=== PATIENT | female | born 1970 | race Two or more races ===

== ENCOUNTER 2024-09-18 23:53 | Emergency (ER) | payer MEDICARE, MEDICAID, SELFPAY ==
[2024-09-18 23:55] VITALS: BP 171/85; PULSE 79; TEMP 37.2; O2SAT 98; BMI 28.2
--- NOTE | 2024-09-19 00:14 | ED.FALL1 ---
HPI HPI - Fall General Chief Complaint: Fall Stated Complaint: Fall Time Seen by Provider: 09/18/24 23:59 Source: patient Mode of arrival: ambulance Limitations: no limitations History of Present Illness HPI Narrative: past history of paralysis of her lower extremities. Describes an infection of her spine. Resides at assisted. States her left leg recovered first and then her right. states the right leg is smaller than the left due to the late development in regaining use of the right leg She now ambulates with a walker. States she was standing with the walker and stretching her right leg when she fell with her right knee flexed . complains of pain of her right ankle and right tibia. denies pain of her right femur or her hips . Denies injury elsewhere. Denies injury to her head or back or upper extremities. Here to have her right lower extremity evaluated Related Data Allergies Allergy/AdvReac Type Severity Reaction Status Date / Time No Known Drug Allergies Allergy Verified 09/19/24 00:22 Opioid HPI Opioid Management Most Recent Pain and Opioid Data: No Data to Display Review of Systems ROS Status of ROS 10 or more systems reviewed and unremarkable except as noted in history and below PFSH PFSH Social History Little interest or pleasure in doing things: not at all Feeling down, depressed, or hopeless: not at all Exam Constitutional Vital Signs, click to edit/add: Last Vital Signs Temp 99 F 09/18/24 23:55 Pulse 79 09/18/24 23:55 Resp 18 09/18/24 23:55 BP 125/62 09/19/24 03:42 Pulse Ox 98 09/18/24 23:55 O2 Del Method Room Air 09/18/24 23:55 Common normals: no apparent distress, average body habitus, oriented x3, no limitations, healthy appearing, alert and well nourished [facility] Common normals: normocephalic and head/scalp atraumatic Neck & C-Spine Common normals: full ROM Respiratory Common normals: normal respiratory effort, no retractions, no use of accessory muscles and clear to auscultation bilaterally Cardio Common normals: regular rate, regular rhythm, S1 normal heart sound and S2 normal heart sound GI Common normals: Normal to inspection, nondistended, normoactive bowel sounds present, soft to palpation and non-tender Extremity Other: mild tenderness right lat tibia and right medial ankle. no swelling, discoloration or deformity right leg is smaller than left Neuro Common normals: oriented x3, CN's II-XII intact bilaterally and moves all extremities Psych Appearance: grossly normal Course Vital Signs Vital signs: Vital Signs Temperature 99 F 09/18/24 23:55 Pulse Rate 79 09/18/24 23:55 Respiratory Rate 18 09/18/24 23:55 Blood Pressure 171/85 H 09/18/24 23:55 Pulse Oximetry 98 09/18/24 23:55 Oxygen Delivery Method Room Air 09/18/24 23:55 Temperature 99 F 09/18/24 23:55 Pulse Rate 79 09/18/24 23:55 Respiratory Rate 18 09/18/24 23:55 Blood Pressure 125/62 09/19/24 03:42 Pulse Oximetry 98 09/18/24 23:55 Oxygen Delivery Method Room Air 09/18/24 23:55 MDM - Fall MDM Narrative Medical decision making narrative: patient fell at assisted and injured right leg and ankle. xray with nondisplaced fracture of the proximal fibular. Patient informed of the above. Leg placed in a splint and patient discharged home to followup with orthopedics Imaging Data Chest x-ray: Radiologist's impression: ITS Impressions Ankle X-Ray 09/19/24 00:19 IMPRESSION: No acute fracture. Probable small reactive ankle mortise effusion. Electronically authenticated by: SHAINA FIGUEROA Date: 09/19/2024 03:49 Tibia/Fibula X-Ray 09/19/24 00:19 IMPRESSION: 1. Proximal right fibular fracture as described. Electronically authenticated by: Arnel BARONE Date: 09/19/2024 03:16 Discharge Plan Discharge Chief Complaint: Fall Clinical Impression: Closed right fibular fracture Patient Disposition: Home, Self-Care Mode of Transportation: EMS Print Language: Upper Sorbian Instructions: Leg Fracture (ED) Additional Instructions: follow up with Dr hawkins Referrals: LEYDI CERRATO [Primary Care Provider] - 1 week Procedures ED Procedure Instructions Procedures Procedures: proximal right fibular fracture. Long leg # 4 fiber glass splint applied and held in place with scarlet bandages. Patient tolerated well. N/V intact
--- NOTE | 2024-09-19 00:19 | XR_ITS ---
The [address] [address] Patient Name: GEOVANNY MEJÍA MRN: [id number] date: 1970 Sex: F Assigned Patient Location: ER Current Patient Location: ED.MAIN Accession/Order Number: [id number] Exam Date: 09/19/2024 00:30 Report Date: 09/19/2024 03:16 At the request of: CANDICE CERDA Procedure: XR tibia fibula RT 2V EXAM: XR tibia fibula RT 2V HISTORY: injury COMPARISON: None. TECHNIQUE: 2 views of the right tibia and fibula were obtained. FINDINGS: There is a mildly displaced fracture through the proximal right fibular diametaphysis. There are mild degenerative changes of the right knee. There is no significant right ankle joint effusion. XR/XR tibia fibula RT 2V IMPRESSION: 1. Proximal right fibular fracture as described. Electronically authenticated by: Arnel BARONE Date: 09/19/2024 03:16
--- NOTE | 2024-09-19 00:19 | XR_ITS ---
The [address] [address] Patient Name: GEOVANNY MEJÍA MRN: [id number] date: 1970 Sex: F Assigned Patient Location: ER Current Patient Location: ED.MAIN Accession/Order Number: [id number] Exam Date: 09/19/2024 00:30 Report Date: 09/19/2024 03:49 At the request of: CANDICE CERDA Procedure: XR ankle RT min 3V EXAM: XR ankle RT min 3V HISTORY: injury COMPARISON: None. TECHNIQUE: 2 view right ankle FINDINGS: No acute fracture. No acute subluxation or dislocation. Soft tissue swelling overlying lateral malleolus. Remaining soft tissues are intact. There is suggestion of nonlayering joint effusion or ankle mortise. Osseous demineralization. No destructive or erosive bone changes. XR/XR ankle RT min 3V IMPRESSION: No acute fracture. Probable small reactive ankle mortise effusion. Electronically authenticated by: SHAINA FIGUEROA Date: 09/19/2024 03:49
[2024-09-19] MEDS: OXYCODONE HCL/ACETAMINOPHEN 5MG/325MG 2 TAB PO ×2 (00:42→08:37)
[2024-09-19] MEDS: ORPHENADRINE CITRATE 100 MG TABLET.ER PO (02:30)
[2024-09-19 03:42] VITALS: BP 125/62
== END 2024-09-19 09:44 | disposition home or self-care (01) ==
PROVIDERS: Emergency Provider Internal Medicine; PCP Family Medicine
DX: S82.401A Unspecified fracture of shaft of right fibula, initial encounter for closed fracture (principal); W19.XXXA Unspecified fall, initial encounter
CPT/HCPCS: 29505; 73590; 73610; 99283

== ENCOUNTER 2024-11-08 10:51 | Outpatient (OUT) | payer MEDICARE, MEDICAID, SELFPAY ==
--- NOTE | 2024-11-08 | XR_ITS ---
[address] [address] Patient Name: GEOVANNY MEJÍA MRN: [id number] date: 1970 Sex: F Assigned Patient Location: Current Patient Location: Accession/Order Number: [id number] Exam Date: 11/08/2024 10:55 Report Date: 11/09/2024 09:03 At the request of: SONAM BELL Procedure: XR tibia fibula RT 2V PROCEDURE: XR tibia fibula RT 2V COMPARISON: 09/19/2024 HISTORY: RIGHT LOWER LEG PAIN FINDINGS: BONES:Stable healing proximal fibular neck fracture. Suspected subacute distal posterior tibial/posterior malleolus fracture. Interval bone formation with incomplete bony bridging. Moderate degenerative changes of the knee and hindfoot. Permeative pattern of the hindfoot suggest developing osteopenia SOFT TISSUES:Negative. No visible soft tissue swelling. EFFUSION:None visible. OTHER: Negative. XR/XR tibia fibula RT 2V IMPRESSION: Stable healing proximal fibular Suspected subacute posterior malleolus fracture Electronically authenticated by: NIURKA DOMINIQUE Date: 11/09/2024 09:03
== END 2024-11-08 10:52 | disposition home or self-care (01) ==
LOC: EC 10:51
PROVIDERS: PCP Family Medicine; Visit Provider Orthopaedic Surgery
DX: S82.391D Other fracture of lower end of right tibia, subsequent encounter for closed fracture with routine healing (principal)
CPT/HCPCS: 73590

== ENCOUNTER 2024-12-06 08:49 | Outpatient (OUT) | payer MEDICARE, MEDICAID, SELFPAY ==
--- NOTE | 2024-12-06 | XR_ITS ---
[address] [address] Patient Name: GEOVANNY MEJÍA MRN: [id number] date: 1970 Sex: F Assigned Patient Location: Current Patient Location: Accession/Order Number: [id number] Exam Date: 12/06/2024 08:55 Report Date: 12/06/2024 13:43 At the request of: SONAM BELL Procedure: XR tibia fibula RT 2V PROCEDURE: XR tibia fibula RT 2V COMPARISON: None. HISTORY: RIGHT LOWER LEG PAIN FINDINGS: BONES:Stable healing proximal fibular metadiaphyseal fracture with slight increase in bone formation and bony bridging. Contour deformity of the distal tibia suspicious for subacute fracture. No new fracture or dislocation. Degenerative changes of the knee and ankle SOFT TISSUES:Negative. No visible soft tissue swelling. EFFUSION:None visible. OTHER: Negative. XR/XR tibia fibula RT 2V IMPRESSION: Stable healing fractures Electronically authenticated by: NIURKA DOMINIQUE Date: 12/06/2024 13:43
--- OUTSIDE RECORDS SUMMARY | 2024-12-06 09:09 | XMS_ITS | CCD ---
Author Organization [facility] CliniSyny Care Team Providers Care Furniture Assembler Name Role Phone System, Provider Not In Primary Care Provider Un available SYSTEM, PROVIDER NOT IN Primary Care Unavaila ble ANETA VALDERRAMA Attending Unavailable None, Physician Primary Care Provider None, Physician Other Provider MD David Elena Admit Provider [phone] Darrell (ID)MD Jaret Other Provider MD Alec Clemons Other Provider [phone] MD Troy Garber Attending Provider DO Valeriy Cantu Jr Other Provider SYSTEM, PROVIDER NOT IN Primary Care Unavaila JASVIR Lainez Attending Unavaila ble SYSTEM, PROVIDER NOT IN Primary Care Unavaila SHA Servin Attending Unavailable SYSTEM, PROVIDER NOT IN Primary Care Unavaila SHA Servin Attending Unavailable SYSTEM, PROVIDER NOT IN Primary Care Unavaila ble BEA GUNDERSON Attending Unavailab le None, Physician Primary Care Provider None, Physician Other Provider MD David Elena Admit Provider Darrell (ID)MD Jaret Other Provider MD Alec Clemons Other Provider MD Troy Garber Attending Provider [phone] DO Valeriy Cantu Jr Other Provider David Elena Admitting Unavailable Troy Garber Attending Unavailable None Primary Care Unavailable Alec Clemons Consulting Unavailable Valeriy Cantu Jr Consulting Unavailable None Consulting Unavailable Darrell (ID), Jaret Hayes Consulting Unavaila ble Aneta Valderrama MD Unavailable Eliana Francois [facility] Unavailable Unavailable SAQIB, RUGEN M Primary Care Physician NI OCHOA Attending Unavailable MD Zac Garrett Admitting Unavailable Fahad Brannon Attending Unavailable SAQIB, RUGEN M Referring Unavailable KASSIE LORI N Referring Unavailable LORI FERNANDO N Attending Unavailable ADAN, JARON Admitting Unavailable ANTIONETTE, JARON Attending Unavailable CONSULT, SURGERY - NEURO Consulting Unavail able PERCY HUFF Admitting Unavailable DAVID ELENA Referring Unavailable RAIZA JENNINGS Attending Unavailable RAJENDRA OLIVER Attending Unavailable RAJENDRA OLIVER Referring Unavailable ELSAGHIR, MOSHE Referring Unavailable ELGAFY, ERICK Referring Unavailable ELY, ERICK Attending Unavailable ELSAGHIR, HEND Referring Unavailable LUISA HOGUE Attending Unavailable ELSAGHIR, HEND Referring Unavailable ELGAFY, ERICK Attending Unavailable ELSAGHIR, HEND Attending Unavailable ELGAFY, ERICK Attending Unavailable PATEL BEYER Attending Unavailable ELGABelindaY, ERICK Attending Unavailable LUISA HOGUE Attending Unavailable Ni Ochoa DO Unavailable [phone] SAQIB, RUGEN M Referring Unavailable SAQIB, RUGEN M Primary Care Unavailable REF PROV, NOT IN SYSTEM Referring Unavaila ble NO PCP, NO PCP Primary Care Unavailable REF PROV, NOT IN SYSTEM Referring Unavaila ble NO PCP, NO PCP Primary Care Unavailable SAQIB, RUGEN M Referring Unavailable SAQIB, RUGEN M Primary Care Unavailable ELVIA BHATIA Referring Unavailable SAQIB, RUGEN M Primary Care Unavailable NI CANO Attending Unav ailable SAQIB, RUGEN M Primary Care Unavailable NI CANO Attending Unav ailable NI CANO Referring Unav ailable SAQIB, RUGEN M Primary Care Unavailable Allergies Allergy Classification Reported Allergen(s) Allergy Type Date of Onset Reaction(s) Facility (1 source) No Known Medication Allergies; Translations: [No Known Medication Allergies] Propensity to adverse reactions (disorder) [facility] Repository (1 source) atorvastatin; Translations: [ATORVASTATIN] Drug Allergy 5 [facility] Repository (1 source) levoFLOXacin; Translations: [LEVOFLOXACIN] Drug Allergy 4 [facility] Repository Medications Current Medications Medication Drug Class(es) Dates Sig (Normalized) Sig (Original) acetaminophen 650 mg oral tablet (18 sources) Start: 02-05-2024 take 650 mg by mouth every four hours as needed for pain acetaminophen 650 mg, Oral, q4hr, PRN as needed for pain, Refills(s) 0 Start Date: 02/05/24 Status: Ordered Start: 10-06-2023 take 2 tablets by mo uth every six hours as needed acetaminophen (Tylenol) 325 MG tablet Take 650 mg by mouth every 6 (six) hours if needed 10/06/2023 Active Start: 10-06-2023 take 3 tablets by mo uth every six hours Acetaminophen 325 MG tablet Take 3 tablets by mouth every 6 hours. 0 10/06/2023 Active [id number] 200 actuat albuterol 0.09 mg/actuat metered dose inhaler (13 sources) beta2-Adrenergic Agonist take 1-2 puff(s ) by inhalation every six hours albuterol HFA 90 mcg/act inhaler Inhale 1-2 puffs every 6 (six) hours if needed Active 120 actuat albuterol 0.1 mg/actuat / ipratropium bromide 0.02 mg/actuat inhalation spray (1 source) Anticholinergic, beta2-Adrenergic Agonist Start: 02-05-20 take 1 puff(s) by inhalation four times daily Combivent Respimat 20 mcg-100 mcg 1 puff(s), Inhalation, QID, 4 gram, Refill(s) 0 Start Date: 02/05/24 Status: Ordered ALPRAZolam 0.5 mg oral tablet (20 sources) Benzodiazepine Start: 09-09-20 End: 01-16-20 take 1 tablet by mouth in the morning ALPRAZolam (Xanax) 1 MG tablet Indications: Anxiety Take 1 tablet (1 mg) by mouth in the morning and 1 tablet (1 mg) before bedtime. 60 tablet 3 09/18/2024 01/16/2025 Active Start: 09-09-2024 End: 01-21-2025 take 1 tablet by mouth every twelve hours for anxiety and anxiety ALPRAZolam (Xanax) 0.5 MG tablet Indications: Anxiety Take 1 tablet (0.5 mg) by mouth every 12 (twelve) hours 60 tablet 2 10/23/2024 01/21/2025 Active Start: 02-05-2024 take 1 mg by mouth once daily Xanax 1 mg, Oral, Daily, Refills(s) 0 Start Date: 02/05/24 Status: Ordered End: 09-09-2024 take 4 tablets by mouth in the morning ALPRAZolam (Xanax) 1 MG tablet Take 4 mg by mouth in the morning and 4 mg before bedtime. 09/09/2024 Discontinued baclofen 20 mg oral tablet (14 sources) gamma-Aminobutyric Acid-ergic Agonist Start: 03-08-2024 take 1 tablet by mouth in the morning, then take 1 tablet by mouth in the evening, then take 1 tablet by mouth at bedtime baclofen (Lioresal) 20 MG tablet Take 20 mg by mouth in the morning and 20 mg in the evening and 20 mg before bedtime. 03/08/2024 Active Start: 02-05-2024 take 10 mg by mouth three times daily as needed for muscle spasms baclofen 10 mg, Oral, TID, PRN Spasm, Refills(s) 0 Start Date: 02/05/24 Status: Ordered bisacodyl 10 mg rectal suppository (4 sources) Stimulant Laxative Start: 10-06-2023 take 10 mg rectal route every twenty-four hours as needed bisacodyl 10 MG Suppository suppository Insert 1 suppository rectally daily as needed for Constipation. 0 10/06/2023 Active Cholecalciferol (18 sources) Vitamin D Start: 02-05-2024 take 25 ug by mouth once daily cholecalciferol 25 mcg, Oral, Daily, Refills(s) 0 Start Date: 02/05/24 Status: Ordered Start: 10-02-2023 take 1 tablet by devon once daily cholecalciferol 50 MCG (2000 UNIT) tablet Take 1 tablet by mouth daily. 0 10/02/2023 Active take 1 capsule by mo [facility] in the morning cholecalciferol (Vitamin D-3) 25 MCG (1000 UT) capsule Take 25 mcg by mouth in the morning. Active cyclobenzaprine hydrochloride 5 mg oral tablet (4 sources) Muscle Relaxant Start: 10-06-2023 take 1 tablet by mouth three times daily as needed for muscle spasms Cyclobenzaprine 5 MG tablet Take 1 tablet by mouth 3 times daily as needed for Muscle spasms. 0 10/06/2023 Active docusate sodium 100 mg oral capsule (13 sources) take 1 capsule by mouth in the morning Docusate Sodium (DSS) 100 MG capsule Take 100 mg by mouth in the morning and 100 mg in the evening. Active doxycycline hyclate 100 mg oral tablet (17 sources) Tetracycline-c lass Drug Start: 02-05-2024 take 100 mg by mouth at bedtime doxycycline 100 mg, Oral, Bedtime, Refills(s) 0 Start Date: 02/05/24 Status: Ordered Start: 01-23-2024 take 2 capsules by m outh once daily doxycycline (Vibramycin) 100 MG capsule Take 200 mg by mouth Daily 01/23/2024 Active Start: 11-22-2023 End: 12-22-2023 take 1 capsule by mouth twice daily doxycycline hyclate 100 MG capsule Take 1 capsule by mouth 2 times daily. 60 capsule 0 11/22/2023 12/22/2023 Active escitalopram 20 mg oral tablet (5 sources) Serotonin Reuptake Inhibitor Start: 02-05-2024 take 20 mg by mouth once daily escitalopram 20 mg, Oral, Daily, Refills(s) 0 Start Date: 02/05/24 Status: Ordered Start: 10-02-2023 take 1 tablet by devon once daily Escitalopram 10 MG tablet Take 1 tablet by mouth daily. 0 10/02/2023 Active 72 hr fentaNYL 0.075 mg/hr transdermal system (15 sources) Opioid Agonist Start: 11-25-2024 End: 12-25-2024 fentaNYL (DURAGESIC) 75 MCG/HR Indications: Chronic pain syndrome Place 1 patch over 72 hours on the skin every 3rd (third) day 10 patch 11/25/2024 12/25/2024 Active Start: 10-23-2024 End: 12-22-2024 fentaNYL (DURAGESIC) 50 MCG/ HR Indications: Chronic pain syndrome Place 1 patch over 72 hours on the skin every 3rd (third) day 10 patch 11/22/2024 11/25/2024 Discontinued Start: 09-29-2024 End: 10-29-2024 fentaNYL (DURAGESIC) 75 MCG/ HR Indications: Chronic pain syndrome Place 1 patch over 72 hours on the skin every 3rd (third) day 10 patch 09/29/2024 10/23/2024 Discontinued (Side effects) Start: 09-20-2024 End: 10-20-2024 fentaNYL (DURAGESIC) 50 MCG/ HR Indications: Severe pain Place 1 patch over 72 hours on the skin every 3rd (third) day 10 patch 09/20/2024 10/20/2024 Active ferrous sulfate 325 mg oral tablet (1 source) Start: 02-05-2024 take 325 mg by mouth once daily ferrous sulfate 325 mg, Oral, Daily, Refills(s) 0 Start Date: 02/05/24 Status: Ordered gabapentin 600 mg oral tablet (20 sources) Anti-epileptic Agent Start: 02-05-2024 take 400 mg by mouth twice daily gabapentin 400 mg, Oral, BID, Refills(s) 0 Start Date: 02/05/24 Status: Ordered Start: 02-05-2024 take 600 mg by mouth three times daily gabapentin 600 mg, Oral, TID, Refills(s) 0 Start Date: 02/05/24 Status: Ordered gabapentin (NEUR ONTIN) 800 MG tablet ammonium lactate 120 mg/ml topical lotion (4 sources) Start: 10-01-2023 ammonium lacta te 12 % Lotion lotion rub in to affected area well 0 10/01/2023 Active Lidocaine (18 sources) Antiarrhythmic, Amide Local Anesthetic Start: 02-05-2024 lidocaine 4% patch 1 patch(es), Topical, Daily, Refill(s) 0 Start Date: 02/05/24 Status: Ordered Start: 10-01-2023 apply 1 dose transde rmal route once daily Lidocaine 4 % patch Place 1 patch on the skin 1 (one) time each day at the same time 10/01/2023 Active Start: 10-01-2023 lidocaine 4 % patch Place 1 patch on skin every 24 hours. Max of 12 hours of application then remove. 0 10/01/2023 Active melatonin 3 mg oral tablet (4 sources) Start: 10-01-2023 take 2 tablets by mouth at bedtime Melatonin 3 MG tablet Take 2 tablets by mouth at bedtime. 0 10/01/2023 Active methocarbamol 500 mg oral tablet (14 sources) Muscle Relaxant Start: 01-17-2024 methocarbamol (Robaxin) 500 MG tablet Take 500 mg by mouth in the morning and 500 mg at noon and 500 mg in the evening and 500 mg before bedtime. 01/17/2024 Active naloxone hydrochloride 40 mg/ml nasal spray (10 sources) Opioid Antagonist Start: 09-18-2024 End: 09-18-2025 naloxone (Narcan) 4 mg/0.1 mL nasal spray Indications: Severe pain Administer 1 spray (4 mg) into affected nostril(s) if needed for opioid reversal May repeat every 2-3 minutes if needed, alternating nostrils, until medical assistance becomes available. 2 each 09/18/2024 09/18/2025 Active Start: 08-06-2023 naloxone (NARC AN) 4 mg/actuation [place] Administer 1 spray into one nostril for known or suspected opioid overdose. If patient worsens or does not respond, may repeat in 2-3 minutes. . 2 each 0 08/06/2023 Active [place]-3 oral capsule (1 source) Start: 02-05-2024 take 1 capsule by mouth once daily [place]-3 oral capsule See Instructions, Refill(s) 0, 1000mg oral daily Start Date: 02/05/24 Status: Ordered ondansetron 4 mg oral tablet (14 sources) Serotonin-3 Receptor Antagonist Start: 02-05-2024 take 4 mg by mouth every six hours as needed for nausea Zofran 4 mg, Oral, q6hr, PRN as needed for nausea/vomiting, Refills(s) 0 Start Date: 02/05/24 Status: Ordered take 1 tablet by devon th every eight hours as needed ondansetron (Zofran) 4 MG tablet Take 4 mg by mouth every 8 (eight) hours if needed Active oxacillin 1000 mg injection (3 sources) Penicillin-class Antibacterial Start: 10-07-2023 End: 11-21-2023 Oxacillin Sodium injection Administer 6 g IV every 12 hours as a continuous infusion (Total daily dose: 6 g). *diluent and final concentration at discretion of receiving pharmacy* Potential end date 11/21/23. Do not stop until instructed by infectious disease. 45 Each 0 10/07/2023 11/21/2023 Active oxyCODONE hydrochloride 5 mg oral tablet (20 sources) Opioid Agonist Start: 10-23-2024 End: 12-22-2024 take 1 tablet by mouth every six hours for pain oxyCODONE (Roxicodone) 5 MG immediate release tablet Indications: Chronic pain syndrome Take 1 tablet (5 mg) by mouth every 6 (six) hours if needed for severe pain 120 tablet 11/22/2024 12/22/2024 Active Start: 09-18-2024 End: 11-03-2024 take 1 tablet by mouth every eight hours for pain oxyCODONE (Roxicodone) 10 MG immediate release tablet Indications: Chronic pain syndrome Take 1 tablet (10 mg) by mouth every 8 (eight) hours if needed for severe pain 90 tablet 10/04/2024 10/23/2024 Discontinued (Side effects) Start: 09-18-2024 End: 10-18-2024 take 1 tablet by mouth every six hours for pain oxyCODONE (Roxicodone) 10 MG immediate release tablet Indications: Severe pain Take 1 tablet (10 mg) by mouth every 6 (six) hours if needed for severe pain 120 tablet 09/18/2024 10/18/2024 Active Start: 08-18-2024 End: 09-17-2024 take 1 tablet by mouth every four hours for pain oxyCODONE (Roxicodone) 10 MG immediate release tablet Indications: Severe pain Take 1 tablet (10 mg) by mouth every 4 (four) hours if needed for severe pain 180 tablet 08/18/2024 09/17/2024 Active Start: 08-11-2024 End: 09-10-2024 take 1.5 tablets by mouth every four hours for pain oxyCODONE (Roxicodone) 10 MG immediate release tablet Indications: Severe pain Take 1.5 tablets (15 mg) by mouth every 4 (four) hours if needed for severe pain 270 tablet 08/11/2024 09/10/2024 Active Start: 02-05-2024 take 1 tablet by devon th every four hours oxycodone See Instructions, 10 mg (1.5 tabs for total of 15mg)Oral q4hr, Refills(s) 0 Start Date: 02/05/24 Status: Ordered End: 10-23-2024 take 1 tablet by mouth every four hours, then take 10 mg by mouth every twelve hours oxyCODONE ER (OxyCONTIN) 10 MG 12 hr tablet Take 15 mg by mouth every 4 (four) hours if needed 10/23/2024 Discontinued (Side effects) pantoprazole 40 mg extended release oral tablet (14 sources) Proton Pump Inhibitor Start: 02-05-2024 take 40 mg by mouth once daily pantoprazole 40 mg, Oral, Daily, Refills(s) 0 Start Date: 02/05/24 Status: Ordered Start: 10-02-2023 take 1 tablet by devon th before mealtime pantoprazole (ProtoNix) 40 MG EC tablet Take 40 mg by mouth in the morning. Take before meals. 10/02/2023 Active PARoxetine hydrochloride 20 mg oral tablet (13 sources) Serotonin Reuptake Inhibitor Start: 02-09-2024 take 1 tablet by mouth once daily PARoxetine (Paxil) 20 MG tablet Take 20 mg by mouth Daily 02/09/2024 Active Miralax (5 sources) Osmotic Laxative Start: 02-05-2024 MiraLax 1 packet(s), Oral, Daily, Refill(s) 0 Start Date: 02/05/24 Status: Ordered Start: 10-02-2023 take 1 dose by mouth once daily Polyethylene glycol 17 g Pack packet Take 1 packet by mouth daily. 0 10/02/2023 Active topiramate 50 mg oral tablet (13 sources) Start: 03-08-2024 topiramate 50 MG tablet 50 mg Daily 03/08/2024 Active Completed/Discontinued Medications Medication Drug Class(es) Dates Sig (Normalized) Sig (Original) diclofenac sodium 0.01 mg/mg topical gel (1 source) Nonsteroidal Anti-inflammatory Drug Start: 02-05-2024 Voltaren Gel 1% Gel 4 gm, Topical, Daily, Refill(s) 0 Start Date: 02/05/24 Status: Ordered Problems Active Problems Problem Classification Problem Date Documented Date Episodic/Chronic Acquired foot deformities (2 sources) Foot drop, unspecified foot; Translations: [Foot drop, unspecified foot] Onset: 07-21-2024 Episodic Anxiety disorders (4 sources) Anxiety; Translations: [Anxiety disorder, unspecified] 02-05-2024 Chronic Asthma (4 sources) Asthma; Translations: [Unspecified asthma, uncomplicated] 09-13-2023 Chronic Deficiency and other anemia (2 sources) Normocytic normochromic anemia; Translations: [Anemia, unspecified] 09-13-2023 Episodic Deficiency and other anemia (2 sources) Anemia, unspecified; Translations: [Anemia, unspecified] 09-18-2023 Episodic E Codes: Fall (2 sources) Fall Onset: 11-15-2023 Esophageal disorders (1 source) Gastroesophageal reflux disease 02-05-2024 Chronic Essential hypertension (4 sources) Hypertensive disorder; Translations: [Essential (primary) hypertension] 09-13-2023 Chronic Infective arthritis and osteomyelitis (except that caused by tuberculosis or sexually transmitted disease) (7 sources) Osteomyelitis; Translations: [Osteomyelitis of vertebra, cervical region] Onset: 11-11-2023 02-05-2024 Chronic Nutritional deficiencies (4 sources) Deficiency of macronutrients; Translations: [Unspecified severe protein-calorie malnutrition] 09-13-2023 Chronic Osteoarthritis (1 source) Osteoarthritis 02-05-2024 Chronic Osteoporosis (1 source) Age-related osteoporosis without current pathological fracture; Translations: [Age-related osteoporosis without current pathological fracture] Onset: 10-13-2024 Chronic Other acquired deformities (1 source) Lumbar spondylolisthesis; Translations: [Spondylolisthesis, lumbar region] 08-28-2023 Episodic Other acquired deformities (2 sources) Spondylolisthesis, lumbar region; Translations: [Spondylolisthesis, lumbar region] Onset: 08-28-2023 Episodic Other circulatory disease (1 source) History of endocarditis 02-05-2024 Episodic Other [employer] infection and poliomyelitis (10 sources) Epidural abscess; Translations: [Extradural and subdural abscess, unspecified] 09-13-2023 Episodic Other connective tissue disease (2 sources) Presence of other bone and tendon implants; Translations: [Presence of other bone and tendon implants] Onset: 2024 Chronic Other nervous system disorders (2 sources) Other chronic pain; Translations: [Other chronic pain] Onset: 09-01-2023 Chronic Other nervous system disorders (4 sources) Spinal cord compression; Translations: [Unspecified cord compression] Onset: 10-06-2023 10-06-2023 Chronic Other nervous system disorders (13 sources) Myelomalacia; Translations: [Other specified diseases of spinal cord] Onset: 03-24-2024 03-24-2024 Chronic Other nervous system disorders (13 sources) Polyneuropathy; Translations: [Polyneuropathy, unspecified] Onset: 03-24-2024 03-24-2024 Chronic Other nervous system disorders (6 sources) Chronic pain syndrome; Translations: [Chronic pain syndrome] 09-29-2024 Chronic Other nutritional; endocrine; and metabolic disorders (2 sources) Hypocalcemia; Translations: [Hypocalcemia] 09-13-2023 Chronic Other nutritional; endocrine; and metabolic disorders (2 sources) Hypocalcemia; Translations: [Hypocalcemia] 09-18-2023 Chronic Peritonitis and intestinal abscess (10 sources) Abdominal abscess; Translations: [Peritoneal abscess] Onset: 09-07-2023 09-13-2023 Episodic Residual codes; unclassified (4 sources) Severe pain; Translations: [Pain, unspecified] 09-18-2024 Episodic Septicemia (except in labor) (4 sources) Bacteremia caused by Gram-positive bacteria; Translations: [Sepsis due to Methicillin susceptible Staphylococcus aureus] 09-10-2023 Episodic Spondylosis; intervertebral disc disorders; other back problems (20 sources) Sacroiliitis, not elsewhere classified; Translations: [Other intervertebral disc degeneration, lumbar region] Onset: 08-06-2023 Chronic Substance-related disorders (1 source) Smoker 02-05-2024 Chronic Comment on above: Added secondary to d ocumentation in Social History. Unclassified (2 sources) Vertebral osteomyelitis Onset: 02-18-2024 Past or Other Problems Problem Classification Problem Date Documented Da te Episodic/Chronic Bacterial infection; unspecified site (20 sources) Bacteremia; Translations: [Bacteremia] Onset: 10-06-2023 09-10-2023 Episodic Deficiency and other anemia (4 sources) Anemia; Translations: [Anemia, unspecified] Onset: 09-21-2023 09-21-2023 Episodic E Codes: Fall (1 source) Unspecified fall, initial encounter; Translations: [Unspecified fall, initial encounter] Onset: 11-15-2023 Episodic Fluid and electrolyte disorders (12 sources) Hyponatremia; Translations: [Hypo-osmolality and hyponatremia] Onset: 09-21-2023 Resolved: 10-06-2023 09-13-2023 Episodic Other connective tissue disease (13 sources) Neuropathic pain; Translations: [Neuralgia and neuritis, unspecified] Onset: 03-24-2024 03-24-2024 Episodic Other infections; including parasitic (2 sources) Unspecified infectious disease; Translations: [Unspecified infectious disease] Onset: 09-18-2023 Episodic Other non-traumatic joint disorders (2 sources) Pain in right knee; Translations: [Pain in right knee] Onset: 12-17-2023 Episodic Other non-traumatic joint disorders (2 sources) Effusion, right knee; Translations: [Effusion, right knee] Onset: 12-17-2023 Episodic Residual codes; unclassified (2 sources) Pain; Translations: [Pain] Onset: 04-21-2024 Episodic Spondylosis; intervertebral disc disorders; other back problems (20 sources) Lumbar radiculopathy; Translations: [Radiculopathy, lumbar region] Onset: 08-06-2023 08-28-2023 Episodic Unclassified (4 sources) Onset: 10-06-2023 10-06-2023 Results Test Name Value Interpretation Reference Range Facility DEXA SCAN CENTRAL SKELETALon 10-13-2024 DEXA SCAN CENTRAL SKELETAL DEXA SCAN CENTRAL SKELETAL DEXA SCAN CENTRAL SKELETAL: 10/13/2024 8:42 AM CLINICAL: Post menopausal. Exam/Technique: DEXA Scan (Dual Energy X-ray Absorptiometry) Findings: PA Lumbar Spine: BMD: 1.330 g/cm2. T-score: 1.1 Left Femoral neck: BMD 0.712 g/cm2. T-score: -2.3 Right Femoral neck: BMD 0.575 g/cm2. T-score: -3.3 Fracture Risk: According to FRAX, 10 year probability of any major osteoporosis-related fracture is 28.8%, 10 year probability of hip fracture is 15.1 % IMPRESSION: * Osteoporosis. ___ PLEASE NOTE * T-score compares patient BMD to a reference of young normal controls. World Health Organization Classification: Osteoporosis: T-score=-2.5 or below. Osteopenia (low bone mass): T-score between -1.0 and -2.5. Normal: T-score -1.0 or above. Secondary causes of bone loss should be evaluated if clinically indicated since the etiology of low BMD cannot be determined by BMD measurement alone. The current national osteoporosis Foundation guide recommends treating patient's with FRAX10 year risk score of greater than or equal to 3% for hip fracture or greater than or equal to 20% for major osteoporotic fracture, to reduce their fracture risk. Finalized by Aron Escamilla MD on 10/13/2024 6:44 PM Normal [facility] 36on 08-31-2024 36 [facility] center called and needs note from 07/21 amended for the pre-cert on AFO brace. The note needs to state: -AFO brace for foot drop. - Brace needed to help patient with daily activities, (due to fall risk.) -Length of time the brace is needed.... 6months, 1yr, lifetime. -Has to be electronic signed. Please fax revised note to [phone] They are unable to move forward with brace without this in note. Normal [facility] Follow-Upon 07-21-2024 Follow-Up [id number] Geovanny Mejía 1970 Provider Department Center 07/21/2024 266-ERICK SIMENTAL MP ORTHO MPORTHO Family History Family history unknown: Yes Level of Service:72934 [place] OFFICE/OUTPATIENT ESTABLISHED LOW MDM 20 MIN (GC) Reason for Visit and Comments: Pain [136] - Neck pain also Follow-up [945102] - Neck pain also Normal [facility] 37on 2024 37 Continue to monitor for signs and symptoms of infection including fever, chills, shortness of breath, chest pain, abdominal pain, nausea, vomiting and diarrhea. Neck, back pain. Call our office if you notice any of these or go to the ED if needing to Normal [facility] Abstracton 2024 Abstract [id number] Geovanny Mejía 1970 Provider Department Center 2024 [id number] [facility] Family History Family history unknown: Yes Normal [facility] C-REACTIVE PROTEINon 024 C REACTIVE PROTEIN (MG/L) IN SER/PLAS 2.4 mg/L Normal 0.0-7.0 [facility] Comment on above: Performed By: #### L [id number] ####[facility] ([facility])[address] [place] [address] Follow-Upon 2024 Follow-Up [id number] Geovanny Mejía 1970 F Date Provider Department Center 2024 PATEL LLOYD [facility] INF Carlo Heal Family History Family history unknown: Yes Level of Service:53679 [place] OFFICE/OUTPATIENT ESTABLISHED LOW MDM 20 MIN Reason for Visit and Comments: Vertebral osteomyelitis [Other] Normal [facility] Orders Onlyon 2024 Orders Only [id number] Geovanny Mejía 1970 F Date Provider Department Center 2024 MILAD HOLLAND [facility] INF Carlo Heal Family History Family history unknown: Yes Normal [facility] SEDIMENTATION RATEon 024 SEDIMENTATION RATE, ERYTHROCYTE 10 mm/hr Normal <=20 [facility] Comment on above: Performed By: #### L [id number] #### [facility] ([facility]) [address] [place] [address] Follow-Upon 04-21-2024 Follow-Up [id number] Geovanny Mejía 1970 F Date Provider Department Center 04/21/2024 ERICK KILLIAN MP ORTHO MPORTHO Family History Family history unknown: Yes Level of Service:33023 [place] OFFICE/OUTPATIENT ESTABLISHED LOW MDM 20 MIN Reason for Visit and Comments: Follow-up [459062] Pain [136] Normal [facility] 36on 02-18-2024 36 Spoke to Lacey. All questions answered. [facility] 36 Will call when available. Normal [facility] 36 Provider calling asking the nurse return a call to her personal line so things can be discussed. Normal [facility] 36 Returned call and left detailed message for Lacey. [facility] 36 She is to wear brace during activity to stabilize spine, reduce pain and prevent further injury. There is a phone number on the prescription they need to call to schedule an appointment to be fitted. This was explained at visit. Will call when available. [facility] 36 States patient was given an order for a TLSO and she is wondering why now since her surgery was so long ago. She also needs to know where she is supposed to get one from. [facility] Follow-Upon 02-18-2024 Follow-Up [id number] Geovanny Mejía 1970 F Date Provider Department Center 02/18/2024 [facility] IN[facility] Carlo Heal Family History Family history unknown: Yes Level of Service:71752 [place] OFFICE/OUTPATIENT ESTABLISHED LOW MDM 20 MIN Reason for Visit and Comments: Vertebral osteomyelitis [Other] [facility] Telephoneon 02-18-2024 Telephone [id number] Geovanny Mejía 1970 F Date Provider Department Center 02/18/2024 266-ERICK SIMENTAL NWO ORTHO [facility] Family History Family history unknown: Yes Reason for Visit and Comments: Order clarification [Other] [facility] Follow-Upon 02-11-2024 Follow-Up [id number] Geovanny Mejía 1970 F Date Provider Department Center 02/11/2024 266-ERICK SIMENTAL MP ORTHO [facility] Family History Family history unknown: Yes Level of Service:62168 [place] OFFICE/OUTPATIENT ESTABLISHED LOW MDM 20 MIN () Reason for Visit and Comments: Follow-up [221426] - CT results Follow-up [324701] - CT results [facility] Consent for Treatmenton 01-22 Consent for Treatment [id number]# 1.00TIFF [facility] Consultation Noteon 02-05-20 Consultation Note Patient is presentin g with complaints of neck and low back pain as well as bilateral lower extremity weakness that has been present after developing abscesses in her spine and she does have a longstanding history of unknown autoimmune issue with recurrent abscesses that have now progressed to her spine and she has persistent pain that she rates as an 8/10 typically throughout her whole back and bilateral lower extremities. She is on significant her medications that she finds somewhat helpful and is frequently going in physical therapy however due to her active infection we discussed that there are very limited options from a pain perspective. It appears that she is on appropriate medication we recommend her to continue these with her current prescribing physician. We discussed that it would be very reasonable to for her to continue with her follow-up with her spine spine surgeon for evaluation and we can consider other interventions once this infection has resolved for her. PAYAM Score: 73% PHQ-2: 6 Patient denies any symptoms of progressively worsening upper/lower extremity weakness, progressively worsening gait abnormality, new onset bowel/bladder incontinence/ urinary retention. She does have a history of cauda equina syndrome that is not new and not progressing. No new or worsening symptoms of fever, chills, night sweats. 14 Point Review of systems negative unless otherwise noted. General: No acute distress. Patient appears well-nourished. HEENT: Head is normocephalic and external ears are normal in appearance. Cardiovascular: No signs of poor perfusion and no peripheral edema Pulmonary: Nonlabored breathing, symmetric chest movement. GI: Abdomen nondistended Integumentary: No lesions Musculoskeletal: See below Neurologic: Alert, oriented x3. 5/5 strength grossly in the bilateral upper extremities. Sensation intact to light touch in the bilateral upper extremities. Significantly diminished strength in bilateral lower extremities with minimal motion and near contracture of the right lower extremity with little motion in the left lower extremity. Special Testing: Negative Narendra sign bilaterally. History, physical examination, and personal review of pertinent imaging results indicate a diagnosis of: -Cervical lumbar spine osteomyelitis -Cauda equina syndrome, chronic not affecting bowel or bladder but does affect bilateral lower extremities towards weakness and spasticity that is still present Plan: -Lengthy discussion with the patient and caregiver was present, discussed that it be very reasonable to continue on the current medications that she is on and if her prescribing physician feels it appropriate can continue to adjust any of these medications as needed to address her pain, we did recommend avoiding, prescribing opioid medication with benzodiazepines -Can follow-up on as-needed basis no acute intervention available at this time due to history of active infection Patient was counseled on the above diagnosis and treatment, all questions were answered and patient agrees to adhere to the plan above. Risk and benefits of appropriate procedures and medications were reviewed as well with patient, who voiced understanding and agreeance. Patient was counseled on appropriate use of opioids if prescribed or renewed today and naloxone was offered to patient if opioids were prescribed or maintained at this visit. PHQ-2 scoring reviewed with patient and discussed seeking treatment for depression or mood disorder as appropriate. Patient was counseled on smoking cessation and/or continuing to abstain from nicotine/tobacco products as appropriate based on history; as smoking/nicotine can contribute to increased pain overall and decreased wound healing. Patient counseled on maintaining a healthy BMI as part of the total treatment of their pain and to reduce stress/strain on joints. Patient invited to return or call with any questions or concerns that arise. [facility] Comment on above: Result Comment: Elec tronically Signed By: Fahad Brannon DO.br\Date and Time Signed: 02/05/24 10:29 EDT HIPAA Forms Officeon 024 HIPAA Forms Office [id number]#[address] [facility] Legal Correspondence Officeo n 02-05-2024 Legal Correspondence Office [id number]#1.[address] [facility] Legal Correspondence Office [id number]#1.[address] [facility] Office/Clinic Note-Physician on 02-05-2024 Office/Clinic Note-Physician [id number]#1.[address] [facility] Patient Correspondenceon Patient Correspondence [id number]#[address] [facility] Patient Correspondence [id number]#[address] [facility] Patient Correspondence [id number]#1.0 0TIFF Normal [facility] Patient Correspondence [id number]#1.0 0TIFF Normal [facility] Patient Correspondence [id number]#1.0 0TIFF Normal [facility] Patient Correspondence [id number]#1.0 0TIFF Normal [facility] Patient History Officeon Patient History Office [id number]#1.0 0TIFF Normal [facility] C-REACTIVE PROTEINon 024 C REACTIVE PROTEIN (MG/L) IN SER/PLAS 11.5 mg/L High 0.0-7.0 [facility] Comment on above: Performed By: #### L [id number] ####[facility] ([facility])[address] [place] [address] CBC WITH AUTO DIFFERENTIALon 01-21-2024 Basophils (Bld) [#/Vol] 0.02 10*3/uL Normal 0.00-0.20 [facility] Comment on above: Performed By: #### L [id number] #### [facility] ([facility]ER) [address] [place] [address] Basophils/100 WBC (Bld) 0.4 % Normal 0.0-1.0 [facility] Comment on above: Performed By: #### L [id number] #### [facility] ([facility]) [address] [place] [address] Eosinophils (Bld) [#/Vol] 0.15 10*3/uL Normal 0.00-0.50 [facility] Comment on above: Performed By: #### L [id number] #### [facility] ([facility]) [address] [place] [address] Eosinophils/100 WBC (Bld) 2.7 % Normal 0.0-6.0 [facility] Comment on above: Performed By: #### L [id number] #### [facility] [address] [place] [address] Erythrocyte distribution width (RBC) [Ratio] 18.3 % High 11.5-15.0 [facility] Comment on above: Performed By: #### L [id number] #### [facility] ([facility]) [address] [place] [address] ERYTHROCYTE MEAN CORPUSCULAR HEMOGLOBIN CONCENTRATION (G/DL) BY AUTOMATED 31.8 g/dL Low 32.0-35.0 [facility] Comment on above: Performed By: #### L [id number] #### [facility] ([facility]) [address] [place] [address] Hematocrit (Bld) [Volume fraction] 38.4 % Normal 36.0-48.0 [facility] Comment on above: Performed By: #### L [id number] #### [facility] ([facility]) [address] [place] [address] Hemoglobin (Bld) [Mass/Vol] 12.2 g/dL Normal 12.0-15.0 [facility] Comment on above: Performed By: #### L [id number] #### [facility] ([facility]) [address] [place] [address] Immature granulocytes (Bld) [#/Vol] 0.01 10*3/uL Normal 0.00-0.20 [facility] Comment on above: Performed By: #### L [id number] #### [facility] ([facility]) [address] [place] [address] Immature granulocytes/100 WBC (Bld) 0.2 % Normal 0.0-1.0 [facility] Comment on above: Performed By: #### L [id number] #### [facility] [address] [place] [address] Lymphocytes (Bld) [#/Vol] 1.88 10*3/uL Normal 1.20-4.00 [facility] Comment on above: Performed By: #### L [id number] #### [facility] [address] [place] [address] Lymphocytes/100 WBC (Bld) 33.9 % Normal 20.0-45.0 [facility] Comment on above: Performed By: #### L [id number] #### [facility] [address] [place] [address] MCH (RBC) [Entitic mass] 24.5 pg Low 27.0-33.0 [facility] Comment on above: Performed By: #### L [id number] #### [facility] ([facility]) [address] [place] [address] MCV (RBC) [Entitic vol] 77.1 fL Low 82.0-98.0 [facility] Comment on above: Performed By: #### L [id number] #### [facility] ([facility]) [address] [place] [address] Monocytes (Bld) [#/Vol] 0.34 10*3/uL Normal 0.10-1.00 [facility] Comment on above: Performed By: #### L [id number] #### [facility] [address] [place] [address] Monocytes/100 WBC (Bld) 6.1 % Normal 5.0-12.0 [facility] Comment on above: Performed By: #### L [id number] #### [facility] [address] [place] [address] Neutrophils (Bld) [#/Vol] 3.14 10*3/uL Normal 1.60-7.60 [facility] Comment on above: Performed By: #### L [id number] #### [facility] [address] [place] [address] Neutrophils/100 WBC (Bld) 56.7 % Normal 40.0-72.0 [facility] Comment on above: Performed By: #### L [id number] #### [facility] ([facility]) [address] [place] [address] NRBC (PER 100 WBCS) BY AUTOMATED COUNT 0.0 % Normal 0 [facility] Comment on above: Performed By: #### L [id number] #### [facility] [address] [place] [address] PLATELETS (10*3/UL) IN BLOOD AUTOMATED COUNT 266 10*3/uL Normal 150-400 [facility] Comment on above: Performed By: #### L [id number] #### [facility] ([facility]) [address] [place] [address] RBC (Bld) [#/Vol] 4.98 10*6/uL Normal 3.80-5.00 [facility] Comment on above: Performed By: #### L [id number] #### [facility] ([facility]) [address] [place] [address] WBC (Bld) [#/Vol] 5.54 10*3/uL Normal 4.00-10.60 [facility] Comment on above: Performed By: #### L [id number] #### [facility] ([facility]) [address] [place] [address] Follow-Upon 01-21-2024 Follow-Up [id number] Geovanny Mejía 1970 F Date Provider Department Center 01/21/2024 LUISA JOHNSON C INF Carlo Heal Family History Family history unknown: Yes Level of Service:69446 [place] OFFICE/OUTPATIENT ESTABLISHED LOW MDM 20 MIN Reason for Visit and Comments: MSSA bacteremia [Other] Normal [facility] Orders Onlyon 01-21-2024 Orders Only [id number] Geovanny Mejía 1970 F Date Provider Department Center 01/21/2024 MILAD HOLLAND [facility] INF Carlo Heal Family History Family history unknown: Yes Normal [facility] SEDIMENTATION RATEon 024 SEDIMENTATION RATE, ERYTHROCYTE 18 mm/hr Normal <=20 [facility] Comment on above: Performed By: #### L [id number] ####[facility] ([facility])[address] [place] [address] CT LUMBAR SPINE WO CONTon CT LUMBAR SPINE WO CONT CT LUMBAR SPINE WO CONT History: Patient reports inability to move legs normally. Lumbar disc degeneration. History of spinal abscess. Past history of lumbar surgery and osteomyelitis of cervical and lower thoracic spine. Exam/Technique: Noncontrast images of the complete lumbar spine with sagittal and coronal reconstructions. Comparison: Lumbar radiographs from 11/15/2023 Findings: There is approximately 6 mm of right lateral offset set of L2 on L3. 6 mm of anterolisthesis of L4 on L5 and just approximately 2 mm of retrolisthesis of L1 on L2, L2 on L3, and L3 on L4. At T10-T11, the superior margin of this study sclerotic change and irregularity to vertebral endplates displayed. Degenerative appearing endplate irregularity with more lymph nodes is displayed at T11-T12. There is moderate disc space narrowing at L2-L3, severe disc space narrowing at L3-L4, and severe partial disc space narrowing at L4-L5. Degenerative changes include disc bulging and facet degeneration with at least moderate to severe stenosis at L2-L3 and L3-L4, and mild stenosis at L5-S1.. At L4-L5 disc bulge, facet degeneration and posterior spurring resulting in very high-grade stenosis with near complete obstruction of the spinal canal, and apparent severe bilateral foraminal stenosis. IMPRESSION: Degenerative changes with multilevel disc space narrowing and including very high-grade spinal stenosis at L4-L5. All CT scans at this facility use dose modulation, iterative reconstruction, and/or weight based dosing when appropriate to reduce radiation dose to as low as reasonably achievable. Finalized by Richi Jensen MD on 12/26/2023 11:04 AM Normal [facility] CT THORACIC SPINE WO CONTon 12-25-2023 CT THORACIC SPINE WO CONT CT THORACIC SPINE WO CONT EXAM: CT THORACIC SPINE WO CONT INDICATION: Spinal abscess (CMS-HCC); Annular tear of thoracic disc COMPARISON: MR T-spine dated 11/11/2023 TECHNIQUE: Standard noncontrast thoracic/spine axial CT images obtained with generation of coronal and sagittal reformats. All CT scans at this facility use dose modulation, iterative reconstruction, and/or weight based dosing when appropriate to reduce radiation dose to as low as reasonably achievable. FINDINGS: Alignment: Thoracic kyphosis appears preserved. Mild thoracic dextroconvexity could be positional. Vertebral Body Heights: There is mild degree of vertebral body height loss, intervertebral disc space narrowing, and anterior osteophyte formation from T4 to T10. There are sclerotic/erosive endplate changes most prominent from T4-T7 and T8-T10, compatible with sequela of destructive infectious process characterized on comparison thoracic spine MRI. Extensive prevertebral soft tissue thickening extending from approximately T4-T9 T10. This may represent prevertebral edema, phlegmon, or abscess. Evaluation is significantly limited without contrast. Spinal levels: No high-grade spinal canal stenosis. Multilevel [id number] neural foraminal stenosis is present at T2-T3 on the left T3-T4 bilaterally, T4-T5 on the right, T5-T6 bilaterally, T6-T7 on the right, T8-T9 bilaterally and T10-T11 on the right. Prior left T9 and T10 laminectomy. Likely Schmorl's node at T11-T12. Lung Apices: The partially visualized pulmonary parenchyma appears normal. IMPRESSION: Erosive/sclerotic osseous degradation from T4 to T10, likely sequela of osteomyelitis characterized on comparison MR. Significant prevertebral soft tissue thickening may be secondary to prevertebral edema, phlegmon, or abscess. Evaluation is significantly limited without contrast. Consider further evaluation with contrast-enhanced MRI of the thoracic spine. Approved by Resident: Micha Corona MD on 12/25/2023 10:33 AM IConor have personally reviewed the image(s) and agree with and/or edited the report Finalized by Conor Balbuena on 12/25/2023 2:51 PM Normal [facility] GENERAL PROCEDUREon 12-24-19 LAVELLE Ponce - 12/24/2023 11:18 AM EST IR PROCEDURE NOTE- Tunneled Central Line Removal PROCEDURE PERFORMED BY: LAVELLE Ponce Assisted by: Syl Castro RN PROCEDURE PERFORMED: Tunneled Right Internal Jugular catheter removal LOCATION: In 260 PREOPERATIVE DIAGNOSIS(ES): Methicillin susceptible Staphylococcus aureus infection as the cause of diseases classified elsewhere [B95.61] POSTOPERATIVE DIAGNOSIS(ES): MSSA bacteremia s/p completion of antibiotic and tunneled central line removal PROCEDURE DETAILS, FINDINGS AND PLAN: Indication: completion of treatment Local anesthetic: 3 mL 1% lidocaine The procedure, its risks and benefits were discussed in detail with the patient and/or family. Written informed consent obtained. Time out: Prior to the procedure a time out was performed in the presence of the patient and all personnel involved in this case. The patient identity, procedure type, procedure side/site, and allergies were verified. The tunneled Right Internal Jugular catheter was prepped and draped in the usual sterile manner. The cuff was bluntly dissected and gently freed from the tissue. Catheter was removed in its entirety. Pressure was held to the venotomy site, the catheter tunnel and the exit site until hemostasis was achieved. Triple antibiotic ointment and an occlusive dressing was placed. The patient tolerated the procedure well without any complications. Findings: The tunnel appeared non-infected. Plan/Disposition: The patient was discharged home in stable condition, having tolerated the procedure well without any complications. Thank you for allowing Interventional Radiology to participate in this patient's care. LAVELLE Ponce 12/24/2023 11:19 AM SPECIMEN(S) REMOVED: Tunneled Right Internal Jugular catheter DISPOSITION OF SPECIMEN(S): biohazard ESTIMATED BLOOD LOSS: < 2 mL COMPLICATIONS: None [facility] Radiology Study observation (narrative) [facility] VENOUS ACCESS REMOVALon 11-26 VENOUS ACCESS REMOVAL EXAM: IR VENOUS ACCESS REMOVAL, 12/24/2023 11:55 AM CLINICAL INDICATIONS: Bacteremia s/p antibiotic treatment Tax Manager: LAVELLE Ponce Local anesthetic: Lidocaine 1% 3mL. A time-out was performed. Informed, written consent was obtained. ..................... .................... TECHNIQUE: Position: The patient was positioned semi-upright on their bed. The Right chest and right internal jugular indwelling catheter were prepped and draped. Procedure: The suture was cut. The cuff of the right internal jugular tunneled catheter was gently freed from the tissue. The catheter was withdrawn and pressure was held over the entry point of the catheter into the vein and over the subcutaneous tunnel. Hemostasis was maintained with pressure. The catheter tip was sent to the lab at the request of the referring service. Triple antibiotic ointment and an occlusive dressing was applied over the former catheter exit. COMPLICATIONS: There was no active bleeding or other complications. ESTIMATED BLOOD LOSS: trace. FINDINGS: The tunnel appeared non-infected. The entire catheter was removed intact. IMPRESSION: Successful removal of a right internal jugular tunneled double lumen power line catheter. I personally viewed and interpreted these images and I have reviewed and approved this report. Table formatting from the original result was not included. Meds Meds Event Details User 11:06 AM 12/24/23 Timeout: Sign-in Signed by Syl Castro RN at 12/24/2023 11:06 AM AD 11:15 AM 12/24/23 Lidocaine 1% (PF) (XYLOCAINE MPF) 1 % injection 3 mL Given Rate: 0 Route: Infiltration Physician Physician Event Details User 11:06 AM 12/24/23 Timeout: Sign-in Signed by Syl Castro RN at 12/24/2023 11:06 AM AD [facility] IMPRESSION: Successful removal of a right internal jugular tunneled double lumen power line catheter. I personally viewed and interpreted these images and I have reviewed and approved this report. OLOGY EXAM: IR VENOUS ACCESS REMOVAL, 12/24/2023 11:55 AM CLINICAL INDICATIONS: Bacteremia s/p antibiotic treatment Tax Manager: LAVELLE Ponce Local anesthetic: Lidocaine 1% 3mL. A time-out was performed. Informed, written consent was obtained. ..................... .................... TECHNIQUE: Position: The patient was positioned semi-upright on their bed. The Right chest and right internal jugular indwelling catheter were prepped and draped. Procedure: The suture was cut. The cuff of the right internal jugular tunneled catheter was gently freed from the tissue. The catheter was withdrawn and pressure was held over the entry point of the catheter into the vein and over the subcutaneous tunnel. Hemostasis was maintained with pressure. The catheter tip was sent to the lab at the request of the referring service. Triple antibiotic ointment and an occlusive dressing was applied over the former catheter exit. COMPLICATIONS: There was no active bleeding or other complications. ESTIMATED BLOOD LOSS: trace. FINDINGS: The tunnel appeared non-infected. The entire catheter was removed intact. RADIOLOGY Renny Flowers MD - 12/24/2023 EXAM: IR VENOUS ACCESS REMOVAL, 12/24/2023 11:55 AM CLINICAL INDICATIONS: Bacteremia s/p antibiotic treatment Tax Manager: LAVELLE Ponce Local anesthetic: Lidocaine 1% 3mL. A time-out was performed. Informed, written consent was obtained. ..................... .................... TECHNIQUE: Position: The patient was positioned semi-upright on their bed. The Right chest and right internal jugular indwelling catheter were prepped and draped. Procedure: The suture was cut. The cuff of the right internal jugular tunneled catheter was gently freed from the tissue. The catheter was withdrawn and pressure was held over the entry point of the catheter into the vein and over the subcutaneous tunnel. Hemostasis was maintained with pressure. The catheter tip was sent to the lab at the request of the referring service. Triple antibiotic ointment and an occlusive dressing was applied over the former catheter exit. COMPLICATIONS: There was no active bleeding or other complications. ESTIMATED BLOOD LOSS: trace. FINDINGS: The tunnel appeared non-infected. The entire catheter was removed intact. IMPRESSION IMPRESSION: Successful removal of a right internal jugular tunneled double lumen power line catheter. I personally viewed and interpreted these images and I have reviewed and approved this report. [facility] Radiology Study observation (narrative) [facility] VENOUS ACCESS REMOVALOrdered By: Renny Flowers on 12-24-2023 [facility] Work Phone: Office Visiton 12-17-2023 Follow-up visit [id number] Geovanny Mejía 1970 F Date Provider Department Center 12/17/2023 ERICK KILLIAN [facility]O Family History Family history unknown: Yes Level of Service:43076 [place] OFFICE/OUTPATIENT NEW LOW MDM 30 MINUTES Reason for Visit and Comments: Pain [136] Normal [facility] 36on 12-12-2023 36 Okay thanks Normal [facility] Orders Onlyon 12-12-2023 Orders Only [id number] Geovanny Mejía 1970 F Date Provider Department Center 12/12/2023 [facility] Carlo Heal Family History Family history unknown: Yes Normal [facility] Office Visiton 12-11-2023 Follow-up visit [id number] Geovanny Mejía 1970 F Date Provider Department Center 12/11/2023 [facility] Carlo Heal Family History Family history unknown: Yes Level of Service:32285 [place] OFFICE/OUTPATIENT ESTABLISHED MOD MDM 30 MIN Reason for Visit and Comments: Osteomyelitis [167] Normal [facility] Outside Records Officeon Outside Records Office [id number]# 1.00TIFF [facility] Referrals Officeon Referrals Office [id number]# 1.00TIFF Normal [facility] XR FEMUR RT 2+ VIEWSon 11-15 XR FEMUR RT 2+ VIEWS XR FEMUR RT 2+ VIEW S HISTORY: Pain, fall COMPARISON: None FINDINGS: Multiple views of the right femur were obtained. Osseous structures are intact with normal alignment. Tricompartmental osteoarthritis of the knee. Right-sided sacroiliitis. No acute soft tissue abnormality. IMPRESSION: * No acute abnormality. Finalized by Mario Tillman MD on 11/15/2023 6:43 AM Normal [facility] XR HIP RT 2-3 VIEWS W OR WO PELVISon 11-15-2023 XR HIP RT 2-3 VIEWS W OR WO PELVIS XR HIP RT 2-3 VIEWS W OR WO PELVIS HISTORY: Right hip pain COMPARISON: None FINDINGS: AP pelvis and AP and frog-leg views of the right hip were obtained. No acute fracture or malalignment. Degenerative changes involving the lower lumbar spine. Right sacroiliitis. Vascular calcifications in the pelvis. IMPRESSION: * No acute osseous abnormality. * Right sacroiliitis. Finalized by Mario Tlilman MD on 11/15/2023 6:40 AM Normal [facility] XR SPINE LUMBAR 2 OR 3 VWSon 11-15-2023 XR SPINE LUMBAR 2 OR 3 VWS XR SPINE LUMBAR 2 OR 3 VWS HISTORY: Pain, fall COMPARISON: Lumbar spine MRI 11/11/2023 FINDINGS: Multiple views of the lumbar spine were obtained. Grade 1 anterolisthesis at L4-L5. Vertebral body height and alignment is otherwise maintained. Degenerative disc disease is greatest at L3-L4 where there is greatest loss of disc height as well as endplate sclerosis. Lower lumbar facet arthropathy. No traumatic spondylolysis. Right sacroiliitis. Moderate stool burden. IMPRESSION: * No acute fracture or malalignment. Finalized by Mario Tillman MD on 11/15/2023 6:39 AM Normal [facility] XR TIBIA FIBULA RT MIN 2 VWS on 11-15-2023 XR TIBIA FIBULA RT MIN 2 VWS XR TIBIA FIBULA RT MIN 2 VWS HISTORY: Pain, fall COMPARISON: None FINDINGS: Multiple views of the right lower leg were obtained. Osseous structures are intact with normal alignment. Tricompartmental osteoarthritis of the knee. No significant soft tissue swelling. IMPRESSION: * No acute abnormality. Finalized by Mario Tillman MD on 11/15/2023 6:42 AM Normal [facility] MR CERVICAL SPINE W WO CONTo n 11-11-2023 MR CERVICAL SPINE W WO CONT MR CERVICAL SPINE W WO CONT History: [Osteomyelitis.] [Procedure: Standard MR of the thoracic spine was obtained before and after intravenous administration 16 mL ProHance gadolinium contrast without reported complication.] Findings: There is no prior MR of the thoracic spine available for comparison. MR of the spine before and after contrast administration demonstrates that the craniovertebral junction and visualized portions of the posterior cranial fossa are unremarkable. Postsurgical changes are present at C5 and C6 due to anterior screw and plate fixation. This somewhat limits evaluation of these levels with MR. ] The C2 to-3 and C3-4 levels are grossly unremarkable. At C4-5 there is left foraminal stenosis. At C5-6 to the operative site appears grossly unremarkable without fluid collection. There is no significant spinal or foraminal stenosis. At C6-7 there is bulging of the disc or central disc herniation with at least moderate spinal stenosis.. Bilateral C6-7 foraminal stenoses are likely worse on the left. The C7-T1 level is grossly unremarkable. Incidental note is made of soft tissue edema and enhancement in the left posterior paraspinal soft tissues extending to nearly the skin. There is no well-defined abscess. This may be a postsurgical change as the contrast enhancement likely extends into the left T2 laminectomy defect. Impression: [There is no definite osteomyelitis of the cervical spine. Moderates spinal stenosis at C6-7 is likely due to disc bulge or herniation. Multiple foraminal stenoses are described above.] Finalized by Rigo Portillo MD on 11/11/2023 4:11 PM Normal [facility] MR LUMBAR SPINE W WO CONTon 11-11-2023 MR LUMBAR SPINE W WO CONT MR LUMBAR SPINE W WO CONT History: [Osteomyelitis.] [Procedure: Standard MR of the thoracic spine was obtained before and after intravenous administration 16 mL ProHance gadolinium contrast without reported complication.] Findings: There is no prior MR of the thoracic spine available for comparison. MR of the spine before and after contrast administration demonstrates ]numerous bones with increased STIR signal and pathologic contrast enhancement that are suspicious for osteomyelitis and infection. Diminished T1 signal at the inferior aspect of T9, T10, and T11 are associated with intense contrast enhancement. There is high signal within the slightly atrophic cord at T10-11, suggestive of myelomalacia. Please see MR thoracic spine report. The tip of the conus medullaris terminates at the upper L1 level. The T12-L1, L1-2 levels are grossly unremarkable. At L2-3 there is moderate to high-grade spinal stenosis due to degenerative changes of the facet joints and bulging disc. There is no pathologic contrast enhancement at this level. Abnormal signal within the L3 and L4 vertebral bodies adjacent to the disc is also associated with significant contrast enhancement. Moderate to high-grade spinal stenosis is due to degenerative changes of the facet joints and bulging disc. The contrast enhancement at L3-4 also extends within the disc anterior to the thecal sac and out the right L3-4 foramen. At L4-5 abnormal signal within the superior L5 vertebral body and, to a lesser extent, in the inferior aspect of the L4 vertebral body are associated with contrast enhancement. There is no high T2 signal or contrast-enhancement within the L4-5 disc. There is significant contrast enhancement surrounding the thecal sac at L4-5 and in the paravertebral regions extending to abut the psoas muscles. The pathologic contrast enhancement also extends posteriorly into the paraspinous muscles adjacent to the facet joints, which appear to be partially destroyed and also extending out the left L4-5 foramen. High-grade spinal stenosis is present at L4-5. At L5-S1 there is pathologic contrast enhancement of the posterior elements, especially the facets and within both L5-S1 foramina. Contrast enhancing material surrounds the small thecal sac, especially on its left lateral aspect where there may be infection extending from the left facet joint. Abnormal signal within the right sacroiliac region, especially the sacrum, has contrast enhancement and may be another focus of infection. Impression: [Extensive abnormalities with pathologic contrast enhancement may well be due to multifocal osteomyelitis, involving the T10-T11 level with cord impingement; the L3-4 level; the L4-5 level; the L5-S1 level; and the region of the right sacroiliac joint area Significant spinal stenosis is present at multiple levels, including L2-3, L3-4, L4-5 and L5-S1] Finalized by Rigo Portillo MD on 11/11/2023 2:24 PM Normal [facility] MR THORACIC SPINE W WO CONTo n 11-11-2023 MR THORACIC SPINE W WO CONT MR THORACIC SPINE W WO CONT *ADDENDUM*Addendum: IMPRESSION: Contrast enhancement is present within the subcutaneous fat and paraspinous muscles at the T2-3 level, that extends into what appears to be laminectomy defect on the left, and also posteriorly from approximately T8-T11. Finalized by Rigo Portillo MD on 11/11/2023 4:14 PM Normal [facility] Physician Query Reporton Physician Query Report Please respond to this Physician Query by marking X by the answer you deem appropriate! Thank you [facility] Medical Records Patient: GEOVANNY MEJÍA [address] : 1970 [place], [place] [address] Location: [address] [place] [address] Unit #: [id number] Physician Query Report Craig Rodriguez DO Patient Name: GEOVANNY MEJÍA Date of : 1970 Account: [id number] Admit Date: 09/08/2023 Discharge Date: 09/18/2023 Facility: [facility] -------- Dear Troy Garber Charles, INT Please make sure your documentation and/or discharge summary is edited to reflect the query response This query is being sent for conflicting documentation of septicemia and bacteremia. CLINICAL INDICATORS: SIRS WBC (<4,000 if new or >12,000):_ 24.9, 18.2 Temp ( >100.8): 09/13 101.4 Infection source: Retroperitoneal abscess; fluid and blood cultures Staph Aureus ORGAN DYSFUNCTION: None Based on your medical judgement with review of the documentation, can you please clarify the medical diagnosis/condition/p rocedure by MARKING the check box (es): ( ) Severe sepsis due to __MUST FILL IN__ with __MUST FILL IN ORGAN DYSFUNCTION__. (x ) Sepsis ruled out, Bacteremia only ( ) Other Thank you, Laurel Wolfe BSN, RN Clinical Chief Dog License Inspector [email or web address] This query is a communication tool used for clarification of a document to capture accurate clinical data, reflect intent, and clinical thought process in the health record that accurately depicts patient's care and treatment during the hospital stay. [facility] Sepsis criteria: Documentation of infection or suspected infection Plus: Temperature >100.8 Pulse >90 Respirations >20 WBC >12,000 or <4,000 Plus 1 organ dysfunction related to infection: Lactate >2 INR >1.5 not on Coumadin Platelet Count <100,000 Creatinine >2 Bilirubin >2 Urine output <0.5ml/kg/hr. for 2 hours SBP <90 MAP <65 Need for invasive or non-invasive mechanical ventilation Decrease in SBP more than 40 from the last normal BP reading -------- Query Creator: Laurel Wolfe (10/15/2023 02:46:36 PM EST) -------- Entered by: Laurel Wolfe on Report Signed by: Craig Rodriguez DO on 10/23/23 0856 < > Co-Signer: on Normal [facility] Pharmacy Daily Noteon 2022 Pharmacy Daily Note [facility] Medical Records Patient: GEOVANNY MEJÍA[address] : 1970 [place] [address] Location: [phone] Unit #: [id number] Pharmacy Daily Note Hugo J Caprella Service Dt/Tm: 09/12/23 2171 Pharmacy - Patient Information Patient Information: Name: GEOVANNY MEJÍA Age/Sex: 53 F Admit Date: 09/08/23 Admit Dx: INTRA ABDOMINAL ABCESS. Vital Signs: Vital Signs - 8 hr 09/12/23 16:22 99.6 F 104 H 20 118/67 92 2.0 09/12/23 12:34 98.5 F 98 16 118/66 93 Pharmacy Consult - Vancomycin Consulting Physician: Ankush Infectious Diagnosis: intra abdominal abscess Dosing Weight: 66kg Antibiotic Regimen: Antimicrobial: Date Initiated: Date Completed: Vanc 09/12 Cefazolin 09/10 xvanc 09/08 09/09 xzosyn 09/08 09/10 Assessment: Vancomycin AUC/MILKA Dosing Dosing Model: 1 compartment Goal AUC/MILKA: mg-hr/L Date: sCr: CrCL: Current Orders: Level 1: Level 2: AUC24: Dose Change: 09/12/23 0.57 97.43 --- --- --- --- Vanc 1500mg x1 then 1000mg q12h L 09/08/23 0.63 88 vanc 1500mg x1 --- --- --- vanc 1000m q12h Plan: vanc 1500mg x1, then vanc 1000mg q12h Predicted AUC24: TBD mg-hr/L Next Level(s): 09/13 @ 0900 Notes: 09/12 Patient with retroperitoneal abscess. Vancomycin restarted for gram positive cocci preliminary in blood cultures collected 09/11 and worsening leukocytosis. Previous cultures from 09/08 resulting in MSSA. Patient febrile 09/11 with tmax 100.7 but has been afebrile since. Renal function has remained stable. Will give vanc 1500mg loading dose, followed by vanc 1000mg q12h maintenance dose. Will obtain level 09/13 @ 0900 following first maintenance dose. -sjc 09/08 Pt started on broad spectrum abx empirically for possible intra abdominal abscess. S/P drain placement per IR, culture received. BC ordered. Will give vanc 1500mg loading dose, followed by vanc 1000mg q12h. Level in am. -ER Data: Temperature 99.6 F Lab Results WBC 23.3 H 29.8 H 31.4 H BUN 16 15 17 Creatinine 0.54 L 0.55 L 0.57 L Microbiology 09/11/23 13:40 Blood,Venous - Pending 09/11/23 13:40 Blood,Venous Blood Culture - Preliminary Gram positive cocci- clusters 09/11/23 13:35 Blood,Venous - Pending 09/11/23 13:35 Blood,Venous Blood Culture - Preliminary Gram positive cocci- clusters 09/08/23 15:46 Abdominal fluid Gram Stain - Final 09/08/23 15:46 Abdominal fluid Body Fluid Culture - Preliminary Staphylococcus aureus 09/08/23 18:20 Blood,Venous - Pending 09/08/23 18:20 Blood,Venous Blood Culture - Final Staphylococcus aureus Staphylococcus epidermidis 09/08/23 18:15 Blood,Venous - Final 09/08/23 18:15 Blood,Venous Blood Culture - Final Staphylococcus aureus 09/08/23 Unknown Perianal MRSA Screen - Final No growth of MRSA after 2 days. Entered by: Hugo French on 09/12/23 1709 Report Signed by: Hugo French on 10/15/23 1536 < > Co-Signed by: Charity Adames on 10/16/23 0723 < > Normal [facility] Pharm[facility] Daily Noteon 2022 Pharmacy Daily Note [facility] Medical Records Patient: GEOVANNY MEJÍA [address] : 1970 [place], [place] [address] Location: [address] [place] [address] Unit #: [id number] Pharmacy Daily Note [facility] Service Dt/Tm: 09/13/23 1405 Pharmacy - Patient Information Patient Information: Name: GEOVANNY MEJÍA Age/Sex: 53 F Admit Date: 09/08/23 Admit Dx: INTRA ABDOMINAL ABCESS. Vital Signs: Vital Signs - 8 hr Pharmacy Consult - Vancomycin Consulting Physician: Ankush Infectious Diagnosis: intra abdominal abscess Dosing Weight: 66kg Antibiotic Regimen: Antimicrobial: Date Initiated: Date Completed: Vanc 09/12 Cefazolin 09/10 xvanc 09/08 09/09 xzosyn 09/08 09/10 Assessment: Vancomycin AUC/MILKA Dosing Dosing Model: 1 compartment Goal AUC/MILKA: mg-hr/L Date: sCr: CrCL: Current Orders: Level 1: Level 2: AUC24: Dose Change: 09/13/23 0.72 77.13 Vanc 1000mg q12h 6 --- 347.1 No Change 09/12/23 0.57 97.43 --- --- --- --- Vanc 1500mg x1 then 1000mg q12h L 09/08/23 0.63 88 vanc 1500mg x1 --- --- --- vanc 1000m q12h Plan: Vancomycin 1000 mg q12h Predicted AUC24: TBD mg-hr/L Next Level(s): 09/14 @ 0400 Notes: 09/13 WBC 33, afebrile. SCr bumped slightly, continue 1-compartment dosing model at this time. Blood cultures growing MSSA, awaiting ID recommendations. First maintenance dose was delayed today due to patient going back to surgery this AM for epidural spinal abscess. Will adjust times of maintenance doses for closer to q12h interval. Plan for another random level to be drawn with AM labs to guide further dosing. - LB 09/12 Patient with retroperitoneal abscess. Vancomycin restarted for gram positive cocci preliminary in blood cultures collected 09/11 and worsening leukocytosis. Previous cultures from 09/08 resulting in MSSA. Patient febrile 09/11 with tmax 100.7 but has been afebrile since. Renal function has remained stable. Will give vanc 1500mg loading dose, followed by vanc 1000mg q12h maintenance dose. Will obtain level 09/13 @ 0900 following first maintenance dose. -[facility] 09/08 Pt started on broad spectrum abx empirically for possible intra abdominal abscess. S/P drain placement per IR, culture received. BC ordered. Will give vanc 1500mg loading dose, followed by vanc 1000mg q12h. Level in am. -ER Data: Temperature 97.5 F Lab Results WBC 29.8 H 31.4 H 33.0 H BUN 15 17 21 H Creatinine 0.55 L 0.57 L WBC BUN 21 H Creatinine 0.74 0.72 Microbiology 09/11/23 13:35 Blood,Venous - Pending 09/11/23 13:35 Blood,Venous Blood Culture - Preliminary Staphylococcus aureus 09/11/23 13:40 Blood,Venous - Final 09/11/23 13:40 Blood,Venous Blood Culture - Preliminary Staphylococcus aureus 09/08/23 15:46 Abdominal fluid Gram Stain - Final 09/08/23 15:46 Abdominal fluid Body Fluid Culture - Final Staphylococcus aureus 09/08/23 18:20 Blood,Venous - Final Test not indicated 09/08/23 18:20 Blood,Venous Blood Culture - Final Staphylococcus aureus Staphylococcus epidermidis 09/08/23 18:15 Blood,Venous - Final 09/08/23 18:15 Blood,Venous Blood Culture - Final Staphylococcus aureus 09/08/23 Unknown Perianal MRSA Screen - Final No growth of MRSA after 2 days. Entered by: Renae Duenas on 09/13/23 1405 Report Signed by: Renae Duenas on 10/13/23 1713 < > Co-Signed by: Charity Adames on 10/14/23 0724 < > Normal [facility] Progress Note - Antibioticso n 10-14-2023 Progress Note - Antibiotics [facility] Medical Records Patient: GEOVANNY MEJÍA [address] : 1970 [place], [place] [address] Location: [address] [place] [address] Unit #: [id number] Progress Note - Antibiotics Jaret Ramírez (ID) Service Dt/Tm: 09/15/231919 Antibiotic Note Results: The patient's postop from neurosurgery. She has had a abdominal abscess with Staphylococcus aureus which has seeded the bloodstream and the spine with epidural abscess appreciated as described. The drainage from the back has grown Staphylococcus aureus as well. The patient has been seen and evaluated for the problem as noted and according to the neurosurgical service the repeat MRI shows that the fluid in the back has reaccumulated. I reviewed the patient's case further. She has had back problems for quite some time according to her history. The patient has been seen at the facility in [place], [place] where she was noted to have significant back pain and discomfort. An operation was recommended at that time. It was decided to transfer her care to a neurological/neurosur gical service in [place], [place]. The patient was deciding whether or not to have surgery at that time when this problem occurred. This was according to her history I do not have medical records from any of these institutions to correlate the findings. Temperature 98.7 F Physical Exam General Appearance Alert,Resting Comfortably,Cooperati ve Vital Signs - 24 hr 09/15/23 19:12 98 18 125/75 95 09/15/23 18:50 72 16 121/69 93 Eyes EOMI,PERRLA ENT Normal Inspection,Pharynx Normal,Oral Mucosa Moist Skin Color Normal,Warm, Dry Cardiovascular Irregular Rhythm Lungs Abdomen Soft - Abscess drain in place draining purulent fluid,Tender to palpation,Other Neurologic A AND O x3 - Bilateral paraparesis, with intact sensation of the left lower extremity, however no sensation of the right lower extremity up to the upper thigh region. The patient has a no Babinski's. Psychological Mood AND Affect Normal Lab Results WBC 19.9 th/cmm (4.4-10.5) H 09/15/23 01:19 BUN 15 mg/dL (7-20) 09/15/23 01:19 Creatinine 0.55 mg/dL (0.60-1.30) L 09/15/23 01:19 09/13/23 16:06 Blood,Venous Blood Culture - Preliminary No growth after 2 days, cultures held 5 days. 09/13/23 15:55 Blood,Venous Blood Culture - Preliminary No growth after 2 days, cultures held 5 days. 09/13/23 05:00 Back Gram Stain - Final 09/13/23 05:00 Back Wound Culture - Preliminary Staphylococcus aureus Assessment/Plan (1) Intra-abdominal abscess: Status: Acute (2) Staphylococcus aureus septicemia: Status: Acute (3) Staphylococcus aureus infection: Status: Acute (4) Spinal epidural abscess: Status: Acute Plan * The patient is on cefazolin for Staphylococcus aureus septicemia. The repeat blood cultures have been negative x48 hours. * Unfortunate the patient has seeded the thoracic spine where she has had previous problems. The patient was noted with a thoracic spinal epidural abscess. The patient underwent hemilaminectomy T4-5 with evacuation of dorsal spinal epidural abscess; hemilaminectomy with transpedicular decompression T10 on the left side with evacuation of ventral spinal epidural abscess. * At this point of source is not under control and there may be additional foci. The last scan revealed residual amorphous fluid in the lower retroperitoneum is not amenable to percutaneous drainage . * I recommend that the patient be given serious consideration for surgical intervention to eradicate the infection in the abdomen to prevent further seeding. I am not certain the patient has cleared the infection from the initial point of source which was the abdominal abscess. * The patient has seeded the spine. With the problems as noted the patient is going to need more intervention, I suggest transfer. TE 00:30 Entered by: Jaret Ramírez (ID)MD on 09/15/231919 Report Signed by: Jaret Ramírez MD (ID) on 10/14/232012 < > Report Signed by: on Normal [facility] Progress Note - Antibioticso n 10-13-2023 Progress Note - Antibiotics [facility] Medical Records Patient: GEOVANNY MEJÍA [address] : 1970 [place], [place] [address] Location: [phone] Unit #: [id number] Progress Note - Antibiotics Jaret Ramírez (ID) MD Service Dt/Tm: 09/13/23 1523 Antibiotic Note Results: The patient is continuing to have problems. The patient has abdominal abscess with Staphylococcus aureus. Patient has septicemia stemming from the abscess. In addition to this the patient has ???Extensive abnormal paravertebral signal may represent phlegmon. This appears to involve almost the entirety of the thoracic spine from approximately T2 to T11. The patient was taken to surgery earlier this morning as noted Temperature 97.8 F Physical Exam General Appearance Alert - resting, painful,Other Eyes EOMI Skin Color Normal,Warm, Dry Cardiovascular Regular Rate and Rhythm,S1 S2 Lungs clear Abdomen Soft - mildly,Tender to palpation Neurologic Post op spontaneous movement of UE . 0/4 power in BLE. Psychological Mood AND Affect Normal Lab Results WBC 33.0 th/cmm (4.4-10.5) H 09/13/23 08:51 BUN 21 mg/dL (7-20) H 09/13/23 08:51 09/13/23 05:00 Back Gram Stain - Final 09/11/23 13:35 Blood,Venous Blood Culture - Preliminary Staphylococcus aureus 09/11/23 13:40 Blood,Venous - Final 09/11/23 13:40 Blood,Venous Blood Culture - Preliminary Staphylococcus aureus 09/08/23 15:46 Abdominal fluid Gram Stain - Final 09/08/23 15:46 Abdominal fluid Body Fluid Culture - Final Staphylococcus aureus 09/08/23 18:20 Blood,Venous - Final Test not indicated 09/08/23 18:20 Blood,Venous Blood Culture - Final Staphylococcus aureus Staphylococcus epidermidis Assessment/Plan (1) Intra-abdominal abscess: Status: Acute (2) Staphylococcus aureus septicemia: Status: Acute (3) Staphylococcus aureus infection: Status: Acute (4) Spinal epidural abscess: Status: Acute Plan * Suggest continue cefazolin for now. Vancomycin was restarted last night because the patient's repeat blood culture revealed a positive specimen. This was unnecessary as the problem is not acquisition of resistance. The problem is lack of point of source control. * I believe the patient had a problem of abscess in the abdomen Staphylococcus aureus. Has been attempting control using a percutaneous catheter rather than ablation of the area surgical drainage. This may lead to bacteremia seeding in the spinal column since he has an extensive point of inflammation throughout the entire thoracic spine. The patient was noted with a thoracic spinal epidural abscess. The patient underwent hemilaminectomy T4-5 with evacuation of dorsal spinal epidural abscess; hemilaminectomy with transpedicular decompression T10 on the left side with evacuation of ventral spinal epidural abscess. * At this point of source is not under control and there may be additional foci. * I recommend that the patient be given serious consideration for surgical intervention to eradicate the infection in the abdomen to prevent further seeding. I am not certain the patient has cleared the infection from the initial point of source which was the abdominal abscess. TE 00:30 Entered by: Jaret Ramírez (ID)MD on 09/13/231522 Report Signed by: Jaret Ramírez MD (ID) on 10/13/231942 < > Report Signed by: on Normal [facility] Progress Note - Antibioticso n 10-11-2023 Progress Note - Antibiotics [facility] Medical Records Patient: GEOVANNY MEJÍA [address] : 1970 [place], [place] [address] Location: [phone] Unit #: [id number] Progress Note - Antibiotics Jaret Ramírez (ID) Service Dt/Tm: 09/11/23 1521 Antibiotic Note Results: Patient is resting comfortably. She still has pain in the abdomen but she controls that with the [employer] pump which is beginning to make her somewhat loopy . Status post back surgery due to problems as noted Temperature 98.2 F Physical Exam General Appearance sedated Eyes EOMI Skin Color Normal Cardiovascular Regular Rate and Rhythm,S1 S2 Lungs snoring Abdomen Soft - mildly,Tender to palpation Neurologic deferred due to sedation, she does move extremities with stimulus Psychological deferred Lab Results WBC 29.8 th/cmm (4.4-10.5) H 09/11/23 04:58 BUN 15 mg/dL (7-20) 09/11/23 04:58 Creatinine 0.55 mg/dL (0.60-1.30) L 09/11/23 04:58 09/08/23 18:20 Blood,Venous Blood Culture - Final Staphylococcus aureus Staphylococcus epidermidis 09/08/23 18:15 Blood,Venous - Final 09/08/23 18:15 Blood,Venous Blood Culture - Final Staphylococcus aureus Assessment/Plan (1) Intra-abdominal abscess: Status: Acute (2) Staphylococcus aureus septicemia: Status: Acute (3) Staphylococcus aureus infection: Status: Acute Plan * Suggest continue cefazolin for now. * The patient can be switched to oral antibiotics if she is stable and the point of source of infection has been controlled. At this time the point of source has not been controlled * 09/11/23 13:35 Blood Culture Q5M x2 sets has been ordered to make sure that she has resolved this problem. If it is positive then we need to consider controlling the source before she seeds other areas due to persistent bacteremia. This would include possible endocarditis. * This patient has abdominal pain discomfort. She is resting comfortably but that is with the use of the [employer] pump. This patient may continue to be a problem which may not be managed long-term by the percutaneous catheter drainage. * The patient has back pain and she claims she cannot move her legs. I did try to assess the situation but the patient was on her [employer] pump and she was sedated to the point examination could not be performed. I suggested neuro consult. TE 00:30 Entered by: Jaret Ramírez (ID)MD on 09/11/23 1521 Report Signed by: Jaret Ramírez MD (ID) on 10/11/23 1536 < > Report Signed by: on Normal [facility] Progress Note Surgicalon Progress Note [facility] Medical Records Patient: GEOVANNY MEJ[address] : 1970 [place], [place] [address] Location: 5S [phone] Unit #: [id number] Progress Note Surgical Ryanne Morales PA-C Service Dt/Tm: 09/11/23 0814 53 year old male with intraabdominal abscess. S/P IR drainage. Brian follow. IV antibiotics. Pain worsening and [employer] started and pain better controlled. repeat CCT with improvement will continue to follow. Patient seen and examined independently by me. Below discussed and I agree with the note except where indicated. See my additional comments below. Labs, cultures, and radiographs where available were reviewed. Changes were made in the orders as necessary. I discussed patient concerns with the patient's nurse and instructions were given. Please see our orders for the updated patient care plan. Assessment/Plan (1) Back pain: Status: Acute Qualifiers: Back pain location: low back pain Chronicity: acute Back pain laterality: unspecified Sciatica presence: with sciatica Sciatica laterality: sciatica of right side Qualified Code(s): M54.41 - Lumbago with sciatica, right side (2) Sciatica: Status: Acute Qualifiers: Laterality: unspecified laterality Qualified Code(s): M54.30 - Sciatica, unspecified side (3) Retroperitoneal abscess: Status: Acute Plan Hospitalist attending Surgery consulted Patient examined. Labs and vitals reviewed. AVSS. Pain well controlled NPO with meds okay. -flatus/-BM Probably ileus. Waiting for bowel to wake up. - Continue NPO. Gum and hard candy okay. - Once passing gas, okay to begin clears. Infection disease on board for antibiotic management. Due to negative CT scan and patient presentation improving, no surgical intervention needed at this time. Continue IS, antibiotics, ambulation as tolerated, and antiemetics. Will continue to follow Subjective Date of Service: 09/11/23 Patient Information: GEOVANNY MEJÍA is a 53 yr old F who was admitted on 09/08/23 for INTRA ABDOMINAL ABCESS. Patient expresses concerns: No Patient states: denies Shortness of breath or Chest pain Pain control: Well controlled CAM Tool Confusion Assessment Method (CAM Tool) 1. Acute onset and fluctuating course Is there evidence of an acute change in mental status from the patient's baseline?: No Did the (abnormal) behavior fluctuate during the day, that is tend to come and go or increase and decrease in severity?: No 2. Inattention Did the patient have difficulty focusing attention, for example, being easily distractible or having difficulty keeping track of what was being said?: No 3. Disorganized Thinking Was the patient???s thinking disorganized or incoherent, such as rambling or irrelevant conversation, unclear or illogical flow of ideas, or unpredictable switching from subject to subject?: No 4. Altered Level Of Consciousness Would you rate the patient's level of consciousness as Vigilant (hyper alert), Lethargic (drowsy, easily aroused), Stupor (difficult to arouse), OR Coma (unarousable)?: No CAM Score Does the patient have a positive CAM score? (Yes to all questions under number 1 and 2, and Yes to question 3 or 4): No PRISME Did you utilize the PRISME method to identify, rule-out, and treat the possible causation of dementia?: No Objective Vital Signs Last 48 hours: Vital Signs - 48 hr 09/09/23 10:20 2 09/09/23 10:18 124 H 22 H 111/96 H 96 09/11/23 07:27 100.2 F 103 H 18 118/70 93 2.0 Vital Signs (Last Set): Vital Signs - Last Set Temperature 100.2 F 09/11/23 07:27 Pulse Rate 103 H 09/11/23 07:27 Patient is: Afebrile Intake/Output totals: Intake AND Output Intake Total 956.04 230.22 Output Total 500 400 Balance 456.04 -169.78 I/O: Equals output General Appearance: Positive Alert, Resting Comfortably and Cooperative; Negative Acute Distress Skin: Positive Color Normal Cardiovascular: Positive Regular Rate and Rhythm and S1 S2 Lungs: Negative Respiratory Distress Abdomen: Positive Soft and Tender to palpation (mildly); Negative BM or Flatus Extremities: Positive Activity as expected and Warm and Dry; Negative Swelling Neurologic: Positive Grossly Intact, Moves all extremities and A AND O x3 Psychological: Positive Mood AND Affect Normal Device: Drain(s) (serosang) Lab Results: 09/11/23 04:58 Images available, please contact [facility] Medical Records 09/11/23 04:58 Images available, please contact [facility] Medical RecordsLaboratory Results - last 24 hr WBC 29.8 H RBC 3.54 L Hgb 9.8 L Hct 30.1 L MCV 84.9 MCH 27.7 MCHC 32.6 L RDW 16.1 H Plt Count 180 Microbiology 09/08/23 18:15 Blood,Venous - Final 09/08/23 18:15 Blood,Venous Blood Culture - Preliminary Staphylococcus aureus 09/08/23 18:20 Blood,Venous Blood Culture - Preliminary Staph (more content not included)... Normal [facility] Progress Note [facility] Medical Records Patient: GEOVANNY MEJÍA [address] : 1970 [place], [place] [address] Location: [phone] Unit #: [id number] Progress Note Surgical Ryanne Morales PA-C Service Dt/Tm: 09/09/23 1516 53 year old female with intraabdominal abscess. S/P IR drainage. Brian follow. IV antibiotics. Pain worsening and [employer] started Patient seen and examined independently by me. Below discussed and I agree with the note except where indicated. See my additional comments below. Labs, cultures, and radiographs where available were reviewed. Changes were made in the orders as necessary. I discussed patient concerns with the patient's nurse and instructions were given. Please see our orders for the updated patient care plan. Assessment/Plan (1) Back pain: Status: Acute Qualifiers: Back pain location: low back pain Chronicity: acute Back pain laterality: unspecified Sciatica presence: with sciatica Sciatica laterality: sciatica of right side Qualified Code(s): M54.41 - Lumbago with sciatica, right side (2) Sciatica: Status: Acute Qualifiers: Laterality: unspecified laterality Qualified Code(s): M54.30 - Sciatica, unspecified side (3) Retroperitoneal abscess: Status: Acute Plan Hospitalist attending Surgery consulted Patient examined. Labs and vitals reviewed. AVSS. Still continued high pain. Will add [employer] pump for better pain control. Increased nausea. Zofran on board. NPO with meds okay. Will repeat CT scan tomorrow. Continue IS, ambulation as tolerated, and antiemetics. Will continue to follow Subjective Date of Service: 09/09/23 Patient Information: GEOVANNY MEJÍA is a 53 yr old F who was admitted on 09/08/23 for INTRA ABDOMINAL ABCESS. Patient expresses concerns: No Patient states: denies Shortness of breath or Chest pain Pain control: Mildly controlled CAM Tool Confusion Assessment Method (CAM Tool) 1. Acute onset and fluctuating course Is there evidence of an acute change in mental status from the patient's baseline?: No Did the (abnormal) behavior fluctuate during the day, that is tend to come and go or increase and decrease in severity?: No 2. Inattention Did the patient have difficulty focusing attention, for example, being easily distractible or having difficulty keeping track of what was being said?: No 3. Disorganized Thinking Was the patient???s thinking disorganized or incoherent, such as rambling or irrelevant conversation, unclear or illogical flow of ideas, or unpredictable switching from subject to subject?: No 4. Altered Level Of Consciousness Would you rate the patient's level of consciousness as Vigilant (hyper alert), Lethargic (drowsy, easily aroused), Stupor (difficult to arouse), OR Coma (unarousable)?: No CAM Score Does the patient have a positive CAM score? (Yes to all questions under number 1 and 2, and Yes to question 3 or 4): No PRISME Did you utilize the PRISME method to identify, rule-out, and treat the possible causation of dementia?: No Objective Vital Signs Last 48 hours: Vital Signs - 48 hr Vital Signs (Last Set): Vital Signs - Last Set Temperature 98.1 F 09/09/23 10:20 Pulse Rate 124 H 09/09/23 10:20 Patient is: Afebrile Intake/Output totals: Intake AND Output Intake Total 555.24 487.11 Output Total 500 800 I/O: Equals output General Appearance: Positive Alert; Negative Acute Distress Skin: Positive Color Normal Cardiovascular: Positive Regular Rate and Rhythm Lungs: Negative Respiratory Distress Abdomen: Positive Soft Extremities: Positive Activity as expected and Warm and Dry; Negative Swelling Neurologic: Positive Grossly Intact, Moves all extremities and A AND O x3 Psychological: Positive Mood AND Affect Normal Lab Results: 09/09/23 03:36 Images available, please contact [facility] Medical Records 09/09/23 03:37 Images available, please contact [facility] Medical RecordsLaboratory Results - last 24 hr WBC 18.2 H RBC 3.73 L Hgb 10.6 L Hct 31.8 L MCV 85.4 MCH 28.4 MCHC 33.3 RDW 16.0 Plt Count 172 Neutrophils % (Manual) WBC 24.9 H RBC 3.61 L Hgb 10.3 L Hct 30.6 L MCV 84.8 Microbiology 09/08/23 15:46 Abdominal fluid Gram Stain - Final 09/08/23 15:46 Abdominal fluid Body Fluid Culture - Preliminary Staphylococcus aureus 09/08/23 18:20 Blood,Venous Blood Culture - Preliminary Gram positive cocci- clusters 09/08/23 18:15 Blood,Venous - Final 09/08/23 18:15 Blood,Venous Blood Culture - Preliminary Gram positive cocci- clusters 09/08/23 Unknown Perianal MRSA Screen - Preliminary No growth of MRSA after 1 day. Entered by: Ryanne Morales PA-C on 09/09/23 1516 Report Signed by: Ryanne Morales PA-C on 09/09/23 1527 < > Report Signed by: Rohit Pimentel MD on 10/09/23 1739 < > Normal [facility] Progress Note [facility] Medical Records Patient: GEOVANNY MEJÍA [address] : 1970 [place], [place] [address] Location: [phone] Unit #: [id number] Progress Note Surgical Ryanne Morales PA-C Service Dt/Tm: 09/10/23 1447 53 year old male with intraabdominal abscess. S/P IR drainage. Brian follow. IV antibiotics. Pain worsening and [employer] started and pain better controlled. repeat CCT with improvement will continue to follow. Patient seen and examined independently by me. Below discussed and I agree with the note except where indicated. See my additional comments below. Labs, cultures, and radiographs where available were reviewed. Changes were made in the orders as necessary. I discussed patient concerns with the patient's nurse and instructions were given. Please see our orders for the updated patient care plan. Assessment/Plan (1) Back pain: Status: Acute Qualifiers: Back pain location: low back pain Chronicity: acute Back pain laterality: unspecified Sciatica presence: with sciatica Sciatica laterality: sciatica of right side Qualified Code(s): M54.41 - Lumbago with sciatica, right side (2) Sciatica: Status: Acute Qualifiers: Laterality: unspecified laterality Qualified Code(s): M54.30 - Sciatica, unspecified side (3) Retroperitoneal abscess: Status: Acute Plan Hospitalist attending Surgery consulted Patient examined. Labs and vitals reviewed. AVSS. Pain better controlled with [employer] pump. NPO with meds okay. -flatus/-BM CT shows improving IANDD. Continue IS, antibiotics, ambulation as tolerated, and antiemetics. Will continue to follow Subjective Date of Service: 09/10/23 Patient Information: GEOVANNY MEJÍA is a 53 yr old F who was admitted on 09/08/23 for INTRA ABDOMINAL ABCESS. Patient expresses concerns: No Patient states: denies Shortness of breath or Chest pain Pain control: Well controlled CAM Tool Confusion Assessment Method (CAM Tool) 1. Acute onset and fluctuating course Is there evidence of an acute change in mental status from the patient's baseline?: No Did the (abnormal) behavior fluctuate during the day, that is tend to come and go or increase and decrease in severity?: No 2. Inattention Did the patient have difficulty focusing attention, for example, being easily distractible or having difficulty keeping track of what was being said?: No 3. Disorganized Thinking Was the patient???s thinking disorganized or incoherent, such as rambling or irrelevant conversation, unclear or illogical flow of ideas, or unpredictable switching from subject to subject?: No 4. Altered Level Of Consciousness Would you rate the patient's level of consciousness as Vigilant (hyper alert), Lethargic (drowsy, easily aroused), Stupor (difficult to arouse), OR Coma (unarousable)?: No CAM Score Does the patient have a positive CAM score? (Yes to all questions under number 1 and 2, and Yes to question 3 or 4): No PRISME Did you utilize the PRISME method to identify, rule-out, and treat the possible causation of dementia?: No Objective Vital Signs Last 48 hours: Vital Signs - 48 hr 09/09/23 10:20 2 Vital Signs (Last Set): Vital Signs - Last Set Temperature 98.2 F 09/10/23 10:31 Patient is: Afebrile Intake/Output totals: Intake AND Output Intake Total 873.49 715.91 Output Total 650 450 Balance 223.49 265.91 I/O: Equals output General Appearance: Positive Alert, Resting Comfortably and Cooperative; Negative Acute Distress Skin: Positive Color Normal Cardiovascular: Positive Regular Rate and Rhythm and S1 S2 Lungs: Negative Respiratory Distress Abdomen: Positive Soft and Tender to palpation (improving); Negative BM or Flatus Extremities: Positive Activity as expected and Warm and Dry; Negative Swelling Neurologic: Positive Grossly Intact, Moves all extremities and A AND O x3 Psychological: Positive Mood AND Affect Normal Device: Drain(s) (serosang) Lab Results: 09/10/23 05:35 Images available, please contact [facility] Medical Records 09/10/23 05:35 Images available, please contact [facility] Medical RecordsLaboratory Results - last 24 hr WBC 23.3 H RBC 3.58 L Hgb 10.0 L Hct 30.4 L MCV 84.9 MCH 28.0 MCHC 33.0 RDW 16.3 H Plt Count 164 Microbiology 09/08/23 18:20 Blood,Venous Blood Culture - Preliminary Staphylococcus aureus Staphylococcus epidermidis 09/08/23 18:15 Blood,Venous - Final 09/08/23 18:15 Blood,Venous Blood Culture - Preliminary Staphylococcus aureus 09/08/23 Unknown Perianal MRSA Screen - Final No growth of MRSA after 2 days. 09/08/23 15:46 Abdominal fluid Gram Stain - Final 09/08/23 15:46 Abdominal fluid Body Fluid Culture - Preliminary Staphylococcus aureus Entered by: Ryanne Morales PA-C on 09/10/23 1447 Report Signed by: Ryanne Fuchs (more content not included)... Normal [facility] Progress Note [facility] Medical Records Patient: GEOVANNY MEJÍA [address] : 1970 [place], [place] [address] Location: [phone] Unit #: [id number] Progress Note Surgical Ryanne Mroales PA-C Service Dt/Tm: 09/12/23 0850 53 year old male with intraabdominal abscess. S/P IR drainage. Brian follow. IV antibiotics. CT with improvement but worsening leukocytosis. ID on board. No general surgery intervention at this time. Patient seen and examined independently by me. Below discussed and I agree with the note except where indicated. See my additional comments below. Labs, cultures, and radiographs where available were reviewed. Changes were made in the orders as necessary. I discussed patient concerns with the patient's nurse and instructions were given. Please see our orders for the updated patient care plan. Assessment/Plan (1) Back pain: Status: Acute Qualifiers: Back pain laterality: unspecified Back pain location: low back pain Chronicity: acute Sciatica laterality: sciatica of right side Sciatica presence: with sciatica Qualified Code(s): M54.41 - Lumbago with sciatica, right side (2) Sciatica: Status: Acute Qualifiers: Laterality: unspecified laterality Qualified Code(s): M54.30 - Sciatica, unspecified side (3) Retroperitoneal abscess: Status: Acute Plan Hospitalist attending Surgery consulted Patient examined. Labs and vitals reviewed. AVSS. Pain well controlled. WBC trending up, however CT scan shows continued improvement of intraabdominal abscess. Will allow medicine/ID to manage WBC. No surgical intervention needed for infection control. NPO with meds okay. -flatus/-BM Probably ileus. Waiting for bowel to wake up. - Continue NPO. Gum and hard candy okay. - Once passing gas, okay to begin clears. Continue IS, antibiotics, ambulation as tolerated, and antiemetics. Will continue to follow Subjective Date of Service: 09/12/23 Patient Information: GEOVANNY MEJÍA is a 53 yr old F who was admitted on 09/08/23 for INTRA ABDOMINAL ABCESS. Patient expresses concerns: No Patient states: denies Shortness of breath or Chest pain Pain control: Well controlled CAM Tool Confusion Assessment Method (CAM Tool) 1. Acute onset and fluctuating course Is there evidence of an acute change in mental status from the patient's baseline?: No Did the (abnormal) behavior fluctuate during the day, that is tend to come and go or increase and decrease in severity?: No 2. Inattention Did the patient have difficulty focusing attention, for example, being easily distractible or having difficulty keeping track of what was being said?: No 3. Disorganized Thinking Was the patient???s thinking disorganized or incoherent, such as rambling or irrelevant conversation, unclear or illogical flow of ideas, or unpredictable switching from subject to subject?: No 4. Altered Level Of Consciousness Would you rate the patient's level of consciousness as Vigilant (hyper alert), Lethargic (drowsy, easily aroused), Stupor (difficult to arouse), OR Coma (unarousable)?: No CAM Score Does the patient have a positive CAM score? (Yes to all questions under number 1 and 2, and Yes to question 3 or 4): No Objective Vital Signs Last 48 hours: Vital Signs - 48 hr 09/11/23 20:00 2 09/11/23 10:09 2 Vital Signs (Last Set): Vital Signs - Last Set Temperature 98.9 F 09/12/23 07:42 Pulse Rate 103 H 09/12/23 07:42 Patient is: Afebrile Intake/Output totals: Intake AND Output Intake Total 886.81 686.77 Output Total 500 1200 Balance 386.81 -513.23 I/O: Equals output General Appearance: Positive Alert, Resting Comfortably and Cooperative; Negative Acute Distress Skin: Positive Color Normal Cardiovascular: Positive Regular Rate and Rhythm and S1 S2 Lungs: Negative Respiratory Distress Abdomen: Positive Soft and Tender to palpation (mildly); Negative BM or Flatus Extremities: Positive Activity as expected and Warm and Dry; Negative Swelling Neurologic: Positive Grossly Intact, Moves all extremities and A AND O x3 Psychological: Positive Mood AND Affect Normal Device: Drain(s) (serosang) Lab Results: 09/12/23 03:59 Images available, please contact [facility] Medical Records 09/12/23 03:59 Images available, please contact [facility] Medical RecordsLaboratory Results - last 24 hr WBC 31.4 H RBC 3.49 L Hgb 9.8 L Hct 29.6 L MCV 84.8 MCH 28.0 MCHC 33.0 RDW 16.0 Plt Count 241 Microbiology 09/11/23 13:40 Blood,Venous Blood Culture - Preliminary No growth after 1 day, cultures held 5 days. 09/11/23 13:35 Blood,Venous Blood Culture - Preliminary No growth after 1 day, cultures held 5 days. 09/08/23 15:46 Abdominal fluid Gram Stain - Final 09/08/23 15:46 Abdominal fluid Body Fluid Culture - Preliminary Staphylococcus aureus 09/08 (more content not included)... Normal [facility] CBC,PLATELETSon 10-06-2023 Hematocrit (Bld) [Volume fraction] 27.8 % Low 34.9-44.3 [facility] Comment on above: Performed By: #### C HM7, MGO #### U [facility] [facility] (DEFAULT[facility] [address] [place] [address] 63432 Hemoglobin (Bld) [Mass/Vol] 8.4 g/dL Low 11.4-15.[address] [facility] Comment on above: Performed By: #### C HM7, MGO #### [facility] (DEFAULT) [address] [place] [address] 30494 MCV (RBC) [Entitic vol] 87.4 fL Normal 79.6-97.7 O [facility] Comment on above: Performed By: #### C HM7, MGO #### [facility] (DEFAULT) [address] [place] [address] 71427 Mean Cell Hgb 26.4 pg Normal 25.9-33.[address] [facility] Comment on above: Performed By: #### C HM7, MGO #### [facility] (DEFAULT) [address] [place] [address] 36119 Mean Cell Hgb Conc 30.2 g/dL Low 31.4-35.9 [facility] Comment on above: Performed By: #### C HM7, MGO #### [facility] (DEFAULT) [address] [place] [address] 84647 Platelet mean volume (Bld) [Entitic vol] 9.4 fL Normal 8.5-12.[address] [facility] Comment on above: Performed By: #### C HM7, MGO #### [facility] (DEFAULT) [address] [place] [address] 82328 Platelets (Bld) [#/Vol] 549 10*3/uL High 150-[address] [facility] Comment on above: Performed By: #### C HM7, MGO #### [facility] (DEFAULT) [address] [place] [address] 53534 RBC (Bld) [#/Vol] 3.18 10*6/uL Low 3.91-5.[address] [facility] Comment on above: Performed By: #### C HM7, MGO #### [facility] (DEFAULT) [address] [place] [address] 08231 RBC Distribution 15.2 % High 10.8-14.9 [facility] Comment on above: Performed By: #### C HM7, MGO #### [facility] (DEFAULT) [address] [place] [address] 42361 WBC (Bld) [#/Vol] 6.58 10*3/uL Normal 3.99-11.[address] [facility] Comment on above: Performed By: #### C HM7, MGO #### [facility] (DEFAULT) [address] [place] [address] 85355 CHEM 7 (LYTES,BUN,CREA,GLUC) on 10-06-2023 Anion gap [Moles/Vol] 12 mmol/L Normal 7-17 [facility] Comment on above: Performed By: #### C HM7, MGO #### [facility] (DEFAULT) [address] [place] [address] 76673 Chloride [Moles/Vol] 101 mmol/L Normal 98-[address] [facility] Comment on above: Performed By: #### C HM7, MGO #### [facility] (DEFAULT) [address] [place] [address] 67100 CO2 [Moles/Vol] 28 mmol/L Normal 21-31 [facility] Comment on above: Performed By: #### C HM7, MGO #### [facility] (DEFAULT) [address] [place] [address] 59304 Creatinine [Mass/Vol] 0.65 mg/dL Normal 0.50-1.20 [facility] Comment on above: Performed By: #### C HM7, MGO #### [facility] (DEFAULT) [address] [place] [address] 92982 eGFR, CKD-EPI, Female > Normal >=60 [facility] Comment on above: Result Comment: Repo rted eGFR is based on the CKD-EPI 2020 equation using creatinine, age, and sex. Performed By: #### Martir DUMONT7, MGO #### [facility] (DEFAULT) [address] [place] [address] 45487 Glucose [Mass/Vol] 109 mg/dL High 70-99 [facility] Comment on above: Performed By: #### C HM7, MGO #### [facility] (DEFAULT) [address] [place] [address] 42776 Osmolality [Osmolality] 287 mosm/kg Normal 278-[address] [facility] Comment on above: Performed By: #### C HM7, MGO #### [facility] (DEFAULT) [address] [place] [address] 67934 Potassium [Moles/Vol] 3.9 mmol/L Normal 3.5-5.0 [facility] Comment on above: Performed By: #### Martir HM7, MGO #### [facility] (DEFAULT) [address] [place] [address] 42680 Sodium [Moles/Vol] 137 mmol/L Normal 135-145 [facility] Comment on above: Performed By: #### Martir HM7, MGO #### [facility] (DEFAULT) [address] [place] [address] 73059 Urea nitrogen [Mass/Vol] 10 mg/dL Normal 7-[address] [facility] Comment on above: Performed By: #### C HM7, MGO #### [facility] (DEFAULT) [address] [place] [address] 18964 Urea nitrogen/Creatinine [Mass ratio] 15 mg/mg Normal [facility] Comment on above: Performed By: #### C HM7, MGO #### [facility] (DEFAULT) [address] [place] [address] 13000 MAGNESIUMon 10-06-2023 Magnesium [Mass/Vol] 1.9 mg/dL Normal 1.6-2.[address] [facility] Comment on above: Performed By: #### C HM7, MGO #### [facility] (DEFAULT) [address] [place] [address] 15619 SARS-COV-2 RAPIDon SARS-CoV-2 (COVID-19) RNA GINETTE+probe Ql (Unsp spec) Not detected Normal NOT DETECTED [facility] Comment on above: Order Comment: Use a jessica, foam, polyester, or flocked swab to collect a nasal or nasopharyngeal specimen. After collection, place in a clean, plastic screw cap vial, cap tightly and label with patient information. Transport double bagged in biohazard bag at room temperature. Must be received within 60 minutes of collection. Collection must be done while wearing N-95 mask, eye protection, gown, and gloves. Result Comment: [facility] Negative results do not preclude SARS-CoV-2 infection and should not be used as the sole basis for treatment or other patient management decisions. Optimum specimen types and timing for peak viral levels during infections caused by SARS-CoV-2 has not been determined. The possibility of a false negative result should especially be considered if the patient's recent exposures or clinical presentation suggest that SARS-CoV-2 infection is probable, and diagnostic tests for other causes of illness (e.g., other respiratory illness) are negative. Collection of a new specimen and re-testing may be necessary if the patient is critically ill or clinically deteriorating. This test was performed using isothermal nucleic acid amplification technology for the qualitative detection of SARS-CoV-2 nucleic acid. The test has been authorized by the FDA under an emergency use authorization for use by authorized laboratories. Performed By: #### U HCG #### [facility] (DEFAULT) [address] [place] [address] 57972 PLATELET COUNTon 10-04-2023 Platelet mean volume (Bld) [Entitic vol] 9.4 fL Normal 8.5-12.[address] [facility] Comment on above: Performed By: #### C HM7, MGO #### [facility] (DEFAULT) [address] [place] [address] 25360 Platelets (Bld) [#/Vol] 522 10*3/uL High 150-[address] [facility] Comment on above: Performed By: #### C HM7, MGO #### [facility] (DEFAULT) [address] [place] [address] 75183 CBC,PLATELETSon 10-03-2023 Hematocrit (Bld) [Volume fraction] 26.7 % Low 34.9-44.[address] [facility] Comment on above: Performed By: #### T YPEC #### [facility] (DEFAULT) [address] [place] [address] 90700 Hemoglobin (Bld) [Mass/Vol] 8.3 g/dL Low 11.4-15.[address] [facility] Comment on above: Performed By: #### T YPEC #### [facility] (DEFAULT) [address] [place] [address] 88106 MCV (RBC) [Entitic vol] 87.8 fL Normal 79.6-97.7 [facility] Comment on above: Performed By: #### T YPEC #### [facility] (DEFAULT) [address] [address] Mean Cell Hgb 27.3 pg Normal 25.9-33.[address] [facility] Comment on above: Performed By: #### T YPEC #### [facility] (DEFAULT) [address] [place] [address] 95159 Mean Cell Hgb Conc 31.1 g/dL Low 31.4-35.9 [facility] Comment on above: Performed By: #### T YPEC #### [facility] (DEFAULT) [address] [place] [address] 11671 Platelet mean volume (Bld) [Entitic vol] 9.6 fL Normal 8.5-12.[address] [facility] Comment on above: Performed By: #### T YPEC #### [facility] (DEFAULT) [address] [place] [address] 12974 Platelets (Bld) [#/Vol] 545 10*3/uL High 150-[address] [facility] Comment on above: Performed By: #### T YPEC #### [facility] (DEFAULT) [address] [place] [address] 67485 RBC (Bld) [#/Vol] 3.04 10*6/uL Low 3.91-5.[address] [facility] Comment on above: Performed By: #### T YPEC #### [facility] (DEFAULT) [address] [place] [address] 27411 RBC Distribution 15.6 % High 10.8-14.9 [facility] Comment on above: Performed By: #### T YPEC #### [facility] (DEFAULT) [address] [place] [address] 09195 WBC (Bld) [#/Vol] 6.16 10*3/uL Normal 3.99-11.[address] [facility] Comment on above: Performed By: #### T YPEC #### [facility] (DEFAULT) [address] [place] [address] 31882 CHEM 7 (LYTES,BUN,CREA,GLUC) on 10-03-2023 Anion gap [Moles/Vol] 14 mmol/L Normal 7-17 [facility] Comment on above: Performed By: #### C HM7, MGO #### [facility] (DEFAULT) [address] [place] [address] 61467 Chloride [Moles/Vol] 100 mmol/L Normal 98-[address] [facility] Comment on above: Performed By: #### C HM7, MGO #### [facility] (DEFAULT) [address] [place] [address] 29348 CO2 [Moles/Vol] 28 mmol/L Normal 21-31 [facility] Comment on above: Performed By: #### C HM7, MGO #### [facility] (DEFAULT) [address] [place] [address] 17756 Creatinine [Mass/Vol] 0.56 mg/dL Normal 0.50-1.20 [facility] Comment on above: Performed By: #### C HM7, MGO #### [facility] (DEFAULT) [address] [place] [address] 64403 eGFR, CKD-EPI, Female > Normal >=60 [facility] Comment on above: Result Comment: Repo rted eGFR is based on the CKD-EPI 2020 equation using creatinine, age, and sex. Performed By: #### C HM7, MGO #### [facility] (DEFAULT) [address] [place] [address] 31068 Glucose [Mass/Vol] 105 mg/dL High 70-99 [facility] Comment on above: Performed By: #### C HM7, MGO #### [facility] (DEFAULT) [address] [place] [address] 34595 Osmolality [Osmolality] 288 mosm/kg Normal 278-[address] [facility] Comment on above: Performed By: #### C HM7, MGO #### [facility] (DEFAULT) [address] [place] [address] 66437 Potassium [Moles/Vol] 3.9 mmol/L Normal 3.5-5.0 [facility] Comment on above: Performed By: #### C HM7, MGO #### [facility] (DEFAULT) [address] [place] [address] 01351 Sodium [Moles/Vol] 138 mmol/L Normal 135-145 [facility] Comment on above: Performed By: #### C HM7, MGO #### [facility] (DEFAULT) [address] [place] [address] 84448 Urea nitrogen [Mass/Vol] 10 mg/dL Normal 7-[address] [facility] Comment on above: Performed By: #### C HM7, MGO #### [facility] (DEFAULT) [address] [place] [address] 83039 Urea nitrogen/Creatinine [Mass ratio] 18 mg/mg Normal [facility] Comment on above: Performed By: #### C HM7, MGO #### [facility] (DEFAULT) [address] [place] [address] 37075 HEPATIC FUNCTION PANELon Albumin [Mass/Vol] 2.6 g/dL Low 3.5-5.0 [facility] Comment on above: Performed By: #### V ANCTR #### [facility] (DEFAULT) [address] [place] [address] 25402 ALP [Catalytic activity/Vol] 173 U/L High 32-[address] [facility] Comment on above: Performed By: #### V ANCTR #### [facility] (DEFAULT) [address] [place] [address] 31853 ALT [Catalytic activity/Vol] 8 U/L Low 9-[address] [facility] Comment on above: Performed By: #### V ANCTR #### [facility] (DEFAULT) [address] [place] [address] 25412 AST [Catalytic activity/Vol] 21 U/L Normal 10-[address] [facility] Comment on above: Performed By: #### V ANCTR #### [facility] (DEFAULT) [address] [place] [address] 58872 Bilirubin [Mass/Vol] 0.2 mg/dL Normal <1.[address] [facility] Comment on above: Performed By: #### V ANCTR #### [facility] (DEFAULT) [address] [place] [address] 99481 Bilirubin.indirect [Mass/Vol] 0.2 mg/dL Normal <0.[address] [facility] Comment on above: Performed By: #### V ANCTR #### [facility] (DEFAULT) [address] [place] [address] 90828 Protein [Mass/Vol] 6.5 g/dL Normal 6.4-8.3 [facility] Comment on above: Performed By: #### V ANCTR #### [facility] (DEFAULT) [address] [place] [address] 60240 MAGNESIUMon 10-03-2023 Magnesium [Mass/Vol] 1.9 mg/dL Normal 1.6-2.[address] [facility] Comment on above: Performed By: #### C HM7, MGO #### [facility] (DEFAULT) [address] [place] [address] 90908 CHEM 7 (LYTES,BUN,CREA,GLUC) on 10-02-2023 Anion gap [Moles/Vol] 14 mmol/L Normal 7-17 [facility] Comment on above: Performed By: #### C HM7, MGO #### [facility] (DEFAULT) [address] [place] [address] 36427 Chloride [Moles/Vol] 101 mmol/L Normal 98-[address] [facility] Comment on above: Performed By: #### C HM7, MGO #### [facility] (DEFAULT) [address] [place] [address] 98316 CO2 [Moles/Vol] 28 mmol/L Normal 21-31 [facility] Comment on above: Performed By: #### C HM7, MGO #### [facility] (DEFAULT) [address] [place] [address] 45723 Creatinine [Mass/Vol] 0.55 mg/dL Normal 0.50-1.20 [facility] Comment on above: Performed By: #### Martir HM7, MGO #### [facility] (DEFAULT) [address] [place] [address] 78147 eGFR, CKD-EPI, Female > Normal >=60 [facility] Comment on above: Result Comment: Repo rted eGFR is based on the CKD-EPI 2020 equation using creatinine, age, and sex. Performed By: #### C HM7, MGO #### [facility] (DEFAULT) [address] [place] [address] 73068 Glucose [Mass/Vol] 94 mg/dL Normal 70-99 [facility] Comment on above: Performed By: #### C HM7, MGO #### [facility] (DEFAULT) [address] [place] [address] 00770 Osmolality [Osmolality] 289 mosm/kg Normal 278-[address] [facility] Comment on above: Performed By: #### C HM7, MGO #### [facility] (DEFAULT) [address] [place] [address] 43247 Potassium [Moles/Vol] 3.9 mmol/L Normal 3.5-5.0 [facility] Comment on above: Performed By: #### C HM7, MGO #### [facility] (DEFAULT) [address] [place] [address] 26827 Sodium [Moles/Vol] 139 mmol/L Normal 135-145 [facility] Comment on above: Performed By: #### C HM7, MGO #### [facility] (DEFAULT) [address] [place] [address] 88354 Urea nitrogen [Mass/Vol] 10 mg/dL Normal 7-[address] [facility] Comment on above: Performed By: #### C HM7, MGO #### [facility] (DEFAULT) [address] [place] [address] 75521 Urea nitrogen/Creatinine [Mass ratio] 18 mg/mg Normal [facility] Comment on above: Performed By: #### C HM7, MGO #### [facility] (DEFAULT) [address] [place] [address] 09616 CHEM 7 (LYTES,BUN,CREA,GLUC) on 10-01-2023 Anion gap [Moles/Vol] 14 mmol/L Normal 7-17 [facility] Comment on above: Performed By: #### C HM7, MGO #### [facility] (DEFAULT) [address] [place] [address] 06542 Chloride [Moles/Vol] 101 mmol/L Normal 98-[address] [facility] Comment on above: Performed By: #### C HM7, MGO #### [facility] (DEFAULT) [address] [place] [address] 15199 CO2 [Moles/Vol] 27 mmol/L Normal 21-31 [facility] Comment on above: Performed By: #### C HM7, MGO #### [facility] (DEFAULT) [address] [place] [address] 48154 Creatinine [Mass/Vol] 0.51 mg/dL Normal 0.50-1.20 [facility] Comment on above: Performed By: #### C HM7, MGO #### [facility] (DEFAULT) [address] [place] [address] 33441 eGFR, CKD-EPI, Female > Normal >=60 [facility] Comment on above: Result Comment: Repo rted eGFR is based on the CKD-EPI 2020 equation using creatinine, age, and sex. Performed By: #### C HM7, MGO #### [facility] (DEFAULT) [address] [place] [address] 77503 Glucose [Mass/Vol] 94 mg/dL Normal 70-99 [facility] Comment on above: Performed By: #### C HM7, MGO #### [facility] (DEFAULT) [address] [place] [address] 35059 Osmolality [Osmolality] 288 mosm/kg Normal 278-[address] [facility] Comment on above: Performed By: #### C HM7, MGO #### [facility] (DEFAULT) [address] [place] [address] 88514 Potassium [Moles/Vol] 4.0 mmol/L Normal 3.5-5.0 [facility] Comment on above: Performed By: #### C HM7, MGO #### [facility] (DEFAULT) [address] [place] [address] 53644 Sodium [Moles/Vol] 138 mmol/L Normal 135-145 [facility] Comment on above: Performed By: #### C HM7, MGO #### [facility] (DEFAULT) [address] [place] [address], [place] [address] Urea nitrogen [Mass/Vol] 12 mg/dL Normal - [facility] Comment on above: Performed By: #### C HM7, MGO #### [facility] (DEFAULT) [address] [place] [address] Urea nitrogen/Creatinine [Mass ratio] 24 mg/mg Normal [facility] Comment on above: Performed By: #### C HM7, MGO #### [facility] (DEFAULT) [address] [place] [address] INSERTION CVC TUNNELEDon INSERTION CVC TUNNELED EXAM: IR INSERTIO N CVC TUNNELED, 09/30/2023 12:01 PM CLINICAL INDICATIONS: 53-year-old female requiring central venous access for antibiotics. MEDICATIONS: 11:08 AM 09/30/23 fentaNYL (SUBLIMAZE) injection 0-300 mcg 25 mcg Given Rate: 0 Route: Intravenous; 11: AM 09/30/23 midazolam (VERSED) injection 0-10 mg 0.5 mg Given Rate: 0 Route: Intravenous; 11: AM 09/30/23 midazolam (VERSED) injection 0-10 mg 0.5 mg Given Rate: 0 Route: Intravenous; :09/30/23 fentaNYL (SUBLIMAZE) injection 0-300 mcg 25 mcg Given Rate: 0 Route: Intravenous; 11: AM 09/30/23 fentaNYL (SUBLIMAZE) injection 0-300 mcg 25 mcg Given Rate: 0 Route: Intravenous; :09/30/23 midazolam (VERSED) injection 0-10 mg 0.5 mg Given Rate: 0 Route: Intravenous; 11: AM 09/30/23 diphenhydrAMINE (BENADRYL) injection 25 mg Given Rate: 0 Route: Intravenous; 11: AM 09/30/23 fentaNYL (SUBLIMAZE) injection 0-300 mcg 25 mcg Given Rate: 0 Route: Intravenous; : AM 09/30/23 midazolam (VERSED) injection 0-10 mg 0.5 mg Given Rate: 0 Route: Intravenous; 11: AM 09/30/23 fentaNYL (SUBLIMAZE) injection 0-300 mcg 25 mcg Given Rate: 0 Route: Intravenous; 11: AM 09/30/23 midazolam (VERSED) injection 0-10 mg 0.5 mg Given Rate: 0 Route: Intravenous; 11:44 AM 09/30/23 lidocaine-epinephrine 2 %[id number] injection 0-20 mL 7 mL Given Rate: 0 Route: Infiltration; TOTAL FLUORO TIME: 0.5 minutes OPERATORS: Glenny Iniguez MD (attending); Dipti Peña DO (resident) CONSENT: Following discussion of the risks, benefits and alternatives of the procedure, written informed consent was obtained. SEDATION: I performed Moderate Sedation which included the presence of a nurse that assisted in monitoring the patient's level of consciousness and physiologic status. After administration of sedative medication(s), I spent 42 minutes of continuous [id number] time with the patient. COMPARISON: CT chest with contrast dated September 21, 2023 TIME OUT: Prior to the procedure a time out was performed in the presence of the patient and all personnel involved in this case. The patient identity, procedure type, procedure side/site, and allergies were verified. TECHNIQUE: Position: The patient was transferred to the IR laboratory and was positioned supine on the procedural table. Venous Entry: Preliminary ultrasound demonstrated a patent right internal jugular vein and an image was saved in the imaging archive system. The appropriate area was prepped and draped using maximum sterile barrier technique. This consisted of cap, mask, hand hygiene, sterile gown and gloves, 2% Chlorhexidine solution for cutaneous antisepsis and occlusive sterile draping of the field. Procedure: Local anesthesia was provided with 2% lidocaine. Under direct ultrasound guidance access was gained to the jugular vein and an image was saved in the imaging archive system for documentation. The wire was advanced centrally. A subcutaneous tunnel was created over the anterior chest wall. The Bard dual lumen Powerline was then carried through the tunnel. Using a wire, appropriate measurements were obtained and the catheter was cut to length. The catheter was then placed into the vein via a peel-away sheath under fluoroscopic guidance. The tip of the catheter was positioned in the right atrium. Immediately following placement, each of the ports aspirated and flushed without difficulty and were dwelled with the appropriate saline solution. The catheter was secured to the skin using 2-0 Prolene suture. The neck incision was closed using Dermabond. A sterile, occlusive dressing was placed on the skin over the catheter entry site. DEVICE: Type: Tunneled Catheter: Powerline Length: Cut to measured length FINDINGS: The tip of the catheter was positioned in the right atrium. IMPRESSION: Successful placement of a dual lumen Powerline via the right internal jugular vein. Glenny Iniguez MD was in the room and participated during all reyes portions of this procedure. I personally viewed and interpreted these images and I have reviewed and approved this report. Table formatting from the original result was not included. Flowsheet Row Most Recent Value Fluoro time: 0.5 Fluoro time measurement: minutes Rad Dose: 3 Rad Dose Measurement: mGy Diarize Event Details User 10:58 AM 09/30/23 Timeout: Sign-in Signed by Teena Cortez RN at 09/30/2023 10:58 AM KB 11:08 AM 09/30/23 fentaNYL (SUBLIMAZE) injection 0-300 mcg 25 mcg Given Rate: 0 Route: Intravenous KB 11:08 AM 09/30/23 midazolam (VERSED) injection 0-10 mg 0.5 mg Given Rate: 0 Route: Intravenous KB 11:12 AM 09/30/23 midazolam (VERSED) injection 0-10 mg 0.5 mg Given Rate: 0 Route: Intravenous KB 11:12 AM 09/30/23 fentaNYL (SUBLIMAZE) injection 0-300 mcg 25 mcg Given Rate: 0 Route: Intravenous KB (more content not included)... Normal [facility] PLATELET COUNTon 10-01-2023 Platelet mean volume (Bld) [Entitic vol] 9.2 fL Normal 8.5-12.[address] [facility] Comment on above: Performed By: #### V ANCTR #### [facility] (DEFAULT) [address] [address] Platelets (Bld) [#/Vol] 490 10*3/uL High 150-[address] [facility] Comment on above: Performed By: #### V ANCTR #### [facility] (DEFAULT) [address] [address] CBC AND ELECTRONIC DIFFon Basophils (Bld) [#/Vol] 0.05 10*3/uL Normal 0.00-0.[address] [facility] Comment on above: Performed By: #### C HM7, MGO #### U [facility] (DEFAULT) [address] [place] [address] 57647 Basophils/100 WBC (Bld) 0.8 % Normal O [facility] Comment on above: Performed By: #### C HM7, MGO #### [facility] (DEFAULT) [address] [place] [address] 76856 DIFF STATUS Electronic Differential Normal [facility] Comment on above: Performed By: #### C HM7, MGO #### [facility] (DEFAULT) [address] [place] [address] 04974 Eosinophils (Bld) [#/Vol] 0.13 10*3/uL Normal 0.00-0.[address] [facility] Comment on above: Performed By: #### C HM7, MGO #### [facility] (DEFAULT) [address] [place] [address] 67851 Eosinophils/100 WBC (Bld) 2.1 % Normal [facility] Comment on above: Performed By: #### C HM7, MGO #### [facility] (DEFAULT) [address] [place] [address] 22600 Hematocrit (Bld) [Volume fraction] 28.1 % Low 34.9-44.[address] [facility] Comment on above: Performed By: #### C HM7, MGO #### [facility] (DEFAULT) [address] [place] [address] 73963 Hemoglobin (Bld) [Mass/Vol] 8.6 g/dL Low 11.4-15.[address] [facility] Comment on above: Performed By: #### C HM7, MGO #### [facility] (DEFAULT) [address] [place] [address] 12769 Immature Grans % 0.8 % Normal [facility] Comment on above: Performed By: #### Martir HM7, MGO #### [facility] (DEFAULT) [address] [place] [address] 71630 Immature Grans Absolute 0.05 K/uL Normal <=0.08 O [facility] Comment on above: Performed By: #### Martir HM7, MGO #### [facility] (DEFAULT) [address] [address] Lymphocytes (Bld) [#/Vol] 2.24 10*3/uL Normal 1.16-3.[address] [facility] Comment on above: Performed By: #### Martir HM7, MGO #### [facility] (DEFAULT) [address] [address] Lymphocytes/100 WBC (Bld) 36.7 % Normal [facility] Comment on above: Performed By: #### Martir HM7, MGO #### [facility] (DEFAULT) [address] [address] MCV (RBC) [Entitic vol] 88.1 fL Normal 79.6-97.7 O [facility] Comment on above: Performed By: #### Martir HM7, MGO #### [facility] (DEFAULT) [address] [address] Mean Cell Hgb 27.0 pg Normal 25.9-33.[address] [facility] Comment on above: Performed By: #### Martir HM7, MGO #### [facility] (DEFAULT) [address] [address] Mean Cell Hgb Conc 30.6 g/dL Low 31.4-35.9 [facility] Comment on above: Performed By: #### Martir HM7, MGO #### [facility] (DEFAULT) [address] [place] [address] 87999 Monocytes (Bld) [#/Vol] 0.55 10*3/uL Normal 0.22-0.[address] [facility] Comment on above: Performed By: #### C HM7, MGO #### [facility] (DEFAULT) [address] [place] [address] 87205 Monocytes/100 WBC (Bld) 9.0 % Normal O [facility] Comment on above: Performed By: #### C HM7, MGO #### [facility] (DEFAULT) [address] [place] [address] 25770 Nucleated RBC 0.0 /100 WBC Normal <=0.2 [facility] Comment on above: Performed By: #### C HM7, MGO #### [facility] (DEFAULT) [address] [place] [address] 87665 Platelet mean volume (Bld) [Entitic vol] 9.5 fL Normal 8.5-12.[address] [facility] Comment on above: Performed By: #### C HM7, MGO #### [facility] (DEFAULT) [address] [place] [address] 17617 Platelets (Bld) [#/Vol] 543 10*3/uL High 150-[address] [facility] Comment on above: Performed By: #### Martir HM7, MGO #### [facility] (DEFAULT) [address] [place] [address] 56395 RBC (Bld) [#/Vol] 3.19 10*6/uL Low 3.91-5.[address] [facility] Comment on above: Performed By: #### C HM7, MGO #### [facility] (DEFAULT) [address] [place] [address] 32460 RBC Distribution 15.5 % High 10.8-14.9 [facility] Comment on above: Performed By: #### C HM7, MGO #### [facility] (DEFAULT) [address] [place] [address] 48449 Segs + Bands Auto 50.6 % Normal [facility] Comment on above: Performed By: #### C HM7, MGO #### [facility] (DEFAULT) [address] [place] [address] 86003 Segs + Bands,Absolute Auto 3.09 K/uL Normal 1.64-7.[address] [facility] Comment on above: Performed By: #### C HM7, MGO #### [facility] (DEFAULT) [address] [place] [address] 55979 WBC (Bld) [#/Vol] 6.11 10*3/uL Normal 3.99-11.[address] [facility] Comment on above: Performed By: #### C HM7, MGO #### [facility] (DEFAULT) [address] [place] [address] 14681 CHEM 7 (LYTES,BUN,CREA,GLUC) on 09-30-2023 Anion gap [Moles/Vol] 13 mmol/L Normal 7-17 [facility] Comment on above: Performed By: #### T YPEC #### [facility] (DEFAULT) [address] [place] [address] 42962 Chloride [Moles/Vol] 100 mmol/L Normal 98-[address] [facility] Comment on above: Performed By: #### T YPEC #### [facility] (DEFAULT) [address] [place] [address] 00758 CO2 [Moles/Vol] 28 mmol/L Normal 21-31 [facility] Comment on above: Performed By: #### T YPEC #### [facility] (DEFAULT) [address] [place] [address] 93449 Creatinine [Mass/Vol] 0.67 mg/dL Normal 0.50-1.20 [facility] Comment on above: Performed By: #### T YPEC #### [facility] (DEFAULT) [address] [place] [address] 09801 eGFR, CKD-EPI, Female > Normal >=60 [facility] Comment on above: Result Comment: Repo rted eGFR is based on the CKD-EPI 2020 equation using creatinine, age, and sex. Performed By: #### T YPEC #### [facility] (DEFAULT) [address] [place] [address] 47942 Glucose [Mass/Vol] 98 mg/dL Normal 70-99 [facility] Comment on above: Performed By: #### T YPEC #### [facility] (DEFAULT) [address] [place] [address] 50847 Osmolality [Osmolality] 288 mosm/kg Normal 278-[address] [facility] Comment on above: Performed By: #### T YPEC #### [facility] (DEFAULT) [address] [place] [address] 07005 Potassium [Moles/Vol] 4.4 mmol/L Normal 3.5-5.0 [facility] Comment on above: Performed By: #### T YPEC #### [facility] (DEFAULT) [address] [place] [address] 04687 Sodium [Moles/Vol] 137 mmol/L Normal 135-145 [facility] Comment on above: Performed By: #### T YPEC #### [facility] (DEFAULT) [address] [place] [address] 82540 Urea nitrogen [Mass/Vol] 13 mg/dL Normal 7-[address] [facility] Comment on above: Performed By: #### T YPEC #### [facility] (DEFAULT) [address] [place] [address] 33577 Urea nitrogen/Creatinine [Mass ratio] 19 mg/mg Normal [facility] Comment on above: Performed By: #### T YPEC #### [facility] (DEFAULT) [address] [place] [address] 86306 HCG QUALITATIVE, URINEon Beta HCG ( test) Ql (U) Negative Normal Negative [facility] Comment on above: Performed By: #### U HCG #### [facility] (DEFAULT) [address] [place] [address] 69308 PT,INR,PTTon 09-30-2023 aPTT Coag (Bld) [Time] 23.1 s Low 24.0-34.3 [facility] Comment on above: Result Comment: Spec imen integrity checked. Performed By: #### T YPEC #### [facility] (DEFAULT) [address] [place] [address] 80268 INR Coag (PPP) [Relative time] 1.1 {INR} Normal 0.9-1.[address] [facility] Comment on above: Performed By: #### T YPEC #### [facility] (DEFAULT) [address] [place] [address] 81560 PT Coag (PPP) [Time] 14.5 s High 11.9-14.[address] [facility] Comment on above: Performed By: #### T YPEC #### [facility] (DEFAULT) [address] [place] [address] 27550 CHEM 7 (LYTES,BUN,CREA,GLUC) on 09-29-2023 Anion gap [Moles/Vol] 13 mmol/L Normal 7-17 [facility] Comment on above: Performed By: #### B LDCULT #### [facility] (DEFAULT) [address] [place] [address] 49921 Chloride [Moles/Vol] 99 mmol/L Normal 98-[address] [facility] Comment on above: Performed By: #### B LDCULT #### [facility] (DEFAULT) [address] [place] [address] 53492 CO2 [Moles/Vol] 29 mmol/L Normal 21-31 [facility] Comment on above: Performed By: #### B LDCULT #### [facility] (DEFAULT) [address] [place] [address] 05042 Creatinine [Mass/Vol] 0.71 mg/dL Normal 0.50-1.20 [facility] Comment on above: Performed By: #### B LDCULT #### [facility] (DEFAULT) [address] [place] [address] 12218 eGFR, CKD-EPI, Female > Normal >=60 [facility] Comment on above: Result Comment: Repo rted eGFR is based on the CKD-EPI 2020 equation using creatinine, age, and sex. Performed By: #### B LDCULT #### [facility] (DEFAULT) [address] [place] [address] 04406 Glucose [Mass/Vol] 103 mg/dL High 70-99 [facility] Comment on above: Performed By: #### B LDCULT #### [facility] (DEFAULT) [address] [place] [address] 99101 Osmolality [Osmolality] 287 mosm/kg Normal 278-[address] [facility] Comment on above: Performed By: #### B LDCULT #### [facility] (DEFAULT) [address] [place] [address] 15543 Potassium [Moles/Vol] 4.2 mmol/L Normal 3.5-5.0 [facility] Comment on above: Performed By: #### B LDCULT #### [facility] (DEFAULT) [address] [place] [address] 84610 Sodium [Moles/Vol] 137 mmol/L Normal 135-145 [facility] Comment on above: Performed By: #### B LDCULT #### [facility] (DEFAULT) [address] [place] [address] 82994 Urea nitrogen [Mass/Vol] 11 mg/dL Normal 7-[address] [facility] Comment on above: Performed By: #### B LDCULT #### [facility] (DEFAULT) [address] [place] [address] 71047 Urea nitrogen/Creatinine [Mass ratio] 15 mg/mg Normal [facility] Comment on above: Performed By: #### B LDCULT #### [facility] (DEFAULT) [address] [place] [address] 58874 CHEM 7 (LYTES,BUN,CREA,GLUC) on 09-28-2023 Anion gap [Moles/Vol] 13 mmol/L Normal 7-17 [facility] Comment on above: Performed By: #### C HM7, MGO #### [facility] (DEFAULT) [address] [place] [address] 48153 Chloride [Moles/Vol] 98 mmol/L Normal 98-[address] [facility] Comment on above: Performed By: #### C HM7, MGO #### [facility] (DEFAULT) [address] [place] [address] 94986 CO2 [Moles/Vol] 29 mmol/L Normal 21-31 [facility] Comment on above: Performed By: #### C HM7, MGO #### [facility] (DEFAULT) [address] [place] [address] 47719 Creatinine [Mass/Vol] 0.61 mg/dL Normal 0.50-1.20 [facility] Comment on above: Performed By: #### Martir HM7, MGO #### [facility] (DEFAULT) [address] [place] [address] 72042 eGFR, CKD-EPI, Female > Normal >=60 [facility] Comment on above: Result Comment: Repo rted eGFR is based on the CKD-EPI 2020 equation using creatinine, age, and sex. Performed By: #### C HM7, MGO #### [facility] (DEFAULT) [address] [place] [address] 12489 Glucose [Mass/Vol] 101 mg/dL High 70-99 [facility] Comment on above: Performed By: #### C HM7, MGO #### [facility] (DEFAULT) [address] [place] [address] 46809 Osmolality [Osmolality] 283 mosm/kg Normal 278-[address] [facility] Comment on above: Performed By: #### C HM7, MGO #### [facility] (DEFAULT) [address] [place] [address] 62422 Potassium [Moles/Vol] 4.5 mmol/L Normal 3.5-5.0 [facility] Comment on above: Performed By: #### C HM7, MGO #### [facility] (DEFAULT) [address] [place] [address] 75048 Sodium [Moles/Vol] 135 mmol/L Normal 135-145 [facility] Comment on above: Performed By: #### C HM7, MGO #### [facility] (DEFAULT) [address] [place] [address] 40673 Urea nitrogen [Mass/Vol] 8 mg/dL Normal 7-[address] [facility] Comment on above: Performed By: #### C HM7, MGO #### [facility] (DEFAULT) [address] [place] [address] 41410 Urea nitrogen/Creatinine [Mass ratio] 13 mg/mg Normal [facility] Comment on above: Performed By: #### C HM7, MGO #### [facility] (DEFAULT) [address] [place] [address] 55745 PLATELET COUNTon 09-28-2023 Platelet mean volume (Bld) [Entitic vol] 9.5 fL Normal 8.5-12.[address] [facility] Comment on above: Performed By: #### B LDCULT #### [facility] (DEFAULT) [address] [place] [address] 70544 Platelets (Bld) [#/Vol] 467 10*3/uL High 150-[address] [facility] Comment on above: Performed By: #### B LDCULT #### [facility] (DEFAULT) [address] [place] [address] 17658 Status Note/Updateon 023 Status Note/Update [facility] Medical Records Patient: GEOVANNY MEJÍA [address] : 1970 [place], [place] [address] Location: [phone] Unit #: [id number] Status Note/Update Ryanne Morales PA-C Service Dt/Tm: 09/15/23 7789 Note: GEOVANNY MEJÍA is a 53 yr old F who was admitted on 09/08/23 for INTRA ABDOMINAL ABCESS. No surgical interventions required at this time with presentation improving, will sign off case. Entered by: Ryanne Morales PA-C on 09/15/231708 Report Signed by: Ryanne Morales PA-C on 09/15/231708 < > Report Signed by: Rohit Pimentel MD on 09/27/23 1124 < > Normal [facility] CHEM 7 (LYTES,BUN,CREA,GLUC) on 09-26-2023 Anion gap [Moles/Vol] 11 mmol/L Normal 7-17 [facility] Comment on above: Performed By: #### C HM7 #### [facility] (DEFAULT) [address] [address] Chloride [Moles/Vol] 99 mmol/L Normal 98-[address] [facility] Comment on above: Performed By: #### C HM7 #### [facility] (DEFAULT) [address] [address] CO2 [Moles/Vol] 30 mmol/L Normal 21-31 [facility] Comment on above: Performed By: #### C HM7 #### [facility] (DEFAULT) [address] [address] Creatinine [Mass/Vol] 0.54 mg/dL Normal 0.50-1.20 [facility] Comment on above: Performed By: #### C HM7 #### [facility] (DEFAULT) [address] [address] eGFR, CKD-EPI, Female > Normal >=60 [facility] Comment on above: Result Comment: Repo rted eGFR is based on the CKD-EPI 2020 equation using creatinine, age, and sex. Performed By: #### C HM7 #### [facility] (DEFAULT) [address] [address] Glucose [Mass/Vol] 94 mg/dL Normal 70-99 [facility] Comment on above: Performed By: #### C HM7 #### [facility] (DEFAULT) [address] [place] [address] 77683 Osmolality [Osmolality] 283 mosm/kg Normal 278-[address] [facility] Comment on above: Performed By: #### C HM7 #### [facility] (DEFAULT) [address] [place] [address] Potassium [Moles/Vol] 4.2 mmol/L Normal 3.5-5.0 [facility] Comment on above: Performed By: #### C HM7 #### [facility] (DEFAULT) [address] [place] [address] 14198 Sodium [Moles/Vol] 136 mmol/L Normal 135-145 [facility] Comment on above: Performed By: #### C HM7 #### [facility] (DEFAULT) [address] [place] [address] 25503 Urea nitrogen [Mass/Vol] 6 mg/dL Low 7-[address] [facility] Comment on above: Performed By: #### C HM7 #### [facility] (DEFAULT) [address] [place] [address] 57101 Urea nitrogen/Creatinine [Mass ratio] 11 mg/mg Normal [facility] Comment on above: Performed By: #### C HM7 #### [facility] (DEFAULT) [address] [place] [address] 03827 ABORH TYPE RECONFIRMATIONon 09-25-2023 ABO/RH(D) TYPE Positive Normal [facility] Comment on above: Performed By: #### T YPEC #### [facility] (DEFAULT) [address] [place] [address] 01799 C REACTIVE PROTEINon 023 CRP [Mass/Vol] 95.29 mg/L High <10.[address] [facility] Comment on above: Performed By: #### V ANCTR #### [facility] (DEFAULT) [address] [place] [address] 28708 CBC,PLATELETSon 09-25-2023 Hematocrit (Bld) [Volume fraction] 23.3 % Low 34.9-44.[address] [facility] Comment on above: Performed By: #### C HM7, MGO #### [facility] (DEFAULT) [address] [place] [address] 08968 Hemoglobin (Bld) [Mass/Vol] 7.4 g/dL Low 11.4-15.[address] [facility] Comment on above: Performed By: #### C HM7, MGO #### [facility] (DEFAULT) [address] [place] [address] 24968 MCV (RBC) [Entitic vol] 86.9 fL Normal 79.6-97.7 [facility] Comment on above: Performed By: #### C HM7, MGO #### [facility] (DEFAULT) [address] [place] [address] 89451 Mean Cell Hgb 27.6 pg Normal 25.9-33.[address] [facility] Comment on above: Performed By: #### C HM7, MGO #### [facility] (DEFAULT) [address] [place] [address] 46608 Mean Cell Hgb Conc 31.8 g/dL Normal 31.4-35.9 [facility] Comment on above: Performed By: #### C HM7, MGO #### [facility] (DEFAULT) [address] [place] [address] 11315 Platelet mean volume (Bld) [Entitic vol] 9.7 fL Normal 8.5-12.[address] [facility] Comment on above: Performed By: #### C HM7, MGO #### [facility] (DEFAULT) [address] [place] [address] 71721 Platelets (Bld) [#/Vol] 360 10*3/uL Normal 150-[address] [facility] Comment on above: Performed By: #### C HM7, MGO #### [facility] (DEFAULT) [address] [place] [address] 00119 RBC (Bld) [#/Vol] 2.68 10*6/uL Low 3.91-5.[address] [facility] Comment on above: Performed By: #### Martir HM7, MGO #### [facility] (DEFAULT) [address] [place] [address] 54972 RBC Distribution 14.6 % Normal 10.8-14.9 [facility] Comment on above: Performed By: #### C HM7, MGO #### [facility] (DEFAULT) [address] [place] [address] 89598 WBC (Bld) [#/Vol] 5.41 10*3/uL Normal 3.99-11.[address] [facility] Comment on above: Performed By: #### C HM7, MGO #### [facility] (DEFAULT) [address] [place] [address] 49028 CHEM 7 (LYTES,BUN,CREA,GLUC) on 09-25-2023 Anion gap [Moles/Vol] 13 mmol/L Normal 7-17 [facility] Comment on above: Performed By: #### C HM7, MGO #### [facility] (DEFAULT) [address] [place] [address] 46806 Chloride [Moles/Vol] 97 mmol/L Low 98-[address] [facility] Comment on above: Performed By: #### C HM7, MGO #### [facility] (DEFAULT) [address] [place] [address] 62249 CO2 [Moles/Vol] 27 mmol/L Normal 21-31 [facility] Comment on above: Performed By: #### C HM7, MGO #### [facility] (DEFAULT) [address] [place] [address] 64888 Creatinine [Mass/Vol] 0.56 mg/dL Normal 0.50-1.20 [facility] Comment on above: Performed By: #### C HM7, MGO #### [facility] (DEFAULT) [address] [place] [address] 11108 eGFR, CKD-EPI, Female > Normal >=60 [facility] Comment on above: Result Comment: Repo rted eGFR is based on the CKD-EPI 2020 equation using creatinine, age, and sex. Performed By: #### C HM7, MGO #### [facility] (DEFAULT) [address] [place] [address] 59042 Glucose [Mass/Vol] 99 mg/dL Normal 70-99 [facility] Comment on above: Performed By: #### C HM7, MGO #### [facility] (DEFAULT) [address] [place] [address] 16792 Osmolality [Osmolality] 278 mosm/kg Normal 278-[address] [facility] Comment on above: Performed By: #### C HM7, MGO #### [facility] (DEFAULT) [address] [place] [address] 21827 Potassium [Moles/Vol] 3.8 mmol/L Normal 3.5-5.0 [facility] Comment on above: Performed By: #### C HM7, MGO #### [facility] (DEFAULT) [address] [place] [address] 84734 Sodium [Moles/Vol] 133 mmol/L Low 135-145 [facility] Comment on above: Performed By: #### C HM7, MGO #### [facility] (DEFAULT) [address] [place] [address] 60411 Urea nitrogen [Mass/Vol] 8 mg/dL Normal 7-[address] [facility] Comment on above: Performed By: #### C HM7, MGO #### [facility] (DEFAULT) [address] [place] [address] 81827 Urea nitrogen/Creatinine [Mass ratio] 14 mg/mg Normal [facility] Comment on above: Performed By: #### C HM7, MGO #### [facility] (DEFAULT) [address] [place] [address] 23267 Anion gap [Moles/Vol] 12 mmol/L Normal 7-17 [facility] Comment on above: Performed By: #### V ANCTR #### [facility] (DEFAULT) [address] [address] Chloride [Moles/Vol] 96 mmol/L Low 98-[address] [facility] Comment on above: Performed By: #### V ANCTR #### [facility] (DEFAULT) [address] [place] [address] 48334 CO2 [Moles/Vol] 28 mmol/L Normal 21-31 [facility] Comment on above: Performed By: #### V ANCTR #### U [facility] (DEFAULT) [address] [address] Creatinine [Mass/Vol] 0.46 mg/dL Low 0.50-1.20 [facility] Comment on above: Performed By: #### V ANCTR #### [facility] (DEFAULT) [address] [place] [address] 05513 eGFR, CKD-EPI, Female > Normal >=60 [facility] Comment on above: Result Comment: Repo rted eGFR is based on the CKD-EPI 2020 equation using creatinine, age, and sex. Performed By: #### V ANCTR #### U [facility] (DEFAULT) [address] [place] [address]50 Glucose [Mass/Vol] 104 mg/dL High 70-99 [facility] Comment on above: Performed By: #### V ANCTR #### U [facility] (DEFAULT) [address] [place] [address] 48900 Osmolality [Osmolality] 276 mosm/kg Low 278-[address] [facility] Comment on above: Performed By: #### V ANCTR #### U [facility] (DEFAULT) [address] [address] Potassium [Moles/Vol] 3.7 mmol/L Normal 3.5-5.0 [facility] Comment on above: Performed By: #### V ANCTR #### U [facility] (DEFAULT) [address] [place] [address] 53462 Sodium [Moles/Vol] 132 mmol/L Low 135-145 [facility] Comment on above: Performed By: #### V ANCTR #### U [facility] (DEFAULT) [address] [place] [address] 43850 Urea nitrogen [Mass/Vol] 8 mg/dL Normal 7-[address] [facility] Comment on above: Performed By: #### V ANCTR #### U [facility] (DEFAULT) [address] [place] [address] 00526 Urea nitrogen/Creatinine [Mass ratio] 17 mg/mg Normal [facility] Comment on above: Performed By: #### V ANCTR #### U [facility] (DEFAULT) [address] [place] [address] 56245 HEPATIC FUNCTION PANELon Albumin [Mass/Vol] 2.6 g/dL Low 3.5-5.0 [facility] Comment on above: Performed By: #### C HM7, MGO #### U [facility] (DEFAULT) [address] [place] [address]609 ALP [Catalytic activity/Vol] 126 U/L Normal 32-[address] [facility] Comment on above: Performed By: #### C HM7, MGO #### U [facility] (DEFAULT) [address] [place] [address] 87720 ALT [Catalytic activity/Vol] 16 U/L Normal 9-[address] [facility] Comment on above: Performed By: #### C HM7, MGO #### U [facility] (DEFAULT) [address] [place] [address] 59954 AST [Catalytic activity/Vol] 18 U/L Normal 10-[address] [facility] Comment on above: Performed By: #### C HM7, MGO #### U [facility] (DEFAULT) [address] [place] [address] 41223 Bilirubin [Mass/Vol] 0.2 mg/dL Normal <1.[address] [facility] Comment on above: Performed By: #### C HM7, MGO #### [facility] (DEFAULT) [address] [place] [address] 99029 Bilirubin Direct < Normal <0.3 [facility] Comment on above: Performed By: #### C HM7, MGO #### U [facility] (DEFAULT) [address] [place] [address] 38982 Protein [Mass/Vol] 6.5 g/dL Normal 6.4-8.3 [facility] Comment on above: Performed By: #### C HM7, MGO #### [facility] (DEFAULT) [address] [place] [address]1942 CBC,PLATELETSon 09-24-2023 Hematocrit (Bld) [Volume fraction] 23.3 % Low 34.9-44.[address] [facility] Comment on above: Performed By: #### B LDCULT #### [facility] (DEFAULT) [address] [place] [address] 70808 Hemoglobin (Bld) [Mass/Vol] 7.2 g/dL Low 11.4-15.[address] [facility] Comment on above: Performed By: #### B LDCULT #### [facility] (DEFAULT) [address] [place] [address] 98591 MCV (RBC) [Entitic vol] 88.6 fL Normal 79.6-97.7 O [facility] Comment on above: Performed By: #### B LDCULT #### [facility] (DEFAULT) [address] [place] [address] 67799 Mean Cell Hgb 27.4 pg Normal 25.9-33.[address] [facility] Comment on above: Performed By: #### B LDCULT #### [facility] (DEFAULT) [address] [place] [address] 22309 Mean Cell Hgb Conc 30.9 g/dL Low 31.4-35.9 [facility] Comment on above: Performed By: #### B LDCULT #### [facility] (DEFAULT) [address] [place] [address] 05405 Platelet mean volume (Bld) [Entitic vol] 10.0 fL Normal 8.5-12.[address] [facility] Comment on above: Performed By: #### B LDCULT #### [facility] (DEFAULT) [address] [place] [address] 98845 Platelets (Bld) [#/Vol] 406 10*3/uL High 150-[address] [facility] Comment on above: Performed By: #### B LDCULT #### [facility] (DEFAULT) [address] [place] [address] 60164 RBC (Bld) [#/Vol] 2.63 10*6/uL Low 3.91-5.[address] [facility] Comment on above: Performed By: #### B LDCULT #### [facility] (DEFAULT) [address] [place] [address] 52534 RBC Distribution 14.7 % Normal 10.8-14.9 [facility] Comment on above: Performed By: #### B LDCULT #### [facility] (DEFAULT) [address] [place] [address] 75417 WBC (Bld) [#/Vol] 7.19 10*3/uL Normal 3.99-11.[address] [facility] Comment on above: Performed By: #### B LDCULT #### [facility] (DEFAULT) [address] [place] [address] 13981 CHEM 7 (LYTES,BUN,CREA,GLUC) on 09-24-2023 Anion gap [Moles/Vol] 14 mmol/L Normal 7-17 [facility] Comment on above: Performed By: #### C HM7, MGO #### [facility] (DEFAULT) [address] [place] [address] 70150 Chloride [Moles/Vol] 95 mmol/L Low 98-[address] [facility] Comment on above: Performed By: #### C HM7, MGO #### [facility] (DEFAULT) [address] [place] [address] 72249 CO2 [Moles/Vol] 26 mmol/L Normal 21-31 [facility] Comment on above: Performed By: #### C HM7, MGO #### [facility] (DEFAULT) [address] [place] [address] 82310 Creatinine [Mass/Vol] 0.53 mg/dL Normal 0.50-1.20 [facility] Comment on above: Performed By: #### C HM7, MGO #### U [facility] (DEFAULT) [address] [place] [address] 00795 eGFR, CKD-EPI, Female > Normal >=60 [facility] Comment on above: Result Comment: Repo rted eGFR is based on the CKD-EPI 2020 equation using creatinine, age, and sex. Performed By: #### C HM7, MGO #### U [facility] (DEFAULT) [address] [place] [address] 93449 Glucose [Mass/Vol] 104 mg/dL High 70-99 [facility] Comment on above: Performed By: #### C HM7, MGO #### [facility] (DEFAULT) [address] [place] [address] Osmolality [Osmolality] 274 mosm/kg Low 278-[address] [facility] Comment on above: Performed By: #### C HM7, MGO #### U [facility] (DEFAULT) [address] [place] [address] 11927 Potassium [Moles/Vol] 3.5 mmol/L Normal 3.5-5.0 [facility] Comment on above: Performed By: #### C HM7, MGO #### [facility] (DEFAULT) [address] [place] [address] 54063 Sodium [Moles/Vol] 131 mmol/L Low 135-145 [facility] Comment on above: Performed By: #### C HM7, MGO #### U [facility] (DEFAULT) [address] [place] [address] 99121 Urea nitrogen [Mass/Vol] 8 mg/dL Normal 7-[address] [facility] Comment on above: Performed By: #### C HM7, MGO #### U [facility] (DEFAULT) [address] [place] [address] 60501 Urea nitrogen/Creatinine [Mass ratio] 15 mg/mg Normal [facility] Comment on above: Performed By: #### C HM7, MGO #### U [facility] (DEFAULT) [address] [place] [address] MAGNESIUMon 09-24-2023 Magnesium [Mass/Vol] 1.7 mg/dL Normal 1.6-2.[address] [facility] Comment on above: Performed By: #### C HM7, MGO #### U [facility] (DEFAULT) [address] [place] [address] 79978 TYPE AND SCREENon 09-24-2023 ABO/RH(D) TYPE Positive Normal [facility] Comment on above: Performed By: #### X M #### [facility] (DEFAULT) [address] [place] [address] 35375 CBC,PLATELETSon 09-23-2023 Hematocrit (Bld) [Volume fraction] 22.0 % Low 34.9-44.[address] [facility] Comment on above: Performed By: #### V ANCTR #### U [facility] (DEFAULT) [address] [place] [address] 72469 Hemoglobin (Bld) [Mass/Vol] 6.8 g/dL Critically low 11.4-15.[address] [facility] Comment on above: Result Comment: This result has been called to MARK BUSH RN by LAURA DOSS on 09 23 2023 at 1815, and has been read back. Performed By: #### V ANCTR #### U [facility] (DEFAULT) [address] [place] [address] MCV (RBC) [Entitic vol] 87.6 fL Normal 79.6-97.7 O [facility] Comment on above: Performed By: #### V ANCTR #### U [facility] (DEFAULT) [address] [address] Mean Cell Hgb 27.1 pg Normal 25.9-33.[address] [facility] Comment on above: Performed By: #### V ANCTR #### U [facility] (DEFAULT) [address] [address] Mean Cell Hgb Conc 30.9 g/dL Low 31.4-35.9 [facility] Comment on above: Performed By: #### V ANCTR #### U [facility] (DEFAULT) [address] [address] Platelet mean volume (Bld) [Entitic vol] 10.2 fL Normal 8.5-12.[address] [facility] Comment on above: Performed By: #### V ANCTR #### [facility] (DEFAULT) [address] [address] Platelets (Bld) [#/Vol] 374 10*3/uL Normal 150-[address] [facility] Comment on above: Performed By: #### V ANCTR #### [facility] (DEFAULT) [address] [address] RBC (Bld) [#/Vol] 2.51 10*6/uL Low 3.91-5.[address] [facility] Comment on above: Performed By: #### V ANCTR #### U [facility] (DEFAULT) [address] [address] RBC Distribution 14.6 % Normal 10.8-14.9 [facility] Comment on above: Performed By: #### V ANCTR #### U [facility] (DEFAULT) [address] [address] WBC (Bld) [#/Vol] 7.70 10*3/uL Normal 3.99-11.[address] [facility] Comment on above: Performed By: #### V ANCTR #### [facility] (DEFAULT) [address] [place] [address] ECHOCARDIOGRAMon 09-23-2023 Echocardiography TTE for evaluation o f endocarditis with MSSA bacteremia Poor image quality, technically difficult study Left ventricular size is normal, systolic function low normal. LV ejection fraction is 50-55%. Right ventricular size and systolic function are normal. No valvular vegetations visualized to the extent of the image quality, but no significant valvular disease by Doppler Right ventricular systolic pressure is estimated at 31 mmHg (estimated RA pressure 5 mmHg). Further details as outlined below. Table formatting from the original result was not included. Images from the original result were not included. Facility [facility] Patient Information Patient Name Geovanny Mejía Legal Sex Female Indication for Exam Priority: Routine Dx: Bacteremia [R78.81 (ICD-10-CM)] Order Question Reason for Exam MSSA bacteremia Interpretation Summary TTE for evaluation of endocarditis with MSSA bacteremia Poor image quality, technically difficult study Left ventricular size is normal, systolic function low normal. LV ejection fraction is 50-55%. Right ventricular size and systolic function are normal. No valvular vegetations visualized to the extent of the image quality, but no significant valvular disease by Doppler Right ventricular systolic pressure is estimated at 31 mmHg (estimated RA pressure 5 mmHg). Further details as outlined below. Findings Left Ventricle Chamber size is normal. Normal wall thickness. Concentric remodeling is present. Normal global systolic function. Regional wall motion is normal. Ejection fraction is low normal (50-55%). Diastolic function is normal. Right Ventricle Chamber size is normal. Systolic function is normal. Right ventricular S' is 23.27 cm/s. Tricuspid annular plane systolic excursion is 1.91 cm. Fractional area change equals 46.8 %. Left Atrium Chamber size is normal. Right Atrium Chamber size is normal. Septum The atrial septum is normal. Mitral Valve Normal appearing leaflets. Leaflet mobility is normal. No regurgitation. No valve stenosis. Aortic Valve Trileaflet valve. Leaflet mobility is normal. No regurgitation. No stenosis. Tricuspid Valve Normal leaflets. Leaflet mobility is normal. Trace regurgitation. No stenosis. Estimated right ventricular systolic pressure is 31 mmHg. Estimated right atrial pressure is 5.00 mmHg. Pulmonic Valve Pulmonic valve not well visualized. Normal structure. No regurgitation. No stenosis. Aorta No dilation to extent seen. SOV: 3.32 cm. STJ: 3.12 cm. Pericardium No pericardial effusion. IVC/SVC Inferior vena cava not well visualized. The inferior vena cava is normal in size. Pulmonary Artery Pulmonary artery not well visualized. Reading Providers Reading Role Read Date Aiden Jorgensen MD Echo [place] 09/23/2023 Left Heart Measurements LV - Systole LVIDD 4.26 cm IVS 1.1 cm LVIDS 2.79 cm PW 0.99 cm LV RWT 0.46 LV Mass Index 83.9 g/m2 LV EDV BP 102 mL LV ESV BP 50 mL BP EF 51 % LV stroke volume BP (ml) 52 mL LV stroke volume index BP 29.21 mL/m2 LV - Diastole MV pk E nemesio 0.86 m/s MV pk A nemesio 0.84 m/s E/A ratio 1.02 e' septal pk nemesio 0.1 m/s e' lateral pk nemesio 0.14 m/s Avg e' pk nemesio 0.12 m/s E/e' septal ratio 8.37 E/e' lateral ratio 5.94 Avg E/e' ratio 7.15 LV - HCM AV LVOT peak gradient 7 mmHg Left Atrium LA ESV SP 4CH (MOD) 37 mL LA ESV SP 2CH (MOD) 36 mL LA ESV BP (MOD) index 21 mL/m2 Right Heart Measurements RV - 2D RV basal diam 3.7 cm RV mid diam 2.3 cm RV long diam 7.5 cm RV Area diastolic 20.3 cm2 RV Area systolic 10.8 cm2 RV Fractional area change 46.8 % RV - Doppler TAPSE 1.91 cm RV S' 23.27 cm/s Right Atrium RA vol index 4CH (MOD) 16.29 mL/m2 EST RAP 5 mmHg Great Vessels Aortic Root - End Diastolic Sinus 3.32 cm STJ 3.12 cm Inferior Vena Cava IVC ostium 1.3 cm Doppler Measurements - Aortic Valve Stenosis LVOT diameter 2.2 cm LVOT area 3.8 cm2 LVOT peak nemesio 1.35 m/s LVOT peak VTI 18.9 cm Stroke Volume 72 cm/mL Stroke volume index 40 Ao peak nemesio 1.61 m/s Ao VTI 24.07 cm AV peak gradient 10 mmHG AV mean gradient 6 mmHg DI (VTI) 0.79 m/2 DI (Vmax) 0.84 OLEG (continuity Vmax) 3.19 cm2 OLEG index (continuity Vmax) 1.79 m/s OLEG (continuity VTI) 2.98 cm2 OLEG index (continuity VTI) 1.68 cm2/m2 LVOT stroke volume 72 cm3 LVOT stroke volume index 40.34 ml/m2 Doppler Measurements - Mitral Valve Stenosis MV pk E nemesio 0.86 m/s MV pk A nemesio 0.84 m/s E/A ratio 1.02 MV stenosis pressure 1/2 time 52.88 ms MV valve area p 1/2 method 4.16 cm2 PISA-MS MV pk E nemesio 0.86 m/s Doppler Measurements - Tricuspid Valv (more content not included)... Normal [facility] LACTATE, BLOODon 09-23-2023 Lactate, Blood 1.2 mmol/L Normal 0.5-1.[address] [facility] Comment on above: Performed By: #### C HM7, MGO #### [facility] (DEFAULT) [address] [place] [address] CHEM 7 (LYTES,BUN,CREA,GLUC) on 09-22-2023 Anion gap [Moles/Vol] 13 mmol/L Normal 7-17 [facility] Comment on above: Performed By: #### U HCG #### [facility] (DEFAULT) [address] [place] [address] 58104 Chloride [Moles/Vol] 97 mmol/L Low 98-[address] [facility] Comment on above: Performed By: #### U HCG #### U [facility] (DEFAULT) [address] [place] [address] 82177 CO2 [Moles/Vol] 25 mmol/L Normal - [facility] Comment on above: Performed By: #### U HCG #### [facility] (DEFAULT) [address] [place] [address] Creatinine [Mass/Vol] 0.59 mg/dL Normal 0.50-1.20 [facility] Comment on above: Performed By: #### U HCG #### [facility] (DEFAULT) [address] [place] [address] 05293 eGFR, CKD-EPI, Female > Normal >=60 [facility] Comment on above: Result Comment: Repo rted eGFR is based on the CKD-EPI 2020 equation using creatinine, age, and sex. Performed By: #### U HCG #### [facility] (DEFAULT) [address] [place] [address] 14875 Glucose [Mass/Vol] 133 mg/dL High 70-99 [facility] Comment on above: Performed By: #### U HCG #### [facility] (DEFAULT) [address] [place] [address] 68529 Osmolality [Osmolality] 277 mosm/kg Low 278-[address] [facility] Comment on above: Performed By: #### U HCG #### [facility] (DEFAULT) [address] [place] [address] 78520 Potassium [Moles/Vol] 3.8 mmol/L Normal 3.5-5.0 [facility] Comment on above: Performed By: #### U HCG #### [facility] (DEFAULT) [address] [place] [address] 91137 Sodium [Moles/Vol] 131 mmol/L Low 135-145 [facility] Comment on above: Performed By: #### U HCG #### [facility] (DEFAULT) [address] [place] [address] 38045 Urea nitrogen [Mass/Vol] 10 mg/dL Normal 7-[address] [facility] Comment on above: Performed By: #### U HCG #### [facility] (DEFAULT) [address] [place] [address] 34571 Urea nitrogen/Creatinine [Mass ratio] 17 mg/mg Normal [facility] Comment on above: Performed By: #### U HCG #### [facility] (DEFAULT) [address] [place] [address] ABDOMEN/PELVIS WITH CONTR [place] 09-22-2023 CT ABDOMEN/PELVIS WITH CONTRAST EXAM: CT ABDOMEN/PELVIS WITH CONTRAST, 09/21/2023 12:20 PM COMPARISON: CT abdomen/pelvis from outside facility dated September 17, 2023. CLINICAL INDICATIONS: abd abscess, known. from OSH looking for stable findings; TECHNIQUE: CT scanning was performed of the abdomen and pelvis following the administration of intravenous contrast. PROTOCOL: Standard. CONTRAST: iohexol (OMNIPAQUE) 350 MG/ML injection 1-171 mL; Route of Administration: Intravenous; Dose: 90 mL. FINDINGS: Lung Bases: Bilateral pleural effusion with atelectatic changes, more prominent on the left. Please see dedicated chest CT scan of the same date for full description of the intra-thoracic contents. ABDOMEN Liver: Liver is normal in size and CT density. No focal lesions. Portal and hepatic veins are patent. Biliary/Gallbladder: The gallbladder is partially distended without evidence of radiopaque stones. Suspected sludge. The biliary tree is nondilated. Spleen: Spleen is normal in size and CT density, with lobulated appearance. Stable pericapsular calcifications in the splenic dome. Stable 1.0 cm hypoattenuating subcapsular focus (series 2 image 24), which could represent a small cyst, hemangioma or sequela of prior insult. Pancreas: Pancreas is normal. There is no evidence of pancreatic mass or peripancreatic fluid. Adrenals: Adrenal glands are unremarkable. Kidneys: Kidneys are normal in size and enhance symmetrically, with lobulated contour. Punctate nonobstructing calculus in the inferior pole of the left kidney (series 2 image 53). There is no hydronephrosis. Subcentimeter hypodense foci in both kidneys, too small to characterize but stable from prior exam and favored to represent cysts. Retroperitoneum/Lymph Nodes/Vasculature: Prominent retroperitoneal and pelvic lymph nodes, nonenlarged by size criteria and similar from prior exam, likely reactive. Left retroperitoneal fluid collection containing air foci and a percutaneous pigtail catheter. The collection has a community representative measurement of 5.4 x 2.7 cm (series 2 image 77), previously 6.0 x 3.2 cm when measured in similar fashion. This fluid appears to extend between the abdominal aorta/left common iliac vessels and the medial aspect of the psoas and iliopsoas muscles. Abdominal aorta and IVC are patent, normal in course and caliber. Scattered calcified atherosclerotic plaques visualized throughout the abdominal aorta and branches. Gastrointestinal/Mese ntery: The bowel loops are non-dilated. No evidence of bowel obstruction. Hypoattenuating lesion/structure visualized along the right aspect of the rectal wall, with a community representative measurement of 3.1 x 1.4 cm (series 2 image 107 and series 3 image 129). No ascites or free intraperitoneal air. PELVIS Bladder: The bladder is partially distended with presence of a Ocasio catheter. Air within the bladder, likely related to instrumentation. Genital: Uterus is not well visualized, likely resected. Soft tissue density along the left pelvic sidewall, favored to represent the left ovary Soft Tissues: Mild diffuse body wall edema. Mild atrophy of the left piriformis and gluteal muscles when compared to the contralateral. Bony Structures: Visualized bony structures demonstrate multilevel degenerative changes. Suspected right sacroiliitis. Prominent Schmorl node in the inferior endplate of L3 vertebral body. IMPRESSION: 1. Slight interval decreased size of left retroperitoneal fluid collection versus cystic lesion with presence of a percutaneous pigtail catheter. Few internal air foci could be related to gas-forming organisms versus instrumentation. 2. Indeterminate hypoattenuating lesion/structure along the right aspect of the rectal wall. 3. Suspected right sacroiliitis. 4. Punctate left nonobstructing nephrolithiasis. 5. Ancillary findings as described above. Please refer to same day chest CT for detailed description of intrathoracic contents. Normal [facility] Case Management Daily Noteon 09-22-2023 Case Management Daily Note [facility] Case Management Patient: GEOVANNY MEJÍA. : 1970 [place], [place] [address] Location: [phone] Unit #: [id number] Case Management Daily Note Evelyne Pena RN Service Date: 09/11/23 Case Mgmt Daily Note - Plan of Care [employer] Agrees with Attending and Consult Plan: Yes - Patient Preferences AND Goals What is the patient's preference?: Home Care Recommended acute discharge goals: Home Care - Hospital Stay Days Day 1 Comment: 09/08 Met with patient in the room. Patient is from [place]. She is up here to visit her sister. Patient reporting she is normally independent. Does not have a PCP. Patient would like to use [facility] for meds. Planning to have her cousin pick her up at d/c. Contact is her cousin Ursula. Denies having LW/dPOA. [employer]: Evelyne Pena, RN Day 2 Comment: 09/09 Met with patient in the room. Patient asking to get up and move around. PT/OT to [facility]. S/p L ABD drain placement. Patient agreeable to [facility] for drain mgmt if needed. Reporting she will be going to [facility] at d/c to stay with her cousin Ursula. CM spoke with patients cousin Ursula via telephone who reports she is ok with [facility] coming to her home if patient would go there at d/c. Ursula reporting patient was homeless in [place] and recently move to [place] with her sister Monique. [employer]: Evelyne Pena, RN Day 3 Comment: 09/10 D/c needs pending medical course. Jr present. 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 PT/OT. ID c/s. Therapy recs for IPR vs OP PT. Will follow to assist with d/c needs. [employer]: Evelyne Pena, RN Day 4 Comment: 09/11 Met with patient in the room who is planning to d/c to her cousin Gena lutz in [place], [place]. Patient is agreeable to [facility]. CM spoke with Ursula who is agreeable for patient to come there at d/c. Referral sent to [facility]. Await approval. [employer]ATIVE OFFICER. ABD drain. NPO. ID c/s. PT/OT. [employer]: Evelyne Pena RN - Home Health/IV Infusion/Wound Vac Home Health Referral Indicated: Yes Home Health List Provided: Yes Indication for Home Health: Wound Care, Other Patient's Response: Yes Home Health Agencies: [facility] Patient given the option to view quality scores of facility?: Yes - Transportation Mode of Transportation: Private Vehicle - Respiratory Equipment Does the patient have a nebulizer at home?: No - * L * Length of Stay LOS (Including day of Admission and Discharge): 4 LOS Score: 4 - * C * Comorbidities Select All Conditions that Apply: No Comorbidity Condition Comorbidities Total Score: 0 - * E * Emergency Department Visits # of ER visits,6mos prior to admit,excl this admits ER visit: 0 Enter this number or 4 (whichever is smaller): 0 - LACE SCORE LACE Score: 4 - ANTICIPATED DISCHARGE Anticipated Discharge Date: 09/14/23 Is a ARCHIBALD Form Required?: No Entered by: Evelyne Pena RN on 09/11/23 1129 Report Signed by: Evelyne Pena RN on 09/22/23 1622 < > Co-Signed by: on Normal [facility] Case Management Daily Note [facility] Case Management Patient: GEOVANNY MEJÍA [address] : 1970 [place], [place] [address] Location: [address] [place] [address] Unit #: [id number] Case Management Daily Note Evelyne Pena RN Service Date: 09/12/23 Case Mgmt Daily Note - Plan of Care [employer] Agrees with Attending and Consult Plan: Yes - Patient Preferences AND Goals What is the patient's preference?: New SNF Recommended acute discharge goals: New SNF - COVID-19 Was Position Statement Letter Delivered?: Yes - Hospital Stay Days Day 1 Comment: 09/08 Met with patient in the room. Patient is from [place]. She is up here to visit her sister. Patient reporting she is normally independent. Does not have a PCP. Patient would like to use [facility] for meds. Planning to have her cousin pick her up at d/c. Contact is her cousin Ursula. Denies having LW/dPOA. [employer]: Evelyne Pena RN Day 2 Comment: 09/09 Met with patient in the room. Patient asking to get up and move around. PT/OT to eval. S/p L ABD drain placement. Patient agreeable to [facility] for drain mgmt if needed. Reporting she will be going to [facility] at d/c to stay with her cousin Ursula. spoke with patients cousin Ursula via telephone who reports she is ok with [facility] coming to her home if patient would go there at d/c. Ursula reporting patient was homeless in [place] and recently move to [place] with her sister Monique. [employer]: Evelyne Pena, RN Day 3 Comment: 09/10 D/c needs pending medical course. Jr present. 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 PT/OT. ID c/s. Therapy recs for IPR vs OP PT. Will follow to assist with d/c needs. [employer]: Evelyne Pena, RN Day 4 Comment: 09/11 Met with patient in the room who is planning to d/c to her cousin Gena lutz in [place], [place]. Patient is agreeable to [facility]. CM spoke with Ursula who is agreeable for patient to come there at d/c. Referral sent to [facility]. Await approval. [employer]ATIVE OFFICER. ABD drain. NPO. ID c/s. PT/OT. [employer]: Evelyne Pena, RN Day 5 Comment: 09/12 Met with patient in the room to discuss d/c plan. Patient unable to move b/l LE. No sensation to RLE. Does have sesation to LLE. PT/OT recommending SNF, patient agreeable. She would like to go somewhere near her cousin Ursula in [place], [place]. CM assisted patient with changing her address with her [facility] insurance to an [place] address. SW c/s for SNF placement and [facility] assist with [place]. Patient will need a precert. 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 If patient would improve with mobility, she has been accepted to [facility]. CM spoke with Ursula via telephone to update. [employer]: Evelyne Pena, RN - Home Health/IV Infusion/Wound Vac Home Health Referral Indicated: Yes Home Health List Provided: Yes Indication for Home Health: Wound Care, Other Patient's Response: Yes Home Health Agencies: [facility] Patient given the option to view quality scores of facility?: Yes - Transportation Mode of Transportation: Private Vehicle - Respiratory Equipment Does the patient have a nebulizer at home?: No - * L * Length of Stay LOS (Including day of Admission and Discharge): 5 LOS Score: 4 - * C * Comorbidities Select All Conditions that Apply: No Comorbidity Condition Comorbidities Total Score: 0 - * E * Emergency Department Visits # of ER visits,6mos prior to admit,excl this admits ER visit: 0 Enter this number or 4 (whichever is smaller): 0 - LACE SCORE LACE Score: 4 - ANTICIPATED DISCHARGE Anticipated Discharge Date: 09/16/23 Is a ARCHIBALD Form Required?: No Entered by: Evelyne Pena RN on 09/12/23 1029 Report Signed by: Evelyne Pena RN on 09/22/23 1622 < > Co-Signed by: on Normal [facility] BLOOD CULTUREon 09-21-2023 Bacteria identified Cx Nom (Unsp spec) NO GROWTH DAY 5 OF [address] [facility] Comment on above: Order Comment: 2 Bot tles (1 Set - consists of 1 Aerobic bottle and 1 Anaerobic bottle) - 1st Peripheral Draw For syringe method draw: If able to obtain adequate sample (20 ml) inoculate anaerobic bottle first If inadequate sample obtained (less than 20 ml) inoculate aerobic bottle first For vacutainer method draw: Fill aerobic bottle first, then anaerobic Performed By: #### B LDCULT #### [facility] (DEFAULT) [address] [address] Order Comment: 2 Bot tles (1 Set - consists of 1 Aerobic bottle and 1 Anaerobic bottle) -1st Peripheral DrawFor syringe method draw:If able to obtain adequate sample (20 ml) inoculate anaerobic bottle firstIf inadequate sample obtained (less than 20 ml) inoculate aerobic bottle firstFor vacutainer method draw: Fill aerobic bottle first, then anaerobicResults may be compromised due to volume of BACT\ALERT bottle exceeding 10mLs . The optimal blood volume is 8-10 mls per aerobic/anaerobic blood culture bottle. Performed By: #### U HCG #### [facility] (DEFAULT) [address] [place] [address] 26346 CBC,PLATELETSon 09-21-2023 Hematocrit (Bld) [Volume fraction] 24.7 % Low 34.9-44.[address] [facility] Comment on above: Performed By: #### C HM7, MGO #### [facility] (DEFAULT) [address] [place] [address] 06085 Hemoglobin (Bld) [Mass/Vol] 7.7 g/dL Low 11.4-15.[address] [facility] Comment on above: Performed By: #### C HM7, MGO #### [facility] (DEFAULT) [address] [place] [address] 27851 MCV (RBC) [Entitic vol] 89.5 fL Normal 79.6-97.7 [facility] Comment on above: Performed By: #### C HM7, MGO #### [facility] (DEFAULT) [address] [place] [address] 27145 Mean Cell Hgb 27.9 pg Normal 25.9-33.[address] [facility] Comment on above: Performed By: #### C HM7, MGO #### [facility] (DEFAULT) [address] [place] [address] 57349 Mean Cell Hgb Conc 31.2 g/dL Low 31.4-35.9 [facility] Comment on above: Performed By: #### C HM7, MGO #### [facility] (DEFAULT) [address] [place] [address] 01888 Platelet mean volume (Bld) [Entitic vol] 10.0 fL Normal 8.5-12.[address] [facility] Comment on above: Performed By: #### C HM7, MGO #### [facility] (DEFAULT) [address] [place] [address] 88818 Platelets (Bld) [#/Vol] 481 10*3/uL High 150-[address] [facility] Comment on above: Performed By: #### C HM7, MGO #### [facility] (DEFAULT) [address] [place] [address] 60712 RBC (Bld) [#/Vol] 2.76 10*6/uL Low 3.91-5.[address] [facility] Comment on above: Performed By: #### C HM7, MGO #### [facility] (DEFAULT) [address] [place] [address] 59503 RBC Distribution 15.0 % High 10.8-14.9 [facility] Comment on above: Performed By: #### C HM7, MGO #### [facility] (DEFAULT) [address] [place] [address] 66788 WBC (Bld) [#/Vol] 8.57 10*3/uL Normal 3.99-11.[address] [facility] Comment on above: Performed By: #### C HM7, MGO #### [facility] (DEFAULT) [address] [place] [address] 27489 CHEM 7 (LYTES,BUN,CREA,GLUC) on 09-21-2023 Anion gap [Moles/Vol] 14 mmol/L Normal 7-17 [facility] Comment on above: Performed By: #### V ANCTR #### [facility] (DEFAULT) [address] [place] [address] 81265 Chloride [Moles/Vol] 93 mmol/L Low 98-[address] [facility] Comment on above: Performed By: #### V ANCTR #### [facility] (DEFAULT) [address] [place] [address] 19388 CO2 [Moles/Vol] 24 mmol/L Normal 21-31 [facility] Comment on above: Performed By: #### V ANCTR #### [facility] (DEFAULT) [address] [place] [address] 53243 Creatinine [Mass/Vol] 0.81 mg/dL Normal 0.50-1.20 [facility] Comment on above: Performed By: #### V ANCTR #### [facility] (DEFAULT) [address] [place] [address] 62014 GFR/1.73 sq M.predicted among non-blacks MDRD (S/P/Bld) [Vol rate/Area] 86 mL/min/{1.73_m2} Normal >=[address] [facility] Comment on above: Result Comment: Repo rted eGFR is based on the CKD-EPI 2020 equation using creatinine, age, and sex. Performed By: #### V ANCTR #### [facility] (DEFAULT) [address] [place] [address] 43130 Glucose [Mass/Vol] 131 mg/dL High 70-99 [facility] Comment on above: Performed By: #### V ANCTR #### [facility] (DEFAULT) [address] [place] [address] 90076 Osmolality [Osmolality] 272 mosm/kg Low 278-[address] [facility] Comment on above: Performed By: #### V ANCTR #### [facility] (DEFAULT) [address] [place] [address] 51029 Potassium [Moles/Vol] 4.3 mmol/L Normal 3.5-5.0 [facility] Comment on above: Performed By: #### V ANCTR #### [facility] (DEFAULT) [address] [place] [address] 17986 Sodium [Moles/Vol] 127 mmol/L Low 135-145 [facility] Comment on above: Performed By: #### V ANCTR #### [facility] (DEFAULT) [address] [place] [address] 01496 Urea nitrogen [Mass/Vol] 14 mg/dL Normal 7-[address] [facility] Comment on above: Performed By: #### V ANCTR #### [facility] (DEFAULT) [address] [place] [address] 53665 Urea nitrogen/Creatinine [Mass ratio] 17 mg/mg Normal [facility] Comment on above: Performed By: #### V ANCTR #### [facility] (DEFAULT) [address] [place] [address] CHEST WITH CONTRAST[address] CT CHEST WITH CONTRAST EXAM: CT CHEST WI TH CONTRAST, 09/21/2023 12:20 PM COMPARISON: MRI spine dated September 19, 2023. CLINICAL INDICATIONS: empyema; RELEVANT CLINICAL HISTORY: TECHNIQUE: CT images of the chest were obtained following administration of intravenous contrast. CONTRAST: iohexol (OMNIPAQUE) 350 MG/ML injection 1-171 mL; Route of Administration: Intravenous; Dose: 90 mL. FINDINGS: Lungs and Pleura: Trace right and small left free flowing pleural effusions with adjacent compressive atelectasis and without air pockets or pleural thickening. No consolidation. Tracheobronchial tree: Patent. Mediastinum/[place]: No mediastinal or hilar lymphadenopathy. Few prominent mediastinal lymph nodes, likely reactive. Axilla and Supraclavicular Region: No axillary or supraclavicular adenopathy. Cardiovascular: The cardiac chambers and pericardium are within normal limits. The aorta and arch branch vessels, as well as the pulmonary arteries, are unremarkable. Upper Abdomen: Please see the abdominal CT scan report from the same date for further description of findings related to the upper abdomen. Bones and Soft Tissue: multilevel heterogenous attenuation of the thoracic spine most marked at T5-T6 with narrowing of the intervening disc space. Similar but much less marked changes at T8-T9. Paravertebral soft tissue thickening extending from T4 to T11, most marked at T5-T6 with maximum thickness of 1.5 cm on the right (image 118). Patient status post laminectomy at T9 and T10 without related post operative fluid collections. Mild edema in the mid back posterior to thoracic spine spinous processes. IMPRESSION: 1. Trace right and small left free flowing pleural effusions without pleural thickening or air pockets. 2. Multifocal heterogenous attenuation of the thoracic spine most marked at T5-T6 and T8-T9 with associated diffuse bilateral paravertebral soft tissue thickening extending from T4-T11, correlating to findings of discitis/osteomyeliti s noted on prior MRI spine dated September 19, 2023. 3. Patient is status post laminectomy at T9 and T10 without related post operative fluid collections. Normal [facility] URINALYSIS REFLEX TO CULTURE PERFORMABLEon 09-21-2023 Appearance (U) Clear Normal Clear [facility] Comment on above: Order Comment: For i ndwelling catheters, specimen collection is acceptable on catheter day 1 and 2 only. ? Performed By: #### U HCG #### [facility] (DEFAULT) [address] [place] [address] Bacteria ABSENT Normal ABSENT [facility] Comment on above: Order Comment: For i ndwelling catheters, specimen collection is acceptable on catheter day 1 and 2 only. ? Performed By: #### U HCG #### [facility] (DEFAULT) [address] [place] [address] 51877 Blood Urine Negative Normal Negative [facility] Comment on above: Order Comment: For i ndwelling catheters, specimen collection is acceptable on catheter day 1 and 2 only. ? Performed By: #### U HCG #### [facility] (DEFAULT) [address] [place] [address] 89440 Color (U) Yellow Normal Yellow [facility] Comment on above: Order Comment: For i ndwelling catheters, specimen collection is acceptable on catheter day 1 and 2 only. ? Performed By: #### U HCG #### [facility] (DEFAULT) [address] [place] [address] 57059 Glucose Ql (U) Negative Normal Negative [facility] Comment on above: Order Comment: For i ndwelling catheters, specimen collection is acceptable on catheter day 1 and 2 only. ? Performed By: #### U HCG #### [facility] (DEFAULT) [address] [place] [address] 95360 Ketones Ql (U) Negative Normal Negative [facility] Comment on above: Order Comment: For i ndwelling catheters, specimen collection is acceptable on catheter day 1 and 2 only. ? Performed By: #### U HCG #### [facility] (DEFAULT) [address] [place] [address] 80836 Leukocyte esterase Test strip Ql (U) Negative Normal Negative [facility] Comment on above: Order Comment: For i ndwelling catheters, specimen collection is acceptable on catheter day 1 and 2 only. ? Performed By: #### U HCG #### [facility] (DEFAULT) [address] [place] [address] 04807 Nitrites Urine Negative Normal Negative [facility] Comment on above: Order Comment: For i ndwelling catheters, specimen collection is acceptable on catheter day 1 and 2 only. ? Performed By: #### U HCG #### [facility] (DEFAULT) [address] [place] [address] 61116 pH (U) 6.5 [pH] Normal 5.0-7.[address] [facility] Comment on above: Order Comment: For i ndwelling catheters, specimen collection is acceptable on catheter day 1 and 2 only. ? Performed By: #### U HCG #### [facility] (DEFAULT) [address] [place] [address] 18330 Protein Urine Negative Normal Negative [facility] Comment on above: Order Comment: For i ndwelling catheters, specimen collection is acceptable on catheter day 1 and 2 only. ? Performed By: #### U HCG #### [facility] (DEFAULT) [address] [place] [address] 47413 RBC Urine 0-2 Normal 0-[address] [facility] Comment on above: Order Comment: For i ndwelling catheters, specimen collection is acceptable on catheter day 1 and 2 only. ? Performed By: #### U HCG #### [facility] (DEFAULT) [address] [address] Specific [place] Urine 1.011 Normal 1.001-1.035 [facility] Comment on above: Order Comment: For i ndwelling catheters, specimen collection is acceptable on catheter day 1 and 2 only. ? Performed By: #### U HCG #### [facility] (DEFAULT) [address] [address] Squamous/Epithelial Cells 0-2/hpf Normal 0-2/hpf, 3-5/hpf = 1+ [facility] Comment on above: Order Comment: For i ndwelling catheters, specimen collection is acceptable on catheter day 1 and 2 only. ? Performed By: #### U HCG #### [facility] (DEFAULT) [address] [address] Urobilinogen Urine 1.0 E.U./dL Normal 0.2 E.U/d L, 1.0 E.U/dL [facility] Comment on above: Order Comment: For i ndwelling catheters, specimen collection is acceptable on catheter day 1 and 2 only. ? Performed By: #### U HCG #### [facility] (DEFAULT) [address] [place] [address] 39622 WBC Urine 0 - 5 Normal 0 - [address] [facility] Comment on above: Order Comment: For i ndwelling catheters, specimen collection is acceptable on catheter day 1 and 2 only. ? Performed By: #### U HCG #### [facility] (DEFAULT) [address] [place] [address] 58071 VANCOMYCIN LEVEL, TROUGH ([place] E DRUG LEVEL)on 09-21-2023 Vancomycin, Trough 13.1 mcg/mL Normal Therapeut ic Range: 10.0-20.0 mcg/mL [facility] Comment on above: Order Comment: 2 Bot tles (1 Set - consists of 1 Aerobic bottle and 1 Anaerobic bottle) - 1st Peripheral Draw For syringe method draw: If able to obtain adequate sample (20 ml) inoculate anaerobic bottle first If inadequate sample obtained (less than 20 ml) inoculate aerobic bottle first For vacutainer method draw: Fill aerobic bottle first, then anaerobic Performed By: #### B LDCULT #### [facility] (DEFAULT) [address] [place] [address] 84208 CHEM 7 (LYTES,BUN,CREA,GLUC) on 09-20-2023 Anion gap [Moles/Vol] 13 mmol/L Normal 7-17 [facility] Comment on above: Performed By: #### V ANCTR #### [facility] (DEFAULT) [address] [place] [address] 42934 Chloride [Moles/Vol] 94 mmol/L Low 98-[address] [facility] Comment on above: Performed By: #### V ANCTR #### [facility] (DEFAULT) [address] [place] [address] 91966 CO2 [Moles/Vol] 27 mmol/L Normal 21-31 [facility] Comment on above: Performed By: #### V ANCTR #### [facility] (DEFAULT) [address] [place] [address] 31184 Creatinine [Mass/Vol] 0.63 mg/dL Normal 0.50-1.20 [facility] Comment on above: Performed By: #### V ANCTR #### [facility] (DEFAULT) [address] [place] [address] 15422 eGFR, CKD-EPI, Female > Normal >=60 [facility] Comment on above: Result Comment: Repo rted eGFR is based on the CKD-EPI 2020 equation using creatinine, age, and sex. Performed By: #### V ANCTR #### [facility] (DEFAULT) [address] [place] [address] 99760 Glucose [Mass/Vol] 104 mg/dL High 70-99 [facility] Comment on above: Performed By: #### V ANCTR #### [facility] (DEFAULT) [address] [place] [address] 40771 Osmolality [Osmolality] 275 mosm/kg Low 278-[address] [facility] Comment on above: Performed By: #### V ANCTR #### [facility] (DEFAULT) [address] [place] [address] 76501 Potassium [Moles/Vol] 4.4 mmol/L Normal 3.5-5.0 [facility] Comment on above: Performed By: #### V ANCTR #### [facility] (DEFAULT) [address] [place] [address] 68232 Sodium [Moles/Vol] 130 mmol/L Low 135-145 [facility] Comment on above: Performed By: #### V ANCTR #### [facility] (DEFAULT) [address] [place] [address] 31165 Urea nitrogen [Mass/Vol] 12 mg/dL Normal 7-[address] [facility] Comment on above: Performed By: #### V ANCTR #### [facility] (DEFAULT) [address] [place] [address] 34930 Urea nitrogen/Creatinine [Mass ratio] 19 mg/mg Normal [facility] Comment on above: Performed By: #### V ANCTR #### [facility] (DEFAULT) [address] [place] [address] 01461 CREATININE,RANDOM URINEon Creatinine (U) [Mass/Vol] 29.34 mg/dL Normal [facility] Comment on above: Order Comment: The r eference range has not been established for random urine specimens. The test result should be integrated into the clinical context for interpretation. Performed By: #### U HCG #### [facility] (DEFAULT) [address] [place] [address] 47425 LYTES (NA, K, CL) - URINE - RANDOMon 09-20-2023 Sodium (U) [Moles/Vol] 62 mmol/L Normal [facility] Comment on above: Order Comment: The r eference range has not been established for random urine specimens. The test result should be integrated into the clinical context for interpretation. Performed By: #### U HCG #### [facility] (DEFAULT) [address] [place] [address] 92831 Urine Chloride 66 mmol/L Normal [facility] Comment on above: Order Comment: The r eference range has not been established for random urine specimens. The test result should be integrated into the clinical context for interpretation. Performed By: #### U HCG #### [facility] (DEFAULT) [address] [place] [address] 91042 Urine Potassium 23.1 mmol/L Normal [facility] Comment on above: Order Comment: The r eference range has not been established for random urine specimens. The test result should be integrated into the clinical context for interpretation. Performed By: #### U HCG #### [facility] (DEFAULT) [address] [place] [address] 19912 OSMOLALITY, URINEon 09-20-20 23 Osmolality, Urine 264 mOsm/kg Low 300-900 [facility] Comment on above: Performed By: #### U HCG #### [facility] (DEFAULT) [address] [place] [address] 88915 SEDIMENTATION RATE, AUTOMATE Don 09-20-2023 ESR Westergren 134 mm/hr High <[address] [facility] Comment on above: Performed By: #### E SR #### [facility] [facility] (DEFAULT[facility] [address] [place] [address] 59967 T4 FREEon 09-20-2023 Free T4 [Mass/Vol] 1.17 ng/dL Normal 0.89-1.76 [facility] Comment on above: Performed By: #### V ANCTR #### U [facility] (DEFAULT) [address] [place] [address] 03736 TSH W/FT4 REFLEXon 3 TSH 6.456 uIU/mL High 0.550-4.[address] [facility] Comment on above: Performed By: #### B LDCULT #### U [facility] (DEFAULT) [address] [address] VANCOMYCIN LEVEL, TROUGH ([place] E DRUG LEVEL)on 09-20-2023 Vancomycin, Trough 25.8 mcg/mL Critically high Therap eutic Range: 10.0-20.0 mcg/mL [facility] Comment on above: Order Comment: Pleas e draw level at specified interval PRIOR to next dose. Performed By: #### V ANCTR #### U [facility] (DEFAULT) [address] [place] [address] 44428 BLOOD CULTUREon 09-19-2023 Bacteria identified Cx Nom (Unsp spec) NO GROWTH DAY 5 OF [address] [facility] Comment on above: Order Comment: 2 Bot tles (1 Set - consists of 1 Aerobic bottle and 1 Anaerobic bottle) -1st Peripheral DrawFor syringe method draw:If able to obtain adequate sample (20 ml) inoculate anaerobic bottle firstIf inadequate sample obtained (less than 20 ml) inoculate aerobic bottle firstFor vacutainer method draw: Fill aerobic bottle first, then anaerobicResults may be compromised due to volume of BACT\ALERT bottle exceeding 10mLs . The optimal blood volume is 8-10 mls per aerobic/anaerobic blood culture bottle. Performed By: #### U HCG #### U [facility] (DEFAULT) [address] [place] [address] 99401 C REACTIVE PROTEINon 023 CRP [Mass/Vol] 137.95 mg/L High <10.00 [facility] Comment on above: Performed By: #### B LDCULT #### U [facility] (DEFAULT) [address] [place] [address] 97690 CALCIUMon 09-19-2023 Calcium [Mass/Vol] 8.4 mg/dL Low 8.6-10.5 [facility] Comment on above: Performed By: #### B LDCULT #### [facility] (DEFAULT) [address] [place] [address] 63005 CBC AND ELECTRONIC DIFFon Abs Baso Auto < Normal 0.00-0.[address] [facility] Comment on above: Performed By: #### V ANCTR #### [facility] (DEFAULT) [address] [place] [address] 61109 Basophils/100 WBC (Bld) 0.3 % Normal [facility] Comment on above: Performed By: #### V ANCTR #### [facility] (DEFAULT) [address] [place] [address] 70617 DIFF STATUS Electronic Differential Normal [facility] Comment on above: Performed By: #### V ANCTR #### [facility] (DEFAULT) [address] [place] [address] 44065 Eosinophils (Bld) [#/Vol] 0.11 10*3/uL Normal 0.00-0.[address] [facility] Comment on above: Performed By: #### V ANCTR #### [facility] (DEFAULT) [address] [place] [address] 56953 Eosinophils/100 WBC (Bld) 1.4 % Normal [facility] Comment on above: Performed By: #### V ANCTR #### [facility] (DEFAULT) [address] [place] [address] 01738 Hematocrit (Bld) [Volume fraction] 23.9 % Low 34.9-44.[address] [facility] Comment on above: Performed By: #### V ANCTR #### [facility] (DEFAULT) [address] [place] [address] 03597 Hemoglobin (Bld) [Mass/Vol] 7.5 g/dL Low 11.4-15.[address] [facility] Comment on above: Performed By: #### V ANCTR #### [facility] (DEFAULT) [address] [address] Immature Grans % 1.7 % Normal [facility] Comment on above: Performed By: #### V ANCTR #### [facility] (DEFAULT) [address] [address] Immature Grans Absolute 0.13 K/uL High <=0.08 [facility] Comment on above: Performed By: #### V ANCTR #### [facility] (DEFAULT) [address] [address] Lymphocytes (Bld) [#/Vol] 1.37 10*3/uL Normal 1.16-3.[address] [facility] Comment on above: Performed By: #### V ANCTR #### [facility] (DEFAULT) [address] [address] Lymphocytes/100 WBC (Bld) 17.7 % Normal [facility] Comment on above: Performed By: #### V ANCTR #### [facility] (DEFAULT) [address] [address] MCV (RBC) [Entitic vol] 88.5 fL Normal 79.6-97.7 [facility] Comment on above: Performed By: #### V ANCTR #### [facility] (DEFAULT) [address] [address] Mean Cell Hgb 27.8 pg Normal 25.9-33.[address] [facility] Comment on above: Performed By: #### V ANCTR #### U [facility] (DEFAULT) [address] [address] Mean Cell Hgb Conc 31.4 g/dL Normal 31.4-35.9 [facility] Comment on above: Performed By: #### V ANCTR #### [facility] (DEFAULT) [address] [place] [address] 10816 Monocytes (Bld) [#/Vol] 0.77 10*3/uL Normal 0.22-0.[address] [facility] Comment on above: Performed By: #### V ANCTR #### [facility] (DEFAULT) [address] [place] [address] 45204 Monocytes/100 WBC (Bld) 9.9 % Normal [facility] Comment on above: Performed By: #### V ANCTR #### [facility] (DEFAULT) [address] [place] [address] 71785 Nucleated RBC 0.0 /100 WBC Normal <=0.2 [facility] Comment on above: Performed By: #### V ANCTR #### [facility] (DEFAULT) [address] [place] [address] 02038 Platelet mean volume (Bld) [Entitic vol] 10.0 fL Normal 8.5-12.[address] [facility] Comment on above: Performed By: #### V ANCTR #### [facility] (DEFAULT) [address] [place] [address] 40896 Platelets (Bld) [#/Vol] 627 10*3/uL High 150-[address] [facility] Comment on above: Performed By: #### V ANCTR #### [facility] (DEFAULT) [address] [place] [address] 57165 RBC (Bld) [#/Vol] 2.70 10*6/uL Low 3.91-5.[address] [facility] Comment on above: Performed By: #### V ANCTR #### [facility] (DEFAULT) [address] [place] [address] 69938 RBC Distribution 15.6 % High 10.8-14.9 [facility] Comment on above: Performed By: #### V ANCTR #### [facility] (DEFAULT) [address] [place] [address] 91042 Segs + Bands Auto 69.0 % Normal [facility] Comment on above: Performed By: #### V ANCTR #### [facility] (DEFAULT) [address] [address] Segs + Bands,Absolute Auto 5.34 K/uL Normal 1.64-7.[address] [facility] Comment on above: Performed By: #### V ANCTR #### [facility] (DEFAULT) [address] [place] [address] 91517 WBC (Bld) [#/Vol] 7.74 10*3/uL Normal 3.99-11.[address] [facility] Comment on above: Performed By: #### V ANCTR #### [facility] (DEFAULT) [address] [address] CBC,PLATELETSon 09-19-2023 Hematocrit (Bld) [Volume fraction] 27.2 % Low 34.9-44.[address] [facility] Comment on above: Performed By: #### C HM7, MGO #### [facility] (DEFAULT) [address] [place] [address] 99283 Hemoglobin (Bld) [Mass/Vol] 8.9 g/dL Low 11.4-15.[address] [facility] Comment on above: Performed By: #### C HM7, MGO #### [facility] (DEFAULT) [address] [address] MCV (RBC) [Entitic vol] 88.0 fL Normal 79.6-97.7 [facility] Comment on above: Performed By: #### C HM7, MGO #### [facility] (DEFAULT) [address] [address] Mean Cell Hgb 28.8 pg Normal 25.9-33.[address] [facility] Comment on above: Performed By: #### C HM7, MGO #### [facility] (DEFAULT) [address] [place] [address] 67606 Mean Cell Hgb Conc 32.7 g/dL Normal 31.4-35.9 [facility] Comment on above: Performed By: #### C HM7, MGO #### [facility] (DEFAULT) [address] [place] [address] 70857 Platelet mean volume (Bld) [Entitic vol] 10.5 fL Normal 8.5-12.[address] [facility] Comment on above: Performed By: #### C HM7, MGO #### [facility] (DEFAULT) [address] [place] [address] 28001 Platelets (Bld) [#/Vol] 671 10*3/uL High 150-[address] [facility] Comment on above: Performed By: #### C HM7, MGO #### [facility] (DEFAULT) [address] [place] [address] 46451 RBC (Bld) [#/Vol] 3.09 10*6/uL Low 3.91-5.[address] [facility] Comment on above: Performed By: #### C HM7, MGO #### [facility] (DEFAULT) [address] [place] [address] 04933 RBC Distribution 15.9 % High 10.8-14.9 [facility] Comment on above: Performed By: #### C HM7, MGO #### [facility] (DEFAULT) [address] [place] [address] 26427 WBC (Bld) [#/Vol] 9.62 10*3/uL Normal 3.99-11.[address] [facility] Comment on above: Performed By: #### C HM7, MGO #### [facility] (DEFAULT) [address] [place] [address] 93900 CHEM 7 (LYTES,BUN,CREA,GLUC) on 09-19-2023 Anion gap [Moles/Vol] 17 mmol/L Normal 7-17 [facility] Comment on above: Performed By: #### C HM7, MGO #### [facility] (DEFAULT) [address] [place] [address] 91780 Chloride [Moles/Vol] 90 mmol/L Low 98-[address] [facility] Comment on above: Performed By: #### C HM7, MGO #### [facility] (DEFAULT) [address] [place] [address] 17109 CO2 [Moles/Vol] 24 mmol/L Normal 21-31 [facility] Comment on above: Performed By: #### C HM7, MGO #### [facility] (DEFAULT) [address] [place] [address] 97133 Creatinine [Mass/Vol] 0.66 mg/dL Normal 0.50-1.20 [facility] Comment on above: Performed By: #### C HM7, MGO #### [facility] (DEFAULT) [address] [place] [address] 41990 eGFR, CKD-EPI, Female > Normal >=60 [facility] Comment on above: Result Comment: Repo rted eGFR is based on the CKD-EPI 2020 equation using creatinine, age, and sex. Performed By: #### C HM7, MGO #### [facility] (DEFAULT) [address] [place] [address] 09167 Glucose [Mass/Vol] 99 mg/dL Normal 70-99 [facility] Comment on above: Performed By: #### C HM7, MGO #### [facility] (DEFAULT) [address] [place] [address] 82979 Osmolality [Osmolality] 268 mosm/kg Low 278-[address] [facility] Comment on above: Performed By: #### C HM7, MGO #### [facility] (DEFAULT) [address] [place] [address] 32194 Potassium [Moles/Vol] 5.3 mmol/L High 3.5-5.0 [facility] Comment on above: Result Comment: Slig htly hemolyzed Performed By: #### C HM7, MGO #### [facility] (DEFAULT) [address] [place] [address] 67330 Sodium [Moles/Vol] 126 mmol/L Low 135-145 [facility] Comment on above: Performed By: #### C HM7, MGO #### [facility] (DEFAULT) [address] [place] [address] Urea nitrogen [Mass/Vol] 11 mg/dL Normal 7-[address] [facility] Comment on above: Performed By: #### C HM7, MGO #### [facility] (DEFAULT) [address] [place] [address] 86204 Urea nitrogen/Creatinine [Mass ratio] 17 mg/mg Normal [facility] Comment on above: Performed By: #### C HM7, MGO #### [facility] (DEFAULT) [address] [place] [address] 91813 Anion gap [Moles/Vol] 15 mmol/L Normal 7-17 [facility] Comment on above: Performed By: #### B LDCULT #### [facility] (DEFAULT) [address] [place] [address] 28076 Chloride [Moles/Vol] 94 mmol/L Low 98-[address] [facility] Comment on above: Performed By: #### B LDCULT #### [facility] (DEFAULT) [address] [place] [address] 25603 CO2 [Moles/Vol] 27 mmol/L Normal 21-31 [facility] Comment on above: Performed By: #### B LDCULT #### [facility] (DEFAULT) [address] [place] [address] 56957 Creatinine [Mass/Vol] 0.61 mg/dL Normal 0.50-1.20 [facility] Comment on above: Performed By: #### B LDCULT #### [facility] (DEFAULT) [address] [place] [address] 32641 eGFR, CKD-EPI, Female > Normal >=60 [facility] Comment on above: Result Comment: Repo rted eGFR is based on the CKD-EPI 2020 equation using creatinine, age, and sex. Performed By: #### B LDCULT #### [facility] (DEFAULT) [address] [place] [address] 39159 Glucose [Mass/Vol] 116 mg/dL High 70-99 [facility] Comment on above: Performed By: #### B LDCULT #### [facility] (DEFAULT) [address] [place] [address] 69492 Osmolality [Osmolality] 277 mosm/kg Low 278-[address] [facility] Comment on above: Performed By: #### B LDCULT #### [facility] (DEFAULT) [address] [place] [address] 36433 Potassium [Moles/Vol] 4.6 mmol/L Normal 3.5-5.0 [facility] Comment on above: Performed By: #### B LDCULT #### [facility] (DEFAULT) [address] [place] [address] 75049 Sodium [Moles/Vol] 131 mmol/L Low 135-145 [facility] Comment on above: Performed By: #### B LDCULT #### [facility] (DEFAULT) [address] [place] [address] 64032 Urea nitrogen [Mass/Vol] 9 mg/dL Normal 7-[address] [facility] Comment on above: Performed By: #### B LDCULT #### [facility] (DEFAULT) [address] [place] [address] 16354 Urea nitrogen/Creatinine [Mass ratio] 15 mg/mg Normal [facility] Comment on above: Performed By: #### B LDCULT #### [facility] (DEFAULT) [address] [place] [address] 88399 HEPATIC FUNCTION PANELon Albumin [Mass/Vol] 2.5 g/dL Low 3.5-5.0 [facility] Comment on above: Performed By: #### B LDCULT #### [facility] (DEFAULT) [address] [place] [address] 51776 ALP [Catalytic activity/Vol] 152 U/L High 32-[address] [facility] Comment on above: Performed By: #### B LDCULT #### [facility] (DEFAULT) [address] [place] [address] 27242 ALT [Catalytic activity/Vol] 16 U/L Normal 9-[address] [facility] Comment on above: Performed By: #### B LDCULT #### [facility] (DEFAULT) [address] [place] [address] 44537 AST [Catalytic activity/Vol] 25 U/L Normal 10-[address] [facility] Comment on above: Performed By: #### B LDCULT #### [facility] (DEFAULT) [address] [place] [address] 63426 Bilirubin [Mass/Vol] 0.4 mg/dL Normal <1.[address] [facility] Comment on above: Performed By: #### B LDCULT #### [facility] (DEFAULT) [address] [place] [address] 36526 Bilirubin.indirect [Mass/Vol] 0.1 mg/dL Normal <0.[address] [facility] Comment on above: Performed By: #### B LDCULT #### [facility] (DEFAULT) [address] [place] [address] 52250 Protein [Mass/Vol] 6.2 g/dL Low 6.4-8.3 [facility] Comment on above: Performed By: #### B LDCULT #### [facility] (DEFAULT) [address] [place] [address] 50341 HEPATITIS BATTERY, CHRONICon 09-19-2023 Hep B Core Ab,Total (IgG+IgM) Negative Normal Negative [facility] Comment on above: Performed By: #### C HM7, MGO #### [facility] (DEFAULT) [address] [place] [address] 43508 Hep B Surface Ab Negative Normal Negative [facility] Comment on above: Performed By: #### C HM7, MGO #### [facility] (DEFAULT) [address] [place] [address] 13568 Hepatitis B Surface Ag Negative Normal Negative [facility] Comment on above: Performed By: #### C HM7, MGO #### [facility] (DEFAULT) [address] [place] [address] 92277 Hepatitis C Antibody Negative Normal Negative [facility] Comment on above: Performed By: #### C HM7, MGO #### [facility] (DEFAULT) [address] [place] [address] 95427 IMMUNOGLOBULINS IGG IGA IGMo n 09-19-2023 IgA [Mass/Vol] 246 mg/dL Normal 66-[address] [facility] Comment on above: Performed By: #### B LDCULT #### [facility] (DEFAULT) [address] [place] [address] 87939 IgG [Mass/Vol] 1357 mg/dL Normal 600-[address] [facility] Comment on above: Performed By: #### B LDCULT #### [facility] (DEFAULT) [address] [place] [address] 24989 IgM [Mass/Vol] 102 mg/dL Normal 45-[address] [facility] Comment on above: Performed By: #### B LDCULT #### [facility] (DEFAULT) [address] [place] [address] 54116 MAGNESIUMon 09-19-2023 Magnesium [Mass/Vol] 2.1 mg/dL Normal 1.6-2.[address] [facility] Comment on above: Result Comment: Slig htly hemolyzed Performed By: #### C HM7, MGO #### [facility] (DEFAULT) [address] [place] [address] 78597 MRI SPINE CERVICAL WITH AND WITHOUT CONTRASTon 09-19-2023 MRI SPINE CERVICAL WITH AND WITHOUT CONTRAST EXAM: MRI SPINE CERVICAL WITH AND WITHOUT CONTRAST, MRI SPINE THORACIC WITH AND WITHOUT CONTRAST, MRI SPINE LUMBAR WITH AND WITHOUT CONTRAST, 09/19/2023 06:27 AM (accession [id number]), 09/19/2023 06:29 AM (accession [id number]), 09/19/2023 06:28 AM (accession [id number]) COMPARISON: Recent outside cervical and thoracic CT studies. CLINICAL INDICATIONS: 53 years Female Epidural abscess; RELEVANT CLINICAL HISTORY: 53 y.o. female with past medical history of recent intra-abdominal abscess status post drain placement, MSSA bacteremia with thoracic epidural abscess status post recent I&D at outside hospital, who transferred to [facility] for further management of her osteomyelitis/diskiti s with bilateral lower extremity weakness TECHNIQUE: A series of sagittal and axial multisequence images of the cervical spine, thoracic spine, and lumbar spine were obtained both before and after intravenous administration of gadolinium-based contrast using standard protocol. CONTRAST: gadoterate Meglumine (DOTAREM) 5 MMOL/10ML injection 1-80 mL; Route of Administration: Intravenous; Dose: 15 mL. FINDINGS: Please note there is a transitional lumbosacral vertebral level designated as a partially lumbarized L5 based on counting from the top. Images are labeled accordingly and archived in PACS. CERVICAL SPINE: There are postoperative changes, compatible with remote ACDF at the C5-6 level. There is abnormal signal and enhancement in the adjacent C6-7 disc space and in the adjacent C6 and C7 vertebral bodies. This is consistent with discitis/osteomyeliti s. There is also septic arthritis involving the right C6-7 facet joint with some inflammation and fluid like signal in the adjacent paraspinal soft tissues. There is concentric epidural phlegmonous inflammation at the C6 and C7 levels. No significant cervical epidural fluid collection. But there is severe narrowing of the spinal canal due to inflammation at the level of the C6-7 disc. The spinal cord is mildly deformed but no cord edema. THORACIC SPINE: There is a long segment of abnormal signal and enhancement involving the T4-T11 vertebral bodies. Signal abnormalities involve the vertebral marrow as well as the disc spaces from T4-5 through T10-11. In addition, there is extensive abnormal epidural and paravertebral inflammation with fairly confluent abnormality along this segment. The most prominent epidural inflammation currently is at the T5 and T6 levels where there is severe narrowing of the spinal canal and deformity of the spinal cord, and at the T9-T11 levels where there is also significant spinal canal narrowing as well as a small amount of anterior epidural fluid at the level of the T9-10 disc. There are recent postoperative changes. There is evidence of left hemilaminectomies at the T3, T9 and T10 levels likely for drainage of epidural abscess given the reported history. There is a small amount of left lateral paravertebral abscess or fluid at the T8 and T9 levels. See sagittal contrast-enhanced series 28 image 3. Additionally, there is evidence of a loculated left pleural effusion which could reflect thoracic empyema. Clinical correlation recommended. There is significant deformity of the thoracic spinal cord related to a pelvis inflammation. Additionally, there is abnormal intradural enhancement along the surface of the thoracic spinal cord in the mid and lower thoracic spinal canal, with abnormal intradural enhancement extending down along the lumbar cauda equina as well. LUMBAR SPINE: There are findings suggesting early discitis and osteomyelitis at L3-4. There is a small amount of disc fluid as well as abnormal enhancement involving the disc and endplates. There are findings of septic arthritis involving the left L3-4 and L4-5 facets, right L4-5 facet, and the L4-5 interspinous articulation. There are small posterior paravertebral abscesses evident. There is also phlegmonous appearing epidural inflammation especially along the posterior aspect of the spinal canal at L4-5 level. There is severe narrowing of the spinal canal at L3-4 and L4-5, much of which is due to chronic degeneration although the acute inflammation is exacerbated.. There is also evidence of septic arthritis involving the right SI joint. Other degenerative changes are noted. There is abnormal intradural enhancement along the nerve roots of the lumbar cauda equina which could be due to meningitis/arachnoidi tis. Heterogeneous fluid collection in the left retroperitoneal space, with evidence of a percutaneous strain in place. IMPRESSION: Findings of multifocal acute spinal infection. Cervical discitis/osteomyeliti s at C6-7 and septic arthritis of the right C6-7 facet. Associated cervical epidural inflammation and small anterior epidural abscess with severe spinal canal narrowing deforming the cervical spinal cord. Long segment of thoracic osteomyelitis (more content not included)... Normal [facility] MRI SPINE LUMBAR WITH AND WI THOUT CONTRASTon 09-19-2023 MRI SPINE LUMBAR WITH AND WITHOUT CONTRAST EXAM: MRI SPINE CERVICAL WITH AND WITHOUT CONTRAST, MRI SPINE THORACIC WITH AND WITHOUT CONTRAST, MRI SPINE LUMBAR WITH AND WITHOUT CONTRAST, 09/19/2023 06:27 AM (accession [id number]), 09/19/2023 06:29 AM (accession [id number]), 09/19/2023 06:28 AM (accession [id number]) COMPARISON: Recent outside cervical and thoracic CT studies. CLINICAL INDICATIONS: 53 years Female Epidural abscess; RELEVANT CLINICAL HISTORY: 53 y.o. female with past medical history of recent intra-abdominal abscess status post drain placement, MSSA bacteremia with thoracic epidural abscess status post recent I&D at outside hospital, who transferred to [facility] for further management of her osteomyelitis/diskiti s with bilateral lower extremity weakness TECHNIQUE: A series of sagittal and axial multisequence images of the cervical spine, thoracic spine, and lumbar spine were obtained both before and after intravenous administration of gadolinium-based contrast using standard protocol. CONTRAST: gadoterate Meglumine (DOTAREM) 5 MMOL/10ML injection 1-80 mL; Route of Administration: Intravenous; Dose: 15 mL. FINDINGS: Please note there is a transitional lumbosacral vertebral level designated as a partially lumbarized L5 based on counting from the top. Images are labeled accordingly and archived in PACS. CERVICAL SPINE: There are postoperative changes, compatible with remote ACDF at the C5-6 level. There is abnormal signal and enhancement in the adjacent C6-7 disc space and in the adjacent C6 and C7 vertebral bodies. This is consistent with discitis/osteomyeliti s. There is also septic arthritis involving the right C6-7 facet joint with some inflammation and fluid like signal in the adjacent paraspinal soft tissues. There is concentric epidural phlegmonous inflammation at the C6 and C7 levels. No significant cervical epidural fluid collection. But there is severe narrowing of the spinal canal due to inflammation at the level of the C6-7 disc. The spinal cord is mildly deformed but no cord edema. THORACIC SPINE: There is a long segment of abnormal signal and enhancement involving the T4-T11 vertebral bodies. Signal abnormalities involve the vertebral marrow as well as the disc spaces from T4-5 through T10-11. In addition, there is extensive abnormal epidural and paravertebral inflammation with fairly confluent abnormality along this segment. The most prominent epidural inflammation currently is at the T5 and T6 levels where there is severe narrowing of the spinal canal and deformity of the spinal cord, and at the T9-T11 levels where there is also significant spinal canal narrowing as well as a small amount of anterior epidural fluid at the level of the T9-10 disc. There are recent postoperative changes. There is evidence of left hemilaminectomies at the T3, T9 and T10 levels likely for drainage of epidural abscess given the reported history. There is a small amount of left lateral paravertebral abscess or fluid at the T8 and T9 levels. See sagittal contrast-enhanced series 28 image 3. Additionally, there is evidence of a loculated left pleural effusion which could reflect thoracic empyema. Clinical correlation recommended. There is significant deformity of the thoracic spinal cord related to a pelvis inflammation. Additionally, there is abnormal intradural enhancement along the surface of the thoracic spinal cord in the mid and lower thoracic spinal canal, with abnormal intradural enhancement extending down along the lumbar cauda equina as well. LUMBAR SPINE: There are findings suggesting early discitis and osteomyelitis at L3-4. There is a small amount of disc fluid as well as abnormal enhancement involving the disc and endplates. There are findings of septic arthritis involving the left L3-4 and L4-5 facets, right L4-5 facet, and the L4-5 interspinous articulation. There are small posterior paravertebral abscesses evident. There is also phlegmonous appearing epidural inflammation especially along the posterior aspect of the spinal canal at L4-5 level. There is severe narrowing of the spinal canal at L3-4 and L4-5, much of which is due to chronic degeneration although the acute inflammation is exacerbated.. There is also evidence of septic arthritis involving the right SI joint. Other degenerative changes are noted. There is abnormal intradural enhancement along the nerve roots of the lumbar cauda equina which could be due to meningitis/arachnoidi tis. Heterogeneous fluid collection in the left retroperitoneal space, with evidence of a percutaneous strain in place. IMPRESSION: Findings of multifocal acute spinal infection. Cervical discitis/osteomyeliti s at C6-7 and septic arthritis of the right C6-7 facet. Associated cervical epidural inflammation and small anterior epidural abscess with severe spinal canal narrowing deforming the cervical spinal cord. Long segment of thoracic osteomyelitis (more content not included)... Normal [facility] MRI SPINE THORACIC WITH AND WITHOUT CONTRASTon 09-19-2023 MRI SPINE THORACIC WITH AND WITHOUT CONTRAST EXAM: MRI SPINE CERVICAL WITH AND WITHOUT CONTRAST, MRI SPINE THORACIC WITH AND WITHOUT CONTRAST, MRI SPINE LUMBAR WITH AND WITHOUT CONTRAST, 09/19/2023 06:27 AM (accession [id number]), 09/19/2023 06:29 AM (accession [id number]), 09/19/2023 06:28 AM (accession [id number]) COMPARISON: Recent outside cervical and thoracic CT studies. CLINICAL INDICATIONS: 53 years Female Epidural abscess; RELEVANT CLINICAL HISTORY: 53 y.o. female with past medical history of recent intra-abdominal abscess status post drain placement, MSSA bacteremia with thoracic epidural abscess status post recent I&D at outside hospital, who transferred to [facility] for further management of her osteomyelitis/diskiti s with bilateral lower extremity weakness TECHNIQUE: A series of sagittal and axial multisequence images of the cervical spine, thoracic spine, and lumbar spine were obtained both before and after intravenous administration of gadolinium-based contrast using standard protocol. CONTRAST: gadoterate Meglumine (DOTAREM) 5 MMOL/10ML injection 1-80 mL; Route of Administration: Intravenous; Dose: 15 mL. FINDINGS: Please note there is a transitional lumbosacral vertebral level designated as a partially lumbarized L5 based on counting from the top. Images are labeled accordingly and archived in PACS. CERVICAL SPINE: There are postoperative changes, compatible with remote ACDF at the C5-6 level. There is abnormal signal and enhancement in the adjacent C6-7 disc space and in the adjacent C6 and C7 vertebral bodies. This is consistent with discitis/osteomyeliti s. There is also septic arthritis involving the right C6-7 facet joint with some inflammation and fluid like signal in the adjacent paraspinal soft tissues. There is concentric epidural phlegmonous inflammation at the C6 and C7 levels. No significant cervical epidural fluid collection. But there is severe narrowing of the spinal canal due to inflammation at the level of the C6-7 disc. The spinal cord is mildly deformed but no cord edema. THORACIC SPINE: There is a long segment of abnormal signal and enhancement involving the T4-T11 vertebral bodies. Signal abnormalities involve the vertebral marrow as well as the disc spaces from T4-5 through T10-11. In addition, there is extensive abnormal epidural and paravertebral inflammation with fairly confluent abnormality along this segment. The most prominent epidural inflammation currently is at the T5 and T6 levels where there is severe narrowing of the spinal canal and deformity of the spinal cord, and at the T9-T11 levels where there is also significant spinal canal narrowing as well as a small amount of anterior epidural fluid at the level of the T9-10 disc. There are recent postoperative changes. There is evidence of left hemilaminectomies at the T3, T9 and T10 levels likely for drainage of epidural abscess given the reported history. There is a small amount of left lateral paravertebral abscess or fluid at the T8 and T9 levels. See sagittal contrast-enhanced series 28 image 3. Additionally, there is evidence of a loculated left pleural effusion which could reflect thoracic empyema. Clinical correlation recommended. There is significant deformity of the thoracic spinal cord related to a pelvis inflammation. Additionally, there is abnormal intradural enhancement along the surface of the thoracic spinal cord in the mid and lower thoracic spinal canal, with abnormal intradural enhancement extending down along the lumbar cauda equina as well. LUMBAR SPINE: There are findings suggesting early discitis and osteomyelitis at L3-4. There is a small amount of disc fluid as well as abnormal enhancement involving the disc and endplates. There are findings of septic arthritis involving the left L3-4 and L4-5 facets, right L4-5 facet, and the L4-5 interspinous articulation. There are small posterior paravertebral abscesses evident. There is also phlegmonous appearing epidural inflammation especially along the posterior aspect of the spinal canal at L4-5 level. There is severe narrowing of the spinal canal at L3-4 and L4-5, much of which is due to chronic degeneration although the acute inflammation is exacerbated.. There is also evidence of septic arthritis involving the right SI joint. Other degenerative changes are noted. There is abnormal intradural enhancement along the nerve roots of the lumbar cauda equina which could be due to meningitis/arachnoidi tis. Heterogeneous fluid collection in the left retroperitoneal space, with evidence of a percutaneous strain in place. IMPRESSION: Findings of multifocal acute spinal infection. Cervical discitis/osteomyeliti s at C6-7 and septic arthritis of the right C6-7 facet. Associated cervical epidural inflammation and small anterior epidural abscess with severe spinal canal narrowing deforming the cervical spinal cord. Long segment of thoracic osteomyelitis (more content not included)... Normal [facility] PHOSPHATE, INORGANICon 09-19 Phosphorous 5.2 mg/dL High 2.2-4.[address] [facility] Comment on above: Result Comment: Slig htly hemolyzed Performed By: #### C HM7, MGO #### [facility] (DEFAULT) [address] [place] [id number] PT,INR,PTTon 09-19-2023 aPTT Coag (Bld) [Time] 36.5 s High 24.0-34.3 [facility] Comment on above: Performed By: #### V ANCTR #### [facility] (DEFAULT) [address] [place] [id number] INR Coag (PPP) [Relative time] 1.3 {INR} High 0.9-1.[address] [facility] Comment on above: Performed By: #### V ANCTR #### [facility] (DEFAULT) [address] [place] [address] [id number] PT Coag (PPP) [Time] 15.6 s High 11.9-14.[address] [facility] Comment on above: Performed By: #### V ANCTR #### [facility] (DEFAULT) [address] [place] [address]684 Social Work Daily Noteon Social Work Daily Note [facility] Manager [place] Patient: GEOVANNY MEJÍA1 [address] Su[address]. : 1970 [place], [place] [address] Location: [phone] Unit #: [id number] Social Work Daily Note Jacqueline Edwards BASEBALL HAND SEWER, SUPERVISOR SOLDERING Service Date: 09/19/23 Daily Note - * Psychosocial Assessment * I have reviewed nursing and case management psychosocial information.: Yes - * Care Coordination Communication * Care Coordination Communication: Spoke with patient's family via phone - * COVID-19 * Was Position Statement Letter Delivered?: Yes - * Hospital Stay Days * Day 1 Note: 09/15/23 SW consult for SNF. Pt has recently relocated to the area, living with her cousin. Pt is now in need of SNF placement for rehab. pt is needing to transfer her [facility] medicaid dual plan. SW got a copy of pts card, pt was unable to move much and couldnt sit up, she needed SW assistance to get her insurance card out of her wallet. Nurse LENY Hickey called with pt on Friday to transfer the Medicare portion. The Medicaid portion needs cancelled and re-submitted for [place] Medicaid for pts county she will be living in. SW made contact with [facility] for assistance and to re-submit pts medicaid vilma. Pt would like a facility near her cousin ursula's house. There are looking at [facility] in [place], and [facility]. SW made contact with [facility] and they are not in network with [facility]. [facility] is in Network. SW follow up with pts cousin via phone as she would like her to help with finding a assisted. Per Ursula there is another facility near her [facility] [place]. SW made contact with [facility] [place], they are in network with [facility], Per there admissions person Emmanuel they would be willing to bring pt in with a pending Medicaid number, per Emmanuel both Medicare and Medicaid would need transfered. Referral sent to [facility] for review. Marisol from [facility] to meet with pt. MANOLO to also meet back to assist with canceling [place] Medicaid if [facility] has not been able to assist pt. Web Design Intern: Jacqueline Edwards, BASEBALL HAND SEWER, SUPERVISOR SOLDERING Day 2 Note: 09/15/23 SW met back with pt, pt was asleep but easily aroused. MANOLO explained to pt that we needed to terminate her [place] Medicaid before submitting an application for [place] Medicaid and this needed to be initiated prior to her Dcing to a SNF. SW called [facility] and had to leave a VM requesting that they call pt back to so that pt could terminate her [place] Medicaid there and give her new address and county. Web Design Intern: Jacqueline Edwards, BASEBALL HAND SEWER, SUPERVISOR SOLDERING Day 3 Note: 09/16/23 Pt transfer pending for another hospital. Referral was sent to two SNFS, [facility] was able to accept, [facility] was reviewing. Both pt and pt cousin Ursula aware of possible transfer out, but know SNF is still the back up plan, they can also follow back when pt Dcs from other setting and still requires a skilled stay. [facility] initiated a Medicaid application for pt. [place] Medicaid Application/pending number forward to [facility] if needed for transfer out. Pts cousin Ursula shared with that she heard that pt may have a history of substance abuse and this could be contributing to her current condition. SW unsure of this and encouraged her to speak with physician about this when she is next here visiting with pt. Web Design Intern: Jacqueline Edwards LSW, MSW Day 4 Note: 09/19/23 Pt was transfered to [facility], residential referrals updated. SW signing off. Web Design Intern: Jacqueline Edwards LSW, MSW - * Requested Intvs/Referrals * Research Editor Referrals: SNF/LTAC Placement Web Design Intern I Referrals: Financial Issues/Medicaid Applications - * HEALTHCARE DECISIONS * Living Will: Unknown Durable Power of [place] Insulation Setter for Health Care: Unknown [facility] DNR Comfort Care: Unknown [facility] DNR Comfort Care Arrest: Unknown - Home Health/IV Infusion/Wound Vac Home Health Referral Indicated: Yes Home Health List Provided: Yes Indication for Home Health: Wound Care, Other Patient's Response: Yes Home Health Agencies: [facility] Patient given options to view quality scores of facility?: No Entered by: MARY Rodriguez MSW on 09/19/23 1107 Report Signed by: LORNA Ovalle on 09/19/23 1108 < > Report Signed by: on Normal [facility] Albumin [Mass/volume] in Ser um or PlasmaOrdered By: Troy Garber on 09-18-2023 Albumin [Mass/Vol] 2.5 g/dL Low 3.5-5.0 [facility] Basophils Auto (Bld) [#/Vol] Ordered By: Troy Garber on 09-18-2023 Basophils (Bld) [#/Vol] 100 /cmm 0-200 [facility] Basophils/100 WBC Auto (Bld) Ordered By: Troy Garber on 09-18-2023 Basophils/100 WBC (Bld) 0.7 % 0-2 [facility] Blood Cultureon 09-18-2023 Bacteria identified Cx Nom (Bld) No growth after 5 days. Normal [facility] Comment on above: Performed By: #### M 110.0050 #### Main Laboratory ([facility]) [address] [place] [address] Drew Granger MD Performed By: #### L 100.0050 #### Main Laboratory ([facility]) [address] [place] [address] Drew Granger MD Blood anion gapOrdered By: Martir Garber on 09-18-2023 Anion gap (Bld) [Moles/Vol] 6 mmol/L 4-12 [facility] Blood coagulation panelOrder ed By: Troy Garber on 09-18-2023 Blood coagulation panel 100 /cmm 0-500 [facility] Blood hematocrit (volume fra ction)Ordered By: Troy Garber on 09-18-2023 Hematocrit (Bld) [Volume fraction] 24.2 % Low 35.0-44.0 [facility] Blood hemoglobin measurement (mass/volume)Ordered By: Troy Garber on 09-18-2023 Hemoglobin (Bld) [Mass/Vol] 8.2 g/dL Low 12.0-15.0 [facility] CBC with Differentialon 08-25 Abs Baso Count 100 /cmm Normal 0-200 [facility] Comment on above: Performed By: #### M 140.0200 #### Main Laboratory ([facility]) [address] [place] [address] Drew Granger MD Abs Eos Count 100 /cmm Normal 0-500 [facility] Comment on above: Performed By: #### M 140.0200 #### Main Laboratory ([facility]) [address] [place] [address] Drew Granger MD Abs Lymph Count 1100 /cmm Normal 0033-4857 [facility] Comment on above: Performed By: #### M 140.0200 #### Main Laboratory ([facility]) [address] [place] [address] Drew Granger MD Abs Graham Count 600 /cmm Normal 0-800 [facility] Comment on above: Performed By: #### M 140.0200 #### Main Laboratory ([facility]) [address] [place] [id number] Drew Granger MD Abs Neut Count 7600 /cmm Normal 6846-1574 [facility] Comment on above: Performed By: #### M 140.0200 #### Main Laboratory ([facility]) [address] [place], [place] [address] Drew Granger MD Basophils/100 WBC (Bld) 0.7 % Normal 0-2 [facility] Comment on above: Performed By: #### M 140.0200 #### Main Laboratory ([facility]) [address] [place], [place] [address] Drew Granger MD EOS-Auto Diff 0.8 % Normal 0-6 [facility] Comment on above: Performed By: #### M 140.0200 #### Main Laboratory ([facility]) [address] [place] [address] Drew Granger MD Erythrocyte distribution width (RBC) [Ratio] 16.1 % High 12.0-16.0 [facility] Comment on above: Performed By: #### M 140.0200 #### Main Laboratory ([facility]) [address] [place], [place] [address] Drew Granger MD Hematocrit (Bld) [Volume fraction] 24.2 % Low 35.0-44.0 [facility] Comment on above: Performed By: #### M 140.0200 #### Main Laboratory ([facility]) [address] [place], [place] [address] Drew Granger MD Hemoglobin (Bld) [Mass/Vol] 8.2 g/dL Low 12.0-15.0 [facility] Comment on above: Performed By: #### M 140.0200 #### Main Laboratory ([facility]) [address] [place], [facility]04 Drew Granger MD Lymphocytes/100 WBC (Bld) 11.7 % Low 15-45 [facility] Comment on above: Performed By: #### M 140.0200 #### Main Laboratory ([facility]) [address] [place] [address] Drew Granger MD MCH (RBC) [Entitic mass] 29.1 pg Normal 27.5-33.0 [facility] Comment on above: Performed By: #### M 140.0200 #### Main Laboratory ([facility]) [address] [place], [facility]04 Drew Granger MD MCHC (RBC) [Mass/Vol] 33.9 g/dL Normal 33.0-36.0 [facility] Comment on above: Performed By: #### M 140.0200 #### Main Laboratory ([facility]) [address] [place], [facility]04 Drew Granger MD MCV 85.6 CU [place] Normal 80-97 [facility] Comment on above: Performed By: #### M 140.0200 #### Main Laboratory ([facility]) [address] [place] [address] Drew Granger MD Graham- Auto Diff 6.7 % Normal 2-10 [facility] Comment on above: Performed By: #### M 140.0200 #### Main Laboratory ([facility]) [address] [place] [address] Drew Granger MD Neut-Auto Diff 80.1 % High 40-70 [facility] Comment on above: Performed By: #### M 140.0200 #### Main Laboratory ([facility]) [address] [place] [address] Drew Granger MD NRBC-Auto 0.0 /100 WBC Normal <1 [facility] Comment on above: Performed By: #### M 140.0200 #### Main Laboratory ([facility]) [address] [place] [address] Drew Granger MD Platelet Count 669 th/cmm High 150-400 [facility] Comment on above: Performed By: #### M 140.0200 #### Main Laboratory ([facility]) [address] [place], [facility]04 Drew Granger MD RBC 2.82 mil/cmm Low 4.00-5.10 [facility] Comment on above: Performed By: #### M 140.0200 #### Main Laboratory ([facility]) [address] [place], [facility]04 Drew Granger MD WBC 9.5 th/cmm Normal 4.4-10.5 [facility] Comment on above: Performed By: #### M 140.0200 #### Main Laboratory ([facility]) [address] [place], [facility] Drew Granger MD Abs Baso Count 200 /cmm Normal 0-200 [facility] Comment on above: Performed By: #### L 600.6150 #### Main Laboratory ([facility]) [address] [place], [facility] Drew Granger MD Abs Eos Count 100 /cmm Normal 0-500 [facility] Comment on above: Performed By: #### L 600.6150 #### Main Laboratory ([facility]) [address] [place] [address] Drew Granger MD Abs Lymph Count 1300 /cmm Normal 3529-0798 [facility] Comment on above: Performed By: #### L 600.6150 #### Main Laboratory ([facility]) [address] [place], [facility] Drew Granger MD Abs Graham Count 700 /cmm Normal 0-800 [facility] Comment on above: Performed By: #### L 600.6150 #### Main Laboratory ([facility]) [address] [place] [address] Drew Granger MD Abs Neut Count 6800 /cmm Normal 2354-4467 [facility] Comment on above: Performed By: #### L 600.6150 #### Main Laboratory ([facility]) [address] [place], [place] [address] Drew Granger MD Basophils/100 WBC (Bld) 2.1 % High 0-2 [facility] Comment on above: Performed By: #### L 600.6150 #### Main Laboratory ([facility]) [address] [place], [place] [address] Drew Granger MD EOS-Auto Diff 1.1 % Normal 0-6 [facility] Comment on above: Performed By: #### L 600.6150 #### Main Laboratory ([facility]) [address] [place], [place] [address] Drew Granger MD Erythrocyte distribution width (RBC) [Ratio] 16.1 % High 12.0-16.0 [facility] Comment on above: Performed By: #### L 600.6150 #### Main Laboratory ([facility]) [address] [place], [place] [address] Drew Granger MD Hematocrit (Bld) [Volume fraction] 23.5 % Low 35.0-44.0 [facility] Comment on above: Performed By: #### L 600.6150 #### Main Laboratory ([facility]) [address] [place], [place] [address] Drew Granger MD Hemoglobin (Bld) [Mass/Vol] 7.8 g/dL Low 12.0-15.0 [facility] Comment on above: Performed By: #### L 600.6150 #### Main Laboratory ([facility]) [address] [place], [facility]04 Drew Granger MD Lymphocytes/100 WBC (Bld) 14.8 % Low 15-45 [facility] Comment on above: Performed By: #### L 600.6150 #### Main Laboratory ([facility]) [address] [place], [facility]04 Drew Granger MD MCH (RBC) [Entitic mass] 28.6 pg Normal 27.5-33.0 [facility] Comment on above: Performed By: #### L 600.6150 #### Main Laboratory ([facility]) [address] [place] [address] Drew Granger MD MCHC (RBC) [Mass/Vol] 33.4 g/dL Normal 33.0-36.0 [facility] Comment on above: Performed By: #### L 600.6150 #### [facility] [facility]) [address] [place] [address] Drew Granger MD MCV 85.6 CU [place]KA Normal 80-97 [facility] Comment on above: Performed By: #### L 600.6150 #### Main Laboratory ([facility]) [address] [place] [address] Drew Granger MD Graham- Auto Diff 7.4 % Normal 2-10 [facility] Comment on above: Performed By: #### L 600.6150 #### Main Laboratory ([facility]) [address] [place], [place] [address] Drew Granger MD Neut-Auto Diff 74.6 % High 40-70 [facility] Comment on above: Performed By: #### L 600.6150 #### Main Laboratory ([facility]) [address] [place], [place] [address] Drew Granger MD NRBC-Auto 0.0 /100 WBC Normal <1 [facility] Comment on above: Performed By: #### L 600.6150 #### Main Laboratory ([facility]) [address] [place], [place] [address] Drew Granger MD Platelet Count 594 th/cmm High 150-400 [facility] Comment on above: Performed By: #### L 600.6150 #### Main Laboratory ([facility]) [address] [place] [id number] Drew Granger MD RBC 2.74 mil/cmm Low 4.00-5.10 [facility] Comment on above: Performed By: #### L 600.6150 #### Main Laboratory ([facility]) [address] [place] [address] Drew Granger MD WBC 9.1 th/cmm Normal 4.4-10.5 [facility] Comment on above: Performed By: #### L 600.6150 #### Main Laboratory ([facility]) [address] [place] [address] Drew Granger MD Case Management Daily Noteon 09-18-2023 Case Management Daily Note [facility] Case Management Patient: GEOVANNY MEJÍA [address] : 1970 [place], [place] [address] Location: [address] [place] [address] Unit #: [id number] Case Management Daily Note Kait N Justusning Service Date: 09/18/23 Case Mgmt Daily Note - Plan of Care [employer] Agrees with Attending and Consult Plan: Yes - Patient Preferences AND Goals What is the patient's preference?: Services to be Determined Recommended acute discharge goals: Services to be Determined - COVID-19 Was Position Statement Letter Delivered?: Yes - Care Coordination Communication Care Coordination Communication: Spoke with patient's family via phone - Hospital Stay Days Day 1 Comment: 09/08 Met with patient in the room. Patient is from [place]. She is up here to visit her sister. Patient reporting she is normally independent. Does not have a PCP. Patient would like to use [facility] for meds. Planning to have her cousin pick her up at d/c. Contact is her cousin Ursula. Denies having LW/dPOA. [employer]: Evelyne Pena, RN Day 2 Comment: 09/09 Met with patient in the room. Patient asking to get up and move around. PT/OT to eval. S/p L ABD drain placement. Patient agreeable to [facility] for drain mgmt if needed. Reporting she will be going to [facility] at d/c to stay with her cousin Ursula. CM spoke with patients cousin Ursula via telephone who reports she is ok with [facility] coming to her home if patient would go there at d/c. Ursula reporting patient was homeless in [place] and recently move to [place] with her sister Monique. [employer]: Evelyne Pena, RN Day 3 Comment: 09/10 D/c needs pending medical course. Jr mullen. 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 PT/OT. ID c/s. Therapy recs for IPR vs OP PT. Will follow to assist with d/c needs. [employer]: Evelyne Pena, RN Day 4 Comment: 09/11 Met with patient in the room who is planning to d/c to her cousin Gena lutz in [place], [place]. Patient is agreeable to [facility]. CM spoke with Ursula who is agreeable for patient to come there at d/c. Referral sent to [facility]. Await approval. [employer]. ABD drain. NPO. ID c/s. PT/OT. [employer]: Evelyne Pena, RN Day 5 Comment: 09/12 Met with patient in the room to discuss d/c plan. Patient unable to move b/l LE. No sensation to RLE. Does have sesation to LLE. PT/OT recommending SNF, patient agreeable. She would like to go somewhere near her cousin Ursula in [place], [place]. CM assisted patient with changing her address with her [facility] insurance to an [place] address. c/s for SNF placement and [place] assist with [place]. Patient will need a precert. 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 If patient would improve with mobility, she has been accepted to [facility]. CM spoke with Ursula via telephone to update. [employer]: Evelyne Pena, RN Day 6 Comment: 09/15- POD 2. CM spoke with patient at bedside. VSS. WBC 19.9. PT/OT rec SNF. Pt verbalized agreeable for SNF and would like [facility]. MANOLO c/s AND reported that [facility] is not in network with pt insurance. MANOLO spoke w/ pt AND Lamin is now reviewing patient. Pt is awaiting the start of [place] [facility] application with [employer] as current dual insurance is out of state. Pt will also require a precert when medically ready. LENY following. [employer]: Dina Abebe Day 8 Comment: 09/15- POD 2. CM spoke with patient at bedside. VSS. WBC 19.9. PT/OT rec SNF. Pt verbalized agreeable for SNF and would like [facility]. SW c/s. Pt will require precert when medically ready. CM following. Day 9 Comment: 09/16- Noted plan changed to dc to [facility] pending bed AND accepting physician. CM contacted [facility] this AM and spoke with Ashish, who explained that they will NOT be able to accept the patient d/t her insurance not in network. CM updated the attending. Attending noted plans to attempt transfer to [facility] AND if denied, to attempt transfer to [facility], per pt preferance. Transfer packet completed. CM following. @12:21- Nurse reported to CM that Dr Holt has declined to take pt, per [facility], AND that a message was relayed to the attending. @14:30- [employer] has assisted pt with completion of [place] GWEN vilma. CM faxing documentation to [facility] AND calling now to verify if they are able to accept pt with that. If unable, CM to fax AND verify w/ [facility]. If neither hospital is able to accept, attending plans to reach out to [facility]. @15:00- CM spoke with Shelby at [facility]. Shelby reported that she will communicate with her team AND call CM back with a determination. CM to update attending physician. @15:45- CM received cb from Roseline at [facility]. Roseline stated that their neurosurgeon wants [facility] to call them to consider if they would be willing to take the patient, despite GWEN pending status and out of network insurance. CM updated the attending. [employer]: Dina Abebe Day 10 Comment: 09/17- CM received perfect serve not (more content not included)... Normal [facility] Case Management General Note on 09-18-2023 Case Management General Note [facility] Case Management Patient: GEOVANNY MEJÍA [address] : 1970 [place], [place] [address] Location: [phone] Unit #: [id number] Case Management General Note Karime Lowery RN Service Date: 09/18/23 Case Management General Note - Note Note: I was updated that patient had received a bed at [facility]. Bed 888. Accepting physician Dr. Huff. I was asked to arrange air transport. 1730: CM contacted [employer]. Updated of approx arrival 1753P. Primary nursing, attending updated. Security and AOS updated. Paperwork faxed and placed on chart. Primary nurse reports she had updated patient and family. - Letter Delivered Was Position Statement Letter Delivered?: Yes Entered by: Karime Lowery on 09/18/231746 Report Signed by: Karime Lowery RN on 09/18/231753 < > Co-Signed by: on Normal [facility] Eosinophils/100 WBC Auto (Bl d)Ordered By: Troy Garber on 09-18-2023 Eosinophils/100 WBC (Bld) 0.8 % 0-6 [facility] Erythrocyte distribution wid th ratioOrdered By: Troy Garber on 09-18-2023 Erythrocyte distribution width (RBC) [Ratio] 16.1 % High 12.0-16.0 [facility] Ferritinon 09-18-2023 Ferritin [Mass/Vol] 347 ng/mL High 12-263 [facility] Comment on above: Performed By: #### L 400.0410 #### Main Laboratory ([facility]) [address] [place] [address] Drew Granger MD Iron Binding and Saturationo n 09-18-2023 % Iron Saturation 7 % Low 15-50 [facility] Comment on above: Performed By: #### M 140.0200 #### Main Laboratory ([facility]) [address] [place] [address] Drew Granger MD Iron, Serum 16 mcg/dL Low 28-170 [facility] Comment on above: Performed By: #### M 140.0200 #### Main Laboratory ([facility]) [address] [place] [address] Drew Granger MD Transferrin [Mass/Vol] 152 mg/dL Low 192-382 [facility] Comment on above: Performed By: #### M 140.0200 #### Main Laboratory ([facility]) [address] [place] [address] Drew Granger MD Lymphocytes/100 WBC Auto (Bl d)Ordered By: Troy Garber on 09-18-2023 Lymphocytes/100 WBC (Bld) 11.7 % Low 15-45 [facility] MCH Auto (RBC) [Entitic mass ]Ordered By: Troy Garebr on 09-18-2023 MCH (RBC) [Entitic mass] 29.1 pg 27.5-33.0 [facility] MCHC Auto (RBC) [Mass/Vol]Or dered By: Troy Garber on 09-18-2023 MCHC (RBC) [Mass/Vol] 33.9 g/dL 33.0-36.0 [facility] MCV Auto (RBC) [Entitic vol] Ordered By: Troy Garber on 09-18-2023 MCV (RBC) [Entitic vol] 85.6 CU MILKA 80-97 [facility] MRI Cervical Spine w/wo Cont pedro 09-18-2023 MRI Cervical Spine w/wo Contr [facility] Radiology Department Patient: GEOVANNY MEJÍA [address] : 1970 Sex: [place] [address] Location: [phone] Unit #: [id number] Ordering Phys: Troy Garber MD Exam Date: 09/18/23 Exam: MRI MRI Cervical Spine w/wo Contr Result: See Report ADDENDUM: [id number] STUDY: MRI CERVICAL SPINE WITH AND WITHOUT CONTRAST REASON FOR EXAM: Female, 53 years old[address] recommended by Dr clemons to r/o extension of absces TECHNIQUE: Standardized fat and water weighted pulse sequences were obtained in the sagittal and axial following administration of IV Gadavist 8ml. COMPARISON: [address] FINDINGS: Craniocervical junction and cervical spine are aligned. Diffuse marrow is normal. There is subchondral acute marrow reaction at C6-C7. There is C5-C6 ACDF. There is abnormal signal in the appearance of the disc superimposed on chronic degenerative changes. Remainder the vertebral bodies are intact with normal discs and marrow. Spinal cord is moderately compressed at C6-C7 due to combination of underlying degenerative change and superimposed acute inflammatory change in the epidural space. Circumferentially at C6-C7 and extending dorsally into the upper thoracic spine. There are surgical changes in the upper thoracic spine, described on a recent report with inflammation/fluid. There is right C7 paraspinous abscess with 1 cm internal cavity extending superiorly and probably communicating with epidural space along between the lamina of C5 and C6. The inflammation overlaps the right C6 and C7 pars and articular facets. The examination into the epidural space at C6-C7 and C7-T1 foramina. There is inflammation along the anterior prevertebral space which is difficult to separate from esophagus. IMPRESSION: 1. C6-C7 discitis osteomyelitis. 2. C6-C7 and dorsal cervicothoracic epidural phlegmon. 3. C6-C7 moderate cord compression by infection superimposed on underlying degenerative disease. 4. Upper thoracic spinal/soft tissue infection. 5. Right paraspinous C6 and C7 abscess communicating with epidural space. N.B. : The above Results were Read Back by Kwabena Yu MD to Troy Garber MD, and understanding confirmed on 09/18/2023 14:54:36 (ET). Electronically Signed: Kwabena Yu MD at 14:21 EDT , Addendum Dictated by: Kwabena Yu MD on 09/18/23 at 1421 Transcribed by: Kwabena Yu MD on 09/18/23 at 1421 Report Signed by: Kwabena Yu MD on 09/18/23 1421 We are attempting to reach an attending provider to discuss findings. An addendum with communication details will be sent when the communication is complete. [id number] STUDY: MRI CERVICAL SPINE WITH AND WITHOUT CONTRAST REASON FOR EXAM: Female, 53 years old[address] recommended by Dr clemons to r/o extension of absces TECHNIQUE: Standardized fat and water weighted pulse sequences were obtained in the sagittal and axial following administration of IV Gadavist 8ml. COMPARISON: [address] FINDINGS: Craniocervical junction and cervical spine are aligned. Diffuse marrow is normal. There is subchondral acute marrow reaction at C6-C7. There is C5-C6 ACDF. There is abnormal signal in the appearance of the disc superimposed on chronic degenerative changes. Remainder the vertebral bodies are intact with normal discs and marrow. Spinal cord is moderately compressed at C6-C7 due to combination of underlying degenerative change and superimposed acute inflammatory change in the epidural space. Circumferentially at C6-C7 and extending dorsally into the upper thoracic spine. There are surgical changes in the upper thoracic spine, described on a recent report with inflammation/fluid. There is right C7 paraspinous abscess with 1 cm internal cavity extending superiorly and probably communicating with epidural space along between the lamina of C5 and C6. The inflammation overlaps the right C6 and C7 pars and articular facets. The examination into the epidural space at C6-C7 and C7-T1 foramina. There is inflammation along the anterior prevertebral space which is difficult to separate from esophagus. IMPRESSION: 1. C6-C7 discitis osteomyelitis. 2. C6-C7 and dorsal cervicothoracic epidural phlegmon. 3. C6-C7 moderate cord compression by infection superimposed on underlying degenerative disease. 4. Upper thoracic spinal/soft tissue infection. 5. Right paraspinous C6 and C7 abscess communicating with epidural space. Electronically Signed: Kwabena Yu, (more content not included)... Normal [facility] Magnesiumon 09-18-2023 Magnesium [Mass/Vol] 2.2 mg/dL Normal 1.8-2.5 [facility] Comment on above: Performed By: #### M 140.0200 #### Main Laboratory ([facility]) [address] [place] [address] Drew Granger MD Monocytes Auto (Bld) [#/Vol] Ordered By: Troy Garber on 09-18-2023 Monocytes (Bld) [#/Vol] 600 /cmm 0-800 [facility] Monocytes/100 WBC Auto (Bld) Ordered By: Troy Garber on 09-18-2023 Monocytes/100 WBC (Bld) 6.7 % 2-10 [facility] Neutrophils/100 WBC Auto (Bl d)Ordered By: Troy Garber on 09-18-2023 Neutrophils/100 WBC (Bld) 80.1 % High 40-70 [facility] No Panel InformationOrdered By: Troy Garber on 09-18-2023 Absolute Lymphocytes (auto) 1100 /cmm [id number] [facility] Absolute Neutrophils (auto) 7600 /cmm [id number] [facility] Glomerular Filtration Rate Calc > 60 >60 [facility] Comment on above: AGE(years) AVERAGE G FR 50-59 93 ml/min/1.73 square metersNote:This result is normalized to 1.73 square meter body surface area. Height and weight are not factored.Chronic Kidney Disease stages by NKDFStage eGFR I >90 II 60-89 III 30-59 IV 15-29 V <15 or dialysis Nucleated RBC Auto (Bld) [#/ Vol]Ordered By: Troy Garber on 09-18-2023 Nucleated RBC (Bld) [#/Vol] 0.0 /100 WBC <1 [facility] Platelets Auto (Bld) [#/Vol] Ordered By: Troy Garber on 09-18-2023 Platelets (Bld) [#/Vol] 669 th/cmm High 150-400 [facility] Progress Note - Hospitalisto n 09-18-2023 Progress Note - Hospitalist [facility] Medical Records Patient: GEOVANNY MEJÍA. : 1970 [place], [place] [address] Location: [phone] Unit #: [id number] Progress Note - Hospitalist Troy Garber MD Service Dt/Tm: 09/18/23 2362 Assessment/Plan Assessment/Plan (1) Intra-abdominal abscess: Status: Acute Code(s): K65.1 - Peritoneal abscess Plan: 2 attempts at percutaneous drainage by IR has failed, and therefore general surgery consult has been recalled to assess the patient for their input and further recommendations. This has been the source of patient's bacteremia and distant seeding of the MSSA especially to the thoracic spine leading to the epidural abscess. Continue with IV antibiotic, which is being directed by ID consult. Patient remains in-house awaiting transfer to the [facility] whenever bed becomes available. We will continue with aggressive management as outlined. (2) Abscess in epidural space of thoracic spine: Status: Acute Code(s): G06.1 - Intraspinal abscess and granuloma Plan: Patient has finally been accepted at the [facility] upon converting her insurance to the [place] Medicaid. Currently she remains in-house awaiting a bed availability and transport to the [facility] to be assessed by neurosurgery and general surgery consult. Patient will need to have the source of the infection addressed, and as indicated above, another tube has been placed by IR yesterday, which is not draining. And we will continue with IV antibiotic as directed by ID consult. (3) Staphylococcus aureus septicemia: Status: Acute Code(s): A41.01 - Sepsis due to Methicillin susceptible Staphylococcus aureus Plan: Infectious disease consult monitoring and managing antibiotics for the septicemia. (4) HTN (hypertension): Status: Acute Qualifiers: Hypertension type: primary hypertension Qualified Code(s): I10 - Essential (primary) hypertension Code(s): I10 - Essential (primary) hypertension Plan: Continue with home regimen of antihypertensive, however will monitor closely because of the infection for hypotensive episodes. (5) Asthma: Status: Acute Qualifiers: Asthma complication type: uncomplicated Asthma persistence: intermittent Asthma severity: mild Qualified Code(s): J45.20 - Mild intermittent asthma, uncomplicated Code(s): J45.909 - Unspecified asthma, uncomplicated Plan: Home medication regimen as resumed, will continue with supportive management. (6) Normocytic normochromic anemia: Status: Acute Code(s): D64.9 - Anemia, unspecified Plan: Unclear etiology, however in the setting of infection, would want the infection to be brought under control prior to replenishing the iron stores. We will be obtaining anemia work-up. (7) Hyponatremia: Status: Acute Code(s): E87.1 - Hypo-osmolality and hyponatremia Plan: Unclear duration, stable and asymptomatic. Patient will need further work-up. This could be hypovolemia from dehydration. (8) Severe protein-calorie malnutrition: Status: Acute Code(s): E43 - Unspecified severe protein-calorie malnutrition Plan: Patient has albumin of 2.7 and prealbumin of 5 signaling severe protein calorie malnutrition. Patient will therefore need dietary consult to assist in the management since she needs proteins for healing process. (9) Hypocalcemia: Status: Acute Code(s): E83.51 - Hypocalcemia Plan: Patient does have hypocalcemia and previous ionized calcium was low. Patient is being started on vitamin D 5000 international units daily by mouth, and also Os-Riley 500, 1 tablet daily. We will continue to monitor serum calcium closely. (10) Electrolyte imbalance: Status: Acute Code(s): E87.8 - Other disorders of electrolyte and fluid balance, not elsewhere classified Plan: Including but not limited to hypocalcemia, hypokalemia and hypophosphatemia. Electrolyte imbalance is being corrected per protocol and will be repeating labs this p.m. and tomorrow morning. Plan Currently awaiting bed availability for transfer to [facility] for general surgery and neurosurgery evaluation with further recommendations. CT scan of the abdomen and pelvis showing increase in the volume of the retroperitoneal abscess and patient had another drain placed by IR for abscess drainage yesterday, however this has not been successful in draining the abscess. Continue with empiric IV antibiotic as outlined, will optimize pain control. General surgery has been consulted here to evaluate the patient for their input, since there has been a delay in the transfer to the [facility]. We will continue to follow and monitor patient pending transfer. Current Code Status AND Diet: 09/08/23 13:19 Code Status Routine Resuscitation Status: Full Code Code Status Order Placed: Code Status Ordered 09/08/23 at 1321 09/17/23 17:13 NPO with Meds Only Additional Instructions: NPO with medications only 6 hours prior to (more content not included)... Normal [facility] Progress Note Neurosurgeryon 09-18-2023 Progress Note Neurosurgery [facility] Medical Records Patient: GEOVANNY MEJÍA [address] : 1970 [place], [place] [address] Location: [phone] [id number] Neurosurgery Lucy Lara PA-C Service Dt/Tm: 09/18/23 1546 Assessment/Plan (1) Bacteremia: Status: Acute (2) Retroperitoneal abscess: Status: Acute Plan postop day 5 Hemilaminectomy T4-5 with evacuation of dorsal spinal epidural abscess; hemilaminectomy with transpedicular decompression T10 on the left side with evacuation of ventral spinal epidural abscess on 09/13/23 Stat Cervical MRI completed today concerning for phlegmon vs infection. Recommend surgical intervention with anterior cervical discectomy and fusion C6-7 with exploration of previous fusion C5-6 and removal of plate; possible corpectomy and decompression of ventral cord later today. Risks of worsening infection and loss of UE function among other things and benefits reviewed with the patient. Pt is npo. Consent will be signed. POC discussed with Dr. Clemons who agrees. Assessment/Plan (1) Bacteremia: (2) Retroperitoneal abscess: Plan postop day 5 Hemilaminectomy T4-5 with evacuation of dorsal spinal epidural abscess; hemilaminectomy with transpedicular decompression T10 on the left side with evacuation of ventral spinal epidural abscess on 09/13/23 Stat Cervical MRI completed today concerning for phlegmon vs infection. Recommend surgical intervention with anterior cervical discectomy and fusion C6-7 with exploration of previous fusion C5-6 and removal of plate; possible corpectomy and decompression of ventral cord later today. Risks of worsening infection and loss of UE function among other things and benefits reviewed with the patient. Pt is npo. Consent will be signed. POC discussed with Dr. Clemons who agrees. Patient continues to experience varying degrees of osteomyelitis, discitis, epidural fluid collections. She is remained unchanged neurologically in the lower extremities and has been without progressive complaints in the upper extremities. However, an MRI scan of the cervical spine was performed with and without contrast to assess the cranial access. When reviewing the radiographic studies along with the radiology report, there is a area of concern affecting the ventral thecal sac at C6-7. Based on the progressive nature of her prior epidural abscesses and the continued findings within the various thoracic vertebral bodies, I felt this it necessary to consent the patient for debridement and decompression of the cervical spine. Risks, benefits, complications were discussed extensively along with expectations. Unfortunately the patient's may continue to develop areas of infection since the source may not be fully addressed at this time. As we are preparing the patient for surgery, the tertiary center made us aware that transport would be available to move her from our location to their location within a very reasonable period of time. For this reason, I elected to forego the surgery which was planned on an emergent basis and allow the tertiary center to assume care. Fortunately, the neurologic status remains stable in the upper extremities and I did not feel it would be unreasonable to allow the transfer. The surgery was subsequently canceled and the patient transferred. Willy MEJÍA is a 53 yr old F who was admitted on 09/08/23 for INTRA ABDOMINAL ABCESS. S: Patient postop day 5 Hemilaminectomy T4-5 with evacuation of dorsal spinal epidural abscess; hemilaminectomy with transpedicular decompression T10 on the left side with evacuation of ventral spinal epidural abscess on 09/13/2023. Patient examined lying in bed. She continues to complain about pain and inability to move LE. Cervical MRI completed today concerning for abscess vs phlegmon present at C6-7 with instrumentation present at C5-6. Please see official report. Objective Hemodynamics: Vital Signs - Last Set Temperature 98.5 F 09/18/23 14:55 Intake and Output Intake Total 2373.61 2035.17 982.56 Output Total 3400 5050 1200 Balance -1026.39 -3014.83 -217.44 Daily Weight: Admitting (IV Pump) Weight 83 kg Actual Weight (Kg) 83 kg General: Alert and Other (lying in bed) Skin: Warm, Dry Extremities: Warm and Dry Neurologic: Other (spontaneous movement of UE. 0/4 power LE) Psychological: Agitated Results: Laboratory Results - last 24 hr Microbiology 09/13/23 16:06 Blood,Venous - Final Test not indicated 09/13/23 16:06 Blood,Venous Blood Culture - Final No growth after 5 days. 09/13/23 15:55 Blood,Venous - Final Test not indicated 09/13/23 15:55 Blood,Venous Blood Culture - Final No growth after 5 days. 09/13/23 05:00 Back Gram Stain - Final 09/13/23 05:00 Back Wound Culture - Final Staphylococcus aureus I have reviewed the diagnostic image (more content not included)... Normal [facility] RBC Auto (Bld) [#/Vol]Ordere d By: Troy Jcarlos on 09-18-2023 RBC (Bld) [#/Vol] 2.82 mil/cmm Low 4.00-5.10 [facility] Renal Function Panelon 09-18 Albumin [Mass/Vol] 2.5 g/dL Low 3.5-5.0 [facility] Comment on above: Performed By: #### M 140.0200 #### Main Laboratory ([facility]) [address] [place] [address] Drew Granger MD Anion gap [Moles/Vol] 6 mmol/L Normal 4-12 [facility] Comment on above: Performed By: #### M 140.0200 #### Main Laboratory ([facility]) [address] [place] [address] Drew Granger MD Calcium [Mass/Vol] 8.30 mg/dL Low 8.8-10.5 [facility] Comment on above: Performed By: #### M 140.0200 #### Main Laboratory ([facility]) [address] [place] [address] Drew Granger MD Chloride [Moles/Vol] 94 mmol/L Low 101-111 [facility] Comment on above: Performed By: #### M 140.0200 #### Main Laboratory ([facility]) [address] [place] [address] Drew Granger MD CO2 [Moles/Vol] 28 mmol/L Normal 21-32 [facility] Comment on above: Performed By: #### M 140.0200 #### Main Laboratory ([facility]) [address] [place] [address] Drew Granger MD Creatinine [Mass/Vol] 0.50 mg/dL Low 0.60-1.30 [facility] Comment on above: Performed By: #### M 140.0200 #### Main Laboratory ([facility]) [address] [place] [address] Drew Granger MD GFR Calculation > 60 Normal [facility] Comment on above: Result Comment: [facility] dontrell Kidney Disease stages by NKDF Stage eGFR I >90 II 60-89 III 30-59 IV 15-29 V <15 or dialysis AGE(years) AVERAGE GFR 50-59 93 ml/min/1.73 square meters Note:This result is normalized to 1.73 square meter body surface area. Height and weight are not factored. Performed By: #### M 140.0200 #### Main Laboratory ([facility]) [address] [place] [address] Drew Granger MD Glucose [Mass/Vol] 113 mg/dL High 70-110 [facility] Comment on above: Performed By: #### M 140.0200 #### Main Laboratory ([facility]) [address] [place] [address] Drew Granger MD Phosphate [Mass/Vol] 4.6 mg/dL Normal 2.4-4.7 [facility] Comment on above: Performed By: #### M 140.0200 #### Main Laboratory ([facility]) [address] [place] [address] Drew Granger MD Potassium [Moles/Vol] 4.1 mmol/L Normal 3.6-5.0 [facility] Comment on above: Performed By: #### M 140.0200 #### Main Laboratory ([facility]) [address] [place] [address] Drew Granger MD Sodium [Moles/Vol] 128 mmol/L Low 135-145 [facility] Comment on above: Performed By: #### M 140.0200 #### Main Laboratory ([facility]) [address] [place] [address] Drew Granger MD Urea nitrogen [Mass/Vol] 8 mg/dL Normal 7-20 [facility] Comment on above: Performed By: #### M 140.0200 #### Main Laboratory ([facility]) [address] [place] [address] Drew Granger MD Reticulocyte Counton 023 Reticulocyte Count 7.01 % High 0.90-2.60 [facility] Comment on above: Performed By: #### L 600.6150 #### Main Laboratory ([facility]) [address] [place] [address] Drew Granger MD Reticulocytes/100 RBC Auto ( Bld)Ordered By: Troy Garber on 09-18-2023 Reticulocytes/100 RBC (Bld) 7.01 % High 0.90-2.60 [facility] Serum or plasma calcium tamera urement (mass/volume)Ordered By: Troy Garber on 09-18-2023 Calcium [Mass/Vol] 8.30 mg/dL Low 8.8-10.5 [facility] Serum or plasma carbon dioxi de, total measurement (moles/volume)Ordered By: Troy Garber on 09-18-2023 CO2 [Moles/Vol] 28 mmol/L 21-32 [facility] Serum or plasma chloride cici surement (moles/volume)Ordered By: Troy Garber on 09-18-2023 Chloride [Moles/Vol] 94 mmol/L Low 101-111 [facility] Serum or plasma creatinine m easurement (mass/volume)Ordered By: Troy Garber on 09-18-2023 Creatinine [Mass/Vol] 0.50 mg/dL Low 0.60-1.30 [facility] Serum or plasma ferritin cici surement (mass/volume)Ordered By: Troy Garber on 09-18-2023 Ferritin [Mass/Vol] 347 ng/mL High 12-263 [facility] Serum or plasma glucose tamera urement (mass/volume)Ordered By: Troy Garber on 09-18-2023 Glucose [Mass/Vol] 113 mg/dL High 70-110 [facility] Serum or plasma iron measure ment (mass/volume)Ordered By: Troy Garber on 09-18-2023 Iron [Mass/Vol] 16 ug/dL Low 28-170 [facility] Serum or plasma iron saturat ion measurement (mass fraction)Ordered By: Troy Garber on 09-18-2023 Iron saturation [Mass fraction] 7 % Low 15-50 [facility] Serum or plasma magnesium me asurement (mass/volume)Ordered By: Troy Garber on 09-18-2023 Magnesium [Mass/Vol] 2.2 mg/dL 1.8-2.5 [facility] Serum or plasma phosphate me asurement (mass/volume)Ordered By: Troy Garber on 09-18-2023 Phosphate [Mass/Vol] 4.6 mg/dL 2.4-4.7 [facility] Serum or plasma potassium me asurement (moles/volume)Ordered By: Troy Garber on 09-18-2023 Potassium [Moles/Vol] 4.1 mmol/L 3.6-5.0 [facility] Serum or plasma sodium measu rement (moles/volume)Ordered By: Troy Garber on 09-18-2023 Sodium [Moles/Vol] 128 mmol/L Low 135-145 [facility] Serum or plasma transferrin measurement (mass/volume)Ordered By: Troy Garber on 09-18-2023 Transferrin [Mass/Vol] 152 mg/dL Low 192-382 [facility] Serum or plasma urea nitroge n measurement (mass/volume)Ordered By: Troy Garber on 09-18-2023 Urea nitrogen [Mass/Vol] 8 mg/dL 7-20 [facility] Status Note/Updateon 023 Status Note/Update [facility] Medical Records Patient: GEOVANNY MEJÍA [address] : 1970 [place], [place] [address] Location: [phone] Unit #: [id number] Status Note/Update Valeriy Cantu Jr DO Service Dt/Tm: 09/18/23 1523 Note: GEOVANNY MEJÍA is a 53 yr old F who was admitted on 09/08/23 for INTRA ABDOMINAL ABCESS. From chart review and speaking to the surgical team, the patient was previously seen by the surgery service and recs for IR guided drain was given. The patient underwent drain placement and per NSGY notes, the patient had an abscess that required higher level of care considering the extensive nature of the process and its involvement with the spine. I agree with this plan. The patient will be transferred to a higher level of care. Entered by: Valeriy Cantu Jr, DO on 09/18/231522 Report Signed by: Valeriy Cantu Jr, MD on 09/18/231524 < > Report Signed by: on Normal [facility] Status Note/Update [facility] Medical Records Patient: GEOVANNY MEJÍA. : 1970 [place] [address] Location: [phone] Unit #: [id number] Status Note/Update Troy Garber MD Service Dt/Tm: 09/18/231522 Note: GEOVANNY MEJÍA is a 53 yr old F who was admitted on 09/08/23 for INTRA ABDOMINAL ABCESS. 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 Discussed with Dr. Clemons and he is going to plan for surgery. Nursing staff have been notified to keep the patient n.p.o. and to prepare the patient for surgery. However the source remains in place which is the intra-abdominal region and that needs to be addressed by general surgery. We will continue with empiric IV antibiotic awaiting further procedures. Patient also remains on the transfer list, to be transferred whenever a bed becomes available. Entered by: Troy Garber MD on 09/18/231522 Report Signed by: Troy Garber MD on 09/18/231524 < > Report Signed by: on Normal [facility] Status Note/Update [facility] Medical Records Patient: GEOVANNY MEJÍA. : 1970 [place] [address] Location: [phone] Unit #: [id number] Status Note/Update Alec Clemons MD Service Dt/Tm: 09/18/23 1510 Note: GEOVANNY MEJÍA is a 53 yr old F who was admitted on 09/08/23 for INTRA ABDOMINAL ABCESS. Cervical MRI performed today as a surveillance for continued infection Patient has been noted to have progressive findings at C6-7 with impingement of the ventral thecal sac suggestive of a either a phlegmon or purulent collection Please refer to the official radiology report Currently, patient has utilization of the upper extremities and is unable to mobilize her lower extremities Instrumentation is present in her cervical spine at C5-6 which will have to be removed in order to optimize any debulking of the cervical cord Risks, benefits, complications have been discussed A consent has been obtained Anticipate probable anterior cervical discectomy and fusion C6-7 with exploration of previous fusion C5-6 and removal of plate; possible corpectomy and decompression of ventral cord Entered by: Alec Clemons MD on 09/18/231509 Report Signed by: Alec Clemons MD on 09/18/231522 < > Report Signed by: on Normal [facility] Type and Screen(No Crossmatc h)on 09-18-2023 AB Screen (IAT) Negative Normal [facility] Comment on above: Performed By: #### B 100.0750 ####Main Laboratory ([facility])[address], [place] [phone] Nivar, MD ABO and Rh group Nom (Bld) Blood group O Rh(D) positive Normal [facility] Comment on above: Performed By: #### B 100.0750 ####Main Laboratory ([facility])[address], [place] [phone] Nivar, MD WBC Auto (Bld) [#/Vol]Ordere d By: Troy Garber on 09-18-2023 WBC (Bld) [#/Vol] 9.5 th/cmm 4.4-10.5 [facility] Wound cult/smr aer & anaon 1 Wound cult/smr aer & roseline Gram stain result Rare Gram positive cocci in pairs and chains ORGANISM 1: Staphylococcus aureus Amount of growth Moderate Comments No growth of anaerobes Staphylococcus aureus: REACTION Clindamycin <=0.25 S Erythromycin <=0.25 S Gentamicin <=0.5 S Linezolid 2 S Moxifloxacin <=0.25 S Levofloxacin 0.25 S Oxacillin <=0.25 S Penicillin >=0.5 R Rifampin <=0.5 S Tetracycline <=1 S Trimethoprim/Sulfamet hoxazole <=10 S Vancomycin <=0.5 S Normal [facility] Comment on above: Order Comment: Addit ional Instructions 1) Thoracic abscess Performed By: #### L 100.0050 #### Main Laboratory ([facility]) [address] [place] [address] Drew Granger MD CBC with Differentialon 08-25 Abs Baso Count 200 /cmm Normal 0-200 [facility] Comment on above: Performed By: #### L 100.0000 ####Main Laboratory ([facility])[address], [place] [phone] Nivar, MD Abs Eos Count 100 /cmm Normal 0-500 [facility] Comment on above: Performed By: #### L 100.0000 ####Main Laboratory ([facility])[address], [place] [phone] Nivar, MD Abs Lymph Count 1700 /cmm Normal 1378-4093 [facility] Comment on above: Performed By: #### L 100.0000 ####Main Laboratory ([facility])[address], [place] [phone] Nivar, MD Abs Graham Count 600 /cmm Normal 0-800 [facility] Comment on above: Performed By: #### L 100.0000 ####Main Laboratory ([facility])[address], [place] [phone] Nivar, MD Abs Neut Count 65605 /cmm High 3973-2581 [facility] Comment on above: Performed By: #### L 100.0000 ####Main Laboratory ([facility])[address] [phone] Nivar, MD Basophils/100 WBC (Bld) 1.8 % Normal 0-2 [facility] Comment on above: Performed By: #### L 100.0000 ####Main Laboratory ([facility])[address] [phone] Nivar, MD EOS-Auto Diff 0.6 % Normal 0-6 [facility] Comment on above: Performed By: #### L 100.0000 ####Main Laboratory ([facility])[address] [phone] Nivar, MD Erythrocyte distribution width (RBC) [Ratio] 16.1 % High 12.0-16.0 [facility] Comment on above: Performed By: #### L 100.0000 ####Main Laboratory ([facility])[address] [phone] Nivar, MD Hematocrit (Bld) [Volume fraction] 23.9 % Low 35.0-44.0 [facility] Comment on above: Performed By: #### L 100.0000 ####Main Laboratory ([facility])[address] [phone] Nivar, MD Hemoglobin (Bld) [Mass/Vol] 8.0 g/dL Low 12.0-15.0 [facility] Comment on above: Performed By: #### L 100.0000 ####Main Laboratory ([facility])[address] [phone] Nivar, MD Lymphocytes/100 WBC (Bld) 13.3 % Low 15-45 [facility] Comment on above: Performed By: #### L 100.0000 ####Main Laboratory ([facility])[address] [phone] Nivar, MD MCH (RBC) [Entitic mass] 29.0 pg Normal 27.5-33.0 [facility] Comment on above: Performed By: #### L 100.0000 ####Main Laboratory ([facility])[address] [place] [phone] Nivar, MD MCHC (RBC) [Mass/Vol] 33.7 g/dL Normal 33.0-36.0 [facility] Comment on above: Performed By: #### L 100.0000 ####Main Laboratory ([facility])[address] [phone] Nivar, MD MCV 86.1 CU MILKA Normal 80-97 [facility] Comment on above: Performed By: #### L 100.0000 ####Main Laboratory ([facility])[address] [place] [phone] Nivar, MD Graham- Auto Diff 5.0 % Normal 2-10 [facility] Comment on above: Performed By: #### L 100.0000 ####Main Laboratory ([facility])[address] [place] [phone] Nivar, MD Neut-Auto Diff 79.3 % High 40-70 [facility] Comment on above: Performed By: #### L 100.0000 ####Main Laboratory ([facility])[address] [place] [phone] Nivar, MD NRBC-Auto 0.0 /100 WBC Normal <1 [facility] Comment on above: Performed By: #### L 100.0000 ####Main Laboratory ([facility])[address], [place] [phone] Nivar, MD Platelet Count 635 th/cmm High 150-400 [facility] Comment on above: Performed By: #### L 100.0000 ####Main Laboratory ([facility])[address] [phone] Nivar, MD RBC 2.77 mil/cmm Low 4.00-5.10 [facility] Comment on above: Performed By: #### L 100.0000 ####Main Laboratory ([facility])[address] [phone] Nivar, MD WBC 13.0 th/cmm High 4.4-10.5 [facility] Comment on above: Performed By: #### L 100.0000 ####Main Laboratory ([facility])[address] [phone] Nivar, MD CT Abd/Pelvis W/Contrast 741 77on 09-17-2023 CT Abd/Pelvis W/Contrast [id number] [facility] Radiology Department Patient: GEOVANNY MEJÍA [address] : 1970 Sex: [place] [address] Location: [address] [place] [address] Unit #: [id number] Ordering Phys: Troy Garber MD Exam Date: 09/17/23 Exam: CT CT Abd/Pelvis W/Contrast [id number] Result: See Report ADDENDUM: [id number] STUDY: CT ABDOMEN AND PELVIS WITH CONTRAST REASON FOR EXAM: Female, 53 years old. Severe abd pain, left side. RADIATION DOSAGE (If Supplied By Facility): CTDIvol = ( ) mGy, DLP = ( ) mGycm TECHNIQUE: Transaxial images were obtained from the dome of the diaphragm to the symphysis pubis without oral contrast. Omnipaque 300 75ml was administered. Sagittal and coronal images were reconstructed. Individualized dose optimization techniques were used for this CT. COMPARISON: 09/10/2023 FINDINGS: Small bilateral pleural effusions with adjacent compressive atelectasis stable since the prior exam. The visualized portions of the heart are within normal limits. Normal liver. Normal gallbladder and extrahepatic biliary system. Normal spleen. Normal pancreas. Normal bilateral adrenal glands. No hydronephrosis. Normal visualized stomach. No dilated small bowel or small bowel wall thickening. No colon wall thickening. No extraluminal contrast. The appendix is visualized and appears normal. There is diffuse atherosclerotic calcification of the abdominal aorta, without a demonstrated aneurysm. Normal inferior vena cava. Left retroperitoneal pigtail drainage catheter has been retracted (no longer within the collection) since prior exam with interval increased volume of retroperitoneal fluid collection with small locules of air. Ocasio catheter decompresses urinary bladder. Normal abdominal wall. There are diffuse degenerative changes of the visualized lumbar spine. Interval lower thoracic laminectomy. IMPRESSION: 1. Since 09/10/2023, unfavorable change. INCREASED volume of left retroperitoneal fluid collection following drainage catheter retraction. 2. No large or small bowel wall thickening or extraluminal contrast. 3. Stable left larger than right pleural effusions with underlying compressive atelectasis. 4. Interval lower thoracic laminectomy/surgery. N.B. : The above Results were Read Back by Anthony Guevara MD (Brooks) to Troy Garber MD, and understanding confirmed on 09/17/2023 15:57:04 (ET). Electronically Signed: Anthony Guevara MD (Brooks) at 15:58 EDT , Addendum Dictated by: Freddy Guevara MD on 09/17/23 at 1558 Transcribed by: Freddy Guevara on 09/17/23 at 1558 Report Signed by: Freddy Guevara MD on 09/17/23 1553 [id number] STUDY: CT ABDOMEN AND PELVIS WITH CONTRAST REASON FOR EXAM: Female, 53 years old. Severe abd pain, left side. RADIATION DOSAGE (If Supplied By Facility): CTDIvol = ( ) mGy, DLP = ( ) mGycm TECHNIQUE: Transaxial images were obtained from the dome of the diaphragm to the symphysis pubis without oral contrast. Omnipaque 300 75ml was administered. Sagittal and coronal images were reconstructed. Individualized dose optimization techniques were used for this CT. COMPARISON: 09/10/2023 FINDINGS: Small bilateral pleural effusions with adjacent compressive atelectasis stable since the prior exam. The visualized portions of the heart are within normal limits. Normal liver. Normal gallbladder and extrahepatic biliary system. Normal spleen. Normal pancreas. Normal bilateral adrenal glands. No hydronephrosis. Normal visualized stomach. No dilated small bowel or small bowel wall thickening. No colon wall thickening. No extraluminal contrast. The appendix is visualized and appears normal. There is diffuse atherosclerotic calcification of the abdominal aorta, without a demonstrated aneurysm. Normal inferior vena cava. Left retroperitoneal pigtail drainage catheter has been retracted (no longer within the collection) since prior exam with interval increased volume of retroperitoneal fluid collection with small locules of air. Ocasio catheter decompresses urinary bladder. Normal abdominal wall. There are diffuse degenerative changes of the visualized lumbar spine. Interval lower thoracic laminectomy. IMPRESSION: 1. Since 09/10/2023, unfavorable change. INCREASED volume of left retroperitoneal fluid collection following drainage catheter retraction. 2. No large or small bowel wall thickening or extraluminal contrast. 3. Stable left larger than right pleural (more content not included)... Normal [facility] CT Peritoneal Abscesson 08-25 CT Peritoneal Abscess [facility] Radiology Department Patient: GEOVANNY MEJÍA. : 1970 Sex: [place] [address] Location: [facility] [phone] Unit #: [id number] Ordering Phys: Troy Garber MD Exam Date: 09/17/23 Exam: CT CT Peritoneal Abscess Result: See Report [id number] CT GUIDED FLUID COLLECTION DRAINAGE WITH PIGTAIL DRAINAGE CATHETER PLACEMENT. Indication: Reaccumulation of left retroperitoneal fluid collection. Consent: Informed, written consent was obtained from the patient, prior to procedure and following discussion of risks, benefits, alternatives and personnel. Patient oriented dose modulation technique utilized. PERFORMING PHYSICIAN: Kristin Guevara MD DATE OF PROCEDURE: 09/17/2023 FIELD CAPTAIN: NONE ESTIMATED BLOOD LOSS: Negligible COMPLICATIONS: None Technique: Patient was positioned supine on the CT table. Initial imaging demonstrated reaccumulation of fluid collection the retroperitoneum on the left side with retraction of previously placed drainage catheter, as seen on prior CT from earlier today. The skin was prepared in standard, sterile fashion. The skin was anesthetized with lidocaine and a small skin incision was made. A 5-Mosotho Yueh needle/catheter was advanced under intermittent CT guidance into the fluid collection. A J-wire passed easily. The tract was dilated with a 12 Mosotho dilator. A 12 Mosotho drainage catheter was then advanced over the wire into position, the [place] loop was positioned in the collection and locked into position. The catheter was secured to the skin with an adhesive dressing. The tube was connected to external suction drainage bag. Follow-up imaging demonstrated good positioning of the pigtail catheter. The previously placed pigtail catheter was cut and removed without incident. IMPRESSION: Technically successful drainage catheter insertion of left retroperitoneal fluid collection. If this catheter fails to adequately decompress the collection or if the collection re-accumulates, surgical intervention may be necessary. Electronically Signed: Anthony Guevara MD (Brooks) at 17:25 EDT , cc: Troy Garber MD; None Dictated by: Freddy Guevara MD on 09/17/231724 Transcribed by: Freddy Guevara on 09/17/231724 Report Signed by: Ismael MEJÍA,Freddy Nielsen on 09/17/23 1725 Normal [facility] Case Management Daily Noteon 09-17-2023 Case Management Daily Note [facility] Case Management Patient: GEOVANNY MEJÍA [address] : 1970 [place], [place] [address] Location: [phone] Unit #: [id number] Case Management Daily Note Dina Abebe Service Date: 09/17/23 Case Mgmt Daily Note - Plan of Care [employer] Agrees with Attending and Consult Plan: Yes - COVID-19 Was Position Statement Letter Delivered?: Yes - Care Coordination Communication Care Coordination Communication: Spoke with patient's family via phone - Hospital Stay Days Day 1 Comment: 09/08 Met with patient in the room. Patient is from [place]. She is up here to visit her sister. Patient reporting she is normally independent. Does not have a PCP. Patient would like to use [facility] for meds. Planning to have her cousin pick her up at d/c. Contact is her cousin Ursula. Denies having LW/dPOA. [employer]: Evelyne Pena, RN Day 2 Comment: 09/09 Met with patient in the room. Patient asking to get up and move around. PT/OT to [facility]. S/p L ABD drain placement. Patient agreeable to [facility] for drain mgmt if needed. Reporting she will be going to [facility] at d/c to stay with her cousin Ursula. spoke with patients cousin Ursula via telephone who reports she is ok with [facility] coming to her home if patient would go there at d/c. Ursula reporting patient was homeless in [place] and recently move to [place] with her sister Monique. Servicer [employer]: Evelyne Pena, RN Day 3 Comment: 09/10 D/c needs pending medical course. Jr mullen. 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 PT/OT. ID c/s. Therapy recs for IPR vs OP PT. Will follow to assist with d/c needs. Serv[employer]: Evelyne Pena, RN Day 4 Comment: 09/11 Met with patient in the room who is planning to d/c to her cousin Gena lutz in [place], [place]. Patient is agreeable to [facility]. CM spoke with Ursula who is agreeable for patient to come there at d/c. Referral sent to [facility]. Await approval. GLOBAL CHIEF CREATIVE OFFICER. ABD drain. NPO. ID c/s. PT/OT. Servicer [employer]: Evelyne Pena, RN Day 5 Comment: 09/12 Met with patient in the room to discuss d/c plan. Patient unable to move b/l LE. No sensation to RLE. Does have sesation to LLE. PT/OT recommending SNF, patient agreeable. She would like to go somewhere near her cousin Ursula in [place], [place]. CM assisted patient with changing her address with her [facility] insurance to an [place] address. SW c/s for SNF placement and [facility] assist with [place]. Patient will need a precert. 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 If patient would improve with mobility, she has been accepted to [facility]. CM spoke with Ursula via telephone to update. [employer]: Evelyne Pena, RN Day 6 Comment: 09/15- POD 2. CM spoke with patient at bedside. VSS. WBC 19.9. PT/OT rec SNF. Pt verbalized agreeable for SNF and would like [facility]. SW c/s AND reported that [facility] is not in network with pt insurance. MANOLO spoke w/ pt AND Lamin is now reviewing patient. Pt is awaiting the start of [place] [facility] application with [facility] as current dual insurance is out of state. Pt will also require a precert when medically ready. CM following. [employer]: Dina Abebe Day 8 Comment: 09/15- POD 2. CM spoke with patient at bedside. VSS. WBC 19.9. PT/OT rec SNF. Pt verbalized agreeable for SNF and would like [facility]. SW c/s. Pt will require precert when medically ready. CM following. Day 9 Comment: 09/16- Noted plan changed to dc to [facility] pending bed AND accepting physician. CM contacted [facility] this AM and spoke with Ashish, who explained that they will NOT be able to accept the patient d/t her insurance not in network. CM updated the attending. Attending noted plans to attempt transfer to [facility] AND if denied, to attempt transfer to [facility], per pt preferance. Transfer packet completed. CM following. @12:21- Nurse reported to CM that Dr Holt has declined to take pt, per [facility], AND that a message was relayed to the attending. @14:30- [facility] has assisted pt with completion of [place] GWEN vilma. CM faxing documentation to [facility] AND calling now to verify if they are able to accept pt with that. If unable, CM to fax AND verify / [facility]. If neither hospital is able to accept, attending plans to reach out to [facility]. @15:00- CM spoke with Shelby at [facility]. Shelby reported that she will communicate with her team AND call CM back with a determination. CM to update attending physician. @15:45- CM received cb from Roseline at [facility]. Roseline stated that their neurosurgeon wants Deonte to call them to consider if they would be willing to take the patient, despite [facility] pending status and out of network insurance. CM updated the attending. [employer]: Dina Abebe Comment: 09/17- CM received perfect serve notification from pt's nurse after CM left for the day yesterday at 16:[address] Clemons, the pt has been accepted to [facility] and that the transfer cente (more content not included)... Normal [facility] Interventional Radiology Not malika 09-17-2023 Interventional Radiology Note [facility] Medical Records Patient: GEOVANNY MEJÍA[address] : 1970 [place] [address] Location: [facility] [phone] Unit #: [id number] Interventional Radiology Note Freddy Guevara MD Service Dt/Tm: 09/17/231648 Interventional Radiology Note IR Note: New left retroperitoneal drain placed (12 FR) and removal of existing 8 fr tube (inadvertently retracted since placement). good position on CT and documented aspiration of fluid. Should this tube fail to adequately drain fluid, surgical intervention may be necessary (given persistent collection, reaccumulation) for definitive management. Entered by: Freddy Guevara on 09/17/231648 Report Signed by: Freddy Guevara MD on 09/17/23 399 < > Report Signed by: on Normal [facility] Magnesiumon 09-17-2023 Magnesium [Mass/Vol] 2.2 mg/dL Normal 1.8-2.5 [facility] Comment on above: Performed By: #### L 100.0050 #### Main Laboratory ([facility]) [address] [place] [address] Drew Granger MD Progress Note - Hospitalisto korina 09-17-2023 Progress Note - Hospitalist [facility] Medical Records Patient: GEOVANNY MEJÍA [address] : 1970 [place], [place] [address] Location: [phone] Unit #: [id number] Progress Note - Hospitalist Troy Garber MD Service Dt/Tm: 09/17/23 1714 Assessment/Plan Assessment/Plan (1) Intra-abdominal abscess: Status: Acute Code(s): K65.1 - Peritoneal abscess Plan: This has been the source of patient's bacteremia and distant seeding of the MSSA especially to the thoracic spine leading to the epidural abscess. Scheduled for abscess drainage and tube placement by interventional radiologist. Continue with IV antibiotic, which is being directed by ID consult. Patient remains in-house awaiting transfer to the [facility] whenever bed becomes available. We will continue with aggressive management as outlined. (2) Abscess in epidural space of thoracic spine: Status: Acute Code(s): G06.1 - Intraspinal abscess and granuloma Plan: Patient has finally been accepted at the [facility] upon converting her insurance to the [place] Medicaid. Currently she remains in-house awaiting a bed availability and transport to the [facility] to be assessed by neurosurgery and general surgery consult. Patient will need to have the source of the infection addressed, and as indicated above, another tube is going to be placed and we will continue with IV antibiotic as directed by ID consult. (3) Staphylococcus aureus septicemia: Status: Acute Code(s): A41.01 - Sepsis due to Methicillin susceptible Staphylococcus aureus Plan: Infectious disease consult monitoring and managing antibiotics for the septicemia. (4) HTN (hypertension): Status: Acute Qualifiers: Hypertension type: primary hypertension Qualified Code(s): I10 - Essential (primary) hypertension Code(s): I10 - Essential (primary) hypertension Plan: Continue with home regimen of antihypertensive, however will monitor closely because of the infection for hypotensive episodes. (5) Asthma: Status: Acute Qualifiers: Asthma severity: mild Asthma persistence: intermittent Asthma complication type: uncomplicated Qualified Code(s): J45.20 - Mild intermittent asthma, uncomplicated Code(s): J45.909 - Unspecified asthma, uncomplicated Plan: Home medication regimen as resumed, will continue with supportive management. (6) Normocytic normochromic anemia: Status: Acute Code(s): D64.9 - Anemia, unspecified Plan: Unclear etiology, however in the setting of infection, would want the infection to be brought under control prior to replenishing the iron stores. We will be obtaining anemia work-up. (7) Hyponatremia: Status: Acute Code(s): E87.1 - Hypo-osmolality and hyponatremia Plan: Unclear duration, stable and asymptomatic. Patient will need further work-up. This could be hypovolemia from dehydration. (8) Severe protein-calorie malnutrition: Status: Acute Code(s): E43 - Unspecified severe protein-calorie malnutrition Plan: Patient has albumin of 2.7 and prealbumin of 5 signaling severe protein calorie malnutrition. Patient will therefore need dietary consult to assist in the management since she needs proteins for healing process. (9) Hypocalcemia: Status: Acute Code(s): E83.51 - Hypocalcemia Plan: Patient does have hypocalcemia and previous ionized calcium was low. Patient is being started on vitamin D 5000 international units daily by mouth, and also Os-Riley 500, 1 tablet daily. We will continue to monitor serum calcium closely. (10) Electrolyte imbalance: Status: Acute Code(s): E87.8 - Other disorders of electrolyte and fluid balance, not elsewhere classified Plan: Including but not limited to hypocalcemia, hypokalemia and hypophosphatemia. Electrolyte imbalance is being corrected per protocol and will be repeating labs this p.m. and tomorrow morning. Plan Currently awaiting bed availability for transfer to [facility] for general surgery and neurosurgery evaluation with further recommendations. CT scan of the abdomen and pelvis showing increase in the volume of the retroperitoneal abscess and therefore patient is being scheduled for abscess drainage and tube placement by IR. Continue with empiric IV antibiotic as outlined, will optimize pain control after the CT scan. Current Code Status AND Diet: 09/08/23 13:19 Code Status Routine Resuscitation Status: Full Code Code Status Order Placed: Code Status Ordered 09/08/23 at 1321 09/17/23 17:13 NPO with Meds Only Additional Instructions: NPO with medications only 6 hours prior to exam Discussed Patient's Care With: Nurse, Case Management, Social Work and Physician Subjective Subjective: Patient was seen and examined this morning, she was complaining of abdominal pain and distention. Patient had been scheduled for stat CT abdomen and pelvis with contrast. Patient initially I was told from the CT suite had refused the imagin (more content not included)... Normal [facility] Progress Note - Hospitalist [facility] Medical Records Patient: GEOVANNY MEJÍA. : 1970 [place], [place] [address] Location: [phone] Unit #: [id number] Progress Note - Hospitalist Troy Garber MD Service Dt/Tm: 09/17/23 0855 Assessment/Plan Assessment/Plan (1) Abscess in epidural space of thoracic spine: Status: Acute Code(s): G06.1 - Intraspinal abscess and granuloma Plan: The start MRI that was scheduled around 7:55 in the morning with, was ordered after 7 PM yesterday. Neurosurgery consult had reviewed the MRI results and recommended transfer to a tertiary center. A call was made by the night provider Dr. Elena, to the [facility]. However this morning, we have been told that the patient's insurance is not part of the network, and therefore they cannot accept the patient in transfer to their facility. As indicated above, I discussed with patient at the bedside with her sister on the phone, with the direction to call first the [facility] for the transfer, and if that does not materialize, then a call will be placed to the [facility]. We will continue with IV antibiotic while the patient remains in-house with follow-up by ID consult, and also follow-up by neurosurgery consult. (2) Staphylococcus aureus septicemia: Status: Acute Code(s): A41.01 - Sepsis due to Methicillin susceptible Staphylococcus aureus Plan: Infectious disease consult monitoring and managing antibiotics for the septicemia. (3) Intra-abdominal abscess: Status: Acute Code(s): K65.1 - Peritoneal abscess Plan: Patient has been complaining of pain and distention of the abdomen, drainage is still in place, she has been scheduled for an urgent CT abdomen and pelvis with contrast to assess for the abscess, and to rule out any other etiologies that is compounding her presentation. We will continue with empiric IV antibiotic awaiting the CT scan report. (4) HTN (hypertension): Status: Acute Qualifiers: Hypertension type: primary hypertension Qualified Code(s): I10 - Essential (primary) hypertension Code(s): I10 - Essential (primary) hypertension Plan: Continue with home regimen of antihypertensive, however will monitor closely because of the infection for hypotensive episodes. (5) Asthma: Status: Acute Qualifiers: Asthma complication type: uncomplicated Asthma persistence: intermittent Asthma severity: mild Qualified Code(s): J45.20 - Mild intermittent asthma, uncomplicated Code(s): J45.909 - Unspecified asthma, uncomplicated Plan: Home medication regimen as resumed, will continue with supportive management. (6) Normocytic normochromic anemia: Status: Acute Code(s): D64.9 - Anemia, unspecified Plan: Unclear etiology, however in the setting of infection, would want the infection to be brought under control prior to replenishing the iron stores. We will be obtaining anemia work-up. (7) Hyponatremia: Status: Acute Code(s): E87.1 - Hypo-osmolality and hyponatremia Plan: Unclear duration, stable and asymptomatic. Patient will need further work-up. This could be hypovolemia from dehydration. (8) Severe protein-calorie malnutrition: Status: Acute Code(s): E43 - Unspecified severe protein-calorie malnutrition Plan: Patient has albumin of 2.7 and prealbumin of 5 signaling severe protein calorie malnutrition. Patient will therefore need dietary consult to assist in the management since she needs proteins for healing process. (9) Hypocalcemia: Status: Acute Code(s): E83.51 - Hypocalcemia Plan: Patient does have hypocalcemia and previous ionized calcium was low. Patient is being started on vitamin D 5000 international units daily by mouth, and also Os-Riley 500, 1 tablet daily. We will continue to monitor serum calcium closely. (10) Electrolyte imbalance: Status: Acute Code(s): E87.8 - Other disorders of electrolyte and fluid balance, not elsewhere classified Plan: Including but not limited to hypocalcemia, hypokalemia and hypophosphatemia. Electrolyte imbalance is being corrected per protocol and will be repeating labs this p.m. and tomorrow morning. Plan Currently awaiting bed availability for transfer to [facility] for general surgery and neurosurgery evaluation with further recommendations. We will be following up CT abdomen and pelvis to assess for any further etiologies of worsening abdominal pain and distention. Continue with empiric IV antibiotic as outlined, will optimize pain control after the CT scan. Current Code Status AND Diet: 09/08/23 13:19 Code Status Routine Resuscitation Status: Full Code Code Status Order Placed: Code Status Ordered 09/08/23 at 1321 09/13/23 08:00 Regular Diet Texture: Regular Fluid Restrictions?: No Consult Biomedical Photographer for Oral Supplements/Nourishme nts?: No Oral Supplement 1: Ensure Supplement 1 Frequency: Once/day Oral Supplement 2: Magic Cup Supplement 2 F (more content not included)... Normal [facility] Progress Note Neurosurgeryon 09-17-2023 Progress Note Neurosurgery [facility] Medical Records Patient: GEOVANNY MEJÍA. : 1970 [place], [place] [address] Location: [phone] Unit #: [id number] Progress Note Neurosurgery Jasbir Ann PA-C Service Dt/Tm: 09/16/23 1333 Assessment/Plan (1) Spinal epidural abscess: Status: Acute Plan: Agreeable with current plan. No new recommendations from the neurosurgical service at this time Assessment/Plan (1) Spinal epidural abscess: Plan: Agreeable with current plan. No new recommendations from the neurosurgical service at this time Update of events over the past 24 hours- Discussed case initially with my colleagues and the recommendation was made for her to be transferred secondary to the fact that there has been a reaccumulation of the spinal epidural abscess despite her not regaining neurologic function. It appears that the bony architecture is now involved throughout the thoracic spine and there may also be collections of fluid along the vertebral bodies within the thoracic space. In the course of the process of having the patient excepted, I spoke with the Ortho spine surgeon lockstitch front maker and the transfer center at [facility]. I explained that the patient still has persistent infection which appears to be increasing in nature and has resulted in reaccumulation of fluid ventral to the thecal sac. The issue of a spinal cord infarct was also posed and that can explain her loss of neurologic function and lack of physiologic function based on neuro monitoring during her decompressive surgery. Given the extent of the infectious findings and the need for potential debridement, it may be best for the patient to have this type of complicated surgery performed at a tertiary center. Any type of intervention is more to address the infection than improving her neurologic function in the lower extremities at this time. The patient underwent a recent CT scan of the abdomen and a new drain has been placed secondary to the findings. We will continue with aggressive antibiotic treatment and monitor her upper extremity function since she remains at risk of developing an expanded infection. Subjective GEOVANNY MEJÍA is a 53 yr old F who was admitted on 09/08/23 for INTRA ABDOMINAL ABCESS. S: Patient seen and examined upright in bed. Has continued complaints of lower extremity weakness, sensory rest on the right side greater than left. Reports pain is well controlled. No new complaints or symptoms at this time Objective Hemodynamics: Vital Signs - Last Set Temperature 98.4 F 09/16/23 08:06 Intake and Output Intake Total 3457.19 2745.79 Output Total 3400 2150 Balance 57.19 595.79 Daily Weight: Admitting (IV Pump) Weight 83 kg Actual Weight (Kg) 83 kg O: Spontaneously awake and alert Surgical incisions are clean, dry, intact, no signs of dehiscence Persistent bilateral lower extremity paraplegia; minimal ability to discern light touch locations No clonus or hyperreflexia Continues to experience axial back pain Bilateral upper extremity strength 5/5 No nuchal rigidity or photophobia Results: Laboratory Results - last 24 hr WBC 19.4 H RBC 2.85 L Hgb 8.0 L Hct 24.4 L MCV 85.6 MCH 28.0 MCHC 32.8 L RDW 16.1 H Microbiology 09/11/23 13:40 Blood,Venous - Final 09/11/23 13:40 Blood,Venous Blood Culture - Final Staphylococcus aureus 09/11/23 13:35 Blood,Venous Blood Culture - Final Staphylococcus aureus 09/13/23 05:00 Back Gram Stain - Final 09/13/23 05:00 Back Wound Culture - Preliminary Staphylococcus aureus 09/13/23 16:06 Blood,Venous Blood Culture - Preliminary No growth after 3 days, cultures held 5 days. 09/13/23 15:55 Blood,Venous Blood Culture - Preliminary No growth after 3 days, cultures held 5 days. I have reviewed the diagnostic images from Radiology in the EMR Medications: Current medications reviewed and appropriate changes or recommendations have been made. Entered by: Jasbir Ann PA-C on 09/16/231332 Report Signed by: Jasbir Ann PA-C on 09/16/23 1335 < > Report Signed by: Alce Clemons MD on 09/17/23 1914 < > Normal [facility] Renal Function Panelon 09-17 Albumin [Mass/Vol] 2.4 g/dL Low 3.5-5.0 [facility] Comment on above: Performed By: #### L 100.0050 #### Main Laboratory ([facility]) [address] [place] [address] Drew Granger MD Anion gap [Moles/Vol] 7 mmol/L Normal 4-12 [facility] Comment on above: Performed By: #### L 100.0050 #### Main Laboratory ([facility]) [address] [place] [address] Drew Granger MD Calcium [Mass/Vol] 8.10 mg/dL Low 8.8-10.5 [facility] Comment on above: Performed By: #### L 100.0050 #### Main Laboratory ([facility]) [address] [place] [address] Drew Granger MD Chloride [Moles/Vol] 96 mmol/L Low 101-111 [facility] Comment on above: Performed By: #### L 100.0050 #### Main Laboratory ([facility]) [address] [place] [address] Drew Granger MD CO2 [Moles/Vol] 26 mmol/L Normal 21-32 [facility] Comment on above: Performed By: #### L 100.0050 #### Main Laboratory ([facility]) [address] [place] [address] Drew Granger MD Creatinine [Mass/Vol] 0.47 mg/dL Low 0.60-1.30 [facility] Comment on above: Performed By: #### L 100.0050 #### Main Laboratory ([facility]) [address] [place] [address] Drew Granger MD GFR Calculation > 60 Normal [facility] Comment on above: Result Comment: Plaster Block Layer dontrell Kidney Disease stages by NKDF Stage eGFR I >90 II 60-89 III 30-59 IV 15-29 V <15 or dialysis AGE(years) AVERAGE GFR 50-59 93 ml/min/1.73 square meters Note:This result is normalized to 1.73 square meter body surface area. Height and weight are not factored. Performed By: #### L 100.0050 #### Main Laboratory ([facility]) [address] [place] [address] Drew Granger MD Glucose [Mass/Vol] 107 mg/dL Normal 70-110 [facility] Comment on above: Result Comment: *Thi s reference range applies to fasting specimens only. Performed By: #### L 100.0050 #### Main Laboratory ([facility]) [address] [place] [place] [id number] Drew Granger MD Phosphate [Mass/Vol] 4.5 mg/dL Normal 2.4-4.7 [facility] Comment on above: Performed By: #### L 100.0050 #### Main Laboratory ([facility]) [address] [place] [place] [id number] Drew Granger MD Potassium [Moles/Vol] 4.2 mmol/L Normal 3.6-5.0 [facility] Comment on above: Performed By: #### L 100.0050 #### Main Laboratory ([facility]) [address] [place] [address] Drew Granger MD Sodium [Moles/Vol] 129 mmol/L Low 135-145 [facility] Comment on above: Performed By: #### L 100.0050 #### Main Laboratory ([facility]) [address] [place] [address] Drew Granger MD Urea nitrogen [Mass/Vol] 9 mg/dL Normal 7-20 [facility] Comment on above: Performed By: #### L 100.0050 #### Main Laboratory ([facility]) [address] [place] [address] Drew Granger MD Anisocytosis Auto Ql (Bld)Or dered By: Troy Garber on 09-16-2023 Anisocytosis Ql (Bld) 1+ [facility] Automated blood hypochromia detectionOrdered By: Troy Garber on 09-16-2023 Hypochromia Auto Ql (Bld) 2+ [facility] Blood Cultureon 09-16-2023 Bacteria identified Cx Nom (Bld) Methodology: Multiplex Nucleic Acid Amplification, NAAT (RT-PCR) Enterococcus faecalis Not Detected Enterococcus faecium Not Detected Listeria monocytogenes Not Detected Staphylococcus spp Detected Staphylococcus aureus Detected Staph epidermidis Not Detected Staph lugdunensis Not Detected Streptococcus spp Not Detected Streptococcus agalactiae Not Detected Streptococcus pneumoniae Not Detected Streptococcus pyogenes Not Detected Ac calco/osiel cmplx Not Detected Bacteroides fragilis Not Detected Enterobacterales Not Detected Enterobacter cloacae cplx Not Detected Escherichia coli Not Detected Klebsiella aerogenes Not Detected Klebsiella oxytoca Not Detected Klebsiella pneumoniae Not Detected Proteus spp Not Detected Salmonella spp Not Detected Serratia marcescens Not Detected Haemophilus influenzae Not Detected Neisseria meningitidis Not Detected Pseudomonas aeruginosa Not Detected Stenotroph maltophilia Not Detected Alena albicans Not Detected Alena auris Not Detected Alena glabrata Not Detected Alena krusei Not Detected Alena parapsilosis Not Detected Alena tropicalis Not Detected Crypto neoformans/gattii Not Detected CTX-M Not applicable IMP Not applicable KPC Not applicable mcr-1 Not applicable mecA/C Not applicable mecA/C and MREJ (MRSA) Not Detected NDM Not applicable OXA-48-like Not applicable Lucina/B Not applicable VIM Not applicable called to and read back by DONITA LOMBARDI RN (by MICHELLE at 1646, 09/12/23) Blood culture comments NO GROWTH IN THE ANAEROBIC BOTTLE AFTER 5 DAYS ORGANISM 1: Staphylococcus aureus Growth from the aerobic blood culture bottle For MIKLA results, see culture collected 09/11/23 ([id number]) Normal [facility] Comment on above: Performed By: #### M 140.0200 #### Main Laboratory ([facility]) [address] [id number] Drew Granger MD Bacteria identified Cx Nom (Bld) called to and read back by DONITA LOMBARDI RN (by MICHELLE at 1646, 09/12/23) Blood culture comments NO GROWTH IN THE ANAEROBIC BOTTLE AFTER 5 DAYS ORGANISM 1: Staphylococcus aureus Growth from the aerobic blood culture bottle Staphylococcus aureus: REACTION Clindamycin <=0.25 S Erythromycin <=0.25 S Gentamicin <=0.5 S Linezolid 2 S Moxifloxacin <=0.25 S Levofloxacin <=0.12 S Oxacillin 0.5 S Penicillin >=0.5 R Rifampin <=0.5 S Tetracycline <=1 S Trimethoprim/Sulfamet hoxazole <=10 S Vancomycin <=0.5 S Normal [facility] Comment on above: Performed By: #### M 140.0200 #### Main Laboratory ([facility]) [address] [place] [address] Drew Granger MD Blood erythrocyte morphology identificationOrdered By: Troy Garber on 09-16-2023 RBC morphology finding Nom (Bld) Test not indicated [facility] Blood polychromasia detectio n by light microscopyOrdered By: Troy Garber on 09-16-2023 Polychromasia LM Ql (Bld) Slight [facility] C-Reactive Proteinon 023 C-Reactive Protein 17.1 mg/dL High <1.0 [facility] Comment on above: Performed By: #### L 100.0050 #### Main Laboratory ([facility]) [address] [id number] Drew Granger MD CBC with Differentialon 08-25 Abs Baso Count 200 /cmm Normal 0-200 [facility] Comment on above: Performed By: #### L 150.0000, L100.0000, L100.3600 ####Main Laboratory ([facility])[address], [place] [phone] Nivar, MD Abs Eos Count 100 /cmm Normal 0-500 [facility] Comment on above: Performed By: #### L 150.0000, L100.0000, L100.3600 ####Main Laboratory ([facility])[address], [place] [phone] Nivar, MD Abs Lymph Count 1700 /cmm Normal 4240-7682 [facility] Comment on above: Performed By: #### L 150.0000, L100.0000, L100.3600 ####Main Laboratory ([facility])[address], [place] [phone] Nivar, MD Abs Graham Count 800 /cmm Normal 0-800 [facility] Comment on above: Performed By: #### L 150.0000, L100.0000, L100.3600 ####Main Laboratory ([facility])[address], [place] [phone] Nivar, MD Abs Neut Count 53443 /cmm High 1276-3610 [facility] Comment on above: Performed By: #### L 150.0000, L100.0000, L100.3600 ####Main Laboratory ([facility])[address], [place] [phone] Nivar, MD Anisocytosis Ql (Bld) 1+ Normal [facility] Comment on above: Performed By: #### L 150.0000, L100.0000, L100.3600 ####Main Laboratory ([facility])[address], [place] [phone] Nivar, MD Basophils/100 WBC (Bld) 1.0 % Normal 0-2 [facility] Comment on above: Performed By: #### L 150.0000, L100.0000, L100.3600 ####Main Laboratory ([facility])[address] [phone] Nivar, MD EOS-Auto Diff 0.3 % Normal 0-6 [facility] Comment on above: Performed By: #### L 150.0000, L100.0000, L100.3600 ####Main Laboratory ([facility])[address], [place] [phone] Nivar, MD Hypochromasia 2+ Normal [facility] Comment on above: Performed By: #### L 150.0000, L100.0000, L100.3600 ####Main Laboratory ([facility])[address] [phone] Nivar, MD Lymphocytes/100 WBC (Bld) 8.8 % Low 15-45 [facility] Comment on above: Performed By: #### L 150.0000, L100.0000, L100.3600 ####Main Laboratory ([facility])[address] [place] [phone] Nivar, MD Macrocytosis 1+ Normal [facility] Comment on above: Performed By: #### L 150.0000, L100.0000, L100.3600 ####Main Laboratory ([facility])[address] [phone] Nivar, MD Microcytosis 1+ Normal [facility] Comment on above: Performed By: #### L 150.0000, L100.0000, L100.3600 ####Main Laboratory ([facility])[address] [phone] Nivar, MD Graham- Auto Diff 4.0 % Normal 2-10 [facility] Comment on above: Performed By: #### L 150.0000, L100.0000, L100.3600 ####Main Laboratory ([facility])[address] [phone] Nivar, MD Neut-Auto Diff 85.9 % High 40-70 [facility] Comment on above: Performed By: #### L 150.0000, L100.0000, L100.3600 ####Main Laboratory ([facility])[address] [place] [phone] Nivar, MD NRBC-Auto 0.0 /100 WBC Normal <1 [facility] Comment on above: Performed By: #### L 150.0000, L100.0000, L100.3600 ####Main Laboratory ([facility])[address] [phone] Nivar, MD Erythrocyte distribution width (RBC) [Ratio] 16.1 % High 12.0-16.0 [facility] Comment on above: Performed By: #### L 150.0000, L100.0000, L100.3600 ####Main Laboratory ([facility])[address], [place] [phone] Nivar, MD Hematocrit (Bld) [Volume fraction] 24.4 % Low 35.0-44.0 [facility] Comment on above: Performed By: #### L 150.0000, L100.0000, L100.3600 ####Main Laboratory ([facility])[address] [phone] Nivar, MD Hemoglobin (Bld) [Mass/Vol] 8.0 g/dL Low 12.0-15.0 [facility] Comment on above: Performed By: #### L 150.0000, L100.0000, L100.3600 ####Main Laboratory ([facility])[address], [place] [phone] Nivar, MD MCH (RBC) [Entitic mass] 28.0 pg Normal 27.5-33.0 [facility] Comment on above: Performed By: #### L 150.0000, L100.0000, L100.3600 ####Main Laboratory ([facility])[address] [phone] Nivar, MD MCHC (RBC) [Mass/Vol] 32.8 g/dL Low 33.0-36.0 [facility] Comment on above: Performed By: #### L 150.0000, L100.0000, L100.3600 ####Main Laboratory ([facility])[address] [phone] Nivar, MD MCV 85.6 CU MILKA Normal 80-97 [facility] Comment on above: Performed By: #### L 150.0000, L100.0000, L100.3600 ####Main Laboratory ([facility])[address] [phone] Nivar, MD Platelet Count 576 th/cmm High 150-400 [facility] Comment on above: Performed By: #### L 150.0000, L100.0000, L100.3600 ####Main Laboratory ([facility])[address] [phone] Nivar, MD RBC 2.85 mil/cmm Low 4.00-5.10 [facility] Comment on above: Performed By: #### L 150.0000, L100.0000, L100.3600 ####Main Laboratory ([facility])[address] [phone] Nivar, MD WBC 19.4 th/cmm High 4.4-10.5 [facility] Comment on above: Performed By: #### L 150.0000, L100.0000, L100.3600 ####Main Laboratory ([facility])[address] [phone] Nivar, MD Case Management Daily Noteon 09-16-2023 Case Management Daily Note [facility] Case Management Patient: GEOVANNY MEJÍA [address] : 1970 [place], [place] [address] Location: [phone] [id number] [id number] Case Management Daily Note Dina Abebe Service Date: 09/16/23 Case Mgmt Daily Note - Plan of Care [employer]icer [employer] Agrees with Attending and Consult Plan: Yes - COVID-19 Was Position Statement Letter Delivered?: Yes - Care Coordination Communication Care Coordination Communication: Spoke with patient's family via phone - Hospital Stay Days Day 1 Comment: 09/08 Met with patient in the room. Patient is from [place]. She is up here to visit her sister. Patient reporting she is normally independent. Does not have a PCP. Patient would like to use [facility] for meds. Planning to have her cousin pick her up at d/c. Contact is her cousin Ursula. Denies having LW/dPOA. [employer]: Evelyne Pena, RN Day 2 Comment: 09/09 Met with patient in the room. Patient asking to get up and move around. PT/OT to [facility]. S/p L ABD drain placement. Patient agreeable to [facility] for drain mgmt if needed. Reporting she will be going to [facility] at d/c to stay with her cousin Ursula. CM spoke with patients cousin Ursula via telephone who reports she is ok with [facility] coming to her home if patient would go there at d/c. Ursula reporting patient was homeless in [place] and recently move to [place] with her sister Monique. [employer]: Evelyne Pena, RN Day 3 Comment: 09/10 D/c needs pending medical course. Jr present. 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 PT/OT. ID c/s. Therapy recs for IPR vs OP PT. Will follow to assist with d/c needs. [employer]: Evelyne Pena, RN Day 4 Comment: 09/11 Met with patient in the room who is planning to d/c to her cousin Gena lutz in [place], [place]. Patient is agreeable to [facility]. LENY spoke with Ursula who is agreeable for patient to come there at d/c. Referral sent to [facility]. Await approval. G[employer] CHIEF CREATIVE OFFICER. ABD drain. NPO. ID c/s. PT/OT. [employer]: Evelyne Pena, RN Day 5 Comment: 09/12 Met with patient in the room to discuss d/c plan. Patient unable to move b/l LE. No sensation to RLE. Does have sesation to LLE. PT/OT recommending SNF, patient agreeable. She would like to go somewhere near her cousin Ursula in [place], [place]. CM assisted patient with changing her address with her [facility] insurance to an [place] address. SW c/s for SNF placement and [facility] assist with [place]. Patient will need a precert. 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 If patient would improve with mobility, she has been accepted to [facility]. CM spoke with Ursula via telephone to update. [employer]: Evelyne Pena, RN Day 6 Comment: 09/15- POD 2. CM spoke with patient at bedside. VSS. WBC 19.9. PT/OT rec SNF. Pt verbalized agreeable for SNF and would like [facility]. c/s AND reported that [facility] is not in network with pt insurance. MANOLO spoke w/ pt AND Lamin is now reviewing patient. Pt is awaiting the start of [place] [facility] application with [facility] as current dual insurance is out of state. Pt will also require a precert when medically ready. CM following. [employer]icer [employer]: Dina Abebe Day 8 Comment: 09/15- POD 2. CM spoke with patient at bedside. VSS. WBC 19.9. PT/OT rec SNF. Pt verbalized agreeable for SNF and would like [facility]. MANOLO c/s. Pt will require precert when medically ready. CM following. Day 9 Comment: 09/16- Noted plan changed to dc to [facility] pending bed AND accepting physician. CM contacted [facility] this AM and spoke with Ashish, who explained that they will NOT be able to accept the patient d/t her insurance not in network. CM updated the attending. Attending noted plans to attempt transfer to [facility] AND if denied, to attempt transfer to [facility], per pt preferance. Transfer packet completed. CM following. @12:21- Nurse reported to CM that Dr Holt has declined to take pt, per [facility], AND that a message was relayed to the attending. @14:30- [facility] has assisted pt with completion of [place] GWEN vilma. CM faxing documentation to [facility] AND calling now to verify if they are able to accept pt with that. If unable, CM to fax AND verify / [facility]. If neither hospital is able to accept, attending plans to reach out to [facility]. @15:00- CM spoke with Shelby at [facility]. Shelby reported that she will communicate with her team AND call CM back with a determination. CM to update attending physician. @15:45- CM received cb from Roseline at [facility]. Roseline stated that their neurosurgeon wants [facility] to call them to consider if they would be willing to take the patient, despite [facility] pending status and out of network insurance. CM updated the attending. [employer]: Dina Abebe R - Home Health/IV Infusion/Wound Vac Home Health Referral Indicated: Yes Home Health List Provided: Yes Indication for Home Health: Wound Care, Other Patient's Response: Yes Home Health Agencies: [facility] (more content not included)... Normal [facility] Erythrocyte Sedimentation Ra raquel 09-16-2023 ESR (Bld) [Velocity] 112 mm/h High <=30 [facility] Comment on above: Performed By: #### L 150.0000, L100.0000, L100.3600 ####Main Laboratory ([facility])[address] [place], [place] [phone] Nivar, MD Erythrocyte sedimentation ra teOrdered By: Troy Garber on 09-16-2023 ESR (Bld) [Velocity] 112 mm/h High <30 [facility] Macrocytes Auto Ql (Bld)Orde red By: Troy Garber on 09-16-2023 Macrocytes Ql (Bld) 1+ [facility] Magnesiumon 09-16-2023 Magnesium [Mass/Vol] 2.1 mg/dL Normal 1.8-2.5 [facility] Comment on above: Performed By: #### L 100.0050 #### Main Laboratory ([facility]) [address] [place] [address] Drew Granger MD Microcytes Auto Ql (Bld)Orde red By: Troy Garber on 09-16-2023 Microcytes Ql (Bld) 1+ [facility] Progress Note - Bo hui 09-16-2023 Progress Note - Hospitalist [facility] Medical Records Patient: GEOVANNY MEJÍA [address] 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 Neurosurgery consult had reviewed the MRI results and recommended transfer to a tertiary center. A call was made by the night provider Dr. Elena, to the [facility]. However this morning, we have been told that the patient's insurance is not part of the network, and therefore they cannot accept the patient in transfer to their facility. As indicated above, I discussed with patient at the bedside with her sister on the phone, with the direction to call first the [facility] for the transfer, and if that does not materialize, then a call will be placed to the [facility]. We will continue with IV antibiotic while the patient remains in-house with follow-up by ID consult, and also follow-up by neurosurgery consult. (2) Staphylococcus aureus septicemia: Status: Acute Code(s): A41.01 - Sepsis due to Methicillin susceptible Staphylococcus aureus Plan: Infectious disease consult monitoring and managing antibiotics for the septicemia. (3) Intra-abdominal abscess: Status: Acute Code(s): K65.1 - Peritoneal abscess Plan: Patient has a left-sided retroperitoneal abscess, status post drain placement and repeat CT showing improvement. Continue to monitor closely, with ID consult following and managing. Noted general surgery did sign of the case indicating no surgical intervention currently. Antibiotic management as indicated above. (4) HTN (hypertension): Status: Acute Qualifiers: Hypertension type: primary hypertension Qualified Code(s): I10 - Essential (primary) hypertension Code(s): I10 - Essential (primary) hypertension Plan: Continue with home regimen of antihypertensive, however will monitor closely because of the infection for hypotensive episodes. (5) Asthma: Status: Acute Qualifiers: Asthma severity: mild Asthma persistence: intermittent Asthma complication type: uncomplicated Qualified Code(s): J45.20 - Mild intermittent asthma, uncomplicated Code(s): J45.909 - Unspecified asthma, uncomplicated Plan: Home medication regimen as resumed, will continue with supportive management. (6) Normocytic normochromic anemia: Status: Acute Code(s): D64.9 - Anemia, unspecified Plan: Unclear etiology, however in the setting of infection, would want the infection to be brought under control prior to replenishing the iron stores. We will be obtaining anemia work-up. (7) Hyponatremia: Status: Acute Code(s): E87.1 - Hypo-osmolality and hyponatremia Plan: Unclear duration, stable and asymptomatic. Patient will need further work-up. This could be hypovolemia from dehydration. (8) Severe protein-calorie malnutrition: Status: Acute Code(s): E43 - Unspecified severe protein-calorie malnutrition Plan: Patient has albumin of 2.7 and prealbumin of 5 signaling severe protein calorie malnutrition. Patient will therefore need dietary consult to assist in the management since she needs proteins for healing process. (9) Hypocalcemia: Status: Acute Code(s): E83.51 - Hypocalcemia Plan: Patient does have hypocalcemia and previous ionized calcium was low. Patient is being started on vitamin D 5000 international units daily by mouth, and also Os-Riley 500, 1 tablet daily. We will continue to monitor serum calcium closely. (10) Electrolyte imbalance: Status: Acute Code(s): E87.8 - Other disorders of electrolyte and fluid balance, not elsewhere classified Plan: Including but not limited to hypocalcemia, hypokalemia and hypophosphatemia. Electrolyte imbalance is being corrected per protocol and will be repeating labs this p.m. and tomorrow morning. Plan Recommendations for transfer to especially facility has been made by both neurosurgery and ID consults. Calls initially were made to the [facility] and patient's transfer has been rejected because her insurance is not part of the [facility] network. Discussed with patient and sister and a call has been placed to the [facility], according to their choice, and the third choice being the [facility], if the [place] transfer does not materialize. We will continue with supportive but aggressive management pending the transfer. Current Code Status AND Diet: 09/08/23 13:19 Code Status Routine Resuscitation Status: Full Code Code Status Order Placed: Code Status Ordered 09/08/23 at 1321 09/13/23 08:00 Regular Diet Texture: Regular Fluid Restrictions?: No Consult Biomedical Photographer for Oral Suppleme (more content not included)... Normal [facility] RBC Morphologyon 09-16-2023 Polychromasia Slight Normal [facility] Comment on above: Performed By: #### L 150.0000, L100.0000, L100.3600 ####Main Laboratory ([facility])[address] [phone] Nivar, MD Renal Function Panelon 09-16 Albumin [Mass/Vol] 2.5 g/dL Low 3.5-5.0 [facility] Comment on above: Performed By: #### L 100.0050 #### Main Laboratory ([facility]) [address] [place] [address] Drew Granger MD Anion gap [Moles/Vol] 6 mmol/L Normal 4-12 [facility] Comment on above: Performed By: #### L 100.0050 #### Main Laboratory ([facility]) [address] [place] [address] Drew Granger MD Calcium [Mass/Vol] 8.10 mg/dL Low 8.8-10.5 [facility] Comment on above: Performed By: #### L 100.0050 #### Main Laboratory ([facility]) [address] [place] [address] Drew Granger MD Chloride [Moles/Vol] 96 mmol/L Low 101-111 [facility] Comment on above: Performed By: #### L 100.0050 #### Main Laboratory ([facility]) [address] [place] [address] Drew Granger MD CO2 [Moles/Vol] 26 mmol/L Normal 21-32 [facility] Comment on above: Performed By: #### L 100.0050 #### Main Laboratory ([facility]) [address] [place] [address] Drew Granger MD Creatinine [Mass/Vol] 0.47 mg/dL Low 0.60-1.30 [facility] Comment on above: Performed By: #### L 100.0050 #### Main Laboratory ([facility]) [address] [place] [address] Drew Granger MD GFR Calculation > 60 Normal [facility] Comment on above: Result Comment: Plaster Block Layer dontrell Kidney Disease stages by NKDF Stage eGFR I >90 II 60-89 III 30-59 IV 15-29 V <15 or dialysis AGE(years) AVERAGE GFR 50-59 93 ml/min/1.73 square meters Note:This result is normalized to 1.73 square meter body surface area. Height and weight are not factored. Performed By: #### L 100.0050 #### Main Laboratory ([facility]) [address] [place] [address] Drew Granger MD Glucose [Mass/Vol] 124 mg/dL High 70-110 [facility] Comment on above: Performed By: #### L 100.0050 #### Main Laboratory ([facility]) [address] [facility] Drew Granger MD Phosphate [Mass/Vol] 4.8 mg/dL High 2.4-4.7 [facility] Comment on above: Result Comment: Delt a: 2.6 on 09/15/23011 Performed By: #### L 100.0050 #### Main Laboratory ([facility]) [address] [place] [address] Drew Granger MD Potassium [Moles/Vol] 4.3 mmol/L Normal 3.6-5.0 [facility] Comment on above: Performed By: #### L 100.0050 #### Main Laboratory ([facility]) [address] [place] [address] Drew Granger MD Sodium [Moles/Vol] 128 mmol/L Low 135-145 [facility] Comment on above: Performed By: #### L 100.0050 #### Main Laboratory ([facility]) [address] [place] [address] Drew Granger MD Urea nitrogen [Mass/Vol] 11 mg/dL Normal 7-20 [facility] Comment on above: Performed By: #### L 100.0050 #### Main Laboratory ([facility]) [address] [place] [address] Drew Granger MD Serum or plasma C reactive p rotein measurement (mass/volume)Ordered By: Troy Garber on 09-16-2023 CRP [Mass/Vol] 17.1 mg/dL High <1.0 [facility] Slide Review by Pathologisttheodore n 09-16-2023 Slide Review by Pathologist * Normal [facility] Comment on above: Result Comment: Abso lute granulocytosis consistent with response to infection, toxins, tissue injury, stresses or hemorrhage. Hypochromic, microcytic anemia with high RDW consistent with iron deficiency. Suggest iron studies. Slide reviewed by Dr Krunal BESS on 09/15/23. Performed By: #### L 600.6150 #### Main Laboratory ([facility]) [address] [place] [address] Drew Granger MD Social Work Daily Noteon Social Work Daily Note [facility] Manager [place] Patient: GEOVANNY MEJÍA [address] : 1970 [place], [place] [address] Location: [facility] [phone] Unit #: [id number] Social Work Daily Note Jacqueline Edwards BASEBALL HAND SEWER, SUPERVISOR SOLDERING Service Date: 09/16/23 MANOLO Daily Note - * Psychosocial Assessment * I have reviewed nursing and case management psychosocial information.: Yes - * Care Coordination Communication * Care Coordination Communication: Spoke with patient's family via phone - * COVID-19 * Was Position Statement Letter Delivered?: Yes - * Hospital Stay Days * Day 1 Note: 09/15/23 SW consult for SNF. Pt has recently relocated to the area, living with her cousin. Pt is now in need of SNF placement for rehab. pt is needing to transfer her [facility] medicaid dual plan. SW got a copy of pts card, pt was unable to move much and couldnt sit up, she needed SW assistance to get her insurance card out of her wallet. Nurse LENY Hickey called with pt on Friday to transfer the Medicare portion. The Medicaid portion needs cancelled and re-submitted for [place] Medicaid for pts county she [place] living in. SW made contact with [facility] for assistance and to re-submit pts medicaid vilma. Pt would like a facility near her cousin ursula's house. There are looking at [facility] in [place], and [facility]. SW made contact with [facility] and they are not in network with [facility]. [facility] is in Network. SW follow up with pts cousin via phone as she would like her to help with finding a assisted. Per Ursula there is another facility near her [facility] [place]. SW made contact with [facility] [place], they are in network with [facility], Per there admissions person Emmanuel they would be willing to bring pt in with a pending Medicaid number, per Emmanuel both Medicare and Medicaid would need transfered. Referral sent to [facility] for review. Marisol from [facility] to meet with pt. SW to also meet back to assist with canceling [place] Medicaid if Marisol has not been able to assist pt. Web Design Intern: Jacqueline Edwards, BASEBALL HAND SEWER, SUPERVISOR SOLDERING Day 2 Note: 09/15/23 SW met back with pt, pt was asleep but easily aroused. MANOLO explained to pt that we needed to terminate her [place] Medicaid before submitting an application for [place] Medicaid and this needed to be initiated prior to her Dcing to a SNF. MANOLO called [facility] and had to leave a requesting that they call pt back to so that pt could terminate her [place] Medicaid there and give her new address and county. Web Design Intern: Jacqueline Edwards LSW, MSW Day 3 Note: 09/16/23 Pt transfer pending for another hospital. Referral was sent to two SNFS, Claudine Johnson was able to accept, Lamin was reviewing. Both pt and pt cousin Ursula aware of possible transfer out, but know SNF is still the back up plan, they can also follow back when pt Dcs from other setting and still requires a skilled stay. [facility] initiated a Medicaid application for pt. [place] Application/pending number forward to [facility] if needed for transfer out. Pts cousin Ursula shared with that she heard that pt may have a history of substance abuse and this could be contributing to her current condition. SW unsure of this and encouraged her to speak with physician about this when she is next here visiting with pt. Web Design Intern: Jacqueline Edwards LSW, MSW - * Requested Intvs/Referrals * Research Editor Referrals: SNF/LTAC Placement Web Design Intern I Referrals: Financial Issues/Medicaid Applications - * HEALTHCARE DECISIONS * Living Will: Unknown Durable Power of [place] Insulation Setter for Health Care: Unknown [facility] [place] DNR Comfort Care: Unknown [place] DNR Comfort Care Arrest: Unknown - Home Health/IV Infusion/Wound Vac Home Health Referral Indicated: Yes Home Health List Provided: Yes Indication for Home Health: Wound Care, Other Patient's Response: Yes Home Health Agencies: [facility] Patient given options to view quality scores of facility?: No Entered by: MARY Rodriguez MSW on 09/16/23 1523 Report Signed by: LORNA Ovalle on 09/16/23 1533 < > Report Signed by: on Normal [facility] Status Note/Updateon 023 Status Note/Update [facility] Medical Records Patient: GEOVANNY MEJÍA [address] : 1970 [place], [place] [address] Location: [phone] Unit #: [id number] Status Note/Update Troy Garber MD Service Dt/Tm: 09/16/23 1651 Note: GEOVANNY MEJÍA is a 53 yr old F who was admitted on 09/08/23 for INTRA ABDOMINAL ABCESS. Patient's [place] Medicaid has been approved and her insurance status was updated. This was discussed with the [facility] transfer center by case management. The transfer center had requested Dr. Clemons talk to their neurosurgeon on-call, and Dr. Clemons was notified. Patient has finally been accepted to the [facility] and will be transferred out there whenever bed becomes available. I did discuss with Dr. Clemons. Patient continued to remain on current management pending the transfer. Entered by: Troy Garber MD on 09/16/231650 Report Signed by: Troy Garber MD on 09/16/231652 < > Report Signed by: on Normal [facility] Status Note/Update [facility] Medical Records Patient: GEOVANNY MEJÍA [address] : 1970 [place], [place] [address] Location: [phone] Unit #: [id number] Status Note/Update David Elena MD Service Dt/Tm: 09/15/232044 Note: GEOVANNY MEJÍA is a 53 yr old F who was admitted on 09/08/23 for INTRA ABDOMINAL ABCESS. Transfer process to go to [facility] started. Discussed with patient and also patient's close relative Ursula Echevarria about the transfer to [facility]. They have agreed to be transferred. Spoke to Shabnam transfer nurse at [facility] phone number [phone]. Detailed history was given. She will speak to neurosurgery at [facility] and find a bed for the patient as soon as possible. She will call the floor and do the needful. Discussed with the nurse on the floor. Awaiting a bed at [facility]. Entered by: David Elena on 09/16/23638 Report Signed by: David Elena MD on 09/16/23643 < > Report Signed by: on Normal [facility] C-Reactive Proteinon 023 C-Reactive Protein 11.4 mg/dL High <1.0 [facility] Comment on above: Performed By: #### M 110.0050 #### Main Laboratory ([facility]) [address] [place] [address] Drew Granger MD CBC with Differentialon 10-2 -2022 Abs Baso Count 0 /cmm Normal 0-200 [facility] Comment on above: Performed By: #### L 600.6150 #### Main Laboratory ([facility]) [address] [place], [place] [address] Drew Granger MD Abs Eos Count 0 /cmm Normal 0-500 [facility] Comment on above: Performed By: #### L 600.6150 #### Main Laboratory ([facility]) [address] [place], [place] [address] Drew Granger MD Abs Lymph Count 2000 /cmm Normal 1894-9518 [facility] Comment on above: Performed By: #### L 600.6150 #### Main Laboratory ([facility]) [address] [place], [place] [address] Drew Granger MD Abs Graham Count 700 /cmm Normal 0-800 [facility] Comment on above: Performed By: #### L 600.6150 #### Main Laboratory ([facility]) [address] [place], [place] [address] Drew Granger MD Abs Neut Count 11998 /cmm High 6167-0940 [facility] Comment on above: Performed By: #### L 600.6150 #### Main Laboratory ([facility]) [address] [place], [place] [address] Drew Granger MD Basophils/100 WBC (Bld) 0.0 % Normal 0-2 [facility] Comment on above: Performed By: #### L 600.6150 #### Main Laboratory ([facility]) [address] [place], [place] [address] Drew Granger MD EOS-Auto Diff 0.2 % Normal 0-6 [facility] Comment on above: Performed By: #### L 600.6150 #### Main Laboratory ([facility]) [address] [place] [address] Drew Granger MD Erythrocyte distribution width (RBC) [Ratio] 16.1 % High 12.0-16.0 [facility] Comment on above: Performed By: #### L 600.6150 #### Main Laboratory ([facility]) [address] [place] [address] Drew Granger MD Hematocrit (Bld) [Volume fraction] 27.0 % Low 35.0-44.0 [facility] Comment on above: Performed By: #### L 600.6150 #### Main Laboratory ([facility]) [address] [place] [address] Drew Granger MD Hemoglobin (Bld) [Mass/Vol] 8.9 g/dL Low 12.0-15.0 [facility] Comment on above: Performed By: #### L 600.6150 #### Main Laboratory ([facility]) [address] [place] [address] Drew Granger MD Lymphocytes/100 WBC (Bld) 10.2 % Low 15-45 [facility] Comment on above: Result Comment: Delt a: 2.9 on 09/13/23 Performed By: #### L 600.6150 #### Main Laboratory ([facility]) [address] [place] [address] Drew Granger MD MCH (RBC) [Entitic mass] 28.0 pg Normal 27.5-33.0 [facility] Comment on above: Performed By: #### L 600.6150 #### Main Laboratory ([facility]) [address] [place] [address] Drew Granger MD MCHC (RBC) [Mass/Vol] 32.9 g/dL Low 33.0-36.0 [facility] Comment on above: Performed By: #### L 600.6150 #### Main Laboratory ([facility]) [address] [place] [address] Drew Granger MD MCV 85.2 CU MILKA Normal 80-97 [facility] Comment on above: Performed By: #### L 600.6150 #### Main Laboratory ([facility]) [address] [place], [place] [address] Drew Granger MD Graham- Auto Diff 3.6 % Invalid Interpretation Code 2-10 [facility] Comment on above: Result Comment: Delt a: 1.4 on 09/13/23 Performed By: #### L 600.6150 #### Main Laboratory ([facility]) [address] [place] [address] Drew Granger MD Neut-Auto Diff 86.0 % High 40-70 [facility] Comment on above: Performed By: #### L 600.6150 #### Main Laboratory ([facility]) [address] [place] [address] Drew Granger MD NRBC-Auto 0.0 /100 WBC Normal <1 [facility] Comment on above: Performed By: #### L 600.6150 #### Main Laboratory ([facility]) [address] [place], [place] [address] Drew Granger MD Platelet Count 586 th/cmm High 150-400 [facility] Comment on above: Performed By: #### L 600.6150 #### Main Laboratory ([facility]) [address] [place], [place] [address] Drew Granger MD RBC 3.17 mil/cmm Low 4.00-5.10 [facility] Comment on above: Performed By: #### L 600.6150 #### Main Laboratory ([facility]) [address] [place], [place] [address] Drew Granger MD WBC 19.9 th/cmm High 4.4-10.5 [facility] Comment on above: Performed By: #### L 600.6150 #### Main Laboratory ([facility]) [address] [place] [address] Drew Granger MD Case Management Daily Noteon 09-15-2023 Case Management Daily Note [facility] Case Management Patient: GEOVANNY MEJÍA [address] : 1970 [place], [place] [address] Location: [phone] Unit #: [id number] Case Management Daily Note Dina Abebe Service Date: 09/15/23 Case Mgmt Daily Note - Plan of Care [employer] Agrees with Attending and Consult Plan: Yes - Patient Preferences AND Goals What is the patient's preference?: New SNF Recommended acute discharge goals: New SNF - COVID-19 Was Position Statement Letter Delivered?: Yes - Hospital Stay Days Day 1 Comment: 09/08 Met with patient in the room. Patient is from [place]. She is up here to visit her sister. Patient reporting she is normally independent. Does not have a PCP. Patient would like to use [facility] for meds. Planning to have her cousin pick her up at d/c. Contact is her cousin Ursula. Denies having LW/dPOA. [employer]: Evelyne Pena, RN Day 2 Comment: 09/09 Met with patient in the room. Patient asking to get up and move around. PT/OT to [facility]. S/p L ABD drain placement. Patient agreeable to [facility] for drain mgmt if needed. Reporting she will be going to [facility] at d/c to stay with her cousin Ursula. spoke with patients cousin Ursula via telephone who reports she is ok with [facility] coming to her home if patient would go there at d/c. Ursula reporting patient was homeless in [place] and recently move to [place] with her sister Monique. [employer]: Evelyne Pena, RN Day 3 Comment: 09/10 D/c needs pending medical course. Jr mullen. 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 PT/OT. ID c/s. Therapy recs for IPR vs OP PT. Will follow to assist with d/c needs. [employer]: Evelyne Pena, RN Day 4 Comment: 09/11 Met with patient in the room who is planning to d/c to her cousin Gena lutz in [place], [place]. Patient is agreeable to [facility]. CM spoke with Ursula who is agreeable for patient to come there at d/c. Referral sent to [facility]. Await approval. GLOBAL CHIEF CREATIVE OFFICER. ABD drain. NPO. ID c/s. PT/OT. [employer]: Evelyne Pena, RN Day 5 Comment: 09/12 Met with patient in the room to discuss d/c plan. Patient unable to move b/l LE. No sensation to RLE. Does have sesation to LLE. PT/OT recommending SNF, patient agreeable. She would like to go somewhere near her cousin Ursula in [place], [place]. CM assisted patient with changing her address with her [facility] insurance to an [place] address. SW c/s for SNF placement and [place] assist with [place]. Patient will need a precert. 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 If patient would improve with mobility, she has been accepted to [facility]. CM spoke with Ursula via telephone to update. [employer]: Evelyne Pena, RN Day 6 Comment: 09/15- POD 2. CM spoke with patient at bedside. VSS. WBC 19.9. PT/OT rec SNF. Pt verbalized agreeable for SNF and would like [facility]. c/s AND reported that [facility] is not in network with pt insurance. MANOLO spoke w/ pt AND [facility] is now reviewing patient. Pt is awaiting the start of [place] application with [facility] as current dual insurance is out of state. Pt will also require a precert when medically ready. CM following. [employer]icer [employer]: Dina Abebe R - Home Health/IV Infusion/Wound Vac Home Health Referral Indicated: Yes Home Health List Provided: Yes Indication for Home Health: Wound Care, Other Patient's Response: Yes Home Health Agencies: [facility] Patient given the option to view quality scores of facility?: Yes - Jail Facility SNF List Provided: Yes Jail Facilities: [facility] Patient given the option to view quality scores of facility?: Yes Social Work Consult initiated for SNF: Yes - Transportation Mode of Transportation: Private Vehicle - Respiratory Equipment Does the patient have a nebulizer at home?: No - * L * Length of Stay LOS (Including day of Admission and Discharge): 8 LOS Score: 5 - * C * Comorbidities Select All Conditions that Apply: No Comorbidity Condition Comorbidities Total Score: 0 - * E * Emergency Department Visits # of ER visits,6mos prior to admit,excl this admits ER visit: 0 Enter this number or 4 (whichever is smaller): 0 - LACE SCORE LACE Score: 5 - ANTICIPATED DISCHARGE Anticipated Discharge Date: 09/16/23 Is a ARCHIBALD Form Required?: No Entered by: Dina Abebe on 09/15/23 0914 Report Signed by: Dina Abebe on 09/15/23 1554 < > Co-Signed by: on Normal [facility] Erythrocyte Sedimentation Ra raquel 09-15-2023 ESR (Bld) [Velocity] 116 mm/h High <=30 [facility] Comment on above: Performed By: #### L 600.6150 #### Main Laboratory ([facility]) [address] [place] [address] Drew Granger MD MRI Thoracic Spine w/wo Cont pedro 09-15-2023 MRI Thoracic Spine w/wo Contr [facility] Radiology Department Patient: GEOVANNY MEJÍA [address] : 1970 Sex: [place] [address] Location: [address] [place] [address] [id number] [id number] Ordering Phys: Troy Garber MD Exam Date: 09/15/23 Exam: MRI MRI Thoracic Spine w/wo Contr Result: See Report [id number] STUDY: MRI THORACIC SPINE WITH AND WITHOUT CONTRAST REASON FOR EXAM: Female, 53 years old patient with post-op abscess evacuation. Requested by neurosurgery. TECHNIQUE: 8 ml of IV Gadavist was administered for the contrast portion of the examination. Sagittal and axial T1 and T2 MR images of the thoracic spine were obtained prior to administration of intravenous contrast. COMPARISON: MRI of the thoracic spine dated September 13, 2023. FINDINGS: Normal kyphosis of the thoracic spine. There is no substantial scoliosis. T1-2, T2-3, T3-4, T4-5, T5-6, T6-7, T7-8, T8-9, T9-10, T10-11, T11-12: There is abnormal signal within the marrow at T4, T5, T6, T7, T8, T9 and T10. There is abnormal signal at the discs at T6-7, T8-T9 and T10 and T11. These findings are similar to the previous MRI. There is new abnormal signal within the posterior soft tissues at the T1, T2 and T3 levels. Has the patient had recent surgery in this area since. There appears to be a seroma associated with the posterior elements. Patient also appears to have had a left-sided laminectomy of T3. There is also abnormal paraspinal signal within the left paramedian paraspinal soft tissues at T9-T10 and T11. There may be a seroma present at this level with abnormal T2 hyperintensity and decreased T1 signal. This is also new since the previous MRI. The patient appears to have surgical resection of the left-sided posterior elements at T9 and T10. There is abnormal signal within the paravertebral regions extending from the T4 level through the T10 level that may be associated with the apparent osteomyelitis and multilevel discitis. This could represent residual phlegmon. There is abnormal cord signal within the distal spinal cord and most noticeable at the T10 and T11 level possibly secondary to myelomalacia. The remaining thoracic spinal cord has more normal morphology and signal characteristics. Normal conus medullaris that terminates at the T12-L1 level.. There is abnormal enhancement of the T4, T5, T6, T7, T8, T9, T10 and T11 vertebral segments apparently secondary to known osteomyelitis. There may be some necrosis and/or osteolysis of the T4, and T5 vertebral bodies versus pathologic fractures. There is a right-sided pleural effusion versus atelectasis. There may also be a left-sided pleural effusion. IMPRESSION: 1. Interim development of loculated soft tissue collections and abnormal signal within the upper thoracic and lower thoracic paraspinal soft tissues with postoperative changes. 2. Persistent abnormal signal within most of the thoracic vertebral bodies as described apparent secondary to residual osteomyelitis with persistent prevertebral abnormal soft tissue and signal. 3. Abnormal cord signal within the distal spinal cord. Electronically Signed: Carolin Bhatia MD at 7:39 EDT Reading Location ID and State: [facility] / [place] , Service support , cc: Troy Garber MD; None Dictated by: Carolin Bhatia MD on 09/16/23738 Transcribed by: Carolin Bhatia on 09/16/23738 Report Signed by: Carolin Bhatia MD on 09/16/23738 Normal [facility] Magnesiumon 09-15-2023 Magnesium [Mass/Vol] 2.0 mg/dL Normal 1.8-2.5 [facility] Comment on above: Performed By: #### M 110.0050 #### Main Laboratory ([facility]) [address] [place] [address] Drew Granger MD Potassiumon 09-15-2023 Potassium [Moles/Vol] 4.6 mmol/L Normal 3.6-5.0 [facility] Comment on above: Performed By: #### L 400.1500 ####Main Laboratory ([facility])[address], [place] [phone] Nivar, MD Progress Note - Hospitalisttheodore hui 09-15-2023 Progress Note - Hospitalist [facility] Medical Records Patient: GEOVANNY MEJÍA [address] : 1970 [place], [place] [address] Location: [phone] Unit #: [id number] Progress Note - Hospitalist Troy Garber MD Service Dt/Tm: 09/15/23744 Assessment/Plan Assessment/Plan (1) Abscess in epidural space of thoracic spine: Status: Acute Code(s): G06.1 - Intraspinal abscess and granuloma Plan: Status post hemilaminectomy T4-5 with evacuation of dorsal spinal epidural abscess; hemilaminectomy with transpedicular decompression T10 on the left side with evacuation of ventral spinal epidural abscess. Appreciate input by neurosurgery consult. ID consult following with further antibiotic recommendations. Closely monitor for improvement in the bilateral lower extremity weakness. Scheduled for repeat MRI of the thoracic spine stat, as recommended by neurosurgery consult to evaluate patient for the need for review surgery. Neurosurgery consult following. (2) Staphylococcus aureus septicemia: Status: Acute Code(s): A41.01 - Sepsis due to Methicillin susceptible Staphylococcus aureus Plan: Infectious disease consult monitoring and managing antibiotics for the septicemia. (3) Intra-abdominal abscess: Status: Acute Code(s): K65.1 - Peritoneal abscess Plan: Patient has a left-sided retroperitoneal abscess, status post drain placement and repeat CT showing improvement. Continue to monitor closely, with ID consult following and managing. Patient may benefit from general surgery input eventually. Antibiotic management as indicated above. (4) HTN (hypertension): Status: Acute Qualifiers: Hypertension type: primary hypertension Qualified Code(s): I10 - Essential (primary) hypertension Code(s): I10 - Essential (primary) hypertension Plan: Continue with home regimen of antihypertensive, however will monitor closely because of the infection for hypotensive episodes. (5) Asthma: Status: Acute Qualifiers: Asthma complication type: uncomplicated Asthma persistence: intermittent Asthma severity: mild Qualified Code(s): J45.20 - Mild intermittent asthma, uncomplicated Code(s): J45.909 - Unspecified asthma, uncomplicated Plan: Home medication regimen as resumed, will continue with supportive management. (6) Normocytic normochromic anemia: Status: Acute Code(s): D64.9 - Anemia, unspecified Plan: Unclear etiology, however in the setting of infection, would want the infection to be brought under control prior to replenishing the iron stores. We will be obtaining anemia work-up. (7) Hyponatremia: Status: Acute Code(s): E87.1 - Hypo-osmolality and hyponatremia Plan: Unclear duration, stable and asymptomatic. Patient will need further work-up. This could be hypovolemia from dehydration. (8) Severe protein-calorie malnutrition: Status: Acute Code(s): E43 - Unspecified severe protein-calorie malnutrition Plan: Patient has albumin of 2.7 and prealbumin of 5 signaling severe protein calorie malnutrition. Patient will therefore need dietary consult to assist in the management since she needs proteins for healing process. (9) Hypocalcemia: Status: Acute Code(s): E83.51 - Hypocalcemia Plan: Patient does have hypocalcemia and previous ionized calcium was low. Patient is being started on vitamin D 5000 international units daily by mouth, and also Os-Riley 500, 1 tablet daily. We will continue to monitor serum calcium closely. (10) Electrolyte imbalance: Status: Acute Code(s): E87.8 - Other disorders of electrolyte and fluid balance, not elsewhere classified Plan: Including but not limited to hypocalcemia, hypokalemia and hypophosphatemia. Electrolyte imbalance is being corrected per protocol and will be repeating labs this p.m. and tomorrow morning. Plan Management as outlined, appreciate input by all consultants. Keep patient in-house overnight and monitor closely the bilateral lower extremity weakness for improvement. Frequent turning to prevent decubitus ulcer formation. Awaiting repeat thoracic spine MRI for evaluation by neurosurgery to assess as to whether patient will need review surgery or it is improving. Paraparesis with no improvement and will continue with PT/OT evaluation with recommendations. A.m. labs. Current Code Status AND Diet: 09/08/23 13:19 Code Status Routine Resuscitation Status: Full Code Code Status Order Placed: Code Status Ordered 09/08/23 at 1321 09/13/23 08:00 Regular Diet Texture: Regular Fluid Restrictions?: No Consult Biomedical Photographer for Oral Supplements/Nourishme nts?: No Discussed Patient's Care With: Nurse, Case Management and Physician Subjective Subjective: Patient was seen and examined in the morning, after I was notified by neurosurgeon through the admitting provider phone, to obtain an MRI of the thoracic spine with and without contrast to asses (more content not included)... Normal [facility] Progress Note Neurosurgeryon 09-15-2023 Progress Note Neurosurgery [facility] Medical Records Patient: GEOVANNY MEJÍA [address] : 1970 [place], [place] [address] Location: [phone] Unit #: [id number] Progress Note Neurosurgery Lucy Lara PA-C Service Dt/Tm: 09/15/23 2271 Assessment/Plan (1) Bacteremia: Status: Acute (2) Retroperitoneal abscess: Status: Acute Plan postop day 2 Hemilaminectomy T4-5 with evacuation of dorsal spinal epidural abscess; hemilaminectomy with transpedicular decompression T10 on the left side with evacuation of ventral spinal epidural abscess on 09/13/23 Stat Thoracic MRI ordered. Pending results. We will continue to monitor for any improvement of lower extremity weakness. On heparin for VTE prophylaxis. plan of care discussed with Dr. Clemons who agrees Assessment/Plan (1) Bacteremia: (2) Retroperitoneal abscess: Plan postop day 2 Hemilaminectomy T4-5 with evacuation of dorsal spinal epidural abscess; hemilaminectomy with transpedicular decompression T10 on the left side with evacuation of ventral spinal epidural abscess on 09/13/23 Stat Thoracic MRI ordered. Pending results. We will continue to monitor for any improvement of lower extremity weakness. On heparin for VTE prophylaxis. plan of care discussed with Dr. Clemons who agrees \Patient seen at bedside this evening Persistent bilateral lower extremity paraplegia; minimal ability to discern light touch locations No clonus or hyperreflexia Continues to experience axial back pain Bilateral upper extremity strength 5/5 No nuchal rigidity or photophobia MRI scan performed redemonstrating postsurgical changes and what appears to be a reaccumulation of the ventral spinal epidural abscess within the surgical bed; dorsal spinal epidural abscess appears to be largely evacuated; multiple vertebral bodies appear to be involved at this time; please refer to the official report Assessment/plan Patient's status post hemilaminectomy and evacuation of the initial spinal epidural abscesses with reaccumulation of the T9-T11 fluid collection. Based on that finding and what may be a progression of vertebral body infections I feel it is necessary for the patient to be reassessed by tertiary center. I am concerned that a secondary surgery may also result in reaccumulation of the epidural abscess so long as the primary source is not eradicated. The patient continues on antibiotics and despite the antibiotics has continued to experience progressive infection. Fortunately she does not have signs of meningismus and she is not currently septic. I spoke with both the primary service and the infectious disease service and they concur with my suggestion. Another decompression given her neurologic status and the intraoperative physiologic studies may result in further complication. She may require a multilevel decompression and potentially vertebral body debridement depending on the progression of the infection. We will also be necessary to ensure she does not develop even more proximal infection involving the cervical spine. The patient will continue on DVT prophylaxis, pain management, and be monitored in the upper extremities for any progressive neurologic compromise. Subjective GEOVANNY MEJÍA is a 53 yr old F who was admitted on 09/08/23 for INTRA ABDOMINAL ABCESS. S: Patient postop day 2 Hemilaminectomy T4-5 with evacuation of dorsal spinal epidural abscess; hemilaminectomy with transpedicular decompression T10 on the left side with evacuation of ventral spinal epidural abscess on 09/13/2023. Patient examined lying in bed. She continues to complain about being in pain but less painful than yesterday. WBC up from 18.2 to 19.9. IR placed abdominal abscess drain, purulent fluid draining from abscess on 09/08 for left sided retroperitoneal abscess. Stat thoracic mri ordered. Objective Hemodynamics: Vital Signs - Last Set Temperature 98.7 F 09/15/23 08:03 Intake and Output Intake Total 3547.64 3457.19 1306.38 Output Total 3800 3400 700 Balance -252.36 57.19 606.38 Daily Weight: Admitting (IV Pump) Weight 83 kg Actual Weight (Kg) 83 kg General: Alert, Resting Comfortably and Cooperative HEENT: EOMI Skin: Warm, Dry Extremities: Warm and Dry Neurologic: Grossly Intact (with exception of BLE weakness. 0/4 power BLE) and Sensory deficit (reports to inability to feel lower right extremity. Able to feel left lower extremity) Psychological: Mood AND Affect Normal Results: Laboratory Results - last 24 hr Microbiology 09/13/23 16:06 Blood,Venous Blood Culture - Preliminary No growth after 2 days, cultures held 5 days. 09/13/23 15:55 Blood,Venous Blood Culture - Preliminary No growth after 2 days, cultures held 5 days. 09/13/23 05:00 Back Gram Stain - Final 09/13/23 05:00 Back Wound Culture - Preliminary Staphylococcus aureus I have (more content not included)... Normal [facility] Renal Function Panelon 09-15 Albumin [Mass/Vol] 2.5 g/dL Low 3.5-5.0 [facility] Comment on above: Performed By: #### M 110.0050 #### Main Laboratory ([facility]) [address] [place] [address] Drew Granger MD Anion gap [Moles/Vol] 6 mmol/L Normal 4-12 [facility] Comment on above: Performed By: #### M 110.0050 #### Main Laboratory ([facility]) [address] [place] [address] Drew Granger MD Calcium [Mass/Vol] 8.00 mg/dL Low 8.8-10.5 [facility] Comment on above: Performed By: #### M 110.0050 #### Main Laboratory ([facility]) [address], [facility] Drew Granger MD Chloride [Moles/Vol] 99 mmol/L Low 101-111 [facility] Comment on above: Performed By: #### M 110.0050 #### Main Laboratory ([facility]) [address] [place] [id number] Drew Granger MD CO2 [Moles/Vol] 28 mmol/L Normal 21-32 [facility] Comment on above: Performed By: #### M 110.0050 #### Main Laboratory ([facility]) [address] [place] [address] Drew Granger MD Creatinine [Mass/Vol] 0.55 mg/dL Low 0.60-1.30 [facility] Comment on above: Performed By: #### M 110.0050 #### Main Laboratory ([facility]) [address] [place] [id number] Drew Granger MD GFR Calculation > 60 Normal [facility] Comment on above: Result Comment: [facility] dontrell Kidney Disease stages by NKDF Stage eGFR I >90 II 60-89 III 30-59 IV 15-29 V <15 or dialysis AGE(years) AVERAGE GFR 50-59 93 ml/min/1.73 square meters Note:This result is normalized to 1.73 square meter body surface area. Height and weight are not factored. Performed By: #### M 110.0050 #### Main Laboratory ([facility]) [address] [place] [address] Drew Granger MD Glucose [Mass/Vol] 109 mg/dL Normal 70-110 [facility] Comment on above: Result Comment: *Thi s reference range applies to fasting specimens only. Performed By: #### M 110.0050 #### Main Laboratory ([facility]) [address] [place] [address] Drew Granger MD Phosphate [Mass/Vol] 2.6 mg/dL Normal 2.4-4.7 [facility] Comment on above: Performed By: #### M 110.0050 #### Main Laboratory ([facility]) [address] [place] [facility]04 Drew Granger MD Potassium [Moles/Vol] 4.6 mmol/L Normal 3.6-5.0 [facility] Comment on above: Performed By: #### M 110.0050 #### Main Laboratory ([facility]) [address] [place] [facility]04 Drew Granger MD Sodium [Moles/Vol] 133 mmol/L Low 135-145 [facility] Comment on above: Performed By: #### M 110.0050 #### Main Laboratory ([facility]) [address] [place] [address] Drew Granger MD Urea nitrogen [Mass/Vol] 15 mg/dL Normal 7-20 [facility] Comment on above: Performed By: #### M 110.0050 #### Main Laboratory ([facility]) [address] [place] [facility]04 Drew Granger MD Social Work Daily Noteon Social Work Daily Note [facility] Manager [place] Patient: GEOVANNY MEJÍA [address] : 1970 [place] [address] Location: [phone] Unit #: [id number] Social Work Daily Note Jacqueline Edwards BASEBALL HAND SEWER, SUPERVISOR SOLDERING Service Date: 09/15/23 MANOLO Daily Note - * Psychosocial Assessment * I have reviewed nursing and case management psychosocial information.: Yes - * Care Coordination Communication * Care Coordination Communication: Spoke with patient's family via phone - * COVID-19 * Was Position Statement Letter Delivered?: Yes - * Hospital Stay Days * Day 1 Note: 09/15/23 SW consult for SNF. Pt has recently relocated to the area, living with her cousin. Pt is now in need of SNF placement for rehab. pt is needing to transfer her [facility] medicaid dual plan. SW got a copy of pts card, pt was unable to move much and couldnt sit up, she needed SW assistance to get her insurance card out of her wallet. Nurse LENY Hickey called with pt on Friday to transfer the Medicare portion. The Medicaid portion needs cancelled and re-submitted for [place] Medicaid for pts county she [place] living in. SW made contact with [facility] for assistance and to re-submit pts medicaid vilma. Pt would like a facility near her cousin ursula's house. There are looking at [facility] in [place], and [facility]. SW made contact with [facility] and they are not in network with [facility]. [facility] is in Network. SW follow up with pts cousin via phone as she would like her to help with finding a assisted. Per Ursula there is another facility near her [facility]. SW made contact with [facility], they are in network with [facility], Per there admissions person Emmanuel they would be willing to bring pt in with a pending Medicaid number, per Naun both Medicare and Medicaid would need transfered. Referral sent to [facility] for review. Marisol from [facility] to meet with pt. SW to also meet back to assist with canceling [place] if Marisol has not been able to assist pt. Web Design Intern: Jacqueline Edwards, BASEBALL HAND SEWER, SUPERVISOR SOLDERING Day 2 Note: 09/15/23 MANOLO met back with pt, pt was asleep but easily aroused. MANOLO explained to pt that we needed to terminate her [place] Medicaid before submitting an application for [place] Medicaid and this needed to be initiated prior to her Dcing to a SNF. MANOLO called [place] [employer] and had to leave a requesting that they call pt back to so that pt could terminate her [place] Medicaid there and give her new address and county. Web Design Intern: Jacqueline Edwards LSW, MSW - * Requested Intvs/Referrals * Research Editor Referrals: SNF/LTAC Placement Web Design Intern I Referrals: Financial Issues/Medicaid Applications - * HEALTHCARE DECISIONS * Living Will: Unknown Durable Power of [place] Insulation Setter for Health Care: Unknown [facility] DNR Comfort Care: Unknown [facility] DNR Comfort Care Arrest: Unknown - Home Health/IV Infusion/Wound Vac Home Health Referral Indicated: Yes Home Health List Provided: Yes Indication for Home Health: Wound Care, Other Patient's Response: Yes Home Health Agencies: [facility] Patient given options to view quality scores of facility?: No Entered by: MARY Rodriguez MSW on 09/15/23 1549 Report Signed by: LORNA Ovalle on 09/15/23 1551 < > Report Signed by: on Normal [facility] Social Work Daily Note [facility] Manager [place] Patient: GEOVANNY MEJÍA [address] : 1970 [place], [place] [address] Location: [phone] Unit #: [id number] Social Work Daily Note LORNA Hill Service Date: 09/15/23 Daily Note - * Psychosocial Assessment * I have reviewed nursing and case management psychosocial information.: Yes - * Care Coordination Communication * Care Coordination Communication: Spoke with patient's family via phone - * COVID-19 * Was Position Statement Letter Delivered?: Yes - * Hospital Stay Days * Day 1 Note: 09/15/23 MANOLO consult for SNF. Pt has recently relocated to the area, living with her cousin. Pt is now in need of SNF placement for rehab. pt is needing to transfer her [facility] medicaid dual plan. SW got a copy of pts card, pt was unable to move much and couldnt sit up, she needed assistance to get her insurance card out of her wallet. Nurse LENY Hickey called with pt on Friday to transfer the Medicare portion. The Medicaid portion needs cancelled and re-submitted for [place] Medicaid for pts county she [place] living in. SW made contact with [facility] for assistance and to re-submit pts medicaid vilma. Pt would like a facility near her cousin ursula's house. There are looking at [facility] in [place], and [facility]. SW made contact with [facility] and they are not in network with [facility]. [facility] is in Network. SW follow up with pts cousin via phone as she would like her to help with finding a assisted. Per Ursula there is another facility near her [facility]. SW made contact with [facility], they are in network with [facility], Per there admissions person Emmanuel they would be willing to bring pt in with a pending Medicaid number, per Emmanuel both Medicare and Medicaid would need transfered. Referral sent to [facility] for review. Marisol from [facility] to meet with pt. SW to also meet back to assist with canceling [place] Medicaid if Marisol has not been able to assist pt. Web Design Intern: Jacqueline Edwards LSW, MSW - * Information * Oriented to: Person, Place, Time, Situation Mental Status/Mood: Alert and Oriented, Cooperative - * Requested Intvs/Referrals * Research Editor Referrals: SNF/LTAC Placement Web Design Intern I Referrals: Financial Issues/Medicaid Applications - * HEALTHCARE DECISIONS * Living Will: Unknown Durable Power of [place] Insulation Setter for Health Care: Unknown State [facility] DNR Comfort Care: Unknown [place] DNR Comfort Care Arrest: Unknown - Home Health/IV Infusion/Wound Vac Home Health Referral Indicated: Yes Home Health List Provided: Yes Indication for Home Health: Wound Care, Other Patient's Response: Yes Home Health Agencies: [facility] Patient given options to view quality scores of facility?: No Entered by: MARY Rodriguez MSW on 09/15/23 1405 Report Signed by: LORNA Ovalle on 09/15/23 1421 < > Report Signed by: on Normal [facility] Absolute lymphocyte countOrd ered By: Troy Garber on 09-14-2023 Lymphocytes Auto (Unsp spec) [#/Vol] 2366 /cmm [id number] [facility] Basophils Auto (Bld) [#/Vol] Ordered By: Troy Garber on 09-14-2023 Basophils (Bld) [#/Vol] 0 /cmm 0-200 [facility] Blood absolute eosinophil co untOrdered By: Troy Garber on 09-14-2023 Eosinophils (Bld) [#/Vol] 0 /cmm 0-500 [facility] Blood band neutrophils/100 l eukocytesOrdered By: Troy Garber on 09-14-2023 Band form neutrophils/100 WBC (Bld) 4.0 % 2-6 [facility] Blood monocytes/100 leukocyt esOrdered By: Troy Garber on 09-14-2023 Monocytes/100 WBC (Bld) 2.0 % 2-10 [facility] Blood neutrophils/100 leukoc ytesOrdered By: Troy Garber on 09-14-2023 Neutrophils/100 WBC (Bld) 81.0 % High 40-70 [facility] Blood target cells detection by light microscopyOrdered By: Troy Garber on 09-14-2023 Target cells LM Ql (Bld) Slight [facility] C-Reactive Proteinon 023 C-Reactive Protein 10.9 mg/dL High <1.0 [facility] Comment on above: Performed By: #### L 400.0410 #### Main Laboratory ([facility]) [address] [place] [address] Drew Granger MD CBC with Differentialon 08-25 Erythrocyte distribution width (RBC) [Ratio] 16.2 % High 12.0-16.0 [facility] Comment on above: Performed By: #### L 100.0000, L100.2000, L150.0000 ####Main Laboratory ([facility])[address] [place], [place] [phone] Nivar, MD Hematocrit (Bld) [Volume fraction] 24.1 % Low 35.0-44.0 [facility] Comment on above: Performed By: #### L 100.0000, L100.2000, L150.0000 ####Main Laboratory ([facility])[address] [place], [place] [phone] Nivar, MD Hemoglobin (Bld) [Mass/Vol] 8.0 g/dL Low 12.0-15.0 [facility] Comment on above: Performed By: #### L 100.0000, L100.2000, L150.0000 ####Main Laboratory ([facility])[address], [place] [phone] Nivar, MD MCH (RBC) [Entitic mass] 28.5 pg Normal 27.5-33.0 [facility] Comment on above: Performed By: #### L 100.0000, L100.2000, L150.0000 ####Main Laboratory ([facility])[address], [place] [phone] Nivar, MD MCHC (RBC) [Mass/Vol] 33.3 g/dL Normal 33.0-36.0 [facility] Comment on above: Performed By: #### L 100.0000, L100.2000, L150.0000 ####Main Laboratory ([facility])[address] [phone] Nivar, MD MCV 85.6 CU MILKA Normal 80-97 [facility] Comment on above: Performed By: #### L 100.0000, L100.2000, L150.0000 ####Main Laboratory ([facility])[address] [phone] Nivar, MD Platelet Count 392 th/cmm Normal 150-400 [facility] Comment on above: Performed By: #### L 100.0000, L100.2000, L150.0000 ####Main Laboratory ([facility])[address] [phone] Nivar, MD RBC 2.81 mil/cmm Low 4.00-5.10 [facility] Comment on above: Performed By: #### L 100.0000, L100.2000, L150.0000 ####Main Laboratory ([facility])[address] [phone] Nivar, MD WBC 18.2 th/cmm High 4.4-10.5 [facility] Comment on above: Performed By: #### L 100.0000, L100.2000, L150.0000 ####Main Laboratory ([facility])[address] [phone] Nivar, MD Erythrocyte Sedimentation Ra raquel 09-14-2023 ESR (Bld) [Velocity] 83 mm/h High <=30 [facility] Comment on above: Performed By: #### L 100.0000, L100.1999, L150.0000 ####Main Laboratory ([facility])[address] [place] [phone] Nivar, MD Ionized Calciumon 09-14-2023 Ionized Calcium 1.06 mmol/L Low 1.15-1.29 [facility] Comment on above: Performed By: #### L 100.0050 #### Main Laboratory ([facility]) [address] [place] [address] Drew Granger MD Lymphocytes/100 WBC Manual c nt (Bld)Ordered By: Troy Garber on 09-14-2023 Lymphocytes/100 WBC (Bld) 13.0 % Low 15-45 [facility] Magnesiumon 09-14-2023 Magnesium [Mass/Vol] 2.2 mg/dL Normal 1.8-2.5 [facility] Comment on above: Performed By: #### L 400.0410 #### Main Laboratory ([facility]) [address] [place] [address] Drew Granger MD Manual Diffon 09-14-2023 Abs Baso Count 0 /cmm Normal 0-200 [facility] Comment on above: Performed By: #### L 100.0000, L100.2000, L150.0000 ####Main Laboratory ([facility])[address] [phone] Nivar, MD Abs Eos Count 0 /cmm Normal 0-500 [facility] Comment on above: Performed By: #### L 100.0000, L100.2000, L150.0000 ####Main Laboratory ([facility])[address], [place] [phone] Nivar, MD Abs Lymph Count 2366 /cmm Normal 1661-1091 [facility] Comment on above: Performed By: #### L 100.0000, L100.2000, L150.0000 ####Main Laboratory ([facility])[address], [place] [phone] Nivar, MD Abs Graham Count 364 /cmm Normal 0-800 [facility] Comment on above: Performed By: #### L 100.0000, L100.2000, L150.0000 ####Main Laboratory ([facility])[address], [place] [phone] Nivar, MD Abs Neut Count 62694 /cmm High 8261-0397 [facility] Comment on above: Performed By: #### L 100.0000, L100.1999, L150.0000 ####Main Laboratory ([facility])[address], [place] [phone] Nivar, MD Bands 4.0 % Normal 2-6 [facility] Comment on above: Performed By: #### L 100.0000, L100.2000, L150.0000 ####Main Laboratory ([facility])[address], [place] [phone] Nivar, MD Lymphocytes 13.0 % Low 15-45 [facility] Comment on above: Performed By: #### L 100.0000, L100.2000, L150.0000 ####Main Laboratory ([facility])[address], [place] [phone] Nivar, MD Monocytes 2.0 % Normal 2-10 [facility] Comment on above: Performed By: #### L 100.0000, L100.2000, L150.0000 ####Main Laboratory ([facility])[address], [place] [phone] Nivar, MD Neutrophils 81.0 % High 40-70 [facility] Comment on above: Performed By: #### L 100.0000, L100.2000, L150.0000 ####Main Laboratory ([facility])[address], [place] [phone] Nivar, MD Target Cells Slight Normal [facility] Comment on above: Performed By: #### L 100.0000, L100.2000, L150.0000 ####Main Laboratory ([facility])[address] [phone] Nivar, MD Monocytes Manual cnt (Bld) [ #/Vol]Ordered By: Troy Garber on 09-14-2023 Monocytes (Bld) [#/Vol] 364 /cmm 0-800 [facility] Neutrophils Manual cnt (Bld) [#/Vol]Ordered By: Troy Garber on 09-14-2023 Neutrophils (Bld) [#/Vol] 12808 /cmm High 1176-4638 [facility] No Panel InformationOrdered By: Troy Garber on 09-14-2023 Ionized Calcium 1.06 mmol/L Low 1.15-1.29 [facility] Osmolality of Serum or Plasm aOrdered By: Troy Garber on 09-14-2023 Osmolality [Osmolality] 294 mOsm 270-300 [facility] Osmolality of UrineOrdered B y: Troy Garber on 09-14-2023 Osmolality (U) [Osmolality] 516 mOsm 50-1400 [facility] Comment on above: On average fluid int lynn: 300-900 mOsm/kgAfter 12-h fluid restriction: >850 mOsm/kg Osmolality, Serumon 09-14-20 Osmolality, Serum 294 mOsm Normal 270-300 [facility] Comment on above: Performed By: #### L 400.0059, L400.4800, L404.9000 ####Main Laboratory ([facility])[address], [place] [phone] Nivar, MD Osmolality, Urineon 09-14-20 Osmolality, Urine 516 mOsm Normal 50-1400 [facility] Comment on above: Result Comment: On a verage fluid intake: 300-900 mOsm/kg After 12-h fluid restriction: >850 mOsm/kg Performed By: #### L 400.4900 ####Main Laboratory ([facility])[address], [place] [phone] Nivar, MD Parathyroid Hormone,Intacton 09-14-2023 Parathyroid Hormone,Intact 45.6 U/mL Normal 12.0-88.0 [facility] Comment on above: Performed By: #### L 600.6150 #### Main Laboratory ([facility]) [address] [place] [address] Drew Granger MD Potassiumon 09-14-2023 Potassium [Moles/Vol] 3.2 mmol/L Low 3.6-5.0 [facility] Comment on above: Performed By: #### L 400.1500 #### Main Laboratory ([facility]) [address] [place] [address] Drew Granger MD Progress Note - Hospitalisttheodore 09-14-2023 Progress Note - Hospitalist [facility] Medical Records Patient: GEOVANNY MEJÍA [address] : 1970 [place], [place] [address] Location: [phone] Unit #: [id number] Progress Note - Hospitalist Troy Garber MD Service Dt/Tm: 09/14/2328 Assessment/Plan Assessment/Plan (1) Abscess in epidural space of thoracic spine: Status: Acute Code(s): G06.1 - Intraspinal abscess and granuloma Plan: Status post hemilaminectomy T4-5 with evacuation of dorsal spinal epidural abscess; hemilaminectomy with transpedicular decompression T10 on the left side with evacuation of ventral spinal epidural abscess. Appreciate input by neurosurgery consult. ID consult following with further antibiotic recommendations. Closely monitor for improvement in the bilateral lower extremity weakness. (2) Staphylococcus aureus septicemia: Status: Acute Code(s): A41.01 - Sepsis due to Methicillin susceptible Staphylococcus aureus Plan: Infectious disease consult monitoring and managing antibiotics for the septicemia. (3) Intra-abdominal abscess: Status: Acute Code(s): K65.1 - Peritoneal abscess Plan: Patient has a left-sided retroperitoneal abscess, status post drain placement and repeat CT showing improvement. Continue to monitor closely, with ID consult following and managing. Patient may benefit from general surgery input eventually. Antibiotic management as indicated above. (4) HTN (hypertension): Status: Acute Qualifiers: Hypertension type: primary hypertension Qualified Code(s): I10 - Essential (primary) hypertension Code(s): I10 - Essential (primary) hypertension Plan: Continue with home regimen of antihypertensive, however will monitor closely because of the infection for hypotensive episodes. (5) Asthma: Status: Acute Qualifiers: Asthma complication type: uncomplicated Asthma persistence: intermittent Asthma severity: mild Qualified Code(s): J45.20 - Mild intermittent asthma, uncomplicated Code(s): J45.909 - Unspecified asthma, uncomplicated Plan: Home medication regimen as resumed, will continue with supportive management. (6) Normocytic normochromic anemia: Status: Acute Code(s): D64.9 - Anemia, unspecified Plan: Unclear etiology, however in the setting of infection, would want the infection to be brought under control prior to replenishing the iron stores. We will be obtaining anemia work-up. (7) Hyponatremia: Status: Acute Code(s): E87.1 - Hypo-osmolality and hyponatremia Plan: Unclear duration, stable and asymptomatic. Patient will need further work-up. This could be hypovolemia from dehydration. (8) Severe protein-calorie malnutrition: Status: Acute Code(s): E43 - Unspecified severe protein-calorie malnutrition Plan: Patient has albumin of 2.7 and prealbumin of 5 signaling severe protein calorie malnutrition. Patient will therefore need dietary consult to assist in the management since she needs proteins for healing process. (9) Hypocalcemia: Status: Acute Code(s): E83.51 - Hypocalcemia Plan: Patient does have hypocalcemia and previous ionized calcium was low. This will be replenished accordingly. (10) Electrolyte imbalance: Status: Acute Code(s): E87.8 - Other disorders of electrolyte and fluid balance, not elsewhere classified Plan: Including but not limited to hypocalcemia, hypokalemia and hypophosphatemia. Electrolyte imbalance is being corrected per protocol and will be repeating labs this p.m. and tomorrow morning. Plan Management as outlined, appreciate input by all consultants. Keep patient in-house overnight and monitor closely the bilateral lower extremity weakness for improvement. A.m. labs. Current Code Status AND Diet: 09/08/23 13:19 Code Status Routine Resuscitation Status: Full Code Code Status Order Placed: Code Status Ordered 09/08/23 at 1321 09/13/23 08:00 Regular Diet Texture: Regular Fluid Restrictions?: No Consult Biomedical Photographer for Oral Supplements/Nourishme nts?: No Discussed Patient's Care With: Nurse and Case Management Subjective Subjective: Patient was seen and examined this morning, sitting up in a chair in no apparent distress. Still cannot mobilize her lower extremities, however there is sensation intact especially on the left lower extremity. Pain is markedly improved. She denies any fever or chills. Multiple electrolyte imbalances including hypokalemia, hyponatremia, hypocalcemia and hypophosphatemia. Anemia work-up in progress. Patient Status AND Estimated DC Date Patient Registration Status: Inpatient Objective Constitutional: Last Vital Signs Temp Pulse Resp BP Pulse Ox O2 Flow Rate 97.5 F L 81 16 103/51 L 93 2.0 09/14/23 08:54 09/14/23 08:54 09/14/23 08:55 09/14/23 08:54 09/14/23 08:55 09/14/23 08:54 Intake and Output Intake Total 2288.96 3547.64 Output Total 2750 3800 Balance -461.04 -252.36 (more content not included)... Normal [facility] Progress Note Neurosurgeryon 09-14-2023 Progress Note Neurosurgery [facility] Medical Records Patient: GEOVANNY MEJÍA [address] : 1970 [place], [place] [address] Location: [phone] Unit #: [id number] Progress Note Neurosurgery Lucy Lara PA-C Service Dt/Tm: 09/14/23 1106 Assessment/Plan (1) Bacteremia: Status: Acute (2) Retroperitoneal abscess: Status: Acute Plan postop day 1 Hemilaminectomy T4-5 with evacuation of dorsal spinal epidural abscess; hemilaminectomy with transpedicular decompression T10 on the left side with evacuation of ventral spinal epidural abscess on 09/13/23 Thoracic MRI suggestive of T2-T11 abscess. We will continue to monitor for any improvement of lower extremity weakness. On heparin for VTE prophylaxis. plan of care discussed with Dr. Clemons who agrees Subjective GEOVANNY MEJÍA is a 53 yr old F who was admitted on 09/08/23 for INTRA ABDOMINAL ABCESS. S: Patient postop day 1 Hemilaminectomy T4-5 with evacuation of dorsal spinal epidural abscess; hemilaminectomy with transpedicular decompression T10 on the left side with evacuation of ventral spinal epidural abscess on 09/13/2023. Patient examined while she was lying in bed complaining of pain. States that she is more painful than yesterday and she has not been able to sit up all day. WBC decreasing from 33 to 18.2. IR placed abdominal abscess drain, purulent fluid draining from abscess on 09/08 for left sided retroperitoneal abscess Objective Hemodynamics: Vital Signs - Last Set Temperature 97.5 F L 09/14/23 08:54 Intake and Output Intake Total 2288.96 3547.64 Output Total 2750 3800 Balance -461.04 -252.36 Daily Weight: Admitting (IV Pump) Weight 83 kg Actual Weight (Kg) 83 kg O: Vitals stable General: Alert and Other (Agitated complaining of painful back. Drain intact with purulent drainage) HEENT: EOMI Skin: Warm, Dry Extremities: Warm and Dry Neurologic: Grossly Intact (With exception of 0/4 power of lower extremity. Unable to move lower extremity. Spontaneous movement of upper extremity) Psychological: Agitated Results: Laboratory Results - last 24 hr WBC 18.2 H RBC 2.81 L Hgb 8.0 L Hct 24.1 L MCV 85.6 MCH 28.5 MCHC 33.3 RDW 16.2 H Microbiology 09/11/23 13:35 Blood,Venous Blood Culture - Preliminary Staphylococcus aureus 09/13/23 16:06 Blood,Venous Blood Culture - Preliminary No growth after 1 day, cultures held 5 days. 09/13/23 15:55 Blood,Venous Blood Culture - Preliminary No growth after 1 day, cultures held 5 days. 09/13/23 05:00 Back Gram Stain - Final 09/13/23 05:00 Back Wound Culture - Preliminary Gram positive cocci- clusters 09/11/23 13:40 Blood,Venous - Final 09/11/23 13:40 Blood,Venous Blood Culture - Preliminary Staphylococcus aureus 09/08/23 15:46 Abdominal fluid Gram Stain - Final 09/08/23 15:46 Abdominal fluid Body Fluid Culture - Final Staphylococcus aureus 09/08/23 18:20 Blood,Venous - Final Test not indicated 09/08/23 18:20 Blood,Venous Blood Culture - Final Staphylococcus aureus Staphylococcus epidermidis I have reviewed the diagnostic images from Radiology in the EMR Medications: Current medications reviewed and appropriate changes or recommendations have been made. Entered by: Lucy Lara PA-C on 09/14/23 1106 Report Signed by: Lucy Lara PA-C on 09/14/23 1125 < > Report Signed by: Alec Clemons MD on 09/14/232011 < > Normal [facility] Progress Note Surgicalon Progress Note [facility] Medical Records Patient: GEOVANNY MEJÍA. : 1970 [place], [place] [address] Location: [phone] Unit #: [id number] Progress Note Surgical Justin Encinas ([facility] JODIE Service Dt/Tm: 09/14/23 0725 Patient seen and examined independently by me.??? Below discussed and I agree with the note except where indicated.??? See my additional comments below.??? Labs, cultures, and radiographs where available were reviewed.??? Changes were made in the orders as necessary.??? I discussed patient concerns with the patient's nurse and instructions were given.??? Please see our orders for the updated patient care plan. I was with the PA 100% time for the evaluation, examination and decision making of this patient. Assessment/Plan (1) Back pain: Status: Acute Qualifiers: Back pain laterality: unspecified Back pain location: low back pain Chronicity: acute Sciatica laterality: sciatica of right side Sciatica presence: with sciatica Qualified Code(s): M54.41 - Lumbago with sciatica, right side (2) Sciatica: Status: Acute Qualifiers: Laterality: unspecified laterality Qualified Code(s): M54.30 - Sciatica, unspecified side (3) Retroperitoneal abscess: Status: Acute Plan Hospitalist attending Surgery consulted -for intraabdominal abscess neurosurgery consulted OR 09/13/[address] Clemons for Epidural spinal Abscess drainage WBC Downtrending 18.2 from 33.0 Cares Per primary -BM/-Flatus will continue to monitor pt.'s WBC for resolve before signing off Subjective Date of Service: 09/14/23 Patient Information: GEOVANNY MEJÍA is a 53 yr old F who was admitted on 09/08/23 for INTRA ABDOMINAL ABCESS. Patient expresses concerns: No Patient states: denies Shortness of breath or Chest pain Pain control: Moderately controlled CAM Tool Confusion Assessment Method (CAM Tool) 1. Acute onset and fluctuating course Is there evidence of an acute change in mental status from the patient's baseline?: No Did the (abnormal) behavior fluctuate during the day, that is tend to come and go or increase and decrease in severity?: No 2. Inattention Did the patient have difficulty focusing attention, for example, being easily distractible or having difficulty keeping track of what was being said?: No 3. Disorganized Thinking Was the patient???s thinking disorganized or incoherent, such as rambling or irrelevant conversation, unclear or illogical flow of ideas, or unpredictable switching from subject to subject?: No 4. Altered Level Of Consciousness Would you rate the patient's level of consciousness as Vigilant (hyper alert), Lethargic (drowsy, easily aroused), Stupor (difficult to arouse), OR Coma (unarousable)?: No CAM Score Does the patient have a positive CAM score? (Yes to all questions under number 1 and 2, and Yes to question 3 or 4): No PRISME Did you utilize the PRISME method to identify, rule-out, and treat the possible causation of dementia?: No Objective Vital Signs Last 48 hours: Vital Signs - 48 hr 09/14/23 04:50 16 93 Vital Signs (Last Set): Vital Signs - Last Set Temperature 97.6 F 09/14/23 03:15 Patient is: Afebrile Intake/Output totals: Intake AND Output Intake Total 1281.69 1115.45 I/O: Equals output General Appearance: Positive Alert, Resting Comfortably and Cooperative; Negative Acute Distress HEENT: Positive Normal Inspection and EOMI Skin: Positive Color Normal and Warm, Dry Neck: Positive Normal Inspection Cardiovascular: Positive Regular Rate and Rhythm Lungs: Negative Respiratory Distress or Adventitial Sounds Abdomen: Positive Soft and Tender to palpation (mildly); Negative BM or Flatus Extremities: Positive Activity as expected; Negative Swelling or Edema Neurologic: Positive Grossly Intact, Moves all extremities and A AND O x3 Psychological: Positive Mood AND Affect Normal Lab Results: 09/14/23 05:23 Images available, please contact [facility] Medical Records 09/14/23 05:23 Images available, please contact [facility] Medical RecordsLaboratory Results - last 24 hr WBC RBC Hgb Hct MCV MCH MCHC RDW Plt Count Neut % (Auto) Lymph % (Auto) Graham % (Auto) Eos % (Auto) WBC RBC Hgb Hct MCV MCH MCHC RDW Plt Count Neut % (Auto) Lymph % (Auto) Graham % (Auto) WBC RBC Hgb Hct MCV MCH MCHC RDW Plt Count Neut % (Auto) Lymph % (Auto) Graham % (Auto) WBC 33.0 H RBC 3.01 L Hgb 8.5 L Hct 25.8 L MCV 85.6 MCH 28.2 MCHC 32.9 L RDW 16.1 H Plt Count 289 Neut % (Auto) 95.6 H Lymph % (Auto) 2.9 L Microbiology 09/11/23 13:35 Blood,Venous Blood Culture - Preliminary Staphylococcus aureus 09/13/23 05:00 Back Gram Stain - Final 09/11/23 13:40 Blood,Venous - Final 09/11/23 13:40 Blood,Venous Blood Cultu (more content not included)... Normal [facility] Renal Function Panelon 09-14 Albumin [Mass/Vol] 2.6 g/dL Low 3.5-5.0 [facility] Comment on above: Performed By: #### L 400.0410 #### Main Laboratory ([facility]) [address] [place], [place] [address] Drew Granger MD Anion gap [Moles/Vol] 7 mmol/L Normal 4-12 [facility] Comment on above: Performed By: #### L 400.0410 #### Main Laboratory ([facility]) [address] [place] [address] Drew Granger MD Calcium [Mass/Vol] 7.30 mg/dL Low 8.8-10.5 [facility] Comment on above: Performed By: #### L 400.0410 #### Main Laboratory ([facility]) [address] [place] [address] Drew Granger MD Chloride [Moles/Vol] 96 mmol/L Low 101-111 [facility] Comment on above: Performed By: #### L 400.0410 #### Main Laboratory ([facility]) [address] [place] [address] Drew Granger MD CO2 [Moles/Vol] 31 mmol/L Normal 21-32 [facility] Comment on above: Performed By: #### L 400.0410 #### Main Laboratory ([facility]) [address] [place] [address] Drew Granger MD Creatinine [Mass/Vol] 0.68 mg/dL Normal 0.60-1.30 [facility] Comment on above: Performed By: #### L 400.0410 #### Main Laboratory ([facility]) [address] [place] [address] Drew Granger MD GFR Calculation > 60 Normal [facility] Comment on above: Result Comment: Plaster Block Layer dontrell Kidney Disease stages by NKDF Stage eGFR I >90 II 60-89 III 30-59 IV 15-29 V <15 or dialysis AGE(years) AVERAGE GFR 50-59 93 ml/min/1.73 square meters Note:This result is normalized to 1.73 square meter body surface area. Height and weight are not factored. Performed By: #### L 400.0410 #### Main Laboratory ([facility]) [address] [place] [address] Drew Granger MD Glucose [Mass/Vol] 111 mg/dL High 70-110 [facility] Comment on above: Performed By: #### L 400.0410 #### Main Laboratory ([facility]) [address] [place] [address] Drew Granger MD Phosphate [Mass/Vol] 3.4 mg/dL Invalid Interpretation Code 2.4-4.7 [facility] Comment on above: Result Comment: Delt a: 2.2 on 09/14/23 Performed By: #### L 400.0410 #### Main Laboratory ([facility]) [address] [place] [facility] Drew Granger MD Potassium [Moles/Vol] 2.8 mmol/L Low 3.6-5.0 [facility] Comment on above: Performed By: #### L 400.0410 #### Main Laboratory ([facility]) [address] [place] [address] Drew Granger MD Sodium [Moles/Vol] 134 mmol/L Low 135-145 [facility] Comment on above: Performed By: #### L 400.0410 #### Main Laboratory ([facility]) [address] [place] [facility]04 Drew Granger MD Urea nitrogen [Mass/Vol] 17 mg/dL Normal 7-20 [facility] Comment on above: Performed By: #### L 400.0410 #### Main Laboratory ([facility]) [address] [place] [facility]04 Drew Granger MD Albumin [Mass/Vol] 2.3 g/dL Low 3.5-5.0 [facility] Comment on above: Performed By: #### L 400.0410 #### Main Laboratory ([facility]) [address] [place] [address] Drew Granger MD Anion gap [Moles/Vol] 7 mmol/L Normal 4-12 [facility] Comment on above: Performed By: #### L 400.0410 #### Main Laboratory ([facility]) [address] [place] [address] Drew Granger MD Calcium [Mass/Vol] 7.20 mg/dL Low 8.8-10.5 [facility] Comment on above: Performed By: #### L 400.0410 #### Main Laboratory ([facility]) [address] [place] [address] Drew Granger MD Chloride [Moles/Vol] 98 mmol/L Low 101-111 [facility] Comment on above: Performed By: #### L 400.0410 #### Main Laboratory ([facility]) [address] [place] [address] Drew Granger MD CO2 [Moles/Vol] 27 mmol/L Normal 21-32 [facility] Comment on above: Performed By: #### L 400.0410 #### Main Laboratory ([facility]) [address] [place] [address] Drew Granger MD Creatinine [Mass/Vol] 0.57 mg/dL Low 0.60-1.30 [facility] Comment on above: Performed By: #### L 400.0410 #### Main Laboratory ([facility]) [address] [place] [address] Drew Granger MD GFR Calculation > 60 Normal [facility] Comment on above: Result Comment: Plaster Block Layer dontrell Kidney Disease stages by NKDF Stage eGFR I >90 II 60-89 III 30-59 IV 15-29 V <15 or dialysis AGE(years) AVERAGE GFR 50-59 93 ml/min/1.73 square meters Note:This result is normalized to 1.73 square meter body surface area. Height and weight are not factored. Performed By: #### L 400.0410 #### Main Laboratory ([facility]) [address] [place] [address] Drew Granger MD Glucose [Mass/Vol] 146 mg/dL High 70-110 [facility] Comment on above: Performed By: #### L 400.0410 #### Main Laboratory ([facility]) [address] [place] [address] Drew Granger MD Phosphate [Mass/Vol] 2.2 mg/dL Low 2.4-4.7 [facility] Comment on above: Result Comment: Delt a: 4.5 on 09/13/23 Performed By: #### L 400.0410 #### Main Laboratory ([facility]) [facility] [place] [address] Drew Granger MD Potassium [Moles/Vol] 3.1 mmol/L Low 3.6-5.0 [facility] Comment on above: Performed By: #### L 400.0410 #### Main Laboratory ([facility]) [facility] [place] [address] Drew Granger MD Sodium [Moles/Vol] 132 mmol/L Low 135-145 [facility] Comment on above: Performed By: #### L 400.0410 #### Main Laboratory ([facility]) [address] [place] [address] Drew Granger MD Urea nitrogen [Mass/Vol] 17 mg/dL Normal 7-20 [facility] Comment on above: Performed By: #### L 400.0410 #### Main Laboratory ([facility]) [facility] [place] [address] Drew Granger MD Serum or plasma folate measu rement (mass/volume)Ordered By: Troy Garber on 09-14-2023 Folate [Mass/Vol] 10.5 ng/mL >5.9 [facility] Serum or plasma intact parat hyroid hormone (iPTH) measurement (mass/volume)Ordered By: Troy Garber on 09-14-2023 Parathyrin.intact [Mass/Vol] 45.6 U/mL 12.0-88.0 [facility] Serum or plasma total combin ed vitamin D and metabolites measurement (mass/volume)Ordered By: Troy Garber on 09-14-2023 Vitamin D+Metabolites [Mass/Vol] 14.30 ng/mL Low 30.00-100.00 [facility] Comment on above: Optimal values are e stablished by the Clinical Guidelines Subcommittee of the Endocrine Society Task Force. (Journal of Clinical Endocrinology & Metabolism,2011;96)Status Vitamin D Concentration Range------- Deficient <20Insufficient 20 - 30Sufficient 30 - 100 Serum or plasma vitamin B12 measurement (mass/volume)Ordered By: Troy Garber on 09-14-2023 Cobalamin (Vitamin B12) [Mass/Vol] 883 pg/mL 180-914 [facility] Comment on above: B12 level of 145 - 1 80 is considered Indeterminate and level of <145 is considered Deficient. Vitamin B12 and Folateon Cobalamin (Vitamin B12) [Mass/Vol] 883 pg/mL Normal 180-914 [facility] Comment on above: Result Comment: B12 level of 145 - 180 is considered Indeterminate and level of <145 is considered Deficient. Performed By: #### L 400.0059, L400.4800, L404.9000 ####Main Laboratory ([facility])[address] [place], [place] [phone] Nivar, MD Folate (Folic Acid) 10.5 ng/mL Normal >5.9 [facility] Comment on above: Performed By: #### L 400.0059, L400.4800, L404.9000 ####Main Laboratory ([facility])[address] [place], [place] [phone] Nivar, MD Vitamin D,25-hydroxy (Total) on 09-14-2023 25(OH) Vitamin D,Total 14.30 ng/mL Low 30.00-100.00 [facility] Comment on above: Result Comment: Opti mal values are established by the Clinical Guidelines Subcommittee of the Endocrine Society Task Force. (Journal of Clinical Endocrinology & Metabolism,2011;96) Status Vitamin D Concentration Range ------- Deficient <20 Insufficient 20 - 30 Sufficient 30 - 100 Performed By: #### L 400.0065 ####Main Laboratory ([facility])[address], [place] [phone] Nivar, MD Anesthesia Pre-Op Evaluation on 09-13-2023 Anesthesia Pre-Op Evaluation [facility] Medical Records Patient: GEOVANNY MEJÍA [address] : 1970 [place], [place] [address] Location: [phone] Unit #: [id number] Anesthesia Pre-Op Evaluation [facility] Service Dt/Tm: 09/13/23226 GEOVANNY MEJÍA is a 53 yr old F. Height (Ft AND In): 5 ft 4 in Actual Weight (Kg): 83 kg Body Mass Index (BMI): 31.4 NPO Since: food 2 days ago, sips of water today Pre Op Diagnosis: THORACIC ABCESS Scheduled Procedure: Operation Date: 09/13/23 03:00 Proposed Procedures p Thoracic Laminectomy T9-T11(Not Applicable) - Alec Clemons MD Alcohol Amount: Socially/Occasionally Opiod/Substance/Drug Use: None Smoking Status: Former smoker Type of Tobacco: Cigarettes Smoking Amount: < 1 pack per day Anesthesia History: Past General Anesthetic Without Complications PONV Risk Score: Female and Opiods PONV Risk Score: 2 PONV Prevention-Combinatio n Therapy Utilized: Yes - Active Medications: Active Medications Acetaminophen (Acetaminophen 325 Mg Tab) 650 mg PO Q6HPRN PRN PRN Reason: Pain,Mild Or Fever >101.0 F Stop: 12/16/23 13:20 Diphenhydramine HCl (Diphenhydramine Hcl 25 Mg Cap) 25 mg PO QHSPRN PRN PRN Reason: insomnia Stop: 12/16/23 13:20 Last Admin: 09/11/23 21:51 Dose: 25 mg Docusate Sodium (Docusate Sodium 100 Mg Cap) 100 mg PO BIDPRN PRN PRN Reason: Constipation Stop: 12/16/23 13:20 Electrolyte Protocol (Phosphorus Replacement Protocol) 1 ea MD DIRECTED PRN; Protocol PRN Reason: SEE COMMENTS BELOW Stop: 12/16/23 13:20 Electrolyte Protocol (Calcium Replacement Protocol) 1 ea MD DIRECTED PRN; Protocol PRN Reason: SEE COMMENTS BELOW Stop: 12/16/23 13:20 Electrolyte Protocol (Magnesium Replacement Protocol 1 Ea Ea) 1 catrina MD DIRECTED PRN; Protocol PRN Reason: SEE COMMENTS BELOW Stop: 12/16/23 13:20 Electrolyte Protocol (Potassium Replacement Protocol 1 Ea Ea) 1 catrina MD DIRECTED PRN; Protocol PRN Reason: SEE COMMENTS BELOW Stop: 12/16/23 13:20 Furosemide (Furosemide 40 Mg/4 Ml Vial) 40 mg IV PUSH DAILY [facility] Stop: 12/20/23 09:01 Last Admin: 09/12/23 09:55 Dose: 40 mg Heparin Sodium (Porcine) (Heparin Na(Porcine) 5,000 Units/Ml Vial) 5,000 units SC Q8H [facility] Stop: 12/17/23 14:01 Last Admin: 09/12/23 21:27 Dose: 5,000 units Hydromorphone HCl (Hydromorphone Hcl 1 Mg/Ml Amp) 0.5 mg IV PUSH Q4HPRN PRN PRN Reason: breakthrough pain Stop: 12/17/23 02:31 Last Admin: 09/09/23 06:41 Dose: 0.5 mg Hydromorphone HCl (Hydromorphone 6 Mg/30 Ml High Lift Operator.Syring) 6 mg IV GLOBAL CHIEF CREATIVE OFFICER DIRECTED [facility] Stop: 12/17/23 11:31 Last Admin: 09/12/23 21:47 Dose: 6 mg Cefazolin Sodium (Kefzol Premix) 2 gm in 100 mls @ 200 mls/hr IVPB Q8H [facility] Stop: 09/17/23 14:01 Last Admin: 10/20/23 22:25 Dose: 200 mls/hr Vancomycin HCl 1,000 mg/ (Sodium Chloride) 250 mls @ 166.667 mls/hr IVPB Q12H [facility] Stop: 09/20/23 05:01 Sodium Chloride (Ns) 1,000 mls @ 0 mls/hr IV DIRECTED [facility] Stop: 12/20/23 22:31 Last Admin: 09/12/23 22:43 Dose: 20 mls/hr Lactobacillus Rhamnosus (Lactobacillus Rhamnosus (Gg) 1 Ea Cap) 1 ea PO DAILY [facility] Stop: 10/09/23 09:01 Last Admin: 09/12/23 09:55 Dose: 1 ea Melatonin (Melatonin 3 Mg Tab) 3 mg PO [id number] PRN PRN Reason: insomnia Stop: 12/16/23 13:20 Last Admin: 09/08/23 20:41 Dose: 3 mg Non-Formulary Medication (Pharmacy Communication 1 Ea Ea) 1 catrina MEJÍA .[address] TO PL[address] [facility] Stop: 12/17/23 11:31 Non-Formulary Medication (Vancomycin Pha To Dose 1 Ea Ea) 1 catrina MEJÍA PHA TO DOSE [facility] Stop: 10/12/23 17:01 Ondansetron HCl (Ondansetron 4 Mg/2 Ml Vial) 4 mg IV PUSH Q6HPRN PRN PRN Reason: Nausea and Vomiting Stop: 12/16/23 13:20 Polyethylene Glycol (Polyethylene Glycol 17 Gm Pkg) 17 gm PO DAILYPRN PRN PRN Reason: Constipation Stop: 12/16/23 13:20 Sodium Chloride (Sodium Chloride 0.9% 10 Ml Syr (Flush)) 5 ml FLUSH BID [facility] Stop: 12/18/23 21:01 Last Admin: 09/12/23 21:20 Dose: 5 ml Allergies/Adverse Reactions No Known Drug Allergies Allergy (Verified 09/08/23 09:58) Home Medications No Home Meds 09/09/23 [Confirmed 09/09/23] Past Medical History Medical History (Updated 09/13/23 @ 02:34 by Chante Martínez CRNA) HTN (hypertension) Cardiovascular: Mets >4 and Denies Chest Pain Pulmonary: Denies Shortness of Breath and Denies Dyspnea Upon Exertion Past Surgical History Surgical History (Updated 09/13/23 @ 02:34 by Chante Martínez CRNA) Intra-abdominal abscess DRAINED Social History Alcohol Amount: Socially/Occasionally Street Drugs: None Smoking Status: Former smoker Type of Tobacco: Cigarettes Smoking Amount: < 1 pack per day Smoking Stop Date: 09/05/23 Family History Denies family history of No pertinent family history Vital Signs - Last Set Temperature 101.4 F H 09/13/23 01:39 Pulse Rate 103 H 09/13/23 01:39 CBC/BM (more content not included)... Normal [facility] Atherectomy of brachiocephal ic arteryOrdered By: Troy Garber on 09-13-2023 Atherectomy of brachiocephalic artery * [facility] Comment on above: Absolute granulocyto sis consistent with response toinfection, toxins, tissue injury, stresses or hemorrhage.Hypochromic, microcytic anemia with high RDWconsistent with iron deficiency. Suggest iron studies.Slide reviewed by Dr Krunal BESS on 09/15/23. Bacteria identified Cx Nom ( Wound)Ordered By: Alec Clemons on 09-13-2023 Wound Culture Staphylococcus aureus Abnormal [facility] Bacterial blood cultureOrder ed By: Jaret Ramírez (ID) on 09-13-2023 Bacteria identified Cx Nom (Bld) No growth after 5 days. [facility] Bacteria identified Cx Nom (Bld) No growth after 5 days. [facility] Basic Metabolic,Non-Fastingo n 09-13-2023 Anion gap [Moles/Vol] 8 mmol/L Normal 4-12 [facility] Comment on above: Performed By: #### L 400.0152, L400.5100 ####Main Laboratory ([facility])[address], [place] [phone] Nivar, MD Calcium [Mass/Vol] 7.60 mg/dL Low 8.8-10.5 [facility] Comment on above: Performed By: #### L 400.0152, L400.5100 ####Main Laboratory ([facility])[address], [place] [phone] Nivar, MD Chloride [Moles/Vol] 95 mmol/L Low 101-111 [facility] Comment on above: Performed By: #### L 400.0152, L400.5100 ####Main Laboratory ([facility])[address] [place] [phone] Nivar, MD CO2 [Moles/Vol] 26 mmol/L Normal 21-32 [facility] Comment on above: Performed By: #### L 400.0152, L400.5100 ####Main Laboratory ([facility])[address] [place] [phone] Nivar, MD Creatinine [Mass/Vol] 0.74 mg/dL Normal 0.60-1.30 [facility] Comment on above: Performed By: #### L 400.0152, L400.5100 ####Main Laboratory ([facility])[address] [place] [phone] Nivar, MD GFR Calculation > 60 Normal [facility] Comment on above: Result Comment: Plaster Block Layer dontrell Kidney Disease stages by NKDF Stage eGFR I >90 II 60-89 III 30-59 IV 15-29 V <15 or dialysis AGE(years) AVERAGE GFR 50-59 93 ml/min/1.73 square meters Note:This result is normalized to 1.73 square meter body surface area. Height and weight are not factored. Performed By: #### L 400.0152, L400.5100 ####Main Laboratory ([facility])[address] [place] [phone] Nivar, MD Glucose [Mass/Vol] 189 mg/dL High 70-110 [facility] Comment on above: Performed By: #### L 400.0152, L400.5100 ####Main Laboratory ([facility])[address] [place] [phone] Nivar, MD Potassium [Moles/Vol] 3.8 mmol/L Normal 3.6-5.0 [facility] Comment on above: Performed By: #### L 400.0152, L400.5100 ####Main Laboratory ([facility])[address] [place] [phone] Nivar, MD Sodium [Moles/Vol] 129 mmol/L Low 135-145 [facility] Comment on above: Performed By: #### L 400.0152, L400.5100 ####Main Laboratory ([facility])[address] [place], [place] [phone] Nivar, MD Urea nitrogen [Mass/Vol] 21 mg/dL High 7-20 [facility] Comment on above: Performed By: #### L 400.0152, L400.5100 ####Main Laboratory ([facility])[address] [place] [phone] Nivar, MD Body fluid cult/smr aer/anao n 09-13-2023 Body fluid cult/smr aer/roseline Gram stain result Many Segmented WBC's seen Many Nonsegmented WBC's seen Many Gram positive cocci in clusters ORGANISM 1: Staphylococcus aureus Amount of growth Many Comments No growth of anaerobes Staphylococcus aureus: REACTION Clindamycin <=0.25 S Erythromycin <=0.25 S Gentamicin <=0.5 S Linezolid 1 S Moxifloxacin <=0.25 S Levofloxacin <=0.12 S Oxacillin <=0.25 S Penicillin >=0.5 R Rifampin <=0.5 S Tetracycline <=1 S Trimethoprim/Sulfamet hoxazole <=10 S Vancomycin <=0.5 S Normal [facility] Comment on above: Performed By: #### M 140.0200 #### Main Laboratory ([facility]) [address] [place] [address] Drew Granger MD C-Reactive Proteinon 09-13- 023 C-Reactive Protein 15.9 mg/dL High <1.0 [facility] Comment on above: Performed By: #### M 110.0050 #### Main Laboratory ([facility]) [address] [place], [place] [address] Drew Granger MD CBC with Differentialon 10-2 -2022 Abs Baso Count 0 /cmm Normal 0-200 [facility] Comment on above: Performed By: #### L 100.1999, L100.0000 #### Main Laboratory ([facility]) [address] [place], [facility]04 Drew Granger MD Abs Eos Count 0 /cmm Normal 0-500 [facility] Comment on above: Performed By: #### L 100.1999, L100.0000 #### Main Laboratory ([facility]) [address] [place], [place] [address] Drew Granger MD Abs Lymph Count 1000 /cmm Normal 1657-3140 [facility] Comment on above: Performed By: #### L 100.1999, L100.0000 #### Main Laboratory ([facility]) [address] [place], [place] [address] Drew Granger MD Abs Graham Count 500 /cmm Normal 0-800 [facility] Comment on above: Performed By: #### L 100.1999, L100.0000 #### Main Laboratory ([facility]) [address] [place], [facility]04 Drew Granger MD Abs Neut Count 43346 /cmm High 0387-7479 [facility] Comment on above: Performed By: #### L 100.1999, L100.0000 #### Main Laboratory ([facility]) [address] [place], [place] [address] Drew Granger MD Basophils/100 WBC (Bld) 0.1 % Normal 0-2 [facility] Comment on above: Performed By: #### L 100.1999, L100.0000 #### Main Laboratory ([facility]) [address] [place], [place] [address] Drew Granger MD EOS-Auto Diff 0.0 % Normal 0-6 [facility] Comment on above: Performed By: #### L , L100.0000 #### Main Laboratory ([facility]) [address] [place], [facility]04 Drew Granger MD Lymphocytes/100 WBC (Bld) 2.9 % Low 15-45 [facility] Comment on above: Performed By: #### L , L100.0000 #### Main Laboratory ([facility]) [address] [place], [facility]04 Drew Granger MD Graham- Auto Diff 1.4 % Low 2-10 [facility] Comment on above: Performed By: #### L , L100.0000 #### Main Laboratory ([facility]) [address] [place], [facility]04 Drew Granger MD Neut-Auto Diff 95.6 % High 40-70 [facility] Comment on above: Performed By: #### L , L100.0000 #### Main Laboratory ([facility]) [address] [place], [place] [address] Drew Granger MD NRBC-Auto 0.0 /100 WBC Normal <1 [facility] Comment on above: Performed By: #### L , L100.0000 #### Main Laboratory ([facility]) [address] [place], [place] [address] Drew Granger MD Erythrocyte distribution width (RBC) [Ratio] 16.1 % High 12.0-16.0 [facility] Comment on above: Performed By: #### L , L100.0000 #### Main Laboratory ([facility]) [address] [place], [facility]04 Drew Granger MD Hematocrit (Bld) [Volume fraction] 25.8 % Low 35.0-44.0 [facility] Comment on above: Performed By: #### L , L100.0000 #### Main Laboratory ([facility]) [address] [place], [place] [address] Drew Granger MD Hemoglobin (Bld) [Mass/Vol] 8.5 g/dL Low 12.0-15.0 [facility] Comment on above: Performed By: #### L , L100.0000 #### Main Laboratory ([facility]) [address] [place], [place] [address] Drew Granger MD MCH (RBC) [Entitic mass] 28.2 pg Normal 27.5-33.0 [facility] Comment on above: Performed By: #### L , L100.0000 #### Main Laboratory ([facility]) [address] [place] [address] Drew Granger MD MCHC (RBC) [Mass/Vol] 32.9 g/dL Low 33.0-36.0 [facility] Comment on above: Performed By: #### L , L100.0000 #### Main Laboratory ([facility]) [address] [place], [place] [address] Drew Granger MD MCV 85.6 CU MILKA Normal 80-97 [facility] Comment on above: Performed By: #### L , L100.0000 #### Main Laboratory ([facility]) [address] [place] [address] Drew Granger MD Platelet Count 289 th/cmm Normal 150-400 [facility] Comment on above: Performed By: #### L , L100.0000 #### Main Laboratory ([facility]) [address] [place] [address] Drew Granger MD RBC 3.01 mil/cmm Low 4.00-5.10 [facility] Comment on above: Performed By: #### L , L100.0000 #### Main Laboratory ([facility]) [address] [place] [facility]04 Drew Granger MD WBC 33.0 th/cmm High 4.4-10.5 [facility] Comment on above: Performed By: #### L 100.2000, L100.0000 #### Main Laboratory ([facility]) [address] [place], [place] [address] Drew Granger MD Erythrocyte Sedimentation Ra raquel 09-13-2023 ESR (Bld) [Velocity] 98 mm/h High <=30 [facility] Comment on above: Performed By: #### L 600.6150 #### Main Laboratory ([facility]) [address] [place] [address] Drew Granger MD Gram stain microscopyOrdered By: Alec Clemons on 09-13-2023 Microscopic observation Gram stain Nom (Unsp spec) [facility] MRI Thoracic Spine w/o Contr ason 09-13-2023 MRI Thoracic Spine w/o Contras [facility] Radiology Department Patient: GEOVANNY MEJÍA [address] : 1970 Sex: [place] [address] Location: [phone] [id number] Ordering Phys: Alec Clemons MD Exam Date: 09/13/23 Exam: MRI MRI Thoracic Spine w/o Contras Result: See Report ADDENDUM: ADDENDUM [id number] On review of the images, there appear to be currently enhanced T1 images. Initial dictation and current information in Connect suggests no enhanced images were provided. Header also states MRI of thoracic spine WITHOUT IV contrast It is unclear whether the enhanced images were present for the initial interpretation. The enhanced images reveal extensive enhancement of the epidural space surrounding most of the thoracic spinal cord. This presumably represents additional epidural abscess. There is also abnormal enhancement of the T4, T5, T6, T7, T8, T9 and T10 vertebral bodies with what appears to be apparent osteolysis involving the T4, T5, T6 and T9 vertebral bodies probably secondary to osteomyelitis and diskitis. There appear to be loculated collections within the paraspinal soft tissues adjacent to the T1, T2 and T3 spinous processes. There may be a second loculated paraspinal collection adjacent to the T8, T9-T10 and T11 vertebral bodies. Electronically Signed: Carolin Bhatia MD at 0:36 EDT , Addendum Dictated by: Carolin Bhatia MD on 09/25/23 at 0036 Transcribed by: Carolin Bhatia on 09/25/23 at 0036 Report Signed by: Carolin Bhatia MD on 09/25/23 0036 [id number] STUDY: MRI THORACIC SPINE WITHOUT CONTRAST REASON FOR EXAM: Female, 53 years old patient with abscess at T10 through T12. TECHNIQUE: Standardized fat and water weighted pulse sequences were obtained in the sagittal and axial planes. Per Dr. Clemons. Patient did not need contrast again because had lumbar with and without hours prior COMPARISON: MRI of the lumbar spine dated September 12, 2023. FINDINGS: Normal kyphosis of the thoracic spine. There is no substantial scoliosis. T1-2, T2-3, T3-4, T4-5, T5-6, T6-7, T7-8, T8-9, T9-10, T10-11, T11-12: There is mildly increased thoracic kyphosis. There is narrowing of the disks at T2-3, T3-4, T4-5, T5-6 and T6-7. There is also narrowing at T9-10 disc level. There appears to be decreased T1 signal within most of the imaged thoracic vertebral bodies. There is persistent epidural collection posterior to T9, T10 and T11. The epidural collection causes moderate compression of the thecal sac and probable compression of distal spinal cord. Normal visualized thoracic cord. Normal conus medullaris that terminates at the T12 level. A large amount of abnormal paravertebral soft tissue signal is adjacent to all of the thoracic vertebral bodies. It is possible this is secondary to phlegmon related to discitis and osteomyelitis. This is more extensive than is typical. The neural foramina are generally patent without definite neural impingement of the neural foramina. IMPRESSION: 1. Unchanged appearance to epidural collection posterior to T9, T10 and T11 as previous MRI. There is suggestion of compression of the thoracic spinal cord at this level. 2. Diffuse abnormal signal of the marrow may be secondary to reactivated hematopoietic marrow or neoplastic process. 3. Extensive abnormal paravertebral signal may represent phlegmon. This appears to involve almost the entirety of the thoracic spine from approximately T2 to T11. 4. Multiple images are limited by patient motion. Electronically Signed: Carolin Bhatia MD at 4:40 EDT Reading Location ID and State: [facility] / [place] , Service support , cc: Alec Clemons MD; None Dictated by: Carolin Bhatia MD on 09/13/23439 Transcribed by: Carolin Bhatia on 09/13/23439 Report Signed by: Carolin Bhatia MD on 09/13/23439 Normal [facility] Magnesiumon 09-13-2023 Magnesium [Mass/Vol] 2.3 mg/dL Normal 1.8-2.5 [facility] Comment on above: Performed By: #### M 110.0050 #### Main Laboratory ([facility]) [address] [place] [address] Drew Granger MD Magnesium [Mass/Vol] 2.3 mg/dL Normal 1.8-2.5 [facility] Comment on above: Performed By: #### L 400.0152, L400.5100 ####Main Laboratory ([facility])[address], [place] [phone] Nivar, MD No Panel InformationOrdered By: Jaret Ramírez (ID) on 09-13-2023 Test not indicated [facility] Test not indicated [facility] Operative Reporton Operative Report [facility] Medical Records Patient: GEOVANNY MEJÍA [address] : 1970 [place], [place] [address] Location: [phone] Unit #: [id number] Operative Report Alec Clemons MD Operative Report DATE OF OPERATION: 09/13/23 PRE-OPERATIVE DIAGNOSES: Spinal epidural abscess POST-OPERATIVE DIAGNOSES: Thoracic spinal epidural abscess OPERATION PERFORMED: Hemilaminectomy T4-5 with evacuation of dorsal spinal epidural abscess; hemilaminectomy with transpedicular decompression T10 on the left side with evacuation of ventral spinal epidural abscess SURGEON: Alec Clemons MD FIELD CAPTAIN: Lucy Lara PA-C; she participated in all reyes elements of the surgery with my direct supervision FINDINGS: Purulent fluid both ventrally and dorsally within the thoracic spine TYPE OF ANESTHESIA: General endotracheal ESTIMATED BLOOD LOSS: Less than 50 cc SPECIMEN: Abscess culture COMPLICATIONS: No overt complications IV FLUIDS/MEDICATIONS GIVEN: Approximately 2-1/2 L DISPOSITION AFTER OPERATION: Remains at baseline neurologic status with bilateral lower extremity paraparesis DESCRIPTION OF PROCEDURE: Patient was brought in the operating room and anesthesia was induced. A consent was obtained but I declare this an emergency procedure due to the fact that she has accumulating purulent material within the spinal canal in addition to neurologic decline. Antibiotics were initially held until cultures were obtained and then she was given Ancef IV. Once the patient was placed in the prone position on the open Stephen table and all pressure points padded appropriately. Her back was prepped and draped from approximately C7-S1. An official timeout was performed verifying the patient, type of surgery, and levels of surgery, this was verified by reviewing the MRI scan and after localizing the levels with spinal needles and fluoroscopy. Once satisfactory identification of the levels was performed, the skin and soft tissue was carefully opened exposing the underlying spinous process of approximately T10. Attention was returned to the dissection where the remaining paraspinous muscles were dissected free from the underlying bony architecture. The cerebellar and Gelpi retractors were utilized for exposure. The area was irrigated copiously. With a high-speed drill a laminotomy was performed at T10 and 11 on the left side. The [id number]-[id number]-[id number] technique was utilized to decompress the ventral component of the thecal sac. The pedicle of T10 was then used as a guide it was cored out centrally until the ventral component of the thecal sac could be identified. Once that was completed the anatomy appeared to be displaced dorsally secondary to the mass effect of the purulent material. Using upgoing downgoing curettes the membranes containing the purulence were opened and the fluid was gradually evacuated. The area was then irrigated copiously and reinspected and felt to be adequately decompressed. Attention was then turned to the for where another skin incision was performed on the left side of this spinous process. The paraspinous muscles were dissected away exposing the underlying lamina. A laminotomy and then a laminectomy was performed on the left side allowing for exposure of the thecal sac. The posterior lateral dura was exposed further and once the downgoing curettes were placed a large amount of purulent material spontaneously drained. The area was irrigated ventrally and rostrally using a pediatric feeding tube. Once there was no longer return of purulent material hemostasis was achieved and the wound then closed in successive layers with 3-0 Vicryl suture and Dermabond. The original T10 incision was also irrigated copiously and infiltrated with Exparel and closed with 3-0 Vicryl suture and Dermabond. At the end of the case sponge, needle, instrument count was correct. Throughout the entirety of the case there were very scant sensory is noted in the left lower extremity and no motor signals were able to be obtained pre or post decompression. cc: Alec Clemons MD; None Dictated by: Alec Clemons MD on 09/13/23 150 Entered by: Alec Clemons MD on 09/13/23 1504 Report Signed by: Alec Clemons MD on 09/13/23 1511 < > Report Signed by: on [facility] Platelet poor plasma interna tional normalized ratio (INR)Ordered By: Alec Clemons on 09-13-2023 INR Coag (PPP) [Relative time] 1.59 {INR} High 0.9-1.2 [facility] Comment on above: Standard dose INR: 2 .0-3.0High dose INR: 2.5-3.5 Prealbuminon 09-13-2023 Prealbumin [Mass/Vol] 5.0 mg/dL Low 16.0-38.0 [facility] Comment on above: Performed By: #### M 110.0050 #### Main Laboratory ([facility]) [address] [place] [address] Drew Granger MD Procalcitoninon 09-13-2023 Procalcitonin 0.74 ng/mL High [facility] Comment on above: Result Comment: Susp ected Sepsis (Continue Antibiotic therapy if patient is clinically unstable) 0.10 - 0.49 ng/mL - Low likelihood of sepsis/ antibiotics discouraged 0.50 - 1.00 ng/mL - Increased likelihood of sepsis/ antibiotics encouraged >1.00 ng/mL - High Risk of sepsis/ antibiotics strongly encouraged Suspected Lower Respiratory Tract Infections (LRTI): 0.10 - 0.24 ng/mL - Low likelihood of bacterial infection/ antibiotics discouraged 0.25 - 0.49 ng/mL - Increased likelihood of bacterial infection/antibiotics encouraged >0.50 ng/mL - High risk of bacterial infection/ antibiotics strongly encouraged Levels 0.50 - 2.00 ng/mL should be interpreted in the clinical context of the patient as a variety of non-infectious conditions such as ha, trauma, surgery and severe cardiogenic shock can cause procalcitonin elevations. *Selin et al., Lancet 2010;375: DOI:10.1016/V1003-4393829-7908 [phone] *Will Kapadia al., [employer] In[employer] Med 2011;171:1718-8854 Performed By: #### M 110.0050 #### Main Laboratory ([facility]) [address] [place] [address] Drew Granger MD Progress Note - Bo hui 09-13-2023 Progress Note - Hospitalist [facility] Medical Records Patient: GEOVANNY MEJÍA [address] : 1970 [place], [place] [address] Location: [phone] Unit #: [id number] Progress Note - Hospitalist Troy Garber MD Service Dt/Tm: 09/13/23 0800 Assessment/Plan Assessment/Plan (1) Abscess in epidural space of thoracic spine: Status: Acute Code(s): G06.1 - Intraspinal abscess and granuloma Plan: Status post hemilaminectomy T4-5 with evacuation of dorsal spinal epidural abscess; hemilaminectomy with transpedicular decompression T10 on the left side with evacuation of ventral spinal epidural abscess. Appreciate input by neurosurgery consult. ID consult following with further antibiotic recommendations. Closely monitor for improvement in the bilateral lower extremity weakness. (2) Staphylococcus aureus septicemia: Status: Acute Code(s): A41.01 - Sepsis due to Methicillin susceptible Staphylococcus aureus Plan: Infectious disease consult monitoring and managing antibiotics for the septicemia. (3) Intra-abdominal abscess: Status: Acute Code(s): K65.1 - Peritoneal abscess Plan: Patient has a left-sided retroperitoneal abscess, status post drain placement and repeat CT showing improvement. Continue to monitor closely, with ID consult following and managing. Patient may benefit from general surgery input eventually. Antibiotic management as indicated above. (4) HTN (hypertension): Status: Acute Qualifiers: Hypertension type: primary hypertension Qualified Code(s): I10 - Essential (primary) hypertension Code(s): I10 - Essential (primary) hypertension Plan: Continue with home regimen of antihypertensive, however will monitor closely because of the infection for hypotensive episodes. (5) Asthma: Status: Acute Qualifiers: Asthma severity: mild Asthma persistence: intermittent Asthma complication type: uncomplicated Qualified Code(s): J45.20 - Mild intermittent asthma, uncomplicated Code(s): J45.909 - Unspecified asthma, uncomplicated Plan: Home medication regimen as resumed, will continue with supportive management. (6) Normocytic normochromic anemia: Status: Acute Code(s): D64.9 - Anemia, unspecified Plan: Unclear etiology, however in the setting of infection, would want the infection to be brought under control prior to replenishing the iron stores. We will be obtaining anemia work-up. (7) Hyponatremia: Status: Acute Code(s): E87.1 - Hypo-osmolality and hyponatremia Plan: Unclear duration, stable and asymptomatic. Patient will need further work-up. This could be hypovolemia from dehydration. (8) Severe protein-calorie malnutrition: Status: Acute Code(s): E43 - Unspecified severe protein-calorie malnutrition Plan: Patient has albumin of 2.7 and prealbumin of 5 signaling severe protein calorie malnutrition. Patient will therefore need dietary consult to assist in the management since she needs proteins for healing process. (9) Hypocalcemia: Status: Acute Code(s): E83.51 - Hypocalcemia Plan: Patient does have hypocalcemia and previous ionized calcium was low. This will be replenished accordingly. Plan Management as outlined, appreciate input by all consultants. Keep patient in-house overnight and monitor closely the bilateral lower extremity weakness for improvement. A.m. labs. Current Code Status AND Diet: 09/08/23 13:19 Code Status Routine Resuscitation Status: Full Code Code Status Order Placed: Code Status Ordered 09/08/23 at 1321 09/13/23 08:00 Regular Diet Texture: Regular Fluid Restrictions?: No Consult Biomedical Photographer for Oral Supplements/Nourishme nts?: No Discussed Patient's Care With: Nurse and Case Management Subjective Subjective: Patient was seen and examined this morning after surgery. She was being managed for an intra-abdominal abscess with drain in place and antibiotic. However patient had complained of back pain and was found to have a thoracic spine epidural abscess. She is currently status post drainage by neurosurgeon and patient remained stable. She denied any pain, fever or chills when seen and examined. She still cannot move the lower extremities but that is being closely monitored. Appreciate input by neurosurgery consult. Patient Status AND Estimated DC Date Patient Registration Status: Inpatient Objective Constitutional: Last Vital Signs Temp Pulse Resp BP Pulse Ox O2 Flow Rate 101.4 F H 103 H 18 120/71 94 2.0 09/13/23 01:39 09/13/23 01:39 09/12/23 19:53 09/12/23 19:53 09/13/23 01:39 09/12/23 21:30 Intake and Output Intake Total 2724.62 2288.96 Output Total 2200 2750 150 Balance 524.62 -461.04 -150 Admitting (IV Pump) Weight 83 kg Actual Weight (Kg) 83 kg General Appearance: Alert, Resting Comfortably and Cooperative; No Acute Distress Eyes: PERRLA and EOMI ENT: Normal Inspection, Pharynx Normal (more content not included)... Normal [facility] Progress Note Surgicalon Progress Note [facility] Medical Records Patient: GEOVANNY MEJÍA [address] : 1970 [place], [place] [address] Location: [facility] [phone] Unit #: [id number] Progress Note Surgical Justin Encinas ([facility] [place] PA-C Service Dt/Tm: 09/13/23 1030 Patient seen and examined independently by me.??? Below discussed and I agree with the note except where indicated.??? See my additional comments below.??? Labs, cultures, and radiographs where available were reviewed.??? Changes were made in the orders as necessary.??? I discussed patient concerns with the patient's nurse and instructions were given.??? Please see our orders for the updated patient care plan. I was with the PA 100% time for the evaluation, examination and decision making of this patient. Assessment/Plan (1) Back pain: Status: Acute Qualifiers: Back pain laterality: unspecified Back pain location: low back pain Chronicity: acute Sciatica laterality: sciatica of right side Sciatica presence: with sciatica Qualified Code(s): M54.41 - Lumbago with sciatica, right side (2) Sciatica: Status: Acute Qualifiers: Laterality: unspecified laterality Qualified Code(s): M54.30 - Sciatica, unspecified side (3) Retroperitoneal abscess: Status: Acute Plan Hospitalist attending Surgery consulted neurosurgery consulkted OR this AM with Dr. Clemons for Epidural spinal Abscess WBC trending up, however CT scan shows continued improvement of intraabdominal abscess Will allow medicine/ID to manage WBC No surgical intervention needed for infection control Regular diet -flatus/-BM Will continue to follow Subjective Date of Service: 09/13/23 Patient Information: GEOVANNY MEJÍA is a 53 yr old F who was admitted on 09/08/23 for INTRA ABDOMINAL ABCESS. Patient expresses concerns: No Patient states: denies Shortness of breath or Chest pain Pain control: Moderately controlled CAM Tool Confusion Assessment Method (CAM Tool) 1. Acute onset and fluctuating course Is there evidence of an acute change in mental status from the patient's baseline?: No Did the (abnormal) behavior fluctuate during the day, that is tend to come and go or increase and decrease in severity?: No 2. Inattention Did the patient have difficulty focusing attention, for example, being easily distractible or having difficulty keeping track of what was being said?: No 3. Disorganized Thinking Was the patient???s thinking disorganized or incoherent, such as rambling or irrelevant conversation, unclear or illogical flow of ideas, or unpredictable switching from subject to subject?: No 4. Altered Level Of Consciousness Would you rate the patient's level of consciousness as Vigilant (hyper alert), Lethargic (drowsy, easily aroused), Stupor (difficult to arouse), OR Coma (unarousable)?: No CAM Score Does the patient have a positive CAM score? (Yes to all questions under number 1 and 2, and Yes to question 3 or 4): No Objective Vital Signs Last 48 hours: Vital Signs - 48 hr 09/13/23 07:15 81 24 H 95 09/13/23 09:23 4.0 Vital Signs (Last Set): Vital Signs - Last Set Temperature 97.7 F 09/13/23 09:20 Patient is: Afebrile Intake/Output totals: Intake AND Output I/O: Equals output General Appearance: Positive Alert, Resting Comfortably and Cooperative; Negative Acute Distress HEENT: Positive Normal Inspection and EOMI Skin: Positive Color Normal and Warm, Dry Neck: Positive Normal Inspection Cardiovascular: Positive Regular Rate and Rhythm Lungs: Negative Respiratory Distress or Adventitial Sounds Abdomen: Positive Soft and Tender to palpation (mildly); Negative BM or Flatus Extremities: Positive Activity as expected and Warm and Dry; Negative Swelling Neurologic: Positive Grossly Intact, Moves all extremities and A AND O x3 Psychological: Positive Mood AND Affect Normal Lab Results: 09/13/23 08:51 Images available, please contact [facility] Medical Records 09/13/23 08:51 Images available, please contact [facility] Medical RecordsLaboratory Results - last 24 hr WBC RBC Hgb Hct MCV MCH WBC RBC WBC WBC 33.0 H RBC 3.01 L Hgb 8.5 L Hct 25.8 L MCV 85.6 MCH 28.2 MCHC 32.9 L RDW 16.1 H Plt Count 289 Neut % (Auto) 95.6 H WBC RBC Hgb Hct Microbiology 09/11/23 13:35 Blood,Venous Blood Culture - Preliminary Staphylococcus aureus 09/11/23 13:40 Blood,Venous - Final 09/11/23 13:40 Blood,Venous Blood Culture - Preliminary Staphylococcus aureus 09/08/23 15:46 Abdominal fluid Gram Stain - Final 09/08/23 15:46 Abdominal fluid Body Fluid Culture - Final Staphylococcus aureus 09/08/23 18:20 Blood,Venous - Final Test not indicated 09/08/23 18:20 Blood,Venous Blood Culture - Final Staphylococcus aureus Staphylococcus epidermidis Entered by: Justin Moreno (more content not included)... Normal [facility] Prothrombin Timeon INR Coag (PPP) [Relative time] 1.59 {INR} High 0.9-1.2 [facility] Comment on above: Result Comment: Petr dard dose INR: 2.0-3.0 High dose INR: 2.5-3.5 Performed By: #### L 200.0200 ####[facility] ([facility])[address] [place] [phone] Nivar, MD PT Coag (PPP) [Time] 18.5 s High 9.6-13.3 [facility] Comment on above: Performed By: #### L 200.0200 ####[facility] ([facility])[address] [place] [phone] Nivar, MD Prothrombin time (PT) in dylan telet poor plasma by coagulation assayOrdered By: Alec Clemons on 09-13-2023 PT Coag (PPP) [Time] 18.5 s High 9.6-13.3 [facility] RBC Morphologyon 09-13-2023 Target Cells Slight Normal [facility] Comment on above: Performed By: #### L 600.6150 #### Main [facility] ([facility]) [address] [place] [address] Drew Granger MD Renal Function Panelon 09-13 Albumin [Mass/Vol] 2.7 g/dL Low 3.5-5.0 [facility] Comment on above: Performed By: #### M 110.0050 #### Main [facility] ([facility]) [address] [place] [address] Drew Granger MD Anion gap [Moles/Vol] 9 mmol/L Normal 4-12 [facility] Comment on above: Performed By: #### M 110.0050 #### Main [facility] ([facility]) [address] [place] [address] Drew Granger MD Calcium [Mass/Vol] 7.60 mg/dL Low 8.8-10.5 [facility] Comment on above: Performed By: #### M 110.0050 #### Main [facility] ([facility]) [address] [place] [address] Drew Granger MD Chloride [Moles/Vol] 95 mmol/L Low 101-111 [facility] Comment on above: Performed By: #### M 110.0050 #### Main [facility] ([facility]) [address] [place] [address] Drew Granger MD CO2 [Moles/Vol] 26 mmol/L Normal 21-32 [facility] Comment on above: Performed By: #### M 110.0050 #### Main [facility] ([facility]) [address] [place] [address] Drew Granger MD Creatinine [Mass/Vol] 0.72 mg/dL Normal 0.60-1.30 [facility] Comment on above: Performed By: #### M 110.0050 #### Main [facility] ([facility]) [address] [place] [address] Drew Granger MD GFR Calculation > 60 Normal [facility] Comment on above: Result Comment: Plaster Block Layer dontrell Kidney Disease stages by NKDF Stage eGFR I >90 II 60-89 III 30-59 IV 15-29 V <15 or dialysis AGE(years) AVERAGE GFR 50-59 93 ml/min/1.73 square meters Note:This result is normalized to 1.73 square meter body surface area. Height and weight are not factored. Performed By: #### M 110.0050 #### Main [facility] ([facility]) [address] [place] [address] Drew Granger MD Glucose [Mass/Vol] 189 mg/dL High 70-110 [facility] Comment on above: Performed By: #### M 110.0050 #### Main [facility] ([facility]) [address] [place] [address] Drew Granger MD Phosphate [Mass/Vol] 4.5 mg/dL Normal 2.4-4.7 [facility] Comment on above: Performed By: #### M 110.0050 #### Main Laboratory ([facility]) [address] [place] [address] Drew Granger MD Potassium [Moles/Vol] 3.8 mmol/L Normal 3.6-5.0 [facility] Comment on above: Performed By: #### M 110.0050 #### Main [facility] ([facility]) [address] [place] [address] Drew Granger MD Sodium [Moles/Vol] 130 mmol/L Low 135-145 [facility] Comment on above: Performed By: #### M 110.0050 #### Main [facility] ([facility]) [address] [place] [address] Drew Granger MD Urea nitrogen [Mass/Vol] 21 mg/dL High 7-20 [facility] Comment on above: Performed By: #### M 110.0050 #### [facility] ([facility]) [address] [place] [address] Drew Granger MD Serum or plasma prealbumin m easurement (mass/volume)Ordered By: Troy Garber on 09-13-2023 Prealbumin [Mass/Vol] 5.0 mg/dL Low 16.0-38.0 [facility] Serum or plasma vancomycin m easurement (mass/volume)Ordered By: Hugo French on 09-13-2023 Vancomycin [Mass/Vol] 6.0 mcg/mL Low 15.0-40.0 [facility] Serum procalcitonin measurem entOrdered By: Troy Garber on 09-13-2023 Procalcitonin [Mass/Vol] 0.74 ng/mL High <0.50 [facility] Comment on above: Suspected Sepsis (Co ntinue Antibiotic therapy if patient is clinically unstable) 0.10 - 0.49 ng/mL - Low likelihood of sepsis/ antibiotics discouraged0.50 - 1.00 ng/mL - Increased likelihood of sepsis/ antibiotics encouraged>1.00 ng/mL - High Risk of sepsis/ antibiotics strongly encouragedSuspected Lower Respiratory Tract Infections (LRTI): 0.10 - 0.24 ng/mL - Low likelihood of bacterial infection/ antibiotics discouraged0.25 - 0.49 ng/mL - Increased likelihood of bacterial infection/antibiotics encouraged>0.50 ng/mL - High risk of bacterial infection/ antibiotics strongly encouragedLevels 0.50 - 2.00 ng/mL should be interpreted in the clinical context of the patient as a variety of non-infectious conditions such as ha, trauma, surgery and severe cardiogenic shock can cause procalcitonin elevations. *Selin et al., Lancet 2010;375: DOI:10.1016/X2546-8388579-8404 [phone] *Will Fuchs et al., [employer] In[employer] Med 2011;171:2706-0421 Status Note/Updateon 023 Status Note/Update [facility] Medical Records Patient: GEOVANNY MEJÍA [address] : 1970 [place], [place] [address] Location: [phone] Unit #: [id number] Status Note/Update Alec Clemons MD Service Dt/Tm: 09/13/23213 Note: GEOVANNY MEJÍA is a 53 yr old F who was admitted on 09/08/23 for INTRA ABDOMINAL ABCESS. 53-year-old female who is currently being treated for an abdominal abscess and has developed difficulty with ambulation MRI scan was completed and the official report is been pending; upon my review it appears there is an extra-axial fluid collection ventral to the thecal sac and thoracic cord at approximately T10-T12 Given the nature of her complaints, a stat MRI scan of the thoracic spine was obtained She is being preop for possible laminectomy and evacuation of fluid collection White count 31.4 PT 18.5 INR 1.59 Sodium 132 A full consult will follow I discussed the case with radiology since an official report has not been made available for a period of time; they appear to agree with my impression of the MRI Anticipate obtaining a consent for surgery for laminectomy covering all medically necessary levels potentially T10-T12 Entered by: Alec Clemons MD on 09/13/23213 Report Signed by: Alec Clemons MD on 09/13/23216 < > Report Signed by: on Normal [facility] Type and Screen(No Crossmatc h)on 09-13-2023 AB Screen (IAT) Negative Normal [facility] Comment on above: Performed By: #### L 600.6150 #### Main Laboratory ([facility]) [address] [place] [address] Drew Granger MD ABO and Rh group Nom (Bld) Blood group O Rh(D) positive Normal [facility] Comment on above: Performed By: #### L 600.6150 #### Main Laboratory ([facility]) [address] [place] [address] Drew Granger MD US OR Tech Time 15 minson US OR Tech Time 15 mins [facility] Radiology Department Patient: GEOVANNY MEJÍA [address] : 1970 Sex: Belinda [address] [place] [id number] Location: [phone] Unit #: [id number] Ordering Phys: Alec Clemons MD Exam Date: 09/13/23 Exam: US US OR Tech Time 15 mins Result: See Report [id number] INDICATION: low back pain/weakness EXAMINATION: Ultrasound US Guidance Intraoperative TECHNIQUE: Ultrasound was provided to the referring physician to assist in surgery. COMPARISON: None. __ FINDINGS: Ultrasound machine and technologist were provided to the referring physician to assist for a surgical procedure. No radiologist was present during the examination. The examination is nondiagnostic and was not performed for diagnostic purposes. IMPRESSION: Ultrasound was provided to the referring physician to assist in surgery as described above. Electronically Signed: Rey Haider MD at 9:23 EDT , cc: Alec Clemons MD; None Dictated by: Flor Haider MD on 09/13/23922 Transcribed by: Flor Haider on 09/13/23922 Report Signed by: Rey Haider MD on 09/13/23922 Normal [facility] Vancomycin Random (AUC)on Vancomycin Random (AUC) 6.0 mcg/mL Low 15.0-40.0 [facility] Comment on above: Performed By: #### L 600.6150 ####Main Laboratory ([facility])[address], [place] [phone] Nivar, MD XR Lumbar Spine 1 Viewon XR Lumbar Spine [address] [facility] Radiology Department Patient: GEOVANNY MEJÍA [address] : 1970 Sex: Belinda [place], [place] [address] Location: [phone] Unit #: [id number] Ordering Phys: Alec Clemons MD Exam Date: 09/13/23 Exam: MAIN XR Lumbar Spine 1 View Result: See Report [id number] STUDY: X-RAY -lumbar SPINE REASON FOR EXAM: Female, 53 years old. LUMBAR EDEN INTRAOPERATIVE FILMS TECHNIQUE: Coned-down fluoroscopic lateral view(s) of the lumbar spine were obtained. COMPARISON: MRI 09/13/2023 FINDINGS: Surgical localization devices along the left and right sides of the image with exact levels difficult to ascertain due to the coned image . IMPRESSION: Fluoroscopic image with limited diagnostic information. Please see procedure report. Electronically Signed: Anthony Guevara MD (Brooks) at 17:10 EDT Reading Location ID and State: [facility] / [place] , Service support , cc: Alec Clemons MD; None Dictated by: Freddy Guevara MD on 09/13/231709 Transcribed by: Freddy Guevara on 09/13/231709 Report Signed by: Ismael MEJÍA,Freddy Nielsen on 09/13/231709 Normal [facility] Basic Metabolic Panel,Fastin nivia 09-12-2023 Anion gap [Moles/Vol] 10 mmol/L Normal 4-12 [facility] Comment on above: Performed By: #### L 400.0202, L400.5100 ####Main Laboratory ([facility])[address] [place] [phone] Nivar, MD Calcium [Mass/Vol] 7.60 mg/dL Low 8.8-10.5 [facility] Comment on above: Performed By: #### L 400.0202, L400.5100 ####Main [facility] ([facility])[address] [place] [phone] Nivar, MD Chloride [Moles/Vol] 97 mmol/L Low 101-111 [facility] Comment on above: Performed By: #### L 400.0202, L400.5100 ####[facility] ([facility])[address] [place] [phone] Nivar, MD CO2 [Moles/Vol] 25 mmol/L Normal 21-32 [facility] Comment on above: Performed By: #### L 400.0202, L400.5100 ####[facility] ([facility])[address] [place] [phone] Nivar, MD Creatinine [Mass/Vol] 0.57 mg/dL Low 0.60-1.30 [facility] Comment on above: Performed By: #### L 400.0202, L400.5100 ####Main Laboratory ([facility])[address] [place] [phone] Nivar, MD GFR Calculation > 60 Normal [facility] Comment on above: Result Comment: Elvia dontrell Kidney Disease stages by NKDF Stage eGFR I >90 II 60-89 III 30-59 IV 15-29 V <15 or dialysis AGE(years) AVERAGE GFR 50-59 93 ml/min/1.73 square meters Note:This result is normalized to 1.73 square meter body surface area. Height and weight are not factored. Performed By: #### L 400.0202, L400.5100 ####[facility] ([facility])[address] [place] [phone] Nivar, MD Glucose [Mass/Vol] 88 mg/dL Normal 70-110 [facility] Comment on above: Performed By: #### L 400.0202, L400.5100 ####[facility] ([facility])[address] [place] [phone] Nivar, MD Potassium [Moles/Vol] 3.6 mmol/L Normal 3.6-5.0 [facility] Comment on above: Performed By: #### L 400.0202, L400.5100 ####[facility] ([facility])[address] [phone] Nivar, MD Sodium [Moles/Vol] 132 mmol/L Low 135-145 [facility] Comment on above: Performed By: #### L 400.0202, L400.5100 ####[facility] ([facility])[address] [place] [phone] Nivar, MD Urea nitrogen [Mass/Vol] 17 mg/dL Normal 7-20 [facility] Comment on above: Performed By: #### L 400.0202, L400.5100 ####Main [facility] ([facility])[address] [place] [phone] Nivar, MD CBC Without Differentialon Erythrocyte distribution width (RBC) [Ratio] 16.0 % Normal 12.0-16.0 [facility] Comment on above: Performed By: #### L 100.0050 #### Main Laboratory ([facility]) [address] [place] [address] Drew Granger MD Hematocrit (Bld) [Volume fraction] 29.6 % Low 35.0-44.0 [facility] Comment on above: Performed By: #### L 100.0050 #### Main Laboratory ([facility]) [address] [place] [address] Drew Granger MD Hemoglobin (Bld) [Mass/Vol] 9.8 g/dL Low 12.0-15.0 [facility] Comment on above: Performed By: #### L 100.0050 #### Main Laboratory ([facility]) [address], [place] [address] Drew Granger MD MCH (RBC) [Entitic mass] 28.0 pg Normal 27.5-33.0 [facility] Comment on above: Performed By: #### L 100.0050 #### Main Laboratory ([facility]) [facility] [place] [address] Drew Granger MD MCHC (RBC) [Mass/Vol] 33.0 g/dL Normal 33.0-36.0 [facility] Comment on above: Performed By: #### L 100.0050 #### Main Laboratory ([facility]) [facility] [address] [place], [place] [address] Drew Granger MD MCV 84.8 CU MILKA Normal 80-97 [facility] Comment on above: Performed By: #### L 100.0050 #### Main Laboratory ([facility]) [address] [place] [address] Drew Granger MD Platelet Count 241 th/cmm Normal 150-400 [facility] Comment on above: Performed By: #### L 100.0050 #### Main Laboratory ([facility]) [address] [place] [address] Drew Granger MD RBC 3.49 mil/cmm Low 4.00-5.10 [facility] Comment on above: Performed By: #### L 100.0050 #### Main Laboratory ([facility]) [address] [place] [address] Drew Granger MD WBC 31.4 th/cmm High 4.4-10.5 [facility] Comment on above: Performed By: #### L 100.0050 #### Main Laboratory ([facility]) [address] [place] [address] Lumbar Spine W/O Cont [id number] 31on 09-12-2023 CT Lumbar Spine W/O Cont [id number] [facility] Radiology Department Patient: GEOVANNY MEJÍA [address] : 1970 Sex: [place] [address] Location: [phone] Unit #: [id number] Ordering Phys: Craig Rodriguez DO Exam Date: 09/12/23 Exam: CT CT Lumbar Spine W/O Cont [id number] Result: See Report [id number] EXAM: CT LUMBAR SPINE WITHOUT INTRAVENOUS CONTRAST CLINICAL INDICATION: back pain. pt states she can''t feel her legs since yesterday. TECHNIQUE: Helically acquired images were obtained of the lumbar spine without intravenous contrast. 2D reformats were reviewed. This CT exam was performed using one or more of the following dose reduction techniques: automated exposure control, adjustment of the mA and/or kV according to patient size, and/or use of iterative reconstruction technique. This report was created using [employer] report generation technology. COMPARISON: CT 09/10/2023 FINDINGS: VERTEBRAE: Multilevel facet arthropathy particularly at L4-L5. Slight grade 1 spondylolisthesis L4-L5 due to facet arthropathy. DISCS/SPINAL CANAL/NEURAL FORAMINA: There is congenital narrowing throughout the lumbar spine with superimposed degenerative canal narrowing at L2-L3, L3-L4 and L4-L5. Degenerative canal narrowing is related to broad posterior disc bulging, ligamentum flavum hypertrophy and facet arthropathy. There is also foraminal narrowing at bilateral L4-L5 more than L3-4. Diffuse disc space narrowing at L3-L4 with discogenic sclerosis and cyst of the inferior L3 endplate. SOFT TISSUES: Surrounding soft tissues are unchanged since recent abdomen/pelvis CT dated 09/10/2023, including left retroperitoneal drainage catheter and adjacent minimal fluid. VASCULATURE: Atherosclerosis of the abdominal aorta. LYMPH NODES: Unremarkable. No retroperitoneal adenopathy. IMPRESSION: Multilevel degenerative disc disease, facet arthropathy and ligamentum flavum hypertrophy with congenital and acquired canal narrowing, predominantly at L3-L4 and L4-L5. Findings would better be delineated with MRI, especially if there is concern for neural impingement. Electronically Signed: Anthony Guevara MD (Brooks) at 12:07 EDT Reading Location ID and State: [address] [place] [address] , Service support , cc: Craig Rodriguez DO; None Dictated by: Freddy Guevara MD on 09/12/231206 Transcribed by: Freddy Guevara on 09/12/231206 Report Signed by: Ismael MEJÍA,Freddy Nielsen on 09/12/23 1207 Normal [facility] Ionized Calciumon 09-12-2023 Ionized Calcium 1.07 mmol/L Low 1.15-1.29 [facility] Comment on above: Performed By: #### L 100.0050 #### Main Laboratory ([facility]) [address] [place] [address] Drew Granger MD MRI Lumbar Spine w/wo Contro n 09-12-2023 MRI Lumbar Spine w/wo Contr [facility] Radiology Department Patient: GEOVANNY MEJÍA [address] : 1970 Sex: F [place], [place] [address] Location: [phone] Unit #: [id number] Ordering Phys: Craig Rodriguez DO Exam Date: 09/12/23 Exam: MRI MRI Lumbar Spine w/wo Contr Result: See Report [id number] INDICATION: CHRONIC LOW BACK PAIN WITH SCIATICA, LOWER EXTREMITY WEAKNESS WORSENING ON RIGHT SIDE, NO SURGERY EXAMINATION: MRI - MR Spine Lumbar WO/W Contrast TECHNIQUE: Multiplanar and multisequence MR images of the lumbar spine. Images were obtained pre- and post-IV contrast. IV Contrast Dosage and Agent: 8 mL of Gadavist. COMPARISON: 09/12/2023 CT. __ FINDINGS: There is abnormal signal and enhancement within the anterior epidural space extending from the mid T11 vertebral body superiorly to the superior aspect of the field of view of the superior aspect of T10. This compresses the cord at this level. There is a focus of abnormal increased T2 signal within the cord at the T10 level. Abnormal increased T2 signal within the T10-T11 disc with no significant abnormal enhancement. Abnormal increased T2 signal within the L3-L4 disc with no appreciable abnormal enhancement. Mild increased enhancement of the inferior endplate of the L3 vertebral body. Moderate to severe degenerative changes throughout the lumbar spine with mild central canal stenosis at L3-L4 and moderate central canal stenosis at L4-L5 and L5-S1. Severe bilateral neural foraminal narrowing from L2 through S1 secondary to facet arthrosis. IMPRESSION: 1. Findings consistent with an epidural abscess seen at the superior aspect of the field of view posterior to the T10 and T11 vertebrae likely extending superiorly. This compresses the cord at this level. Focus of abnormal signal within the adjacent cord which may represent myelomalacia or and intramedullary infection. These findings were discussed with Dr. Clemons on 09/12/2023 at 11:27 PM Central time telephonically by myself. He stated that and MRI with contrast of the thoracic spine is pending. 2. Abnormal signal in the L3-L4 disc and mild enhancement of the inferior endplate of the L3 vertebral body. Findings may represent degenerative disc disease with discitis/osteomyeliti s difficult to exclude. No evidence of an epidural abscess at this level. 3. Degenerative changes with varying degrees of significant central canal stenosis and neural foraminal narrowing as described above. Electronically Signed: Alec Sen DO at 0:34 EDT , cc: Craig Rodriguez DO; None Dictated by: Alec Sen DO on 09/13/2333 Transcribed by: Alec Sen DO on 09/13/2333 Report Signed by: Alec Sen DO on 09/13/2333 Normal [facility] Magnesiumon 09-12-2023 Magnesium [Mass/Vol] 2.2 mg/dL Normal 1.8-2.5 [facility] Comment on above: Performed By: #### L 400.0202, L400.5100 ####Main Laboratory ([facility])[address], [place] [phone] Nivar, MD Progress Note - Hospitalisto n 09-12-2023 Progress Note - Hospitalist [facility] Medical Records Patient: GEOVANNY MEJÍA [address] : 1970 [place], [place] [address] Location: [phone] Unit #: [id number] Progress Note - Hospitalist Craig Rodriguez DO Service Dt/Tm: 09/12/23 1031 Assessment/Plan Assessment/Plan (1) Retroperitoneal abscess: Status: Acute Code(s): K68.19 - Other retroperitoneal abscess Plan: Left sided RP abscess on CT measuring 4.7 X2.6X 4.5 cm. on IV fluids and IV cefazolin IR placed abdominal abscess drain, purulent fluid draining from abscess. Repeat CT of the abdomen and pelvis was done, showing improvement/decrease in the size of the abscess Blood cultures and abscess cultures are positive for MSSA. 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 Continue IV cefazolin per ID. No surgical indication at this point per surgery team. Vitals stable. (2) Sciatica: Status: Acute Qualifiers: Laterality: unspecified laterality Qualified Code(s): M54.30 - Sciatica, unspecified side Code(s): M54.30 - Sciatica, unspecified side Plan: Patient states that this is chronic. On examination, she has significant weakness and decree sensation mostly in her right lower extremity, but also in the left lower extremity. CT lumbar spine is ordered and pending. Neurosurgery will be consulted to follow. No urinary or fecal incontinence or saddle anesthesia. (3) Back pain: Status: Acute Qualifiers: Back pain laterality: unspecified Back pain location: low back pain Chronicity: acute Sciatica laterality: sciatica of right side Sciatica presence: with sciatica Qualified Code(s): M54.41 - Lumbago with sciatica, right side Code(s): M54.9 - Dorsalgia, unspecified Plan: As above. (4) Bacteremia: Status: Acute Code(s): R78.81 - Bacteremia Plan: MSSA bacteremia. Patient is on IV cefazolin. ID following. Repeat blood cultures done on 09/11/2023 are negative for any bacteremia so far. Current Code Status AND Diet: 09/08/23 13:19 Code Status Routine Resuscitation Status: Full Code Code Status Order Placed: Code Status Ordered 09/08/23 at 1321 09/09/23 15:04 NPO except Meds and Ice Chips Subjective Subjective: Patient is seen and examined. She is awake, alert and oriented. Patient is complaining of persistent abdominal pain that seems to be overall improving. She is also complaining of a chronic back pain, and she has a significant bilateral lower extremity weakness [right more than left], and complete loss of sensation in the right lower extremity which patient states that it is chronic. Yet, because of laying down for a long period of time, she is getting increasingly weak. Patient will be getting CT lumbar spine on urgent basis, and neurology /neurosurgery consult will follow. Patient Status AND Estimated DC Date Patient Registration Status: Inpatient Objective Physical Exam: General: Awake, alert, oriented, no confusion.???intermit tent abdominal pain. HEENT: Atraumatic, normocephalic, oral mucosa is intact. Neck: No JVD, trachea is midline. Heart: Regular rate and rhythm, no murmurs or gallops. Lungs: Clear to auscultation bilaterally, no crackles, no wheezes, no rhonchi. Abdomen: Soft, left abdominal tenderness to palpation, abd is distended, no rebound tenderness, positive bowel sounds in all quadrants.??? Left abdominal draining catheter Extremities: No edema, no clubbing no cyanosis. Vascular: Good dorsalis pedis pulses bilaterally and popliteal pulses. Skin: No rashes, no discoloration, no lesions. Musculoskeletal/neuro : Patient has no sensation in right lower extremity. She has significant weakness in bilateral lower extremities [right more than left, right lower extremity strength is 1/5, left lower extremity strength is 2/5] Constitutional: Last Vital Signs Temp Pulse Resp BP Pulse Ox O2 Flow Rate 98.9 F 103 H 20 134/66 94 2.0 09/12/23 07:42 09/12/23 07:42 09/12/23 07:42 09/12/23 07:42 09/12/23 07:42 09/12/23 07:42 Intake and Output Intake Total 2475.52 2724.62 Output Total 1900 2200 Balance 575.52 524.62 Admitting (IV Pump) Weight 83 kg Actual Weight (Kg) 83 kg Data Labs: Magnesium 2.2 WBC 31.4 H RBC 3.49 L Hgb 9.8 L Hct 29.6 L MCV 84.8 MCH 28.0 MCHC 33.0 RDW 16.0 Plt Count 241 Sodium 132 L Potassium 3.6 Chloride 97 L Carbon Dioxide 25 Anion Gap 10 BUN 17 Creatinine 0.57 L Calcium 7.60 L The last 24 hours of labs have been reviewed. Imaging: I have reviewed the diagnostic images in the EMR. Microbiology: Microbiology 09/11/23 13:40 Blood,Venous Blood Culture - Preliminary No growth after 1 day, cultures held 5 days. 09/11/23 13:35 Blood,Venous Blood (more content not included)... Normal [facility] Serum or plasma fasting gluc ose measurement (mass/volume)Ordered By: Willy Lechuga on 09-12-2023 Glucose post fast [Mass/Vol] 88 mg/dL 70-110 [facility] Basic Metabolic Panel,Fastin nivia 09-11-2023 Anion gap [Moles/Vol] 11 mmol/L Normal 4-12 [facility] Comment on above: Performed By: #### L 100.2000, L100.0000 #### Main Laboratory ([facility]) [address] [place] [address] Drew Granger MD Calcium [Mass/Vol] 7.50 mg/dL Low 8.8-10.5 [facility] Comment on above: Performed By: #### L , L100.0000 #### Main Laboratory ([facility]) [address] [place] [address] Drew Granger MD Chloride [Moles/Vol] 98 mmol/L Low 101-111 [facility] Comment on above: Performed By: #### L , L100.0000 #### Main Laboratory ([facility]) [address] [place] [address] Drew Granger MD CO2 [Moles/Vol] 23 mmol/L Normal 21-32 [facility] Comment on above: Performed By: #### L , L100.0000 #### Main Laboratory ([facility]) [address] [place] [address] Drew Granger MD Creatinine [Mass/Vol] 0.55 mg/dL Low 0.60-1.30 [facility] Comment on above: Performed By: #### L , L100.0000 #### Main Laboratory ([facility]) [address] [place] [address] Drew Granger MD GFR Calculation > 60 Normal [facility] Comment on above: Result Comment: Plaster Block Layer dontrell Kidney Disease stages by NKDF Stage eGFR I >90 II 60-89 III 30-59 IV 15-29 V <15 or dialysis AGE(years) AVERAGE GFR 50-59 93 ml/min/1.73 square meters Note:This result is normalized to 1.73 square meter body surface area. Height and weight are not factored. Performed By: #### L , L100.0000 #### Main Laboratory ([facility]) [address] [place] [address] Drew Granger MD Glucose [Mass/Vol] 83 mg/dL Normal 70-110 [facility] Comment on above: Performed By: #### L , L100.0000 #### Main Laboratory ([facility]) [address] [place] [address] Drew Granger MD Potassium [Moles/Vol] 3.7 mmol/L Normal 3.6-5.0 [facility] Comment on above: Performed By: #### L , L100.0000 #### Main Laboratory ([facility]) [address] [place] [address] Drew Granger MD Sodium [Moles/Vol] 132 mmol/L Low 135-145 [facility] Comment on above: Performed By: #### L , L100.0000 #### Main Laboratory ([facility]) [address] [place] [address] Drew Granger MD Urea nitrogen [Mass/Vol] 15 mg/dL Normal 7-20 [facility] Comment on above: Performed By: #### L , L100.0000 #### Main Laboratory ([facility]) [address] [place] [address] Drew Granger MD Blood Cultureon 09-11-2023 Bacteria identified Cx Nom (Bld) STAPH EPI recovered from one set of 2 sets. Isolation does not necessarily mean infection. If definitive ID and sensitivity is needed, call the microbiology department at [place] [phone]. Isolate will be retained for seven days. ORGANISM 1: Staphylococcus aureus Growth from the aerobic and anaerobic blood culture bottle For MILKA results, see culture collected 09/08/23 [id number] ORGANISM 2: Staphylococcus epidermidis Growth from the aerobic blood culture bottle Normal [facility] Comment on above: Performed By: #### M 110.0050 #### Main Laboratory ([facility]) [address] [place] [address] Drew Granger MD Bacteria identified Cx Nom (Bld) Methodology: Multiplex Nucleic Acid Amplification, NAAT (RT-PCR) Enterococcus faecalis Not Detected Enterococcus faecium Not Detected Listeria monocytogenes Not Detected Staphylococcus spp Detected Staphylococcus aureus Detected Staph epidermidis Not Detected Staph lugdunensis Not Detected Streptococcus spp Not Detected Streptococcus agalactiae Not Detected Streptococcus pneumoniae Not Detected Streptococcus pyogenes Not Detected Ac calco/osiel cmplx Not Detected Bacteroides fragilis Not Detected Enterobacterales Not Detected Enterobacter cloacae cplx Not Detected Escherichia coli Not Detected Klebsiella aerogenes Not Detected Klebsiella oxytoca Not Detected Klebsiella pneumoniae Not Detected Proteus spp Not Detected Salmonella spp Not Detected Serratia marcescens Not Detected Haemophilus influenzae Not Detected Neisseria meningitidis Not Detected Pseudomonas aeruginosa Not Detected Stenotroph maltophilia Not Detected Alena albicans Not Detected Alena auris Not Detected Alena glabrata Not Detected Alena krusei Not Detected Alena parapsilosis Not Detected Alena tropicalis Not Detected Crypto neoformans/gattii Not Detected CTX-M Not applicable IMP Not applicable KPC Not applicable mcr-1 Not applicable mecA/C Not applicable mecA/C and MREJ (MRSA) Not Detected NDM Not applicable OXA-48-like Not applicable Lucina/B Not applicable VIM Not applicable called to and read back by Ryanne Taylor RN (by FLGILMER at 0530, 09/09/23) ORGANISM 1: Staphylococcus aureus Growth from the aerobic and anaerobic blood culture bottle Staphylococcus aureus: REACTION Clindamycin <=0.25 S Erythromycin <=0.25 S Gentamicin <=0.5 S Linezolid 2 S Moxifloxacin <=0.25 S Levofloxacin 0.25 S Oxacillin 0.5 S Penicillin >=0.5 R Rifampin <=0.5 S Tetracycline <=1 S Trimethoprim/Sulfamet hoxazole <=10 S Vancomycin <=0.5 S Normal [facility] Comment on above: Performed By: #### L 400.0410 #### Main Laboratory ([facility]) [address] [place] [address] Drew Granger MD CBC Without Differentialon Erythrocyte distribution width (RBC) [Ratio] 16.1 % High 12.0-16.0 [facility] Comment on above: Performed By: #### L 100.2000, L100.0000 #### Main Laboratory ([facility]) [address] [place] [address] Drew Granger MD Hematocrit (Bld) [Volume fraction] 30.1 % Low 35.0-44.0 [facility] Comment on above: Performed By: #### L , L100.0000 #### Main Laboratory ([facility]) [address] [place] [address] Drew Granger MD Hemoglobin (Bld) [Mass/Vol] 9.8 g/dL Low 12.0-15.0 [facility] Comment on above: Performed By: #### L , L100.0000 #### Main Laboratory ([facility]) [address] [place] [address] Drew Granger MD MCH (RBC) [Entitic mass] 27.7 pg Normal 27.5-33.0 [facility] Comment on above: Performed By: #### L , L100.0000 #### Main Laboratory ([facility]) [address] [place], [facility] Drew Granger MD MCHC (RBC) [Mass/Vol] 32.6 g/dL Low 33.0-36.0 [facility] Comment on above: Performed By: #### L , L100.0000 #### Main Laboratory ([facility]) [address] [place] [facility] Drew Granger MD MCV 84.9 CU MILKA Normal 80-97 [facility] Comment on above: Performed By: #### L , L100.0000 #### Main Laboratory ([facility]) [address] [place], [facility] Drew Granger MD Platelet Count 180 th/cmm Normal 150-400 [facility] Comment on above: Performed By: #### L , L100.0000 #### Main Laboratory ([facility]) [address] [place] [address] Drew Granger MD RBC 3.54 mil/cmm Low 4.00-5.10 [facility] Comment on above: Performed By: #### L 100.1999, L100.0000 #### Main Laboratory ([facility]) [address] [place] [address] Drew Granger MD WBC 29.8 th/cmm High 4.4-10.5 [facility] Comment on above: Performed By: #### L 100.1999, L100.0000 #### Main Laboratory ([facility]) [address] [place] [address] Drew Granger MD Case Management General Note on 09-11-2023 Case Management General Note [facility] Case Management Patient: GEOVANNY MEJÍA [address] : 1970 [place] [address] Location: [address] [place] [address] Unit #: [id number] Case Management General Note Eveylne Pena RN Service Date: 09/11/23 Case Management General Note - Note Note: 09/11 [facility] [address] [address] - Letter Delivered Was Position Statement Letter Delivered?: Yes Entered by: Evelyne Pena RN on 09/11/23 1219 Report Signed by: Evelyne Pnea RN on 09/11/23 1220 < > Co-Signed by: on Normal [facility] Magnesiumon 09-11-2023 Magnesium [Mass/Vol] 2.3 mg/dL Normal 1.8-2.5 [facility] Comment on above: Performed By: #### L 100.1999, L100.0000 #### Main Laboratory ([facility]) [address] [place] [address] Drew Granger MD Progress Note - Hospitalisto korina 09-11-2023 Progress Note - Hospitalist [facility] Medical Records Patient: GEOVANNY MEJÍA [address] : 1970 [place] [address] Location: [phone] Unit #: [id number] Progress Note - Hospitalist Craig Rodriguez DO Service Dt/Tm: 09/11/23 1041 Assessment/Plan Assessment/Plan (1) Retroperitoneal abscess: Status: Acute Code(s): K68.19 - Other retroperitoneal abscess Plan: Left sided RP abscess on CT measuring 4.7 X2.6X 4.5 cm. on IV fluids and IV cefazolin IR placed abdominal abscess drain, purulent fluid draining from abscess. Blood cultures and abscess cultures are positive for MSSA. 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 Vitals stable. (2) Sciatica: Status: Acute Qualifiers: Laterality: unspecified laterality Qualified Code(s): M54.30 - Sciatica, unspecified side Code(s): M54.30 - Sciatica, unspecified side Plan: Pain meds as needed. (3) Back pain: Status: Acute Qualifiers: Back pain location: low back pain Chronicity: acute Back pain laterality: unspecified Sciatica presence: with sciatica Sciatica laterality: sciatica of right side Qualified Code(s): M54.41 - Lumbago with sciatica, right side Code(s): M54.9 - Dorsalgia, unspecified Plan: As above. (4) Bacteremia: Status: Acute Code(s): R78.81 - Bacteremia Plan: MSSA bacteremia. Patient is on IV cefazolin. ID following. Current Code Status AND Diet: 09/08/23 13:19 Code Status Routine Resuscitation Status: Full Code Code Status Order Placed: Code Status Ordered 09/08/23 at 1321 09/09/23 15:04 NPO except Meds and Ice Chips Subjective Subjective: Patient is examined and seen. She is awake, alert and oriented. 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 No nausea or vomiting, no fever or chills. Patient was evaluated by infectious disease and the recommendation is to continue IV cefazolin, and switch to oral antibiotic on discharge. Yet, leukocytosis is worsening and patient seems to be having increased abdominal distention. Patient Status AND Estimated DC Date Patient Registration Status: Inpatient Objective Physical Exam: General: Awake, alert, oriented, no confusion.???intermit tent abdominal pain. HEENT: Atraumatic, normocephalic, oral mucosa is intact. Neck: No JVD, trachea is midline. Heart: Regular rate and rhythm, no murmurs or gallops. Lungs: Clear to auscultation bilaterally, no crackles, no wheezes, no rhonchi. Abdomen: Soft, left abdominal tenderness to palpation, abd is distended, no rebound tenderness, positive bowel sounds in all quadrants.??? Left abdominal draining catheter Extremities: No edema, no clubbing no cyanosis. Vascular: Good dorsalis pedis pulses bilaterally and popliteal pulses. Skin: No rashes, no discoloration, no lesions. Musculoskeletal/neuro : No focal neurological deficits.??? No motor or sensory deficits.??? Constitutional: Last Vital Signs Temp Pulse Resp BP Pulse Ox O2 Flow Rate 100.2 F 103 H 18 118/70 93 2 09/11/23 07:27 09/11/23 07:27 09/11/23 07:27 09/11/23 07:27 09/11/23 07:27 09/11/23 08:35 Intake and Output Intake Total 2076.51 2475.52 Output Total 1900 1900 Balance 176.51 575.52 Admitting (IV Pump) Weight 83 kg Actual Weight (Kg) 83 kg Data Labs: Magnesium 2.3 WBC 29.8 H RBC 3.54 L Hgb 9.8 L Hct 30.1 L MCV 84.9 MCH 27.7 MCHC 32.6 L RDW 16.1 H Plt Count 180 Sodium 132 L Potassium 3.7 Chloride 98 L Carbon Dioxide 23 Anion Gap 11 BUN 15 Creatinine 0.55 L Calcium 7.50 L The last 24 hours of labs have been reviewed. Imaging: I have reviewed the diagnostic images in the EMR. Microbiology: Microbiology 09/08/23 18:20 Blood,Venous Blood Culture - Final Staphylococcus aureus Staphylococcus epidermidis 09/08/23 18:15 Blood,Venous - Final 09/08/23 18:15 Blood,Venous Blood Culture - Final Staphylococcus aureus 09/08/23 Unknown Perianal MRSA Screen - Final No growth of MRSA after 2 days. 09/08/23 15:46 Abdominal fluid Gram Stain - Final 09/08/23 15:46 Abdominal fluid Body Fluid Culture - Preliminary Staphylococcus aureus Medications and Comanagement: Medications reviewed separately. Entered by: Craig Rodriguez DO on 09/11/23 1041 Report Signed by: Craig Rodriguez DO on 09/11/23 1047 < > Report Signed by: on Normal [facility] Basic Metabolic Panel,Fastin nivia 09-10-2023 Anion gap [Moles/Vol] 10 mmol/L Normal 4-12 [facility] Comment on above: Performed By: #### L 400.0202, L400.5100 ####Main Laboratory ([facility])[address], [place] [id number] Nivar, MD Calcium [Mass/Vol] 7.70 mg/dL Low 8.8-10.5 [facility] Comment on above: Performed By: #### L 400.0202, L400.5100 ####Main Laboratory ([facility])[address] [place] [phone] Nivar, MD Chloride [Moles/Vol] 101 mmol/L Normal 101-111 [facility] Comment on above: Performed By: #### L 400.0202, L400.5100 ####Main Laboratory ([facility])[address] [place] [phone] Nivar, MD CO2 [Moles/Vol] 23 mmol/L Normal 21-32 [facility] Comment on above: Performed By: #### L 400.0202, L400.5100 ####Main Laboratory ([facility])[address] [place], [place] [phone] Nivar, MD Creatinine [Mass/Vol] 0.54 mg/dL Low 0.60-1.30 [facility] Comment on above: Performed By: #### L 400.0202, L400.5100 ####Main Laboratory ([facility])[address], [place] [phone] Nivar, MD GFR Calculation > 60 Normal [facility] Comment on above: Result Comment: Plaster Block Layer dontrell Kidney Disease stages by NKDF Stage eGFR I >90 II 60-89 III 30-59 IV 15-29 V <15 or dialysis AGE(years) AVERAGE GFR 50-59 93 ml/min/1.73 square meters Note:This result is normalized to 1.73 square meter body surface area. Height and weight are not factored. Performed By: #### L 400.0202, L400.5100 ####Main Laboratory ([facility])[address] [phone] Nivar, MD Glucose [Mass/Vol] 91 mg/dL Normal 70-110 [facility] Comment on above: Performed By: #### L 400.0202, L400.5100 ####Main Laboratory ([facility])[address] [phone] Nivar, MD Potassium [Moles/Vol] 3.7 mmol/L Normal 3.6-5.0 [facility] Comment on above: Performed By: #### L 400.0202, L400.5100 ####Main Laboratory ([facility])[address] [phone] Nivar, MD Sodium [Moles/Vol] 134 mmol/L Low 135-145 [facility] Comment on above: Performed By: #### L 400.0202, L400.5100 ####Main Laboratory ([facility])[address], [place] [phone] Nivar, MD Urea nitrogen [Mass/Vol] 16 mg/dL Normal 7-20 [facility] Comment on above: Performed By: #### L 400.0202, L400.5100 ####Main Laboratory ([facility])[address] [phone] Nivar, MD CBC Without Differentialon Erythrocyte distribution width (RBC) [Ratio] 16.3 % High 12.0-16.0 [facility] Comment on above: Performed By: #### L 100.0050 #### Main Laboratory ([facility]) [address] [place] [address] Drew Granger MD Hematocrit (Bld) [Volume fraction] 30.4 % Low 35.0-44.0 [facility] Comment on above: Performed By: #### L 100.0050 #### Main Laboratory ([facility]) [address] [place] [address] Drew Granger MD Hemoglobin (Bld) [Mass/Vol] 10.0 g/dL Low 12.0-15.0 [facility] Comment on above: Performed By: #### L 100.0050 #### Main Laboratory ([facility]) [facility] [place] [address] Drew Granger MD MCH (RBC) [Entitic mass] 28.0 pg Normal 27.5-33.0 [facility] Comment on above: Performed By: #### L 100.0050 #### Main Laboratory ([facility]) [facility] [place] [address] Drew Granger MD MCHC (RBC) [Mass/Vol] 33.0 g/dL Normal 33.0-36.0 [facility] Comment on above: Performed By: #### L 100.0050 #### Main Laboratory ([facility]) [address] [place] [address] Drew Granger MD MCV 84.9 CU MILKA Normal 80-97 [facility] Comment on above: Performed By: #### L 100.0050 #### Main Laboratory ([facility]) [address] [place] [address] Drew Granger MD Platelet Count 164 th/cmm Normal 150-400 [facility] Comment on above: Performed By: #### L 100.0050 #### Main Laboratory ([facility]) [address] [place] [address] Drew Granger MD RBC 3.58 mil/cmm Low 4.00-5.10 [facility] Comment on above: Performed By: #### L 100.0050 #### Main Laboratory ([facility]) [address] [place] [address] Drew Granger MD WBC 23.3 th/cmm High 4.4-10.5 [facility] Comment on above: Performed By: #### L 100.0050 #### Main Laboratory ([facility]) [address] [place] [address] Drew Granger MD Case Management Daily Noteon 09-10-2023 Case Management Daily Note [facility] Case Management Patient: GEOVANNY MEJÍA [address] : 1970 [place] [address] Location: [address] [place] [address] Unit #: [id number] Case Management Daily Note Evelyne Pena RN Service Date: 09/10/23 Case Mgmt Daily Note - Plan of Care [employer] Agrees with Attending and Consult Plan: Yes - Patient Preferences AND Goals What is the patient's preference?: Services to be Determined Recommended acute discharge goals: Services to be Determined - Hospital Stay Days Day 1 Comment: 09/08 Met with patient in the room. Patient is from [place]. She is up here to visit her sister. Patient reporting she is normally independent. Does not have a PCP. Patient would like to use [facility] for meds. Planning to have her cousin pick her up at d/c. Contact is her cousin Ursula. Denies having LW/dPOA. [employer]: Evelyne Pena, RN Day 2 Comment: 09/09 Met with patient in the room. Patient asking to get up and move around. PT/OT to eval. S/p L ABD drain placement. Patient agreeable to [facility] for drain mgmt if needed. Reporting she will be going to [facility] at d/c to stay with her cousin Ursula. CM spoke with patients cousin Ursula via telephone who reports she is ok with [facility] coming to her home if patient would go there at d/c. Ursula reporting patient was homeless in [place] and recently move to [place] with her sister Monique. [employer]: Evelyne Pena, RN Day 3 Comment: 09/10 D/c needs pending medical course. Jr present. 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 PT/OT. ID c/s. Therapy recs for IPR vs OP PT. Will follow to assist with d/c needs. [employer]: Evelyne Pena, RN - Transportation Mode of Transportation: Private Vehicle - Respiratory Equipment Does the patient have a nebulizer at home?: No - * L * Length of Stay LOS (Including day of Admission and Discharge): 3 LOS Score: 3 - * C * Comorbidities Select All Conditions that Apply: No Comorbidity Condition Comorbidities Total Score: 0 - * E * Emergency Department Visits # of ER visits,6mos prior to admit,excl this admits ER visit: 0 Enter this number or 4 (whichever is smaller): 0 - LACE SCORE LACE Score: 3 - ANTICIPATED DISCHARGE Anticipated Discharge Date: 09/12/23 Is a ARCHIBALD Form Required?: No Entered by: Evelyne Pena RN on 09/10/23 0920 Report Signed by: Evelyne Pena RN on 09/10/23 1512 < > Co-Signed by: on Normal [facility] MRSA screen, fecon MRSA screen, fec No growth of MRSA after 2 days. Normal [facility] Comment on above: Performed By: #### M 110.0050 #### Main Laboratory ([facility]) [address] [place] [address] Drew Granger MD Magnesiumon 09-10-2023 Magnesium [Mass/Vol] 2.1 mg/dL Normal 1.8-2.5 [facility] Comment on above: Performed By: #### L 400.0202, L400.5100 ####Main Laboratory ([facility])[address], [place] [phone] Nivar, MD Progress Note - Hospitalisto n 09-10-2023 Progress Note - Hospitalist [facility] Medical Records Patient: GEOVANNY MEJÍA [address] : 1970 [place], [place] [address] Location: [phone] Unit #: [id number] Progress Note - Hospitalist Craig Rodriguez DO Service Dt/Tm: 09/10/23 1230 ADDENDUM: Significant leukocytosis: On IV antibiotic. Continue monitoring with repeat blood blood work daily Addendum Entered by: Craig Rodriguez DO on 09/10/23 at 1240 Addendum Signed by: Craig Rodriguez DO on 09/10/23 1240 < > Addendum Signed by: on Assessment/Plan Assessment/Plan (1) Retroperitoneal abscess: Status: Acute Code(s): K68.19 - Other retroperitoneal abscess Plan: Left sided RP abscess on CT measuring 4.7 X2.6X 4.5 cm. on IV fluids and IV cefazolin IR placed abdominal abscess drain, purulent fluid draining from abscess. Blood cultures and abscess cultures are positive for MSSA. Patient is on Dilaudid [employer]AT[employer] OFFICER due to her significant pain Vitals stable. (2) Sciatica: Status: Acute Qualifiers: Laterality: unspecified laterality Qualified Code(s): M54.30 - Sciatica, unspecified side Code(s): M54.30 - Sciatica, unspecified side Plan: Pain meds as needed. (3) Back pain: Status: Acute Qualifiers: Back pain laterality: unspecified Back pain location: low back pain Chronicity: acute Sciatica laterality: sciatica of right side Sciatica presence: with sciatica Qualified Code(s): M54.41 - Lumbago with sciatica, right side Code(s): M54.9 - Dorsalgia, unspecified Plan: As above. (4) Bacteremia: Status: Acute Code(s): R78.81 - Bacteremia Plan: MSSA bacteremia. Patient is on IV cefazolin. ID will be consulted to follow. Current Code Status AND Diet: 09/08/23 13:19 Code Status Routine Resuscitation Status: Full Code Code Status Order Placed: Code Status Ordered 09/08/23 at 1321 09/09/23 15:04 NPO except Meds and Ice Chips Subjective Subjective: Patient seen and examined. She is currently on a dilaudid [employer]ICER pump and still having significant abdominal pain. Abdominal abscess culture is positive for MSSA, and so is the blood culture. The antibiotic has been changed to IV cefazolin. ID will be consulted to follow along. Patient Status AND Estimated DC Date Patient Registration Status: Inpatient Objective Physical Exam: General: Awake, alert, oriented, no confusion.???Persiste nt left abdominal pain. HEENT: Atraumatic, normocephalic, oral mucosa is intact. Neck: No JVD, trachea is midline. Heart: Regular rate and rhythm, no murmurs or gallops. Lungs: Clear to auscultation bilaterally, no crackles, no wheezes, no rhonchi. Abdomen: Soft, left abdominal tenderness to palpation, nondistended, no rebound tenderness, positive bowel sounds in all quadrants. Left abdominal draining catheter Extremities: No edema, no clubbing no cyanosis. Vascular: Good dorsalis pedis pulses bilaterally and popliteal pulses. Skin: No rashes, no discoloration, no lesions. Musculoskeletal/neuro : No focal neurological deficits.??? No motor or sensory deficits.??? Constitutional: Last Vital Signs Temp Pulse Resp BP Pulse Ox O2 Flow Rate 98.2 F 109 H 20 151/82 H 91 2 09/10/23 10:31 09/10/23 04:16 09/10/23 01:56 09/10/23 10:31 09/10/23 04:16 09/09/23 10:20 Intake and Output Intake Total 832.41 2076.51 Output Total 1450 1900 Balance -617.59 176.51 Admitting (IV Pump) Weight 83 kg Actual Weight (Kg) 83 kg Data Labs: Magnesium 2.1 WBC 23.3 H RBC 3.58 L Hgb 10.0 L Hct 30.4 L MCV 84.9 MCH 28.0 MCHC 33.0 RDW 16.3 H Plt Count 164 Sodium 134 L Potassium 3.7 Chloride 101 Carbon Dioxide 23 Anion Gap 10 BUN 16 Creatinine 0.54 L Calcium 7.70 L The last 24 hours of labs have been reviewed. Imaging: I have reviewed the diagnostic images in the EMR. 09/10/23 08:00 CT Abd/Pelvis W/Contrast 15534 Routine Microbiology: Microbiology 09/08/23 18:20 Blood,Venous Blood Culture - Preliminary Staphylococcus aureus 09/08/23 18:15 Blood,Venous - Final 09/08/23 18:15 Blood,Venous Blood Culture - Preliminary Staphylococcus aureus 09/08/23 Unknown Perianal MRSA Screen - Final No growth of MRSA after 2 days. 09/08/23 15:46 Abdominal fluid Gram Stain - Final 09/08/23 15:46 Abdominal fluid Body Fluid Culture - Preliminary Staphylococcus aureus Medications and Comanagement: Medications reviewed separately. Entered by: Craig Rodriguez DO on 09/10/23 1230 Report Signed by: Craig Rodriguez DO on 09/10/23 1240 < > Report Signed by: on Normal [facility] Basic Metabolic Panel,Fastin nivia 09-09-2023 Anion gap [Moles/Vol] 9 mmol/L Normal 4-12 [facility] Comment on above: Performed By: #### M 140.0200 #### Main Laboratory ([facility]) [address] [place] [address] Drew Granger MD Calcium [Mass/Vol] 8.10 mg/dL Low 8.8-10.5 [facility] Comment on above: Performed By: #### M 140.0200 #### Main Laboratory ([facility]) [address] [place] [address] Drew Granger MD Chloride [Moles/Vol] 97 mmol/L Low 101-111 [facility] Comment on above: Performed By: #### M 140.0200 #### Main Laboratory ([facility]) [address] [place] [address] Drew Granger MD CO2 [Moles/Vol] 26 mmol/L Normal 21-32 [facility] Comment on above: Performed By: #### M 140.0200 #### Main Laboratory ([facility]) [address] [place] [address] Drew Granger MD Creatinine [Mass/Vol] 0.65 mg/dL Normal 0.60-1.30 [facility] Comment on above: Performed By: #### M 140.0200 #### Main Laboratory ([facility]) [address] [place] [address] Drew Granger MD GFR Calculation > 60 Normal [facility] Comment on above: Result Comment: Plaster Block Layer dontrell Kidney Disease stages by NKDF Stage eGFR I >90 II 60-89 III 30-59 IV 15-29 V <15 or dialysis AGE(years) AVERAGE GFR 50-59 93 ml/min/1.73 square meters Note:This result is normalized to 1.73 square meter body surface area. Height and weight are not factored. Performed By: #### M 140.0200 #### Main Laboratory ([facility]) [address] [place] [address] Drew Granger MD Glucose [Mass/Vol] 111 mg/dL High 70-110 [facility] Comment on above: Performed By: #### M 140.0200 #### Main Laboratory ([facility]) [address] [place] [address] Drew Granger MD Potassium [Moles/Vol] 3.8 mmol/L Normal 3.6-5.0 [facility] Comment on above: Performed By: #### M 140.0200 #### Main Laboratory ([facility]) [address] [place] [address] Drew Granger MD Sodium [Moles/Vol] 132 mmol/L Low 135-145 [facility] Comment on above: Performed By: #### M 140.0200 #### Main Laboratory ([facility]) [address] [place] [address] Drew Granger MD Urea nitrogen [Mass/Vol] 22 mg/dL High 7-20 [facility] Comment on above: Performed By: #### M 140.0200 #### Main Laboratory ([facility]) [address] [place] [id number] Drew Granger MD CBC Without Differentialon Erythrocyte distribution width (RBC) [Ratio] 16.0 % Normal 12.0-16.0 [facility] Comment on above: Performed By: #### L , L100.0000 #### Main Laboratory ([facility]) [address] [place] [address] Drew Granger MD Hematocrit (Bld) [Volume fraction] 31.8 % Low 35.0-44.0 [facility] Comment on above: Performed By: #### L , L100.0000 #### Main Laboratory ([facility]) [address] [place], [place] [address] Drew Granger MD Hemoglobin (Bld) [Mass/Vol] 10.6 g/dL Low 12.0-15.0 [facility] Comment on above: Performed By: #### L , L100.0000 #### Main Laboratory ([facility]) [address] [place], [place] [address] Drew Granger MD MCH (RBC) [Entitic mass] 28.4 pg Normal 27.5-33.0 [facility] Comment on above: Performed By: #### L , L100.0000 #### Main Laboratory ([facility]) [address] [place] [address] Drew Granger MD MCHC (RBC) [Mass/Vol] 33.3 g/dL Normal 33.0-36.0 [facility] Comment on above: Performed By: #### L , L100.0000 #### Main Laboratory ([facility]) [address] [place], [place] [address] Drew Granger MD MCV 85.4 CU MILKA Normal 80-97 [facility] Comment on above: Performed By: #### L , L100.0000 #### Main Laboratory ([facility]) [address] [place], [facility] Drew Granger MD Platelet Count 172 th/cmm Normal 150-400 [facility] Comment on above: Performed By: #### L 100.1999, L100.0000 #### Main Laboratory ([facility]) [address] [place] [address] Drew Granger MD RBC 3.73 mil/cmm Low 4.00-5.10 [facility] Comment on above: Performed By: #### L 100.1999, L100.0000 #### Main Laboratory ([facility]) [address] [place] [address] Drew Granger MD WBC 18.2 th/cmm High 4.4-10.5 [facility] Comment on above: Performed By: #### L 100.1999, L100.0000 #### Main Laboratory ([facility]) [address] [place], [place] [address] Abd/Pelvis W/Contrast 741 on 09-09-2023 CT Abd/Pelvis W/Contrast [address] [facility] Radiology Department Patient: GEOVANNY MEJÍA [address] : 1970 Sex: [place] [id number] Location: [address] [place] [address] Unit #: [id number] Ordering Phys: Ryanne Morales PA-C Exam Date: 09/10/23 Exam: CT CT Abd/Pelvis W/Contrast [id number] Result: See Report [id number] STUDY: CT ABDOMEN AND PELVIS WITH CONTRAST REASON FOR EXAM: Female, 53 years old. reassess abdominal abscess. pt had retroperitoneal abscess drain placed 09/08. abnormal wbc. iv/oral/rectal per dr pimentel. RADIATION DOSAGE (If Supplied By Facility): CTDIvol = ( ) mGy, DLP = ( ) mGycm TECHNIQUE: Transaxial images were obtained from the dome of the diaphragm to the symphysis pubis with oral contrast. Oral and rectal was administered. Sagittal and coronal images were reconstructed. Individualized dose optimization techniques were used for this CT. COMPARISON: 09/07/2023 FINDINGS: Small bilateral pleural effusions with adjacent compressive atelectasis new since the prior exam. The visualized portions of the heart are within normal limits. Normal liver. Normal gallbladder and extrahepatic biliary system. Normal spleen. Normal pancreas. Normal bilateral adrenal glands. No hydronephrosis. Normal visualized stomach. No dilated small bowel or small bowel wall thickening. No colon wall thickening. No extraluminal contrast. The appendix is visualized and appears normal. There is diffuse atherosclerotic calcification of the abdominal aorta, without a demonstrated aneurysm. Normal inferior vena cava. Left retroperitoneal pigtail drainage catheter has been slightly retracted since placement images of 09/08/2023. However, the retroperitoneal fluid collection has significantly decreased in size. The residual fluid is now more inferior bounded by the left psoas muscle laterally, iliac vessels medially and sacrum posteriorly. This is best seen on image 96 of series 3. Ocasio catheter decompresses urinary bladder. Normal abdominal wall. There are diffuse degenerative changes of the visualized lumbar spine. IMPRESSION: 1. Since 09/07/2023, favorable change. Decreased volume of left retroperitoneal fluid collection following drainage catheter insertion. Residual amorphous fluid in the lower retroperitoneum is not amenable to percutaneous drainage. 2. No large or small bowel wall thickening or extraluminal contrast. Electronically Signed: Anthony Guevara MD ([place]) at 10:20 EDT Reading Location ID and State: [place] , Service support , cc: Ryanne Morales PA-C; None Dictated by: Freddy Guevara MD on 09/10/23 1020 Transcribed by: Freddy Guevara on 09/10/23 1020 Report Signed by: Ismael MEJÍA,Freddy Nielsen on 09/10/23 1020 Normal [facility] Case Management Admissionon 09-09-2023 Case Management Admission [facility] Case Management Patient: GEOVANNY MEJÍA [address] : 1970 [place], [place] [address] Location: [facility] [phone] Unit #: [id number] Case Management Admission Evelyne Pena RN Service Date: 09/08/23 Case Mgmt Admission/Disch Plan - Patient Preferences AND Goals What is the patient's preference?: Services to be Determined Recommended acute discharge goals: Services to be Determined - Hospital Stay Day Day 1 Comment: 09/08 Met with patient in the room. Patient is from [place]. She is up here to visit her sister. Patient reporting she is normally independent. Does not have a PCP. Patient would like to use [facility] for meds. Planning to have her cousin pick her up at d/c. Contact is her cousin Ursula. Denies having LW/dPOA. [employer]: Evelyne Pena, RN - Demographics Current Diagnosis(s): Intra abdominal abscess Information Given by: Patient Primary Insurance: [employer] Family/Caregiver Contact: Ursula Relationship: shankar Does the patient have VA services?: No Does the patient have a [facility] provider?: No - Readmission Information Was the patient readmitted within the past 30 days?: No Where was the patient admitted from?: Home Does Patient have any Services in Place?: No - Healthcare Decisions Code Status Per Patient Request (Full Code, DNRCC, DNRCCA): Full code Durable Power of Cork Insulation Setter for Health Care: Unknown [facility] DNR Comfort Care: Unknown [facility] DNR Comfort Care Arrest: Unknown - Mental Status Prior Mental Status: Alert and Oriented Current Mental Status: Alert and Oriented - Living Situation Home Situation: Lives Alone Home Type: Single Family Home Levels: 1 Stairs: Yes Does the patient drive?: Yes - Support System Support System: Friends - Skilled Days Has patient been in a long-term facility in past 60 days: No - Transportation Mode of Transportation: Private Vehicle - Level of Function Prior Level of Ambulation: Independent Prior Level of Personal Care: Independent Prior Level of Driving: Independent Prior Level of Grocery Shopping: Independent Prior Level of House Keeping: Independent Prior Level of Meal Preparation: Independent - Medications What pharmacy do you use?: [facility] - Food Scarcity Screening -in the past month?: No -within the past 3 months?: No If Yes to either question, notify Manager Union.: No - Discharge Plan Discharge Plan Discussed With: Patient Understood: Yes Barriers to Discharge: Intra abdominal abscess - Admission Completed CM Admission Assessment is Completed: Yes - * L * Length of Stay LOS (Including day of Admission and Discharge): 2 LOS Score: 2 - * C * Comorbidities Select All Conditions that Apply: No Comorbidity Condition Comorbidities Total Score: 0 - * E * Emergency Department Visits # of ER visits,6mos prior to admit,excl this admits ER visit: 0 Enter this number or 4 (whichever is smaller): 0 - LACE SCORE LACE Score: 2 - ANTICIPATED DISCHARGE Anticipated Discharge Date: 09/11/23 Is a ARCHIBALD Form Required?: No Entered by: Evelyne Pena RN on 09/08/23 4230 Report Signed by: Evelyne Pena RN on 09/09/23 3536 < > Co-Signed by: on Normal [facility] Case Management Daily Noteon 09-09-2023 Case Management Daily Note [facility] Case Management Patient: GEOVANNY MEJÍA[address] : 1970 [place], [place] [address] Location: [address] [place] [address] Unit #: [id number] Case Management Daily Note Evelyne Pena RN Service Date: 09/09/23 Case Mgmt Daily Note - Plan of Care [employer] Agrees with Attending and Consult Plan: Yes - Patient Preferences AND Goals What is the patient's preference?: Services to be Determined Recommended acute discharge goals: Services to be Determined - Hospital Stay Days Day 1 Comment: 09/08 Met with patient in the room. Patient is from [place]. She is up here to visit her sister. Patient reporting she is normally independent. Does not have a PCP. Patient would like to use [facility] for meds. Planning to have her cousin pick her up at d/c. Contact is her cousin Ursula. Denies having LW/dPOA. [employer]: Evelyne Pena RN Day 2 Comment: 09/09 Met with patient in the room. Patient asking to get up and move around. PT/OT to eval. S/p L ABD drain placement. Patient [facility] to [facility] [facility] for drain mgmt if needed. Reporting she will be going to [facility] at d/c to stay with her cousin Ursula. CM spoke with patients cousin Ursula via telephone who reports she is ok with [facility] coming to her home if patient would go there at d/c. Ursula reporting patient was homeless in [place] and recently move to [place] with her sister Monique. [employer]: Evelyne Pena, RN - Transportation Mode of Transportation: Private Vehicle - Respiratory Equipment Does the patient have a nebulizer at home?: No - * L * Length of Stay LOS (Including day of Admission and Discharge): 2 LOS Score: 2 - * C * Comorbidities Select All Conditions that Apply: No Comorbidity Condition Comorbidities Total Score: 0 - * E * Emergency Department Visits # of ER visits,6mos prior to admit,excl this admits ER visit: 0 Enter this number or 4 (whichever is smaller): 0 - LACE SCORE LACE Score: 2 - ANTICIPATED DISCHARGE Anticipated Discharge Date: 09/12/23 Is a ARCHIBALD Form Required?: No Entered by: Evelyne Pnea RN on 09/09/23 1058 Report Signed by: Evelyne Pena RN on 09/09/23 1546 < > Co-Signed by: on Normal [facility] Magnesiumon 09-09-2023 Magnesium [Mass/Vol] 2.1 mg/dL Normal 1.8-2.5 [facility] Comment on above: Performed By: #### M 140.0200 #### Main Laboratory ([facility]) [address] [place] [address] Drew Granger MD Progress Note - oB hui 09-09-2023 Progress Note - Hospitalist [facility] Medical Records Patient: GEOVANNY MEJÍA [address] : 1970 [place], [place] [address] Location: [phone] Unit #: [id number] Progress Note - Hospitalist Craig Rodriguez DO Service Dt/Tm: 09/09/23 1052 ADDENDUM: Patient seen and examined. Left retroperitoneal drainage catheter has been placed by IR, and currently has purulent drainage. Patient is complaining of increased pain and requesting more pain medications. No nausea or vomiting and no fever or chills. Addendum Entered by: Craig Rodriguez DO on 09/09/23 at 1241 Addendum Signed by: Craig Rodriguez DO on 09/09/23 1241 < > Addendum Signed by: on Assessment/Plan Assessment/Plan (1) Retroperitoneal abscess: Status: Acute Code(s): K68.19 - Other retroperitoneal abscess Plan: Left sided RP abscess on CT measuring 4.7 X2.6X 4.5 cm. on IV fluids and Zosyn. Blood cultures NTD Surgery team following: IR consult to place abscess drain. Vitals stable. (2) Sciatica: Status: Acute Qualifiers: Laterality: unspecified laterality Qualified Code(s): M54.30 - Sciatica, unspecified side Code(s): M54.30 - Sciatica, unspecified side Plan: Pain meds as needed. (3) Back pain: Status: Acute Qualifiers: Back pain location: low back pain Chronicity: acute Back pain laterality: unspecified Sciatica presence: with sciatica Sciatica laterality: sciatica of right side Qualified Code(s): M54.41 - Lumbago with sciatica, right side Code(s): M54.9 - Dorsalgia, unspecified Plan: As above. Current Code Status AND Diet: 09/08/23 13:19 Code Status Routine Resuscitation Status: Full Code Code Status Order Placed: Code Status Ordered 09/08/23 at 1321 09/08/23 13:22 NPO Subjective Subjective: Patient seen and examined. Patient Status AND Estimated DC Date Patient Registration Status: Inpatient Objective Physical Exam: General: Awake, alert, oriented, no confusion.??? Intermittent left abdominal pain. HEENT: Atraumatic, normocephalic, oral mucosa is intact. Neck: No JVD, trachea is midline. Heart: Regular rate and rhythm, no murmurs or gallops. Lungs: Clear to auscultation bilaterally, no crackles, no wheezes, no rhonchi. Abdomen: Soft, nontender, nondistended, no rebound tenderness, positive bowel sounds in all quadrants. Extremities: No edema, no clubbing no cyanosis. Vascular: Good dorsalis pedis pulses bilaterally and popliteal pulses. Skin: No rashes, no discoloration, no lesions. Musculoskeletal/neuro : No focal neurological deficits.??? No motor or sensory deficits.??? Constitutional: Last Vital Signs Temp Pulse Resp BP Pulse Ox O2 Flow Rate 98.1 F 124 H 22 H 111/96 H 96 2.0 09/09/23 10:20 09/09/23 10:20 09/09/23 10:20 09/09/23 10:20 09/09/23 10:18 09/09/23 02:40 Intake and Output Intake Total 832.41 Output Total 1450 Balance -617.59 Admitting (IV Pump) Weight 83 kg Actual Weight (Kg) 83 kg Data Labs: Lactic Acid 1.1 Magnesium 2.1 The last 24 hours of labs have been reviewed. Imaging: I have reviewed the diagnostic images in the EMR. 09/08/23 13:48 Abd Right Upper Quadrant US [US Abd Right Upper Quadrant] Routine Microbiology: Microbiology 09/08/23 18:20 Blood,Venous Blood Culture - Preliminary Gram positive cocci- clusters 09/08/23 18:15 Blood,Venous - Final 09/08/23 18:15 Blood,Venous Blood Culture - Preliminary Gram positive cocci- clusters 09/08/23 Unknown Perianal MRSA Screen - Preliminary No growth of MRSA after 1 day. 09/08/23 15:46 Abdominal fluid Body Fluid Culture - Preliminary Gram positive cocci- clusters Medications and Comanagement: Medications reviewed separately. Entered by: Craig Rodriguez DO on 09/09/23 1052 Report Signed by: Craig Rodriguez DO on 09/09/23 1230 < > Report Signed by: on Normal [facility] Social Determinantson 2022 Social Determinants [facility] Case Management Patient: GEOVANNY MEJÍA. : 1970 [place], [place] [address] Location: [facility] [phone] Unit #: [id number] Social Determinants Evelyne Pena RN Service Date: 09/08/23 Social Determinants of Health - Family AND Home What is your current living situation?: I presently have a place to live Problems where you live: No known problems - Money AND Resources In past 12 months, food didn't last until money to buy more: Never true Past 12 mos, fear food will run out before able to buy more: Never true In past 12 months, lack of transportation kept you from medical appts, meetings, work, or getting things needed for daily living: No In the past 12 months, utilities in danger of being shut off: No - Social AND Emotional Health How often does anyone, including family, friends and others, physically hurt you: Never How often does anyone, including family, friends and others, insult or talk down to you: Never How often does anyone, including family, friends and others, threaten you with harm: Never How often does anyone, including family, friends and others, scream or curse at you: Never Safety Score: 4 Entered by: Evelyne Pena RN on 09/08/23 1359 Report Signed by: Evelyne ePna RN on 09/09/23 5536 < > Co-Signed by: on Normal [facility] Vancomycin Random (AUC)on Vancomycin Random (AUC) 18.3 mcg/mL Normal 15.0-40.0 [facility] Comment on above: Performed By: #### L 600.6150 #### Main Laboratory ([facility]) [address] [place] [address] Drew Granger MD Atherectomy of brachiocephal ic arteryOrdered By: David Elena on 09-08-2023 Atherectomy of brachiocephalic artery Negative Negative [facility] Comment on above: Methodology: Nucleic Acid Amplification (Polymerase Chain Reaction,PCR) Bacteria identified Cx Nom ( Body fld)Ordered By: Freddy Guevara on 09-08-2023 Body Fluid Culture Staphylococcus aureus Abnormal [facility] Body Fluid Culture Staphylococcus aureus Abnormal [facility] CBC with Differentialon 08-24 Anisocytosis Ql (Bld) 1+ Normal [facility] Comment on above: Performed By: #### L 100.2000, L100.0000 #### Main Laboratory ([facility]) [address] [place] [address] Drew Granger MD Erythrocyte distribution width (RBC) [Ratio] 15.7 % Normal 12.0-16.0 [facility] Comment on above: Performed By: #### L , L100.0000 #### Main Laboratory ([facility]) [address] [place] [address] Drew Granger MD Hematocrit (Bld) [Volume fraction] 30.6 % Low 35.0-44.0 [facility] Comment on above: Performed By: #### L , L100.0000 #### Main Laboratory ([facility]) [address] [place] [address] Drew Granger MD Hemoglobin (Bld) [Mass/Vol] 10.3 g/dL Low 12.0-15.0 [facility] Comment on above: Performed By: #### L , L100.0000 #### Main Laboratory ([facility]) [address] [place] [address] Drew Granger MD MCH (RBC) [Entitic mass] 28.6 pg Normal 27.5-33.0 [facility] Comment on above: Performed By: #### L , L100.0000 #### Main Laboratory ([facility]) [address] [place] [address] Drew Granger MD MCHC (RBC) [Mass/Vol] 33.7 g/dL Normal 33.0-36.0 [facility] Comment on above: Performed By: #### L , L100.0000 #### Main Laboratory ([facility]) [address] [place] [address] Drew Granger MD MCV 84.8 CU MILKA Normal 80-97 [facility] Comment on above: Performed By: #### L , L100.0000 #### Main Laboratory ([facility]) [address] [place] [address] Drew Granger MD Platelet Count 213 th/cmm Normal 150-400 [facility] Comment on above: Performed By: #### L 100.1999, L100.0000 #### Main Laboratory ([facility]) [address] [place] [address] Drew Granger MD RBC 3.61 mil/cmm Low 4.00-5.10 [facility] Comment on above: Performed By: #### L 100.1999, L100.0000 #### Main Laboratory ([facility]) [address] [place] [address] Drew Granger MD WBC 24.9 th/cmm High 4.4-10.5 [facility] Comment on above: Performed By: #### L 100.1999, L100.0000 #### Main Laboratory ([facility]) [address] [place], [place] [address] Peritoneal Abscess 08-24 CT Peritoneal Abscess [facility] Radiology Department Patient: GEOVANNY MEJÍA [address] : 1970 Sex: [place] [address] Location: [address] [place] [address] Unit #: [id number] Ordering Phys: Bryant Epperson APRN, CNP Exam Date: 09/08/23 Exam: CT CT Peritoneal Abscess Result: See Report [id number] CT GUIDED FLUID COLLECTION DRAINAGE WITH PIGTAIL DRAINAGE CATHETER PLACEMENT. Indication: Left retroperitoneal fluid collection with small locules of air or fat density. Consent: Informed, written consent was obtained from the patient, prior to procedure and following discussion of risks, benefits, alternatives and personnel. Patient oriented dose modulation technique utilized. Moderate sedation: Intermittent IV Versed (1 mg)and Fentanyl (50 microgram)administere d throughout the procedure with cardiopulmonary monitoring performed by myself and a dedicated interventional radiology nurse for a total of 20 minutes. PERFORMING PHYSICIAN: Kristin Guevara MD DATE OF PROCEDURE: 09/08/2023 FIELD CAPTAIN: NONE ESTIMATED BLOOD LOSS: Negligible SPECIMENS REMOVED: Sample sent to laboratory with appropriate orders. COMPLICATIONS: None Technique: Patient was positioned [id number] on the CT table. Initial imaging demonstrated amorphous retroperitoneal fluid collection on the left side with small locules of low density that could represent either air or localized fat. The skin was prepared in standard, sterile fashion. The skin was anesthetized with lidocaine and a small skin incision was made. A 5-Mosotho Yueh needle/catheter was advanced under intermittent CT guidance into the fluid collection. A J-wire passed easily. The tract was dilated with an 8-Mosotho dilator. An 8-Mosotho drainage catheter was then advanced over the wire into position and the [place] loop was locked into position. The catheter was secured to the skin with an adhesive dressing. Approximately 10 mL of cloudy, turbid fluid collected. Sample sent for anaerobic and aerobic culture/sensitivity, creatinine, and triglycerides. The tube was connected to external suction drainage bag. Follow-up imaging demonstrated decreased size of fluid collection with good positioning of the pigtail catheter. IMPRESSION: Technically successful drainage catheter insertion of left retroperitoneal fluid collection that could represent abscess versus lymphocele versus urinoma versus fat necrosis, among other causes. Electronically Signed: Anthony Guevara MD (Brooks) at 16:18 EDT Reading Location ID and State: [address] [place] [address] , Service support , [id number] CT GUIDED FLUID COLLECTION DRAINAGE WITH PIGTAIL DRAINAGE CATHETER PLACEMENT. Indication: Left retroperitoneal fluid collection with small locules of air or fat density. Consent: Informed, written consent was obtained from the patient, prior to procedure and following discussion of risks, benefits, alternatives and personnel. Patient oriented dose modulation technique utilized. Moderate sedation: Intermittent IV Versed (1 mg)and Fentanyl (50 microgram)administere d throughout the procedure with cardiopulmonary monitoring performed by myself and a dedicated interventional radiology nurse for a total of 20 minutes. PERFORMING PHYSICIAN: Kristin Guevara MD DATE OF PROCEDURE: 09/08/2023 FIELD CAPTAIN: NONE ESTIMATED BLOOD LOSS: Negligible SPECIMENS REMOVED: Sample sent to laboratory with appropriate orders. COMPLICATIONS: None Technique: Patient was positioned [id number] on the CT table. Initial imaging demonstrated amorphous retroperitoneal fluid collection on the left side with small locules of low density that could represent either air or localized fat. The skin was prepared in standard, sterile fashion. The skin was anesthetized with lidocaine and a small skin incision was made. A 5-Mosotho Yueh needle/catheter was advanced under intermittent CT guidance into the fluid collection. A J-wire passed easily. The tract was dilated with an 8-Mosotho dilator. An 8-Mosotho drainage catheter was then advanced over the wire into position and the [place] loop was locked into position. The catheter was secured to the skin with an adhesive dressing. Approximately 10 mL of cloudy, turbid fluid collected. Sample sent for anaerobic and aerobic culture/sensitivity, creatinine, and triglycerides. The tube was connected to external suction drainage bag. Follow-up imaging demonstrated decreased size of fluid collection with good positioning of the pigtail catheter. IMPRESSION: Technically successful drainage catheter insertion of left retroperitoneal fluid collection that could repr (more content not included)... Normal [facility] Comprehensive Metabolic Pane naz 09-08-2023 Albumin [Mass/Vol] 2.7 g/dL Low 3.5-5.0 [facility] Comment on above: Performed By: #### L 100.1999, L100.0000 #### Main Laboratory ([facility]) [address] [place] [address] Drew Granger MD Albumin/Globulin [Mass ratio] 0.8 {ratio} Low 1.5-2.5 [facility] Comment on above: Performed By: #### L 100, L100.0000 #### Main Laboratory ([facility]) [address] [place] [address] Drew Granger MD Alk Phos 276 IU/L High 39-118 [facility] Comment on above: Performed By: #### L 100, L100.0000 #### Main Laboratory ([facility]) [address] [place] [address] Drew Granger MD ALT [Catalytic activity/Vol] 20 U/L Normal 10-40 [facility] Comment on above: Performed By: #### L 100, L100.0000 #### Main Laboratory ([facility]) [address] [place] [address] Drew Granger MD Anion gap [Moles/Vol] 9 mmol/L Normal 4-12 [facility] Comment on above: Performed By: #### L , L100.0000 #### Main Laboratory ([facility]) [address] [place] [address] Drew Granger MD AST [Catalytic activity/Vol] 11 U/L Low 15-41 [facility] Comment on above: Performed By: #### L , L100.0000 #### Main Laboratory ([facility]) [address] [place] [address] Drew Granger MD Bili,Total 0.4 mg/dL Normal 0.2-1.0 [facility] Comment on above: Performed By: #### L , L100.0000 #### Main Laboratory ([facility]) [address] [place] [address] Drew Granger MD Calcium [Mass/Vol] 8.10 mg/dL Low 8.8-10.5 [facility] Comment on above: Performed By: #### L , L100.0000 #### Main Laboratory ([facility]) [address] [place] [address] Drew Granger MD Chloride [Moles/Vol] 98 mmol/L Low 101-111 [facility] Comment on above: Performed By: #### L 100, L100.0000 #### Main Laboratory ([facility]) [address] [place] [address] Drew Granger MD CO2 [Moles/Vol] 27 mmol/L Normal 21-32 [facility] Comment on above: Performed By: #### L , L100.0000 #### Main Laboratory ([facility]) [address] [place] [address] Drew Granger MD Creatinine [Mass/Vol] 0.63 mg/dL Normal 0.60-1.30 [facility] Comment on above: Performed By: #### L , L100.0000 #### Main Laboratory ([facility]) [address] [place] [address] Drew Granger MD GFR Calculation > 60 Normal [facility] Comment on above: Result Comment: [facility] dontrell Kidney Disease stages by NKDF Stage eGFR I >90 II 60-89 III 30-59 IV 15-29 V <15 or dialysis AGE(years) AVERAGE GFR 50-59 93 ml/min/1.73 square meters Note:This result is normalized to 1.73 square meter body surface area. Height and weight are not factored. Performed By: #### L , L100.0000 #### Main Laboratory ([facility]) [address] [place] [address] Drew Granger MD Glucose [Mass/Vol] 112 mg/dL High 70-110 [facility] Comment on above: Performed By: #### L , L100.0000 #### Main Laboratory ([facility]) [address] [place] [address] Drew Granger MD Potassium [Moles/Vol] 3.7 mmol/L Normal 3.6-5.0 [facility] Comment on above: Performed By: #### L , L100.0000 #### Main Laboratory ([facility]) [address] [place] [address] Drew Granger MD Protein [Mass/Vol] 6.0 g/dL Low 6.2-8.0 [facility] Comment on above: Performed By: #### L 100.1999, L100.0000 #### Main Laboratory ([facility]) [address] [place] [address] Drew Granger MD Sodium [Moles/Vol] 134 mmol/L Low 135-145 [facility] Comment on above: Performed By: #### L 100.1999, L100.0000 #### Main Laboratory ([facility]) [address] [address] Drew Granger MD Urea nitrogen [Mass/Vol] 24 mg/dL High 7-20 [facility] Comment on above: Performed By: #### L 100, L100.0000 #### Main Laboratory ([facility]) [address] [place] [address] Drew Granger MD Gram stain microscopyOrdered By: Freddy Guevara on 09-08-2023 Microscopic observation Gram stain Nom (Unsp spec) [facility] Microscopic observation Gram stain Nom (Unsp spec) [facility] Lactic Acidon 09-08-2023 Lactate [Moles/Vol] 1.1 mmol/L Normal 0.5-2.0 [facility] Comment on above: Performed By: #### L 401.4160 ####Main Laboratory ([facility])[address] [phone] Nivar, MD MRSA Screen,Nasal Rapidon Nasal MRSA Screen Not detected Normal NotDetected [facility] Comment on above: Result Comment: Meth odology: Nucleic Acid Amplification (Polymerase Chain Reaction,PCR) Performed By: #### L 800.5300 ####Main Laboratory ([facility])[address] [phone] Nivar, MD Manual Diffon 09-08-2023 Abs Baso Count 0 /cmm Normal 0-200 [facility] Comment on above: Performed By: #### L 100.1999, L100.0000 #### Main Laboratory ([facility]) [address] [place], [facility] Drew Granger MD Abs Eos Count 0 /cmm Normal 0-500 [facility] Comment on above: Performed By: #### L 100.1999, L100.0000 #### Main Laboratory ([facility]) [address] [place], [place] [address] Drew Granger MD Abs Lymph Count 996 /cmm Low 0221-1140 [facility] Comment on above: Performed By: #### L 100, L100.0000 #### Main Laboratory ([facility]) [address] [place], [place] [address] Drew Granger MD Abs Graham Count 249 /cmm Normal 0-800 [facility] Comment on above: Performed By: #### L , L100.0000 #### Main Laboratory ([facility]) [address] [place], [place] [address] Drew Granger MD Abs Neut Count 95504 /cmm High 1406-2764 [facility] Comment on above: Performed By: #### L , L100.0000 #### Main Laboratory ([facility]) [address] [place], [place] [address] Drew Granger MD Bands 10.0 % High 2-6 [facility] Comment on above: Performed By: #### L 100, L100.0000 #### Main Laboratory ([facility]) [address] [place], [place] [address] Drew Granger MD Lymphocytes 4.0 % Low 15-45 [facility] Comment on above: Performed By: #### L 100.1999, L100.0000 #### Main Laboratory ([facility]) [address] [place], [place] [address] Drew Granger MD Monocytes 1.0 % Low 2-10 [facility] Comment on above: Performed By: #### L 100.2000, L100.0000 #### Main Laboratory ([facility]) [address] [place] [address] Drew Granger MD Neutrophils 85.0 % High 40-70 [facility] Comment on above: Performed By: #### L 100.2000, L100.0000 #### Main Laboratory ([facility]) [address] [place] [address] Drew Granger MD Methicillin resistant Staphy lococcus aureus (MRSA) DNA detection by probe and targetOrdered By: David Elena on 09-08-2023 MRSA DNA GINETTE+probe Ql (Unsp spec) Not detected NotDetected [facility] Comment on above: Methodology: Nucleic Acid Amplification (Polymerase Chain Reaction,PCR) Peritoneal Fluid Creatinineo n 09-08-2023 Creatinine [Mass/Vol] 0.7 mg/dL Normal [facility] Comment on above: Order Comment: Comme nt fluid is from left retroperitoneum (NOT pleural) Result Comment: Audrey use protein and lipid content can vary considerably from specimen to specimen, the reference range and other method performance specifications have not been established for this body fluid. The test result must be integrated into the clinical context for interpretation. Performed By: #### L 350.2075, L350.3360 ####Main Laboratory ([facility])[address], [place] [phone] Nivar, MD Peritoneal fluid creatinine measurement (mass/volume)Ordered By: Freddy Guevara on 09-08-2023 Creatinine (Periton fld) [Mass/Vol] 0.7 mg/dL [facility] Comment on above: Because protein and lipid content can vary considerably from specimen to specimen, the reference range and other method performance specifications have not been established for this body fluid. The test result must be integrated into the clinical context for interpretation. Pharmacy Daily Noteon 2022 Pharmacy Daily Note [facility] Medical Records Patient: GEOVANNY MEJÍA [address] : 1970 [place], [place] [address] Location: [phone] Unit #: [id number] Pharmacy Daily Note Charity Adames PharmD Service Dt/Tm: 09/08/231706 Pharmacy - Patient Information Patient Information: Name: GEOVANNY MEJÍA Age/Sex: 53 F Admit Date: 09/08/23 Admit Dx: INTRA ABDOMINAL ABCESS. Vital Signs: Vital Signs - 8 hr Pharmacy Consult - Vancomycin Consulting Physician: Ankush Infectious Diagnosis: intra abdominal abscess Dosing Weight: 66kg Antibiotic Regimen: Antimicrobial: Date Initiated: Date Completed: vanc 09/08 zosyn 09/08 Assessment: Vancomycin AUC/MILKA Dosing Dosing Model: 1 compartment Goal AUC/MILKA: mg-hr/L Date: sCr: CrCL: Current Orders: Level 1: Level 2: AUC24: Dose Change: 09/08/23 0.63 88 vanc 1500mg x1 --- --- --- vanc 1000m q12h Plan: vanc 1500mg x1, then vanc 1000mg q12h Predicted AUC24: TBD mg-hr/L Next Level(s): 09/09 @ 0900 Notes: 09/08 Pt started on broad spectrum abx empirically for possible intra abdominal abscess. S/P drain placement per IR, culture received. BC ordered. Will give vanc 1500mg loading dose, followed by vanc 1000mg q12h. Level in am. -ER Data: Temperature 98.3 F Entered by: Charity Adames on 09/08/231706 Report Signed by: Charity Adames on 09/08/231912 < > Co-Signed by: on Normal [facility] Pleural fluid triglyceride m easurement (mass/volume)Ordered By: Freddy Guevara on 09-08-2023 Triglyceride (Pleur fld) [Mass/Vol] 102 mg/dL [facility] Comment on above: Because protein and lipid content can vary considerably from specimen to specimen, the reference range and other method performance specifications have not been established for this body fluid. The test result must be integrated into the clinical context for interpretation. Pleural/Thor Fld Triglycerid eson 09-08-2023 Pleural Fuild Triglycerides 102 mg/dL Normal [facility] Comment on above: Order Comment: Comme nt fluid is from left retroperitoneum (NOT pleural) Result Comment: Audrey use protein and lipid content can vary considerably from specimen to specimen, the reference range and other method performance specifications have not been established for this body fluid. The test result must be integrated into the clinical context for interpretation. Performed By: #### L 350.2075, L350.3360 ####Main Laboratory ([facility])[address], [place] [id number] Nivar, MD Serum or plasma alanine price otransferase measurement (enzymatic activity/volume)Ordered By: Willy Lechuga on 09-08-2023 ALT [Catalytic activity/Vol] 20 U/L 10-40 [facility] Serum or plasma albumin/glob ulin mass ratioOrdered By: Willy Lechuga on 09-08-2023 Albumin/Globulin [Mass ratio] 0.8 {ratio} Low 1.5-2.5 [facility] Serum or plasma alkaline wilfrid sphatase measurement (enzymatic activity/volume)Ordered By: Willy Lechuga on 09-08-2023 ALP [Catalytic activity/Vol] 276 U/L High 39-118 [facility] Serum or plasma aspartate am inotransferase measurement (enzymatic activity/volume)Ordered By: Willy Lechuga on 09-08-2023 AST [Catalytic activity/Vol] 11 U/L Low 15-41 [facility] Serum or plasma lactate tamera urement (moles/volume)Ordered By: Willy Lechuga on 09-08-2023 Lactate [Moles/Vol] 1.1 mmol/L 0.5-2.0 [facility] Serum or plasma protein tamera urement (mass/volume)Ordered By: Willy Lechuga on 09-08-2023 Protein [Mass/Vol] 6.0 g/dL Low 6.2-8.0 [facility] Serum or plasma total biliru bin measurement (mass/volume)Ordered By: Willy Lechuga on 09-08-2023 Bilirubin [Mass/Vol] 0.4 mg/dL 0.2-1.0 [facility] US Abd Right Upper Quadranto n 09-08-2023 US Abd Right Upper Quadrant [facility] Radiology Department Patient: GEOVANNY MEJÍA1 [address]. : 1970 Sex: [place] [address] Location: [phone] Unit #: [id number] Ordering Phys: Willy Lechuga MD (SCP) Exam Date: 09/08/23 Exam: US US Abd Right Upper Quadrant Result: See Report [id number] EXAM: US ABDOMEN LIMITED, RIGHT UPPER QUADRANT CLINICAL INDICATION: abdominal tension TECHNIQUE: Real-time ultrasound of the right upper quadrant with image documentation. This report was created using [employer] report generation technology. COMPARISON: CT 09/07/2023. FINDINGS: LIVER: Enlarged measuring 21 cm. There is normal echotexture. No focal hepatic lesion. No intrahepatic biliary ductal dilation. GALLBLADDER: Unremarkable. No shadowing gallstone. No gallbladder wall thickening is demonstrated. No pericholecystic fluid. Negative sonographic Mart''s sign. COMMON BILE DUCT: Unremarkable as visualized. The proximal common bile duct is within normal limits for the patient''s age. PANCREAS: Unremarkable as visualized. No focal abnormality is demonstrated in the pancreas. No pancreatic ductal dilatation. RIGHT KIDNEY: Unremarkable. There is no hydronephrosis. No shadowing calculus. No focal lesion or perinephric collection is demonstrated. IMPRESSION: 1. No gallstones or biliary obstruction. No documented ascites. 2. Hepatomegaly. No hepatic masses. Electronically Signed: Anthony Guevara MD ([place]) at 15:42 EDT Reading Location ID and State: [address] [place] [address] , Service support , cc: Willy Lechuga MD (SCP); None Dictated by: Freddy Guevara MD on 09/08/231541 Transcribed by: Freddy Guevara on 09/08/231541 Report Signed by: Ismael MEJÍA,Freddy Nielsen on 09/08/23 154 Normal [facility] VRE Screen, Rapidon 09-08-20 Fecal VRE Screen Negative Normal Negative [facility] Comment on above: Result Comment: Meth odology: Nucleic Acid Amplification (Polymerase Chain Reaction,PCR) Performed By: #### L 600.6150 #### Main Laboratory ([facility]) [address] [place] [address] ABDOMEN PELVIS WITH IV CO NTRAST ONLYon 09-07-2023 CT ABDOMEN PELVIS WITH IV CONTRAST ONLY EXAMINATION: CT ABDOMEN PELVIS WITH IV CONTRAST ONLY HISTORY: ORDERING SYSTEM PROVIDED HISTORY: Abdominal pain, acute, nonlocalized, TECHNOLOGIST PROVIDED HISTORY: Illness/Other Reason for exam: incidental finding on [facility] ct scan Encounter Type: Initial Additional signs and symptoms: n ORDERING SYSTEM PROVIDED DIAGNOSIS CODES: COMPARISON: CT of the lumbar spine from 09/07/2023. TECHNIQUE: CT examination of the abdomen and pelvis following the administration of intravenous contrast. Coronal and sagittal reformations were performed. Dose reduction techniques were achieved by using automated exposure control and/or adjustment of mA and/or kV according to patient size and/or use of iterative reconstruction technique. CONTRAST: IOPAMIDOL 370 MG IODINE/ML (76 %) INTRAVENOUS SOLUTION - 75 mL, FINDINGS: Lung bases are clear and well aerated. Mild hyperaeration and chronic changes are noted bilaterally. The gastroesophageal junction is unremarkable. The visualized heart shows no gross enlargement or pericardial effusion. The abdominal and pelvic vasculature is nonacute. The spleen is mildly prominent. Chronic calcifications are noted. The stomach, pancreas, duodenum and adrenal glands are unremarkable. The gallbladder shows no stones or inflammation. The liver shows no abnormal enhancement or ductal dilatation. The kidneys show no signs of inflammation hydronephrosis or obstructing stone. Simple cortical cysts are noted. There is a 2-3 mm nonobstructing calculus of the inferior and mid aspect of the left kidney. The right and left ureters appear unremarkable. The bladder is somewhat overly distended and otherwise unremarkable. The inguinal and ischiorectal regions are unremarkable. The anus, rectum, and adnexal areas unremarkable. The uterus cannot be identified. The vaginal cuff is unremarkable. There is moderate inflammation and fluid in the left retroperitoneal region. The starts at roughly level below the left kidney and progresses to the upper pelvis. There are few areas of slight air noted towards the inferior aspect mostly. Bulk of the density measures up the 4.7 cm in the mid craniocaudal plane by 2.6 cm in the mid AP plane by 4.5 cm in the mid transverse plane. No rim enhancement is noted but this may be an area of slight mint or perhaps developing abscess. There is moderate gaseous distention of large and small bowel loops. There is mild stool in the colon. Mesentery is unremarkable. The ileocecal junction and appendix appear to be normal. There is no free air. No additional fluid collections are noted. Obvious mass is otherwise noted. No lymphadenopathy is noted. The subcutaneous tissues are unremarkable. No anterior abdominal wall hernia is noted. Bone density is normal. Mild degenerative changes are noted throughout the lumbar spine and pelvis. IMPRESSION: 1. Moderate inflammation and fluid with small scattered air bubbles along the left retroperitoneal region. No rim enhancing fluid collection is noted. Presence of air may indicate developing abscess. The main bulk of this measures 4.7 x 2.6 x 4.5 cm. 2. Additional nonurgent findings as noted. However there is prominent distention of the bladder which may represent a neurogenic bladder. Moderate gaseous distention of the large and small bowels in the upper limits of normal. Workstation ID: [id number] Dictated by: RAIZA MENESES on [place] Sep 07, 2023 8:02:26 PM EDT Transcribed by: RAIZA MENESES on [place] Sep 07, 2023 8:02:26 PM EDT Finalized by: RAIZA MENESES on [place] Sep 07, 2023 8:02:26 PM EDT Normal [facility] Comment on above: Order Comment: Injur y/Trauma or Illness?:Illness/Other How long have you had these symptoms (acute/chronic)?:Acute Reason for exam?:incidental finding on lspine ct scan Type of Exam?:Initial Additional signs and symptoms?:n CT LUMBAR SPINE WITHOUT CONT [facility] 09-07-2023 CT LUMBAR SPINE WITHOUT CONTRAST EXAMINATION: CT LUMBAR SPINE WITHOUT CONTRAST HISTORY: ORDERING SYSTEM PROVIDED HISTORY: History of lumbar disc disease fall 1 to 2 days, now states symptoms are worse, TECHNOLOGIST PROVIDED HISTORY: Illness/Other Reason for exam: persistent pain despite steroids/pain meds given to her on 09/04 Encounter Type: Subsequent/Follow-up Additional signs and symptoms: n ORDERING SYSTEM PROVIDED DIAGNOSIS CODES: COMPARISON: September 04, 2023. TECHNIQUE: CT examination of the lumbar spine without IV contrast. Coronal and sagittal reformations were performed. Dose reduction techniques were achieved by using automated exposure control and/or adjustment of mA and/or kV according to patient size and/or use of iterative reconstruction technique. FINDINGS: The lumbar vertebral segments are again shown to be intact. Redemonstration of anterolisthesis L4 on L5 currently 4 mm. Remaining segments are appropriately aligned. I do see advanced degenerative disc disease, interspace narrowing and endplate degenerative changes L3-L4 similar to previous. I see that the pedicles and posterior elements at all levels are intact. There is severe facet arthrosis present L4-L5, and severe degenerative arthrosis of the right sacroiliac joint. Axial images acquired from T8 to the L2 level showed no signs of interval disc protrusion or high-grade canal stenosis. There is degenerative endplate spurring and interspace narrowing present at T10-11 and T11-T12. At the L2-L3 level, the degree of disc bulging appears more prominent than on the previous examination. On current examination, there is broad effacement of the ventral thecal sac with resultant yvcgxeui-gj-fgrdrw central canal, bilateral recess stenosis. Mild bilateral foraminal narrowing noted. At L3-L4, broad-based disc bulging with interspace narrowing, thickened ligamenta flava and developmentally short pedicles is again noted, with pzyyduow-ll-numukh central canal stenosis, bilateral recess stenosis, and moderate degree of foraminal narrowing. At L4-L5, facet arthrosis, redundant ligamenta flava, bulging disc again appear to be associated with severe central canal, ogpusdqy-po-bwqgmu bilateral recess stenosis, and gaqiufnl-ww-zlvwbp bilateral foraminal narrowing similar to previous. At the lumbosacral level, no new disc protrusion, central or lateral stenosis identified. At least 1 small nonobstructing 2 mm stone of the midpole left kidney is included on this study. I do identify edema in the retroperitoneum, below the level of the left renal lower pole, which is intervally developed. The inflammation in the retroperitoneum is also noted to include scattered collections of gas, and abuts the anterolateral psoas and extends inferiorly along the iliac vessels. This is perhaps not completely included on the study. IMPRESSION: 1. Multilevel degenerative disc disease as previously described including multilevel mmyqheqw-qf-oqghgb central canal stenosis reflecting a combination of discogenic changes, anterolisthesis, and developmentally short pedicles. Overall the appearance is stable compared to previous study other than slightly more prominent bulging disc at L2-L3 on current study. No new lumbar fractures. 2. Incidental nonobstructing 2 mm mid pole nephrolithiasis on the left. 3. Significant interval development of retroperitoneal inflammatory process/edema in the lower left retroperitoneum below the kidney adjacent to the psoas and iliac vessels. This is also noted to contain small collections of gas. This would suggest infectious inflammatory etiology, and may be associated with inflammatory process elsewhere in the abdomen not included on these studies. I would recommend complete CT scanning of the abdomen and pelvis with IV contrast at this time to clarify the nature of the new inflammatory process. NTP/jw Workstation ID: [id number] Dictated by: CEZAR BRICE on [place] Sep 07, 2023 5:32:07 PM EDT Transcribed by: ESTELLA SLATER on [place] Sep 07, 2023 5:39:51 PM EDT Finalized by: CEZAR BRICE on [place] Sep 07, 2023 6:26:42 PM EDT Normal [facility] Comment on above: Order Comment: Injur y/Trauma or Illness?:Illness/Other How long have you had these symptoms (acute/chronic)?:Acute Reason for exam?:persistent pain despite steroids/pain meds given to her on 09/04 Type of Exam?:Subsequent/Follow-up Additional signs and symptoms?:n CT CERVICAL SPINE WITHOUT CO NTRASTon 09-04-2023 CT CERVICAL SPINE WITHOUT CONTRAST EXAMINATION: CT CERVICAL SPINE WITHOUT CONTRAST HISTORY: Neck pain, chronic; Weak handgrip, neck pain Injury/Trauma or Illness?:Illness/Othe r 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 Coronal and sagittal reformations were performed. Dose reduction techniques were achieved by using automated exposure control and/or adjustment of mA and/or kV according to patient size and/or use of iterative reconstruction technique. FINDINGS: Prior anterior fusion and discectomy at C5-C6. Orthopedic hardware appears intact without loosening or fracture. Craniocervical and cervical vertebral alignment are anatomic. Vertebral body heights are preserved. No fracture or traumatic malalignment. Loss of intervertebral disc space height at C6-C7 and C7-T1. Moderate to severe endplate degenerative changes and uncovertebral joint hypertrophy at C6-C7. Predominantly mild endplate degenerative changes throughout the imaged spine. Multilevel facet arthropathy most significant at C7-T1. Degenerative changes result in moderate osseous spinal canal stenosis at C6-C7 and moderate to severe right and moderate left osseous neural foraminal stenosis at C6-C7. No additional levels of high-grade osseous stenosis. Intraspinal contents appear grossly normal. Small lipomatous mass superficial to the paraspinal musculature at the level of C2 measuring 1 x 2.6 x 1.8 cm (sagittal series 604: Image 52). This lesion demonstrates macroscopic fat without internal septations, nodular components or calcifications is most consistent with nonaggressive lipoma. Partial frothy opacification of the ethmoidal air cells and maxillary sinuses. No cervical lymphadenopathy. Thyroid is unremarkable. Imaged lung apices are clear. IMPRESSION: No acute osseous abnormality of the cervical spine. Prior anterior fusion and discectomy at C5-C6 without evident hardware complication. Multilevel degenerative changes most significant at C6-C7 where there is moderate osseous spinal canal stenosis and moderate to severe right osseous neural foraminal narrowing and moderate left osseous neural foraminal narrowing. Cervical spine MRI could be helpful to further evaluate. Acute sinusitis. Workstation ID: [id number] Dictated by: ROHIT RIVERA on [facility] Sep 04, 2023 7:27:26 PM EDT Transcribed by: ROHIT RIVERA on [facility] Sep 04, 2023 7:27:26 PM EDT Finalized by: ROHIT RIVERA on [facility] Sep 04, 2023 7:27:26 PM EDT Normal [facility] Comment on above: Order Comment: Injur y/Trauma or Illness?:Illness/Other How long have you had these symptoms (acute/chronic)?:Chronic Reason for exam?:chronic neck pain with wea gripping Type of Exam?:Initial Additional signs and symptoms?:see above CT LUMBAR SPINE WITHOUT CONT [facility] 09-04-2023 CT LUMBAR SPINE WITHOUT CONTRAST EXAMINATION: CT LUMBAR SPINE WITHOUT CONTRAST HISTORY: ORDERING SYSTEM PROVIDED HISTORY: Lumbar radiculopathy, symptoms persist with > 6 wks treatment, TECHNOLOGIST PROVIDED HISTORY: Illness/Other Reason for exam: chronic low back pain; weakness with gripping Encounter Type: Initial Additional signs and symptoms: see above ORDERING SYSTEM PROVIDED DIAGNOSIS CODES: COMPARISON: None TECHNIQUE: CT examination of the lumbar spine without IV contrast. Coronal and sagittal reformations were performed. Dose reduction techniques were achieved by using automated exposure control and/or adjustment of mA and/or kV according to patient size and/or use of iterative reconstruction technique. FINDINGS: T12-L1 through L2-3 levels: Mild degenerative changes are noted. L3-4: A broad-based disc protrusion, congenitally short pedicles, moderate facet arthrosis and thickening of ligament of flavum, and prominence of the dorsal epidural fat result in severe central spinal canal stenosis (5.5 mm AP diameter of the thecal sac) and moderate right greater than left foraminal stenosis. Severe degenerative loss of disc height and vacuum disc phenomenon are noted. Degenerative Schmorl's node is noted in the inferior L3 vertebral endplate. L4-5: Severe bilateral facet arthrosis is present, with 6 mm of grade 1 degenerative anterolisthesis of L4 on L5. Together with an apparent left foraminal disc protrusion and congenitally short pedicles, this results in moderate central spinal canal stenosis (6.5 mm AP diameter of the thecal sac) and moderate left and mild right foraminal stenosis. L5-S1: Severe facet arthrosis. No disc herniation or stenosis. Severe right sacroiliac joint osteoarthrosis is noted, with degenerative vacuum phenomenon, extensive subchondral sclerosis and subchondral cysts, and small marginal osteophytes. No fracture, traumatic malalignment, or other acute bony abnormality is seen. IMPRESSION: 1. L3-4: A broad-based disc protrusion, congenitally short pedicles, moderate facet arthrosis and thickening of ligament of flavum, and prominence of the dorsal epidural fat result in severe central spinal canal stenosis and moderate right greater than left foraminal stenosis. 2. L4-5: Severe facet arthrosis, with 6 mm of grade 1 degenerative anterolisthesis of L4 on L5. Together with an apparent left foraminal disc protrusion and congenitally short pedicles, this results in moderate central spinal canal stenosis and moderate left and mild right foraminal stenosis. 3. Severe right sacroiliac joint osteoarthrosis. 4. No fracture or traumatic malalignment. Workstation ID: [id number] Dictated by: DIPTI BOGGS on [place] Sep 04, 2023 7:25:51 PM EDT Transcribed by: DIPTI BOGGS on [place] Sep 04, 2023 7:25:51 PM EDT Finalized by: DIPTI BOGGS on [facility] Sep 04, 2023 7:25:51 PM EDT [facility] Comment on above: Order Comment: Injur y/Trauma or Illness?:Illness/Other How long have you had these symptoms (acute/chronic)?:Chronic Reason for exam?:chronic low back pain; weakness with gripping Type of Exam?:Initial Additional signs and symptoms?:see above XR LUMBAR SPINE 2-3 VIEWS (S TANDARD)on 08-06-2023 XR LUMBAR SPINE 2-3 VIEWS (STANDARD) EXAMINATION: XR LUMBAR SPINE 2-3 VIEWS (STANDARD) HISTORY: ORDERING SYSTEM PROVIDED HISTORY: back pain, TECHNOLOGIST PROVIDED HISTORY: Illness/Other Reason for exam: low mid back pain radating to lt sciatica down to lt foot Cancer History: n Surgery, RadiationHistory: n Encounter Type: Initial Additional signs and symptoms: n ORDERING SYSTEM PROVIDED DIAGNOSIS CODES: COMPARISON: No relevant prior study available at time of interpretation. IMPRESSION: FINDINGS/ 1. Approximately 10 mm anterolisthesis of L4 on L5 likely due to severe lower lumbar facet arthropathy. Given patient's history of left lower extremity radiculopathy, may relate to left foraminal narrowing at this level. This would be better evaluated with nonemergent MRI. 2. At least moderate degenerative disc disease from L2 through S1. 3. Mild dextrocurvature of the lumbar spine with slight right lateral listhesis of L2 on L3 on the frontal view. 4. Osteopenia. 5. No radiographic evidence of acute osseous abnormality of the lumbar spine. No significant vertebral body height loss. Workstation ID: [id number] Dictated by: MARLENE REESE on FriAug 06, 2023 5:26:17 PM EDT Transcribed by: MARLENE REESE on FriAug 06, 2023 5:26:17 PM EDT Finalized by: MARLENE REESE on FriAug 06, 2023 5:26:17 PM EDT [facility] Comment on above: Order Comment: Injur y/Trauma or Illness?:Illness/Other How long have you had these symptoms (acute/chronic)?:Acute Reason for exam?:low mid back pain radating to lt sciatica down to lt foot History of cancer?:n Surgeries, chemotherapy, or radiation?:n Type of Exam?:Initial Additional signs and symptoms?:n Vital Signs Date Time Vital Sign Value Performing Clinician Facility 02-05-2024 08:52-0400 Diastolic blood pressure 60 mm[Hg] Vásquez Clovis [facility] 02-05-2024 08:52-0400 Heart rate 58 /min Fahad Brannon [facility] 02-05-2024 08:52-0400 Mean blood pressure 76 mm[Hg] Fahad Brannon [facility] 02-05-2024 08:52-0400 Respiratory rate 14 /min Fahad Brannon [facility] 02-05-2024 08:52-0400 Systolic blood pressure 108 mm[Hg] Fahad Brannon [facility] 12-24-2023 11:19-0500 Diastolic blood pressure 72 mm[Hg] Jaron Adan MD Work Phone: [facility] 12-24-2023 11:19-0500 Heart rate 62 /min Jaron Adna MD Work Phone: [facility] 12-24-2023 11:19-0500 SaO2% (BldA) [Mass fraction] 100 % Jaron Adan MD Work Phone: [facility] 12-24-2023 11:19-0500 Systolic blood pressure 159 mm[Hg] Jaron Adan MD Work Phone: [facility] 09-18-2023 17:59-0400 Diastolic blood pressure 69 mm[Hg] Physician None Work Phone: [facility] 09-18-2023 17:59-0400 Heart rate 95 /min Physician None Work Phone: [facility] 09-18-2023 17:59-0400 SaO2% (BldA) [Mass fraction] 95 % Physician None Work Phone: [facility] 09-18-2023 17:59-0400 Systolic blood pressure 123 mm[Hg] Physician None Work Phone: [facility] 09-18-2023 17:20-0400 Body temperature 98.4 [degF] Physician None Work Phone: [facility] 09-18-2023 17:20-0400 Respiratory rate 14 /min Physician None Work Phone: [facility] 09-18-2023 03:22-0400 Inhaled oxygen flow rate 2 L/min Physician None Work Phone: [facility] 09-15-2023 14:33-0400 Body height 162.56 cm Physician None Work Phone: [facility] 09-13-2023 03:09-0400 Body mass index (BMI) [Ratio] 31.4 kg/m2 Physician None Work Phone: [facility] 09-13-2023 02:30-0400 Body weight 83 kg Physician None Work Phone: [facility] 08-28-2023 16:02-0400 Diastolic blood pressure 74 mm[Hg] Aneta Valderrama MD Work Phone: [facility] 08-28-2023 16:02-0400 Systolic blood pressure 156 mm[Hg] Aneta Valderrama MD Work Phone: [facility] 08-28-2023 15:18-0400 Body height 162.6 cm Aneta Valderrama MD Work Phone: [facility] 08-28-2023 15:18-0400 Body mass index (BMI) [Ratio] 30.38 kg/m2 Aneta Valderrama MD Work Phone: [facility] 08-28-2023 15:18-0400 Body weight 80.29 kg Aneta Valderrama MD Work Phone: [facility] 08-28-2023 15:18-0400 Heart rate 103 /min Aneta Valderrama MD Work Phone: [facility] Encounters Encounter Date Encounter Type Care Provider Facility Start: 11-25-2024 End: 11-25-2024 Telephone encounter Elvia Bhatia [employer] Work Phone: [facility] Start: 11-22-2024 End: 11-22-2024 Telephone encounter Elvia Bhatia PIPE FOREMAN Work Phone: [facility] Start: 10-23-2024 End: 10-23-2024 Telephone encounter Elvia Bhatia PIPE FOREMAN Work Phone: [facility] Start: 10-13-2024 End: 10-13-2024 ambulatory ELVIA BHATIA [facility] Start: 10-12-2024 End: 10-12-2024 Telephone encounter Elvia Bhatia PIPE FOREMAN Work Phone: [facility] Start: 10-04-2024 End: 10-04-2024 Telephone encounter Elvia Bhatia PIPE FOREMAN Work Phone: [facility] Start: 09-29-2024 End: 09-29-2024 Telephone encounter Elvia Bhatia PIPE FOREMAN Work Phone: [facility] Start: 09-20-2024 End: 09-20-2024 Telephone encounter Elvia Bhatia PIPE FOREMAN Work Phone: [facility] Start: 09-18-2024 End: 09-18-2024 Telephone encounter Elvia Bhatia PIPE FOREMAN Work Phone: [facility] Start: 09-09-2024 End: 09-09-2024 Telephone encounter Elvia Bhatia PIPE FOREMAN Work Phone: [facility] Start: 08-18-2024 End: 08-18-2024 Telephone encounter Elvia Bhatia PIPE FOREMAN Work Phone: [facility] Start: 08-11-2024 End: 08-11-2024 Telephone encounter Elvia Bhatia PIPE FOREMAN Work Phone: [facility] Start: 07-21-2024 End: 07-21-2024 ambulatory ERICK SIMENTAL [facility] Start: 2024 End: 2024 ambulatory PATEL GRAYLWELL [facility] Start: 04-21-2024 End: 04-21-2024 ambulatory [facility] Start: 03-24-2024 End: 03-24-2024 ambulatory CORKYFRAN OLEARYETT Not Available Start: 02-18-2024 End: 02-18-2024 ambulatory [facility] Start: 02-11-2024 ambulatory [facility] Start: 02-05-2024 End: 02-06-2024 ambulatory MD Zac Garrett Facility:[facility] Start: 02-05-2024 End: 02-05-2024 Pain Management Fahad Brannon [facility] Start: 01-29-2024 End: 01-29-2024 ambulatory [facility] Start: 01-21-2024 End: 01-21-2024 ambulatory [facility] Start: 12-25-2023 End: 12-25-2023 ambulatory [facility] Start: 12-24-2023 End: 12-24-2023 ambulatory LORI FERNANDO [facility] Start: 12-24-2023 End: 12-24-2023 ambulatory JARON ADAN Facility:[facility] Start: 12-24-2023 End: 12-24-2023 Subsequent hospital visit by physician Jaron Adan MD Work Phone: [facility] Comment on above: Methicillin suscepti ble Staphylococcus aureus infection as the cause of diseases classified elsewhere Start: 12-18-2023 End: 12-18-2023 ambulatory [facility] Start: 12-17-2023 End: 12-17-2023 ambulatory [facility] Start: 12-17-2023 End: 12-17-2023 ambulatory [facility] Start: 12-11-2023 End: 12-11-2023 ambulatory [facility] Start: 11-28-2023 ambulatory RAJENDRA OLIVER Facility :[facility] Start: 11-15-2023 End: 11-16-2023 Emergency department patient visit NI ELMORE [facility] Start: 11-11-2023 End: 11-11-2023 ambulatory NOT IN SYSTEM REF PROV [facility] Start: 11-04-2023 End: 11-04-2023 Subsequent hospital visit by physician Lori Fernando MD Work Phone: [facility] Comment on above: Canceled (Preferred Different Location/Provider) Start: 11-04-2023 ambulatory LORI FERNANDO Faci lity:[facility] Start: 09-18-2023 End: 10-06-2023 Evaluation and management of inpatient SURGERY - NEURO CONSULT Facility:[facility] Start: 09-08-2023 End: 09-18-2023 Evaluation and management of inpatient David K Elena Facility:[facility] Start: 09-08-2023 End: 09-18-2023 Evaluation and management of inpatient Physician None Work Phone: [address] Start: 09-07-2023 End: 09-08-2023 Emergency department patient visit PROVIDER NOT IN SYSTEM [facility] Start: 09-04-2023 End: 09-04-2023 Emergency department patient visit PROVIDER NOT IN SYSTEM [facility] Start: 09-01-2023 End: 09-01-2023 Emergency department patient visit PROVIDER NOT IN SYSTEM [facility] Start: 08-28-2023 End: 08-28-2023 ambulatory PROVIDER NOT IN SYSTEM [facility] Start: 08-28-2023 End: 08-28-2023 Office outpatient new 45 minutes Aneta Valderrama MD Work Phone: [facility] Comment on above: Spondylolisthesis of lumbar region (Primary Dx); Lumbar radiculopathy Start: 08-06-2023 End: 08-06-2023 Emergency department patient visit PROVIDER NOT IN SYSTEM [facility] Procedures Date Procedure Procedure Detail Performing Clinician Start: 04-21-2024 Follow-up visit Follow-up ERICK SIMENTAL Start: 12-24-2023 Rmvl melly cvc w/o sub q port/fagoting machine operator Jaron Adan MD Work Phone: Start: 12-24-2023 GENERAL PROCEDURE Vin Maria SULPHATE TESTER-FLOOR LAYER HELPER Work Phone: Start: 09-24-2023 Antibody screen LORI FERNANDO Comment on above: Performed By: #### X M #### [facility] ([facility]) [address] [place] [address] Start: 09-18-2023 MRI of cervical spin e with contrast Physician None Work Phone: Start: 09-17-2023 Percutaneous drainag e of abscess of peritoneum Physician None Work Phone: Start: 09-17-2023 Computed tomography of abdomen and pelvis with contrast Physician None Work Phone: Start: 09-15-2023 MRI of thoracic spin e with contrast Physician None Work Phone: Start: 09-13-2023 Bacteria identificat ion test Physician None Work Phone: Start: 09-13-2023 Blood culture for ba cteria, including anaerobic screen Physician None Work Phone: Start: 09-13-2023 Gram stain microscopy P hysician None Work Phone: Start: 09-13-2023 Physician None Work Phone: Start: 09-13-2023 Laminectomy Physician None Work Phone: Start: 09-13-2023 MRI of thoracic spin e without contrast Physician None Work Phone: Start: 09-13-2023 X-ray of lumbar spin e, single view Physician None Work Phone: Start: 10-20-2023 MRI of lumbar spine with contrast Physician None Work Phone: Start: 09-12-2023 CT of lumbar spine w ithout contrast Physician None Work Phone: Start: 09-10-2023 Computed tomography of abdomen and pelvis with contrast Physician None Work Phone: Start: 09-08-2023 Bacterial culture Physi sandra None Work Phone: Start: 09-08-2023 Gram stain microscopy P hysician None Work Phone: Start: 09-08-2023 US scan of upper abdomen Physician None Work Phone: Start: 09-08-2023 Percutaneous drainag e of abscess of peritoneum Physician None Work Phone: Abdominal hysterectomy Gagebelinda aaron Brannon Arthroscopic repair of rotator cuff Fahad Brannon Comment on above: right section Vásquez Yanira orantes History of surgical procedure on cervical spine Vásquez Brannon Plan of Treatment Date Care Activity Detail Author Start: 11-07-2024 Tetanus vaccination [facility] Start: 11-28-2023 End: 11-28-2023 Patient encounter procedure 11/28/2023 11:00 AM EST Office Visit Infectious Diseases Care [facility] [address] [place] [id number] Rajendra Oliver MD [address] [place] [id number] [facility] Start: 11-14-2023 End: 11-14-2023 Patient encounter procedure 11/14/2023 1:15 PM EST Office [facility] [address] [place] [address] Randall Wells, ED [address] [facility] [address] [place] [address] [facility] Start: 10-14-2023 End: 10-14-2023 Patient encounter procedure 10/14/2023 2:30 PM EST Office Visit [facility] [address] [place] [address] Aneta Valderrama MD [address] [place] [address] [facility] Start: 09-18-2023 [facility] Start: 09-18-2023 Patient discharge [facility] Start: 09-18-2023 Cervical arthrodesis by anterior technique Anterior Cervical Discectomy & Fusion (Not Applicable) [facility] Start: 09-18-2023 Bedrest [facility] Start: 09-18-2023 Referral to general surgeon [facility] Start: 09-17-2023 Catheterization of vein [facility] Start: 09-17-2023 [facility] Start: 09-17-2023 Assessment of fluid loss from wound [facility] Start: 09-17-2023 Maintenance of tube [facility] Start: 09-17-2023 Vital signs measurements [facility] Start: 09-16-2023 Urinary catheter care management [facility] Start: 09-15-2023 Administrative procedure [facility] Start: 09-15-2023 Urinary catheter care management [facility] Start: 09-13-2023 Disease process or condition education [facility] Start: 09-13-2023 Notification of physician [facility] Start: 09-13-2023 Oxygen therapy [facility] Start: 09-13-2023 Patient transfer [facility] Start: 09-13-2023 Physical therapy assessment [facility] Start: 09-13-2023 Application of ice collar, cap or bag [facility] Start: 09-13-2023 Encouragement of deep breathing and coughing exercises [facility] Start: 09-13-2023 Measurement of urine output [facility] Start: 09-13-2023 Measuring intake and output [facility] Start: 09-13-2023 Removal of urinary catheter [facility] Start: 09-13-2023 Advance diet as tolerated [facility] Start: 09-13-2023 Bathing patient [facility] Start: 09-13-2023 Giving encouragement to perform activity [facility] Start: 09-13-2023 Measuring intake and output [facility] Start: 09-12-2023 Consultation [facility] Start: 09-10-2023 Referral to infectious diseases physician [facility] Start: 09-09-2023 Occupational therapy assessment [facility] Start: 09-09-2023 Physical therapy procedure [facility] Start: 09-08-2023 Assessment of fluid loss from wound [facility] Start: 09-08-2023 Maintenance of tube [facility] Start: 09-08-2023 Vital signs measurements [facility] Start: 09-08-2023 Hospital admission, emergency, from emergency room [facility] Start: 09-08-2023 Referral to service [facility] Start: 09-08-2023 Vital signs measurements [facility] Start: 09-08-2023 Referral to general surgeon [facility] Start: 07-25-2023 Influenza vaccination [facility] Start: 2019 Administration of herpes zoster vaccine Zoster Vaccines (1 of 2) [facility] Start: 2019 Screening for malignant neoplasm of colon Flexible sigmoidoscopy [facility] Start: 2019 Zoster vaccine hzv live for subcutaneous use ZOSTER (SHINGLES) VACCINE (1 of 2) [facility] Start: 2014 Screening for malignant neoplasm of colon COLORECTAL CANCER SCREENING DISCUSSION [facility] Start: 2009 Lipid panel LIPID SCREENING [facility] Start: 2009 Screening for malignant neoplasm of breast [facility] Start: 1990 Screening for malignant neoplasm of cervix [facility] Start: 1987 Hepatitis C screening Hepatitis C Screening [facility] Start: 1984 HIV screening [facility] Start: 1981 Depression screening using PHQ-9 (Patient Health Questionnaire 9) score Depression Screening (PHQ-2/9) [facility] Start: 1972 History and physical examination, annual for health maintenance Wellness Visit [facility] Start: 1969 COVID-19 Vaccine (#1) COVID-19 Vaccine (#1) [facility] Start: 1969 Hepatitis B vaccination HEP B VACCINE (1 of 3 - 3-dose series) [facility] Start: 1969 Screening for malignant neoplasm of colon [facility] End: 10-27-2023 MR Cervical spine WO and W contrast IV MRI SPINE CERVICAL WITH AND WITHOUT CONTRAST Imaging Routine Bacteremia 1 Occurrences starting 10/27/2023 until 10/27/2023 [facility] Comment on above: 1 Occurrences starting 10/27/2023 until 10/27/2023 Patient Education How to Prevent Surgical Site Infections Anterior Cervical Fusion (DC) Laminectomy (DC) General Anesthesia (DC) [facility] Work Phone: Patient referral [facility] Work Phone: Rmvl melly ctr vad 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 INTERVENTIONAL RADIOLOGY End: 08-28-2024 XR Lumbar Spine Standard with Flex/Ext 4+ Views XR Lumbar Spine Standard with Flex/Ext 4+ Views Imaging Routine Spondylolisthesis of lumbar region Lumbar radiculopathy 1 Occurrences starting 08/28/2023 until 08/28/2024 [facility] Work Phone: Comment on above: 1 Occurrences starting 08/28/2023 until 08/28/2024 Payers Date Payer Category Payer Medicaid [id number] 2022 Medicare [id number] 2012 Medicare [id number] 2012 Medicare [id number] 1969 Unknown [id number] 2.16. 840.1.239080.3.579.2.903 1969 Unknown [id number] 2.16. 840.1.809889.3.579.2.903 1969 Unknown [id number] 2.16. 840.1.059323.3.579.2.903 1969 Unknown [id number] 2.16. 840.1.117928.3.579.2.903 1969 Unknown [id number] 2.16. 840.1.804520.3.579.2.903 1969 Unknown [id number] 2.16.84 0.1.269649.3.579.2.1259 1969 Unknown [id number] 2.16.8 40.1.602035.3.579.2.727 1969 Unknown [id number] 2.16. 840.1.968582.3.579.2.594 1969 Unknown [id number] 2.16. 840.1.011056.3.579.2.594 1969 Unknown [id number] 2.16. 840.1.112746.3.579.2.594 1969 Unknown [id number] 2.16. 840.1.982708.3.579.2.594 1969 Unknown [id number] 2.16. 840.1.648397.3.579.2.594 1969 Unknown [id number] 2.16. 840.1.598763.3.579.2.594 1969 Unknown [id number] 2.16. 840.1.133696.3.579.2.594 1969 Unknown [id number] 2.16.8 40.1.458359.3.579.2.1286 1969 Unknown [id number] 2.16.8 40.1.948915.3.579.2.1286 1969 Unknown [id number] 2.16.8 40.1.963893.3.579.2.1286 1969 Unknown [id number] 2.16.84 0.1.934143.3.579.2.1286 1969 Unknown [id number] 2.16.84 0.1.394130.3.579.2.1285 1969 Unknown [id number] 2.16.84 0.1.462939.3.579.2.1286 1969 Unknown [id number] 2.16.84 0.1.944254.3.579.2.128 1969 Unknown [id number] 2.16.84 0.1.908589.3.579.2.128 1969 Unknown [id number] 2.16.84 0.1.330031.3.579.2.128 1969 Unknown [id number] 2.16.84 0.1.387164.3.579.2.6 1969 Unknown [id number] 2.16.84 0.1.374032.3.579.2.1286 1923 Medicaid [id number] Self-pay Unknown [id number] 2.16.8 40.1.639548.3.579.2.139 Social History Date Type Detail Facility Start: 08-06-2023 Tobacco smoking status WVIS Never smoked tobacco [facility] Start: 08-06-2023 Tobacco use and exposure Smokeless tobacco non-user [facility] Start: 08-28-2023 Alcohol intake Ex-drinker (finding) [facility] Start: 08-06-2023 History of Social function [facility] Start: 08-06-2023 End: 09-05-2023 Tobacco use panel [facility] Start: 1970 Sex Assigned At Not on file [facility] Start: 09-13-2023 End: 09-13-2023 Tobacco smoking status NHIS Ex-smoker (finding) [facility] Start: 09-13-2023 Socially/Occasionally [facility] Start: 09-13-2023 Cigarettes [facility] Start: 09-13-2023 < 1 pack per day [facility] Start: 09-08-2023 Nicotine [facility] Start: 1970 Sex Assigned At Female [facility] Start: 03-24-2024 Tobacco smoking status NHIS Tobacco smoking consumption unknown [facility] Start: 02-05-2024 Tobacco smoking status Heavy tobacco smoker (finding) [facility] NEGATED: Highlighted row [facility] Medical Equipment Procedure Code Equipment Code Equipment Origin al Text Equipment Identifier Dates 6fr 2 Lumen Sharonda r Injectable Microintroducer Tray Catheter - [id number] ([id number], [id number] FDA Start: 09-30-2023 Comment on above: Description: Implant time-out completed by intra-procedural staff including this RN, it service technician, and performing physician. The following was completed. RN reads out loud implant type/size/ expiration date, and verbalizes location. Holds package up to tech to visually verify implant details. Tech reads back package details MD verifies verbally correct implant Time-out was completed for each coil during embolization, if applicable. Goals Date Patient Goal Desired Activity /State Functional Status Date Assessment Result Facility 02-05-2024 Functional Status N/A [facility] 09-14-2023 Functional status Home Situation Lives Al one [facility] Work Phone: 09-08-2023 Functional status Yes [facility] Work Phone: Mental Status Date Assessment Result Facility 09-08-2023 Cognitive function Oriented to P erson, Place and Time [facility] Work Phone: Clinical Notes 08-28-2023 to 11-25-2024 Telephone Encounter - Elvia Bhatia NP - 11/25/2024 12:23 PM ESTTelephone Encounter - Elvia Bhatia NP - 11/25/2024 12:23 PM ESTTelephone Encounter - Elvia Bhatia NP - 11/22/2024 11:39 AM EST Note Date & Type Note Facility 11-25-2024 Telephone encounter Note Fentanyl increased to 75 mcg patch, 50 mcg patch dc'd. [facility] 11-25-2024 Miscellaneous Notes Fentanyl increased to 75 mcg patch, 50 mcg patch dc'd. documented in this encounter [facility] 11-22-2024 Telephone encounter Note Requested Prescriptions Signed Prescriptions Disp Refills oxyCODONE (Roxicodone) 5 MG immediate release tablet 120 tablet 0 Sig: Take 1 tablet (5 mg) by mouth every 6 (six) hours if needed for severe pain Authorizing Provider: ELVIA BHATIA Refill for oxycodone is sent for this [place] patient today. [facility] 11-22-2024 Miscellaneous Notes Requested Prescriptions Signed Prescriptions Disp Refills oxyCODONE (Roxicodone) 5 MG immediate release tablet 120 tablet 0 Sig: Take 1 tablet (5 mg) by mouth every 6 (six) hours if needed for severe pain Authorizing Provider: ELVIA BHATIA Refill for oxycodone is sent for this [place] patient today. documented in this encounter [facility] 11-22-2024 Telephone encounter Note Requested Prescriptions Signed Prescriptions Disp Refills fentaNYL (DURAGESIC) 50 MCG/HR 10 patch 0 Sig: Place 1 patch over 72 hours on the skin every 3rd (third) day Authorizing Provider: ELVIA BHATIA Refill of fentanyl is sent for this [place] patient today. [facility] 11-22-2024 Miscellaneous Notes Requested Prescriptions Signed Prescriptions Disp Refills fentaNYL (DURAGESIC) 50 MCG/HR 10 patch 0 Sig: Place 1 patch over 72 hours on the skin every 3rd (third) day Authorizing Provider: ELVIA BHATIA Refill of fentanyl is sent for this [place] patient today. documented in this encounter [facility] 10-23-2024 Telephone encounter Note Requested Prescriptions Signed Prescriptions Disp Refills fentaNYL (DURAGESIC) 50 MCG/HR 10 patch 0 Sig: Place 1 patch over 72 hours on the skin every 3rd (third) day Authorizing Provider: ELVIA BHATIA ALPRAZolam (Xanax) 0.5 MG tablet 60 tablet 2 Sig: Take 1 tablet (0.5 mg) by mouth every 12 (twelve) hours Authorizing Provider: ELVIA BHATIA Nurse Edda from [place] called to notify that the pt is increasingly drowsy and hard to awaken today. Her Fentanyl patch is decreased to 50 mcg today, down from 75 mcg/hr. Her alprazolam is is decreased to 0.5 mg q 12, down from 1 mg q 12. Her oxycodone is decreased from 10 mg to 5 mg q 6 prn for breakthrough pain. [facility] 10-23-2024 Miscellaneous Notes Requested Prescriptions Signed Prescriptions Disp Refills fentaNYL (DURAGESIC) 50 MCG/HR 10 patch 0 Sig: Place 1 patch over 72 hours on the skin every 3rd (third) day Authorizing Provider: ELVIA BHATIA ALPRAZolam (Xanax) 0.5 MG tablet 60 tablet 2 Sig: Take 1 tablet (0.5 mg) by mouth every 12 (twelve) hours Authorizing Provider: ELVIA BHATIA from [place] called to notify that the pt is increasingly drowsy and hard to awaken today. Her Fentanyl patch is decreased to 50 mcg today, down from 75 mcg/hr. Her alprazolam is is decreased to 0.5 mg q 12, down from 1 mg q 12. Her oxycodone is decreased from 10 mg to 5 mg q 6 prn for breakthrough pain. documented in this encounter [facility] 10-12-2024 Telephone encounter Note Rx for oxycodone is sent for this [place] patient. Dx of G89.4, F45.42, R52. [facility] 10-12-2024 Miscellaneous Notes Rx for oxycodone is sent for this [place] patient. Dx of G89.4, F45.42, R52. documented in this encounter [facility] 10-04-2024 Telephone encounter Note Rx for oycodone 10 mg TID prn is sent today, #90 tabs 0 refills. For This [place] patient. [facility] 10-04-2024 Miscellaneous Notes Rx for oycodone 10 mg TID prn is sent today, #90 tabs 0 refills. For This [place] patient. documented in this encounter [facility] 09-29-2024 Telephone encounter Note Rx for Fentanyl patch is sent, 75 mcg for this [place] patient. [facility] 09-29-2024 Miscellaneous Notes Rx for Fentanyl patch is sent, 75 mcg for this [place] patient. documented in this encounter [facility] 09-20-2024 Telephone encounter Note Rx for fentanyl patch is sent for this [place] patient today. The routine oxycodone will be discontinued when the fentanyl patch starts. She will continue with the prn dose. Plan to taper this down also. [facility] 09-20-2024 Miscellaneous Notes Rx for fentanyl patch is sent for this [place] patient today. The routine oxycodone will be discontinued when the fentanyl patch starts. She will continue with the prn dose. Plan to taper this down also. documented in this encounter [facility] 09-18-2024 Telephone encounter Note GDR for alprazolam was completed on 09/09/24, this caused increased anxiety and depression, med increased back to 1 mg bid, rx is sent today. Dose reduction of oxycodone caused increased pain/debilitating symptoms. She was not able to independently perform ADL's, go to the DR for meals dt pain. 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 We will add a routine dose and change the PRN to q 6 hrs. Will plan to attempt to decrease the PRN dose next month. [facility] 09-18-2024 Miscellaneous Notes GDR for alprazolam was completed on 09/09/24, this caused increased anxiety and depression, med increased back to 1 mg bid, rx is sent today. Dose reduction of oxycodone caused increased pain/debilitating symptoms. She was not able to independently perform ADL's, go to the DR for meals dt pain. 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 We will add a routine dose and change the PRN to q 6 hrs. Will plan to attempt to decrease the PRN dose next month. documented in this encounter [facility] 09-09-2024 Telephone encounter Note Rx for alprazolam is sent for this [place] patient. [facility] 09-09-2024 Miscellaneous Notes Rx for alprazolam is sent for this [place] patient. documented in this encounter [facility] 08-18-2024 Telephone encounter Note Rx for oxycodone 10 mg sent, # 180 tablets for this [place] patient. [facility] 08-18-2024 Miscellaneous Notes Rx for oxycodone 10 mg sent, # 180 tablets for this [place] patient. documented in this encounter [facility] 08-11-2024 Telephone encounter Note Rx for a 30 day supply of oxycodone is sent for this [place] patient today. [facility] 08-11-2024 Miscellaneous Notes Rx for a 30 day supply of oxycodone is sent for this [place] patient today. documented in this encounter [facility] 07-21-2024 Note Chief Complaint: low back pain 07/21/2024 History of spine infection. Patient able to walk with walker since late April. Patient has numbness on right side from waist down, but and pain in the bones . 04/21/2024 History of spine infection, MSSA bacteremia and epidural abscess vertebral osteomyelitis, surgery in [facility] and transferred later to [facility], advised no surgery. 3 months course of iv oxacillin HPI When did this problem begin: Long time Timing/frequency of occurrence: Constant Pain description: numbness Pain severity: 7 Radicular pain: no Numbness/tingling: Yes Weakness:improving What improves symptoms: No What makes symptoms worse: No Gait disturbance: No Fine hand dexterity problem: No Previous treatment for this problem: drainage of epidural abscess ROS Constitutional: Fatigue: No Weight loss: No Fever: No Chills: No Past Surgical History: Procedure Laterality Date BACK SURGERY SECTION, CLASSIC HYSTERECTOMY NECK SURGERY SHOULDER SURGERY Right No past medical history on file. Past Surgical History: Procedure Laterality Date BACK SURGERY SECTION, CLASSIC HYSTERECTOMY NECK SURGERY SHOULDER SURGERY Right Allergies Allergen Reactions Levofloxacin Blisters Current Outpatient Medications: acetaminophen (Tylenol) 325 mg tablet, Take 650 mg by mouth every 6 (six) hours if needed for mild pain (1-3 pain score)., Disp: , Rfl: albuterol 90 mcg/actuation inhaler, Inhale 1-2 puffs every 6 (six) hours if needed., Disp: , Rfl: ALPRAZolam (Xanax) 1 mg tablet, Take 1 mg by mouth if needed in the morning, at noon, and at bedtime for anxiety., Disp: , Rfl: ammonium lactate (Lac-Hydrin) 12 % lotion, rub in to affected area well, Disp: , Rfl: baclofen (Lioresal) 5 mg tablet, Take 5 mg by mouth in the morning, at noon, and at bedtime., Disp: , Rfl: benzonatate (Tessalon) 200 mg capsule, Take 200 mg by mouth if needed in the morning, at noon, and at bedtime., Disp: , Rfl: bisacodyl (Dulcolax, bisacodyl,) 10 mg suppository, Insert 10 mg into the rectum if needed each day for constipation., Disp: , Rfl: cholecalciferol (Vitamin D-3) 25 MCG (1000 UT) capsule, Take 25 mcg by mouth in the morning., Disp: , Rfl: cyclobenzaprine (Flexeril) 5 mg tablet, Take 5 mg by mouth if needed in the morning, at noon, and at bedtime., Disp: , Rfl: diclofenac sodium 1 % kit, Apply topically., Disp: , Rfl: docusate sodium (Colace) 100 mg capsule, Take 100 mg by mouth in the morning and at bedtime., Disp: , Rfl: doxycycline (Monodox) 100 mg capsule, Take 1 capsule (100 mg) by mouth two times daily. Take with at least 8 ounces (large glass) of water, do not lie down for 30 minutes after, Disp: 720 capsule, Rfl: 0 escitalopram (Lexapro) 20 mg tablet, Take 10 mg by mouth in the morning., Disp: , Rfl: ferrous sulfate 325 (65 Fe) MG tablet, Take 65 mg by mouth with breakfast., Disp: , Rfl: furosemide (Lasix) 20 mg tablet, Take 20 mg by mouth if needed each day., Disp: , Rfl: gabapentin (Neurontin) 400 mg capsule, Take 400 mg by mouth in the morning and at bedtime., Disp: , Rfl: gabapentin (Neurontin) 600 mg tablet, Take 600 mg by mouth three times daily., Disp: , Rfl: ipratropium-albuteroL (Combivent Respimat) 20-100 mcg/actuation inhaler, Inhale 1 puff in the morning, noon, at afternoon, at bedtime,., Disp: , Rfl: lidocaine adhesive patch,medicated patch, Apply 1 patch topically in the morning., Disp: , Rfl: melatonin 3 mg tablet, Take by mouth., Disp: , Rfl: methocarbamol (Robaxin) 500 mg tablet, Take 500 mg by mouth in the morning, at noon, in the evening, and at bedtime., Disp: , Rfl: nabumetone (Relafen) 500 mg tablet, TAKE 1 TABLET (500 MG TOTAL) BY MOUTH TWICE A DAY, Disp: , Rfl: naloxone (Narcan) 4 mg/0.1 mL nasal spray, SPRAY 1 SPRAY INTO 1 NOSTRIL FOR KNOWN OR SUSPECTED OPIOD OVERDOSE, MAY REPEAT IN 2-3 MIN IF WORSENS, Disp: , Rfl: nitroglycerin (Nitrostat) 0.4 mg SL tablet, Place 0.4 mg under the tongue every 5 (five) minutes if needed., Disp: , Rfl: omega-3 acid ethyl esters (Lovaza) 1 gram capsule, Take 1 g by mouth in the morning and at bedtime., Disp: , Rfl: ondansetron (Zofran) 4 mg tablet, Take 4 mg by mouth every 8 (eight) hours if needed for nausea or vomiting., Disp: , Rfl: oxyCODONE (Roxicodone) 10 mg immediate release tablet, Take 15 mg by mouth if needed in the morning, at noon, in the evening, and at bedtime., Disp: , Rfl: oxyCODONE-acetaminophen (Percocet) 10-325 mg tablet, Take 1 tablet by mouth., Disp: , Rfl: pantoprazole (ProtoNix) 40 mg EC tablet, Take 40 mg by mouth before breakfast. Do not crush, chew, or split., Disp: , Rfl: PARoxetine (Paxil) 20 mg tablet, , Disp: , Rfl: polyethylene glycol (Miralax) 17 gram/dose powder, Take 17 g by mouth in the morning., Disp: , Rfl: tiotropium (Spiriva) 18 mcg inhalation capsule, Place 18 mcg into inhaler and inhale in the morning., Disp: , Rfl (more content not included)... [facility] 2024 Note Infectious Diseases - Clinic note - Please contact us via [employer] during business hours. If no response in 15 min, call / page through the pulp machine operator Division of Infectious Diseases [employer] for communication via [facility] during business hours (8 AM - 5 PM). If I do not respond within 30 minutes, please call the answering service. Patient name: Geovanny Mejía Patient Today's Date and Time: 2024, 3:42 PM PCP: Dr. Demetri Liu Residing: [facility] Impression/Recommendations : Cervical C6-C7, Thoracic T4-T11, Lumbar L3-L5 osteomyelitis Cervical hardware Paraplegia, resolving S/p washout Completed 3 month course of IV Nafcillin Continue PO Doxycycline 100mg BID for lifelong suppression Hx MSSA bacteremia Hx epidural abscess Get a CRP and ESR today. Pt doing well. No issues at this time. Plan as above. Continue to monitor for s/s of infection. Repeat CRP every 3 months Follow Up: 1 year Subjective Geovanny Mejía is a 54 y.o.-year-old female. This is a pt who was diagnosed with MSSA bacteremia on 09/07/2023 and epidural abscess vertebral osteomyelitis sp I&D and hemilaminectomy on 09/13/2023 who completed IV oxacillin for 3 month managed by [facility] ID group until 12/19/2023. Patient was seen by Ortho spine who recommended no surgery. Repeat MRI lumbar and Thoracic spine on 11/11/23 showed persistent abnormalities in the lumbar and thoracic spine area. Patient was referred to Dr Ojeda and seen on 12/11/23. Since last visit patient completed IV oxacillin for 3 months and transitioned to doxycycline for lifelong suppression; Patient is presentng to ID clinic for a follow-up visit from [facility]. Patient continues Doxycycline 100 mg BID and denies any side effects. Today, the patient is completing a follow up. She is currently residing at [facility] and is present with an aide from the facility. She reports doing well overall. She is starting to get some movement back in her RLE. Complaints of nausea and vomiting 1-2 times a month, otherwise tolerating Doxycycline without issues. Denies fever, chills, neck/back pain, new numbness/tingling, abdominal pain, and diarrhea. History reviewed. No pertinent past medical history. Objective Physical Examination : BP 126/84 (BP Location: Right arm, Patient Position: Sitting, BP Cuff Size: Adult) Pulse 75 Temp 37.1 ???C (98.7 ???F) (Oral) Ht 1.626 m (5' 4 ) Wt 77.1 kg (170 lb) SpO2 98% BMI 29.18 kg/m??? Temperature Range: Temp: 37.1 ???C (98.7 ???F) General Appearance: Awake, alert, and in no apparent distress Eyes: Sclera anicteric; conjunctivae pink ENT: Oropharynx clear, without erythema, exudate, or thrush. Neck: Supple, without lymphadenopathy. Pulmonary/Chest: Clear to auscultation, without wheezes, rales, or rhonchi Cardiovascular: Regular rate without murmurs, rubs, or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 Location: [address] [place] [address] Unit #: [id number] Progress Note - Antibiotics Jaret Ramírez (ID) Service Dt/Tm: 09/15/231919 Antibiotic Note Results: The patient's postop from neurosurgery. She has had a abdominal abscess with Staphylococcus aureus which has seeded the bloodstream and the spine with epidural abscess appreciated as described. The drainage from the back has grownStaphylococcus aureus as well. The patient has been seen and evaluated for the problem as noted and according to the neurosurgical service the repeat MRI showsthat the fluid in the back has reaccumulated. I reviewed the patient's case further. She has had back problems for quite some time according to her history. The patient has been seen at the facility in [place], [place] where she was noted to have significant back pain and discomfort. An operation was recommended at that time. It was decided to transfer her care to a neurological/neurosurgical service in [place], [place]. The patient was deciding whether or not to have surgery at that time when this problem occurred. This was according to her history I do not have medical records from any of these institutions to correlate the findings. Temperature 98.7 F Physical Exam General Appearance Alert,Resting Comfortably,Cooperative Vital Signs - 24 hr Temp Pulse Resp BP Pulse Ox 09/15/23 19:12 98 18 125/75 95 09/15/23 18:50 72 16 121/69 93 09/15/23 15:47 96 16 166/66 H 98 09/15/23 10:55 90 18 109/58 L 98 09/15/23 10:51 16 98 09/15/23 08:22 15 97 09/15/23 05:04 20 96 09/15/23 02:20 20 97 09/15/23 02:17 99 20 121/70 97 09/15/23 02:17 20 96 09/15/23 01:05 20 93 09/15/23 01:01 95 20 109/64 93 09/15/23 00:29 16 95 09/14/23 22:04 16 95 09/15/23 15:51 96 18 122/66 09/15/23 12:55 75 16 111/61 09/15/23 08:03 98.7 F 94 15 122/61 96 09/15/23 06:26 98.2 F 91 20 113/66 95 09/15/23 02:00 99 114/68 09/15/23 01:15 93 106/80 94 09/15/23 02:15 97 121/70 09/15/23 01:00 97 109/64 93 09/15/23 00:55 98.8 F 93 16 119/68 93 09/14/23 20:00 98.2 F 92 16 94/54 L 95 Eyes EOMI,PERRLA ENT Normal Inspection,Pharynx Normal,Oral Mucosa Moist Skin Color Normal,Warm, Dry Cardiovascular Irregular Rhythm Lungs Abdomen Soft - Abscess drain in place draining purulent fluid,Tender to palpation,Other Neurologic A & O x3 - Bilateral paraparesis, with intact sensation of the left lower extremity, however no sensation of the right lower extremity up to the upper thigh region. The patient has a no Babinski's. Psychological Mood & Affect Normal Lab Results WBC 19.9 th/cmm (4.4-10.5) H 09/15/23 01:19 BUN 15 mg/dL (7-20) 09/15/23 01:19 Creatinine 0.55 mg/dL (0.60-1.30) L 09/15/23 01:19 09/13/23 16:06 Blood,Venous Blood Culture - Preliminary No growth after 2 days, cultures held 5 days. 09/13/23 15:55 Blood,Venous Blood Culture - Preliminary No growth after 2 days, cultures held 5 days. 09/13/23 05:00 Back Gram Stain - Final 09/13/23 05:00 Back Wound Culture - Preliminary Staphylococcus aureus Assessment/Plan (1) Intra-abdominal abscess: Status: Acute (2) Staphylococcus aureus septicemia: Status: Acute (3) Staphylococcus aureus infection: Status: Acute (4) Spinal epidural abscess: Status: Acute Plan * The patient is on cefazolin for Staphylococcus aureus septicemia. The repeat blood cultures have been negative x48 hours. * Unfortunate the patient has seeded the thoracic spine where she has had previous problems. The patient was noted with a thoracic spinal epidural abscess. The patient underwent hemilaminectomy T4-5 with evacuation of dorsal spinal epidural abscess; hemilaminectomy with transpedicular decompression T10 on the left side with evacuation of ventral spinal epidural abscess. * At this point of source is not under control and there may be additional foci. The last scan revealed residual amorphous fluid in the lower retroperitoneum is not amenable to percutaneous drainage . * I recommend that the patient be given serious consideration for surgical intervention to eradicate the infection in the abdomen to prevent further seeding. I am not certain the patient has cleared the infection from the initial point of source which was the abdominal abscess. * The patient has seeded the spine. With the problems as noted the patient is going to need more intervention, I suggest transfer. TE 00:30 Entered by: Jaret Ramírez (ID)MD on 09/15/231919 Report Signed by: Jaret Ramírez MD (ID) on 10/14/232012 <<Signature on File>> <Electronically signed by Jaret Ramírez (ID) > Report Signed by: on [facility] Work Phone: 1(526) 482-969811-21-2023 Progress note Author Charity Adames [facility] October 14, 2023 7:24am Note Date/Time September 13, 2023 2 :24pm [facility] Medical Records Patient: GEOVANNY MEJÍA. : 1970 [place] [address] Location: [address] [place] [address] Unit #: [id number] Pharmacy Daily Note [facility] Service Dt/Tm: 09/13/23 1405 Pharmacy - Patient Information Patient Information: Name: GEOVANNY MEJÍA Age/Sex: 53 F Admit Date: 09/08/23 Admit Dx: INTRA ABDOMINAL ABCESS. Vital Signs: Vital Signs - 8 hr Temp Pulse Resp BP Pulse Ox O2 Flow Rate 09/13/23 08:35 81 18 96/53 L 95 4.5 09/13/23 08:20 82 14 97/54 L 94 5 09/13/23 08:05 82 13 100/63 98 10 09/13/23 07:50 84 16 98/61 95 10 09/13/23 07:35 84 20 90/54 L 94 10 09/13/23 07:20 82 27 H 109/66 93 10 09/13/23 07:15 86 20 114/61 95 10 09/13/23 07:10 82 19 127/71 95 10 09/13/23 07:05 98.4 F 82 29 H 117/69 93 10 09/13/23 07:15 81 24 H 95 09/13/23 09:23 4.0 09/13/23 09:08 93 3 09/13/23 12:12 97.5 F L 85 16 105/64 93 2.0 09/13/23 10:32 97.7 F 78 109/63 93 2.0 09/13/23 10:32 97.7 F 77 113/64 92 2.0 09/13/23 12:12 97.5 F L 85 16 105/64 93 2.0 09/13/23 09:31 97.7 F 75 16 121/78 96 4.0 09/13/23 09:20 77 16 121/78 91 4.0 09/13/23 09:47 76 16 121/78 89 4.0 09/13/23 09:48 77 16 110/76 90 4.0 09/13/23 10:00 74 106/68 93 09/13/23 10:15 75 114/66 93 09/13/23 10:30 71 113/64 09/13/23 10:32 97.7 F 71 113/64 2.0 09/13/23 09:03 97.7 F 79 104/54 L 95 09/13/23 09:17 97.7 F 76 116/74 95 09/13/23 09:20 97.7 F 79 16 116/74 95 4.0 Pharmacy Consult - Vancomycin Consulting Physician: Ankush Infectious Diagnosis: intra abdominal abscess Dosing Weight: 66kg Antibiotic Regimen: Antimicrobial: Date Initiated: Date Completed: Vanc 09/12 Cefazolin 09/10 xvanc 09/08 09/09 xzosyn 09/08 09/10 Assessment: Vancomycin AUC/MILKA Dosing Dosing Model: 1 compartment Goal AUC/MILKA: mg-hr/L Date: sCr: CrCL: Current Orders: Level 1: Level 2: AUC24: Dose Change: 09/13/23 0.72 77.13 Vanc 1000mg q12h 6 --- 347.1 No Change 09/12/23 0.57 97.43 --- --- --- --- Vanc 1500mg x1 then 1000mg q12h 09/08/23 0.63 88 vanc 1500mg x1 --- --- --- vanc 1000m q12h Plan: Vancomycin 1000 mg q12h Predicted AUC24: TBD mg-hr/L Next Level(s): 09/14 @ 0400 Notes: 09/13 WBC 33, afebrile. SCr bumped slightly, continue 1-compartment dosing model at this time. Blood cultures growing MSSA, awaiting ID recommendations. First maintenance dose was delayed today due to patient going back to surgery this AM for epidural spinal abscess. Will adjust times of maintenance doses for closer to q12h interval. Plan for another random level to be drawn with AM labs to guide further dosing. - LB 09/12 Patient with retroperitoneal abscess. Vancomycin restarted for gram positive cocci preliminary in blood cultures collected 09/11 and worsening leukocytosis. Previous cultures from 09/08 resulting in MSSA. Patient febrile 09/11 with tmax 100.7 but has been afebrile since. Renal function has remained stable. Will give vanc 1500mg loading dose, followed by vanc 1000mg q12h maintenance dose. Will obtain level 09/13 @ 0900 following first maintenance dose. -[facility] 09/08 Pt started on broad spectrum abx empirically for possible intra abdominal abscess. S/P drain placement per IR, culture received. BC ordered. Will give vanc 1500mg loading dose, followed by vanc 1000mg q12h. Level in am. -ER Data: Temperature 97.5 F Lab Results 09/11/23 09/12/23 09/13/23 04:58 03:59 08:51 WBC 29.8 H 31.4 H 33.0 H BUN 15 17 21 H Creatinine 0.55 L 0.57 L 09/13/23 09/13/23 08:51 08:51 WBC BUN 21 H Creatinine 0.74 0.72 Microbiology 09/11/23 13:35 Blood,Venous - Pending 09/11/23 13:35 Blood,Venous Blood Culture - Preliminary Staphylococcus aureus 09/11/23 13:40 Blood,Venous - Final 09/11/23 13:40 Blood,Venous Blood Culture - Preliminary Staphylococcus aureus 09/08/23 15:46 Abdominal fluid Gram Stain - Final 09/08/23 15:46 Abdominal fluid Body Fluid Culture - Final Staphylococcus aureus 09/08/23 18:20 Blood,Venous - Final Test not indicated 09/08/23 18:20 Blood,Venous Blood Culture - Final Staphylococcus aureus Staphylococcus epidermidis 09/08/23 18:15 Blood,Venous - Final 09/08/23 18:15 Blood,Venous Blood Culture - Final Staphylococcus aureus 09/08/23 Unknown Perianal MRSA Screen - Final No growth of MRSA after 2 days. Entered by: Renae Duenas on 09/13/23 1405 Report Signed by: Renae Duenas on 10/13/23 1713 <<Signature on File>> < 8819 <<Signature on File>> <Electronically signed by Charity Adames PharmD> [facility] Work Phone: 1(280) 571-691211-20-2023 Progress note Author Jaret Ramírez (ID) [facility] October 13, 2023 7:43pm Note Date/Time September 13, 2023 3 :24pm [facility] Medical Records Patient: GEOVANNY MEJÍA. : 1970 [place], [place] [address] Location: [facility] [phone] Unit #: [id number] Progress Note - Antibiotics Jaret Ramírez (ID) Service Dt/Tm: 09/13/23 1523 Antibiotic Note Results: The patient is continuing to have problems. The patient has abdominal abscess with Staphylococcus aureus. Patient has septicemia stemming from the abscess. In addition to this the patient has ?Extensive abnormal paravertebral signal mayrepresent phlegmon. This appears to involve almost the entirety of the thoracic spine from approximately T2 to T11. The patient was taken to surgery earlier this morning as noted Temperature 97.8 F Physical Exam General Appearance Alert - resting, painful,Other Eyes EOMI Skin Color Normal,Warm, Dry Cardiovascular Regular Rate and Rhythm,S1 S2 Lungs clear Abdomen Soft - mildly,Tender to palpation Neurologic Post op spontaneous movement of UE . 0/4 power in BLE. Psychological Mood & Affect Normal Lab Results WBC 33.0 th/cmm (4.4-10.5) H 09/13/23 08:51 BUN 21 mg/dL (7-20) H 09/13/23 08:51 BUN 21 mg/dL (7-20) H 09/13/23 08:51 Creatinine 0.72 mg/dL (0.60-1.30) 09/13/23 08:51 Creatinine 0.74 mg/dL (0.60-1.30) 09/13/23 08:51 09/13/23 05:00 Back Gram Stain - Final 09/11/23 13:35 Blood,Venous Blood Culture - Preliminary Staphylococcus aureus 09/11/23 13:40 Blood,Venous - Final 09/11/23 13:40 Blood,Venous Blood Culture - Preliminary Staphylococcus aureus 09/08/23 15:46 Abdominal fluid Gram Stain - Final 09/08/23 15:46 Abdominal fluid Body Fluid Culture - Final Staphylococcus aureus 09/08/23 18:20 Blood,Venous - Final Test not indicated 09/08/23 18:20 Blood,Venous Blood Culture - Final Staphylococcus aureus Staphylococcus epidermidis Assessment/Plan (1) Intra-abdominal abscess: Status: Acute (2) Staphylococcus aureus septicemia: Status: Acute (3) Staphylococcus aureus infection: Status: Acute (4) Spinal epidural abscess: Status: Acute Plan * Suggest continue cefazolin for now. Vancomycin was restarted last night because the patient's repeat blood culture revealed a positive specimen. This was unnecessary as the problem is not acquisition of resistance. The problem is lack of point of source control. * I believe the patient had a problem of abscess in the abdomen Staphylococcus aureus. Has been attempting control using a percutaneous catheter rather than ablation of the area surgical drainage. This may lead to bacteremia seeding in the spinal column since he has an extensive point of inflammation throughout the entire thoracic spine. The patient was noted with a thoracic spinal epidural abscess. The patient underwent hemilaminectomy T4-5 with evacuation of dorsal spinal epidural abscess; hemilaminectomy with transpedicular decompression T10 on the left side with evacuation of ventral spinal epidural abscess. * At this point of source is not under control and there may be additional foci. * I recommend that the patient be given serious consideration for surgical intervention to eradicate the infection in the abdomen to prevent further seeding. I am not certain the patient has cleared the infection from the initial point of source which was the abdominal abscess. TE 00:30 Entered by: Jaret Ramírez (KISHA)MD on 09/13/23 1523 Report Signed by: Jaret Ramírez MD (ID) on 10/13/23 1943 <<Signature on File>> <Electronically signed by Jaret Ramírez (KISHA) > Report Signed by: on [facility] Work Phone: 1(585) 747-445211-18-2023 Consult note Author Jaret Ramírez (KISHA) [facility] October 11, 2023 3:36pm Note Date/Time September 10, 2023 8 :54pm [facility] Medical Records Patient: GEOVANNY MEJÍA [address] : 1970 [place], [place] [address] Location: [address] [place] [address] Unit #: [id number] Consultation Jaret Ramírez (KISHA) Service Date: 09/10/23 History of Present Illness Date of Consultation: 09/10/23 Time Seen: 20:54 History of Present Illness: GEOVANNY MEJÍA is a 53 yr old F who was admitted on 09/08/23 for INTRA ABDOMINAL ABSCESS. Consultations 09/08/23 13:17 Consult Surgeon [Physician Consult Surgery] Routine Comment: Possible acute abdomen Consulting Provider: Rohit Pimentel Reason for consult: Intrabdominal abscess, NICANOR, a 53-year-old female, was transferred from the [facility] in [facility]. The patient was noted to have a acute onset of abdominal pain. The patient was seen and evaluated on transfer to the [facility]. On the evaluation a left sided retroperitoneal abscess was noted on theCT scan. The abscess cavity measured 4.7 X 2.6 X 4.5 cm. The patient was seen by surgery who referred the patient to IR for percutaneous draining. In IR the pigtail catheter was placed in the abdominal abscess drain.the fluid obtained was purulent and consistent with an abscess. Blood cultures and abscess cultures are positive for MSSA. The patient been placed on cefazolin. She was referred to [facility] for this problem as noted. Medical History (Updated 09/10/23 @ 12:39 by Craig Rodriguez DO) HTN (hypertension) Surgical History (Updated 09/08/23 @ 14:50 by Bryant Epperson, SULPHATE TESTER, FLOOR LAYER HELPER) No pertinent past surgical history Current Medications Acetaminophen (Acetaminophen 325 Mg Tab) 650 mg PO Q6HPRN PRN PRN Reason: Pain,Mild Or Fever >101.0 F Stop: 12/16/23 13:20 Diphenhydramine HCl (Diphenhydramine Hcl 25 Mg Cap) 25 mg PO QHSPRN PRN PRN Reason: insomnia Stop: 12/16/23 13:20 Last Admin: 09/08/23 20:41 Dose: 25 mg Docusate Sodium (Docusate Sodium 100 Mg Cap) 100 mg PO BIDPRN PRN PRN Reason: Constipation Stop: 12/16/23 13:20 Electrolyte Protocol (Phosphorus Replacement Protocol) 1 ea MD DIRECTED PRN;Protocol PRN Reason: SEE COMMENTS BELOW Stop: 12/16/23 13:20 Electrolyte Protocol (Calcium Replacement Protocol) 1 ea MD DIRECTED PRN; Protocol PRN Reason: SEE COMMENTS BELOW Stop: 12/16/23 13:20 Electrolyte Protocol (Magnesium Replacement Protocol 1 Ea Ea) 1 ea MD DIRECTED PRN; Protocol PRN Reason: SEE COMMENTS BELOW Stop: 12/16/23 13:20 Electrolyte Protocol (Potassium Replacement Protocol 1 Ea Ea) 1 ea MD DIRECTED PRN; Protocol PRN Reason: SEE COMMENTS BELOW Stop: 12/16/23 13:20 Heparin Sodium (Porcine) (Heparin Na(Porcine) 5,000 Units/Ml Vial) 5,000 units SC Q8H [facility] Stop: 12/17/23 14:01 Last Admin: 09/10/23 14:55 Dose: 5,000 units Hydromorphone HCl (Hydromorphone Hcl 1 Mg/Ml Amp) 0.5 mg IV PUSH Q4HPRN PRN PRN Reason: breakthrough pain Stop: 12/17/23 02:31 Last Admin: 09/09/23 06:41 Dose: 0.5 mg Hydromorphone HCl (Hydromorphone 6 Mg/30 Ml High Lift Operator.Syring) 6 mg IV GLOBAL CHIEF CREATIVE OFFICER DIRECTEDSCH Stop: 12/17/23 11:31 Last Admin: 09/10/23 20:41 Dose: 6 mg Sodium Chloride (Ns) 1,000 mls @ 125 mls/hr IV DIRECTED VITALIY Stop: 12/16/23 13:31 Last Admin: 09/10/23 14:55 Dose: 125 mls/hr Cefazolin Sodium (Kefzol Premix) 2 gm in 100 mls @ 200 mls/hr IVPB Q8H VITALIY Stop: 09/17/23 14:01 Last Admin: 09/10/23 14:55 Dose: 200 mls/hr Lactobacillus Rhamnosus (Lactobacillus Rhamnosus (Gg) 1 Ea Cap) 1 ea PO DAILY VITALIY Stop: 10/09/23 09:01 Last Admin: 09/10/23 10:43 Dose: 1 ea Melatonin (Melatonin 3 Mg Tab) 3 mg PO QHSMRX1 PRN PRN Reason: insomnia Stop: 12/16/23 13:20 Last Admin: 09/08/23 20:41 Dose: 3 mg Morphine Sulfate (Morphine Sulfate 2 Mg/1 Ml Tbx) 2 mg IV PUSH Q4HPRN PRN PRN Reason: Pain, Moderate to Severe Stop: 09/12/23 13:47 Last Admin: 09/08/23 23:37 Dose: 2 mg Non-Formulary Medication (Pharmacy Communication 1 Catrina Fuller) 1 catrina MEJÍA .PHA TO [facility] Stop: 12/17/23 11:31 Ondansetron HCl (Ondansetron 4 Mg/2 Ml Vial) 4 mg IV PUSH Q6HPRN PRN PRN Reason: Nausea and Vomiting Stop: 12/16/23 13:20 Polyethylene Glycol (Polyethylene Glycol 17 Gm Pkg) 17 gm PO DAILYPRN PRN PRN Reason: Constipation Stop: 12/16/23 13:20 Sodium Chloride (Sodium Chloride 0.9% 10 Ml Syr (Flush)) 5 ml FLUSH BID VITALIY Stop: 12/18/23 21:01 Allergies/Adverse Reactions No Known Drug Allergies Allergy (Verified 09/08/23 09:58) Home Medications No Home Meds 09/09/23 [Confirmed 09/09/23] Past Medical History Medical History (Updated 09/20/23 @ 00:01 by Background Rebeka) HTN (hypertension) Past Surgical History Surgical History (Updated 09/20/23 @ 00:01 by Background Daemelba) Intra-abdominal abscess DRAINED Social History Alcohol Amount: Socially/Occasionally Street Drugs: None Smoking Status: Former smoker Type of Tobacco: Cigarettes Smoking Amount: < 1 pack per day Smoking Stop Date: 09/05/23 Family History Denies family history of No pertinent family history Physical Exam Last Vital Signs Temp Pulse Resp BP Pulse Ox O2 Flow Rate 100.1 F 112 H 16 122/75 95 2.0 09/10/23 20:39 09/10/23 20:39 09/10/23 20:39 09/10/23 20:39 09/10/23 20:39 09/10/23 20:39 Height (Ft & In) 5 ft 4 in Admitting (IV Pump) Weight 83 kg Actual Weight (Kg) 83 kg Physical Exam General Appearance Alert,Resting Comfortably,Cooperative Eyes EOMI Skin Color Normal Cardiovascular Regular Rate and Rhythm,S1 S2 Lungs Abdomen Soft - improving,Tender to palpation?drain in place Neurologic Grossly Intact,A & O x3,Moves all extremities Psychological Mood & Affect Normal Laboratory Last Values WBC 23.3 th/cmm (4.4-10.5) H 09/10/23 05:35 RBC 3.58 mil/cmm (4.00-5.10) L 09/10/23 05:35 Hgb 10.0 gm/dL (12.0-15.0) L 09/10/23 05:35 Hct 30.4 % (35.0-44.0) L 09/10/23 05:35 MCV 84.9 CU MILKA (80-97) 09/10/23 05:35 MCH 28.0 PG (27.5-33.0) 09/10/23 05:35 MCHC 33.0 gm/dL (33.0-36.0) 09/10/23 05:35 RDW 16.3 % (12.0-16.0) H 09/10/23 05:35 Plt Count 164 th/cmm (150-400) 09/10/23 05:35 Neutrophils % (Manual) 85.0 % (40-70) H 09/08/23 18:27 Band Neutrophils % 10.0 % (2-6) H 09/08/23 18:27 Lymphocytes % (Manual) 4.0 % (15-45) L 09/08/23 18:27 Monocytes % (Manual) 1.0 % (2-10) L 09/08/23 18:27 Abs Neuts (Manual) 25529 /cmm (2482-0480) H 09/08/23 18:27 Abs Lymphs (Manual) 996 /cmm (4690-0832) L 09/08/23 18: Abs Monocytes (Manual) 249 /cmm (0-800) 09/08/23 18:27 Absolute Eos (Manual) 0 /cmm (0-500) 09/08/23 18: Abs Basophils (Manual) 0 /cmm (0-200) 09/08/23 18: Anisocytosis 1+ 09/08/23 18: RBC Morph Comment Test not indicated 09/08/23 18: Sodium 134 mEq/L (135-145) L 09/10/23 05:35 Potassium 3.7 mEq/L (3.6-5.0) 09/10/23 05:35 Chloride 101 mEq/L (101-111) 09/10/23 05:35 Carbon Dioxide 23 mEq/L (21-32) 09/10/23 05:35 Anion Gap 10 (4-12) 09/10/23 05:35 BUN 16 mg/dL (7-20) 09/10/23 05:35 Creatinine 0.54 mg/dL (0.60-1.30) L 09/10/23 05:35 GFR Calculation > 60 (60-) 09/10/23 05:35 Random Glucose 112 mg/dL (70-110) H 09/08/23 18:27 Fasting Glucose 91 mg/dL (70-110) 09/10/23 05:35 Lactic Acid 1.1 mmol/L (0.5-2.0) 09/08/23 18: Calcium 7.70 mg/dL (8.8-10.5) L 09/10/23 05:35 Magnesium 2.1 mg/dL (1.8-2.5) 09/10/23 05:35 Total Bilirubin 0.4 mg/dL (0.2-1.0) 09/08/23 18: AST 11 IU/L (15-41) L 09/08/23 18:27 ALT 20 IU/L (10-40) 09/08/23 18:27 Alkaline Phosphatase 276 IU/L (39-118) H 09/08/23 18:27 Total Protein 6.0 g/dL (6.2-8.0) L 09/08/23 18:27 Albumin 2.7 g/dL (3.5-5.0) L 09/08/23 18:27 Albumin/Globulin Ratio 0.8 (1.5-2.5) L 09/08/23 18:27 Peritoneal Creatinine 0.7 mg/dL 09/08/23 15:46 Pleural Triglycerides 102 mg/dL 09/08/23 15:46 Nasal Screen MRSA (PCR) NOT DETECTED (NotDetected) 09/08/23 Unknown Fecal Screen VRE (PCR) Negative (Negative) 09/08/23 Unknown Random Vancomycin 18.3 mcg/mL (15.0-40.0) 09/09/23 09:18 Diagnostic Data: 09/10/23 08:00 CT Abd/Pelvis W/Contrast 69125 Routine Assessment and Plan (1) Intra-abdominal abscess: (2) Staphylococcus aureus septicemia: (3) Staphylococcus aureus infection: (4) Spinal epidural abscess: Plan * Suggest continue cefazolin for now. * The patient can be switched to oral antibiotics if she is stable and the point of source of infection has been controlled * Post discharge patient to be followed outpatient basis TE 00:30 cc: None; Jaret Ramírez MD (ID) Dictated by: Jaret Ramírez MD (ID) on 09/10/232052 Entered by: Jaret Ramírez MD (ID) on 09/10/232052 Report Signed by: Jaret Ramírez MD (ID) on 10/11/23 1536 <<Signature on File>> <Electronically signed by Jaret Ramírez MD (ID)> Report Signed by: on [facility] Work Phone: 1(387) 180-978711-18-2023 [facility] Patient: GEOVANNY MEJÍA [address] : 1970 [place], [place] [address] Location: [phone] Unit #: [id number] Consultation Jaret Ramírez MD (ID) Service Date: 09/10/23 History of Present Illness Date of Consultation: 09/10/23 Time Seen: 20:54 History of Present Illness: GEOVANNY MEJÍA is a 53 yr old F who was admitted on 09/08/23 for INTRA ABDOMINAL ABSCESS. Consultations 09/08/23 13:17 Consult Surgeon [Physician Consult Surgery] Routine Comment: Possible acute abdomen Consulting Provider: Rohit Pimentel Reason for consult: Intrabdominal abscess, NICANOR, a 53-year-old female, was transferred from the [facility] in [facility]. The patient was noted to have a acute onset of abdominal pain. The patient was seen and evaluated on transfer to the [facility]. On the evaluation a left sided retroperitoneal abscess was noted on the CT scan. The abscess cavity measured 4.7 X 2.6 X 4.5 cm. The patient was seen by surgery who referred the patient to IR for percutaneous draining. In IR the pigtail catheter was placed in the abdominal abscess drain.the fluid obtained was purulent and consistent with an abscess. Blood cultures and abscess cultures are positive for MSSA. The patient been placed on cefazolin. She was referred to [facility] for this problem as noted. Medical History (Updated 09/10/23 @ 12:39 by Craig Rodriguez DO) HTN (hypertension) Surgical History (Updated 09/08/23 @ 14:50 by Bryant Epperson APRN, FLOOR LAYER HELPER) No pertinent past surgical history Current Medications Acetaminophen (Acetaminophen 325 Mg Tab) 650 mg PO Q6HPRN PRN PRN Reason: Pain,Mild Or Fever >101.0 F Stop: 12/16/23 13:20 Diphenhydramine HCl (Diphenhydramine Hcl 25 Mg Cap) 25 mg PO QHSPRN PRN PRN Reason: insomnia Stop: 12/16/23 13:20 Last Admin: 09/08/23 20:41 Dose: 25 mg Docusate Sodium (Docusate Sodium 100 Mg Cap) 100 mg PO BIDPRN PRN PRN Reason: Constipation Stop: 12/16/23 13:20 Electrolyte Protocol (Phosphorus Replacement Protocol) 1 catrina MEJÍA DIRECTED PRN; Protocol PRN Reason: SEE COMMENTS BELOW Stop: 12/16/23 13:20 Electrolyte Protocol (Calcium Replacement Protocol) 1 catrina MEJÍA DIRECTED PRN; Protocol PRN Reason: SEE COMMENTS BELOW Stop: 12/16/23 13:20 Electrolyte Protocol (Magnesium Replacement Protocol 1 Catrina Fuller) 1 catrina MEJÍA DIRECTED PRN; Protocol PRN Reason: SEE COMMENTS BELOW Stop: 12/16/23 13:20 Electrolyte Protocol (Potassium Replacement Protocol 1 Ea Catrina) 1 catrina MEJÍA DIRECTED PRN; Protocol PRN Reason: SEE COMMENTS BELOW Stop: 12/16/23 13:20 Heparin Sodium (Porcine) (Heparin Na(Porcine) 5,000 Units/Ml Vial) 5,000 units SC Q8H VITALIY Stop: 12/17/23 14:01 Last Admin: 09/10/23 14:55 Dose: 5,000 units Hydromorphone HCl (Hydromorphone Hcl 1 Mg/Ml Amp) 0.5 mg IV PUSH Q4HPRN PRN PRN Reason: breakthrough pain Stop: 12/17/23 02:31 Last Admin: 09/09/23 06:41 Dose: 0.5 mg Hydromorphone HCl (Hydromorphone 6 Mg/30 Ml High Lift Operator.Syring) 6 mg IV GLOBAL CHIEF CREATIVE OFFICER DIRECTED VITALIY Stop: 12/17/23 11:31 Last Admin: 09/10/23 20:41 Dose: 6 mg Sodium Chloride (Ns) 1,000 mls @ 125 mls/hr IV DIRECTED VITALIY Stop: 12/16/23 13:31 Last Admin: 09/10/23 14:55 Dose: 125 mls/hr Cefazolin Sodium (Kefzol Premix) 2 gm in 100 mls @ 200 mls/hr IVPB Q8H VITALIY Stop: 09/17/23 14:01 Last Admin: 09/10/23 14:55 Dose: 200 mls/hr Lactobacillus Rhamnosus (Lactobacillus Rhamnosus (Gg) 1 Ea Cap) 1 ea PO DAILY VITALIY Stop: 10/09/23 09:01 Last Admin: 09/10/23 10:43 Dose: 1 ea Melatonin (Melatonin 3 Mg Tab) 3 mg PO QHSMRX1 PRN PRN Reason: insomnia Stop: 12/16/23 13:20 Last Admin: 09/08/23 20:41 Dose: 3 mg Morphine Sulfate (Morphine Sulfate 2 Mg/1 Ml Tbx) 2 mg IV PUSH Q4HPRN PRN PRN Reason: Pain, Moderate to Severe Stop: 09/12/23 13:47 Last Admin: 09/08/23 23:37 Dose: 2 mg Non-Formulary Medication (Pharmacy Communication 1 Catrina Fuller) 1 catrina MEJÍA .PHA TO PL[address] VITALIY Stop: 12/17/23 11:31 Ondansetron HCl (Ondansetron 4 Mg/2 Ml Vial) 4 mg IV PUSH Q6HPRN PRN PRN Reason: Nausea and Vomiting Stop: 12/16/23 13:20 Polyethylene Glycol (Polyethylene Glycol 17 Gm Pkg) 17 gm PO DAILYPRN PRN PRN Reason: Constipation Stop: 12/16/23 13:20 Sodium Chloride (Sodium Chloride 0.9% 10 Ml Syr (Flush)) 5 ml FLUSH BID [facility] Stop: 12/18/23 21:01 Allergies/Adverse Reactions No Known Drug Allergies Allergy (Verified 09/08/23 09:58) Home Medications No Home Meds 09/09/23 [Confirmed 09/09/23] Past Medical History Medical History (Updated 09/20/23 @ 00:01 by Background Daemon) HTN (hypertension) Past Surgical History Surgical History (Updated 09/20/23 @ 00:01 by Background Daemon) Intra-abdominal abscess DRAINED Social History Alcohol Amount: Socially/Occasionally Street Drugs: None Smoking Status: Former smoke (more content not included)...[facility] Progress note Author Jaret Ramírez (ID) [facility] October 11, 2023 3:36pm Note Date/Time September 11, 2023 3 :23pm [facility] Medical Records Patient: GEOVANNY MEJÍA [address] : 1970 [place], [place] [address] Location: [address] [place] [address] Unit #: [id number] Progress Note - Antibiotics Jaret Ramírez (ID) Service Dt/Tm: 09/11/23 1521 Antibiotic Note Results: Patient is resting comfortably. She still has pain in the abdomen but she controls that with the GLOBAL CHIEF CREATIVE OFFICER pump which is beginning to make her somewhat loopy . Status post back surgery due to problems as noted Temperature 98.2 F Physical Exam General Appearance sedated Eyes EOMI Skin Color Normal Cardiovascular Regular Rate and Rhythm,S1 S2 Lungs snoring Abdomen Soft - mildly,Tender to palpation Neurologic deferred due to sedation, she does move extremities with stimulus Psychological deferred Lab Results WBC 29.8 th/cmm (4.4-10.5) H 09/11/23 04:58 BUN 15 mg/dL (7-20) 09/11/23 04:58 Creatinine 0.55 mg/dL (0.60-1.30) L 09/11/23 04:58 09/08/23 18:20 Blood,Venous Blood Culture - Final Staphylococcus aureus Staphylococcus epidermidis 09/08/23 18:15 Blood,Venous - Final 09/08/23 18:15 Blood,Venous Blood Culture - Final Staphylococcus aureus Assessment/Plan (1) Intra-abdominal abscess: Status: Acute (2) Staphylococcus aureus septicemia: Status: Acute (3) Staphylococcus aureus infection: Status: Acute Plan * Suggest continue cefazolin for now. * The patient can be switched to oral antibiotics if she is stable and the point of source of infection has been controlled. At this time the point of source has not been controlled * 09/11/23 13:35 Blood Culture Q5M x2 sets has been ordered to make sure that she has resolved this problem. If it is positive then we need to consider controlling the source before she seeds other areas due to persistent bacteremia. This would include possible endocarditis. * This patient has abdominal pain discomfort. She is resting comfortably but that is with the use of the GLOBAL CHIEF CREATIVE OFFICER pump. This patient may continue to be a problem which may not be managed long-term by the percutaneous catheter drainage. * The patient has back pain and she claims she cannot move her legs. I did try to assess the situation but the patient was on her GLOBAL CHIEF CREATIVE OFFICER pump and she was sedated to the point examination could not be performed. I suggested neuro consult. TE 00:30 Entered by: Jaret Ramírez (ID)MD on 09/11/23 1521 Report Signed by: Jaret Ramírez MD (ID) on 10/11/23 1536 <<Signature on File>> <Electronically signed by Jaret Ramírez (KISHA) > Report Signed by: on [facility] Work Phone: 1(808) 388-875111-16-2023 Consult note Author Rohit Pimentel [facility] October 09, 2023 5:39pm Note Date/Time September 08, 2023 2 :27pm [facility] Medical Records Patient: GEOVANNY MEJÍA [address] : 1970 [place], [place] [address] Location: [phone] Unit #: [id number] Consultation Bryant Epperson APRN, CNP Service Date: 09/08/23 53 year old female with intraabdominal abscess. Plan for IR drainage today. Brian follow. IV antibiotics. If not amenable to IR drainage may require operative drainage. Patient seen and examined independently by me. Below discussed and I agree withthe note except where indicated. See my additional comments below. Labs, cultures, and radiographs where available were reviewed. Changes were made in the orders as necessary. I discussed patient concerns with the patient's nurse and instructions were given. Please see our orders for the updated patient careplan. History of Present Illness Date of Consultation: 09/08/23 Time Seen: 14:00 Referring Physician: Willy Lechuga ([facility]) Reason for Consultation: Abdominal abscess History of Present Illness: Ms Mejía is a 53 y/o F who has a PMH of hypertension who was transferred from [facility] due to concerns for an intra-abdominal abscess.?CT image reported left retroperitoneal fluid collection with moderate inflammation measuring 4.7 X2.6X 4.5 cm with possible abscess formation.?Hospitalist attending. Surgery consulted. Dr Nava and Dr Guevara did review images. It is suspected that the fluid collection is likely a urinoma. Will plan for IR to place drain. Allergies/Adverse Reactions No Known Drug Allergies Allergy (Verified 09/08/23 09:58) Unknown Past Medical History Medical History (Updated 09/08/23 @ 14:48 by Willy Lechuga ([facility])MD) HTN (hypertension) Past Surgical History Surgical History (Updated 09/08/23 @ 14:50 by Bryant Epperson APRN, MONIK) No pertinent past surgical history Social History Smoking Status: Former smoker Type of Tobacco: Cigarettes Smoking Amount: < 1 pack per day Smoking Stop Date: 09/05/23 Family History (Updated 09/08/23 @ 14:51 by Bryant Epperson APRN, MONIK) Denies family history of No pertinent family history Review of Systems Review of Systems: 10-point review of systems is negative except that mentioned in HPI. Constitutional: Negative; denies Fever or Chills Respiratory: Negative; denies Cough Cardiovascular: Negative; denies Chest Pain Gastrointestinal: Abdominal Pain Genitourinary: Negative Musculoskeletal: Negative Skin: Negative Neurological: Negative All other systems: Negative Physical Exam Last Vital Signs Temp Pulse Resp BP Pulse Ox O2 Flow Rate 98.3 F 108 H 20 147/93 H 93 2 09/08/23 09:57 09/08/23 13:30 09/08/23 13:27 09/08/23 13:30 09/08/23 13:30 09/08/23 13:30 Height (Ft & In) 5 ft 4 in Admitting (IV Pump) Weight 83 kg Actual Weight (Kg) 83 kg General Appearance: Alert, Resting Comfortably and Cooperative; No Acute Distress Eyes: EOMI Skin: Color Normal and Warm, Dry Cardiovascular: Tachycardic Rhythm Left Lung: Throughout: Clear Right Lung: Throughout: Clear Lungs: Good Air Entry; No Respiratory Distress Abdomen: Soft, Tender to palpation (Left abdomen) and BM Extremities: Activity as expected and Warm and Dry Neurologic: Grossly Intact and A & O x3 CAM Tool Confusion Assessment Method (CAM Tool) 1. Acute onset and fluctuating course Is there evidence of an acute change in mental status from the patient's baseline?: No Did the (abnormal) behavior fluctuate during the day, that is tend to come and go or increase and decrease in severity?: No 2. Inattention Did the patient have difficulty focusing attention, for example, being easily distractible or having difficulty keeping track of what was being said?: No 3. Disorganized Thinking Was the patient?s thinking disorganized or incoherent, such as rambling or irrelevant conversation, unclear or illogical flow of ideas, or unpredictable switching from subject to subject?: No 4. Altered Level Of Consciousness Would you rate the patient's level of consciousness as Vigilant (hyper alert), Lethargic (drowsy, easily aroused), Stupor (difficult to arouse), OR Coma (unarousable)?: No CAM Score Does the patient have a positive CAM score? (Yes to all questions under number 1and 2, and Yes to question 3 or 4): No PRISME Did you utilize the PRISME method to identify, rule-out, and treat the possible causation of dementia?: No Assessment and Plan (1) Back pain: Qualifiers: Back pain location: low back pain Chronicity: acute Back pain laterality: unspecified Sciatica presence: with sciatica Sciatica laterality: sciatica of right side Qualified Code(s): M54.41 - Lumbago with sciatica, rightside (2) Sciatica: Qualifiers: Laterality: unspecified laterality Qualified Code(s): M54.30 - Sciatica, unspecified side (3) Retroperitoneal abscess: Plan Hospitalist attending Surgery consulted Continue NPO Activity per primary IVF Pain control ATB Load CT images into PACs Plan for IR to place drain today AM labs Will continue to follow cc: Rohit Pimentel MD; Bryant Epperson APRN-MONIK; None Dictated by: Bryant Epperson APRN, CNP on 09/08/231426 Entered by: LAVELLE Garcia on 09/08/231426 Report Signed by: Bryant VALDERRAMA on 09/08/23 1500 <<Signature on File>> <Electronically signed by Bryant Epperson APRN, CNP> Report Signed by: Rohit Pimentel MD on 10/09/23 1739 <<Signature on File>> <Electronically signed by Rohit Pimentel MD> [facility] Work Phone: 1(168) 323-975111-16-2023 [facility] Patient: GEOVANNY MEJÍA [address] : 1970 [place], [place] [address] Location: [address] [place] [address] Unit #: [id number] Consultation Bryant Epperson APRN, CNP Service Date: 09/08/23 53 year old female with intraabdominal abscess. Plan for IR drainage today. Brian follow. IV antibiotics. If not amenable to IR drainage may require operative drainage. Patient seen and examined independently by me. Below discussed and I agree with the note except where indicated. See my additional comments below. Labs, cultures, and radiographs where available were reviewed. Changes were made in the orders as necessary. I discussed patient concerns with the patient's nurse and instructions were given. Please see our orders for the updated patient care plan. History of Present Illness Date of Consultation: 09/08/23 Time Seen: 14:00 Referring Physician: Willy Lechuga ([facility]) Reason for Consultation: Abdominal abscess History of Present Illness: Ms Mejía is a 53 y/o F who has a PMH of hypertension who was transferred from [facility] due to concerns for an intra-abdominal abscess.???CT image reported left retroperitoneal fluid collection with moderate inflammation measuring 4.7 X2.6X 4.5 cm with possible abscess formation.???Hospitalist attending. Surgery consulted. Dr Nava and Dr Guevara did review images. It is suspected that the fluid collection is likely a urinoma. Will plan for IR to place drain. Allergies/Adverse Reactions No Known Drug Allergies Allergy (Verified 09/08/23 09:58) Unknown Past Medical History Medical History (Updated 09/08/23 @ 14:48 by Willy Lechuga ([facility])MD) HTN (hypertension) Past Surgical History Surgical History (Updated 09/08/23 @ 14:50 by Bryant Epperson APRN, MONIK) No pertinent past surgical history Social History Smoking Status: Former smoker Type of Tobacco: Cigarettes Smoking Amount: < 1 pack per day Smoking Stop Date: 09/05/23 Family History (Updated 09/08/23 @ 14:51 by Bryant Epperson APRN, MONIK) Denies family history of No pertinent family history Review of Systems Review of Systems: 10-point review of systems is negative except that mentioned in HPI. Constitutional: Negative; denies Fever or Chills Respiratory: Negative; denies Cough Cardiovascular: Negative; denies Chest Pain Gastrointestinal: Abdominal Pain Genitourinary: Negative Musculoskeletal: Negative Skin: Negative Neurological: Negative All other systems: Negative Physical Exam Last Vital Signs Temp Pulse Resp BP Pulse Ox O2 Flow Rate 98.3 F 108 H 20 147/93 H 93 2 09/08/23 09:57 09/08/23 13:30 09/08/23 13:27 09/08/23 13:30 09/08/23 13:30 09/08/23 13:30 Height (Ft AND In) 5 ft 4 in Admitting (IV Pump) Weight 83 kg Actual Weight (Kg) 83 kg General Appearance: Alert, Resting Comfortably and Cooperative; No Acute Distress Eyes: EOMI Skin: Color Normal and Warm, Dry Cardiovascular: Tachycardic Rhythm Left Lung: Throughout: Clear Right Lung: Throughout: Clear Lungs: Good Air Entry; No Respiratory Distress Abdomen: Soft, Tender to palpation (Left abdomen) and BM Extremities: Activity as expected and Warm and Dry Neurologic: Grossly Intact and A AND O x3 CAM Tool Confusion Assessment Method (CAM Tool) 1. Acute onset and fluctuating course Is there evidence of an acute change in mental status from the patient's baseline?: No Did the (abnormal) behavior fluctuate during the day, that is tend to come and go or increase and decrease in severity?: No 2. Inattention Did the patient have difficulty focusing attention, for example, being easily distractible or having difficulty keeping track of what was being said?: No 3. Disorganized Thinking Was the patient???s thinking disorganized or incoherent, such as rambling or irrelevant conversation, unclear or illogical flow of ideas, or unpredictable switching from subject to subject?: No 4. Altered Level Of Consciousness Would you rate the patient's level of consciousness as Vigilant (hyper alert), Lethargic (drowsy, easily aroused), Stupor (difficult to arouse), OR Coma (unarousable)?: No CAM Score Does the patient have a positive CAM score? (Yes to all questions under number 1 and 2, and Yes to question 3 or 4): No PRISME Did you utilize the PRISME method to identify, rule-out, and treat the possible causation of dementia?: No Assessment and Plan (1) Back pain: Qualifiers: Back pain location: low back pain Chronicity: acute Back pain laterality: unspecified Sciatica presence: with sciatica Sciatica laterality: sciatica of right side Qualified Code(s): M54.41 - Lumbago with sciatica, right side (2) Sciatica: Qualifiers: Laterality: unspecified laterality Qualified Code(s): M54.30 - Sciatica, unspecified side (3) Retroperitoneal abscess: Plan Hospitalist attendi (more content not included)...[facility] 10-09-2023 Progress note Author Rohit Pimentel [facility] October 09, 2023 5:39pm Note Date/Time September 09, 2023 3 :24pm [facility] Medical Records Patient: GEOVANNY MEJÍA. : 1970 [place], [place] [address] Location: [facility] [phone] Unit #: [id number] Progress Note Surgical Ryanne Moralse PA-C Service Dt/Tm: 09/09/23 1516 53 year old female with intraabdominal abscess. S/P IR drainage. Brian follow. IV antibiotics. Pain worsening and GLOBAL CHIEF CREATIVE OFFICER started Patient seen and examined independently by me. Below discussed and I agree withthe note except where indicated. See my additional comments below. Labs, cultures, and radiographs where available were reviewed. Changes were made in the orders as necessary. I discussed patient concerns with the patient's nurse and instructions were given. Please see our orders for the updated patient careplan. Assessment/Plan (1) Back pain: Status: Acute Qualifiers: Back pain location: low back pain Chronicity: acute Back pain laterality: unspecified Sciatica presence: with sciatica Sciatica laterality: sciatica of right side Qualified Code(s): M54.41 - Lumbago with sciatica, rightside (2) Sciatica: Status: Acute Qualifiers: Laterality: unspecified laterality Qualified Code(s): M54.30 - Sciatica, unspecified side (3) Retroperitoneal abscess: Status: Acute Plan Hospitalist attending Surgery consulted Patient examined. Labs and vitals reviewed. AVSS. Still continued high pain. Will add [employer] pump for better pain control. Increased nausea. Zofran on board. NPO with meds okay. Will repeat CT scan tomorrow. Continue IS, ambulation as tolerated, and antiemetics. Will continue to follow Subjective Date of Service: 09/09/23 Patient Information: GEOVANNY MEJÍA is a 53 yr old F who was admitted on 09/08/23 for INTRA ABDOMINAL ABCESS. Patient expresses concerns: No Patient states: denies Shortness of breath or Chest pain Pain control: Mildly controlled CAM Tool Confusion Assessment Method (CAM Tool) 1. Acute onset and fluctuating course Is there evidence of an acute change in mental status from the patient's baseline?: No Did the (abnormal) behavior fluctuate during the day, that is tend to come and go or increase and decrease in severity?: No 2. Inattention Did the patient have difficulty focusing attention, for example, being easily distractible or having difficulty keeping track of what was being said?: No 3. Disorganized Thinking Was the patient?s thinking disorganized or incoherent, such as rambling or irrelevant conversation, unclear or illogical flow of ideas, or unpredictable switching from subject to subject?: No 4. Altered Level Of Consciousness Would you rate the patient's level of consciousness as Vigilant (hyper alert), Lethargic (drowsy, easily aroused), Stupor (difficult to arouse), OR Coma (unarousable)?: No CAM Score Does the patient have a positive CAM score? (Yes to all questions under number 1and 2, and Yes to question 3 or 4): No PRISME Did you utilize the PRISME method to identify, rule-out, and treat the possible causation of dementia?: No Objective Vital Signs Last 48 hours: Vital Signs - 48 hr Temp Pulse Resp BP Pulse Ox O2 Flow Rate 09/09/23 10:20 2 09/09/23 10:18 124 H 22 H 111/96 H 96 09/09/23 06:41 106 H 20 127/72 95 09/09/23 02:41 107 H 20 108/91 H 96 09/08/23 23:37 101 H 18 114/77 94 09/08/23 23:32 101 H 18 133/77 94 09/08/23 20:00 2.0 09/08/23 20:41 114 H 22 H 141/82 H 98 09/08/23 18:41 106 H 20 125/78 100 09/08/23 15:51 100 18 143/58 H 99 09/08/23 15:46 102 H 18 139/101 H 100 2 09/08/23 15:42 107 H 22 H 140/108 H 99 2 09/08/23 15:53 107 H 22 H 152/102 H 99 2 09/08/23 15:37 105 H 18 156/102 H 25 2 09/08/23 15:37 105 H 21 H 94 2 09/08/23 13:27 100 20 147/93 H 93 09/08/23 09:51 2 09/09/23 10:20 98.1 F 124 H 22 H 111/96 H 09/09/23 02:40 97.6 F 107 H 20 108/91 H 97 2.0 09/08/23 23:27 98.8 F 101 H 14 113/77 94 09/08/23 19:58 98.4 F 113 H 22 H 141/82 H 98 2.0 09/08/23 14:00 97 128/68 97 09/08/23 12:30 104 H 107/78 92 09/08/23 12:00 107 H 115/53 L 90 09/08/23 11:00 90 112/89 89 09/08/23 11:00 94 112/89 93 09/08/23 10:45 88 128/79 93 09/08/23 10:30 90 111/72 91 09/08/23 10:15 88 140/74 91 09/08/23 13:30 108 H 147/93 H 93 2 09/08/23 10:00 88 129/81 92 09/08/23 09:57 98.3 F 90 16 125/78 94 2.0 Vital Signs (Last Set): Vital Signs - Last Set Temperature 98.1 F 09/09/23 10:20 Pulse Rate 124 H 09/09/23 10:20 Respiratory Rate 22 H 09/09/23 10:20 Blood Pressure 111/96 H 09/09/23 10:20 Oxygen Saturation% 96 09/09/23 10:18 Liters of Oxygen 2 09/09/23 10:20 Patient is: Afebrile Intake/Output totals: Intake & Output 09/09/23 09/09/23 09/09/23 06:59 14:59 22:59 Intake Total 555.24 487.11 Output Total 500 800 Balance 55.24 -312.89 Intake: IV Intake (ml) 555.24 487.11 PO Intake (ml) 0 Output: Void Output (ml) 800 Indwelling Urinary Catheter 500 Output (ml) I/O: Equals output General Appearance: Positive Alert; Negative Acute Distress Skin: Positive Color Normal Cardiovascular: Positive Regular Rate and Rhythm Lungs: Negative Respiratory Distress Abdomen: Positive Soft Extremities: Positive Activity as expected and Warm and Dry; Negative Swelling Neurologic: Positive Grossly Intact, Moves all extremities and A & O x3 Psychological: Positive Mood & Affect Normal Lab Results: 09/09/23 03:36 09/09/23 03:37 Laboratory Results - last 24 hr 09/09/23 09/09/23 09/09/23 09:18 03:37 03:36 WBC 18.2 H RBC 3.73 L Hgb 10.6 L Hct 31.8 L MCV 85.4 MCH 28.4 MCHC 33.3 RDW 16.0 Plt Count 172 Neutrophils % (Manual) Band Neutrophils % Lymphocytes % (Manual) Monocytes % (Manual) Abs Neuts (Manual) Abs Lymphs (Manual) Abs Monocytes (Manual) Absolute Eos (Manual) Abs Basophils (Manual) Anisocytosis RBC Morph Comment Sodium 132 L Potassium 3.8 Chloride 97 L Carbon Dioxide 26 Anion Gap 9 BUN 22 H Creatinine 0.65 GFR Calculation > 60 Random Glucose Fasting Glucose 111 H Lactic Acid Calcium 8.10 L Magnesium 2.1 Total Bilirubin AST ALT Alkaline Phosphatase Total Protein Albumin Albumin/Globulin Ratio Peritoneal Creatinine Pleural Triglycerides Nasal Screen MRSA (PCR) Fecal Screen VRE (PCR) Random Vancomycin 18.3 09/08/23 09/08/23 09/08/23 Unknown 18:27 15:46 WBC 24.9 H RBC 3.61 L Hgb 10.3 L Hct 30.6 L MCV 84.8 MCH 28.6 MCHC 33.7 RDW 15.7 Plt Count 213 Neutrophils % (Manual) 85.0 H Band Neutrophils % 10.0 H Lymphocytes % (Manual) 4.0 L Monocytes % (Manual) 1.0 L Abs Neuts (Manual) 64873 H Abs Lymphs (Manual) 996 L Abs Monocytes (Manual) 249 Absolute Eos (Manual) 0 Abs Basophils (Manual) 0 Anisocytosis 1+ RBC Morph Comment Test not indicated Sodium 134 L Potassium 3.7 Chloride 98 L Carbon Dioxide 27 Anion Gap 9 BUN 24 H Creatinine 0.63 GFR Calculation > 60 Random Glucose 112 H Fasting Glucose Lactic Acid 1.1 Calcium 8.10 L Magnesium Total Bilirubin 0.4 AST 11 L ALT 20 Alkaline Phosphatase 276 H Total Protein 6.0 L Albumin 2.7 L Albumin/Globulin Ratio 0.8 L Peritoneal Creatinine 0.7 Pleural Triglycerides 102 Nasal Screen MRSA (PCR) NOT DETECTED Fecal Screen VRE (PCR) Negative Random Vancomycin Microbiology 09/08/23 15:46 Abdominal fluid Gram Stain - Final 09/08/23 15:46 Abdominal fluid Body Fluid Culture - Preliminary Staphylococcus aureus 09/08/23 18:20 Blood,Venous Blood Culture - Preliminary Gram positive cocci- clusters 09/08/23 18:15 Blood,Venous - Final 09/08/23 18:15 Blood,Venous Blood Culture - Preliminary Gram positive cocci- clusters 09/08/23 Unknown Perianal MRSA Screen - Preliminary No growth of MRSA after 1 day. Entered by: Ryanne Morales PA-C on 09/09/23 [id number] Report Signed by: Ryanne Morales PA-C on 09/09/23 1527 <<Signature on File>> < [id number] <<Signature on File>> <Electronically signed by Rohit Pimentel MD> [facility] Work Phone: 1(716) 708-980511-16-2023 Progress note Author Rohit Pimentel [facility] October 09, 2023 5:39pm Note Date/Time September 10, 2023 2 :53pm [facility] Medical Records Patient: GEOVANNY MEJÍA [address] : 1970 [place], [place] [address] Location: [phone] Unit #: [id number] Progress Note Surgical Ryanne Morales PA-C Service Dt/Tm: 09/10/23 1447 53 year old male with intraabdominal abscess. S/P IR drainage. Brian follow. IV antibiotics. Pain worsening and [employer] started and pain better controlled. repeat CCT with improvement will continue to follow. Patient seen and examined independently by me. Below discussed and I agree withthe note except where indicated. See my additional comments below. Labs, cultures, and radiographs where available were reviewed. Changes were made in the orders as necessary. I discussed patient concerns with the patient's nurse and instructions were given. Please see our orders for the updated patient careplan. Assessment/Plan (1) Back pain: Status: Acute Qualifiers: Back pain location: low back pain Chronicity: acute Back pain laterality: unspecified Sciatica presence: with sciatica Sciatica laterality: sciatica of right side Qualified Code(s): M54.41 - Lumbago with sciatica, rightside (2) Sciatica: Status: Acute Qualifiers: Laterality: unspecified laterality Qualified Code(s): M54.30 - Sciatica, unspecified side (3) Retroperitoneal abscess: Status: Acute Plan Hospitalist attending Surgery consulted Patient examined. Labs and vitals reviewed. AVSS. Pain better controlled with [employer] pump. NPO with meds okay. -flatus/-BM CT shows improving I&D. Continue IS, antibiotics, ambulation as tolerated, and antiemetics. Will continue to follow Subjective Date of Service: 10/18/23 Patient Information: GEOVANNY MEJÍA is a 53 yr old F who was admitted on 09/08/23 for INTRA ABDOMINAL ABCESS. Patient expresses concerns: No Patient states: denies Shortness of breath or Chest pain Pain control: Well controlled CAM Tool Confusion Assessment Method (CAM Tool) 1. Acute onset and fluctuating course Is there evidence of an acute change in mental status from the patient's baseline?: No Did the (abnormal) behavior fluctuate during the day, that is tend to come and go or increase and decrease in severity?: No 2. Inattention Did the patient have difficulty focusing attention, for example, being easily distractible or having difficulty keeping track of what was being said?: No 3. Disorganized Thinking Was the patient?s thinking disorganized or incoherent, such as rambling or irrelevant conversation, unclear or illogical flow of ideas, or unpredictable switching from subject to subject?: No 4. Altered Level Of Consciousness Would you rate the patient's level of consciousness as Vigilant (hyper alert), Lethargic (drowsy, easily aroused), Stupor (difficult to arouse), OR Coma (unarousable)?: No CAM Score Does the patient have a positive CAM score? (Yes to all questions under number 1and 2, and Yes to question 3 or 4): No PRISME Did you utilize the PRISME method to identify, rule-out, and treat the possible causation of dementia?: No Objective Vital Signs Last 48 hours: Vital Signs - 48 hr Temp Pulse Resp BP Pulse Ox O2 Flow Rate 09/09/23 10:20 2 09/09/23 10:18 124 H 22 H 111/96 H 96 09/09/23 06:41 106 H 20 127/72 95 09/09/23 02:41 107 H 20 108/91 H 96 09/08/23 23:37 101 H 18 114/77 94 09/08/23 23:32 101 H 18 133/77 94 09/08/23 20:00 2.0 09/08/23 20:41 114 H 22 H 141/82 H 98 09/08/23 18:41 106 H 20 125/78 100 09/08/23 15:51 100 18 143/58 H 99 09/08/23 15:46 102 H 18 139/101 H 100 2 09/08/23 15:42 107 H 22 H 140/108 H 99 2 09/08/23 15:53 107 H 22 H 152/102 H 99 2 09/08/23 15:37 105 H 18 156/102 H 25 2 09/08/23 15:37 105 H 21 H 94 2 09/10/23 10:31 98.2 F 151/82 H 09/10/23 03:46 107 H 136/73 90 09/10/23 01:56 98.0 F 108 H 20 130/94 H 91 09/10/23 01:56 98.0 F 106 H 20 144/71 H 91 09/10/23 02:30 106 H 144/72 H 90 09/10/23 02:45 105 H 138/69 90 09/10/23 03:00 106 H 139/71 91 09/10/23 03:15 108 H 137/75 90 09/10/23 03:31 107 H 137/72 90 09/10/23 04:01 107 H 135/69 91 09/10/23 04:16 109 H 140/73 91 09/10/23 01:56 98.0 F 104 H 20 132/77 91 09/09/23 20:14 99.7 F 106 H 16 126/77 91 09/09/23 21:00 106 H 140/68 91 09/09/23 20:15 99.7 F 105 H 16 129/68 91 09/09/23 20:45 106 H 135/71 91 09/09/23 21:15 104 H 146/73 H 93 09/09/23 21:30 103 H 137/69 93 09/09/23 22:00 102 H 135/70 09/09/23 21:45 101 H 134/73 93 09/09/23 22:15 102 H 137/71 09/09/23 22:30 103 H 137/68 09/09/23 22:45 104 H 138/72 09/09/23 23:00 104 H 141/75 H 09/09/23 23:15 102 H 138/71 09/09/23 23:30 103 H 144/70 H 09/09/23 23:45 102 H 133/74 09/10/23 00:00 101 H 141/69 H 09/10/23 00:15 102 H 134/72 09/10/23 00:30 106 H 139/75 09/10/23 00:45 102 H 136/73 09/10/23 01:00 105 H 136/72 09/10/23 01:15 102 H 137/74 09/10/23 01:30 103 H 139/75 09/10/23 01:45 103 H 132/77 09/09/23 19:01 107 H 138/70 92 09/09/23 19:16 106 H 137/68 90 09/09/23 19:31 107 H 130/70 90 09/09/23 19:46 107 H 137/70 91 09/09/23 20:00 107 H 128/71 91 09/09/23 20:15 99.7 F 107 H 16 126/77 92 09/09/23 15:31 104 H 135/76 91 09/09/23 14:30 108 H 139/74 90 09/09/23 13:30 108 H 132/75 89 09/09/23 13:15 106 H 132/72 89 09/09/23 13:15 107 H 132/72 89 09/09/23 13:15 107 H 132/72 90 09/09/23 13:08 109 H 131/67 90 09/09/23 10:20 98.1 F 124 H 22 H 111/96 H 09/09/23 02:40 97.6 F 107 H 20 108/91 H 97 2.0 09/08/23 23:27 98.8 F 101 H 14 113/77 94 09/08/23 19:58 98.4 F 113 H 22 H 141/82 H 98 2.0 Vital Signs (Last Set): Vital Signs - Last Set Temperature 98.2 F 09/10/23 10:31 Pulse Rate 109 H 09/10/23 04:16 Respiratory Rate 20 09/10/23 01:56 Blood Pressure 151/82 H 09/10/23 10:31 Oxygen Saturation% 91 09/10/23 04:16 Liters of Oxygen 2 09/09/23 10:20 Patient is: Afebrile Intake/Output totals: Intake & Output 09/09/23 09/10/23 09/10/23 22:59 06:59 14:59 Intake Total 873.49 715.91 Output Total 650 450 Balance 223.49 265.91 Intake: IV Intake (ml) 873.49 595.91 PO Intake (ml) 0 120 Output: Indwelling Urinary Catheter 650 450 Output (ml) Other: Number of Stools 0 0 I/O: Equals output General Appearance: Positive Alert, Resting Comfortably and Cooperative; Negative Acute Distress Skin: Positive Color Normal Cardiovascular: Positive Regular Rate and Rhythm and S1 S2 Lungs: Negative Respiratory Distress Abdomen: Positive Soft and Tender to palpation (improving); Negative BM or Flatus Extremities: Positive Activity as expected and Warm and Dry; Negative Swelling Neurologic: Positive Grossly Intact, Moves all extremities and A & O x3 Psychological: Positive Mood & Affect Normal Device: Drain(s) (serosang) Lab Results: 09/10/23 05:35 09/10/23 05:35 Laboratory Results - last 24 hr 09/10/23 05:35 WBC 23.3 H RBC 3.58 L Hgb 10.0 L Hct 30.4 L MCV 84.9 MCH 28.0 MCHC 33.0 RDW 16.3 H Plt Count 164 Sodium 134 L Potassium 3.7 Chloride 101 Carbon Dioxide 23 Anion Gap 10 BUN 16 Creatinine 0.54 L GFR Calculation > 60 Fasting Glucose 91 Calcium 7.70 L Magnesium 2.1 Microbiology 09/08/23 18:20 Blood,Venous Blood Culture - Preliminary Staphylococcus aureus Staphylococcus epidermidis 09/08/23 18:15 Blood,Venous - Final 09/08/23 18:15 Blood,Venous Blood Culture - Preliminary Staphylococcus aureus 09/08/23 Unknown Perianal MRSA Screen - Final No growth of MRSA after 2 days. 09/08/23 15:46 Abdominal fluid Gram Stain - Final 09/08/23 15:46 Abdominal fluid Body Fluid Culture - Preliminary Staphylococcus aureus Entered by: Ryanne Morales PA-C on 09/10/23 1447 Report Signed by: Ryanne Morales PA-C on 09/10/23 1452 <<Signature on File>> < [id number] <<Signature on File>> <Electronically signed by Rohit Pimentel MD> [facility] Work Phone: 1(728) 687-775311-16-2023 Progress note Author Rohit Pimentel [facility] October 09, 2023 5:39pm Note Date/Time September 11, 2023 8 :[address] [place] [address] Medical Records Patient: GEOVANNY MEJÍA [address] : 1970 [place], [place] [address] Location: [phone] Unit #: [id number] Progress Note Surgical Ryanne Morales PA-C Service Dt/Tm: 09/11/23 0814 53 year old male with intraabdominal abscess. S/P IR drainage. Brian follow. IV antibiotics. Pain worsening and [employer] started and pain better controlled. repeat CCT with improvement will continue to follow. Patient seen and examined independently by me. Below discussed and I agree withthe note except where indicated. See my additional comments below. Labs, cultures, and radiographs where available were reviewed. Changes were made in the orders as necessary. I discussed patient concerns with the patient's nurse and instructions were given. Please see our orders for the updated patient careplan. Assessment/Plan (1) Back pain: Status: Acute Qualifiers: Back pain location: low back pain Chronicity: acute Back pain laterality: unspecified Sciatica presence: with sciatica Sciatica laterality: sciatica of right side Qualified Code(s): M54.41 - Lumbago with sciatica, rightside (2) Sciatica: Status: Acute Qualifiers: Laterality: unspecified laterality Qualified Code(s): M54.30 - Sciatica, unspecified side (3) Retroperitoneal abscess: Status: Acute Plan Hospitalist attending Surgery consulted Patient examined. Labs and vitals reviewed. AVSS. Pain well controlled NPO with meds okay. -flatus/-BM Probably ileus. Waiting for bowel to wake up. - Continue NPO. Gum and hard candy okay. - Once passing gas, okay to begin clears. Infection disease on board for antibiotic management. Due to negative CT scan and patient presentation improving, no surgical intervention needed at this time. Continue IS, antibiotics, ambulation as tolerated, and antiemetics. Will continue to follow Subjective Date of Service: 09/11/23 Patient Information: GEOVANNY MEJÍA is a 53 yr old F who was admitted on 09/08/23 for INTRA ABDOMINAL ABCESS. Patient expresses concerns: No Patient states: denies Shortness of breath or Chest pain Pain control: Well controlled CAM Tool Confusion Assessment Method (CAM Tool) 1. Acute onset and fluctuating course Is there evidence of an acute change in mental status from the patient's baseline?: No Did the (abnormal) behavior fluctuate during the day, that is tend to come and go or increase and decrease in severity?: No 2. Inattention Did the patient have difficulty focusing attention, for example, being easily distractible or having difficulty keeping track of what was being said?: No 3. Disorganized Thinking Was the patient?s thinking disorganized or incoherent, such as rambling or irrelevant conversation, unclear or illogical flow of ideas, or unpredictable switching from subject to subject?: No 4. Altered Level Of Consciousness Would you rate the patient's level of consciousness as Vigilant (hyper alert), Lethargic (drowsy, easily aroused), Stupor (difficult to arouse), OR Coma (unarousable)?: No CAM Score Does the patient have a positive CAM score? (Yes to all questions under number 1and 2, and Yes to question 3 or 4): No PRISME Did you utilize the PRISME method to identify, rule-out, and treat the possible causation of dementia?: No Objective Vital Signs Last 48 hours: Vital Signs - 48 hr Temp Pulse Resp BP Pulse Ox O2 Flow Rate 09/09/23 10:20 2 09/09/23 10:18 124 H 22 H 111/96 H 96 09/11/23 07:27 100.2 F 103 H 18 118/70 93 2.0 09/11/23 06:08 106 H 128/68 92 09/11/23 02:35 99.6 F 105 H 18 121/71 93 09/10/23 20:39 100.1 F 112 H 16 122/75 95 2.0 09/10/23 14:46 100.0 F 108 H 135/74 96 09/10/23 15:15 108 H 127/79 96 09/10/23 16:00 106 H 142/78 H 96 09/10/23 17:16 106 H 131/78 94 09/10/23 18:16 106 H 125/74 94 09/10/23 10:31 98.2 F 151/82 H 09/10/23 03:46 107 H 136/73 90 09/10/23 01:56 98.0 F 108 H 20 130/94 H 91 09/10/23 01:56 98.0 F 106 H 20 144/71 H 91 10/18/23 02:30 106 H 144/72 H 90 09/10/23 02:45 105 H 138/69 90 09/10/23 03:00 106 H 139/71 91 09/10/23 03:15 108 H 137/75 90 09/10/23 03:31 107 H 137/72 90 09/10/23 04:01 107 H 135/69 91 09/10/23 04:16 109 H 140/73 91 09/10/23 01:56 98.0 F 104 H 20 132/77 91 09/09/23 20:14 99.7 F 106 H 16 126/77 91 09/09/23 21:00 106 H 140/68 91 09/09/23 20:15 99.7 F 105 H 16 129/68 91 09/09/23 20:45 106 H 135/71 91 09/09/23 21:15 104 H 146/73 H 93 09/09/23 21:30 103 H 137/69 93 09/09/23 22:00 102 H 135/70 09/09/23 21:45 101 H 134/73 93 09/09/23 22:15 102 H 137/71 09/09/23 22:30 103 H 137/68 09/09/23 22:45 104 H 138/72 09/09/23 23:00 104 H 141/75 H 09/09/23 23:15 102 H 138/71 09/09/23 23:30 103 H 144/70 H 09/09/23 23:45 102 H 133/74 09/10/23 00:00 101 H 141/69 H 09/10/23 00:15 102 H 134/72 09/10/23 00:30 106 H 139/75 09/10/23 00:45 102 H 136/73 09/10/23 01:00 105 H 136/72 09/10/23 01:15 102 H 137/74 09/10/23 01:30 103 H 139/75 09/10/23 01:45 103 H 132/77 09/09/23 19:01 107 H 138/70 92 09/09/23 19:16 106 H 137/68 90 09/09/23 19:31 107 H 130/70 90 09/09/23 19:46 107 H 137/70 91 09/09/23 20:00 107 H 128/71 91 09/09/23 20:15 99.7 F 107 H 16 126/77 92 09/09/23 15:31 104 H 135/76 91 09/09/23 14:30 108 H 139/74 90 09/09/23 13:30 108 H 132/75 89 09/09/23 13:15 106 H 132/72 89 09/09/23 13:15 107 H 132/72 89 09/09/23 13:15 107 H 132/72 90 09/09/23 13:08 109 H 131/67 90 09/09/23 10:20 98.1 F 124 H 22 H 111/96 H Vital Signs (Last Set): Vital Signs - Last Set Temperature 100.2 F 09/11/23 07:27 Pulse Rate 103 H 09/11/23 07:27 Respiratory Rate 18 09/11/23 07:27 Blood Pressure 118/70 09/11/23 07:27 Oxygen Saturation% 93 09/11/23 07:27 Liters of Oxygen 2.0 09/11/23 07:27 Patient is: Afebrile Intake/Output totals: Intake & Output 09/10/23 09/11/23 09/11/23 22:59 06:59 14:59 Intake Total 956.04 230.22 Output Total 500 400 Balance 456.04 -169.78 Intake: IV Intake (ml) 956.04 230.22 PO Intake (ml) 0 0 Output: Indwelling Urinary Catheter 500 400 Output (ml) Other: Number of Stools 0 0 I/O: Equals output General Appearance: Positive Alert, Resting Comfortably and Cooperative; Negative Acute Distress Skin: Positive Color Normal Cardiovascular: Positive Regular Rate and Rhythm and S1 S2 Lungs: Negative Respiratory Distress Abdomen: Positive Soft and Tender to palpation (mildly); Negative BM or Flatus Extremities: Positive Activity as expected and Warm and Dry; Negative Swelling Neurologic: Positive Grossly Intact, Moves all extremities and A & O x3 Psychological: Positive Mood & Affect Normal Device: Drain(s) (serosang) Lab Results: 09/11/23 04:58 09/11/23 04:58 Laboratory Results - last 24 hr 09/11/23 04:58 WBC 29.8 H RBC 3.54 L Hgb 9.8 L Hct 30.1 L MCV 84.9 MCH 27.7 MCHC 32.6 L RDW 16.1 H Plt Count 180 Sodium 132 L Potassium 3.7 Chloride 98 L Carbon Dioxide 23 Anion Gap 11 BUN 15 Creatinine 0.55 L GFR Calculation > 60 Fasting Glucose 83 Calcium 7.50 L Magnesium 2.3 Microbiology 09/08/23 18:15 Blood,Venous - Final 09/08/23 18:15 Blood,Venous Blood Culture - Preliminary Staphylococcus aureus 09/08/23 18:20 Blood,Venous Blood Culture - Preliminary Staphylococcus aureus Staphylococcus epidermidis 09/08/23 Unknown Perianal MRSA Screen - Final No growth of MRSA after 2 days. 09/08/23 15:46 Abdominal fluid Gram Stain - Final 09/08/23 15:46 Abdominal fluid Body Fluid Culture - Preliminary Staphylococcus aureus Entered by: Ryanne Morales PA-C on 09/11/2314 Report Signed by: Ryanne Morales PA-C on 09/11/2317 <<Signature on File>> < 1739 <<Signature on File>> <Electronically signed by Rohit Pimentel MD> [facility] Work Phone: 1(608) 925-528211-16-2023 Progress note Author Rohit Pimentel [facility] October 09, 2023 5:39pm Note Date/Time September 12, 2023 8 :51am [facility] Medical Records Patient: GEOVANNY MEJÍA. : 1970 [place], [place] [address] Location: [phone] Unit #: [id number] Progress Note Surgical Ryanne Morales PA-C Service Dt/Tm: 09/12/23 0850 53 year old male with intraabdominal abscess. S/P IR drainage. Brian follow. IV antibiotics. CT with improvement but worsening leukocytosis. ID on board. No general surgery intervention at this time. Patient seen and examined independently by me. Below discussed and I agree withthe note except where indicated. See my additional comments below. Labs, cultures, and radiographs where available were reviewed. Changes were made in theorders as necessary. I discussed patient concerns with the patient's nurse and instructions were given. Please see our orders for the updated patient care plan. Assessment/Plan (1) Back pain: Status: Acute Qualifiers: Back pain laterality: unspecified Back pain location: low back pain Chronicity: acute Sciatica laterality: sciatica of right side Sciatica presence: with sciatica Qualified Code(s): M54.41 - Lumbago with sciatica, right side (2) Sciatica: Status: Acute Qualifiers: Laterality: unspecified laterality Qualified Code(s): M54.30 - Sciatica, unspecified side (3) Retroperitoneal abscess: Status: Acute Plan Hospitalist attending Surgery consulted Patient examined. Labs and vitals reviewed. AVSS. Pain well controlled. WBC trending up, however CT scan shows continued improvement of intraabdominal abscess. Will allow medicine/ID to manage WBC. No surgical intervention needed for infection control. NPO with meds okay. -flatus/-BM Probably ileus. Waiting for bowel to wake up. - Continue NPO. Gum and hard candy okay. - Once passing gas, okay to begin clears. Continue IS, antibiotics, ambulation as tolerated, and antiemetics. Will continue to follow Subjective Date of Service: 09/12/23 Patient Information: GEOVANNY MEJÍA is a 53 yr old F who was admitted on 09/08/23 for INTRA ABDOMINAL ABCESS. Patient expresses concerns: No Patient states: denies Shortness of breath or Chest pain Pain control: Well controlled CAM Tool Confusion Assessment Method (CAM Tool) 1. Acute onset and fluctuating course Is there evidence of an acute change in mental status from the patient's baseline?: No Did the (abnormal) behavior fluctuate during the day, that is tend to come and go or increase and decrease in severity?: No 2. Inattention Did the patient have difficulty focusing attention, for example, being easily distractible or having difficulty keeping track of what was being said?: No 3. Disorganized Thinking Was the patient?s thinking disorganized or incoherent, such as rambling or irrelevant conversation, unclear or illogical flow of ideas, or unpredictable switching from subject to subject?: No 4. Altered Level Of Consciousness Would you rate the patient's level of consciousness as Vigilant (hyper alert), Lethargic (drowsy, easily aroused), Stupor (difficult to arouse), OR Coma (unarousable)?: No CAM Score Does the patient have a positive CAM score? (Yes to all questions under number 1and 2, and Yes to question 3 or 4): No Objective Vital Signs Last 48 hours: Vital Signs - 48 hr Temp Pulse Resp BP Pulse Ox O2 Flow Rate 09/11/23 20:00 2 09/11/23 10:09 2 09/11/23 10:45 2 09/11/23 08:35 2 09/12/23 07:42 98.9 F 103 H 20 134/66 94 2.0 09/12/23 06:17 98.8 F 101 H 20 119/69 91 09/11/23 21:44 98.3 F 104 H 20 148/80 H 94 2.0 09/11/23 15:39 100.7 F H 107 H 18 130/66 95 2.0 09/11/23 12:14 98.2 F 104 H 20 139/104 H 95 2.0 09/11/23 07:27 100.2 F 103 H 18 118/70 93 2.0 09/11/23 06:08 106 H 128/68 92 09/11/23 02:35 99.6 F 105 H 18 121/71 93 09/10/23 20:39 100.1 F 112 H 16 122/75 95 2.0 09/10/23 14:46 100.0 F 108 H 135/74 96 09/10/23 15:15 108 H 127/79 96 09/10/23 16:00 106 H 142/78 H 96 09/10/23 17:16 106 H 131/78 94 09/10/23 18:16 106 H 125/74 94 09/10/23 10:31 98.2 F 151/82 H Vital Signs (Last Set): Vital Signs - Last Set Temperature 98.9 F 09/12/23 07:42 Pulse Rate 103 H 09/12/23 07:42 Respiratory Rate 20 09/12/23 07:42 Blood Pressure 134/66 09/12/23 07:42 Oxygen Saturation% 94 09/12/23 07:42 Liters of Oxygen 2.0 09/12/23 07:42 Patient is: Afebrile Intake/Output totals: Intake & Output 09/11/23 09/12/23 09/12/23 22:59 06:59 14:59 Intake Total 886.81 686.77 Output Total 500 1200 Balance 386.81 -513.23 Intake: IV Intake (ml) 866.81 666.77 PO Intake (ml) 20 20 Output: Indwelling Urinary Catheter 500 1200 Output (ml) Other: Number of Stools 0 I/O: Equals output General Appearance: Positive Alert, Resting Comfortably and Cooperative; Negative Acute Distress Skin: Positive Color Normal Cardiovascular: Positive Regular Rate and Rhythm and S1 S2 Lungs: Negative Respiratory Distress Abdomen: Positive Soft and Tender to palpation (mildly); Negative BM or Flatus Extremities: Positive Activity as expected and Warm and Dry; Negative Swelling Neurologic: Positive Grossly Intact, Moves all extremities and A & O x3 Psychological: Positive Mood & Affect Normal Device: Drain(s) (serosang) Lab Results: 09/12/23 03:59 09/12/23 03:59 Laboratory Results - last 24 hr 09/12/23 03:59 WBC 31.4 H RBC 3.49 L Hgb 9.8 L Hct 29.6 L MCV 84.8 MCH 28.0 MCHC 33.0 RDW 16.0 Plt Count 241 Sodium 132 L Potassium 3.6 Chloride 97 L Carbon Dioxide 25 Anion Gap 10 BUN 17 Creatinine 0.57 L GFR Calculation > 60 Fasting Glucose 88 Calcium 7.60 L Magnesium 2.2 Microbiology 09/11/23 13:40 Blood,Venous Blood Culture - Preliminary No growth after 1 day, cultures held 5 days. 09/11/23 13:35 Blood,Venous Blood Culture - Preliminary No growth after 1 day, cultures held 5 days. 09/08/23 15:46 Abdominal fluid Gram Stain - Final 09/08/23 15:46 Abdominal fluid Body Fluid Culture - Preliminary Staphylococcus aureus 09/08/23 18:20 Blood,Venous Blood Culture - Final Staphylococcus aureus Staphylococcus epidermidis 09/08/23 18:15 Blood,Venous - Final 09/08/23 18:15 Blood,Venous Blood Culture - Final Staphylococcus aureus Entered by: Ryanne Morales PA-C on 09/12/23 0864 Report Signed by: Ryanne Morales PA-C on 09/12/23 1258 <<Signature on File>> < 8501 <<Signature on File>> <Electronically signed by Rohit Pimentel MD> [facility] Work Phone: 1(203) 860-337611-04-2023 Progress note Author Rohit Pimentel [facility] September 27, 2023 11:24am Note Date/Time September 15, 2023 5 :09pm [facility] Medical Records Patient: GEOVANNY MEJÍA [address] : 1970 [place] [address] Location: [phone] Unit #: [id number] Status Note/Update Ryanne Morales PA-C Service Dt/Tm: 09/15/231708 Note: GEOVANNY MEJÍA is a 53 yr old F who was admitted on 09/08/23 for INTRA ABDOMINAL ABCESS. No surgical interventions required at this time with presentation improving, will sign off case. Entered by: Ryanne Morales PA-C on 09/15/231708 Report Signed by: Ryanne Morales PA-C on 09/15/231708 <<Signature on File>> < 1124 <<Signature on File>> <Electronically signed by Rohit Pimentel MD> [facility] Work Phone: 1(109) 123-510911-04-2023 Consult note Author Alec Clemons [facility] September 27, 2023 11:05am Note Date/Time September 13, 2023 2 :02am [facility] Medical Records Patient: GEOVANNY MEJÍA. : 1970 [place] [address] Location: [phone] Unit #: [id number] Consultation Lucy Lara PA-C Service Date: 09/13/23 ADDENDUM: completed ROS. Negative with exception of what is mentioned in HPI Addendum Entered by: Lucy Lara PA-C on 09/26/23 at 0926 Addendum Signed by: Lucy Lara PA-C on 09/26/23 0926 <<Signature on File>> < 1105 <<Signature on File>> <Electronically signed by Alec Clemons MD> History of Present Illness Date of Consultation: 09/13/23 Time Seen: 01:30 History of Present Illness: GEOVANNY MEJÍA is a 53 yr old F who was admitted on 09/08/23 for INTRA ABDOMINAL ABCESS. 53-year-old female with past medical history of hypertension transferred from [facility] for abdominal pain on 09/08/2023. She was evaluated [facility] surgery and found to have left-sided retroperitoneal abscess on the CT scan. Abscess measured 4.7 x 2.6 x 4.5 cm. Per records she was also complaining of back pain but does have a history of sciatica. She was evaluatedby surgery who recommended IR for percutaneous draining. Fluid obtained from drain was purulent and consistent with abscess. Blood cultures and abscess cultures positive for MSSA and placed on cefazolin. She continued to developed worsening pain and weakness in her legs to the point that she is unable to move her lower extremity. Neurosurgery consulted recommended lumbar MRI for further evaluation. Lumbar MRI suggestive of epidural abscess posterior to T10 and T11 please see official report. Repeat thoracic MRI ordered for further evaluation. Allergies/Adverse Reactions No Known Drug Allergies Allergy (Verified 09/08/23 09:58) Home Medications No Home Meds 09/09/23 [Confirmed 09/09/23] Past Medical History Medical History (Updated 09/13/23 @ 03:15 by Jeb Mackey DO) HTN (hypertension) Past Surgical History Surgical History (Updated 09/13/23 @ 02:34 by Chante Martínez CRNA) Intra-abdominal abscess DRAINED Social History Alcohol Amount: Socially/Occasionally Street Drugs: None Smoking Status: Former smoker Type of Tobacco: Cigarettes Smoking Amount: < 1 pack per day Smoking Stop Date: 09/05/23 Family History Denies family history of No pertinent family history Physical Exam Last Vital Signs Temp Pulse Resp BP Pulse Ox O2 Flow Rate 101.4 F H 103 H 18 120/71 94 2.0 09/13/23 01:39 09/13/23 01:39 09/12/23 19:53 09/12/23 19:53 09/13/23 01:39 09/12/23 21:30 Height (Ft & In) 5 ft 4 in Admitting (IV Pump) Weight 83 kg Actual Weight (Kg) 83 kg General Appearance: Alert and Other (resting, painful) Eyes: EOMI Skin: Color Normal and Warm, Dry Extremities: Warm and Dry Neurologic: Other (spontaneous movement of UE . 0/4 power in BLE.) Psychological: Mood & Affect Normal Vitals stable Leukocytosis Laboratory Last Values WBC 31.4 th/cmm (4.4-10.5) H 09/12/23 03:59 RBC 3.49 mil/cmm (4.00-5.10) L 09/12/23 03:59 Hgb 9.8 gm/dL (12.0-15.0) L 09/12/23 03:59 Hct 29.6 % (35.0-44.0) L 09/12/23 03:59 MCV 84.8 CU MILKA (80-97) 09/12/23 03:59 MCH 28.0 PG (27.5-33.0) 09/12/23 03:59 MCHC 33.0 gm/dL (33.0-36.0) 09/12/23 03:59 RDW 16.0 % (12.0-16.0) 09/12/23 03:59 Plt Count 241 th/cmm (150-400) 09/12/23 03:59 Neutrophils % (Manual) 85.0 % (40-70) H 09/08/23 18:27 Band Neutrophils % 10.0 % (2-6) H 09/08/23 18:27 Lymphocytes % (Manual) 4.0 % (15-45) L 09/08/23 18:27 Monocytes % (Manual) 1.0 % (2-10) L 09/08/23 18:27 Abs Neuts (Manual) 38518 /cmm (2073-8826) H 09/08/23 18:27 Abs Lymphs (Manual) 996 /cmm (4882-4111) L 09/08/23 18:27 Abs Monocytes (Manual) 249 /cmm (0-800) 09/08/23 18:27 Absolute Eos (Manual) 0 /cmm (0-500) 09/08/23 18:27 Abs Basophils (Manual) 0 /cmm (0-200) 09/08/23 18:27 Anisocytosis 1+ 09/08/23 18:27 RBC Morph Comment Test not indicated 09/08/23 18: PT 18.5 Sec (9.6-13.3) H 09/13/23 00:49 INR 1.59 (0.9-1.2) H 09/13/23 00:49 Sodium 132 mEq/L (135-145) L 09/12/23 03:59 Potassium 3.6 mEq/L (3.6-5.0) 09/12/23 03:59 Chloride 97 mEq/L (101-111) L 09/12/23 03:59 Carbon Dioxide 25 mEq/L (21-32) 09/12/23 03:59 Anion Gap 10 (4-12) 09/12/23 03:59 BUN 17 mg/dL (7-20) 09/12/23 03:59 Creatinine 0.57 mg/dL (0.60-1.30) L 09/12/23 03:59 GFR Calculation > 60 (60-) 09/12/23 03:59 Random Glucose 112 mg/dL (70-110) H 09/08/23 18:27 Fasting Glucose 88 mg/dL (70-110) 09/12/23 03:59 Lactic Acid 1.1 mmol/L (0.5-2.0) 09/08/23 18:27 Calcium 7.60 mg/dL (8.8-10.5) L 09/12/23 03:59 Ionized Calcium 1.07 mmol/L (1.15-1.29) L 09/12/23 14:08 Magnesium 2.2 mg/dL (1.8-2.5) 09/12/23 03:59 Total Bilirubin 0.4 mg/dL (0.2-1.0) 09/08/23 18:27 AST 11 IU/L (15-41) L 09/08/23 18:27 ALT 20 IU/L (10-40) 09/08/23 18:27 Alkaline Phosphatase 276 IU/L (39-118) H 09/08/23 18:27 Total Protein 6.0 g/dL (6.2-8.0) L 09/08/23 18:27 Albumin 2.7 g/dL (3.5-5.0) L 09/08/23 18:27 Albumin/Globulin Ratio 0.8 (1.5-2.5) L 09/08/23 18:27 Peritoneal Creatinine 0.7 mg/dL 09/08/23 15:46 Pleural Triglycerides 102 mg/dL 09/08/23 15:46 Nasal Screen MRSA (PCR) NOT DETECTED (NotDetected) 09/08/23 Unknown Fecal Screen VRE (PCR) Negative (Negative) 09/08/23 Unknown Random Vancomycin 18.3 mcg/mL (15.0-40.0) 09/09/23 09:18 Slides for Path Review Cancelled 09/12/23 03:59 Diagnostic Data: 09/12/23 10:31 CT Lumbar Spine W/O Cont [id number] Urgent 09/12/23 14:27 Lumbar Spine w/wo Contrast MRI [MRI Lumbar Spine w/wo Contr] Stat Assessment and Plan (1) Bacteremia: (2) Retroperitoneal abscess: Plan Lumbar MRI suggestive of T10-T11 abscess. Order thoracic MRI for further evaluation. If thoracic MRI does confirm presence of abscess patient will benefit from surgical intervention. Patient seen shortly after completing thoracic MRI Extra-axial fluid noted dorsally from approximately T9-T11 in addition to ventral fluid focused at T4. Over the past 24 to 48 hours, the patient has beenexperiencing excruciating diffuse pain and weakness to the point that she is notambulatory. When asked the last time she was able to ambulate, she states that she has been unable to determine the duration of her neurologic compromise. Herpain has been affecting the upper and lower portions of her back to the point that she is required a continuous GLO[employer] CHIE[employer] CREATIVE OFFICER. She has had difficulty walking since presentation but was not ambulatory at least 12 to 24 hours prior to obtaining our studies. In the MRI suite, she states that she is able to feel light touch in the distal lower extremities bilaterally and identifying tactile locations. Her bilateral lower extremities are without spontaneous movement. There is no evidence of clonus. She has positive straight legs bilaterally. Bilateral upper extremity strength 4+/5 with normal sensation. Patient is without photophobia and withoutnuchal rigidity. I discussed with the patient the need for emergent surgery and the importance ofof evacuating what ever extra-axial fluid collections are present in both the upper and lower thoracic spine. I explained that I would perform either complete or partial laminectomies depending on the quality of the fluid. I alsoexplained that there is a chance she may not regain any type of neurologic function in her legs bilaterally. It is my hope that she will gradually improvewith aggressive therapy and time. It will be important for the primary service to continue to aggressively determine the source of this infection. cc: Alec Clemons MD; Lucy Lara PA-C; None Dictated by: Lucy Lara PA-C on 09/13/23155 Entered by: Lucy Lara PA-C on 09/13/23155 Report Signed by: Lucy Lara PA-C on 09/13/23 0207 <<Signature on File>> < 1502 <<Signature on File>> <Electronically signed by Alec Clemons MD> [facility] Work Phone: 1(188) 539-523711-04-2023 [facility] Patient: GEOVANNY MEJÍA [address] : 1970 [place], [place] [address] Location: [address] [place] [address] Unit #: [id number] Consultation Lucy Lara PA-C Service Date: 09/13/23 ADDENDUM: completed ROS. Negative with exception of what is mentioned in HPI Addendum Entered by: Lucy Lara PA-C on 09/26/23 at 0926 Addendum Signed by: Lucy Lara PA-C on 09/26/23 09 < > Addendum Signed by: Alec Clemons MD on 09/27/23 1105 < > History of Present Illness Date of Consultation: 09/13/23 Time Seen: 01:30 History of Present Illness: GEOVANNY MEJÍA is a 53 yr old F who was admitted on 09/08/23 for INTRA ABDOMINAL ABCESS. 53-year-old female with past medical history of hypertension transferred from [facility] for abdominal pain on 09/08/2023. She was evaluated at [facility] surgery and found to have left-sided retroperitoneal abscess on the CT scan. Abscess measured 4.7 x 2.6 x 4.5 cm. Per records she was also complaining of back pain but does have a history of sciatica. She was evaluated by surgery who recommended IR for percutaneous draining. Fluid obtained from drain was purulent and consistent with abscess. Blood cultures and abscess cultures positive for MSSA and placed on cefazolin. She continued to developed worsening pain and weakness in her legs to the point that she is unable to move her lower extremity. Neurosurgery consulted recommended lumbar MRI for further evaluation. Lumbar MRI suggestive of epidural abscess posterior to T10 and T11 please see official report. Repeat thoracic MRI ordered for further evaluation. Allergies/Adverse Reactions No Known Drug Allergies Allergy (Verified 09/08/23 09:58) Home Medications No Home Meds 09/09/23 [Confirmed 09/09/23] Past Medical History Medical History (Updated 09/13/23 @ 03:15 by Jeb Mackey DO) HTN (hypertension) Past Surgical History Surgical History (Updated 09/13/23 @ 02:34 by Chante Martínez CRNA) Intra-abdominal abscess DRAINED Social History Alcohol Amount: Socially/Occasionally Street Drugs: None Smoking Status: Former smoker Type of Tobacco: Cigarettes Smoking Amount: < 1 pack per day Smoking Stop Date: 09/05/23 Family History Denies family history of No pertinent family history Physical Exam Last Vital Signs Temp Pulse Resp BP Pulse Ox O2 Flow Rate 101.4 F H 103 H 18 120/71 94 2.0 09/13/23 01:39 09/13/23 01:39 09/12/23 19:53 09/12/23 19:53 09/13/23 01:39 09/12/23 21:30 Height (Ft AND In) 5 ft 4 in Admitting (IV Pump) Weight 83 kg Actual Weight (Kg) 83 kg General Appearance: Alert and Other (resting, painful) Eyes: EOMI Skin: Color Normal and Warm, Dry Extremities: Warm and Dry Neurologic: Other (spontaneous movement of UE . 0/4 power in BLE.) Psychological: Mood AND Affect Normal Vitals stable Leukocytosis Laboratory Last Values WBC 31.4 th/cmm (4.4-10.5) H 09/12/23 03:59 Diagnostic Data: 09/12/23 10:31 CT Lumbar Spine W/O Cont [id number] Urgent 09/12/23 14:27 Lumbar Spine w/wo Contrast MRI [MRI Lumbar Spine w/wo Contr] Stat Assessment and Plan (1) Bacteremia: (2) Retroperitoneal abscess: Plan Lumbar MRI suggestive of T10-T11 abscess. Order thoracic MRI for further evaluation. If thoracic MRI does confirm presence of abscess patient will benefit from surgical intervention. Patient seen shortly after completing thoracic MRI Extra-axial fluid noted dorsally from approximately T9-T11 in addition to ventral fluid focused at T4. Over the past 24 to 48 hours, the patient has been experiencing excruciating diffuse pain and weakness to the point that she is not ambulatory. When asked the last time she was able to ambulate, she states that she has been unable to determine the duration of her neurologic compromise. Her pain has been affecting the upper and lower portions of her back to the point that she is required a continuous GLOBAL CHIEF CREATIVE OFFICER. She has had difficulty walking since presentation but was not ambulatory at least 12 to 24 hours prior to obtaining our studies. In the MRI suite, she states that she is able to feel light touch in the distal lower extremities bilaterally and identifying tactile locations. Her bilateral lower extremities are without spontaneous movement. There is no evidence of clonus. She has positive straight legs bilaterally. Bilateral upper extremity strength 4+/5 with normal sensation. Patient is without photophobia and without nuchal rigidity. I discussed with the patient the need for emergent surgery and the importance of of evacuating what ever extra-axial fluid collections are present in both the upper and lower thoracic spine. I ex (more content not included)...[facility] 09-26-2023 History and physical note Author Willy Lechuga [facility] September 26, 2023 3:11pm Note Date/Time September 08, 2023 1 :58pm [facility] Medical Records Patient: GEOVANNY MEJÍA[address] : 1970 [place], [place] [address] Location: [phone] [id number] ADDENDUM: Past Medical History Medical History?(Updated 09/08/23 @ 14:48 by Willy [facility]MD Anika) HTN (hypertension) Past Surgical History Surgical History?(Updated 09/08/23 @ 14:50 by Bryant Epperson APRN, MONIK) No pertinent past surgical history Social History Smoking Status:? Former smoker Type of Tobacco:? Cigarettes Smoking Amount:? < 1 pack per day Smoking Stop Date:? 09/05/23 Family History ?(Updated 09/08/23 @ 14:51 by Bryant Epperson APRN, MONIK) Denies family history of No pertinent family history Addendum Entered by: Willy Lechuga MD (SCP) on 09/26/23 at 1511 Addendum Signed by: Ankush Perez[facility]illy Donaldson MD on 09/26/23 1511 <<Signature on File>> <Electronically signed by Willy Lechuga MD (SCP)> Addendum Signed by: on Date of Entry Into Hospital: 09/08/23 Date of Service: 09/08/23 Time Seen: 13:54 Patient Information: Primary Care Provider: None Chief Complaint: INTRA ABDOMINAL ABCESS History Obtained From: Patient and EMR History of Present Illness: 53 old female with a past medical history of hypertension, no home medications on file, initially transferred from [facility] for possible intra-abdominal abscess. History and physical is limited due to no records available and patient was in pain at time of my clinical exam. As per EMR I did see that she had a left retroperitoneal fluid collection with moderate inflammation measuring4.7 X2.6X 4.5 cm with possible abscess formation. She was subsequently transferred to [facility] for general surgery consultation. On arrival as per RN she was complaining of some back pain, she does have a history of sciatica and takes Neurontin 600 mg at home however her pain significantly worsened when I went into the room and she had some rigidity upon clinical exam but no tenderness. She did have significant back pain. I did look at CT lumbarspine done at outside facility which was last night, this did not show any acutefracture. She does have significant multilevel degenerative disease which is stable other than slightly more prominent bulging disc at L2-L3 vertebrae and a 2 mm nonobstructing kidney stone on the left side. I did order another left lateral abdominal x-ray to rule out any intraperitonealair stat and give her fentanyl for immediate pain control, I did discuss with general surgery Dr Pimentel stat and they said that they were going to evaluate the patient, patient was started on IV fluids and Zosyn with pancultures orderedwe will continue to follow closely. Patient Registration Status: Inpatient Allergies/Adverse Reactions No Known Drug Allergies Allergy (Verified 09/08/23 09:58) Past Medical History Medical History (Updated 09/08/23 @ 14:48 by Willy Lechuga ([facility])MD) HTN (hypertension) Social History Smoking Status: Former smoker Type of Tobacco: Cigarettes Smoking Amount: < 1 pack per day Smoking Stop Date: 09/05/23 Review of Systems Other: REVIEW OF SYSTEMS: Constitutional: Positive for back pain. Respiratory: Negative for shortness of breath, wheezing Cardiovascular: Negative for chest pain, palpitations Gastrointestinal: Negative for abdominal pain. Musculoskeletal: Back pain Physical Exam Last Vital Signs Temp Pulse Resp BP Pulse Ox O2 Flow Rate 98.3 F 108 H 20 147/93 H 93 2 09/08/23 09:57 09/08/23 13:30 09/08/23 13:27 09/08/23 13:30 09/08/23 13:30 09/08/23 13:30 Height (Ft & In) 5 ft 4 in Admitting (IV Pump) Weight 83 kg Actual Weight (Kg) 83 kg Physical Exam: General appearance: Appears in mild to moderate distress. Eyes: Sclera clear, pupils equal ENT: Moist mucus membranes, no thrush. Trachea midline. Cardiovascular: Regular rhythm, normal S1, S2. No murmur, gallop, rub. No edema in lower extremities Respiratory: Clear to auscultation bilaterally, no wheeze, good inspiratory effort Gastrointestinal: Guarding, bowel sounds positive. No tenderness. Musculoskeletal: Mild to moderate back tenderness. Assessment/Plan (1) Retroperitoneal abscess: Status: Acute Plan: Left sided RP abscess on CT measuring 4.7 X2.6X 4.5 cm. Continue IV fluids and Zosyn for now. Blood cultures taken. We will do pain control and discussed with general surgery stat as above. Will trend lactate and stat CBC and BMP ordered. Keep on Tele. Vitals stable for now. We will continue to follow closely. (2) Sciatica: Status: Acute Qualifiers: Laterality: unspecified laterality Qualified Code(s): M54.30 - Sciatica, unspecified side Plan: We will give 1 dose of fentanyl followed by IV pain medication as needed. Continue to follow closely. (3) Back pain: Status: Acute Qualifiers: Back pain location: low back pain Chronicity: acute Back pain laterality: unspecified Sciatica presence: with sciatica Sciatica laterality: sciatica of right side Qualified Code(s): M54.41 - Lumbago with sciatica, rightside Plan: As above. cc: Wil[facility] Lechuga MD; None Dictated by: Willy Lechuga MD (SCP) on 09/08/23 1354 Entered by: Willy Lechuga MD (SCP) on 09/08/23 1354 Report Signed by: Willy Lechuga MD (SCP) on 09/08/23 6028 <<Signature on File>> <Electronically signed by Willy Lechuga MD (SCP)> Report Signed by: on [facility] Work Phone: 1(222) 736-635211-03-2023 [facility] Medical Records Patient: GEOVANNY MEJÍA. : 1970 [place] [address] Location: [facility] [phone] Unit #: [id number] History and Physical Willy Lechuga MD (SCP) ADDENDUM: Past Medical History Medical History???(Updated 09/08/23 @ 14:48 by Willy Lechuga MD (SCP)) HTN (hypertension) Past Surgical History Surgical History???(Updated 09/08/23 @ 14:50 by Bryant Epperson, SULPHATE TESTER, FLOOR LAYER HELPER) No pertinent past surgical history Social History Smoking Status:??? Former smoker Type of Tobacco:??? Cigarettes Smoking Amount:??? < 1 pack per day Smoking Stop Date:??? 09/05/23 Family History ???(Updated 09/08/23 @ 14:51 by Bryant Epperson APRN, FLOOR LAYER HELPER) Denies family history of No pertinent family history Addendum Entered by: Willy [facility] Anika on 09/26/23 at 1511 Addendum Signed by: Ankush [facility])Willy MD on 09/26/23 1511 < > Addendum Signed by: on Date of Entry Into Hospital: 09/08/23 Date of Service: 09/08/23 Time Seen: 13:54 Patient Information: Primary Care Provider: None Chief Complaint: INTRA ABDOMINAL ABCESS History Obtained From: Patient and EMR History of Present Illness: 53 old female with a past medical history of hypertension, no home medications on file, initially transferred from [facility] for possible intra-abdominal abscess. History and physical is limited due to no records available and patient was in pain at time of my clinical exam. As per EMR I did see that she had a left retroperitoneal fluid collection with moderate inflammation measuring 4.7 X2.6X 4.5 cm with possible abscess formation. She was subsequently transferred to [facility] for general surgery consultation. On arrival as per RN she was complaining of some back pain, she does have a history of sciatica and takes Neurontin 600 mg at home however her pain significantly worsened when I went into the room and she had some rigidity upon clinical exam but no tenderness. She did have significant back pain. I did look at CT lumbar spine done at outside facility which was last night, this did not show any acute fracture. She does have significant multilevel degenerative disease which is stable other than slightly more prominent bulging disc at L2-L3 vertebrae and a 2 mm nonobstructing kidney stone on the left side. I did order another left lateral abdominal x-ray to rule out any intraperitoneal air stat and give her fentanyl for immediate pain control, I did discuss with general surgery Dr Margarito frias and they said that they were going to evaluate the patient, patient was started on IV fluids and Zosyn with pancultures ordered we will continue to follow closely. Patient Registration Status: Inpatient Allergies/Adverse Reactions No Known Drug Allergies Allergy (Verified 09/08/23 09:58) Past Medical History Medical History (Updated 09/08/23 @ 14:48 by Willy Lechuga ([facility])MD) HTN (hypertension) Social History Smoking Status: Former smoker Type of Tobacco: Cigarettes Smoking Amount: < 1 pack per day Smoking Stop Date: 09/05/23 Review of Systems Other: REVIEW OF SYSTEMS: Constitutional: Positive for back pain. Respiratory: Negative for shortness of breath, wheezing Cardiovascular: Negative for chest pain, palpitations Gastrointestinal: Negative for abdominal pain. Musculoskeletal: Back pain Physical Exam Last Vital Signs Temp Pulse Resp BP Pulse Ox O2 Flow Rate 98.3 F 108 H 20 147/93 H 93 2 09/08/23 09:57 09/08/23 13:30 09/08/23 13:27 09/08/23 13:30 09/08/23 13:30 09/08/23 13:30 Height (Ft AND In) 5 ft 4 in Admitting (IV Pump) Weight 83 kg Actual Weight (Kg) 83 kg Physical Exam: General appearance: Appears in mild to moderate distress. Eyes: Sclera clear, pupils equal ENT: Moist mucus membranes, no thrush. Trachea midline. Cardiovascular: Regular rhythm, normal S1, S2. No murmur, gallop, rub. No edema in lower extremities Respiratory: Clear to auscultation bilaterally, no wheeze, good inspiratory effort Gastrointestinal: Guarding, bowel sounds positive. No tenderness. Musculoskeletal: Mild to moderate back tenderness. Assessment/Plan (1) Retroperitoneal abscess: Status: Acute Plan: Left sided RP abscess on CT measuring 4.7 X2.6X 4.5 cm. Continue IV fluids and Zosyn for now. Blood cultures taken. We will do pain control and discussed with general surgery stat as above. Will trend lactate and stat CBC and BMP ordered. Keep on Tele. Vitals stable for now. We will continue to follow closely. (2) Sciatica: Status: Acute Qualifiers: Laterality: unspecified laterality Qualified Code(s): M54.30 - Sciatica, unspecified side Plan: We will give 1 dose of fentanyl followed by IV pain medication as needed. Continue to follow closely. (3) Back pain: Status: (more content not included)...[facility]10-30-2023 Progress note Author Evelyne Pena [facility] September 22, 2023 4:22pm Note Date/Time September 11, 2023 1 1:31am [facility] Case Management Patient: GEOVANNY MEJÍA [address] : 1970 [place], [place] [address] Location: [facility] [phone] [id number] [id number] Case Management Daily Note Evelyne Pena RN Service Date: 09/11/23 Case Mgmt Daily Note - Plan of Care [employer]icer [employer] Agrees with Attending and Consult Plan: Yes - Patient Preferences & Goals What is the patient's preference?: Home Care Recommended acute discharge goals: Home Care - Hospital Stay Days Day 1 Comment: 09/08 Met with patient in the room. Patient is from [place]. She is up here to visit her sister. Patient reporting she is normally independent. Doesnot have a PCP. Patient would like to use [facility] OP Pharm for meds. Planning to have her cousin pick her up at d/c. Contact is her cousin Ursula. Denies having LW/dPOA. [employer]: Evelyne Pena, RN Day 2 Comment: 09/09 Met with patient in the room. Patient asking to get up and move around. PT/OT to [facility]. S/p L ABD drain placement. Patient agreeable to [facility] for drain mgmt if needed. Reporting she will be going to [facility] at d/c to staywith her cousin Ursula. CM spoke with patients cousin Ursula via telephone who reports she is ok with [facility] coming to her home if patient would go there at d/c. Ursula reporting patient was homeless in [place] and recently move to [place] with faith Amaya. [employer]: Evelyne Pena, RN Day 3 Comment: 09/10 D/c needs pending medical course. Jr present. 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 PT/OT. ID c/s. Therapy recs for IPR vs OP PT. Will follow to assist with d/c needs. [employer]: Evelyne Pena, RN Day 4 Comment: 09/11 Met with patient in the room who is planning to d/c to her [facility] in [place], [place]. Patient is agreeable to [facility]. CM spoke with Ursula who is agreeable for patient to come there at d/c. Referral sent to [facility].Await approval. GLOBAL CHIEF CREATIVE OFFICER. ABD drain. NPO. ID c/s. PT/OT. [employer]: Evelyne Pena RN - Home Health/IV Infusion/Wound Vac Home Health Referral Indicated: Yes Home Health List Provided: Yes Indication for Home Health: Wound Care, Other Patient's Response: Yes Home Health Agencies: [facility] Patient given the option to view quality scores of facility?: Yes - Transportation Mode of Transportation: Private Vehicle - Respiratory Equipment Does the patient have a nebulizer at home?: No - * L * Length of Stay LOS (Including day of Admission and Discharge): 4 LOS Score: 4 - * C * Comorbidities Select All Conditions that Apply: No Comorbidity Condition Comorbidities Total Score: 0 - * E * Emergency Department Visits # of ER visits,6mos prior to admit,excl this admits ER visit: 0 Enter this number or 4 (whichever is smaller): 0 - LACE SCORE LACE Score: 4 - ANTICIPATED DISCHARGE Anticipated Discharge Date: 09/14/23 Is a ARCHIBALD Form Required?: No Entered by: Evelyne Pena RN on 09/11/23 1129 Report Signed by: Evelyne Pena RN on 09/22/23 1622 <<Signature on File>> <Electronically signed by Evelyne Pena RN> Co-Signed by: on [facility] Work Phone: 1(831) 216-498110-30-2023 Progress note Author Evelyne Pena [facility] September 22, 2023 4:22pm Note Date/Time September 12, 2023 1 0:33am [facility] Case Management Patient: GEOVANNY MEJÍA. : 1970 [place], [place] [address] Location: [phone] Unit #: [id number] Case Management Daily Note Evelyne Pena RN Service Date: 09/12/23 Case Mgmt Daily Note - Plan of Care [employer] Agrees with Attending and Consult Plan: Yes - Patient Preferences & Goals What is the patient's preference?: New SNF Recommended acute discharge goals: New SNF - COVID-19 Was Position Statement Letter Delivered?: Yes - Hospital Stay Days Day 1 Comment: 09/08 Met with patient in the room. Patient is from [place]. She is up here to visit her sister. Patient reporting she is normally independent. Doesnot have a PCP. Patient would like to use [facility] OP [facility] for meds. Planning to have her cousin pick her up at d/c. Contact is her cousin Ursula. Denies having LW/dPOA. [employer]: Evelyne Pena, RN Day 2 Comment: 09/09 Met with patient in the room. Patient asking to get up and move around. PT/OT to [facility]. S/p L ABD drain placement. Patient agreeable to [facility] for drain mgmt if needed. Reporting she will be going to [facility] at d/c to staywith her cousin Ursula. CM spoke with patients cousin Ursula via telephone who reports she is ok with [facility] coming to her home if patient would go there at d/c. Ursula reporting patient was homeless in [place] and recently move to [place] with faith Amaya. [employer]: Evelyne Pena, RN Day 3 Comment: 09/10 D/c needs pending medical course. Jr present. 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 PT/OT. ID c/s. Therapy recs for IPR vs OP PT. Will follow to assist with d/c needs. [employer]: Evelyne Pena, RN Day 4 Comment: 09/11 Met with patient in the room who is planning to d/c to her [facility] in [place], [place]. Patient is agreeable to [facility]. CM spoke with Ursula who is agreeable for patient to come there at d/c. Referral sent to [facility].Await approval. GLOBAL CHIEF CREATIVE OFFICER. ABD drain. NPO. ID c/s. PT/OT. [employer]: Evelyne Pena, RN Day 5 Comment: 09/12 Met with patient in the room to discuss d/c plan. Patient unable to move b/l LE. No sensation to RLE. Does have sesation to LLE. PT/OT recommending SNF, patient agreeable. She would like to go somewhere near her cousin Ursula in [place], [place]. CM assisted patient with changing her address withher [facility] insurance to an [place] address. SW c/s for SNF placement and [facility] assist with [place]. Patient will need a precert. 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 If patient would improve with mobility, she has been accepted to [facility]. CM spoke with Ursula via telephone to update. [employer]: Evelyne Pena RN - Home Health/IV Infusion/Wound Vac Home Health Referral Indicated: Yes Home Health List Provided: Yes Indication for Home Health: Wound Care, Other Patient's Response: Yes Home Health Agencies: [facility] Patient given the option to view quality scores of facility?: Yes - Transportation Mode of Transportation: Private Vehicle - Respiratory Equipment Does the patient have a nebulizer at home?: No - * L * Length of Stay LOS (Including day of Admission and Discharge): 5 LOS Score: 4 - * C * Comorbidities Select All Conditions that Apply: No Comorbidity Condition Comorbidities Total Score: 0 - * E * Emergency Department Visits # of ER visits,6mos prior to admit,excl this admits ER visit: 0 Enter this number or 4 (whichever is smaller): 0 - LACE SCORE LACE Score: 4 - ANTICIPATED DISCHARGE Anticipated Discharge Date: 09/16/23 Is a ARCHIBALD Form Required?: No Entered by: Evelyne Pena RN on 09/12/23 1029 Report Signed by: Evelyne Pena RN on 09/22/23 1622 <<Signature on File>> <Electronically signed by Evelyne Pena RN> Co-Signed by: on [facility] Work Phone: 1(524) 943-944310-27-2023 Progress note Author Jacqueline Edwards [facility] September 19, 2023 11:08am Note Date/Time September 19, 2023 1 1:08am [facility] Manager Union Patient: GEOVANNY MEJÍA [address] : 1970 [place], [place] [address] Location: [phone] Unit #: [id number] Social Work Daily Note Jacqueline Edwards BASEBALL HAND SEWER, SUPERVISOR SOLDERING Service Date: 09/19/23 Daily Note - * Psychosocial Assessment * I have reviewed nursing and case management psychosocial information.: Yes - * Care Coordination Communication * Care Coordination Communication: Spoke with patient's family via phone - * COVID-19 * Was Position Statement Letter Delivered?: Yes - * Hospital Stay Days * Day 1 Note: 09/15/23 SW consult for SNF. Pt has recently relocated to the area, living with her cousin. Pt is now in need of SNF placement for rehab. pt is needing to transfer her [facility] medicaid dual plan. SW got a copy of pts card, pt was unable to move much and couldnt sit up, she needed SW assistance to get her insurance card out of her wallet. Nurse LENY Hickey called with pt on Friday to transfer the Medicare portion. The Medicaid portion needs cancelled and re-submitted for [place] Medicaid for pts county she will be living in. SW made contact with [facility] for assistance and to re-submit pts medicaid vilma. Pt would like a facility near her cousin ursula's house. There are looking at [facility] in [place], and [facility]. SW made contact with [facility] and they are not in network with [facility]. [facility] is in Network. SWfollow up with pts cousin via phone as she would like her to help with finding anursing home. Per Ursula there is another facility near her [facility]. SW made contact with [facility], they are in network with [facility], Per there admissions person Emmanuel they would be willing to bring pt in with a pending Medicaid number, per Emmanuel both Medicare and Medicaid would need transfered. Referral sent to [facility] for review. Marisol from [facility] to meet with pt. SW to also meet back to assist with canceling [place] if Marisol has not been able to assist pt. Web Design Intern: Jacqueline Edwards, BASEBALL HAND SEWER, SUPERVISOR SOLDERING Day 2 Note: 09/15/23 MANOLO met back with pt, pt was asleep but easily aroused. MANOLO explained to pt that we needed to terminate her [place] Medicaid before submitting an application for [place] Medicaid and this needed to be initiated prior to her Dcing to a SNF. MANOLO called [facility] and had to leave a VM requesting that they call pt back to so that pt could terminate her [place] Medicaid there and give her new address and county. Web Design Intern: Jacqueline Edwards, BASEBALL HAND SEWER, SUPERVISOR SOLDERING Day 3 Note: 09/16/23 Pt transfer pending for another hospital. Referral was sent tot SNFS, [facility] was able to accept, [facility] was reviewing. Both pt and pt cousin Ursula aware of possible transfer out, but know SNF is still the back up plan, they can also follow back when pt Dcs from other setting and still requires a skilled stay. [facility] initiated a Medicaid application for pt. [place] Medicaid Application/pending number forward to Dina if needed for transfer out. Pts cousin Ursula shared with that she heard that pt may havea history of substance abuse and this could be contributing to her current condition. SW unsure of this and encouraged her to speak with physician about this when she is next here visiting with pt. Web Design Intern: Jacqueline Edwards LSW, MSW Day 4 Note: 09/19/23 Pt was transfered to [facility], residential referrals updated. SW signing off. Web Design Intern: Jacqueline Edwards LSW, MSW - * Requested Intvs/Referrals * Research Editor Referrals: SNF/LTAC Placement Web Design Intern I Referrals: Financial Issues/Medicaid Applications - * HEALTHCARE DECISIONS * Living Will: Unknown Durable Power of [place] Insulation Setter for Health Care: Unknown [facility] DNR Comfort Care: Unknown [facility] DNR Comfort Care Arrest: Unknown - Home Health/IV Infusion/Wound Vac Home Health Referral Indicated: Yes Home Health List Provided: Yes Indication for Home Health: Wound Care, Other Patient's Response: Yes Home Health Agencies: [facility] Patient given options to view quality scores of facility?: No Entered by: MARY Rodriguez MSW on 09/19/23 1107 Report Signed by: LORNA Ovalle on 09/19/23 1108 <<Signature on File>> <Electronically signed by LORNA Hill> Report Signed by: on [facility] Work Phone: 1(802) 319-221710-26-2023 Progress note Author Alec Clemons [facility] September 18, 2023 8:44pm Note Date/Time September 18, 2023 3 :46pm [facility] Medical Records Patient: GEOVANNY MEJÍA[address] : 1970 [place], [place] [address] Location: [facility] [phone] Unit #: [id number] Progress Note Neurosurgery Lucy Lara PA-C Service Dt/Tm: 09/18/23 1546 <Lucy Lara PA-C - Last Filed: 09/18/23 16:04> Assessment/Plan (1) Bacteremia: Status: Acute (2) Retroperitoneal abscess: Status: Acute Plan postop day 5 Hemilaminectomy T4-5 with evacuation of dorsal spinal epidural abscess; hemilaminectomy with transpedicular decompression T10 on the left side with evacuation of ventral spinal epidural abscess on 09/13/23 Stat Cervical MRI completed today concerning for phlegmon vs infection. Recommend surgical intervention with anterior cervical discectomy and fusion C6-7 with exploration of previous fusion C5-6 and removal of plate; possible corpectomy and decompression of ventral cord later today. Risks of worsening infection and lossof UE function among other things and benefits reviewed with the patient. Pt is npo. Consent will be signed. POC discussed with Dr. Clemons who agrees. <Alec Clemons MD - Last Filed: 09/18/23 20:44> Assessment/Plan (1) Bacteremia: (2) Retroperitoneal abscess: Plan postop day 5 Hemilaminectomy T4-5 with evacuation of dorsal spinal epidural abscess; hemilaminectomy with transpedicular decompression T10 on the left side with evacuation of ventral spinal epidural abscess on 09/13/23 Stat Cervical MRI completed today concerning for phlegmon vs infection. Recommend surgical intervention with anterior cervical discectomy and fusion C6-7 with exploration of previous fusion C5-6 and removal of plate; possible corpectomy and decompression of ventral cord later today. Risks of worsening infection and lossof UE function among other things and benefits reviewed with the patient. Pt is npo. Consent will be signed. POC discussed with Dr. Clemons who agrees. Patient continues to experience varying degrees of osteomyelitis, discitis, epidural fluid collections. She is remained unchanged neurologically in the lower extremities and has been without progressive complaints in the upper extremities. However, an MRI scan of the cervical spine was performed with and without contrast to assess the cranial access. When reviewing the radiographic studies along with the radiology report, there is a area of concern affecting the ventral thecal sac at C6-7. Based on the progressive nature of her prior epidural abscesses and the continued findings within the various thoracic vertebral bodies, I felt this it necessary to consent the patient for debridement and decompression of the cervical spine. Risks, benefits, complications were discussed extensively along with expectations. Unfortunatelythe patient's may continue to develop areas of infection since the source may not be fully addressed at this time. As we are preparing the patient for surgery, the tertiary center made us aware that transport would be available to move her from our location to their location within a very reasonable period of time. For this reason, I elected toforego the surgery which was planned on an emergent basis and allow the tertiarycenter to assume care. Fortunately, the neurologic status remains stable in theupper extremities and I did not feel it would be unreasonable to allow the transfer. The surgery was subsequently canceled and the patient transferred. <Lucy Lara PA-C - Last Filed: 09/18/23 16:04> Subjective GEOVANNY MEJÍA is a 53 yr old F who was admitted on 09/08/23 for INTRA ABDOMINAL ABCESS. S: Patient postop day 5 Hemilaminectomy T4-5 with evacuation of dorsal spinal epidural abscess; hemilaminectomy with transpedicular decompression T10 on the left side with evacuation of ventral spinal epidural abscess on 09/13/2023. Patient examined lying in bed. She continues to complain about pain and inability to move LE. Cervical MRI completed today concerning for abscess vs phlegmon present at C6-7 with instrumentation present at C5-6. Please see official report. <Lucy Lara PA-C - Last Filed: 09/18/23 16:04> Objective Hemodynamics: Vital Signs - Last Set Temperature 98.5 F 09/18/23 14:55 Pulse Rate 95 09/18/23 14:55 Respiratory Rate 18 09/18/23 14:55 Blood Pressure 129/77 09/18/23 14:55 Oxygen Saturation% 95 09/18/23 14:55 Liters of Oxygen 2.0 09/18/23 03:22 Intake and Output 09/17/23 09/18/23 09/19/23 06:59 06:59 06:59 Intake Total 2373.61 2035.17 982.56 Output Total 3400 5050 1200 Balance -1026.39 -3014.83 -217.44 Daily Weight: Admitting (IV Pump) Weight 83 kg Actual Weight (Kg) 83 kg General: Alert and Other (lying in bed) Skin: Warm, Dry Extremities: Warm and Dry Neurologic: Other (spontaneous movement of UE. 0/4 power LE) Psychological: Agitated Results: Laboratory Results - last 24 hr 09/18/23 09/18/23 09/18/23 14:03 13:59 04:49 WBC 9.5 9.1 RBC 2.82 L 2.74 L Hgb 8.2 L 7.8 L Hct 24.2 L 23.5 L MCV 85.6 85.6 MCH 29.1 28.6 MCHC 33.9 33.4 RDW 16.1 H 16.1 H Plt Count 669 H 594 H Neut % (Auto) 80.1 H 74.6 H Lymph % (Auto) 11.7 L 14.8 L Graham % (Auto) 6.7 7.4 Eos % (Auto) 0.8 1.1 Baso % (Auto) 0.7 2.1 H Nucleat RBC Rel Count 0.0 0.0 Absolute Neuts (auto) 7600 6800 Absolute Lymphs (auto) 1100 1300 Absolute Monos (auto) 600 700 Absolute Eos (auto) 100 100 Absolute Basos (auto) 100 200 Retic Count (auto) 7.01 H Sodium 128 L Potassium 4.1 Chloride 94 L Carbon Dioxide 28 Anion Gap 6 BUN 8 Creatinine 0.50 L GFR Calculation > 60 Random Glucose 113 H Calcium 8.30 L Phosphorus 4.6 Magnesium 2.2 Iron 16 L % Saturation 7 L Transferrin 152 L Ferritin 347 H Albumin 2.5 L Blood Type O Positive Indirect Antiglob Test NEGATIVE Microbiology 09/13/23 16:06 Blood,Venous - Final Test not indicated 09/13/23 16:06 Blood,Venous Blood Culture - Final No growth after 5 days. 09/13/23 15:55 Blood,Venous - Final Test not indicated 09/13/23 15:55 Blood,Venous Blood Culture - Final No growth after 5 days. 09/13/23 05:00 Back Gram Stain - Final 09/13/23 05:00 Back Wound Culture - Final Staphylococcus aureus I have reviewed the diagnostic images from Radiology in the EMR Medications: Current medications reviewed and appropriate changes or recommendations have been made. Entered by: Lucy Lara PA-C on 09/18/23 0859 Report Signed by: Lucy Lara PA-C on 09/18/23 1332 <<Signature on File>> < 43 <<Signature on File>> <Electronically signed by Alec Clemons MD> [facility] Work Phone: 1(662) 345-895010-26-2023 Progress note Author Alec Clemons [facility] September 18, 2023 8:44pm Note Date/Time September 18, 2023 3 :46pm [facility] Medical Records Patient: GEOVANNY MEJÍA. : 1970 [place], [place] [address] Location: [phone] Unit #: [id number] Progress Note Neurosurgery Lucy Lara PA-C Service Dt/Tm: 09/18/23 1546 <Lucy Lara PA-C - Last Filed: 09/18/23 16:04> Assessment/Plan (1) Bacteremia: Status: Acute (2) Retroperitoneal abscess: Status: Acute Plan postop day 5 Hemilaminectomy T4-5 with evacuation of dorsal spinal epidural abscess; hemilaminectomy with transpedicular decompression T10 on the left side with evacuation of ventral spinal epidural abscess on 09/13/23 Stat Cervical MRI completed today concerning for phlegmon vs infection. Recommend surgical intervention with anterior cervical discectomy and fusion C6-7 with exploration of previous fusion C5-6 and removal of plate; possible corpectomy and decompression of ventral cord later today. Risks of worsening infection and lossof UE function among other things and benefits reviewed with the patient. Pt is npo. Consent will be signed. POC discussed with Dr. Clemons who agrees. <Alec Clemons MD - Last Filed: 09/18/23 20:44> Assessment/Plan (1) Bacteremia: (2) Retroperitoneal abscess: Plan postop day 5 Hemilaminectomy T4-5 with evacuation of dorsal spinal epidural abscess; hemilaminectomy with transpedicular decompression T10 on the left side with evacuation of ventral spinal epidural abscess on 09/13/23 Stat Cervical MRI completed today concerning for phlegmon vs infection. Recommend surgical intervention with anterior cervical discectomy and fusion C6-7 with exploration of previous fusion C5-6 and removal of plate; possible corpectomy and decompression of ventral cord later today. Risks of worsening infection and lossof UE function among other things and benefits reviewed with the patient. Pt is npo. Consent will be signed. POC discussed with Dr. Clemons who agrees. Patient continues to experience varying degrees of osteomyelitis, discitis, epidural fluid collections. She is remained unchanged neurologically in the lower extremities and has been without progressive complaints in the upper extremities. However, an MRI scan of the cervical spine was performed with and without contrast to assess the cranial access. When reviewing the radiographic studies along with the radiology report, there is a area of concern affecting the ventral thecal sac at C6-7. Based on the progressive nature of her prior epidural abscesses and the continued findings within the various thoracic vertebral bodies, I felt this it necessary to consent the patient for debridement and decompression of the cervical spine. Risks, benefits, complications were discussed extensively along with expectations. Unfortunatelythe patient's may continue to develop areas of infection since the source may not be fully addressed at this time. As we are preparing the patient for surgery, the tertiary center made us aware that transport would be available to move her from our location to their location within a very reasonable period of time. For this reason, I elected toforego the surgery which was planned on an emergent basis and allow the tertiarycenter to assume care. Fortunately, the neurologic status remains stable in theupper extremities and I did not feel it would be unreasonable to allow the transfer. The surgery was subsequently canceled and the patient transferred. <Lucy Lara PA-C - Last Filed: 09/18/23 16:04> Subjective GEOVANNY MEJÍA is a 53 yr old F who was admitted on 09/08/23 for INTRA ABDOMINAL ABCESS. S: Patient postop day 5 Hemilaminectomy T4-5 with evacuation of dorsal spinal epidural abscess; hemilaminectomy with transpedicular decompression T10 on the left side with evacuation of ventral spinal epidural abscess on 09/13/2023. Patient examined lying in bed. She continues to complain about pain and inability to move LE. Cervical MRI completed today concerning for abscess vs phlegmon present at C6-7 with instrumentation present at C5-6. Please see official report. <Lucy Lara PA-C - Last Filed: 09/18/23 16:04> Objective Hemodynamics: Vital Signs - Last Set Temperature 98.5 F 09/18/23 14:55 Pulse Rate 95 09/18/23 14:55 Respiratory Rate 18 09/18/23 14:55 Blood Pressure 129/77 09/18/23 14:55 Oxygen Saturation% 95 09/18/23 14:55 Liters of Oxygen 2.0 09/18/23 03:22 Intake and Output 09/17/23 09/18/23 09/19/23 06:59 06:59 06:59 Intake Total 2373.61 2035.17 982.56 Output Total 3400 5050 1200 Balance -1026.39 -3014.83 -217.44 Daily Weight: Admitting (IV Pump) Weight 83 kg Actual Weight (Kg) 83 kg General: Alert and Other (lying in bed) Skin: Warm, Dry Extremities: Warm and Dry Neurologic: Other (spontaneous movement of UE. 0/4 power LE) Psychological: Agitated Results: Laboratory Results - last 24 hr 09/18/23 09/18/23 09/18/23 14:03 13:59 04:49 WBC 9.5 9.1 RBC 2.82 L 2.74 L Hgb 8.2 L 7.8 L Hct 24.2 L 23.5 L MCV 85.6 85.6 MCH 29.1 28.6 MCHC 33.9 33.4 RDW 16.1 H 16.1 H Plt Count 669 H 594 H Neut % (Auto) 80.1 H 74.6 H Lymph % (Auto) 11.7 L 14.8 L Graham % (Auto) 6.7 7.4 Eos % (Auto) 0.8 1.1 Baso % (Auto) 0.7 2.1 H Nucleat RBC Rel Count 0.0 0.0 Absolute Neuts (auto) 7600 6800 Absolute Lymphs (auto) 1100 1300 Absolute Monos (auto) 600 700 Absolute Eos (auto) 100 100 Absolute Basos (auto) 100 200 Retic Count (auto) 7.01 H Sodium 128 L Potassium 4.1 Chloride 94 L Carbon Dioxide 28 Anion Gap 6 BUN 8 Creatinine 0.50 L GFR Calculation > 60 Random Glucose 113 H Calcium 8.30 L Phosphorus 4.6 Magnesium 2.2 Iron 16 L % Saturation 7 L Transferrin 152 L Ferritin 347 H Albumin 2.5 L Blood Type O Positive Indirect Antiglob Test NEGATIVE Microbiology 09/13/23 16:06 Blood,Venous - Final Test not indicated 09/13/23 16:06 Blood,Venous Blood Culture - Final No growth after 5 days. 09/13/23 15:55 Blood,Venous - Final Test not indicated 09/13/23 15:55 Blood,Venous Blood Culture - Final No growth after 5 days. 09/13/23 05:00 Back Gram Stain - Final 09/13/23 05:00 Back Wound Culture - Final Staphylococcus aureus I have reviewed the diagnostic images from Radiology in the EMR Medications: Current medications reviewed and appropriate changes or recommendations have been made. Entered by: Lucy Lara PA-C on 09/18/23 1546 Report Signed by: Lucy Lara PA-C on 09/18/23 1604 <<Signature on File>> < 43 <<Signature on File>> <Electronically signed by Alec Clemons MD> [facility] Work Phone: [phone]) 475-460910-26-2023 Discharge summary Author Troy Garber [facility] September 18, 2023 7:44pm Note Date/Time September 18, 2023 7 :21pm [facility] Medical Records Patient: GEOVANNY MEJÍA. : 1970 [place], [place] [address] Location: [phone] Unit #: [id number] Discharge Summary Troy Garber MD Patient Information Admit Date: 09/08/23 Attending Provider: Troy aGrber MD Primary Care Provider: None Discharge Date: 09/18/23 Reason For [facility] Course Discharge Diagnoses (1) Intra-abdominal abscess: Status: Acute Plan: 2 attempts at percutaneous drainage by IR has failed, and therefore general surgery consult has been recalled to assess the patient for their input and further recommendations. This has been the source of patient's bacteremia and distant seeding of the MSSA especially to the thoracic spine leading to the epidural abscess. Continue with IV antibiotic, which is being directed by ID consult. Patient remains in-house awaiting transfer to the [facility] whenever bed becomes available. We will continue with aggressive management as outlined. (2) Abscess in epidural space of thoracic spine: Status: Acute Plan: Patient has finally been accepted at the [facility] upon converting her insurance to the [place] Medicaid. Currently she remains in-house awaiting a bed availability and transport to the [facility] to be assessed by neurosurgery and general surgery consult. Patient will need to have the source of the infection addressed, and as indicated above, another tube has been placed by IR yesterday, which is not draining. And we will continue with IV antibiotic as directed by ID consult. (3) Staphylococcus aureus septicemia: Status: Acute Plan: Infectious disease consult monitoring and managing antibiotics for the septicemia. (4) HTN (hypertension): Status: Acute Qualifiers: Hypertension type: primary hypertension Qualified Code(s): I10 - Essential (primary) hypertension Plan: Continue with home regimen of antihypertensive, however will monitor closely because of the infection for hypotensive episodes. (5) Asthma: Status: Acute Qualifiers: Asthma complication type: uncomplicated Asthma persistence: intermittent Asthma severity: mild Qualified Code(s): J45.20 - Mild intermittent asthma, uncomplicated Plan: Home medication regimen as resumed, will continue with supportive management. (6) Normocytic normochromic anemia: Status: Acute Plan: Unclear etiology, however in the setting of infection, would want the infection to be brought under control prior to replenishing the iron stores. We will be obtaining anemia work-up. (7) Hyponatremia: Status: Acute Plan: Unclear duration, stable and asymptomatic. Patient will need further work-up. This could be hypovolemia from dehydration. (8) Severe protein-calorie malnutrition: Status: Acute Plan: Patient has albumin of 2.7 and prealbumin of 5 signaling severe protein calorie malnutrition. Patient will therefore need dietary consult to assist in the management since she needs proteins for healing process. (9) Hypocalcemia: Status: Acute Plan: Patient does have hypocalcemia and previous ionized calcium was low. Patient isbeing started on vitamin D 5000 international units daily by mouth, and also Os-Riley 500, 1 tablet daily. We will continue to monitor serum calcium closely. (10) Electrolyte imbalance: Status: Acute Plan: Including but not limited to hypocalcemia, hypokalemia and hypophosphatemia. Electrolyte imbalance is being corrected per protocol and will be repeating labsthis p.m. and tomorrow morning. Plan Currently awaiting bed availability for transfer to [facility] for general surgery and neurosurgery evaluation with further recommendations. CT scan of the abdomen and pelvis showing increase in the volume of the retroperitoneal abscess and patient had another drain placed by IR for abscess drainage yesterday, however this has not been successful in draining the abscess. Continue with empiric IV antibiotic as outlined, will optimize pain control. General surgery has been consulted here to evaluate the patient for their input, since there has been a delay in the transfer to the [facility]. We will continue to follow and monitor patient pending transfer. Hospital Course 53 old female with a past medical history of hypertension, no home medications on file, initially transferred from [facility] for possible intra-abdominal abscess.? History and physical is limited due to no records available and patient was in pain at time of my clinical exam.? As per EMR I did see that she had a left retroperitoneal fluid collection with moderate inflammation measuring4.7 X2.6X 4.5 cm with possible abscess formation.? She was subsequently transferred to [facility] for general surgery consultation.? On arrival as per RN she was complaining of some back pain, she does have a history of sciatica and takes Neurontin 600 mg at home however her pain significantly worsened when I went into the room and she had some rigidity upon clinical exam but no tenderness.? She did have significant back pain.? I did look at CT lumbarspine done at outside facility which was last night, this did not show any acutefracture.? She does have significant multilevel degenerative disease which is stable other than slightly more prominent bulging disc at L2-L3 vertebrae and a 2 mm nonobstructing kidney stone on the left side. I did order another left lateral abdominal x-ray to rule out any intraperitoneal air stat and give her fentanyl for immediate pain control, I did discuss with general surgery Dr Pimentel stat and they said that they were going to evaluate the patient, patient was started on IV fluids and Zosyn with pancultures ordered we will continue to follow closely. Patient had been admitted in transfer, as indicated above, and work-up did show a left-sided abscess around the L2-L3 vertebral area. She had been brought in transfer to this facility, was seen right away by interventional radiologist andhad an abscess drain placed by the IR and follow-up CT scan had shown a favorable results with decreasing the size of the abscess. Patient initially had been started on Zosyn and vancomycin and ID consult had been involved. Patient's cultures including blood cultures and pus culture did grow MSSA and therefore antibiotic was switched to cefazolin 2 g every 8 hourly until discharge and transfer. Pain was adequately controlled. Of note, general surgery consult had been involved in her management and they recommended conservative management and has subsequently signed off. However patient's paincontinues to recur and this time around was having back pain. CT lumbar spine was inconclusive, however MRI lumbar spine had shown a T10, T11 epidural abscess. Neurosurgeon was involved in a dedicated thoracic MRI was obtained which confirmed the diagnosis. Patient was taken to the OR by neurosurgeon and had a:Hemilaminectomy T4-5 with evacuation of dorsal spinal epidural abscess; hemilaminectomy with transpedicular decompression T10 on the left side with evacuation of ventral spinal epidural abscess. I had taken over patient's care on 09/13/2023 and patient was immediate postop and was found to have bilateral lower extremity weakness, which according to the documentation had been progressing prior to surgery. Patient did have sensation in the left lower extremity but none on the right, but subsequently developed foot drop in both lower extremities. She continued to have pain and was maintained on IV Dilaudid. There was detailed discussion and neurosurgeon and infectious diseaseconsultant had recommended a transfer to a tertiary facility for management. Initial call to the [facility] for transfer had been declined, and subsequent call to the [facility] was also declined for transfer. However, patient's insurance had been switched from the [place] to the [place] Medicaid, [facility] was updated and [facility] onto their service. However patient remained here at [facility] until discharge and transfer to this evening and care flighted to the [facility] for the neurosurgeon to assess the patient. She did complain of worsening abdominal pain, had a repeat CT abdomen and pelviswith contrast, which confirm worsening of the left retroperitoneal abscess, discussed with Dr. Guevara, who emergently changed the previous drain and replaced it with another drain. However unlike the previous drain, there was nothing coming out of the drain. This was discussed with him who indicated at the moment patient would need surgical intervention and therefore the general surgery team will recalled to reassess the patient for their input. Also of concern with the spread of the infection, neurosurgery consult had recommended obtaining a cervical spine MRI with and without contrast, which was done this morning and that also showed the spread of the infection to the C6-7 area with the epidural abscess connecting to the thoracic, and there was also paraspinal right abscess as well as discitis/osteomyelitis of the C5 and 6 and C6 and 7. Patient at this time had gotten a bed at the [facility] and therefore arrangement was made and patient was care flighted to the [facility] for a multidisciplinary approach with general surgery and neurosurgery to address the left retroperitoneal abscess which is likely the source and the epidural abscesses respectively. Consultations 09/08/23 13:17 Consult Surgeon [Physician Consult Surgery] Routine Comment: Possible acute abdomen Consulting Provider: Rohit Pimentel Reason for consult: Intrabdominal abscess, Has the consulted physician been notified?: Yes 09/10/23 12:44 Consult Infectious Disease Physician [Physician Consult Infectious Disease] Routine Comment: Consulting Provider: Darrell (KISHA)Jaret Reason for consult: bacteremia/ Abd abscess Has the consulted physician been notified?: Yes 09/12/23 15:15 Consult Neurosurgery [Physician Consult Neurosurgery] Routine Comment: Consulting Provider: Alec Clemons Reason for consult: Significant b/l leg weakness and decreased sensation Has the consulted physician been notified?: Yes 09/18/23 13:01 Physician Consult Surgery Routine Comment: Consulting Provider: Valeriy Cantu Jr Reason for consult: reassess worsening left retroperitoneal abscess with failed percutaneous drainage attempts x 2 by IR for further recommendation towards management. Has the consulted physician been notified?: Yes Notification Comment: via perfect serve. Procedures Procedure Performed Thoracic Hemilaminectomy T4-5 and T10-T11 Laboratory Results - last 24 hr 09/18/23 09/18/23 09/18/23 14:03 13:59 04:49 WBC 9.5 9.1 RBC 2.82 L 2.74 L Hgb 8.2 L 7.8 L Hct 24.2 L 23.5 L MCV 85.6 85.6 MCH 29.1 28.6 MCHC 33.9 33.4 RDW 16.1 H 16.1 H Plt Count 669 H 594 H Neut % (Auto) 80.1 H 74.6 H Lymph % (Auto) 11.7 L 14.8 L Graham % (Auto) 6.7 7.4 Eos % (Auto) 0.8 1.1 Baso % (Auto) 0.7 2.1 H Nucleat RBC Rel Count 0.0 0.0 Absolute Neuts (auto) 7600 6800 Absolute Lymphs (auto) 1100 1300 Absolute Monos (auto) 600 700 Absolute Eos (auto) 100 100 Absolute Basos (auto) 100 200 Retic Count (auto) 7.01 H Sodium 128 L Potassium 4.1 Chloride 94 L Carbon Dioxide 28 Anion Gap 6 BUN 8 Creatinine 0.50 L GFR Calculation > 60 Random Glucose 113 H Calcium 8.30 L Phosphorus 4.6 Magnesium 2.2 Iron 16 L % Saturation 7 L Transferrin 152 L Ferritin 347 H Albumin 2.5 L Blood Type O Positive Indirect Antiglob Test NEGATIVE Imaging: I have reviewed the diagnostic images from Radiology in the EMR Microbiology 09/13/23 16:06 Blood,Venous - Final Test not indicated 09/13/23 16:06 Blood,Venous Blood Culture - Final No growth after 5 days. 09/13/23 15:55 Blood,Venous - Final Test not indicated 09/13/23 15:55 Blood,Venous Blood Culture - Final No growth after 5 days. 09/13/23 05:00 Back Gram Stain - Final 09/13/23 05:00 Back Wound Culture - Final Staphylococcus aureus Allergies/Adverse Reactions No Known Drug Allergies Allergy (Verified 09/08/23 09:58) Objective Last Vital Signs Temp Pulse Resp BP Pulse Ox O2 Flow Rate 98.4 F 95 14 123/69 95 2.0 09/18/23 17:20 09/18/23 17:59 09/18/23 17:20 09/18/23 17:59 09/18/23 17:59 09/18/23 03:22 Intake & Output 09/18/23 09/18/23 09/18/23 06:59 14:59 22:59 Intake Total 451.23 982.56 Output Total 1700 1200 Balance -1248.77 -217.44 Physical Exam Other: General Appearance: Alert and Cooperative; No Resting Comfortably or Acute Distress Eyes: PERRLA and EOMI ENT: Normal Inspection, Pharynx Normal and Oral Mucosa Moist; No Pharyngeal Erythema Skin: Color Normal and Warm, Dry; No Rash, Diaphoresis or Pallor Cardiovascular: Irregular Rhythm; No Click, Rub, Gallop or Murmur Lungs: Clear to Auscultate Bila and Good Air Entry; No Rales or Expiratory Wheezes Abdomen: Firm, Tender to palpation (Diffuse tenderness), Hypoactive BS and Other(Abscess drain in place this time with an empty bag); No Rebound tender to palpat. Extremities: Activity as expected and Warm and Dry; No Cyanosis, Swelling or Edema Neurologic: A & O x3 and Other (Bilateral paraparesis, with intact sensation of the left lower extremity, however no sensation of the right lower extremity up to the upper thigh region.? There is bilateral foot drop) Psychological: Mood & Affect Normal Allergy and Medications Allergies/Adverse Reactions No Known Drug Allergies Allergy (Verified 09/08/23 09:58) Home Medications No Home Meds 09/09/23 [History Confirmed 09/09/23] Discharge Plan Discharge Data Patient Disposition: *Discharge/Transfer SNF/[facility] Condition: Guarded Discharge Medication Reconciliation: No Action No Home Meds Time Spent On Discharge: Greater than 30 minutes General Instructions Activity: As tolerated Diet: Nothing by mouth Discharge Information Follow-up Appointments: None,Physician [Primary Care Provider] - Stand Alone Forms: Discharge Instructions cc: Troy Garber MD; None Dictated by: Troy Garber MD on 09/18/231918 Entered by: Troy Garber MD on 09/18/231918 Report Signed by: Troy Garber MD on 09/18/231943 <<Signature on File>> <Electronically signed by Troy Garber MD> Report Signed by: on [facility] Work Phone: 1([phone]) 384-839810-26-2023 Discharge summary Author Troy Garber [facility] September 18, 2023 7:44pm Note Date/Time September 18, 2023 7 :21pm [facility] Medical Records Patient: GEOVANNY MEJÍA. : 1970 [place], [place] [address] Location: [facility] [phone] Unit #: [id number] Discharge Summary Troy Garber MD Patient Information Admit Date: 09/08/23 Attending Provider: Troy Garber MD Primary Care Provider: None Discharge Date: 09/18/23 Reason For Visit: INTRA ABDOMINAL ABCESS Hospital Course Discharge Diagnoses (1) Intra-abdominal abscess: Status: Acute Plan: 2 attempts at percutaneous drainage by IR has failed, and therefore general surgery consult has been recalled to assess the patient for their input and further recommendations. This has been the source of patient's bacteremia and distant seeding of the MSSA especially to the thoracic spine leading to the epidural abscess. Continue with IV antibiotic, which is being directed by ID consult. Patient remains in-house awaiting transfer to the [facility] whenever bed becomes available. We will continue with aggressive management as outlined. (2) Abscess in epidural space of thoracic spine: Status: Acute Plan: Patient has finally been accepted at the [facility] upon converting her insurance to the [place] Medicaid. Currently she remains in-house awaiting a bed availability and transport to the [facility] to be assessed by neurosurgery and general surgery consult. Patient will need to have the source of the infection addressed, and as indicated above, another tube has been placed by IR yesterday, which is not draining. And we will continue with IV antibiotic as directed by ID consult. (3) Staphylococcus aureus septicemia: Status: Acute Plan: Infectious disease consult monitoring and managing antibiotics for the septicemia. (4) HTN (hypertension): Status: Acute Qualifiers: Hypertension type: primary hypertension Qualified Code(s): I10 - Essential (primary) hypertension Plan: Continue with home regimen of antihypertensive, however will monitor closely because of the infection for hypotensive episodes. (5) Asthma: Status: Acute Qualifiers: Asthma complication type: uncomplicated Asthma persistence: intermittent Asthma severity: mild Qualified Code(s): J45.20 - Mild intermittent asthma, uncomplicated Plan: Home medication regimen as resumed, will continue with supportive management. (6) Normocytic normochromic anemia: Status: Acute Plan: Unclear etiology, however in the setting of infection, would want the infection to be brought under control prior to replenishing the iron stores. We will be obtaining anemia work-up. (7) Hyponatremia: Status: Acute Plan: Unclear duration, stable and asymptomatic. Patient will need further work-up. This could be hypovolemia from dehydration. (8) Severe protein-calorie malnutrition: Status: Acute Plan: Patient has albumin of 2.7 and prealbumin of 5 signaling severe protein calorie malnutrition. Patient will therefore need dietary consult to assist in the management since she needs proteins for healing process. (9) Hypocalcemia: Status: Acute Plan: Patient does have hypocalcemia and previous ionized calcium was low. Patient isbeing started on vitamin D 5000 international units daily by mouth, and also Os-Riley 500, 1 tablet daily. We will continue to monitor serum calcium closely. (10) Electrolyte imbalance: Status: Acute Plan: Including but not limited to hypocalcemia, hypokalemia and hypophosphatemia. Electrolyte imbalance is being corrected per protocol and will be repeating labsthis p.m. and tomorrow morning. Plan Currently awaiting bed availability for transfer to [facility] for general surgery and neurosurgery evaluation with further recommendations. CT scan of the abdomen and pelvis showing increase in the volume of the retroperitoneal abscess and patient had another drain placed by IR for abscess drainage yesterday, however this has not been successful in draining the abscess. Continue with empiric IV antibiotic as outlined, will optimize pain control. General surgery has been consulted here to evaluate the patient for their input, since there has been a delay in the transfer to the [facility]. We will continue to follow and monitor patient pending transfer. Hospital Course 53 old female with a past medical history of hypertension, no home medications on file, initially transferred from [facility] for possible intra-abdominal abscess.? History and physical is limited due to no records available and patient was in pain at time of my clinical exam.? As per EMR I did see that she had a left retroperitoneal fluid collection with moderate inflammation measuring4.7 X2.6X 4.5 cm with possible abscess formation.? She was subsequently transferred to [facility] for general surgery consultation.? On arrival as per RN she was complaining of some back pain, she does have a history of sciatica and takes Neurontin 600 mg at home however her pain significantly worsened when I went into the room and she had some rigidity upon clinical exam but no tenderness.? She did have significant back pain.? I did look at CT lumbarspine done at outside facility which was last night, this did not show any acutefracture.? She does have significant multilevel degenerative disease which is stable other than slightly more prominent bulging disc at L2-L3 vertebrae and a 2 mm nonobstructing kidney stone on the left side. I did order another left lateral abdominal x-ray to rule out any intraperitoneal air stat and give her fentanyl for immediate pain control, I did discuss with general surgery Dr Margarito frias and they said that they were going to evaluate the patient, patient was started on IV fluids and Zosyn with pancultures ordered we will continue to follow closely. Patient had been admitted in transfer, as indicated above, and work-up did show a left-sided abscess around the L2-L3 vertebral area. She had been brought in transfer to this facility, was seen right away by interventional radiologist andhad an abscess drain placed by the IR and follow-up CT scan had shown a favorable results with decreasing the size of the abscess. Patient initially had been started on Zosyn and vancomycin and ID consult had been involved. Patient's cultures including blood cultures and pus culture did grow MSSA and therefore antibiotic was switched to cefazolin 2 g every 8 hourly until discharge and transfer. Pain was adequately controlled. Of note, general surgery consult had been involved in her management and they recommended conservative management and has subsequently signed off. However patient's paincontinues to recur and this time around was having back pain. CT lumbar spine was inconclusive, however MRI lumbar spine had shown a T10, T11 epidural abscess. Neurosurgeon was involved in a dedicated thoracic MRI was obtained which confirmed the diagnosis. Patient was taken to the OR by neurosurgeon and had a:Hemilaminectomy T4-5 with evacuation of dorsal spinal epidural abscess; hemilaminectomy with transpedicular decompression T10 on the left side with evacuation of ventral spinal epidural abscess. I had taken over patient's care on 09/13/2023 and patient was immediate postop and was found to have bilateral lower extremity weakness, which according to the documentation had been progressing prior to surgery. Patient did have sensation in the left lower extremity but none on the right, but subsequently developed foot drop in both lower extremities. She continued to have pain and was maintained on IV Dilaudid. There was detailed discussion and neurosurgeon and infectious diseaseconsultant had recommended a transfer to a tertiary facility for management. Initial call to the [facility] for transfer had been declined, and subsequent call to the [facility] was also declined for transfer. However, patient's insurance had been switched from the [place] to the [place] Medicaid, [facility] was updated and [facility] accepted onto their service. However patient remained here at [facility] until discharge and transfer to this evening and care flighted to the [facility] for the neurosurgeon to assess the patient. She did complain of worsening abdominal pain, had a repeat CT abdomen and pelviswith contrast, which confirm worsening of the left retroperitoneal abscess, discussed with Dr. Guevara, who emergently changed the previous drain and replaced it with another drain. However unlike the previous drain, there was nothing coming out of the drain. This was discussed with him who indicated at the moment patient would need surgical intervention and therefore the general surgery team will recalled to reassess the patient for their input. Also of concern with the spread of the infection, neurosurgery consult had recommended obtaining a cervical spine MRI with and without contrast, which was done this morning and that also showed the spread of the infection to the C6-7 area with the epidural abscess connecting to the thoracic, and there was also paraspinal right abscess as well as discitis/osteomyelitis of the C5 and 6 and C6 and 7. Patient at this time had gotten a bed at the [facility] and therefore arrangement was made and patient was care flighted to the [facility] for a multidisciplinary approach with general surgery and neurosurgery to address the left retroperitoneal abscess which is likely the source and the epidural abscesses respectively. Consultations 09/08/23 13:17 Consult Surgeon [Physician Consult Surgery] Routine Comment: Possible acute abdomen Consulting Provider: Rohit Pimentel Reason for consult: Intrabdominal abscess, Has the consulted physician been notified?: Yes 09/10/23 12:44 Consult Infectious Disease Physician [Physician Consult Infectious Disease] Routine Comment: Consulting Provider: Darrell (KISHA)Jaret Reason for consult: bacteremia/ Abd abscess Has the consulted physician been notified?: Yes 09/12/23 15:15 Consult Neurosurgery [Physician Consult Neurosurgery] Routine Comment: Consulting Provider: Alec Clemons Reason for consult: Significant b/l leg weakness and decreased sensation Has the consulted physician been notified?: Yes 09/18/23 13:01 Physician Consult Surgery Routine Comment: Consulting Provider: Valeriy Cantu Jr Reason for consult: reassess worsening left retroperitoneal abscess with failed percutaneous drainage attempts x 2 by IR for further recommendation towards management. Has the consulted physician been notified?: Yes Notification Comment: via perfect serve. Procedures Procedure Performed Thoracic Hemilaminectomy T4-5 and T10-T11 Laboratory Results - last 24 hr 09/18/23 09/18/23 09/18/23 14:03 13:59 04:49 WBC 9.5 9.1 RBC 2.82 L 2.74 L Hgb 8.2 L 7.8 L Hct 24.2 L 23.5 L MCV 85.6 85.6 MCH 29.1 28.6 MCHC 33.9 33.4 RDW 16.1 H 16.1 H Plt Count 669 H 594 H Neut % (Auto) 80.1 H 74.6 H Lymph % (Auto) 11.7 L 14.8 L Graham % (Auto) 6.7 7.4 Eos % (Auto) 0.8 1.1 Baso % (Auto) 0.7 2.1 H Nucleat RBC Rel Count 0.0 0.0 Absolute Neuts (auto) 7600 6800 Absolute Lymphs (auto) 1100 1300 Absolute Monos (auto) 600 700 Absolute Eos (auto) 100 100 Absolute Basos (auto) 100 200 Retic Count (auto) 7.01 H Sodium 128 L Potassium 4.1 Chloride 94 L Carbon Dioxide 28 Anion Gap 6 BUN 8 Creatinine 0.50 L GFR Calculation > 60 Random Glucose 113 H Calcium 8.30 L Phosphorus 4.6 Magnesium 2.2 Iron 16 L % Saturation 7 L Transferrin 152 L Ferritin 347 H Albumin 2.5 L Blood Type O Positive Indirect Antiglob Test NEGATIVE Imaging: I have reviewed the diagnostic images from Radiology in the EMR Microbiology 09/13/23 16:06 Blood,Venous - Final Test not indicated 09/13/23 16:06 Blood,Venous Blood Culture - Final No growth after 5 days. 09/13/23 15:55 Blood,Venous - Final Test not indicated 09/13/23 15:55 Blood,Venous Blood Culture - Final No growth after 5 days. 09/13/23 05:00 Back Gram Stain - Final 09/13/23 05:00 Back Wound Culture - Final Staphylococcus aureus Allergies/Adverse Reactions No Known Drug Allergies Allergy (Verified 09/08/23 09:58) Objective Last Vital Signs Temp Pulse Resp BP Pulse Ox O2 Flow Rate 98.4 F 95 14 123/69 95 2.0 09/18/23 17:20 09/18/23 17:59 09/18/23 17:20 09/18/23 17:59 09/18/23 17:59 09/18/23 03:22 Intake & Output 09/18/23 09/18/23 09/18/23 06:59 14:59 22:59 Intake Total 451.23 982.56 Output Total 1700 1200 Balance -1248.77 -217.44 Physical Exam Other: General Appearance: Alert and Cooperative; No Resting Comfortably or Acute Distress Eyes: PERRLA and EOMI ENT: Normal Inspection, Pharynx Normal and Oral Mucosa Moist; No Pharyngeal Erythema Skin: Color Normal and Warm, Dry; No Rash, Diaphoresis or Pallor Cardiovascular: Irregular Rhythm; No Click, Rub, Gallop or Murmur Lungs: Clear to Auscultate Bila and Good Air Entry; No Rales or Expiratory Wheezes Abdomen: Firm, Tender to palpation (Diffuse tenderness), Hypoactive BS and Other(Abscess drain in place this time with an empty bag); No Rebound tender to palpat. Extremities: Activity as expected and Warm and Dry; No Cyanosis, Swelling or Edema Neurologic: A & O x3 and Other (Bilateral paraparesis, with intact sensation of the left lower extremity, however no sensation of the right lower extremity up to the upper thigh region.? There is bilateral foot drop) Psychological: Mood & Affect Normal Allergy and Medications Allergies/Adverse Reactions No Known Drug Allergies Allergy (Verified 09/08/23 09:58) Home Medications No Home Meds 09/09/23 [History Confirmed 09/09/23] Discharge Plan Discharge Data Patient Disposition: *Discharge/Transfer SNF/[facility] Condition: Guarded Discharge Medication Reconciliation: No Action No Home Meds Time Spent On Discharge: Greater than 30 minutes General Instructions Activity: As tolerated Diet: Nothing by mouth Discharge Information Follow-up Appointments: None,Physician [Primary Care Provider] - Stand Alone Forms: Discharge Instructions cc: Troy Garber MD; None Dictated by: Troy Garber MD on 09/18/231918 Entered by: Troy Garber MD on 09/18/231918 Report Signed by: Troy Garber MD on 09/18/231943 <<Signature on File>> <Electronically signed by Troy Garber MD> Report Signed by: on [facility] Work Phone: 1(617) 409-452810-26-2023 [facility] Patient: GEOVANNY MEJÍA. : 1970 [place], [place] [address] Location: [phone] Unit #: [id number] Discharge Summary Troy Garber MD Patient Information Admit Date: 09/08/23 Attending Provider: Troy Garber MD Primary Care Provider: None Discharge Date: 09/18/23 Reason For Visit: INTRA ABDOMINAL ABCESS Hospital Course Discharge Diagnoses (1) Intra-abdominal abscess: Status: Acute Plan: 2 attempts at percutaneous drainage by IR has failed, and therefore general surgery consult has been recalled to assess the patient for their input and further recommendations. This has been the source of patient's bacteremia and distant seeding of the MSSA especially to the thoracic spine leading to the epidural abscess. Continue with IV antibiotic, which is being directed by ID consult. Patient remains in-house awaiting transfer to the [facility] whenever bed becomes available. We will continue with aggressive management as outlined. (2) Abscess in epidural space of thoracic spine: Status: Acute Plan: Patient has finally been accepted at the [facility] upon converting her insurance to the [place] Medicaid. Currently she remains in-house awaiting a bed availability and transport to the [facility] to be assessed by neurosurgery and general surgery consult. Patient will need to have the source of the infection addressed, and as indicated above, another tube has been placed by IR yesterday, which is not draining. And we will continue with IV antibiotic as directed by ID consult. (3) Staphylococcus aureus septicemia: Status: Acute Plan: Infectious disease consult monitoring and managing antibiotics for the septicemia. (4) HTN (hypertension): Status: Acute Qualifiers: Hypertension type: primary hypertension Qualified Code(s): I10 - Essential (primary) hypertension Plan: Continue with home regimen of antihypertensive, however will monitor closely because of the infection for hypotensive episodes. (5) Asthma: Status: Acute Qualifiers: Asthma complication type: uncomplicated Asthma persistence: intermittent Asthma severity: mild Qualified Code(s): J45.20 - Mild intermittent asthma, uncomplicated Plan: Home medication regimen as resumed, will continue with supportive management. (6) Normocytic normochromic anemia: Status: Acute Plan: Unclear etiology, however in the setting of infection, would want the infection to be brought under control prior to replenishing the iron stores. We will be obtaining anemia work-up. (7) Hyponatremia: Status: Acute Plan: Unclear duration, stable and asymptomatic. Patient will need further work-up. This could be hypovolemia from dehydration. (8) Severe protein-calorie malnutrition: Status: Acute Plan: Patient has albumin of 2.7 and prealbumin of 5 signaling severe protein calorie malnutrition. Patient will therefore need dietary consult to assist in the management since she needs proteins for healing process. (9) Hypocalcemia: Status: Acute Plan: Patient does have hypocalcemia and previous ionized calcium was low. Patient is being started on vitamin D 5000 international units daily by mouth, and also Os-Riley 500, 1 tablet daily. We will continue to monitor serum calcium closely. (10) Electrolyte imbalance: Status: Acute Plan: Including but not limited to hypocalcemia, hypokalemia and hypophosphatemia. Electrolyte imbalance is being corrected per protocol and will be repeating labs this p.m. and tomorrow morning. Plan Currently awaiting bed availability for transfer to [facility] for general surgery and neurosurgery evaluation with further recommendations. CT scan of the abdomen and pelvis showing increase in the volume of the retroperitoneal abscess and patient had another drain placed by IR for abscess drainage yesterday, however this has not been successful in draining the abscess. Continue with empiric IV antibiotic as outlined, will optimize pain control. General surgery has been consulted here to evaluate the patient for their input, since there has been a delay in the transfer to the [facility]. We will continue to follow and monitor patient pending transfer. Hospital Course 53 old female with a past medical history of hypertension, no home medications on file, initially transferred from [facility] for possible intra-abdominal abscess.??? History and physical is limited due to no records available and patient was in pain at time of my clinical exam.??? As per EMR I did see that she had a left retroperitoneal fluid collection with moderate inflammation measuring 4.7 X2.6X 4.5 cm with possible abscess formation.??? She was subsequently transferred to [facility] for general surgery consultation.??? On arrival as per RN she was complaining of some back pain, she does have a history of sciatica and takes Neurontin 600 mg at home however h (more content not included)...[facility]10-26-2023 Progress note Author Karime Lowery [facility] September 18, 2023 5:54pm Note Date/Time September 18, 2023 5 :54pm [facility] Case Management Patient: GEOVANNY MEJÍA [address] : 1970 [place], [place] [address] Location: [address] [place] [address] Unit #: [id number] Case Management General Note Karime N Beverley RN Service Date: 09/18/23 Case Management General Note - Note Note: I was updated that patient had received a bed at [facility]. Bed 888. Accepting physician Dr. Huff. I was asked to arrange air transport. 1730: CM contacted [employer]. Updated of approx arrival 1753P. Primary nursing, attending updated. Security and AOS updated. Paperwork faxed and placed on chart. Primary nurse reports she had updated patient and family. - Letter Delivered Was Position Statement Letter Delivered?: Yes Entered by: Karime Lowery on 09/18/231746 Report Signed by: Karime Lowery RN on 09/18/231753 <<Signature on File>> <Electronically signed by Karime Lwoery RN> Co-Signed by: on [facility] Work Phone: 1(610) [phone] Progress note Author Karime Lowery [facility] September 18, 2023 5:54pm Note Date/Time September 18, 2023 5 :54pm [facility] Case Management Patient: GEOVANNY MEJÍA [address] : 1970 [place], [place] [address] Location: [address] [place] [address] Unit #: [id number] Case Management General Note Karime Lowery RN Service Date: 09/18/23 Case Management General Note - Note Note: I was updated that patient had received a bed at [facility]. Bed 888. Accepting physician Dr. Huff. I was asked to arrange air transport. 1730: CM contacted [employer]. Updated of approx arrival 1753P. Primary nursing, attending updated. Security and AOS updated. Paperwork faxed and placed on chart. Primary nurse reports she had updated patient and family. - Letter Delivered Was Position Statement Letter Delivered?: Yes Entered by: Karime Lowery on 09/18/231746 Report Signed by: Karime Lowery RN on 09/18/231753 <<Signature on File>> <Electronically signed by Karime Lowery RN> Co-Signed by: on [facility] Work Phone: 1(209) 251-272410-26-2023 Progress note Author Valeriy Cantu [facility] September 18, 2023 3:25pm Note Date/Time September 18, 2023 3 :25pm [facility] Medical Records Patient: GEOVANNY MEJÍA. : 1970 [place], [place] [address] Location: [phone] Unit #: [id number] Status Note/Update Valeriy Cantu Jr, DO Service Dt/Tm: 09/18/231522 Note: GEOVANNY MEJÍA is a 53 yr old F who was admitted on 09/08/23 for INTRA ABDOMINAL ABCESS. From chart review and speaking to the surgical team, the patient was previously seen by the surgery service and recs for IR guided drain was given. The patient underwent drain placement and per NSGY notes, the patient had an abscess that required higher level of care considering the extensive nature of the process and its involvement with the spine. I agree with this plan. The patient will be transferred to a higher level of care. Entered by: Valeriy Cantu Jr, DO on 09/18/231522 Report Signed by: Valeriy Cantu Jr, MD on 09/18/231524 <<Signature on File>> <Electronically signed by Valeriy Cantu Jr, DO> Report Signed by: on [facility] Work Phone: 1(469) 827-746310-26-2023 Progress note Author Troy Garber [facility] September 18, 2023 3:25pm Note Date/Time September 18, 2023 3 :25pm [facility] Medical Records Patient: GEOVANNY MEJÍA. : 1970 [place], [place] [address] Location: [phone] Unit #: [id number] Status Note/Update Troy Garber MD Service Dt/Tm: 09/18/231522 Note: GEOVANNY MEJÍA is a 53 yr old F who was admitted on 09/08/23 for INTRA ABDOMINAL ABCESS. MRI of the cervical spine obtained this morning is currently showing anextension of the epidural abscess from the thoracic spine to the C6-7, with a right paraspinal abscess and as well as discitis/osteomyelitis of C5 and 6 and C6 and 7. Discuss[address] with Dr[address] Clemons and he is going to plan for surgery. Nursing staff have been notified to keep the patient n.p.o. and to prepare the patient for surgery. However the source remains in place which is the intra-abdominal region and that needs to be addressed by general surgery. We will continue with empiric IV antibiotic awaiting further procedures. Patient also remains on the transfer list, to be transferred whenever a bed becomes available. Entered by: Troy Garber MD on 09/18/231522 Report Signed by: Troy Garber MD on 09/18/231524 <<Signature on File>> <Electronically signed by Troy Garber MD> Report Signed by: on [facility] Work Phone: 1(993) 294-845910-26-2023 Progress note Author Valeriy Cantu [facility] September 18, 2023 3:25pm Note Date/Time September 18, 2023 3 :25pm [facility] Medical Records Patient: GEOVANNY MEJÍA [address] : 1970 [place], [place] [address] Location: [address] [place] [address] Unit #: [id number] Status Note/Update Valeriy Cantu Jr DO Service Dt/Tm: 09/18/231522 Note: GEOVANNY MEJÍA is a 53 yr old F who was admitted on 09/08/23 for INTRA ABDOMINAL ABCESS. From chart review and speaking to the surgical team, the patient was previously seen by the surgery service and recs for IR guided drain was given. The patient underwent drain placement and per NSGY notes, the patient had an abscess that required higher level of care considering the extensive nature of the process and its involvement with the spine. I agree with this plan. The patient will be transferred to a higher level of care. Entered by: Valeriy Canut Jr, DO on 09/18/231522 Report Signed by: Valeriy Cantu Jr, MD on 09/18/231524 <<Signature on File>> <Electronically signed by Valeriy Cantu Jr, DO> Report Signed by: on [facility] Work Phone: 1([phone]) [phone] Progress note Author Troy Garber [facility] September 18, 2023 3:25pm Note Date/Time September 18, 2023 3 :25pm [facility] Medical Records Patient: GEOVANNY MEJÍA. : 1970 [place], [place] [address] Location: [phone] Unit #: [id number] Status Note/Update Troy Garber MD Service Dt/Tm: 09/18/23 152 Note: GEOVANNY MEJÍA is a 53 yr old F who was admitted on 09/08/23 for INTRA ABDOMINAL ABCESS. MRI of the cervical spine obtained this morning is currently showing anextension of the epidural abscess from the thoracic spine to the C6-7, with a right paraspinal abscess and as well as discitis/osteomyelitis of C5 and 6 and C6 and 7. D[address] with [address] Clemons and he is going to plan for surgery. Nursing staff have been notified to keep the patient n.p.o. and to prepare the patient for surgery. However the source remains in place which is the intra-abdominal region and that needs to be addressed by general surgery. We will continue with empiric IV antibiotic awaiting further procedures. Patient also remains on the transfer list, to be transferred whenever a bed becomes available. Entered by: Troy Garber MD on 09/18/231522 Report Signed by: Troy Garber MD on 09/18/231524 <<Signature on File>> <Electronically signed by Troy Garber MD> Report Signed by: on [facility] Work Phone: 1(221) 249-894710-26-2023 Progress note Author Alec Clemons [facility] September 18, 2023 3:23pm Note Date/Time September 18, 2023 3 :12pm [facility] Medical Records Patient: GEOVANNY MEJÍA. : 1970 [place], [place] [address] Location: [phone] Unit #: [id number] Status Note/Update Alec Clemons MD Service Dt/Tm: 09/18/23 1510 Note: GEOVANNY MEJÍA is a 53 yr old F who was admitted on 09/08/23 for INTRA ABDOMINAL ABCESS. Cervical MRI performed today as a surveillance for continued infection Patient has been noted to have progressive findings at C6-7 with impingement of the ventral thecal sac suggestive of a either a phlegmon or purulent collection Please refer to the official radiology report Currently, patient has utilization of the upper extremities and is unable to mobilize her lower extremities Instrumentation is present in her cervical spine at C5-6 which will have to be removed in order to optimize any debulking of the cervical cord Risks, benefits, complications have been discussed A consent has been obtained Anticipate probable anterior cervical discectomy and fusion C6-7 with exploration of previous fusion C5-6 and removal of plate; possible corpectomy and decompression of ventral cord Entered by: Alec Clemons MD on 09/18/23 1510 Report Signed by: Alec Clemons MD on 09/18/23 1523 <<Signature on File>> <Electronically signed by Alec Clemons MD> Report Signed by: on [facility] Work Phone: 1(600) 570-163110-26-2023 Progress note Author Alec Clemons [facility] September 18, 2023 3:23pm Note Date/Time September 18, 2023 3 :12pm [facility] Medical Records Patient: GEOVANNY MEJÍA [address] : 1970 [place], [place] [address] Location: [phone] Unit #: [id number] Status Note/Update Alec Clemons MD Service Dt/Tm: 09/18/23 1510 Note: GEOVANNY MEJÍA is a 53 yr old F who was admitted on 09/08/23 for INTRA ABDOMINAL ABCESS. Cervical MRI performed today as a surveillance for continued infection Patient has been noted to have progressive findings at C6-7 with impingement of the ventral thecal sac suggestive of a either a phlegmon or purulent collection Please refer to the official radiology report Currently, patient has utilization of the upper extremities and is unable to mobilize her lower extremities Instrumentation is present in her cervical spine at C5-6 which will have to be removed in order to optimize any debulking of the cervical cord Risks, benefits, complications have been discussed A consent has been obtained Anticipate probable anterior cervical discectomy and fusion C6-7 with exploration of previous fusion C5-6 and removal of plate; possible corpectomy and decompression of ventral cord Entered by: Alec Clemons MD on 09/18/23 1510 Report Signed by: Alec Clemons MD on 09/18/231522 <<Signature on File>> <Electronically signed by Alec Clemons MD> Report Signed by: on [facility] Work Phone: 1([phone]) [phone] Progress note Author Kait Still [facility] September 18, 2023 3:19pm Note Date/Time September 18, 2023 1 1:42am [facility] Case Management Patient: GEOVANNY MEJÍA1 Yumiko Suh. : 1970 [place], [place] [address] Location: [phone] Unit #: [id number] Case Management Daily Note Kait Still Service Date: 09/18/23 Case Mgmt Daily Note - Plan of Care [employer] Agrees with Attending and Consult Plan: Yes - Patient Preferences & Goals What is the patient's preference?: Services to be Determined Recommended acute discharge goals: Services to be Determined - COVID-19 Was Position Statement Letter Delivered?: Yes - Care Coordination Communication Care Coordination Communication: Spoke with patient's family via phone - Hospital Stay Days Day 1 Comment: 09/08 Met with patient in the room. Patient is from [place]. She is up here to visit her sister. Patient reporting she is normally independent. Doesnot have a PCP. Patient would like to use [facility] OP Pharm for meds. Planning to have her cousin pick her up at d/c. Contact is her cousin Ursula. Denies having LW/dPOA. [employer]: Evelyne Pena, RN Day 2 Comment: 09/09 Met with patient in the room. Patient asking to get up and move around. PT/OT to eval. S/p L ABD drain placement. Patient agreeable to [facility] for drain mgmt if needed. Reporting she will be going to [facility] at d/c to staywith her cousin Ursula. CM spoke with patients cousin Ursula via telephone who reports she is ok with [facility] coming to her home if patient would go there at d/c. Ursula reporting patient was homeless in [place] and recently move to [place] with faith [employer]. [employer]: Evelyne Pena, RN Day 3 Comment: 09/10 D/c needs pending medical course. Jr present. 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 PT/OT. ID c/s. Therapy recs for IPR vs OP PT. Will follow to assist with d/c needs. [employer]: Evelyne Pena, RN Day 4 Comment: 09/11 Met with patient in the room who is planning to d/c to her [facility] in [place], [place]. Patient is agreeable to [facility]. CM spoke with Ursula who is agreeable for patient to come there at d/c. Referral sent to [facility].Await approval. GLO[employer] CHIEF CREATIVE OFFICER. ABD drain. NPO. ID c/s. PT/OT. [employer]: Evelyne Pena, RN Day 5 Comment: 09/12 Met with patient in the room to discuss d/c plan. Patient unable to move b/l LE. No sensation to RLE. Does have sesation to LLE. PT/OT recommending SNF, patient agreeable. She would like to go somewhere near her cousin Ursula in [place], [place]. CM [facility] [place]. c/s for SNF placement and [facility] assist with [place]. Patient will need a precert. 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 If patient would improve with mobility, she has been accepted to [facility]. CM spoke with Ursula via telephone to update. [employer]: Evelyne Pena, RN Day 6 Comment: 09/15- POD 2. CM spoke with patient at bedside. VSS. WBC 19.9. PT/OT rec SNF. Pt verbalized agreeable for SNF and would like [facility]. MANOLO c/s & reported that [facility] is not in network with pt insurance. MANOLO spoke w/ pt & Lamin is now reviewing patient. Pt is awaiting the start of [place] [facility] application with [employer] as current dual insurance is out of state. Pt willalso require a precert when medically ready. CM following. Servicer [employer]: Dina Abebe Day 8 Comment: 09/15- POD 2. CM spoke with patient at bedside. VSS. WBC 19.9. PT/OT rec SNF. Pt verbalized agreeable for SNF and would like [facility]. c/s. Pt will require precert when medically ready. CM following. Day 9 Comment: 09/16- Noted plan changed to dc to [facility] pending bed & accepting physician. CM contacted [facility] this AM and spoke with Ashish, who explained that they will NOT be able to accept the patient d/t her insurance not in network. CMupdated the attending. Attending noted plans to attempt transfer to [facility] & if denied, to attempt transfer to [facility], per pt preferance. Transfer packet completed. CM following. @12:21- Nurse reported to CM that Dr Holt hasdeclined to take pt, per [facility], & that a message was relayed to the attending. @14:30- [employer] has assisted pt with completion of [place] GWEN vilma. CM faxing documentation to [facility] & calling now to verify if they are able to accept pt with that. If unable, CM to fax & verify w/ [facility]. If neither hospital is able to accept, attending plans to reach out to [facility]. @15:00- CM spoke with Shelby at [facility]. Shelby reported that she will communicate with her team & call CM back with a determination. CM to update attending physician. @15:45- CM received cb from Roseline at [facility]. Roseline stated that their neurosurgeon wants Deonte to call them to consider if they would be willingto take the patient, despite [facility] pending status and out of network insurance. CMupdated the attending. [employer]: Dina Abebe R Day Comment: 09/17- CM received perfect serve notification from pt's nurse after CM left for the day yesterday at 16:[address] Clemons, the pt has been accepted to [facility] and that the transfer center will be contacting [facility] when a bed is available. CM spoke w/ pt at bedside this AM & provided updates. Pt requestedCM to contact her cousin, Ursula Echevarria ([phone]), with any updates. CM called Ursula this AM; no answer & no vm set up.t. @10:27- Ursula called CM back & updates were provided. Servicer [employer]: Dina Abebe Day 11 Comment: 09/18 - Spoke with pt at bedside. Pt being transferred to [facility]. Spoke with AIRAM Crabtree from [facility] Transfer center at 0830 and 1330 today, and she states that there is no bed assigned on this pt at this time. RN and Provider updated. Servicer [employer]: Kait Still - Home Health/IV Infusion/Wound Vac Home Health Referral Indicated: Yes Home Health List Provided: Yes Indication for Home Health: Wound Care, Other Patient's Response: Yes Home Health Agencies: [facility] Patient given the option to view quality scores of facility?: Yes - Jail Facility SNF List Provided: Yes Jail Facilities: [facility] Social Work Consult initiated for SNF: Yes - Transportation Mode of Transportation: Ambulance - Respiratory Equipment Does the patient have a nebulizer at home?: No - * L * Length of Stay LOS (Including day of Admission and Discharge): 11 LOS Score: 5 - * C * Comorbidities Select All Conditions that Apply: No Comorbidity Condition Comorbidities Total Score: 0 - * E * Emergency Department Visits # of ER visits,6mos prior to admit,excl this admits ER visit: 0 Enter this number or 4 (whichever is smaller): 0 - LACE SCORE LACE Score: 5 - ANTICIPATED DISCHARGE Anticipated Discharge Date: 09/17/23 Is a ARCHIBALD Form Required?: No Entered by: Kait Still on 09/18/23 1137 Report Signed by: Kait Still on 09/18/23 1519 <<Signature on File>> <Electronically signed by Kait Still> Co-Signed by: on [facility] Work Phone: 1(287) 865-873710-26-2023 Progress note Author Kait Still [facility] September 18, 2023 3:19pm Note Date/Time September 18, 2023 1 1:42am [facility] Case Management Patient: GEOVANNY MEJÍA. : 1970 [place], [place] [address] Location: [phone] Unit #: [id number] Case Management Daily Note Kait Still Service Date: 09/18/23 Case Mgmt Daily Note - Plan of Care [employer] Agrees with Attending and Consult Plan: Yes - Patient Preferences & Goals What is the patient's preference?: Services to be Determined Recommended acute discharge goals: Services to be Determined - COVID-19 Was Position Statement Letter Delivered?: Yes - Care Coordination Communication Care Coordination Communication: Spoke with patient's family via phone - Hospital Stay Days Day 1 Comment: 09/08 Met with patient in the room. Patient is from [place]. She is up here to visit her sister. Patient reporting she is normally independent. Doesnot have a PCP. Patient would like to use [facility] OP [facility] for meds. Planning to have her cousin pick her up at d/c. Contact is her cousin Ursula. Denies having LW/dPOA. Servicer [employer]: Evelyne Pena, RN Day 2 Comment: 09/09 Met with patient in the room. Patient asking to get up and move around. PT/OT to eval. S/p L ABD drain placement. Patient agreeable to [facility] for drain mgmt if needed. Reporting she will be going to [facility] at d/c to staywith her cousin Ursula. CM spoke with patients cousin Ursula via telephone who reports she is ok with [facility] coming to her home if patient would go there at d/c. Ursula reporting patient was homeless in [place] and recently move to [place] with faith Amaya. Serv[employer]: Evelyne Pena, RN Day 3 Comment: 09/10 D/c needs pending medical course. Jr present. 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 PT/OT. ID c/s. Therapy recs for IPR vs OP PT. Will follow to assist with d/c needs. Servicer [employer]: Evelyne Pena, RN Day 4 Comment: 09/11 Met with patient in the room who is planning to d/c to her [facility] in [place], [place]. Patient is agreeable to [facility]. LENY spoke with Ursula who is agreeable for patient to come there at d/c. Referral sent to [facility].Await approval. GLOBAL CHIEF CREATIVE OFFICER. ABD drain. NPO. ID c/s. PT/OT. Servicer [employer]: Evelyne Pena, RN Day 5 Comment: 09/12 Met with patient in the room to discuss d/c plan. Patient unable to move b/l LE. No sensation to RLE. Does have sesation to LLE. PT/OT recommending SNF, patient agreeable. She would like to go somewhere near her cousin Ursula in [place], [place]. CM assisted patient with changing her address withher [facility] insurance to an [place] address. SW c/s for SNF placement and [facility] assist with [place]. Patient will need a precert. 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 If patient would improve with mobility, she has been accepted to [facility]. CM spoke with Ursula via telephone to update. Servicer [employer]: Evelyne Pena, RN Day 6 Comment: 09/15- POD 2. CM spoke with patient at bedside. VSS. WBC 19.9. PT/OT rec SNF. Pt verbalized agreeable for SNF and would like [facility]. SW c/s & reported that [facility] is not in network with pt insurance. MANOLO spoke w/ pt & Lamin is now reviewing patient. Pt is awaiting the start of [facility] application with [employer] as current dual insurance is out of state. Pt willalso require a precert when medically ready. CM following. Servicer [employer]: Dina Abebe Day 8 Comment: 09/15- POD 2. CM spoke with patient at bedside. VSS. WBC 19.9. PT/OT rec SNF. Pt verbalized agreeable for SNF and would like [facility]. MANOLO c/s. Pt will require precert when medically ready. CM following. Day 9 Comment: 09/16- Noted plan changed to dc to [facility] pending bed & accepting physician. CM contacted [facility] this AM and spoke with Ashish, who explained that they will NOT be able to accept the patient d/t her insurance not in network. CMupdated the attending. Attending noted plans to attempt transfer to [facility] & if denied, to attempt transfer to [facility], per pt preferance. Transfer packet completed. CM following. @12:21- Nurse reported to CM that Dr Holt hasdeclined to take pt, per [facility], & that a message was relayed to the attending. @14:30- [facility] has assisted pt with completion of [place] vilma. CM faxing documentation to [facility] & calling now to verify if they are able to accept pt with that. If unable, CM to fax & verify w/ [facility]. If neither hospital is able to accept, attending plans to reach out to [facility]. @15:00- CM spoke with Shelby at [facility]. Shelby reported that she will communicate with her team & call CM back with a determination. CM to update attending physician. @15:45- CM received cb from Roseline at [facility]. Roseline stated that their neurosurgeon wants Deonte to call them to consider if they would be willingto take the patient, despite [facility] pending status and out of network insurance. CMupdated the attending. Servicer [employer]: Dina Abebe Comment: 09/17- CM received perfect serve notification from pt's nurse after CM left for the day yesterday at 16:[address] Clemons, the pt has been accepted to [facility] and that the transfer center will be contacting [facility] when a bed is available. CM spoke w/ pt at bedside this AM & provided updates. Pt requestedCM to contact her cousin, Ursula Echevarria ([phone]), with any updates. CM called Ursula this AM; no answer & no vm set up.t. @:- Ursula called CM back & updates were provided. Servicer [employer]: Dina Abebe Comment: 09/18 - Spoke with pt at bedside. Pt being transferred to [facility]. Spoke with AIRAM Crabtree from [facility] Transfer center at 0830 and 1330 today, and she states that there is no bed assigned on this pt at this time. RN and Provider updated. Servicer [employer]: Kait Still - Home Health/IV Infusion/Wound Vac Home Health Referral Indicated: Yes Home Health List Provided: Yes Indication for Home Health: Wound Care, Other Patient's Response: Yes Home Health Agencies: [facility] Patient given the option to view quality scores of facility?: Yes - Jail Facility SNF List Provided: Yes Jail Facilities: [facility] Social Work Consult initiated for SNF: Yes - Transportation Mode of Transportation: Ambulance - Respiratory Equipment Does the patient have a nebulizer at home?: No - * L * Length of Stay LOS (Including day of Admission and Discharge): 11 LOS Score: 5 - * C * Comorbidities Select All Conditions that Apply: No Comorbidity Condition Comorbidities Total Score: 0 - * E * Emergency Department Visits # of ER visits,6mos prior to admit,excl this admits ER visit: 0 Enter this number or 4 (whichever is smaller): 0 - LACE SCORE LACE Score: 5 - ANTICIPATED DISCHARGE Anticipated Discharge Date: 09/17/23 Is a ARCHIBALD Form Required?: No Entered by: Kait Still on 09/18/23 9247 Report Signed by: Kait Still on 09/18/23 4632 <<Signature on File>> <Electronically signed by Kait Still> Co-Signed by: on [facility] Work Phone: 1(318) 392-838210-26-2023 Progress note Author Troy Garber [facility] September 18, 2023 2:24pm Note Date/Time September 18, 2023 8 :57am [facility] Medical Records Patient: GEOVANNY MEJÍA. : 1970 [place], [place] [address] Location: [address] [place] [address] Unit #: [id number] Progress Note - Hospitalist Troy Garber MD Service Dt/Tm: 09/18/23 1305 Assessment/Plan Assessment/Plan (1) Intra-abdominal abscess: Status: Acute Code(s): K65.1 - Peritoneal abscess Plan: 2 attempts at percutaneous drainage by IR has failed, and therefore general surgery consult has been recalled to assess the patient for their input and further recommendations. This has been the source of patient's bacteremia and distant seeding of the MSSA especially to the thoracic spine leading to the epidural abscess. Continue with IV antibiotic, which is being directed by ID consult. Patient remains in-house awaiting transfer to the [facility] whenever bed becomes available. We will continue with aggressive management as outlined. (2) Abscess in epidural space of thoracic spine: Status: Acute Code(s): G06.1 - Intraspinal abscess and granuloma Plan: Patient has finally been accepted at the [facility] upon converting her insurance to the [place] Medicaid. Currently she remains in-house awaiting a bed availability and transport to the [facility] to be assessed by neurosurgery and general surgery consult. Patient will need to have the source of the infection addressed, and as indicated above, another tube has been placed by IR yesterday, which is not draining. And we will continue with IV antibiotic as directed by ID consult. (3) Staphylococcus aureus septicemia: Status: Acute Code(s): A41.01 - Sepsis due to Methicillin susceptible Staphylococcus aureus Plan: Infectious disease consult monitoring and managing antibiotics for the septicemia. (4) HTN (hypertension): Status: Acute Qualifiers: Hypertension type: primary hypertension Qualified Code(s): I10 - Essential (primary) hypertension Code(s): I10 - Essential (primary) hypertension Plan: Continue with home regimen of antihypertensive, however will monitor closely because of the infection for hypotensive episodes. (5) Asthma: Status: Acute Qualifiers: Asthma complication type: uncomplicated Asthma persistence: intermittent Asthma severity: mild Qualified Code(s): J45.20 - Mild intermittent asthma, uncomplicated Code(s): J45.909 - Unspecified asthma, uncomplicated Plan: Home medication regimen as resumed, will continue with supportive management. (6) Normocytic normochromic anemia: Status: Acute Code(s): D64.9 - Anemia, unspecified Plan: Unclear etiology, however in the setting of infection, would want the infection to be brought under control prior to replenishing the iron stores. We will be obtaining anemia work-up. (7) Hyponatremia: Status: Acute Code(s): E87.1 - Hypo-osmolality and hyponatremia Plan: Unclear duration, stable and asymptomatic. Patient will need further work-up. This could be hypovolemia from dehydration. (8) Severe protein-calorie malnutrition: Status: Acute Code(s): E43 - Unspecified severe protein-calorie malnutrition Plan: Patient has albumin of 2.7 and prealbumin of 5 signaling severe protein calorie malnutrition. Patient will therefore need dietary consult to assist in the management since she needs proteins for healing process. (9) Hypocalcemia: Status: Acute Code(s): E83.51 - Hypocalcemia Plan: Patient does have hypocalcemia and previous ionized calcium was low. Patient isbeing started on vitamin D 5000 international units daily by mouth, and also Os-Riley 500, 1 tablet daily. We will continue to monitor serum calcium closely. (10) Electrolyte imbalance: Status: Acute Code(s): E87.8 - Other disorders of electrolyte and fluid balance, not elsewhere classified Plan: Including but not limited to hypocalcemia, hypokalemia and hypophosphatemia. Electrolyte imbalance is being corrected per protocol and will be repeating labsthis p.m. and tomorrow morning. Plan Currently awaiting bed availability for transfer to [facility] for general surgery and neurosurgery evaluation with further recommendations. CT scan of the abdomen and pelvis showing increase in the volume of the retroperitoneal abscess and patient had another drain placed by IR for abscess drainage yesterday, however this has not been successful in draining the abscess. Continue with empiric IV antibiotic as outlined, will optimize pain control. General surgery has been consulted here to evaluate the patient for their input, since there has been a delay in the transfer to the [facility]. We will continue to follow and monitor patient pending transfer. Current Code Status & Diet: 09/08/23 13:19 Code Status Routine Resuscitation Status: Full Code Code Status Order Placed: Code Status Ordered 09/08/23 at 1321 09/17/23 17:13 NPO with Meds Only Additional Instructions: NPO with medications only 6 hours prior to exam Discussed Patient's Care With: Nurse, Case Management and Physician Subjective Subjective: Patient was seen and examined this morning, after she had written for an MRI of the cervical spine. Overnight events noted. Patient is still complaining of pain in the upper back. Patient had a drain replacement for the left retroperitoneal abscess yesterday, however the drain bag was empty today. I diddiscuss with interventional radiologist Dr. Guevara, who had recommended surgical intervention, since there had been failed attempts at drainage, although both drains were directly in the fluid, but could not lead to resolution. Patient currently remains in-house on IV antibiotic, awaiting bed availability for transfer to the [facility]. Patient and her sister on the phone had been offered other options including the [facility] and the [facility]. [facility] had declined to accept the patient in transfer. However uponupdating patient's insurance, she had been accepted by [facility] and currently remainsin-house pending a bed availability. Patient is being followed closely by neurosurgeon Dr. Clemons with further recommendations. She is also being followedclosely by infectious disease provider Dr. Ramírez with IV antibiotic recommendations and management. Patient Status & Estimated DC Date Patient Registration Status: Inpatient Objective Constitutional: Last Vital Signs Temp Pulse Resp BP Pulse Ox O2 Flow Rate 97.8 F 87 16 121/67 96 2.0 09/18/23 03:22 09/18/23 07:43 09/18/23 07:43 09/18/23 07:43 09/18/23 07:43 09/18/23 03:22 Intake and Output 09/17/23 09/18/23 09/19/23 06:59 06:59 06:59 Intake Total 2373.61 2035.17 Output Total 3400 5050 Balance -1026.39 -3014.83 Admitting (IV Pump) Weight 83 kg Actual Weight (Kg) 83 kg General Appearance: Alert and Cooperative; No Resting Comfortably or Acute Distress Eyes: PERRLA and EOMI ENT: Normal Inspection, Pharynx Normal and Oral Mucosa Moist; No Pharyngeal Erythema Skin: Color Normal and Warm, Dry; No Rash, Diaphoresis or Pallor Cardiovascular: Irregular Rhythm; No Click, Rub, Gallop or Murmur Lungs: Clear to Auscultate Bila and Good Air Entry; No Rales or Expiratory Wheezes Abdomen: Firm, Tender to palpation (Diffuse tenderness), Hypoactive BS and Other(Abscess drain in place this time with an empty bag); No Rebound tender to palpat. Extremities: Activity as expected and Warm and Dry; No Cyanosis, Swelling or Edema Neurologic: A & O x3 and Other (Bilateral paraparesis, with intact sensation of the left lower extremity, however no sensation of the right lower extremity up to the upper thigh region. There is bilateral foot drop) Psychological: Mood & Affect Normal Data Labs: 09/18/23 04:49 Phosphorus 4.6 Magnesium 2.2 09/18/23 04:49 WBC 9.1 RBC 2.74 L Hgb 7.8 L Hct 23.5 L MCV 85.6 MCH 28.6 MCHC 33.4 RDW 16.1 H Plt Count 594 H 09/18/23 04:49 Sodium 128 L Potassium 4.1 Chloride 94 L Carbon Dioxide 28 Anion Gap 6 BUN 8 Creatinine 0.50 L Calcium 8.30 L The last 24 hours of labs have been reviewed. Imaging: I have reviewed the diagnostic images in the EMR. 09/17/23 12:16 CT Abd/Pelvis W/Contrast 46965 Stat 09/17/23 15:55 CT Peritoneal Abscess Stat Microbiology: Microbiology 09/13/23 16:06 Blood,Venous - Final Test not indicated 09/13/23 16:06 Blood,Venous Blood Culture - Final No growth after 5 days. 09/13/23 15:55 Blood,Venous - Final Test not indicated 09/13/23 15:55 Blood,Venous Blood Culture - Final No growth after 5 days. 09/13/23 05:00 Back Gram Stain - Final 09/13/23 05:00 Back Wound Culture - Final Staphylococcus aureus Medications and Comanagement: Medications reviewed separately. Entered by: Troy Garber MD on 09/18/23 0857 Report Signed by: Troy Garber MD on 09/18/23 1424 <<Signature on File>> <Electronically signed by Troy Garber MD> Report Signed by: on [facility] Work Phone: 1(244) 415-749910-26-2023 Progress note Author Troy Garber [facility] September 18, 2023 2:24pm Note Date/Time September 18, 2023 8 :57am [facility] Medical Records Patient: GEOVANNY MEJÍA. : 1970 [place] [address] Location: [address] [place] [address] Unit #: [id number] Progress Note - Hospitalist Troy Garber MD Service Dt/Tm: 09/18/23 1305 Assessment/Plan Assessment/Plan (1) Intra-abdominal abscess: Status: Acute Code(s): K65.1 - Peritoneal abscess Plan: 2 attempts at percutaneous drainage by IR has failed, and therefore general surgery consult has been recalled to assess the patient for their input and further recommendations. This has been the source of patient's bacteremia and distant seeding of the MSSA especially to the thoracic spine leading to the epidural abscess. Continue with IV antibiotic, which is being directed by ID consult. Patient remains in-house awaiting [facility] the [facility] whenever bed becomes available. We will continue with aggressive management as outlined. (2) Abscess in epidural space of thoracic spine: Status: Acute Code(s): G06.1 - Intraspinal abscess and granuloma Plan: Patient has finally been accepted at the [facility] upon converting her insurance to the [place] [employer]. Currently she remains in-house awaiting a bed availability and transport to the [facility] to be assessed by neurosurgery and general surgery consult. Patient will need to have the source of the infection addressed, and as indicated above, another tube has been placed by IR yesterday, which is not draining. And we will continue with IV antibiotic as directed by ID consult. (3) Staphylococcus aureus septicemia: Status: Acute Code(s): A41.01 - Sepsis due to Methicillin susceptible Staphylococcus aureus Plan: Infectious disease consult monitoring and managing antibiotics for the septicemia. (4) HTN (hypertension): Status: Acute Qualifiers: Hypertension type: primary hypertension Qualified Code(s): I10 - Essential (primary) hypertension Code(s): I10 - Essential (primary) hypertension Plan: Continue with home regimen of antihypertensive, however will monitor closely because of the infection for hypotensive episodes. (5) Asthma: Status: Acute Qualifiers: Asthma complication type: uncomplicated Asthma persistence: intermittent Asthma severity: mild Qualified Code(s): J45.20 - Mild intermittent asthma, uncomplicated Code(s): J45.909 - Unspecified asthma, uncomplicated Plan: Home medication regimen as resumed, will continue with supportive management. (6) Normocytic normochromic anemia: Status: Acute Code(s): D64.9 - Anemia, unspecified Plan: Unclear etiology, however in the setting of infection, would want the infection to be brought under control prior to replenishing the iron stores. We will be obtaining anemia work-up. (7) Hyponatremia: Status: Acute Code(s): E87.1 - Hypo-osmolality and hyponatremia Plan: Unclear duration, stable and asymptomatic. Patient will need further work-up. This could be hypovolemia from dehydration. (8) Severe protein-calorie malnutrition: Status: Acute Code(s): E43 - Unspecified severe protein-calorie malnutrition Plan: Patient has albumin of 2.7 and prealbumin of 5 signaling severe protein calorie malnutrition. Patient will therefore need dietary consult to assist in the management since she needs proteins for healing process. (9) Hypocalcemia: Status: Acute Code(s): E83.51 - Hypocalcemia Plan: Patient does have hypocalcemia and previous ionized calcium was low. Patient isbeing started on vitamin D 5000 international units daily by mouth, and also Os-Riley 500, 1 tablet daily. We will continue to monitor serum calcium closely. (10) Electrolyte imbalance: Status: Acute Code(s): E87.8 - Other disorders of electrolyte and fluid balance, not elsewhere classified Plan: Including but not limited to hypocalcemia, hypokalemia and hypophosphatemia. Electrolyte imbalance is being corrected per protocol and will be repeating labsthis p.m. and tomorrow morning. Plan Currently awaiting bed availability [facility] for [facility] and neurosurgery evaluation with further recommendations. CT scan of the abdomen and pelvis showing increase in the volume of the retroperitoneal abscess and patient had another drain placed by IR for abscess drainage yesterday, however this has not been successful in draining the abscess. Continue with empiric IV antibiotic as outlined, will optimize pain control. General surgery has been consulted here to evaluate the patient for their input, since there has been a delay in the transfer to the [facility]. We will continue to follow and monitor patient pending transfer. Current Code Status & Diet: 09/08/23 13:19 Code Status Routine Resuscitation Status: Full Code Code Status Order Placed: Code Status Ordered 09/08/23 at 1321 09/17/23 17:13 NPO with Meds Only Additional Instructions: NPO with medications only 6 hours prior to exam Discussed Patient's Care With: Nurse, Case Management and Physician Subjective Subjective: Patient was seen and examined this morning, after she had written for an MRI of the cervical spine. Overnight events noted. Patient is still complaining of pain in the upper back. Patient had a drain replacement for the left retroperitoneal abscess yesterday, however the drain bag was empty today. I diddiscuss with interventional radiologist Dr. Guevara, who had recommended surgical intervention, since there had been failed attempts at drainage, although both drains were directly in the fluid, but could not lead to resolution. Patient currently remains in-house on IV antibiotic, awaiting bed availability for transfer to the [facility]. Patient and her sister on the phone had been offered other options including the [facility] and the [facility]. [facility] had declined to accept the patient in transfer. However uponupdating patient's insurance, she had been accepted by [facility] and currently remainsin-house pending a bed availability. Patient is being followed closely by neurosurgeon Dr. Clemons with further recommendations. She is also being followedclosely by infectious disease provider Dr. Ramírez with IV antibiotic recommendations and management. Patient Status & Estimated DC Date Patient Registration Status: Inpatient Objective Constitutional: Last Vital Signs Temp Pulse Resp BP Pulse Ox O2 Flow Rate 97.8 F 87 16 121/67 96 2.0 09/18/23 03:22 09/18/23 07:43 09/18/23 07:43 09/18/23 07:43 09/18/23 07:43 09/18/23 03:22 Intake and Output 09/17/23 09/18/23 09/19/23 06:59 06:59 06:59 Intake Total 2373.61 2035.17 Output Total 3400 5050 Balance -1026.39 -3014.83 Admitting (IV Pump) Weight 83 kg Actual Weight (Kg) 83 kg General Appearance: Alert and Cooperative; No Resting Comfortably or Acute Distress Eyes: PERRLA and EOMI ENT: Normal Inspection, Pharynx Normal and Oral Mucosa Moist; No Pharyngeal Erythema Skin: Color Normal and Warm, Dry; No Rash, Diaphoresis or Pallor Cardiovascular: Irregular Rhythm; No Click, Rub, Gallop or Murmur Lungs: Clear to Auscultate Bila and Good Air Entry; No Rales or Expiratory Wheezes Abdomen: Firm, Tender to palpation (Diffuse tenderness), Hypoactive BS and Other(Abscess drain in place this time with an empty bag); No Rebound tender to palpat. Extremities: Activity as expected and Warm and Dry; No Cyanosis, Swelling or Edema Neurologic: A & O x3 and Other (Bilateral paraparesis, with intact sensation of the left lower extremity, however no sensation of the right lower extremity up to the upper thigh region. There is bilateral foot drop) Psychological: Mood & Affect Normal Data Labs: 09/18/23 04:49 Phosphorus 4.6 Magnesium 2.2 09/18/23 04:49 WBC 9.1 RBC 2.74 L Hgb 7.8 L Hct 23.5 L MCV 85.6 MCH 28.6 MCHC 33.4 RDW 16.1 H Plt Count 594 H 09/18/23 04:49 Sodium 128 L Potassium 4.1 Chloride 94 L Carbon Dioxide 28 Anion Gap 6 BUN 8 Creatinine 0.50 L Calcium 8.30 L The last 24 hours of labs have been reviewed. Imaging: I have reviewed the diagnostic images in the EMR. 09/17/23 12:16 CT Abd/Pelvis W/Contrast 91624 Stat 09/17/23 15:55 CT Peritoneal Abscess Stat Microbiology: Microbiology 09/13/23 16:06 Blood,Venous - Final Test not indicated 09/13/23 16:06 Blood,Venous Blood Culture - Final No growth after 5 days. 09/13/23 15:55 Blood,Venous - Final Test not indicated 09/13/23 15:55 Blood,Venous Blood Culture - Final No growth after 5 days. 09/13/23 05:00 Back Gram Stain - Final 09/13/23 05:00 Back Wound Culture - Final Staphylococcus aureus Medications and Comanagement: Medications reviewed separately. Entered by: Troy Garber MD on 09/18/23 0857 Report Signed by: Troy Garber MD on 09/18/23 1424 <<Signature on File>> <Electronically signed by Troy Garber MD> Report Signed by: on [facility] Work Phone: 1(552) 721-906510-25-2023 Progress note Author Alec Clemons [facility] September 17, 2023 7:14pm Note Date/Time September 16, 2023 1 :34pm [facility] Medical Records Patient: GEOVANNY MEJÍA. : 1970 [place], [place] [address] Location: [facility] [phone] Unit #: [id number] Progress Note Neurosurgery Jasbir Ann PA-C Service Dt/Tm: 09/16/23 1333 <Jasbir Ann PA-C - Last Filed: 09/16/23 13:35> Assessment/Plan (1) Spinal epidural abscess: Status: Acute Plan: Agreeable with current plan. No new recommendations from the neurosurgical service at this time <Alec Clemons MD - Last Filed: 09/17/23 19:14> Assessment/Plan (1) Spinal epidural abscess: Plan: Agreeable with current plan. No new recommendations from the neurosurgical service at this time Update of events over the past 24 hours- Discussed case initially with my colleagues and the recommendation was made for her to be transferred secondary to the fact that there has been a reaccumulationof the spinal epidural abscess despite her not regaining neurologic function. It appears that the bony architecture is now involved throughout the thoracic spine and there may also be collections of fluid along the vertebral bodies within the thoracic space. In the course of the process of having the patient excepted, I spoke with the Ortho spine surgeon lockstitch front maker and the transfer center at [facility]. I explained that the patient still has persistent infection which appears to be increasing in nature and has resulted in reaccumulation of fluid ventral to the thecal sac. The issue of a spinal cord infarct was also posed and that can explain her lossof neurologic function and lack of physiologic function based on neuro monitoring during her decompressive surgery. Given the extent of the infectiousfindings and the need for potential debridement, it may be best for the patient to have this type of complicated surgery performed at a tertiary center. Any type of intervention is more to address the infection than improving her neurologic function in the lower extremities at this time. The patient underwent a recent CT scan of the abdomen and a new drain has been placed secondary to the findings. We will continue with aggressive antibiotic treatment and monitor her upper extremity function since she remains at risk of developing an expanded infection. <Jasbir Ann PA-C - Last Filed: 09/16/23 13:35> Subjective GEOVANNY MEJÍA is a 53 yr old F who was admitted on 09/08/23 for INTRA ABDOMINAL ABCESS. S: Patient seen and examined upright in bed. Has continued complaints of lower extremity weakness, sensory rest on the right side greater than left. Reports pain is well controlled. No new complaints or symptoms at this time <Jasbir Ann PA-C - Last Filed: 09/16/23 13:35> Objective Hemodynamics: Vital Signs - Last Set Temperature 98.4 F 09/16/23 08:06 Pulse Rate 88 09/16/23 12:29 Respiratory Rate 16 09/16/23 12:29 Blood Pressure 129/61 09/16/23 12:29 Oxygen Saturation% 96 09/16/23 12:29 Liters of Oxygen 2.0 09/14/23 09:00 Intake and Output 09/15/23 09/16/23 09/17/23 06:59 06:59 06:59 Intake Total 3457.19 2745.79 Output Total 3400 2150 Balance 57.19 595.79 Daily Weight: Admitting (IV Pump) Weight 83 kg Actual Weight (Kg) 83 kg O: Spontaneously awake and alert Surgical incisions are clean, dry, intact, no signs of dehiscence Persistent bilateral lower extremity paraplegia; minimal ability to discern light touch locations No clonus or hyperreflexia Continues to experience axial back pain Bilateral upper extremity strength 5/5 No nuchal rigidity or photophobia Results: Laboratory Results - last 24 hr 09/16/23 09/13/23 05:48 08:51 WBC 19.4 H RBC 2.85 L Hgb 8.0 L Hct 24.4 L MCV 85.6 MCH 28.0 MCHC 32.8 L RDW 16.1 H Plt Count 576 H Neut % (Auto) 85.9 H Lymph % (Auto) 8.8 L Graham % (Auto) 4.0 Eos % (Auto) 0.3 Baso % (Auto) 1.0 Nucleat RBC Rel Count 0.0 Absolute Neuts (auto) 95753 H Absolute Lymphs (auto) 1700 Absolute Monos (auto) 800 Absolute Eos (auto) 100 Absolute Basos (auto) 200 Polychromasia Slight Hypochromasia 2+ Anisocytosis 1+ Microcytosis 1+ Macrocytosis 1+ RBC Morph Comment Test not indicated ESR 112 H Sodium 128 L Potassium 4.3 Chloride 96 L Carbon Dioxide 26 Anion Gap 6 BUN 11 Creatinine 0.47 L GFR Calculation > 60 Random Glucose 124 H Calcium 8.10 L Phosphorus 4.8 H D Magnesium 2.1 C-Reactive Protein 17.1 H Albumin 2.5 L Slides for Path Review * Microbiology 09/11/23 13:40 Blood,Venous - Final 09/11/23 13:40 Blood,Venous Blood Culture - Final Staphylococcus aureus 09/11/23 13:35 Blood,Venous Blood Culture - Final Staphylococcus aureus 09/13/23 05:00 Back Gram Stain - Final 09/13/23 05:00 Back Wound Culture - Preliminary Staphylococcus aureus 09/13/23 16:06 Blood,Venous Blood Culture - Preliminary No growth after 3 days, cultures held 5 days. 09/13/23 15:55 Blood,Venous Blood Culture - Preliminary No growth after 3 days, cultures held 5 days. I have reviewed the diagnostic images from Radiology in the EMR Medications: Current medications reviewed and appropriate changes or recommendations have been made. Entered by: Jasbir Ann PA-C on 09/16/23 1333 Report Signed by: Jasbir Ann PA-C on 09/16/23 1335 <<Signature on File>> < 1955 <<Signature on File>> <Electronically signed by Alec Clemons MD> [facility] Work Phone: 1(126) 937-793410-25-2023 Progress note Author Alec Clemons [facility] September 17, 2023 7:14pm Note Date/Time September 16, 2023 1 :34pm [facility] Medical Records Patient: GEOVANNY MEJÍA. : 1970 [place], [place] [address] Location: [facility] [phone] Unit #: [id number] Progress Note Neurosurgery Jasbir Ann PA-C Service Dt/Tm: 09/16/23 1333 <Jasbir Ann PA-C - Last Filed: 09/16/23 13:35> Assessment/Plan (1) Spinal epidural abscess: Status: Acute Plan: Agreeable with current plan. No new recommendations from the neurosurgical service at this time <Alec Clemons MD - Last Filed: 09/17/23 19:14> Assessment/Plan (1) Spinal epidural abscess: Plan: Agreeable with current plan. No new recommendations from the neurosurgical service at this time Update of events over the past 24 hours- Discussed case initially with my colleagues and the recommendation was made for her to be transferred secondary to the fact that there has been a reaccumulationof the spinal epidural abscess despite her not regaining neurologic function. It appears that the bony architecture is now involved throughout the thoracic spine and there may also be collections of fluid along the vertebral bodies within the thoracic space. In the course of the process of having the patient excepted, I spoke with the Ortho spine surgeon lockstitch front maker and the transfer center at [facility]. I explained that the patient still has persistent infection which appears to be increasing in nature and has resulted in reaccumulation of fluid ventral to the thecal sac. The issue of a spinal cord infarct was also posed and that can explain her lossof neurologic function and lack of physiologic function based on neuro monitoring during her decompressive surgery. Given the extent of the infectiousfindings and the need for potential debridement, it may be best for the patient to have this type of complicated surgery performed at a tertiary center. Any type of intervention is more to address the infection than improving her neurologic function in the lower extremities at this time. The patient underwent a recent CT scan of the abdomen and a new drain has been placed secondary to the findings. We will continue with aggressive antibiotic treatment and monitor her upper extremity function since she remains at risk of developing an expanded infection. <Jasbir Ann PA-C - Last Filed: 09/16/23 13:35> Subjective GEOVANNY MEJÍA is a 53 yr old F who was admitted on 09/08/23 for INTRA ABDOMINAL ABCESS. S: Patient seen and examined upright in bed. Has continued complaints of lower extremity weakness, sensory rest on the right side greater than left. Reports pain is well controlled. No new complaints or symptoms at this time <Jasbir Ann PA-C - Last Filed: 09/16/23 13:35> Objective Hemodynamics: Vital Signs - Last Set Temperature 98.4 F 09/16/23 08:06 Pulse Rate 88 09/16/23 12:29 Respiratory Rate 16 09/16/23 12:29 Blood Pressure 129/61 09/16/23 12:29 Oxygen Saturation% 96 09/16/23 12:29 Liters of Oxygen 2.0 09/14/23 09:00 Intake and Output 09/15/23 09/16/23 09/17/23 06:59 06:59 06:59 Intake Total 3457.19 2745.79 Output Total 3400 2150 Balance 57.19 595.79 Daily Weight: Admitting (IV Pump) Weight 83 kg Actual Weight (Kg) 83 kg O: Spontaneously awake and alert Surgical incisions are clean, dry, intact, no signs of dehiscence Persistent bilateral lower extremity paraplegia; minimal ability to discern light touch locations No clonus or hyperreflexia Continues to experience axial back pain Bilateral upper extremity strength 5/5 No nuchal rigidity or photophobia Results: Laboratory Results - last 24 hr 09/16/23 09/13/23 05:48 08:51 WBC 19.4 H RBC 2.85 L Hgb 8.0 L Hct 24.4 L MCV 85.6 MCH 28.0 MCHC 32.8 L RDW 16.1 H Plt Count 576 H Neut % (Auto) 85.9 H Lymph % (Auto) 8.8 L Graham % (Auto) 4.0 Eos % (Auto) 0.3 Baso % (Auto) 1.0 Nucleat RBC Rel Count 0.0 Absolute Neuts (auto) 35206 H Absolute Lymphs (auto) 1700 Absolute Monos (auto) 800 Absolute Eos (auto) 100 Absolute Basos (auto) 200 Polychromasia Slight Hypochromasia 2+ Anisocytosis 1+ Microcytosis 1+ Macrocytosis 1+ RBC Morph Comment Test not indicated ESR 112 H Sodium 128 L Potassium 4.3 Chloride 96 L Carbon Dioxide 26 Anion Gap 6 BUN 11 Creatinine 0.47 L GFR Calculation > 60 Random Glucose 124 H Calcium 8.10 L Phosphorus 4.8 H D Magnesium 2.1 C-Reactive Protein 17.1 H Albumin 2.5 L Slides for Path Review * Microbiology 09/11/23 13:40 Blood,Venous - Final 09/11/23 13:40 Blood,Venous Blood Culture - Final Staphylococcus aureus 09/11/23 13:35 Blood,Venous Blood Culture - Final Staphylococcus aureus 09/13/23 05:00 Back Gram Stain - Final 09/13/23 05:00 Back Wound Culture - Preliminary Staphylococcus aureus 09/13/23 16:06 Blood,Venous Blood Culture - Preliminary No growth after 3 days, cultures held 5 days. 09/13/23 15:55 Blood,Venous Blood Culture - Preliminary No growth after 3 days, cultures held 5 days. I have reviewed the diagnostic images from Radiology in the EMR Medications: Current medications reviewed and appropriate changes or recommendations have been made. Entered by: Jasbir Ann PA-C on 09/16/231332 Report Signed by: Jasbir Ann PA-C on 09/16/231334 <<Signature on File>> < 191 <<Signature on File>> <Electronically signed by Alec Clemons MD> [facility] Work Phone: 1(522) 329-481310-25-2023 Progress note Author Troy Garber [facility] September 17, 2023 5:33pm Note Date/Time September 17, 2023 5 :14pm [facility] Medical Records Patient: GEOVANNY MEJÍA. : 1970 [place], [place] [address] Location: [facility] [phone] Unit #: [id number] Progress Note - Hospitalist Troy Garber MD Service Dt/Tm: 09/17/23 1714 Assessment/Plan Assessment/Plan (1) Intra-abdominal abscess: Status: Acute Code(s): K65.1 - Peritoneal abscess Plan: This has been the source of patient's bacteremia and distant seeding of the MSSAespecially to the thoracic spine leading to the epidural abscess. Scheduled forabscess drainage and tube placement by interventional radiologist. Continue with IV antibiotic, which is being directed by ID consult. Patient remains in-house awaiting transfer to the [facility] whenever bed becomes available. We will continue with aggressive management as outlined. (2) Abscess in epidural space of thoracic spine: Status: Acute Code(s): G06.1 - Intraspinal abscess and granuloma Plan: Patient has finally been accepted at the [facility] upon converting her insurance to the [place] [employer]. Currently she remains in-house awaiting a bed availability and transport to the [facility] to be assessed by neurosurgery and general surgery consult. Patient will need to have the source of the infection addressed, and as indicated above, another tube is going to be placed and we will continue withIV antibiotic as directed by ID consult. (3) Staphylococcus aureus septicemia: Status: Acute Code(s): A41.01 - Sepsis due to Methicillin susceptible Staphylococcus aureus Plan: Infectious disease consult monitoring and managing antibiotics for the septicemia. (4) HTN (hypertension): Status: Acute Qualifiers: Hypertension type: primary hypertension Qualified Code(s): I10 - Essential (primary) hypertension Code(s): I10 - Essential (primary) hypertension Plan: Continue with home regimen of antihypertensive, however will monitor closely because of the infection for hypotensive episodes. (5) Asthma: Status: Acute Qualifiers: Asthma severity: mild Asthma persistence: intermittent Asthma complication type: uncomplicated Qualified Code(s): J45.20 - Mild intermittent asthma, uncomplicated Code(s): J45.909 - Unspecified asthma, uncomplicated Plan: Home medication regimen as resumed, will continue with supportive management. (6) Normocytic normochromic anemia: Status: Acute Code(s): D64.9 - Anemia, unspecified Plan: Unclear etiology, however in the setting of infection, would want the infection to be brought under control prior to replenishing the iron stores. We will be obtaining anemia work-up. (7) Hyponatremia: Status: Acute Code(s): E87.1 - Hypo-osmolality and hyponatremia Plan: Unclear duration, stable and asymptomatic. Patient will need further work-up. This could be hypovolemia from dehydration. (8) Severe protein-calorie malnutrition: Status: Acute Code(s): E43 - Unspecified severe protein-calorie malnutrition Plan: Patient has albumin of 2.7 and prealbumin of 5 signaling severe protein calorie malnutrition. Patient will therefore need dietary consult to assist in the management since she needs proteins for healing process. (9) Hypocalcemia: Status: Acute Code(s): E83.51 - Hypocalcemia Plan: Patient does have hypocalcemia and previous ionized calcium was low. Patient isbeing started on vitamin D 5000 international units daily by mouth, and also Os-Riley 500, 1 tablet daily. We will continue to monitor serum calcium closely. (10) Electrolyte imbalance: Status: Acute Code(s): E87.8 - Other disorders of electrolyte and fluid balance, not elsewhere classified Plan: Including but not limited to hypocalcemia, hypokalemia and hypophosphatemia. Electrolyte imbalance is being corrected per protocol and will be repeating labsthis p.m. and tomorrow morning. Plan Currently awaiting bed availability for [facility] to [facility] for general surgery and neurosurgery evaluation with further recommendations. CT scan of the abdomen and pelvis showing increase in the volume of the retroperitoneal abscess and therefore patient is being scheduled for abscess drainage and tube placement by IR. Continue with empiric IV antibiotic as outlined, will optimize pain control after the CT scan. Current Code Status & Diet: 09/08/23 13:19 Code Status Routine Resuscitation Status: Full Code Code Status Order Placed: Code Status Ordered 09/08/23 at 1321 09/17/23 17:13 NPO with Meds Only Additional Instructions: NPO with medications only 6 hours prior to exam Discussed Patient's Care With: Nurse, Case Management, Social Work and Physician Subjective Subjective: Patient was seen and examined this morning, she was complaining of abdominal pain and distention. Patient had been scheduled for stat CT abdomen and pelvis with contrast. Patient initially I was told from the CT suite had refused the imaging studies. However I had notified her RN to inform the patient that the only way to proceed further with assessing as to whether also was going on was to get the CT scan of the abdomen and pelvis. She subsequently had agreed, had it done and I did receive a call from Dr. Guevara, the patient's left retroperitoneal abscess has increased in volume and therefore we need to replacethe drainage tube. An order has been placed for a new drain to be placed for drainage of the abscess. Patient Status & Estimated DC Date Patient Registration Status: Inpatient Objective Constitutional: Last Vital Signs Temp Pulse Resp BP Pulse Ox O2 Flow Rate 98.5 F 88 18 115/65 100 2 09/17/23 14:09 09/17/23 16:41 09/17/23 16:41 09/17/23 16:41 09/17/23 16:41 09/17/23 16:41 Intake and Output 09/16/23 09/17/23 09/18/23 06:59 06:59 06:59 Intake Total 2745.79 2373.61 1098.34 Output Total 2150 3400 1300 Balance 595.79 -1026.39 -201.66 Admitting (IV Pump) Weight 83 kg Actual Weight (Kg) 83 kg General Appearance: Alert and Cooperative; No Resting Comfortably or Acute Distress Eyes: PERRLA and EOMI ENT: Normal Inspection, Pharynx Normal and Oral Mucosa Moist; No Pharyngeal Erythema Skin: Color Normal and Warm, Dry; No Rash, Diaphoresis or Pallor Cardiovascular: Irregular Rhythm; No Click, Rub, Gallop or Murmur Lungs: Clear to Auscultate Bila and Good Air Entry; No Rales or Expiratory Wheezes Abdomen: Firm, Tender to palpation (Diffuse tenderness), Hypoactive BS and Other(Abscess drain in place draining purulent fluid); No Rebound tender to palpat. Extremities: Activity as expected and Warm and Dry; No Cyanosis, Swelling or Edema Neurologic: A & O x3 and Other (Bilateral paraparesis, with intact sensation of the left lower extremity, however no sensation of the right lower extremity up to the upper thigh region.) Psychological: Mood & Affect Normal Data Labs: 09/17/23 04:48 Phosphorus 4.5 Magnesium 2.2 09/17/23 04:48 WBC 13.0 H RBC 2.77 L Hgb 8.0 L Hct 23.9 L MCV 86.1 MCH 29.0 MCHC 33.7 RDW 16.1 H Plt Count 635 H 09/17/23 04:48 Sodium 129 L Potassium 4.2 Chloride 96 L Carbon Dioxide 26 Anion Gap 7 BUN 9 Creatinine 0.47 L Calcium 8.10 L The last 24 hours of labs have been reviewed. Imaging: I have reviewed the diagnostic images in the EMR. 09/17/23 12:16 CT Abd/Pelvis W/Contrast 00251 Stat Microbiology: Microbiology 09/13/23 05:00 Back Gram Stain - Final 09/13/23 05:00 Back Wound Culture - Preliminary Staphylococcus aureus 09/13/23 16:06 Blood,Venous Blood Culture - Preliminary No growth after 4 days, cultures held 5 days. 09/13/23 15:55 Blood,Venous Blood Culture - Preliminary No growth after 4 days, cultures held 5 days. Medications and Comanagement: Medications reviewed separately. Entered by: Troy Garber MD on 09/17/231713 Report Signed by: Troy Garber MD on 09/17/231732 <<Signature on File>> <Electronically signed by Troy Garber MD> Report Signed by: on [facility] Work Phone: 1(245) 991-651210-25-2023 Progress note Author Troy Garber [facility] September 17, 2023 5:33pm Note Date/Time September 17, 2023 5 :14pm [facility] Medical Records Patient: GEOVANNY MEJÍA. : 1970 [place], [place] [address] Location: [phone] Unit #: [id number] Progress Note - Hospitalist Troy Garber MD Service Dt/Tm: 09/17/231713 Assessment/Plan Assessment/Plan (1) Intra-abdominal abscess: Status: Acute Code(s): K65.1 - Peritoneal abscess Plan: This has been the source of patient's bacteremia and distant seeding of the MSSAespecially to the thoracic spine leading to the epidural abscess. Scheduled forabscess drainage and tube placement by interventional radiologist. Continue with IV antibiotic, which is being directed by ID consult. Patient remains in-house awaiting transfer to the [facility] whenever bed becomes available. We will continue with aggressive management as outlined. (2) Abscess in epidural space of thoracic spine: Status: Acute Code(s): G06.1 - Intraspinal abscess and granuloma Plan: Patient has finally been accepted at the [facility] upon converting her insurance to the [place]. Currently she remains in-house awaiting a bed availability and transport to the [facility] to be assessed by neurosurgery and general surgery consult. Patient will need to have the source of the infection addressed, and as indicated above, another tube is going to be placed and we will continue withIV antibiotic as directed by ID consult. (3) Staphylococcus aureus septicemia: Status: Acute Code(s): A41.01 - Sepsis due to Methicillin susceptible Staphylococcus aureus Plan: Infectious disease consult monitoring and managing antibiotics for the septicemia. (4) HTN (hypertension): Status: Acute Qualifiers: Hypertension type: primary hypertension Qualified Code(s): I10 - Essential (primary) hypertension Code(s): I10 - Essential (primary) hypertension Plan: Continue with home regimen of antihypertensive, however will monitor closely because of the infection for hypotensive episodes. (5) Asthma: Status: Acute Qualifiers: Asthma severity: mild Asthma persistence: intermittent Asthma complication type: uncomplicated Qualified Code(s): J45.20 - Mild intermittent asthma, uncomplicated Code(s): J45.909 - Unspecified asthma, uncomplicated Plan: Home medication regimen as resumed, will continue with supportive management. (6) Normocytic normochromic anemia: Status: Acute Code(s): D64.9 - Anemia, unspecified Plan: Unclear etiology, however in the setting of infection, would want the infection to be brought under control prior to replenishing the iron stores. We will be obtaining anemia work-up. (7) Hyponatremia: Status: Acute Code(s): E87.1 - Hypo-osmolality and hyponatremia Plan: Unclear duration, stable and asymptomatic. Patient will need further work-up. This could be hypovolemia from dehydration. (8) Severe protein-calorie malnutrition: Status: Acute Code(s): E43 - Unspecified severe protein-calorie malnutrition Plan: Patient has albumin of 2.7 and prealbumin of 5 signaling severe protein calorie malnutrition. Patient will therefore need dietary consult to assist in the management since she needs proteins for healing process. (9) Hypocalcemia: Status: Acute Code(s): E83.51 - Hypocalcemia Plan: Patient does have hypocalcemia and previous ionized calcium was low. Patient isbeing started on vitamin D 5000 international units daily by mouth, and also Os-Riley 500, 1 tablet daily. We will continue to monitor serum calcium closely. (10) Electrolyte imbalance: Status: Acute Code(s): E87.8 - Other disorders of electrolyte and fluid balance, not elsewhere classified Plan: Including but not limited to hypocalcemia, hypokalemia and hypophosphatemia. Electrolyte imbalance is being corrected per protocol and will be repeating labsthis p.m. and tomorrow morning. Plan Currently awaiting bed availability for transfer to [facility] for general surgery and neurosurgery evaluation with further recommendations. CT scan of the abdomen and pelvis showing increase in the volume of the retroperitoneal abscess and therefore patient is being scheduled for abscess drainage and tube placement by IR. Continue with empiric IV antibiotic as outlined, will optimize pain control after the CT scan. Current Code Status & Diet: 09/08/23 13:19 Code Status Routine Resuscitation Status: Full Code Code Status Order Placed: Code Status Ordered 09/08/23 at 1321 09/17/23 17:13 NPO with Meds Only Additional Instructions: NPO with medications only 6 hours prior to exam Discussed Patient's Care With: Nurse, Case Management, Social Work and Physician Subjective Subjective: Patient was seen and examined this morning, she was complaining of abdominal pain and distention. Patient had been scheduled for stat CT abdomen and pelvis with contrast. Patient initially I was told from the CT suite had refused the imaging studies. However I had notified her RN to inform the patient that the only way to proceed further with assessing as to whether also was going on was to get the CT scan of the abdomen and pelvis. She subsequently had agreed, had it done and I did receive a call from Dr. Guevara, the patient's left retroperitoneal abscess has increased in volume and therefore we need to replacethe drainage tube. An order has been placed for a new drain to be placed for drainage of the abscess. Patient Status & Estimated DC Date Patient Registration Status: Inpatient Objective Constitutional: Last Vital Signs Temp Pulse Resp BP Pulse Ox O2 Flow Rate 98.5 F 88 18 115/65 100 2 09/17/23 14:09 09/17/23 16:41 09/17/23 16:41 09/17/23 16:41 09/17/23 16:41 09/17/23 16:41 Intake and Output 09/16/23 09/17/23 09/18/23 06:59 06:59 06:59 Intake Total 9135.79 2373.61 1098.34 Output Total 2150 3400 1300 Balance 595.79 -1026.39 -201.66 Admitting (IV Pump) Weight 83 kg Actual Weight (Kg) 83 kg General Appearance: Alert and Cooperative; No Resting Comfortably or Acute Distress Eyes: PERRLA and EOMI ENT: Normal Inspection, Pharynx Normal and Oral Mucosa Moist; No Pharyngeal Erythema Skin: Color Normal and Warm, Dry; No Rash, Diaphoresis or Pallor Cardiovascular: Irregular Rhythm; No Click, Rub, Gallop or Murmur Lungs: Clear to Auscultate Bila and Good Air Entry; No Rales or Expiratory Wheezes Abdomen: Firm, Tender to palpation (Diffuse tenderness), Hypoactive BS and Other(Abscess drain in place draining purulent fluid); No Rebound tender to palpat. Extremities: Activity as expected and Warm and Dry; No Cyanosis, Swelling or Edema Neurologic: A & O x3 and Other (Bilateral paraparesis, with intact sensation of the left lower extremity, however no sensation of the right lower extremity up to the upper thigh region.) Psychological: Mood & Affect Normal Data Labs: 09/17/23 04:48 Phosphorus 4.5 Magnesium 2.2 09/17/23 04:48 WBC 13.0 H RBC 2.77 L Hgb 8.0 L Hct 23.9 L MCV 86.1 MCH 29.0 MCHC 33.7 RDW 16.1 H Plt Count 635 H 09/17/23 04:48 Sodium 129 L Potassium 4.2 Chloride 96 L Carbon Dioxide 26 Anion Gap 7 BUN 9 Creatinine 0.47 L Calcium 8.10 L The last 24 hours of labs have been reviewed. Imaging: I have reviewed the diagnostic images in the EMR. 09/17/23 12:16 CT Abd/Pelvis W/Contrast 69500 Stat Microbiology: Microbiology 09/13/23 05:00 Back Gram Stain - Final 09/13/23 05:00 Back Wound Culture - Preliminary Staphylococcus aureus 09/13/23 16:06 Blood,Venous Blood Culture - Preliminary No growth after 4 days, cultures held 5 days. 09/13/23 15:55 Blood,Venous Blood Culture - Preliminary No growth after 4 days, cultures held 5 days. Medications and Comanagement: Medications reviewed separately. Entered by: Troy Garber MD on 09/17/23 1714 Report Signed by: Troy Garber MD on 09/17/23 173 <<Signature on File>> <Electronically signed by Troy Garber MD> Report Signed by: on [facility] Work Phone: 1(958) 823-479210-25-2023 Progress note Author Freddy Ismael [facility] September 17, 2023 4:51pm Note Date/Time September 17, 2023 4 :51pm [facility] Medical Records Patient: GEOVANNY MEJÍA. : 1970 [place] [address] Location: [phone] Unit #: [id number] Interventional Radiology Note Freddy Guevara MD Service Dt/Tm: 09/17/231648 Interventional Radiology Note IR Note: New left retroperitoneal drain placed (12 FR) and removal of existing 8 fr tube (inadvertently retracted since placement). good position on CT and documented aspiration of fluid. Should this tube fail to adequately drain fluid, surgical intervention may be necessary (given persistent collection, reaccumulation) for definitive management. Entered by: Freddy Guevara on 09/17/231648 Report Signed by: Freddy Guevara MD on 09/17/231650 <<Signature on File>> <Electronically signed by Freddy Guevara MD> Report Signed by: on [facility] Work Phone: 1(717) 310-677710-25-2023 Progress note Author Freddy Guevara [facility] September 17, 2023 4:51pm Note Date/Time September 17, 2023 4 :51pm [facility] Medical Records Patient: GEOVANNY MEJÍAefontphilip Napiere. : 1970 [place] [address] Location: [phone] Unit #: [id number] Interventional Radiology Note Freddy Guevara MD Service Dt/Tm: 09/17/231648 Interventional Radiology Note IR Note: New left retroperitoneal drain placed (12 FR) and removal of existing 8 fr tube (inadvertently retracted since placement). good position on CT and documented aspiration of fluid. Should this tube fail to adequately drain fluid, surgical intervention may be necessary (given persistent collection, reaccumulation) for definitive management. Entered by: Freddy Guevara on 09/17/231648 Report Signed by: Freddy Guevara MD on 09/17/231650 <<Signature on File>> <Electronically signed by Freddy Guevara MD> Report Signed by: on [facility] Work Phone: 1(100) 933-230210-25-2023 [facility] Medical Records Patient: GEOVANNY MEJÍA [address] : 1970 [place], [place] [address] Location: [phone] Unit #: [id number] IR Pre Procedure Note Freddy Guevara MD Service Dt/Tm: 09/17/231647 Indication for Procedure: Please refer to the reason for exam on the order in the EMR. History of Present Illness: GEOVANNY MEJÍA is a 53 year old F being seen for INTRA ABDOMINAL ABCESS Medical History: Medical History (Updated 09/14/23 @ 15:38 by Troy Garber MD) HTN (hypertension) Surgical History (Updated 09/13/23 @ 02:34 by Chante Martínez CRNA) Intra-abdominal abscess DRAINED Social History: Alcohol Amount: Socially/Occasionally Street Drugs: None Smoking Status: Former smoker Type of Tobacco: Cigarettes Smoking Amount: < 1 pack per day Smoking Stop Date: 09/05/23 Family History: (Updated 09/08/23 @ 14:51 by Bryant Epperson APRN, FLOOR LAYER HELPER) Denies family history of No pertinent family history Allergies/Adverse Reactions No Known Drug Allergies Allergy (Verified 09/08/23 09:58) Home Medications No Home Meds 09/09/23 [Confirmed 09/09/23] Plan/Planned Procedure: Procedure Abcess Drainage Other Procedure abdominal drain insertion Physical Exam Vital Signs: Last Vital Signs Temp Pulse Resp BP Pulse Ox O2 Flow Rate 98.5 F 88 18 115/65 100 2 09/17/23 14:09 09/17/23 16:41 09/17/23 16:41 09/17/23 16:41 09/17/23 16:41 09/17/23 16:41 Right Lobe(s) Lung Sounds: Anterior, Posterior and Diminished Throughout Left Lobe(s) Lung Sounds: Anterior, Posterior and Diminished Throughout Cough Description: Occasional Procedure HANDP dictated by Medical Staff Member History Reviewed, Patient Examined: No changes Procedure Planned Medication: Lidocaine Pre-Procedure: Pre-Procedure Diagnostic studies complete and results available, Previous Sedation/Anesthesia experiences assessed, Patient is an appropriate candidate to undergo the planned procedure, Discussed Procedure/Sedation risks, benefits, and expectations, Patient immediately reassessed prior to procedure, Airway assessed, able to hyper extend neck, and No obvious loose teeth or visible obstruction Medications Reviewed: Medications Reviewed and No additions/deletions/interactions of anticipated meds in procedure Entered by: Freddy Guevara on 09/17/231647 Report Signed by: Freddy Guevara MD on 09/17/231647 < > Report Signed by: [facility]10-25-2023 Progress note Author Dina Abebe [facility] September 17, 2023 4:07pm Note Date/Time September 17, 2023 8 :14am [facility] Case Management Patient: GEOVANNY MEJÍA. : 1970 [place], [place] [address] Location: [phone] Unit #: [id number] Case Management Daily Note Dina Abebe Service Date: 09/17/23 Case Mgmt Daily Note - Plan of Care [employer] Agrees with Attending and Consult Plan: Yes - COVID-19 Was Position Statement Letter Delivered?: Yes - Care Coordination Communication Care Coordination Communication: Spoke with patient's family via phone - Hospital Stay Days Day 1 Comment: 09/08 Met with patient in the room. Patient is from [place]. She is up here to visit her sister. Patient reporting she is normally independent. Doesnot have a PCP. Patient would like to use [facility] OP Pharm for meds. Planning to have her cousin pick her up at d/c. Contact is her cousin Ursula. Denies having LW/dPOA. [employer]: Evelyne Pena, RN Day 2 Comment: 09/09 Met with patient in the room. Patient asking to get up and move around. PT/OT to [facility]. S/p L ABD drain placement. Patient agreeable to [facility] for drain mgmt if needed. Reporting she will be going to [facility] at d/c to staywith her cousin Ursula. CM spoke with patients cousin Ursula via telephone who reports she is ok with [facility] coming to her home if patient would go there at d/c. Ursula reporting patient was homeless in [place] and recently move to [place] with faith [employer]. [employer]: Evelyne Pena, RN Day 3 Comment: 09/10 D/c needs pending medical course. Jr present. 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 PT/OT. ID c/s. Therapy recs for IPR vs OP PT. Will follow to assist with d/c needs. [employer]: Evelyne Pena, RN Day 4 Comment: 09/11 Met with patient in the room who is planning to d/c to her [facility] in [place], [place]. Patient is agreeable to [facility]. CM spoke with Ursula who is agreeable for patient to come there at d/c. Referral sent to [facility].Await approval. GLOBAL CHIEF CREATIVE OFFICER. ABD drain. NPO. ID c/s. PT/OT. [employer]: Evelyne Pena, RN Day 5 Comment: 09/12 Met with patient in the room to discuss d/c plan. Patient unable to move b/l LE. No sensation to RLE. Does have sesation to LLE. PT/OT recommending SNF, patient agreeable. She would like to go somewhere near her cousin Ursula in [place], [place]. CM [facility] [place]. c/s for SNF placement and [place] assist with [place]. Patient will need a precert. 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 If patient would improve with mobility, she has been accepted to [facility]. CM spoke with Ursula via telephone to update. [employer]: Evelyne Pena, RN Day 6 Comment: 09/15- POD 2. CM spoke with patient at bedside. VSS. WBC 19.9. PT/OT rec SNF. Pt verbalized agreeable for SNF and would like [facility]. SW c/s & reported that [facility] is not in network with pt insurance. MANOLO spoke w/ pt & Lamin is now reviewing patient. Pt is awaiting the start of [place] [employer] application with [facility] as current dual insurance is out of state. Pt willalso require a precert when medically ready. CM following. [employer]: Dina Abebe Day 8 Comment: 09/15- POD 2. CM spoke with patient at bedside. VSS. WBC 19.9. PT/OT rec SNF. Pt verbalized agreeable for SNF and would like [facility]. SW c/s. Pt will require precert when medically ready. CM following. Day 9 Comment: 09/16- Noted plan changed to dc to [facility] pending bed & accepting physician. CM contacted [facility] this AM and spoke with Ashish, who explained that they will NOT be able to accept the patient d/t her insurance not in network. CM updated the attending. Attending noted plans to attempt transfer to [facility] &if denied, to attempt transfer to [facility], per pt preferance. Transfer packet completed. CM following. @12:21- Nurse reported to CM that Dr Holt has declined to take pt, per [facility], & that a message was relayed to the attending. @14:30- [facility] has assisted pt with completion of [place] GWEN vilma. CM faxing documentation to [facility] & calling now to verify if they are able to accept pt with that. If unable, CM to fax & verify w/ [facility]. If neither hospital is able to accept, attending plans to reach out to [facility]. @15:00- CM spoke with Shelby at [facility]. Shelby reported that she will communicate with her team & call CM back with a determination. CM to update attending physician. @15:45- CM received cb from Roseline at [facility]. Roseline stated that their neurosurgeon wants Deonte to call them to consider if they would be willingto take the patient, despite [facility] pending status and out of network insurance. CMupdated the attending. [employer]: Dina Abebe Day 10 Comment: 09/17- CM received perfect serve notification from pt's nurse after CM left for the day yesterday at 16:[address] Clemons, the pt has been accepted to [facility] and that the transfer center will be contacting [facility] when a bed is available. CM spoke w/ pt at bedside this AM & provided updates. Pt requestedCM to contact her cousin, Ursula Echevarria ([phone]), with any updates. CM called Ursula this AM; no answer & no vm set up.t. @10:27- Ursula called LENY back & updates were provided. [employer]: Dina Abebe - Home Health/IV Infusion/Wound Vac Home Health Referral Indicated: Yes Home Health List Provided: Yes Indication for Home Health: Wound Care, Other Patient's Response: Yes Home Health Agencies: [facility] Patient given the option to view quality scores of facility?: Yes - Jail Facility SNF List Provided: Yes Jail Facilities: [facility] Social Work Consult initiated for SNF: Yes - Transportation Mode of Transportation: Ambulance - Respiratory Equipment Does the patient have a nebulizer at home?: No - * L * Length of Stay LOS (Including day of Admission and Discharge): 10 LOS Score: 5 - * C * Comorbidities Select All Conditions that Apply: No Comorbidity Condition Comorbidities Total Score: 0 - * E * Emergency Department Visits # of ER visits,6mos prior to admit,excl this admits ER visit: 0 Enter this number or 4 (whichever is smaller): 0 - LACE SCORE LACE Score: 5 - ANTICIPATED DISCHARGE Anticipated Discharge Date: 09/17/23 Is a ARCHIBALD Form Required?: No Entered by: Dina Abebe on 09/17/23 0812 Report Signed by: Dina Abebe on 09/17/23 1607 <<Signature on File>> <Electronically signed by Dina Abebe> Co-Signed by: on [facility] Work Phone: 1(665) 660-276310-25-2023 Progress note Author Dina Abebe [facility] September 17, 2023 4:07pm Note Date/Time September 17, 2023 8 :14am [facility] Case Management Patient: GEOVANNY MEJÍA[address] : 1970 [place], [place] [address] Location: [phone] Unit #: [id number] Case Management Daily Note Dina Abebe Service Date: 09/17/23 Case Mgmt Daily Note - Plan of Care [employer] Agrees with Attending and Consult Plan: Yes - COVID-19 Was Position Statement Letter Delivered?: Yes - Care Coordination Communication Care Coordination Communication: Spoke with patient's family via phone - Hospital Stay Days Day 1 Comment: 10/16 Met with patient in the room. Patient is from [place]. She is up here to visit her sister. Patient reporting she is normally independent. Doesnot have a PCP. Patient would like to use [facility] OP Pharm for meds. Planning to have her cousin pick her up at d/c. Contact is her cousin Ursula. Denies having LW/dPOA. [employer]: Evelyne Pena, RN Day 2 Comment: 09/09 Met with patient in the room. Patient asking to get up and move around. PT/OT to [facility]. S/p L ABD drain placement. Patient agreeable to [facility] for drain mgmt if needed. Reporting she will be going to [facility] at d/c to staywith her cousin Ursula. CM spoke with patients cousin Ursula via telephone who reports she is ok with [facility] coming to her home if patient would go there at d/c. Ursula reporting patient was homeless in [place] and recently move to [place] with faith Amaya. [employer]: Evelyne Pena, RN Day 3 Comment: 09/10 D/c needs pending medical course. Jr present. 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 PT/OT. ID c/s. Therapy recs for IPR vs OP PT. Will follow to assist with d/c needs. [employer]: Evelyne Pena, RN Day 4 Comment: 09/11 Met with patient in the room who is planning to d/c to her [facility] in [place], [place]. Patient is agreeable to [facility]. LEYN spoke with Ursula who is agreeable for patient to come there at d/c. Referral sent to [facility].Await approval. GLOBAL CHIEF CREATIVE OFFICER. ABD drain. NPO. ID c/s. PT/OT. [employer]: Evelyne Pena, RN Day 5 Comment: 09/12 Met with patient in the room to discuss d/c plan. Patient unable to move b/l LE. No sensation to RLE. Does have sesation to LLE. PT/OT recommending SNF, patient agreeable. She would like to go somewhere near her cousin Ursula in [place], [place]. CM assisted patient with changing her address withher [facility] insurance to an [place] address. c/s for SNF placement and [facility] assist with [place]. Patient will need a precert. 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 If patient would improve with mobility, she has been accepted to [facility]. CM spoke with Ursula via telephone to update. [employer]: Evelyne Pena, RN Day 6 Comment: 09/15- POD 2. CM spoke with patient at bedside. VSS. WBC 19.9. PT/OT rec SNF. Pt verbalized agreeable for SNF and would like [facility]. c/s & reported that [facility] is not in network with pt insurance. spoke w/ pt & Lamin is now reviewing patient. Pt is awaiting the start of [place] [facility] application with [facility] as current dual insurance is out of state. Pt willalso require a precert when medically ready. CM following. [employer]: Dina Abebe Day 8 Comment: 09/15- POD 2. CM spoke with patient at bedside. VSS. WBC 19.9. PT/OT rec SNF. Pt verbalized agreeable for SNF and would like [facility]. c/s. Pt will require precert when medically ready. CM following. Day 9 Comment: 09/16- Noted plan changed to dc to [facility] pending bed & accepting physician. CM contacted [facility] this AM and spoke with Ashish, who explained that they will NOT be able to accept the patient d/t her insurance not in network. CM updated the attending. Attending noted plans to attempt transfer to [facility] &if denied, to attempt transfer to [facility], per pt preferance. Transfer packet completed. CM following. @12:21- Nurse reported to CM that Dr Holt has declined to take pt, per [facility], & that a message was relayed to the attending. @14:30- [facility] has assisted pt with completion of [place] vilma. CM faxing documentation to [facility] & calling now to verify if they are able to accept pt with that. If unable, CM to fax & verify w/ [facility]. If neither hospital is able to accept, attending plans to reach out to [facility]. @15:00- CM spoke with Shelby at [facility]. Shelby reported that she will communicate with her team & call CM back with a determination. CM to update attending physician. @15:45- CM received cb from Roseline at [facility]. Roseline stated that their neurosurgeon wants Deonte to call them to consider if they would be willingto take the patient, despite GWEN pending status and out of network insurance. CMupdated the attending. [employer]: Dina Abebe Day 10 Comment: 09/17- CM received perfect serve notification from pt's nurse after CM left for the day yesterday at 16:[address] Clemons, the pt has been accepted to [facility] and that the transfer center will be contacting [facility] when a bed is available. CM spoke w/ pt at bedside this AM & provided updates. Pt requestedCM to contact her cousin, Ursula Echevarria ([phone]), with any updates. CM called Ursula this AM; no answer & no vm set up.t. @10:27- Ursula called CM back & updates were provided. [employer]: Dina Abebe - Home Health/IV Infusion/Wound Vac Home Health Referral Indicated: Yes Home Health List Provided: Yes Indication for Home Health: Wound Care, Other Patient's Response: Yes Home Health Agencies: [facility] Patient given the option to view quality scores of facility?: Yes - Jail Facility SNF List Provided: Yes Jail Facilities: [facility] Social Work Consult initiated for SNF: Yes - Transportation Mode of Transportation: Ambulance - Respiratory Equipment Does the patient have a nebulizer at home?: No - * L * Length of Stay LOS (Including day of Admission and Discharge): 10 LOS Score: 5 - * C * Comorbidities Select All Conditions that Apply: No Comorbidity Condition Comorbidities Total Score: 0 - * E * Emergency Department Visits # of ER visits,6mos prior to admit,excl this admits ER visit: 0 Enter this number or 4 (whichever is smaller): 0 - LACE SCORE LACE Score: 5 - ANTICIPATED DISCHARGE Anticipated Discharge Date: 09/17/23 Is a ARCHIBALD Form Required?: No Entered by: Dina Abebe on 09/17/23 0812 Report Signed by: Dina Abebe on 09/17/23 1607 <<Signature on File>> <Electronically signed by Dina Abebe> Co-Signed by: on [facility] Work Phone: 1(494) 736-972110-25-2023 [facility]23 Progress note Author Troy Garber [facility] September 17, 2023 1:37pm Note Date/Time September 17, 2023 8 :55am [facility] Medical Records Patient: GEOVANNY MEJÍA. : 1970 [place], [place] [address] Location: [address] [place] [address] Unit #: [id number] Progress Note - Hospitalist Troy Garber MD Service Dt/Tm: 09/17/23 0855 Assessment/Plan Assessment/Plan (1) Abscess in epidural space of thoracic spine: Status: Acute Code(s): G06.1 - Intraspinal abscess and granuloma Plan: The start MRI that was scheduled around 7:55 in the morning with, was ordered after 7 PM yesterday. Neurosurgery consult had reviewed the MRI results and recommended transfer to a tertiary center. A call was made by the night provider Dr. Elena, to the [facility]. However this morning, we have been told that the patient's insurance is not part of the network, and therefore they cannot accept the patient in transfer to their facility. As indicated above, I discussed with patient at the bedside with her sister on the phone, with the direction to call first the [facility] for the transfer, and if that does not materialize, then a call will be placed to the [facility]. We will continue with IV antibiotic while the patient remains in-house with follow- up by ID consult, and also follow-up by neurosurgery consult. (2) Staphylococcus aureus septicemia: Status: Acute Code(s): A41.01 - Sepsis due to Methicillin susceptible Staphylococcus aureus Plan: Infectious disease consult monitoring and managing antibiotics for the septicemia. (3) Intra-abdominal abscess: Status: Acute Code(s): K65.1 - Peritoneal abscess Plan: Patient has been complaining of pain and distention of the abdomen, drainage is still in place, she has been scheduled for an urgent CT abdomen and pelvis with contrast to assess for the abscess, and to rule out any other etiologies that iscompounding her presentation. We will continue with empiric IV antibiotic awaiting the CT scan report. (4) HTN (hypertension): Status: Acute Qualifiers: Hypertension type: primary hypertension Qualified Code(s): I10 - Essential (primary) hypertension Code(s): I10 - Essential (primary) hypertension Plan: Continue with home regimen of antihypertensive, however will monitor closely because of the infection for hypotensive episodes. (5) Asthma: Status: Acute Qualifiers: Asthma complication type: uncomplicated Asthma persistence: intermittent Asthma severity: mild Qualified Code(s): J45.20 - Mild intermittent asthma, uncomplicated Code(s): J45.909 - Unspecified asthma, uncomplicated Plan: Home medication regimen as resumed, will continue with supportive management. (6) Normocytic normochromic anemia: Status: Acute Code(s): D64.9 - Anemia, unspecified Plan: Unclear etiology, however in the setting of infection, would want the infection to be brought under control prior to replenishing the iron stores. We will be obtaining anemia work-up. (7) Hyponatremia: Status: Acute Code(s): E87.1 - Hypo-osmolality and hyponatremia Plan: Unclear duration, stable and asymptomatic. Patient will need further work-up. This could be hypovolemia from dehydration. (8) Severe protein-calorie malnutrition: Status: Acute Code(s): E43 - Unspecified severe protein-calorie malnutrition Plan: Patient has albumin of 2.7 and prealbumin of 5 signaling severe protein calorie malnutrition. Patient will therefore need dietary consult to assist in the management since she needs proteins for healing process. (9) Hypocalcemia: Status: Acute Code(s): E83.51 - Hypocalcemia Plan: Patient does have hypocalcemia and previous ionized calcium was low. Patient isbeing started on vitamin D 5000 international units daily by mouth, and also Os-Riley 500, 1 tablet daily. We will continue to monitor serum calcium closely. (10) Electrolyte imbalance: Status: Acute Code(s): E87.8 - Other disorders of electrolyte and fluid balance, not elsewhere classified Plan: Including but not limited to hypocalcemia, hypokalemia and hypophosphatemia. Electrolyte imbalance is being corrected per protocol and will be repeating labsthis p.m. and tomorrow morning. Plan Currently awaiting bed availability for transfer to [facility] for general surgery and neurosurgery evaluation with further recommendations. We will be following up CT abdomen and pelvis to assess for any further etiologies of worsening abdominal pain and distention. Continue with empiric IV antibiotic as outlined,will optimize pain control after the CT scan. Current Code Status & Diet: 09/08/23 13:19 Code Status Routine Resuscitation Status: Full Code Code Status Order Placed: Code Status Ordered 09/08/23 at 1321 09/13/23 08:00 Regular Diet Texture: Regular Fluid Restrictions?: No Consult Biomedical Photographer for Oral Supplements/Nourishments?: No Oral Supplement 1: Ensure Supplement 1 Frequency: Once/day Oral Supplement 2: Magic Cup Supplement 2 Frequency: Once/day Discussed Patient's Care With: Nurse, Case Management and Physician Subjective Subjective: Patient seen and examined this morning, discussed case with RN. Patient had been complaining of abdominal pain and distention. She denies any fever or chills. She remains in-house pending bed availability for transfer to the [facility] for further evaluation and management by general surgery and neurosurgery consults. Patient Status & Estimated DC Date Patient Registration Status: Inpatient Objective Constitutional: Last Vital Signs Temp Pulse Resp BP Pulse Ox O2 Flow Rate 98.6 F 92 20 109/55 L 93 2.0 09/16/23 21:03 09/17/23 05:35 09/17/23 05:35 09/17/23 05:35 09/17/23 08:33 09/14/23 09:00 Intake and Output 09/16/23 09/17/23 09/18/23 06:59 06:59 06:59 Intake Total 2745.79 2373.61 Output Total 2150 3400 Balance 595.79 -1026.39 Admitting (IV Pump) Weight 83 kg Actual Weight (Kg) 83 kg General Appearance: Alert, Resting Comfortably and Cooperative; No Acute Distress Eyes: PERRLA and EOMI ENT: Normal Inspection, Pharynx Normal and Oral Mucosa Moist; No Pharyngeal Erythema Skin: Color Normal and Warm, Dry; No Rash, Diaphoresis or Pallor Cardiovascular: Irregular Rhythm; No Click, Rub, Gallop or Murmur Lungs: Clear to Auscultate Bila and Good Air Entry; No Rales or Expiratory Wheezes Abdomen: Firm, Tender to palpation (Diffuse tenderness), Hypoactive BS and Other(Abscess drain in place draining purulent fluid); No Rebound tender to palpat. Extremities: Activity as expected and Warm and Dry; No Cyanosis, Swelling or Edema Neurologic: A & O x3 and Other (Bilateral paraparesis, with intact sensation of the left lower extremity, however no sensation of the right lower extremity up to the upper thigh region.) Psychological: Mood & Affect Normal Data Labs: 09/17/23 04:48 Phosphorus 4.5 Magnesium 2.2 09/17/23 04:48 WBC 13.0 H RBC 2.77 L Hgb 8.0 L Hct 23.9 L MCV 86.1 MCH 29.0 MCHC 33.7 RDW 16.1 H Plt Count 635 H 09/17/23 04:48 Sodium 129 L Potassium 4.2 Chloride 96 L Carbon Dioxide 26 Anion Gap 7 BUN 9 Creatinine 0.47 L Calcium 8.10 L The last 24 hours of labs have been reviewed. Imaging: I have reviewed the diagnostic images in the EMR. Microbiology: Microbiology 09/13/23 16:06 Blood,Venous Blood Culture - Preliminary No growth after 4 days, cultures held 5 days. 09/13/23 15:55 Blood,Venous Blood Culture - Preliminary No growth after 4 days, cultures held 5 days. 09/11/23 13:40 Blood,Venous - Final 09/11/23 13:40 Blood,Venous Blood Culture - Final Staphylococcus aureus 09/11/23 13:35 Blood,Venous Blood Culture - Final Staphylococcus aureus 09/13/23 05:00 Back Gram Stain - Final 09/13/23 05:00 Back Wound Culture - Preliminary Staphylococcus aureus Medications and Comanagement: Medications reviewed separately. Entered by: Troy Garber MD on 09/17/23854 Report Signed by: Troy Garber MD on 09/17/23 1333 <<Signature on File>> <Electronically signed by Troy Garber MD> Report Signed by: on [facility] Work Phone: 1(406) 681-374710-25-2023 Progress note Author Troy Garber [facility] September 17, 2023 1:37pm Note Date/Time September 17, 2023 8 :55am [facility] Medical Records Patient: GEOVANNY MEJÍA. : 1970 [place], [place] [address] Location: [address] [place] [address] Unit #: [id number] Progress Note - Hospitalist Troy Garber MD Service Dt/Tm: 09/17/23854 Assessment/Plan Assessment/Plan (1) Abscess in epidural space of thoracic spine: Status: Acute Code(s): G06.1 - Intraspinal abscess and granuloma Plan: The start MRI that was scheduled around 7:55 in the morning with, was ordered after 7 PM yesterday. Neurosurgery consult had reviewed the MRI results and recommended transfer to a tertiary center. A call was made by the night provider Dr. Elena, to the [facility]. However this morning, we have been told that the patient's insurance is not part of the network, and therefore they cannot accept the patient in transfer to their facility. As indicated above, I discussed with patient at the bedside with her sister on the phone, with the direction to call first the [facility] for the transfer, and if that does not materialize, then a call will be placed to the [facility]. We will continue with IV antibiotic while the patient remains in-house with follow- up by ID consult, and also follow-up by neurosurgery consult. (2) Staphylococcus aureus septicemia: Status: Acute Code(s): A41.01 - Sepsis due to Methicillin susceptible Staphylococcus aureus Plan: Infectious disease consult monitoring and managing antibiotics for the septicemia. (3) Intra-abdominal abscess: Status: Acute Code(s): K65.1 - Peritoneal abscess Plan: Patient has been complaining of pain and distention of the abdomen, drainage is still in place, she has been scheduled for an urgent CT abdomen and pelvis with contrast to assess for the abscess, and to rule out any other etiologies that iscompounding her presentation. We will continue with empiric IV antibiotic awaiting the CT scan report. (4) HTN (hypertension): Status: Acute Qualifiers: Hypertension type: primary hypertension Qualified Code(s): I10 - Essential (primary) hypertension Code(s): I10 - Essential (primary) hypertension Plan: Continue with home regimen of antihypertensive, however will monitor closely because of the infection for hypotensive episodes. (5) Asthma: Status: Acute Qualifiers: Asthma complication type: uncomplicated Asthma persistence: intermittent Asthma severity: mild Qualified Code(s): J45.20 - Mild intermittent asthma, uncomplicated Code(s): J45.909 - Unspecified asthma, uncomplicated Plan: Home medication regimen as resumed, will continue with supportive management. (6) Normocytic normochromic anemia: Status: Acute Code(s): D64.9 - Anemia, unspecified Plan: Unclear etiology, however in the setting of infection, would want the infection to be brought under control prior to replenishing the iron stores. We will be obtaining anemia work-up. (7) Hyponatremia: Status: Acute Code(s): E87.1 - Hypo-osmolality and hyponatremia Plan: Unclear duration, stable and asymptomatic. Patient will need further work-up. This could be hypovolemia from dehydration. (8) Severe protein-calorie malnutrition: Status: Acute Code(s): E43 - Unspecified severe protein-calorie malnutrition Plan: Patient has albumin of 2.7 and prealbumin of 5 signaling severe protein calorie malnutrition. Patient will therefore need dietary consult to assist in the management since she needs proteins for healing process. (9) Hypocalcemia: Status: Acute Code(s): E83.51 - Hypocalcemia Plan: Patient does have hypocalcemia and previous ionized calcium was low. Patient isbeing started on vitamin D 5000 international units daily by mouth, and also Os-Riley 500, 1 tablet daily. We will continue to monitor serum calcium closely. (10) Electrolyte imbalance: Status: Acute Code(s): E87.8 - Other disorders of electrolyte and fluid balance, not elsewhere classified Plan: Including but not limited to hypocalcemia, hypokalemia and hypophosphatemia. Electrolyte imbalance is being corrected per protocol and will be repeating labsthis p.m. and tomorrow morning. Plan Currently awaiting bed availability for transfer to [facility] for general surgery and neurosurgery evaluation with further recommendations. We will be following up CT abdomen and pelvis to assess for any further etiologies of worsening abdominal pain and distention. Continue with empiric IV antibiotic as outlined,will optimize pain control after the CT scan. Current Code Status & Diet: 09/08/23 13:19 Code Status Routine Resuscitation Status: Full Code Code Status Order Placed: Code Status Ordered 09/08/23 at 1321 09/13/23 08:00 Regular Diet Texture: Regular Fluid Restrictions?: No Consult Biomedical Photographer for Oral Supplements/Nourishments?: No Oral Supplement 1: Ensure Supplement 1 Frequency: Once/day Oral Supplement 2: Magic Cup Supplement 2 Frequency: Once/day Discussed Patient's Care With: Nurse, Case Management and Physician Subjective Subjective: Patient seen and examined this morning, discussed case with RN. Patient had been complaining of abdominal pain and distention. She denies any fever or chills. She remains in-house pending bed availability for transfer to the [facility] for further evaluation and management by general surgery and neurosurgery consults. Patient Status & Estimated DC Date Patient Registration Status: Inpatient Objective Constitutional: Last Vital Signs Temp Pulse Resp BP Pulse Ox O2 Flow Rate 98.6 F 92 20 109/55 L 93 2.0 09/16/23 21:03 09/17/23 05:35 09/17/23 05:35 09/17/23 05:35 09/17/23 08:33 09/14/23 09:00 Intake and Output 09/16/23 09/17/23 09/18/23 06:59 06:59 06:59 Intake Total 2745.79 2373.61 Output Total 2150 3400 Balance 595.79 -1026.39 Admitting (IV Pump) Weight 83 kg Actual Weight (Kg) 83 kg General Appearance: Alert, Resting Comfortably and Cooperative; No Acute Distress Eyes: PERRLA and EOMI ENT: Normal Inspection, Pharynx Normal and Oral Mucosa Moist; No Pharyngeal Erythema Skin: Color Normal and Warm, Dry; No Rash, Diaphoresis or Pallor Cardiovascular: Irregular Rhythm; No Click, Rub, Gallop or Murmur Lungs: Clear to Auscultate Bila and Good Air Entry; No Rales or Expiratory Wheezes Abdomen: Firm, Tender to palpation (Diffuse tenderness), Hypoactive BS and Other(Abscess drain in place draining purulent fluid); No Rebound tender to palpat. Extremities: Activity as expected and Warm and Dry; No Cyanosis, Swelling or Edema Neurologic: A & O x3 and Other (Bilateral paraparesis, with intact sensation of the left lower extremity, however no sensation of the right lower extremity up to the upper thigh region.) Psychological: Mood & Affect Normal Data Labs: 09/17/23 04:48 Phosphorus 4.5 Magnesium 2.2 09/17/23 04:48 WBC 13.0 H RBC 2.77 L Hgb 8.0 L Hct 23.9 L MCV 86.1 MCH 29.0 MCHC 33.7 RDW 16.1 H Plt Count 635 H 09/17/23 04:48 Sodium 129 L Potassium 4.2 Chloride 96 L Carbon Dioxide 26 Anion Gap 7 BUN 9 Creatinine 0.47 L Calcium 8.10 L The last 24 hours of labs have been reviewed. Imaging: I have reviewed the diagnostic images in the EMR. Microbiology: Microbiology 09/13/23 16:06 Blood,Venous Blood Culture - Preliminary No growth after 4 days, cultures held 5 days. 09/13/23 15:55 Blood,Venous Blood Culture - Preliminary No growth after 4 days, cultures held 5 days. 09/11/23 13:40 Blood,Venous - Final 09/11/23 13:40 Blood,Venous Blood Culture - Final Staphylococcus aureus 09/11/23 13:35 Blood,Venous Blood Culture - Final Staphylococcus aureus 09/13/23 05:00 Back Gram Stain - Final 09/13/23 05:00 Back Wound Culture - Preliminary Staphylococcus aureus Medications and Comanagement: Medications reviewed separately. Entered by: Troy Garber MD on 09/17/23 0800 Report Signed by: Troy Garber MD on 09/17/23 1337 <<Signature on File>> <Electronically signed by Troy Garber MD> Report Signed by: on [facility] Work Phone: 1(504) 273-644210-24-2023 Progress note Author Troy Garber [facility] September 16, 2023 4:53pm Note Date/Time September 16, 2023 4 :53pm [facility] Medical Records Patient: GEOVANNY MEJÍA [address] : 1970 [place], [place] [address] Location: [address] [place] [address] Unit #: [id number] Status Note/Update Troy Garber MD Service Dt/Tm: 09/16/23 4951 Note: GEOVANNY MEJÍA is a 53 yr old F who was admitted on 09/08/23 for INTRA ABDOMINAL ABCESS. Patient's [place] Medicaid has been approved and her insurance status was updated. This was discussed with the [facility] transfer center by case management. The transfer center had requested Dr. Clemons talk to their neurosurgeon on-call, and Dr. Clemons was notified. Patient has finally been accepted to the [facility] and will be transferred out there whenever bed becomes available. I did discuss with Dr. Clemons. Patient continued to remain on current management pending the transfer. Entered by: Troy Garber MD on 09/16/231650 Report Signed by: Troy Garber MD on 09/16/231652 <<Signature on File>> <Electronically signed by Troy Garber MD> Report Signed by: on [facility] Work Phone: 1(898) 719-907710-24-2023 Progress note Author Troy Garber [facility] September 16, 2023 4:53pm Note Date/Time September 16, 2023 4 :53pm [facility] Medical Records Patient: GEOVANNY MEJÍA [address] : 1970 [place], [place] [address] Location: [phone] Unit #: [id number] Status Note/Update Troy Garber MD Service Dt/Tm: 09/16/231650 Note: GEOVANNY MEJÍA is a 53 yr old F who was admitted on 09/08/23 for INTRA ABDOMINAL ABCESS. Patient's [place] Medicaid has been approved and her insurance status was updated. This was discussed with the [facility] transfer center by case management. The transfer center had requested Dr. Clemons talk to their neurosurgeon on-call, and Dr. Clemons was notified. Patient has finally been accepted to the [facility] and will be transferred out there whenever bed becomes available. I did discuss with Dr. Clemons. Patient continued to remain on current management pending the transfer. Entered by: Troy Garber MD on 09/16/231650 Report Signed by: Troy Garber MD on 09/16/231652 <<Signature on File>> <Electronically signed by Troy Garber MD> Report Signed by: on [facility] Work Phone: 1(247) 251-708410-24-2023 Progress note Author Dina Abebe [facility] September 16, 2023 4:16pm Note Date/Time September 16, 2023 8 :26am [facility] Case Management Patient: GEOVANNY MEJÍA [address] : 1970 [place], [place] [address] Location: [phone] Unit #: [id number] Case Management Daily Note Dina Abebe Service Date: 09/16/23 Case Mgmt Daily Note - Plan of Care Servicer Coin Machines Agrees with Attending and Consult Plan: Yes - COVID-19 Was Position Statement Letter Delivered?: Yes - Care Coordination Communication Care Coordination Communication: Spoke with patient's family via phone - Hospital Stay Days Day 1 Comment: 09/08 Met with patient in the room. Patient is from [place]. She is up here to visit her sister. Patient reporting she is normally independent. Doesnot have a PCP. Patient would like to use [facility] OP Pharm for meds. Planning to have her cousin pick her up at d/c. Contact is her cousin Ursula. Denies having LW/dPOA. [employer]: Evelyne Pena, RN Day 2 Comment: 09/09 Met with patient in the room. Patient asking to get up and move around. PT/OT to al. S/p L ABD drain placement. Patient agreeable to [facility] for drain mgmt if needed. Reporting she will be going to [facility] at d/c to staywith her cousin Ursula. CM spoke with patients cousin Ursula via telephone who reports she is ok with [facility] coming to her home if patient would go there at d/c. Ursula reporting patient was homeless in [place] and recently move to [place] with faith [employer]. [employer]: Evelyne Pena, RN Day 3 Comment: 09/10 D/c needs pending medical course. Jr present. 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 PT/OT. ID c/s. Therapy recs for IPR vs OP PT. Will follow to assist with d/c needs. [employer]: Evelyne Pena, RN Day 4 Comment: 09/11 Met with patient in the room who is planning to d/c to her [facility] in [place], [place]. Patient is agreeable to [facility]. LENY spoke with Ursula who is agreeable for patient to come there at d/c. Referral sent to [facility].Await approval. GLOBAL CHIEF CREATIVE OFFICER. ABD drain. NPO. ID c/s. PT/OT. Servicer Coin Machines: Evelyne Pena, RN Day 5 Comment: 09/12 Met with patient in the room to discuss d/c plan. Patient unable to move b/l LE. No sensation to RLE. Does have sesation to LLE. PT/OT recommending SNF, patient agreeable. She would like to go somewhere near her cousin Ursula in [place], [place]. CM [facility] [place]. SW c/s for SNF placement and GWEN assist with [place]. Patient will need a precert. 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 If patient would improve with mobility, she has been accepted to [facility]. CM spoke with Ursula via telephone to update. Servicer Coin Machines: Evelyne Pena, RN Day 6 Comment: 09/15- POD 2. CM spoke with patient at bedside. VSS. WBC 19.9. PT/OT rec SNF. Pt verbalized agreeable for SNF and would like [facility]. SW c/s & reported that [facility] is not in network with pt insurance. MANOLO spoke w/ pt & Lamin is now reviewing patient. Pt is awaiting the start of [place] GWEN application with [facility] as current dual insurance is out of state. Pt willalso require a precert when medically ready. CM following. Servicer Coin Machines: Dina Abebe Day 8 Comment: 09/15- POD 2. CM spoke with patient at bedside. VSS. WBC 19.9. PT/OT rec SNF. Pt verbalized agreeable for SNF and would like [facility]. MANOLO c/s. Pt will require precert when medically ready. CM following. Day 9 Comment: 09/16- Noted plan changed to dc to [facility] pending bed & accepting physician. CM contacted [facility] this AM and spoke with Ashish, who explained that they will NOT be able to accept the patient d/t her insurance not in network. CM updated the attending. Attending noted plans to attempt transfer to [facility] &if denied, to attempt transfer to [facility], per pt preferance. Transfer packet completed. CM following. @12:21- Nurse reported to CM that Dr Holt has declined to take pt, per [facility], & that a message was relayed to the attending. @14:30- [facility] has assisted pt with completion of [place] GW[place] vilma. CM faxing documentation to [facility] & calling now to verify if they are able to accept pt with that. If unable, CM to fax & verify w/ [facility]. If neither hospital is able to accept, attending plans to reach out to [facility]. @15:00- CM spoke with Shelby at [facility]. Shelby reported that she will communicate with her team & call CM back with a determination. CM to update attending physician. @15:45- CM received cb from Roseline at [facility]. Roseline stated that their neurosurgeon wants [facility] to call them to consider if they would be willingto take the patient, despite GWEN pending status and out of network insurance. CMupdated the attending. Servicer Coin Machines: Dina Abebe - Home Health/IV Infusion/Wound Vac Home Health Referral Indicated: Yes Home Health List Provided: Yes Indication for Home Health: Wound Care, Other Patient's Response: Yes Home Health Agencies: [facility] Patient given the option to view quality scores of facility?: Yes - Jail Facility SNF List Provided: Yes Social Work Consult initiated for SNF: Yes - Transportation Mode of Transportation: Ambulance - Respiratory Equipment Does the patient have a nebulizer at home?: No - * L * Length of Stay LOS (Including day of Admission and Discharge): 9 LOS Score: 5 - * C * Comorbidities Select All Conditions that Apply: No Comorbidity Condition Comorbidities Total Score: 0 - * E * Emergency Department Visits # of ER visits,6mos prior to admit,excl this admits ER visit: 0 Enter this number or 4 (whichever is smaller): 0 - LACE SCORE LACE Score: 5 - ANTICIPATED DISCHARGE Anticipated Discharge Date: 09/16/23 Is a ARCHIBALD Form Required?: No Entered by: Dina Abebe on 09/16/23 0824 Report Signed by: Dina Abebe on 09/16/23 1616 <<Signature on File>> <Electronically signed by Dina Abebe> Co-Signed by: on [facility] Work Phone: 1(111) 240-477010-24-2023 Progress note Author Dina Abebe [facility] September 16, 2023 4:16pm Note Date/Time September 16, 2023 8 :26am [facility] Case Management Patient: GEOVANNY MEJÍA. : 1970 [place], [place] [address] Location: [phone] Unit #: [id number] Case Management Daily Note Dina Abebe Service Date: 09/16/23 Case Mgmt Daily Note - Plan of Care Servicer Coin Machines Agrees with Attending and Consult Plan: Yes - COVID-19 Was Position Statement Letter Delivered?: Yes - Care Coordination Communication Care Coordination Communication: Spoke with patient's family via phone - Hospital Stay Days Day 1 Comment: 09/08 Met with patient in the room. Patient is from [place]. She is up here to visit her sister. Patient reporting she is normally independent. Doesnot have a PCP. Patient would like to use [facility] for meds. Planning to have her cousin pick her up at d/c. Contact is her cousin Ursula. Denies having LW/dPOA. Servicer Coin Machines: Evelyne Pena, RN Day 2 Comment: 09/09 Met with patient in the room. Patient asking to get up and move around. PT/OT to eval. S/p L ABD drain placement. Patient agreeable to [facility] for drain mgmt if needed. Reporting she will be going to [facility] at d/c to staywith her cousin Ursula. CM spoke with patients cousin Ursula via telephone who reports she is ok with [facility] coming to her home if patient would go there at d/c. Ursula reporting patient was homeless in [place] and recently move to [place] with faith Amaya. Servicer Coin Machines: Evelyne Pena, RN Day 3 Comment: 09/10 D/c needs pending medical course. Jr present. 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 PT/OT. ID c/s. Therapy recs for IPR vs OP PT. Will follow to assist with d/c needs. Servicer Coin Machines: Evelyne Pena, RN Day 4 Comment: 09/11 Met with patient in the room who is planning to d/c to her [facility] in [place], [place]. Patient is agreeable to [facility]. LENY spoke with Ursula who is agreeable for patient to come there at d/c. Referral sent to [facility].Await approval. GLOBAL CHIEF CREATIVE OFFICER. ABD drain. NPO. ID c/s. PT/OT. Servicer Coin Machines: Evelyne Pena, RN Day 5 Comment: 09/12 Met with patient in the room to discuss d/c plan. Patient unable to move b/l LE. No sensation to RLE. Does have sesation to LLE. PT/OT recommending SNF, patient agreeable. She would like to go somewhere near her cousin Ursula in [place], [place]. CM assisted patient with changing her address withher [facility] insurance to [place] address. SW c/s for SNF placement and GWEN assist with [place]. Patient will need a precert. 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 If patient would improve with mobility, she has been accepted to [facility]. CM spoke with Ursula via telephone to update. Servicer Coin Machines: Evelyne Pena, RN Day 6 Comment: 09/15- POD 2. CM spoke with patient at bedside. VSS. WBC 19.9. PT/OT rec SNF. Pt verbalized agreeable for SNF and would like [facility]. MANOLO c/s & reported that [facility] is not in network with pt insurance. MANOLO spoke w/ pt & Lamin is now reviewing patient. Pt is awaiting the start of [place] GWEN application with [facility] as current dual insurance is out of state. Pt willalso require a precert when medically ready. CM following. Servicer Coin Machines: Dina Abebe Day 8 Comment: 09/15- POD 2. CM spoke with patient at bedside. VSS. WBC 19.9. PT/OT rec SNF. Pt verbalized agreeable for SNF and would like [facility]. MANOLO c/s. Pt will require precert when medically ready. CM following. Day 9 Comment: 09/16- Noted plan changed to [facility] pending bed & accepting physician. CM contacted [facility] this AM and spoke with Ashish, who explained that they will NOT be able to accept the patient d/t her insurance not in network. CM updated the attending. Attending noted plans to attempt transfer to [facility] &if denied, to attempt transfer to [facility], per pt preferance. Transfer packet completed. CM following. @12:21- Nurse reported to CM that Dr Holt has declined to take pt, per [facility], & that a message was relayed to the attending. @14:30- [facility] has assisted pt with completion of [place] GW[place] vilma. CM faxing documentation to [facility] & calling now to verify if they are able to accept pt with that. If unable, CM to fax & verify w/ [facility]. If neither hospital is able to accept, attending plans to reach out to [facility]. @15:00- CM spoke with Shelby at [facility]. Shelby reported that she will communicate with her team & call CM back with a determination. CM to update attending physician. @15:45- CM received cb from Roseline at [facility]. Roseline stated that their neurosurgeon wants Lobel to call them to consider if they would be willingto take the patient, despite GWEN pending status and out of network insurance. CMupdated the attending. Servicer Coin Machines: Dina Abebe - Home Health/IV Infusion/Wound Vac Home Health Referral Indicated: Yes Home Health List Provided: Yes Indication for Home Health: Wound Care, Other Patient's Response: Yes Home Health Agencies: [facility] Patient given the option to view quality scores of facility?: Yes - Jail Facility SNF List Provided: Yes Social Work Consult initiated for SNF: Yes - Transportation Mode of Transportation: Ambulance - Respiratory Equipment Does the patient have a nebulizer at home?: No - * L * Length of Stay LOS (Including day of Admission and Discharge): 9 LOS Score: 5 - * C * Comorbidities Select All Conditions that Apply: No Comorbidity Condition Comorbidities Total Score: 0 - * E * Emergency Department Visits # of ER visits,6mos prior to admit,excl this admits ER visit: 0 Enter this number or 4 (whichever is smaller): 0 - LACE SCORE LACE Score: 5 - ANTICIPATED DISCHARGE Anticipated Discharge Date: 09/16/23 Is a ARCHIBALD Form Required?: No Entered by: Dina Abebe on 09/16/23 0824 Report Signed by: Dina Abebe on 09/16/23 1616 <<Signature on File>> <Electronically signed by Dina Abebe> Co-Signed by: on [facility] Work Phone: [phone]) 248-154610-24-2023 Progress note Author Jacqueline Edwards [facility] September 16, 2023 3:33pm Note Date/Time September 16, 2023 3 :32pm [facility] Manager [place] Patient: GEOVANNY MEJÍA [address] : 1970 [place], [place] [address] Location: [phone] Unit #: [id number] Social Work Daily Note Jacqueline Edwards BASEBALL HAND SEWER, SUPERVISOR SOLDERING Service Date: 09/16/23 MANOLO Daily Note - * Psychosocial Assessment * I have reviewed nursing and case management psychosocial information.: Yes - * Care Coordination Communication * Care Coordination Communication: Spoke with patient's family via phone - * COVID-19 * Was Position Statement Letter Delivered?: Yes - * Hospital Stay Days * Day 1 Note: 09/15/23 SW consult for SNF. Pt has recently relocated to the area, living with her cousin. Pt is now in need of SNF placement for rehab. pt is needing to transfer her [facility] medicaid dual plan. SW got a copy of pts card, pt was unable to move much and couldnt sit up, she needed SW assistance to get her insurance card out of her wallet. Nurse LENY Hickey called with pt on Friday to transfer the Medicare portion. The Medicaid portion needs cancelled and re-submitted for [place] Medicaid for pts county she [place] be living in. SW made contact with [facility] for assistance and to re-submit pts medicaid vilma. Pt would like a facility near her cousin ursula's house. There are looking at [facility] in [place], and [facility]. SW made contact with [facility] and they are not in network with [facility]. [facility] is in Network. SWfollow up with pts cousin via phone as she would like her to help with finding anursing home. Per Ursula there is another facility near her [facility]. SW made contact with [facility], they are in network with [facility], Per there admissions person Emmanuel they would be willing to bring pt in with a pending Medicaid number, per Emmanuel both Medicare and Medicaid would need transfered. Referral sent to [facility] for review. Marisol from [facility] to meet with pt. SW to also meet back to assist with canceling [place] if Marisol has not been able to assist pt. Web Design Intern: Jacqueline Edwards, BASEBALL HAND SEWER, SUPERVISOR SOLDERING Day 2 Note: 09/15/23 SW met back with pt, pt was asleep but easily aroused. SW explained to pt that we needed to terminate her [place] Medicaid before submitting an application for [place] Medicaid and this needed to be initiated prior to her Dcing to a SNF. SW called [facility] and had to leave a requesting that they call pt back to so that pt could terminate her [place] Medicaid there and give her new address and county. Web Design Intern: Jacqueline Edwards LSW, MSW Day 3 Note: 09/16/23 Pt transfer pending for another hospital. Referral was sent tot SNFS, [place] was able to accept, Lamin was reviewing. Both pt and pt cousin Ursula aware of possible transfer out, but know SNF is still the back up plan, they can also follow back when pt Dcs from other setting and still requires a skilled stay. [facility] initiated a Medicaid application for pt. [place] Medicaid Application/pending number forward to [facility] if needed for transfer out. Pts cousin Ursula shared with that she heard that pt may havea history of substance abuse and this could be contributing to her current condition. SW unsure of this and encouraged her to speak with physician about this when she is next here visiting with pt. Web Design Intern: Jacqueline Edwards LSW, MSW - * Requested Intvs/Referrals * Research Editor Referrals: SNF/LTAC Placement Web Design Intern I Referrals: Financial Issues/Medicaid Applications - * HEALTHCARE DECISIONS * Living Will: Unknown Durable Power of [place] Insulation Setter for Health Care: Unknown State of [place] DNR Comfort Care: [place] DNR Comfort Care Arrest: Unknown - Home Health/IV Infusion/Wound Vac Home Health Referral Indicated: Yes Home Health List Provided: Yes Indication for Home Health: Wound Care, Other Patient's Response: Yes Home Health Agencies: [facility] Patient given options to view quality scores of facility?: No Entered by: MARY Rodriguez MSW on 09/16/23 1523 Report Signed by: LORNA Ovalle on 09/16/23 1533 <<Signature on File>> <Electronically signed by LORNA iHll> Report Signed by: on [facility] Work Phone: [phone]) 798-644310-24-2023 Progress note Author Jacqueline Edwards [facility] September 16, 2023 3:33pm Note Date/Time September 16, 2023 3 :32pm [facility] Manager [place] Patient: GEOVANNY MEJÍA [address] : 1970 [place], [place] [address] Location: [phone] Unit #: [id number] Social Work Daily Note Jacqueline Edwards BASEBALL HAND SEWER, SUPERVISOR SOLDERING Service Date: 09/16/23 MANOLO Daily Note - * Psychosocial Assessment * I have reviewed nursing and case management psychosocial information.: Yes - * Care Coordination Communication * Care Coordination Communication: Spoke with patient's family via phone - * COVID-19 * Was Position Statement Letter Delivered?: Yes - * Hospital Stay Days * Day 1 Note: 09/15/23 SW consult for SNF. Pt has recently relocated to the area, living with her cousin. Pt is now in need of SNF placement for rehab. pt is needing to transfer her [facility] medicaid dual plan. SW got a copy of pts card, pt was unable to move much and couldnt sit up, she needed SW assistance to get her insurance card out of her wallet. Nurse LENY Hickey called with pt on Friday to transfer the Medicare portion. The Medicaid portion needs cancelled and re-submitted for [place] Medicaid for pts county she [place] be living in. SW made contact with [facility] for assistance and to re-submit pts medicaid vilma. Pt would like a facility near her cousin ursula's house. There are looking at [facility] in [place], and [facility]. SW made contact with [facility] and they are not in network with [facility]. [facility] is in Network. SWfollow up with pts cousin via phone as she would like her to help with finding anursing home. Per Ursula there is another facility near her [facility]. SW made contact with [facility], they are in network with [facility], Per there admissions person Emmanuel they would be willing to bring pt in with a pending Medicaid number, per Emmanuel both Medicare and Medicaid would need transfered. Referral sent to [facility] for review. Marisol from [facility] to meet with pt. SW to also meet back to assist with canceling [place] if [facility] has not been able to assist pt. Web Design Intern: Jacqueline Edwards, BASEBALL HAND SEWER, SUPERVISOR SOLDERING Day 2 Note: 09/15/23 SW met back with pt, pt was asleep but easily aroused. SW explained to pt that we needed to terminate her [place] Medicaid before submitting an application for [place] Medicaid and this needed to be initiated prior to her Dcing to a SNF. SW called [facility] and had to leave a requesting that they call pt back to so that pt could terminate her [place] Medicaid there and give her new address and county. Web Design Intern: Jacqueline Edwards LSW, LORNA Day 3 Note: 09/16/23 Pt transfer pending for another hospital. Referral was sent [facility], [facility] was able to accept, Lamin was reviewing. Both pt and pt cousin Ursula aware of possible transfer out, but know SNF is still the back up plan, they can also follow back when pt Dcs from other setting and still requires a skilled stay. [facility] initiated a Medicaid application for pt. [place] Medicaid Application/pending number forward to [facility] if needed for transfer out. Pts cousin Ursula shared with that she heard that pt may havea history of substance abuse and this could be contributing to her current condition. SW unsure of this and encouraged her to speak with physician about this when she is next here visiting with pt. Web Design Intern: Jacqueline Edwards LSW, LORNA - * Requested Intvs/Referrals * Research Editor Referrals: SNF/LTAC Placement Web Design Intern I Referrals: Financial Issues/Medicaid Applications - * HEALTHCARE DECISIONS * Living Will: Unknown Durable Power of [place] Insulation Setter for Health Care: [place] DNR Comfort Care: [place] DNR Comfort Care Arrest: Unknown - Home Health/IV Infusion/Wound Vac Home Health Referral Indicated: Yes Home Health List Provided: Yes Indication for Home Health: Wound Care, Other Patient's Response: Yes Home Health Agencies: [facility] Patient given options to view quality scores of facility?: No Entered by: MAYR Rodriguez MSW on 09/16/23 1523 Report Signed by: LORNA Ovalle on 09/16/23 153 <<Signature on File>> <Electronically signed by LORNA Hill> Report Signed by: on [facility] Work Phone: 1(294) 312-444610-24-2023 Progress note Author Troy Garber [facility] September 16, 2023 11:39am Note Date/Time September 16, 2023 1 1:39am [facility] Medical Records Patient: GEOVANNY MEJÍA. : 1970 [place], [place] [address] Location: [address] [place] [address] Unit #: [id number] Progress Note - Hospitalist Troy Garber MD Service Dt/Tm: 09/16/23 1129 Assessment/Plan Assessment/Plan (1) Abscess in epidural space of thoracic spine: Status: Acute Code(s): G06.1 - Intraspinal abscess and granuloma Plan: The start MRI that was scheduled around 7:55 in the morning with, was ordered after 7 PM yesterday. Neurosurgery consult had reviewed the MRI results and recommended transfer to a tertiary center. A call was made by the night provider Dr. Elena, to the [facility]. However this morning, we have been told that the patient's insurance is not part of the network, and therefore they cannot accept the patient in transfer to their facility. As indicated above, I discussed with patient at the bedside with her sister on the phone, with the direction to call first the [facility] for the transfer, and if that does not materialize, then a call will be placed to the [facility]. We will continue with IV antibiotic while the patient remains in-house with follow- up by ID consult, and also follow-up by neurosurgery consult. (2) Staphylococcus aureus septicemia: Status: Acute Code(s): A41.01 - Sepsis due to Methicillin susceptible Staphylococcus aureus Plan: Infectious disease consult monitoring and managing antibiotics for the septicemia. (3) Intra-abdominal abscess: Status: Acute Code(s): K65.1 - Peritoneal abscess Plan: Patient has a left-sided retroperitoneal abscess, status post drain placement and repeat CT showing improvement. Continue to monitor closely, with ID consultfollowing and managing. Noted general surgery did sign of the case indicating no surgical intervention currently. Antibiotic management as indicated above. (4) HTN (hypertension): Status: Acute Qualifiers: Hypertension type: primary hypertension Qualified Code(s): I10 - Essential (primary) hypertension Code(s): I10 - Essential (primary) hypertension Plan: Continue with home regimen of antihypertensive, however will monitor closely because of the infection for hypotensive episodes. (5) Asthma: Status: Acute Qualifiers: Asthma severity: mild Asthma persistence: intermittent Asthma complication type: uncomplicated Qualified Code(s): J45.20 - Mild intermittent asthma, uncomplicated Code(s): J45.909 - Unspecified asthma, uncomplicated Plan: Home medication regimen as resumed, will continue with supportive management. (6) Normocytic normochromic anemia: Status: Acute Code(s): D64.9 - Anemia, unspecified Plan: Unclear etiology, however in the setting of infection, would want the infection to be brought under control prior to replenishing the iron stores. We will be obtaining anemia work-up. (7) Hyponatremia: Status: Acute Code(s): E87.1 - Hypo-osmolality and hyponatremia Plan: Unclear duration, stable and asymptomatic. Patient will need further work-up. This could be hypovolemia from dehydration. (8) Severe protein-calorie malnutrition: Status: Acute Code(s): E43 - Unspecified severe protein-calorie malnutrition Plan: Patient has albumin of 2.7 and prealbumin of 5 signaling severe protein calorie malnutrition. Patient will therefore need dietary consult to assist in the management since she needs proteins for healing process. (9) Hypocalcemia: Status: Acute Code(s): E83.51 - Hypocalcemia Plan: Patient does have hypocalcemia and previous ionized calcium was low. Patient isbeing started on vitamin D 5000 international units daily by mouth, and also Os-Riley 500, 1 tablet daily. We will continue to monitor serum calcium closely. (10) Electrolyte imbalance: Status: Acute Code(s): E87.8 - Other disorders of electrolyte and fluid balance, not elsewhere classified Plan: Including but not limited to hypocalcemia, hypokalemia and hypophosphatemia. Electrolyte imbalance is being corrected per protocol and will be repeating labsthis p.m. and tomorrow morning. Plan Recommendations for transfer to especially facility has been made by both neurosurgery and ID consults. Calls initially were made to the [facility] and patient's transfer has been rejected because her insurance is not part of the [facility] network. Discussed with patient and sister and a call has been placed to the [facility], according to their choice, and the third choice being the [facility], if the [facility] transfer does not materialize. We will continue with supportive but aggressive management pending the transfer. Current Code Status & Diet: 09/08/23 13:19 Code Status Routine Resuscitation Status: Full Code Code Status Order Placed: Code Status Ordered 09/08/23 at 1321 09/13/23 08:00 Regular Diet Texture: Regular Fluid Restrictions?: No Consult Biomedical Photographer for Oral Supplements/Nourishments?: No Oral Supplement 1: Ensure Supplement 1 Frequency: Once/day Oral Supplement 2: Magic Cup Supplement 2 Frequency: Once/day Discussed Patient's Care With: Nurse and Case Management Subjective Subjective: Patient was seen and examined this morning and I had a detailed discussion with the patient with her sister on the phone. I was notified by RN and case management, that [facility] has declined the transfer, since the patient's insurance isnot part of their network. Per my discussion with patient and his sister this morning, I had given the option of [facility] and the [facility]. Both patient and sister would want me to try [facility] first. A call was placed today [facility] transfer line [phone], and I did speak with Radha ALEGRIA. She took the details including the patient's room and the floor phone number for the 5 S. Patient remains on IV antibiotic as directed bythe culture and being managed by ID consult, pending her transfer. Overnight events noted Patient Status & Estimated DC Date Patient Registration Status: Inpatient Objective Constitutional: Last Vital Signs Temp Pulse Resp BP Pulse Ox O2 Flow Rate 98.4 F 89 16 124/68 95 2.0 09/16/23 08:06 09/16/23 11:07 09/16/23 11:07 09/16/23 11:07 09/16/23 11:07 09/14/23 09:00 Intake and Output 09/15/23 09/16/23 09/17/23 06:59 06:59 06:59 Intake Total 3457.19 2745.79 Output Total 3400 2150 Balance 57.19 595.79 Admitting (IV Pump) Weight 83 kg Actual Weight (Kg) 83 kg General Appearance: Alert, Resting Comfortably and Cooperative; No Acute Distress Eyes: PERRLA and EOMI ENT: Normal Inspection, Pharynx Normal and Oral Mucosa Moist; No Pharyngeal Erythema Skin: Color Normal and Warm, Dry; No Rash, Diaphoresis or Pallor Cardiovascular: Irregular Rhythm; No Click, Rub, Gallop or Murmur Lungs: Clear to Auscultate Bila and Good Air Entry; No Rales or Expiratory Wheezes Abdomen: Soft, Tender to palpation and Other (Abscess drain in place draining purulent fluid); No Rebound tender to palpat. Extremities: Activity as expected and Warm and Dry; No Cyanosis, Swelling or Edema Neurologic: A & O x3 and Other (Bilateral paraparesis, with intact sensation of the left lower extremity, however no sensation of the right lower extremity up to the upper thigh region.) Psychological: Mood & Affect Normal Data Labs: 09/16/23 05:48 Phosphorus 4.8 H D Magnesium 2.1 09/16/23 05:48 WBC 19.4 H RBC 2.85 L Hgb 8.0 L Hct 24.4 L MCV 85.6 MCH 28.0 MCHC 32.8 L RDW 16.1 H Plt Count 576 H 09/16/23 05:48 Sodium 128 L Potassium 4.3 Chloride 96 L Carbon Dioxide 26 Anion Gap 6 BUN 11 Creatinine 0.47 L Calcium 8.10 L The last 24 hours of labs have been reviewed. Imaging: I have reviewed the diagnostic images in the EMR. Microbiology: Microbiology 09/11/23 13:40 Blood,Venous - Final 09/11/23 13:40 Blood,Venous Blood Culture - Final Staphylococcus aureus 09/11/23 13:35 Blood,Venous Blood Culture - Final Staphylococcus aureus 09/13/23 05:00 Back Gram Stain - Final 09/13/23 05:00 Back Wound Culture - Preliminary Staphylococcus aureus 09/13/23 16:06 Blood,Venous Blood Culture - Preliminary No growth after 3 days, cultures held 5 days. 09/13/23 15:55 Blood,Venous Blood Culture - Preliminary No growth after 3 days, cultures held 5 days. Medications and Comanagement: Medications reviewed separately. Entered by: Troy Garber MD on 09/16/23 112 Report Signed by: Troy Garber MD on 09/16/231138 <<Signature on File>> <Electronically signed by Troy Garber MD> Report Signed by: on [facility] Work Phone: 1(445) 694-602210-24-2023 Progress note Author Troy Garber [facility] September 16, 2023 11:39am Note Date/Time September 16, 2023 1 1:39am [facility] Medical Records Patient: GEOVANNY MEJÍA. : 1970 [place], [place] [address] Location: [phone] Unit #: [id number] Progress Note - Hospitalist Troy Garber MD Service Dt/Tm: 09/16/23 1129 Assessment/Plan Assessment/Plan (1) Abscess in epidural space of thoracic spine: Status: Acute Code(s): G06.1 - Intraspinal abscess and granuloma Plan: The start MRI that was scheduled around 7:55 in the morning with, was ordered after 7 PM yesterday. Neurosurgery consult had reviewed the MRI results and recommended transfer to a tertiary center. A call was made by the night provider Dr. Elena, to the [facility]. However this morning, we have been told that the patient's insurance is not part of the network, and therefore they cannot accept the patient in transfer to their facility. As indicated above, I discussed with patient at the bedside with her sister on the phone, with the direction to call first the [facility] for the transfer, and if that does not materialize, then a call will be placed to the [facility]. We will continue with IV antibiotic while the patient remains in-house with follow- up by ID consult, and also follow-up by neurosurgery consult. (2) Staphylococcus aureus septicemia: Status: Acute Code(s): A41.01 - Sepsis due to Methicillin susceptible Staphylococcus aureus Plan: Infectious disease consult monitoring and managing antibiotics for the septicemia. (3) Intra-abdominal abscess: Status: Acute Code(s): K65.1 - Peritoneal abscess Plan: Patient has a left-sided retroperitoneal abscess, status post drain placement and repeat CT showing improvement. Continue to monitor closely, with ID consultfollowing and managing. Noted general surgery did sign of the case indicating no surgical intervention currently. Antibiotic management as indicated above. (4) HTN (hypertension): Status: Acute Qualifiers: Hypertension type: primary hypertension Qualified Code(s): I10 - Essential (primary) hypertension Code(s): I10 - Essential (primary) hypertension Plan: Continue with home regimen of antihypertensive, however will monitor closely because of the infection for hypotensive episodes. (5) Asthma: Status: Acute Qualifiers: Asthma severity: mild Asthma persistence: intermittent Asthma complication type: uncomplicated Qualified Code(s): J45.20 - Mild intermittent asthma, uncomplicated Code(s): J45.909 - Unspecified asthma, uncomplicated Plan: Home medication regimen as resumed, will continue with supportive management. (6) Normocytic normochromic anemia: Status: Acute Code(s): D64.9 - Anemia, unspecified Plan: Unclear etiology, however in the setting of infection, would want the infection to be brought under control prior to replenishing the iron stores. We will be obtaining anemia work-up. (7) Hyponatremia: Status: Acute Code(s): E87.1 - Hypo-osmolality and hyponatremia Plan: Unclear duration, stable and asymptomatic. Patient will need further work-up. This could be hypovolemia from dehydration. (8) Severe protein-calorie malnutrition: Status: Acute Code(s): E43 - Unspecified severe protein-calorie malnutrition Plan: Patient has albumin of 2.7 and prealbumin of 5 signaling severe protein calorie malnutrition. Patient will therefore need dietary consult to assist in the management since she needs proteins for healing process. (9) Hypocalcemia: Status: Acute Code(s): E83.51 - Hypocalcemia Plan: Patient does have hypocalcemia and previous ionized calcium was low. Patient isbeing started on vitamin D 5000 international units daily by mouth, and also Os-Riley 500, 1 tablet daily. We will continue to monitor serum calcium closely. (10) Electrolyte imbalance: Status: Acute Code(s): E87.8 - Other disorders of electrolyte and fluid balance, not elsewhere classified Plan: Including but not limited to hypocalcemia, hypokalemia and hypophosphatemia. Electrolyte imbalance is being corrected per protocol and will be repeating labsthis p.m. and tomorrow morning. Plan Recommendations for transfer to especially facility has been made by both neurosurgery and ID consults. Calls initially were made to the [facility] and patient's transfer has been rejected because her insurance is not part of the [facility] network. Discussed with patient and sister and a call has been placed to the [facility], according to their choice, and the third choice being the [facility], if the [facility] transfer does not materialize. We will continue with supportive but aggressive management pending the transfer. Current Code Status & Diet: 09/08/23 13:19 Code Status Routine Resuscitation Status: Full Code Code Status Order Placed: Code Status Ordered 09/08/23 at 1321 09/13/23 08:00 Regular Diet Texture: Regular Fluid Restrictions?: No Consult Biomedical Photographer for Oral Supplements/Nourishments?: No Oral Supplement 1: Ensure Supplement 1 Frequency: Once/day Oral Supplement 2: Magic Cup Supplement 2 Frequency: Once/day Discussed Patient's Care With: Nurse and Case Management Subjective Subjective: Patient was seen and examined this morning and I had a detailed discussion with the patient with her sister on the phone. I was notified by RN and case management, that [facility] has declined the transfer, since the patient's insurance isnot part of their network. Per my discussion with patient and his sister this morning, I had given the option of [facility] and the [facility]. Both patient and sister would want me to try [facility] first. A call was placed today [facility] transfer line [phone], and I did speak with Radha ALEGRIA. She took the details including the patient's room and the floor phone number for the 5 S. Patient remains on IV antibiotic as directed bythe culture and being managed by ID consult, pending her transfer. Overnight events noted Patient Status & Estimated DC Date Patient Registration Status: Inpatient Objective Constitutional: Last Vital Signs Temp Pulse Resp BP Pulse Ox O2 Flow Rate 98.4 F 89 16 124/68 95 2.0 09/16/23 08:06 09/16/23 11:07 09/16/23 11:07 09/16/23 11:07 09/16/23 11:07 09/14/23 09:00 Intake and Output 09/15/23 09/16/23 09/17/23 06:59 06:59 06:59 Intake Total 3457.19 2745.79 Output Total 3400 2150 Balance 57.19 595.79 Admitting (IV Pump) Weight 83 kg Actual Weight (Kg) 83 kg General Appearance: Alert, Resting Comfortably and Cooperative; No Acute Distress Eyes: PERRLA and EOMI ENT: Normal Inspection, Pharynx Normal and Oral Mucosa Moist; No Pharyngeal Erythema Skin: Color Normal and Warm, Dry; No Rash, Diaphoresis or Pallor Cardiovascular: Irregular Rhythm; No Click, Rub, Gallop or Murmur Lungs: Clear to Auscultate Bila and Good Air Entry; No Rales or Expiratory Wheezes Abdomen: Soft, Tender to palpation and Other (Abscess drain in place draining purulent fluid); No Rebound tender to palpat. Extremities: Activity as expected and Warm and Dry; No Cyanosis, Swelling or Edema Neurologic: A & O x3 and Other (Bilateral paraparesis, with intact sensation of the left lower extremity, however no sensation of the right lower extremity up to the upper thigh region.) Psychological: Mood & Affect Normal Data Labs: 09/16/23 05:48 Phosphorus 4.8 H D Magnesium 2.1 09/16/23 05:48 WBC 19.4 H RBC 2.85 L Hgb 8.0 L Hct 24.4 L MCV 85.6 MCH 28.0 MCHC 32.8 L RDW 16.1 H Plt Count 576 H 09/16/23 05:48 Sodium 128 L Potassium 4.3 Chloride 96 L Carbon Dioxide 26 Anion Gap 6 BUN 11 Creatinine 0.47 L Calcium 8.10 L The last 24 hours of labs have been reviewed. Imaging: I have reviewed the diagnostic images in the EMR. Microbiology: Microbiology 09/11/23 13:40 Blood,Venous - Final 09/11/23 13:40 Blood,Venous Blood Culture - Final Staphylococcus aureus 09/11/23 13:35 Blood,Venous Blood Culture - Final Staphylococcus aureus 09/13/23 05:00 Back Gram Stain - Final 09/13/23 05:00 Back Wound Culture - Preliminary Staphylococcus aureus 09/13/23 16:06 Blood,Venous Blood Culture - Preliminary No growth after 3 days, cultures held 5 days. 09/13/23 15:55 Blood,Venous Blood Culture - Preliminary No growth after 3 days, cultures held 5 days. Medications and Comanagement: Medications reviewed separately. Entered by: Troy Garber MD on 09/16/23 112 Report Signed by: Troy Garber MD on 09/16/23 113 <<Signature on File>> <Electronically signed by Troy Garber MD> Report Signed by: on [facility] Work Phone: 1([phone]) 474-631510-24-2023 Progress note Author David Elena [facility] September 16, 2023 6:44am Note Date/Time September 16, 2023 6 :42am [facility] Medical Records Patient: GEOVANNY MEJÍA. : 1970 [place] [id number] Location: [phone] Unit #: [id number] Status Note/Update David Elena MD Service Dt/Tm: 09/15/232044 Note: GEOVANNY MEJÍA is a 53 yr old F who was admitted on 09/08/23 for INTRA ABDOMINAL ABCESS. Transfer process to go to [facility] started. Discussed with patient and also patient's close relative Ursula Echevarria about the transfer to [facility]. They have agreed to be transferred. Spoke to Shabnam transfer nurse at [facility] phone number [phone]. Detailed history was given. She will speak to neurosurgery at [facility] and find a bed for thepatient as soon as possible. She will call the floor and do the needful. Discussed with the nurse on the floor. Awaiting a bed at [facility]. Entered by: David Elena on 09/16/23638 Report Signed by: David Elena MD on 09/16/23643 <<Signature on File>> <Electronically signed by David Elena MD> Report Signed by: on [facility] Work Phone: 1(317) 108-125010-24-2023 Progress note Author David Elena [facility] September 16, 2023 6:44am Note Date/Time September 16, 2023 6 :42am [facility] Medical Records Patient: GEOVANNY MEJÍA. : 1970 [place] [address] Location: [phone] Unit #: [id number] Status Note/Update David Elena MD Service Dt/Tm: 09/15/232044 Note: GEOVANNY MEJÍA is a 53 yr old F who was admitted on 09/08/23 for INTRA ABDOMINAL ABCESS. Transfer process to go to [facility] started. Discussed with patient and also patient's close relative Ursula Echevarria about the transfer to [facility]. They have agreed to be transferred. Spoke to Shabnam transfer nurse at [facility] phone number [phone]. Detailed history was given. She will speak to neurosurgery at [facility] and find a bed for thepatient as soon as possible. She will call the floor and do the needful. Discussed with the nurse on the floor. Awaiting a bed at [facility]. Entered by: David Elena on 09/16/23 0639 Report Signed by: David Elena MD on 09/16/23 0644 <<Signature on File>> <Electronically signed by David Elena MD> Report Signed by: on [facility] Work Phone: 1(416) 711-268310-23-2023 Progress note Author Alec Clemons [facility] September 15, 2023 8:54pm Note Date/Time September 15, 2023 4 :10pm [facility] Medical Records Patient: GEOVANNY MEJÍA. : 1970 [place], [place] [address] Location: [address] [place] [address] Unit #: [id number] Progress Note Neurosurgery Lucy Lara PA-C Service Dt/Tm: 09/15/23 1609 <Lucy Lara PA-C - Last Filed: 09/15/23 16:15> Assessment/Plan (1) Bacteremia: Status: Acute (2) Retroperitoneal abscess: Status: Acute Plan postop day 2 Hemilaminectomy T4-5 with evacuation of dorsal spinal epidural abscess; hemilaminectomy with transpedicular decompression T10 on the left side with evacuation of ventral spinal epidural abscess on 09/13/23 Stat Thoracic MRI ordered. Pending results. We will continue to monitor for any improvement of lower extremity weakness. On heparin for VTE prophylaxis. plan of care discussed with Dr. Clemons who agrees <Alec Clemons MD - Last Filed: 09/15/23 20:54> Assessment/Plan (1) Bacteremia: (2) Retroperitoneal abscess: Plan postop day 2 Hemilaminectomy T4-5 with evacuation of dorsal spinal epidural abscess; hemilaminectomy with transpedicular decompression T10 on the left side with evacuation of ventral spinal epidural abscess on 09/13/23 Stat Thoracic MRI ordered. Pending results. We will continue to monitor for any improvement of lower extremity weakness. On heparin for VTE prophylaxis. plan of care discussed with Dr. Clemons who agrees \Patient seen at bedside this evening Persistent bilateral lower extremity paraplegia; minimal ability to discern light touch locations No clonus or hyperreflexia Continues to experience axial back pain Bilateral upper extremity strength 5/5 No nuchal rigidity or photophobia MRI scan performed redemonstrating postsurgical changes and what appears to be areaccumulation of the ventral spinal epidural abscess within the surgical bed; dorsal spinal epidural abscess appears to be largely evacuated; multiple vertebral bodies appear to be involved at this time; please refer to the official report Assessment/plan Patient's status post hemilaminectomy and evacuation of the initial spinal epidural abscesses with reaccumulation of the T9-T11 fluid collection. Based onthat finding and what may be a progression of vertebral body infections I feel it is necessary for the patient to be reassessed by tertiary center. I am concerned that a secondary surgery may also result in reaccumulation of the epidural abscess so long as the primary source is not eradicated. The patient continues on antibiotics and despite the antibiotics has continued to experienceprogressive infection. Fortunately she does not have signs of meningismus and she is not currently septic. I spoke with both the primary service and the infectious disease service and they concur with my suggestion. Another decompression given her neurologic status and the intraoperative physiologic studies may result in further complication. She may require a multilevel decompression and potentially vertebral body debridement depending on the progression of the infection. We will also be necessary to ensure she does not develop even more proximal infection involving the cervical spine. The patient will continue on DVT prophylaxis, pain management, and be monitored in the upper extremities for any progressive neurologic compromise. <Lucy Lara PA-C - Last Filed: 09/15/23 16:15> Subjective GEOVANNY MEJÍA is a 53 yr old F who was admitted on 09/08/23 for INTRA ABDOMINAL ABCESS. S: Patient postop day 2 Hemilaminectomy T4-5 with evacuation of dorsal spinal epidural abscess; hemilaminectomy with transpedicular decompression T10 on the left side with evacuation of ventral spinal epidural abscess on 09/13/2023. Patient examined lying in bed. She continues to complain about being in pain but less painful than yesterday. WBC up from 18.2 to 19.9. IR placed abdominal abscess drain, purulent fluid draining from abscess on 09/08 for left sided retroperitoneal abscess. Stat thoracic mri ordered. <Lucy Lara PA-C - Last Filed: 09/15/23 16:15> Objective Hemodynamics: Vital Signs - Last Set Temperature 98.7 F 09/15/23 08:03 Pulse Rate 96 09/15/23 15:51 Respiratory Rate 18 09/15/23 15:51 Blood Pressure 122/66 09/15/23 15:51 Oxygen Saturation% 98 09/15/23 15:47 Liters of Oxygen 2.0 09/14/23 09:00 Intake and Output 09/14/23 09/15/23 09/16/23 06:59 06:59 06:59 Intake Total 3547.64 3457.19 1306.38 Output Total 3800 3400 700 Balance -252.36 57.19 606.38 Daily Weight: Admitting (IV Pump) Weight 83 kg Actual Weight (Kg) 83 kg General: Alert, Resting Comfortably and Cooperative HEENT: EOMI Skin: Warm, Dry Extremities: Warm and Dry Neurologic: Grossly Intact (with exception of BLE weakness. 0/4 power BLE) and Sensory deficit (reports to inability to feel lower right extremity. Able to feel left lower extremity) Psychological: Mood & Affect Normal Results: Laboratory Results - last 24 hr 09/15/23 09/15/23 09/14/23 01:19 01:19 16:00 WBC 19.9 H RBC 3.17 L Hgb 8.9 L Hct 27.0 L MCV 85.2 MCH 28.0 MCHC 32.9 L RDW 16.1 H Plt Count 586 H Neut % (Auto) 86.0 H Lymph % (Auto) 10.2 L D Graham % (Auto) 3.6 D Eos % (Auto) 0.2 Baso % (Auto) 0.0 Nucleat RBC Rel Count 0.0 Absolute Neuts (auto) 27435 H Absolute Lymphs (auto) 2000 Absolute Monos (auto) 700 Absolute Eos (auto) 0 Absolute Basos (auto) 0 ESR 116 H Sodium 133 L Potassium 4.6 4.6 3.2 L Chloride 99 L Carbon Dioxide 28 Anion Gap 6 BUN 15 Creatinine 0.55 L GFR Calculation > 60 Random Glucose 109 Calcium 8.00 L Phosphorus 2.6 Magnesium 2.0 C-Reactive Protein 11.4 H Albumin 2.5 L Microbiology 09/13/23 16:06 Blood,Venous Blood Culture - Preliminary No growth after 2 days, cultures held 5 days. 09/13/23 15:55 Blood,Venous Blood Culture - Preliminary No growth after 2 days, cultures held 5 days. 09/13/23 05:00 Back Gram Stain - Final 09/13/23 05:00 Back Wound Culture - Preliminary Staphylococcus aureus I have reviewed the diagnostic images from Radiology in the EMR Medications: Current medications reviewed and appropriate changes or recommendations have been made. Entered by: Lucy Lara PA-C on 09/15/23 160 Report Signed by: Lucy Lara PA-C on 09/15/23 1615 <<Signature on File>> < 53 <<Signature on File>> <Electronically signed by Alec Clemons MD> [facility] Work Phone: 1(859) 511-626210-23-2023 Progress note Author Alec Clemons [facility] September 15, 2023 8:54pm Note Date/Time September 15, 2023 4 :10pm [facility] Medical Records Patient: GEOVANNY MEJÍA. : 1970 [place], [place] [address] Location: [address] [place] [address] Unit #: [id number] Progress Note Neurosurgery Lucy Lara PA-C Service Dt/Tm: 09/15/231608 <Lucy Lara PA-C - Last Filed: 09/15/23 16:15> Assessment/Plan (1) Bacteremia: Status: Acute (2) Retroperitoneal abscess: Status: Acute Plan postop day 2 Hemilaminectomy T4-5 with evacuation of dorsal spinal epidural abscess; hemilaminectomy with transpedicular decompression T10 on the left side with evacuation of ventral spinal epidural abscess on 09/13/23 Stat Thoracic MRI ordered. Pending results. We will continue to monitor for any improvement of lower extremity weakness. On heparin for VTE prophylaxis. plan of care discussed with Dr. Clemons who agrees <Alec Clemons MD - Last Filed: 09/15/23 20:54> Assessment/Plan (1) Bacteremia: (2) Retroperitoneal abscess: Plan postop day 2 Hemilaminectomy T4-5 with evacuation of dorsal spinal epidural abscess; hemilaminectomy with transpedicular decompression T10 on the left side with evacuation of ventral spinal epidural abscess on 09/13/23 Stat Thoracic MRI ordered. Pending results. We will continue to monitor for any improvement of lower extremity weakness. On heparin for VTE prophylaxis. plan of care discussed with Dr. Clemons who agrees \Patient seen at bedside this evening Persistent bilateral lower extremity paraplegia; minimal ability to discern light touch locations No clonus or hyperreflexia Continues to experience axial back pain Bilateral upper extremity strength 5/5 No nuchal rigidity or photophobia MRI scan performed redemonstrating postsurgical changes and what appears to be areaccumulation of the ventral spinal epidural abscess within the surgical bed; dorsal spinal epidural abscess appears to be largely evacuated; multiple vertebral bodies appear to be involved at this time; please refer to the official report Assessment/plan Patient's status post hemilaminectomy and evacuation of the initial spinal epidural abscesses with reaccumulation of the T9-T11 fluid collection. Based onthat finding and what may be a progression of vertebral body infections I feel it is necessary for the patient to be reassessed by tertiary center. I am concerned that a secondary surgery may also result in reaccumulation of the epidural abscess so long as the primary source is not eradicated. The patient continues on antibiotics and despite the antibiotics has continued to experienceprogressive infection. Fortunately she does not have signs of meningismus and she is not currently septic. I spoke with both the primary service and the infectious disease service and they concur with my suggestion. Another decompression given her neurologic status and the intraoperative physiologic studies may result in further complication. She may require a multilevel decompression and potentially vertebral body debridement depending on the progression of the infection. We will also be necessary to ensure she does not develop even more proximal infection involving the cervical spine. The patient will continue on DVT prophylaxis, pain management, and be monitored in the upper extremities for any progressive neurologic compromise. <Lucy Lara PA-C - Last Filed: 09/15/23 16:15> Subjective GEOVANNY MEJÍA is a 53 yr old F who was admitted on 09/08/23 for INTRA ABDOMINAL ABCESS. S: Patient postop day 2 Hemilaminectomy T4-5 with evacuation of dorsal spinal epidural abscess; hemilaminectomy with transpedicular decompression T10 on the left side with evacuation of ventral spinal epidural abscess on 09/13/2023. Patient examined lying in bed. She continues to complain about being in pain but less painful than yesterday. WBC up from 18.2 to 19.9. IR placed abdominal abscess drain, purulent fluid draining from abscess on 09/08 for left sided retroperitoneal abscess. Stat thoracic mri ordered. <Lucy Lara PA-C - Last Filed: 09/15/23 16:15> Objective Hemodynamics: Vital Signs - Last Set Temperature 98.7 F 09/15/23 08:03 Pulse Rate 96 09/15/23 15:51 Respiratory Rate 18 09/15/23 15:51 Blood Pressure 122/66 09/15/23 15:51 Oxygen Saturation% 98 09/15/23 15:47 Liters of Oxygen 2.0 09/14/23 09:00 Intake and Output 09/14/23 09/15/23 09/16/23 06:59 06:59 06:59 Intake Total 3547.64 3457.19 1306.38 Output Total 3800 3400 700 Balance -252.36 57.19 606.38 Daily Weight: Admitting (IV Pump) Weight 83 kg Actual Weight (Kg) 83 kg General: Alert, Resting Comfortably and Cooperative HEENT: EOMI Skin: Warm, Dry Extremities: Warm and Dry Neurologic: Grossly Intact (with exception of BLE weakness. 0/4 power BLE) and Sensory deficit (reports to inability to feel lower right extremity. Able to feel left lower extremity) Psychological: Mood & Affect Normal Results: Laboratory Results - last 24 hr 09/15/23 09/15/23 09/14/23 01:19 01:19 16:00 WBC 19.9 H RBC 3.17 L Hgb 8.9 L Hct 27.0 L MCV 85.2 MCH 28.0 MCHC 32.9 L RDW 16.1 H Plt Count 586 H Neut % (Auto) 86.0 H Lymph % (Auto) 10.2 L D Graham % (Auto) 3.6 D Eos % (Auto) 0.2 Baso % (Auto) 0.0 Nucleat RBC Rel Count 0.0 Absolute Neuts (auto) 86355 H Absolute Lymphs (auto) 2000 Absolute Monos (auto) 700 Absolute Eos (auto) 0 Absolute Basos (auto) 0 ESR 116 H Sodium 133 L Potassium 4.6 4.6 3.2 L Chloride 99 L Carbon Dioxide 28 Anion Gap 6 BUN 15 Creatinine 0.55 L GFR Calculation > 60 Random Glucose 109 Calcium 8.00 L Phosphorus 2.6 Magnesium 2.0 C-Reactive Protein 11.4 H Albumin 2.5 L Microbiology 09/13/23 16:06 Blood,Venous Blood Culture - Preliminary No growth after 2 days, cultures held 5 days. 09/13/23 15:55 Blood,Venous Blood Culture - Preliminary No growth after 2 days, cultures held 5 days. 09/13/23 05:00 Back Gram Stain - Final 09/13/23 05:00 Back Wound Culture - Preliminary Staphylococcus aureus I have reviewed the diagnostic images from Radiology in the EMR Medications: Current medications reviewed and appropriate changes or recommendations have been made. Entered by: Lucy Lara PA-C on 09/15/23 1609 Report Signed by: Lucy Lara PA-C on 09/15/23 1615 <<Signature on File>> < 53 <<Signature on File>> <Electronically signed by Alec Clemons MD> [facility] Work Phone: [phone]) 406-417610-23-2023 Progress note Author Dina Abebe [facility] September 15, 2023 3:54pm Note Date/Time September 15, 2023 9 :16am [facility] Case Management Patient: GEOVANNY MEJÍA. : 1970 [place], [place] [address] Location: [phone] Unit #: [id number] Case Management Daily Note Dina Abebe Service Date: 09/15/23 Case Mgmt Daily Note - Plan of Care Servicer [employer] Agrees with Attending and Consult Plan: Yes - Patient Preferences & Goals What is the patient's preference?: New SNF Recommended acute discharge goals: New SNF - COVID-19 Was Position Statement Letter Delivered?: Yes - Hospital Stay Days Day 1 Comment: 09/08 Met with patient in the room. Patient is from [place]. She is up here to visit her sister. Patient reporting she is normally independent. Doesnot have a PCP. Patient would like to use [facility] OP Pharm for meds. Planning to have her cousin pick her up at d/c. Contact is her cousin Ursula. Denies having LW/dPOA. Servicer [employer]: Evelyne Pena, RN Day 2 Comment: 09/09 Met with patient in the room. Patient asking to get up and move around. PT/OT to [facility]. S/p L ABD drain placement. Patient agreeable to [facility] for drain mgmt if needed. Reporting she will be going to [facility] at d/c to staywith her cousin Ursula. CM spoke with patients cousin Ursula via telephone who reports she is ok with [facility] coming to her home if patient would go there at d/c. Ursula reporting patient was homeless in [place] and recently move to [place] with faith [employer]. Servicer [employer]: Evelyne Pena, RN Day 3 Comment: 09/10 D/c needs pending medical course. Jr present. 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 PT/OT. ID c/s. Therapy recs for IPR vs OP PT. Will follow to assist with d/c needs. [employer]icer [employer]: Evelyne Pena, RN Day 4 Comment: 09/11 Met with patient in the room who is planning to d/c to her [facility] in [place], [place]. Patient is agreeable to [facility]. CM spoke with Ursula who is agreeable for patient to come there at d/c. Referral sent to [facility].Await approval. GLOBAL CHIEF CREATIVE OFFICER. ABD drain. NPO. ID c/s. PT/OT. Servicer [employer]: Evelyne Pena, RN Day 5 Comment: 09/12 Met with patient in the room to discuss d/c plan. Patient unable to move b/l LE. No sensation to RLE. Does have sesation to LLE. PT/OT recommending SNF, patient agreeable. She would like to go somewhere near her cousin Ursula in [place], [place]. CM assisted patient with changing her address withher [facility] insurance to an [place] address. SW c/s for SNF placement and [place] assist with [place]. Patient will need a precert. 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 If patient would improve with mobility, she has been accepted to [facility]. CM spoke with Ursula via telephone to update. [employer]: Evelyne Pena, RN Day 6 Comment: 09/15- POD 2. CM spoke with patient at bedside. VSS. WBC 19.9. PT/OT rec SNF. Pt verbalized agreeable for SNF and would like [facility]. MANOLO c/s & reported that [facility] is not in network with pt insurance. MANOLO spoke w/ pt & Lamin is now reviewing patient. Pt is awaiting the start of [facility] application with [employer] as current dual insurance is out of state. Pt willalso require a precert when medically ready. CM following. Servicer [employer]: Dina Abebe - Home Health/IV Infusion/Wound Vac Home Health Referral Indicated: Yes Home Health List Provided: Yes Indication for Home Health: Wound Care, Other Patient's Response: Yes Home Health Agencies: [facility] Patient given the option to view quality scores of facility?: Yes - Jail Facility SNF List Provided: Yes Jail Facilities: [facility] Patient given the option to view quality scores of facility?: Yes Social Work Consult initiated for SNF: Yes - Transportation Mode of Transportation: Private Vehicle - Respiratory Equipment Does the patient have a nebulizer at home?: No - * L * Length of Stay LOS (Including day of Admission and Discharge): 8 LOS Score: 5 - * C * Comorbidities Select All Conditions that Apply: No Comorbidity Condition Comorbidities Total Score: 0 - * E * Emergency Department Visits # of ER visits,6mos prior to admit,excl this admits ER visit: 0 Enter this number or 4 (whichever is smaller): 0 - LACE SCORE LACE Score: 5 - ANTICIPATED DISCHARGE Anticipated Discharge Date: 09/16/23 Is a ARCHIBALD Form Required?: No Entered by: Dina Abebe on 09/15/23 0914 Report Signed by: Dina Abebe on 09/15/23 1554 <<Signature on File>> <Electronically signed by Dina Abebe> Co-Signed by: on [facility] Work Phone: 1(220) 302-497310-23-2023 Progress note Author Dina Abebe [facility] September 15, 2023 3:54pm Note Date/Time September 15, 2023 9 :16am [facility] Case Management Patient: GEOVANNY MEJÍA [address] : 1970 [place], [place] [address] Location: [phone] [id number] Management Daily Note Dina Abebe Service Date: 09/15/23 Case Mgmt Daily Note - Plan of Care Serv[employer] Agrees with Attending and Consult Plan: Yes - Patient Preferences & Goals What is the patient's preference?: New SNF Recommended acute discharge goals: New SNF - COVID-19 Was Position Statement Letter Delivered?: Yes - Hospital Stay Days Day 1 Comment: 09/08 Met with patient in the room. Patient is from [place]. She is up here to visit her sister. Patient reporting she is normally independent. Doesnot have a PCP. Patient would like to use [facility] OP Pharm for meds. Planning to have her cousin pick her up at d/c. Contact is her cousin Ursula. Denies having LW/dPOA. Servicer [employer]: Evelyne Pena, RN Day 2 Comment: 09/09 Met with patient in the room. Patient asking to get up and move around. PT/OT to [facility]. S/p L ABD drain placement. Patient agreeable to [facility] for drain mgmt if needed. Reporting she will be going to [facility] at d/c to staywith her cousin Ursula. CM spoke with patients cousin Ursula via telephone who reports she is ok with [facility] coming to her home if patient would go there at d/c. Ursula reporting patient was homeless in [place] and recently move to [place] with faith Amaya. Servicer [employer]: Evelyne Pena, RN Day 3 Comment: 09/10 D/c needs pending medical course. Jr present. 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 PT/OT. ID c/s. Therapy recs for IPR vs OP PT. Will follow to assist with d/c needs. Servicer [employer]: Evelyne Pena, RN Day 4 Comment: 09/11 Met with patient in the room who is planning to d/c to her [facility] in [place], [place]. Patient is agreeable to [facility]. CM spoke with Ursula who is agreeable for patient to come there at d/c. Referral sent to [facility].Await approval. GLOBAL CHIEF CREATIVE OFFICER. ABD drain. NPO. ID c/s. PT/OT. Servicer [employer]: Evelyne Pena, RN Day 5 Comment: 09/12 Met with patient in the room to discuss d/c plan. Patient unable to move b/l LE. No sensation to RLE. Does have sesation to LLE. PT/OT recommending SNF, patient agreeable. She would like to go somewhere near her cousin Ursula in [place], [place]. CM [facility] [place]. SW c/s for SNF placement and [facility] assist with [place]. Patient will need a precert. 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 If patient would improve with mobility, she has been accepted to [facility]. CM spoke with Ursula via telephone to update. Servicer [employer]: Evelyne Pena, RN Day 6 Comment: 09/15- POD 2. CM spoke with patient at bedside. VSS. WBC 19.9. PT/OT rec SNF. Pt verbalized agreeable for SNF and would like [facility]. SW c/s & reported that [facility] is not in network with pt insurance. MANOLO spoke w/ pt & Lamin is now reviewing patient. Pt is awaiting the start of [place] [facility] application with [employer] as current dual insurance is out of state. Pt willalso require a precert when medically ready. CM following. Servicer [employer]: Dina Abebe R - Home Health/IV Infusion/Wound Vac Home Health Referral Indicated: Yes Home Health List Provided: Yes Indication for Home Health: Wound Care, Other Patient's Response: Yes Home Health Agencies: [facility] Patient given the option to view quality scores of facility?: Yes - Jail Facility SNF List Provided: Yes Jail Facilities: [facility] Patient given the option to view quality scores of facility?: Yes Social Work Consult initiated for SNF: Yes - Transportation Mode of Transportation: Private Vehicle - Respiratory Equipment Does the patient have a nebulizer at home?: No - * L * Length of Stay LOS (Including day of Admission and Discharge): 8 LOS Score: 5 - * C * Comorbidities Select All Conditions that Apply: No Comorbidity Condition Comorbidities Total Score: 0 - * E * Emergency Department Visits # of ER visits,6mos prior to admit,excl this admits ER visit: 0 Enter this number or 4 (whichever is smaller): 0 - LACE SCORE LACE Score: 5 - ANTICIPATED DISCHARGE Anticipated Discharge Date: 09/16/23 Is a ARCHIBALD Form Required?: No Entered by: Dina Abebe on 09/15/23 0914 Report Signed by: Dina Abebe on 09/15/23 1554 <<Signature on File>> <Electronically signed by Dina Abebe> Co-Signed by: on [facility] Work Phone: [phone]) 372-764810-23-2023 Progress note Author Jacqueline Edwards [facility] September 15, 2023 3:53pm Note Date/Time September 15, 2023 3 :53pm [facility] Manager Union Patient: GEOVANNY MEJÍA [address] : 1970 [place], [place] [address] Location: [phone] Unit #: [id number] Social Work Daily Note Jacqueline Edwards BASEBALL HAND SEWER, SUPERVISOR SOLDERING Service Date: 09/15/23 SW Daily Note - * Psychosocial Assessment * I have reviewed nursing and case management psychosocial information.: Yes - * Care Coordination Communication * Care Coordination Communication: Spoke with patient's family via phone - * COVID-19 * Was Position Statement Letter Delivered?: Yes - * Hospital Stay Days * Day 1 Note: 09/15/23 MANOLO consult for SNF. Pt has recently relocated to the area, living with her cousin. Pt is now in need of SNF placement for rehab. pt is needing to transfer her [facility] medicaid dual plan. SW got a copy of pts card, pt was unable to move much and couldnt sit up, she needed assistance to get her insurance card out of her wallet. Nurse LENY Hickey called with pt on Friday to transfer the Medicare portion. The Medicaid portion needs cancelled and re-submitted for [place] Medicaid for pts county she [place] be living in. SW made contact with [employer] for assistance and to re-submit pts medicaid vilma. Pt would like a facility near her cousin ursula's house. There are looking at [facility] in [place], and [facility]. SW made contact with [facility] and they are not in network with [facility]. [facility] is in Network. SWfollow up with pts cousin via phone as she would like her to help with finding anursing home. Per Ursula there is another facility near her [facility]. SW made contact with [facility], they are in network with [facility], Per there admissions person Emmanuel they would be willing to bring pt in with a pending Medicaid number, per Emmanuel both Medicare and Medicaid would need transfered. Referral sent to [facility] for review. Marisol from [facility] to meet with pt. SW to also meet back to assist with canceling [place] if Marisol has not been able to assist pt. Web Design Intern: Jacqueline Edwards LSW, LORNA Day 2 Note: 09/15/23 SW met back with pt, pt was asleep but easily aroused. SW explained to pt that we needed to terminate her [place] Medicaid before submitting an application for [place] Medicaid and this needed to be initiated prior to her Dcing to a SNF. MANOLO called [facility] and had to leave a VM requesting that they call pt back to so that pt could terminate her [place] Medicaid there and give her new address and county. Web Design Intern: Jacqueline Edwards LSW, LORNA - * Requested Intvs/Referrals * Research Editor Referrals: SNF/LTAC Placement Web Design Intern I Referrals: Financial Issues/Medicaid Applications - * HEALTHCARE DECISIONS * Living Will: Unknown Durable Power of [place] Insulation Setter for Health Care: Unknown [place] DNR Comfort Care: [place] DNR Comfort Care Arrest: Unknown - Home Health/IV Infusion/Wound Vac Home Health Referral Indicated: Yes Home Health List Provided: Yes Indication for Home Health: Wound Care, Other Patient's Response: Yes Home Health Agencies: [facility] Patient given options to view quality scores of facility?: No Entered by: MARY Rodriguez MSW on 09/15/23 4839 Report Signed by: LORNA Ovalle on 09/15/23 0841 <<Signature on File>> <Electronically signed by LORNA Hill> Report Signed by: on [facility] Work Phone: [phone]) [phone] Progress note Author Jacqueline Edwards [facility] September 15, 2023 3:53pm Note Date/Time September 15, 2023 3 :53pm [facility] Manager [place] Patient: GEOVANNY MEJÍA. : 1970 [place], [place] [address] Location: [address] [place] [address] Unit #: [id number] Social Work Daily Note Jacqueline Edwards BASEBALL HAND SEWER, SUPERVISOR SOLDERING Service Date: 09/15/23 SW Daily Note - * Psychosocial Assessment * I have reviewed nursing and case management psychosocial information.: Yes - * Care Coordination Communication * Care Coordination Communication: Spoke with patient's family via phone - * COVID-19 * Was Position Statement Letter Delivered?: Yes - * Hospital Stay Days * Day 1 Note: 09/15/23 SW consult for SNF. Pt has recently relocated to the area, living with her cousin. Pt is now in need of SNF placement for rehab. pt is needing to transfer her [facility] medicaid dual plan. SW got a copy of pts card, pt was unable to move much and couldnt sit up, she needed assistance to get her insurance card out of her wallet. Nurse LENY Hickey called with pt on Friday to transfer the Medicare portion. The Medicaid portion needs cancelled and re-submitted for [place] Medicaid for pts county she will be living in. MANOLO made contact with [facility] for assistance and to re-submit pts medicaid vilma. Pt would like a facility near her cousin ursula's house. There are looking at [facility] in [place], and [facility]. SW made contact with [facility] and they are not in network with [facility]. [facility] is in Network. SWfollow up with pts cousin via phone as she would like her to help with finding anursing home. Per Ursula there is another facility near her [facility]. SW made contact with [facility], they are in network with [facility], Per there admissions person Emmanuel they would be willing to bring pt in with a pending Medicaid number, per Britraza both Medicare and Medicaid would need transfered. Referral sent to [facility] for review. Marisol from [facility] to meet with pt. MANOLO to also meet back to assist with canceling [place] if [facility] has not been able to assist pt. Web Design Intern: Jacqueline Edwards LSW, MSW Day 2 Note: 09/15/23 SW met back with pt, pt was asleep but easily aroused. SW explained to pt that we needed to terminate her [place] Medicaid before submitting an application for [place] Medicaid and this needed to be initiated prior to her Dcing to a SNF. SW called [facility] and had to leave a VM requesting that they call pt back to so that pt could terminate her [place] Medicaid there and give her new address and county. Web Design Intern: Jacqueline Edwards LSW, MSW - * Requested Intvs/Referrals * Research Editor Referrals: SNF/LTAC Placement Web Design Intern I Referrals: Financial Issues/Medicaid Applications - * HEALTHCARE DECISIONS * Living Will: Unknown Durable Power of [place] Insulation Setter for Health Care: Unknown [facility] DNR Comfort Care: Unknown [facility] DNR Comfort Care Arrest: Unknown - Home Health/IV Infusion/Wound Vac Home Health Referral Indicated: Yes Home Health List Provided: Yes Indication for Home Health: Wound Care, Other Patient's Response: Yes Home Health Agencies: [facility] Patient given options to view quality scores of facility?: No Entered by: MARY Rodriguez MSW on 09/15/23 154 Report Signed by: LORNA Ovalle on 09/15/23 1553 <<Signature on File>> <Electronically signed by LORNA Hill> Report Signed by: on [facility] Work Phone: [phone]) 221-733110-23-2023 Progress note Author Jacqueline Edwards [facility] September 15, 2023 2:21pm Note Date/Time September 15, 2023 2 :20pm [facility] Manager [place] Patient: GEOVANNY MEJÍA. : 1970 [place], [place] [address] Location: [phone] Unit #: [id number] Social Work Daily Note LORNA Hill Service Date: 09/15/23 Daily Note - * Psychosocial Assessment * I have reviewed nursing and case management psychosocial information.: Yes - * Care Coordination Communication * Care Coordination Communication: Spoke with patient's family via phone - * COVID-19 * Was Position Statement Letter Delivered?: Yes - * Hospital Stay Days * Day 1 Note: 09/15/23 SW consult for SNF. Pt has recently relocated to the area, living with her cousin. Pt is now in need of SNF placement for rehab. pt is needing to transfer her [facility] medicaid dual plan. SW got a copy of pts card, pt was unable to move much and couldnt sit up, she needed SW assistance to get her insurance card out of her wallet. Nurse LENY Hickey called with pt on Friday to transfer the Medicare portion. The Medicaid portion needs cancelled and re-submitted for [place] Medicaid for pts county [place] be living in. SW made contact with [facility] for assistance and to re-submit pts medicaid vilma. Pt would like a facility near her cousin ursula's house. There are looking at [facility] in [place], and [facility]. SW made contact with [facility] and they are not in network with [facility]. [facility] is in Network. SWfollow up with pts cousin via phone as she would like her to help with finding anursing home. Per Ursula there is another facility near her [facility]. SW made contact with [facility], they are in network with [facility], Per there admissions person Emmanuel they would be willing to bring pt in with a pending Medicaid number, per Brittini both Medicare and Medicaid would need transfered. Referral sent to [facility] for review. Marisol from [facility] to meet with pt. MANOLO to also meet back to assist with canceling [place] if Marisol has not been able to assist pt. Web Design Intern: Jacqueline Edwards, BASEBALL HAND SEWER, SUPERVISOR SOLDERING - * Information * Oriented to: Person, Place, Time, Situation Mental Status/Mood: Alert and Oriented, Cooperative - * Requested Intvs/Referrals * Research Editor Referrals: SNF/LTAC Placement Web Design Intern I Referrals: Financial Issues/Medicaid Applications - * HEALTHCARE DECISIONS * Living Will: Unknown Durable Power of [place] Insulation Setter for Health Care: Unknown [facility] [place] DNR Comfort Care: [place] DNR Comfort Care Arrest: Unknown - Home Health/IV Infusion/Wound Vac Home Health Referral Indicated: Yes Home Health List Provided: Yes Indication for Home Health: Wound Care, Other Patient's Response: Yes Home Health Agencies: [facility] Patient given options to view quality scores of facility?: No Entered by: MARY Rodriguez MSW on 09/15/23 1405 Report Signed by: LORNA Ovalle on 09/15/23 1421 <<Signature on File>> <Electronically signed by LORNA Hill> Report Signed by: on [facility] Work Phone: 1(124) [phone] Progress note Author Jacqueline Edwards [facility] September 15, 2023 2:21pm Note Date/Time September 15, 2023 2 :20pm [facility] Manager [place] Patient: GEOVANNY MEJÍA [address] : 1970 [place], [place] [address] Location: [phone] Unit #: [id number] Social Work Daily Note Jacqueline HERNANDEZ, LORNA Service Date: 09/15/23 SW Daily Note - * Psychosocial Assessment * I have reviewed nursing and case management psychosocial information.: Yes - * Care Coordination Communication * Care Coordination Communication: Spoke with patient's family via phone - * COVID-19 * Was Position Statement Letter Delivered?: Yes - * Hospital Stay Days * Day 1 Note: 09/15/23 MANOLO consult for SNF. Pt has recently relocated to the area, living with her cousin. Pt is now in need of SNF placement for rehab. pt is needing to transfer her [facility] medicaid dual plan. SW got a copy of pts card, pt was unable to move much and couldnt sit up, she needed assistance to get her insurance card out of her wallet. Nurse LENY Hickey called with pt on Friday to transfer the Medicare portion. The Medicaid portion needs cancelled and re-submitted for [place] Medicaid for pts county she [place] living in. MANOLO made contact with [employer] for assistance and to re-submit pts medicaid vilma. Pt would like a facility near her cousin ursula's house. There are looking at [facility] in [place], and [facility]. SW made contact with [facility] and they are not in network with [facility]. Tammy Starkey is in Network. SWfollow up with pts cousin via phone as she would like her to help with finding anursing home. Per Ursula there is another facility near her [facility] [place]. SW made contact with [facility] [place], they are in network with [facility], Per there admissions person Emmanuel they would be willing to bring pt in with a pending Medicaid number, per Emmanuel both Medicare and Medicaid would need transfered. Referral sent to [facility] for review. Marisol from [facility] to meet with pt. MANOLO to also meet back to assist with canceling [place] Medicaid if Marisol has not been able to assist pt. Web Design Intern: Jacqueline Edwards LSW, MSW - * Information * Oriented to: Person, Place, Time, Situation Mental Status/Mood: Alert and Oriented, Cooperative - * Requested Intvs/Referrals * Research Editor Referrals: SNF/LTAC Placement Web Design Intern I Referrals: Financial Issues/Medicaid Applications - * HEALTHCARE DECISIONS * Living Will: Unknown Durable Power of [place] Insulation Setter for Health Care: Unknown [place] DNR Comfort Care: Unknown [facility] DNR Comfort Care Arrest: Unknown - Home Health/IV Infusion/Wound Vac Home Health Referral Indicated: Yes Home Health List Provided: Yes Indication for Home Health: Wound Care, Other Patient's Response: Yes Home Health Agencies: [facility] Patient given options to view quality scores of facility?: No Entered by: MARY Rodriguez MSW on 09/15/23 1405 Report Signed by: LORNA Ovalle on 09/15/23 1421 <<Signature on File>> <Electronically signed by LORNA Hill> Report Signed by: on [facility] Work Phone: 1(448) 477-761310-23-2023 Progress note Author Troy Garber [facility] September 15, 2023 1:57pm Note Date/Time September 15, 2023 7 :45am [facility] Medical Records Patient: GEOVANNY MEJÍA [address] : 1970 [place], [place] [address] Location: [phone] [id number] Note - Hospitalist Troy Garber MD Service Dt/Tm: 09/15/23 0745 Assessment/Plan Assessment/Plan (1) Abscess in epidural space of thoracic spine: Status: Acute Code(s): G06.1 - Intraspinal abscess and granuloma Plan: Status post hemilaminectomy T4-5 with evacuation of dorsal spinal epidural abscess; hemilaminectomy with transpedicular decompression T10 on the left side with evacuation of ventral spinal epidural abscess. Appreciate input by neurosurgery consult. ID consult following with further antibiotic recommendations. Closely monitor for improvement in the bilateral lower extremity weakness. Scheduled for repeat MRI of the thoracic spine stat, as recommended by neurosurgery consult to evaluate patient for the need for review surgery. Neurosurgery consult following. (2) Staphylococcus aureus septicemia: Status: Acute Code(s): A41.01 - Sepsis due to Methicillin susceptible Staphylococcus aureus Plan: Infectious disease consult monitoring and managing antibiotics for the septicemia. (3) Intra-abdominal abscess: Status: Acute Code(s): K65.1 - Peritoneal abscess Plan: Patient has a left-sided retroperitoneal abscess, status post drain placement and repeat CT showing improvement. Continue to monitor closely, with ID consultfollowing and managing. Patient may benefit from general surgery input eventually. Antibiotic management as indicated above. (4) HTN (hypertension): Status: Acute Qualifiers: Hypertension type: primary hypertension Qualified Code(s): I10 - Essential (primary) hypertension Code(s): I10 - Essential (primary) hypertension Plan: Continue with home regimen of antihypertensive, however will monitor closely because of the infection for hypotensive episodes. (5) Asthma: Status: Acute Qualifiers: Asthma complication type: uncomplicated Asthma persistence: intermittent Asthma severity: mild Qualified Code(s): J45.20 - Mild intermittent asthma, uncomplicated Code(s): J45.909 - Unspecified asthma, uncomplicated Plan: Home medication regimen as resumed, will continue with supportive management. (6) Normocytic normochromic anemia: Status: Acute Code(s): D64.9 - Anemia, unspecified Plan: Unclear etiology, however in the setting of infection, would want the infection to be brought under control prior to replenishing the iron stores. We will be obtaining anemia work-up. (7) Hyponatremia: Status: Acute Code(s): E87.1 - Hypo-osmolality and hyponatremia Plan: Unclear duration, stable and asymptomatic. Patient will need further work-up. This could be hypovolemia from dehydration. (8) Severe protein-calorie malnutrition: Status: Acute Code(s): E43 - Unspecified severe protein-calorie malnutrition Plan: Patient has albumin of 2.7 and prealbumin of 5 signaling severe protein calorie malnutrition. Patient will therefore need dietary consult to assist in the management since she needs proteins for healing process. (9) Hypocalcemia: Status: Acute Code(s): E83.51 - Hypocalcemia Plan: Patient does have hypocalcemia and previous ionized calcium was low. Patient isbeing started on vitamin D 5000 international units daily by mouth, and also Os-Riley 500, 1 tablet daily. We will continue to monitor serum calcium closely. (10) Electrolyte imbalance: Status: Acute Code(s): E87.8 - Other disorders of electrolyte and fluid balance, not elsewhere classified Plan: Including but not limited to hypocalcemia, hypokalemia and hypophosphatemia. Electrolyte imbalance is being corrected per protocol and will be repeating labsthis p.m. and tomorrow morning. Plan Management as outlined, appreciate input by all consultants. Keep patient in- house overnight and monitor closely the bilateral lower extremity weakness for improvement. Frequent turning to prevent decubitus ulcer formation. Awaiting repeat thoracic spine MRI for evaluation by neurosurgery to assess as to whetherpatient will need review surgery or it is improving. Paraparesis with no improvement and will continue with PT/OT evaluation with recommendations. A.m. labs. Current Code Status & Diet: 09/08/23 13:19 Code Status Routine Resuscitation Status: Full Code Code Status Order Placed: Code Status Ordered 09/08/23 at 1321 09/13/23 08:00 Regular Diet Texture: Regular Fluid Restrictions?: No Consult Biomedical Photographer for Oral Supplements/Nourishments?: No Discussed Patient's Care With: Nurse, Case Management and Physician Subjective Subjective: Patient was seen and examined in the morning, after I was notified by neurosurgeon through the admitting provider phone, to obtain an MRI of the thoracic spinewith and without contrast to assess for resolution of the thoracic spine epidural abscess; all 4 recommendation which will warrant emergent evacuation. MRI order was placed at 7:55 AM. Patient was subsequently seen and examined andshe was laying in bed, with pain markedly improved, after I had adjusted her pain medications from Percocet and Morphine to Dilaudid. She continues to have no movement in the bilateral lower extremities. Patient Status & Estimated DC Date Patient Registration Status: Inpatient Objective Constitutional: Last Vital Signs Temp Pulse Resp BP Pulse Ox O2 Flow Rate 98.2 F 91 20 113/66 95 2.0 09/15/23 06:26 09/15/23 06:26 09/15/23 06:26 09/15/23 06:26 09/15/23 06:26 09/14/23 09:00 Intake and Output 09/14/23 09/15/23 09/16/23 06:59 06:59 06:59 Intake Total 3547.64 3457.19 Output Total 3800 3400 Balance -252.36 57.19 Admitting (IV Pump) Weight 83 kg Actual Weight (Kg) 83 kg General Appearance: Alert, Resting Comfortably and Cooperative; No Acute Distress Eyes: PERRLA and EOMI ENT: Normal Inspection, Pharynx Normal and Oral Mucosa Moist; No Pharyngeal Erythema Skin: Color Normal and Warm, Dry; No Rash, Diaphoresis or Pallor Cardiovascular: Irregular Rhythm; No Click, Rub, Gallop or Murmur Lungs: Clear to Auscultate Bila and Good Air Entry; No Rales or Expiratory Wheezes Abdomen: Soft, Tender to palpation and Other (Abscess drain in place draining purulent fluid); No Rebound tender to palpat. Extremities: Activity as expected and Warm and Dry; No Cyanosis, Swelling or Edema Neurologic: A & O x3 and Other (Bilateral paraparesis, with intact sensation of the left lower extremity, however no sensation of the right lower extremity up to the upper thigh region.) Psychological: Mood & Affect Normal Data Labs: 09/14/23 09/15/23 13:55 01:19 Phosphorus 3.4 D 2.6 Magnesium 2.0 09/15/23 01:19 WBC 19.9 H RBC 3.17 L Hgb 8.9 L Hct 27.0 L MCV 85.2 MCH 28.0 MCHC 32.9 L RDW 16.1 H Plt Count 586 H 09/14/23 09/14/23 09/15/23 13:55 16:00 01:19 Sodium 134 L 133 L Potassium 2.8 L 3.2 L 4.6 Chloride 96 L Carbon Dioxide 31 Anion Gap 7 BUN 17 Creatinine 0.68 Calcium 7.30 L 09/15/23 01:19 Sodium Potassium 4.6 Chloride 99 L Carbon Dioxide 28 Anion Gap 6 BUN 15 Creatinine 0.55 L Calcium 8.00 L The last 24 hours of labs have been reviewed. Imaging: I have reviewed the diagnostic images in the EMR. Microbiology: Microbiology 09/13/23 05:00 Back Gram Stain - Final 09/13/23 05:00 Back Wound Culture - Preliminary Staphylococcus aureus 09/11/23 13:35 Blood,Venous Blood Culture - Preliminary Staphylococcus aureus 09/13/23 16:06 Blood,Venous Blood Culture - Preliminary No growth after 1 day, cultures held 5 days. 09/13/23 15:55 Blood,Venous Blood Culture - Preliminary No growth after 1 day, cultures held 5 days. Medications and Comanagement: Medications reviewed separately. Entered by: Troy Garber MD on 09/15/2345 Report Signed by: Troy Garber MD on 09/15/23 1357 <<Signature on File>> <Electronically signed by Troy Garber MD> Report Signed by: on [facility] Work Phone: 1(356) 633-684410-23-2023 Progress note Author Troy Garber [facility] September 15, 2023 1:57pm Note Date/Time September 15, 2023 7 :45am [facility] Medical Records Patient: GEOVANNY MEJÍA. : 1970 [place], [place] [address] Location: [address] [place] [address] Unit #: [id number] Progress Note - Hospitalist Troy Garber MD Service Dt/Tm: 09/15/2330 Assessment/Plan Assessment/Plan (1) Abscess in epidural space of thoracic spine: Status: Acute Code(s): G06.1 - Intraspinal abscess and granuloma Plan: Status post hemilaminectomy T4-5 with evacuation of dorsal spinal epidural abscess; hemilaminectomy with transpedicular decompression T10 on the left side with evacuation of ventral spinal epidural abscess. Appreciate input by neurosurgery consult. ID consult following with further antibiotic recommendations. Closely monitor for improvement in the bilateral lower extremity weakness. Scheduled for repeat MRI of the thoracic spine stat, as recommended by neurosurgery consult to evaluate patient for the need for review surgery. Neurosurgery consult following. (2) Staphylococcus aureus septicemia: Status: Acute Code(s): A41.01 - Sepsis due to Methicillin susceptible Staphylococcus aureus Plan: Infectious disease consult monitoring and managing antibiotics for the septicemia. (3) Intra-abdominal abscess: Status: Acute Code(s): K65.1 - Peritoneal abscess Plan: Patient has a left-sided retroperitoneal abscess, status post drain placement and repeat CT showing improvement. Continue to monitor closely, with ID consultfollowing and managing. Patient may benefit from general surgery input eventually. Antibiotic management as indicated above. (4) HTN (hypertension): Status: Acute Qualifiers: Hypertension type: primary hypertension Qualified Code(s): I10 - Essential (primary) hypertension Code(s): I10 - Essential (primary) hypertension Plan: Continue with home regimen of antihypertensive, however will monitor closely because of the infection for hypotensive episodes. (5) Asthma: Status: Acute Qualifiers: Asthma complication type: uncomplicated Asthma persistence: intermittent Asthma severity: mild Qualified Code(s): J45.20 - Mild intermittent asthma, uncomplicated Code(s): J45.909 - Unspecified asthma, uncomplicated Plan: Home medication regimen as resumed, will continue with supportive management. (6) Normocytic normochromic anemia: Status: Acute Code(s): D64.9 - Anemia, unspecified Plan: Unclear etiology, however in the setting of infection, would want the infection to be brought under control prior to replenishing the iron stores. We will be obtaining anemia work-up. (7) Hyponatremia: Status: Acute Code(s): E87.1 - Hypo-osmolality and hyponatremia Plan: Unclear duration, stable and asymptomatic. Patient will need further work-up. This could be hypovolemia from dehydration. (8) Severe protein-calorie malnutrition: Status: Acute Code(s): E43 - Unspecified severe protein-calorie malnutrition Plan: Patient has albumin of 2.7 and prealbumin of 5 signaling severe protein calorie malnutrition. Patient will therefore need dietary consult to assist in the management since she needs proteins for healing process. (9) Hypocalcemia: Status: Acute Code(s): E83.51 - Hypocalcemia Plan: Patient does have hypocalcemia and previous ionized calcium was low. Patient isbeing started on vitamin D 5000 international units daily by mouth, and also Os-Riley 500, 1 tablet daily. We will continue to monitor serum calcium closely. (10) Electrolyte imbalance: Status: Acute Code(s): E87.8 - Other disorders of electrolyte and fluid balance, not elsewhere classified Plan: Including but not limited to hypocalcemia, hypokalemia and hypophosphatemia. Electrolyte imbalance is being corrected per protocol and will be repeating labsthis p.m. and tomorrow morning. Plan Management as outlined, appreciate input by all consultants. Keep patient in- house overnight and monitor closely the bilateral lower extremity weakness for improvement. Frequent turning to prevent decubitus ulcer formation. Awaiting repeat thoracic spine MRI for evaluation by neurosurgery to assess as to whetherpatient will need review surgery or it is improving. Paraparesis with no improvement and will continue with PT/OT evaluation with recommendations. A.m. labs. Current Code Status & Diet: 09/08/23 13:19 Code Status Routine Resuscitation Status: Full Code Code Status Order Placed: Code Status Ordered 09/08/23 at 1321 09/13/23 08:00 Regular Diet Texture: Regular Fluid Restrictions?: No Consult Biomedical Photographer for Oral Supplements/Nourishments?: No Discussed Patient's Care With: Nurse, Case Management and Physician Subjective Subjective: Patient was seen and examined in the morning, after I was notified by neurosurgeon through the admitting provider phone, to obtain an MRI of the thoracic spinewith and without contrast to assess for resolution of the thoracic spine epidural abscess; all 4 recommendation which will warrant emergent evacuation. MRI order was placed at 7:55 AM. Patient was subsequently seen and examined andshe was laying in bed, with pain markedly improved, after I had adjusted her pain medications from Percocet and Morphine to Dilaudid. She continues to have no movement in the bilateral lower extremities. Patient Status & Estimated DC Date Patient Registration Status: Inpatient Objective Constitutional: Last Vital Signs Temp Pulse Resp BP Pulse Ox O2 Flow Rate 98.2 F 91 20 113/66 95 2.0 09/15/23 06:26 09/15/23 06:26 09/15/23 06:26 09/15/23 06:26 09/15/23 06:26 09/14/23 09:00 Intake and Output 09/14/23 09/15/23 09/16/23 06:59 06:59 06:59 Intake Total 3547.64 3457.19 Output Total 3800 3400 Balance -252.36 57.19 Admitting (IV Pump) Weight 83 kg Actual Weight (Kg) 83 kg General Appearance: Alert, Resting Comfortably and Cooperative; No Acute Distress Eyes: PERRLA and EOMI ENT: Normal Inspection, Pharynx Normal and Oral Mucosa Moist; No Pharyngeal Erythema Skin: Color Normal and Warm, Dry; No Rash, Diaphoresis or Pallor Cardiovascular: Irregular Rhythm; No Click, Rub, Gallop or Murmur Lungs: Clear to Auscultate Bila and Good Air Entry; No Rales or Expiratory Wheezes Abdomen: Soft, Tender to palpation and Other (Abscess drain in place draining purulent fluid); No Rebound tender to palpat. Extremities: Activity as expected and Warm and Dry; No Cyanosis, Swelling or Edema Neurologic: A & O x3 and Other (Bilateral paraparesis, with intact sensation of the left lower extremity, however no sensation of the right lower extremity up to the upper thigh region.) Psychological: Mood & Affect Normal Data Labs: 09/14/23 09/15/23 13:55 01:19 Phosphorus 3.4 D 2.6 Magnesium 2.0 09/15/23 01:19 WBC 19.9 H RBC 3.17 L Hgb 8.9 L Hct 27.0 L MCV 85.2 MCH 28.0 MCHC 32.9 L RDW 16.1 H Plt Count 586 H 09/14/23 09/14/23 09/15/23 13:55 16:00 01:19 Sodium 134 L 133 L Potassium 2.8 L 3.2 L 4.6 Chloride 96 L Carbon Dioxide 31 Anion Gap 7 BUN 17 Creatinine 0.68 Calcium 7.30 L 09/15/23 01:19 Sodium Potassium 4.6 Chloride 99 L Carbon Dioxide 28 Anion Gap 6 BUN 15 Creatinine 0.55 L Calcium 8.00 L The last 24 hours of labs have been reviewed. Imaging: I have reviewed the diagnostic images in the EMR. Microbiology: Microbiology 09/13/23 05:00 Back Gram Stain - Final 09/13/23 05:00 Back Wound Culture - Preliminary Staphylococcus aureus 09/11/23 13:35 Blood,Venous Blood Culture - Preliminary Staphylococcus aureus 09/13/23 16:06 Blood,Venous Blood Culture - Preliminary No growth after 1 day, cultures held 5 days. 09/13/23 15:55 Blood,Venous Blood Culture - Preliminary No growth after 1 day, cultures held 5 days. Medications and Comanagement: Medications reviewed separately. Entered by: Troy Garber MD on 09/15/23 8107 Report Signed by: Troy Garber MD on 09/15/23 2093 <<Signature on File>> <Electronically signed by Troy Garber MD> Report Signed by: on [facility] Work Phone: 1(556) 526-916610-22-2023 Progress note Author Alec Clemons [facility] September 14, 2023 8:12pm Note Date/Time September 14, 2023 1 1:07am [facility] Medical Records Patient: GEOVANNY MEJÍA [address] : 1970 [place], [place] [address] Location: [address] [place] [address] Unit #: [id number] Progress Note Neurosurgery Lucy Lara PA-C Service Dt/Tm: 09/14/23 1106 Assessment/Plan (1) Bacteremia: Status: Acute (2) Retroperitoneal abscess: Status: Acute Plan postop day 1 Hemilaminectomy T4-5 with evacuation of dorsal spinal epidural abscess; hemilaminectomy with transpedicular decompression T10 on the left side with evacuation of ventral spinal epidural abscess on 09/13/23 Thoracic MRI suggestive of T2-T11 abscess. We will continue to monitor for any improvement of lower extremity weakness. On heparin for VTE prophylaxis. plan of care discussed with Dr. Clemons who agrees Subjective GEOVANNY MEJÍA is a 53 yr old F who was admitted on 09/08/23 for INTRA ABDOMINAL ABCESS. S: Patient postop day 1 Hemilaminectomy T4-5 with evacuation of dorsal spinal epidural abscess; hemilaminectomy with transpedicular decompression T10 on the left side with evacuation of ventral spinal epidural abscess on 09/13/2023. Patient examined while she was lying in bed complaining of pain. States that she is more painful than yesterday and she has not been able to sit up all day. WBC decreasing from 33 to 18.2. IR placed abdominal abscess drain, purulent fluid draining from abscess on 09/08 for left sided retroperitoneal abscess Objective Hemodynamics: Vital Signs - Last Set Temperature 97.5 F L 09/14/23 08:54 Pulse Rate 81 09/14/23 08:54 Respiratory Rate 16 09/14/23 08:55 Blood Pressure 103/51 L 09/14/23 08:54 Oxygen Saturation% 93 09/14/23 08:55 Liters of Oxygen 2.0 09/14/23 08:54 Intake and Output 09/13/23 09/14/23 09/15/23 06:59 06:59 06:59 Intake Total 2288.96 3547.64 Output Total 2750 3800 Balance -461.04 -252.36 Daily Weight: Admitting (IV Pump) Weight 83 kg Actual Weight (Kg) 83 kg O: Vitals stable General: Alert and Other (Agitated complaining of painful back. Drain intact with purulent drainage) HEENT: EOMI Skin: Warm, Dry Extremities: Warm and Dry Neurologic: Grossly Intact (With exception of 0/4 power of lower extremity. Unable to move lower extremity. Spontaneous movement of upper extremity) Psychological: Agitated Results: Laboratory Results - last 24 hr 09/14/23 09/14/23 09:38 05:23 WBC 18.2 H RBC 2.81 L Hgb 8.0 L Hct 24.1 L MCV 85.6 MCH 28.5 MCHC 33.3 RDW 16.2 H Plt Count 392 Neutrophils % (Manual) 81.0 H Band Neutrophils % 4.0 Lymphocytes % (Manual) 13.0 L Monocytes % (Manual) 2.0 Abs Neuts (Manual) 81296 H Abs Lymphs (Manual) 2366 Abs Monocytes (Manual) 364 Absolute Eos (Manual) 0 Abs Basophils (Manual) 0 Target Cells Slight RBC Morph Comment Test not indicated ESR 83 H Sodium 132 L Potassium 3.1 L Chloride 98 L Carbon Dioxide 27 Anion Gap 7 BUN 17 Creatinine 0.57 L GFR Calculation > 60 Random Glucose 146 H Serum Osmolality 294 Calcium 7.20 L Ionized Calcium 1.06 L Phosphorus 2.2 L D Magnesium 2.2 C-Reactive Protein 10.9 H Albumin 2.3 L Vitamin B12 883 25-OH Vitamin D Total 14.30 L Folate 10.5 PTH Intact 45.6 Microbiology 09/11/23 13:35 Blood,Venous Blood Culture - Preliminary Staphylococcus aureus 09/13/23 16:06 Blood,Venous Blood Culture - Preliminary No growth after 1 day, cultures held 5 days. 09/13/23 15:55 Blood,Venous Blood Culture - Preliminary No growth after 1 day, cultures held 5 days. 09/13/23 05:00 Back Gram Stain - Final 09/13/23 05:00 Back Wound Culture - Preliminary Gram positive cocci- clusters 09/11/23 13:40 Blood,Venous - Final 09/11/23 13:40 Blood,Venous Blood Culture - Preliminary Staphylococcus aureus 09/08/23 15:46 Abdominal fluid Gram Stain - Final 09/08/23 15:46 Abdominal fluid Body Fluid Culture - Final Staphylococcus aureus 09/08/23 18:20 Blood,Venous - Final Test not indicated 09/08/23 18:20 Blood,Venous Blood Culture - Final Staphylococcus aureus Staphylococcus epidermidis I have reviewed the diagnostic images from Radiology in the EMR Medications: Current medications reviewed and appropriate changes or recommendations have been made. Entered by: Lucy Lara PA-C on 09/14/231105 Report Signed by: Lucy Lara PA-C on 09/14/23 1125 <<Signature on File>> < 11 <<Signature on File>> <Electronically signed by Alec Clemons MD> [facility] Work Phone: 1(520) 108-692310-22-2023 Progress note Author Alec Clemons [facility] September 14, 2023 8:12pm Note Date/Time September 14, 2023 1 1:07am [facility] Medical Records Patient: GEOVANNY MEJÍA. : 1970 [place], [place] [address] Location: [facility] [phone] Unit #: [id number] Progress Note Neurosurgery Lucy Lara PA-C Service Dt/Tm: 09/14/231105 Assessment/Plan (1) Bacteremia: Status: Acute (2) Retroperitoneal abscess: Status: Acute Plan postop day 1 Hemilaminectomy T4-5 with evacuation of dorsal spinal epidural abscess; hemilaminectomy with transpedicular decompression T10 on the left side with evacuation of ventral spinal epidural abscess on 10/21/23 Thoracic MRI suggestive of T2-T11 abscess. We will continue to monitor for any improvement of lower extremity weakness. On heparin for VTE prophylaxis. plan of care discussed with Dr. Clemons who agrees Subjective GEOVANNY MEJÍA is a 53 yr old F who was admitted on 09/08/23 for INTRA ABDOMINAL ABCESS. S: Patient postop day 1 Hemilaminectomy T4-5 with evacuation of dorsal spinal epidural abscess; hemilaminectomy with transpedicular decompression T10 on the left side with evacuation of ventral spinal epidural abscess on 09/13/2023. Patient examined while she was lying in bed complaining of pain. States that she is more painful than yesterday and she has not been able to sit up all day. WBC decreasing from 33 to 18.2. IR placed abdominal abscess drain, purulent fluid draining from abscess on 09/08 for left sided retroperitoneal abscess Objective Hemodynamics: Vital Signs - Last Set Temperature 97.5 F L 09/14/23 08:54 Pulse Rate 81 09/14/23 08:54 Respiratory Rate 16 09/14/23 08:55 Blood Pressure 103/51 L 09/14/23 08:54 Oxygen Saturation% 93 09/14/23 08:55 Liters of Oxygen 2.0 09/14/23 08:54 Intake and Output 09/13/23 09/14/23 09/15/23 06:59 06:59 06:59 Intake Total 2288.96 3547.64 Output Total 2750 3800 Balance -461.04 -252.36 Daily Weight: Admitting (IV Pump) Weight 83 kg Actual Weight (Kg) 83 kg O: Vitals stable General: Alert and Other (Agitated complaining of painful back. Drain intact with purulent drainage) HEENT: EOMI Skin: Warm, Dry Extremities: Warm and Dry Neurologic: Grossly Intact (With exception of 0/4 power of lower extremity. Unable to move lower extremity. Spontaneous movement of upper extremity) Psychological: Agitated Results: Laboratory Results - last 24 hr 09/14/23 09/14/23 09:38 05:23 WBC 18.2 H RBC 2.81 L Hgb 8.0 L Hct 24.1 L MCV 85.6 MCH 28.5 MCHC 33.3 RDW 16.2 H Plt Count 392 Neutrophils % (Manual) 81.0 H Band Neutrophils % 4.0 Lymphocytes % (Manual) 13.0 L Monocytes % (Manual) 2.0 Abs Neuts (Manual) 41892 H Abs Lymphs (Manual) 2366 Abs Monocytes (Manual) 364 Absolute Eos (Manual) 0 Abs Basophils (Manual) 0 Target Cells Slight RBC Morph Comment Test not indicated ESR 83 H Sodium 132 L Potassium 3.1 L Chloride 98 L Carbon Dioxide 27 Anion Gap 7 BUN 17 Creatinine 0.57 L GFR Calculation > 60 Random Glucose 146 H Serum Osmolality 294 Calcium 7.20 L Ionized Calcium 1.06 L Phosphorus 2.2 L D Magnesium 2.2 C-Reactive Protein 10.9 H Albumin 2.3 L Vitamin B12 883 25-OH Vitamin D Total 14.30 L Folate 10.5 PTH Intact 45.6 Microbiology 09/11/23 13:35 Blood,Venous Blood Culture - Preliminary Staphylococcus aureus 09/13/23 16:06 Blood,Venous Blood Culture - Preliminary No growth after 1 day, cultures held 5 days. 09/13/23 15:55 Blood,Venous Blood Culture - Preliminary No growth after 1 day, cultures held 5 days. 09/13/23 05:00 Back Gram Stain - Final 09/13/23 05:00 Back Wound Culture - Preliminary Gram positive cocci- clusters 09/11/23 13:40 Blood,Venous - Final 09/11/23 13:40 Blood,Venous Blood Culture - Preliminary Staphylococcus aureus 09/08/23 15:46 Abdominal fluid Gram Stain - Final 09/08/23 15:46 Abdominal fluid Body Fluid Culture - Final Staphylococcus aureus 09/08/23 18:20 Blood,Venous - Final Test not indicated 09/08/23 18:20 Blood,Venous Blood Culture - Final Staphylococcus aureus Staphylococcus epidermidis I have reviewed the diagnostic images from Radiology in the EMR Medications: Current medications reviewed and appropriate changes or recommendations have been made. Entered by: Lucy Lara PA-C on 09/14/23 1106 Report Signed by: Lucy Lara PA-C on 09/14/23 1125 <<Signature on File>> < 11 <<Signature on File>> <Electronically signed by Alec Clemons MD> [facility] Work Phone: 1([phone]) 218-589910-22-2023 Progress note Author Troy Garber [facility] September 14, 2023 3:39pm Note Date/Time September 14, 2023 9 :29am [facility] Medical Records Patient: GEOVANNY MEJÍA. : 1970 [place], [place] [address] Location: [phone] Unit #: [id number] Progress Note - Hospitalist Troy Garber MD Service Dt/Tm: 09/14/23 0928 Assessment/Plan Assessment/Plan (1) Abscess in epidural space of thoracic spine: Status: Acute Code(s): G06.1 - Intraspinal abscess and granuloma Plan: Status post hemilaminectomy T4-5 with evacuation of dorsal spinal epidural abscess; hemilaminectomy with transpedicular decompression T10 on the left side with evacuation of ventral spinal epidural abscess. Appreciate input by neurosurgery consult. ID consult following with further antibiotic recommendations. Closely monitor for improvement in the bilateral lower extremity weakness. (2) Staphylococcus aureus septicemia: Status: Acute Code(s): A41.01 - Sepsis due to Methicillin susceptible Staphylococcus aureus Plan: Infectious disease consult monitoring and managing antibiotics for the septicemia. (3) Intra-abdominal abscess: Status: Acute Code(s): K65.1 - Peritoneal abscess Plan: Patient has a left-sided retroperitoneal abscess, status post drain placement and repeat CT showing improvement. Continue to monitor closely, with ID consultfollowing and managing. Patient may benefit from general surgery input eventually. Antibiotic management as indicated above. (4) HTN (hypertension): Status: Acute Qualifiers: Hypertension type: primary hypertension Qualified Code(s): I10 - Essential (primary) hypertension Code(s): I10 - Essential (primary) hypertension Plan: Continue with home regimen of antihypertensive, however will monitor closely because of the infection for hypotensive episodes. (5) Asthma: Status: Acute Qualifiers: Asthma complication type: uncomplicated Asthma persistence: intermittent Asthma severity: mild Qualified Code(s): J45.20 - Mild intermittent asthma, uncomplicated Code(s): J45.909 - Unspecified asthma, uncomplicated Plan: Home medication regimen as resumed, will continue with supportive management. (6) Normocytic normochromic anemia: Status: Acute Code(s): D64.9 - Anemia, unspecified Plan: Unclear etiology, however in the setting of infection, would want the infection to be brought under control prior to replenishing the iron stores. We will be obtaining anemia work-up. (7) Hyponatremia: Status: Acute Code(s): E87.1 - Hypo-osmolality and hyponatremia Plan: Unclear duration, stable and asymptomatic. Patient will need further work-up. This could be hypovolemia from dehydration. (8) Severe protein-calorie malnutrition: Status: Acute Code(s): E43 - Unspecified severe protein-calorie malnutrition Plan: Patient has albumin of 2.7 and prealbumin of 5 signaling severe protein calorie malnutrition. Patient will therefore need dietary consult to assist in the management since she needs proteins for healing process. (9) Hypocalcemia: Status: Acute Code(s): E83.51 - Hypocalcemia Plan: Patient does have hypocalcemia and previous ionized calcium was low. This will be replenished accordingly. (10) Electrolyte imbalance: Status: Acute Code(s): E87.8 - Other disorders of electrolyte and fluid balance, not elsewhere classified Plan: Including but not limited to hypocalcemia, hypokalemia and hypophosphatemia. Electrolyte imbalance is being corrected per protocol and will be repeating labsthis p.m. and tomorrow morning. Plan Management as outlined, appreciate input by all consultants. Keep patient in- house overnight and monitor closely the bilateral lower extremity weakness for improvement. A.m. labs. Current Code Status & Diet: 09/08/23 13:19 Code Status Routine Resuscitation Status: Full Code Code Status Order Placed: Code Status Ordered 09/08/23 at 1321 09/13/23 08:00 Regular Diet Texture: Regular Fluid Restrictions?: No Consult Biomedical Photographer for Oral Supplements/Nourishments?: No Discussed Patient's Care With: Nurse and Case Management Subjective Subjective: Patient was seen and examined this morning, sitting up in a chair in no apparentdistress. Still cannot mobilize her lower extremities, however there is sensation intact especially on the left lower extremity. Pain is markedly improved. She denies any fever or chills. Multiple electrolyte imbalances including hypokalemia, hyponatremia, hypocalcemia and hypophosphatemia. Anemia work-up in progress. Patient Status & Estimated DC Date Patient Registration Status: Inpatient Objective Constitutional: Last Vital Signs Temp Pulse Resp BP Pulse Ox O2 Flow Rate 97.5 F L 81 16 103/51 L 93 2.0 09/14/23 08:54 09/14/23 08:54 09/14/23 08:55 09/14/23 08:54 09/14/23 08:55 09/14/23 08:54 Intake and Output 09/13/23 09/14/23 09/15/23 06:59 06:59 06:59 Intake Total 2288.96 3547.64 Output Total 2750 3800 Balance -461.04 -252.36 Admitting (IV Pump) Weight 83 kg Actual Weight (Kg) 83 kg General Appearance: Alert, Resting Comfortably and Cooperative; No Acute Distress Eyes: PERRLA and EOMI ENT: Normal Inspection, Pharynx Normal and Oral Mucosa Moist; No Pharyngeal Erythema Skin: Color Normal and Warm, Dry; No Rash, Diaphoresis or Pallor Cardiovascular: Irregular Rhythm; No Click, Rub, Gallop or Murmur Lungs: Clear to Auscultate Bila and Good Air Entry; No Rales or Expiratory Wheezes Abdomen: Soft, Tender to palpation and Other (Abscess drain in place draining purulent fluid); No Rebound tender to palpat. Extremities: Activity as expected and Warm and Dry; No Cyanosis, Swelling or Edema Neurologic: A & O x3 and Other (Bilateral paraparesis) Psychological: Mood & Affect Normal Data Labs: 09/14/23 05:23 Phosphorus 2.2 L D Magnesium 2.2 09/14/23 05:23 WBC 18.2 H RBC 2.81 L Hgb 8.0 L Hct 24.1 L MCV 85.6 MCH 28.5 MCHC 33.3 RDW 16.2 H Plt Count 392 09/14/23 05:23 Sodium 132 L Potassium 3.1 L Chloride 98 L Carbon Dioxide 27 Anion Gap 7 BUN 17 Creatinine 0.57 L Calcium 7.20 L The last 24 hours of labs have been reviewed. Imaging: I have reviewed the diagnostic images in the EMR. Microbiology: Microbiology 09/13/23 16:06 Blood,Venous Blood Culture - Preliminary No growth after 1 day, cultures held 5 days. 09/13/23 15:55 Blood,Venous Blood Culture - Preliminary No growth after 1 day, cultures held 5 days. 09/13/23 05:00 Back Gram Stain - Final 09/13/23 05:00 Back Wound Culture - Preliminary Gram positive cocci- clusters 09/11/23 13:35 Blood,Venous Blood Culture - Preliminary Staphylococcus aureus 09/11/23 13:40 Blood,Venous - Final 09/11/23 13:40 Blood,Venous Blood Culture - Preliminary Staphylococcus aureus 09/08/23 15:46 Abdominal fluid Gram Stain - Final 09/08/23 15:46 Abdominal fluid Body Fluid Culture - Final Staphylococcus aureus 09/08/23 18:20 Blood,Venous - Final Test not indicated 09/08/23 18:20 Blood,Venous Blood Culture - Final Staphylococcus aureus Staphylococcus epidermidis Medications and Comanagement: Medications reviewed separately. Entered by: Troy Garber MD on 09/14/23927 Report Signed by: Troy Garber MD on 09/14/23 6225 <<Signature on File>> <Electronically signed by Troy Garber MD> Report Signed by: on [facility] Work Phone: [phone]) [phone] Progress note Author Troy Garber [facility] September 14, 2023 3:39pm Note Date/Time September 14, 2023 9 :29am [facility] Medical Records Patient: GEOVANNY MEJÍA1 Yumiko Suh. : 1970 [place], [place] [address] Location: [address] [place] [address] Unit #: [id number] Progress Note - Hospitalist Troy Garber MD Service Dt/Tm: 09/14/23927 Assessment/Plan Assessment/Plan (1) Abscess in epidural space of thoracic spine: Status: Acute Code(s): G06.1 - Intraspinal abscess and granuloma Plan: Status post hemilaminectomy T4-5 with evacuation of dorsal spinal epidural abscess; hemilaminectomy with transpedicular decompression T10 on the left side with evacuation of ventral spinal epidural abscess. Appreciate input by neurosurgery consult. ID consult following with further antibiotic recommendations. Closely monitor for improvement in the bilateral lower extremity weakness. (2) Staphylococcus aureus septicemia: Status: Acute Code(s): A41.01 - Sepsis due to Methicillin susceptible Staphylococcus aureus Plan: Infectious disease consult monitoring and managing antibiotics for the septicemia. (3) Intra-abdominal abscess: Status: Acute Code(s): K65.1 - Peritoneal abscess Plan: Patient has a left-sided retroperitoneal abscess, status post drain placement and repeat CT showing improvement. Continue to monitor closely, with ID consultfollowing and managing. Patient may benefit from general surgery input eventually. Antibiotic management as indicated above. (4) HTN (hypertension): Status: Acute Qualifiers: Hypertension type: primary hypertension Qualified Code(s): I10 - Essential (primary) hypertension Code(s): I10 - Essential (primary) hypertension Plan: Continue with home regimen of antihypertensive, however will monitor closely because of the infection for hypotensive episodes. (5) Asthma: Status: Acute Qualifiers: Asthma complication type: uncomplicated Asthma persistence: intermittent Asthma severity: mild Qualified Code(s): J45.20 - Mild intermittent asthma, uncomplicated Code(s): J45.909 - Unspecified asthma, uncomplicated Plan: Home medication regimen as resumed, will continue with supportive management. (6) Normocytic normochromic anemia: Status: Acute Code(s): D64.9 - Anemia, unspecified Plan: Unclear etiology, however in the setting of infection, would want the infection to be brought under control prior to replenishing the iron stores. We will be obtaining anemia work-up. (7) Hyponatremia: Status: Acute Code(s): E87.1 - Hypo-osmolality and hyponatremia Plan: Unclear duration, stable and asymptomatic. Patient will need further work-up. This could be hypovolemia from dehydration. (8) Severe protein-calorie malnutrition: Status: Acute Code(s): E43 - Unspecified severe protein-calorie malnutrition Plan: Patient has albumin of 2.7 and prealbumin of 5 signaling severe protein calorie malnutrition. Patient will therefore need dietary consult to assist in the management since she needs proteins for healing process. (9) Hypocalcemia: Status: Acute Code(s): E83.51 - Hypocalcemia Plan: Patient does have hypocalcemia and previous ionized calcium was low. This will be replenished accordingly. (10) Electrolyte imbalance: Status: Acute Code(s): E87.8 - Other disorders of electrolyte and fluid balance, not elsewhere classified Plan: Including but not limited to hypocalcemia, hypokalemia and hypophosphatemia. Electrolyte imbalance is being corrected per protocol and will be repeating labsthis p.m. and tomorrow morning. Plan Management as outlined, appreciate input by all consultants. Keep patient in- house overnight and monitor closely the bilateral lower extremity weakness for improvement. A.m. labs. Current Code Status & Diet: 09/08/23 13:19 Code Status Routine Resuscitation Status: Full Code Code Status Order Placed: Code Status Ordered 09/08/23 at 1321 09/13/23 08:00 Regular Diet Texture: Regular Fluid Restrictions?: No Consult Biomedical Photographer for Oral Supplements/Nourishments?: No Discussed Patient's Care With: Nurse and Case Management Subjective Subjective: Patient was seen and examined this morning, sitting up in a chair in no apparentdistress. Still cannot mobilize her lower extremities, however there is sensation intact especially on the left lower extremity. Pain is markedly improved. She denies any fever or chills. Multiple electrolyte imbalances including hypokalemia, hyponatremia, hypocalcemia and hypophosphatemia. Anemia work-up in progress. Patient Status & Estimated DC Date Patient Registration Status: Inpatient Objective Constitutional: Last Vital Signs Temp Pulse Resp BP Pulse Ox O2 Flow Rate 97.5 F L 81 16 103/51 L 93 2.0 09/14/23 08:54 09/14/23 08:54 09/14/23 08:55 09/14/23 08:54 09/14/23 08:55 09/14/23 08:54 Intake and Output 09/13/23 09/14/23 09/15/23 06:59 06:59 06:59 Intake Total 2288.96 3547.64 Output Total 2750 3800 Balance -461.04 -252.36 Admitting (IV Pump) Weight 83 kg Actual Weight (Kg) 83 kg General Appearance: Alert, Resting Comfortably and Cooperative; No Acute Distress Eyes: PERRLA and EOMI ENT: Normal Inspection, Pharynx Normal and Oral Mucosa Moist; No Pharyngeal Erythema Skin: Color Normal and Warm, Dry; No Rash, Diaphoresis or Pallor Cardiovascular: Irregular Rhythm; No Click, Rub, Gallop or Murmur Lungs: Clear to Auscultate Bila and Good Air Entry; No Rales or Expiratory Wheezes Abdomen: Soft, Tender to palpation and Other (Abscess drain in place draining purulent fluid); No Rebound tender to palpat. Extremities: Activity as expected and Warm and Dry; No Cyanosis, Swelling or Edema Neurologic: A & O x3 and Other (Bilateral paraparesis) Psychological: Mood & Affect Normal Data Labs: 09/14/23 05:23 Phosphorus 2.2 L D Magnesium 2.2 09/14/23 05:23 WBC 18.2 H RBC 2.81 L Hgb 8.0 L Hct 24.1 L MCV 85.6 MCH 28.5 MCHC 33.3 RDW 16.2 H Plt Count 392 09/14/23 05:23 Sodium 132 L Potassium 3.1 L Chloride 98 L Carbon Dioxide 27 Anion Gap 7 BUN 17 Creatinine 0.57 L Calcium 7.20 L The last 24 hours of labs have been reviewed. Imaging: I have reviewed the diagnostic images in the EMR. Microbiology: Microbiology 09/13/23 16:06 Blood,Venous Blood Culture - Preliminary No growth after 1 day, cultures held 5 days. 09/13/23 15:55 Blood,Venous Blood Culture - Preliminary No growth after 1 day, cultures held 5 days. 09/13/23 05:00 Back Gram Stain - Final 09/13/23 05:00 Back Wound Culture - Preliminary Gram positive cocci- clusters 09/11/23 13:35 Blood,Venous Blood Culture - Preliminary Staphylococcus aureus 09/11/23 13:40 Blood,Venous - Final 09/11/23 13:40 Blood,Venous Blood Culture - Preliminary Staphylococcus aureus 09/08/23 15:46 Abdominal fluid Gram Stain - Final 09/08/23 15:46 Abdominal fluid Body Fluid Culture - Final Staphylococcus aureus 09/08/23 18:20 Blood,Venous - Final Test not indicated 09/08/23 18:20 Blood,Venous Blood Culture - Final Staphylococcus aureus Staphylococcus epidermidis Medications and Comanagement: Medications reviewed separately. Entered by: Troy Garber MD on 09/14/23 0928 Report Signed by: Troy Garber MD on 09/14/23 1539 <<Signature on File>> <Electronically signed by Troy Garber MD> Report Signed by: on [facility] Work Phone: 1(793) 524-244810-22-2023 Progress note Author Noy Lechuga [facility] September 14, 2023 10:24am Note Date/Time September 14, 2023 7 :25am [facility] Medical Records Patient: GEOVANNY MEJÍA1 Yumiko Suh. : 1970 [place], [place] [address] Location: [phone] Unit #: [id number] Progress Note Surgical Justin Encinas [place] [place] JODIE Service Dt/Tm: 09/14/23 0725 Patient seen and examined independently by me.? Below discussed and I agree withthe note except where indicated.? See my additional comments below.? Labs, cultures, and radiographs where available were reviewed.? Changes were made in the orders as necessary.? I discussed patient concerns with the patient's nurse and instructions were given.? Please see our orders for the updated patient careplan. I was with the PA 100% time for the evaluation, examination and decision making of this patient. Assessment/Plan (1) Back pain: Status: Acute Qualifiers: Back pain laterality: unspecified Back pain location: low back pain Chronicity: acute Sciatica laterality: sciatica of right side Sciatica presence: with sciatica Qualified Code(s): M54.41 - Lumbago with sciatica, right side (2) Sciatica: Status: Acute Qualifiers: Laterality: unspecified laterality Qualified Code(s): M54.30 - Sciatica, unspecified side (3) Retroperitoneal abscess: Status: Acute Plan Hospitalist attending Surgery consulted -for intraabdominal abscess neurosurgery consulted OR 09/13/[address] Clemons for Epidural spinal Abscess drainage WBC Downtrending 18.2 from 33.0 Cares Per primary -BM/-Flatus will continue to monitor pt.'s WBC for resolve before signing off Subjective Date of Service: 09/14/23 Patient Information: GEOVANNY MEJÍA is a 53 yr old F who was admitted on 09/08/23 for INTRA ABDOMINAL ABCESS. Patient expresses concerns: No Patient states: denies Shortness of breath or Chest pain Pain control: Moderately controlled CAM Tool Confusion Assessment Method (CAM Tool) 1. Acute onset and fluctuating course Is there evidence of an acute change in mental status from the patient's baseline?: No Did the (abnormal) behavior fluctuate during the day, that is tend to come and go or increase and decrease in severity?: No 2. Inattention Did the patient have difficulty focusing attention, for example, being easily distractible or having difficulty keeping track of what was being said?: No 3. Disorganized Thinking Was the patient?s thinking disorganized or incoherent, such as rambling or irrelevant conversation, unclear or illogical flow of ideas, or unpredictable switching from subject to subject?: No 4. Altered Level Of Consciousness Would you rate the patient's level of consciousness as Vigilant (hyper alert), Lethargic (drowsy, easily aroused), Stupor (difficult to arouse), OR Coma (unarousable)?: No CAM Score Does the patient have a positive CAM score? (Yes to all questions under number 1and 2, and Yes to question 3 or 4): No PRISME Did you utilize the PRISME method to identify, rule-out, and treat the possible causation of dementia?: No Objective Vital Signs Last 48 hours: Vital Signs - 48 hr Temp Pulse Resp BP Pulse Ox O2 Flow Rate 09/14/23 04:50 16 93 09/13/23 21:16 2.0 09/14/23 02:02 16 95 09/13/23 23:08 16 95 09/13/23 17:53 16 94 09/13/23 16:30 3.0 09/13/23 08:35 81 18 96/53 L 95 4.5 09/13/23 08:20 82 14 97/54 L 94 5 09/13/23 08:05 82 13 100/63 98 10 09/13/23 07:50 84 16 98/61 95 10 09/13/23 07:35 84 20 90/54 L 94 10 09/13/23 07:20 82 27 H 109/66 93 10 09/13/23 07:15 86 20 114/61 95 10 09/13/23 07:10 82 19 127/71 95 10 09/13/23 07:05 98.4 F 82 29 H 117/69 93 10 09/13/23 07:15 81 24 H 95 09/13/23 09:23 4.0 09/13/23 09:08 93 3 09/12/23 21:30 2.0 09/12/23 07:45 2.0 09/12/23 19:12 2 09/14/23 03:15 97.6 F 76 16 95/58 L 93 2.0 09/13/23 21:16 97.7 F 86 16 113/66 95 2.0 09/13/23 16:32 97.5 F L 82 16 112/61 95 3.0 09/13/23 15:00 84 102/55 L 09/13/23 13:08 87 93/49 L 90 09/13/23 14:01 86 98/56 L 93 09/13/23 14:11 97.8 F 86 16 98/56 L 92 3.0 09/13/23 12:12 97.5 F L 85 16 105/64 93 2.0 09/13/23 10:32 97.7 F 78 109/63 93 2.0 09/13/23 10:32 97.7 F 77 113/64 92 2.0 09/13/23 12:12 97.5 F L 85 16 105/64 93 2.0 09/13/23 09:31 97.7 F 75 16 121/78 96 4.0 09/13/23 09:20 77 16 121/78 91 4.0 09/13/23 09:47 76 16 121/78 89 4.0 09/13/23 09:48 77 16 110/76 90 4.0 09/13/23 10:00 74 106/68 93 09/13/23 10:15 75 114/66 93 09/13/23 10:30 71 113/64 09/13/23 10:32 97.7 F 71 113/64 2.0 09/13/23 09:03 97.7 F 79 104/54 L 95 09/13/23 09:17 97.7 F 76 116/74 95 09/13/23 09:20 97.7 F 79 16 116/74 95 4.0 09/13/23 01:39 101.4 F H 103 H 94 09/12/23 19:53 97.5 F L 102 H 18 120/71 98 2.0 09/12/23 16:22 99.6 F 104 H 20 118/67 92 2.0 09/12/23 12:34 98.5 F 98 16 118/66 93 09/12/23 07:42 98.9 F 103 H 20 134/66 94 2.0 Vital Signs (Last Set): Vital Signs - Last Set Temperature 97.6 F 09/14/23 03:15 Pulse Rate 76 09/14/23 03:15 Respiratory Rate 16 09/14/23 04:50 Blood Pressure 95/58 L 10/22/23 03:15 Oxygen Saturation% 93 09/14/23 04:50 Liters of Oxygen 2.0 09/14/23 03:15 Patient is: Afebrile Intake/Output totals: Intake & Output 09/13/23 09/14/23 09/14/23 22:59 06:59 14:59 Intake Total 1281.69 1115.45 Output Total 700 1000 Balance 581.69 115.45 Intake: IV Intake (ml) 921.69 615.45 PO Intake (ml) 360 500 Output: Indwelling Urinary Catheter 700 1000 Output (ml) I/O: Equals output General Appearance: Positive Alert, Resting Comfortably and Cooperative; Negative Acute Distress HEENT: Positive Normal Inspection and EOMI Skin: Positive Color Normal and Warm, Dry Neck: Positive Normal Inspection Cardiovascular: Positive Regular Rate and Rhythm Lungs: Negative Respiratory Distress or Adventitial Sounds Abdomen: Positive Soft and Tender to palpation (mildly); Negative BM or Flatus Extremities: Positive Activity as expected; Negative Swelling or Edema Neurologic: Positive Grossly Intact, Moves all extremities and A & O x3 Psychological: Positive Mood & Affect Normal Lab Results: 09/14/23 05:23 09/14/23 05:23 Laboratory Results - last 24 hr 09/14/23 09/13/23 09/13/23 05:23 08:51 08:51 WBC 18.2 H RBC 2.81 L Hgb 8.0 L Hct 24.1 L MCV 85.6 MCH 28.5 MCHC 33.3 RDW 16.2 H Plt Count 392 Neut % (Auto) Lymph % (Auto) Graham % (Auto) Eos % (Auto) Baso % (Auto) Nucleat RBC Rel Count Absolute Neuts (auto) Absolute Lymphs (auto) Absolute Monos (auto) Absolute Eos (auto) Absolute Basos (auto) Neutrophils % (Manual) 81.0 H Band Neutrophils % 4.0 Lymphocytes % (Manual) 13.0 L Monocytes % (Manual) 2.0 Abs Neuts (Manual) 82511 H Abs Lymphs (Manual) 2366 Abs Monocytes (Manual) 364 Absolute Eos (Manual) 0 Abs Basophils (Manual) 0 Target Cells Slight RBC Morph Comment Test not indicated ESR 83 H Sodium 132 L Potassium 3.1 L Chloride 98 L Carbon Dioxide 27 Anion Gap 7 BUN 17 Creatinine 0.57 L GFR Calculation > 60 Random Glucose 146 H Calcium 7.20 L 7.60 L Phosphorus 2.2 L D 4.5 Magnesium 2.2 2.3 2.3 C-Reactive Protein 10.9 H 15.9 H Albumin 2.3 L 2.7 L Prealbumin 5.0 L Procalcitonin 0.74 H Random Vancomycin 6.0 L 09/13/23 09/13/23 09/13/23 08:51 08:51 08:51 WBC RBC Hgb Hct MCV MCH MCHC RDW Plt Count Neut % (Auto) Lymph % (Auto) Graham % (Auto) Eos % (Auto) Baso % (Auto) Nucleat RBC Rel Count Absolute Neuts (auto) Absolute Lymphs (auto) Absolute Monos (auto) Absolute Eos (auto) Absolute Basos (auto) Neutrophils % (Manual) Band Neutrophils % Lymphocytes % (Manual) Monocytes % (Manual) Abs Neuts (Manual) Abs Lymphs (Manual) Abs Monocytes (Manual) Absolute Eos (Manual) Abs Basophils (Manual) Target Cells RBC Morph Comment ESR Sodium Potassium Chloride Carbon Dioxide Anion Gap BUN Creatinine 0.72 GFR Calculation > 60 > 60 Random Glucose 189 H 189 H Calcium 7.60 L Phosphorus Magnesium C-Reactive Protein Albumin Prealbumin Procalcitonin Random Vancomycin 09/13/23 09/13/23 09/13/23 08:51 08:51 08:51 WBC RBC Hgb Hct MCV MCH MCHC RDW Plt Count Neut % (Auto) Lymph % (Auto) Graham % (Auto) Eos % (Auto) Baso % (Auto) Nucleat RBC Rel Count Absolute Neuts (auto) Absolute Lymphs (auto) Absolute Monos (auto) Absolute Eos (auto) Absolute Basos (auto) Neutrophils % (Manual) Band Neutrophils % Lymphocytes % (Manual) Monocytes % (Manual) Abs Neuts (Manual) Abs Lymphs (Manual) Abs Monocytes (Manual) Absolute Eos (Manual) Abs Basophils (Manual) Target Cells RBC Morph Comment ESR Sodium Potassium Chloride Carbon Dioxide 26 Anion Gap 9 8 BUN 21 H 21 H Creatinine 0.74 GFR Calculation Random Glucose Calcium Phosphorus Magnesium C-Reactive Protein Albumin Prealbumin Procalcitonin Random Vancomycin 09/13/23 09/13/23 09/13/23 08:51 08:51 08:51 WBC RBC Hgb Hct MCV MCH MCHC RDW Plt Count Neut % (Auto) Lymph % (Auto) Graham % (Auto) Eos % (Auto) Baso % (Auto) Nucleat RBC Rel Count Absolute Neuts (auto) Absolute Lymphs (auto) Absolute Monos (auto) Absolute Eos (auto) Absolute Basos (auto) Neutrophils % (Manual) Band Neutrophils % Lymphocytes % (Manual) Monocytes % (Manual) Abs Neuts (Manual) Abs Lymphs (Manual) Abs Monocytes (Manual) Absolute Eos (Manual) Abs Basophils (Manual) Target Cells RBC Morph Comment ESR Sodium 130 L Potassium 3.8 3.8 Chloride 95 L 95 L Carbon Dioxide 26 Anion Gap BUN Creatinine GFR Calculation Random Glucose Calcium Phosphorus Magnesium C-Reactive Protein Albumin Prealbumin Procalcitonin Random Vancomycin 09/13/23 08:51 WBC 33.0 H RBC 3.01 L Hgb 8.5 L Hct 25.8 L MCV 85.6 MCH 28.2 MCHC 32.9 L RDW 16.1 H Plt Count 289 Neut % (Auto) 95.6 H Lymph % (Auto) 2.9 L Graham % (Auto) 1.4 L Eos % (Auto) 0.0 Baso % (Auto) 0.1 Nucleat RBC Rel Count 0.0 Absolute Neuts (auto) 62654 H Absolute Lymphs (auto) 1000 Absolute Monos (auto) 500 Absolute Eos (auto) 0 Absolute Basos (auto) 0 Neutrophils % (Manual) Band Neutrophils % Lymphocytes % (Manual) Monocytes % (Manual) Abs Neuts (Manual) Abs Lymphs (Manual) Abs Monocytes (Manual) Absolute Eos (Manual) Abs Basophils (Manual) Target Cells Slight RBC Morph Comment Test not indicated ESR 98 H Sodium 129 L Potassium Chloride Carbon Dioxide Anion Gap BUN Creatinine GFR Calculation Random Glucose Calcium Phosphorus Magnesium C-Reactive Protein Albumin Prealbumin Procalcitonin Random Vancomycin Microbiology 09/11/23 13:35 Blood,Venous Blood Culture - Preliminary Staphylococcus aureus 09/13/23 05:00 Back Gram Stain - Final 09/11/23 13:40 Blood,Venous - Final 09/11/23 13:40 Blood,Venous Blood Culture - Preliminary Staphylococcus aureus 09/08/23 15:46 Abdominal fluid Gram Stain - Final 09/08/23 15:46 Abdominal fluid Body Fluid Culture - Final Staphylococcus aureus 09/08/23 18:20 Blood,Venous - Final Test not indicated 09/08/23 18:20 Blood,Venous Blood Culture - Final Staphylococcus aureus Staphylococcus epidermidis Entered by: Justin Encinas ([facility] [place] Donaldson on 09/14/23724 Report Signed by: Justin PerezDR[facility]RIGHT [facility] DRUMRIGHT[facility]ika Encinas PA-C on 09/14/23 1019 <<Signature on File>> <Electronically signed by Justin PerezDR[facility] DRUMRIGHT[facility]ika FELICIANO> Report Signed by: Noy Lechuga MD on 09/14/23 1024 <<Signature on File>> <Electronically signed by Noy Lechuga MD> [facility] Work Phone: 1(411) 781-919810-22-2023 Progress note Author Noy Lechuga [facility] September 14, 2023 10:24am Note Date/Time September 14, 2023 7 :25am [facility] Medical Records Patient: GEOVANNY MEJÍA1 Yum[address] Suh. : 1970 [place], [place] [address] Location: [address] [place] [address] Unit #: [id number] Progress Note Surgical [facility] JODIE Service Dt/Tm: 09/14/23724 Patient seen and examined independently by me.? Below discussed and I agree withthe note except where indicated.? See my additional comments below.? Labs, cultures, and radiographs where available were reviewed.? Changes were made in the orders as necessary.? I discussed patient concerns with the patient's nurse and instructions were given.? Please see our orders for the updated patient careplan. I was with the PA 100% time for the evaluation, examination and decision making of this patient. Assessment/Plan (1) Back pain: Status: Acute Qualifiers: Back pain laterality: unspecified Back pain location: low back pain Chronicity: acute Sciatica laterality: sciatica of right side Sciatica presence: with sciatica Qualified Code(s): M54.41 - Lumbago with sciatica, right side (2) Sciatica: Status: Acute Qualifiers: Laterality: unspecified laterality Qualified Code(s): M54.30 - Sciatica, unspecified side (3) Retroperitoneal abscess: Status: Acute Plan Hospitalist attending Surgery consulted -for intraabdominal abscess neurosurgery consulted OR 09/13/[address] Clemons for Epidural spinal Abscess drainage WBC Downtrending 18.2 from 33.0 Cares Per primary -BM/-Flatus will continue to monitor pt.'s WBC for resolve before signing off Subjective Date of Service: 09/14/23 Patient Information: GEOVANNY MEJÍA is a 53 yr old F who was admitted on 09/08/23 for INTRA ABDOMINAL ABCESS. Patient expresses concerns: No Patient states: denies Shortness of breath or Chest pain Pain control: Moderately controlled CAM Tool Confusion Assessment Method (CAM Tool) 1. Acute onset and fluctuating course Is there evidence of an acute change in mental status from the patient's baseline?: No Did the (abnormal) behavior fluctuate during the day, that is tend to come and go or increase and decrease in severity?: No 2. Inattention Did the patient have difficulty focusing attention, for example, being easily distractible or having difficulty keeping track of what was being said?: No 3. Disorganized Thinking Was the patient?s thinking disorganized or incoherent, such as rambling or irrelevant conversation, unclear or illogical flow of ideas, or unpredictable switching from subject to subject?: No 4. Altered Level Of Consciousness Would you rate the patient's level of consciousness as Vigilant (hyper alert), Lethargic (drowsy, easily aroused), Stupor (difficult to arouse), OR Coma (unarousable)?: No CAM Score Does the patient have a positive CAM score? (Yes to all questions under number 1and 2, and Yes to question 3 or 4): No PRISME Did you utilize the PRISME method to identify, rule-out, and treat the possible causation of dementia?: No Objective Vital Signs Last 48 hours: Vital Signs - 48 hr Temp Pulse Resp BP Pulse Ox O2 Flow Rate 09/14/23 04:50 16 93 09/13/23 21:16 2.0 09/14/23 02:02 16 95 09/13/23 23:08 16 95 09/13/23 17:53 16 94 09/13/23 16:30 3.0 09/13/23 08:35 81 18 96/53 L 95 4.5 09/13/23 08:20 82 14 97/54 L 94 5 09/13/23 08:05 82 13 100/63 98 10 09/13/23 07:50 84 16 98/61 95 10 09/13/23 07:35 84 20 90/54 L 94 10 09/13/23 07:20 82 27 H 109/66 93 10 09/13/23 07:15 86 20 114/61 95 10 09/13/23 07:10 82 19 127/71 95 10 09/13/23 07:05 98.4 F 82 29 H 117/69 93 10 09/13/23 07:15 81 24 H 95 09/13/23 09:23 4.0 09/13/23 09:08 93 3 09/12/23 21:30 2.0 09/12/23 07:45 2.0 09/12/23 19:12 2 09/14/23 03:15 97.6 F 76 16 95/58 L 93 2.0 09/13/23 21:16 97.7 F 86 16 113/66 95 2.0 09/13/23 16:32 97.5 F L 82 16 112/61 95 3.0 09/13/23 15:00 84 102/55 L 09/13/23 13:08 87 93/49 L 90 09/13/23 14:01 86 98/56 L 93 09/13/23 14:11 97.8 F 86 16 98/56 L 92 3.0 09/13/23 12:12 97.5 F L 85 16 105/64 93 2.0 09/13/23 10:32 97.7 F 78 109/63 93 2.0 09/13/23 10:32 97.7 F 77 113/64 92 2.0 09/13/23 12:12 97.5 F L 85 16 105/64 93 2.0 09/13/23 09:31 97.7 F 75 16 121/78 96 4.0 09/13/23 09:20 77 16 121/78 91 4.0 09/13/23 09:47 76 16 121/78 89 4.0 09/13/23 09:48 77 16 110/76 90 4.0 09/13/23 10:00 74 106/68 93 09/13/23 10:15 75 114/66 93 09/13/23 10:30 71 113/64 09/13/23 10:32 97.7 F 71 113/64 2.0 09/13/23 09:03 97.7 F 79 104/54 L 95 09/13/23 09:17 97.7 F 76 116/74 95 09/13/23 09:20 97.7 F 79 16 116/74 95 4.0 09/13/23 01:39 101.4 F H 103 H 94 09/12/23 19:53 97.5 F L 102 H 18 120/71 98 2.0 09/12/23 16:22 99.6 F 104 H 20 118/67 92 2.0 09/12/23 12:34 98.5 F 98 16 118/66 93 09/12/23 07:42 98.9 F 103 H 20 134/66 94 2.0 Vital Signs (Last Set): Vital Signs - Last Set Temperature 97.6 F 09/14/23 03:15 Pulse Rate 76 09/14/23 03:15 Respiratory Rate 16 09/14/23 04:50 Blood Pressure 95/58 L 09/14/23 03:15 Oxygen Saturation% 93 09/14/23 04:50 Liters of Oxygen 2.0 09/14/23 03:15 Patient is: Afebrile Intake/Output totals: Intake & Output 09/13/23 09/14/23 09/14/23 22:59 06:59 14:59 Intake Total 1281.69 1115.45 Output Total 700 1000 Balance 581.69 115.45 Intake: IV Intake (ml) 921.69 615.45 PO Intake (ml) 360 500 Output: Indwelling Urinary Catheter 700 1000 Output (ml) I/O: Equals output General Appearance: Positive Alert, Resting Comfortably and Cooperative; Negative Acute Distress HEENT: Positive Normal Inspection and EOMI Skin: Positive Color Normal and Warm, Dry Neck: Positive Normal Inspection Cardiovascular: Positive Regular Rate and Rhythm Lungs: Negative Respiratory Distress or Adventitial Sounds Abdomen: Positive Soft and Tender to palpation (mildly); Negative BM or Flatus Extremities: Positive Activity as expected; Negative Swelling or Edema Neurologic: Positive Grossly Intact, Moves all extremities and A & O x3 Psychological: Positive Mood & Affect Normal Lab Results: 09/14/23 05:23 09/14/23 05:23 Laboratory Results - last 24 hr 09/14/23 09/13/23 09/13/23 05:23 08:51 08:51 WBC 18.2 H RBC 2.81 L Hgb 8.0 L Hct 24.1 L MCV 85.6 MCH 28.5 MCHC 33.3 RDW 16.2 H Plt Count 392 Neut % (Auto) Lymph % (Auto) Graham % (Auto) Eos % (Auto) Baso % (Auto) Nucleat RBC Rel Count Absolute Neuts (auto) Absolute Lymphs (auto) Absolute Monos (auto) Absolute Eos (auto) Absolute Basos (auto) Neutrophils % (Manual) 81.0 H Band Neutrophils % 4.0 Lymphocytes % (Manual) 13.0 L Monocytes % (Manual) 2.0 Abs Neuts (Manual) 98096 H Abs Lymphs (Manual) 2366 Abs Monocytes (Manual) 364 Absolute Eos (Manual) 0 Abs Basophils (Manual) 0 Target Cells Slight RBC Morph Comment Test not indicated ESR 83 H Sodium 132 L Potassium 3.1 L Chloride 98 L Carbon Dioxide 27 Anion Gap 7 BUN 17 Creatinine 0.57 L GFR Calculation > 60 Random Glucose 146 H Calcium 7.20 L 7.60 L Phosphorus 2.2 L D 4.5 Magnesium 2.2 2.3 2.3 C-Reactive Protein 10.9 H 15.9 H Albumin 2.3 L 2.7 L Prealbumin 5.0 L Procalcitonin 0.74 H Random Vancomycin 6.0 L 09/13/23 09/13/23 09/13/23 08:51 08:51 08:51 WBC RBC Hgb Hct MCV MCH MCHC RDW Plt Count Neut % (Auto) Lymph % (Auto) Graham % (Auto) Eos % (Auto) Baso % (Auto) Nucleat RBC Rel Count Absolute Neuts (auto) Absolute Lymphs (auto) Absolute Monos (auto) Absolute Eos (auto) Absolute Basos (auto) Neutrophils % (Manual) Band Neutrophils % Lymphocytes % (Manual) Monocytes % (Manual) Abs Neuts (Manual) Abs Lymphs (Manual) Abs Monocytes (Manual) Absolute Eos (Manual) Abs Basophils (Manual) Target Cells RBC Morph Comment ESR Sodium Potassium Chloride Carbon Dioxide Anion Gap BUN Creatinine 0.72 GFR Calculation > 60 > 60 Random Glucose 189 H 189 H Calcium 7.60 L Phosphorus Magnesium C-Reactive Protein Albumin Prealbumin Procalcitonin Random Vancomycin 09/13/23 09/13/23 09/13/23 08:51 08:51 08:51 WBC RBC Hgb Hct MCV MCH MCHC RDW Plt Count Neut % (Auto) Lymph % (Auto) Graham % (Auto) Eos % (Auto) Baso % (Auto) Nucleat RBC Rel Count Absolute Neuts (auto) Absolute Lymphs (auto) Absolute Monos (auto) Absolute Eos (auto) Absolute Basos (auto) Neutrophils % (Manual) Band Neutrophils % Lymphocytes % (Manual) Monocytes % (Manual) Abs Neuts (Manual) Abs Lymphs (Manual) Abs Monocytes (Manual) Absolute Eos (Manual) Abs Basophils (Manual) Target Cells RBC Morph Comment ESR Sodium Potassium Chloride Carbon Dioxide 26 Anion Gap 9 8 BUN 21 H 21 H Creatinine 0.74 GFR Calculation Random Glucose Calcium Phosphorus Magnesium C-Reactive Protein Albumin Prealbumin Procalcitonin Random Vancomycin 09/13/23 09/13/23 09/13/23 08:51 08:51 08:51 WBC RBC Hgb Hct MCV MCH MCHC RDW Plt Count Neut % (Auto) Lymph % (Auto) Graham % (Auto) Eos % (Auto) Baso % (Auto) Nucleat RBC Rel Count Absolute Neuts (auto) Absolute Lymphs (auto) Absolute Monos (auto) Absolute Eos (auto) Absolute Basos (auto) Neutrophils % (Manual) Band Neutrophils % Lymphocytes % (Manual) Monocytes % (Manual) Abs Neuts (Manual) Abs Lymphs (Manual) Abs Monocytes (Manual) Absolute Eos (Manual) Abs Basophils (Manual) Target Cells RBC Morph Comment ESR Sodium 130 L Potassium 3.8 3.8 Chloride 95 L 95 L Carbon Dioxide 26 Anion Gap BUN Creatinine GFR Calculation Random Glucose Calcium Phosphorus Magnesium C-Reactive Protein Albumin Prealbumin Procalcitonin Random Vancomycin 09/13/23 08:51 WBC 33.0 H RBC 3.01 L Hgb 8.5 L Hct 25.8 L MCV 85.6 MCH 28.2 MCHC 32.9 L RDW 16.1 H Plt Count 289 Neut % (Auto) 95.6 H Lymph % (Auto) 2.9 L Graham % (Auto) 1.4 L Eos % (Auto) 0.0 Baso % (Auto) 0.1 Nucleat RBC Rel Count 0.0 Absolute Neuts (auto) 15502 H Absolute Lymphs (auto) 1000 Absolute Monos (auto) 500 Absolute Eos (auto) 0 Absolute Basos (auto) 0 Neutrophils % (Manual) Band Neutrophils % Lymphocytes % (Manual) Monocytes % (Manual) Abs Neuts (Manual) Abs Lymphs (Manual) Abs Monocytes (Manual) Absolute Eos (Manual) Abs Basophils (Manual) Target Cells Slight RBC Morph Comment Test not indicated ESR 98 H Sodium 129 L Potassium Chloride Carbon Dioxide Anion Gap BUN Creatinine GFR Calculation Random Glucose Calcium Phosphorus Magnesium C-Reactive Protein Albumin Prealbumin Procalcitonin Random Vancomycin Microbiology 09/11/23 13:35 Blood,Venous Blood Culture - Preliminary Staphylococcus aureus 09/13/23 05:00 Back Gram Stain - Final 09/11/23 13:40 Blood,Venous - Final 09/11/23 13:40 Blood,Venous Blood Culture - Preliminary Staphylococcus aureus 09/08/23 15:46 Abdominal fluid Gram Stain - Final 09/08/23 15:46 Abdominal fluid Body Fluid Culture - Final Staphylococcus aureus 09/08/23 18:20 Blood,Venous - Final Test not indicated 09/08/23 18:20 Blood,Venous Blood Culture - Final Staphylococcus aureus Staphylococcus epidermidis Entered by: Justin [facility]JODIE on 09/14/23 0725 Report Signed by: Justin PerezDR[facility]ika Encinas PA-C on 09/14/23 1019 <<Signature on File>> <Electronically signed by Justin [facility]DR[facility] JODIE> Report Signed by: Noy Lechuga MD on 09/14/23 1024 <<Signature on File>> <Electronically signed by Noy Lechuga MD> [facility] Work Phone: 1(892) 863-173710-21-2023 Progress note Author Noy Lechuga [facility] September 13, 2023 5:35pm Note Date/Time September 13, 2023 1 0:30am [facility] Medical Records Patient: GEOVANNY MEJÍA [address] : 1970 [place], [place] [address] Location: [phone] Unit #: [id number] Progress Note Surgical [facility] JODIE Service Dt/Tm: 09/13/23 1030 Patient seen and examined independently by me.? Below discussed and I agree withthe note except where indicated.? See my additional comments below.? Labs, cultures, and radiographs where available were reviewed.? Changes were made in the orders as necessary.? I discussed patient concerns with the patient's nurse and instructions were given.? Please see our orders for the updated patient careplan. I was with the PA 100% time for the evaluation, examination and decision making of this patient. Assessment/Plan (1) Back pain: Status: Acute Qualifiers: Back pain laterality: unspecified Back pain location: low back pain Chronicity: acute Sciatica laterality: sciatica of right side Sciatica presence: with sciatica Qualified Code(s): M54.41 - Lumbago with sciatica, right side (2) Sciatica: Status: Acute Qualifiers: Laterality: unspecified laterality Qualified Code(s): M54.30 - Sciatica, unspecified side (3) Retroperitoneal abscess: Status: Acute Plan Hospitalist attending Surgery consulted neurosurgery consulkted OR this AM with Dr. Clemons for Epidural spinal Abscess WBC trending up, however CT scan shows continued improvement of intraabdominal abscess Will allow medicine/ID to manage WBC No surgical intervention needed for infection control Regular diet -flatus/-BM Will continue to follow Subjective Date of Service: 09/13/23 Patient Information: GEOVANNY MEJÍA is a 53 yr old F who was admitted on 09/08/23 for INTRA ABDOMINAL ABCESS. Patient expresses concerns: No Patient states: denies Shortness of breath or Chest pain Pain control: Moderately controlled CAM Tool Confusion Assessment Method (CAM Tool) 1. Acute onset and fluctuating course Is there evidence of an acute change in mental status from the patient's baseline?: No Did the (abnormal) behavior fluctuate during the day, that is tend to come and go or increase and decrease in severity?: No 2. Inattention Did the patient have difficulty focusing attention, for example, being easily distractible or having difficulty keeping track of what was being said?: No 3. Disorganized Thinking Was the patient?s thinking disorganized or incoherent, such as rambling or irrelevant conversation, unclear or illogical flow of ideas, or unpredictable switching from subject to subject?: No 4. Altered Level Of Consciousness Would you rate the patient's level of consciousness as Vigilant (hyper alert), Lethargic (drowsy, easily aroused), Stupor (difficult to arouse), OR Coma (unarousable)?: No CAM Score Does the patient have a positive CAM score? (Yes to all questions under number 1and 2, and Yes to question 3 or 4): No Objective Vital Signs Last 48 hours: Vital Signs - 48 hr Temp Pulse Resp BP Pulse Ox O2 Flow Rate 09/13/23 07:15 81 24 H 95 09/13/23 09:23 4.0 09/13/23 09:08 93 3 09/12/23 21:30 2.0 09/12/23 07:45 2.0 09/12/23 19:12 2 09/11/23 20:00 2 09/11/23 10:45 2 09/13/23 09:03 97.7 F 79 104/54 L 95 09/13/23 09:17 97.7 F 76 116/74 95 09/13/23 09:20 97.7 F 79 16 116/74 95 4.0 09/13/23 01:39 101.4 F H 103 H 94 09/12/23 19:53 97.5 F L 102 H 18 120/71 98 2.0 09/12/23 16:22 99.6 F 104 H 20 118/67 92 2.0 09/12/23 12:34 98.5 F 98 16 118/66 93 09/12/23 07:42 98.9 F 103 H 20 134/66 94 2.0 09/12/23 06:17 98.8 F 101 H 20 119/69 91 09/11/23 21:44 98.3 F 104 H 20 148/80 H 94 2.0 09/11/23 15:39 100.7 F H 107 H 18 130/66 95 2.0 09/11/23 12:14 98.2 F 104 H 20 139/104 H 95 2.0 Vital Signs (Last Set): Vital Signs - Last Set Temperature 97.7 F 09/13/23 09:20 Pulse Rate 79 09/13/23 09:20 Respiratory Rate 16 09/13/23 09:20 Blood Pressure 116/74 09/13/23 09:20 Oxygen Saturation% 95 09/13/23 09:20 Liters of Oxygen 4.0 09/13/23 09:23 Patient is: Afebrile Intake/Output totals: Intake & Output 09/12/23 09/13/23 09/13/23 22:59 06:59 14:59 Intake Total 1330.42 Output Total 550 300 150 Balance 780.42 -300 -150 Actual Weight (Kg) 83 kg Intake: IV Intake (ml) 1030.42 PO Intake (ml) 300 Output: Indwelling Urinary Catheter 550 300 150 Output (ml) Other: Anesthesia IV Fluids (ml) 1,800 Albumin (ml's) 250 Number of Stools 0 Dinner % 100 I/O: Equals output General Appearance: Positive Alert, Resting Comfortably and Cooperative; Negative Acute Distress HEENT: Positive Normal Inspection and EOMI Skin: Positive Color Normal and Warm, Dry Neck: Positive Normal Inspection Cardiovascular: Positive Regular Rate and Rhythm Lungs: Negative Respiratory Distress or Adventitial Sounds Abdomen: Positive Soft and Tender to palpation (mildly); Negative BM or Flatus Extremities: Positive Activity as expected and Warm and Dry; Negative Swelling Neurologic: Positive Grossly Intact, Moves all extremities and A & O x3 Psychological: Positive Mood & Affect Normal Lab Results: 09/13/23 08:51 09/13/23 08:51 Laboratory Results - last 24 hr 09/13/23 09/13/23 09/13/23 08:51 08:51 08:51 WBC RBC Hgb Hct MCV MCH MCHC RDW Plt Count Neut % (Auto) Lymph % (Auto) Graham % (Auto) Eos % (Auto) Baso % (Auto) Nucleat RBC Rel Count Absolute Neuts (auto) Absolute Lymphs (auto) Absolute Monos (auto) Absolute Eos (auto) Absolute Basos (auto) Target Cells RBC Morph Comment ESR PT INR Sodium Potassium Chloride Carbon Dioxide Anion Gap BUN Creatinine GFR Calculation Random Glucose 189 H Calcium 7.60 L 7.60 L Ionized Calcium Phosphorus 4.5 Magnesium 2.3 2.3 C-Reactive Protein 15.9 H Albumin 2.7 L Prealbumin 5.0 L Procalcitonin 0.74 H Random Vancomycin 6.0 L Slides for Path Review Blood Type Indirect Antiglob Test 09/13/23 09/13/23 09/13/23 08:51 08:51 08:51 WBC RBC Hgb Hct MCV MCH MCHC RDW Plt Count Neut % (Auto) Lymph % (Auto) Graham % (Auto) Eos % (Auto) Baso % (Auto) Nucleat RBC Rel Count Absolute Neuts (auto) Absolute Lymphs (auto) Absolute Monos (auto) Absolute Eos (auto) Absolute Basos (auto) Target Cells RBC Morph Comment ESR PT INR Sodium Potassium Chloride Carbon Dioxide Anion Gap BUN 21 H Creatinine 0.72 0.74 GFR Calculation > 60 > 60 Random Glucose 189 H Calcium Ionized Calcium Phosphorus Magnesium C-Reactive Protein Albumin Prealbumin Procalcitonin Random Vancomycin Slides for Path Review Blood Type Indirect Antiglob Test 09/13/23 09/13/23 09/13/23 08:51 08:51 08:51 WBC RBC Hgb Hct MCV MCH MCHC RDW Plt Count Neut % (Auto) Lymph % (Auto) Graham % (Auto) Eos % (Auto) Baso % (Auto) Nucleat RBC Rel Count Absolute Neuts (auto) Absolute Lymphs (auto) Absolute Monos (auto) Absolute Eos (auto) Absolute Basos (auto) Target Cells RBC Morph Comment ESR PT INR Sodium Potassium Chloride 95 L Carbon Dioxide 26 26 Anion Gap 9 8 BUN 21 H Creatinine GFR Calculation Random Glucose Calcium Ionized Calcium Phosphorus Magnesium C-Reactive Protein Albumin Prealbumin Procalcitonin Random Vancomycin Slides for Path Review Blood Type Indirect Antiglob Test 09/13/23 09/13/23 09/13/23 08:51 08:51 08:51 WBC 33.0 H RBC 3.01 L Hgb 8.5 L Hct 25.8 L MCV 85.6 MCH 28.2 MCHC 32.9 L RDW 16.1 H Plt Count 289 Neut % (Auto) 95.6 H Lymph % (Auto) 2.9 L Graham % (Auto) 1.4 L Eos % (Auto) 0.0 Baso % (Auto) 0.1 Nucleat RBC Rel Count 0.0 Absolute Neuts (auto) 78142 H Absolute Lymphs (auto) 1000 Absolute Monos (auto) 500 Absolute Eos (auto) 0 Absolute Basos (auto) 0 Target Cells Slight RBC Morph Comment Test not indicated ESR 98 H PT INR Sodium 130 L 129 L Potassium 3.8 3.8 Chloride 95 L Carbon Dioxide Anion Gap BUN Creatinine GFR Calculation Random Glucose Calcium Ionized Calcium Phosphorus Magnesium C-Reactive Protein Albumin Prealbumin Procalcitonin Random Vancomycin Slides for Path Review Blood Type Indirect Antiglob Test 09/13/23 09/12/23 09/12/23 00:49 14:08 03:59 WBC RBC Hgb Hct MCV MCH MCHC RDW Plt Count Neut % (Auto) Lymph % (Auto) Graham % (Auto) Eos % (Auto) Baso % (Auto) Nucleat RBC Rel Count Absolute Neuts (auto) Absolute Lymphs (auto) Absolute Monos (auto) Absolute Eos (auto) Absolute Basos (auto) Target Cells RBC Morph Comment ESR PT 18.5 H INR 1.59 H Sodium Potassium Chloride Carbon Dioxide Anion Gap BUN Creatinine GFR Calculation Random Glucose Calcium Ionized Calcium 1.07 L Phosphorus Magnesium C-Reactive Protein Albumin Prealbumin Procalcitonin Random Vancomycin Slides for Path Review Cancelled Blood Type O Positive Indirect Antiglob Test NEGATIVE Microbiology 09/11/23 13:35 Blood,Venous Blood Culture - Preliminary Staphylococcus aureus 09/11/23 13:40 Blood,Venous - Final 09/11/23 13:40 Blood,Venous Blood Culture - Preliminary Staphylococcus aureus 09/08/23 15:46 Abdominal fluid Gram Stain - Final 09/08/23 15:46 Abdominal fluid Body Fluid Culture - Final Staphylococcus aureus 09/08/23 18:20 Blood,Venous - Final Test not indicated 09/08/23 18:20 Blood,Venous Blood Culture - Final Staphylococcus aureus Staphylococcus epidermidis Entered by: Justin [facility]JODIE on 09/13/23 1030 Report Signed by: Justin PerezDR[facility] – DRUMRIGHTAniak Encinas PA-C on 09/13/23 1619 <<Signature on File>> <Electronically signed by Justin [facility]DR[facility] JODIE> Report Signed by: Noy Lechuga MD on 09/13/23 173 <<Signature on File>> <Electronically signed by Noy Lechuga MD> [facility] Work Phone: [phone]) 264-138910-21-2023 Progress note Author Noy Lechuga [facility] September 13, 2023 5:35pm Note Date/Time September 13, 2023 1 0:30am [facility] Medical Records Patient: GEOVANNY MEJÍA [address] : 1970 [place], [place] [address] Location: [phone] Unit #: [id number] Progress Note Surgical [facility] JODIE Service Dt/Tm: 09/13/23 1030 Patient seen and examined independently by me.? Below discussed and I agree withthe note except where indicated.? See my additional comments below.? Labs, cultures, and radiographs where available were reviewed.? Changes were made in the orders as necessary.? I discussed patient concerns with the patient's nurse and instructions were given.? Please see our orders for the updated patient careplan. I was with the PA 100% time for the evaluation, examination and decision making of this patient. Assessment/Plan (1) Back pain: Status: Acute Qualifiers: Back pain laterality: unspecified Back pain location: low back pain Chronicity: acute Sciatica laterality: sciatica of right side Sciatica presence: with sciatica Qualified Code(s): M54.41 - Lumbago with sciatica, right side (2) Sciatica: Status: Acute Qualifiers: Laterality: unspecified laterality Qualified Code(s): M54.30 - Sciatica, unspecified side (3) Retroperitoneal abscess: Status: Acute Plan Hospitalist attending Surgery consulted neurosurgery consulkted OR this AM with Dr. Clemons for Epidural spinal Abscess WBC trending up, however CT scan shows continued improvement of intraabdominal abscess Will allow medicine/ID to manage WBC No surgical intervention needed for infection control Regular diet -flatus/-BM Will continue to follow Subjective Date of Service: 09/13/23 Patient Information: GEOVANNY MEJÍA is a 53 yr old F who was admitted on 09/08/23 for INTRA ABDOMINAL ABCESS. Patient expresses concerns: No Patient states: denies Shortness of breath or Chest pain Pain control: Moderately controlled CAM Tool Confusion Assessment Method (CAM Tool) 1. Acute onset and fluctuating course Is there evidence of an acute change in mental status from the patient's baseline?: No Did the (abnormal) behavior fluctuate during the day, that is tend to come and go or increase and decrease in severity?: No 2. Inattention Did the patient have difficulty focusing attention, for example, being easily distractible or having difficulty keeping track of what was being said?: No 3. Disorganized Thinking Was the patient?s thinking disorganized or incoherent, such as rambling or irrelevant conversation, unclear or illogical flow of ideas, or unpredictable switching from subject to subject?: No 4. Altered Level Of Consciousness Would you rate the patient's level of consciousness as Vigilant (hyper alert), Lethargic (drowsy, easily aroused), Stupor (difficult to arouse), OR Coma (unarousable)?: No CAM Score Does the patient have a positive CAM score? (Yes to all questions under number 1and 2, and Yes to question 3 or 4): No Objective Vital Signs Last 48 hours: Vital Signs - 48 hr Temp Pulse Resp BP Pulse Ox O2 Flow Rate 09/13/23 07:15 81 24 H 95 09/13/23 09:23 4.0 09/13/23 09:08 93 3 09/12/23 21:30 2.0 09/12/23 07:45 2.0 09/12/23 19:12 2 09/11/23 20:00 2 09/11/23 10:45 2 09/13/23 09:03 97.7 F 79 104/54 L 95 09/13/23 09:17 97.7 F 76 116/74 95 09/13/23 09:20 97.7 F 79 16 116/74 95 4.0 09/13/23 01:39 101.4 F H 103 H 94 09/12/23 19:53 97.5 F L 102 H 18 120/71 98 2.0 09/12/23 16:22 99.6 F 104 H 20 118/67 92 2.0 09/12/23 12:34 98.5 F 98 16 118/66 93 09/12/23 07:42 98.9 F 103 H 20 134/66 94 2.0 09/12/23 06:17 98.8 F 101 H 20 119/69 91 09/11/23 21:44 98.3 F 104 H 20 148/80 H 94 2.0 09/11/23 15:39 100.7 F H 107 H 18 130/66 95 2.0 09/11/23 12:14 98.2 F 104 H 20 139/104 H 95 2.0 Vital Signs (Last Set): Vital Signs - Last Set Temperature 97.7 F 09/13/23 09:20 Pulse Rate 79 09/13/23 09:20 Respiratory Rate 16 09/13/23 09:20 Blood Pressure 116/74 09/13/23 09:20 Oxygen Saturation% 95 09/13/23 09:20 Liters of Oxygen 4.0 09/13/23 09:23 Patient is: Afebrile Intake/Output totals: Intake & Output 09/12/23 09/13/23 09/13/23 22:59 06:59 14:59 Intake Total 1330.42 Output Total 550 300 150 Balance 780.42 -300 -150 Actual Weight (Kg) 83 kg Intake: IV Intake (ml) 1030.42 PO Intake (ml) 300 Output: Indwelling Urinary Catheter 550 300 150 Output (ml) Other: Anesthesia IV Fluids (ml) 1,800 Albumin (ml's) 250 Number of Stools 0 Dinner % 100 I/O: Equals output General Appearance: Positive Alert, Resting Comfortably and Cooperative; Negative Acute Distress HEENT: Positive Normal Inspection and EOMI Skin: Positive Color Normal and Warm, Dry Neck: Positive Normal Inspection Cardiovascular: Positive Regular Rate and Rhythm Lungs: Negative Respiratory Distress or Adventitial Sounds Abdomen: Positive Soft and Tender to palpation (mildly); Negative BM or Flatus Extremities: Positive Activity as expected and Warm and Dry; Negative Swelling Neurologic: Positive Grossly Intact, Moves all extremities and A & O x3 Psychological: Positive Mood & Affect Normal Lab Results: 09/13/23 08:51 09/13/23 08:51 Laboratory Results - last 24 hr 09/13/23 09/13/23 09/13/23 08:51 08:51 08:51 WBC RBC Hgb Hct MCV MCH MCHC RDW Plt Count Neut % (Auto) Lymph % (Auto) Graham % (Auto) Eos % (Auto) Baso % (Auto) Nucleat RBC Rel Count Absolute Neuts (auto) Absolute Lymphs (auto) Absolute Monos (auto) Absolute Eos (auto) Absolute Basos (auto) Target Cells RBC Morph Comment ESR PT INR Sodium Potassium Chloride Carbon Dioxide Anion Gap BUN Creatinine GFR Calculation Random Glucose 189 H Calcium 7.60 L 7.60 L Ionized Calcium Phosphorus 4.5 Magnesium 2.3 2.3 C-Reactive Protein 15.9 H Albumin 2.7 L Prealbumin 5.0 L Procalcitonin 0.74 H Random Vancomycin 6.0 L Slides for Path Review Blood Type Indirect Antiglob Test 09/13/23 09/13/23 09/13/23 08:51 08:51 08:51 WBC RBC Hgb Hct MCV MCH MCHC RDW Plt Count Neut % (Auto) Lymph % (Auto) Graham % (Auto) Eos % (Auto) Baso % (Auto) Nucleat RBC Rel Count Absolute Neuts (auto) Absolute Lymphs (auto) Absolute Monos (auto) Absolute Eos (auto) Absolute Basos (auto) Target Cells RBC Morph Comment ESR PT INR Sodium Potassium Chloride Carbon Dioxide Anion Gap BUN 21 H Creatinine 0.72 0.74 GFR Calculation > 60 > 60 Random Glucose 189 H Calcium Ionized Calcium Phosphorus Magnesium C-Reactive Protein Albumin Prealbumin Procalcitonin Random Vancomycin Slides for Path Review Blood Type Indirect Antiglob Test 09/13/23 09/13/23 09/13/23 08:51 08:51 08:51 WBC RBC Hgb Hct MCV MCH MCHC RDW Plt Count Neut % (Auto) Lymph % (Auto) Graham % (Auto) Eos % (Auto) Baso % (Auto) Nucleat RBC Rel Count Absolute Neuts (auto) Absolute Lymphs (auto) Absolute Monos (auto) Absolute Eos (auto) Absolute Basos (auto) Target Cells RBC Morph Comment ESR PT INR Sodium Potassium Chloride 95 L Carbon Dioxide 26 26 Anion Gap 9 8 BUN 21 H Creatinine GFR Calculation Random Glucose Calcium Ionized Calcium Phosphorus Magnesium C-Reactive Protein Albumin Prealbumin Procalcitonin Random Vancomycin Slides for Path Review Blood Type Indirect Antiglob Test 09/13/23 09/13/23 09/13/23 08:51 08:51 08:51 WBC 33.0 H RBC 3.01 L Hgb 8.5 L Hct 25.8 L MCV 85.6 MCH 28.2 MCHC 32.9 L RDW 16.1 H Plt Count 289 Neut % (Auto) 95.6 H Lymph % (Auto) 2.9 L Graham % (Auto) 1.4 L Eos % (Auto) 0.0 Baso % (Auto) 0.1 Nucleat RBC Rel Count 0.0 Absolute Neuts (auto) 36202 H Absolute Lymphs (auto) 1000 Absolute Monos (auto) 500 Absolute Eos (auto) 0 Absolute Basos (auto) 0 Target Cells Slight RBC Morph Comment Test not indicated ESR 98 H PT INR Sodium 130 L 129 L Potassium 3.8 3.8 Chloride 95 L Carbon Dioxide Anion Gap BUN Creatinine GFR Calculation Random Glucose Calcium Ionized Calcium Phosphorus Magnesium C-Reactive Protein Albumin Prealbumin Procalcitonin Random Vancomycin Slides for Path Review Blood Type Indirect Antiglob Test 09/13/23 09/12/23 09/12/23 00:49 14:08 03:59 WBC RBC Hgb Hct MCV MCH MCHC RDW Plt Count Neut % (Auto) Lymph % (Auto) Graham % (Auto) Eos % (Auto) Baso % (Auto) Nucleat RBC Rel Count Absolute Neuts (auto) Absolute Lymphs (auto) Absolute Monos (auto) Absolute Eos (auto) Absolute Basos (auto) Target Cells RBC Morph Comment ESR PT 18.5 H INR 1.59 H Sodium Potassium Chloride Carbon Dioxide Anion Gap BUN Creatinine GFR Calculation Random Glucose Calcium Ionized Calcium 1.07 L Phosphorus Magnesium C-Reactive Protein Albumin Prealbumin Procalcitonin Random Vancomycin Slides for Path Review Cancelled Blood Type O Positive Indirect Antiglob Test NEGATIVE Microbiology 09/11/23 13:35 Blood,Venous Blood Culture - Preliminary Staphylococcus aureus 09/11/23 13:40 Blood,Venous - Final 09/11/23 13:40 Blood,Venous Blood Culture - Preliminary Staphylococcus aureus 09/08/23 15:46 Abdominal fluid Gram Stain - Final 09/08/23 15:46 Abdominal fluid Body Fluid Culture - Final Staphylococcus aureus 09/08/23 18:20 Blood,Venous - Final Test not indicated 09/08/23 18:20 Blood,Venous Blood Culture - Final Staphylococcus aureus Staphylococcus epidermidis Entered by: Justin [facility] Donaldson on 09/13/23 1030 Report Signed by: Justin PerezDARBY Encinas PA-C on 09/13/23 1619 <<Signature on File>> <Electronically signed by Justin [facility]DR[facility] JODIE> Report Signed by: Noy Lechuga MD on 09/13/23 1735 <<Signature on File>> <Electronically signed by Noy Lechuga MD> [facility] Work Phone: 1(706) 627-824910-21-2023 Progress note Author Troy Garber [facility] September 13, 2023 5:29pm Note Date/Time September 13, 2023 8 :00am [facility] Medical Records Patient: GEOVANNY MEJÍA. : 1970 [place] [address] Location: [phone] Unit #: [id number] Progress Note - Hospitalist Troy Garber MD Service Dt/Tm: 09/13/23 0800 Assessment/Plan Assessment/Plan (1) Abscess in epidural space of thoracic spine: Status: Acute Code(s): G06.1 - Intraspinal abscess and granuloma Plan: Status post hemilaminectomy T4-5 with evacuation of dorsal spinal epidural abscess; hemilaminectomy with transpedicular decompression T10 on the left side with evacuation of ventral spinal epidural abscess. Appreciate input by neurosurgery consult. ID consult following with further antibiotic recommendations. Closely monitor for improvement in the bilateral lower extremity weakness. (2) Staphylococcus aureus septicemia: Status: Acute Code(s): A41.01 - Sepsis due to Methicillin susceptible Staphylococcus aureus Plan: Infectious disease consult monitoring and managing antibiotics for the septicemia. (3) Intra-abdominal abscess: Status: Acute Code(s): K65.1 - Peritoneal abscess Plan: Patient has a left-sided retroperitoneal abscess, status post drain placement and repeat CT showing improvement. Continue to monitor closely, with ID consultfollowing and managing. Patient may benefit from general surgery input eventually. Antibiotic management as indicated above. (4) HTN (hypertension): Status: Acute Qualifiers: Hypertension type: primary hypertension Qualified Code(s): I10 - Essential (primary) hypertension Code(s): I10 - Essential (primary) hypertension Plan: Continue with home regimen of antihypertensive, however will monitor closely because of the infection for hypotensive episodes. (5) Asthma: Status: Acute Qualifiers: Asthma severity: mild Asthma persistence: intermittent Asthma complication type: uncomplicated Qualified Code(s): J45.20 - Mild intermittent asthma, uncomplicated Code(s): J45.909 - Unspecified asthma, uncomplicated Plan: Home medication regimen as resumed, will continue with supportive management. (6) Normocytic normochromic anemia: Status: Acute Code(s): D64.9 - Anemia, unspecified Plan: Unclear etiology, however in the setting of infection, would want the infection to be brought under control prior to replenishing the iron stores. We will be obtaining anemia work-up. (7) Hyponatremia: Status: Acute Code(s): E87.1 - Hypo-osmolality and hyponatremia Plan: Unclear duration, stable and asymptomatic. Patient will need further work-up. This could be hypovolemia from dehydration. (8) Severe protein-calorie malnutrition: Status: Acute Code(s): E43 - Unspecified severe protein-calorie malnutrition Plan: Patient has albumin of 2.7 and prealbumin of 5 signaling severe protein calorie malnutrition. Patient will therefore need dietary consult to assist in the management since she needs proteins for healing process. (9) Hypocalcemia: Status: Acute Code(s): E83.51 - Hypocalcemia Plan: Patient does have hypocalcemia and previous ionized calcium was low. This will be replenished accordingly. Plan Management as outlined, appreciate input by all consultants. Keep patient in- house overnight and monitor closely the bilateral lower extremity weakness for improvement. A.m. labs. Current Code Status & Diet: 09/08/23 13:19 Code Status Routine Resuscitation Status: Full Code Code Status Order Placed: Code Status Ordered 09/08/23 at 1321 09/13/23 08:00 Regular Diet Texture: Regular Fluid Restrictions?: No Consult Biomedical Photographer for Oral Supplements/Nourishments?: No Discussed Patient's Care With: Nurse and Case Management Subjective Subjective: Patient was seen and examined this morning after surgery. She was being managedfor an intra-abdominal abscess with drain in place and antibiotic. However patient had complained of back pain and was found to have a thoracic spine epidural abscess. She is currently status post drainage by neurosurgeon and patient remained stable. She denied any pain, fever or chills when seen and examined. She still cannot move the lower extremities but that is being closelymonitored. Appreciate input by neurosurgery consult. Patient Status & Estimated DC Date Patient Registration Status: Inpatient Objective Constitutional: Last Vital Signs Temp Pulse Resp BP Pulse Ox O2 Flow Rate 101.4 F H 103 H 18 120/71 94 2.0 09/13/23 01:39 09/13/23 01:39 09/12/23 19:53 09/12/23 19:53 09/13/23 01:39 09/12/23 21:30 Intake and Output 09/12/23 09/13/23 09/14/23 06:59 06:59 06:59 Intake Total 2724.62 2288.96 Output Total 2200 2750 150 Balance 524.62 -461.04 -150 Admitting (IV Pump) Weight 83 kg Actual Weight (Kg) 83 kg General Appearance: Alert, Resting Comfortably and Cooperative; No Acute Distress Eyes: PERRLA and EOMI ENT: Normal Inspection, Pharynx Normal and Oral Mucosa Moist; No Pharyngeal Erythema Skin: Color Normal and Warm, Dry; No Rash, Diaphoresis or Pallor Cardiovascular: Irregular Rhythm; No Click, Rub, Gallop or Murmur Lungs: Clear to Auscultate Bila and Good Air Entry; No Rales or Expiratory Wheezes Abdomen: Soft, Tender to palpation and Other (Abscess drain in place draining purulent fluid); No Rebound tender to palpat. Extremities: Activity as expected and Warm and Dry; No Cyanosis, Swelling or Edema Neurologic: A & O x3 and Other (Bilateral paraparesis) Psychological: Mood & Affect Normal Data Labs: The last 24 hours of labs have been reviewed. Imaging: I have reviewed the diagnostic images in the EMR. 09/12/23 10:31 CT Lumbar Spine W/O Cont [id number] Urgent 09/12/23 14:27 Lumbar Spine w/wo Contrast MRI [MRI Lumbar Spine w/wo Contr] Stat 09/13/23 00:09 MRI Thoracic Spine w/o Contras Stat Microbiology: Microbiology 09/11/23 13:40 Blood,Venous - Final 09/11/23 13:40 Blood,Venous Blood Culture - Preliminary Gram positive cocci- clusters 09/11/23 13:35 Blood,Venous Blood Culture - Preliminary Gram positive cocci- clusters 09/08/23 15:46 Abdominal fluid Gram Stain - Final 09/08/23 15:46 Abdominal fluid Body Fluid Culture - Preliminary Staphylococcus aureus Medications and Comanagement: Medications reviewed separately. Entered by: Troy Garber MD on 09/13/23 08 Report Signed by: Troy Garber MD on 09/13/23 3743 <<Signature on File>> <Electronically signed by Troy Garber MD> Report Signed by: on [facility] Work Phone: 1(647) 354-621010-21-2023 Progress note Author Troy Garber [facility] September 13, 2023 5:29pm Note Date/Time September 13, 2023 8 :00am [facility] Medical Records Patient: GEOVANNY MEJÍA. : 1970 [place], [place] [address] Location: [phone] Unit #: [id number] Progress Note - Hospitalist Troy Garber MD Service Dt/Tm: 09/13/23 0800 Assessment/Plan Assessment/Plan (1) Abscess in epidural space of thoracic spine: Status: Acute Code(s): G06.1 - Intraspinal abscess and granuloma Plan: Status post hemilaminectomy T4-5 with evacuation of dorsal spinal epidural abscess; hemilaminectomy with transpedicular decompression T10 on the left side with evacuation of ventral spinal epidural abscess. Appreciate input by neurosurgery consult. ID consult following with further antibiotic recommendations. Closely monitor for improvement in the bilateral lower extremity weakness. (2) Staphylococcus aureus septicemia: Status: Acute Code(s): A41.01 - Sepsis due to Methicillin susceptible Staphylococcus aureus Plan: Infectious disease consult monitoring and managing antibiotics for the septicemia. (3) Intra-abdominal abscess: Status: Acute Code(s): K65.1 - Peritoneal abscess Plan: Patient has a left-sided retroperitoneal abscess, status post drain placement and repeat CT showing improvement. Continue to monitor closely, with ID consultfollowing and managing. Patient may benefit from general surgery input eventually. Antibiotic management as indicated above. (4) HTN (hypertension): Status: Acute Qualifiers: Hypertension type: primary hypertension Qualified Code(s): I10 - Essential (primary) hypertension Code(s): I10 - Essential (primary) hypertension Plan: Continue with home regimen of antihypertensive, however will monitor closely because of the infection for hypotensive episodes. (5) Asthma: Status: Acute Qualifiers: Asthma severity: mild Asthma persistence: intermittent Asthma complication type: uncomplicated Qualified Code(s): J45.20 - Mild intermittent asthma, uncomplicated Code(s): J45.909 - Unspecified asthma, uncomplicated Plan: Home medication regimen as resumed, will continue with supportive management. (6) Normocytic normochromic anemia: Status: Acute Code(s): D64.9 - Anemia, unspecified Plan: Unclear etiology, however in the setting of infection, would want the infection to be brought under control prior to replenishing the iron stores. We will be obtaining anemia work-up. (7) Hyponatremia: Status: Acute Code(s): E87.1 - Hypo-osmolality and hyponatremia Plan: Unclear duration, stable and asymptomatic. Patient will need further work-up. This could be hypovolemia from dehydration. (8) Severe protein-calorie malnutrition: Status: Acute Code(s): E43 - Unspecified severe protein-calorie malnutrition Plan: Patient has albumin of 2.7 and prealbumin of 5 signaling severe protein calorie malnutrition. Patient will therefore need dietary consult to assist in the management since she needs proteins for healing process. (9) Hypocalcemia: Status: Acute Code(s): E83.51 - Hypocalcemia Plan: Patient does have hypocalcemia and previous ionized calcium was low. This will be replenished accordingly. Plan Management as outlined, appreciate input by all consultants. Keep patient in- house overnight and monitor closely the bilateral lower extremity weakness for improvement. A.m. labs. Current Code Status & Diet: 09/08/23 13:19 Code Status Routine Resuscitation Status: Full Code Code Status Order Placed: Code Status Ordered 09/08/23 at 1321 09/13/23 08:00 Regular Diet Texture: Regular Fluid Restrictions?: No Consult Biomedical Photographer for Oral Supplements/Nourishments?: No Discussed Patient's Care With: Nurse and Case Management Subjective Subjective: Patient was seen and examined this morning after surgery. She was being managedfor an intra-abdominal abscess with drain in place and antibiotic. However patient had complained of back pain and was found to have a thoracic spine epidural abscess. She is currently status post drainage by neurosurgeon and patient remained stable. She denied any pain, fever or chills when seen and examined. She still cannot move the lower extremities but that is being closelymonitored. Appreciate input by neurosurgery consult. Patient Status & Estimated DC Date Patient Registration Status: Inpatient Objective Constitutional: Last Vital Signs Temp Pulse Resp BP Pulse Ox O2 Flow Rate 101.4 F H 103 H 18 120/71 94 2.0 09/13/23 01:39 09/13/23 01:39 09/12/23 19:53 09/12/23 19:53 09/13/23 01:39 09/12/23 21:30 Intake and Output 09/12/23 09/13/23 09/14/23 06:59 06:59 06:59 Intake Total 2724.62 2288.96 Output Total 2200 2750 150 Balance 524.62 -461.04 -150 Admitting (IV Pump) Weight 83 kg Actual Weight (Kg) 83 kg General Appearance: Alert, Resting Comfortably and Cooperative; No Acute Distress Eyes: PERRLA and EOMI ENT: Normal Inspection, Pharynx Normal and Oral Mucosa Moist; No Pharyngeal Erythema Skin: Color Normal and Warm, Dry; No Rash, Diaphoresis or Pallor Cardiovascular: Irregular Rhythm; No Click, Rub, Gallop or Murmur Lungs: Clear to Auscultate Bila and Good Air Entry; No Rales or Expiratory Wheezes Abdomen: Soft, Tender to palpation and Other (Abscess drain in place draining purulent fluid); No Rebound tender to palpat. Extremities: Activity as expected and Warm and Dry; No Cyanosis, Swelling or Edema Neurologic: A & O x3 and Other (Bilateral paraparesis) Psychological: Mood & Affect Normal Data Labs: The last 24 hours of labs have been reviewed. Imaging: I have reviewed the diagnostic images in the EMR. 09/12/23 10:31 CT Lumbar Spine W/O Cont [id number] Urgent 09/12/23 14:27 Lumbar Spine w/wo Contrast MRI [MRI Lumbar Spine w/wo Contr] Stat 09/13/23 00:09 MRI Thoracic Spine w/o Contras Stat Microbiology: Microbiology 09/11/23 13:40 Blood,Venous - Final 09/11/23 13:40 Blood,Venous Blood Culture - Preliminary Gram positive cocci- clusters 09/11/23 13:35 Blood,Venous Blood Culture - Preliminary Gram positive cocci- clusters 09/08/23 15:46 Abdominal fluid Gram Stain - Final 09/08/23 15:46 Abdominal fluid Body Fluid Culture - Preliminary Staphylococcus aureus Medications and Comanagement: Medications reviewed separately. Entered by: Troy Garber MD on 09/13/23 0800 Report Signed by: Troy Garber MD on 09/13/23 1729 <<Signature on File>> <Electronically signed by Troy Garber MD> Report Signed by: on [facility] Work Phone: 1(912) 518-275210-21-2023 [facility] Patient: GEOVANNY MEJÍA. : 1970 [place], [place] [address] Location: [phone] Unit #: [id number] Procedure Note - Surgical Lucy Lara PA-C Service Dt/Tm: 09/13/23 0712 Date of Procedure: 09/13/23 Pre-Procedure Diagnosis: epidural abscess T4-5 and T10-11 Post Procedure Diagnosis: Same Performing Surgeon/Physician: Alec Clemons MD Was Intelligence Officer Basic(s) Used: Yes Intelligence Officer Basic(s): Lucy Lara Procedure Performed: Thoracic Hemilaminectomy T4-5 and T10-T11 Findings: Post Op Diagnosis Confirmed Type of Anesthesia Used: General Estimated Blood Loss: <500 Disposition of Specimen: Pathology Complications: None Disposition after Procedure: PACU Entered by: Lucy Lara PA-C on 09/13/23711 Report Signed by: Lucy Lara PA-C on 09/13/23722 < > Report Signed by: Alec Clemons MD on 09/13/23 1504 < > [facility] Consult note Author Alec Clemons [facility] September 13, 2023 3:02pm Note Date/Time September 13, 2023 2 :02am [facility] Medical Records Patient: GEOVANNY MEJÍA1 Yumiko Suh. : 1970 [place], [place] [address] Location: [phone] Unit #: [id number] Consultation Lucy Lara PA-C Service Date: 09/13/23 History of Present Illness Date of Consultation: 09/13/23 Time Seen: 01:30 History of Present Illness: GEOVANNY MEJÍA is a 53 yr old F who was admitted on 09/08/23 for INTRA ABDOMINAL ABCESS. 53-year-old female with past medical history of hypertension transferred from [facility] for abdominal pain on 09/08/2023. She was evaluated [facility] surgery and found to have left-sided retroperitoneal abscess on the CT scan. Abscess measured 4.7 x 2.6 x 4.5 cm. Per records she was also complaining of back pain but does have a history of sciatica. She was evaluatedby surgery who recommended IR for percutaneous draining. Fluid obtained from drain was purulent and consistent with abscess. Blood cultures and abscess cultures positive for MSSA and placed on cefazolin. She continued to developed worsening pain and weakness in her legs to the point that she is unable to move her lower extremity. Neurosurgery consulted recommended lumbar MRI for further evaluation. Lumbar MRI suggestive of epidural abscess posterior to T10 and T11 please see official report. Repeat thoracic MRI ordered for further evaluation. Allergies/Adverse Reactions No Known Drug Allergies Allergy (Verified 09/08/23 09:58) Home Medications No Home Meds 09/09/23 [Confirmed 09/09/23] Past Medical History Medical History (Updated 09/13/23 @ 03:15 by Jeb Mackey DO) HTN (hypertension) Past Surgical History Surgical History (Updated 09/13/23 @ 02:34 by Chante Martínez CRNA) Intra-abdominal abscess DRAINED Social History Alcohol Amount: Socially/Occasionally Street Drugs: None Smoking Status: Former smoker Type of Tobacco: Cigarettes Smoking Amount: < 1 pack per day Smoking Stop Date: 09/05/23 Family History Denies family history of No pertinent family history Physical Exam Last Vital Signs Temp Pulse Resp BP Pulse Ox O2 Flow Rate 101.4 F H 103 H 18 120/71 94 2.0 09/13/23 01:39 09/13/23 01:39 09/12/23 19:53 09/12/23 19:53 09/13/23 01:39 09/12/23 21:30 Height (Ft & In) 5 ft 4 in Admitting (IV Pump) Weight 83 kg Actual Weight (Kg) 83 kg General Appearance: Alert and Other (resting, painful) Eyes: EOMI Skin: Color Normal and Warm, Dry Extremities: Warm and Dry Neurologic: Other (spontaneous movement of UE . 0/4 power in BLE.) Psychological: Mood & Affect Normal Vitals stable Leukocytosis Laboratory Last Values WBC 31.4 th/cmm (4.4-10.5) H 09/12/23 03:59 RBC 3.49 mil/cmm (4.00-5.10) L 09/12/23 03:59 Hgb 9.8 gm/dL (12.0-15.0) L 09/12/23 03:59 Hct 29.6 % (35.0-44.0) L 09/12/23 03:59 MCV 84.8 CU MILKA (80-97) 09/12/23 03:59 MCH 28.0 PG (27.5-33.0) 09/12/23 03:59 MCHC 33.0 gm/dL (33.0-36.0) 09/12/23 03:59 RDW 16.0 % (12.0-16.0) 09/12/23 03:59 Plt Count 241 th/cmm (150-400) 09/12/23 03:59 Neutrophils % (Manual) 85.0 % (40-70) H 09/08/23 18: Band Neutrophils % 10.0 % (2-6) H 09/08/23 18: Lymphocytes % (Manual) 4.0 % (15-45) L 09/08/23 18:27 Monocytes % (Manual) 1.0 % (2-10) L 09/08/23 18: Abs Neuts (Manual) 46715 /cmm (8269-1535) H 09/08/23 18: Abs Lymphs (Manual) 996 /cmm (6694-1308) L 09/08/23 18: Abs Monocytes (Manual) 249 /cmm (0-800) 09/08/23 18: Absolute Eos (Manual) 0 /cmm (0-500) 09/08/23 18: Abs Basophils (Manual) 0 /cmm (0-200) 09/08/23 18: Anisocytosis 1+ 09/08/23 18: RBC Morph Comment Test not indicated 09/08/23 18: PT 18.5 Sec (9.6-13.3) H 09/13/23 00:49 INR 1.59 (0.9-1.2) H 09/13/23 00:49 Sodium 132 mEq/L (135-145) L 09/12/23 03:59 Potassium 3.6 mEq/L (3.6-5.0) 09/12/23 03:59 Chloride 97 mEq/L (101-111) L 09/12/23 03:59 Carbon Dioxide 25 mEq/L (21-32) 09/12/23 03:59 Anion Gap 10 (4-12) 09/12/23 03:59 BUN 17 mg/dL (7-20) 09/12/23 03:59 Creatinine 0.57 mg/dL (0.60-1.30) L 09/12/23 03:59 GFR Calculation > 60 (60-) 09/12/23 03:59 Random Glucose 112 mg/dL (70-110) H 09/08/23 18:27 Fasting Glucose 88 mg/dL (70-110) 09/12/23 03:59 Lactic Acid 1.1 mmol/L (0.5-2.0) 09/08/23 18:27 Calcium 7.60 mg/dL (8.8-10.5) L 09/12/23 03:59 Ionized Calcium 1.07 mmol/L (1.15-1.29) L 09/12/23 14:08 Magnesium 2.2 mg/dL (1.8-2.5) 09/12/23 03:59 Total Bilirubin 0.4 mg/dL (0.2-1.0) 09/08/23 18:27 AST 11 IU/L (15-41) L 09/08/23 18:27 ALT 20 IU/L (10-40) 09/08/23 18:27 Alkaline Phosphatase 276 IU/L (39-118) H 09/08/23 18:27 Total Protein 6.0 g/dL (6.2-8.0) L 09/08/23 18:27 Albumin 2.7 g/dL (3.5-5.0) L 09/08/23 18:27 Albumin/Globulin Ratio 0.8 (1.5-2.5) L 09/08/23 18:27 Peritoneal Creatinine 0.7 mg/dL 09/08/23 15:46 Pleural Triglycerides 102 mg/dL 09/08/23 15:46 Nasal Screen MRSA (PCR) NOT DETECTED (NotDetected) 09/08/23 Unknown Fecal Screen VRE (PCR) Negative (Negative) 09/08/23 Unknown Random Vancomycin 18.3 mcg/mL (15.0-40.0) 09/09/23 09:18 Slides for Path Review Cancelled 09/12/23 03:59 Diagnostic Data: 09/12/23 10:31 CT Lumbar Spine W/O Cont [id number] Urgent 09/12/23 14:27 Lumbar Spine w/wo Contrast MRI [MRI Lumbar Spine w/wo Contr] Stat Assessment and Plan (1) Bacteremia: (2) Retroperitoneal abscess: Plan Lumbar MRI suggestive of T10-T11 abscess. Order thoracic MRI for further evaluation. If thoracic MRI does confirm presence of abscess patient will benefit from surgical intervention. Patient seen shortly after completing thoracic MRI Extra-axial fluid noted dorsally from approximately T9-T11 in addition to ventral fluid focused at T4. Over the past 24 to 48 hours, the patient has beenexperiencing excruciating diffuse pain and weakness to the point that she is notambulatory. When asked the last time she was able to ambulate, she states that she has been unable to determine the duration of her neurologic compromise. Herpain has been affecting the upper and lower portions of her back to the point that she is required a continuous GLOBAL CHIEF CREATIVE OFFICER. She has had difficulty walking since presentation but was not ambulatory at least 12 to 24 hours prior to obtaining our studies. In the MRI suite, she states that she is able to feel light touch in the distal lower extremities bilaterally and identifying tactile locations. Her bilateral lower extremities are without spontaneous movement. There is no evidence of clonus. She has positive straight legs bilaterally. Bilateral upper extremity strength 4+/5 with normal sensation. Patient is without photophobia and withoutnuchal rigidity. I discussed with the patient the need for emergent surgery and the importance ofof evacuating what ever extra-axial fluid collections are present in both the upper and lower thoracic spine. I explained that I would perform either complete or partial laminectomies depending on the quality of the fluid. I alsoexplained that there is a chance she may not regain any type of neurologic function in her legs bilaterally. It is my hope that she will gradually improve with aggressive therapy and time. It will be important for the primary service to continue to aggressively determine the source of this infection. cc: Alec Clemons MD; Lucy Lara PA-C; None Dictated by: Lucy Lara PA-C on 09/13/23155 Entered by: Lucy Lara PA-C on 09/13/23155 Report Signed by: Lucy Lara PA-C on 09/13/23 0207 <<Signature on File>> < 1502 <<Signature on File>> <Electronically signed by Alec Clemons MD> [facility] Work Phone: 1(160) 706-363210-21-2023 [facility]23 Progress note Author Jeb Mackey [facility] September 13, 2023 3:16am Note Date/Time September 13, 2023 2 :30am [facility] Medical Records Patient: GEOVANNY MEJÍA [address] : 1970 [place], [place] [address] Location: [phone] Unit #: [id number] Anesthesia Pre-Op Evaluation Chante Mauricio [facility] Service Dt/Tm: 09/13/23 0227 GEOVANNY MEJÍA is a 53 yr old F. Height (Ft & In): 5 ft 4 in Actual Weight (Kg): 83 kg Body Mass Index (BMI): 31.4 NPO Since: food 2 days ago, sips of water today Pre Op Diagnosis: THORACIC ABCESS Scheduled Procedure: Operation Date: 09/13/23 03:00 Proposed Procedures p Thoracic Laminectomy T9-T11(Not Applicable) - Alec Clemons MD Alcohol Amount: Socially/Occasionally Opiod/Substance/Drug Use: None Smoking Status: Former smoker Type of Tobacco: Cigarettes Smoking Amount: < 1 pack per day Anesthesia History: Past General Anesthetic Without Complications PONV Risk Score: Female and Opiods PONV Risk Score: 2 PONV Prevention-Combination Therapy Utilized: Yes - Active Medications: Active Medications Acetaminophen (Acetaminophen 325 Mg Tab) 650 mg PO Q6HPRN PRN PRN Reason: Pain,Mild Or Fever >101.0 F Stop: 12/16/23 13:20 Diphenhydramine HCl (Diphenhydramine Hcl 25 Mg Cap) 25 mg PO QHSPRN PRN PRN Reason: insomnia Stop: 12/16/23 13:20 Last Admin: 09/11/23 21:51 Dose: 25 mg Docusate Sodium (Docusate Sodium 100 Mg Cap) 100 mg PO BIDPRN PRN PRN Reason: Constipation Stop: 12/16/23 13:20 Electrolyte Protocol (Phosphorus Replacement Protocol) 1 catrina MEJÍA DIRECTED PRN;Protocol PRN Reason: SEE COMMENTS BELOW Stop: 12/16/23 13:20 Electrolyte Protocol (Calcium Replacement Protocol) 1 catrina MEJÍA DIRECTED PRN; Protocol PRN Reason: SEE COMMENTS BELOW Stop: 12/16/23 13:20 Electrolyte Protocol (Magnesium Replacement Protocol 1 Catrina Fuller) 1 catrina MEJÍA DIRECTED PRN; Protocol PRN Reason: SEE COMMENTS BELOW Stop: 12/16/23 13:20 Electrolyte Protocol (Potassium Replacement Protocol 1 Ea Catrina) 1 catrina MEJÍA DIRECTED PRN; Protocol PRN Reason: SEE COMMENTS BELOW Stop: 12/16/23 13:20 Furosemide (Furosemide 40 Mg/4 Ml Vial) 40 mg IV PUSH DAILY [facility] Stop: 12/20/23 09:01 Last Admin: 09/12/23 09:55 Dose: 40 mg Heparin Sodium (Porcine) (Heparin Na(Porcine) 5,000 Units/Ml Vial) 5,000 units SC Q8H [facility] Stop: 12/17/23 14:01 Last Admin: 09/12/23 21:27 Dose: 5,000 units Hydromorphone HCl (Hydromorphone Hcl 1 Mg/Ml Amp) 0.5 mg IV PUSH Q4HPRN PRN PRN Reason: breakthrough pain Stop: 12/17/23 02:31 Last Admin: 09/09/23 06:41 Dose: 0.5 mg Hydromorphone HCl (Hydromorphone 6 Mg/30 Ml High Lift Operator.Syring) 6 mg IV GLOBAL CHIEF CREATIVE OFFICER DIRECTEDSCH Stop: 12/17/23 11:31 Last Admin: 09/12/23 21:47 Dose: 6 mg Cefazolin Sodium (Kefzol Premix) 2 gm in 100 mls @ 200 mls/hr IVPB Q8H [facility] Stop: 09/17/23 14:01 Last Admin: 09/12/23 22:25 Dose: 200 mls/hr Vancomycin HCl 1,000 mg/ (Sodium Chloride) 250 mls @ 166.667 mls/hr IVPB Q12H [facility] Stop: 09/20/23 05:01 Sodium Chloride (Ns) 1,000 mls @ 0 mls/hr IV DIRECTED [facility] Stop: 12/20/23 22:31 Last Admin: 09/12/23 22:43 Dose: 20 mls/hr Lactobacillus Rhamnosus (Lactobacillus Rhamnosus (Gg) 1 Ea Cap) 1 ea PO DAILY [facility] Stop: 10/09/23 09:01 Last Admin: 09/12/23 09:55 Dose: 1 ea Melatonin (Melatonin 3 Mg Tab) 3 mg PO QHSMRX1 PRN PRN Reason: insomnia Stop: 12/16/23 13:20 Last Admin: 09/08/23 20:41 Dose: 3 mg Non-Formulary Medication (Pharmacy Communication 1 Catrina Fuller) 1 catrina MEJÍA .PHA TO PLACESCH Stop: 12/17/23 11:31 Non-Formulary Medication (Vancomycin Pha To Dose 1 Catrina Fuller) 1 catrina MEJÍA PHA TO DOSE VITAL[facility]Y Stop: 10/12/23 17:01 Ondansetron HCl (Ondansetron 4 Mg/2 Ml Vial) 4 mg IV PUSH Q6HPRN PRN PRN Reason: Nausea and Vomiting Stop: 12/16/23 13:20 Polyethylene Glycol (Polyethylene Glycol 17 Gm Pkg) 17 gm PO DAILYPRN PRN PRN Reason: Constipation Stop: 12/16/23 13:20 Sodium Chloride (Sodium Chloride 0.9% 10 Ml Syr (Flush)) 5 ml FLUSH BID VITAL[facility] Stop: 12/18/23 21:01 Last Admin: 09/12/23 21:20 Dose: 5 ml Allergies/Adverse Reactions No Known Drug Allergies Allergy (Verified 09/08/23 09:58) Home Medications No Home Meds 09/09/23 [Confirmed 09/09/23] Past Medical History Medical History (Updated 09/13/23 @ 02:34 by Chante Martínez CRNA) HTN (hypertension) Cardiovascular: Mets >4 and Denies Chest Pain Pulmonary: Denies Shortness of Breath and Denies Dyspnea Upon Exertion Past Surgical History Surgical History (Updated 09/13/23 @ 02:34 by Chante Martínez CRNA) Intra-abdominal abscess DRAINED Social History Alcohol Amount: Socially/Occasionally Street Drugs: None Smoking Status: Former smoker Type of Tobacco: Cigarettes Smoking Amount: < 1 pack per day Smoking Stop Date: 09/05/23 Family History Denies family history of No pertinent family history Vital Signs - Last Set Temperature 101.4 F H 09/13/23 01:39 Pulse Rate 103 H 09/13/23 01:39 Respiratory Rate 18 09/12/23 19:53 Blood Pressure 120/71 09/12/23 19:53 Oxygen Saturation% 94 09/13/23 01:39 Liters of Oxygen 2.0 09/12/23 21:30 CBC/BMP Diagrams 09/12/23 03:59 09/12/23 03:59 INR 1.59 (0.9-1.2) H 09/13/23 00:49 Teeth: Missing (EDENTULOUS) Risk of dental injury explained. Patient agrees to proceed: Yes Airway Assessed: WNL Mental Status: Awake and Alert Lungs: WNL Heart: RRR Mallampati: 2 ASA: 2 and E Fraility Assessment: Negative Planned Anesthesia: General Pre-op interview conducted in presence of family/friend with patient's verbal consent. Impression & Plan, including the type of medications for induction, maintenance, and Blood Conservation techniques have been discussed with patient and patient accepts. Entered by: Chante Martínez CRNA on 09/13/23226 Report Signed by: Chante Martínez CRNA on 09/13/23233 <<Signature on File>> < 5 <<Signature on File>> <Electronically signed by Jeb Mackey DO> [facility] Work Phone: 1(616) 629-988610-21-2023 Progress note Author Jeb Mackey [facility] September 13, 2023 3:16am Note Date/Time September 13, 2023 2 :30am [facility] Medical Records Patient: GEOVANNY MEJÍA [address] : 1970 [place], [place] [address] Location: [address] [place] [address] Unit #: [id number] Anesthesia Pre-Op Evaluation Chante Martínez CRNA Service Dt/Tm: 09/13/23226 GEOVANNY MEJÍA is a 53 yr old F. Height (Ft & In): 5 ft 4 in Actual Weight (Kg): 83 kg Body Mass Index (BMI): 31.4 NPO Since: food 2 days ago, sips of water today Pre Op Diagnosis: THORACIC ABCESS Scheduled Procedure: Operation Date: 09/13/23 03:00 Proposed Procedures p Thoracic Laminectomy T9-T11(Not Applicable) - Alec Clemons MD Alcohol Amount: Socially/Occasionally Opiod/Substance/Drug Use: None Smoking Status: Former smoker Type of Tobacco: Cigarettes Smoking Amount: < 1 pack per day Anesthesia History: Past General Anesthetic Without Complications PONV Risk Score: Female and Opiods PONV Risk Score: 2 PONV Prevention-Combination Therapy Utilized: Yes - Active Medications: Active Medications Acetaminophen (Acetaminophen 325 Mg Tab) 650 mg PO Q6HPRN PRN PRN Reason: Pain,Mild Or Fever >101.0 F Stop: 12/16/23 13:20 Diphenhydramine HCl (Diphenhydramine Hcl 25 Mg Cap) 25 mg PO QHSPRN PRN PRN Reason: insomnia Stop: 12/16/23 13:20 Last Admin: 09/11/23 21:51 Dose: 25 mg Docusate Sodium (Docusate Sodium 100 Mg Cap) 100 mg PO BIDPRN PRN PRN Reason: Constipation Stop: 12/16/23 13:20 Electrolyte Protocol (Phosphorus Replacement Protocol) 1 catrina MEJÍA DIRECTED PRN;Protocol PRN Reason: SEE COMMENTS BELOW Stop: 12/16/23 13:20 Electrolyte Protocol (Calcium Replacement Protocol) 1 catrina MD DIRECTED PRN; Protocol PRN Reason: SEE COMMENTS BELOW Stop: 12/16/23 13:20 Electrolyte Protocol (Magnesium Replacement Protocol 1 Ea Ea) 1 catrina MD DIRECTED PRN; Protocol PRN Reason: SEE COMMENTS BELOW Stop: 12/16/23 13:20 Electrolyte Protocol (Potassium Replacement Protocol 1 Ea Ea) 1 catrina MD DIRECTED PRN; Protocol PRN Reason: SEE COMMENTS BELOW Stop: 12/16/23 13:20 Furosemide (Furosemide 40 Mg/4 Ml Vial) 40 mg IV PUSH DAILY [facility] Stop: 12/20/23 09:01 Last Admin: 09/12/23 09:55 Dose: 40 mg Heparin Sodium (Porcine) (Heparin Na(Porcine) 5,000 Units/Ml Vial) 5,000 units SC Q8H [facility] Stop: 12/17/23 14:01 Last Admin: 09/12/23 21:27 Dose: 5,000 units Hydromorphone HCl (Hydromorphone Hcl 1 Mg/Ml Amp) 0.5 mg IV PUSH Q4HPRN PRN PRN Reason: breakthrough pain Stop: 12/17/23 02:31 Last Admin: 09/09/23 06:41 Dose: 0.5 mg Hydromorphone HCl (Hydromorphone 6 Mg/30 Ml High Lift Operator.Syring) 6 mg IV GLOBAL CHIEF CREATIVE OFFICER DIRECTEDSCH Stop: 12/17/23 11:31 Last Admin: 09/12/23 21:47 Dose: 6 mg Cefazolin Sodium (Kefzol Premix) 2 gm in 100 mls @ 200 mls/hr IVPB Q8H [facility] Stop: 09/17/23 14:01 Last Admin: 09/12/23 22:25 Dose: 200 mls/hr Vancomycin HCl 1,000 mg/ (Sodium Chloride) 250 mls @ 166.667 mls/hr IVPB Q12H [facility] Stop: 09/20/23 05:01 Sodium Chloride (Ns) 1,000 mls @ 0 mls/hr IV DIRECTED [facility]ITALI[facility] Stop: 12/20/23 22:31 Last Admin: 09/12/23 22:43 Dose: 20 mls/hr Lactobacillus Rhamnosus (Lactobacillus Rhamnosus (Gg) 1 Ea Cap) 1 ea PO DAILY [facility] Stop: 10/09/23 09:01 Last Admin: 09/12/23 09:55 Dose: 1 ea Melatonin (Melatonin 3 Mg Tab) 3 mg PO QHSMRX1 PRN PRN Reason: insomnia Stop: 12/16/23 13:20 Last Admin: 09/08/23 20:41 Dose: 3 mg Non-Formulary Medication (Pharmacy Communication 1 Ea Ea) 1 catrina MEJÍA .PHA TO PLACESCH Stop: 12/17/23 11:31 Non-Formulary Medication (Vancomycin Pha To Dose 1 Ea Ea) 1 catrina MEJÍA PHA TO DOSE [facility] Stop: 10/12/23 17:01 Ondansetron HCl (Ondansetron 4 Mg/2 Ml Vial) 4 mg IV PUSH Q6HPRN PRN PRN Reason: Nausea and Vomiting Stop: 12/16/23 13:20 Polyethylene Glycol (Polyethylene Glycol 17 Gm Pkg) 17 gm PO DAILYPRN PRN PRN Reason: Constipation Stop: 12/16/23 13:20 Sodium Chloride (Sodium Chloride 0.9% 10 Ml Syr (Flush)) 5 ml FLUSH BID [facility] Stop: 12/18/23 21:01 Last Admin: 09/12/23 21:20 Dose: 5 ml Allergies/Adverse Reactions No Known Drug Allergies Allergy (Verified 09/08/23 09:58) Home Medications No Home Meds 09/09/23 [Confirmed 09/09/23] Past Medical History Medical History (Updated 09/13/23 @ 02:34 by Chante Martínez CRNA) HTN (hypertension) Cardiovascular: Mets >4 and Denies Chest Pain Pulmonary: Denies Shortness of Breath and Denies Dyspnea Upon Exertion Past Surgical History Surgical History (Updated 09/13/23 @ 02:34 by Chante Martínez CRNA) Intra-abdominal abscess DRAINED Social History Alcohol Amount: Socially/Occasionally Street Drugs: None Smoking Status: Former smoker Type of Tobacco: Cigarettes Smoking Amount: < 1 pack per day Smoking Stop Date: 09/05/23 Family History Denies family history of No pertinent family history Vital Signs - Last Set Temperature 101.4 F H 09/13/23 01:39 Pulse Rate 103 H 09/13/23 01:39 Respiratory Rate 18 09/12/23 19:53 Blood Pressure 120/71 09/12/23 19:53 Oxygen Saturation% 94 09/13/23 01:39 Liters of Oxygen 2.0 09/12/23 21:30 CBC/BMP Diagrams 09/12/23 03:59 09/12/23 03:59 INR 1.59 (0.9-1.2) H 09/13/23 00:49 Teeth: Missing (EDENTULOUS) Risk of dental injury explained. Patient agrees to proceed: Yes Airway Assessed: WNL Mental Status: Awake and Alert Lungs: WNL Heart: RRR Mallampati: 2 ASA: 2 and E Fraility Assessment: Negative Planned Anesthesia: General Pre-op interview conducted in presence of family/friend with patient's verbal consent. Impression & Plan, including the type of medications for induction, maintenance, and Blood Conservation techniques have been discussed with patient and patient accepts. Entered by: Chante Martínez CRNA on 09/13/23226 Report Signed by: Chante Martínez CRNA on 09/13/23233 <<Signature on File>> < 5 <<Signature on File>> <Electronically signed by Jeb Mackey DO> [facility] Work Phone: 1(762) 735-878410-21-2023 Progress note Author Alec Clemons [facility] September 13, 2023 2:17am Note Date/Time September 13, 2023 2 :17am [facility] Medical Records Patient: GEOVANNY MEJÍA [address] : 1970 [place], [place] [address] Location: [phone] Unit #: [id number] Status Note/Update Alec Clemons MD Service Dt/Tm: 09/13/23213 Note: GEOVANNY MEJÍA is a 53 yr old F who was admitted on 09/08/23 for INTRA ABDOMINAL ABCESS. 53-year-old female who is currently being treated for an abdominal abscess and has developed difficulty with ambulation MRI scan was completed and the official report is been pending; upon my review it appears there is an extra-axial fluid collection ventral to the thecal sac and thoracic cord at approximately T10-T12 Given the nature of her complaints, a stat MRI scan of the thoracic spine was obtained She is being preop for possible laminectomy and evacuation of fluid collection White count 31.4 PT 18.5 INR 1.59 Sodium 132 A full consult will follow I discussed the case with radiology since an official report has not been made available for a period of time; they appear to agree with my impression of the MRI Anticipate obtaining a consent for surgery for laminectomy covering all medically necessary levels potentially T10-T12 Entered by: Alec Clemons MD on 09/13/23213 Report Signed by: Alec Clemons MD on 09/13/23216 <<Signature on File>> <Electronically signed by Alec Clemons MD> Report Signed by: on [facility] Work Phone: 1([phone]) 955-307310-21-2023 Progress note Author Alec Clemons [facility] September 13, 2023 2:17am Note Date/Time September 13, 2023 2 :17am [facility] Medical Records Patient: GEOVANNY MEJÍA [address] : 1970 [place], [place] [address] Location: [phone] Unit #: [id number] Status Note/Update Alec Clemons MD Service Dt/Tm: 09/13/23213 Note: GEOVANNY MEJÍA is a 53 yr old F who was admitted on 09/08/23 for INTRA ABDOMINAL ABCESS. 53-year-old female who is currently being treated for an abdominal abscess and has developed difficulty with ambulation MRI scan was completed and the official report is been pending; upon my review it appears there is an extra-axial fluid collection ventral to the thecal sac and thoracic cord at approximately T10-T12 Given the nature of her complaints, a stat MRI scan of the thoracic spine was obtained She is being preop for possible laminectomy and evacuation of fluid collection White count 31.4 PT 18.5 INR 1.59 Sodium 132 A full consult will follow I discussed the case with radiology since an official report has not been made available for a period of time; they appear to agree with my impression of the MRI Anticipate obtaining a consent for surgery for laminectomy covering all medically necessary levels potentially T10-T12 Entered by: Alec Clemons MD on 09/13/23213 Report Signed by: Alec Clemons MD on 09/13/23216 <<Signature on File>> <Electronically signed by Alec Clemons MD> Report Signed by: on [facility] Work Phone: 1(953) 121-115610-20-2023 Progress note Author Craig Rodriguez [facility] September 12, 2023 10:37am Note Date/Time September 12, 2023 1 0:36am [facility] Medical Records Patient: GEOVANNY MEJÍA. : 1970 [place], [place] [address] Location: [address] [place] [address] Unit #: [id number] Progress Note - Hospitalist Craig Rodriguez DO Service Dt/Tm: 09/12/23 1031 Assessment/Plan Assessment/Plan (1) Retroperitoneal abscess: Status: Acute Code(s): K68.19 - Other retroperitoneal abscess Plan: Left sided RP abscess on CT measuring 4.7 X2.6X 4.5 cm. on IV fluids and IV cefazolin IR placed abdominal abscess drain, purulent fluid draining from abscess. Repeat CT of the abdomen and pelvis was done, showing improvement/decrease in the size of the abscess Blood cultures and abscess cultures are positive for MSSA. 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 Continue IV cefazolin per ID. No surgical indication at this point per surgery team. Vitals stable. (2) Sciatica: Status: Acute Qualifiers: Laterality: unspecified laterality Qualified Code(s): M54.30 - Sciatica, unspecified side Code(s): M54.30 - Sciatica, unspecified side Plan: Patient states that this is chronic. On examination, she has significant weakness and decree sensation mostly in her right lower extremity, but also in the left lower extremity. CT lumbar spine is ordered and pending. Neurosurgery will be consulted to follow. No urinary or fecal incontinence or saddle anesthesia. (3) Back pain: Status: Acute Qualifiers: Back pain laterality: unspecified Back pain location: low back pain Chronicity: acute Sciatica laterality: sciatica of right side Sciatica presence: with sciatica Qualified Code(s): M54.41 - Lumbago with sciatica, right side Code(s): M54.9 - Dorsalgia, unspecified Plan: As above. (4) Bacteremia: Status: Acute Code(s): R78.81 - Bacteremia Plan: MSSA bacteremia. Patient is on IV cefazolin. ID following. Repeat blood cultures done on 09/11/2023 are negative for any bacteremia so far. Current Code Status & Diet: 09/08/23 13:19 Code Status Routine Resuscitation Status: Full Code Code Status Order Placed: Code Status Ordered 09/08/23 at 1321 09/09/23 15:04 NPO except Meds and Ice Chips Subjective Subjective: Patient is seen and examined. She is awake, alert and oriented. Patient is complaining of persistent abdominal pain that seems to be overall improving. She is also complaining of a chronic back pain, and she has a significant bilateral lower extremity weakness [right more than left], and complete loss of sensation in the right lower extremity which patient states that it is chronic. Yet, because of laying down for a long period of time, she is getting increasingly weak. Patient will be getting CT lumbar spine on urgent basis, andneurology /neurosurgery consult will follow. Patient Status & Estimated DC Date Patient Registration Status: Inpatient Objective Physical Exam: General: Awake, alert, oriented, no confusion.?intermittent abdominal pain. HEENT: Atraumatic, normocephalic, oral mucosa is intact. Neck: No JVD, trachea is midline. Heart: Regular rate and rhythm, no murmurs or gallops. Lungs: Clear to auscultation bilaterally, no crackles, no wheezes, no rhonchi. Abdomen: Soft, left abdominal tenderness to palpation, abd is distended, no rebound tenderness, positive bowel sounds in all quadrants.? Left abdominal draining catheter Extremities: No edema, no clubbing no cyanosis. Vascular: Good dorsalis pedis pulses bilaterally and popliteal pulses. Skin: No rashes, no discoloration, no lesions. Musculoskeletal/neuro: Patient has no sensation in right lower extremity. She has significant weakness in bilateral lower extremities [right more than left, right lower extremity strength is 1/5, left lower extremity strength is 2/5] Constitutional: Last Vital Signs Temp Pulse Resp BP Pulse Ox O2 Flow Rate 98.9 F 103 H 20 134/66 94 2.0 09/12/23 07:42 09/12/23 07:42 09/12/23 07:42 09/12/23 07:42 09/12/23 07:42 09/12/23 07:42 Intake and Output 09/11/23 09/12/23 09/13/23 06:59 06:59 06:59 Intake Total 2475.52 2724.62 Output Total 1900 2200 Balance 575.52 524.62 Admitting (IV Pump) Weight 83 kg Actual Weight (Kg) 83 kg Data Labs: 09/12/23 03:59 Magnesium 2.2 09/12/23 03:59 WBC 31.4 H RBC 3.49 L Hgb 9.8 L Hct 29.6 L MCV 84.8 MCH 28.0 MCHC 33.0 RDW 16.0 Plt Count 241 09/12/23 03:59 Sodium 132 L Potassium 3.6 Chloride 97 L Carbon Dioxide 25 Anion Gap 10 BUN 17 Creatinine 0.57 L Calcium 7.60 L The last 24 hours of labs have been reviewed. Imaging: I have reviewed the diagnostic images in the EMR. Microbiology: Microbiology 09/11/23 13:40 Blood,Venous Blood Culture - Preliminary No growth after 1 day, cultures held 5 days. 09/11/23 13:35 Blood,Venous Blood Culture - Preliminary No growth after 1 day, cultures held 5 days. 09/08/23 15:46 Abdominal fluid Gram Stain - Final 09/08/23 15:46 Abdominal fluid Body Fluid Culture - Preliminary Staphylococcus aureus 09/08/23 18:20 Blood,Venous Blood Culture - Final Staphylococcus aureus Staphylococcus epidermidis 09/08/23 18:15 Blood,Venous - Final 09/08/23 18:15 Blood,Venous Blood Culture - Final Staphylococcus aureus Medications and Comanagement: Medications reviewed separately. Entered by: Craig Rodriguez DO on 09/12/23 1031 Report Signed by: Craig Rodriguez DO on 09/12/23 1037 <<Signature on File>> <Electronically signed by Craig Rodriguez DO> Report Signed by: on [facility] Work Phone: 1(266) 264-299810-20-2023 Progress note Author Craig Rodriguez [facility] September 12, 2023 10:37am Note Date/Time September 12, 2023 1 0:36am [facility] Medical Records Patient: GEOVANNY MEÍJA1 Yumiko Suh. : 1970 [place] [address] Location: [address] [place] [address] Unit #: [id number] Progress Note - Hospitalist Craig Rodriguez DO Service Dt/Tm: 09/12/23 1031 Assessment/Plan Assessment/Plan (1) Retroperitoneal abscess: Status: Acute Code(s): K68.19 - Other retroperitoneal abscess Plan: Left sided RP abscess on CT measuring 4.7 X2.6X 4.5 cm. on IV fluids and IV cefazolin IR placed abdominal abscess drain, purulent fluid draining from abscess. Repeat CT of the abdomen and pelvis was done, showing improvement/decrease in the size of the abscess Blood cultures and abscess cultures are positive for MSSA. 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 Continue IV cefazolin per ID. No surgical indication at this point per surgery team. Vitals stable. (2) Sciatica: Status: Acute Qualifiers: Laterality: unspecified laterality Qualified Code(s): M54.30 - Sciatica, unspecified side Code(s): M54.30 - Sciatica, unspecified side Plan: Patient states that this is chronic. On examination, she has significant weakness and decree sensation mostly in her right lower extremity, but also in the left lower extremity. CT lumbar spine is ordered and pending. Neurosurgery will be consulted to follow. No urinary or fecal incontinence or saddle anesthesia. (3) Back pain: Status: Acute Qualifiers: Back pain laterality: unspecified Back pain location: low back pain Chronicity: acute Sciatica laterality: sciatica of right side Sciatica presence: with sciatica Qualified Code(s): M54.41 - Lumbago with sciatica, right side Code(s): M54.9 - Dorsalgia, unspecified Plan: As above. (4) Bacteremia: Status: Acute Code(s): R78.81 - Bacteremia Plan: MSSA bacteremia. Patient is on IV cefazolin. ID following. Repeat blood cultures done on 09/11/2023 are negative for any bacteremia so far. Current Code Status & Diet: 09/08/23 13:19 Code Status Routine Resuscitation Status: Full Code Code Status Order Placed: Code Status Ordered 09/08/23 at 1321 09/09/23 15:04 NPO except Meds and Ice Chips Subjective Subjective: Patient is seen and examined. She is awake, alert and oriented. Patient is complaining of persistent abdominal pain that seems to be overall improving. She is also complaining of a chronic back pain, and she has a significant bilateral lower extremity weakness [right more than left], and complete loss of sensation in the right lower extremity which patient states that it is chronic. Yet, because of laying down for a long period of time, she is getting increasingly weak. Patient will be getting CT lumbar spine on urgent basis, andneurology /neurosurgery consult will follow. Patient Status & Estimated DC Date Patient Registration Status: Inpatient Objective Physical Exam: General: Awake, alert, oriented, no confusion.?intermittent abdominal pain. HEENT: Atraumatic, normocephalic, oral mucosa is intact. Neck: No JVD, trachea is midline. Heart: Regular rate and rhythm, no murmurs or gallops. Lungs: Clear to auscultation bilaterally, no crackles, no wheezes, no rhonchi. Abdomen: Soft, left abdominal tenderness to palpation, abd is distended, no rebound tenderness, positive bowel sounds in all quadrants.? Left abdominal draining catheter Extremities: No edema, no clubbing no cyanosis. Vascular: Good dorsalis pedis pulses bilaterally and popliteal pulses. Skin: No rashes, no discoloration, no lesions. Musculoskeletal/neuro: Patient has no sensation in right lower extremity. She has significant weakness in bilateral lower extremities [right more than left, right lower extremity strength is 1/5, left lower extremity strength is 2/5] Constitutional: Last Vital Signs Temp Pulse Resp BP Pulse Ox O2 Flow Rate 98.9 F 103 H 20 134/66 94 2.0 09/12/23 07:42 09/12/23 07:42 09/12/23 07:42 09/12/23 07:42 09/12/23 07:42 09/12/23 07:42 Intake and Output 09/11/23 09/12/23 09/13/23 06:59 06:59 06:59 Intake Total 2475.52 2724.62 Output Total 1900 2200 Balance 575.52 524.62 Admitting (IV Pump) Weight 83 kg Actual Weight (Kg) 83 kg Data Labs: 09/12/23 03:59 Magnesium 2.2 09/12/23 03:59 WBC 31.4 H RBC 3.49 L Hgb 9.8 L Hct 29.6 L MCV 84.8 MCH 28.0 MCHC 33.0 RDW 16.0 Plt Count 241 09/12/23 03:59 Sodium 132 L Potassium 3.6 Chloride 97 L Carbon Dioxide 25 Anion Gap 10 BUN 17 Creatinine 0.57 L Calcium 7.60 L The last 24 hours of labs have been reviewed. Imaging: I have reviewed the diagnostic images in the EMR. Microbiology: Microbiology 09/11/23 13:40 Blood,Venous Blood Culture - Preliminary No growth after 1 day, cultures held 5 days. 09/11/23 13:35 Blood,Venous Blood Culture - Preliminary No growth after 1 day, cultures held 5 days. 09/08/23 15:46 Abdominal fluid Gram Stain - Final 09/08/23 15:46 Abdominal fluid Body Fluid Culture - Preliminary Staphylococcus aureus 09/08/23 18:20 Blood,Venous Blood Culture - Final Staphylococcus aureus Staphylococcus epidermidis 09/08/23 18:15 Blood,Venous - Final 09/08/23 18:15 Blood,Venous Blood Culture - Final Staphylococcus aureus Medications and Comanagement: Medications reviewed separately. Entered by: Craig Rodriguez DO on 09/12/23 1031 Report Signed by: Craig Rodriguez DO on 09/12/23 1037 <<Signature on File>> <Electronically signed by Craig Rodriguez DO> Report Signed by: on [facility] Work Phone: 1(885) 557-186810-19-2023 Progress note Author Evelyne Pena [facility] September 11, 2023 12:20pm Note Date/Time September 11, 2023 1 2:20pm [facility] Case Management Patient: GEOVANNY MEJÍA. : 1970 [place] [address] Location: [phone] Unit #: [id number] Case Management General Note Evelyne Pena RN Service Date: 09/11/23 Case Management General Note - Note Note: 09/11 Patient to d/c to [facility]. [address] [place] [address] [address]. [place] [id number] - Letter Delivered Was Position Statement Letter Delivered?: Yes Entered by: Evelyne Pena RN on 09/11/231218 Report Signed by: Evelyne Pena RN on 09/11/23 1220 <<Signature on File>> <Electronically signed by Evelyne Pena RN> Co-Signed by: on [facility] Work Phone: 1([phone]) 505-963610-19-2023 Progress note Author Evelyne Pena [facility] September 11, 2023 12:20pm Note Date/Time September 11, 2023 1 2:20pm [facility] Case Management Patient: GEOVANNY MEJÍA. : 1970 [place] [address] Location: [phone] Unit #: [id number] Case Management General Note Evelyne Pena RN Service Date: 09/11/23 Case Management General Note - Note Note: 09/11 Patient to d/c to [facility]. [address] [place] [address]. [place], [place] [address] - Letter Delivered Was Position Statement Letter Delivered?: Yes Entered by: Evelyne Pena RN on 09/11/231218 Report Signed by: Evelyne Pena RN on 09/11/23 1220 <<Signature on File>> <Electronically signed by Evelyne Pena RN> Co-Signed by: on [facility] Work Phone: 1([phone]) 680-100010-19-2023 Progress note Author Craig Rodriguez [facility] September 11, 2023 10:47am Note Date/Time September 11, 2023 1 0:47am [facility] Medical Records Patient: GEOVANNY MEJÍA [address] Ale[address] Suh. : 1970 [place], [place] [address] Location: [phone] Unit #: [id number] Progress Note - Hospitalist Craig Rodriguez DO Service Dt/Tm: 09/11/23 1041 Assessment/Plan Assessment/Plan (1) Retroperitoneal abscess: Status: Acute Code(s): K68.19 - Other retroperitoneal abscess Plan: Left sided RP abscess on CT measuring 4.7 X2.6X 4.5 cm. on IV fluids and IV cefazolin IR placed abdominal abscess drain, purulent fluid draining from abscess. Blood cultures and abscess cultures are positive for MSSA. 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 Vitals stable. (2) Sciatica: Status: Acute Qualifiers: Laterality: unspecified laterality Qualified Code(s): M54.30 - Sciatica, unspecified side Code(s): M54.30 - Sciatica, unspecified side Plan: Pain meds as needed. (3) Back pain: Status: Acute Qualifiers: Back pain location: low back pain Chronicity: acute Back pain laterality: unspecified Sciatica presence: with sciatica Sciatica laterality: sciatica of right side Qualified Code(s): M54.41 - Lumbago with sciatica, rightside Code(s): M54.9 - Dorsalgia, unspecified Plan: As above. (4) Bacteremia: Status: Acute Code(s): R78.81 - Bacteremia Plan: MSSA bacteremia. Patient is on IV cefazolin. ID following. Current Code Status & Diet: 09/08/23 13:19 Code Status Routine Resuscitation Status: Full Code Code Status Order Placed: Code Status Ordered 09/08/23 at 1321 09/09/23 15:04 NPO except Meds and Ice Chips Subjective Subjective: Patient is examined and seen. She is awake, alert and oriented. 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 No nausea or vomiting, no fever or chills. Patient was evaluated by infectious disease and the recommendation is to continue IV cefazolin, and switch to oral antibiotic on discharge. Yet, leukocytosis is worsening and patient seems to be having increased abdominal distention. Patient Status & Estimated DC Date Patient Registration Status: Inpatient Objective Physical Exam: General: Awake, alert, oriented, no confusion.?intermittent abdominal pain. HEENT: Atraumatic, normocephalic, oral mucosa is intact. Neck: No JVD, trachea is midline. Heart: Regular rate and rhythm, no murmurs or gallops. Lungs: Clear to auscultation bilaterally, no crackles, no wheezes, no rhonchi. Abdomen: Soft, left abdominal tenderness to palpation, abd is distended, no rebound tenderness, positive bowel sounds in all quadrants.? Left abdominal draining catheter Extremities: No edema, no clubbing no cyanosis. Vascular: Good dorsalis pedis pulses bilaterally and popliteal pulses. Skin: No rashes, no discoloration, no lesions. Musculoskeletal/neuro: No focal neurological deficits.? No motor or sensory deficits.? Constitutional: Last Vital Signs Temp Pulse Resp BP Pulse Ox O2 Flow Rate 100.2 F 103 H 18 118/70 93 2 09/11/23 07:27 09/11/23 07:27 09/11/23 07:27 09/11/23 07:27 09/11/23 07:27 09/11/23 08:35 Intake and Output 09/10/23 09/11/23 09/12/23 06:59 06:59 06:59 Intake Total 2076.51 2475.52 Output Total 1900 1900 Balance 176.51 575.52 Admitting (IV Pump) Weight 83 kg Actual Weight (Kg) 83 kg Data Labs: 09/11/23 04:58 Magnesium 2.3 09/11/23 04:58 WBC 29.8 H RBC 3.54 L Hgb 9.8 L Hct 30.1 L MCV 84.9 MCH 27.7 MCHC 32.6 L RDW 16.1 H Plt Count 180 09/11/23 04:58 Sodium 132 L Potassium 3.7 Chloride 98 L Carbon Dioxide 23 Anion Gap 11 BUN 15 Creatinine 0.55 L Calcium 7.50 L The last 24 hours of labs have been reviewed. Imaging: I have reviewed the diagnostic images in the EMR. Microbiology: Microbiology 09/08/23 18:20 Blood,Venous Blood Culture - Final Staphylococcus aureus Staphylococcus epidermidis 09/08/23 18:15 Blood,Venous - Final 09/08/23 18:15 Blood,Venous Blood Culture - Final Staphylococcus aureus 09/08/23 Unknown Perianal MRSA Screen - Final No growth of MRSA after 2 days. 09/08/23 15:46 Abdominal fluid Gram Stain - Final 09/08/23 15:46 Abdominal fluid Body Fluid Culture - Preliminary Staphylococcus aureus Medications and Comanagement: Medications reviewed separately. Entered by: Craig Rodriguez DO on 09/11/231040 Report Signed by: Criag Rodriguez DO on 09/11/231046 <<Signature on File>> <Electronically signed by Craig Rodriguez DO> Report Signed by: on [facility] Work Phone: [phone] 351-610110-19-2023 Progress note Author Craig Rodriguez [facility] September 11, 2023 10:47am Note Date/Time September 11, 2023 1 0:47am [facility] Medical Records Patient: GEOVANNY MEJÍA. : 1970 [place], [place] [address] Location: [address] [place] [address] Unit #: [id number] Progress Note - Hospitalist Craig Rodriguez DO Service Dt/Tm: 09/11/23 1041 Assessment/Plan Assessment/Plan (1) Retroperitoneal abscess: Status: Acute Code(s): K68.19 - Other retroperitoneal abscess Plan: Left sided RP abscess on CT measuring 4.7 X2.6X 4.5 cm. on IV fluids and IV cefazolin IR placed abdominal abscess drain, purulent fluid draining from abscess. Blood cultures and abscess cultures are positive for MSSA. 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 Vitals stable. (2) Sciatica: Status: Acute Qualifiers: Laterality: unspecified laterality Qualified Code(s): M54.30 - Sciatica, unspecified side Code(s): M54.30 - Sciatica, unspecified side Plan: Pain meds as needed. (3) Back pain: Status: Acute Qualifiers: Back pain location: low back pain Chronicity: acute Back pain laterality: unspecified Sciatica presence: with sciatica Sciatica laterality: sciatica of right side Qualified Code(s): M54.41 - Lumbago with sciatica, rightside Code(s): M54.9 - Dorsalgia, unspecified Plan: As above. (4) Bacteremia: Status: Acute Code(s): R78.81 - Bacteremia Plan: MSSA bacteremia. Patient is on IV cefazolin. ID following. Current Code Status & Diet: 09/08/23 13:19 Code Status Routine Resuscitation Status: Full Code Code Status Order Placed: Code Status Ordered 09/08/23 at 1321 09/09/23 15:04 NPO except Meds and Ice Chips Subjective Subjective: Patient is examined and seen. She is awake, alert and oriented. 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 No nausea or vomiting, no fever or chills. Patient was evaluated by infectious disease and the recommendation is to continue IV cefazolin, and switch to oral antibiotic on discharge. Yet, leukocytosis is worsening and patient seems to be having increased abdominal distention. Patient Status & Estimated DC Date Patient Registration Status: Inpatient Objective Physical Exam: General: Awake, alert, oriented, no confusion.?intermittent abdominal pain. HEENT: Atraumatic, normocephalic, oral mucosa is intact. Neck: No JVD, trachea is midline. Heart: Regular rate and rhythm, no murmurs or gallops. Lungs: Clear to auscultation bilaterally, no crackles, no wheezes, no rhonchi. Abdomen: Soft, left abdominal tenderness to palpation, abd is distended, no rebound tenderness, positive bowel sounds in all quadrants.? Left abdominal draining catheter Extremities: No edema, no clubbing no cyanosis. Vascular: Good dorsalis pedis pulses bilaterally and popliteal pulses. Skin: No rashes, no discoloration, no lesions. Musculoskeletal/neuro: No focal neurological deficits.? No motor or sensory deficits.? Constitutional: Last Vital Signs Temp Pulse Resp BP Pulse Ox O2 Flow Rate 100.2 F 103 H 18 118/70 93 2 09/11/23 07:27 09/11/23 07:27 09/11/23 07:27 09/11/23 07:27 09/11/23 07:27 09/11/23 08:35 Intake and Output 09/10/23 09/11/23 09/12/23 06:59 06:59 06:59 Intake Total 2076.51 2475.52 Output Total 1900 1900 Balance 176.51 575.52 Admitting (IV Pump) Weight 83 kg Actual Weight (Kg) 83 kg Data Labs: 09/11/23 04:58 Magnesium 2.3 09/11/23 04:58 WBC 29.8 H RBC 3.54 L Hgb 9.8 L Hct 30.1 L MCV 84.9 MCH 27.7 MCHC 32.6 L RDW 16.1 H Plt Count 180 09/11/23 04:58 Sodium 132 L Potassium 3.7 Chloride 98 L Carbon Dioxide 23 Anion Gap 11 BUN 15 Creatinine 0.55 L Calcium 7.50 L The last 24 hours of labs have been reviewed. Imaging: I have reviewed the diagnostic images in the EMR. Microbiology: Microbiology 09/08/23 18:20 Blood,Venous Blood Culture - Final Staphylococcus aureus Staphylococcus epidermidis 09/08/23 18:15 Blood,Venous - Final 09/08/23 18:15 Blood,Venous Blood Culture - Final Staphylococcus aureus 09/08/23 Unknown Perianal MRSA Screen - Final No growth of MRSA after 2 days. 09/08/23 15:46 Abdominal fluid Gram Stain - Final 09/08/23 15:46 Abdominal fluid Body Fluid Culture - Preliminary Staphylococcus aureus Medications and Comanagement: Medications reviewed separately. Entered by: Craig Rodriguez DO on 09/11/23 1041 Report Signed by: Craig Rodriguez DO on 09/11/23 1047 <<Signature on File>> <Electronically signed by Craig Rodriguez DO> Report Signed by: on [facility] Work Phone: 1([phone]) [phone] Progress note Author Evelyne Pena [facility] September 10, 2023 3:12pm Note Date/Time September 10, 2023 9 :23am [facility] Case Management Patient: GEOVANNY MEJÍA [address] Yum[address] Suh. : 1970 [place], [place] [address] Location: [phone] Unit #: [id number] Case Management Daily Note Evelyne Pena RN Service Date: 09/10/23 Case Mgmt Daily Note - Plan of Care [employer] Agrees with Attending and Consult Plan: Yes - Patient Preferences & Goals What is the patient's preference?: Services to be Determined Recommended acute discharge goals: Services to be Determined - Hospital Stay Days Day 1 Comment: 09/08 Met with patient in the room. Patient is from [place]. She is up here to visit her sister. Patient reporting she is normally independent. Doesnot have a PCP. Patient would like to use [facility] OP Pharm for meds. Planning to have her cousin pick her up at d/c. Contact is her cousin Ursula. Denies having LW/dPOA. [employer]: Evelyne Pena, RN Day 2 Comment: 09/09 Met with patient in the room. Patient asking to get up and move around. PT/OT to [facility]. S/p L ABD drain placement. Patient agreeable to [facility] for drain mgmt if needed. Reporting she will be going to [facility] at d/c to staywith her cousin Ursula. spoke with patients cousin Ursula via telephone who reports she is ok with [facility] coming to her home if patient would go there at d/c. Ursula reporting patient was homeless in [place] and recently move to [place] with [employer]. [employer]: Evelyne Pena, RN Day 3 Comment: 09/10 D/c needs pending medical course. Jr present. 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 PT/OT. ID c/s. Therapy recs for IPR vs OP PT. Will follow to assist with d/c needs. [employer]: Evelyne Pena, RN - Transportation Mode of Transportation: Private Vehicle - Respiratory Equipment Does the patient have a nebulizer at home?: No - * L * Length of Stay LOS (Including day of Admission and Discharge): 3 LOS Score: 3 - * C * Comorbidities Select All Conditions that Apply: No Comorbidity Condition Comorbidities Total Score: 0 - * E * Emergency Department Visits # of ER visits,6mos prior to admit,excl this admits ER visit: 0 Enter this number or 4 (whichever is smaller): 0 - LACE SCORE LACE Score: 3 - ANTICIPATED DISCHARGE Anticipated Discharge Date: 09/12/23 Is a ARCHIBALD Form Required?: No Entered by: Evelyne Pena RN on 09/10/23 0920 Report Signed by: Evelyne Pena RN on 09/10/23 1512 <<Signature on File>> <Electronically signed by Evelyne Pena RN> Co-Signed by: on [facility] Work Phone: 1([phone]) 728-638010-18-2023 Progress note Author Evelyne Pena [facility] September 10, 2023 3:12pm Note Date/Time September 10, 2023 9 :23am [facility] Case Management Patient: GEOVANNY MEJÍA. : 1970 [place], [place] [address] Location: [address] [place] [address] Unit #: [id number] Case Management Daily Note Evelyne Pena RN Service Date: 09/10/23 Case Mgmt Daily Note - Plan of Care [employer] Agrees with Attending and Consult Plan: Yes - Patient Preferences & Goals What is the patient's preference?: Services to be Determined Recommended acute discharge goals: Services to be Determined - Hospital Stay Days Day 1 Comment: 09/08 Met with patient in the room. Patient is from [place]. She is up here to visit her sister. Patient reporting she is normally independent. Doesnot have a PCP. Patient would like to use [facility] OP Pharm for meds. Planning to have her cousin pick her up at d/c. Contact is her cousin Ursula. Denies having LW/dPOA. [employer]: Evelyne Pena, RN Day 2 Comment: 09/09 Met with patient in the room. Patient asking to get up and move around. PT/OT to eval. S/p L ABD drain placement. Patient agreeable to [facility] for drain mgmt if needed. Reporting she will be going to [facility] at d/c to staywith her cousin Ursula. spoke with patients cousin Ursula via telephone who reports she is ok with [facility] coming to her home if patient would go there at d/c. Ursula reporting patient was homeless in [place] and recently move to [place] with [employer]. [employer]: Evelyne Pena, RN Day 3 Comment: 09/10 D/c needs pending medical course. Jr mullen. Mitali [employer]ATIVE OFFICER. PT/OT. ID c/s. Therapy recs for IPR vs OP PT. Will follow to assist with d/c needs. [employer]: Evelyne Pena, RN - Transportation Mode of Transportation: Private Vehicle - Respiratory Equipment Does the patient have a nebulizer at home?: No - * L * Length of Stay LOS (Including day of Admission and Discharge): 3 LOS Score: 3 - * C * Comorbidities Select All Conditions that Apply: No Comorbidity Condition Comorbidities Total Score: 0 - * E * Emergency Department Visits # of ER visits,6mos prior to admit,excl this admits ER visit: 0 Enter this number or 4 (whichever is smaller): 0 - LACE SCORE LACE Score: 3 - ANTICIPATED DISCHARGE Anticipated Discharge Date: 09/12/23 Is a ARCHIBALD Form Required?: No Entered by: Evelyne Pena RN on 09/10/23 0920 Report Signed by: Evelyne Pena RN on 09/10/23 1512 <<Signature on File>> <Electronically signed by Evelyne Pena RN> Co-Signed by: on [facility] Work Phone: 1(760) 696-821010-18-2023 Progress note Author Craig Rodriguez [facility] September 10, 2023 12:40pm Note Date/Time September 10, 2023 1 2:33pm [facility] Medical Records Patient: GEOVANNY MEJÍA [address] : 1970 [place], [place] [address] Location: [phone] Unit #: [id number] Progress Note - Hospitalist Craig Rodriguez DO Service Dt/Tm: 09/10/23 1230 ADDENDUM: Significant leukocytosis: On IV antibiotic. Continue monitoring with repeat blood blood work daily Addendum Entered by: Craig Rodriguez DO on 09/10/23 at 1240 Addendum Signed by: Craig Rodriguez DO on 09/10/23 1240 <<Signature on File>> <Electronically signed by Craig Rodriguez DO> Addendum Signed by: on Assessment/Plan Assessment/Plan (1) Retroperitoneal abscess: Status: Acute Code(s): K68.19 - Other retroperitoneal abscess Plan: Left sided RP abscess on CT measuring 4.7 X2.6X 4.5 cm. on IV fluids and IV cefazolin IR placed abdominal abscess drain, purulent fluid draining from abscess. Blood cultures and abscess cultures are positive for MSSA. Patient is on Dilaudid [employer]ATIVE OFFICER due to her significant pain Vitals stable. (2) Sciatica: Status: Acute Qualifiers: Laterality: unspecified laterality Qualified Code(s): M54.30 - Sciatica, unspecified side Code(s): M54.30 - Sciatica, unspecified side Plan: Pain meds as needed. (3) Back pain: Status: Acute Qualifiers: Back pain laterality: unspecified Back pain location: low back pain Chronicity: acute Sciatica laterality: sciatica of right side Sciatica presence: with sciatica Qualified Code(s): M54.41 - Lumbago with sciatica, right side Code(s): M54.9 - Dorsalgia, unspecified Plan: As above. (4) Bacteremia: Status: Acute Code(s): R78.81 - Bacteremia Plan: MSSA bacteremia. Patient is on IV cefazolin. ID will be consulted to follow. Current Code Status & Diet: 09/08/23 13:19 Code Status Routine Resuscitation Status: Full Code Code Status Order Placed: Code Status Ordered 09/08/23 at 1321 09/09/23 15:04 NPO except Meds and Ice Chips Subjective Subjective: Patient seen and examined. She is currently on a dilaudid [employer]ATIVE OFFICER pump and still having significant abdominal pain. Abdominal abscess culture is positive for MSSA, and so is the blood culture. The antibiotic has been changed to IV cefazolin. ID will be consulted to follow along. Patient Status & Estimated DC Date Patient Registration Status: Inpatient Objective Physical Exam: General: Awake, alert, oriented, no confusion.?Persistent left abdominal pain. HEENT: Atraumatic, normocephalic, oral mucosa is intact. Neck: No JVD, trachea is midline. Heart: Regular rate and rhythm, no murmurs or gallops. Lungs: Clear to auscultation bilaterally, no crackles, no wheezes, no rhonchi. Abdomen: Soft, left abdominal tenderness to palpation, nondistended, no rebound tenderness, positive bowel sounds in all quadrants. Left abdominal draining catheter Extremities: No edema, no clubbing no cyanosis. Vascular: Good dorsalis pedis pulses bilaterally and popliteal pulses. Skin: No rashes, no discoloration, no lesions. Musculoskeletal/neuro: No focal neurological deficits.? No motor or sensory deficits.? Constitutional: Last Vital Signs Temp Pulse Resp BP Pulse Ox O2 Flow Rate 98.2 F 109 H 20 151/82 H 91 2 09/10/23 10:31 09/10/23 04:16 09/10/23 01:56 09/10/23 10:31 09/10/23 04:16 09/09/23 10:20 Intake and Output 09/09/23 09/10/23 09/11/23 06:59 06:59 06:59 Intake Total 832.41 2076.51 Output Total 1450 1900 Balance -617.59 176.51 Admitting (IV Pump) Weight 83 kg Actual Weight (Kg) 83 kg Data Labs: 09/10/23 05:35 Magnesium 2.1 09/10/23 05:35 WBC 23.3 H RBC 3.58 L Hgb 10.0 L Hct 30.4 L MCV 84.9 MCH 28.0 MCHC 33.0 RDW 16.3 H Plt Count 164 09/10/23 05:35 Sodium 134 L Potassium 3.7 Chloride 101 Carbon Dioxide 23 Anion Gap 10 BUN 16 Creatinine 0.54 L Calcium 7.70 L The last 24 hours of labs have been reviewed. Imaging: I have reviewed the diagnostic images in the EMR. 09/10/23 08:00 CT Abd/Pelvis W/Contrast [id number] Routine Microbiology: Microbiology 09/08/23 18:20 Blood,Venous Blood Culture - Preliminary Staphylococcus aureus 09/08/23 18:15 Blood,Venous - Final 09/08/23 18:15 Blood,Venous Blood Culture - Preliminary Staphylococcus aureus 09/08/23 Unknown Perianal MRSA Screen - Final No growth of MRSA after 2 days. 09/08/23 15:46 Abdominal fluid Gram Stain - Final 09/08/23 15:46 Abdominal fluid Body Fluid Culture - Preliminary Staphylococcus aureus Medications and Comanagement: Medications reviewed separately. Entered by: Craig Rodriguez DO on 09/10/23 1230 Report Signed by: Craig Rodriguez DO on 09/10/23 1240 <<Signature on File>> <Electronically signed by Craig Rodriguez DO> Report Signed by: on [facility] Work Phone: 1([phone]) 458-761610-18-2023 Progress note Author Craig Rodriguez [facility] September 10, 2023 12:40pm Note Date/Time September 10, 2023 1 2:33pm [facility] Medical Records Patient: GEOVANNY MEJÍA[address] : 1970 [place], [place] [address] Location: [facility] [phone] Unit #: [id number] Progress Note - Hospitalist Craig Rodriguez DO Service Dt/Tm: 09/10/23 1230 ADDENDUM: Significant leukocytosis: On IV antibiotic. Continue monitoring with repeat blood blood work daily Addendum Entered by: Craig Rodriguez DO on 09/10/23 at 1240 Addendum Signed by: Craig Rodriguez DO on 09/10/23 1240 <<Signature on File>> <Electronically signed by Craig Rodriguez DO> Addendum Signed by: on Assessment/Plan Assessment/Plan (1) Retroperitoneal abscess: Status: Acute Code(s): K68.19 - Other retroperitoneal abscess Plan: Left sided RP abscess on CT measuring 4.7 X2.6X 4.5 cm. on IV fluids and IV cefazolin IR placed abdominal abscess drain, purulent fluid draining from abscess. Blood cultures and abscess cultures are positive for MSSA. Patient is on Dilaudid [employer]AT[employer] OFFICER due to her significant pain Vitals stable. (2) Sciatica: Status: Acute Qualifiers: Laterality: unspecified laterality Qualified Code(s): M54.30 - Sciatica, unspecified side Code(s): M54.30 - Sciatica, unspecified side Plan: Pain meds as needed. (3) Back pain: Status: Acute Qualifiers: Back pain laterality: unspecified Back pain location: low back pain Chronicity: acute Sciatica laterality: sciatica of right side Sciatica presence: with sciatica Qualified Code(s): M54.41 - Lumbago with sciatica, right side Code(s): M54.9 - Dorsalgia, unspecified Plan: As above. (4) Bacteremia: Status: Acute Code(s): R78.81 - Bacteremia Plan: MSSA bacteremia. Patient is on IV cefazolin. ID will be consulted to follow. Current Code Status & Diet: 09/08/23 13:19 Code Status Routine Resuscitation Status: Full Code Code Status Order Placed: Code Status Ordered 09/08/23 at 1321 09/09/23 15:04 NPO except Meds and Ice Chips Subjective Subjective: Patient seen and examined. She is currently on a dilaudid [employer]LO[employer] CREATIVE OFFICER pump and still having significant abdominal pain. Abdominal abscess culture is positive for MSSA, and so is the blood culture. The antibiotic has been changed to IV cefazolin. ID will be consulted to follow along. Patient Status & Estimated DC Date Patient Registration Status: Inpatient Objective Physical Exam: General: Awake, alert, oriented, no confusion.?Persistent left abdominal pain. HEENT: Atraumatic, normocephalic, oral mucosa is intact. Neck: No JVD, trachea is midline. Heart: Regular rate and rhythm, no murmurs or gallops. Lungs: Clear to auscultation bilaterally, no crackles, no wheezes, no rhonchi. Abdomen: Soft, left abdominal tenderness to palpation, nondistended, no rebound tenderness, positive bowel sounds in all quadrants. Left abdominal draining catheter Extremities: No edema, no clubbing no cyanosis. Vascular: Good dorsalis pedis pulses bilaterally and popliteal pulses. Skin: No rashes, no discoloration, no lesions. Musculoskeletal/neuro: No focal neurological deficits.? No motor or sensory deficits.? Constitutional: Last Vital Signs Temp Pulse Resp BP Pulse Ox O2 Flow Rate 98.2 F 109 H 20 151/82 H 91 2 09/10/23 10:31 09/10/23 04:16 09/10/23 01:56 09/10/23 10:31 09/10/23 04:16 09/09/23 10:20 Intake and Output 09/09/23 09/10/23 09/11/23 06:59 06:59 06:59 Intake Total 832.41 2076.51 Output Total 1450 1900 Balance -617.59 176.51 Admitting (IV Pump) Weight 83 kg Actual Weight (Kg) 83 kg Data Labs: 09/10/23 05:35 Magnesium 2.1 09/10/23 05:35 WBC 23.3 H RBC 3.58 L Hgb 10.0 L Hct 30.4 L MCV 84.9 MCH 28.0 MCHC 33.0 RDW 16.3 H Plt Count 164 09/10/23 05:35 Sodium 134 L Potassium 3.7 Chloride 101 Carbon Dioxide 23 Anion Gap 10 BUN 16 Creatinine 0.54 L Calcium 7.70 L The last 24 hours of labs have been reviewed. Imaging: I have reviewed the diagnostic images in the EMR. 09/10/23 08:00 CT Abd/Pelvis W/Contrast [id number] Routine Microbiology: Microbiology 09/08/23 18:20 Blood,Venous Blood Culture - Preliminary Staphylococcus aureus 09/08/23 18:15 Blood,Venous - Final 09/08/23 18:15 Blood,Venous Blood Culture - Preliminary Staphylococcus aureus 09/08/23 Unknown Perianal MRSA Screen - Final No growth of MRSA after 2 days. 09/08/23 15:46 Abdominal fluid Gram Stain - Final 09/08/23 15:46 Abdominal fluid Body Fluid Culture - Preliminary Staphylococcus aureus Medications and Comanagement: Medications reviewed separately. Entered by: Craig Rodriguez DO on 09/10/23 1230 Report Signed by: Craig Rodriguez DO on 09/10/23 1240 <<Signature on File>> <Electronically signed by Craig Rodriguez DO> Report Signed by: on [facility] Work Phone: 1(121) 165-327010-17-2023 Progress note Author Evelyne Pena [facility] September 09, 2023 3:46pm Note Date/Time September 08, 2023 1 :56pm [facility] Case Management Patient: GEOVANNY MEJÍA. : 1970 [place], [place] [address] Location: [facility] [phone] Unit #: [id number] Case Management Admission Evelyne Pena RN Service Date: 09/08/23 Case Mgmt Admission/Disch Plan - Patient Preferences & Goals What is the patient's preference?: Services to be Determined Recommended acute discharge goals: Services to be Determined - Hospital Stay Day Day 1 Comment: 09/08 Met with patient in the room. Patient is from [place]. She is up here to visit her sister. Patient reporting she is normally independent. Doesnot have a PCP. Patient would like to use [facility] for meds. Planning to have her cousin pick her up at d/c. Contact is her cousin Ursula. Denies having LW/dPOA. [employer]: Evelyne Pena RN - Demographics Current Diagnosis(s): Intra abdominal abscess Information Given by: Patient Primary Insurance: [employer] Family/Caregiver Contact: Ursula Relationship: cousinjeimy Does the patient have VA services?: No Does the patient have a [facility] provider?: No - Readmission Information Was the patient readmitted within the past 30 days?: No Where was the patient admitted from?: Home Does Patient have any Services in Place?: No - Healthcare Decisions Code Status Per Patient Request (Full Code, DNRCC, DNRCCA): Full code Durable Power of [place] Insulation Setter for Health Care: Unknown [place] DNR Comfort Care: Unknown [facility] DNR Comfort Care Arrest: Unknown - Mental Status Prior Mental Status: Alert and Oriented Current Mental Status: Alert and Oriented - Living Situation Home Situation: Lives Alone Home Type: Single Family Home Levels: 1 Stairs: Yes Does the patient drive?: Yes - Support System Support System: Friends - Skilled Days Has patient been in a long-term facility in past 60 days: No - Transportation Mode of Transportation: Private Vehicle - Level of Function Prior Level of Ambulation: Independent Prior Level of Personal Care: Independent Prior Level of Driving: Independent Prior Level of Grocery Shopping: Independent Prior Level of House Keeping: Independent Prior Level of Meal Preparation: Independent - Medications What pharmacy do you use?: [facility] - Food Scarcity Screening -in the past month?: No -within the past 3 months?: No If Yes to either question, notify Manager Union.: No - Discharge Plan Discharge Plan Discussed With: Patient Understood: Yes Barriers to Discharge: Intra abdominal abscess - Admission Completed Admission Assessment is Completed: Yes - * L * Length of Stay LOS (Including day of Admission and Discharge): 2 LOS Score: 2 - * C * Comorbidities Select All Conditions that Apply: No Comorbidity Condition Comorbidities Total Score: 0 - * E * Emergency Department Visits # of ER visits,6mos prior to admit,excl this admits ER visit: 0 Enter this number or 4 (whichever is smaller): 0 - LACE SCORE LACE Score: 2 - ANTICIPATED DISCHARGE Anticipated Discharge Date: 09/11/23 Is a ARCHIBALD Form Required?: No Entered by: Evelyne Pena RN on 09/08/23 7854 Report Signed by: Evelyne Pena RN on 09/09/23 9646 <<Signature on File>> <Electronically signed by Evelyne Pena RN> Co-Signed by: on [facility] Work Phone: [phone] 168-483910-17-2023 Progress note Author Evelyne Pena [facility] September 09, 2023 3:46pm Note Date/Time September 08, 2023 1 :59pm [facility] Case Management Patient: GEOVANNY MEJÍA. : 1970 [place], [place] [address] Location: [address] [place] [address] Unit #: [id number] Social Determinants Evelyne Pena RN Service Date: 09/08/23 Social Determinants of Health - Family & Home What is your current living situation?: I presently have a place to live Problems where you live: No known problems - Money & Resources In past 12 months, food didn't last until money to buy more: Never true Past 12 mos, fear food will run out before able to buy more: Never true In past 12 months, lack of transportation kept you from medical appts, meetings,work, or getting things needed for daily living: No In the past 12 months, utilities in danger of being shut off: No - Social & Emotional Health How often does anyone, including family, friends and others, physically hurt you: Never How often does anyone, including family, friends and others, insult or talk downto you: Never How often does anyone, including family, friends and others, threaten you with harm: Never How often does anyone, including family, friends and others, scream or curse at you: Never Safety Score: 4 Entered by: Evelyne Pena RN on 09/08/23 6672 Report Signed by: Evelyne Pena RN on 09/09/23 8498 <<Signature on File>> <Electronically signed by Evelyne Pena RN> Co-Signed by: on [facility] Work Phone: 1(371) 391-549510-17-2023 Progress note Author Evelyne Pena [facility] September 09, 2023 3:46pm Note Date/Time September 09, 2023 1 1:00am [facility] Case Management Patient: GEOVANNY MEJÍA [address] : 1970 [place], [place] [address] Location: [phone] Unit #: [id number] Case Management Daily Note Evelyne Pena RN Service Date: 09/09/23 Case Mgmt Daily Note - Plan of Care [employer] Agrees with Attending and Consult Plan: Yes - Patient Preferences & Goals What is the patient's preference?: Services to be Determined Recommended acute discharge goals: Services to be Determined - Hospital Stay Days Day 1 Comment: 09/08 Met with patient in the room. Patient is from [place]. She is up here to visit her sister. Patient reporting she is normally independent. Doesnot have a PCP. Patient would like to use [facility] for meds. Planning to have her cousin pick her up at d/c. Contact is her cousin rUsula. Denies having LW/dPOA. [employer]: Evelyne Pena RN Day 2 Comment: 09/09 Met with patient in the room. Patient asking to get up and move around. PT/OT to [facility]. S/p L ABD drain placement. Patient agreeable to [facility] for drain mgmt if needed. Reporting she will be going to [facility] at d/c to staywith her cousin Usrula. CM spoke with patients cousin Ursula via telephone who reports she is ok with [facility] coming to her home if patient would go there at d/c. Ursula reporting patient was homeless in [place] and recently move to [place] with faith Amaya. [employer]: Evelyne Pena, RN - Transportation Mode of Transportation: Private Vehicle - Respiratory Equipment Does the patient have a nebulizer at home?: No - * L * Length of Stay LOS (Including day of Admission and Discharge): 2 LOS Score: 2 - * C * Comorbidities Select All Conditions that Apply: No Comorbidity Condition Comorbidities Total Score: 0 - * E * Emergency Department Visits # of ER visits,6mos prior to admit,excl this admits ER visit: 0 Enter this number or 4 (whichever is smaller): 0 - LACE SCORE LACE Score: 2 - ANTICIPATED DISCHARGE Anticipated Discharge Date: 09/12/23 Is a ARCHIBALD Form Required?: No Entered by: Evelyne Pena RN on 09/09/23 1058 Report Signed by: Evelyne Pena RN on 09/09/23 9706 <<Signature on File>> <Electronically signed by Evelyne Pena RN> Co-Signed by: on [facility] Work Phone: 1([phone]) 704-880910-17-2023 Progress note Author Evelyne Pena [facility] September 09, 2023 3:46pm Note Date/Time September 08, 2023 1 :56pm [facility] Case Management Patient: GEOVANNY MEJÍA [address] : 1970 [place], [place] [address] Location: [address] [place] [address] Unit #: [id number] Case Management Admission Eevlyne Pena RN Service Date: 09/08/23 Case Mgmt Admission/Disch Plan - Patient Preferences & Goals What is the patient's preference?: Services to be Determined Recommended acute discharge goals: Services to be Determined - Hospital Stay Day Day 1 Comment: 09/08 Met with patient in the room. Patient is from [place]. She is up here to visit her sister. Patient reporting she is normally independent. Doesnot have a PCP. Patient would like to use [facility] for meds. Planning to have her cousin pick her up at d/c. Contact is her cousin Ursula. Denies having LW/dPOA. [employer]: Evelyne Pena RN - Demographics Current Diagnosis(s): Intra abdominal abscess Information Given by: Patient Primary Insurance: [employer] [facility] Family/Caregiver Contact: Ursula Relationship: cousinjeimy Does the patient have VA services?: No Does the patient have a [facility] provider?: No - Readmission Information Was the patient readmitted within the past 30 days?: No Where was the patient admitted from?: Home Does Patient have any Services in Place?: No - Healthcare Decisions Code Status Per Patient Request (Full Code, DNRCC, DNRCCA): Full code Durable Power of [place] Insulation Setter for Health Care: Unknown [place] DNR Comfort Care: Unknown [place] DNR Comfort Care Arrest: Unknown - Mental Status Prior Mental Status: Alert and Oriented Current Mental Status: Alert and Oriented - Living Situation Home Situation: Lives Alone Home Type: Single Family Home Levels: 1 Stairs: Yes Does the patient drive?: Yes - Support System Support System: Friends - Skilled Days Has patient been in a long-term facility in past 60 days: No - Transportation Mode of Transportation: Private Vehicle - Level of Function Prior Level of Ambulation: Independent Prior Level of Personal Care: Independent Prior Level of Driving: Independent Prior Level of Grocery Shopping: Independent Prior Level of House Keeping: Independent Prior Level of Meal Preparation: Independent - Medications What pharmacy do you use?: [facility] - Food Scarcity Screening -in the past month?: No -within the past 3 months?: No If Yes to either question, notify Manager Union.: No - Discharge Plan Discharge Plan Discussed With: Patient Understood: Yes Barriers to Discharge: Intra abdominal abscess - Admission Completed CM Admission Assessment is Completed: Yes - * L * Length of Stay LOS (Including day of Admission and Discharge): 2 LOS Score: 2 - * C * Comorbidities Select All Conditions that Apply: No Comorbidity Condition Comorbidities Total Score: 0 - * E * Emergency Department Visits # of ER visits,6mos prior to admit,excl this admits ER visit: 0 Enter this number or 4 (whichever is smaller): 0 - LACE SCORE LACE Score: 2 - ANTICIPATED DISCHARGE Anticipated Discharge Date: 09/11/23 Is a ARCHIBALD Form Required?: No Entered by: Evelyne Pena RN on 09/08/23 5545 Report Signed by: Evelyne Pena RN on 09/09/23 2118 <<Signature on File>> <Electronically signed by Evelyne Pena RN> Co-Signed by: on [facility] Work Phone: 1([phone]) 569-861710-17-2023 Progress note Author Evelyne Pena [facility] September 09, 2023 3:46pm Note Date/Time September 08, 2023 1 :59pm [facility] Case Management Patient: GEOVANNY MEJÍA. : 1970 [place] [address] Location: [phone] Unit #: [id number] Social Determinants Evelyne Pena RN Service Date: 09/08/23 Social Determinants of Health - Family & Home What is your current living situation?: I presently have a place to live Problems where you live: No known problems - Money & Resources In past 12 months, food didn't last until money to buy more: Never true Past 12 mos, fear food will run out before able to buy more: Never true In past 12 months, lack of transportation kept you from medical appts, meetings,work, or getting things needed for daily living: No In the past 12 months, utilities in danger of being shut off: No - Social & Emotional Health How often does anyone, including family, friends and others, physically hurt you: Never How often does anyone, including family, friends and others, insult or talk downto you: Never How often does anyone, including family, friends and others, threaten you with harm: Never How often does anyone, including family, friends and others, scream or curse at you: Never Safety Score: 4 Entered by: Evelyne Pena RN on 09/08/23 1359 Report Signed by: Evelyne Pena RN on 09/09/23 1546 <<Signature on File>> <Electronically signed by Evelyne Pena RN> Co-Signed by: on [facility] Work Phone: 1(910) 542-506110-17-2023 Progress note Author Evelyne Pena [facility] September 09, 2023 3:46pm Note Date/Time September 09, 2023 1 1:00am [facility] Case Management Patient: GEOVANNY MEJÍA. : 1970 [place] [address] Location: [phone] Unit #: [id number] Case Management Daily Note Evelyne Pena RN Service Date: 09/09/23 Case Mgmt Daily Note - Plan of Care [employer] Agrees with Attending and Consult Plan: Yes - Patient Preferences & Goals What is the patient's preference?: Services to be Determined Recommended acute discharge goals: Services to be Determined - Hospital Stay Days Day 1 Comment: 09/08 Met with patient in the room. Patient is from [place]. She is up here to visit her sister. Patient reporting she is normally independent. Doesnot have a PCP. Patient would like to use [facility] for meds. Planning to have her cousin pick her up at d/c. Contact is her cousin Ursula. Denies having LW/dPOA. [employer]: Evelyne Pena, AIRAM Day 2 Comment: 09/09 Met with patient in the room. Patient asking to get up and move around. PT/OT to [facility]. S/p L ABD drain placement. Patient agreeable to [facility] for drain mgmt if needed. Reporting she will be going to [facility] at d/c to staywith her cousin Ursula. spoke with patients cousin Ursula via telephone who reports she is ok with [facility] coming to her home if patient would go there at d/c. Ursula reporting patient was homeless in [place] and recently move to [place] with faith [employer]. [employer]: Evelyne Pena, RN - Transportation Mode of Transportation: Private Vehicle - Respiratory Equipment Does the patient have a nebulizer at home?: No - * L * Length of Stay LOS (Including day of Admission and Discharge): 2 LOS Score: 2 - * C * Comorbidities Select All Conditions that Apply: No Comorbidity Condition Comorbidities Total Score: 0 - * E * Emergency Department Visits # of ER visits,6mos prior to admit,excl this admits ER visit: 0 Enter this number or 4 (whichever is smaller): 0 - LACE SCORE LACE Score: 2 - ANTICIPATED DISCHARGE Anticipated Discharge Date: 09/12/23 Is a ARCHIBALD Form Required?: No Entered by: Evelyne Pena RN on 09/09/23 3715 Report Signed by: Evelyne Pena RN on 09/09/23 2737 <<Signature on File>> <Electronically signed by Evelyne Pena RN> Co-Signed by: on [facility] Work Phone: 1([phone] 186-870810-17-2023 Progress note Author Craig Rodriguez [facility] September 09, 2023 12:41pm Note Date/Time September 09, 2023 1 0:53am [facility] Medical Records Patient: GEOVANNY MEJÍA. : 1970 [place], [place] [address] Location: [facility] [phone] Unit #: [id number] Progress Note - Hospitalist Craig Rodriguez DO Service Dt/Tm: 09/09/23 1052 ADDENDUM: Patient seen and examined. Left retroperitoneal drainage catheter has been placed by IR, and currently has purulent drainage. Patient is complaining of increased pain and requesting more pain medications. No nausea or vomiting and no fever or chills. Addendum Entered by: Craig Rodriguez DO on 09/09/23 at 1241 Addendum Signed by: Craig Rodriguez DO on 09/09/23 1241 <<Signature on File>> <Electronically signed by Craig Rodriguez DO> Addendum Signed by: on Assessment/Plan Assessment/Plan (1) Retroperitoneal abscess: Status: Acute Code(s): K68.19 - Other retroperitoneal abscess Plan: Left sided RP abscess on CT measuring 4.7 X2.6X 4.5 cm. on IV fluids and Zosyn. Blood cultures NTD Surgery team following: IR consult to place abscess drain. Vitals stable. (2) Sciatica: Status: Acute Qualifiers: Laterality: unspecified laterality Qualified Code(s): M54.30 - Sciatica, unspecified side Code(s): M54.30 - Sciatica, unspecified side Plan: Pain meds as needed. (3) Back pain: Status: Acute Qualifiers: Back pain location: low back pain Chronicity: acute Back pain laterality: unspecified Sciatica presence: with sciatica Sciatica laterality: sciatica of right side Qualified Code(s): M54.41 - Lumbago with sciatica, rightside Code(s): M54.9 - Dorsalgia, unspecified Plan: As above. Current Code Status & Diet: 09/08/23 13:19 Code Status Routine Resuscitation Status: Full Code Code Status Order Placed: Code Status Ordered 09/08/23 at 1321 09/08/23 13:22 NPO Subjective Subjective: Patient seen and examined. Patient Status & Estimated DC Date Patient Registration Status: Inpatient Objective Physical Exam: General: Awake, alert, oriented, no confusion.? Intermittent left abdominal pain. HEENT: Atraumatic, normocephalic, oral mucosa is intact. Neck: No JVD, trachea is midline. Heart: Regular rate and rhythm, no murmurs or gallops. Lungs: Clear to auscultation bilaterally, no crackles, no wheezes, no rhonchi. Abdomen: Soft, nontender, nondistended, no rebound tenderness, positive bowel sounds in all quadrants. Extremities: No edema, no clubbing no cyanosis. Vascular: Good dorsalis pedis pulses bilaterally and popliteal pulses. Skin: No rashes, no discoloration, no lesions. Musculoskeletal/neuro: No focal neurological deficits.? No motor or sensory deficits.? Constitutional: Last Vital Signs Temp Pulse Resp BP Pulse Ox O2 Flow Rate 98.1 F 124 H 22 H 111/96 H 96 2.0 09/09/23 10:20 09/09/23 10:20 09/09/23 10:20 09/09/23 10:20 09/09/23 10:18 09/09/23 02:40 Intake and Output 09/08/23 09/09/23 09/10/23 06:59 06:59 06:59 Intake Total 832.41 Output Total 1450 Balance -617.59 Admitting (IV Pump) Weight 83 kg Actual Weight (Kg) 83 kg Data Labs: 09/08/23 09/09/23 18:27 03:37 Lactic Acid 1.1 Magnesium 2.1 09/08/23 09/09/23 18:27 03:36 WBC 24.9 H 18.2 H RBC 3.61 L 3.73 L Hgb 10.3 L 10.6 L Hct 30.6 L 31.8 L MCV 84.8 85.4 MCH 28.6 28.4 MCHC 33.7 33.3 RDW 15.7 16.0 Plt Count 213 172 09/08/23 09/09/23 18:27 03:37 Sodium 134 L 132 L Potassium 3.7 3.8 Chloride 98 L 97 L Carbon Dioxide 27 26 Anion Gap 9 9 BUN 24 H 22 H Creatinine 0.63 0.65 Calcium 8.10 L 8.10 L The last 24 hours of labs have been reviewed. Imaging: I have reviewed the diagnostic images in the EMR. 09/08/23 13:48 Abd Right Upper Quadrant US [US Abd Right Upper Quadrant] Routine Microbiology: Microbiology 09/08/23 18:20 Blood,Venous Blood Culture - Preliminary Gram positive cocci- clusters 09/08/23 18:15 Blood,Venous - Final 09/08/23 18:15 Blood,Venous Blood Culture - Preliminary Gram positive cocci- clusters 09/08/23 Unknown Perianal MRSA Screen - Preliminary No growth of MRSA after 1 day. 09/08/23 15:46 Abdominal fluid Body Fluid Culture - Preliminary Gram positive cocci- clusters Medications and Comanagement: Medications reviewed separately. Entered by: Craig Rodriguez DO on 09/09/23 1052 Report Signed by: Craig Rodriguez DO on 09/09/23 1230 <<Signature on File>> <Electronically signed by Craig Rodriguez DO> Report Signed by: on [facility] Work Phone: 1([phone]) 695-890910-17-2023 Progress note Author Craig Rodriguez [facility] September 09, 2023 12:41pm Note Date/Time September 09, 2023 1 0:53am [facility] Medical Records Patient: GEOVANNY MEJÍA [address] : 1970 [place], [place] [address] Location: [phone] Unit #: [id number] Progress Note - Hospitalist Craig Rodriguez DO Service Dt/Tm: 09/09/23 1052 ADDENDUM: Patient seen and examined. Left retroperitoneal drainage catheter has been placed by IR, and currently has purulent drainage. Patient is complaining of increased pain and requesting more pain medications. No nausea or vomiting and no fever or chills. Addendum Entered by: Craig Rodriguez DO on 09/09/23 at 1241 Addendum Signed by: Craig Rodriguez DO on 09/09/23 1241 <<Signature on File>> <Electronically signed by Craig Rodriguez DO> Addendum Signed by: on Assessment/Plan Assessment/Plan (1) Retroperitoneal abscess: Status: Acute Code(s): K68.19 - Other retroperitoneal abscess Plan: Left sided RP abscess on CT measuring 4.7 X2.6X 4.5 cm. on IV fluids and Zosyn. Blood cultures NTD Surgery team following: IR consult to place abscess drain. Vitals stable. (2) Sciatica: Status: Acute Qualifiers: Laterality: unspecified laterality Qualified Code(s): M54.30 - Sciatica, unspecified side Code(s): M54.30 - Sciatica, unspecified side Plan: Pain meds as needed. (3) Back pain: Status: Acute Qualifiers: Back pain location: low back pain Chronicity: acute Back pain laterality: unspecified Sciatica presence: with sciatica Sciatica laterality: sciatica of right side Qualified Code(s): M54.41 - Lumbago with sciatica, rightside Code(s): M54.9 - Dorsalgia, unspecified Plan: As above. Current Code Status & Diet: 09/08/23 13:19 Code Status Routine Resuscitation Status: Full Code Code Status Order Placed: Code Status Ordered 09/08/23 at 1321 09/08/23 13:22 NPO Subjective Subjective: Patient seen and examined. Patient Status & Estimated DC Date Patient Registration Status: Inpatient Objective Physical Exam: General: Awake, alert, oriented, no confusion.? Intermittent left abdominal pain. HEENT: Atraumatic, normocephalic, oral mucosa is intact. Neck: No JVD, trachea is midline. Heart: Regular rate and rhythm, no murmurs or gallops. Lungs: Clear to auscultation bilaterally, no crackles, no wheezes, no rhonchi. Abdomen: Soft, nontender, nondistended, no rebound tenderness, positive bowel sounds in all quadrants. Extremities: No edema, no clubbing no cyanosis. Vascular: Good dorsalis pedis pulses bilaterally and popliteal pulses. Skin: No rashes, no discoloration, no lesions. Musculoskeletal/neuro: No focal neurological deficits.? No motor or sensory deficits.? Constitutional: Last Vital Signs Temp Pulse Resp BP Pulse Ox O2 Flow Rate 98.1 F 124 H 22 H 111/96 H 96 2.0 09/09/23 10:20 09/09/23 10:20 09/09/23 10:20 09/09/23 10:20 09/09/23 10:18 09/09/23 02:40 Intake and Output 09/08/23 09/09/23 09/10/23 06:59 06:59 06:59 Intake Total 832.41 Output Total 1450 Balance -617.59 Admitting (IV Pump) Weight 83 kg Actual Weight (Kg) 83 kg Data Labs: 09/08/23 09/09/23 18:27 03:37 Lactic Acid 1.1 Magnesium 2.1 09/08/23 09/09/23 18:27 03:36 WBC 24.9 H 18.2 H RBC 3.61 L 3.73 L Hgb 10.3 L 10.6 L Hct 30.6 L 31.8 L MCV 84.8 85.4 MCH 28.6 28.4 MCHC 33.7 33.3 RDW 15.7 16.0 Plt Count 213 172 09/08/23 09/09/23 18:27 03:37 Sodium 134 L 132 L Potassium 3.7 3.8 Chloride 98 L 97 L Carbon Dioxide 27 26 Anion Gap 9 9 BUN 24 H 22 H Creatinine 0.63 0.65 Calcium 8.10 L 8.10 L The last 24 hours of labs have been reviewed. Imaging: I have reviewed the diagnostic images in the EMR. 09/08/23 13:48 Abd Right Upper Quadrant US [US Abd Right Upper Quadrant] Routine Microbiology: Microbiology 09/08/23 18:20 Blood,Venous Blood Culture - Preliminary Gram positive cocci- clusters 09/08/23 18:15 Blood,Venous - Final 09/08/23 18:15 Blood,Venous Blood Culture - Preliminary Gram positive cocci- clusters 09/08/23 Unknown Perianal MRSA Screen - Preliminary No growth of MRSA after 1 day. 09/08/23 15:46 Abdominal fluid Body Fluid Culture - Preliminary Gram positive cocci- clusters Medications and Comanagement: Medications reviewed separately. Entered by: Craig Rodriguez DO on 09/09/23 1052 Report Signed by: Craig Rodriguez DO on 09/09/23 1230 <<Signature on File>> <Electronically signed by Craig Rodriguez DO> Report Signed by: on [facility] Work Phone: 1([phone]) 285-321710-16-2023 Progress note Author Charity Adames [facility] September 08, 2023 7:13pm Note Date/Time September 08, 2023 5 :11pm [facility] Medical Records Patient: GEOVANNY MEJÍA. : 1970 [place], [place] [address] Location: [phone] Unit #: [id number] Pharmacy Daily Note Charity Adames PharmD Service Dt/Tm: 09/08/231706 Pharmacy - Patient Information Patient Information: Name: GEOVANNY MEJÍA Age/Sex: 53 F Admit Date: 09/08/23 Admit Dx: INTRA ABDOMINAL ABCESS. Vital Signs: Vital Signs - 8 hr Temp Pulse Resp BP Pulse Ox O2 Flow Rate 09/08/23 15:51 100 18 143/58 H 99 09/08/23 15:46 102 H 18 139/101 H 100 2 09/08/23 15:42 107 H 22 H 140/108 H 99 2 09/08/23 15:53 107 H 22 H 152/102 H 99 2 09/08/23 15:37 105 H 18 156/102 H 25 2 09/08/23 15:37 105 H 21 H 94 2 09/08/23 13:27 100 20 147/93 H 93 09/08/23 09:51 2 09/08/23 14:00 97 128/68 97 09/08/23 12:30 104 H 107/78 92 09/08/23 12:00 107 H 115/53 L 90 09/08/23 11:00 90 112/89 89 09/08/23 11:00 94 112/89 93 09/08/23 10:45 88 128/79 93 09/08/23 10:30 90 111/72 91 09/08/23 10:15 88 140/74 91 09/08/23 13:30 108 H 147/93 H 93 2 09/08/23 10:00 88 129/81 92 09/08/23 09:57 98.3 F 90 16 125/78 94 2.0 Pharmacy Consult - Vancomycin Consulting Physician: Ankush Infectious Diagnosis: intra abdominal abscess Dosing Weight: 66kg Antibiotic Regimen: Antimicrobial: Date Initiated: Date Completed: vanc 09/08 zosyn 09/08 Assessment: Vancomycin AUC/MILKA Dosing Dosing Model: 1 compartment Goal AUC/MILKA: mg-hr/L Date: sCr: CrCL: Current Orders: Level 1: Level 2: AUC24: Dose Change: 09/08/23 0.63 88 vanc 1500mg x1 --- --- --- vanc 1000m q12h Plan: vanc 1500mg x1, then vanc 1000mg q12h Predicted AUC24: TBD mg-hr/L Next Level(s): 09/09 @ 0900 Notes: 09/08 Pt started on broad spectrum abx empirically for possible intra abdominal abscess. S/P drain placement per IR, culture received. BC ordered. Will give vanc 1500mg loading dose, followed by vanc 1000mg q12h. Level in am. -ER Data: Temperature 98.3 F Entered by: Charity Adames on 09/08/231706 Report Signed by: Charity Adames on 09/08/231912 <<Signature on File>> <Electronically signed by Charity Adames PharmD> Co-Signed by: on [facility] Work Phone: 1(606) 269-630910-16-2023 Progress note Author Charity Adames [facility] September 08, 2023 7:13pm Note Date/Time September 08, 2023 5 :11pm [facility] Medical Records Patient: GEOVANNY MEJÍA [address] : 1970 [place], [place] [address] Location: [facility] [phone] Unit #: [id number] Pharmacy Daily Note Charity Adames PharmD Service Dt/Tm: 09/08/231706 Pharmacy - Patient Information Patient Information: Name: GEOVANNY MEJÍA Age/Sex: 53 F Admit Date: 09/08/23 Admit Dx: INTRA ABDOMINAL ABCESS. Vital Signs: Vital Signs - 8 hr Temp Pulse Resp BP Pulse Ox O2 Flow Rate 09/08/23 15:51 100 18 143/58 H 99 09/08/23 15:46 102 H 18 139/101 H 100 2 09/08/23 15:42 107 H 22 H 140/108 H 99 2 09/08/23 15:53 107 H 22 H 152/102 H 99 2 09/08/23 15:37 105 H 18 156/102 H 25 2 09/08/23 15:37 105 H 21 H 94 2 09/08/23 13:27 100 20 147/93 H 93 09/08/23 09:51 2 09/08/23 14:00 97 128/68 97 09/08/23 12:30 104 H 107/78 92 09/08/23 12:00 107 H 115/53 L 90 09/08/23 11:00 90 112/89 89 09/08/23 11:00 94 112/89 93 09/08/23 10:45 88 128/79 93 09/08/23 10:30 90 111/72 91 09/08/23 10:15 88 140/74 91 09/08/23 13:30 108 H 147/93 H 93 2 09/08/23 10:00 88 129/81 92 09/08/23 09:57 98.3 F 90 16 125/78 94 2.0 Pharmacy Consult - Vancomycin Consulting Physician: Ankush Infectious Diagnosis: intra abdominal abscess Dosing Weight: 66kg Antibiotic Regimen: Antimicrobial: Date Initiated: Date Completed: vanc 09/08 zosyn 09/08 Assessment: Vancomycin AUC/MILKA Dosing Dosing Model: 1 compartment Goal AUC/MILKA: mg-hr/L Date: sCr: CrCL: Current Orders: Level 1: Level 2: AUC24: Dose Change: 09/08/23 0.63 88 vanc 1500mg x1 --- --- --- vanc 1000m q12h Plan: vanc 1500mg x1, then vanc 1000mg q12h Predicted AUC24: TBD mg-hr/L Next Level(s): 09/09 @ 0900 Notes: 09/08 Pt started on broad spectrum abx empirically for possible intra abdominal abscess. S/P drain placement per IR, culture received. BC ordered. Will give vanc 1500mg loading dose, followed by vanc 1000mg q12h. Level in am. -ER Data: Temperature 98.3 F Entered by: Charity Adames on 09/08/23 1707 Report Signed by: Charity Adames on 09/08/231912 <<Signature on File>> <Electronically signed by Charity Adames PharmD> Co-Signed by: on [facility] Work Phone: 1([phone]) 734-796910-16-2023 [facility] Medical Records Patient: GEOVANNY MEJÍA [address] : 1970 [place], [place] [address] Location: [facility] [phone] Unit #: [id number] IR Pre Procedure Note Freddy Guevara MD Service Dt/Tm: 09/08/23 1538 Indication for Procedure: Please refer to the reason for exam on the order in the EMR. History of Present Illness: GEOVANNY MEJÍA is a 53 year old F being seen for INTRA ABDOMINAL ABCESS Social History: Smoking Status: Former smoker Type of Tobacco: Cigarettes Smoking Amount: < 1 pack per day Smoking Stop Date: 09/05/23 Family History: (Updated 09/08/23 @ 14:51 by Bryant Epperson APRN, FLOOR LAYER HELPER) Denies family history of No pertinent family history Allergies/Adverse Reactions No Known Drug Allergies Allergy (Verified 09/08/23 09:58) Plan/Planned Procedure: fluid collection drainage Physical Exam Vital Signs: Last Vital Signs Temp Pulse Resp BP Pulse Ox O2 Flow Rate 98.3 F 108 H 20 147/93 H 93 2 09/08/23 09:57 09/08/23 13:30 09/08/23 13:27 09/08/23 13:30 09/08/23 13:30 09/08/23 13:30 Right Lobe(s) Lung Sounds: Anterior, Posterior and Diminished in Base Left Lobe(s) Lung Sounds: Anterior, Posterior and Diminished in Base Procedure HANDP dictated by Medical Staff Member History Reviewed, Patient Examined: No changes Procedure Planned Medication: Lidocaine, Versed and Fentanyl ASA Classification: Class II :A patient with mild to moderate systemic disease Mallampati Score: Class II. Complete visualization of the uvula Pre-Procedure: Pre-Procedure Diagnostic studies complete and results available, Previous Sedation/Anesthesia experiences assessed, Patient is an appropriate candidate to undergo the planned procedure, Discussed Procedure/Sedation risks, benefits, and expectations, Patient immediately reassessed prior to procedure, Airway assessed, able to hyper extend neck, and No obvious loose teeth or visible obstruction Medications Reviewed: Medications Reviewed and No additions/deletions/interactions of anticipated meds in procedure Entered by: Freddy Guevara on 09/08/231537 Report Signed by: Freddy Guevara MD on 09/08/231538 < > Report Signed by: [facility]10-16-2023 History and physical note Author Willy Lechuga [facility] September 08, 2023 2:48pm Note Date/Time September 08, 2023 1 :58pm [facility] Medical Records Patient: GEOVANNY MEJÍA. : 1970 [place], [place] [address] Location: [address] [place] [address] Unit #: [id number] History and Physical Willy Lechuga ([facility]) Date of Entry Into Hospital: 09/08/23 Date of Service: 09/08/23 Time Seen: 13:54 Patient Information: Primary Care Provider: None Chief Complaint: INTRA ABDOMINAL ABCESS History Obtained From: Patient and EMR History of Present Illness: 53 old female with a past medical history of hypertension, no home medications on file, initially transferred from [facility] for possible intra-abdominal abscess. History and physical is limited due to no records available and patient was in pain at time of my clinical exam. As per EMR I did see that she had a left retroperitoneal fluid collection with moderate inflammation measuring4.7 X2.6X 4.5 cm with possible abscess formation. She was subsequently transferred to [facility] for general surgery consultation. On arrival as per RN she was complaining of some back pain, she does have a history of sciatica and takes Neurontin 600 mg at home however her pain significantly worsened when I went into the room and she had some rigidity upon clinical exam but no tenderness. She did have significant back pain. I did look at CT lumbarspine done at outside facility which was last night, this did not show any acutefracture. She does have significant multilevel degenerative disease which is stable other than slightly more prominent bulging disc at L2-L3 vertebrae and a 2 mm nonobstructing kidney stone on the left side. I did order another left lateral abdominal x-ray to rule out any intraperitonealair stat and give her fentanyl for immediate pain control, I did discuss with general surgery Dr Pimentel stat and they said that they were going to evaluate the patient, patient was started on IV fluids and Zosyn with pancultures orderedwe will continue to follow closely. Patient Registration Status: Inpatient Allergies/Adverse Reactions No Known Drug Allergies Allergy (Verified 09/08/23 09:58) Past Medical History Medical History (Updated 09/08/23 @ 14:48 by Willy Lechuga ([facility])MD) HTN (hypertension) Social History Smoking Status: Former smoker Type of Tobacco: Cigarettes Smoking Amount: < 1 pack per day Smoking Stop Date: 09/05/23 Review of Systems Other: REVIEW OF SYSTEMS: Constitutional: Positive for back pain. Respiratory: Negative for shortness of breath, wheezing Cardiovascular: Negative for chest pain, palpitations Gastrointestinal: Negative for abdominal pain. Musculoskeletal: Back pain Physical Exam Last Vital Signs Temp Pulse Resp BP Pulse Ox O2 Flow Rate 98.3 F 108 H 20 147/93 H 93 2 09/08/23 09:57 09/08/23 13:30 09/08/23 13:27 09/08/23 13:30 09/08/23 13:30 09/08/23 13:30 Height (Ft & In) 5 ft 4 in Admitting (IV Pump) Weight 83 kg Actual Weight (Kg) 83 kg Physical Exam: General appearance: Appears in mild to moderate distress. Eyes: Sclera clear, pupils equal ENT: Moist mucus membranes, no thrush. Trachea midline. Cardiovascular: Regular rhythm, normal S1, S2. No murmur, gallop, rub. No edema in lower extremities Respiratory: Clear to auscultation bilaterally, no wheeze, good inspiratory effort Gastrointestinal: Guarding, bowel sounds positive. No tenderness. Musculoskeletal: Mild to moderate back tenderness. Assessment/Plan (1) Retroperitoneal abscess: Status: Acute Plan: Left sided RP abscess on CT measuring 4.7 X2.6X 4.5 cm. Continue IV fluids and Zosyn for now. Blood cultures taken. We will do pain control and discussed with general surgery stat as above. Will trend lactate and stat CBC and BMP ordered. Keep on Tele. Vitals stable for now. We will continue to follow closely. (2) Sciatica: Status: Acute Qualifiers: Laterality: unspecified laterality Qualified Code(s): M54.30 - Sciatica, unspecified side Plan: We will give 1 dose of fentanyl followed by IV pain medication as needed. Continue to follow closely. (3) Back pain: Status: Acute Qualifiers: Back pain location: low back pain Chronicity: acute Back pain laterality: unspecified Sciatica presence: with sciatica Sciatica laterality: sciatica of right side Qualified Code(s): M54.41 - Lumbago with sciatica, rightside Plan: As above. cc: Willy PerezMERCY MEDICAL CENTERAnika Lechuga MD; None Dictated by: Willy Lechuga MD (SCP) on 09/08/23 1354 Entered by: Willy Lechuga MD (SCP) on 09/08/23 1354 Report Signed by: Willy Lechuga MD (SCP) on 09/08/23 3262 <<Signature on File>> <Electronically signed by Willy Lechuga MD (SCP)> Report Signed by: on [facility] Work Phone: 1(189) 902-453710-16-2023 [facility] History of Present illness Narrative* Aneta Valderrama MD - 08/28/2023 4:35 PM EDT Images from the original note were not included. Geovanny Ricky 1970 Impression/Plan: Problem List Items Addressed This Visit None Visit Diagnoses Spondylolisthesis of lumbar region - Primary Relevant Orders XR Lumbar Spine Standard with Flex/Ext 4+ Views Ambulatory Ref to [facility] (PT/OT/ST) Lumbar radiculopathy Relevant Orders XR Lumbar Spine Standard with Flex/Ext 4+ Views Ambulatory Ref to [facility] (PT/OT/ST) Patient's presentation may be in keeping with possible lumbar radiculopathy or neurogenic claudication. She has not optimized nonoperative care at this time, therefore referred her for 6 weeks of physical therapy and have given a home exercise program. Patient notes having had a recent MRI back in [place] approximately June 2023. My team will arrange to obtain this imaging and report. I will follow-up with the patient in approximately 6 weeks, with lumbar flexion-extension x-rays prior to arrival, to reassess her symptoms. Return in about 6 weeks (around 10/09/2023) for with x-ray prior to appointment. Clinical Findings: Geovanny Mejía is a 53 y.o. female person who is here for initial evaluation of low back pain and bilateral lower extremity symptoms. Patient is visiting from [place] and is staying with her sister in [place]. She was seen at [facility] ED on 08/06/2023 for back pain and bilateral lower extremity symptoms. She was discharged on pain medications and referred to our clinic. Patient notes a history of chronic low back pain that worsened approximately February 2023 with new onset of bilateral lower extremity symptoms. She describes constant low back pain with sharp, radiating pain in the bilateral posterior thighs to her knees. She notes the symptoms are worse with walking, bending, twisting actions, as well as with lying down. She notes on her left lower extremity the sharp pain at times radiates in the posterior leg to the ankle. She denies any areas of numbness in the bilateral lower extremities. She does note generalized weakness as well in the lower extremities with her legs often giving out on her with prolonged walking or standing. She denies any bowel incontinence, bladder retention, or saddle anesthesia symptoms. Patient has had previous neck surgery in [facility] approximately 10 to 11 years ago per patient. Documentation of this is unavailable to me at this time. Patient has taken anti-inflammatory medications for this. Patient has not completed recent physical therapy for this. Past Medical History: Diagnosis Date Arthritis Asthma There is no problem list on file for this patient. She has a current medication list which includes the following prescription(s): gabapentin and naloxone. Allergies: Patient has no known allergies. Past Surgical History: Procedure Laterality Date SECTION HYSTERECTOMY NECK SURGERY SHOULDER SURGERY Right Social Hx: Single, she reports that she has never smoked. She has never used smokeless tobacco. Patient reports that she does not currently use alcohol. Patient reports that she does not currently use drugs. Family Hx: family history is not on file. Review of Systems: Her review of systems as documented in the MA note is reviewed. Physical Exam VS: Height: 5' 4 , Weight: 80.3 kg (177 lb) , Body mass index is 30.38 kg/m ., BP: (!) 156/74 Appearance: Well kept, normally developed Psych: Alert, normal mood and affect Eyes: Anicteric Cardiovascular: No lower extremity edema, extremities warm Respiratory: Breathing unlabored Skin: no rashes Musculoskeletal: grossly intact motor strength bilateral L2-S1. Straight leg raise neg Neurologic: Sensation intact to light touch bilateral L2-S1. Reflexes are 2+ patella and ankle bilaterally. Babinski neg. No clonus. Gait/Station: ambulates with a cane and broad based unsteady gait Global sagittal and coronal balance are within normal limits. Skin on the lower back is healthy with no rashes, lesions Previous cervical spine surgical scar unremarkable. No excessive kyphosis or scoliosis. Lumbar spine range of motion is limited by pain and stiffness. Bilateral lower extremity range of motion is within normal limits with no increased pain. No obvious hip, knee, or ankle pathology bilaterally Bilateral lower extremities are well perfused with no signs of DVT. Imaging: Independent review of images: X-ray lumbar spine 08/06/2023 - L4-5 grade 1 anterolisthesis No areas of severe DDD Reported as IMPRESSION: FINDINGS/ 1. Approximately 10 mm anterolisthesis of L4 on L5 likely due to severe lower lumbar facet arthropathy. Given patient's history of left lower extremity radiculopathy, may relate to left foraminal narrowing at this level. This would be better evaluated with nonemergent MRI. 2. At least moderate degenerative disc disease from L2 through S1. 3. Mild dextrocurvature of the lumbar spine with slight right lateral listhesis of L2 on L3 on the frontal view. 4. Osteopenia. 5. No radiographic evidence of acute osseous abnormality of the lumbar spine. No significant vertebral body height loss. CT lumbar spine 10/12/2022- Reported as This note was generated by [employer] voice recognition software and as a result, grammatical or spelling errors may occur using this program. Aneta Valderrama MD Spine Surgery [facility] * Aura Patterson MA - 08/28/2023 3:30 PM EDT Review of Systems Constitutional: Positive for activity change. Musculoskeletal: Positive for back pain. Psychiatric/Behavioral: The patient is nervous/anxious. All other systems reviewed and are negative. * Lindsay Liu PA-C - 08/28/2023 3:10 PM EDT . documented in this [id number] Instructions* Patient Instructions* Aneta Valderrama MD - 08/28/2023 4:27 PM EDT Images from the original note were not included. Low Back - Exercises: For your exercise program I want you to perform 2 types of exercises: 1. General fitness exercise, and 2. Low back specific strengthening exercises. 1. Some form of general fitness exercise is important to help your overall conditioning, improve your endorphin level, and this also helps strengthen your core if you focus to maintain your trunk in a neutral posture while you pursue those fitness exercises. The simplest form of exercise is a walking program. Try to work up to 30 minutes of brisk walking daily. If you are unable to tolerate that much walking, try breaking it up into 2 15-minute segments. Other forms of fitness exercise could include stationary bicycling, outdoor bicycling, an elliptical clipper counters, or swimming. Swimming is often the best tolerated form of fitness exercise. 2. Low Back Pain: Exercises These exercises aim to strengthen, and NOT stretch your back. It's also important to do regular exercise for general fitness, ideally 30 minutes a day. Keep your hamstrings stretched also, but try to avoid stretching your back. Your Care Instructions Here are some examples of typical rehabilitation exercises for your condition. Start each exercise slowly. Ease off the exercise if you start to have pain. Your doctor or physical therapist will tell you when you can start these exercises and which ones will work best for you. How to do the exercises Alternate arm and leg (bird dog) exercise Note: Do this exercise slowly. Try to keep your body straight at all times, and do not let one hip drop lower than the other. Start on the floor, on your hands and knees. Tighten your belly muscles. Raise one leg off the floor, and hold it straight out behind you. Be careful not to let your hip drop down, because that will twist your trunk. Hold for about 6 seconds, then lower your leg and switch to the other leg. Repeat 8 to 12 times on each leg. Over time, work up to holding for 10 to 30 seconds each time. If you feel stable and secure with your leg raised, try raising the opposite arm straight out in front of you at the same time. Btyu-rk-ovhug exercise Lie on your back with your knees bent and your feet flat on the floor. Bring one knee to your chest, keeping the other foot flat on the floor (or keeping the other leg straight, whichever feels better on your lower back). Keep your lower back pressed to the floor. Hold for at least 15 to 30 seconds. Relax, and lower the knee to the starting position. Repeat with the other leg. Repeat 2 to 4 times with each leg. To get more stretch, put your other leg flat on the floor while pulling your knee to your chest. Curl-ups Lie on the floor on your back with your knees bent at a 90-degree angle. Your feet should be flat on the floor, about 12 inches from your buttocks. Cross your arms over your chest. If this bothers your neck, try putting your hands behind your neck(not your head), with your elbows spread apart. Slowly tighten your belly muscles and raise your shoulder blades off the floor. Keep your head in line with your body, and do not press your chin to your chest. Hold this position for 1 or 2 seconds, then slowly lower yourself back down to the floor. Repeat 8 to 12 times. Pelvic tilt exercise Lie on your back with your knees bent. Brace your stomach. This means to tighten your muscles by pulling in and imagining your belly button moving toward your spine. You should feel like your back is pressing to the floor and your hips and pelvis are rocking back. Hold for about 6 seconds while you breathe smoothly. Repeat 8 to 12 times. Heel dig bridging Lie on your back with both knees bent and your ankles bent so that only your heels are digging intothe floor. Your knees should be bent about 90 degrees. Then push your heels into the floor, squeeze your buttocks, and lift your hips off the floor until your shoulders, hips, and knees are all in a straight line. Hold for about 6 seconds as you continue to breathe normally, and then slowly lower your hips back down to the floor and rest for up to 10 seconds. Do 8 to 12 repetitions. Hamstring stretch in doorway Lie on your back in a doorway, with one leg through the open door. Slide your leg up the wall to straighten your knee. You should feel a gentle stretch down the back of your leg. Hold the stretch for at least 15 to 30 seconds. Do not arch your back, point your toes, or bend either knee. Keep one heel touching the floor and the other heel touching the wall. Repeat with your other leg. Do 2 to 4 times for each leg. Hip flexor stretch Kneel on the floor with one knee bent and one leg behind you. Place your forward knee over your foot. Keep your other knee touching the floor. Slowly push your hips forward until you feel a stretch in the upper thigh of your rear leg. Hold the stretch for at least 15 to 30 seconds. Repeat with your other leg. Do 2 to 4 times on each side. Wall sit Stand with your back 10 to 12 inches away from a wall. Lean into the wall until your back is flat against it. Slowly slide down until your knees are slightly bent, pressing your lower back into the wall. Hold for about 6 seconds, then slide back up the wall. Repeat 8 to 12 times. Follow-up care is a reyes part of your treatment and safety. Be sure to make and go to all appointments, and call your doctor if you are having problems. It's also a good idea to know your test resultsand keep a list of the medicines you take. Where can you learn more? Log into your personal health record on [email or web address] and enter Z938 in the Education box to learn more about Low Back Pain: Exercises. Current as of: April 14, 2015 Content Version: 10.6 2437-7490 [employer]. Care instructions adapted under license by your healthcare professional. If you have questions about a medical condition or this instruction, always ask your healthcare professional. [employer] disclaims any warranty or liability for your use of this information. [facility]* Diagnosis Spondylolisthesis of lumbar region- Primary Lumbar radiculopathy Thoracic or lumbosacral neuritis or radiculitis, unspecified [facility]* Diagnosis Onset Date Resolution Status Abscess in epidural space of thoracic spine acute Asthma acute Back pain acute Bacteremia acute Electrolyte imbalance acute HTN (hypertension) acute Hypocalcemia acute Hyponatremia acute Intra-abdominal abscess acut e Normocytic normochromic anemia acute Retroperitoneal abscess acut e Sciatica acute Severe protein-calorie malnutrition acute Spinal epidural abscess acut e Staphylococcus aureus infection acute Staphylococcus aureus septicemia acute [facility] Work Phone: Evaluation note* Diagnosis Bacteremia [facility] Diagnosis Methicillin susceptible Staphylococcus aureus infection as the cause of diseases classified elsewhere Methicillin susceptible Staphylococcus aureus infection as the cause of diseases classified elsewhere [facility] Diagnosis Anxiety- Primary Anxiety state, unspecified [facility] Diagnosis Anxiety- Primary Anxiety state, unspecified Severe pain [facility] Diagnosis Severe pain- Primary [facility]* Diagnosis Chronic pain syndrome- Primary [facility] Diagnosis Chronic pain syndrome- Primary [facility] Diagnosis Chronic pain syndrome- Primary Anxiety Anxiety state, unspecified [facility]* Diagnosis Severe pain- Primary documented in this encounter [facility]* Diagnosis Severe pain- Primary documented in this encounter [facility]* Diagnosis Chronic pain syndrome- Primary [facility] Diagnosis Chronic pain syndrome- Primary [facility] Narrative No data available for this section [facility] Additional Instructions Activity: As tolerated Diet: Nothing by [facility] Work Phone: Hospital Discharge instructions No data available for this section [facility] No data available for this section [facility] Reason for Referral Specialty Diagnoses / Procedures Referred By Contac t Referred To Contact Physical Therapy Diagnoses Spondylolisthesis of lumbar region Lumbar radiculopathy Aneta Valderrama MD [address] [place] [address] Rehab Facility - Other Referral ID Status Reason Start Date Expiration Date Visits Requested Visits Authorized [id number] Authorized Patient Preference 08/30/2023 08/29/2024 1 1 Specialty Diagnoses / Procedures Referred By Contac t Referred To Contact Diagnoses Bacteremia Procedures MRI SPINE CERVICAL WITH AND WITHOUT CONTRAST [place] MRI, CERV SPINE RALPHO Lori Fernando MD [address] [place] [address] Referral ID Status Reason Start Date Expiration Date V isits Requested Visits Authorized [id number] Pending Review 10/01/2023 10/25/2024 1 1 Summary Purpose Family History No Family History Records FoundNo Family History Records FoundNo Family History Records Found No data available for this section No Family History Records FoundNo Family History Records FoundNo Family History Records FoundNo Family History Records FoundNo Family History Records Found Advance Directives Advance Directive Response Recorded Date/ Time [facility] DNR Comfort Care Unknown O ctober 2022 11:36am [facility] D[facility] Comfort Care Arrest Unknown September 11, 2023 11:36am Living Will Unknown September 11 11:36am Durable Power of Cork Insulation Setter for Health Care Unknow n September 11, 2023 11:36am Advance Directive Response Recorded Date/ Time [facility] DNR Comfort Care Unknown O ctober 2022 10:36am [facility] DNR Comfort Care Arrest Unknown September 11, 2023 10:36am Living Will Unknown September 11 10:36am Durable Power of [employer] Insulation Setter for Health Care Unknow n September 11, 2023 10:36am Documents on File Type Date Recorded Patient Supervisor [facility] Power of Cork Insulation Setter 09/19/2023 2:50 PM Ricky [email or web address] Latest Code Status on File Code Status Date Activated Date Inactivated Comments Full Code 09/19/2023 11:55 AM Healthcare Agents on File Name Relationship Healthcare Agent [facility] Child Health Care Agent Aiden Masterson [facility] Health Ca re Agent Healthcare Agents on File Name Relationship Healthcare Agent Melquiadeshi p Communication Zakiya Young Child Health Care Agent Aiden Masterson [facility] Health Ca re Agent Healthcare Agents on File Name Relationship Healthcare Agent Relationshi p Communication Zakiya Young Child Health Care Agent Aiden Masterson [facility] Health Ca re Agent Chief Complaint and Reason for Visit Chief Complaint INTRA ABDOMINAL ABCE SS Reason for Visit Abscess in epidural space of thoracic spine Asthma Back pain Bacteremia Electrolyte imbalance HTN (hypertension) Hypocalcemia Hyponatremia Intra-abdominal abscess Normocytic normochromic anemia Retroperitoneal abscess Sciatica Severe protein-calorie malnutrition Spinal epidural abscess Staphylococcus aureus infection Staphylococcus aureus septicemia Additional Source Comments Reason for Visit (unrecogniz ed section and content) Reason Comments Pain New patient Lumbar p ain, ER with x-rays 08-06-23 @ [facility], [place] 10-12-22 @ [facility], [place], called and can not push thru, typed report under ecare. Specialty Diagnoses / Procedures Referred By Contac t Referred To Contact Diagnoses Bacteremia Procedures MRI SPINE LUMBAR WITH AND WITHOUT CONTRAST [place] MRI, LUMBAR SPINE Lori Frost MD [address] [place] [address] Referral ID Status Reason Start Date Expiration Date V isits Requested Visits Authorized [id number] Pending Review 10/01/2023 10/25/2024 1 1 Specialty Diagnoses / Procedures Referred By Contac t Referred To Contact Diagnoses Bacteremia Procedures MRI SPINE THORACIC WITH AND WITHOUT CONTRAST [place] MRI, DORSAL SPINE Lori Frost MD [address] [place] [address] Referral ID Status Reason Start Date Expiration Date V isits Requested Visits Authorized [id number] Pending Review 10/01/2023 10/25/2024 1 1 Specialty Diagnoses / Procedures Referred By Contac t Referred To Contact Diagnoses Bacteremia Procedures MRI SPINE CERVICAL WITH AND WITHOUT CONTRAST [place] MRI, CERV SPINE Lori Frost MD [address] [place] [address] Referral ID Status Reason Start Date Expiration Date V isits Requested Visits Authorized [id number] Pending Review 10/01/2023 10/25/2024 1 1 Specialty Diagnoses / Procedures Referred By Contac t Referred To Contact Diagnoses Methicillin susceptible Staphylococcus aureus infection as the cause of diseases classified elsewhere Methicillin susceptible Staphylococcus aureus infection as the cause of diseases classified elsewhere [B95.61] Procedures [place] REMOVAL TUNNELED CV CATH REMOVAL CVC TUNNELED Jaron Adan MD [address] [place] [address] [facility] [address] [place] [address] Referral ID Status Reason Start Date Expiration Date Visits Re quested Visits Authorized [id number] 1 1 Care Teams (unrecognized sec tion and content) Furniture Assembler Relationship Specialty Start Date End Date System, Provider Not In PCP - General 08/06/23 Team Status: Active Member Role Status Dates Physician None Primary Care Provider Active Team Status: Inactive Member Role Status Dates Physician None Primary Care Provider, Other Provider A ctive David Elena MD Admit Provider Active Jaret Ramírez (ID) MD Other Provider Active Alec Clemons MD Other Provider Active Troy Garber MD Attending Provider Active Valeriy Cantu Jr, DO Other Provider Active Furniture Assembler Relationship Specialty Start Date End Date Aneta Valderrama MD [address] [place] [address] Orthopaedic Surgery 09/19/23 Conor Fenton [facility],PharmD Pharmacist Infectious Disease 10/02/23 11/21/23 Furniture Assembler Relationship Specialty Start Date End Date Aneta Valderrama MD [address] [place] [address] Orthopaedic Surgery 09/19/23 Conor Fenton, [facility],PharmD Pharmacist Infectious Disease 10/02/23 11/21/23 Furniture Assembler Relationship Specialty Start Date End Date Aneta Valderrama MD [address] [place] [address] Orthopaedic Surgery 09/19/23 Furniture Assembler Relationship Specialty Start Date End Date Ni Ochoa DO [address] [id number] Referring Physician Neurology 03/10/24 Furniture Assembler Relationship Specialty Start Date End Date Ni Ochoa DO [address] [id number] Referring Physician Neurology 03/10/24 Furniture Assembler Relationship Specialty Start Date End Date Ni Ochoa DO [address] [id number] Referring Physician Neurology 03/10/24 Furniture Assembler Relationship Specialty Start Date End Date Ni Ochoa DO [address] [id number] Referring Physician Neurology 03/10/24 Furniture Assembler Relationship Specialty Start Date End Date Ni Ochoa DO [address] [address] Referring Physician Neurology 03/10/24 Furniture Assembler Relationship Specialty Start Date End Date Ni Ochoa DO [address] [address] Referring Physician Neurology 03/10/24 Furniture Assembler Relationship Specialty Start Date End Date Ni Ochoa DO [address] [address] Referring Physician Neurology 03/10/24 Furniture Assembler Relationship Specialty Start Date End Date Ni Ochoa DO [address] [address] Referring Physician Neurology 03/10/24 Furniture Assembler Relationship Specialty Start Date End Date Ni Ochoa DO [address] [address] Referring Physician Neurology 03/10/24 Furniture Assembler Relationship Specialty Start Date End Date Ni Ochoa DO [address] [address] Referring Physician Neurology 03/10/24 Furniture Assembler Relationship Specialty Start Date End Date Ni Ochoa DO [address] [address] Referring Physician Neurology 03/10/24 INFORMATION SOURCE (unrecogn ized section and content) DATE CREATED AUTHOR 09/01/2023 [facility] DATE CREATED AUTHOR AUTHOR'S ORGANIZ ATION 10/06/2023 [facility] DATE CREATED AUTHOR AUTHOR'S ORGANIZ ATION 10/25/2023 [facility] DATE CREATED AUTHOR AUTHOR'S ORGANIZ ATION 03/26/2024 [facility] DATE CREATED AUTHOR AUTHOR'S ORGANIZ ATION 04/17/2024 [facility] DATE CREATED AUTHOR AUTHOR'S ORGANIZ ATION 05/06/2024 [facility] DATE CREATED AUTHOR AUTHOR'S ORGANIZ ATION 09/02/2024 [facility] DATE CREATED AUTHOR AUTHOR'S ORGANIZ ATION 10/15/2024 [facility] PRN Active and Recently Administ ered Medications (unrecognized section and content) Medication Order 12/22/2023 12/23/2023 12/24/2023 Lidocaine 1% (PF) (XYLOCAINE MPF) 1 % injection (COMPLETED) ONCE NEEDED, 1 dose, Starting on Fri12/24/23 at 1115, Until Fri12/24/23 at 1115, Intra-op/Intra-Proc 1115 (Given - Provid er: LAVELLE Ponce) FOR RECORDS PERTAINING TO PATIENTS WHO ARE OR HAVE BEEN ENROLLED IN A CHEMICAL DEPENDENCY/SUBSTANCEABUSE PROGRAM, SOME INFORMATION MAY BE OMITTED. This clinical summary was aggregated from multiple sources. Caution should be exercised in using it in the provision of clinical care. This summary normalizes information from multiple sources, and as a consequence, information in this document may materially change the coding, format and clinical context of patient data. In addition, data may be omitted in some cases. CLINICAL DECISIONS SHOULD BE BASED ON THE PRIMARY CLINICAL RECORDS. [employer] provides no warranty or guarantee of the accuracy or completeness of information in this document.
== END 2024-12-06 08:50 | disposition home or self-care (01) ==
LOC: EC 08:50
PROVIDERS: PCP Family Medicine; Visit Provider Orthopaedic Surgery
DX: S82.391D Other fracture of lower end of right tibia, subsequent encounter for closed fracture with routine healing (principal); S82.831D Other fracture of upper and lower end of right fibula, subsequent encounter for closed fracture with routine healing
CPT/HCPCS: 73590

== ENCOUNTER 2025-02-07 07:39 | Outpatient (OUT) | payer MEDICARE, MEDICAID, SELFPAY ==
--- NOTE | 2025-02-07 | XR_ITS ---
The [address] [address] Patient Name: GEOVANNY MEJÍA MRN: [id number] date: 1970 Sex: F Assigned Patient Location: Current Patient Location: Accession/Order Number: [id number] Exam Date: 02/07/2025 10:00 Report Date: 02/07/2025 10:01 At the request of: SONAM BELL MD Procedure: XR tibia fibula RT 2V RIGHT TIBIA AND FIBULA - - 2 views CLINICAL HISTORY: Follow-up fracture proximal right fibula. COMPARISON: Right tib-fib series 12/06/2024 FINDINGS: Mild soft tissue swelling. Interval healing of the patient's proximal right fibular fracture. No change in alignment. Bones are grossly demineralized. Ankle mortise demonstrate degenerative change. The joint demonstrates degenerative change. XR/XR tibia fibula RT 2V IMPRESSION: HEALING PROXIMAL FIBULAR FRACTURE. Impression dictated by: Allan Steel Jr., D.O.02/07/2025 10:01 AM Dictation Location: Room 77 Electronically authenticated by: [id number] Y Date: 02/07/2025 10:01
--- OUTSIDE RECORDS SUMMARY | 2025-02-07 07:45 | XMS_ITS | CCD ---
Author Organization [facility] CliniSyor Care Team Providers Care Computer Systems Manager Name Role Phone System, Provider Not In Primary Care Provider Un available SYSTEM, PROVIDER NOT IN Primary Care Unavaila ble ANETA VALDERRAMA Attending Unavailable None, Physician Primary Care Provider None, Physician Other Provider MD David Elena Admit Provider Darrell (ID)MD Jaret Other Provider MD Alce Clemons Other Provider MD Troy Garber Attending Provider DO Valeriy [...] Other Provider MD David Elena Admit Provider [phone] Darrell (ID)MD Jaret Other Provider MD Alec Clemons Other Provider [phone] MD Troy Garber Attending Provider DO Valeriy Cantu Jr Other Provider David Elena Admitting Unavailable Troy Garber Attending Unavailable None Primary Care Unavailable Alec Clemons Consulting Unavailable Valeriy Cantu Jr Consulting Unavailable None Consulting Unavailable Darrell (ID), Jaret Hayes Consulting Unavaila ble Aneta Valderrama MD Unavailable [phone] Eliana Francois [facility],PharmDConor Unavailable Unavailable SAQIB, RUGEN M Primary Care Physician NI OCHOA Attending Unavailable MD Zac Garrett Admitting Unavailable Fahad Brannon Attending Unavailable SAQIB, RUGEN M Referring Unavailable KASSIE LORI N Referring Unavailable LORI FERNANDO N Attending Unavailable ADAN, JARON Admitting Unavailable NISSA ADANT Attending Unavailable CONSULT, SURGERY - NEURO Consulting Unavail able PERCY HUFF Admitting Unavailable DAVID ELENA Referring Unavailable RAIZA JENNINGS Attending Unavailable RAJENDRA OLIVER Attending Unavailable RAJENDRA OLIVER Referring Unavailable ELSAGHIR, MOSHE Referring Unavailable ELGAFY, ERICK Referring Unavailable ELDYLAN, ERICK Attending Unavailable ELSBIPINHIR, HEND Referring Unavailable LUISA HOGUE Attending Unavailable ELSAGHIR, HEND Referring Unavailable ELGAFY, ERICK Attending Unavailable ELSAGHIR HEND Attending Unavailable ELGAFY, ERICK Attending Unavailable PATEL BEYER Attending Unavailable ELGABelindaY, ERICK Attending Unavailable LUISA HOGUE Attending Unavailable Ni Ochoa DO Unavailable SAQIB, RUGEN M Referring Unavailable SAQIB, [...] ailable SAQIB, RUGEN M Primary Care Unavailable Demetri Liu MD Unavailable Allergies Allergy Classification Reported Allergen(s) Allergy Type Date of Onset Reaction(s) Facility (1 source) No Known Medication Allergies; Translations: [No Known Medication Allergies] Propensity to adverse reactions (disorder) [facility] Repository (1 source) atorvastatin; Translations: [ATORVASTATIN] Drug Allergy 5 [facility] Repository (1 source) levoFLOXacin; Translations: [LEVOFLOXACIN] Drug Allergy 4 [facility] Repository Medications Current Medications Medication Drug Class(es) Dates Sig (Normalized) Sig (Original) acetaminophen 650 mg oral tablet (20 sources) Start: 02-05-2024 take 650 mg by [...] mouth every 6 hours. 0 10/06/2023 Active [id number] 200 actuat albuterol 0.09 mg/actuat metered dose inhaler (17 sources) beta2-Adrenergic Agonist take 1-2 puff(s ) [...] tablet (20 sources) Benzodiazepine Start: 09-09-20 End: 06-09-20 take 1 tablet by mouth in the morning, then take 1 tablet by mouth in the evening, then take 1 tablet by mouth at bedtime ALPRAZolam (Xanax) 0.5 MG tablet Indications: Anxiety Take 1 tablet (0.5 mg) by mouth in the morning and 1 tablet (0.5 mg) in the evening and 1 tablet (0.5 mg) before bedtime. 90 tablet 5 12/11/2024 06/09/2025 Active Start: 09-09-2024 End: 01-16-2025 take 1 tablet by mouth in the morning ALPRAZolam (Xanax) 1 MG tablet Indications: Anxiety Take 1 tablet (1 mg) by mouth in the morning and 1 tablet (1 mg) before bedtime. 60 tablet 3 09/18/2024 12/11/2024 Discontinued Start: 02-05-2024 take 1 mg by mouth once daily Xanax 1 mg, Oral, Daily, Refills(s) 0 Start Date: 02/05/24 Status: Ordered End: 09-09-2024 take 4 tablets by mouth in the morning ALPRAZolam (Xanax) 1 MG tablet Take 4 mg by mouth in the morning and 4 mg before bedtime. 09/09/2024 Discontinued baclofen 20 mg oral tablet (18 sources) gamma-Aminobutyric Acid-ergic Agonist Start: 03-08-2024 take [...] needed for Constipation. 0 10/06/2023 Active Cholecalciferol (20 sources) Vitamin D Start: 02-05-2024 take 25 ug by mouth once daily cholecalciferol 25 mcg, Oral, Daily, Refills(s) 0 Start Date: 02/05/24 Status: Ordered Start: 10-02-2023 take 1 tablet by devon th once daily cholecalciferol 50 MCG (2000 UNIT) tablet Take 1 tablet by mouth daily. 0 10/02/2023 Active take 1 capsule by mo uth in the morning cholecalciferol (Vitamin D-3) 25 [...] Active docusate sodium 100 mg oral capsule (17 sources) take 1 capsule by mouth in the morning Docusate Sodium (DSS) 100 MG capsule Take 100 mg by mouth in the morning and 100 mg in the evening. Active doxycycline hyclate 100 mg oral tablet (20 sources) Tetracycline-c lass Drug Start: 02-05-2024 take [...] 10-02-2023 take 1 tablet by devon th once daily Escitalopram 10 MG tablet Take 1 tablet by mouth daily. 0 10/02/2023 Active 72 hr fentaNYL 0.075 mg/hr transdermal system (20 sources) Opioid Agonist Start: 01-19-2025 End: 02-18-2025 fentaNYL (DURAGESIC) 75 MCG/HR Indications: Chronic pain syndrome Place 1 patch over 72 hours on the skin every 3rd (third) day 10 patch 01/19/2025 02/18/2025 Active Start: 11-25-2024 End: 01-14-2025 fentaNYL (DURAGESIC) 75 MCG/ HR Indications: Chronic pain syndrome Place 1 patch over 72 hours on the skin every 3rd (third) day 10 patch 12/15/2024 01/14/2025 Active Start: 10-23-2024 End: 12-22-2024 fentaNYL (DURAGESIC) [...] affected area well 0 10/01/2023 Active Lidocaine (20 sources) Antiarrhythmic, Amide Local Anesthetic Start: 02-05-2024 [...] 10/01/2023 Active methocarbamol 500 mg oral tablet (18 sources) Muscle Relaxant Start: 01-17-2024 methocarbamol (Robaxin) 500 MG tablet Take 500 mg by mouth in the morning and 500 mg at noon and 500 mg in the evening and 500 mg before bedtime. 01/17/2024 Active naloxone hydrochloride 40 mg/ml nasal spray (14 sources) Opioid Antagonist Start: 09-18-2024 End: 09-18-2025 naloxone (Narcan) 4 mg/0.1 mL nasal spray Indications: Severe pain Administer 1 spray (4 mg) into affected nostril(s) if needed for opioid reversal May repeat every 2-3 minutes if needed, alternating nostrils, until medical assistance becomes available. 2 each 09/18/2024 09/18/2025 Active Start: 08-06-2023 naloxone (NARC AN) 4 mg/actuation Alta Administer 1 spray into one nostril for known or suspected opioid overdose. If patient worsens or does not respond, may repeat in 2-3 minutes. . 2 each 0 08/06/2023 Active [place]-3 oral capsule (1 source) Start: 02-05-2024 take 1 capsule by mouth once daily [place]-3 oral capsule See Instructions, Refill(s) 0, 1000mg oral daily Start Date: 02/05/24 Status: Ordered ondansetron 4 mg oral tablet (18 sources) Serotonin-3 Receptor Antagonist Start: 02-05-2024 take 4 mg by mouth every six hours as needed for nausea Zofran 4 mg, Oral, q6hr, PRN as needed for nausea/vomiting, Refills(s) 0 Start Date: 02/05/24 Status: Ordered take 1 tablet by devon every eight hours as needed ondansetron (Zofran) [...] oral tablet (20 sources) Opioid Agonist Start: 01-10-2025 End: 02-09-2025 take 1 tablet by mouth every eight hours for pain oxyCODONE (Roxicodone) 5 MG immediate release tablet Indications: Chronic pain syndrome Take 1 tablet (5 mg) by mouth every 8 (eight) hours if needed for severe pain 90 tablet 01/10/2025 02/09/2025 Active Start: 10-23-2024 End: 12-22-2024 take 1 tablet [...] pantoprazole 40 mg extended release oral tablet (18 sources) Proton Pump Inhibitor Start: 02-05-2024 take 40 mg by mouth once daily pantoprazole 40 mg, Oral, Daily, Refills(s) 0 Start Date: 02/05/24 Status: Ordered Start: 10-02-2023 take 1 tablet by devon th before mealtime pantoprazole (ProtoNix) 40 MG EC tablet Take 40 mg by mouth in the morning. Take before meals. 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 infection and poliomyelitis (10 sources) Epidural abscess; [...] 10-06-2023 10-06-2023 Chronic Other nervous system disorders (17 sources) Myelomalacia; Translations: [Other specified diseases of spinal cord] Onset: 03-24-2024 03-24-2024 Chronic Other nervous system disorders (17 sources) Polyneuropathy; Translations: [Polyneuropathy, unspecified] Onset: 03-24-2024 03-24-2024 Chronic Other nervous system disorders (9 sources) Chronic pain syndrome; Translations: [Chronic pain [...] 10-06-2023 09-13-2023 Episodic Other connective tissue disease (17 sources) Neuropathic pain; Translations: [Neuralgia and neuritis, [...] Escamilla MD on 10/13/2024 6:44 PM Normal [facility] 36on 08-31-[address] [place] [address] center called and needs note from 07/21 amended for the pre-cert on AFO brace. The note needs to state: -AFO brace for foot drop. - Brace needed to help patient with daily activities, (due to fall risk.) -Length of time the brace is needed.... 6months, 1yr, lifetime. -Has to be electronic signed. Please fax revised note to [phone] They are unable to move forward with brace without this in note. Normal [facility] Follow-Upon 07-21-2024 Follow-Up [id number] Geovanny Mejía 1970 F Date Provider Department Center 07/21/2024 266-ERICK SIMENTAL MP ORTHO MPORTHO Family History Family history unknown: Yes Level of Service:22564 [place] OFFICE/OUTPATIENT ESTABLISHED LOW MDM 20 MIN (GC) Reason for Visit and Comments: Pain [136] - Neck pain also Follow-up [516409] - Neck pain also Normal [facility] 37on 2024 37 Continue to monitor for signs and symptoms of infection including fever, chills, shortness of breath, chest pain, abdominal pain, nausea, vomiting and diarrhea. Neck, back pain. Call our office if you notice any of these or go to the ED if needing to Normal [facility] Abstracton 2024 Abstract [id number] MejíaGeovanny 1970 Provider Department [place] 2024 72[facility] Carlo Heal Family History Family history unknown: Yes Normal [facility] C-REACTIVE PROTEINon 024 C REACTIVE PROTEIN (MG/L) IN SER/PLAS 2.4 mg/L Normal 0.0-7.0 [facility] Comment on above: Performed By: #### L [id number] ####[facility] (BEAKER)[address] [place] [address] Follow-Upon 2024 Follow-Up [id number] Geovanny Mejía 1970 Provider Department Center 2024 161PATEL CASH [facility] Carlo Heal Family History Family history unknown: Yes Level of Service:31592 [place] OFFICE/OUTPATIENT ESTABLISHED LOW MDM 20 MIN Reason for Visit and Comments: Vertebral osteomyelitis [Other] Normal [facility] Orders Onlyon 2024 Orders Only [id number] Geovanny Mejía 1970 Provider Department Center 2024 [facility] Carlo Heal Family History Family history unknown: Yes Normal [facility] SEDIMENTATION RATEon 024 SEDIMENTATION RATE, ERYTHROCYTE 10 mm/hr Normal <=20 [facility] Comment on above: Performed By: #### L [id number] #### [facility] (FRAN) [address] [place] [address] Follow-Upon 04-21-2024 Follow-Up [id number] Geovanny Mejía 1970 F Date Provider Department Center 04/21/2024 ERICK KILLIAN MP ORTHO [facility] Family History Family history unknown: Yes Level of Service:72832 [place] OFFICE/OUTPATIENT ESTABLISHED LOW MDM 20 MIN Reason for Visit and Comments: Follow-up [459026] Pain [136] [facility] 36on 02-18-2024 36 Spoke to Lacey. All questions answered. [facility] 36 Will call when available. [facility] 36 Provider calling asking the nurse return a call to her personal line so things can be discussed. [facility] 36 Returned call and left detailed message for Lacey. [facility] 36 She is to wear brace during activity to stabilize spine, reduce pain and prevent further injury. There is a phone number on the prescription they need to call to schedule an appointment to be fitted. This was explained at visit. Will call when available. [facility] 36 States patient was given an order for a TLSO and she is wondering why now since her surgery was so long ago. She also needs to know where she is supposed to get one from. [facility] Follow-Upon 02-18-2024 Follow-Up [id number] RickyGeovanny 1970 F Provider Department Center 02/18/2024 LUISA [facility]NSON [facility] Carlo Heal Family History Family history unknown: Yes Level of Service:00997 OK OFFICE/OUTPATIENT ESTABLISHED LOW MDM 20 MIN Reason for Visit and Comments: Vertebral osteomyelitis [Other] [facility] Telephoneon 02-18-2024 Telephone [id number] Will Mejíabie 1970 Date Provider Department Center 02/18/[address] [facility] Family History Family history unknown: Yes Reason for Visit and Comments: Order clarification [Other] [facility] Follow-Upon 02-11-2024 Follow-Up [id number] Geovanny Mejía 1970 F Date Provider Department Center 02/11/2024 Josh-ERICK SIMENTAL MP ORTHO MP[facility] Family History Family history unknown: Yes Level of Service:30182 OK OFFICE/OUTPATIENT ESTABLISHED LOW MDM 20 MIN (GC) Reason for Visit and Comments: Follow-up [665937] - CT results Follow-up [878900] - CT results Normal [facility] Consent for Treatmenton 01-22 Consent for Treatment [id number] 030 [id number]# 1.00TIFF Normal [facility] Consultation Noteon 02-05-20 Consultation Note Patient is [...] with any questions or concerns that arise. [facility] Comment on above: Result Comment: Elec tronically Signed By: Fahad Brannon DO.br\Date and Time Signed: 02/05/24 10:29 EDT HIPAA Forms Officeon 024 HIPAA Forms Office [id number]#1.0 0TIFF [facility] Legal Correspondence Officeo n 02-05-2024 Legal Correspondence Office [id number]#1.0 0TIFF Normal [facility] Legal Correspondence Office [id number]#1.0 0TIFF Normal [facility] Office/Clinic Note-Physician on 02-05-2024 Office/Clinic Note-Physician [id number]#1.0 0TIFF Normal [facility] Patient Correspondenceon Patient Correspondence [id number] [id number]#1.0 0TIFF Normal [facility] Patient Correspondence [id number] 030 [id number]#1.0 0TIFF Normal [facility] Patient Correspondence [id number] [id number]#1.0 0TIFF Normal [facility] Patient Correspondence [id number] 030 [id number]#1.0 0TIFF Normal [facility] Patient Correspondence [id number] 030 [id number]#1.0 0TIFF Normal [facility] Patient Correspondence [id number] 030 [id number]#1.0 0TIFF Normal [facility] Patient History Officeon Patient History Office [id number] 030 [id number]#1.0 0TIFF Normal [facility] C-REACTIVE PROTEINon 024 C REACTIVE PROTEIN (MG/L) IN SER/PLAS 11.5 mg/L High 0.0-7.0 [facility] Comment on above: Performed By: #### L [id number] ####[facility] (FRAN)[address] [place] [address] CBC WITH AUTO DIFFERENTIALon 01-21-2024 Basophils (Bld) [#/Vol] 0.02 10*3/uL Normal 0.00-0.20 [facility] Comment on above: Performed By: #### L [id number] #### [facility] (BEAKER) [address] [place] [address] Basophils/100 WBC (Bld) 0.4 % Normal 0.0-1.0 [facility] Comment on above: Performed By: #### L [id number] #### [facility] (BEAKER) [address] [place] [address] Eosinophils (Bld) [#/Vol] 0.15 10*3/uL Normal 0.00-0.50 [facility] Comment on above: Performed By: #### L [id number] #### [facility] (BEAKER) [address] [place] [address] Eosinophils/100 WBC (Bld) 2.7 % Normal 0.0-6.0 [facility] Comment on above: Performed By: #### L [id number] #### [facility] (BEAKER) [address] [place] [address] Erythrocyte distribution width (RBC) [Ratio] 18.3 % High 11.5-15.0 [facility] Comment on above: Performed By: #### L [id number] #### [facility] (BEAKER) [address] [place] [address] ERYTHROCYTE MEAN CORPUSCULAR HEMOGLOBIN CONCENTRATION (G/DL) BY AUTOMATED 31.8 g/dL Low 32.0-35.0 [facility] Comment on above: Performed By: #### L [id number] #### [facility] (BEAKER) [address] [place] [address] Hematocrit (Bld) [Volume fraction] 38.4 % Normal 36.0-48.0 [facility] Comment on above: Performed By: #### L [id number] #### [facility] (BEAKER) [address] [place] [address] Hemoglobin (Bld) [Mass/Vol] 12.2 g/dL Normal 12.0-15.0 [facility] Comment on above: Performed By: #### L [id number] #### [facility] (BEAKER) [address] [place] [address] Immature granulocytes (Bld) [#/Vol] 0.01 10*3/uL Normal 0.00-0.20 [facility] Comment on above: Performed By: #### L [id number] #### [facility] (BEAKER) [address] [place] [address] Immature granulocytes/100 WBC (Bld) 0.2 % Normal 0.0-1.0 [facility] Comment on above: Performed By: #### L [id number] #### [facility] [address] [place] [address] Lymphocytes (Bld) [#/Vol] 1.88 10*3/uL Normal 1.20-4.00 [facility] Comment on above: Performed By: #### L [id number] #### [facility] [address] [place] [address] Lymphocytes/100 WBC (Bld) 33.9 % Normal 20.0-45.0 [facility] Comment on above: Performed By: #### L [id number] #### [facility] [address] [place] [address] MCH (RBC) [Entitic mass] 24.5 pg Low 27.0-33.0 [facility] Comment on above: Performed By: #### L [id number] #### [facility] (BEAKER) [address] [place] [address] MCV (RBC) [Entitic vol] 77.1 fL Low 82.0-98.0 [facility] Comment on above: Performed By: #### L [id number] #### [facility] (BEAKER) [address] [place] [address] Monocytes (Bld) [#/Vol] 0.34 10*3/uL Normal 0.10-1.00 [facility] Comment on above: Performed By: #### L [id number] #### [facility] [address] [place] [address] Monocytes/100 WBC (Bld) 6.1 % Normal 5.0-12.0 [facility] Comment on above: Performed By: #### L [id number] #### [facility] [address] [place] [address] Neutrophils (Bld) [#/Vol] 3.14 10*3/uL Normal 1.60-7.60 [facility] Comment on above: Performed By: #### L [id number] #### [facility] ([facility]) [address] [place] [address] Neutrophils/100 WBC (Bld) 56.7 % Normal 40.0-72.0 [facility] Comment on above: Performed By: #### L [id number] #### [facility] ([facility]) [address] [place] [address] NRBC (PER 100 WBCS) BY AUTOMATED COUNT 0.0 % Normal 0 [facility] Comment on above: Performed By: #### L [id number] #### [facility] ([facility]) [address] [place] [address] PLATELETS (10*3/UL) IN BLOOD AUTOMATED COUNT 266 10*3/uL Normal 150-400 [facility] Comment on above: Performed By: #### L [id number] #### [facility] ([facility]) [address] [place] [address] RBC (Bld) [#/Vol] 4.98 10*6/uL Normal 3.80-5.00 [facility] Comment on above: Performed By: #### L [id number] #### [facility] (BEAKER) [address] [place] [address] WBC (Bld) [#/Vol] 5.54 10*3/uL Normal 4.00-10.60 [facility] Comment on above: Performed By: #### L [id number] #### [facility] (BEAKER) [address] [place] [address] Follow-Upon 01-21-2024 Follow-Up [id number] Geovanny Mejía 1970 F Date Provider Department Center 01/21/2024 LUISA [facility]NSON [facility]F Carlo Heal Family History Family history unknown: Yes Level of Service:04887 OK OFFICE/OUTPATIENT ESTABLISHED LOW MDM 20 MIN Reason for Visit and Comments: MSSA bacteremia [Other] Normal [facility] Orders Onlyon 01-21-2024 Orders Only [id number] Geovanny Mejía 1970 F Date Provider Department Center 01/21/2024 [facility] Heal Family History Family history unknown: Yes Normal [facility] SEDIMENTATION RATEon 024 SEDIMENTATION RATE, ERYTHROCYTE 18 mm/hr Normal <=20 [facility] Comment on above: Performed By: #### L [id number] ####[facility] (DAYSIAKER)[address] [place] [address] CT LUMBAR SPINE WO CONTon CT LUMBAR [...] Jensen MD on 12/26/2023 11:04 AM Normal [facility] CT THORACIC SPINE WO CONTon 12-25-2023 [...] levels: No high-grade spinal canal stenosis. Multilevel [id number] neural foraminal stenosis is present at T2-T3 [...] of the thoracic spine. Approved by Resident: Micah Corona MD on 12/25/2023 10:33 AM I, Conor Balbuena have personally reviewed the image(s) and agree with and/or edited the report Finalized by Conor Balbuena on 12/25/2023 2:51 PM Normal [facility] GENERAL PROCEDUREon 12-24-19 LAVELLE Ponce - 12/24/2023 [...] BLOOD LOSS: < 2 mL COMPLICATIONS: None [facility] Radiology Study observation (narrative) [facility] VENOUS ACCESS REMOVALon 11-26 VENOUS ACCESS REMOVAL EXAM: IR VENOUS ACCESS REMOVAL, 12/24/2023 11:55 AM CLINICAL INDICATIONS: Bacteremia s/p antibiotic treatment Vba Developer: LAVELLE Ponce Local anesthetic: Lidocaine 1% 3mL. [...] from the original result was not included. [employer] Event Details User 11:06 AM 12/24/23 Timeout: Sign-in Signed by Syl Castro RN at 12/24/2023 11:06 AM AD 11:15 AM 12/24/23 Lidocaine 1% (PF) (XYLOCAINE MPF) 1 % injection 3 mL Given Rate: 0 Route: Infiltration EH Physician Physician Event Details User 11:06 AM 12/24/23 Timeout: Sign-in Signed by Syl Castro RN at 12/24/2023 11:06 AM AD Normal [facility] IMPRESSION: Successful removal of a right internal jugular tunneled double lumen power line catheter. I personally viewed and interpreted these images and I have reviewed and approved this report. OLOGY EXAM: IR VENOUS ACCESS REMOVAL, 12/24/2023 11:55 AM CLINICAL INDICATIONS: Bacteremia s/p antibiotic treatment Vba Developer: Marco Cabral APRN-MONIK Local anesthetic: Lidocaine 1% 3mL. A time-out [...] AM CLINICAL INDICATIONS: Bacteremia s/p antibiotic treatment Vba Developer: LAVELLE Ponce Local anesthetic: Lidocaine 1% 3mL. [...] I have reviewed and approved this report. [facility] Radiology Study observation (narrative) [facility] VENOUS ACCESS REMOVALOrdered By: Renny Flowesr on 12-24-2023 [facility] Work Phone: Office Visiton 12-17-2023 Follow-up visit [id number] Geovanny Mejía 1970 F Date Provider Department Center 12/17/2023 Josh-ERICK SIMENTAL MP ORTHO MPORTHO Family History Family history unknown: Yes Level of Service:53454 OK OFFICE/OUTPATIENT NEW LOW MDM 30 MINUTES Reason for Visit and Comments: Pain [136] Normal [facility] 36on 12-12-2023 36 Okay thanks Normal [facility] Orders Onlyon 12-12-2023 Orders Only [id number] Geovanny Mejía 1970 F Date Provider Department Center 12/12/2023 [facility] INF Carlo Heal Family History Family history unknown: Yes Normal [facility] Office Visiton 12-11-2023 Follow-up visit [id number] Geovanny Mejía 1970 F Date Provider Department Center 12/11/2023 [facility] Carlo Heal Family History Family history unknown: Yes Level of Service:09778 OK OFFICE/OUTPATIENT ESTABLISHED MOD MDM 30 MIN Reason for Visit and Comments: Osteomyelitis [167] Normal [facility] Outside Records Officeon Outside Records Office [id number]# 1.00TIFF Normal [facility] Referrals Officeon Referrals Office [id number] 1.00TIFF Normal [facility] XR FEMUR RT 2+ VIEWSon 11-15 XR [...] Tillman MD on 11/15/2023 6:43 AM Normal [facility] XR HIP RT 2-3 VIEWS W [...] abnormality. * Right sacroiliitis. Finalized by Mario Tillman MD on 11/15/2023 6:40 AM Normal [facility] XR SPINE LUMBAR 2 OR 3 [...] Tillman MD on 11/15/2023 6:39 AM Normal [facility] XR TIBIA FIBULA RT MIN 2 [...] Tillman MD on 11/15/2023 6:42 AM Normal [facility] MR CERVICAL SPINE W WO CONTo [...] Portillo MD on 11/11/2023 4:11 PM Normal [facility] MR LUMBAR SPINE W WO CONTon [...] Portillo MD on 11/11/2023 2:24 PM Normal [facility] MR THORACIC SPINE W WO CONTo [...] Portillo MD on 11/11/2023 4:14 PM Normal [facility] Physician Query Reporton Physician Query Report Please respond to this Physician Query by marking X by the answer you deem appropriate! Thank you [facility] Records Patient: GEOVANNY MEJÍA [address]. : 1970 [place], [place] [address] Location: [phone] Unit #: [id number] Physician Query Report Craig Rodriguez DO Patient Name: GEOVANNY MEJÍA Date of : 1970 Account: [id number] Admit Date: 09/08/2023 Discharge Date: 09/18/2023 Facility: [facility] -------- Dear Troy Garber Charles, INT Please [...] only ( ) Other Thank you, Laurel MIRN, RN Clinical Crystal Mounter [email or web address] This query is a communication tool used for clarification of a document to capture accurate clinical data, reflect intent, and clinical thought process in the health record that accurately depicts patient's care and treatment during the hospital stay. [facility] Sepsis criteria: Documentation of infection or [...] 10/23/23 0856 < > Co-Signer: on Normal [facility] Daily Noteon 2022 Pharmacy Daily Note [facility] Patient: GEOVANNY MEJÍA [address]. : 1970 [place], [place] [address] Location: [facility] [phone] Unit #: [id number] Pharmacy Daily Note Hugo Og [facility] Service Dt/Tm: 09/12/23 5329 Pharmacy - Patient Information Patient Information: Name: [...] 09/13 @ 0900 following first maintenance dose. -[facility] 09/08 Pt started on broad spectrum abx [...] Report Signed by: Hugo French on 10/15/23 3646 < > Co-Signed by: Charity Adames on 10/16/23 8755 < > Normal [facility] Daily Noteon 2022 Pharmacy Daily Note [facility] Patient: GEOVANNY MEJÍA [address]. : 1970 [place], [place] [address] Location: [phone] Unit #: [id number] Pharmacy Daily Note Renae Garciaman Service Dt/Tm: 09/13/23 1405 Pharmacy - Patient [...] 1000mg q12h maintenance dose. Will obtain level 10/21 @ 0900 following first maintenance dose. -[facility] 09/08 Pt started on broad spectrum abx [...] Adames on 10/14/23 0724 < > Normal [facility] Progress Note - Antibioticso n 10-14-2023 Progress Note - Antibiotics [facility] Patient: GEOVANNY MEJÍA [address]. : 1970 [place], [place] [address] Location: [phone] Unit #: [id number] Progress Note - Antibiotics Jaret Ramírez (ID) [...] has been seen at the facility in [place], [place] where she was noted to have significant back pain and discomfort. An operation was recommended at that time. It was decided to transfer her care to a neurological/neurosur gical service in [place], [place]. The patient was deciding whether or [...] < > Report Signed by: on Normal [facility] Progress Note - Antibioticso n 10-13-2023 Progress Note - Antibiotics [facility] Patient: GEOVANNY MEJÍA [address]. : 1970 [place], [place] [address] Location: [address] [place] [address] Unit #: [id number] Progress Note - Antibiotics Jaret Ramírez (ID) [...] 00:30 Entered by: Jaret Ramírez (ID)MD on 09/13/23 1523 Report Signed by: Jaret Ramírez MD (ID) on 10/13/231942 < > Report Signed by: on Normal [facility] Progress Note - Antibioticso n 10-11-2023 Progress Note - Antibiotics [facility] Patient: GEOVANNY MEJÍA [address]. : 1970 [place], [place] [address] Location: [address] [place] [address] Unit #: [id number] Progress Note - Antibiotics Jaret Ramírez (ID) MD Service Dt/Tm: 09/11/23 1521 Antibiotic Note Results: Patient is resting comfortably. She still has pain in the abdomen but she controls that with the [employer]NAGER pump which is beginning to make her [...] that is with the use of the [employer] MANAGER pump. This patient may continue to be a problem which may not be managed long-term by the percutaneous catheter drainage. * The patient has back pain and she claims she cannot move her legs. I did try to assess the situation but the patient was on her [employer]NAGER pump and she was sedated to the point examination could not be performed. I suggested neuro consult. TE 00:30 Entered by: Jaret Ramírez (ID)MD on 09/11/23 1521 Report Signed by: Jaret Ramírez MD (ID) on 10/11/23 1536 < > Report Signed by: on Normal [facility] Progress Note Surgicalon Progress Note Surgical [facility] [place] [facility] Records Patient: GEOVANNY MEJÍA1 [address] Rivera. : 1970 [place], [place] [address] Location: [address] [place] [address] Unit #: [id number] Progress Note Surgical Ryanne Morales PA-C Service Dt/Tm: 09/11/23813 53 year old male with intraabdominal abscess. S/P IR drainage. Brian follow. IV antibiotics. Pain worsening and [employer]NAGER started and pain better controlled. repeat CCT [...] Results: 09/11/23 04:58 Images available, please contact [facility] Medical Records 09/11/23 04:58 Images available, please contact [facility] Medical RecordsLaboratory Results - last 24 hr WBC 29.8 H RBC 3.54 L Hgb 9.8 L Hct 30.1 L MCV 84.9 MCH 27.7 MCHC 32.6 L RDW 16.1 H Plt Count 180 Microbiology 09/08/23 18:15 Blood,Venous - Final 09/08/23 18:15 Blood,Venous Blood Culture - Preliminary Staphylococcus aureus 09/08/23 18:20 Blood,Venous Blood Culture - Preliminary Staph (more content not included)... Normal [facility] Progress Note Surgical [facility] [place] [place] [facility] Patient: GEOVANNY MEJÍA [address]. : 1970 [place] [address] Location: [facility] [phone] Unit #: [id number] Progress Note Surgical Ryanne Morales PA-C Service Dt/Tm: 09/09/23 1516 53 year old female with intraabdominal abscess. S/P IR drainage. Brian follow. IV antibiotics. Pain worsening and [employer] MANAGER started Patient seen and examined independently by [...] AVSS. Still continued high pain. Will add [employer] MANAGER pump for better pain control. Increased nausea. [...] Results: 09/09/23 03:36 Images available, please contact [facility] Medical Records 09/09/23 03:37 Images available, please contact [facility] Medical RecordsLaboratory Results - last 24 hr [...] Signed by: Rohit Pimentel MD on 10/09/23 7195 < > Normal [facility] Progress Note Surgical [facility] [place] [place] [facility] Records Patient: GEOVANNY MEJÍA. : 1970 [place], [place] [address] Location: [phone] Unit #: [id number] Progress Note Surgical Ryanne Morales PA-C Service Dt/Tm: 09/10/23 1447 53 year old male with intraabdominal abscess. S/P IR drainage. Brian follow. IV antibiotics. Pain worsening and [employer] MANAGER started and pain better controlled. repeat CCT [...] vitals reviewed. AVSS. Pain better controlled with [employer] MANAGER pump. NPO with meds okay. -flatus/-BM CT [...] Results: 09/10/23 05:35 Images available, please contact [facility] Medical Records 09/10/23 05:35 Images available, please contact [facility] Medical RecordsLaboratory Results - last 24 hr [...] Entered by: Ryanne Morales PA-C on 09/10/23 7717 Report Signed by: Ryanne Fuchs (more content not included)... Normal [facility] Progress Note Surgical [facility] [place] [place] [facility] Records Patient: GEOVANNY MEJÍA [address]. : 1970 [place], [place] [address] Location: [address] [place] [address] Unit #: [id number] Progress Note Surgical Ryanne Morales PA-C Service [...] Results: 09/12/23 03:59 Images available, please contact [facility] Medical Records 09/12/23 03:59 Images available, please contact [facility] Medical RecordsLaboratory Results - last 24 hr [...] aureus 09/08 (more content not included)... Normal [facility] CBC,PLATELETSon 10-06-2023 Hematocrit (Bld) [Volume fraction] 27.8 % Low 34.9-44.3 [facility] Comment on above: Performed By: #### Martir PALMER, MGO #### [facility] (DEFAULT) [address] [place] [address] Hemoglobin (Bld) [Mass/Vol] 8.4 g/dL Low 11.4-15.2 [facility] Comment on above: Performed By: #### Martir DUMONT7, MGO #### [facility] (DEFAULT) [address] [address] MCV (RBC) [Entitic vol] 87.4 fL Normal 79.6-97.7 [facility] Comment on above: Performed By: #### Martir HM7, MGO #### [facility] (DEFAULT) [address] [place] [address] Mean Cell Hgb 26.4 pg Normal 25.9-33.9 [facility] Comment on above: Performed By: #### Martir HM7, MGO #### [facility] (DEFAULT) [address] [place] [address] Mean Cell Hgb Conc 30.2 g/dL Low 31.4-35.9 [facility] Comment on above: Performed By: #### Martir DUMONT7, MGO #### [facility] (DEFAULT) [address] [place] [address] Platelet mean volume (Bld) [Entitic vol] 9.4 fL Normal 8.5-12.2 [facility] Comment on above: Performed By: #### C HM7, MGO #### [facility] (DEFAULT) [address] [place] [address] Platelets (Bld) [#/Vol] 549 10*3/uL High 150-393 [facility] Comment on above: Performed By: #### C HM7, MGO #### [facility] (DEFAULT) [address] [place] [address] RBC (Bld) [#/Vol] 3.18 10*6/uL Low 3.91-5.04 [facility] Comment on above: Performed By: #### Martir HM7, MGO #### [facility] (DEFAULT) [address] [place] [address]6050 RBC Distribution 15.2 % High 10.8-14.9 [facility] Comment on above: Performed By: #### C HM7, MGO #### [facility] (DEFAULT) [address] [place] [address]4430 WBC (Bld) [#/Vol] 6.58 10*3/uL Normal 3.99-11.19 [facility] Comment on above: Performed By: #### C HM7, MGO #### [facility] (DEFAULT) [address] [place] [address]103 CHEM 7 (LYTES,BUN,CREA,GLUC) on 10-06-2023 Anion gap [Moles/Vol] 12 mmol/L Normal 7-17 [facility] Comment on above: Performed By: #### C HM7, MGO #### [facility] (DEFAULT) [address] [place] [address] 88495 Chloride [Moles/Vol] 101 mmol/L Normal 98-108 [facility] Comment on above: Performed By: #### C HM7, MGO #### [facility] (DEFAULT) [address] [place] [address] 12438 CO2 [Moles/Vol] 28 mmol/L Normal 21-31 [facility] Comment on above: Performed By: #### C HM7, MGO #### [facility] (DEFAULT) [address] [place] [address] 36803 Creatinine [Mass/Vol] 0.65 mg/dL Normal 0.50-1.20 [facility] Comment on above: Performed By: #### C HM7, MGO #### [facility] (DEFAULT) [address] [place] [address] 46632 eGFR, CKD-EPI, Female > Normal >=60 [facility] Comment on above: Result Comment: Repo rted eGFR is based on the CKD-EPI 2020 equation using creatinine, age, and sex. Performed By: #### C HM7, MGO #### [facility] (DEFAULT) [address] [place] [address] 84357 Glucose [Mass/Vol] 109 mg/dL High 70-99 [facility] Comment on above: Performed By: #### C HM7, MGO #### [facility] (DEFAULT) [address] [place] [address] 87024 Osmolality [Osmolality] 287 mosm/kg Normal 278-305 [facility] Comment on above: Performed By: #### C HM7, MGO #### [facility] (DEFAULT) [address] [place] [address] 50999 Potassium [Moles/Vol] 3.9 mmol/L Normal 3.5-5.0 [facility] Comment on above: Performed By: #### C HM7, MGO #### [facility] (DEFAULT) [address] [place] [address] 68123 Sodium [Moles/Vol] 137 mmol/L Normal 135-145 [facility] Comment on above: Performed By: #### C HM7, MGO #### [facility] (DEFAULT) [address] [place] [address] 77250 Urea nitrogen [Mass/Vol] 10 mg/dL Normal 7-25 [facility] Comment on above: Performed By: #### C HM7, MGO #### [facility] (DEFAULT) [address] [place] [address] 23072 Urea nitrogen/Creatinine [Mass ratio] 15 mg/mg Normal [facility] Comment on above: Performed By: #### C HM7, MGO #### [facility] (DEFAULT) [address] [place] [address] 20036 MAGNESIUMon 10-06-2023 Magnesium [Mass/Vol] 1.9 mg/dL Normal 1.6-2.6 [facility] Comment on above: Performed By: #### C HM7, MGO #### [facility] (DEFAULT) [address] [place] [address] 92497 SARS-COV-2 RAPIDon 3 SARS-CoV-2 (COVID-19) RNA GINETTE+probe Ql (Unsp spec) Not detected Normal NOT DETECTED [facility] Comment on above: Order Comment: Use [...] eye protection, gown, and gloves. Result Comment: [facility] Negative results do not [...] Performed By: #### U HCG #### [facility] (DEFAULT) [address] [address] PLATELET COUNTon 10-04-2023 Platelet mean volume (Bld) [Entitic vol] 9.4 fL Normal 8.5-12.2 [facility] Comment on above: Performed By: #### C HM7, MGO #### [facility] (DEFAULT) [address] [address] Platelets (Bld) [#/Vol] 522 10*3/uL High 150-393 [facility] Comment on above: Performed By: #### C HM7, MGO #### [facility] (DEFAULT) [address] [address] CBC,PLATELETSon 10-03-2023 Hematocrit (Bld) [Volume fraction] 26.7 % Low 34.9-44.3 [facility] Comment on above: Performed By: #### T YPEC #### [facility] (DEFAULT) [address] [address] Hemoglobin (Bld) [Mass/Vol] 8.3 g/dL Low 11.4-15.2 [facility] Comment on above: Performed By: #### T YPEC #### [facility] (DEFAULT) [address] [address] MCV (RBC) [Entitic vol] 87.8 fL Normal 79.6-97.7 [facility] Comment on above: Performed By: #### T YPEC #### [facility] (DEFAULT) [address] [address] Mean Cell Hgb 27.3 pg Normal 25.9-33.9 [facility] Comment on above: Performed By: #### T YPEC #### [facility] (DEFAULT) [address] [address] Mean Cell Hgb Conc 31.1 g/dL Low 31.4-35.9 [facility] Comment on above: Performed By: #### T YPEC #### [facility] (DEFAULT) [address] [address] Platelet mean volume (Bld) [Entitic vol] 9.6 fL Normal 8.5-12.2 [facility] Comment on above: Performed By: #### T YPEC #### [facility] (DEFAULT) [address] [address] Platelets (Bld) [#/Vol] 545 10*3/uL High 150-393 [facility] Comment on above: Performed By: #### T YPEC #### [facility] (DEFAULT) [address] [address] RBC (Bld) [#/Vol] 3.04 10*6/uL Low 3.91-5.04 [facility] Comment on above: Performed By: #### T YPEC #### [facility] (DEFAULT) [address] [address] RBC Distribution 15.6 % High 10.8-14.9 [facility] Comment on above: Performed By: #### T YPEC #### [facility] (DEFAULT) [address] [address] WBC (Bld) [#/Vol] 6.16 10*3/uL Normal 3.99-11.19 [facility] Comment on above: Performed By: #### T YPEC #### [facility] (DEFAULT) [address] [address] CHEM 7 (LYTES,BUN,CREA,GLUC) on 10-03-2023 Anion gap [Moles/Vol] 14 mmol/L Normal 7-17 [facility] Comment on above: Performed By: #### C HM7, MGO #### [facility] (DEFAULT) [address] [place] [address] 09897 Chloride [Moles/Vol] 100 mmol/L Normal 98-108 [facility] Comment on above: Performed By: #### C HM7, MGO #### [facility] (DEFAULT) [address] [place] [address] 86017 CO2 [Moles/Vol] 28 mmol/L Normal 21-31 [facility] Comment on above: Performed By: #### C HM7, MGO #### [facility] (DEFAULT) [address] [place] [address] 58788 Creatinine [Mass/Vol] 0.56 mg/dL Normal 0.50-1.20 [facility] Comment on above: Performed By: #### C HM7, MGO #### [facility] (DEFAULT) [address] [place] [address] 42794 eGFR, CKD-EPI, Female > Normal >=60 [facility] Comment on above: Result Comment: Repo rted eGFR is based on the CKD-EPI 2020 equation using creatinine, age, and sex. Performed By: #### C HM7, MGO #### [facility] (DEFAULT) [address] [place] [address]75 Glucose [Mass/Vol] 105 mg/dL High 70-99 [facility] Comment on above: Performed By: #### C HM7, MGO #### [facility] (DEFAULT) [address] [place] [address] 96393 Osmolality [Osmolality] 288 mosm/kg Normal 278-305 [facility] Comment on above: Performed By: #### C HM7, MGO #### [facility] (DEFAULT) [address] [place] [address]14 Potassium [Moles/Vol] 3.9 mmol/L Normal 3.5-5.0 [facility] Comment on above: Performed By: #### C HM7, MGO #### [facility] (DEFAULT) [address] [place] [address]191 Sodium [Moles/Vol] 138 mmol/L Normal 135-145 [facility] Comment on above: Performed By: #### C HM7, MGO #### [facility] (DEFAULT) [address] [place] [address] 45791 Urea nitrogen [Mass/Vol] 10 mg/dL Normal 7-25 [facility] Comment on above: Performed By: #### C HM7, MGO #### [facility] (DEFAULT) [address] [place] [address] 34564 Urea nitrogen/Creatinine [Mass ratio] 18 mg/mg Normal [facility] Comment on above: Performed By: #### C HM7, MGO #### [facility] (DEFAULT) [address] [place] [address]336 HEPATIC FUNCTION PANELon Albumin [Mass/Vol] 2.6 g/dL Low 3.5-5.0 [facility] Comment on above: Performed By: #### V ANCTR #### [facility] (DEFAULT) [address] [place] [address] 20403 ALP [Catalytic activity/Vol] 173 U/L High 32-126 [facility] Comment on above: Performed By: #### V ANCTR #### [facility] (DEFAULT) [address] [place] [address] 32207 ALT [Catalytic activity/Vol] 8 U/L Low 9-48 [facility] Comment on above: Performed By: #### V ANCTR #### [facility] (DEFAULT) [address] [place] [address] 56921 AST [Catalytic activity/Vol] 21 U/L Normal 10-39 [facility] Comment on above: Performed By: #### V ANCTR #### [facility] (DEFAULT) [address] [place] [address] 05784 Bilirubin [Mass/Vol] 0.2 mg/dL Normal <1.5 [facility] Comment on above: Performed By: #### V ANCTR #### [facility] (DEFAULT) [address] [place] [address]76 Bilirubin.indirect [Mass/Vol] 0.2 mg/dL Normal <0.3 [facility] Comment on above: Performed By: #### V ANCTR #### [facility] (DEFAULT) [address] [place] [address] 47822 Protein [Mass/Vol] 6.5 g/dL Normal 6.4-8.3 [facility] Comment on above: Performed By: #### V ANCTR #### [facility] (DEFAULT) [address] [place] [address] MAGNESIUMon 10-03-2023 Magnesium [Mass/Vol] 1.9 mg/dL Normal 1.6-2.6 [facility] Comment on above: Performed By: #### C HM7, MGO #### [facility] (DEFAULT) [address] [place] [address] 75698 CHEM 7 (LYTES,BUN,CREA,GLUC) on 10-02-2023 Anion gap [Moles/Vol] 14 mmol/L Normal 7-17 [facility] Comment on above: Performed By: #### C HM7, MGO #### [facility] (DEFAULT) [address] [place] [address] 12236 Chloride [Moles/Vol] 101 mmol/L Normal 98-108 [facility] Comment on above: Performed By: #### C HM7, MGO #### [facility] (DEFAULT) [address] [place] [address] 23591 CO2 [Moles/Vol] 28 mmol/L Normal 21-31 [facility] Comment on above: Performed By: #### C HM7, MGO #### [facility] (DEFAULT) [address] [place] [address] Creatinine [Mass/Vol] 0.55 mg/dL Normal 0.50-1.20 [facility] Comment on above: Performed By: #### C HM7, MGO #### [facility] [facility] (DEFAULT) [address] [place] [address] 98035 eGFR, CKD-EPI, Female > Normal >=60 [facility] Comment on above: Result Comment: Repo rted eGFR is based on the CKD-EPI 2020 equation using creatinine, age, and sex. Performed By: #### C HM7, MGO #### U [facility] (DEFAULT) [address] [place] [address] 59951 Glucose [Mass/Vol] 94 mg/dL Normal 70-99 [facility] Comment on above: Performed By: #### C HM7, MGO #### U [facility] (DEFAULT) [address] [place] [address] 04362 Osmolality [Osmolality] 289 mosm/kg Normal 278-305 [facility] Comment on above: Performed By: #### C HM7, MGO #### [facility] (DEFAULT) [address] [place] [address] 63654 Potassium [Moles/Vol] 3.9 mmol/L Normal 3.5-5.0 [facility] Comment on above: Performed By: #### C HM7, MGO #### U [facility] (DEFAULT) [address] [place] [address] 66769 Sodium [Moles/Vol] 139 mmol/L Normal 135-145 [facility] Comment on above: Performed By: #### C HM7, MGO #### U [facility] (DEFAULT) [address] [place] [address] 87640 Urea nitrogen [Mass/Vol] 10 mg/dL Normal 7-25 [facility] Comment on above: Performed By: #### C HM7, MGO #### U [facility] (DEFAULT) [address] [place] [address] 62043 Urea nitrogen/Creatinine [Mass ratio] 18 mg/mg Normal [facility] Comment on above: Performed By: #### C HM7, MGO #### U [facility] (DEFAULT) [address] [place] [address] 84225 CHEM 7 (LYTES,BUN,CREA,GLUC) on 10-01-2023 Anion gap [Moles/Vol] 14 mmol/L Normal 7-17 [facility] Comment on above: Performed By: #### C HM7, MGO #### U [facility] (DEFAULT) [address] [place] [address] 69914 Chloride [Moles/Vol] 101 mmol/L Normal 98-108 [facility] Comment on above: Performed By: #### C HM7, MGO #### U [facility] (DEFAULT) [address] [place] [address] 68470 CO2 [Moles/Vol] 27 mmol/L Normal 21-31 [facility] Comment on above: Performed By: #### C HM7, MGO #### U [facility] (DEFAULT) [address] [place] [address] 34633 Creatinine [Mass/Vol] 0.51 mg/dL Normal 0.50-1.20 [facility] Comment on above: Performed By: #### C HM7, MGO #### [facility] (DEFAULT) [address] [place] [address] 78438 eGFR, CKD-EPI, Female > Normal >=60 [facility] Comment on above: Result Comment: Repo rted eGFR is based on the CKD-EPI 2020 equation using creatinine, age, and sex. Performed By: #### C HM7, MGO #### U [facility] (DEFAULT) [address] [place] [address] 02404 Glucose [Mass/Vol] 94 mg/dL Normal 70-99 [facility] Comment on above: Performed By: #### C HM7, MGO #### [facility] (DEFAULT) [address] [place] [address] 51565 Osmolality [Osmolality] 288 mosm/kg Normal 278-305 [facility] Comment on above: Performed By: #### C HM7, MGO #### U [facility] (DEFAULT) [address] [place] [address] 88506 Potassium [Moles/Vol] 4.0 mmol/L Normal 3.5-5.0 [facility] Comment on above: Performed By: #### C HM7, MGO #### [facility] (DEFAULT) [address] [place] [address] 73228 Sodium [Moles/Vol] 138 mmol/L Normal 135-145 [facility] Comment on above: Performed By: #### C HM7, MGO #### U [facility] (DEFAULT) [address] [place] [address] 86871 Urea nitrogen [Mass/Vol] 12 mg/dL Normal 7-25 [facility] Comment on above: Performed By: #### Martir HM7, MGO #### U [facility] (DEFAULT) [address] [place] [address] 77682 Urea nitrogen/Creatinine [Mass ratio] 24 mg/mg Normal [facility] Comment on above: Performed By: #### Martir HM7, MGO #### U [facility] (DEFAULT) [address] [place] [address] 03405 INSERTION CVC TUNNELEDon INSERTION CVC TUNNELED EXAM: IR INSERTIO N CVC TUNNELED, 09/30/2023 12:01 PM CLINICAL INDICATIONS: 53-year-old female requiring central venous access for antibiotics. MEDICATIONS: 11:08 AM 09/30/23 fentaNYL (SUBLIMAZE) injection 0-300 mcg 25 mcg Given Rate: 0 Route: Intravenous; 11:08 AM 09/30/23 midazolam (VERSED) injection 0-10 mg 0.5 mg Given Rate: 0 Route: Intravenous; 11:12 AM 09/30/23 midazolam (VERSED) injection 0-10 mg 0.5 mg Given Rate: 0 Route: Intravenous; 11:12 AM 09/30/23 fentaNYL (SUBLIMAZE) injection 0-300 mcg 25 mcg Given Rate: 0 Route: Intravenous; 11:17 AM 09/30/23 fentaNYL (SUBLIMAZE) injection 0-300 mcg 25 mcg Given Rate: 0 Route: Intravenous; 11: AM 09/30/23 midazolam (VERSED) injection 0-10 mg 0.5 mg Given Rate: 0 Route: Intravenous; 11:25 AM 09/30/23 diphenhydrAMINE (BENADRYL) injection 25 mg Given Rate: 0 Route: Intravenous; 11: AM 09/30/23 fentaNYL (SUBLIMAZE) injection 0-300 mcg 25 mcg Given Rate: 0 Route: Intravenous; 11: AM 09/30/23 midazolam (VERSED) injection 0-10 mg 0.5 mg Given Rate: 0 Route: Intravenous; 11:39 AM 09/30/23 fentaNYL (SUBLIMAZE) injection 0-300 mcg 25 mcg Given Rate: 0 Route: Intravenous; 11:39 AM 09/30/23 midazolam (VERSED) injection 0-10 mg 0.5 mg Given Rate: 0 Route: Intravenous; 11:44 AM 09/30/23 lidocaine-epinephrine 2 %-[id number] injection 0-20 mL 7 mL Given Rate: [...] medication(s), I spent 42 minutes of continuous [id number] time with the patient. COMPARISON: CT chest [...] Rad Dose: 3 Rad Dose Measurement: mGy Meds Meds Event Details User 10:58 AM 09/30/23 Timeout: [...] Intravenous KB (more content not included)... Normal [facility] PLATELET COUNTon 10-01-2023 Platelet mean volume (Bld) [Entitic vol] 9.2 fL Normal 8.5-12.2 [facility] Comment on above: Performed By: #### V ANCTR #### [facility] (DEFAULT) [address] [place] [address] 82600 Platelets (Bld) [#/Vol] 490 10*3/uL High 150-393 [facility] Comment on above: Performed By: #### V ANCTR #### [facility] (DEFAULT) [address] [place] [address] 66810 CBC AND ELECTRONIC DIFFon Basophils (Bld) [#/Vol] 0.05 10*3/uL Normal 0.00-0.15 [facility] Comment on above: Performed By: #### C HM7, MGO #### U [facility] (DEFAULT) [address] [place] [address] 70475 Basophils/100 WBC (Bld) 0.8 % Normal [facility] Comment on above: Performed By: #### C HM7, MGO #### [facility] (DEFAULT) [address] [place] [address] 90523 DIFF STATUS Electronic Differential Normal [facility] Comment on above: Performed By: #### C HM7, MGO #### U [facility] (DEFAULT) [address] [place] [address] 66273 Eosinophils (Bld) [#/Vol] 0.13 10*3/uL Normal 0.00-0.42 [facility] Comment on above: Performed By: #### C HM7, MGO #### [facility] (DEFAULT) [address] [place] [address] 31936 Eosinophils/100 WBC (Bld) 2.1 % Normal [facility] Comment on above: Performed By: #### C HM7, MGO #### U [facility] (DEFAULT) [address] [place] [address] 96779 Hematocrit (Bld) [Volume fraction] 28.1 % Low 34.9-44.3 [facility] Comment on above: Performed By: #### C HM7, MGO #### U [facility] (DEFAULT) [address] [place] [address] 22823 Hemoglobin (Bld) [Mass/Vol] 8.6 g/dL Low 11.4-15.2 [facility] Comment on above: Performed By: #### C HM7, MGO #### [facility] (DEFAULT) [address] [place] [address] 21158 Immature Grans % 0.8 % Normal [facility] Comment on above: Performed By: #### C HM7, MGO #### [facility] (DEFAULT) [address] [place] [address] 69755 Immature Grans Absolute 0.05 K/uL Normal <=0.08 [facility] Comment on above: Performed By: #### Martir HM7, MGO #### [facility] (DEFAULT) [address] [place] [address] 46327 Lymphocytes (Bld) [#/Vol] 2.24 10*3/uL Normal 1.16-3.51 [facility] Comment on above: Performed By: #### C HM7, MGO #### U [facility] (DEFAULT) [address] [place] [address] 55292 Lymphocytes/100 WBC (Bld) 36.7 % Normal [facility] Comment on above: Performed By: #### C HM7, MGO #### U [facility] (DEFAULT) [address] [place] [address] 37083 MCV (RBC) [Entitic vol] 88.1 fL Normal 79.6-97.7 [facility] Comment on above: Performed By: #### C HM7, MGO #### [facility] (DEFAULT) [address] [place] [address] 69889 Mean Cell Hgb 27.0 pg Normal 25.9-33.9 [facility] Comment on above: Performed By: #### C HM7, MGO #### [facility] (DEFAULT) [address] [place] [address] 81596 Mean Cell Hgb Conc 30.6 g/dL Low 31.4-35.9 [facility] Comment on above: Performed By: #### C HM7, MGO #### U [facility] (DEFAULT) [address] [place] [address] 96418 Monocytes (Bld) [#/Vol] 0.55 10*3/uL Normal 0.22-0.87 [facility] Comment on above: Performed By: #### C HM7, MGO #### [facility] (DEFAULT) [address] [place] [address] 36505 Monocytes/100 WBC (Bld) 9.0 % Normal [facility] Comment on above: Performed By: #### C HM7, MGO #### [facility] (DEFAULT) [address] [place] [address] 02141 Nucleated RBC 0.0 /100 WBC Normal <=0.2 [facility] Comment on above: Performed By: #### C HM7, MGO #### [facility] (DEFAULT) [address] [place] [address] 00289 Platelet mean volume (Bld) [Entitic vol] 9.5 fL Normal 8.5-12.2 [facility] Comment on above: Performed By: #### C HM7, MGO #### [facility] (DEFAULT) [address] [place] [address] 09187 Platelets (Bld) [#/Vol] 543 10*3/uL High 150-393 [facility] Comment on above: Performed By: #### C HM7, MGO #### [facility] (DEFAULT) [address] [place] [address] 08448 RBC (Bld) [#/Vol] 3.19 10*6/uL Low 3.91-5.04 [facility] Comment on above: Performed By: #### Martir HM7, MGO #### [facility] (DEFAULT) [address] [place] [address] 30446 RBC Distribution 15.5 % High 10.8-14.9 [facility] Comment on above: Performed By: #### C HM7, MGO #### U [facility] (DEFAULT) [address] [place] [address] 65028 Segs + Bands Auto 50.6 % Normal [facility] Comment on above: Performed By: #### Martir HM7, MGO #### [facility] (DEFAULT) [address] [place] [address] 27577 Segs + Bands,Absolute Auto 3.09 K/uL Normal 1.64-7.28 [facility] Comment on above: Performed By: #### C HM7, MGO #### [facility] (DEFAULT) [address] [place] [address] 90193 WBC (Bld) [#/Vol] 6.11 10*3/uL Normal 3.99-11.19 [facility] Comment on above: Performed By: #### Martir HM7, MGO #### [facility] (DEFAULT) [address] [place] [address] 82768 CHEM 7 (LYTES,BUN,CREA,GLUC) on 09-30-2023 Anion gap [Moles/Vol] 13 mmol/L Normal 7-17 [facility] Comment on above: Performed By: #### T YPEC #### [facility] (DEFAULT) [address] [place] [address] 64748 Chloride [Moles/Vol] 100 mmol/L Normal 98-108 [facility] Comment on above: Performed By: #### T YPEC #### U [facility] (DEFAULT) [address] [place] [address] 82546 CO2 [Moles/Vol] 28 mmol/L Normal 21-31 [facility] Comment on above: Performed By: #### T YPEC #### [facility] (DEFAULT) [address] [place] [address] 94196 Creatinine [Mass/Vol] 0.67 mg/dL Normal 0.50-1.20 [facility] Comment on above: Performed By: #### T YPEC #### U [facility] (DEFAULT) [address] [place] [address] 00186 eGFR, CKD-EPI, Female > Normal >=60 [facility] Comment on above: Result Comment: Repo rted eGFR is based on the CKD-EPI 2020 equation using creatinine, age, and sex. Performed By: #### T YPEC #### [facility] (DEFAULT) [address] [place] [address] 43973 Glucose [Mass/Vol] 98 mg/dL Normal 70-99 [facility] Comment on above: Performed By: #### T YPEC #### [facility] (DEFAULT) [address] [place] [address] 21289 Osmolality [Osmolality] 288 mosm/kg Normal 278-305 [facility] Comment on above: Performed By: #### T YPEC #### [facility] (DEFAULT) [address] [place] [address] 91797 Potassium [Moles/Vol] 4.4 mmol/L Normal 3.5-5.0 [facility] Comment on above: Performed By: #### T YPEC #### [facility] (DEFAULT) [address] [place] [address] 76647 Sodium [Moles/Vol] 137 mmol/L Normal 135-145 [facility] Comment on above: Performed By: #### T YPEC #### [facility] (DEFAULT) [address] [place] [address] 76552 Urea nitrogen [Mass/Vol] 13 mg/dL Normal 7-25 [facility] Comment on above: Performed By: #### T YPEC #### [facility] (DEFAULT) [address] [place] [address] 88929 Urea nitrogen/Creatinine [Mass ratio] 19 mg/mg Normal [facility] Comment on above: Performed By: #### T YPEC #### U [facility] (DEFAULT) [address] [place] [address] 50256 HCG QUALITATIVE, URINEon Beta HCG ( test) Ql (U) Negative Normal Negative [facility] Comment on above: Performed By: #### U HCG #### U [facility] (DEFAULT) [address] [place] [address] 52620 PT,INR,PTTon 09-30-2023 aPTT Coag (Bld) [Time] 23.1 s Low 24.0-34.3 [facility] Comment on above: Result Comment: Spec imen integrity checked. Performed By: #### T YPEC #### U [facility] (DEFAULT) [address] [place] [address] 86055 INR Coag (PPP) [Relative time] 1.1 {INR} Normal 0.9-1.1 [facility] Comment on above: Performed By: #### T YPEC #### [facility] (DEFAULT) [address] [place] [address] 96834 PT Coag (PPP) [Time] 14.5 s High 11.9-14.2 [facility] Comment on above: Performed By: #### T YPEC #### [facility] (DEFAULT) [address] [place] [address] 09850 CHEM 7 (LYTES,BUN,CREA,GLUC) on 09-29-2023 Anion gap [Moles/Vol] 13 mmol/L Normal 7-17 [facility] Comment on above: Performed By: #### B LDCULT #### U [facility] (DEFAULT) [address] [place] [address] 66463 Chloride [Moles/Vol] 99 mmol/L Normal 98-108 [facility] Comment on above: Performed By: #### B LDCULT #### [facility] (DEFAULT) [address] [place] [address] 04117 CO2 [Moles/Vol] 29 mmol/L Normal 21-31 [facility] Comment on above: Performed By: #### B LDCULT #### U [facility] (DEFAULT) [address] [place] [address] 53182 Creatinine [Mass/Vol] 0.71 mg/dL Normal 0.50-1.20 [facility] Comment on above: Performed By: #### B LDCULT #### [facility] (DEFAULT) [address] [place] [address] 98959 eGFR, CKD-EPI, Female > Normal >=60 [facility] Comment on above: Result Comment: Repo rted eGFR is based on the CKD-EPI 2020 equation using creatinine, age, and sex. Performed By: #### B LDCULT #### [facility] (DEFAULT) [address] [place] [address] 08274 Glucose [Mass/Vol] 103 mg/dL High 70-99 [facility] Comment on above: Performed By: #### B LDCULT #### [facility] (DEFAULT) [address] [place] [address] 02519 Osmolality [Osmolality] 287 mosm/kg Normal 278-305 [facility] Comment on above: Performed By: #### B LDCULT #### [facility] (DEFAULT) [address] [place] [address] 62725 Potassium [Moles/Vol] 4.2 mmol/L Normal 3.5-5.0 [facility] Comment on above: Performed By: #### B LDCULT #### [facility] (DEFAULT) [address] [place] [address] 33921 Sodium [Moles/Vol] 137 mmol/L Normal 135-145 [facility] Comment on above: Performed By: #### B LDCULT #### [facility] (DEFAULT) [address] [place] [address] 86631 Urea nitrogen [Mass/Vol] 11 mg/dL Normal 7-25 [facility] Comment on above: Performed By: #### B LDCULT #### [facility] (DEFAULT) [address] [place] [address] 71209 Urea nitrogen/Creatinine [Mass ratio] 15 mg/mg Normal [facility] Comment on above: Performed By: #### B LDCULT #### [facility] (DEFAULT) [address] [place] [address] 84349 CHEM 7 (LYTES,BUN,CREA,GLUC) on 09-28-2023 Anion gap [Moles/Vol] 13 mmol/L Normal 7-17 [facility] Comment on above: Performed By: #### C HM7, MGO #### [facility] (DEFAULT) [address] [place] [address] 21063 Chloride [Moles/Vol] 98 mmol/L Normal 98-108 [facility] Comment on above: Performed By: #### C HM7, MGO #### [facility] (DEFAULT) [address] [place] [address] 67060 CO2 [Moles/Vol] 29 mmol/L Normal 21-31 [facility] Comment on above: Performed By: #### C HM7, MGO #### [facility] (DEFAULT) [address] [place] [address] 24496 Creatinine [Mass/Vol] 0.61 mg/dL Normal 0.50-1.20 [facility] Comment on above: Performed By: #### C HM7, MGO #### [facility] (DEFAULT) [address] [place] [address] 57120 eGFR, CKD-EPI, Female > Normal >=60 [facility] Comment on above: Result Comment: Repo rted eGFR is based on the CKD-EPI 2020 equation using creatinine, age, and sex. Performed By: #### C HM7, MGO #### [facility] (DEFAULT) [address] [place] [address] 90704 Glucose [Mass/Vol] 101 mg/dL High 70-99 [facility] Comment on above: Performed By: #### C HM7, MGO #### [facility] (DEFAULT) [address] [place] [address] 38951 Osmolality [Osmolality] 283 mosm/kg Normal 278-305 [facility] Comment on above: Performed By: #### C HM7, MGO #### [facility] (DEFAULT) [address] [place] [address] 08509 Potassium [Moles/Vol] 4.5 mmol/L Normal 3.5-5.0 [facility] Comment on above: Performed By: #### C HM7, MGO #### [facility] (DEFAULT) [address] [place] [address] 17625 Sodium [Moles/Vol] 135 mmol/L Normal 135-145 [facility] Comment on above: Performed By: #### C HM7, MGO #### [facility] (DEFAULT) [address] [place] [address] 43176 Urea nitrogen [Mass/Vol] 8 mg/dL Normal 7-25 [facility] Comment on above: Performed By: #### C HM7, MGO #### [facility] (DEFAULT) [address] [place] [address] 21449 Urea nitrogen/Creatinine [Mass ratio] 13 mg/mg Normal [facility] Comment on above: Performed By: #### C HM7, MGO #### [facility] (DEFAULT) [address] [place] [address] 77361 PLATELET COUNTon 09-28-2023 Platelet mean volume (Bld) [Entitic vol] 9.5 fL Normal 8.5-12.2 [facility] Comment on above: Performed By: #### B LDCULT #### [facility] (DEFAULT) [address] [place] [address] 41604 Platelets (Bld) [#/Vol] 467 10*3/uL High 150-393 [facility] Comment on above: Performed By: #### B LDCULT #### [facility] (DEFAULT) [address] [place] [address] 40505 Status Note/Updateon 023 Status Note/Update [facility] Medical Records Patient: GEOVANNY MEJÍA [address]. : 1970 [place], [place] [address] Location: [facility] [phone] Unit #: [id number] Status Note/Update Ryanne Morales PA-C Service Dt/Tm: [...] MD on 09/27/23 1124 < > Normal [facility] CHEM 7 (LYTES,BUN,CREA,GLUC) on 09-26-2023 Anion gap [Moles/Vol] 11 mmol/L Normal 7-17 [facility] Comment on above: Performed By: #### C HM7 #### [facility] (DEFAULT) [address] [place] [address] 25729 Chloride [Moles/Vol] 99 mmol/L Normal 98-108 [facility] Comment on above: Performed By: #### C HM7 #### [facility] (DEFAULT) [address] [place] [address] 64911 CO2 [Moles/Vol] 30 mmol/L Normal 21-31 [facility] Comment on above: Performed By: #### C HM7 #### [facility] (DEFAULT) [address] [place] [address] 43968 Creatinine [Mass/Vol] 0.54 mg/dL Normal 0.50-1.20 [facility] Comment on above: Performed By: #### C HM7 #### [facility] (DEFAULT) [address] [place] [address] 48177 eGFR, CKD-EPI, Female > Normal >=60 [facility] Comment on above: Result Comment: Repo rted eGFR is based on the CKD-EPI 2020 equation using creatinine, age, and sex. Performed By: #### C HM7 #### [facility] (DEFAULT) [address] [place] [address] 86576 Glucose [Mass/Vol] 94 mg/dL Normal 70-99 [facility] Comment on above: Performed By: #### C HM7 #### [facility] (DEFAULT) [address] [place] [address] 95811 Osmolality [Osmolality] 283 mosm/kg Normal 278-305 [facility] Comment on above: Performed By: #### C HM7 #### [facility] (DEFAULT) [address] [place] [address] 90652 Potassium [Moles/Vol] 4.2 mmol/L Normal 3.5-5.0 [facility] Comment on above: Performed By: #### C HM7 #### [facility] (DEFAULT) [address] [place] [address] 97175 Sodium [Moles/Vol] 136 mmol/L Normal 135-145 [facility] Comment on above: Performed By: #### C HM7 #### [facility] (DEFAULT) [address] [place] [address] 28719 Urea nitrogen [Mass/Vol] 6 mg/dL Low 7-25 [facility] Comment on above: Performed By: #### C HM7 #### [facility] (DEFAULT) [address] [place] [address] 74103 Urea nitrogen/Creatinine [Mass ratio] 11 mg/mg Normal [facility] Comment on above: Performed By: #### C HM7 #### [facility] (DEFAULT) [address] [place] [address] 68291 ABORH TYPE RECONFIRMATIONon 09-25-2023 ABO/RH(D) TYPE Positive Normal [facility] Comment on above: Performed By: #### T YPEC #### [facility] (DEFAULT) [address] [place] [address] 58333 C REACTIVE PROTEINon 023 CRP [Mass/Vol] 95.29 mg/L High <10.00 [facility] Comment on above: Performed By: #### V ANCTR #### [facility] (DEFAULT) [address] [place] [address] 78981 CBC,PLATELETSon 09-25-2023 Hematocrit (Bld) [Volume fraction] 23.3 % Low 34.9-44.3 [facility] Comment on above: Performed By: #### C HM7, MGO #### [facility] (DEFAULT) [address] [place] [address] 56078 Hemoglobin (Bld) [Mass/Vol] 7.4 g/dL Low 11.4-15.2 [facility] Comment on above: Performed By: #### C HM7, MGO #### [facility] (DEFAULT) [address] [place] [address] 50680 MCV (RBC) [Entitic vol] 86.9 fL Normal 79.6-97.7 [facility] Comment on above: Performed By: #### C HM7, MGO #### [facility] (DEFAULT) [address] [place] [address] 29864 Mean Cell Hgb 27.6 pg Normal 25.9-33.9 [facility] Comment on above: Performed By: #### C HM7, MGO #### [facility] (DEFAULT) [address] [place] [address] 13396 Mean Cell Hgb Conc 31.8 g/dL Normal 31.4-35.9 [facility] Comment on above: Performed By: #### C HM7, MGO #### [facility] (DEFAULT) [address] [place] [address] 69405 Platelet mean volume (Bld) [Entitic vol] 9.7 fL Normal 8.5-12.2 [facility] Comment on above: Performed By: #### C HM7, MGO #### [facility] (DEFAULT) [address] [place] [address] 64737 Platelets (Bld) [#/Vol] 360 10*3/uL Normal 150-393 [facility] Comment on above: Performed By: #### C HM7, MGO #### [facility] (DEFAULT) [address] [place] [address] 03820 RBC (Bld) [#/Vol] 2.68 10*6/uL Low 3.91-5.04 [facility] Comment on above: Performed By: #### C HM7, MGO #### [facility] (DEFAULT) [address] [place] [address] 66112 RBC Distribution 14.6 % Normal 10.8-14.9 [facility] Comment on above: Performed By: #### C HM7, MGO #### [facility] (DEFAULT) [address] [place] [address] 60921 WBC (Bld) [#/Vol] 5.41 10*3/uL Normal 3.99-11.19 [facility] Comment on above: Performed By: #### C HM7, MGO #### [facility] (DEFAULT) [address] [place] [address] 45249 CHEM 7 (LYTES,BUN,CREA,GLUC) on 09-25-2023 Anion gap [Moles/Vol] 13 mmol/L Normal 7-17 [facility] Comment on above: Performed By: #### C HM7, MGO #### [facility] (DEFAULT) [address] [place] [address] 02164 Chloride [Moles/Vol] 97 mmol/L Low 98-108 [facility] Comment on above: Performed By: #### C HM7, MGO #### [facility] (DEFAULT) [address] [place] [address] 47899 CO2 [Moles/Vol] 27 mmol/L Normal 21-31 [facility] Comment on above: Performed By: #### C HM7, MGO #### [facility] (DEFAULT) [address] [place] [address] 06309 Creatinine [Mass/Vol] 0.56 mg/dL Normal 0.50-1.20 [facility] Comment on above: Performed By: #### C HM7, MGO #### [facility] (DEFAULT) [address] [place] [address] 87533 eGFR, CKD-EPI, Female > Normal >=60 [facility] Comment on above: Result Comment: Repo rted eGFR is based on the CKD-EPI 2020 equation using creatinine, age, and sex. Performed By: #### C HM7, MGO #### [facility] (DEFAULT) [address] [place] [address] 07858 Glucose [Mass/Vol] 99 mg/dL Normal 70-99 [facility] Comment on above: Performed By: #### C HM7, MGO #### [facility] (DEFAULT) [address] [place] [address] 25254 Osmolality [Osmolality] 278 mosm/kg Normal 278-305 [facility] Comment on above: Performed By: #### C HM7, MGO #### [facility] (DEFAULT) [address] [place] [address] 81669 Potassium [Moles/Vol] 3.8 mmol/L Normal 3.5-5.0 [facility] Comment on above: Performed By: #### C HM7, MGO #### [facility] (DEFAULT) [address] [place] [address] 38485 Sodium [Moles/Vol] 133 mmol/L Low 135-145 [facility] Comment on above: Performed By: #### C HM7, MGO #### [facility] (DEFAULT) [address] [place] [address] 32468 Urea nitrogen [Mass/Vol] 8 mg/dL Normal 7-25 [facility] Comment on above: Performed By: #### C HM7, MGO #### [facility] (DEFAULT) [address] [place] [address] 04362 Urea nitrogen/Creatinine [Mass ratio] 14 mg/mg Normal [facility] Comment on above: Performed By: #### C HM7, MGO #### [facility] (DEFAULT) [address] [place] [address] 79680 Anion gap [Moles/Vol] 12 mmol/L Normal 7-17 [facility] Comment on above: Performed By: #### V ANCTR #### [facility] (DEFAULT) [address] [place] [address] 35548 Chloride [Moles/Vol] 96 mmol/L Low 98-108 [facility] Comment on above: Performed By: #### V ANCTR #### [facility] (DEFAULT) [address] [place] [address] 17884 CO2 [Moles/Vol] 28 mmol/L Normal 21-31 [facility] Comment on above: Performed By: #### V ANCTR #### [facility] (DEFAULT) [address] [place] [address] 74035 Creatinine [Mass/Vol] 0.46 mg/dL Low 0.50-1.20 [facility] Comment on above: Performed By: #### V ANCTR #### [facility] (DEFAULT) [address] [place] [address] 94918 eGFR, CKD-EPI, Female > Normal >=60 [facility] Comment on above: Result Comment: Repo rted eGFR is based on the CKD-EPI 2020 equation using creatinine, age, and sex. Performed By: #### V ANCTR #### [facility] (DEFAULT) [address] [place] [address] 20140 Glucose [Mass/Vol] 104 mg/dL High 70-99 [facility] Comment on above: Performed By: #### V ANCTR #### [facility] (DEFAULT) [address] [place] [address] 76094 Osmolality [Osmolality] 276 mosm/kg Low 278-305 [facility] Comment on above: Performed By: #### V ANCTR #### [facility] (DEFAULT) [address] [place] [address] 59336 Potassium [Moles/Vol] 3.7 mmol/L Normal 3.5-5.0 [facility] Comment on above: Performed By: #### V ANCTR #### [facility] (DEFAULT) [address] [place] [address] 49921 Sodium [Moles/Vol] 132 mmol/L Low 135-145 [facility] Comment on above: Performed By: #### V ANCTR #### [facility] (DEFAULT) [address] [place] [address] 90036 Urea nitrogen [Mass/Vol] 8 mg/dL Normal 7-25 [facility] Comment on above: Performed By: #### V ANCTR #### [facility] (DEFAULT) [address] [place] [address] 68460 Urea nitrogen/Creatinine [Mass ratio] 17 mg/mg Normal [facility] Comment on above: Performed By: #### V ANCTR #### [facility] (DEFAULT) [address] [place] [address] 20786 HEPATIC FUNCTION PANELon Albumin [Mass/Vol] 2.6 g/dL Low 3.5-5.0 [facility] Comment on above: Performed By: #### C HM7, MGO #### [facility] (DEFAULT) [address] [place] [address] 54456 ALP [Catalytic activity/Vol] 126 U/L Normal 32-126 [facility] Comment on above: Performed By: #### C HM7, MGO #### [facility] (DEFAULT) [address] [place] [address] 29295 ALT [Catalytic activity/Vol] 16 U/L Normal 9-48 [facility] Comment on above: Performed By: #### C HM7, MGO #### [facility] (DEFAULT) [address] [place] [address] 08715 AST [Catalytic activity/Vol] 18 U/L Normal 10-39 [facility] Comment on above: Performed By: #### Martir HM7, MGO #### [facility] (DEFAULT) [address] [place] [address] 46341 Bilirubin [Mass/Vol] 0.2 mg/dL Normal <1.5 [facility] Comment on above: Performed By: #### Martir HM7, MGO #### [facility] (DEFAULT) [address] [place] [address] 99995 Bilirubin Direct < Normal <0.3 [facility] Comment on above: Performed By: #### Martir HM7, MGO #### [facility] (DEFAULT) [address] [place] [address] 50149 Protein [Mass/Vol] 6.5 g/dL Normal 6.4-8.3 [facility] Comment on above: Performed By: #### Martir HM7, MGO #### [facility] (DEFAULT) [address] [place] [address] 89137 CBC,PLATELETSon 09-24-2023 Hematocrit (Bld) [Volume fraction] 23.3 % Low 34.9-44.3 [facility] Comment on above: Performed By: #### B LDCULT #### [facility] (DEFAULT) [address] [place] [address] 85491 Hemoglobin (Bld) [Mass/Vol] 7.2 g/dL Low 11.4-15.2 [facility] Comment on above: Performed By: #### B LDCULT #### [facility] (DEFAULT) [address] [place] [address] 38822 MCV (RBC) [Entitic vol] 88.6 fL Normal 79.6-97.7 [facility] Comment on above: Performed By: #### B LDCULT #### [facility] (DEFAULT) [address] [place] [address] 10705 Mean Cell Hgb 27.4 pg Normal 25.9-33.9 [facility] Comment on above: Performed By: #### B LDCULT #### [facility] (DEFAULT) [address] [address] Mean Cell Hgb Conc 30.9 g/dL Low 31.4-35.9 [facility] Comment on above: Performed By: #### B LDCULT #### [facility] (DEFAULT) [address] 87860 Platelet mean volume (Bld) [Entitic vol] 10.0 fL Normal 8.5-12.2 [facility] Comment on above: Performed By: #### B LDCULT #### [facility] (DEFAULT) [address] [address]48 Platelets (Bld) [#/Vol] 406 10*3/uL High 150-393 [facility] Comment on above: Performed By: #### B LDCULT #### [facility] (DEFAULT) [address] 68605 RBC (Bld) [#/Vol] 2.63 10*6/uL Low 3.91-5.04 [facility] Comment on above: Performed By: #### B LDCULT #### [facility] (DEFAULT) [address] 40245 RBC Distribution 14.7 % Normal 10.8-14.9 [facility] Comment on above: Performed By: #### B LDCULT #### [facility] (DEFAULT) [address] [place] [address] 41047 WBC (Bld) [#/Vol] 7.19 10*3/uL Normal 3.99-11.19 [facility] Comment on above: Performed By: #### B LDCULT #### [facility] (DEFAULT) [address] [place] [address] 03835 CHEM 7 (LYTES,BUN,CREA,GLUC) on 09-24-2023 Anion gap [Moles/Vol] 14 mmol/L Normal 7-17 [facility] Comment on above: Performed By: #### C HM7, MGO #### [facility] (DEFAULT) [address] [place] [address] 02856 Chloride [Moles/Vol] 95 mmol/L Low 98-108 [facility] Comment on above: Performed By: #### C HM7, MGO #### [facility] (DEFAULT) [address] [place] [address] 32171 CO2 [Moles/Vol] 26 mmol/L Normal 21-31 [facility] Comment on above: Performed By: #### C HM7, MGO #### [facility] (DEFAULT) [address] [place] [address] 85748 Creatinine [Mass/Vol] 0.53 mg/dL Normal 0.50-1.20 [facility] Comment on above: Performed By: #### C HM7, MGO #### [facility] (DEFAULT) [address] [place] [address] 36108 eGFR, CKD-EPI, Female > Normal >=60 [facility] Comment on above: Result Comment: Repo rted eGFR is based on the CKD-EPI 2020 equation using creatinine, age, and sex. Performed By: #### C HM7, MGO #### [facility] (DEFAULT) [address] [place] [address] 05109 Glucose [Mass/Vol] 104 mg/dL High 70-99 [facility] Comment on above: Performed By: #### C HM7, MGO #### [facility] (DEFAULT) [address] [place] [address] 63836 Osmolality [Osmolality] 274 mosm/kg Low 278-305 [facility] Comment on above: Performed By: #### C HM7, MGO #### [facility] (DEFAULT) [address] [place] [address] 16004 Potassium [Moles/Vol] 3.5 mmol/L Normal 3.5-5.0 [facility] Comment on above: Performed By: #### C HM7, MGO #### [facility] (DEFAULT) [address] [place] [address] 37408 Sodium [Moles/Vol] 131 mmol/L Low 135-145 [facility] Comment on above: Performed By: #### C HM7, MGO #### [facility] (DEFAULT) [address] [place] [address] 04467 Urea nitrogen [Mass/Vol] 8 mg/dL Normal 7-25 [facility] Comment on above: Performed By: #### C HM7, MGO #### [facility] (DEFAULT) [address] [place] [address] 15135 Urea nitrogen/Creatinine [Mass ratio] 15 mg/mg Normal [facility] Comment on above: Performed By: #### C HM7, MGO #### [facility] (DEFAULT) [address] [place] [address] 89402 MAGNESIUMon 09-24-2023 Magnesium [Mass/Vol] 1.7 mg/dL Normal 1.6-2.6 [facility] Comment on above: Performed By: #### C HM7, MGO #### [facility] (DEFAULT) [address] [place] [address] 26196 TYPE AND SCREENon 09-24-2023 ABO/RH(D) TYPE Positive Normal [facility] Comment on above: Performed By: #### X M #### [facility] (DEFAULT) [address] [address]26 CBC,PLATELETSon 09-23-2023 Hematocrit (Bld) [Volume fraction] 22.0 % Low 34.9-44.3 [facility] Comment on above: Performed By: #### V ANCTR #### [facility] (DEFAULT) [address] 82880 Hemoglobin (Bld) [Mass/Vol] 6.8 g/dL Critically low 11.4-15.2 [facility] Comment on above: Result Comment: This result has been called to MARK BUSH RN by LAURA DOSS on 09 23 2023 at 1815, and has been read back. Performed By: #### V ANCTR #### [facility] (DEFAULT) [address] [address]993 MCV (RBC) [Entitic vol] 87.6 fL Normal 79.6-97.7 [facility] Comment on above: Performed By: #### V ANCTR #### [facility] (DEFAULT) [address] 66093 Mean Cell Hgb 27.1 pg Normal 25.9-33.9 [facility] Comment on above: Performed By: #### V ANCTR #### [facility] (DEFAULT) [address] 25404 Mean Cell Hgb Conc 30.9 g/dL Low 31.4-35.9 [facility] Comment on above: Performed By: #### V ANCTR #### [facility] (DEFAULT) [address] 22402 Platelet mean volume (Bld) [Entitic vol] 10.2 fL Normal 8.5-12.2 [facility] Comment on above: Performed By: #### V ANCTR #### [facility] (DEFAULT) [address] [address]36 Platelets (Bld) [#/Vol] 374 10*3/uL Normal 150-393 [facility] Comment on above: Performed By: #### V ANCTR #### [facility] (DEFAULT) [address] [place] [address] 57490 RBC (Bld) [#/Vol] 2.51 10*6/uL Low 3.91-5.04 [facility] Comment on above: Performed By: #### V ANCTR #### [facility] (DEFAULT) [address] [place] [address] 88547 RBC Distribution 14.6 % Normal 10.8-14.9 [facility] Comment on above: Performed By: #### V ANCTR #### [facility] (DEFAULT) [address] [place] [address] 66159 WBC (Bld) [#/Vol] 7.70 10*3/uL Normal 3.99-11.19 [facility] Comment on above: Performed By: #### V ANCTR #### [facility] (DEFAULT) [address] [address]222 ECHOCARDIOGRAMon 09-23-2023 Echocardiography TTE for evaluation o [...] the original result were not included. Facility [facility] Patient Information Patient Name Geovanny Mejía [...] Role Read Date Aiden Jorgensen MD Echo [place] 09/23/2023 Left Heart Measurements LV - Systole [...] Tricuspid Valv (more content not included)... Normal [facility] LACTATE, BLOODon 09-23-2023 Lactate, Blood 1.2 mmol/L Normal 0.5-1.6 [facility] Comment on above: Performed By: #### C HM7, MGO #### [facility] (DEFAULT) [address] [place] [address] CHEM 7 (LYTES,BUN,CREA,GLUC) on 09-22-2023 Anion gap [Moles/Vol] 13 mmol/L Normal 7-17 [facility] Comment on above: Performed By: #### U HCG #### [facility] (DEFAULT) [address] [place] [address] 91392 Chloride [Moles/Vol] 97 mmol/L Low 98-108 [facility] Comment on above: Performed By: #### U HCG #### [facility] (DEFAULT) [address] [place] [address] 31246 CO2 [Moles/Vol] 25 mmol/L Normal 21-31 [facility] Comment on above: Performed By: #### U HCG #### [facility] (DEFAULT) [address] [place] [address] 99542 Creatinine [Mass/Vol] 0.59 mg/dL Normal 0.50-1.20 [facility] Comment on above: Performed By: #### U HCG #### [facility] (DEFAULT) [address] [place] [address] 69531 eGFR, CKD-EPI, Female > Normal >=60 [facility] Comment on above: Result Comment: Repo rted eGFR is based on the CKD-EPI 2020 equation using creatinine, age, and sex. Performed By: #### U HCG #### [facility] (DEFAULT) [address] [place] [address] 84138 Glucose [Mass/Vol] 133 mg/dL High 70-99 [facility] Comment on above: Performed By: #### U HCG #### [facility] (DEFAULT) [address] [place] [address] 28956 Osmolality [Osmolality] 277 mosm/kg Low 278-305 [facility] Comment on above: Performed By: #### U HCG #### [facility] (DEFAULT) [address] [place] [address] 91331 Potassium [Moles/Vol] 3.8 mmol/L Normal 3.5-5.0 [facility] Comment on above: Performed By: #### U HCG #### [facility] (DEFAULT) [address] [place] [address] Sodium [Moles/Vol] 131 mmol/L Low 135-145 [facility] Comment on above: Performed By: #### U HCG #### [facility] (DEFAULT) [address] [place] [address] Urea nitrogen [Mass/Vol] 10 mg/dL Normal 7-25 [facility] Comment on above: Performed By: #### U HCG #### [facility] (DEFAULT) [address] [place] [address] Urea nitrogen/Creatinine [Mass ratio] 17 mg/mg Normal [facility] Comment on above: Performed By: #### U HCG #### [facility] (DEFAULT) [address] [place] [address] ABDOMEN/PELVIS WITH CONTR Conrado 09-22-2023 CT ABDOMEN/PELVIS WITH CONTRAST EXAM: CT [...] percutaneous pigtail catheter. The collection has a contracts representative measurement of 5.4 x 2.7 cm [...] aspect of the rectal wall, with a contracts representative measurement of 3.1 x 1.4 cm [...] for detailed description of intrathoracic contents. Normal [facility] Case Management Daily Noteon 09-22-2023 Case Management Daily Note [facility] Case Management Patient: GEOVANNY MEJÍA [address] : 1970 [place], [place] [address] Location: [facility] [phone] Unit #: [id number] Case Management Daily Note Evelyne Pena RN Service Date: 09/11/23 Case Mgmt Daily Note - Plan of Care Controls Technician Agrees with Attending and Consult Plan: Yes - Patient Preferences AND Goals What is the patient's preference?: Home Care Recommended acute discharge goals: Home Care - Hospital Stay Days Day 1 Comment: 09/08 Met with patient in the room. Patient is from [place]. She is up here to visit her sister. Patient reporting she is normally independent. Does not have a PCP. Patient would like to use [facility] OP Pharm for meds. Planning to have her cousin pick her up at d/c. Contact is her cousin Ursula. Denies having LW/dPOA. Controls Technician: Evelyne Pena, RN Day 2 Comment: 09/09 Met with patient in the room. Patient asking to get up and move around. PT/OT to [facility]. S/p L ABD drain placement. Patient agreeable to [facility] for drain mgmt if needed. Reporting she will be going to [facility] at d/c to stay with her cousin Ursula. spoke with patients cousin Ursula via telephone who reports she is ok with [facility] coming to her home if patient would go there at d/c. Ursula reporting patient was homeless in [place] and recently move to [place] with her sister Monique. Controls Technician: Evelyne Pena, RN Day 3 Comment: 09/10 D/c needs pending medical course. Jr mullen. Dilaudid MATERIALS AND PROCESSES MANAGER. PT/OT. ID c/s. Therapy recs for IPR vs OP PT. Will follow to assist with d/c needs. Controls Technician: Evelyne Pena, RN Day 4 Comment: 09/11 Met with patient in the room who is planning to d/c to her cousin Gena lutz in [place], [place]. Patient is agreeable to [facility]. CM spoke with Ursula who is agreeable for patient to come there at d/c. Referral sent to [facility]. Await approval. PCA. BUSTER blevins. NPO. ID c/s. PT/OT. Controls Technician: Evelyne Pena RN - Home Health/IV Infusion/Wound Vac Home Health Referral Indicated: Yes Home Health List Provided: Yes Indication for Home Health: Wound Care, Other Patient's Response: Yes Home Health Agencies: [facility] Patient given the option to view [...] 1622 < > Co-Signed by: on Normal [facility] Case Management Daily Note [facility] Case Management Patient: GEOVANNY MEJÍA. : 1970 [place], [place] [address] Location: [phone] Unit #: [id number] Case Management Daily Note Evelyne Pena RN Service Date: 09/12/23 Case Mgmt Daily Note - Plan of Care Controls Technician Agrees with Attending and Consult Plan: Yes - Patient Preferences AND Goals What is the patient's preference?: New SNF Recommended acute discharge goals: New SNF - COVID-19 Was Position Statement Letter Delivered?: Yes - Hospital Stay Days Day 1 Comment: 09/08 Met with patient in the room. Patient is from [place]. She is up here to visit her sister. Patient reporting she is normally independent. Does not have a PCP. Patient would like to use [facility] OP Pharm for meds. Planning to have her cousin pick her up at d/c. Contact is her cousin Ursula. Denies having LW/dPOA. Controls Technician: Evelyne Pena, RN Day 2 Comment: 09/09 Met with patient in the room. Patient asking to get up and move around. PT/OT to eval. S/p L ABD drain placement. Patient agreeable to [facility] for drain mgmt if needed. Reporting she will be going to [facility] at d/c to stay with her cousin Ursula. CM spoke with patients cousin Ursula via telephone who reports she is ok with [facility] coming to her home if patient would go there at d/c. Ursula reporting patient was homeless in [place] and recently move to [place] with her sister Monique. Controls Technician: Evelyne Pena, RN Day 3 Comment: 09/10 D/c needs pending medical course. Jr present. Dilaudid MATERIALS AND PROCESSES MANAGER. PT/OT. ID c/s. Therapy recs for IPR vs OP PT. Will follow to assist with d/c needs. Controls Technician: Evelyne Pena, RN Day 4 Comment: 09/11 Met with patient in the room who is planning to d/c to her cousin Gena lutz in [place], [place]. Patient is agreeable to [facility]. CM spoke with Ursula who is agreeable for patient to come there at d/c. Referral sent to [facility]. Await approval. 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 ABD drain. NPO. ID c/s. PT/OT. Controls Technician: Evelyne Pena, RN Day 5 Comment: 09/12 Met with patient in the room to discuss d/c plan. Patient unable to move b/l LE. No sensation to RLE. Does have sesation to LLE. PT/OT recommending SNF, patient agreeable. She would like to go somewhere near her cousin Ursula in [place], [place]. CM assisted patient with changing her address with her [facility] insurance to an [place] address. SW c/s for SNF placement and [facility] assist with [place]. Patient will need a precert. MATERIALS AND PROCESSES MANAGER continues. If patient would improve with mobility, she has been accepted to [facility]. CM spoke with Ursula via telephone to update. Controls Technician: Evelyne Pena RN - Home Health/IV Infusion/Wound Vac Home Health Referral Indicated: Yes Home Health List Provided: Yes Indication for Home Health: Wound Care, Other Patient's Response: Yes Home Health Agencies: [facility] Patient given the option to view [...] a ARCHIBALD Form Required?: No Entered by: Evelnye Pena RN on 09/12/23 1029 Report Signed by: Evelyne Pena RN on 09/22/23 1622 < > Co-Signed by: on Normal [facility] BLOOD CULTUREon 09-21-2023 Bacteria identified Cx Nom (Unsp spec) NO GROWTH DAY 5 OF 5 Normal [facility] Comment on above: Order Comment: 2 [...] anaerobic Performed By: #### B LDCULT #### [facility] (DEFAULT) [address] [place] [address] Order Comment: 2 Bot tles (1 Set [...] Performed By: #### U HCG #### [facility] (DEFAULT) [address] [place] [address] 22867 CBC,PLATELETSon 09-21-2023 Hematocrit (Bld) [Volume fraction] 24.7 % Low 34.9-44.3 [facility] Comment on above: Performed By: #### C HM7, MGO #### [facility] (DEFAULT) [address] [place] [address] 84993 Hemoglobin (Bld) [Mass/Vol] 7.7 g/dL Low 11.4-15.2 [facility] Comment on above: Performed By: #### C HM7, MGO #### [facility] (DEFAULT) [address] [place] [address] 00625 MCV (RBC) [Entitic vol] 89.5 fL Normal 79.6-97.7 [facility] Comment on above: Performed By: #### C HM7, MGO #### [facility] (DEFAULT) [address] [place] [address] 03997 Mean Cell Hgb 27.9 pg Normal 25.9-33.9 [facility] Comment on above: Performed By: #### C HM7, MGO #### [facility] (DEFAULT) [address] [place] [address] 90237 Mean Cell Hgb Conc 31.2 g/dL Low 31.4-35.9 [facility] Comment on above: Performed By: #### C HM7, MGO #### [facility] (DEFAULT) [address] [place] [address] 85192 Platelet mean volume (Bld) [Entitic vol] 10.0 fL Normal 8.5-12.2 [facility] Comment on above: Performed By: #### C HM7, MGO #### [facility] (DEFAULT) [address] [place] [address] 57806 Platelets (Bld) [#/Vol] 481 10*3/uL High 150-393 [facility] Comment on above: Performed By: #### C HM7, MGO #### [facility] (DEFAULT) [address] [place] [address] 33298 RBC (Bld) [#/Vol] 2.76 10*6/uL Low 3.91-5.04 [facility] Comment on above: Performed By: #### C HM7, MGO #### [facility] (DEFAULT) [address] [place] [address] 73847 RBC Distribution 15.0 % High 10.8-14.9 [facility] Comment on above: Performed By: #### C HM7, MGO #### [facility] (DEFAULT) [address] [place] [address] 56483 WBC (Bld) [#/Vol] 8.57 10*3/uL Normal 3.99-11.19 [facility] Comment on above: Performed By: #### C HM7, MGO #### [facility] (DEFAULT) [address] [place] [address]1341 CHEM 7 (LYTES,BUN,CREA,GLUC) on 09-21-2023 Anion gap [Moles/Vol] 14 mmol/L Normal 7-17 [facility] Comment on above: Performed By: #### V ANCTR #### [facility] (DEFAULT) [address] [place] [address] 28037 Chloride [Moles/Vol] 93 mmol/L Low 98-108 [facility] Comment on above: Performed By: #### V ANCTR #### [facility] (DEFAULT) [address] [place] [address] 28904 CO2 [Moles/Vol] 24 mmol/L Normal 21-31 [facility] Comment on above: Performed By: #### V ANCTR #### [facility] (DEFAULT) [address] [place] [address] 02846 Creatinine [Mass/Vol] 0.81 mg/dL Normal 0.50-1.20 [facility] Comment on above: Performed By: #### V ANCTR #### [facility] (DEFAULT) [address] [address] GFR/1.73 sq M.predicted among non-blacks MDRD (S/P/Bld) [Vol rate/Area] 86 mL/min/{1.73_m2} Normal >=60 [facility] Comment on above: Result Comment: Repo rted eGFR is based on the CKD-EPI 2020 equation using creatinine, age, and sex. Performed By: #### V ANCTR #### [facility] (DEFAULT) [address] [address] Glucose [Mass/Vol] 131 mg/dL High 70-99 [facility] Comment on above: Performed By: #### V ANCTR #### [facility] (DEFAULT) [address] [address] Osmolality [Osmolality] 272 mosm/kg Low 278-305 [facility] Comment on above: Performed By: #### V ANCTR #### [facility] (DEFAULT) [address] [address] Potassium [Moles/Vol] 4.3 mmol/L Normal 3.5-5.0 [facility] Comment on above: Performed By: #### V ANCTR #### [facility] (DEFAULT) [address] [place] [address] 46183 Sodium [Moles/Vol] 127 mmol/L Low 135-145 [facility] Comment on above: Performed By: #### V ANCTR #### [facility] (DEFAULT) [address] [address] Urea nitrogen [Mass/Vol] 14 mg/dL Normal 7-25 [facility] Comment on above: Performed By: #### V ANCTR #### [facility] (DEFAULT) [address] [address] Urea nitrogen/Creatinine [Mass ratio] 17 mg/mg Normal [facility] Comment on above: Performed By: #### V ANCTR #### [facility] (DEFAULT) [address] [place] [address] CHEST WITH CONTRASTon CT CHEST WITH [...] without related post operative fluid collections. Normal [facility] URINALYSIS REFLEX TO CULTURE PERFORMABLEon 09-21-2023 Appearance (U) Clear Normal Clear [facility] Comment on above: Order Comment: For i ndwelling catheters, specimen collection is acceptable on catheter day 1 and 2 only. ? Performed By: #### U HCG #### [facility] (DEFAULT) [address] [place] [address] 70730 Bacteria ABSENT Normal ABSENT [facility] Comment on above: Order Comment: For i ndwelling catheters, specimen collection is acceptable on catheter day 1 and 2 only. ? Performed By: #### U HCG #### [facility] (DEFAULT) [address] [address] Blood Urine Negative Normal Negative [facility] Comment on above: Order Comment: For i ndwelling catheters, specimen collection is acceptable on catheter day 1 and 2 only. ? Performed By: #### U HCG #### [facility] (DEFAULT) [address] [place] [address] 86649 Color (U) Yellow Normal Yellow [facility] Comment on above: Order Comment: For i ndwelling catheters, specimen collection is acceptable on catheter day 1 and 2 only. ? Performed By: #### U HCG #### [facility] (DEFAULT) [address] [place] [address] 47272 Glucose Ql (U) Negative Normal Negative [facility] Comment on above: Order Comment: For i ndwelling catheters, specimen collection is acceptable on catheter day 1 and 2 only. ? Performed By: #### U HCG #### [facility] (DEFAULT) [address] [place] [address] 42840 Ketones Ql (U) Negative Normal Negative [facility] Comment on above: Order Comment: For i ndwelling catheters, specimen collection is acceptable on catheter day 1 and 2 only. ? Performed By: #### U HCG #### [facility] (DEFAULT) [address] [place] [address] 28326 Leukocyte esterase Test strip Ql (U) Negative Normal Negative [facility] Comment on above: Order Comment: For i ndwelling catheters, specimen collection is acceptable on catheter day 1 and 2 only. ? Performed By: #### U HCG #### [facility] (DEFAULT) [address] [place] [address] 43112 Nitrites Urine Negative Normal Negative [facility] Comment on above: Order Comment: For i ndwelling catheters, specimen collection is acceptable on catheter day 1 and 2 only. ? Performed By: #### U HCG #### [facility] (DEFAULT) [address] [place] [address] 84348 pH (U) 6.5 [pH] Normal 5.0-7.0 [facility] Comment on above: Order Comment: For i ndwelling catheters, specimen collection is acceptable on catheter day 1 and 2 only. ? Performed By: #### U HCG #### [facility] (DEFAULT) [address] [place] [address] 92404 Protein Urine Negative Normal Negative [facility] Comment on above: Order Comment: For i ndwelling catheters, specimen collection is acceptable on catheter day 1 and 2 only. ? Performed By: #### U HCG #### [facility] (DEFAULT) [address] [place] [address] 20482 RBC Urine 0-2 Normal 0-2 [facility] Comment on above: Order Comment: For i ndwelling catheters, specimen collection is acceptable on catheter day 1 and 2 only. ? Performed By: #### U HCG #### [facility] (DEFAULT) [address] [place] [address] 93183 Specific [place] Urine 1.011 Normal 1.001-1.035 [facility] Comment on above: Order Comment: For i ndwelling catheters, specimen collection is acceptable on catheter day 1 and 2 only. ? Performed By: #### U HCG #### [facility] (DEFAULT) [address] [place] [address] 48848 Squamous/Epithelial Cells 0-2/hpf Normal 0-2/hpf, 3-5/hpf = 1+ [facility] Comment on above: Order Comment: For i ndwelling catheters, specimen collection is acceptable on catheter day 1 and 2 only. ? Performed By: #### U HCG #### [facility] (DEFAULT) [address] [address] Urobilinogen Urine 1.0 E.U./dL Normal 0.2 E.U/d L, 1.0 E.U/dL [facility] Comment on above: Order Comment: For i ndwelling catheters, specimen collection is acceptable on catheter day 1 and 2 only. ? Performed By: #### U HCG #### [facility] (DEFAULT) [address] [place] [address] 07163 WBC Urine 0 - 5 Normal 0 - 5 [facility] Comment on above: Order Comment: For i ndwelling catheters, specimen collection is acceptable on catheter day 1 and 2 only. ? Performed By: #### U HCG #### [facility] (DEFAULT) [address] [address] VANCOMYCIN LEVEL, TROUGH (OK E DRUG LEVEL)on 09-21-2023 Vancomycin, Trough 13.1 mcg/mL Normal Therapeut ic Range: 10.0-20.0 mcg/mL [facility] Comment on above: Order Comment: 2 [...] Performed By: #### B LDCULT #### [facility] (DEFAULT) [address] [address] CHEM 7 (LYTES,BUN,CREA,GLUC) on 09-20-2023 Anion gap [Moles/Vol] 13 mmol/L Normal 7-17 [facility] Comment on above: Performed By: #### V ANCTR #### [facility] (DEFAULT) [address] [place] [address] 99415 Chloride [Moles/Vol] 94 mmol/L Low 98-108 [facility] Comment on above: Performed By: #### V ANCTR #### [facility] (DEFAULT) [address] [place] [address] 66676 CO2 [Moles/Vol] 27 mmol/L Normal 21-31 [facility] Comment on above: Performed By: #### V ANCTR #### [facility] (DEFAULT) [address] [place] [address] 81255 Creatinine [Mass/Vol] 0.63 mg/dL Normal 0.50-1.20 [facility] Comment on above: Performed By: #### V ANCTR #### [facility] (DEFAULT) [address] [place] [address] 60648 eGFR, CKD-EPI, Female > Normal >=60 [facility] Comment on above: Result Comment: Repo rted eGFR is based on the CKD-EPI 2020 equation using creatinine, age, and sex. Performed By: #### V ANCTR #### [facility] (DEFAULT) [address] [place] [address] 97158 Glucose [Mass/Vol] 104 mg/dL High 70-99 [facility] Comment on above: Performed By: #### V ANCTR #### [facility] (DEFAULT) [address] [place] [address] 36319 Osmolality [Osmolality] 275 mosm/kg Low 278-305 [facility] Comment on above: Performed By: #### V ANCTR #### [facility] (DEFAULT) [address] [place] [address] 38602 Potassium [Moles/Vol] 4.4 mmol/L Normal 3.5-5.0 [facility] Comment on above: Performed By: #### V ANCTR #### [facility] (DEFAULT) [address] [place] [address] 83594 Sodium [Moles/Vol] 130 mmol/L Low 135-145 [facility] Comment on above: Performed By: #### V ANCTR #### [facility] (DEFAULT) [address] [place] [address] 04383 Urea nitrogen [Mass/Vol] 12 mg/dL Normal 7-25 [facility] Comment on above: Performed By: #### V ANCTR #### [facility] (DEFAULT) [address] [place] [address] 30715 Urea nitrogen/Creatinine [Mass ratio] 19 mg/mg Normal [facility] Comment on above: Performed By: #### V ANCTR #### [facility] (DEFAULT) [address] [address] CREATININE,RANDOM URINEon Creatinine (U) [Mass/Vol] 29.34 mg/dL Normal [facility] Comment on above: Order Comment: The r eference range has not been established for random urine specimens. The test result should be integrated into the clinical context for interpretation. Performed By: #### U HCG #### [facility] (DEFAULT) [address] [place] [address] 41498 LYTES (NA, K, CL) - URINE - RANDOMon 09-20-2023 Sodium (U) [Moles/Vol] 62 mmol/L Normal [facility] Comment on above: Order Comment: The r eference range has not been established for random urine specimens. The test result should be integrated into the clinical context for interpretation. Performed By: #### U HCG #### [facility] (DEFAULT) [address] [place] [address] 26192 Urine Chloride 66 mmol/L Normal [facility] Comment on above: Order Comment: The r eference range has not been established for random urine specimens. The test result should be integrated into the clinical context for interpretation. Performed By: #### U HCG #### [facility] (DEFAULT) [address] [place] [address] Urine Potassium 23.1 mmol/L Normal [place] [facility] Comment on above: Order Comment: The r eference range has not been established for random urine specimens. The test result should be integrated into the clinical context for interpretation. Performed By: #### U HCG #### [facility] (DEFAULT) [address] [place] [address]663 OSMOLALITY, URINEon 09-20-20 23 Osmolality, Urine 264 mOsm/kg Low 300-900 [facility] Comment on above: Performed By: #### U HCG #### [facility] (DEFAULT) [address] [place] [address] 27518 SEDIMENTATION RATE, AUTOMATE Don 09-20-2023 ESR Westergren 134 mm/hr High <30 [facility] Comment on above: Performed By: #### E SR #### [facility] (DEFAULT) [address] [place] [address] 15988 T4 FREEon 09-20-2023 Free T4 [Mass/Vol] 1.17 ng/dL Normal 0.89-1.76 [facility] Comment on above: Performed By: #### V ANCTR #### [facility] (DEFAULT) [address] [place] [address]1276 TSH W/FT4 REFLEXon 3 TSH 6.456 uIU/mL High 0.550-4.780 [facility] Comment on above: Performed By: #### B LDCULT #### [facility] (DEFAULT) [address] [place] [address] 76752 VANCOMYCIN LEVEL, TROUGH (OK E DRUG LEVEL)on 09-20-2023 Vancomycin, Trough 25.8 mcg/mL Critically high Therap eutic Range: 10.0-20.0 mcg/mL [facility] Comment on above: Order Comment: Pleas e draw level at specified interval PRIOR to next dose. Performed By: #### V ANCTR #### [facility] (DEFAULT) [address] [place] [address] BLOOD CULTUREon 09-19-2023 Bacteria identified Cx Nom (Unsp spec) NO GROWTH DAY 5 OF 5 Normal [facility] Comment on above: Order Comment: 2 [...] bottle. Performed By: #### U HCG #### [facility] (DEFAULT) [address] [place] [address] 23603 C REACTIVE PROTEINon 023 CRP [Mass/Vol] 137.95 mg/L High <10.00 [facility] Comment on above: Performed By: #### B LDCULT #### [facility] (DEFAULT) [address] [address] CALCIUMon 09-19-2023 Calcium [Mass/Vol] 8.4 mg/dL Low 8.6-10.5 [facility] Comment on above: Performed By: #### B LDCULT #### [facility] (DEFAULT) [address] [address] CBC AND ELECTRONIC DIFFon Abs Baso Auto < Normal 0.00-0.15 [facility] Comment on above: Performed By: #### V ANCTR #### [facility] (DEFAULT) [address] [place] [address] 62909 Basophils/100 WBC (Bld) 0.3 % Normal [facility] Comment on above: Performed By: #### V ANCTR #### [facility] (DEFAULT) [address] [address] DIFF STATUS Electronic Differential Normal [facility] Comment on above: Performed By: #### V ANCTR #### [facility] (DEFAULT) [address] [place] [address]111 Eosinophils (Bld) [#/Vol] 0.11 10*3/uL Normal 0.00-0.42 [facility] Comment on above: Performed By: #### V ANCTR #### [facility] (DEFAULT) [address] [address] Eosinophils/100 WBC (Bld) 1.4 % Normal [facility] Comment on above: Performed By: #### V ANCTR #### [facility] (DEFAULT) [address] [address] Hematocrit (Bld) [Volume fraction] 23.9 % Low 34.9-44.3 [facility] [facility] Comment on above: Performed By: #### V ANCTR #### U [facility] (DEFAULT) [address] [address] Hemoglobin (Bld) [Mass/Vol] 7.5 g/dL Low 11.4-15.2 [facility] Comment on above: Performed By: #### V ANCTR #### [facility] (DEFAULT) [address] [address] Immature Grans % 1.7 % Normal [facility] Comment on above: Performed By: #### V ANCTR #### [facility] (DEFAULT) [address] [address] Immature Grans Absolute 0.13 K/uL High <=0.08 O [facility] Comment on above: Performed By: #### V ANCTR #### [facility] (DEFAULT) [address] [address] Lymphocytes (Bld) [#/Vol] 1.37 10*3/uL Normal 1.16-3.51 [facility] Comment on above: Performed By: #### V ANCTR #### [facility] (DEFAULT) [address] [address] Lymphocytes/100 WBC (Bld) 17.7 % Normal [facility] Comment on above: Performed By: #### V ANCTR #### U [facility] (DEFAULT) [address] [place] [address] MCV (RBC) [Entitic vol] 88.5 fL Normal 79.6-97.7 [facility] Comment on above: Performed By: #### V ANCTR #### U [facility] (DEFAULT) [address] [place] [address] Mean Cell Hgb 27.8 pg Normal 25.9-33.9 [facility] Comment on above: Performed By: #### V ANCTR #### U [facility] (DEFAULT) [address] [place] [address] Mean Cell Hgb Conc 31.4 g/dL Normal 31.4-35.9 [facility] Comment on above: Performed By: #### V ANCTR #### [facility] (DEFAULT) [address] [place] [address] Monocytes (Bld) [#/Vol] 0.77 10*3/uL Normal 0.22-0.87 [facility] Comment on above: Performed By: #### V ANCTR #### [facility] (DEFAULT) [address] [address] Monocytes/100 WBC (Bld) 9.9 % Normal [facility] Comment on above: Performed By: #### V ANCTR #### [facility] (DEFAULT) [address] [place] [address] Nucleated RBC 0.0 /100 WBC Normal <=0.2 [facility] Comment on above: Performed By: #### V ANCTR #### U [facility] (DEFAULT) [address] [place] [address] Platelet mean volume (Bld) [Entitic vol] 10.0 fL Normal 8.5-12.2 [facility] Comment on above: Performed By: #### V ANCTR #### U [facility] (DEFAULT) [address] [place] [address] Platelets (Bld) [#/Vol] 627 10*3/uL High 150-393 [facility] Comment on above: Performed By: #### V ANCTR #### [facility] (DEFAULT) [address] [address] RBC (Bld) [#/Vol] 2.70 10*6/uL Low 3.91-5.04 [facility] Comment on above: Performed By: #### V ANCTR #### U [facility] (DEFAULT) [address] [address] RBC Distribution 15.6 % High 10.8-14.9 [facility] Comment on above: Performed By: #### V ANCTR #### [facility] (DEFAULT) [address] [address] Segs + Bands Auto 69.0 % Normal [facility] Comment on above: Performed By: #### V ANCTR #### [facility] (DEFAULT) [address] [address] Segs + Bands,Absolute Auto 5.34 K/uL Normal 1.64-7.28 [facility] Comment on above: Performed By: #### V ANCTR #### [facility] (DEFAULT) [address] [place] [address] WBC (Bld) [#/Vol] 7.74 10*3/uL Normal 3.99-11.19 [facility] Comment on above: Performed By: #### V ANCTR #### [facility] (DEFAULT) [address] [address] CBC,PLATELETSon 09-19-2023 Hematocrit (Bld) [Volume fraction] 27.2 % Low 34.9-44.3 [facility] Comment on above: Performed By: #### C HM7, MGO #### U [facility] (DEFAULT) [address] [address] Hemoglobin (Bld) [Mass/Vol] 8.9 g/dL Low 11.4-15.2 [facility] Comment on above: Performed By: #### C HM7, MGO #### U [facility] (DEFAULT) [address] [place] [address] MCV (RBC) [Entitic vol] 88.0 fL Normal 79.6-97.7 [facility] Comment on above: Performed By: #### C HM7, MGO #### [facility] (DEFAULT) [address] [place] [address] Mean Cell Hgb 28.8 pg Normal 25.9-33.9 [facility] Comment on above: Performed By: #### C HM7, MGO #### U [facility] (DEFAULT) [address] [place] [address] Mean Cell Hgb Conc 32.7 g/dL Normal 31.4-35.9 [facility] Comment on above: Performed By: #### C HM7, MGO #### [facility] (DEFAULT) [address] [place] [address] Platelet mean volume (Bld) [Entitic vol] 10.5 fL Normal 8.5-12.2 [facility] Comment on above: Performed By: #### C HM7, MGO #### U [facility] (DEFAULT) [address] [place] [address] Platelets (Bld) [#/Vol] 671 10*3/uL High 150-393 [facility] Comment on above: Performed By: #### C HM7, MGO #### U [facility] (DEFAULT) [address] [place] [address] RBC (Bld) [#/Vol] 3.09 10*6/uL Low 3.91-5.04 [facility] Comment on above: Performed By: #### C HM7, MGO #### U [facility] (DEFAULT) [address] [place] [address] RBC Distribution 15.9 % High 10.8-14.9 [facility] Comment on above: Performed By: #### C HM7, MGO #### U [facility] (DEFAULT) [address] [place] [address] WBC (Bld) [#/Vol] 9.62 10*3/uL Normal 3.99-11.19 [facility] Comment on above: Performed By: #### C HM7, MGO #### U [facility] (DEFAULT) [address] [place] [address] CHEM 7 (LYTES,BUN,CREA,GLUC) on 09-19-2023 Anion gap [Moles/Vol] 17 mmol/L Normal 7-17 [facility] Comment on above: Performed By: #### C HM7, MGO #### [facility] (DEFAULT) [address] [place] [address] Chloride [Moles/Vol] 90 mmol/L Low 98-108 [facility] Comment on above: Performed By: #### C HM7, MGO #### [facility] (DEFAULT) [address] [place] [address] CO2 [Moles/Vol] 24 mmol/L Normal 21-31 [facility] Comment on above: Performed By: #### C HM7, MGO #### U [facility] (DEFAULT) [address] [place] [address] Creatinine [Mass/Vol] 0.66 mg/dL Normal 0.50-1.20 [facility] Comment on above: Performed By: #### C HM7, MGO #### U [facility] (DEFAULT) [address] [place] [address] eGFR, CKD-EPI, Female > Normal >=60 [facility] Comment on above: Result Comment: Repo rted eGFR is based on the CKD-EPI 2020 equation using creatinine, age, and sex. Performed By: #### C HM7, MGO #### [facility] (DEFAULT) [address] [place] [address] Glucose [Mass/Vol] 99 mg/dL Normal 70-99 [facility] Comment on above: Performed By: #### C HM7, MGO #### [facility] (DEFAULT) [address] [place] [address] Osmolality [Osmolality] 268 mosm/kg Low 278-305 [facility] Comment on above: Performed By: #### C HM7, MGO #### [facility] (DEFAULT) [address] [place] [address] Potassium [Moles/Vol] 5.3 mmol/L High 3.5-5.0 [facility] Comment on above: Result Comment: Slig htly hemolyzed Performed By: #### C HM7, MGO #### [facility] (DEFAULT) [address] [place] [address] Sodium [Moles/Vol] 126 mmol/L Low 135-145 [facility] Comment on above: Performed By: #### C HM7, MGO #### [facility] (DEFAULT) [address] [place] [address] Urea nitrogen [Mass/Vol] 11 mg/dL Normal 7-25 [facility] Comment on above: Performed By: #### Martir HM7, MGO #### [facility] (DEFAULT) [address] [place] [address] Urea nitrogen/Creatinine [Mass ratio] 17 mg/mg Normal [facility] Comment on above: Performed By: #### Martir HM7, MGO #### [facility] (DEFAULT) [address] [place] [address] Anion gap [Moles/Vol] 15 mmol/L Normal 7-17 [facility] Comment on above: Performed By: #### B LDCULT #### U [facility] (DEFAULT) [address] [place] [address] Chloride [Moles/Vol] 94 mmol/L Low 98-108 [facility] Comment on above: Performed By: #### B LDCULT #### [facility] (DEFAULT) [address] [place] [address] CO2 [Moles/Vol] 27 mmol/L Normal 21-31 [facility] Comment on above: Performed By: #### B LDCULT #### [facility] (DEFAULT) [address] [place] [address] Creatinine [Mass/Vol] 0.61 mg/dL Normal 0.50-1.20 [facility] Comment on above: Performed By: #### B LDCULT #### [facility] (DEFAULT) [address] [place] [address] eGFR, CKD-EPI, Female > Normal >=60 [facility] Comment on above: Result Comment: Repo rted eGFR is based on the CKD-EPI 2020 equation using creatinine, age, and sex. Performed By: #### B LDCULT #### [facility] (DEFAULT) [address] [place] [address] Glucose [Mass/Vol] 116 mg/dL High 70-99 [facility] Comment on above: Performed By: #### B LDCULT #### [facility] (DEFAULT) [address] [place] [address] Osmolality [Osmolality] 277 mosm/kg Low 278-305 [facility] Comment on above: Performed By: #### B LDCULT #### [facility] (DEFAULT) [address] [place] [address] Potassium [Moles/Vol] 4.6 mmol/L Normal 3.5-5.0 [facility] Comment on above: Performed By: #### B LDCULT #### [facility] (DEFAULT) [address] [place] [address] Sodium [Moles/Vol] 131 mmol/L Low 135-145 [facility] Comment on above: Performed By: #### B LDCULT #### [facility] (DEFAULT) [address] [place] [address] Urea nitrogen [Mass/Vol] 9 mg/dL Normal 7-25 [facility] Comment on above: Performed By: #### B LDCULT #### [facility] (DEFAULT) [address] [place] [address] Urea nitrogen/Creatinine [Mass ratio] 15 mg/mg Normal [facility] Comment on above: Performed By: #### B LDCULT #### [facility] (DEFAULT) [address] [place] [address] HEPATIC FUNCTION PANELon -2022 Albumin [Mass/Vol] 2.5 g/dL Low 3.5-5.0 [facility] Comment on above: Performed By: #### B LDCULT #### [facility] (DEFAULT) [address] [place] [address]697 ALP [Catalytic activity/Vol] 152 U/L High 32-126 [facility] Comment on above: Performed By: #### B LDCULT #### [facility] (DEFAULT) [address] [place] [address] 21346 ALT [Catalytic activity/Vol] 16 U/L Normal 9-48 [facility] Comment on above: Performed By: #### B LDCULT #### [facility] (DEFAULT) [address] [place] [address]27 AST [Catalytic activity/Vol] 25 U/L Normal 10-39 [facility] Comment on above: Performed By: #### B LDCULT #### [facility] (DEFAULT) [address] [place] [address] Bilirubin [Mass/Vol] 0.4 mg/dL Normal <1.5 [facility] Comment on above: Performed By: #### B LDCULT #### [facility] (DEFAULT) [address] [place] [address] Bilirubin.indirect [Mass/Vol] 0.1 mg/dL Normal <0.3 [facility] Comment on above: Performed By: #### B LDCULT #### [facility] (DEFAULT) [address] [place] [address]65 Protein [Mass/Vol] 6.2 g/dL Low 6.4-8.3 [facility] Comment on above: Performed By: #### B LDCULT #### [facility] (DEFAULT) [address] [place] [address] HEPATITIS BATTERY, CHRONICon 09-19-2023 Hep B Core Ab,Total (IgG+IgM) Negative Normal Negative [facility] Comment on above: Performed By: #### C HM7, MGO #### U [facility] (DEFAULT) [address] [place] [address]881 Hep B Surface Ab Negative Normal Negative [facility] Comment on above: Performed By: #### C HM7, MGO #### U [facility] (DEFAULT) [address] [place] [address]773 Hepatitis B Surface Ag Negative Normal Negative [facility] Comment on above: Performed By: #### C HM7, MGO #### [facility] (DEFAULT) [address] [place] [address] Hepatitis C Antibody Negative Normal Negative [facility] Comment on above: Performed By: #### C HM7, MGO #### [facility] (DEFAULT) [address] [place] [address] 79883 IMMUNOGLOBULINS IGG IGA IGMo n 09-19-2023 IgA [Mass/Vol] 246 mg/dL Normal 66-433 [facility] Comment on above: Performed By: #### B LDCULT #### [facility] (DEFAULT) [address] [place] [address] 39989 IgG [Mass/Vol] 1357 mg/dL Normal 600-1714 [facility] Comment on above: Performed By: #### B LDCULT #### [facility] (DEFAULT) [address] [place] [address] 6[address]00 IgM [Mass/Vol] 102 mg/dL Normal 45-281 [facility] Comment on above: Performed By: #### B LDCULT #### [facility] (DEFAULT) [address] [place] [address] MAGNESIUMon 09-19-2023 Magnesium [Mass/Vol] 2.1 mg/dL Normal 1.6-2.6 [facility] Comment on above: Result Comment: Slig htly hemolyzed Performed By: #### C HM7, MGO #### [facility] (DEFAULT) [address] [place] [address] MRI SPINE CERVICAL WITH AND WITHOUT CONTRASTon 09-19-2023 MRI SPINE CERVICAL WITH AND WITHOUT CONTRAST EXAM: MRI SPINE CERVICAL WITH AND WITHOUT CONTRAST, MRI SPINE THORACIC WITH AND WITHOUT CONTRAST, MRI SPINE LUMBAR WITH AND WITHOUT CONTRAST, 09/19/2023 06:27 AM (accession [id number]), 09/19/2023 06:29 AM (accession [id number]), 09/19/2023 06:28 AM (accession [id number]) COMPARISON: Recent outside cervical and thoracic CT [...] thoracic osteomyelitis (more content not included)... Normal [facility] MRI SPINE LUMBAR WITH AND WI THOUT CONTRASTon 09-19-2023 MRI SPINE LUMBAR WITH AND WITHOUT CONTRAST EXAM: MRI SPINE CERVICAL WITH AND WITHOUT CONTRAST, MRI SPINE THORACIC WITH AND WITHOUT CONTRAST, MRI SPINE LUMBAR WITH AND WITHOUT CONTRAST, 09/19/2023 06:27 AM (accession [id number]), 09/19/2023 06:29 AM (accession [id number]), 09/19/2023 06:28 AM (accession [id number]) COMPARISON: Recent outside cervical and thoracic CT [...] thoracic osteomyelitis (more content not included)... Normal [facility] MRI SPINE THORACIC WITH AND WITHOUT CONTRASTon 09-19-2023 MRI SPINE THORACIC WITH AND WITHOUT CONTRAST EXAM: MRI SPINE CERVICAL WITH AND WITHOUT CONTRAST, MRI SPINE THORACIC WITH AND WITHOUT CONTRAST, MRI SPINE LUMBAR WITH AND WITHOUT CONTRAST, 09/19/2023 06:27 AM (accession [id number]), 09/19/2023 06:29 AM (accession [id number]), 09/19/2023 06:28 AM (accession [id number]) COMPARISON: Recent outside cervical and thoracic CT [...] thoracic osteomyelitis (more content not included)... Normal [facility] PHOSPHATE, INORGANICon 09-19 Phosphorous 5.2 mg/dL High 2.2-4.6 [facility] Comment on above: Result Comment: Slig htly hemolyzed Performed By: #### C HM7, MGO #### U [facility] (DEFAULT) [address] [place] [address] PT,INR,PTTon 09-19-2023 aPTT Coag (Bld) [Time] 36.5 s High 24.0-34.3 [facility] Comment on above: Performed By: #### V ANCTR #### [facility] (DEFAULT) [address] [place] [address] INR Coag (PPP) [Relative time] 1.3 {INR} High 0.9-1.1 [facility] Comment on above: Performed By: #### V ANCTR #### [facility] (DEFAULT) [address] [place] [address]77 PT Coag (PPP) [Time] 15.6 s High 11.9-14.2 [facility] Comment on above: Performed By: #### V ANCTR #### [facility] (DEFAULT) [address] [place] [address] Social Work Daily Noteon Social Work Daily Note [facility] [place] [facility] Manager Ems Patient: GEOVANNY MEJÍA. : 1970 [place], [place] [address] Location: [phone] Unit #: [id number] Social Work Daily Note Jacqueline Edwards INSULATION CUPOLA CHARGER, ELECTROLYTIC DE SCALER Service Date: 09/19/23 MANOLO Daily Note - * Psychosocial Assessment [...] rehab. pt is needing to transfer her [facility] medicaid dual plan. SW got a copy of pts card, pt was unable to move much and couldnt sit up, she needed SW assistance to get her insurance card out of her wallet. Nurse LENY Hickey called with pt on Friday to transfer the Medicare portion. The Medicaid portion needs cancelled and re-submitted for [place] Medicaid for pts county she will be living in. SW made contact with [facility] for assistance and to re-submit pts medicaid vilma. Pt would like a facility near her cousin ursula's house. There are looking at [facility] in [place], and [facility]. SW made contact with [facility] and they are not in network with [facility]. [facility] is in Network. SW follow up with pts cousin via phone as she would like her to help with finding a usp. Per Ursula there is another facility near her [facility]. SW made contact with [facility], they are in network with [facility], Per there admissions person Emmanuel they would be willing to bring pt in with a pending Medicaid number, per Emmanuel both Medicare and Medicaid would need transfered. Referral sent to [facility] for review. Marisol from [facility] to meet with pt. SW to also meet back to assist with canceling [place] Medicaid if Marisol has not been able to assist pt. Market Development Analyst: Jacqueline Edwards, INSULATION CUPOLA CHARGER, ELECTROLYTIC DE SCALER Day 2 Note: 09/15/23 SW met back with pt, pt was asleep but easily aroused. SW explained to pt that we needed to terminate her [place] Medicaid before submitting an application for [place] Medicaid and this needed to be initiated prior to her Dcing to a SNF. SW called [facility] and had to leave a requesting that they call pt back to so that pt could terminate her [place] Medicaid there and give her new address and county. Market Development Analyst: Jacqueline Edwards LSW, MSW Day 3 Note: 09/16/23 Pt transfer pending for another hospital. Referral was sent to two SNFS, [facility] was able to accept, [facility] was reviewing. Both pt and pt cousin Ursula aware of possible transfer out, but know SNF is still the back up plan, they can also follow back when pt Dcs from other setting and still requires a skilled stay. [facility] initiated a Medicaid application for pt. [place] Medicaid Application/pending number forward to [facility] if needed for transfer out. Pts cousin Ursula shared with that she heard that pt may have a history of substance abuse and this could be contributing to her current condition. SW unsure of this and encouraged her to speak with physician about this when she is next here visiting with pt. Market Development Analyst: Jacqueline Edwards LSW, MSW Day 4 Note: 09/19/23 Pt was transfered to [facility], residential referrals updated. MANOLO signing off. Market Development Analyst: Jacqueline Edwards LSW, MSW - * Requested Intvs/Referrals * Software Sales Representative Referrals: SNF/LTAC Placement Market Development Analyst I Referrals: Financial Issues/Medicaid Applications - * HEALTHCARE DECISIONS * Living Will: Unknown Durable Power of Bottle Tester for Health Care: Unknown State of [place] DNR Comfort Care: Unknown [place] DNR Comfort Care Arrest: Unknown - Home Health/IV Infusion/Wound Vac Home Health Referral Indicated: Yes Home Health List Provided: Yes Indication for Home Health: Wound Care, Other Patient's Response: Yes Home Health Agencies: [facility] Patient given options to view quality scores of facility?: No Entered by: MARY Rodriguez MSW on 09/19/231106 Report Signed by: LORNA Ovalle on 09/19/231107 < > Report Signed by: on Normal [facility] Albumin [Mass/volume] in Ser um or PlasmaOrdered By: Troy Garber on 09-18-2023 Albumin [Mass/Vol] 2.5 g/dL Low 3.5-5.0 [facility] Basophils Auto (Bld) [#/Vol] Ordered By: Troy Garber on 09-18-2023 Basophils (Bld) [#/Vol] 100 /cmm 0-200 [facility] [place] Basophils/100 WBC Auto (Bld) Ordered By: Troy Garber on 09-18-2023 Basophils/100 WBC (Bld) 0.7 % 0-2 [facility] [place] Blood Cultureon 09-18-2023 Bacteria identified Cx Nom (Bld) No growth after 5 days. Normal [facility] Comment on above: Performed By: #### M 110.0050 #### Main Laboratory ([facility]) [address] [place] [address] Drew Granger MD Performed By: #### L 100.0050 #### [facility] ([facility]) [address] [place] [address] Drew Granger MD Blood anion gapOrdered By: Martir Garber on 09-18-2023 Anion gap (Bld) [Moles/Vol] 6 mmol/L 4-12 [facility] Blood coagulation panelOrder ed By: Troy Garber on 09-18-2023 Blood coagulation panel 100 /cmm 0-500 [facility] [place] Blood hematocrit (volume fra ction)Ordered By: Troy Garber on 09-18-2023 Hematocrit (Bld) [Volume fraction] 24.2 % Low 35.0-44.0 [facility] Blood hemoglobin measurement (mass/volume)Ordered By: Troy Garber on 09-18-2023 Hemoglobin (Bld) [Mass/Vol] 8.2 g/dL Low 12.0-15.0 [facility] CBC with Differentialon 08-25 Abs Baso Count 100 /cmm Normal 0-200 [facility] Comment on above: Performed By: #### M 140.0200 #### Main Laboratory ([facility]) [address] [place] [address] Drew Granger MD Abs Eos Count 100 /cmm Normal 0-500 [facility] Comment on above: Performed By: #### M 140.0200 #### Main Laboratory ([facility]) [address] [place], [place] [address] Drew Granger MD Abs Lymph Count 1100 /cmm Normal 5941-0589 [facility] Comment on above: Performed By: #### M 140.0200 #### Main Laboratory ([facility]) [address] [place], [facility] Drew Granger MD Abs [place] Count 600 /cmm Normal 0-800 [facility] Comment on above: Performed By: #### M 140.0200 #### Main Laboratory ([facility]) [address] [place], [place] [address] Drew Granger MD Abs Neut Count 7600 /cmm Normal 3142-2976 [facility] Comment on above: Performed By: #### M 140.0200 #### Main Laboratory ([facility]) [address] [place], [place] [address] Drew Granger MD Basophils/100 WBC (Bld) 0.7 % Normal 0-2 [facility] [place] Comment on above: Performed By: #### M 140.0200 #### Main Laboratory ([facility]) [address] [place], [place] [address] Drew Granger MD EOS-Auto Diff 0.8 % Normal 0-6 [facility] Comment on above: Performed By: #### M 140.0200 #### Main Laboratory ([facility]) [address] [place], [place] [address] Drew Granger MD Erythrocyte distribution width (RBC) [Ratio] 16.1 % High 12.0-16.0 [facility] Comment on above: Performed By: #### M 140.0200 #### Main Laboratory ([facility]) [address] [place], [place] [address] Drew Granger MD Hematocrit (Bld) [Volume fraction] 24.2 % Low 35.0-44.0 [facility] Comment on above: Performed By: #### M 140.0200 #### Main Laboratory ([facility]) [address] [place], [place] [address] Drew Granger MD Hemoglobin (Bld) [Mass/Vol] 8.2 g/dL Low 12.0-15.0 [facility] Comment on above: Performed By: #### M 140.0200 #### Main Laboratory ([facility]) [address] [place], [place] [address] Drew Granger MD Lymphocytes/100 WBC (Bld) 11.7 % Low 15-45 [facility] Comment on above: Performed By: #### M 140.0200 #### Main Laboratory ([facility]) [address], [place] [address] Drew Granger MD MCH (RBC) [Entitic mass] 29.1 pg Normal 27.5-33.0 [facility] Comment on above: Performed By: #### M 140.0200 #### Main Laboratory ([facility]) [address], [place] [address] Drew Granger MD MCHC (RBC) [Mass/Vol] 33.9 g/dL Normal 33.0-36.0 [facility] Comment on above: Performed By: #### M 140.0200 #### Main Laboratory ([facility]) [address] [place], [facility] Drew Granger MD MCV 85.6 [place] Normal 80-97 [facility] Comment on above: Performed By: #### M 140.0200 #### Main Laboratory ([facility]) [address] [place], [facility] Drew Granger MD [place]- Auto Diff 6.7 % Normal 2-10 [facility] Comment on above: Performed By: #### M 140.0200 #### Main Laboratory ([facility]) [address] [place] [address] Drew Granger MD Neut-Auto Diff 80.1 % High 40-70 [facility] Comment on above: Performed By: #### M 140.0200 #### Main Laboratory ([facility]) [address] [place] [address] Drew Granger MD NRBC-Auto 0.0 /100 WBC Normal <1 [facility] Comment on above: Performed By: #### M 140.0200 #### Main Laboratory ([facility]) [address] [place] [address] Drew Granger MD Platelet Count 669 th/cmm High 150-400 [facility] Comment on above: Performed By: #### M 140.0200 #### Main Laboratory ([facility]) [address] [place] [address] Drew Granger MD RBC 2.82 mil/cmm Low 4.00-5.10 [facility] Comment on above: Performed By: #### M 140.0200 #### Main Laboratory ([facility]) [address] [place] [address] Drew Granger MD WBC 9.5 th/cmm Normal 4.4-10.5 [facility] Comment on above: Performed By: #### M 140.0200 #### Main Laboratory ([facility]) [address] [place] [address] Drew Granger MD Abs Baso Count 200 /cmm Normal 0-200 [facility] Comment on above: Performed By: #### L 600.6150 #### Main Laboratory ([facility]) [address] [place] [address] Drew Granger MD Abs Eos Count 100 /cmm Normal 0-500 [facility] Comment on above: Performed By: #### L 600.6150 #### Main Laboratory ([facility]) [address] [place], [facility] Drew Granger MD Abs Lymph Count 1300 /cmm Normal 7929-5964 [facility] Comment on above: Performed By: #### L 600.6150 #### Main Laboratory ([facility]) [address] [place], [facility] Drew Granger MD Abs [place] Count 700 /cmm Normal 0-800 [facility] Comment on above: Performed By: #### L 600.6150 #### Main Laboratory ([facility]) [address] [place], [facility] Drew Granger MD Abs Neut Count 6800 /cmm Normal 1132-8623 [facility] Comment on above: Performed By: #### L 600.6150 #### Main Laboratory ([facility]) [address] [place], [place] [address] Drew Granger MD Basophils/100 WBC (Bld) 2.1 % High 0-2 [facility] [place] Comment on above: Performed By: #### L 600.6150 #### Main Laboratory ([facility]) [address] [place], [place] [address] Drew Granger MD EOS-Auto Diff 1.1 % Normal 0-6 [facility] Comment on above: Performed By: #### L 600.6150 #### Main Laboratory ([facility]) [address] [place], [facility] Drew Granger MD Erythrocyte distribution width (RBC) [Ratio] 16.1 % High 12.0-16.0 [facility] Comment on above: Performed By: #### L 600.6150 #### Main Laboratory ([facility]) [address] [place], [facility] Drew Granger MD Hematocrit (Bld) [Volume fraction] 23.5 % Low 35.0-44.0 [facility] Comment on above: Performed By: #### L 600.6150 #### Main Laboratory ([facility]) [address] [place], [place] [address] Drew Granger MD Hemoglobin (Bld) [Mass/Vol] 7.8 g/dL Low 12.0-15.0 [facility] Comment on above: Performed By: #### L 600.6150 #### Main Laboratory ([facility]) [address] [place], [place] [address] Drew Granger MD Lymphocytes/100 WBC (Bld) 14.8 % Low 15-45 [facility] Comment on above: Performed By: #### L 600.6150 #### Main Laboratory ([facility]) [address] [place], [place] [address] Drew Granger MD MCH (RBC) [Entitic mass] 28.6 pg Normal 27.5-33.0 [facility] Comment on above: Performed By: #### L 600.6150 #### Main Laboratory ([facility]) [address] [place], [place] [address] Drew Granger MD MCHC (RBC) [Mass/Vol] 33.4 g/dL Normal 33.0-36.0 [facility] Comment on above: Performed By: #### L 600.6150 #### Main Laboratory ([facility]) [address] [place] [address] Drew Granger MD MCV 85.6 [place] Normal 80-97 [facility] Comment on above: Performed By: #### L 600.6150 #### Main Laboratory ([facility]) [address] [place] [address] Drew Granger MD [place]- Auto Diff 7.4 % Normal 2-10 [facility] Comment on above: Performed By: #### L 600.6150 #### Main Laboratory ([facility]) [address] [place] [address] Drew Granger MD Neut-Auto Diff 74.6 % High 40-70 [facility] Comment on above: Performed By: #### L 600.6150 #### Main Laboratory ([facility]) [address] [place] [address] Drew Granger MD NRBC-Auto 0.0 /100 WBC Normal <1 [facility] Comment on above: Performed By: #### L 600.6150 #### Main Laboratory ([facility]) [address] [place] [address] Drew Granger MD Platelet Count 594 th/cmm High 150-400 [facility] Comment on above: Performed By: #### L 600.6150 #### Main Laboratory ([facility]) [address] [place] [address] Drew Granger MD RBC 2.74 mil/cmm Low 4.00-5.10 [facility] Comment on above: Performed By: #### L 600.6150 #### Main Laboratory ([facility]) [address] [place] [address] Drew Granger MD WBC 9.1 th/cmm Normal 4.4-10.5 [facility] Comment on above: Performed By: #### L 600.6150 #### Main Laboratory ([facility]) [address] [place] [address] Drew Granger MD Case Management Daily Noteon 09-18-2023 Case Management Daily Note [facility] Case Management Patient: GEOVANNY MEJÍA [address] : 1970 [place] [address] Location: [facility] [phone] Unit #: [id number] Case Management Daily Note Kait Still Service Date: 09/18/23 Case Mgmt Daily Note - Plan of Care Controls Technician Agrees with Attending and Consult Plan: Yes [...] patient in the room. Patient is from [place]. She is up here to visit her sister. Patient reporting she is normally independent. Does not have a PCP. Patient would like to use [facility] for meds. Planning to have her cousin pick her up at d/c. Contact is her cousin Ursula. Denies having LW/dPOA. Controls Technician: Evelyne Pena, RN Day 2 Comment: 09/09 Met with patient in the room. Patient asking to get up and move around. PT/OT to al. S/p L ABD drain placement. Patient agreeable to [facility] for drain mgmt if needed. Reporting she will be going to [facility] at d/c to stay with her cousin Ursula. CM spoke with patients cousin Ursula via telephone who reports she is ok with [facility] coming to her home if patient would go there at d/c. Ursula reporting patient was homeless in [place] and recently move to [place] with her sister Monique. Controls Technician: Evelyne Pena, RN Day 3 Comment: 09/10 D/c needs pending medical course. Jr present. Dilaudid MATERIALS AND PROCESSES MANAGER. PT/OT. ID c/s. Therapy recs for IPR vs OP PT. Will follow to assist with d/c needs. Controls Technician: Evelyne Pnea, RN Day 4 Comment: 09/11 Met with patient in the room who is planning to d/c to her cousin Gena lutz in [place], [place]. Patient is agreeable to [facility]. LENY spoke with rUsula who is agreeable for patient to come there at d/c. Referral sent to [facility]. Await approval. 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 ABD drain. NPO. ID c/s. PT/OT. Controls Technician: Evelyne Pena, RN Day 5 Comment: 09/12 Met with patient in the room to discuss d/c plan. Patient unable to move b/l LE. No sensation to RLE. Does have sesation to LLE. PT/OT recommending SNF, patient agreeable. She would like to go somewhere near her cousin Ursula in [place], [place]. CM assisted patient with changing her address with her [facility] insurance to an [place] address. SW c/s for SNF placement and GWEN assist with [place]. Patient will need a precert. MATERIALS AND PROCESSES MANAGER continues. If patient would improve with mobility, she has been accepted to [facility]. CM spoke with Ursula via telephone to update. Controls Technician: Evelyne Pena, RN Day 6 Comment: 09/15- POD 2. CM spoke with patient at bedside. VSS. WBC 19.9. PT/OT rec SNF. Pt verbalized agreeable for SNF and would like [facility]. SW c/s AND reported that [facility] is not in network with pt insurance. MANOLO spoke w/ pt AND Lamin is now reviewing patient. Pt is awaiting the start of [place] [employer] application with [employer] as current dual insurance is out of state. Pt will also require a precert when medically ready. CM following. Controls Technician: Dina Abebe Day 8 Comment: 09/15- POD 2. CM spoke with patient at bedside. VSS. WBC 19.9. PT/OT rec SNF. Pt verbalized agreeable for SNF and would like [facility]. SW c/s. Pt will require precert when [...] Attending noted plans to attempt transfer to [facility] AND if denied, to attempt transfer to [facility], per pt preferance. Transfer packet completed. CM following. @12:21- Nurse reported to CM that Dr Holt has declined to take pt, per [facility], AND that a message was relayed to the attending. @14:30- [employer] has assisted pt with [place] of [place] vil[place]. CM faxing documentation to [facility] AND calling now to verify if they are able to accept pt with that. If unable, CM to fax AND verify w/ [facility]. If neither hospital is able to accept, attending plans to reach out to [facility]. @15:00- CM spoke with Shelby at [facility]. [...] of network insurance. CM updated the attending. Controls Technician: Dina Abebe Day 10 Comment: 09/17- CM received perfect serve not (more content not included)... Normal [facility] Case Management General Note on 09-18-2023 Case Management General Note [facility] Case Management Patient: GEOVANNY MEJÍA [address] : 1970 [place], [place] [address] Location: [address] [place] [address] Unit #: [id number] Case Management General Note Karime Lowery RN Service Date: 09/18/23 Case Management General Note - Note Note: I was updated that patient had received a bed at [facility]. Bed 888. Accepting physician Dr. Huff. I was asked to arrange air transport. 1730: CM contacted [employer]. Updated of approx arrival 1753P. Primary nursing, attending updated. Security and AOS updated. Paperwork faxed and placed on chart. Primary nurse reports she had updated patient and family. - Letter Delivered Was Position Statement Letter Delivered?: Yes Entered by: Karime Lowery on 09/18/23 174 Report Signed by: Karime Lowery RN on 09/18/23 383 < > Co-Signed by: on Normal [facility] Eosinophils/100 WBC Auto (Bl d)Ordered By: Troy Garber on 09-18-2023 Eosinophils/100 WBC (Bld) 0.8 % 0-6 [facility] Erythrocyte distribution wid th ratioOrdered By: Troy Garber on 09-18-2023 Erythrocyte distribution width (RBC) [Ratio] 16.1 % High 12.0-16.0 [facility] Ferritinon 09-18-2023 Ferritin [Mass/Vol] 347 ng/mL High 12-263 [facility] Comment on above: Performed By: #### L 400.0410 #### Main Laboratory ([facility]) [address] [place] [address] Drew Granger MD Iron Binding and Saturationo n 09-18-2023 % Iron Saturation 7 % Low 15-50 [facility] Comment on above: Performed By: #### M 140.0200 #### Main Laboratory ([facility]) [address] [place] [address] Drew Granger MD Iron, Serum 16 mcg/dL Low 28-170 [facility] Comment on above: Performed By: #### M 140.0200 #### Main Laboratory ([facility]) [address] [place] [address] Drew Granger MD Transferrin [Mass/Vol] 152 mg/dL Low 192-382 [facility] Comment on above: Performed By: #### M 140.0200 #### Main Laboratory ([facility]) [address] [place] [address] Drew Granger MD Lymphocytes/100 WBC Auto (Bl d)Ordered By: Troy Garber on 09-18-2023 Lymphocytes/100 WBC (Bld) 11.7 % Low 15-45 [facility] MCH Auto (RBC) [Entitic mass ]Ordered By: Troy Garber on 09-18-2023 MCH (RBC) [Entitic mass] 29.1 pg 27.5-33.0 [facility] MCHC Auto (RBC) [Mass/Vol]Or dered By: Troy Garber on 09-18-2023 MCHC (RBC) [Mass/Vol] 33.9 g/dL 33.0-36.0 [facility] MCV Auto (RBC) [Entitic vol] Ordered By: Troy Garber on 09-18-2023 MCV (RBC) [Entitic vol] 85.6 CU [place] 80-97 [facility] MRI Cervical Spine w/wo Cont pedro 09-18-2023 MRI Cervical Spine w/wo Contr [facility] Radiology Department Patient: GEOVANNY MEJÍA [address] : 1970 Sex: [place] [address] Location: [phone] Unit #: [id number] Ordering Phys: Troy Garber MD Exam Date: 09/18/23 Exam: MRI MRI Cervical Spine w/wo Contr Result: See Report ADDENDUM: [id number] STUDY: MRI CERVICAL SPINE WITH AND WITHOUT [...] confirmed on 09/18/2023 14:54:36 (ET). Electronically Signed: Kawbena Yu MD at 14:21 EDT , Addendum Dictated by: Kwabena Yu MD on 09/18/23 at 1421 Transcribed by: Kwabena Yu MD on 09/18/23 at 1421 Report Signed by: Kwabena Yu MD on 09/18/23 1421 We are attempting to reach an attending provider to discuss findings. An addendum with communication details will be sent when the communication is complete. [id number] STUDY: MRI CERVICAL SPINE WITH AND WITHOUT [...] Kwabena Yu, (more content not included)... Normal [facility] Magnesiumon 09-18-2023 Magnesium [Mass/Vol] 2.2 mg/dL Normal 1.8-2.5 [facility] Comment on above: Performed By: #### M 140.0200 #### Main Laboratory ([facility]) [address] [place] [address] Drew Granger MD Monocytes Auto (Bld) [#/Vol] Ordered By: Troy Garber on 09-18-2023 Monocytes (Bld) [#/Vol] 600 /cmm 0-800 [facility] [place] Monocytes/100 WBC Auto (Bld) Ordered By: Troy Garber on 09-18-2023 Monocytes/100 WBC (Bld) 6.7 % 2-10 [facility] [place] Neutrophils/100 WBC Auto (Bl d)Ordered By: Troy Garber on 09-18-2023 Neutrophils/100 WBC (Bld) 80.1 % High 40-70 [facility] No Panel InformationOrdered By: Troy Garber on 09-18-2023 Absolute Lymphocytes (auto) 1100 /cmm 9867-1162 [facility] Absolute Neutrophils (auto) 7600 /cmm 1275-9847 [facility] Glomerular Filtration Rate Calc > 60 >60 [facility] Comment on above: AGE(years) AVERAGE G FR [...] RBC (Bld) [#/Vol] 0.0 /100 WBC <1 [facility] Platelets Auto (Bld) [#/Vol] Ordered By: Troy Garber on 09-18-2023 Platelets (Bld) [#/Vol] 669 th/cmm High 150-400 L [place] Progress Note - Hospitalisttheodore hui 09-18-2023 Progress Note - Hospitalist [facility] Medical Records Patient: GEOVANNY MEJÍA [address] : 1970 [place], [place] [address] Location: [phone] Unit #: [id number] Progress Note - Hospitalist Troy Garber MD [...] [facility] upon converting her insurance to the [place] [employer]. Currently she remains in-house awaiting a [...] prior to (more content not included)... Normal [facility] Progress Note Neurosurgeryon 09-18-2023 Progress Note Neurosurgery [facility] Medical Records Patient: GEOVANNY MEJÍA [address] : 1970 [place] [address] Location: [address] [place] [address] Unit #: [id number] Progress Note Neurosurgery Lucy Lara PA-C Service [...] diagnostic image (more content not included)... Normal [facility] RBC Auto (Bld) [#/Vol]Ordere d By: Troy Garber on 09-18-2023 RBC (Bld) [#/Vol] 2.82 mil/cmm Low 4.00-5.10 [facility] Renal Function Panelon 09-18 Albumin [Mass/Vol] 2.5 g/dL Low 3.5-5.0 [facility] Comment on above: Performed By: #### M 140.0200 #### Main Laboratory ([facility]) [address] [place] [id number] Drew Granger MD Anion gap [Moles/Vol] 6 mmol/L Normal 4-12 [facility] Comment on above: Performed By: #### M 140.0200 #### Main Laboratory ([facility]) [address] [place], [place] [address] Drew Granger MD Calcium [Mass/Vol] 8.30 mg/dL Low 8.8-10.5 [facility] Comment on above: Performed By: #### M 140.0200 #### Main Laboratory ([facility]) [address] [place] [address] Drew Granger MD Chloride [Moles/Vol] 94 mmol/L Low 101-111 [facility] Comment on above: Performed By: #### M 140.0200 #### Main Laboratory ([facility]) [address] [place] [address] Drew Granger MD CO2 [Moles/Vol] 28 mmol/L Normal 21-32 [facility] Comment on above: Performed By: #### M 140.0200 #### Main Laboratory ([facility]) [address] [place] [facility] Drew Granger MD Creatinine [Mass/Vol] 0.50 mg/dL Low 0.60-1.30 [facility] Comment on above: Performed By: #### M 140.0200 #### Main Laboratory ([facility]) [address] [place] [address] Drew Granger MD GFR Calculation > 60 Normal [facility] Comment on above: Result Comment: [employer] Of Religion dontrell Kidney Disease stages by NKDF Stage eGFR I >90 II 60-89 III 30-59 IV 15-29 V <15 or dialysis AGE(years) AVERAGE GFR 50-59 93 ml/min/1.73 square meters Note:This result is normalized to 1.73 square meter body surface area. Height and weight are not factored. Performed By: #### M 140.0200 #### Main Laboratory ([facility]) [address] [place] [address] Drew Granger MD Glucose [Mass/Vol] 113 mg/dL High 70-110 [facility] Comment on above: Performed By: #### M 140.0200 #### Main Laboratory ([facility]) [address] [place] [address] Drew Granger MD Phosphate [Mass/Vol] 4.6 mg/dL Normal 2.4-4.7 [facility] Comment on above: Performed By: #### M 140.0200 #### Main Laboratory ([facility]) [address] [place] [address] Drew Granger MD Potassium [Moles/Vol] 4.1 mmol/L Normal 3.6-5.0 [facility] Comment on above: Performed By: #### M 140.0200 #### Main Laboratory ([facility]) [address] [facility] Drew Granger MD Sodium [Moles/Vol] 128 mmol/L Low 135-145 [facility] Comment on above: Performed By: #### M 140.0200 #### Main Laboratory ([facility]) [address] [place] [address] Drew Granger MD Urea nitrogen [Mass/Vol] 8 mg/dL Normal 7-20 [facility] Comment on above: Performed By: #### M 140.0200 #### Main Laboratory ([facility]) [address] [place] [address] Drew Granger MD Reticulocyte Counton 023 Reticulocyte Count 7.01 % High 0.90-2.60 [facility] Comment on above: Performed By: #### L 600.6150 #### Main Laboratory ([facility]) [address] [place] [address] Drew Granger MD Reticulocytes/100 RBC Auto ( Bld)Ordered By: Troy Garber on 09-18-2023 Reticulocytes/100 RBC (Bld) 7.01 % High 0.90-2.60 [facility] Serum or plasma calcium tamera urement (mass/volume)Ordered By: Troy Garber on 09-18-2023 Calcium [Mass/Vol] 8.30 mg/dL Low 8.8-10.5 [facility] Serum or plasma carbon dioxi de, total measurement (moles/volume)Ordered By: Troy Garber on 09-18-2023 CO2 [Moles/Vol] 28 mmol/L 21-32 [facility] Serum or plasma chloride cici surement (moles/volume)Ordered By: Troy Garber on 09-18-2023 Chloride [Moles/Vol] 94 mmol/L Low 101-111 [facility] Serum or plasma creatinine m easurement (mass/volume)Ordered By: Troy Garber on 09-18-2023 Creatinine [Mass/Vol] 0.50 mg/dL Low 0.60-1.30 [facility] Serum or plasma ferritin cici surement (mass/volume)Ordered By: Troy Garber on 09-18-2023 Ferritin [Mass/Vol] 347 ng/mL High 12-263 [facility] Serum or plasma glucose tamera urement (mass/volume)Ordered By: Troy Garber on 09-18-2023 Glucose [Mass/Vol] 113 mg/dL High 70-110 [facility] Serum or plasma iron measure ment (mass/volume)Ordered By: Troy Garber on 09-18-2023 Iron [Mass/Vol] 16 ug/dL Low 28-170 [facility] Serum or plasma iron saturat ion measurement (mass fraction)Ordered By: Troy Garber on 09-18-2023 Iron saturation [Mass fraction] 7 % Low 15-50 [facility] Serum or plasma magnesium me asurement (mass/volume)Ordered By: Troy Garber on 09-18-2023 Magnesium [Mass/Vol] 2.2 mg/dL 1.8-2.5 [facility] Serum or plasma phosphate me asurement (mass/volume)Ordered By: Troy Garber on 09-18-2023 Phosphate [Mass/Vol] 4.6 mg/dL 2.4-4.7 [facility] Serum or plasma potassium me asurement (moles/volume)Ordered By: Troy Garber on 09-18-2023 Potassium [Moles/Vol] 4.1 mmol/L 3.6-5.0 [facility] Serum or plasma sodium measu rement (moles/volume)Ordered By: Troy Garber on 09-18-2023 Sodium [Moles/Vol] 128 mmol/L Low 135-145 [facility] Serum or plasma transferrin measurement (mass/volume)Ordered By: Troy Garber on 09-18-2023 Transferrin [Mass/Vol] 152 mg/dL Low 192-382 [facility] Serum or plasma urea nitroge n measurement (mass/volume)Ordered By: Troy Garber on 09-18-2023 Urea nitrogen [Mass/Vol] 8 mg/dL 7-20 [facility] Status Note/Updateon 023 Status Note/Update [facility] Medical Records Patient: GEOVANNY MEJÍA. : 1970 [place], [place] [address] Location: [phone] Unit #: [id number] Status Note/Update Valeriy Cantu Jr, DO Service [...] < > Report Signed by: on Normal [facility] Status Note/Update [facility] Medical Records Patient: GEOVANNY MEJÍA. : 1970 [place], [place] [address] Location: [phone] Unit #: [id number] Status Note/Update Troy Garber MD Service Dt/Tm: 09/18/231522 Note: GEOVANNY MEJAÍ is a 53 yr old F who [...] < > Report Signed by: on Normal [facility] Status Note/Update [facility] Medical Records Patient: GEOVANNY MEJÍA [address] : 1970 [place], [place] [address] Location: [facility] [phone] Unit #: [id number] Status Note/Update Alec Clemons MD Service Dt/Tm: 09/18/231509 Note: GEOVANNY MEJÍA is a 53 yr [...] 09/18/231522 < > Report Signed by: on [facility] Type and Screen(No Crossmatc h)on 09-18-2023 AB Screen (IAT) Negative [facility] Comment on above: Performed By: #### B 100.0750 ####Main Laboratory ([facility])[address] [phone] Nivar, MD ABO and Rh group Nom (Bld) Blood group O Rh(D) positive Normal [facility] Comment on above: Performed By: #### B 100.0750 ####[facility] ([facility])[address] [phone] Nivar, MD WBC Auto (Bld) [#/Vol]Ordere d By: Troy Garber on 09-18-2023 WBC (Bld) [#/Vol] 9.5 th/cmm 4.4-10.5 [facility] Wound cult/smr aer & anaon 1 Wound [...] hoxazole <=10 S Vancomycin <=0.5 S Normal [facility] Comment on above: Order Comment: Addit ional Instructions 1) Thoracic abscess Performed By: #### L 100.0050 #### Main Laboratory ([facility]) [address] [place] [address] Drew Granger MD CBC with Differentialon 08-25 Abs Baso Count 200 /cmm Normal 0-200 [facility] Comment on above: Performed By: #### L 100.0000 ####[facility] ([facility])[address] [phone] Nivar, MD Abs Eos Count 100 /cmm Normal 0-500 [facility] Comment on above: Performed By: #### L 100.0000 ####[facility] ([facility])[address], [place] [phone] Nivar, MD Abs Lymph Count 1700 /cmm Normal 4627-6162 [facility] Comment on above: Performed By: #### L 100.0000 ####[facility] ([facility])[address], [place] [phone] Nivar, MD Abs [place] Count 600 /cmm Normal 0-800 [facility] Comment on above: Performed By: #### L 100.0000 ####[facility] ([facility])[address] [phone] Nivar, MD Abs Neut Count 41576 /cmm High 6737-3075 [facility] Comment on above: Performed By: #### L 100.0000 ####Main [facility] ([facility])[address], [place] [phone] Nivar, MD Basophils/100 WBC (Bld) 1.8 % Normal 0-2 [facility] [place] Comment on above: Performed By: #### L 100.0000 ####Main Laboratory ([facility])[address], [place] [phone] Nivar, MD EOS-Auto Diff 0.6 % Normal 0-6 [facility] Comment on above: Performed By: #### L 100.0000 ####[facility] ([facility])[address], [place] [phone] Nivar, MD Erythrocyte distribution width (RBC) [Ratio] 16.1 % High 12.0-16.0 [facility] Comment on above: Performed By: #### L 100.0000 ####[facility] ([facility])[address], [place] [phone] Nivar, MD Hematocrit (Bld) [Volume fraction] 23.9 % Low 35.0-44.0 [facility] Comment on above: Performed By: #### L 100.0000 ####[facility] ([facility])[address] [place] [phone] Nivar, MD Hemoglobin (Bld) [Mass/Vol] 8.0 g/dL Low 12.0-15.0 [facility] Comment on above: Performed By: #### L 100.0000 ####[facility] ([facility])[address] [place] [phone] Nivar, MD Lymphocytes/100 WBC (Bld) 13.3 % Low 15-45 [facility] Comment on above: Performed By: #### L 100.0000 ####Main [facility] ([facility])[address] [place] [phone] Nivar, MD MCH (RBC) [Entitic mass] 29.0 pg Normal 27.5-33.0 [facility] Comment on above: Performed By: #### L 100.0000 ####Main [facility] ([facility])[address] [place] [phone] Nivar, MD MCHC (RBC) [Mass/Vol] 33.7 g/dL Normal 33.0-36.0 [facility] Comment on above: Performed By: #### L 100.0000 ####Main Laboratory ([facility])[address] [place] [phone] Nivar, MD MCV 86.1 CU [place] Normal 80-97 [facility] Comment on above: Performed By: #### L 100.0000 ####Main [facility] ([facility])[address] [place] [phone] Nivar, MD [place]- Auto Diff 5.0 % Normal 2-10 [facility] Comment on above: Performed By: #### L 100.0000 ####[facility] ([facility])[address] [place] [phone] Nivar, MD Neut-Auto Diff 79.3 % High 40-70 [facility] Comment on above: Performed By: #### L 100.0000 ####[facility] ([facility])[address] [phone] Nivar, MD NRBC-Auto 0.0 /100 WBC Normal <1 [facility] Comment on above: Performed By: #### L 100.0000 ####[facility] ([facility])[address] [phone] Nivar, MD Platelet Count 635 th/cmm High 150-400 [facility] Comment on above: Performed By: #### L 100.0000 ####[facility] ([facility])[address], [place] [phone] Nivar, MD RBC 2.77 mil/cmm Low 4.00-5.10 [facility] Comment on above: Performed By: #### L 100.0000 ####[facility] ([facility])[address] [phone] Nivar, MD WBC 13.0 th/cmm High 4.4-10.5 [facility] Comment on above: Performed By: #### L 100.0000 ####Main [facility] ([facility])[address] [phone] Nivar, MD CT Abd/Pelvis W/Contrast 741 [facility] 09-17-2023 CT Abd/Pelvis W/Contrast 92512 [facility] Radiology Department Patient: GEOVANNY MEJÍA [address] : 1970 Sex: [place] [address] Location: [phone] Unit #: [id number] Ordering Phys: Troy Garber MD Exam Date: 09/17/23 Exam: CT CT Abd/Pelvis W/Contrast [id number] Result: See Report ADDENDUM: [id number] STUDY: CT ABDOMEN AND PELVIS WITH CONTRAST [...] Anthony Guevara MD (Brooks) at 15:58 EDT Reading Location ID and State: [address] [place] [address] , Service support , Addendum Dictated by: Freddy Guevara MD on 09/17/23 at 1558 Transcribed by: Freddy Guevara on 09/17/23 at 1558 Report Signed by: Freddy Guevara MD on 09/17/23 1558 [id number] STUDY: CT ABDOMEN AND PELVIS WITH CONTRAST [...] right pleural (more content not included)... Normal [facility] CT Peritoneal Abscesson 08-25 CT Peritoneal Abscess [facility] Radiology Department Patient: GEOVANNY MEJÍA [address] : 1970 Sex: [place] [address] Location: [address] [place] [address] Unit #: [id number] Ordering Phys: Troy Garber MD Exam Date: 09/17/23 Exam: CT CT Peritoneal Abscess Result: See Report [id number] CT GUIDED FLUID COLLECTION DRAINAGE WITH PIGTAIL DRAINAGE CATHETER PLACEMENT. Indication: Reaccumulation of left retroperitoneal fluid collection. Consent: Informed, written consent was obtained from the patient, prior to procedure and following discussion of risks, benefits, alternatives and personnel. Patient oriented dose modulation technique utilized. PERFORMING PHYSICIAN: Kristin Guevara MD DATE OF PROCEDURE: 09/17/2023 CRIB PAD MAKER: NONE ESTIMATED BLOOD LOSS: Negligible COMPLICATIONS: None [...] a small skin incision was made. A 5-Haitian Yueh needle/catheter was advanced under intermittent CT guidance into the fluid collection. A J-wire passed easily. The tract was dilated with a 12 Haitian dilator. A 12 Haitian drainage catheter was then advanced over the wire into position, the [place] loop was positioned in the collection and [...] Anthony Guevara MD (Brooks) at 17:25 EDT Reading Location ID and State: [address] [place] [address] , Service support , cc: Troy Garber MD; None Dictated by: Freddy Guevara MD on 09/17/231724 Transcribed by: Freddy Guevara on 09/17/231724 Report Signed by: Ismael MEJÍA,Freddy Nielsen on 09/17/231724 Normal [facility] Case Management Daily Noteon 09-17-2023 Case Management Daily Note [facility] Case Management Patient: GEOVANNY MEJÍ[address] : 1970 [place], [place] [address] Location: [phone] Unit #: [id number] Case Management Daily Note Dina R Mis Service Date: 09/17/23 Case Mgmt Daily Note - Plan of Care Controls Technician Agrees with Attending and Consult Plan: Yes - COVID-19 Was Position Statement Letter Delivered?: Yes - Care Coordination Communication Care Coordination Communication: Spoke with patient's family via phone - Hospital Stay Days Day 1 Comment: 09/08 Met with patient in the room. Patient is from [place]. She is up here to visit her sister. Patient reporting she is normally independent. Does not have a PCP. Patient would like to use [facility] OP [facility] for meds. Planning to have her cousin pick her up at d/c. Contact is her cousin Ursula. Denies having LW/dPOA. Controls Technician: Evelyne Pena, RN Day 2 Comment: 09/09 Met with patient in the room. Patient asking to get up and move around. PT/OT to eval. S/p L ABD drain placement. Patient agreeable to [facility] for drain mgmt if needed. Reporting she will be going to [facility] at d/c to stay with her cousin Ursula. CM spoke with patients cousin Ursula via telephone who reports she is ok with [facility] coming to her home if patient would go there at d/c. Ursula reporting patient was homeless in [place] and recently move to [place] with her sister Monique. Controls Technician: Evelyne Pena, RN Day 3 Comment: 09/10 D/c needs pending medical course. Jr present. Dilaudid MATERIALS AND PROCESSES MANAGER. PT/OT. ID c/s. Therapy recs for IPR vs OP PT. Will follow to assist with d/c needs. Controls Technician: Evelyne Pena, RN Day 4 Comment: 09/11 Met with patient in the room who is planning to d/c to her cousin Gnea lutz in [place], [place]. Patient is agreeable to [facility]. CM spoke with Ursula who is agreeable for patient to come there at d/c. Referral sent to [facility]. Await approval. 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 ABD drain. NPO. ID c/s. PT/OT. Controls Technician: Evelyne Pena, RN Day 5 Comment: 09/12 Met with patient in the room to discuss d/c plan. Patient unable to move b/l LE. No sensation to RLE. Does have sesation to LLE. PT/OT recommending SNF, patient agreeable. She would like to go somewhere near her cousin Ursula in [place], [place]. CM assisted patient with changing her address with her [facility] insurance to an [place] address. MANOLO c/s for SNF placement and [facility] assist with [place]. Patient will need a precert. MATERIALS AND PROCESSES MANAGER continues. If patient would improve with mobility, she has been accepted to [facility]. LENY spoke with Ursula via telephone to update. Controls Technician: Evelyne Pnea, RN Day 6 Comment: 09/15- POD 2. CM spoke with patient at bedside. VSS. WBC 19.9. PT/OT rec SNF. Pt verbalized agreeable for SNF and would like [facility]. MANOLO c/s AND reported that [facility] is not in network with pt insurance. MANOLO spoke w/ pt AND Lamin is now reviewing patient. Pt is awaiting the start of [place] [employer] application with [facility] as current dual insurance is out of state. Pt will also require a precert when medically ready. CM following. Controls Technician: Dina Abebe Day 8 Comment: 09/15- POD 2. CM spoke with patient at bedside. VSS. WBC 19.9. PT/OT rec SNF. Pt verbalized agreeable for SNF and would like [facility]. c/s. Pt will require precert when medically [...] Attending noted plans to attempt transfer to [facility] AND if denied, to attempt transfer to [facility], per pt preferance. Transfer packet completed. CM following. @12:21- Nurse reported to CM that Dr Holt has declined to take pt, per [facility], AND that a message was relayed to the attending. @14:30- [facility] has assisted pt with [place] vil[place]. CM faxing documentation to [facility] AND calling now to verify if they are able to accept pt with that. If unable, CM to fax AND verify / [facility]. If neither hospital is able to accept, attending plans to reach out to [facility]. @15:00- CM spoke with Shelby at [facility]. [...] of network insurance. CM updated the attending. Controls Technician: Dina Abebe Day 10 Comment: 09/17- CM received perfect serve notification from pt's nurse after CM left for the day yesterday at 16:[address] Clemons, the pt has been accepted to [facility] and that the transfer cente (more content not included)... Normal [facility] Interventional Radiology Not malika 09-17-2023 Interventional Radiology Note [facility] Medical Records Patient: GEOVANNY MEJÍA [address] : 1970 [place] [address] Location: [phone] Unit #: [id number] Interventional Radiology Note Freddy Guevara MD Service [...] Signed by: Freddy Guevara MD on 09/17/231650 < > Report Signed by: on Normal [facility] Magnesiumon 09-17-2023 Magnesium [Mass/Vol] 2.2 mg/dL Normal 1.8-2.5 [facility] Comment on above: Performed By: #### L 100.0050 #### Main Laboratory ([facility]) [address] [place] [address] Drew Granger MD Progress Note - Bo hui 09-17-2023 Progress Note - Hospitalist [facility] Medical Records Patient: GEOVANNY MEJÍA. : 1970 [place] [address] Location: [phone] Unit #: [id number] Progress Note - Hospitalist Troy Garber MD Service Dt/Tm: 09/17/23 1715 Assessment/Plan Assessment/Plan (1) Intra-abdominal abscess: Status: Acute [...] the imagin (more content not included)... Normal [facility] Progress Note - Hospitalist [facility] Medical Records Patient: GEOVANNY MEJÍA [address] : 1970 [place], [place] [address] Location: [phone] Unit #: [id number] Progress Note - Hospitalist Troy Garber MD Service Dt/Tm: 09/17/23 0882 Assessment/Plan Assessment/Plan (1) Abscess in epidural space [...] with the direction to call first the [facility] for the transfer, and if that [...] Diet Texture: Regular Fluid Restrictions?: No Consult Etl Bi Developer for Oral Supplements/Nourishme nts?: No Oral Supplement 1: Ensure Supplement 1 Frequency: Once/day Oral Supplement 2: Magic Cup Supplement 2 F (more content not included)... Normal [facility] Progress Note Neurosurgeryon 09-17-2023 Progress Note Neurosurgery [facility] Medical Records Patient: GEOVANNY MEJÍA. : 1970 [place], [place] [address] Location: [phone] Unit #: [id number] Progress Note Neurosurgery Jasbir Ann PA-C Service [...] I spoke with the Ortho spine surgeon visual presentation manager and the transfer center at [facility]. I explained that the patient still [...] at risk of developing an expanded infection. Willy MEJÍA is a 53 yr old [...] 09/16/23 1335 < > Report Signed by: Alec Clemons MD on 09/17/231913 < > Normal [facility] Renal Function Panelon 09-17 Albumin [Mass/Vol] 2.4 g/dL Low 3.5-5.0 [facility] Comment on above: Performed By: #### L 100.0050 #### Main Laboratory ([facility]) [address] [place] [address] Drew Granger MD Anion gap [Moles/Vol] 7 mmol/L Normal 4-12 [facility] Comment on above: Performed By: #### L 100.0050 #### Main Laboratory ([facility]) [address] [place] [address] Drew Granger MD Calcium [Mass/Vol] 8.10 mg/dL Low 8.8-10.5 [facility] Comment on above: Performed By: #### L 100.0050 #### Main Laboratory ([facility]) [address] [place] [address] Drew Granger MD Chloride [Moles/Vol] 96 mmol/L Low 101-111 [facility] Comment on above: Performed By: #### L 100.0050 #### Main Laboratory ([facility]) [address] [place] [address] Drew Granger MD CO2 [Moles/Vol] 26 mmol/L Normal 21-32 [facility] Comment on above: Performed By: #### L 100.0050 #### Main Laboratory ([facility]) [address] [place] [address] Drew Granger MD Creatinine [Mass/Vol] 0.47 mg/dL Low 0.60-1.30 [facility] Comment on above: Performed By: #### L 100.0050 #### Main Laboratory ([facility]) [address] [place] [address] Drew Granger MD GFR Calculation > 60 Normal [facility] Comment on above: Result Comment: Minister Of Religion dontrell Kidney Disease stages by NKDF Stage eGFR I >90 II 60-89 III 30-59 IV 15-29 V <15 or dialysis AGE(years) AVERAGE GFR 50-59 93 ml/min/1.73 square meters Note:This result is normalized to 1.73 square meter body surface area. Height and weight are not factored. Performed By: #### L 100.0050 #### Main Laboratory ([facility]) [address] [place] [address] Drew Granger MD Glucose [Mass/Vol] 107 mg/dL Normal 70-110 [facility] Comment on above: Result Comment: *Thi s reference range applies to fasting specimens only. Performed By: #### L 100.0050 #### Main [facility] ([facility]) [address] [place] [address] Drew Granger MD Phosphate [Mass/Vol] 4.5 mg/dL Normal 2.4-4.7 [facility] Comment on above: Performed By: #### L 100.0050 #### Main Laboratory ([facility]) [address] [place] [address] Drew Granger MD Potassium [Moles/Vol] 4.2 mmol/L Normal 3.6-5.0 [facility] Comment on above: Performed By: #### L 100.0050 #### Main Laboratory ([facility]) [address] [place], [place] [address] Drew Granger MD Sodium [Moles/Vol] 129 mmol/L Low 135-145 [facility] Comment on above: Performed By: #### L 100.0050 #### Main Laboratory ([facility]) [address] [place] [address] Drew Granger MD Urea nitrogen [Mass/Vol] 9 mg/dL Normal 7-20 [facility] Comment on above: Performed By: #### L 100.0050 #### Main Laboratory ([facility]) [address] [place] [address] Drew Granger MD Anisocytosis Auto Ql (Bld)Or dered By: Troy Garber on 09-16-2023 Anisocytosis Ql (Bld) 1+ [facility] Automated blood hypochromia detectionOrdered By: Troy Garber on 09-16-2023 Hypochromia Auto Ql (Bld) 2+ [facility] Blood Cultureon 09-16-2023 Bacteria identified Cx Nom [...] read back by DONITA LOMBARDI RN (by ARNOLDO at 1646, 09/12/23) Blood culture comments NO GROWTH IN THE ANAEROBIC BOTTLE AFTER 5 DAYS ORGANISM 1: Staphylococcus aureus Growth from the aerobic blood culture bottle For MILKA results, see culture collected 09/11/23 ([id number]) [facility] Comment on above: Performed By: #### M 140.0200 #### Main Laboratory ([facility]) [address] [place] [address] Drew Granger MD Bacteria identified Cx Nom (Bld) called to and read back by DONITA LOMBARDI RN (by ARNOLDO at 1646, 09/12/23) Blood culture comments NO [...] Trimethoprim/Sulfamet hoxazole <=10 S Vancomycin <=0.[address] [facility] Comment on above: Performed By: #### M 140.0200 #### Main Laboratory ([facility]) [address] [place] [address] Drew Granger MD Blood erythrocyte morphology identificationOrdered By: Troy Garber on 09-16-2023 RBC morphology finding Nom (Bld) Test not indicated [facility] Blood polychromasia detectio n by light microscopyOrdered By: Troy Garber on 09-16-2023 Polychromasia LM Ql (Bld) Slight [facility] C-Reactive Proteinon 023 C-Reactive Protein 17.1 mg/dL High <1.0 [facility] Comment on above: Performed By: #### L 100.0050 #### Main Laboratory ([facility]) [address] [place] [address] Drew Granger MD CBC with Differentialon 08-25 Abs Baso Count 200 /cmm Normal 0-200 [facility] Comment on above: Performed By: #### L 150.0000, L100.0000, L100.3600 ####Main Laboratory ([facility])[address], [place] [phone] Nivar, MD Abs Eos Count 100 /cmm Normal 0-500 [facility] Comment on above: Performed By: #### L 150.0000, L100.0000, L100.3600 ####Main [facility] ([facility])[address], [place] [phone] Nivar, MD Abs Lymph Count 1700 /cmm Normal 4532-4320 [facility] Comment on above: Performed By: #### L 150.0000, L100.0000, L100.3600 ####Main [facility] ([facility])[address], [place] [phone] Nivar, MD Abs [place] Count 800 /cmm Normal 0-800 [facility] Comment on above: Performed By: #### L 150.0000, L100.0000, L100.3600 ####Main Laboratory ([facility])[address], [place] [phone] Nivar, MD Abs Neut Count 19194 /cmm High 1802-1668 [facility] Comment on above: Performed By: #### L 150.0000, L100.0000, L100.3600 ####Main Laboratory ([facility])[address], [place] [phone] Nivar, MD Anisocytosis Ql (Bld) 1+ Normal [facility] Comment on above: Performed By: #### L 150.0000, L100.0000, L100.3600 ####Main Laboratory ([facility])[address] [place], [place] [phone] Nivar, MD Basophils/100 WBC (Bld) 1.0 % Normal 0-2 [facility] [place] Comment on above: Performed By: #### L 150.0000, L100.0000, L100.3600 ####Main Laboratory ([facility])[address], [place] [phone] Nivar, MD EOS-Auto Diff 0.3 % Normal 0-6 [facility] Comment on above: Performed By: #### L 150.0000, L100.0000, L100.3600 ####Main Laboratory ([facility])[address], [place] [phone] Nivar, MD Hypochromasia 2+ Normal [facility] Comment on above: Performed By: #### L 150.0000, L100.0000, L100.3600 ####Main Laboratory ([facility])[address], [place] [phone] Nivar, MD Lymphocytes/100 WBC (Bld) 8.8 % Low 15-45 [facility] Comment on above: Performed By: #### L 150.0000, L100.0000, L100.3600 ####Main Laboratory ([facility])[address], [place] [phone] Nivar, MD Macrocytosis 1+ Normal [facility] Comment on above: Performed By: #### L 150.0000, L100.0000, L100.3600 ####Main Laboratory ([facility])[address] [place], [place] [phone] Nivar, MD Microcytosis 1+ Normal [facility] Comment on above: Performed By: #### L 150.0000, L100.0000, L100.3600 ####Main Laboratory ([facility])[address] [place], [place] [phone] Nivar, MD [place]- Auto Diff 4.0 % Normal 2-10 [facility] Comment on above: Performed By: #### L 150.0000, L100.0000, L100.3600 ####Main Laboratory ([facility])[address] [place], [place] [phone] Nivar, MD Neut-Auto Diff 85.9 % High 40-70 [facility] Comment on above: Performed By: #### L 150.0000, L100.0000, L100.3600 ####Main Laboratory ([facility])[address] [place] [phone] Nivar, MD NRBC-Auto 0.0 /100 WBC Normal <1 [facility] Comment on above: Performed By: #### L 150.0000, L100.0000, L100.3600 ####Main Laboratory ([facility])[address] [place], [place] [phone] Nivar, MD Erythrocyte distribution width (RBC) [Ratio] 16.1 % High 12.0-16.0 [facility] Comment on above: Performed By: #### L 150.0000, L100.0000, L100.3600 ####Main Laboratory ([facility])[address] [place], [place] [phone] Nivar, MD Hematocrit (Bld) [Volume fraction] 24.4 % Low 35.0-44.0 [facility] Comment on above: Performed By: #### L 150.0000, L100.0000, L100.3600 ####Main Laboratory ([facility])[address] [phone] Nivar, MD Hemoglobin (Bld) [Mass/Vol] 8.0 g/dL Low 12.0-15.0 [facility] Comment on above: Performed By: #### L 150.0000, L100.0000, L100.3600 ####Main Laboratory ([facility])[address], [place] [phone] Nivar, MD MCH (RBC) [Entitic mass] 28.0 pg Normal 27.5-33.0 [facility] Comment on above: Performed By: #### L 150.0000, L100.0000, L100.3600 ####Main Laboratory ([facility])[address] [phone] Nivar, MD MCHC (RBC) [Mass/Vol] 32.8 g/dL Low 33.0-36.0 [facility] Comment on above: Performed By: #### L 150.0000, L100.0000, L100.3600 ####Main Laboratory ([facility])[address] [phone] Nivar, MD MCV 85.6 CU [place] Normal 80-97 [facility] Comment on above: Performed By: #### L 150.0000, L100.0000, L100.3600 ####Main Laboratory ([facility])[address] [phone] Nivar, MD Platelet Count 576 th/cmm High 150-400 [facility] Comment on above: Performed By: #### L 150.0000, L100.0000, L100.3600 ####Main Laboratory ([facility])[address], [place] [phone] Nivar, MD RBC 2.85 mil/cmm Low 4.00-5.10 [facility] Comment on above: Performed By: #### L 150.0000, L100.0000, L100.3600 ####Main Laboratory ([facility])[address], [place] [phone] Nivar, MD WBC 19.4 th/cmm High 4.4-10.5 [facility] Comment on above: Performed By: #### L 150.0000, L100.0000, L100.3600 ####Main Laboratory ([facility])[address], [place] [phone] Nivar, MD Case Management Daily Noteon 09-16-2023 Case Management Daily Note [facility] Case Management Patient: GEOVANNY MEJÍA [address] : 1970 [place], [place] [address] Location: [address] [place] [address] Unit #: [id number] Case Management Daily Note Dina Kaur Mis Service Date: 09/16/23 Case Mgmt Daily Note - Plan of Care Controls Technician Agrees with Attending and Consult Plan: Yes - COVID-19 Was Position Statement Letter Delivered?: Yes - Care Coordination Communication Care Coordination Communication: Spoke with patient's family via phone - Hospital Stay Days Day 1 Comment: 09/08 Met with patient in the room. Patient is from [place]. She is up here to visit her sister. Patient reporting she is normally independent. Does not have a PCP. Patient would like to use [facility] for meds. Planning to have her cousin pick her up at d/c. Contact is her cousin Ursula. Denies having LW/dPOA. Controls Technician: Evelyne Pena, RN Day 2 Comment: 09/09 Met with patient in the room. Patient asking to get up and move around. PT/OT to eval. S/p L ABD drain placement. Patient agreeable to [facility] for drain mgmt if needed. Reporting she will be going to [facility] at d/c to stay with her cousin Ursula. CM spoke with patients cousin Ursula via telephone who reports she is ok with [facility] coming to her home if patient would go there at d/c. Ursula reporting patient was homeless in [place] and recently move to [place] with her sister Monique. Controls Technician: Evelyne Pena, RN Day 3 Comment: 09/10 D/c needs pending medical course. Jr present. Dilaudid MATERIALS AND PROCESSES MANAGER. PT/OT. ID c/s. Therapy recs for IPR vs OP PT. Will follow to assist with d/c needs. Controls Technician: Evelyne Pena, RN Day 4 Comment: 09/11 Met with patient in the room who is planning to d/c to her cousin Gena lutz in [place], [place]. Patient is agreeable to [facility]. CM spoke with Ursula who is agreeable for patient to come there at d/c. Referral sent to [facility]. Await approval. 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 ABD drain. NPO. ID c/s. PT/OT. Controls Technician: Evelyne Pena, RN Day 5 Comment: 09/12 Met with patient in the room to discuss d/c plan. Patient unable to move b/l LE. No sensation to RLE. Does have sesation to LLE. PT/OT recommending SNF, patient agreeable. She would like to go somewhere near her cousin Ursula in [place], [place]. CM assisted patient with changing her address with her [facility] insurance to an [place] address. c/s for SNF placement and GWEN assist with [place]. Patient will need a precert. MATERIALS AND PROCESSES MANAGER continues. If patient would improve with mobility, she has been accepted to [facility]. CM spoke with Ursula via telephone to update. Controls Technician: Evelyne Pena, RN Day 6 Comment: 09/15- POD 2. CM spoke with patient at bedside. VSS. WBC 19.9. PT/OT rec SNF. Pt verbalized agreeable for SNF and would like [facility]. c/s AND reported that [facility] is not in network with pt insurance. MANOLO spoke w/ pt AND Lamin is now reviewing patient. Pt is awaiting the start of [place] GWEN application with [facility] as current dual insurance is out of state. Pt will also require a precert when medically ready. CM following. Controls Technician: Dina Abebe Day 8 Comment: 09/15- POD 2. CM spoke with patient at bedside. VSS. WBC 19.9. PT/OT rec SNF. Pt verbalized agreeable for SNF and would like [facility]. c/s. Pt will require precert when medically [...] Attending noted plans to attempt transfer to [facility] AND if denied, to attempt transfer to [facility], per pt preferance. Transfer packet completed. CM following. @12:21- Nurse reported to CM that Dr Holt has declined to take pt, per [facility], AND that a message was relayed to the attending. @14:30- [facility] has assisted pt with completion of [place] GWEN vilma. CM faxing documentation to [facility] AND calling now to verify if they are able to accept pt with that. If unable, CM to fax AND verify w/ [facility]. If neither hospital is able to accept, attending plans to reach out to [facility]. @15:00- CM spoke with Shelby at [facility]. Shelby reported that she will communicate with her team AND call CM back with a determination. CM to update attending physician. @15:45- CM received cb from Roseline at [facility]. Roseline stated that their neurosurgeon wants L[facility] to call them to consider if they would be willing to take the patient, despite GWEN pending status and out of network insurance. CM updated the attending. Controls Technician: Dina Abebe - Home Health/IV Infusion/Wound Vac Home Health Referral Indicated: Yes Home Health List Provided: Yes Indication for Home Health: Wound Care, Other Patient's Response: Yes Home Health Agencies: [facility] (more content not included)... Normal [facility] Erythrocyte Sedimentation Ra raquel 09-16-2023 ESR (Bld) [Velocity] 112 mm/h High <=30 [facility] Comment on above: Performed By: #### L 150.0000, L100.0000, L100.3600 ####Main Laboratory ([facility])[address], [place] [phone] Nivar, MD Erythrocyte sedimentation ra teOrdered By: Troy Garber on 09-16-2023 ESR (Bld) [Velocity] 112 mm/h High <30 [facility] Macrocytes Auto Ql (Bld)Orde red By: Troy Garber on 09-16-2023 Macrocytes Ql (Bld) 1+ [facility] Magnesiumon 09-16-2023 Magnesium [Mass/Vol] 2.1 mg/dL Normal 1.8-2.5 [facility] Comment on above: Performed By: #### L 100.0050 #### Main Laboratory ([facility]) [address] [place] [address] Drew Granger MD Microcytes Auto Ql (Bld)Orde red By: Troy Garber on 09-16-2023 Microcytes Ql (Bld) 1+ [facility] Progress Note - Hospitalisto n 09-16-2023 Progress Note - Hospitalist [facility] Medical Records Patient: GEOVANNY MEJÍA [address] : 1970 [place], [place] [address] Location: [phone] Unit #: [id number] Progress Note - Hospitalist Troy Garber MD [...] with the direction to call first the [facility] for the transfer, and if that [...] a call has been placed to the [facility], according to their choice, and the third choice being the [facility], if the [facility] transfer does not materialize. We will continue with supportive but aggressive management pending the transfer. Current Code Status AND Diet: 09/08/23 13:19 Code Status Routine Resuscitation Status: Full Code Code Status Order Placed: Code Status Ordered 09/08/23 at 1321 09/13/23 08:00 Regular Diet Texture: Regular Fluid Restrictions?: No Consult Etl Bi Developer for Oral Suppleme (more content not included)... Normal [facility] RBC Morphologyon 09-16-2023 Polychromasia Slight Normal [facility] Comment on above: Performed By: #### L 150.0000, L100.0000, L100.3600 ####Main Laboratory ([facility])[address], [place] [phone] Nivar, MD Renal Function Panelon 09-16 Albumin [Mass/Vol] 2.5 g/dL Low 3.5-5.0 [facility] Comment on above: Performed By: #### L 100.0050 #### Main Laboratory ([facility]) [address] [place] [address] Drew Granger MD Anion gap [Moles/Vol] 6 mmol/L Normal 4-12 [facility] Comment on above: Performed By: #### L 100.0050 #### Main Laboratory ([facility]) [address] [place] [address] Drew Granger MD Calcium [Mass/Vol] 8.10 mg/dL Low 8.8-10.5 [facility] Comment on above: Performed By: #### L 100.0050 #### Main Laboratory ([facility]) [address] [place] [address] Drew Granger MD Chloride [Moles/Vol] 96 mmol/L Low 101-111 [facility] Comment on above: Performed By: #### L 100.0050 #### Main Laboratory ([facility]) [address] [place] [address] Drew Granger MD CO2 [Moles/Vol] 26 mmol/L Normal 21-32 [facility] Comment on above: Performed By: #### L 100.0050 #### Main Laboratory ([facility]) [address] [place] [address] Drew Granger MD Creatinine [Mass/Vol] 0.47 mg/dL Low 0.60-1.30 [facility] Comment on above: Performed By: #### L 100.0050 #### Main Laboratory ([facility]) [address] [place] [address] Drew Granger MD GFR Calculation > 60 Normal [facility] Comment on above: Result Comment: [facility] dontrell Kidney Disease stages by NKDF Stage eGFR I >90 II 60-89 III 30-59 IV 15-29 V <15 or dialysis AGE(years) AVERAGE GFR 50-59 93 ml/min/1.73 square meters Note:This result is normalized to 1.73 square meter body surface area. Height and weight are not factored. Performed By: #### L 100.0050 #### Main Laboratory ([facility]) [address] [place] [address] Drew Granger MD Glucose [Mass/Vol] 124 mg/dL High 70-110 [facility] Comment on above: Performed By: #### L 100.0050 #### Main Laboratory ([facility]) [address] [place] [address] Drew Granger MD Phosphate [Mass/Vol] 4.8 mg/dL High 2.4-4.7 [facility] Comment on above: Result Comment: Delt a: 2.6 on 09/15/230119 Performed By: #### L 100.0050 #### Main Laboratory ([facility]) [address] [place] [address] Drew Granger MD Potassium [Moles/Vol] 4.3 mmol/L Normal 3.6-5.0 [facility] Comment on above: Performed By: #### L 100.0050 #### Main Laboratory ([facility]) [address] [facility] Drew Granger MD Sodium [Moles/Vol] 128 mmol/L Low 135-145 [facility] Comment on above: Performed By: #### L 100.0050 #### Main Laboratory ([facility]) [address] [place] [address] Drew Granger MD Urea nitrogen [Mass/Vol] 11 mg/dL Normal 7-20 [facility] Comment on above: Performed By: #### L 100.0050 #### Main Laboratory ([facility]) [address] [place] [address] Drew Granger MD Serum or plasma C reactive p rotein measurement (mass/volume)Ordered By: Troy Garber on 09-16-2023 CRP [Mass/Vol] 17.1 mg/dL High <1.0 [facility] Slide Review by Pathologisttheodore n 09-16-2023 Slide Review by Pathologist * Normal [facility] Comment on above: Result Comment: Abso lute granulocytosis consistent with response to infection, toxins, tissue injury, stresses or hemorrhage. Hypochromic, microcytic anemia with high RDW consistent with iron deficiency. Suggest iron studies. Slide reviewed by Dr Krunal BESS on 09/15/23. Performed By: #### L 600.6150 #### Main Laboratory ([facility]) [address] [place] [address] Drew Granger MD Social Work Daily Noteon Social Work Daily Note [facility] [place] System Manager Ems Patient: GEOAVNNY MEJÍA [address] : 1970 [place], [place] [address] Location: [phone] Unit #: [id number] Social Work Daily Note Jacqueline Edwards INSULATION CUPOLA CHARGER, ELECTROLYTIC DE SCALER Service Date: 09/16/23 SW Daily Note - * Psychosocial Assessment [...] rehab. pt is needing to transfer her [facility] medicaid dual plan. SW got a copy of pts card, pt was unable to move much and couldnt sit up, she needed assistance to get her insurance card out of her wallet. Nurse LENY Hickey called with pt on Friday to transfer the Medicare portion. The Medicaid portion needs cancelled and re-submitted for [place] Medicaid for pts county she will be living in. SW made contact with [employer] for assistance and to re-submit pts medicaid vilma. Pt would like a facility near her cousin ursula's house. There are looking at [facility] in [place], and [facility]. SW made contact with [facility] and they are not in network with [facility]. [facility] is in Network. SW follow up with pts cousin via phone as she would like her to help with finding a usp. Per Ursula there is another facility near her [facility]. SW made contact with [facility], they are in network with [facility], Per there admissions person Emmanuel they would be willing to bring pt in with a pending Medicaid number, per Emmanuel both Medicare and Medicaid would need transfered. Referral sent to [facility] for review. Marisol from [facility] to meet with pt. SW to also meet back to assist with canceling [place] if Marisol has not been able to assist pt. Market Development Analyst: aJcqueline Edwards, INSULATION CUPOLA CHARGER, ELECTROLYTIC DE SCALER Day 2 Note: 09/15/23 SW met back with pt, pt was asleep but easily aroused. SW explained to pt that we needed to terminate her [place] Medicaid before submitting an application for [place] Medicaid and this needed to be initiated prior to her Dcing to a SNF. SW called [facility] and had to leave a VM requesting that they call pt back to so that pt could terminate her [place] Medicaid there and give her new address and county. Market Development Analyst: Jacqueline Edwards, MARY, ELECTROLYTIC DE SCALER Day 3 Note: 09/16/23 Pt transfer pending [...] Source initiated a Medicaid application for pt. [place] Medicaid Application/pending number forward to LENY Arroyo if needed for transfer out. Pts cousin Ursula shared with that she heard that pt may have a history of substance abuse and this could be contributing to her current condition. MANOLO unsure of this and encouraged her to speak with physician about this when she is next here visiting with pt. Market Development Analyst: Jacqueline Edwards, INSULATION CUPOLA CHARGER, ELECTROLYTIC DE SCALER - * Requested Intvs/Referrals * Software Sales Representative Referrals: SNF/LTAC Placement Market Development Analyst I Referrals: Financial Issues/Medicaid Applications - * HEALTHCARE DECISIONS * Living Will: Unknown Durable Power of Bottle Tester for Health Care: Unknown State of [place] DNR Comfort Care: Unknown [place] DNR Comfort Care Arrest: Unknown - Home Health/IV Infusion/Wound Vac Home Health Referral Indicated: Yes Home Health List Provided: Yes Indication for Home Health: Wound Care, Other Patient's Response: Yes Home Health Agencies: [facility] Patient given options to view quality scores of facility?: No Entered by: MARY Rodriguez MSW on 09/16/23 1523 Report Signed by: LORNA Ovalle on 09/16/23 1533 < > Report Signed by: on Normal [facility] Status Note/Updateon 023 Status Note/Update [facility] Medical Records Patient: GEOVANNY MEJÍA. : 1970 [place] [address] Location: [phone] Unit #: [id number] Status Note/Update Troy Garber MD Service Dt/Tm: 09/16/231650 Note: GEOVANNY MEJÍA is a 53 yr old F who was admitted on 09/08/23 for INTRA ABDOMINAL ABCESS. Patient's [place] Medicaid has been approved and her insurance [...] < > Report Signed by: on Normal [facility] Status Note/Update [facility] Medical Records Patient: GEOVANNY MEJÍA. : 1970 [place] [id number] Location: [phone] Unit #: [id number] Status Note/Update David Elena MD Service Dt/Tm: 09/15/232044 Note: GEOVANNY MEJÍA is a 53 yr old F who was admitted on 09/08/23 for INTRA ABDOMINAL ABCESS. Transfer process to go to [facility] started. Discussed with patient and also patient's close relative Ursula Echevarria about the transfer to [facility]. They have agreed to be transferred. Spoke to Shabnam transfer nurse at [facility] phone number [phone]. Detailed history was given. She will speak [...] < > Report Signed by: on Normal [facility] C-Reactive Proteinon 023 C-Reactive Protein 11.4 mg/dL High <1.0 [facility] Comment on above: Performed By: #### M 110.0050 #### Main Laboratory ([facility]) [address] [place] [address] Drew Granger MD CBC with Differentialon 08-25 Abs Baso Count 0 /cmm Normal 0-200 [facility] Comment on above: Performed By: #### L 600.6150 #### Main Laboratory ([facility]) [address] [place] [address] Drew Granger MD Abs Eos Count 0 /cmm Normal 0-500 [facility] Comment on above: Performed By: #### L 600.6150 #### Main Laboratory ([facility]) [address] [place] [address] Drew Granger MD Abs Lymph Count 2000 /cmm Normal 0604-2550 [facility] Comment on above: Performed By: #### L 600.6150 #### Main Laboratory ([facility]) [address] [place] [address] Drew Granger MD Abs [place] Count 700 /cmm Normal 0-800 [facility] Comment on above: Performed By: #### L 600.6150 #### Main Laboratory ([facility]) [address] [place] [address] Drew Granger MD Abs Neut Count 39052 /cmm High 8264-7595 [facility] Comment on above: Performed By: #### L 600.6150 #### Main Laboratory ([facility]) [address] [place] [address] Drew Granger MD Basophils/100 WBC (Bld) 0.0 % Normal 0-2 [facility] [place] Comment on above: Performed By: #### L 600.6150 #### Main Laboratory ([facility]) [address] [place] [address] Drew Granger MD EOS-Auto Diff 0.2 % Normal 0-6 [facility] Comment on above: Performed By: #### L 600.6150 #### Main Laboratory ([facility]) [address] [place] [address] Drew Granger MD Erythrocyte distribution width (RBC) [Ratio] 16.1 % High 12.0-16.0 [facility] Comment on above: Performed By: #### L 600.6150 #### Main Laboratory ([facility]) [address] [place] [place] [address] Drew Granger MD Hematocrit (Bld) [Volume fraction] 27.0 % Low 35.0-44.0 [facility] Comment on above: Performed By: #### L 600.6150 #### Main Laboratory ([facility]) [address] [place] [address] Drew Granger MD Hemoglobin (Bld) [Mass/Vol] 8.9 g/dL Low 12.0-15.0 [facility] Comment on above: Performed By: #### L 600.6150 #### Main Laboratory ([facility]) [address] [place] [address] Drew Granger MD Lymphocytes/100 WBC (Bld) 10.2 % Low 15-45 [facility] Comment on above: Result Comment: Delt a: 2.9 on 09/13/23 Performed By: #### L 600.6150 #### Main Laboratory ([facility]) [address] [place] [address] Drew Granger MD MCH (RBC) [Entitic mass] 28.0 pg Normal 27.5-33.0 [facility] Comment on above: Performed By: #### L 600.6150 #### Main Laboratory ([facility]) [address] [place] [address] Drew Granger MD MCHC (RBC) [Mass/Vol] 32.9 g/dL Low 33.0-36.0 [facility] Comment on above: Performed By: #### L 600.6150 #### Main Laboratory ([facility]) [address] [place] [address] Drew Granger MD MCV 85.2 CU [place] Normal 80-97 [facility] Comment on above: Performed By: #### L 600.6150 #### Main Laboratory ([facility]) [address] [place] [address] Drew Granger MD [place]- Auto Diff 3.6 % Invalid Interpretation Code 2-10 [facility] Comment on above: Result Comment: Delt a: 1.4 on 09/13/23 Performed By: #### L 600.6150 #### Main Laboratory ([facility]) [address] [place] [address] Drew Granger MD Neut-Auto Diff 86.0 % High 40-70 [facility] Comment on above: Performed By: #### L 600.6150 #### Main Laboratory ([facility]) [address] [place] [address] Drew Granger MD NRBC-Auto 0.0 /100 WBC Normal <1 [facility] Comment on above: Performed By: #### L 600.6150 #### Main Laboratory ([facility]) [address] [place] [address] Drew Granger MD Platelet Count 586 th/cmm High 150-400 [facility] Comment on above: Performed By: #### L 600.6150 #### [facility] ([facility] [facility]) [address] [place] [address] Drew Granger MD RBC 3.17 mil/cmm Low 4.00-5.10 [facility] Comment on above: Performed By: #### L 600.6150 #### Main Laboratory ([facility]) [address] [place] [address] Drew Granger MD WBC 19.9 th/cmm High 4.4-10.5 [facility] Comment on above: Performed By: #### L 600.6150 #### Main Laboratory ([facility]) [address] [place] [address] Drew Granger MD Case Management Daily Noteon 09-15-2023 Case Management Daily Note [facility] Case Management Patient: GEOVANNY MEJÍA [address] : 1970 [place], [place] [address] Location: [facility] [phone] Unit #: [id number] [id number] Case Management Daily Note Dina Kaur Mis Service Date: 09/15/23 Case Mgmt Daily Note - Plan of Care Controls Technician Agrees with Attending and Consult Plan: Yes - Patient Preferences AND Goals What is the patient's preference?: New SNF Recommended acute discharge goals: New SNF - COVID-19 Was Position Statement Letter Delivered?: Yes - Hospital Stay Days Day 1 Comment: 09/08 Met with patient in the room. Patient is from [place]. She is up here to visit her sister. Patient reporting she is normally independent. Does not have a PCP. Patient would like to use [facility] OP [facility] for meds. Planning to have her cousin pick her up at d/c. Contact is her cousin Ursula. Denies having LW/dPOA. Controls Technician: Evelyne Pena RN Day 2 Comment: 09/09 Met with patient in the room. Patient asking to get up and move around. PT/OT to eval. S/p L ABD drain placement. Patient agreeable to [facility] for drain mgmt if needed. Reporting she will be going to [facility] at d/c to stay with her cousin Ursula. CM spoke with patients cousin Ursula via telephone who reports she is ok with [facility] coming to her home if patient would go there at d/c. Ursula reporting patient was homeless in [place] and recently move to [place] with her sister Monique. Controls Technician: Evelyne Pena, RN Day 3 Comment: 09/10 D/c needs pending medical course. Jr present. Dilaudid MATERIALS AND PROCESSES MANAGER. PT/OT. ID c/s. Therapy recs for IPR vs OP PT. Will follow to assist with d/c needs. Controls Technician: Evelyne Pena, RN Day 4 Comment: 09/11 Met with patient in the room who is planning to d/c to her cousin Gena lutz in [place], [place]. Patient is agreeable to [facility]. CM spoke with Ursula who is agreeable for patient to come there at d/c. Referral sent to [facility]. Await approval. 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 ABD drain. NPO. ID c/s. PT/OT. Controls Technician: Evelyne Pena, RN Day 5 Comment: 09/12 Met with patient in the room to discuss d/c plan. Patient unable to move b/l LE. No sensation to RLE. Does have sesation to LLE. PT/OT recommending SNF, patient agreeable. She would like to go somewhere near her cousin Ursula in [place], [place]. CM assisted patient with changing her address with her [facility] insurance to an [place] address. MANOLO c/s for SNF placement and [facility] assist with [place]. Patient will need a precert. MATERIALS AND PROCESSES MANAGER continues. If patient would improve with mobility, she has been accepted to [facility]. CM spoke with Ursula via telephone to update. Controls Technician: Evleyne Pena, RN Day 6 Comment: 09/15- POD 2. CM spoke with patient at bedside. VSS. WBC 19.9. PT/OT rec SNF. Pt verbalized agreeable for SNF and would like [facility]. c/s AND reported that [facility] is not in network with pt insurance. MANOLO spoke w/ pt AND Lamin is now reviewing patient. Pt is awaiting the start of [facility] application with [employer] as current dual insurance is out of state. Pt will also require a precert when medically ready. CM following. Controls Technician: Dina Abebe - Home Health/IV Infusion/Wound Vac Home Health Referral Indicated: Yes Home Health List Provided: Yes Indication for Home Health: Wound Care, Other Patient's Response: Yes Home Health Agencies: [facility] Patient given the option to view quality scores of facility?: Yes - Half-Way Facility SNF List Provided: Yes Half-Way Facilities: [facility] Patient given the option to view quality [...] 1554 < > Co-Signed by: on Normal [facility] Erythrocyte Sedimentation Ra raquel 09-15-2023 ESR (Bld) [Velocity] 116 mm/h High <=30 [facility] Comment on above: Performed By: #### L 600.6150 #### Main Laboratory ([facility]) [address] [place] [address] Drew Granger MD MRI Thoracic Spine w/wo Cont pedro 09-15-2023 MRI Thoracic Spine w/wo Contr [facility] Radiology Department Patient: GEOVANNY MEJÍA [address] : 1970 Sex: [place] [address] Location: [phone] Unit #: [id number] Ordering Phys: Troy Garber MD Exam Date: 09/15/23 Exam: MRI MRI Thoracic Spine w/wo Contr Result: See Report [id number] STUDY: MRI THORACIC SPINE WITH AND WITHOUT [...] 7:39 EDT Reading Location ID and State: [id number] [facility] , Service support , cc: Troy Garber MD; None Dictated by: Carolin Bhatia MD on 09/16/23738 Transcribed by: Carolin Bhatia on 09/16/23738 Report Signed by: Carolin Bhatia MD on 09/16/23738 Normal [facility] Magnesiumon 09-15-2023 Magnesium [Mass/Vol] 2.0 mg/dL Normal 1.8-2.5 [facility] Comment on above: Performed By: #### M 110.0050 #### Main Laboratory ([facility]) [address] [place] [address] Drew Granger MD Potassiumon 09-15-2023 Potassium [Moles/Vol] 4.6 mmol/L Normal 3.6-5.0 [facility] Comment on above: Performed By: #### L 400.1500 ####Main Laboratory ([facility])[address], [place] [phone] Nivar, MD [facility] Progress Note - Hospitalist [facility] Medical Records Patient: GEOVANNY MEJÍA[address] : 1970 [place], [place] [address] Location: [address] [place] [address] Unit #: [id number] Progress Note - Hospitalist rToy Garber MD Service Dt/Tm: 09/15/23 0745 Assessment/Plan [...] Diet Texture: Regular Fluid Restrictions?: No Consult Etl Bi Developer for Oral Supplements/Nourishme nts?: No Discussed Patient's Care With: Nurse, Case Management and Physician Subjective Subjective: Patient was seen and examined in the morning, after I was notified by neurosurgeon through the admitting provider phone, to obtain an MRI of the thoracic spine with and without contrast to asses (more content not included)... Normal [facility] Progress Note Neurosurgeryon 09-15-2023 Progress Note Neurosurgery [facility] Medical Records Patient: GEOVANNY MEJÍA1 [address] : 1970 [place], [place] [address] Location: [facility] [phone] Unit #: [id number] Progress Note Neurosurgery Lucy Lara PA-C Service Dt/Tm: 09/15/23 1609 Assessment/Plan (1) Bacteremia: Status: Acute (2) Retroperitoneal [...] upper extremities for any progressive neurologic compromise. Willy MEJÍA is a 53 yr old [...] I have (more content not included)... Normal [facility] Renal Function Panelon 09-15 Albumin [Mass/Vol] 2.5 g/dL Low 3.5-5.0 [facility] Comment on above: Performed By: #### M 110.0050 #### Main Laboratory ([facility]) [address] [place] [address] Drew Granger MD Anion gap [Moles/Vol] 6 mmol/L Normal 4-12 [facility] Comment on above: Performed By: #### M 110.0050 #### Main Laboratory ([facility]) [address] [place] [address] Drew Granger MD Calcium [Mass/Vol] 8.00 mg/dL Low 8.8-10.5 [facility] Comment on above: Performed By: #### M 110.0050 #### Main Laboratory ([facility]) [address] [place] [address] Drew Granger MD Chloride [Moles/Vol] 99 mmol/L Low 101-111 [facility] Comment on above: Performed By: #### M 110.0050 #### Main Laboratory ([facility]) [address] [place] [address] Drew Granger MD CO2 [Moles/Vol] 28 mmol/L Normal 21-32 [facility] Comment on above: Performed By: #### M 110.0050 #### Main Laboratory ([facility]) [address] [place] [address] Drew Granger MD Creatinine [Mass/Vol] 0.55 mg/dL Low 0.60-1.30 [facility] Comment on above: Performed By: #### M 110.0050 #### Main Laboratory ([facility]) [address] [place] [address] Drew Granger MD GFR Calculation > 60 Normal [facility] Comment on above: Result Comment: Minister Of Religion dontrell Kidney Disease stages by NKDF Stage eGFR I >90 II 60-89 III 30-59 IV 15-29 V <15 or dialysis AGE(years) AVERAGE GFR 50-59 93 ml/min/1.73 square meters Note:This result is normalized to 1.73 square meter body surface area. Height and weight are not factored. Performed By: #### M 110.0050 #### Main Laboratory ([facility]) [address] [place] [address] Drew Granger MD Glucose [Mass/Vol] 109 mg/dL Normal 70-110 [facility] Comment on above: Result Comment: *Thi s reference range applies to fasting specimens only. Performed By: #### M 110.0050 #### Main Laboratory ([facility]) [address] [place] [address] Drew Granger MD Phosphate [Mass/Vol] 2.6 mg/dL Normal 2.4-4.7 [facility] Comment on above: Performed By: #### M 110.0050 #### Main Laboratory ([facility]) [address] [place] [address] Drew Granger MD Potassium [Moles/Vol] 4.6 mmol/L Normal 3.6-5.0 [facility] Comment on above: Performed By: #### M 110.0050 #### Main Laboratory ([facility]) [address] [place] [address] Drew Granger MD Sodium [Moles/Vol] 133 mmol/L Low 135-145 [facility] Comment on above: Performed By: #### M 110.0050 #### Main Laboratory ([facility]) [address] [place] [address] Drew Granger MD Urea nitrogen [Mass/Vol] 15 mg/dL Normal 7-20 [facility] Comment on above: Performed By: #### M 110.0050 #### Main Laboratory ([facility]) [address] [place] [address] Drew Granger MD Social Work Daily Noteon Social Work Daily Note [facility] Manager Ems Patient: GEOVANNY MEJÍA [address] : 1970 [place], [place] [address] Location: [phone] Unit #: [id number] Social Work Daily Note Jacqueline Edwards INSULATION CUPOLA CHARGER, ELECTROLYTIC DE SCALER Service Date: 09/15/23 SW Daily Note - [...] rehab. pt is needing to transfer her [facility] medicaid dual plan. SW got a copy of pts card, pt was unable to move much and couldnt sit up, she needed assistance to get her insurance card out of her wallet. Nurse LENY Hickey called with pt on Friday to transfer the Medicare portion. The Medicaid portion needs cancelled and re-submitted for [place] Medicaid for pts county she will be living in. MANOLO made contact with [employer] for assistance and to re-submit pts medicaid vilma. Pt would like a facility near her cousin ursula's house. There are looking at [facility] in [place], and [facility]. MANOLO made contact with [facility] and they are not in network with [facility]. [facility] is in Network. MANOLO follow up with pts cousin via phone as she would like her to help with finding a usp. Per Ursula there is another facility near her Lamin Riky. SW made contact with [facility], they are in network with [facility], Per there admissions person Emmanuel they would be willing to bring pt in with a pending Medicaid number, per Emmanuel both Medicare and Medicaid would need transfered. Referral sent to [facility] for review. Marisol from [facility] to meet with pt. SW to also meet back to assist with canceling [place] Medicaid if Marisol has not been able to assist pt. Market Development Analyst: Jacqueline Edwards LSW, ELECTROLYTIC DE SCALER Day 2 Note: 09/15/23 SW met back with pt, pt was asleep but easily aroused. SW explained to pt that we needed to terminate her [place] Medicaid before submitting an application for [place] Medicaid and this needed to be initiated prior to her Dcing to a SNF. SW called [facility] and had to leave a VM requesting that they call pt back to so that pt could terminate her [place] Medicaid there and give her new address and county. Market Development Analyst: Jacqueline Edwards LSW, LORNA - * Requested Intvs/Referrals * Software Sales Representative Referrals: SNF/LTAC Placement Market Development Analyst I Referrals: Financial Issues/Medicaid Applications - * HEALTHCARE DECISIONS * Living Will: Unknown Durable Power of Bottle Tester for Health Care: Unknown [place] DNR Comfort Care: [place] DNR Comfort Care Arrest: Unknown - Home Health/IV Infusion/Wound Vac Home Health Referral Indicated: Yes Home Health List Provided: Yes Indication for Home Health: Wound Care, Other Patient's Response: Yes Home Health Agencies: [facility] Patient given options to view quality scores of facility?: No Entered by: MARY Rodriguez, LORNA on 09/15/23 1547 Report Signed by: LORNA Ovalle on 09/15/23 1553 < > Report Signed by: on Normal [facility] Social Work Daily Note [facility] Manager Ems Patient: GEOVANNY MEJÍA [address] : 1970 [place], [place] [address] Location: [phone] Unit #: [id number] Social Work Daily Note Jacqueline L Jerry INSULATION CUPOLA CHARGER, ELECTROLYTIC DE SCALER Service Date: 09/15/23 SW Daily Note - [...] rehab. pt is needing to transfer her [facility] medicaid dual plan. SW got a copy of pts card, pt was unable to move much and couldnt sit up, she needed SW assistance to get her insurance card out of her wallet. Nurse LENY Hickey called with pt on Friday to transfer the Medicare portion. The Medicaid portion needs cancelled and re-submitted for [place] Medicaid for pts county she will be living in. SW made contact with [facility] for assistance and to re-submit pts medicaid vilma. Pt would like a facility near her cousin ursula's house. There are looking at [facility] in [place], and [facility]. SW made contact with [facility] and they are not in network with [facility]. [facility] is in Network. SW follow up with pts cousin via phone as she would like her to help with finding a usp. Per Ursula there is another facility near her [facility]. SW made contact with [facility], they are in network with [facility], Per there admissions person Emmanuel they would be willing to bring pt in with a pending Medicaid number, per Emmanuel both Medicare and Medicaid would need transfered. Referral sent to [facility] for review. Marisol from [facility] to meet with pt. SW to also meet back to assist with canceling [place] Medicaid if Marisol has not been able to assist pt. Market Development Analyst: Jacqueline Edwards, INSULATION CUPOLA CHARGER, ELECTROLYTIC DE SCALER - * Information * Oriented to: Person, Place, Time, Situation Mental Status/Mood: Alert and Oriented, Cooperative - * Requested Intvs/Referrals * Software Sales Representative Referrals: SNF/LTAC Placement Market Development Analyst I Referrals: Financial Issues/Medicaid Applications - * HEALTHCARE DECISIONS * Living Will: Unknown Durable Power of Bottle Tester for Health Care: [place] DNR Comfort Care: Unknown [place] DNR Comfort Care Arrest: Unknown - Home Health/IV Infusion/Wound Vac Home Health Referral Indicated: Yes Home Health List Provided: Yes Indication for Home Health: Wound Care, Other Patient's Response: Yes Home Health Agencies: [facility] Patient given options to view quality scores of facility?: No Entered by: MARY Rodriguez MSW on 09/15/23 1405 Report Signed by: LORNA Ovalle on 09/15/23 1421 < > Report Signed by: on Normal [facility] Absolute lymphocyte countOrd ered By: Troy Garber on 09-14-2023 Lymphocytes Auto (Unsp spec) [#/Vol] 2366 /cmm 6105-1811 [facility] Basophils Auto (Bld) [#/Vol] Ordered By: Troy Garber on 09-14-2023 Basophils (Bld) [#/Vol] 0 /cmm 0-200 [facility] [place] Blood absolute eosinophil co untOrdered By: Troy Garber on 09-14-2023 Eosinophils (Bld) [#/Vol] 0 /cmm 0-500 [facility] Blood band neutrophils/100 l eukocytesOrdered By: Troy Garber on 09-14-2023 Band form neutrophils/100 WBC (Bld) 4.0 % 2-6 [facility] Blood monocytes/100 leukocyt esOrdered By: Troy Garber on 09-14-2023 Monocytes/100 WBC (Bld) 2.0 % 2-10 [facility] [place] Blood neutrophils/100 leukoc ytesOrdered By: Troy Garber on 09-14-2023 Neutrophils/100 WBC (Bld) 81.0 % High 40-70 [facility] Blood target cells detection by light microscopyOrdered By: Troy Garber on 09-14-2023 Target cells LM Ql (Bld) Slight [facility] C-Reactive Proteinon 023 C-Reactive Protein 10.9 mg/dL High <1.0 [facility] Comment on above: Performed By: #### L 400.0410 #### Main Laboratory ([facility]) [address] [place] [address] Drew Granger MD CBC with Differentialon 08-25 Erythrocyte distribution width (RBC) [Ratio] 16.2 % High 12.0-16.0 [facility] Comment on above: Performed By: #### L 100.0000, L100.2000, L150.0000 ####Main Laboratory ([facility])[address] [phone] Nivar, MD Hematocrit (Bld) [Volume fraction] 24.1 % Low 35.0-44.0 [facility] Comment on above: Performed By: #### L 100.0000, L100.2000, L150.0000 ####Main Laboratory ([facility])[address], [place] [phone] Nivar, MD Hemoglobin (Bld) [Mass/Vol] 8.0 g/dL Low 12.0-15.0 [facility] Comment on above: Performed By: #### L 100.0000, L100.2000, L150.0000 ####Main Laboratory ([facility])[address] [phone] Nivar, MD MCH (RBC) [Entitic mass] 28.5 pg Normal 27.5-33.0 [facility] Comment on above: Performed By: #### L 100.0000, L100.2000, L150.0000 ####Main Laboratory ([facility])[address], [place] [phone] Nivar, MD MCHC (RBC) [Mass/Vol] 33.3 g/dL Normal 33.0-36.0 [facility] Comment on above: Performed By: #### L 100.0000, L100.2000, L150.0000 ####Main Laboratory ([facility])[address], [place] [phone] Nivar, MD MCV 85.6 CU MIKLA Normal 80-97 [facility] Comment on above: Performed By: #### L 100.0000, L100.2000, L150.0000 ####Main Laboratory ([facility])[address] [phone] Nivar, MD Platelet Count 392 th/cmm Normal 150-400 [facility] Comment on above: Performed By: #### L 100.0000, L100.2000, L150.0000 ####Main Laboratory ([facility])[address] [phone] Nivar, MD RBC 2.81 mil/cmm Low 4.00-5.10 [facility] Comment on above: Performed By: #### L 100.0000, L100.2000, L150.0000 ####Main Laboratory ([facility])[address] [phone] Nivar, MD WBC 18.2 th/cmm High 4.4-10.5 [facility] Comment on above: Performed By: #### L 100.0000, L100.2000, L150.0000 ####Main Laboratory ([facility])[address] [phone] Nivar, MD Erythrocyte Sedimentation Ra raquel 09-14-2023 ESR (Bld) [Velocity] 83 mm/h High <=30 [facility] Comment on above: Performed By: #### L 100.0000, L100.2000, L150.0000 ####Main Laboratory ([facility])[address], [place] [phone] Nivar, MD Ionized Calciumon 09-14-2023 Ionized Calcium 1.06 mmol/L Low 1.15-1.29 [facility] Comment on above: Performed By: #### L 100.0050 #### Main Laboratory ([facility]) [address] [place] [address] Drew Granger MD Lymphocytes/100 WBC Manual c nt (Bld)Ordered By: Troy Garber on 09-14-2023 Lymphocytes/100 WBC (Bld) 13.0 % Low 15-45 [facility] Magnesiumon 09-14-2023 Magnesium [Mass/Vol] 2.2 mg/dL Normal 1.8-2.5 [facility] Comment on above: Performed By: #### L 400.0410 #### Main Laboratory ([facility]) [address] [place] [address] Drew Granger MD Manual Diffon 09-14-2023 Abs Baso Count 0 /cmm Normal 0-200 [facility] Comment on above: Performed By: #### L 100.0000, L100.2000, L150.0000 ####Main Laboratory ([facility])[address], [place] [phone] Nivar, MD Abs Eos Count 0 /cmm Normal 0-500 [facility] Comment on above: Performed By: #### L 100.0000, L100.2000, L150.0000 ####Main Laboratory ([facility])[address], [place] [phone] Nivar, MD Abs Lymph Count 2366 /cmm Normal 9214-0137 [facility] Comment on above: Performed By: #### L 100.0000, L100.2000, L150.0000 ####Main Laboratory ([facility])[address], [place] [phone] Nivar, MD Abs [place] Count 364 /cmm Normal 0-800 [facility] Comment on above: Performed By: #### L 100.0000, L100.2000, L150.0000 ####Main Laboratory ([facility])[address], [place] [phone] Nivar, MD Abs Neut Count 44092 /cmm High 9235-1556 [facility] Comment on above: Performed By: #### L 100.0000, L100.2000, L150.0000 ####Main Laboratory ([facility])[address], [place] [phone] Nivar, MD Bands 4.0 % Normal 2-6 [facility] Comment on above: Performed By: #### L 100.0000, L100.2000, L150.0000 ####Main Laboratory ([facility])[address] [phone] Nivar, MD Lymphocytes 13.0 % Low 15-45 [facility] Comment on above: Performed By: #### L 100.0000, L100.2000, L150.0000 ####Main Laboratory ([facility])[address], [place] [phone] Nivar, MD Monocytes 2.0 % Normal 2-10 [facility] Comment on above: Performed By: #### L 100.0000, L100.2000, L150.0000 ####Main Laboratory ([facility])[address], [place] [phone] Nivar, MD Neutrophils 81.0 % High 40-70 [facility] Comment on above: Performed By: #### L 100.0000, L100.2000, L150.0000 ####Main Laboratory ([facility])[address] [phone] Nivar, MD Target Cells Slight Normal [facility] Comment on above: Performed By: #### L 100.0000, L100.2000, L150.0000 ####Main Laboratory ([facility])[address], [place] [phone] Nivar, MD Monocytes Manual cnt (Bld) [ #/Vol]Ordered By: Troy Garber on 09-14-2023 Monocytes (Bld) [#/Vol] 364 /cmm 0-800 [facility] [place] Neutrophils Manual cnt (Bld) [#/Vol]Ordered By: Troy Garber on 09-14-2023 Neutrophils (Bld) [#/Vol] 15355 /cmm High 5240-4574 [facility] No Panel InformationOrdered By: Troy Garber on 09-14-2023 Ionized Calcium 1.06 mmol/L Low 1.15-1.29 [facility] Osmolality of Serum or Plasm aOrdered By: Troy Garber on 09-14-2023 Osmolality [Osmolality] 294 mOsm 270-300 [facility] [place] Osmolality of UrineOrdered B y: Troy Garber on 09-14-2023 Osmolality (U) [Osmolality] 516 mOsm 50-1400 [facility] Comment on above: On average fluid int lynn: 300-900 mOsm/kgAfter 12-h fluid restriction: >850 mOsm/kg Osmolality, Serumon 09-14-20 23 Osmolality, Serum 294 mOsm Normal 270-300 [facility] Comment on above: Performed By: #### L 400.0059, L400.4800, L404.9000 ####Main Laboratory ([facility])[address] [place], [place] [phone] Nivar, MD Osmolality, Urineon 09-14-20 23 Osmolality, Urine 516 mOsm Normal 50-1400 [facility] Comment on above: Result Comment: On a verage fluid intake: 300-900 mOsm/kg After 12-h fluid restriction: >850 mOsm/kg Performed By: #### L 400.4900 ####Main Laboratory ([facility])[address] [place] [phone] Nivar, MD Parathyroid Hormone,Intacton 09-14-2023 Parathyroid Hormone,Intact 45.6 U/mL Normal 12.0-88.0 [facility] Comment on above: Performed By: #### L 600.6150 #### Main Laboratory ([facility]) [address] [place] [address] Drew Granger MD Potassiumon 09-14-2023 Potassium [Moles/Vol] 3.2 mmol/L Low 3.6-5.0 [facility] Comment on above: Performed By: #### L 400.1500 #### Main Laboratory ([facility]) [address] [place] [address] Drew Granger MD Progress Note - Bo hui 09-14-2023 Progress Note - Hospitalist [facility] Medical Records Patient: GEOVANNY MEJÍA [address] : 1970 [place], [place] [address] Location: [phone] Unit #: [id number] Progress Note - Hospitalist Troy Garber MD [...] Diet Texture: Regular Fluid Restrictions?: No Consult Etl Bi Developer for Oral Supplements/Nourishme nts?: No Discussed Patient's [...] -461.04 -252.36 (more content not included)... Normal [facility] Progress Note Neurosurgeryon 09-14-2023 Progress Note Neurosurgery [facility] Medical Records Patient: GEOVANNY MEJÍA [address] : 1970 [place], [place] [address] Location: [address] [place] [address] Unit #: [id number] Progress Note Neurosurgery Lucy Lara PA-C Service [...] Clemons MD on 09/14/232011 < > Normal [facility] Progress Note Surgicalon Progress Note Surgical [facility] [place] [facility] Medical Records Patient: GEOVANNY MEJÍA [address] : 1970 [place], [place] [address] Location: [phone] Unit #: [id number] Progress Note Surgical Justin Encinas ([facility]) JODIE Service Dt/Tm: 09/14/23 0725 Patient seen [...] Results: 09/14/23 05:23 Images available, please contact [facility] Medical Records 09/14/23 05:23 Images available, please contact [facility] Medical RecordsLaboratory Results - last 24 hr WBC RBC Hgb Hct MCV MCH MCHC RDW Plt Count Neut % (Auto) Lymph % (Auto) [place] % (Auto) Eos % (Auto) WBC RBC Hgb Hct MCV MCH MCHC RDW Plt Count Neut % (Auto) Lymph % (Auto) [place] % (Auto) WBC RBC Hgb Hct MCV MCH MCHC RDW Plt Count Neut % (Auto) Lymph % (Auto) [place] % (Auto) WBC 33.0 H RBC 3.01 [...] Blood Cultu (more content not included)... Normal [facility] Renal Function Panelon 09-14 Albumin [Mass/Vol] 2.6 g/dL Low 3.5-5.0 [facility] Comment on above: Performed By: #### L 400.0410 #### Main Laboratory ([facility]) [address] [place] [address] Drew Granger MD Anion gap [Moles/Vol] 7 mmol/L Normal 4-12 [facility] Comment on above: Performed By: #### L 400.0410 #### Main Laboratory ([facility]) [address] [place] [place] [address] Drew Granger MD Calcium [Mass/Vol] 7.30 mg/dL Low 8.8-10.5 [facility] Comment on above: Performed By: #### L 400.0410 #### Main Laboratory ([facility]) [address] [place] [address] Drew Granger MD Chloride [Moles/Vol] 96 mmol/L Low 101-111 [facility] Comment on above: Performed By: #### L 400.0410 #### Main Laboratory ([facility]) [address] [place] [address] Drew Granger MD CO2 [Moles/Vol] 31 mmol/L Normal 21-32 [facility] Comment on above: Performed By: #### L 400.0410 #### Main Laboratory ([facility]) [address] [place] [address] Drew Granger MD Creatinine [Mass/Vol] 0.68 mg/dL Normal 0.60-1.30 [facility] Comment on above: Performed By: #### L 400.0410 #### Main Laboratory ([facility]) [address] [place] [address] Drew Granger MD GFR Calculation > 60 Normal [facility] Comment on above: Result Comment: Minister Of Religion dontrell Kidney Disease stages by NKDF Stage eGFR I >90 II 60-89 III 30-59 IV 15-29 V <15 or dialysis AGE(years) AVERAGE GFR 50-59 93 ml/min/1.73 square meters Note:This result is normalized to 1.73 square meter body surface area. Height and weight are not factored. Performed By: #### L 400.0410 #### Main Laboratory ([facility]) [address] [place] [address] Drew Granger MD Glucose [Mass/Vol] 111 mg/dL High 70-110 [facility] Comment on above: Performed By: #### L 400.0410 #### Main Laboratory ([facility]) [address] [place] [address] Drew Granger MD Phosphate [Mass/Vol] 3.4 mg/dL Invalid Interpretation Code 2.4-4.7 [facility] Comment on above: Result Comment: Delt a: 2.2 on 09/14/23 Performed By: #### L 400.0410 #### Main Laboratory ([facility]) [address] [place] [address] Drew Granger MD Potassium [Moles/Vol] 2.8 mmol/L Low 3.6-5.0 [facility] Comment on above: Performed By: #### L 400.0410 #### Main Laboratory ([facility]) [address] [place] [address] Drew Granger MD Sodium [Moles/Vol] 134 mmol/L Low 135-145 [facility] Comment on above: Performed By: #### L 400.0410 #### Main Laboratory ([facility]) [address] [place] [address] Drew Granger MD Urea nitrogen [Mass/Vol] 17 mg/dL Normal 7-20 [facility] Comment on above: Performed By: #### L 400.0410 #### Main Laboratory ([facility]) [address] [place], [place] [address] Drew Granger MD Albumin [Mass/Vol] 2.3 g/dL Low 3.5-5.0 [facility] Comment on above: Performed By: #### L 400.0410 #### Main Laboratory ([facility]) [address] [place], [facility] Drew Granger MD Anion gap [Moles/Vol] 7 mmol/L Normal 4-12 [facility] Comment on above: Performed By: #### L 400.0410 #### Main Laboratory ([facility]) [address] [place] [facility] Drew Granger MD Calcium [Mass/Vol] 7.20 mg/dL Low 8.8-10.5 [facility] Comment on above: Performed By: #### L 400.0410 #### Main Laboratory ([facility]) [address] [place], [facility] Drew Granger MD Chloride [Moles/Vol] 98 mmol/L Low 101-111 [facility] Comment on above: Performed By: #### L 400.0410 #### Main Laboratory ([facility]) [address] [place] [address] Drew Granger MD CO2 [Moles/Vol] 27 mmol/L Normal 21-32 [facility] Comment on above: Performed By: #### L 400.0410 #### Main Laboratory ([facility]) [address] [place] [address] Drew Granger MD Creatinine [Mass/Vol] 0.57 mg/dL Low 0.60-1.30 [facility] Comment on above: Performed By: #### L 400.0410 #### Main Laboratory ([facility]) [address] [place] [address] Drew Granger MD GFR Calculation > 60 Normal [facility] Comment on above: Result Comment: Minister Of Religion dontrell Kidney Disease stages by NKDF Stage eGFR I >90 II 60-89 III 30-59 IV 15-29 V <15 or dialysis AGE(years) AVERAGE GFR 50-59 93 ml/min/1.73 square meters Note:This result is normalized to 1.73 square meter body surface area. Height and weight are not factored. Performed By: #### L 400.0410 #### Main Laboratory ([facility]) [address] [place] [address] Drew Granger MD Glucose [Mass/Vol] 146 mg/dL High 70-110 [facility] Comment on above: Performed By: #### L 400.0410 #### Main Laboratory ([facility]) [address] [place] [address] Drew Granger MD Phosphate [Mass/Vol] 2.2 mg/dL Low 2.4-4.7 [facility] Comment on above: Result Comment: Delt a: 4.5 on 09/13/23 Performed By: #### L 400.0410 #### Main Laboratory ([facility]) [address] [place] [address] Drew Granger MD Potassium [Moles/Vol] 3.1 mmol/L Low 3.6-5.0 [facility] Comment on above: Performed By: #### L 400.0410 #### Main Laboratory ([facility]) [address] [place] [address] Drew Granger MD Sodium [Moles/Vol] 132 mmol/L Low 135-145 [facility] Comment on above: Performed By: #### L 400.0410 #### Main Laboratory ([facility]) [address] [place] [address] Drew Granger MD Urea nitrogen [Mass/Vol] 17 mg/dL Normal 7-20 [facility] Comment on above: Performed By: #### L 400.0410 #### Main Laboratory ([facility]) [address] [place] [address] Drew Granger MD Serum or plasma folate measu rement (mass/volume)Ordered By: Troy Garber on 09-14-2023 Folate [Mass/Vol] 10.5 ng/mL >5.9 [facility] Serum or plasma intact parat hyroid hormone (iPTH) measurement (mass/volume)Ordered By: Troy Garber on 09-14-2023 Parathyrin.intact [Mass/Vol] 45.6 U/mL 12.0-88.0 [facility] Serum or plasma total combin ed vitamin D and metabolites measurement (mass/volume)Ordered By: Troy Garber on 09-14-2023 Vitamin D+Metabolites [Mass/Vol] 14.30 ng/mL Low 30.00-100.00 [facility] Comment on above: Optimal values are e stablished by the Clinical Guidelines Subcommittee of the Endocrine Society Task Force. (Journal of Clinical Endocrinology & Metabolism,2011;96)Status Vitamin D Concentration Range------- Deficient <20Insufficient 20 - 30Sufficient 30 - 100 Serum or plasma vitamin B12 measurement (mass/volume)Ordered By: Troy Garber on 09-14-2023 Cobalamin (Vitamin B12) [Mass/Vol] 883 pg/mL 180-914 [facility] Comment on above: B12 level of 145 - 1 80 is considered Indeterminate and level of <145 is considered Deficient. Vitamin B12 and Folateon Cobalamin (Vitamin B12) [Mass/Vol] 883 pg/mL Normal 180-914 [facility] Comment on above: Result Comment: B12 level of 145 - 180 is considered Indeterminate and level of <145 is considered Deficient. Performed By: #### L 400.0059, L400.4800, L404.9000 ####Main Laboratory ([facility])[address], [place] [phone] Nivar, MD Folate (Folic Acid) 10.5 ng/mL Normal >5.9 [facility] Comment on above: Performed By: #### L 400.0059, L400.4800, L404.9000 ####Main Laboratory ([facility])[address], [place] [phone] Nivar, MD Vitamin D,25-hydroxy (Total) on 09-14-2023 25(OH) Vitamin D,Total 14.30 ng/mL Low 30.00-100.00 [facility] Comment on above: Result Comment: Opti mal values are established by the Clinical Guidelines Subcommittee of the Endocrine Society Task Force. (Journal of Clinical Endocrinology & Metabolism,2011;96) Status Vitamin D Concentration Range ------- Deficient <20 Insufficient 20 - 30 Sufficient 30 - 100 Performed By: #### L 400.0065 ####Main Laboratory ([facility])[address], [place] [phone] Nivar, MD Anesthesia Pre-Op Evaluation on 09-13-2023 Anesthesia Pre-Op Evaluation [facility] Medical Records Patient: GEOVANNY MEJÍA [address] 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 Normal [facility] Atherectomy of brachiocephal ic arteryOrdered By: Troy Garber on 09-13-2023 Atherectomy of brachiocephalic artery * [facility] Comment on above: Absolute granulocyto sis consistent with response toinfection, toxins, tissue injury, stresses or hemorrhage.Hypochromic, microcytic anemia with high RDWconsistent with iron deficiency. Suggest iron studies.Slide reviewed by Dr Krunal BESS on 09/15/23. Bacteria identified Cx Nom ( Wound)Ordered By: Alec Clemons on 09-13-2023 Wound Culture Staphylococcus aureus Abnormal [facility] Bacterial blood cultureOrder ed By: Jaret Ramírez (ID) on 09-13-2023 Bacteria identified Cx Nom (Bld) No growth after 5 days. [facility] Bacteria identified Cx Nom (Bld) No growth after 5 days. [facility] Basic Metabolic,Non-Fastingo n 09-13-2023 Anion gap [Moles/Vol] 8 mmol/L Normal 4-12 [facility] Comment on above: Performed By: #### L 400.0152, L400.5100 ####Main Laboratory ([facility])[address] [phone] Nivar, MD Calcium [Mass/Vol] 7.60 mg/dL Low 8.8-10.5 [facility] Comment on above: Performed By: #### L 400.0152, L400.5100 ####Main Laboratory ([facility])[address] [phone] Nivar, MD Chloride [Moles/Vol] 95 mmol/L Low 101-111 [facility] Comment on above: Performed By: #### L 400.0152, L400.5100 ####Main Laboratory ([facility])[address] [phone] Nivar, MD CO2 [Moles/Vol] 26 mmol/L Normal 21-32 [facility] Comment on above: Performed By: #### L 400.0152, L400.5100 ####Main Laboratory ([facility])[address] [place] [phone] Nivar, MD Creatinine [Mass/Vol] 0.74 mg/dL Normal 0.60-1.30 [facility] Comment on above: Performed By: #### L 400.0152, L400.5100 ####Main Laboratory ([facility])[address] [place] [phone] Nivar, MD GFR Calculation > 60 Normal [facility] Comment on above: Result Comment: Minister Of Religion dontrell Kidney Disease stages by NKDF Stage eGFR I >90 II 60-89 III 30-59 IV 15-29 V <15 or dialysis AGE(years) AVERAGE GFR 50-59 93 ml/min/1.73 square meters Note:This result is normalized to 1.73 square meter body surface area. Height and weight are not factored. Performed By: #### L 400.0152, L400.5100 ####Main Laboratory ([facility])[address] [phone] Nivar, MD Glucose [Mass/Vol] 189 mg/dL High 70-110 [facility] Comment on above: Performed By: #### L 400.0152, L400.5100 ####Main Laboratory ([facility])[address] [phone] Nivar, MD Potassium [Moles/Vol] 3.8 mmol/L Normal 3.6-5.0 [facility] Comment on above: Performed By: #### L 400.0152, L400.5100 ####Main Laboratory ([facility])[address] [phone] Nivar, MD Sodium [Moles/Vol] 129 mmol/L Low 135-145 [facility] Comment on above: Performed By: #### L 400.0152, L400.5100 ####Main Laboratory ([facility])[address] [phone] Nivar, MD Urea nitrogen [Mass/Vol] 21 mg/dL High 7-20 [facility] Comment on above: Performed By: #### L 400.0152, L400.5100 ####Main Laboratory ([facility])[address] [phone] Nivar, MD Body fluid cult/smr aer/anao n [...] hoxazole <=10 S Vancomycin <=0.5 S Normal [facility] Comment on above: Performed By: #### M 140.0200 #### Main Laboratory ([facility]) [address] [place] [address] Drew Granger MD C-Reactive Proteinon 023 C-Reactive Protein 15.9 mg/dL High <1.0 [facility] Comment on above: Performed By: #### M 110.0050 #### Main Laboratory ([facility]) [address] [place] [address] Drew Granger MD CBC with Differentialon 08-25 Abs Baso Count 0 /cmm Normal 0-200 [facility] Comment on above: Performed By: #### L 100.1999, L100.0000 #### Main Laboratory ([facility]) [address] [place] [address] Drew Granger MD Abs Eos Count 0 /cmm Normal 0-500 [facility] Comment on above: Performed By: #### L 100.1999, L100.0000 #### Main Laboratory ([facility]) [address] [place] [address] Drew Granger MD Abs Lymph Count 1000 /cmm Normal 6095-4649 [facility] Comment on above: Performed By: #### L 100.1999, L100.0000 #### Main Laboratory ([facility]) [address] [place] [address] Drew Granger MD Abs [place] Count 500 /cmm Normal 0-800 [facility] Comment on above: Performed By: #### L 100.1999, L100.0000 #### Main Laboratory ([facility]) [address] [place] [address] Drew Granger MD Abs Neut Count 64491 /cmm High 9781-4379 [facility] Comment on above: Performed By: #### L 100, L100.0000 #### Main Laboratory ([facility]) [address] [place], [facility] Drew Granger MD Basophils/100 WBC (Bld) 0.1 % Normal 0-2 [facility] [place] Comment on above: Performed By: #### L , L100.0000 #### Main Laboratory ([facility]) [address] [place], [facility] Drew Granger MD EOS-Auto Diff 0.0 % Normal 0-6 [facility] Comment on above: Performed By: #### L , L100.0000 #### Main Laboratory ([facility]) [address] [place] [address] Drew Granger MD Lymphocytes/100 WBC (Bld) 2.9 % Low 15-45 [facility] Comment on above: Performed By: #### L , L100.0000 #### Main Laboratory ([facility]) [address] [place], [facility] Drew Granger MD [place]- Auto Diff 1.4 % Low 2-10 [facility] Comment on above: Performed By: #### L 100, L100.0000 #### Main Laboratory ([facility]) [address] [place] [address] Drew Granger MD Neut-Auto Diff 95.6 % High 40-70 [facility] Comment on above: Performed By: #### L 100, L100.0000 #### Main [facility] ([facility]) [address] [place], [facility] Drew Granger MD NRBC-Auto 0.0 /100 WBC Normal <1 [facility] Comment on above: Performed By: #### L , L100.0000 #### Main Laboratory ([facility]) [address] [place] [address] Drew Granger MD Erythrocyte distribution width (RBC) [Ratio] 16.1 % High 12.0-16.0 [facility] Comment on above: Performed By: #### L , L100.0000 #### Main Laboratory ([facility]) [address] [place] [address] Drew Granger MD Hematocrit (Bld) [Volume fraction] 25.8 % Low 35.0-44.0 [facility] Comment on above: Performed By: #### L , L100.0000 #### Main Laboratory ([facility]) [address] [place], [place] [address] Drew Granger MD Hemoglobin (Bld) [Mass/Vol] 8.5 g/dL Low 12.0-15.0 [facility] Comment on above: Performed By: #### L , L100.0000 #### Main Laboratory ([facility]) [address] [place] [address] Drew Granger MD MCH (RBC) [Entitic mass] 28.2 pg Normal 27.5-33.0 [facility] Comment on above: Performed By: #### L , L100.0000 #### Main Laboratory ([facility]) [address] [place] [address] Drew Granger MD MCHC (RBC) [Mass/Vol] 32.9 g/dL Low 33.0-36.0 [facility] Comment on above: Performed By: #### L , L100.0000 #### Main Laboratory ([facility]) [address] [place] [address] Drew Granger MD MCV 85.6 CU [place] Normal 80-97 [facility] Comment on above: Performed By: #### L 100.1999, L100.0000 #### Main Laboratory ([facility]) [address] [place] [address] Drew Granger MD Platelet Count 289 th/cmm Normal 150-400 [facility] Comment on above: Performed By: #### L 100.1999, L100.0000 #### Main Laboratory ([facility]) [address] [place] [address] Drew Granger MD RBC 3.01 mil/cmm Low 4.00-5.10 [facility] Comment on above: Performed By: #### L , L100.0000 #### Main [facility] ([facility]) [address] [place] [address] Drew Granger MD WBC 33.0 th/cmm High 4.4-10.5 [facility] Comment on above: Performed By: #### L , L100.0000 #### Main [facility] ([facility]) [address] [place] [address] Drew Granger MD Erythrocyte Sedimentation Ra raquel 09-13-2023 ESR (Bld) [Velocity] 98 mm/h High <=30 [facility] Comment on above: Performed By: #### L 600.6150 #### Main [facility] ([facility]) [address] [place] [address] Drew Granger MD Gram stain microscopyOrdered By: Alec Clemons on 09-13-2023 Microscopic observation Gram stain Nom (Unsp spec) [facility] MRI Thoracic Spine w/o Contr ason 09-13-2023 MRI Thoracic Spine w/o Contras [facility] Radiology Department Patient: GEOVANNY MEJÍA [address] : 1970 Sex: [place] [address] Location: [phone] Unit #: [id number] Ordering Phys: Alec Clemons MD Exam Date: 09/13/23 Exam: MRI MRI Thoracic Spine w/o Contras Result: See Report ADDENDUM: ADDENDUM [id number] On review of the images, there appear [...] Report Signed by: Carolin Bhatia MD on 09/25/236 [id number] STUDY: MRI THORACIC SPINE WITHOUT CONTRAST REASON [...] Signed: Carolin Bhatia MD at 4:40 EDT , cc: Alec Clemons MD; None Dictated by: Carolin Bhatia MD on 09/13/23439 Transcribed by: Carolin Bhatia on 09/13/23439 Report Signed by: Carolin Bhatia MD on 09/13/23439 Normal [facility] Magnesiumon 09-13-2023 Magnesium [Mass/Vol] 2.3 mg/dL Normal 1.8-2.5 [facility] Comment on above: Performed By: #### M 110.0050 #### Main Laboratory ([facility]) [address] [place] [address] Drew Granger MD Magnesium [Mass/Vol] 2.3 mg/dL Normal 1.8-2.5 [facility] Comment on above: Performed By: #### L 400.0152, L400.5100 ####Main [facility] ([facility])[address], [place] [phone] Nivar, MD No Panel InformationOrdered By: Jaret Ramírez (ID) on 09-13-2023 Test not indicated [facility] Test not indicated [facility] Operative Reporton Operative Report [facility] Medical Records Patient: GEOVANNY MEJÍA [address] : 1970 [place], [place] [address] Location: [phone] Unit #: [id number] Operative Report Alec Clemons MD Operative Report DATE OF OPERATION: 09/13/23 PRE-OPERATIVE DIAGNOSES: Spinal epidural abscess POST-OPERATIVE DIAGNOSES: Thoracic spinal epidural abscess OPERATION PERFORMED: Hemilaminectomy T4-5 with evacuation of dorsal spinal epidural abscess; hemilaminectomy with transpedicular decompression T10 on the left side with evacuation of ventral spinal epidural abscess SURGEON: Alec Clemons MD CRIB PAD MAKER: Lucy Lara PA-C; she participated in all [...] and 11 on the left side. The [id number] technique was utilized to decompress the ventral [...] cc: Alec Clemons MD; None Dictated by: Aelc Clemons MD on 09/13/231503 Entered by: Alec Clemons MD on 09/13/231503 Report Signed by: Alec Clemons MD on 09/13/231510 < > Report Signed by: on Normal [facility] Platelet poor plasma interna tional normalized ratio (INR)Ordered By: Alec Clemons on 09-13-2023 INR Coag (PPP) [Relative time] 1.59 {INR} High 0.9-1.2 [facility] Comment on above: Standard dose INR: 2 .0-3.0High dose INR: 2.5-3.5 Prealbuminon 09-13-2023 Prealbumin [Mass/Vol] 5.0 mg/dL Low 16.0-38.0 [facility] Comment on above: Performed By: #### M 110.0050 #### Main Laboratory ([facility]) [address] [place] [address] Drew Granger MD Procalcitoninon 09-13-2023 Procalcitonin 0.74 ng/mL High [facility] Comment on above: Result Comment: Susp ected [...] procalcitonin elevations. *Selin et al., Lancet 2010;375: DOI:10.1016/G0260-2338 (75)42919-1 *Will Fuchs et al., [employer] Med 2011;171:1794-1567 Performed By: #### M 110.0050 #### Main Laboratory ([facility]) [address] [place] [address] Drew Granger MD [facility] 09-13-2023 Progress Note - Hospitalist [facility] Medical Records Patient: GEOVANNY MEJÍA [address] : 1970 [place], [place] [address] Location: [facility] [phone] Unit #: [id number] Progress Note - Hospitalist Troy Garber MD [...] Diet Texture: Regular Fluid Restrictions?: No Consult Etl Bi Developer for Oral Supplements/Nourishme nts?: No Discussed Patient's [...] Pharynx Normal (more content not included)... Normal [facility] Progress Note Surgicalon Progress Note Surgical [facility] [place] [facility] Medical Records Patient: GEOVANNY MEJÍA [address] : 1970 [place] [address] Location: [phone] Unit #: [id number] Progress Note Surgical Justin Encinas ([facility]) JODIE Service Dt/Tm: 09/13/23 1030 Patient seen [...] Results: 09/13/23 08:51 Images available, please contact [facility] Medical Records 09/13/23 08:51 Images available, please contact [facility] Medical RecordsLaboratory Results - last 24 hr [...] Justin Moreno (more content not included)... Normal [facility] Prothrombin Timeon 3 INR Coag (PPP) [Relative time] 1.59 {INR} High 0.9-1.2 [facility] Comment on above: Result Comment: Petr dard dose INR: 2.0-3.0 High dose INR: 2.5-3.5 Performed By: #### L 200.0200 ####Main Laboratory ([facility])[address] [phone] Nivar, MD PT Coag (PPP) [Time] 18.5 s High 9.6-13.3 [facility] Comment on above: Performed By: #### L 200.0200 ####Main Laboratory ([facility])[address] [phone] Nivar, MD Prothrombin time (PT) in dylan telet poor plasma by coagulation assayOrdered By: Alec Clemons on 09-13-2023 PT Coag (PPP) [Time] 18.5 s High 9.6-13.3 [facility] RBC Morphologyon 09-13-2023 Target Cells Slight Normal [facility] Comment on above: Performed By: #### L 600.6150 #### Main Laboratory ([facility]) [address] [place] [address] Drew Granger MD Renal Function Panelon 09-13 Albumin [Mass/Vol] 2.7 g/dL Low 3.5-5.0 [facility] Comment on above: Performed By: #### M 110.0050 #### Main Laboratory ([facility]) [address] [place] [address] Drew Granger MD Anion gap [Moles/Vol] 9 mmol/L Normal 4-12 [facility] Comment on above: Performed By: #### M 110.0050 #### Main Laboratory ([facility]) [address] [place] [address] Drew Granger MD Calcium [Mass/Vol] 7.60 mg/dL Low 8.8-10.5 [facility] Comment on above: Performed By: #### M 110.0050 #### Main Laboratory ([facility]) [address] [place] [address] Drew Granger MD Chloride [Moles/Vol] 95 mmol/L Low 101-111 [facility] Comment on above: Performed By: #### M 110.0050 #### Main Laboratory ([facility]) [address] [place] [address] Drew Granger MD CO2 [Moles/Vol] 26 mmol/L Normal 21-32 [facility] Comment on above: Performed By: #### M 110.0050 #### Main Laboratory ([facility]) [address] [place] [address] Drew Granger MD Creatinine [Mass/Vol] 0.72 mg/dL Normal 0.60-1.30 [facility] Comment on above: Performed By: #### M 110.0050 #### Main Laboratory ([facility]) [address] [place] [address] Drew Granger MD GFR Calculation > 60 Normal [facility] Comment on above: Result Comment: [facility] dontrell Kidney Disease stages by NKDF Stage eGFR I >90 II 60-89 III 30-59 IV 15-29 V <15 or dialysis AGE(years) AVERAGE GFR 50-59 93 ml/min/1.73 square meters Note:This result is normalized to 1.73 square meter body surface area. Height and weight are not factored. Performed By: #### M 110.0050 #### Main Laboratory ([facility]) [address] [place] [address] Drew Granger MD Glucose [Mass/Vol] 189 mg/dL High 70-110 [facility] Comment on above: Performed By: #### M 110.0050 #### Main Laboratory ([facility]) [address] [place] [address] Drew Granger MD Phosphate [Mass/Vol] 4.5 mg/dL Normal 2.4-4.7 [facility] Comment on above: Performed By: #### M 110.0050 #### Main Laboratory ([facility]) [address] [place] [address] Drew Granger MD Potassium [Moles/Vol] 3.8 mmol/L Normal 3.6-5.0 [facility] Comment on above: Performed By: #### M 110.0050 #### Main Laboratory ([facility]) [address] [place] [id number] Drew Granger MD Sodium [Moles/Vol] 130 mmol/L Low 135-145 [facility] Comment on above: Performed By: #### M 110.0050 #### Main Laboratory ([facility]) [address] [place] [address] Drew Granger MD Urea nitrogen [Mass/Vol] 21 mg/dL High 7-20 [facility] Comment on above: Performed By: #### M 110.0050 #### Main Laboratory ([facility]) [address] [place] [address] Drew Granger MD Serum or plasma prealbumin m easurement (mass/volume)Ordered By: Troy Garber on 09-13-2023 Prealbumin [Mass/Vol] 5.0 mg/dL Low 16.0-38.0 [facility] Serum or plasma vancomycin m easurement (mass/volume)Ordered By: Hugo French on 09-13-2023 Vancomycin [Mass/Vol] 6.0 mcg/mL Low 15.0-40.0 [facility] Serum procalcitonin measurem entOrdered By: Troy Garber on 09-13-2023 Procalcitonin [Mass/Vol] 0.74 ng/mL High <0.50 [facility] Comment on above: Suspected Sepsis (Co ntinue [...] procalcitonin elevations. *Selin et al., Lancet 2010;375: DOI:10.1016/B8195-8485 ([phone] *Will Fuchs et al., [employer] Med 2011;171:1353-1042 Status Note/Updateon 023 Status Note/Update [facility] Medical Records Patient: GEOVANNY MEJÍA [address] : 1970 [place] [address] Location: [facility] [phone] Unit #: [id number] Status Note/Update Alec Clemons MD Service Dt/Tm: 09/13/23 0214 Note: GEOVANNY MEJÍA is a 53 yr [...] necessary levels potentially T10-T12 Entered by: Alec lCemons MD on 09/13/23213 Report Signed by: Alec Clemons MD on 09/13/23216 < > Report Signed by: on Normal [facility] Type and Screen(No Crossmatc h)on 09-13-2023 AB Screen (IAT) Negative Normal [facility] Comment on above: Performed By: #### L 600.6150 #### Main Laboratory ([facility]) [address] [place] [address] Drew Granger MD ABO and Rh group Nom (Bld) Blood group O Rh(D) positive Normal [facility] Comment on above: Performed By: #### L 600.6150 #### Main Laboratory ([facility]) [address] [place] [address] Drew Granger MD US OR Tech Time 15 minson US OR Tech Time 15 mins [facility] Radiology Department Patient: GEOVANNY MEJÍA [address] : 1970 Sex: Belinda [place] [address] Location: [address] [place] [address] [facility] #: [id number] [id number] Ordering Phys: Alec Clemons MD Exam Date: 09/13/23 Exam: US US OR Tech Time 15 mins Result: See Report [id number] INDICATION: low back pain/weakness EXAMINATION: Ultrasound US [...] Flor Haider on 09/13/23922 Report Signed by: Vitaly MEJÍA,Rey Cole on 09/13/23922 Normal [facility] Vancomycin Random (AUC)on Vancomycin Random (AUC) 6.0 mcg/mL Low 15.0-40.0 [facility] [place] Comment on above: Performed By: #### L 600.6150 ####Main Laboratory ([facility])[address], [place] [phone] Nivar, MD XR Lumbar Spine 1 Viewon XR Lumbar Spine 1 View [facility] Radiology Department Patient: GEOVANNY MEJÍA [address] : 1970 Sex: Belinda [place] [address] Location: [phone] Unit #: [id number] [facility] [id number] Ordering Phys: Alec Clemons MD Exam Date: 09/13/23 Exam: MAIN XR Lumbar Spine 1 View Result: See Report [id number] STUDY: X-RAY -lumbar SPINE REASON FOR EXAM: [...] Anthony Guevara MD ([facility]) at 17:10 EDT , cc: Alec Clemons MD; None Dictated by: Freddy Guevara MD on 09/13/231709 Transcribed by: Freddy Guevara on 09/13/231709 Report Signed by: Ismael MEJÍA,Freddy Nielsen on 09/13/231709 Normal [facility] Basic Metabolic Panel,Fastin nivia 09-12-2023 Anion gap [Moles/Vol] 10 mmol/L Normal 4-12 [facility] Comment on above: Performed By: #### L 400.0202, L400.5100 ####Main Laboratory ([facility])[address], [place] [phone] Nivar, MD Calcium [Mass/Vol] 7.60 mg/dL Low 8.8-10.5 [facility] Comment on above: Performed By: #### L 400.0202, L400.5100 ####Main Laboratory ([facility])[address] [phone] Nivar, MD Chloride [Moles/Vol] 97 mmol/L Low 101-111 [facility] Comment on above: Performed By: #### L 400.0202, L400.5100 ####Main Laboratory ([facility])[address] [phone] Nivar, MD CO2 [Moles/Vol] 25 mmol/L Normal 21-32 [facility] Comment on above: Performed By: #### L 400.0202, L400.5100 ####Main Laboratory ([facility])[address], [place] [phone] Nivar, MD Creatinine [Mass/Vol] 0.57 mg/dL Low 0.60-1.30 [facility] Comment on above: Performed By: #### L 400.0202, L400.5100 ####Main Laboratory ([facility])[address] [phone] Nivar, MD GFR Calculation > 60 Normal [facility] Comment on above: Result Comment: [employer] dontrell Kidney Disease stages by NKDF Stage eGFR I >90 II 60-89 III 30-59 IV 15-29 V <15 or dialysis AGE(years) AVERAGE GFR 50-59 93 ml/min/1.73 square meters Note:This result is normalized to 1.73 square meter body surface area. Height and weight are not factored. Performed By: #### L 400.0202, L400.5100 ####Main Laboratory ([facility])[address] [place] [phone] Nivar, MD Glucose [Mass/Vol] 88 mg/dL Normal 70-110 [facility] Comment on above: Performed By: #### L 400.0202, L400.5100 ####Main Laboratory ([facility])[address] [place] [phone] Nivar, MD Potassium [Moles/Vol] 3.6 mmol/L Normal 3.6-5.0 [facility] Comment on above: Performed By: #### L 400.0202, L400.5100 ####Main Laboratory ([facility])[address] [place] [phone] Nivar, MD Sodium [Moles/Vol] 132 mmol/L Low 135-145 [facility] Comment on above: Performed By: #### L 400.0202, L400.5100 ####Main Laboratory ([facility])[address], [place] [phone] Nivar, MD Urea nitrogen [Mass/Vol] 17 mg/dL Normal 7-20 [facility] Comment on above: Performed By: #### L 400.0202, L400.5100 ####Main Laboratory ([facility])[address] [phone] Nivar, MD CBC Without Differentialon Erythrocyte distribution width (RBC) [Ratio] 16.0 % Normal 12.0-16.0 [facility] Comment on above: Performed By: #### L 100.0050 #### Main Laboratory ([facility]) [address] [place] [address] Drew Granger MD Hematocrit (Bld) [Volume fraction] 29.6 % Low 35.0-44.0 [facility] Comment on above: Performed By: #### L 100.0050 #### Main Laboratory ([facility]) [address] [place] [address] Drew Granger MD Hemoglobin (Bld) [Mass/Vol] 9.8 g/dL Low 12.0-15.0 [facility] Comment on above: Performed By: #### L 100.0050 #### Main Laboratory ([facility]) [address] [place] [address] Drew Granger MD MCH (RBC) [Entitic mass] 28.0 pg Normal 27.5-33.0 [facility] Comment on above: Performed By: #### L 100.0050 #### Main Laboratory ([facility]) [address] [place] [address] Drew Granger MD MCHC (RBC) [Mass/Vol] 33.0 g/dL Normal 33.0-36.0 [facility] Comment on above: Performed By: #### L 100.0050 #### Main Laboratory ([facility]) [address] [place], [place] [address] Drew Granger MD MCV 84.8 CU [place] Normal 80-97 [facility] Comment on above: Performed By: #### L 100.0050 #### Main Laboratory ([facility]) [address] [place] [address] Drew Granger MD Platelet Count 241 th/cmm Normal 150-400 [facility] Comment on above: Performed By: #### L 100.0050 #### Main Laboratory ([facility]) [address] [place] [address] Drew Granger MD RBC 3.49 mil/cmm Low 4.00-5.10 [facility] Comment on above: Performed By: #### L 100.0050 #### Main Laboratory ([facility]) [address] [place] [address] Drew Granger MD WBC 31.4 th/cmm High 4.4-10.5 [facility] Comment on above: Performed By: #### L 100.0050 #### Main Laboratory ([facility]) [address] [place] [address] Lumbar Spine W/O Cont [id number] 31on 09-12-2023 CT Lumbar Spine W/O Cont [id number] [facility] Radiology Department Patient: GEOVANNY MEJÍA [address] : 1970 Sex: [place]inda [place] [address] Location: [phone] Unit #: [id number] Ordering Phys: Craig Michael DO Exam Date: 09/12/23 Exam: CT CT Lumbar Spine W/O Cont [id number] Result: See Report [id number] EXAM: CT LUMBAR SPINE WITHOUT INTRAVENOUS CONTRAST [...] reconstruction technique. This report was created using [employer] report generation technology. COMPARISON: CT 09/10/2023 FINDINGS: [...] 12:07 EDT Reading Location ID and State: [address] [place] [address] , Service support , cc: Craig Rodriguez DO; None Dictated by: Freddy Guevara MD on 09/12/231206 Transcribed by: Freddy Guevara on 09/12/231206 Report Signed by: Ismael MEJÍA,Freddy Nielsen on 09/12/231206 Normal [facility] Ionized Calciumon 09-12-2023 Ionized Calcium 1.07 mmol/L Low 1.15-1.29 [facility] Comment on above: Performed By: #### L 100.0050 #### Main Laboratory ([facility]) [address] [place] [address] Drew Granger MD MRI Lumbar Spine w/wo Contro n 09-12-2023 MRI Lumbar Spine w/wo Contr [facility] Radiology Department Patient: GEOVANNY MEJÍA. : 1970 Sex: [place] [address] Location: [phone] Unit #: [id number] Ordering Phys: Craig Rodriguez DO Exam Date: 09/12/23 Exam: MRI MRI Lumbar Spine w/wo Contr Result: See Report [id number] INDICATION: CHRONIC LOW BACK PAIN WITH SCIATICA, [...] Signed: Alec Sen DO at 0:34 EDT Reading Location ID and State: [facility] / [place] Tel , Service support , cc: Craig Rodriguez DO; None Dictated by: Alec Sen DO on 09/13/2333 Transcribed by: Alec Sen DO on 09/13/2333 Report Signed by: Alec Sen DO on 09/13/2333 Normal [facility] Magnesiumon 09-12-2023 Magnesium [Mass/Vol] 2.2 mg/dL Normal 1.8-2.5 [facility] Comment on above: Performed By: #### L 400.0202, L400.5100 ####Main Laboratory ([facility])[address], [place] [phone] Nivar, MD Progress Note - Hospitalisttheodore hui 09-12-2023 Progress Note - Hospitalist [facility] Medical Records Patient: GEOVANNY MEJÍA [address] 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 Normal [facility] Serum or plasma fasting gluc ose measurement (mass/volume)Ordered By: Willy Lechuga on 09-12-2023 Glucose post fast [Mass/Vol] 88 mg/dL 70-110 [facility] Basic Metabolic Panel,Fastin nivia 09-11-2023 Anion gap [Moles/Vol] 11 mmol/L Normal 4-12 [facility] Comment on above: Performed By: #### L 100.1999, L100.0000 #### Main Laboratory ([facility]) [address] [place] [address] Drew Granger MD Calcium [Mass/Vol] 7.50 mg/dL Low 8.8-10.5 [facility] Comment on above: Performed By: #### L 100, L100.0000 #### Main Laboratory ([facility]) [address] [place] [address] Drew Granger MD Chloride [Moles/Vol] 98 mmol/L Low 101-111 [facility] Comment on above: Performed By: #### L 100, L100.0000 #### Main Laboratory ([facility]) [address] [place] [address] Drew Granger MD CO2 [Moles/Vol] 23 mmol/L Normal 21-32 [facility] Comment on above: Performed By: #### L 100, L100.0000 #### Main Laboratory ([facility]) [address] [place] [address] Drew Granger MD Creatinine [Mass/Vol] 0.55 mg/dL Low 0.60-1.30 [facility] Comment on above: Performed By: #### L 100.1999, L100.0000 #### Main Laboratory ([facility]) [address] [place] [address] Drew Granger MD GFR Calculation > 60 Normal [facility] Comment on above: Result Comment: [facility] dontrell Kidney Disease stages by NKDF Stage eGFR I >90 II 60-89 III 30-59 IV 15-29 V <15 or dialysis AGE(years) AVERAGE GFR 50-59 93 ml/min/1.73 square meters Note:This result is normalized to 1.73 square meter body surface area. Height and weight are not factored. Performed By: #### L , L100.0000 #### Main Laboratory ([facility]) [address] [place] [address] Drew Granger MD Glucose [Mass/Vol] 83 mg/dL Normal 70-110 [facility] Comment on above: Performed By: #### L , L100.0000 #### Main Laboratory ([facility]) [address] [place] [address] Drew Granger MD Potassium [Moles/Vol] 3.7 mmol/L Normal 3.6-5.0 [facility] Comment on above: Performed By: #### L , L100.0000 #### Main Laboratory ([facility]) [address] [place] [address] Drew Granger MD Sodium [Moles/Vol] 132 mmol/L Low 135-145 [facility] Comment on above: Performed By: #### L , L100.0000 #### Main Laboratory ([facility]) [address] [place] [address] Drew Granger MD Urea nitrogen [Mass/Vol] 15 mg/dL Normal 7-20 [facility] Comment on above: Performed By: #### L , L100.0000 #### Main Laboratory ([facility]) [address] [place] [address] Drew Granger MD Blood Cultureon 09-11-2023 Bacteria identified Cx Nom (Bld) STAPH EPI recovered from one set of 2 sets. Isolation does not necessarily mean infection. If definitive ID and sensitivity is needed, call the microbiology department at extension [phone]. Isolate will be retained for seven days. ORGANISM 1: Staphylococcus aureus Growth from the aerobic and anaerobic blood culture bottle For MILKA results, see culture collected 09/08/23 [id number] ORGANISM 2: Staphylococcus epidermidis Growth from the aerobic blood culture bottle [facility] Comment on above: Performed By: #### M 110.0050 #### Main Laboratory ([facility]) [address] [place], [place] [address] [address] Drew Granger MD Bacteria identified Cx Nom [...] read back by Ryanne Taylor RN (by JON at 0530, 09/09/23) ORGANISM 1: Staphylococcus aureus Growth from the aerobic and anaerobic blood culture bottle Staphylococcus aureus: REACTION Clindamycin <=0.25 S Erythromycin <=0.25 S Gentamicin <=0.5 S Linezolid 2 S Moxifloxacin <=0.25 S Levofloxacin 0.25 S Oxacillin 0.5 S Penicillin >=0.5 R Rifampin <=0.5 S Tetracycline <=1 S Trimethoprim/Sulfamet hoxazole <=10 S Vancomycin <=0.5 S Normal [facility] Comment on above: Performed By: #### L 400.0410 #### Main Laboratory ([facility]) [address] [place] [address] Drew Granger MD CBC Without Differentialon Erythrocyte distribution width (RBC) [Ratio] 16.1 % High 12.0-16.0 [facility] Comment on above: Performed By: #### L , L100.0000 #### Main Laboratory ([facility]) [address] [place] [address] Drew Granger MD Hematocrit (Bld) [Volume fraction] 30.1 % Low 35.0-44.0 [facility] Comment on above: Performed By: #### L , L100.0000 #### Main Laboratory ([facility]) [address] [place] [address] Drew Granger MD Hemoglobin (Bld) [Mass/Vol] 9.8 g/dL Low 12.0-15.0 [facility] Comment on above: Performed By: #### L , L100.0000 #### Main Laboratory ([facility]) [address] [place] [address] Drew Granger MD MCH (RBC) [Entitic mass] 27.7 pg Normal 27.5-33.0 [facility] Comment on above: Performed By: #### L , L100.0000 #### Main Laboratory ([facility]) [address] [place] [address] Drew Granger MD MCHC (RBC) [Mass/Vol] 32.6 g/dL Low 33.0-36.0 [facility] Comment on above: Performed By: #### L 100.1999, L100.0000 #### Main Laboratory ([facility]) [address] [place] [address] Drew Granger MD MCV 84.9 CU [place] Normal 80-97 [facility] Comment on above: Performed By: #### L 100.1999, L100.0000 #### Main Laboratory ([facility]) [address] [place] [address] Drew Granger MD Platelet Count 180 th/cmm Normal 150-400 [facility] Comment on above: Performed By: #### L 100.1999, L100.0000 #### Main Laboratory ([facility]) [address] [place] [address] Drew Granger MD RBC 3.54 mil/cmm Low 4.00-5.10 [facility] Comment on above: Performed By: #### L 100.1999, L100.0000 #### Main Laboratory ([facility]) [address] [place] [address] Drew Granger MD WBC 29.8 th/cmm High 4.4-10.5 [facility] Comment on above: Performed By: #### L 100.1999, L100.0000 #### Main Laboratory ([facility]) [address] [place] [address] Drew Granger MD Case Management General Note on 09-11-2023 Case Management General Note [facility] Case Management Patient: GEOVANNY MEJÍA [address] : 1970 [place], [place] [address] Location: [phone] Unit #: [id number] Case Management General Note Evelyne Pena RN Service Date: 09/11/23 Case Management General Note - Note Note: 09/11 Patient to d/c to cousin Ursula Sandhu [place]. [address] [place] [address] [address]. [place] [address] - Letter Delivered Was Position Statement Letter Delivered?: Yes Entered by: Evelyne Pena RN on 09/11/23 1219 Report Signed by: Evelyne Pena RN on 09/11/23 1220 < > Co-Signed by: on Normal [facility] Magnesiumon 09-11-2023 Magnesium [Mass/Vol] 2.3 mg/dL Normal 1.8-2.5 [facility] Comment on above: Performed By: #### L 100.2000, L100.0000 #### Main Laboratory ([facility]) [address] [place] [address] Drew Granger MD Progress Note - Hospitalisto n 09-11-2023 Progress Note - Hospitalist [facility] Medical Records Patient: GEOVANNY MEJÍA [address] : 1970 [place], [place] [address] Location: [phone] Unit #: [id number] Progress Note - Hospitalist Craig Rodriguez DO [...] positive for MSSA. 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 No nausea or vomiting, no fever [...] < > Report Signed by: on Normal [facility] Basic Metabolic Panel,Fastin nivia 09-10-2023 Anion gap [Moles/Vol] 10 mmol/L Normal 4-12 [facility] Comment on above: Performed By: #### L 400.0202, L400.5100 ####Main Laboratory ([facility])[address] [phone] Nivar, MD Calcium [Mass/Vol] 7.70 mg/dL Low 8.8-10.5 [facility] Comment on above: Performed By: #### L 400.0202, L400.5100 ####Main Laboratory ([facility])[address] [phone] Nivar, MD Chloride [Moles/Vol] 101 mmol/L Normal 101-111 [facility] Comment on above: Performed By: #### L 400.0202, L400.5100 ####Main Laboratory ([facility])[address] [phone] Nivar, MD CO2 [Moles/Vol] 23 mmol/L Normal 21-32 [facility] Comment on above: Performed By: #### L 400.0202, L400.5100 ####Main Laboratory ([facility])[address] [place] [phone] Nivar, MD Creatinine [Mass/Vol] 0.54 mg/dL Low 0.60-1.30 [facility] Comment on above: Performed By: #### L 400.0202, L400.5100 ####Main Laboratory ([facility])[address] [place] [phone] Nivar, MD GFR Calculation > 60 Normal [facility] Comment on above: Result Comment: Minister Of Religion dontrell Kidney Disease stages by NKDF Stage eGFR I >90 II 60-89 III 30-59 IV 15-29 V <15 or dialysis AGE(years) AVERAGE GFR 50-59 93 ml/min/1.73 square meters Note:This result is normalized to 1.73 square meter body surface area. Height and weight are not factored. Performed By: #### L 400.0202, L400.5100 ####Main Laboratory ([facility])[address] [place] [phone] Nivar, MD Glucose [Mass/Vol] 91 mg/dL Normal 70-110 [facility] Comment on above: Performed By: #### L 400.0202, L400.5100 ####Main Laboratory ([facility])[address] [place] [phone] Nivar, MD Potassium [Moles/Vol] 3.7 mmol/L Normal 3.6-5.0 [facility] Comment on above: Performed By: #### L 400.0202, L400.5100 ####Main Laboratory ([facility])[address] [place] [phone] Nivar, MD Sodium [Moles/Vol] 134 mmol/L Low 135-145 [facility] Comment on above: Performed By: #### L 400.0202, L400.5100 ####Main Laboratory ([facility])[address] [phone] Nivar, MD Urea nitrogen [Mass/Vol] 16 mg/dL Normal 7-20 [facility] Comment on above: Performed By: #### L 400.0202, L400.5100 ####Main Laboratory ([facility])[address] [place] [phone] Nivar, MD CBC Without Differentialon Erythrocyte distribution width (RBC) [Ratio] 16.3 % High 12.0-16.0 [facility] Comment on above: Performed By: #### L 100.0050 #### Main Laboratory ([facility]) [address] [place] [phone] Drew Granger MD Hematocrit (Bld) [Volume fraction] 30.4 % Low 35.0-44.0 [facility] Comment on above: Performed By: #### L 100.0050 #### Main Laboratory ([facility]) [address] [place] [address] Drew Granger MD Hemoglobin (Bld) [Mass/Vol] 10.0 g/dL Low 12.0-15.0 [facility] Comment on above: Performed By: #### L 100.0050 #### Main Laboratory ([facility]) [address] [place] [place] [address] Drew Granger MD MCH (RBC) [Entitic mass] 28.0 pg Normal 27.5-33.0 [facility] Comment on above: Performed By: #### L 100.0050 #### Main Laboratory ([facility]) [address] [place] [address] Drew Granger MD MCH (RBC) [Mass/Vol] 33.0 g/dL Normal 33.0-36.0 [facility] Comment on above: Performed By: #### L 100.0050 #### Main Laboratory ([facility]) [address] [place] [address] Drew Granger MD MCV 84.9 CU MILKA Normal 80-97 [facility] Comment on above: Performed By: #### L 100.0050 #### Main Laboratory ([facility]) [address] [place] [address] Drew Granger MD Platelet Count 164 th/cmm Normal 150-400 [facility] Comment on above: Performed By: #### L 100.0050 #### Main Laboratory ([facility]) [address] [place] [address] Drew Granger MD RBC 3.58 mil/cmm Low 4.00-5.10 [facility] Comment on above: Performed By: #### L 100.0050 #### Main Laboratory ([facility]) [address] [place] [address] Drew Granger MD WBC 23.3 th/cmm High 4.4-10.5 [facility] Comment on above: Performed By: #### L 100.0050 #### Main Laboratory ([facility]) [address] [place] [address] Drew Granger MD Case Management Daily Noteon 09-10-2023 Case Management Daily Note [facility] Case Management Patient: GEOVANNY MEJÍA [address] : 1970 [place] [address] Location: [phone] Unit #: [id number] Case Management Daily Note Evelyne Pena RN Service Date: 09/10/23 Case Mgmt Daily Note - Plan of Care Controls Technician Agrees with Attending and Consult Plan: Yes - Patient Preferences AND Goals What is the patient's preference?: Services to be Determined Recommended acute discharge goals: Services to be Determined - Hospital Stay Days Day 1 Comment: 09/08 Met with patient in the room. Patient is from [place]. She is up here to visit her sister. Patient reporting she is normally independent. Does not have a PCP. Patient would like to use [facility] OP Pharm for meds. Planning to have her cousin pick her up at d/c. Contact is her cousin Ursula. Denies having LW/dPOA. Controls Technician: Evelyne Pena, RN Day 2 Comment: 09/09 Met with patient in the room. Patient asking to get up and move around. PT/OT to [facility]. S/p L ABD drain placement. Patient agreeable to [facility] for drain mgmt if needed. Reporting she will be going to [facility] at d/c to stay with her cousin Ursula. spoke with patients cousin Ursula via telephone who reports she is ok with [facility] coming to her home if patient would go there at d/c. Ursula reporting patient was homeless in [place] and recently move to [place] with her sister Monique. Controls Technician: Evelyne Pena, RN Day 3 Comment: 09/10 D/c needs pending medical course. Jr present. Dilaudid MATERIALS AND PROCESSES MANAGER. PT/OT. ID c/s. Therapy recs for IPR vs OP PT. Will follow to assist with d/c needs. Controls Technician: Evelyne Pena, RN - Transportation Mode of [...] Entered by: Evelyne Pena RN on 09/10/23 2350 Report Signed by: Evelyne Pena RN on 09/10/23 1512 < > Co-Signed by: on Normal [facility] MRSA screen, fecon 3 MRSA screen, fec No growth of MRSA after 2 days. Normal [facility] Comment on above: Performed By: #### M 110.0050 #### Main Laboratory ([facility]) [address] [place] [address] Drew Granger MD Magnesiumon 09-10-2023 Magnesium [Mass/Vol] 2.1 mg/dL Normal 1.8-2.5 [facility] Comment on above: Performed By: #### L 400.0202, L400.5100 ####Main Laboratory ([facility])[address], [place] [phone] Nivar, MD Progress Note - Hospitalisto n 09-10-2023 Progress Note - Hospitalist [facility] Medical Records Patient: GEOVANNY MEJÍA [address] : 1970 [place], [place] [address] Location: [phone] Unit #: [id number] Progress Note - Hospitalist Craig Rodriguez DO [...] positive for MSSA. Patient is on Dilaudid MATERIALS AND PROCESSES MANAGER due to her significant pain Vitals stable. [...] examined. She is currently on a dilaudid MATERIALS AND PROCESSES MANAGER pump and still having significant abdominal pain. [...] the EMR. 09/10/23 08:00 CT Abd/Pelvis W/Contrast 03229 Routine Microbiology: Microbiology 09/08/23 18:20 Blood,Venous Blood [...] < > Report Signed by: on Normal [facility] Basic Metabolic Panel,Fastin nivia 09-09-2023 Anion gap [Moles/Vol] 9 mmol/L Normal 4-12 [facility] Comment on above: Performed By: #### M 140.0200 #### Main Laboratory ([facility]) [address] [place] [address] Drew Granger MD Calcium [Mass/Vol] 8.10 mg/dL Low 8.8-10.5 [facility] Comment on above: Performed By: #### M 140.0200 #### Main Laboratory ([facility]) [address] [place] [address] Drew Granger MD Chloride [Moles/Vol] 97 mmol/L Low 101-111 [facility] Comment on above: Performed By: #### M 140.0200 #### Main Laboratory ([facility]) [address] [place] [address] Drew Granger MD CO2 [Moles/Vol] 26 mmol/L Normal 21-32 [facility] Comment on above: Performed By: #### M 140.0200 #### Main Laboratory ([facility]) [address] [place] [address] Drew Granger MD Creatinine [Mass/Vol] 0.65 mg/dL Normal 0.60-1.30 [facility] Comment on above: Performed By: #### M 140.0200 #### Main Laboratory ([facility]) [address] [place] [address] Drew Granger MD GFR Calculation > 60 Normal [facility] Comment on above: Result Comment: Minister Of [employer] dontrell Kidney Disease stages by NKDF Stage eGFR I >90 II 60-89 III 30-59 IV 15-29 V <15 or dialysis AGE(years) AVERAGE GFR 50-59 93 ml/min/1.73 square meters Note:This result is normalized to 1.73 square meter body surface area. Height and weight are not factored. Performed By: #### M 140.0200 #### Main Laboratory ([facility]) [address] [place] [address] Drew Granger MD Glucose [Mass/Vol] 111 mg/dL High 70-110 [facility] Comment on above: Performed By: #### M 140.0200 #### Main Laboratory ([facility]) [address] [place] [address] Drew Granger MD Potassium [Moles/Vol] 3.8 mmol/L Normal 3.6-5.0 [facility] Comment on above: Performed By: #### M 140.0200 #### Main Laboratory ([facility]) [address] [place] [address] Drew Granger MD Sodium [Moles/Vol] 132 mmol/L Low 135-145 [facility] Comment on above: Performed By: #### M 140.0200 #### Main Laboratory ([facility]) [address] [place] [address] Drew Granger MD Urea nitrogen [Mass/Vol] 22 mg/dL High 7-20 [facility] Comment on above: Performed By: #### M 140.0200 #### Main Laboratory ([facility]) [address] [place] [address] Drew Granger MD CBC Without Differentialon Erythrocyte distribution width (RBC) [Ratio] 16.0 % Normal 12.0-16.0 [facility] Comment on above: Performed By: #### L 100.1999, L100.0000 #### Main Laboratory ([facility]) [address] [place] [address] Drew Granger MD Hematocrit (Bld) [Volume fraction] 31.8 % Low 35.0-44.0 [facility] Comment on above: Performed By: #### L 100.1999, L100.0000 #### Main Laboratory ([facility]) [address] [place] [address] Drew Granger MD Hemoglobin (Bld) [Mass/Vol] 10.6 g/dL Low 12.0-15.0 [facility] Comment on above: Performed By: #### L 100.1999, L100.0000 #### Main Laboratory ([facility]) [address] [place] [address] Drew Granger MD MCH (RBC) [Entitic mass] 28.4 pg Normal 27.5-33.0 [facility] Comment on above: Performed By: #### L , L100.0000 #### Main Laboratory ([facility]) [address] [place] [address] Drew Granger [facility] ([facility] [Mass/Vol] 33.3 g/dL Normal 33.0-36.0 [facility] Comment on above: Performed By: #### L , L100.0000 #### Main Laboratory ([facility]) [address] [place] [facility] Drew Granger MD MCV 85.4 CU MILKA Normal 80-97 [facility] Comment on above: Performed By: #### L , L100.0000 #### Main Laboratory ([facility]) [address] [place] [address] Drew Granger MD Platelet Count 172 th/cmm Normal 150-400 [facility] Comment on above: Performed By: #### L , L100.0000 #### Main Laboratory ([facility]) [address] [place] [address] Drew Granger MD RBC 3.73 mil/cmm Low 4.00-5.10 [facility] Comment on above: Performed By: #### L , L100.0000 #### Main Laboratory ([facility]) [address] [place] [address] Drew Granger MD WBC 18.2 th/cmm High 4.4-10.5 [facility] Comment on above: Performed By: #### L , L100.0000 #### Main Laboratory ([facility]) [address] [place], [facility] Drew Granger MD CT Abd/Pelvis W/Contrast 741 77on 09-09-2023 CT Abd/Pelvis W/Contrast 91427 [facility] Radiology Department Patient: GEOVANNY MEJÍA [address] : 1970 Sex: [place] [address] Location: [phone] Unit #: [id number] Ordering Phys: Ryanne Morales PA-C Exam Date: 09/10/23 Exam: CT CT Abd/Pelvis W/Contrast 06760 Result: See Report [id number] STUDY: CT ABDOMEN AND PELVIS WITH CONTRAST [...] 10:20 EDT Reading Location ID and State: [address] [place] [address] , Service support , cc: Ryanne Morales PA-C; None Dictated by: Freddy Guevara MD on 09/10/23 1020 Transcribed by: Fredyd Guevara on 09/10/23 1020 Report Signed by: Ismeal MEJÍA,Freddy Nielsen on 09/10/23 1020 Normal [facility] Case Management Admissionon 09-09-2023 Case Management Admission [facility] Case Management Patient: GEOVANNY MEJÍ[address] : 1970 [place], [place] [address] Location: [phone] Unit #: [id number] Case Management Admission Evelyne Pena RN Service Date: 09/08/23 Case Mgmt Admission/Disch Plan - Patient Preferences AND Goals What is the patient's preference?: Services to be Determined Recommended acute discharge goals: Services to be Determined - Hospital Stay Day Day 1 Comment: 09/08 Met with patient in the room. Patient is from [place]. She is up here to visit her sister. Patient reporting she is normally independent. Does not have a PCP. Patient would like to use [facility] OP Pharm for meds. Planning to have her cousin pick her up at d/c. Contact is her cousin Ursula. Denies having LW/dPOA. Controls Technician: Evelyne Pena, RN - Demographics Current Diagnosis(s): Intra abdominal abscess Information Given by: Patient Primary Insurance: [employer] Family/Caregiver Contact: Ursula Relationship: shankar Does the patient have VA services?: No Does the patient have a [facility] provider?: No - Readmission Information Was the patient readmitted within the past 30 days?: No Where was the patient admitted from?: Home Does Patient have any Services in Place?: No - Healthcare Decisions Code Status Per Patient Request (Full Code, DNRCC, DNRCCA): Full code Durable Power of Bottle Tester for Health Care: Unknown [facility] DNR Comfort Care: Unknown [facility] DNR Comfort Care Arrest: Unknown - Mental Status Prior Mental Status: Alert and Oriented Current Mental Status: Alert and Oriented - Living Situation Home Situation: Lives Alone Home Type: Single Family Home Levels: 1 Stairs: Yes Does the patient drive?: Yes - Support System Support System: Friends - Skilled Days Has patient been in a jail facility in past 60 days: No - [...] If Yes to either question, notify Manager Ems.: No - Discharge Plan Discharge Plan Discussed [...] Entered by: Evelyne Pena RN on 09/08/23 8518 Report Signed by: Evelyne Pena RN on 09/09/23 1036 < > Co-Signed by: on Normal [facility] Case Management Daily Noteon 09-09-2023 Case Management Daily Note [facility] Case Management Patient: GEOVANNY MEJÍA. : 1970 [place], [place] [address] Location: [address] [place] [address] Unit #: [id number] [id number] Case Management Daily Note Evelyne Pena RN Service Date: 09/09/23 Case Mgmt Daily Note - Plan of Care Controls Technician Agrees with Attending and Consult Plan: Yes - Patient Preferences AND Goals What is the patient's preference?: Services to be Determined Recommended acute discharge goals: Services to be Determined - Hospital Stay Days Day 1 Comment: 09/08 Met with patient in the room. Patient is from [place]. She is up here to visit her sister. Patient reporting she is normally independent. Does not have a PCP. Patient would like to use [facility] OP Pharm for meds. Planning to have her cousin pick her up at d/c. Contact is her cousin Ursula. Denies having LW/dPOA. Controls Technician: Evelyne Pena RN Day 2 Comment: 09/09 Met with patient in the room. Patient asking to get up and move around. PT/OT to [facility]. S/p L ABD drain placement. Patient agreeable to [facility] for drain mgmt if needed. Reporting she will be going to [facility] at d/c to stay with her cousin Ursula. spoke with patients cousin Ursula via telephone who reports she is ok with [facility] coming to her home if patient would go there at d/c. Ursula reporting patient was homeless in [place] and recently move to [place] with her sister Monique. Controls Technician: Evelyne Pena, RN - Transportation Mode of [...] Entered by: Evelyne Pena RN on 09/09/23 3544 Report Signed by: Evelyne Pena RN on 09/09/23 1546 < > Co-Signed by: on Normal [facility] Magnesiumon 09-09-2023 Magnesium [Mass/Vol] 2.1 mg/dL Normal 1.8-2.5 [facility] Comment on above: Performed By: #### M 140.0200 #### Main Laboratory ([facility]) [address] [place] [address] Drew Granger MD Progress Note - Hospitalisto korina 09-09-2023 Progress Note - Hospitalist [facility] Medical Records Patient: GEOVANNY MEJÍA [address] : 1970 [place], [place] [address] Location: [phone] Unit #: [id number] Progress Note - Hospitalist Craig Rodriguez DO [...] < > Report Signed by: on Normal [facility] Social Determinantson 2022 Social Determinants [facility] Case Management Patient: GEOVANNY MEÍJA [address] : 1970 [place], [place] [address] Location: [address] [place] [address] Unit #: [id number] Social Determinants Evelyne Pena RN Service Date: [...] 1546 < > Co-Signed by: on Normal [facility] Vancomycin Random (AUC)on Vancomycin Random (AUC) 18.3 mcg/mL Normal 15.0-40.0 [facility] Comment on above: Performed By: #### L 600.6150 #### Main Laboratory ([facility]) [address] [place] [address] Drew Granger MD Atherectomy of brachiocephal ic arteryOrdered By: David Elena on 09-08-2023 Atherectomy of brachiocephalic artery Negative Negative [facility] Comment on above: Methodology: Nucleic Acid Amplification (Polymerase Chain Reaction,PCR) Bacteria identified Cx Nom ( Body fld)Ordered By: Freddy Guevara on 09-08-2023 Body Fluid Culture Staphylococcus aureus Abnormal [facility] Body Fluid Culture Staphylococcus aureus Abnormal [facility] CBC with Differentialon 08-24 Anisocytosis Ql (Bld) 1+ Normal [facility] Comment on above: Performed By: #### L , L100.0000 #### Main Laboratory ([facility]) [address] [place] [address] Drew Granger MD Erythrocyte distribution width (RBC) [Ratio] 15.7 % Normal 12.0-16.0 [facility] Comment on above: Performed By: #### L , L100.0000 #### Main Laboratory ([facility]) [address] [place] [address] Drew Granger MD Hematocrit (Bld) [Volume fraction] 30.6 % Low 35.0-44.0 [facility] Comment on above: Performed By: #### L , L100.0000 #### Main Laboratory ([facility]) [address] [place] [address] Drew Granger MD Hemoglobin (Bld) [Mass/Vol] 10.3 g/dL Low 12.0-15.0 [facility] Comment on above: Performed By: #### L , L100.0000 #### Main Laboratory ([facility]) [address] [place] [address] Drew Granger MD MCH (RBC) [Entitic mass] 28.6 pg Normal 27.5-33.0 [facility] Comment on above: Performed By: #### L 100.1999, L100.0000 #### Main Laboratory ([facility]) [address] [place] [address] Drew Granger MD MCHC (RBC) [Mass/Vol] 33.7 g/dL Normal 33.0-36.0 [facility] Comment on above: Performed By: #### L , L100.0000 #### Main Laboratory ([facility]) [address] [place] [address] Drew Granger MD MCV 84.8 CU MILKA Normal 80-97 [facility] Comment on above: Performed By: #### L , L100.0000 #### Main Laboratory ([facility]) [address] [place] [address] Drew Granger MD Platelet Count 213 th/cmm Normal 150-400 [facility] Comment on above: Performed By: #### L , L100.0000 #### Main Laboratory ([facility]) [address] [place] [address] Drew Granger MD RBC 3.61 mil/cmm Low 4.00-5.10 [facility] Comment on above: Performed By: #### L , L100.0000 #### Main Laboratory ([facility]) [address] [place] [address] Drew rGanger MD WBC 24.9 th/cmm High 4.4-10.5 [facility] Comment on above: Performed By: #### L , L100.0000 #### Main Laboratory ([facility]) [address] [place] [address] Peritoneal Abscesson 08-24 CT Peritoneal Abscess [facility] Radiology Department Patient: GEOVANNY MEJÍA [address] : 1970 Sex: [place], [place] [address] Location: [phone] Unit #: [id number] Ordering Phys: Bryant Epperson APRN, CNP Exam Date: 09/08/23 Exam: CT CT Peritoneal Abscess Result: See Report [id number] CT GUIDED FLUID COLLECTION DRAINAGE WITH PIGTAIL [...] Kristin Guevara MD DATE OF PROCEDURE: 09/08/2023 CRIB PAD MAKER: NONE ESTIMATED BLOOD LOSS: Negligible SPECIMENS REMOVED: Sample sent to laboratory with appropriate orders. COMPLICATIONS: None Technique: Patient was positioned [id number] on the CT table. Initial imaging demonstrated amorphous retroperitoneal fluid collection on the left side with small locules of low density that could represent either air or localized fat. The skin was prepared in standard, sterile fashion. The skin was anesthetized with lidocaine and a small skin incision was made. A 5-Haitian Yueh needle/catheter was advanced under intermittent CT guidance into the fluid collection. A J-wire passed easily. The tract was dilated with an 8-Haitian dilator. An 8-Haitian drainage catheter was then advanced over the wire into position and the [place] loop was locked into position. The catheter [...] 16:18 EDT Reading Location ID and State: [address] [place] [address] , Service support , [id number] CT GUIDED FLUID COLLECTION DRAINAGE WITH PIGTAIL [...] Kristin Guevara MD DATE OF PROCEDURE: 09/08/2023 CRIB PAD MAKER: NONE ESTIMATED BLOOD LOSS: Negligible SPECIMENS REMOVED: Sample sent to laboratory with appropriate orders. COMPLICATIONS: None Technique: Patient was positioned kbihe-nmle-msts on the CT table. Initial imaging demonstrated amorphous retroperitoneal fluid collection on the left side with small locules of low density that could represent either air or localized fat. The skin was prepared in standard, sterile fashion. The skin was anesthetized with lidocaine and a small skin incision was made. A 5-Haitian Yueh needle/catheter was advanced under intermittent CT guidance into the fluid collection. A J-wire passed easily. The tract was dilated with an 8-Haitian dilator. An 8-Haitian drainage catheter was then advanced over the wire into position and the [place] loop was locked into position. The catheter [...] could repr (more content not included)... Normal [facility] Comprehensive Metabolic Pane naz 09-08-2023 Albumin [Mass/Vol] 2.7 g/dL Low 3.5-5.0 [facility] Comment on above: Performed By: #### L , L100.0000 #### Main Laboratory ([facility]) [address] [place] [address] Drew Granger MD Albumin/Globulin [Mass ratio] 0.8 {ratio} Low 1.5-2.5 [facility] Comment on above: Performed By: #### L , L100.0000 #### Main Laboratory ([facility]) [address] [place] [address] Drew Granger MD Alk Phos 276 IU/L High 39-118 [facility] Comment on above: Performed By: #### L , L100.0000 #### Main Laboratory ([facility]) [address] [place] [address] Drew Granger MD ALT [Catalytic activity/Vol] 20 U/L Normal 10-40 [facility] Comment on above: Performed By: #### L , L100.0000 #### Main Laboratory ([facility]) [address] [place] [address] Drew Granger MD Anion gap [Moles/Vol] 9 mmol/L Normal 4-12 [facility] Comment on above: Performed By: #### L , L100.0000 #### Main Laboratory ([facility]) [address] [place] [address] Drew Granger MD AST [Catalytic activity/Vol] 11 U/L Low 15-41 [facility] Comment on above: Performed By: #### L , L100.0000 #### Main Laboratory ([facility]) [address] [place] [address] Drew Granger MD Bili,Total 0.4 mg/dL Normal 0.2-1.0 [facility] Comment on above: Performed By: #### L , L100.0000 #### Main Laboratory ([facility]) [address] [place] [address] Drew Granger MD Calcium [Mass/Vol] 8.10 mg/dL Low 8.8-10.5 [facility] Comment on above: Performed By: #### L , L100.0000 #### Main Laboratory ([facility]) [address] [place] [address] Drew Granger MD Chloride [Moles/Vol] 98 mmol/L Low 101-111 [facility] Comment on above: Performed By: #### L , L100.0000 #### Main Laboratory ([facility]) [address] [place] [address] Drew Granger MD CO2 [Moles/Vol] 27 mmol/L Normal 21-32 [facility] Comment on above: Performed By: #### L , L100.0000 #### Main Laboratory ([facility]) [address] [place] [address] Drew Granger MD Creatinine [Mass/Vol] 0.63 mg/dL Normal 0.60-1.30 [facility] Comment on above: Performed By: #### L , L100.0000 #### Main Laboratory ([facility]) [address] [place] [address] Drew Granger MD GFR Calculation > 60 Normal [facility] Comment on above: Result Comment: Minister Of Religion dontrell Kidney Disease stages by NKDF Stage eGFR I >90 II 60-89 III 30-59 IV 15-29 V <15 or dialysis AGE(years) AVERAGE GFR 50-59 93 ml/min/1.73 square meters Note:This result is normalized to 1.73 square meter body surface area. Height and weight are not factored. Performed By: #### L , L100.0000 #### Main Laboratory ([facility]) [address] [place] [address] Drew Granger MD Glucose [Mass/Vol] 112 mg/dL High 70-110 [facility] Comment on above: Performed By: #### L , L100.0000 #### Main Laboratory ([facility]) [address] [place] [address] Drew Granger MD Potassium [Moles/Vol] 3.7 mmol/L Normal 3.6-5.0 [facility] Comment on above: Performed By: #### L , L100.0000 #### Main Laboratory ([facility]) [address] [place] [address] Drew Granger MD Protein [Mass/Vol] 6.0 g/dL Low 6.2-8.0 [facility] Comment on above: Performed By: #### L , L100.0000 #### Main Laboratory ([facility]) [address] [place] [address] Drew Granger MD Sodium [Moles/Vol] 134 mmol/L Low 135-145 [facility] Comment on above: Performed By: #### L , L100.0000 #### Main Laboratory ([facility]) [address] [place] [address] Drew Granger MD Urea nitrogen [Mass/Vol] 24 mg/dL High 7-20 [facility] Comment on above: Performed By: #### L , L100.0000 #### Main Laboratory ([facility]) [address] [place] [address] Drew Granger MD Gram stain microscopyOrdered By: Freddy Guevara on 09-08-2023 Microscopic observation Gram stain Nom (Unsp spec) [facility] Microscopic observation Gram stain Nom (Unsp spec) [facility] Lactic Acidon 09-08-2023 Lactate [Moles/Vol] 1.1 mmol/L Normal 0.5-2.0 [facility] Comment on above: Performed By: #### L 401.4160 ####Main Laboratory ([facility])[address] [phone] Nivar, MD MRSA Screen,Nasal Rapidon Nasal MRSA Screen Not detected Normal NotDetected [facility] Comment on above: Result Comment: Meth odology: Nucleic Acid Amplification (Polymerase Chain Reaction,PCR) Performed By: #### L 800.5300 ####Main Laboratory ([facility])[address] [phone] Nivar, MD Manual Diffon 09-08-2023 Abs Baso Count 0 /cmm Normal 0-200 [facility] Comment on above: Performed By: #### L 100.1999, L100.0000 #### Main Laboratory ([facility]) [address] [place] [address] Drew Granger MD Abs Eos Count 0 /cmm Normal 0-500 [facility] Comment on above: Performed By: #### L 100.1999, L100.0000 #### Main Laboratory ([facility]) [address] [place] [address] Drew Granger MD Abs Lymph Count 996 /cmm Low 1444-7636 [facility] Comment on above: Performed By: #### L 100.1999, L100.0000 #### Main Laboratory ([facility]) [address] [place] [address] Drew Granger MD Abs [place] Count 249 /cmm Normal 0-800 [facility] Comment on above: Performed By: #### L 100.1999, L100.0000 #### Main Laboratory ([facility]) [address] [place] [address] Drew Granger MD Abs Neut Count 68718 /cmm High 1509-2348 [facility] Comment on above: Performed By: #### L 100.1999, L100.0000 #### Main Laboratory ([facility]) [address] [place] [address] Drew Granger MD Bands 10.0 % High 2-6 [facility] Comment on above: Performed By: #### L 100.1999, L100.0000 #### Main Laboratory ([facility]) [address] [place] [address] Drew Granger MD Lymphocytes 4.0 % Low 15-45 [facility] Comment on above: Performed By: #### L 100.1999, L100.0000 #### Main Laboratory ([facility]) [address] [place] [address] Drew Granger MD Monocytes 1.0 % Low 2-10 [facility] Comment on above: Performed By: #### L 100, L100.0000 #### Main Laboratory ([facility]) [address] [place] [address] Drew Granger MD Neutrophils 85.0 % High 40-70 [facility] Comment on above: Performed By: #### L , L100.0000 #### Main Laboratory ([facility]) [address] [place] [address] Drew Granger MD Methicillin resistant Staphy lococcus aureus (MRSA) DNA detection by probe and targetOrdered By: David Elena on 09-08-2023 MRSA DNA GINETTE+probe Ql (Unsp spec) Not detected NotDetected [facility] Comment on above: Methodology: Nucleic Acid Amplification (Polymerase Chain Reaction,PCR) Peritoneal Fluid Creatinineo n 09-08-2023 Creatinine [Mass/Vol] 0.7 mg/dL Normal [facility] Comment on above: Order Comment: Comme nt [...] #### L 350.2075, L350.3360 ####Main Laboratory ([facility])[address], [place] [phone] Nivar, MD Peritoneal fluid creatinine measurement (mass/volume)Ordered By: Freddy Guevara on 09-08-2023 Creatinine (Periton fld) [Mass/Vol] 0.7 mg/dL [facility] Comment on above: Because protein and lipid content can vary considerably from specimen to specimen, the reference range and other method performance specifications have not been established for this body fluid. The test result must be integrated into the clinical context for interpretation. Pharmacy Daily Noteon 2022 Pharmacy Daily Note [facility] Medical Records Patient: GEOVANNY MEJÍA [address] : 1970 [place], [place] [address] Location: [phone] Unit #: [id number] Pharmacy Daily Note Charity Adames PharmD Service Dt/Tm: 09/08/23 4599 Pharmacy - Patient Information Patient Information: Name: [...] F Entered by: Charity Adames on 09/08/23 170 Report Signed by: Charity Adames on 09/08/23 191 < > Co-Signed by: on Normal [facility] Pleural fluid triglyceride m easurement (mass/volume)Ordered By: Freddy Guevara on 09-08-2023 Triglyceride (Pleur fld) [Mass/Vol] 102 mg/dL [facility] Comment on above: Because protein and lipid content can vary considerably from specimen to specimen, the reference range and other method performance specifications have not been established for this body fluid. The test result must be integrated into the clinical context for interpretation. Pleural/Thor Fld Triglycerid eson 09-08-2023 Pleural Fuild Triglycerides 102 mg/dL Normal [facility] Comment on above: Order Comment: Comme nt [...] #### L 350.2075, L350.3360 ####Main Laboratory ([facility])[address], [place] [phone] Nivar, MD Serum or plasma alanine price otransferase measurement (enzymatic activity/volume)Ordered By: Willy Lechuga on 09-08-2023 ALT [Catalytic activity/Vol] 20 U/L 10-40 [facility] Serum or plasma albumin/glob ulin mass ratioOrdered By: Willy Lechuga on 09-08-2023 Albumin/Globulin [Mass ratio] 0.8 {ratio} Low 1.5-2.5 [facility] Serum or plasma alkaline wilfrid sphatase measurement (enzymatic activity/volume)Ordered By: Willy Lechuga on 09-08-2023 ALP [Catalytic activity/Vol] 276 U/L High 39-118 [facility] Serum or plasma aspartate am inotransferase measurement (enzymatic activity/volume)Ordered By: Willy Lechuga on 09-08-2023 AST [Catalytic activity/Vol] 11 U/L Low 15-41 [facility] Serum or plasma lactate tamera urement (moles/volume)Ordered By: Willy Lechuga on 09-08-2023 Lactate [Moles/Vol] 1.1 mmol/L 0.5-2.0 [facility] Serum or plasma protein tamera urement (mass/volume)Ordered By: Willy Lechuga on 09-08-2023 Protein [Mass/Vol] 6.0 g/dL Low 6.2-8.0 [facility] Serum or plasma total biliru bin measurement (mass/volume)Ordered By: Willy Lechuga on 09-08-2023 Bilirubin [Mass/Vol] 0.4 mg/dL 0.2-1.0 [facility] US Abd Right Upper Quadranto n 09-08-2023 US Abd Right Upper Quadrant [facility] Radiology Department Patient: GEOVANNY MEJÍA. : 1970 Sex: Bel[place], [place] [address] Location: [address] [place] [address] Unit #: [id number] Ordering Phys: Willy Lechuga ([facility]) Exam Date: 09/08/23 Exam: US US Abd Right Upper Quadrant Result: See Report [id number] EXAM: US ABDOMEN LIMITED, RIGHT UPPER QUADRANT CLINICAL INDICATION: abdominal tension TECHNIQUE: Real-time ultrasound of the right upper quadrant with image documentation. This report was created using [employer] report generation technology. COMPARISON: CT 09/07/2023. FINDINGS: [...] 15:42 EDT Reading Location ID and State: [address] [place] [address] , Service support , cc: Willy PerezMENDOCINO [facility] HOSPITALAnika Lechuga MD; None Dictated by: Freddy Guevara MD on 09/08/231541 Transcribed by: Freddy Guevara on 09/08/231541 Report Signed by: Ismael MEJÍA,Freddy Nielsen on 09/08/23 154 Normal [facility] VRE Screen, Rapidon 09-08-20 Fecal VRE Screen Negative Normal Negative [facility] Comment on above: Result Comment: Meth odology: Nucleic Acid Amplification (Polymerase Chain Reaction,PCR) Performed By: #### L 600.6150 #### Main Laboratory ([facility]) [address] [place] [address] ABDOMEN PELVIS WITH IV CO NTRAST ONLYon 09-07-2023 CT ABDOMEN PELVIS WITH IV CONTRAST ONLY EXAMINATION: CT ABDOMEN PELVIS WITH IV CONTRAST ONLY HISTORY: ORDERING SYSTEM PROVIDED HISTORY: Abdominal pain, acute, nonlocalized, TECHNOLOGIST PROVIDED HISTORY: Illness/Other Reason for exam: incidental finding on lspine ct scan Encounter Type: Initial Additional signs [...] ID: [id number] Dictated by: RAIZA MENESES on [place] Sep 07, 2023 8:02:26 PM EDT Transcribed by: RAIZA MENESES on [place] Sep 07, 2023 8:02:26 PM EDT Finalized by: RAIZA MENESES on [place] Sep 07, 2023 8:02:26 PM EDT Normal [facility] Comment on above: Order Comment: Injur y/Trauma or Illness?:Illness/Other How long have you had these symptoms (acute/chronic)?:Acute Reason for exam?:incidental finding on lspine ct scan Type of Exam?:Initial Additional signs and symptoms?:n CT LUMBAR SPINE WITHOUT CONT Steffi 09-07-2023 CT LUMBAR SPINE WITHOUT CONTRAST EXAMINATION: [...] of the ventral thecal sac with resultant dhxqskcc-rq-zrfddg central canal, bilateral recess stenosis. Mild bilateral foraminal narrowing noted. At L3-L4, broad-based disc bulging with interspace narrowing, thickened ligamenta flava and developmentally short pedicles is again noted, with fsbxyqly-pa-xlkrxq central canal stenosis, bilateral recess stenosis, and moderate degree of foraminal narrowing. At L4-L5, facet arthrosis, redundant ligamenta flava, bulging disc again appear to be associated with severe central canal, xxjzlqoq-sj-zcjuhm bilateral recess stenosis, and plbydyzz-rx-limrlc bilateral foraminal narrowing similar to previous. At [...] disc disease as previously described including multilevel hiyvmirg-kn-mcwhxh central canal stenosis reflecting a combination of [...] the nature of the new inflammatory process. 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 dontrell Reason for exam?:chronic neck pain with [...] ID: [id number] Dictated by: ROHIT RIVERA on [facility] Sep 04, 2023 7:27:26 PM EDT Transcribed by: ROHIT RIVERA on [facility] Sep 04, 2023 7:27:26 PM EDT Finalized by: ROHIT RIVERA on [facility] Sep 04, 2023 7:27:26 PM EDT Normal [facility] Comment on above: Order Comment: Injur y/Trauma or Illness?:Illness/Other How long have you had these symptoms (acute/chronic)?:Chronic Reason for exam?:chronic neck pain with wea gripping Type of Exam?:Initial Additional signs and symptoms?:see above CT LUMBAR SPINE WITHOUT CONT [facility] 09-04-2023 CT LUMBAR SPINE WITHOUT CONTRAST EXAMINATION: [...] ID: [id number] Dictated by: DIPTI BOGGS on [facility] Sep 04, 2023 7:25:51 PM EDT Transcribed by: DIPTI BOGGS on [facility] Sep 04, 2023 7:25:51 PM EDT Finalized by: DIPTI OBGGS on [facility] Sep 04, 2023 7:25:51 PM EDT Normal [facility] Comment on above: Order Comment: Injur [...] on FriAug 06, 2023 5:26:17 PM EDT Normal [facility] Comment on above: Order Comment: Injur y/Trauma or Illness?:Illness/Other How long have you had these symptoms (acute/chronic)?:Acute Reason for exam?:low mid back pain radating to lt sciatica down to lt foot History of cancer?:n Surgeries, chemotherapy, or radiation?:n Type of Exam?:Initial Additional signs and symptoms?:n Vital Signs Date Time Vital Sign Value Performing Clinician Facility 02-05-2024 08:52-0400 Diastolic blood pressure 60 mm[Hg] Fahad Brannon [facility] 02-05-2024 08:52-0400 Heart rate 58 /min Fahad Brannon [facility] 02-05-2024 08:52-0400 Mean blood pressure 76 mm[Hg] Fahad Brannon [facility] 02-05-2024 08:52-0400 Respiratory rate 14 /min Fahad Brannon [facility] 02-05-2024 08:52-0400 Systolic blood pressure 108 mm[Hg] Fahad Brannon [facility] 12-24-2023 11:19-0500 Diastolic blood pressure 72 mm[Hg] Jaron Adan MD Work Phone: [facility] 12-24-2023 11:19-0500 Heart rate 62 /min Jaron Adan MD Work Phone: [facility] 12-24-2023 11:19-0500 SaO2% (BldA) [Mass fraction] 100 % Jaron Adan MD Work Phone: [facility] 12-24-2023 11:19-0500 Systolic blood pressure 159 mm[Hg] Jaron Adan MD Work Phone: [facility] 09-18-2023 17:59-0400 Diastolic blood pressure 69 mm[Hg] Physician None Work Phone: [facility] 09-18-2023 17:59-0400 Heart rate 95 /min Physician None Work Phone: [facility] 09-18-2023 17:59-0400 SaO2% (BldA) [Mass fraction] 95 % Physician None Work Phone: [facility] 09-18-2023 17:59-0400 Systolic blood pressure 123 mm[Hg] Physician None Work Phone: [facility] 09-18-2023 17:20-0400 Body temperature 98.4 [degF] Physician None Work Phone: [facility] 09-18-2023 17:20-0400 Respiratory rate 14 /min Physician None Work Phone: [facility] 09-18-2023 03:22-0400 Inhaled oxygen flow rate 2 L/min Physician None Work Phone: [facility] 09-15-2023 14:33-0400 Body height 162.56 cm Physician None Work Phone: [facility] 09-13-2023 03:09-0400 Body mass index (BMI) [Ratio] 31.4 kg/m2 Physician None Work Phone: [facility] 09-13-2023 02:30-0400 Body weight 83 kg Physician None Work Phone: [facility] 08-28-2023 16:02-0400 Diastolic blood pressure 74 mm[Hg] Aneta Valderrama MD Work Phone: [facility] 08-28-2023 16:02-0400 Systolic blood pressure 156 mm[Hg] Aneta Valderrama MD Work Phone: [facility] 08-28-2023 15:18-0400 Body height 162.6 cm Aneta Valderrama MD Work Phone: [facility] 08-28-2023 15:18-0400 Body mass index (BMI) [Ratio] 30.38 kg/m2 Aneta Valderrama MD Work Phone: [facility] 08-28-2023 15:18-0400 Body weight 80.29 kg Aneta Valderrama MD Work Phone: [facility] 08-28-2023 15:18-0400 Heart rate 103 /min Aneta Valderrama MD Work Phone: [facility] Encounters Encounter Date Encounter Type Care Provider Facility Start: 01-19-2025 End: 01-19-2025 Telephone encounter Elvia Bhatia GEOTECH[employer] FIELD TECHNICIAN Work Phone: [facility] Start: 01-10-2025 End: 01-10-2025 Telephone encounter Elvia Bhatia GEOTECHNICAL FIELD TECHNICIAN Work Phone: [facility] Start: 12-15-2024 End: 12-15-2024 Telephone encounter Elvia Bhatia GEOTECHNICAL FIELD TECHNICIAN Work Phone: [facility] Start: 12-11-2024 End: 12-11-2024 Telephone encounter Elvia Bhatia GEOTECHNICAL FIELD TECHNICIAN Work Phone: [facility] Start: 11-25-2024 End: 11-25-2024 Telephone encounter Elvia Bhatia GEOTECHNICAL FIELD TECHNICIAN Work Phone: [facility] Start: 11-22-2024 End: 11-22-2024 Telephone encounter Elvia Bhatia GEOTECHNICAL FIELD TECHNICIAN Work Phone: [facility] Start: 10-23-2024 End: 10-23-2024 Telephone encounter Elvia Bhatia GEOTECHNICAL FIELD TECHNICIAN Work Phone: [facility] Start: 10-13-2024 End: 10-13-2024 ambulatory ELVIA BHATIA [facility] Start: 10-12-2024 End: 10-12-2024 Telephone encounter Elvia Bhatia GEOTECHNICAL FIELD TECHNICIAN Work Phone: [facility] Start: 10-04-2024 End: 10-04-2024 Telephone encounter Elvia Bhatia GEOTECHNICAL FIELD TECHNICIAN Work Phone: [facility] Start: 09-29-2024 End: 09-29-2024 Telephone encounter Elvia Bhatia GEOTECHNICAL FIELD TECHNICIAN Work Phone: [facility] Start: 09-20-2024 End: 09-20-2024 Telephone encounter Elvia Bhatia GEOTECHNICAL FIELD TECHNICIAN Work Phone: [facility] Start: 09-18-2024 End: 09-18-2024 Telephone encounter Elvia Bhatia GEOTECHNICAL FIELD TECHNICIAN Work Phone: [facility] Start: 09-09-2024 End: 09-09-2024 Telephone encounter Elvia Bhatia GEOTECHNICAL FIELD TECHNICIAN Work Phone: [facility] Start: 08-18-2024 End: 08-18-2024 Telephone encounter Elvia Bhatia GEOTECHNICAL FIELD TECHNICIAN Work Phone: [facility] Start: 08-11-2024 End: 08-11-2024 Telephone encounter Elvia Bhatia GEOTECHNICAL FIELD TECHNICIAN Work Phone: [facility] Start: 07-21-2024 End: 07-21-2024 ambulatory [facility] Start: 2024 End: 2024 ambulatory PATEL BEYER [facility] Start: 04-21-2024 End: 04-21-2024 ambulatory [facility] Start: 03-24-2024 End: 03-24-2024 ambulatory NI OCHOA Not Available Start: 02-18-2024 End: 02-18-2024 ambulatory LUISA [facility] Start: 02-11-2024 ambulatory [facility] Start: 02-05-2024 End: 02-06-2024 ambulatory MD Zac Garrett Facility:[facility] Start: 02-05-2024 End: 02-05-2024 Pain Management Fahad TonAnita Brannon [facility] Start: 01-29-2024 End: 01-29-2024 ambulatory [facility] Start: 01-21-2024 End: 01-21-[facility]: 12-25-2023 End: 12-25-2023 [facility] Start: 12-24-2023 End: 12-24-2023 ambulatory LORI FERNANDO [facility] Start: 12-24-2023 End: 12-24-2023 ambulatory JARON ADAN Facility:[facility] LOC Start: 12-24-2023 End: 12-24-2023 Subsequent hospital visit by physician Jaron Adan MD Work Phone: [facility] Comment on above: Methicillin suscepti ble Staphylococcus aureus infection as the cause of diseases classified elsewhere Start: 12-18-2023 End: 12-18-2023 [facility] Start: 12-17-2023 End: 12-17-2023 ambulatory [facility] Start: 12-17-2023 End: 12-17-2023 ambulatory [facility] Start: 12-11-2023 End: 12-11-2023 ambulatory [facility] Start: 11-28-2023 ambulatory RAJENDRA OLIVER Facility :[facility] LOC Start: 11-15-2023 End: 11-16-2023 Emergency department patient visit NI CANO [facility] Start: 11-11-2023 End: 11-11-2023 ambulatory NOT IN SYSTEM REF PROV [facility] Start: 11-04-2023 End: 11-04-2023 Subsequent hospital visit by physician Lori Fernando MD Work Phone: [facility] Comment on above: Canceled (Preferred Different Location/Provider) Start: 11-04-2023 ambulatory LORI FERNANDO Faci lity:[facility] LOC Start: 09-18-2023 End: 10-06-2023 Evaluation and management of inpatient SURGERY - NEURO CONSULT Facility:[facility] LOC Start: 09-08-2023 End: 09-18-2023 Evaluation and management of inpatient David K Elena Facility:[facility] Start: 09-08-2023 End: 09-18-2023 Evaluation and management of inpatient Physician None Work Phone: [address] Start: 09-07-2023 End: 09-08-2023 Emergency department patient visit PROVIDER NOT IN SYSTEM [facility] Start: 09-04-2023 End: 09-04-2023 Emergency department patient visit PROVIDER NOT IN SYSTEM [facility] Start: 09-01-2023 End: 09-01-2023 Emergency department patient visit PROVIDER NOT IN SYSTEM [facility] Start: 08-28-2023 End: 08-28-2023 ambulatory PROVIDER NOT IN SYSTEM [facility] Start: 08-28-2023 End: 08-28-2023 Office outpatient new 45 minutes Aneta Valderrama MD Work Phone: [facility] Comment on above: Spondylolisthesis of lumbar region (Primary Dx); Lumbar radiculopathy Start: 08-06-2023 End: 08-06-2023 Emergency department patient visit PROVIDER NOT IN SYSTEM [facility] Procedures Date Procedure Procedure Detail Performing Clinician Start: 04-21-2024 Follow-up visit Follow-up ERICK SIMENTAL Start: 12-24-2023 Rmvl melly cvc w/o sub q port/soft tile setter Jaron Adan MD Work Phone: Start: 12-24-2023 GENERAL PROCEDURE Vin Maria DBA DEVELOPER-BAG LINER Work Phone: Start: 09-24-2023 Antibody screen LORI FERNANDO Comment on above: Performed By: #### X M #### [facility] (DEFAULT) [address] [place] [address] Start: 09-18-2023 MRI of cervical spin e [...] single view Physician None Work Phone: Start: 09-12-2023 MRI of lumbar spine with contrast Physician [...] peritoneum Physician None Work Phone: Abdominal hysterectomy Melba walker [place] Arthroscopic repair of rotator cuff Fahad Brannon Comment on above: right section Fahad orantes History of surgical procedure on cervical spine Fahad Brannon Plan of Treatment Date Care Activity Detail Author Start: 11-07-2024 Tetanus vaccination [facility] Start: 07-25-2024 Influenza vaccination Influenza Vaccine (#1) [facility] Start: 11-28-2023 End: 11-28-2023 Patient encounter procedure 11/28/2023 11:00 AM EST Office Visit Infectious Diseases Care [facility] [address] [place] [id number] Rajendra Oliver MD [address] [place] [phone] Infectious Diseases Care [facility] Start: 11-14-2023 End: 11-14-2023 Patient encounter procedure 11/14/2023 1:15 PM EST Office Visit [facility] [address] [place] [address] Randall Wells, SHELBYBS [address] [place] [address] [facility] Start: 10-14-2023 End: 10-14-2023 Patient encounter procedure 10/14/2023 2:30 PM EST Office Visit [facility] [address] [place] [address] Aneta Valderrama MD [address] [place] [address] [facility] Start: 09-18-2023 [facility] Start: 09-18-2023 Patient discharge [facility] Start: 09-18-2023 Cervical arthrodesis by anterior technique Anterior Cervical Discectomy & Fusion (Not Applicable) [facility] Start: 09-18-2023 Bedrest [facility] Start: 09-18-2023 Referral to general surgeon [facility] Start: 09-17-2023 Catheterization of vein [facility] Start: 09-17-2023 [facility] Start: 09-17-2023 Assessment of fluid loss from wound [facility] Start: 09-17-2023 Maintenance of tube [facility] Start: 09-17-2023 Vital signs measurements [facility] Start: 09-16-2023 Urinary catheter care management [facility] Start: 09-15-2023 Administrative procedure [facility] Start: 09-15-2023 Urinary catheter care management [facility] Start: 09-13-2023 Disease process or condition education [facility] Start: 09-13-2023 Notification of physician [facility] Start: 09-13-2023 Oxygen therapy [facility] Start: 09-13-2023 Patient transfer [facility] Start: 09-13-2023 Physical therapy assessment [facility] Start: 09-13-2023 Application of ice collar, cap or bag [facility] Start: 09-13-2023 Encouragement of deep breathing and coughing exercises [facility] Start: 09-13-2023 Measurement of urine output [facility] Start: 09-13-2023 Measuring intake and output [facility] Start: 09-13-2023 Removal of urinary catheter [facility] Start: 09-13-2023 Advance diet as tolerated [facility] Start: 09-13-2023 Bathing patient [facility] Start: 09-13-2023 Giving encouragement to perform activity [facility] Start: 09-13-2023 Measuring intake and output [facility] Start: 09-12-2023 Consultation [facility] Start: 09-10-2023 Referral to infectious diseases physician [facility] Start: 09-09-2023 Occupational therapy assessment [facility] Start: 09-09-2023 Physical therapy procedure [facility] Start: 09-08-2023 Assessment of fluid loss from wound [facility] Start: 09-08-2023 Maintenance of tube [facility] Start: 09-08-2023 Vital signs measurements [facility] Start: 09-08-2023 Hospital admission, emergency, from emergency room [facility] Start: 09-08-2023 Referral to service [facility] Start: 09-08-2023 Vital signs measurements [facility] Start: 09-08-2023 Referral to general surgeon [facility] Start: 07-25-2023 Influenza vaccination [facility] Start: 2019 Administration of herpes zoster vaccine Zoster Vaccines (1 of 2) [facility] Start: 2019 Screening for malignant neoplasm of colon Flexible sigmoidoscopy [facility] Start: 2019 Zoster vaccine hzv live for subcutaneous use ZOSTER (SHINGLES) VACCINE (1 of 2) [facility] Start: 2014 Screening for malignant neoplasm of colon COLORECTAL CANCER SCREENING DISCUSSION [facility] Start: 2009 Lipid panel LIPID SCREENING [facility] Start: 2009 Screening for malignant neoplasm of breast [facility] Start: 1999 Screening for malignant neoplasm of cervix [facility] Start: 1990 Screening for malignant neoplasm of cervix [facility] Start: 1987 Hepatitis C screening Hepatitis C Screening [facility] Start: 1984 HIV screening [facility] Start: 1981 Depression screening using PHQ-9 (Patient Health Questionnaire 9) score Depression Screening (PHQ-2/9) [facility] Start: 1972 History and physical examination, annual for health maintenance Wellness Visit [facility] Start: 1969 COVID-19 Vaccine (#1) COVID-19 Vaccine (#1) [facility] Start: 1969 Hepatitis B vaccination HEP B VACCINE (1 of 3 - 3-dose series) [facility] Start: 1969 Medicare Annual Wellness (AWV) Medicare Annual Wellness (AWV) [facility] Start: 1969 Screening for malignant neoplasm of colon [facility] End: 10-27-2023 MR Cervical spine WO and W contrast IV MRI SPINE CERVICAL WITH AND WITHOUT CONTRAST Imaging Routine Bacteremia 1 Occurrences starting 10/27/2023 until 10/27/[address] [facility] Comment on above: 1 Occurrences starting 10/27/2023 until 10/27/2023 Patient Education How to Prevent Surgical Site Infections Anterior Cervical Fusion (DC) Laminectomy (DC) General Anesthesia (DC) [facility] Work Phone: Patient referral [facility] Work Phone: Rmvl melly ctr vad w/s ubq port/soft tile setter ctr/prph insj REMOVAL CENTRAL VENOUS ACCESS DEVICE TUNNELED W/ PORT PUMP Methicillin susceptible Staphylococcus aureus infection as the cause of diseases classified elsewhere [facility] End: 08-28-2024 XR Lumbar Spine Standard with Flex/Ext 4+ Views XR Lumbar Spine Standard with Flex/Ext 4+ Views Imaging Routine Spondylolisthesis of lumbar region Lumbar radiculopathy 1 Occurrences starting 08/28/2023 until 08/28/2024 [facility] Work Phone: Comment on above: 1 Occurrences starting 08/28/2023 until 08/28/2024 Payers Date Payer Category Payer Medicaid [id number] 2022 Medicare [id number] 2012 Medicare [id number] 2012 Medicare [id number] 1969 Unknown [id number] 2.16. 840.1.143108.3.579.2. 1969 Unknown [id number] 2.16. 840.1.546276.3.579.2. 1969 Unknown [id number] 2.16. 840.1.953283.3.579.2. 1969 Unknown [id number] 2.16. 840.1.718954.3.579.2. 1969 Unknown [id number] 2.16. 840.1.875313.3.579.2. 1969 Unknown [id number] 2.16.84 0.1.866170.3.579.2.1259 1969 Unknown [id number] 2.16.8 40.1.314030.3.579.2.727 1969 Unknown [id number] 2.16. 840.1.681615.3.579.2.594 1969 Unknown [id number] 2.16. 840.1.650850.3.579.2.594 1969 Unknown [id number] 2.16. 840.1.689310.3.579.2.594 1969 Unknown [id number] 2.16. 840.1.339878.3.579.2.594 1969 Unknown [id number] 2.16. 840.1.699066.3.579.2.594 1969 Unknown [id number] 2.16. 840.1.976836.3.579.2.594 1969 Unknown [id number] 2.16. 840.1.151833.3.579.2.594 1969 Unknown [id number] 2.16.8 40.1.540661.3.579.2.1286 1969 Unknown [id number] 2.16.8 40.1.921825.3.579.2.1286 1969 Unknown [id number] 2.16.8 40.1.306320.3.579.2.1286 1969 Unknown [id number] 2.16.84 0.1.377179.3.579.2.128 1969 Unknown [id number] 2.16.84 0.1.675938.3.579.2.128 1969 Unknown [id number] 2.16.84 0.1.966382.3.579.2.1286 1969 Unknown [id number] 2.16.84 0.1.600731.3.579.2.1286 1969 Unknown [id number] 2.16.84 0.1.861606.3.579.2.1286 1969 Unknown [id number] 2.16.84 0.1.296611.3.579.2.6 1969 Unknown [id number] 2.16.84 0.1.726166.3.579.2.1286 1969 Unknown [id number] 2.16.84 0.1.103000.3.579.2.1286 1923 Medicaid [id number] Self-pay Unknown [id number] 2.16.8 40.1.809781.3.579.2.139 Social History Date Type Detail Facility Start: 08-06-2023 Tobacco smoking status NHIS Never smoked tobacco [facility] Start: 08-06-2023 Tobacco use and exposure Smokeless tobacco non-user [facility] Start: 08-28-2023 Alcohol intake Ex-drinker (finding) [facility] Start: 08-06-2023 History of Social function [facility] Start: 08-06-2023 End: 09-05-2023 Tobacco use panel [facility] Start: 1970 Sex Assigned At Not on file [facility] Start: 09-13-2023 End: 09-13-2023 Tobacco smoking status NHIS Ex-smoker (finding) [facility] Start: 09-13-2023 Socially/Occasionally [facility] [place] Start: 09-13-2023 Cigarettes [facility] Start: 09-13-2023 < 1 pack per day [facility] Start: 09-08-2023 Nicotine [facility] Start: 1970 Sex Assigned At Female [facility] Start: 03-24-2024 Tobacco smoking status KYIS Tobacco smoking consumption unknown [facility] Start: 02-05-2024 Tobacco smoking status Heavy tobacco smoker (finding) [facility] NEGATED: Highlighted row [facility] Medical Equipment Procedure Code Equipment Code Equipment Origin al Text Equipment Identifier Dates 6fr 2 Lumen Sharonda r Injectable Microintroducer Tray Catheter - [id number] [facility] Start: 09-30-2023 Comment on above: Description: Implant time-out completed by intra-procedural staff including this RN, chemical engineering technician, and performing physician. The following was [...] Assessment Result Facility 02-05-2024 Functional Status N/A [facility] 09-14-2023 Functional status Home Situation Lives Al one [facility] Work Phone: 09-08-2023 Functional status Yes [facility] Work Phone: Mental Status Date Assessment Result Facility 09-08-2023 Cognitive function Oriented to P erson, Place and Time [facility] Work Phone: Clinical Notes 08-28-2023 to 01-19-2025 Telephone Encounter - Elvia Bhatia NP - 01/19/2025 10:23 AM ESTTelephone Encounter - Elvia Bhatia NP - 01/19/2025 10:23 AM ESTTelephone Encounter - Elvia Bhatia NP - 01/10/2025 4:55 PM EST Note Date & Type Note Facility 01-19-2025 Telephone encounter Note Requested Prescriptions Signed Prescriptions Disp Refills fentaNYL (DURAGESIC) 75 MCG/HR 10 patch 0 Sig: Place 1 patch over 72 hours on the skin every 3rd (third) day Authorizing Provider: ELVIA BHATIA Pain is stable. [facility] 01-19-2025 Miscellaneous Notes Requested Prescriptions Signed Prescriptions Disp Refills fentaNYL (DURAGESIC) 75 MCG/HR 10 patch 0 Sig: Place 1 patch over 72 hours on the skin every 3rd (third) day Authorizing Provider: ELVIA BHATIA Pain is stable. documented in this encounter [facility] 01-10-2025 Telephone encounter Note Requested Prescriptions Signed Prescriptions Disp Refills oxyCODONE (Roxicodone) 5 MG immediate release tablet 90 tablet 0 Sig: Take 1 tablet (5 mg) by mouth every 8 (eight) hours if needed for severe pain Authorizing Provider: ELVIA BHATIA This is a patient at [facility]. She has dx of chronic pain. Her oxycodone is decreased to 5 mg q 8 hrs today. Will continue to monitor. [facility] 01-10-2025 Miscellaneous Notes Requested Prescriptions Signed Prescriptions Disp Refills oxyCODONE (Roxicodone) 5 MG immediate release tablet 90 tablet 0 Sig: Take 1 tablet (5 mg) by mouth every 8 (eight) hours if needed for severe pain Authorizing Provider: ELVIA BHATIA This is a patient at [facility]. She has dx of chronic pain. Her oxycodone is decreased to 5 mg q 8 hrs today. Will continue to monitor. documented in this encounter [facility] 12-15-2024 Telephone encounter Note Requested Prescriptions Signed Prescriptions Disp Refills fentaNYL (DURAGESIC) 75 MCG/HR 10 patch 0 Sig: Place 1 patch over 72 hours on the skin every 3rd (third) day Authorizing Provider: ELVIA BHATIA [facility] 12-15-2024 Miscellaneous Notes Requested Prescriptions Signed Prescriptions Disp Refills fentaNYL (DURAGESIC) 75 MCG/HR 10 patch 0 Sig: Place 1 patch over 72 hours on the skin every 3rd (third) day Authorizing Provider: ELVIA BHATIA documented in this encounter [facility] 12-11-2024 Telephone encounter Note Requested Prescriptions Signed Prescriptions Disp Refills ALPRAZolam (Xanax) 0.5 MG tablet 90 tablet 5 Sig: Take 1 tablet (0.5 mg) by mouth in the morning and 1 tablet (0.5 mg) in the evening and 1 tablet (0.5 mg) before bedtime. Authorizing Provider: ELVIA BHATIA [facility] with dx of anxiety disorder. [facility] 12-11-2024 Miscellaneous Notes Requested Prescriptions Signed Prescriptions Disp Refills ALPRAZolam (Xanax) 0.5 MG tablet 90 tablet 5 Sig: Take 1 tablet (0.5 mg) by mouth in the morning and 1 tablet (0.5 mg) in the evening and 1 tablet (0.5 mg) before bedtime. Authorizing Provider: ELVIA BHATIA This is a new site patient with dx of anxiety disorder. documented in this encounter [facility] 11-25-2024 Telephone encounter Note Fentanyl increased to 75 mcg patch, 50 mcg patch dc'd. [facility] 11-25-2024 Miscellaneous Notes Fentanyl increased to 75 mcg patch, 50 mcg patch dc'd. documented in this encounter [facility] 11-22-2024 Telephone encounter Note Requested Prescriptions Signed Prescriptions Disp Refills oxyCODONE (Roxicodone) 5 MG immediate release tablet 120 tablet 0 Sig: Take 1 tablet (5 mg) by mouth every 6 (six) hours if needed for severe pain Authorizing Provider: ELVIA BHATIA Refill for oxycodone is sent for this new site patient today. [facility] 11-22-2024 Miscellaneous Notes Requested Prescriptions Signed Prescriptions Disp Refills oxyCODONE (Roxicodone) 5 MG immediate release tablet 120 tablet 0 Sig: Take 1 tablet (5 mg) by mouth every 6 (six) hours if needed for severe pain Authorizing Provider: ELVIA BHATIA Refill for oxycodone is sent for this new site patient today. documented in this encounter [facility] 11-22-2024 Telephone encounter Note Requested Prescriptions Signed Prescriptions Disp Refills fentaNYL (DURAGESIC) 50 MCG/HR 10 patch 0 Sig: Place 1 patch over 72 hours on the skin every 3rd (third) day Authorizing Provider: ELVIA BHATIA Refill of fentanyl is sent for this [facility] patient today. [facility] 11-22-2024 Miscellaneous Notes Requested Prescriptions Signed Prescriptions Disp Refills fentaNYL (DURAGESIC) 50 MCG/HR 10 patch 0 Sig: Place 1 patch over 72 hours on the skin every 3rd (third) day Authorizing Provider: ELVIA BHATIA Refill of fentanyl is sent for this [facility] patient today. documented in this encounter [facility] 10-23-2024 Telephone encounter Note Requested [...] Authorizing Provider: ELVIA BHATIA Nurse Edda from [facility] called to notify that the pt is increasingly drowsy and hard to awaken today. Her Fentanyl patch is decreased to 50 mcg today, down from 75 mcg/hr. Her alprazolam is is decreased to 0.5 mg q 12, down from 1 mg q 12. Her oxycodone is decreased from 10 mg to 5 mg q 6 prn for breakthrough pain. [facility] 10-23-2024 Miscellaneous Notes Requested Prescriptions Signed Prescriptions Disp Refills fentaNYL (DURAGESIC) 50 MCG/HR 10 patch 0 Sig: Place 1 patch over 72 hours on the skin every 3rd (third) day Authorizing Provider: ELVIA BHATIA ALPRAZolam (Xanax) 0.5 MG tablet 60 tablet 2 Sig: Take 1 tablet (0.5 mg) by mouth every 12 (twelve) hours Authorizing Provider: ELVIA BHATIA Nurse Edda from [facility] called to notify that the pt is increasingly drowsy and hard to awaken today. Her Fentanyl patch is decreased to 50 mcg today, down from 75 mcg/hr. Her alprazolam is is decreased to 0.5 mg q 12, down from 1 mg q 12. Her oxycodone is decreased from 10 mg to 5 mg q 6 prn for breakthrough pain. documented in this encounter [facility] 10-12-2024 Telephone encounter Note Rx for oxycodone is sent for this new site patient. Dx of G89.4, F45.42, R52. [facility] 10-12-2024 Miscellaneous Notes Rx for oxycodone is sent for this new site patient. Dx of G89.4, F45.42, R52. documented in this encounter [facility] 10-04-2024 Telephone encounter Note Rx for oycodone 10 mg TID prn is sent today, #90 tabs 0 refills. For This new site patient. [facility] 10-04-2024 Miscellaneous Notes Rx for oycodone 10 mg TID prn is sent today, #90 tabs 0 refills. For This new site patient. documented in this encounter [facility] 09-29-2024 Telephone encounter Note Rx for Fentanyl patch is sent, 75 mcg for this new site patient. [facility] 09-29-2024 Miscellaneous Notes Rx for Fentanyl patch is sent, 75 mcg for this new site patient. documented in this encounter [facility] 09-20-2024 Telephone encounter Note Rx for fentanyl patch is sent for this new site patient today. The routine oxycodone will be discontinued when the fentanyl patch starts. She will continue with the prn dose. Plan to taper this down also. [facility] 09-20-2024 Miscellaneous Notes Rx for fentanyl patch is sent for this new site patient today. The routine oxycodone will be discontinued when the fentanyl patch starts. She will continue with the prn dose. Plan to taper this down also. documented in this encounter [facility] 09-18-2024 Telephone encounter Note GDR [...] to decrease the PRN dose next month. [facility] 09-18-2024 Miscellaneous Notes GDR for [...] dose next month. documented in this encounter [facility] 09-09-2024 Telephone encounter Note Rx for alprazolam is sent for this [place] patient. [facility] 09-09-2024 Miscellaneous Notes Rx for alprazolam is sent for this [place] patient. documented in this encounter [facility] 08-18-2024 Telephone encounter Note Rx for oxycodone 10 mg sent, # 180 tablets for this [place] patient. [facility] 08-18-2024 Miscellaneous Notes Rx for oxycodone 10 mg sent, # 180 tablets for this [place] patient. documented in this encounter [facility] 08-11-2024 Telephone encounter Note Rx for a 30 day supply of oxycodone is sent for this [place] patient today. [facility] 08-11-2024 Miscellaneous Notes Rx for a 30 day supply of oxycodone is sent for this [place] patient today. documented in this encounter [facility] 07-21-2024 Note Chief Complaint: low back pain 07/21/2024 History of spine infection. Patient able to walk with walker since late April. Patient has numbness on right side from waist down, but and pain in the bones . 04/21/2024 History of spine infection, MSSA bacteremia and epidural abscess vertebral osteomyelitis, surgery in [facility] and transferred later to [facility], advised no [...] Disp: , Rfl (more content not included)... [facility] 2024 Note Infectious Diseases - Clinic note - Please contact us via [employer] during business hours. If no response in 15 min, call / page through the ladies underwear operator Division of Infectious Diseases [employer] for communication via [employer] during business hours (8 AM - 5 PM). If I do not respond within 30 minutes, please call the answering service. Patient name: Geovanny Mejía Patient Today's Date and Time: 2024, 3:42 PM PCP: Dr. Demetri Liu Residing: [facility] Impression/Recommendations : Cervical C6-C7, Thoracic T4-T11, Lumbar [...] ID clinic for a follow-up visit from [facility]. Patient continues Doxycycline 100 mg BID and denies any side effects. Today, the patient is completing a follow up. She is currently residing at [facility] and is present with an aide from [...] progress note was completed using a voice spd tech system. Every effort was made to ensure accuracy; however, inadvertent computerized spd tech errors may be present. Thank you for allowing us to participate in the care of this patient. Patel Beyer, [facility] Infectious Disease Nurse Practitioner I prefer to be contacted via [employer] for non-urgent matters. After hours, please call [phone] to have the on-call physician contacted. [facility] 04-21-2024 Note Chief Complaint: low back pain History of spine infection, MSSA bacteremia and epidural abscess vertebral osteomyelitis, surgery in [facility] and transferred later to [facility], advised no [...] capsule, Take 2 (more content not included)... [facility] 02-18-2024 Note 02/18/2024 Subjective Patient ID: Geovanny Mejía is a 53 y.o. female who presents for Vertebral osteomyelitis . HPI: This is a 53 year old patient presenting to infectious disease clinic [facility] ambulating in [facility]. Of note patient was [...] ID clinic for a follow-up visit from [facility]. Patient continues Doxycycline 100 mg BID and [...] by mouth in (more content not included)... [facility] 02-11-2024 Note Attestation signed by Erick [...] since her gabapentin was [facility] at the [facility]. She is currently on Doxycycline for maintenance antibiotic therapy. No fever, chills, nausea or vomiting. She is continuing to do PT at the nursing facility, she is having movement in the left leg, and is starting to have movement in the right leg. 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 Her movement has drastically [...] and epidural abscess vertebral osteomyelitis, [facility] [facility], advised no [...] or split., Dis (more content not included)... [facility] 02-05-2024 Evaluation + Plan note Extrac sai from: Title:chronic pain Author:Fahad Brannon DO Date:02/05/24 Patient is presenting with [...] with any questions or concerns that arise. [facility]02-28-2024 Note01/21/24 Subjective Patient ID: Geovanny Mejía is a 53 y.o. female who presents for MSSA bacteremia . HPI: This is a 53 year old patient presenting to infectious disease clinic from a usp ambulating in wheelchair. Of note patient was [...] SPRAY INTO 1 NOSTRI (more content not included)...[facility]01-31-2024 Nurse Surgical operation note* Syl Castro [...] car for discharge home per MD order. [facility]01-31-2024 Nurse Note* Syl Castro RN - [...] home per MD order. [facility] note* LAVELLE Ponce - 12/24/2023 [...] BLOOD LOSS: < 2 mL COMPLICATIONS: None [facility]01-31-2024 Procedure note* LAVELLE Ponce - 12/24/2023 [...] 2 mL COMPLICATIONS: None documented in this [facility]01-31-2024 Hospital Discharge instructions* Discharge Instructions* Syl Castro [...] or on Weekends, please call the Hospital Vba Developer at [phone] and ask them for the Interventional Slabbing Machine Operator On-Call February 24, 2020. The [facility] and [employer] [place]. This handout is for informational purposes only. Talk with your doctor or health care team if you have any questions about your care. For more health information, call the [facility] at [phone] or visit [email or web address] documented in [facility] History and physical note* Marco Cabral APRN-MONIK - 12/24/2023 11:01 AM EST PERIOPERATIVE INTERVENTIONAL [...] the procedure and matches procedure being performed. [facility] Work Phone: 1(770) 159-226901-31-2024 History and physical note* LAVELLE Ponce - [...] matches procedure being performed. [facility] Nurse Note* Nursing Notes - Syl Castro RN - 12/24/2023 10:59 AM EST Procedure completed of tunneled line removal by IR VILMA E. Marianna. Line removed with tip intact. Pt tolerated procedure well with local numbing agent. Provided post [facility] discharge education materials and handouts to pt. Answered all pt questions. Phone numbers given for [facility] scheduling/nurse line ([phone]), voices understanding of materials.Upper chest dressing clean, dry, and intact, no swelling or shadowing noted. Pt to be escorted out of procedure room for discharge home upon completion of bedrest. [facility]01-31-2024 Miscellaneous Notes* Nursing Notes - Syl Castro RN - 12/24/2023 10:59 AM EST Procedure completed of tunneled line removal by IR VILMA E. Marianna. Line removed with tip intact. Pt tolerated procedure well with local numbing agent. Provided post [facility] discharge education materials and handouts to pt. Answered all pt questions. Phone numbers given for [facility] scheduling/nurse line ([phone]), voices understanding of materials.Upper chest dressing clean, dry, and intact, no swelling or shadowing noted. Pt to be escorted out of procedure room for discharge home upon completion of bedrest. [facility] NoteChief Complaint: low back pain History of epidural abscess Patient CVID common variable immune deficiency, used to see DR. Troy Early, IVIG treatment A 53 year old lady who has had MSSA bacteremia and epidural abscess vertebral osteomyelitis, surgery in [facility] and transferred later to [facility], advised no [...] She was taken by Dr. Clemons in [place] for a thoracic irrigation and debridement for [...] at all [employer] (more content not included)...[facility] 12-12-2023 NoteFacility called back and would like order for removal of Cath after 12/20/23 or after completed antibiotics. They also stated a referral for spinal was supposed to be put in. They have the echo and Orthopedic referral. Fax- [phone] NoteInfectious Diseases - outpatient Progress Note [...] vertebral osteomyelitis she has had washout at [facility] and was transferred to [facility] and orthospine over there advised no surgery and to continue iv antibiotics she is on her 3 months course of iv oxacillin And also she had bilateral pleural effusions and the records are under the media tab She has had another MRI spine area done 11/12 at [facility] still shows persistent abnormalities in [...] planning to quit Born and raised in [place] but has family in [place] and lived there since she was 17 was in [place] visiting her father when she got acute [...] progress note was completed using a voice spd tech system. Every effort was made to ensure accuracy; however, inadvertent computerized spd tech errors may be present. Thank you for allowing me to see the patient Please call for any questions or concerns, Moshe Ojeda MD [place] Infectious diseases P:[phone] County Memorial Hospital11-23-2023 Progress note Author Charity Adames [facility] October 16, 2023 7:23am Note Date/Time September 12, 2023 5 :19pm [facility] Medical Records Patient: GEOVANNY MEJÍA [address] : 1970 [place], [place] [address] Location: [phone] Unit #: [id number] Pharmacy Daily Note Hugo French Service Dt/Tm: 09/12/23 1709 Pharmacy - Patient Information Patient Information: Name: GEOVANNY MEJÍA Age/Sex: 53 F Admit Date: 09/08/23 Admit Dx: INTRA ABDOMINAL ABCESS. Vital Signs: Vital Signs - 8 hr Temp Pulse Resp BP Pulse Ox O2 Flow Rate 09/12/23 16:22 99.6 F 104 H 20 118/67 92 2.0 09/12/23 12:34 98.5 F 98 16 118/66 93 Pharmacy Consult - Vancomycin Consulting Physician: Anksuh Infectious Diagnosis: intra abdominal abscess Dosing Weight: 66kg Antibiotic Regimen: Antimicrobial: Date Initiated: Date Completed: Vanc 09/12 Cefazolin 09/10 xvanc 09/08 09/09 xzosyn 09/08 09/10 Assessment: Vancomycin AUC/MILKA Dosing Dosing Model: 1 compartment Goal AUC/MILKA: mg-hr/L Date: sCr: CrCL: Current Orders: Level 1: Level 2: AUC24: Dose Change: 10/20/23 0.57 97.43 --- --- --- --- Vanc [...] 09/13 @ 0900 following first maintenance dose. -[facility] 09/08 Pt started on broad spectrum abx [...] on 10/15/23 1536 <<Signature on File>> < 6787 <<Signature on File>> <Electronically signed by Charity Adames PharmD> [facility] Work Phone: 1(513) 718-979911-21-2023 Progress note Author Jaret Ramírez (ID) [facility] October 14, 2023 8:13pm Note Date/Time September 15, 2023 7 :21pm [facility] Medical Records Patient: GEOVANNY MEJÍA [address] : 1970 [place], [place] [address] Location: [address] [place] [address] Unit #: [id number] Progress Note - Antibiotics Jaret Ramírez (ID) [...] has been seen at the facility in [place], [place] where she was noted to have significant back pain and discomfort. An operation was recommended at that time. It was decided to transfer her care to a neurological/neurosurgical service in [place], [place]. The patient was deciding whether or [...] Ramírez (KISHA) > Report Signed by: on [facility] Work Phone: 1([phone]) 777-749811-21-2023 Progress note Author Charity Adames [facility] October 14, 2023 7:24am Note Date/Time September 13, 2023 2 :24pm [facility] Medical Records Patient: GEOVANNY MEJÍA. : 1970 [place], [place] [address] Location: [phone] Unit #: [id number] Pharmacy Daily Note Renae Garciaman Service Dt/Tm: 09/13/23 1405 Pharmacy - Patient [...] 09/13 @ 0900 following first maintenance dose. -[facility] 09/08 Pt started on broad spectrum abx [...] Report Signed by: Renae Duenas on 10/13/23 9153 <<Signature on File>> < 7305 <<Signature on File>> <Electronically signed by Charity Adames PharmD> [facility] Work Phone: 1(658) 707-723311-20-2023 Progress note Author Jaret Ramírez (ID) [facility] October 13, 2023 7:43pm Note Date/Time September 13, 2023 3 :24pm [facility] Medical Records Patient: GEOVANNY MEJÍA. : 1970 [place], [place] [address] Location: [address] [place] [address] Unit #: [id number] Progress Note - Antibiotics Jaret Ramírez (ID) [...] abdominal abscess. TE 00:30 Entered by: Jaret PerezID)MD on 09/13/23 1523 Report Signed by: Jaret Ramírez MD (ID) on 10/13/231942 <<Signature on File>> <Electronically signed by Jaret Ramírez (KISHA) > Report Signed by: on [facility] Work Phone: 1([phone]) 266-415211-18-2023 Consult note Author Jaret Ramírez (KISHA) [facility] October 11, 2023 3:36pm Note Date/Time September 10, 2023 8 :54pm [facility] Medical Records Patient: GEOVANNY MEJÍA. : 1970 [place], [place] [address] Location: [facility] [phone] Unit #: [id number] Consultation Jaret Ramírez (JOHN MEJÍA Service Date: 09/10/23 History of Present Illness [...] a 53-year-old female, was transferred from the [facility] in [facility]. The patient was noted to have a acute onset of abdominal pain. The patient was seen and evaluated on transfer to the [facility]. On the evaluation a left sided retroperitoneal [...] 09/08/23 @ 14:50 by Bryant Epperson APRN, BAG LINER) No pertinent past surgical history Current Medications [...] Replacement Protocol 1 Ea Ea) 1 catrina MEJÍA DIRECTED PRN; Protocol PRN [...] mg Hydromorphone HCl (Hydromorphone 6 Mg/30 Ml Quality Compliance Manager.Syring) 6 mg IV MATERIALS AND PROCESSES MANAGER DIRECTEDSCH Stop: 12/17/23 11:31 Last Admin: 09/10/23 [...] Catrina Fuller) 1 catrina MEJÍA .PHA TO [facility] Stop: 12/17/23 11:31 Ondansetron HCl (Ondansetron 4 [...] History (Updated 09/20/23 @ 00:01 by Background Dasalbador) Intra-abdominal abscess DRAINED Social History Alcohol Amount: [...] % (Manual) 4.0 % (15-45) L 09/08/23 18: Monocytes % (Manual) 1.0 % (2-10) L 09/08/23 18:27 Abs Neuts (Manual) 96526 /cmm (2116-2634) H 09/08/23 18:27 Abs Lymphs (Manual) 996 /cmm (6329-0912) L 09/08/23 18:27 Abs Monocytes (Manual) 249 /cmm (0-800) 09/08/23 18:27 Absolute Eos (Manual) 0 /cmm (0-500) 09/08/23 18: Abs Basophils (Manual) 0 /cmm (0-200) 09/08/23 18:27 Anisocytosis 1+ 09/08/23 18:27 RBC Morph Comment Test not indicated 09/08/23 18:27 Sodium 134 mEq/L (135-145) L 09/10/23 05:35 [...] 05:35 Lactic Acid 1.1 mmol/L (0.5-2.0) 09/08/23 18:27 Calcium 7.70 mg/dL (8.8-10.5) L 09/10/23 05:35 Magnesium 2.1 mg/dL (1.8-2.5) 09/10/23 05:35 Total Bilirubin 0.4 mg/dL (0.2-1.0) 09/08/23 18:27 [...] Diagnostic Data: 09/10/23 08:00 CT Abd/Pelvis W/Contrast 69874 Routine Assessment and Plan (1) Intra-abdominal abscess: [...] Jaret Ramírez MD (ID) Dictated by: Jaret LUNSFORD) on 09/10/232052 Entered by: Jaret Ramírez MD (ID) on 09/10/232052 Report Signed by: Jaret Ramírez MD (ID) on 10/11/23 7136 <<Signature on File>> <Electronically signed by Jaret LUNSFORD) > Report Signed by: on [facility] Work Phone: 1([phone]) 697-902511-18-2023 [facility] Medical Records Patient: GEOVANNY MEJÍA [address] : 1970 [place], [place] [address] Location: [facility] [phone] Unit #: [id number] Consultation Jaret Ramírez MD (ID) Service Date: [...] a 53-year-old female, was transferred from the [facility] in [facility]. The patient was noted to have a acute onset of abdominal pain. The patient was seen and evaluated on transfer to the [facility]. On the evaluation a left sided retroperitoneal [...] 09/08/23 @ 14:50 by Bryant Epperson APRN, BAG LINER) No pertinent past surgical history Current Medications [...] mg Hydromorphone HCl (Hydromorphone 6 Mg/30 Ml Quality Compliance Manager.Syring) 6 mg IV MATERIALS AND PROCESSES MANAGER DIRECTED [facility] Stop: 12/17/23 11:31 Last Admin: 09/10/23 20:41 [...] 2 mg Non-Formulary Medication (Pharmacy Communication 1 Ea Catrina) 1 catrina MEJÍA .PHA TO PLACE [facility] Stop: 12/17/23 11:31 Ondansetron HCl (Ondansetron 4 Mg/2 Ml Vial) 4 mg IV PUSH Q6HPRN PRN PRN Reason: Nausea and Vomiting Stop: 12/16/23 13:20 Polyethylene Glycol (Polyethylene Glycol 17 Gm Pkg) 17 gm PO DAILYPRN PRN PRN Reason: Constipation Stop: 12/16/23 13:20 Sodium Chloride (Sodium Chloride 0.9% 10 Ml Syr (Flush)) 5 ml FLUSH BID [facility] Stop: 12/18/23 21:01 Allergies/Adverse Reactions No Known Drug Allergies Allergy (Verified 09/08/23 09:58) Home Medications No Home Meds 09/09/23 [Confirmed 09/09/23] Past Medical History Medical History (Updated 09/20/23 @ 00:01 by Background Daemon) HTN (hypertension) Past Surgical History Surgical History (Updated 09/20/23 @ 00:01 by Background Rebeka) Intra-abdominal abscess DRAINED Social History Alcohol Amount: Socially/Occasionally Street Drugs: None Smoking Status: Former smoke (more content not included)...[facility]11-18-2023 Progress note Author Jaret Ramírez (ID) [facility] October 11, 2023 3:36pm Note Date/Time September 11, 2023 3 :23pm [facility] Medical Records Patient: GEOVANNY MEJÍA [address] : 1970 [place], [place] [address] Location: [facility] [phone] Unit #: [id number] Progress Note - Antibiotics Jaret Ramírez (ID) Service Dt/Tm: 09/11/23 1521 Antibiotic Note Results: Patient is resting comfortably. She still has pain in the abdomen but she controls that with the MATERIALS AND PROCESSES MANAGER pump which is beginning to make her [...] that is with the use of the MATERIALS AND PROCESSES MANAGER pump. This patient may continue to be a problem which may not be managed long-term by the percutaneous catheter drainage. * The patient has back pain and she claims she cannot move her legs. I did try to assess the situation but the patient was on her MATERIALS AND PROCESSES MANAGER pump and she was sedated to the point examination could not be performed. I suggested neuro consult. TE 00:30 Entered by: Jaret Ramírez (ID)MD on 09/11/23 1521 Report Signed by: Jaret Ramírez MD (ID) on 10/11/23 1536 <<Signature on File>> <Electronically signed by Jaret Ramírez (KISHA) > Report Signed by: on [facility] Work Phone: 1(305) 289-975511-16-2023 Consult note Author Rohit Pimentel [facility] October 09, 2023 5:39pm Note Date/Time September 08, 2023 2 :27pm [facility] Medical Records Patient: GEOVANNY [address]JÍA[address] : 1970 [place] [address] Location: [address] [place] [address] Unit #: [id number] Consultation Bryant Epperson APRN, CNP Service Date: [...] Time Seen: 14:00 Referring Physician: Willy Lechuga ([facility]) Reason for Consultation: Abdominal abscess History of Present Illness: Ms Mejía is a 53 y/o F who has a PMH of hypertension who was transferred from [facility] due to concerns for an intra-abdominal [...] (Updated 09/08/23 @ 14:48 by Willy Lechuga ([facility]), ) HTN (hypertension) Past Surgical History Surgical History (Updated 09/08/23 @ 14:50 by Bryant Epperson APRN, BAG LINER) No pertinent past surgical history Social History Smoking Status: Former smoker Type of Tobacco: Cigarettes Smoking Amount: < 1 pack per day Smoking Stop Date: 09/05/23 Family History (Updated 09/08/23 @ 14:51 by Bryant Epperson APRN, BAG LINER) Denies family history of No pertinent family [...] to follow cc: Rohit Pimentel MD; Bryant VALDERRAMA; None Dictated by: Bryant Epperson APRN, CNP on 09/08/23 1427 Entered by: LAVELLE Garcia on 09/08/23 1427 Report Signed by: Bryant VALDERRAMA on 09/08/23 1500 <<Signature on File>> <Electronically signed by Bryant Epperson APRN, CNP> Report Signed by: Rohit Pimentel MD on 10/09/23 1739 <<Signature on File>> <Electronically signed by Rohit Pimentel MD> [facility] Work Phone: 1(685) 280-241811-16-2023 [facility] Patient: GEOVANNY MEJÍA [address] : 1970 [place], [place] [address] Location: [phone] Unit #: [id number] Consultation Bryant Epperson APRN, CNP Service Date: [...] Time Seen: 14:00 Referring Physician: Willy Lechuga ([facility]) Reason for Consultation: Abdominal abscess History of Present Illness: Ms Mejía is a 53 y/o F who has a PMH of hypertension who was transferred from [facility] due to concerns for an intra-abdominal [...] (Updated 09/08/23 @ 14:48 by Willy Lechuga ([facility])MD) HTN (hypertension) Past Surgical History Surgical History [...] abscess: Plan Hospitalist attendi (more content not included)...[facility] 10-09-2023 Progress note Author Rohit Pimentel [facility] October 09, 2023 5:39pm Note Date/Time September 09, 2023 3 :24pm [facility] Medical Records Patient: GEOVANNY MEJÍA [address] : 1970 [place], [place] [address] Location: [facility] [phone] Unit #: [id number] Progress Note Surgical Ryanne Morales PA-C Service Dt/Tm: 09/09/23 1516 53 year old female with intraabdominal abscess. S/P IR drainage. Brian follow. IV antibiotics. Pain worsening and MATERIALS AND PROCESSES MANAGER started Patient seen and examined independently by [...] AVSS. Still continued high pain. Will add MATERIALS AND PROCESSES MANAGER pump for better pain control. Increased nausea. [...] H 09/09/23 10:20 Blood Pressure 111/96 H 10/17/23 10:20 Oxygen Saturation% 96 09/09/23 10:18 Liters [...] % (Manual) 1.0 L Abs Neuts (Manual) 20311 H Abs Lymphs (Manual) 996 L Abs [...] on 09/09/23 1527 <<Signature on File>> < 6029 <<Signature on File>> <Electronically signed by Rohit Pimentel MD> [facility] Work Phone: 1([phone]) 202-561511-16-2023 Progress note Author Rohit Pimentel [facility] October 09, 2023 5:39pm Note Date/Time September 10, 2023 2 :53pm [facility] Medical Records Patient: GEOVANNY MEJÍA. : 1970 [place], [place] [address] Location: [facility] [phone] Unit #: [id number] Progress Note Surgical Ryanne Morales PA-C Service Dt/Tm: 09/10/23 1447 53 year old male with intraabdominal abscess. S/P IR drainage. Brian follow. IV antibiotics. Pain worsening and MATERIALS AND PROCESSES MANAGER started and pain better controlled. repeat CCT [...] vitals reviewed. AVSS. Pain better controlled with MATERIALS AND PROCESSES MANAGER pump. NPO with meds okay. -flatus/-BM CT [...] on 09/10/23 1452 <<Signature on File>> < 1739 <<Signature on File>> <Electronically signed by Rohit Pimentel MD> [facility] Work Phone: 1(212) 252-116511-16-2023 Progress note Author Rohit Pimentel [facility] October 09, 2023 5:39pm Note Date/Time September 11, 2023 8 :17am [facility] Medical Records Patient: GEOVANNY MEJÍA. : 1970 [place], [place] [address] Location: [facility] [phone] Unit #: [id number] Progress Note Surgical Ryanne Morales PA-C Service Dt/Tm: 09/11/23 0814 53 year old male with intraabdominal abscess. S/P IR drainage. Brian follow. IV antibiotics. Pain worsening and MATERIALS AND PROCESSES MANAGER started and pain better controlled. repeat CCT [...] aureus Entered by: Ryanne Morales PA-C on 09/11/23 0814 Report Signed by: Ryanne Morales PA-C on 09/11/23 0817 <<Signature on File>> < 1739 <<Signature on File>> <Electronically signed by Rohit Pimentel MD> [facility] Work Phone: 1([phone]) 938-210111-16-2023 Progress note Author Rohit Pimentel [facility] October 09, 2023 5:39pm Note Date/Time September 12, 2023 8 :51am [facility] Medical Records Patient: GEOVANNY MEJÍA. : 1970 [place], [place] [address] Location: [address] [place] [address] Unit #: [id number] Progress Note Surgical Ryanne Morales PA-C Service [...] Entered by: Ryanne Morales PA-C on 09/12/23 0850 Report Signed by: Ryanne Morales PA-C on 09/12/23 1255 <<Signature on File>> < 1731 <<Signature on File>> <Electronically signed by Rohit Pimentel MD> [facility] Work Phone: 1(857) 125-912411-04-2023 Progress note Author Rohit Pimentel [facility] September 27, 2023 11:24am Note Date/Time September 15, 2023 5 :09pm [facility] Medical Records Patient: GEOVANNY MEJÍA [address] : 1970 [place], [place] [address] Location: [phone] Unit #: [id number] Status Note/Update Ryanne Morales PA-C Service Dt/Tm: 09/15/23 8184 Note: GEOVANNY MEJÍA is a 53 yr old F who was admitted on 09/08/23 for INTRA ABDOMINAL ABCESS. No surgical interventions required at this time with presentation improving, will sign off case. Entered by: Ryanne Morales PA-C on 09/15/231708 Report Signed by: Ryanne Morales PA-C on 09/15/231708 <<Signature on File>> < 1124 <<Signature on File>> <Electronically signed by Rohit Pimentel MD> [facility] Work Phone: 1([phone]) 605-801411-04-2023 Consult note Author Alec Clemons [facility] September 27, 2023 11:05am Note Date/Time September 13, 2023 2 :02am [facility] Medical Records Patient: GEOVANNY MEJÍA [address] : 1970 [place] [address] Location: [address] [place] [address] Unit #: [id number] Consultation Lucy Lara PA-C Service Date: 09/13/23 [...] past medical history of hypertension transferred from [facility] for abdominal pain on 09/08/2023. She was evaluated [facility] surgery and found to have left-sided retroperitoneal [...] (2-10) L 09/08/23 18:27 Abs Neuts (Manual) 32775 /cmm (3381-9848) H 09/08/23 18:27 Abs Lymphs (Manual) 996 /cmm (2628-7890) L 09/08/23 18:27 Abs Monocytes (Manual) 249 /cmm (0-800) 09/08/23 18:27 Absolute Eos (Manual) 0 /cmm (0-500) 09/08/23 18:27 Abs Basophils (Manual) 0 /cmm (0-200) 09/08/23 18:27 Anisocytosis 1+ 09/08/23 18:27 RBC Morph Comment Test not indicated 09/08/23 18:27 PT 18.5 Sec (9.6-13.3) H 09/13/23 00:49 [...] 09/12/23 10:31 CT Lumbar Spine W/[place] Cont 51376 Urgent 09/12/23 14:27 Lumbar Spine w/wo Contrast [...] point that 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 She has had difficulty walking since presentation [...] File>> <Electronically signed by Alec Clemons MD> [facility] Work Phone: 1(227) 594-922811-04-2023 [facility]Access [facility] Patient: GEOVANNY MEJÍA [address] : 1970 [place], [place] [address] Location: [phone] Unit #: [id number] Consultation Lucy Lara PA-C Service Date: 09/13/23 ADDENDUM: completed ROS. Negative with exception of what is mentioned in HPI Addendum Entered by: Lucy Lara PA-C on 09/26/23 at 0926 Addendum Signed by: Lucy Lara PA-C on 09/26/23 0926 < > Addendum Signed by: Alec Clemons MD on 09/27/23 1105 < > History of Present Illness Date of Consultation: 09/13/23 Time Seen: 01:30 History of Present Illness: GEOVANNY MEJÍA is a 53 yr old F who was admitted on 09/08/23 for INTRA ABDOMINAL ABCESS. 53-year-old female with past medical history of hypertension transferred from [facility] for abdominal pain on 09/08/2023. She was evaluated at [facility] surgery and found to have left-sided retroperitoneal [...] 09/12/23 10:31 CT Lumbar Spine W/O Cont 22448 Urgent 09/12/23 14:27 Lumbar Spine w/wo Contrast [...] point that 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 She has had difficulty walking since presentation [...] thoracic spine. I ex (more content not included)...[facility] 09-26-2023 History and physical note Author Willy Lechuga [facility] September 26, 2023 3:11pm Note Date/Time September 08, 2023 1 :58pm [facility] Medical Records Patient: GEOVANNY MEJÍA. : 1970 [place], [place] [address] Location: [phone] Unit #: [id number] [facility] and [facility] ADDENDUM: Past Medical History Medical History?(Updated 09/08/23 @ 14:48 by Willy Lechuga MD (SC[facility])) HTN (hypertension) Past Surgical History Surgical History?(Updated 09/08/23 @ 14:50 by Bryant Epperson APRN, MONIK) No pertinent past surgical history Social History Smoking Status:? Former smoker Type of Tobacco:? Cigarettes Smoking Amount:? < 1 pack per day Smoking Stop Date:? 09/05/23 Family History ?(Updated 09/08/23 @ 14:51 by Bryant Epperson, DBA DEVELOPER, BAG LINER) Denies family history of No pertinent family history Addendum Entered by: Willy Lechuga MD (SCP) on 09/26/23 at 1511 Addendum Signed by: Ankush PerezMENDOCINO [facility]OSPITALWilly Donaldson MD on 09/26/23 1511 <<Signature on [...] home medications on file, initially transferred from [facility] for possible intra-abdominal abscess. History and physical is limited due to no records available and patient was in pain at time of my clinical exam. As per EMR I did see that she had a left retroperitoneal fluid collection with moderate inflammation measuring4.7 X2.6X 4.5 cm with possible abscess formation. She was subsequently transferred to [facility] for general surgery consultation. On arrival as [...] (Updated 09/08/23 @ 14:48 by Willy Lechuga MD (SCP)) HTN (hypertension) Social History Smoking Status: Former [...] sciatica, rightside Plan: As above. cc: Willy Saunders ([facility]ika Lechuga MD; None Dictated by: Willy PerezMENDOCINO STATE HOSPITALAnika MEJÍA on 09/08/23 1354 Entered by: Willy Lechuga MD (SCP) on 09/08/23 1354 Report Signed by: Willy PerezMENDOCINO STATE HOSPITALAnika Lechuga MD on 09/08/23 1448 <<Signature on File>> <Electronically signed by Willy Lechuga MD (SCP)> Report Signed by: on [facility] Work Phone: 1(635) 200-753011-03-2023 [facility] Medical Records Patient: GEOVANNY MEJÍA [address]. : 1970 [place], [place] [address] Location: [address] [place] [address] Unit #: [id number] History and Physical Willy Lechuga MD (SCP) ADDENDUM: Past Medical History Medical History???(Updated 09/08/23 @ 14:48 by Willy Lechuga MD (SCP)) HTN (hypertension) Past Surgical History Surgical History???(Updated 09/08/23 @ 14:50 by Bryant Epperson APRN, BAG LINER) No pertinent past surgical history Social History Smoking Status:??? Former smoker Type of Tobacco:??? Cigarettes Smoking Amount:??? < 1 pack per day Smoking Stop Date:??? 09/05/23 Family History ???(Updated 09/08/23 @ 14:51 by Bryant Epperson APRN, BAG LINER) Denies family history of No pertinent family history Addendum Entered by: Willy Lechuga MD (SCP) on 09/26/23 at 1511 Addendum Signed by: Ankush PerezMENDOCINO [facility]OS[facility]ITALWilly Donaldson MD on 09/26/23 1511 < > Addendum Signed by: on Date of Entry Into Hospital: 09/08/23 Date of Service: 09/08/23 Time Seen: 13:54 Patient Information: Primary Care Provider: None Chief Complaint: INTRA ABDOMINAL ABCESS History Obtained From: Patient and EMR History of Present Illness: 53 old female with a past medical history of hypertension, no home medications on file, initially transferred from [facility] for possible intra-abdominal abscess. History and physical is limited due to no records available and patient was in pain at time of my clinical exam. As per EMR I did see that she had a left retroperitoneal fluid collection with moderate inflammation measuring 4.7 X2.6X 4.5 cm with possible abscess formation. She was subsequently transferred to [facility] for general surgery consultation. On arrival as [...] (Updated 09/08/23 @ 14:48 by Willy Lechuga ([facility])MD) HTN (hypertension) Social History Smoking Status: Former [...] (3) Back pain: Status: (more content not included)...[facility]10-30-2023 Progress note Author Evelyne Pena [facility] September 22, 2023 4:22pm Note Date/Time September 11, 2023 1 1:31am [facility] Case Management Patient: GEOVANNY MEJÍA. : 1970 [place] [address] Location: [phone] Unit #: [id number] Case Management Daily Note Evelyne Pena RN Service Date: 09/11/23 Case Mgmt Daily Note - Plan of Care Controls Technician Agrees with Attending and Consult Plan: Yes - Patient Preferences & Goals What is the patient's preference?: Home Care Recommended acute discharge goals: Home Care - Hospital Stay Days Day 1 Comment: 09/08 Met with patient in the room. Patient is from [place]. She is up here to visit her sister. Patient reporting she is normally independent. Doesnot have a PCP. Patient would like to use [facility] OP Pharm for meds. Planning to have her cousin pick her up at d/c. Contact is her cousin Ursula. Denies having LW/dPOA. Controls Technician: Evelyne Pena, RN Day 2 Comment: 09/09 Met with patient in the room. Patient asking to get up and move around. PT/OT to eval. S/p L ABD drain placement. Patient agreeable to [facility] for drain mgmt if needed. Reporting she will be going to [facility] at d/c to staywith her cousin Ursula. CM spoke with patients cousin Ursula via telephone who reports she is ok with [facility] coming to her home if patient would go there at d/c. Ursula reporting patient was homeless in [place] and recently move to [place] with faith Amaya. Controls Technician: Evelyne Pena, RN Day 3 Comment: 09/10 D/c needs pending medical course. Jr present. Dilaudid MATERIALS AND PROCESSES MANAGER. PT/OT. ID c/s. Therapy recs for IPR vs OP PT. Will follow to assist with d/c needs. Controls Technician: Evelyne Pena, RN Day 4 Comment: 09/11 Met with patient in the room who is planning to d/c to her [facility] in [place], [place]. Patient is agreeable to [facility]. CM spoke with Ursula who is agreeable for patient to come there at d/c. Referral sent to [facility].Await approval. 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 ABD drain. NPO. ID c/s. PT/OT. Controls Technician: Evelyne Pena RN - Home Health/IV Infusion/Wound Vac Home Health Referral Indicated: Yes Home Health List Provided: Yes Indication for Home Health: Wound Care, Other Patient's Response: Yes Home Health Agencies: [facility] Patient given the option to view [...] by Evelyne Pena RN> Co-Signed by: on [facility] Work Phone: 1(419) 921-476810-30-2023 Progress note Author Evelyne Pena [facility] September 22, 2023 4:22pm Note Date/Time September 12, 2023 1 0:33am [facility] Case Management Patient: GEOVANNY MEJÍA. : 1970 [place], [place] [address] Location: [phone] Unit #: [id number] Case Management Daily Note Evelyne Pena RN Service Date: 09/12/23 Case Mgmt Daily Note - Plan of Care Controls Technician Agrees with Attending and Consult Plan: Yes - Patient Preferences & Goals What is the patient's preference?: New SNF Recommended acute discharge goals: New SNF - COVID-19 Was Position Statement Letter Delivered?: Yes - Hospital Stay Days Day 1 Comment: 09/08 Met with patient in the room. Patient is from [place]. She is up here to visit her sister. Patient reporting she is normally independent. Doesnot have a PCP. Patient would like to use [facility] OP Pharm for meds. Planning to have her cousin pick her up at d/c. Contact is her cousin Ursula. Denies having LW/dPOA. Controls Technician: Evelyne Pena, RN Day 2 Comment: 09/09 Met with patient in the room. Patient asking to get up and move around. PT/OT to eval. S/p L ABD drain placement. Patient agreeable to [facility] for drain mgmt if needed. Reporting she will be going to [facility] at d/c to staywith her cousin Ursula. CM spoke with patients cousin Ursula via telephone who reports she is ok with [facility] coming to her home if patient would go there at d/c. Ursula reporting patient was homeless in [place] and recently move to [place] with faith Amaya. Controls Technician: Evelyne Pena, RN Day 3 Comment: 09/10 D/c needs pending medical course. Jr mullen. Dilaudid MATERIALS AND PROCESSES MANAGER. PT/OT. ID c/s. Therapy recs for IPR vs OP PT. Will follow to assist with d/c needs. Controls Technician: Evelyne Pena, RN Day 4 Comment: 09/11 Met with patient in the room who is planning to d/c to her [facility] in [place], [place]. Patient is agreeable to [facility]. CM spoke with Ursula who is agreeable for patient to come there at d/c. Referral sent to [facility].Await approval. 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 ABD drain. NPO. ID c/s. PT/OT. Controls Technician: Evelyne Pena, RN Day 5 Comment: 09/12 Met with patient in the room to discuss d/c plan. Patient unable to move b/l LE. No sensation to RLE. Does have sesation to LLE. PT/OT recommending SNF, patient agreeable. She would like to go somewhere near her cousin Ursula in [place], [place]. CM assisted [facility] [place] address. c/s for SNF placement and [facility] assist with [place]. Patient will need a precert. MATERIALS AND PROCESSES MANAGER continues. If patient would improve with mobility, she has been accepted to [facility]. LENY spoke with Ursula via telephone to update. Controls Technician: Evelyne Pena RN - Home Health/IV Infusion/Wound Vac Home Health Referral Indicated: Yes Home Health List Provided: Yes Indication for Home Health: Wound Care, Other Patient's Response: Yes Home Health Agencies: [facility] Patient given the option to view [...] Signed by: Evelyne Pena RN on 09/22/23 4704 <<Signature on File>> <Electronically signed by Evelyne Pena RN> Co-Signed by: on [facility] Work Phone: 1(387) 227-928610-27-2023 Progress note Author Jacqueline Edwards [facility] September 19, 2023 11:08am Note Date/Time September 19, 2023 1 1:08am [facility] Manager Ems Patient: GEOVANNY MEJÍA [address] : 1970 [place], [place] [address] Location: [phone] Unit #: [id number] Social Work Daily Note Jacqueline Edwards INSULATION CUPOLA CHARGER, ELECTROLYTIC DE SCALER Service Date: 09/19/23 SW Daily Note - * Psychosocial Assessment [...] rehab. pt is needing to transfer her [facility] medicaid dual plan. SW got a copy of pts card, pt was unable to move much and couldnt sit up, she needed assistance to get her insurance card out of her wallet. Nurse LENY Hickey called with pt on Friday to transfer the Medicare portion. The Medicaid portion needs cancelled and re-submitted for [place] Medicaid for pts county she will be living in. SW made contact with [employer] for assistance and to re-submit pts medicaid vilma. Pt would like a facility near her cousin ursula's house. There are looking at [facility] in [place], and [facility]. SW made contact with [facility] and they are not in network with [facility]. Tammy Starkey is in Network. SWfollow up with pts cousin via phone as she would like her to help with finding anursing home. Per Ursula there is another facility near her [facility]. SW made contact with [facility], they are in network with [facility], Per there admissions person Emmanuel they would be willing to bring pt in with a pending Medicaid number, per Emmanuel both Medicare and Medicaid would need transfered. Referral sent to [facility] for review. Marisol from [facility] to meet with pt. SW to also meet back to assist with canceling [place] if Marisol has not been able to assist pt. Market Development Analyst: Jacqueline Edwards, INSULATION CUPOLA CHARGER, ELECTROLYTIC DE SCALER Day 2 Note: 09/15/23 SW met back with pt, pt was asleep but easily aroused. MANOLO explained to pt that we needed to terminate her [place] Medicaid before submitting an application for [place] Medicaid and this needed to be initiated prior to her Dcing to a SNF. MANOLO called [facility] and had to leave a VM requesting that they call pt back to so that pt could terminate her [place] Medicaid there and give her new address and county. Market Development Analyst: Jacqueline Edwards, INSULATION CUPOLA CHARGER, ELECTROLYTIC DE SCALER Day 3 Note: 09/16/23 Pt transfer pending for another hospital. Referral was sent tot SNFS, [facility] was able to accept, [facility] was reviewing. Both pt and pt cousin Ursula aware of possible transfer out, but know SNF is still the back up plan, they can also follow back when pt Dcs from other setting and still requires a skilled stay. [employer] initiated a Medicaid application for pt. [place] Medicaid Application/pending number forward to [facility] if needed for transfer out. Pts cousin Ursula shared with that she heard that pt may havea history of substance abuse and this could be contributing to her current condition. MANOLO unsure of this and encouraged her to speak with physician about this when she is next here visiting with pt. Market Development Analyst: Jacqueline Edwards, INSULATION CUPOLA CHARGER, ELECTROLYTIC DE SCALER Day 4 Note: 09/19/23 Pt was transfered to [facility], residential referrals updated. SW signing off. Market Development Analyst: Jacqueline Edwards LSW, MSW - * Requested Intvs/Referrals * Software Sales Representative Referrals: SNF/LTAC Placement Market Development Analyst I Referrals: Financial Issues/Medicaid Applications - * HEALTHCARE DECISIONS * Living Will: Unknown Durable Power of Bottle Tester for Health Care: Unknown [facility] DNR Comfort Care: Unknown [facility] DNR Comfort Care Arrest: Unknown - Home Health/IV Infusion/Wound Vac Home Health Referral Indicated: Yes Home Health List Provided: Yes Indication for Home Health: Wound Care, Other Patient's Response: Yes Home Health Agencies: [facility] Patient given options to view quality scores of facility?: No Entered by: MARY Rodriguez MSW on 09/19/23 110 Report Signed by: LORNA Ovalle on 09/19/23 1108 <<Signature on File>> <Electronically signed by LORNA Hill> Report Signed by: on [facility] Work Phone: 1(130) 677-547110-26-2023 Progress note Author Alec Clemons [facility] September 18, 2023 8:44pm Note Date/Time September 18, 2023 3 :46pm [facility] Medical Records Patient: GEOVANNY MEJÍA. : 1970 [place], [place] [address] Location: [address] [place] [address] Unit #: [id number] Progress Note Neurosurgery Lucy Lara PA-C Service [...] Lymph % (Auto) 11.7 L 14.8 L [place] % (Auto) 6.7 7.4 Eos % (Auto) [...] File>> <Electronically signed by Alec Clemons MD> [facility] Work Phone: 1(121) 522-275710-26-2023 Progress note Author Alec Clemons [facility] September 18, 2023 8:44pm Note Date/Time September 18, 2023 3 :46pm [facility] Medical Records Patient: GEOVANNY MEJÍA. : 1970 [place], [place] [address] [address]: [facility] [phone] Unit #: [id number] Progress Note Neurosurgery Lucy Lara PA-C Service [...] Lymph % (Auto) 11.7 L 14.8 L [place] % (Auto) 6.7 7.4 Eos % (Auto) [...] Entered by: Lucy Lara PA-C on 09/18/23 4641 Report Signed by: Lucy Lara PA-C on 09/18/23 6098 <<Signature on File>> < 43 <<Signature on File>> <Electronically signed by Alec Clemons MD> [facility] Work Phone: 1(642) 834-434110-26-2023 Discharge summary Author Troy Garber [facility] September 18, 2023 7:44pm Note Date/Time September 18, 2023 7 :21pm [facility] Medical Records Patient: GEOVANNY MEJÍA. : 1970 [place], [place] [address] Location: [phone] Unit #: [id number] Discharge Summary Troy Garber MD Patient Information [...] [facility] upon converting her insurance to the [place] Medicaid. Currently she remains in-house awaiting a [...] home medications on file, initially transferred from [facility] for possible intra-abdominal abscess.? History and physical is limited due to no records available and patient was in pain at time of my clinical exam.? As per EMR I did see that she had a left retroperitoneal fluid collection with moderate inflammation measuring4.7 X2.6X 4.5 cm with possible abscess formation.? She was subsequently transferred to [facility] for general surgery consultation.? On arrival as [...] been declined, and subsequent call to the [facility] was also declined for transfer. However, patient's insurance had been switched from the [place] to the [place] Medicaid, [facility] was updated and patient was accepted onto their service. However patient remained here at [facility] until discharge and transfer to this evening [...] Infectious Disease] Routine Comment: Consulting Provider: Darrell (ID)Jaret Reason for consult: bacteremia/ Abd abscess Has [...] Lymph % (Auto) 11.7 L 14.8 L [place] % (Auto) 6.7 7.4 Eos % (Auto) [...] Discharge Plan Discharge Data Patient Disposition: *Discharge/Transfer SNF/[facility] Condition: Guarded Discharge Medication Reconciliation: No Action No Home Meds Time Spent On Discharge: Greater than 30 minutes General Instructions Activity: As tolerated Diet: Nothing by mouth Discharge Information Follow-up Appointments: None,Physician [Primary Care Provider] - Stand Alone Forms: Discharge Instructions cc: Troy Garber MD; None Dictated by: Tory Garber MD on 09/18/231918 Entered by: Troy Garber MD on 09/18/231918 Report Signed by: Troy Garber MD on 09/18/231943 <<Signature on File>> <Electronically signed by Troy Garber MD> Report Signed by: on [facility] Work Phone: 1(553) 120-470010-26-2023 Discharge summary Author Troy Garber [facility] September 18, 2023 7:44pm Note Date/Time September 18, 2023 7 :21pm [facility] Medical Records Patient: GEOVANNY MEJÍA. : 1970 [place], [place] [address] Location: [address] [place] [address] Unit #: [id number] Discharge Summary Troy Garber MD Patient Information [...] [facility] upon converting her insurance to the [place] Medicaid. Currently she remains in-house awaiting a [...] home medications on file, initially transferred from [facility] for possible intra-abdominal abscess.? History and physical is limited due to no records available and patient was in pain at time of my clinical exam.? As per EMR I did see that she had a left retroperitoneal fluid collection with moderate inflammation measuring4.7 X2.6X 4.5 cm with possible abscess formation.? She was subsequently transferred to [facility] for general surgery consultation.? On arrival as [...] been declined, and subsequent call to the [facility] was also declined for transfer. However, patient's insurance had been switched from the [place] to the [place] Medicaid, [facility] was updated and patient was accepted onto their service. However patient remained here at [facility] until discharge and transfer to this evening [...] Infectious Disease] Routine Comment: Consulting Provider: Darrell LUNSFORD)Jaret Reason for consult: bacteremia/ Abd abscess Has [...] Lymph % (Auto) 11.7 L 14.8 L [place] % (Auto) 6.7 7.4 Eos % (Auto) [...] Discharge Plan Discharge Data Patient Disposition: *Discharge/Transfer SNF/[facility] Condition: Guarded Discharge Medication Reconciliation: No Action [...] Troy Garber MD> Report Signed by: on [facility] Work Phone: 1([phone]) 443-542610-26-2023 [facility] Patient: GEOVANNY MEJÍA. : 1970 [place], [place] [address] Location: [phone] Unit #: [id number] Discharge Summary Troy Garber MD Patient Information [...] [facility] upon converting her insurance to the [place] Medicaid. Currently she remains in-house awaiting a [...] home medications on file, initially transferred from [facility] for possible intra-abdominal abscess.??? History and physical is limited due to no records available and patient was in pain at time of my clinical exam.??? As per EMR I did see that she had a left retroperitoneal fluid collection with moderate inflammation measuring 4.7 X2.6X 4.5 cm with possible abscess formation.??? She was subsequently transferred to [facility] for general surgery consultation.??? On arrival as per RN she was complaining of some back pain, she does have a history of sciatica and takes Neurontin 600 mg at home however h (more content not included)...[facility]10-26-2023 Progress note Author Karime Lowery [facility] September 18, 2023 5:54pm Note Date/Time September 18, 2023 5 :54pm [facility] Case Management Patient: GEOVANNY MEJÍA[address]. : 1970 [place], [place] [address] Location: [address] [place] [address] Unit #: [id number] Case Management General Note Karime Lowery RN Service Date: 09/18/23 Case Management General Note - Note Note: I was updated that patient had received a bed at [facility]. Bed 888. Accepting physician Dr. Huff. I was asked to arrange air transport. 1730: CM contacted [employer]. Updated of approx arrival 1753P. Primary nursing, attending updated. Security and AOS updated. Paperwork faxed and placed on chart. Primary nurse reports she had updated patient and family. - Letter Delivered Was Position Statement Letter Delivered?: Yes Entered by: Karime Lowery on 09/18/23 1747 Report Signed by: Karime Lowery RN on 09/18/23 175 <<Signature on File>> <Electronically signed by Karime Lowery RN> Co-Signed by: on [facility] Work Phone: 1(147) 314-428010-26-2023 Progress note Author Karime Loweyr [facility] September 18, 2023 5:54pm Note Date/Time September 18, 2023 5 :54pm [facility] Case Management Patient: GEOVANNY MEJÍA [address] : 1970 [place] [address] Location: [phone] Unit #: [id number] Case Management General Note Karime Lowery RN Service Date: 09/18/23 Case Management General Note - Note Note: I was updated that patient had received a bed at [facility]. Bed 888. Accepting physician Dr. Huff. I was asked to arrange air transport. 1730: CM contacted [employer]. Updated of approx arrival 1753P. Primary nursing, attending updated. Security and AOS updated. Paperwork faxed and placed on chart. Primary nurse reports she had updated patient and family. - Letter Delivered Was Position Statement Letter Delivered?: Yes Entered by: Karime Lowery on 09/18/23 1747 Report Signed by: Karime Lowery RN on 09/18/23 175 <<Signature on File>> <Electronically signed by Karime Lowery RN> Co-Signed by: on [facility] Work Phone: 1(295) 703-644810-26-2023 Progress note Author Valeriy Cantu [facility] September 18, 2023 3:25pm Note Date/Time September 18, 2023 3 :25pm [facility] Medical Records Patient: GEOVANNY MEJÍA[address]. : 1970 [place] [address] Location: [phone] Unit #: [id number] Status Note/Update Valeriy Cantu Jr DO Service [...] Cantu Jr, DO> Report Signed by: on [facility] Work Phone: 1(225) 403-869510-26-2023 Progress note Author Troy Garber [facility] September 18, 2023 3:25pm Note Date/Time September 18, 2023 3 :25pm [facility] Medical Records Patient: GEOVANNY MEJÍA [address] : 1970 [place] [address] Location: [address] [place] [address] Unit #: [id number] Status Note/Update Troy Garber MD Service Dt/Tm: [...] Troy Garber MD> Report Signed by: on [facility] Work Phone: 1(496) 774-237110-26-2023 Progress note Author Valeriy Cantu [facility] September 18, 2023 3:25pm Note Date/Time September 18, 2023 3 :25pm [facility] Medical Records Patient: GEOVANNY MEJÍA. : 1970 [place], [place] [address] Location: [phone] Unit #: [id number] Status Note/Update Valeriy Cantu Jr, DO Service [...] Cantu Jr, DO> Report Signed by: on [facility] Work Phone: 1(491) 302-502710-26-2023 Progress note Author Troy Garber [facility] September 18, 2023 3:25pm Note Date/Time September 18, 2023 3 :25pm [facility] Medical Records Patient: GEOVANNY MEJÍA. : 1970 [place], [place] [address] Location: [phone] Unit #: [id number] Status Note/Update Troy Garber MD Service Dt/Tm: [...] Signed by: Troy Garber MD on 09/18/23 152 <<Signature on File>> <Electronically signed by Troy Garber MD> Report Signed by: on [facility] Work Phone: 1(771) 262-728310-26-2023 Progress note Author Alec Clemons [facility] September 18, 2023 3:23pm Note Date/Time September 18, 2023 3 :12pm [facility] Medical Records Patient: GEOVANNY MEJÍA [address] : 1970 [place], [place] [address] Location: [address] [place] [address] Unit #: [id number] Status Note/Update Alec Clemons MD Service Dt/Tm: 09/18/231509 Note: GEOVANNY MEJÍA is a 53 yr [...] Alec Clemons MD> Report Signed by: on [facility] Work Phone: [phone]) [phone] Progress note Author Alec Clemons [facility] September 18, 2023 3:23pm Note Date/Time September 18, 2023 3 :12pm [facility] Medical Records Patient: GEOVANNY MEJÍA. : 1970 [place] [address] Location: [facility] [phone] Unit #: [id number] Status Note/Update Alec Clemons MD Service Dt/Tm: 09/18/231509 Note: GEOVANNY MEJÍA is a 53 yr [...] Alec Clemons MD> Report Signed by: on [facility] Work Phone: 1([phone]) 262-577710-26-2023 Progress note Author Kait Still [facility] September 18, 2023 3:19pm Note Date/Time September 18, 2023 1 1:42am [facility] Case Management Patient: GEOVANNY MEJÍA. : 1970 [place] [address] Location: [phone] Unit #: [id number] Case Management Daily Note Kait Still Service Date: 09/18/23 Case Mgmt Daily Note - Plan of Care Controls Technician Agrees with Attending and Consult Plan: Yes [...] patient in the room. Patient is from [place]. She is up here to visit her sister. Patient reporting she is normally independent. Doesnot have a PCP. Patient would like to use [facility] OP Pharm for meds. Planning to have her cousin pick her up at d/c. Contact is her cousin Ursula. Denies having LW/dPOA. Controls Technician: Evelyne Pena, RN Day 2 Comment: 09/09 Met with patient in the room. Patient asking to get up and move around. PT/OT to [facility]. S/p L ABD drain placement. Patient agreeable to [facility] for drain mgmt if needed. Reporting she will be going to [facility] at d/c to staywith her cousin Ursula. CM spoke with patients cousin Ursula via telephone who reports she is ok with [facility] coming to her home if patient would go there at d/c. Ursula reporting patient was homeless in [place] and recently move to [place] with faith [employer]. Controls Technician: Evelyne Pena, RN Day 3 Comment: 09/10 D/c needs pending medical course. Jr present. Dilaudid MATERIALS AND PROCESSES MANAGER. PT/OT. ID c/s. Therapy recs for IPR vs OP PT. Will follow to assist with d/c needs. Controls Technician: Evelyne Pena, RN Day 4 Comment: 09/11 Met with patient in the room who is planning to d/c to her [facility] in [place], [place]. Patient is agreeable to [facility]. LENY spoke with Ursula who is agreeable for patient to come there at d/c. Referral sent to [facility].Await approval. 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 ABD drain. NPO. ID c/s. PT/OT. Controls Technician: Evelyne Pena, RN Day 5 Comment: 09/12 Met with patient in the room to discuss d/c plan. Patient unable to move b/l LE. No sensation to RLE. Does have sesation to LLE. PT/OT recommending SNF, patient agreeable. She would like to go somewhere near her cousin Ursula in [place], [place]. CM assisted [place] [place]. SW c/s for SNF placement and GWEN assist with [place]. Patient will need a precert. MATERIALS AND PROCESSES MANAGER continues. If patient would improve with mobility, she has been accepted to [facility]. CM spoke with Ursula via telephone to update. Controls Technician: Evelyne Pena, RN Day 6 Comment: 09/15- POD 2. CM spoke with patient at bedside. VSS. WBC 19.9. PT/OT rec SNF. Pt verbalized agreeable for SNF and would like [facility]. MANOLO c/s & reported that [facility] is not in network with pt insurance. spoke w/ pt & Lamin is now reviewing patient. Pt is awaiting the start of [place] GWEN application with [employer] as current dual insurance is out of state. Pt willalso require a precert when medically ready. CM following. Controls Technician: Dina Abebe Day 8 Comment: 09/15- POD 2. CM spoke with patient at bedside. VSS. WBC 19.9. PT/OT rec SNF. Pt verbalized agreeable for SNF and would like [facility]. MANOLO c/s. Pt will require precert when [...] Attending noted plans to attempt transfer to [facility] & if denied, to attempt transfer to [facility], per pt preferance. Transfer packet completed. CM following. @12:21- Nurse reported to CM that Dr Holt hasdeclined to take pt, per [facility], & that a message was relayed to the attending. @14:30- [employer] has assisted pt with completion of [place] GWEN vilma. CM faxing documentation to [facility] & calling now to verify if they are able to accept pt with that. If unable, CM to fax & verify w/ [facility]. If neither hospital is able to accept, attending plans to reach out to [facility]. @15:00- CM spoke with Shelby at [facility]. [...] out of network insurance. CMupdated the attending. Controls Technician: Dina Abebe Comment: 09/17- CM received perfect serve notification from pt's nurse after CM left for the day yesterday at 16:[address] Clemons, the pt has been accepted to [facility] and that the transfer center will be contacting [facility] when a bed is available. CM spoke w/ pt at bedside this AM & provided updates. Pt requestedCM to contact her cousin, Ursula Echevarria ([phone]), with any updates. CM called Ursula this AM; no answer & no vm set up.t. @:27- Ursula called CM back & updates were provided. Controls Technician: Dina Abebe Comment: 09/18 - Spoke with pt at bedside. Pt being transferred to [facility]. Spoke with AIRAM Crabtree from [facility] Transfer center at 0830 and 1330 today, and she states that there is no bed assigned on this pt at this time. RN and Provider updated. Controls Technician: Kait Still - Home Health/IV Infusion/Wound Vac Home Health Referral Indicated: Yes Home Health List Provided: Yes Indication for Home Health: Wound Care, Other Patient's Response: Yes Home Health Agencies: [facility] Patient given the option to view quality scores of facility?: Yes - Half-Way Facility SNF List Provided: Yes Half-Way Facilities: [facility] Social Work Consult initiated for SNF: Yes [...] signed by Kait Still> Co-Signed by: on [facility] Work Phone: 1([phone]) 495-497610-26-2023 Progress note Author Kait Still [facility] September 18, 2023 3:19pm Note Date/Time September 18, 2023 1 1:42am [facility] Case Management Patient: GEOVANNY MEJÍA. : 1970 [place], [place] [address] Location: [phone] Unit #: [id number] Case Management Daily Note Kait Still Service Date: 09/18/23 Case Mgmt Daily Note - Plan of Care Controls Technician Agrees with Attending and Consult Plan: Yes [...] patient in the room. Patient is from [place]. She is up here to visit her sister. Patient reporting she is normally independent. Doesnot have a PCP. Patient would like to use [facility] OP Pharm for meds. Planning to have her cousin pick her up at d/c. Contact is her cousin Ursula. Denies having LW/dPOA. Controls Technician: Evelyne Pena RN Day 2 Comment: 10/17 Met with patient in the room. Patient asking to get up and move around. PT/OT to eval. S/p L ABD drain placement. Patient agreeable to [facility] for drain mgmt if needed. Reporting she will be going to [facility] at d/c to staywith her cousin Ursula. CM spoke with patients cousin Ursula via telephone who reports she is ok with [facility] coming to her home if patient would go there at d/c. Ursula reporting patient was homeless in [place] and recently move to [place] with faith [employer]. Controls Technician: Evelyne Pena, RN Day 3 Comment: 09/10 D/c needs pending medical course. Jr present. Dilaudid MATERIALS AND PROCESSES MANAGER. PT/OT. ID c/s. Therapy recs for IPR vs OP PT. Will follow to assist with d/c needs. Controls Technician: Evelyne Pena, RN Day 4 Comment: 09/11 Met with patient in the room who is planning to d/c to her [facility] in [place], [place]. Patient is agreeable to [facility]. CM spoke with Ursula who is agreeable for patient to come there at d/c. Referral sent to [facility].Await approval. 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 ABD drain. NPO. ID c/s. PT/OT. Controls Technician: Evelyne Pena, RN Day 5 Comment: 09/12 Met with patient in the room to discuss d/c plan. Patient unable to move b/l LE. No sensation to RLE. Does have sesation to LLE. PT/OT recommending SNF, patient agreeable. She would like to go somewhere near her cousin Ursula in [place], [place]. CM assisted patient with [place] [place]. SW c/s for SNF placement and GWEN assist with [place]. Patient will need a precert. MATERIALS AND PROCESSES MANAGER continues. If patient would improve with mobility, she has been accepted to [facility]. CM spoke with Ursula via telephone to update. Controls Technician: Evelyne Pena, RN Day 6 Comment: 09/15- POD 2. CM spoke with patient at bedside. VSS. WBC 19.9. PT/OT rec SNF. Pt verbalized agreeable for SNF and would like [facility]. SW c/s & reported that [facility] is not in network with pt insurance. MANOLO spoke w/ pt & Lamin is now reviewing patient. Pt is awaiting the start of [place] GWEN application with [employer] as current dual insurance is out of state. Pt willalso require a precert when medically ready. CM following. Controls Technician: Dina Abebe Day 8 Comment: 09/15- POD 2. CM spoke with patient at bedside. VSS. WBC 19.9. PT/OT rec SNF. Pt verbalized agreeable for SNF and would like [facility]. SW c/s. Pt will require precert when [...] Attending noted plans to attempt transfer to [facility] & if denied, to attempt transfer to [facility], per pt preferance. Transfer packet completed. CM following. @12:21- Nurse reported to CM that Dr Holt hasdeclined to take pt, per [facility], & that a message was relayed to the attending. @14:30- [employer] [facility] has assisted pt with completion of [place] vilma. CM faxing documentation to [facility] & calling now to verify if they are able to accept pt with that. If unable, CM to fax & verify w/ [facility]. If neither hospital is able to accept, attending plans to reach out to [facility]. @15:00- CM spoke with Shelby at [facility]. [...] out of network insurance. CMupdated the attending. Controls Technician: Dina Abebe Day Comment: 09/17- CM received perfect serve notification from pt's nurse after CM left for the day yesterday at 16:[address] Clemons, the pt has been accepted to [facility] and that the transfer center will be contacting [facility] when a bed is available. CM spoke w/ pt at bedside this AM & provided updates. Pt requestedCM to contact her cousin, Ursula Echevarria ([phone]), with any updates. CM called Ursula this AM; no answer & no vm set up.t. @:- Ursula called CM back & updates were provided. Controls Technician: Dina Abebe 11 Comment: 09/18 - Spoke with pt at bedside. Pt being transferred to [facility]. Spoke with AIRAM Crabtree from [facility] Transfer center at 0830 and 1330 today, and she states that there is no bed assigned on this pt at this time. RN and Provider updated. Controls Technician: Kait Still - Home Health/IV Infusion/Wound Vac Home Health Referral Indicated: Yes Home Health List Provided: Yes Indication for Home Health: Wound Care, Other Patient's Response: Yes Home Health Agencies: [facility] Patient given the option to view quality scores of facility?: Yes - Half-Way Facility SNF List Provided: Yes Half-Way Facilities: [facility] Social Work Consult initiated for SNF: Yes [...] signed by Kait Still> Co-Signed by: on [facility] Work Phone: [phone]) 327-381610-26-2023 Progress note Author Troy Garber [facility] September 18, 2023 2:24pm Note Date/Time September 18, 2023 8 :57am [facility] Medical Records Patient: GEOVANNY MEJÍA [address] : 1970 [place], [place] [address] Location: [facility] [phone] Unit #: [id number] Progress Note - Hospitalist Troy Garber MD [...] [facility] upon converting her insurance to the [place] [employer]. Currently she remains in-house awaiting a [...] had been offered other options including the [facility] and the [facility]. [facility] had declined to accept the patient [...] the EMR. 09/17/23 12:16 CT Abd/Pelvis W/Contrast 03181 Stat 09/17/23 15:55 CT Peritoneal Abscess Stat [...] Troy Garber MD> Report Signed by: on [facility] Work Phone: 1([phone]) 772-454710-26-2023 Progress note Author Troy Garber [facility] September 18, 2023 2:24pm Note Date/Time September 18, 2023 8 :57am [facility] Medical Records Patient: GEOVANNY MEJÍA. : 1970 [place], [place] [address] Location: [phone] Unit #: [id number] Progress Note - Hospitalist Troy Garber MD [...] [facility] upon converting her insurance to the [place] [employer]. Currently she remains in-house awaiting a [...] had been offered other options including the [facility] and the [facility]. [facility] had declined to accept the patient [...] the EMR. 09/17/23 12:16 CT Abd/Pelvis W/Contrast 98782 Stat 09/17/23 15:55 CT Peritoneal Abscess Stat [...] Troy Garber MD> Report Signed by: on [facility] Work Phone: 1([phone]) 886-830610-25-2023 Progress note Author Alec Clemons [facility] September 17, 2023 7:14pm Note Date/Time September 16, 2023 1 :34pm [facility] Medical Records Patient: GEOVANNY MEJÍA. : 1970 [place], [place] [address] Location: [phone] Unit #: [id number] Progress Note Neurosurgery Jasbir Ann PA-C Service [...] I spoke with the Ortho spine surgeon visual presentation manager and the transfer center at [facility]. I explained that the patient still [...] 85.9 H Lymph % (Auto) 8.8 L [place] % (Auto) 4.0 Eos % (Auto) 0.3 Baso % (Auto) 1.0 Nucleat RBC Rel Count 0.0 Absolute Neuts (auto) 86765 H Absolute Lymphs (auto) 1700 Absolute Monos [...] PA-C on 09/16/231334 <<Signature on File>> < 13 <<Signature on File>> <Electronically signed by Alec Clemons MD> [facility] Work Phone: 1(391) 675-783910-25-2023 Progress note Author Alec Clemons [facility] September 17, 2023 7:14pm Note Date/Time September 16, 2023 1 :34pm [facility] Medical Records Patient: GEOVANNY MEJÍA. : 1970 [place], [place] [address] Location: [phone] Unit #: [id number] Progress Note Neurosurgery Jasbir Ann PA-C Service Dt/Tm: 09/16/231332 <Jasbir Ann PA-C - Last Filed: 09/16/23 [...] I spoke with the Ortho spine surgeon visual presentation manager and the transfer center at [facility]. I explained that the patient still [...] 85.9 H Lymph % (Auto) 8.8 L [place] % (Auto) 4.0 Eos % (Auto) 0.3 Baso % (Auto) 1.0 Nucleat RBC Rel Count 0.0 Absolute Neuts (auto) 66967 H Absolute Lymphs (auto) 1700 Absolute Monos [...] on 09/16/23 1335 <<Signature on File>> < 191 <<Signature on File>> <Electronically signed by Alec Clemons MD> [facility] Work Phone: 1(697) 860-187110-25-2023 Progress note Author Troy Garber [facility] September 17, 2023 5:33pm Note Date/Time September 17, 2023 5 :14pm [facility] Medical Records Patient: GEOVANNY MEJÍ[address]. : 1970 [place], [place] [address] Location: [phone] Unit #: [id number] Progress Note - Hospitalist Troy Garber MD Service Dt/Tm: 09/17/23 7944 Assessment/Plan Assessment/Plan (1) Intra-abdominal abscess: Status: Acute [...] [facility] upon converting her insurance to the [place] [employer]. Currently she remains in-house awaiting a [...] the EMR. 09/17/23 12:16 CT Abd/Pelvis W/Contrast 38917 Stat Microbiology: Microbiology 09/13/23 05:00 Back Gram [...] Troy Garber MD> Report Signed by: on [facility] Work Phone: [phone]) 830-752510-25-2023 Progress note Author Troy Garber [facility] September 17, 2023 5:33pm Note Date/Time September 17, 2023 5 :14pm [facility] Medical Records Patient: GEVOANNY MEJÍA. : 1970 [place], [place] [address] Location: [phone] Unit #: [id number] Progress Note - Hospitalist Troy Garber MD [...] [facility] upon converting her insurance to the [place] [employer]. Currently she remains in-house awaiting a [...] the EMR. 09/17/23 12:16 CT Abd/Pelvis W/Contrast 51483 Stat Microbiology: Microbiology 09/13/23 05:00 Back Gram Stain - Final 09/13/23 05:00 Back Wound Culture - Preliminary Staphylococcus aureus 09/13/23 16:06 Blood,Venous Blood Culture - Preliminary No growth after 4 days, cultures held 5 days. 09/13/23 15:55 Blood,Venous Blood Culture - Preliminary No growth after 4 days, cultures held 5 days. Medications and Comanagement: Medications reviewed separately. Entered by: Troy Garber MD on 09/17/234 Report Signed by: Troy Garber MD on 09/17/23 173 <<Signature on File>> <Electronically signed by Troy Garber MD> Report Signed by: on [facility] Work Phone: 1(698) 469-805510-25-2023 Progress note Author Freddy Guevara [facility] September 17, 2023 4:51pm Note Date/Time September 17, 2023 4 :51pm [facility] Medical Records Patient: GEOVANNY MEJÍA. : 1970 [place], [place] [address] Location: [address] [place] [address] Unit #: [id number] Interventional Radiology Note Freddy Guevara MD Service Dt/Tm: 10/25/23 1649 Interventional Radiology Note IR Note: New left [...] Freddy Guevara MD> Report Signed by: on [facility] Work Phone: [phone]) [phone] Progress note Author Freddy Guevara [facility] September 17, 2023 4:51pm Note Date/Time September 17, 2023 4 :51pm [facility] Medical Records Patient: GEOVANNY MEJÍA. : 1970 [place] [address] Location: [phone] Unit #: [id number] Interventional Radiology Note Freddy Guevara MD Service [...] Freddy Guevara MD> Report Signed by: on [facility] Work Phone: 1([phone]) 796-552210-25-2023 [facility] Medical Records Patient: GEOVANNY MEJÍA. : 1970 [place] [address] Location: [phone] Unit #: [id number] IR Pre Procedure Note Freddy Guevara MD [...] 09/08/23 @ 14:51 by Bryant Epperson APRN, BAG [employer]ER) Denies family history of No pertinent family [...] on 09/17/231647 < > Report Signed by: [facility]-25-2023 Progress note Author Dina Mis [facility] September 17, 2023 4:07pm Note Date/Time September 17, 2023 8 :14am [facility] Case Management Patient: GEOVANNY MEJÍA. : 1970 [place], [place] [address] Location: [phone] Unit #: [id number] Case Management Daily Note Dina Kaur Mis Service Date: 09/17/23 Case Mgmt Daily Note - Plan of Care Controls Technician Agrees with Attending and Consult Plan: Yes - COVID-19 Was Position Statement Letter Delivered?: Yes - Care Coordination Communication Care Coordination Communication: Spoke with patient's family via phone - Hospital Stay Days Day 1 Comment: 09/08 Met with patient in the room. Patient is from [place]. She is up here to visit her sister. Patient reporting she is normally independent. Doesnot have a PCP. Patient would like to use [facility] OP Pharm for meds. Planning to have her cousin pick her up at d/c. Contact is her cousin Ursula. Denies having LW/dPOA. Controls Technician: Evelnye Pena, RN Day 2 Comment: 09/09 Met with patient in the room. Patient asking to get up and move around. PT/OT to [facility]. S/p L ABD drain placement. Patient agreeable to [facility] for drain mgmt if needed. Reporting she will be going to [facility] at d/c to staywith her cousin Ursula. spoke with patients cousin Ursula via telephone who reports she is ok with [facility] coming to her home if patient would go there at d/c. Ursula reporting patient was homeless in [place] and recently move to [place] with faith [employer]. Controls Technician: Evelyne Pena, RN Day 3 Comment: 09/10 D/c needs pending medical course. Jr mullen. Dilaudid MATERIALS AND PROCESSES MANAGER. PT/OT. ID c/s. Therapy recs for IPR vs OP PT. Will follow to assist with d/c needs. Controls Technician: Evelyne Pena, RN Day 4 Comment: 09/11 Met with patient in the room who is planning to d/c to her [facility] in [place], [place]. Patient is agreeable to [facility]. CM spoke with Ursula who is agreeable for patient to come there at d/c. Referral sent to [facility].Await approval. 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 ABD drain. NPO. ID c/s. PT/OT. Controls Technician: Evelyne Pena, RN Day 5 Comment: 09/12 Met with patient in the room to discuss d/c plan. Patient unable to move b/l LE. No sensation to RLE. Does have sesation to LLE. PT/OT recommending SNF, patient agreeable. She would like to go somewhere near her cousin Ursula in [place], [place]. CM assisted patient with [place] [facility] [place] address. SW c/s for SNF placement and GWEN assist with [place]. Patient will need a precert. MATERIALS AND PROCESSES MANAGER continues. If patient would improve with mobility, she has been accepted to [facility]. CM spoke with Ursula via telephone to update. Controls Technician: Evelyne Pena, RN Day 6 Comment: 09/15- POD 2. CM spoke with patient at bedside. VSS. WBC 19.9. PT/OT rec SNF. Pt verbalized agreeable for SNF and would like [facility]. SW c/s & reported that [facility] is not in network with pt insurance. spoke w/ pt & Lamin is now reviewing patient. Pt is awaiting the start of [place] GWEN application with [employer] as current dual insurance is out of state. Pt willalso require a precert when medically ready. CM following. Controls Technician: Dina Abebe Day 8 Comment: 09/15- POD 2. CM spoke with patient at bedside. VSS. WBC 19.9. PT/OT rec SNF. Pt verbalized agreeable for SNF and would like [facility]. SW c/s. Pt will require precert when [...] Attending noted plans to attempt transfer to [facility] &if denied, to attempt transfer to [facility], per pt preferance. Transfer packet completed. CM following. @12:21- Nurse reported to CM that Dr Holt has declined to take pt, per [facility], & that a message was relayed to the attending. @14:30- [employer] [facility] has assisted pt with completion of [place] GWEN vilma. CM faxing documentation to [facility] & calling now to verify if they are able to accept pt with that. If unable, CM to fax & verify w/ [facility]. If neither hospital is able to accept, attending plans to reach out to [facility]. @15:00- CM spoke with Shelby at [facility]. [...] out of network insurance. CMupdated the attending. Controls Technician: Dina Abebe Day 10 Comment: 09/17- CM received perfect serve notification from pt's nurse after CM left for the day yesterday at 16:[address] Clemons, the pt has been accepted to [facility] and that the transfer center will be contacting [facility] when a bed is available. CM spoke w/ pt at bedside this AM & provided updates. Pt requestedCM to contact her cousin, Ursula Echevarria ([phone]), with any updates. CM called Ursula this AM; no answer & no vm set up.t. @10:27- Ursula called CM back & updates were provided. Controls Technician: Dina Abebe - Home Health/IV Infusion/Wound Vac Home Health Referral Indicated: Yes Home Health List Provided: Yes Indication for Home Health: Wound Care, Other Patient's Response: Yes Home Health Agencies: [facility] Patient given the option to view quality scores of facility?: Yes - Half-Way Facility SNF List Provided: Yes Half-Way Facilities: [facility] Social Work Consult initiated for SNF: Yes [...] signed by Dina Abebe> Co-Signed by: on [facility] Work Phone: [phone] 117-926510-25-2023 Progress note Author Dina Abebe [facility] September 17, 2023 4:07pm Note Date/Time September 17, 2023 8 :14am [facility] Case Management Patient: GEOVANNY MEJÍA. : 1970 [place] [address] Location: [phone] Unit #: [id number] Case Management Daily Note Dina Abebe Service Date: 09/17/23 Case Mgmt Daily Note - Plan of Care Controls Technician Agrees with Attending and Consult Plan: Yes - COVID-19 Was Position Statement Letter Delivered?: Yes - Care Coordination Communication Care Coordination Communication: Spoke with patient's family via phone - Hospital Stay Days Day 1 Comment: 09/08 Met with patient in the room. Patient is from [place]. She is up here to visit her sister. Patient reporting she is normally independent. Doesnot have a PCP. Patient would like to use [facility] OP Pharm for meds. Planning to have her cousin pick her up at d/c. Contact is her cousin Ursula. Denies having LW/dPOA. Controls Technician: Evelyne Pena, RN Day 2 Comment: 09/09 Met with patient in the room. Patient asking to get up and move around. PT/OT to eval. S/p L ABD drain placement. Patient agreeable to [facility] for drain mgmt if needed. Reporting she will be going to [facility] at d/c to staywith her cousin Ursula. CM spoke with patients cousin Ursula via telephone who reports she is ok with [facility] coming to her home if patient would go there at d/c. Ursula reporting patient was homeless in [place] and recently move to [place] with faith Amaya. Controls Technician: Evelyne Pena, RN Day 3 Comment: 09/10 D/c needs pending medical course. Jr present. Dilaudid MATERIALS AND PROCESSES MANAGER. PT/OT. ID c/s. Therapy recs for IPR vs OP PT. Will follow to assist with d/c needs. Controls Technician: Evelyne Pena, RN Day 4 Comment: 09/11 Met with patient in the room who is planning to d/c to her [facility] in [place], [place]. Patient is agreeable to [facility]. CM spoke with Ursula who is agreeable for patient to come there at d/c. Referral sent to [facility].Await approval. 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 ABD drain. NPO. ID c/s. PT/OT. Controls Technician: Evelyne Pena, RN Day 5 Comment: 09/12 Met with patient in the room to discuss d/c plan. Patient unable to move b/l LE. No sensation to RLE. Does have sesation to LLE. PT/OT recommending SNF, patient agreeable. She would like to go somewhere near her cousin Ursula in [place]. CM assisted patient [place] [place]. c/s for SNF placement and [facility] assist with [place]. Patient will need a precert. MATERIALS AND PROCESSES MANAGER continues. If patient would improve with mobility, she has been accepted to [facility]. CM spoke with Ursula via telephone to update. Controls Technician: Evelyne Pena, RN Day 6 Comment: 09/15- POD 2. CM spoke with patient at bedside. VSS. WBC 19.9. PT/OT rec SNF. Pt verbalized agreeable for SNF and would like [facility]. MANOLO c/s & reported that [facility] is not in network with pt insurance. MANOLO spoke w/ pt & Lamin is now reviewing patient. Pt is awaiting the start of [place] GWEN application with [facility] as current dual insurance is out of state. Pt willalso require a precert when medically ready. CM following. Controls Technician: Dina Abebe* Day 8 Comment: 09/15- POD 2. CM spoke with patient at bedside. VSS. WBC 19.9. PT/OT rec SNF. Pt verbalized agreeable for SNF and would like [facility]. c/s. Pt will require precert when medically [...] Attending noted plans to attempt transfer to [facility] &if denied, to attempt transfer to [facility], per pt preferance. Transfer packet completed. CM following. @12:21- Nurse reported to CM that Dr Holt has declined to take pt, per [facility], & that a message was relayed to the attending. @14:30- [facility] has assisted pt with completion of [place] GWEN vilma. CM faxing documentation to [facility] & calling now to verify if they are able to accept pt with that. If unable, CM to fax & verify w/ [facility]. If neither hospital is able to accept, attending plans to reach out to [facility]. @15:00- CM spoke with Shelby at [facility]. [...] out of network insurance. CMupdated the attending. Controls Technician: Dina Abebe R Day Comment: 09/17- CM received perfect serve notification from pt's nurse after CM left for the day yesterday at 16:[address] Clemons, the pt has been accepted to [facility] and that the transfer center will be contacting [facility] when a bed is available. CM spoke w/ pt at bedside this AM & provided updates. Pt requestedCM to contact her cousin, Ursula Echevarria ([phone]), with any updates. CM called Ursula this AM; no answer & no vm set up.t. @10:27- Ursula called CM back & updates were provided. Controls Technician: Dina Abebe - Home Health/IV Infusion/Wound Vac Home Health Referral Indicated: Yes Home Health List Provided: Yes Indication for Home Health: Wound Care, Other Patient's Response: Yes Home Health Agencies: [facility] Patient given the option to view quality scores of facility?: Yes - Half-Way Facility SNF List Provided: Yes Half-Way Facilities: [facility] Social Work Consult initiated for SNF: Yes [...] 1607 <<Signature on File>> <Electronically signed by iDna Abebe> Co-Signed by: on [facility] Work Phone: [phone]) 579-286210-25-2023 [facility]23 Progress note Author Troy Garber [facility] September 17, 2023 1:37pm Note Date/Time September 17, 2023 8 :55am [facility] Medical Records Patient: GEOVANNY MEJÍA1 Yumiko Rivera. : 1970 [place], [place] [address] [address]: [facility] [phone] Unit #: [id number] Progress Note - Hospitalist Troy Garber MD [...] with the direction to call first the [facility] for the transfer, and if that [...] Diet Texture: Regular Fluid Restrictions?: No Consult Etl Bi Developer for Oral Supplements/Nourishments?: No Oral Supplement 1: [...] Signed by: Troy Garber MD on 09/17/23 1334 <<Signature on File>> <Electronically signed by Troy Garber MD> Report Signed by: on [facility] Work Phone: 1(307) 650-975010-25-2023 Progress note Author Troy Garber [facility] September 17, 2023 1:37pm Note Date/Time September 17, 2023 8 :55am [facility] Medical Records Patient: GEOVANNY MEJÍA1 Yumiko Rivear. : 1970 [place], [place] [address] Location: [address] [place] [address] Unit #: [id number] Progress Note - Hospitalist Troy Garber MD [...] with the direction to call first the [facility] for the transfer, and if that [...] Diet Texture: Regular Fluid Restrictions?: No Consult Etl Bi Developer for Oral Supplements/Nourishments?: No Oral Supplement 1: [...] Entered by: Troy Garber MD on 09/17/23 0855 Report Signed by: Troy Garber MD on 09/17/23 1337 <<Signature on File>> <Electronically signed by Troy Garber MD> Report Signed by: on [facility] Work Phone: 1([phone]) 482-296910-24-2023 Progress note Author Troy Garber [facility] September 16, 2023 4:53pm Note Date/Time September 16, 2023 4 :53pm [facility] Medical Records Patient: GEOVANNY MEJÍA [address] Y[address]. : 1970 [place], [place] [address] Location: [phone] Unit #: [id number] Status Note/Update Troy Garber MD Service Dt/Tm: 09/16/231650 Note: GEOVANNY MEJÍA is a 53 yr old F who was admitted on 09/08/23 for INTRA ABDOMINAL ABCESS. Patient's [place] Medicaid has been approved and her insurance [...] Troy Garber MD> Report Signed by: on [facility] Work Phone: [phone]) 246-832110-24-2023 Progress note Author Troy Garber [facility] September 16, 2023 4:53pm Note Date/Time September 16, 2023 4 :53pm [facility] Medical Records Patient: GEOVANNY MEJÍA [address]. : 1970 [place], [place] [address] Location: [phone] Unit #: [id number] Status Note/Update Troy Garber MD Service Dt/Tm: 09/16/231650 Note: GEOVANNY MEJÍA is a 53 yr old F who was admitted on 09/08/23 for INTRA ABDOMINAL ABCESS. Patient's [place] Medicaid has been approved and her insurance [...] Troy Garber MD> Report Signed by: on [facility] Work Phone: [phone]) 734-980210-24-2023 Progress note Author Dina Abebe [facility] September 16, 2023 4:16pm Note Date/Time September 16, 2023 8 :26am [facility] Case Management Patient: GEOVANNY MEJÍA [address]. : 1970 [place], [place] [address] Location: [phone] Unit #: [id number] Case Management Daily Note Dina Abebe Service Date: 09/16/23 Case Mgmt Daily Note - Plan of Care Controls Technician Agrees with Attending and Consult Plan: Yes - COVID-19 Was Position Statement Letter Delivered?: Yes - Care Coordination Communication Care Coordination Communication: Spoke with patient's family via phone - Hospital Stay Days Day 1 Comment: 09/08 Met with patient in the room. Patient is from [place]. She is up here to visit her sister. Patient reporting she is normally independent. Doesnot have a PCP. Patient would like to use [facility] OP Pharm for meds. Planning to have her cousin pick her up at d/c. Contact is her cousin Ursula. Denies having LW/dPOA. Controls Technician: Evelyne Pena, RN Day 2 Comment: 09/09 Met with patient in the room. Patient asking to get up and move around. PT/OT to eval. S/p L ABD drain placement. Patient agreeable to [facility] for drain mgmt if needed. Reporting she will be going to [facility] at d/c to staywith her cousin Ursula. CM spoke with patients cousin Ursula via telephone who reports she is ok with [facility] coming to her home if patient would go there at d/c. Ursula reporting patient was homeless in [place] and recently move to [place] with faith Amaya. Controls Technician: Evelyne Pena, RN Day 3 Comment: 09/10 D/c needs pending medical course. Jr present. Dilaudid MATERIALS AND PROCESSES MANAGER. PT/OT. ID c/s. Therapy recs for IPR vs OP PT. Will follow to assist with d/c needs. Controls Technician: Evelyne Pena, RN Day 4 Comment: 09/11 Met with patient in the room who is planning to d/c to her [facility] in [place], [place]. Patient is agreeable to [facility]. CM spoke with Ursula who is agreeable for patient to come there at d/c. Referral sent to [facility].Await approval. 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 ABD drain. NPO. ID c/s. PT/OT. Controls Technician: Evelyne Pena, RN Day 5 Comment: 09/12 Met with patient in the room to discuss d/c plan. Patient unable to move b/l LE. No sensation to RLE. Does have sesation to LLE. PT/OT recommending SNF, patient agreeable. She would like to go somewhere near her cousin Ursula in [place]. CM assisted patient with [place] [place]. SW c/s for SNF placement and [facility] assist with [place]. Patient will need a precert. MATERIALS AND PROCESSES MANAGER continues. If patient would improve with mobility, she has been accepted to [facility]. CM spoke with Ursula via telephone to update. Controls Technician: Evelyne Pena, RN Day 6 Comment: 09/15- POD 2. CM spoke with patient at bedside. VSS. WBC 19.9. PT/OT rec SNF. Pt verbalized agreeable for SNF and would like [facility]. MANOLO c/s & reported that [facility] is not in network with pt insurance. MANOLO spoke w/ pt & Lamin is now reviewing patient. Pt is awaiting the start of [place] GWEN application with [facility] as current dual insurance is out of state. Pt willalso require a precert when medically ready. CM following. Controls Technician: Dina Abebe Day 8 Comment: 09/15- POD 2. CM spoke with patient at bedside. VSS. WBC 19.9. PT/OT rec SNF. Pt verbalized agreeable for SNF and would like [facility]. SW c/s. Pt will require precert when [...] Attending noted plans to attempt transfer to [facility] &if denied, to attempt transfer to [facility], per pt preferance. Transfer packet completed. CM following. @12:21- Nurse reported to CM that Dr Holt has declined to take pt, per [facility], & that a message was relayed to the attending. @14:30- [facility] has assisted pt with completion of [place] vilma. CM faxing documentation to [facility] & calling now to verify if they are able to accept pt with that. If unable, CM to fax & verify w/ [facility]. If neither hospital is able to accept, attending plans to reach out to [facility]. @15:00- CM spoke with Shelby at [facility]. Shelby reported that she will communicate with her team & call CM back with a determination. CM to update attending physician. @15:45- CM received cb from Roseline at [facility]. Roseline stated that their neurosurgeon wants Lobetiffanie to call them to consider if they would be willingto take the patient, despite GWEN pending status and out of network insurance. CMupdated the attending. Controls Technician: Dina Abebe - Home Health/IV Infusion/Wound Vac Home Health Referral Indicated: Yes Home Health List Provided: Yes Indication for Home Health: Wound Care, Other Patient's Response: Yes Home Health Agencies: [facility] Patient given the option to view quality scores of facility?: Yes - Half-Way Facility SNF List Provided: Yes Social Work [...] signed by Dina Abebe> Co-Signed by: on [facility] Work Phone: [phone]) 328-604210-24-2023 Progress note Author Dina Abebe [facility] September 16, 2023 4:16pm Note Date/Time September 16, 2023 8 :26am [facility] Case Management Patient: GEOVANNY MEJÍA1 Yumiko Rivera. : 1970 [place], [place] [address] Location: [phone] Unit #: [id number] Case Management Daily Note Dina Abebe Service Date: 09/16/23 Case Mgmt Daily Note - Plan of Care Controls Technician Agrees with Attending and Consult Plan: Yes - COVID-19 Was Position Statement Letter Delivered?: Yes - Care Coordination Communication Care Coordination Communication: Spoke with patient's family via phone - Hospital Stay Days Day 1 Comment: 09/08 Met with patient in the room. Patient is from [place]. She is up here to visit her sister. Patient reporting she is normally independent. Doesnot have a PCP. Patient would like to use [facility] OP Pharm for meds. Planning to have her cousin pick her up at d/c. Contact is her cousin Ursula. Denies having LW/dPOA. Controls Technician: Evelyne Pena, RN Day 2 Comment: 09/09 Met with patient in the room. Patient asking to get up and move around. PT/OT to eval. S/p L ABD drain placement. Patient agreeable to [facility] for drain mgmt if needed. Reporting she will be going to [facility] at d/c to staywith her cousin Ursula. CM spoke with patients cousin Ursula via telephone who reports she is ok with [facility] coming to her home if patient would go there at d/c. Ursula reporting patient was homeless in [place] and recently move to [place] with faith Amaya. Controls Technician: Evelyne Pena, RN Day 3 Comment: 09/10 D/c needs pending medical course. Jr present. Dilaudid MATERIALS AND PROCESSES MANAGER. PT/OT. ID c/s. Therapy recs for IPR vs OP PT. Will follow to assist with d/c needs. Controls Technician: Evelyne Pena, RN Day 4 Comment: 09/11 Met with patient in the room who is planning to d/c to her [facility] in [place], [place]. Patient is agreeable to [facility]. CM spoke with Ursula who is agreeable for patient to come there at d/c. Referral sent to [facility].Await approval. 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 ABD drain. NPO. ID c/s. PT/OT. Controls Technician: Evelyne Pena, RN Day 5 Comment: 09/12 Met with patient in the room to discuss d/c plan. Patient unable to move b/l LE. No sensation to RLE. Does have sesation to LLE. PT/OT recommending SNF, patient agreeable. She would like to go somewhere near her cousin Ursula in [place]. CM assisted patient with [place] [place] address. SW c/s for SNF placement and [facility] assist with [place]. Patient will need a precert. MATERIALS AND PROCESSES MANAGER continues. If patient would improve with mobility, she has been accepted to [facility]. CM spoke with Ursula via telephone to update. Controls Technician: Evelyne Pena, RN Day 6 Comment: 09/15- POD 2. CM spoke with patient at bedside. VSS. WBC 19.9. PT/OT rec SNF. Pt verbalized agreeable for SNF and would like [facility]. SW c/s & reported that [facility] is not in network with pt insurance. MANOLO spoke w/ pt & Lamin is now reviewing patient. Pt is awaiting the start of [place] GWEN application with [facility] as current dual insurance is out of state. Pt willalso require a precert when medically ready. CM following. Controls Technician: Dina Abebe Day 8 Comment: 09/15- POD 2. CM spoke with patient at bedside. VSS. WBC 19.9. PT/OT rec SNF. Pt verbalized agreeable for SNF and would like [facility]. SW c/s. Pt will require precert when [...] Attending noted plans to attempt transfer to [facility] &if denied, to attempt transfer to [facility], per pt preferance. Transfer packet completed. CM following. @12:21- Nurse reported to CM that Dr Holt has declined to take pt, per [facility], & that a message was relayed to the attending. @14:30- [facility] has assisted pt with completion of [place] vil[place]. CM faxing documentation to [facility] & calling now to verify if they are able to accept pt with that. If unable, CM to fax & verify w/ [facility]. If neither hospital is able to accept, attending plans to reach out to [facility]. @15:00- CM spoke with Shelby at [facility]. Shelby reported that she will communicate with her team & call CM back with a determination. CM to update attending physician. @15:45- CM received cb from Roseline at [facility]. Roseline stated that their neurosurgeon wants Lobetiffanie to call them to consider if they would be willingto take the patient, despite GWEN pending status and out of network insurance. CMupdated the attending. Controls Technician: Dina Abebe - Home Health/IV Infusion/Wound Vac Home Health Referral Indicated: Yes Home Health List Provided: Yes Indication for Home Health: Wound Care, Other Patient's Response: Yes Home Health Agencies: [facility] Patient given the option to view quality scores of facility?: Yes - Half-Way Facility SNF List Provided: Yes Social Work [...] signed by Dina Abebe> Co-Signed by: on [facility] Work Phone: [phone]) 111-235110-24-2023 Progress note Author Jacqueline Edwards [facility] September 16, 2023 3:33pm Note Date/Time September 16, 2023 3 :32pm [facility] Manager Ems Patient: GEOVANNY MEJÍA [address]. : 1970 [place], [place] [address] Location: [phone] Unit #: [id number] Social Work Daily Note Jacqueline Edwards INSULATION CUPOLA CHARGER, ELECTROLYTIC DE SCALER Service Date: 09/16/23 Daily Note - * Psychosocial Assessment * [...] rehab. pt is needing to transfer her [facility] medicaid dual plan. SW got a copy of pts card, pt was unable to move much and couldnt sit up, she needed assistance to get her insurance card out of her wallet. Nurse LENY Hickey called with pt on Friday to transfer the Medicare portion. The Medicaid portion needs cancelled and re-submitted for [place] Medicaid for pts county she will be living in. MANOLO made contact with [facility] for assistance and to re-submit pts medicaid vilma. Pt would like a facility near her cousin ursula's house. There are looking at [facility] in [place], and [facility]. SW made contact with [facility] and they are not in network with [facility]. [facility] is in Network. SWfollow up with pts cousin via phone as she would like her to help with finding anursing home. Per Ursula there is another facility near her [facility]. SW made contact with [facility], they are in network with [facility], Per there admissions person Emmanuel they would be willing to bring pt in with a pending Medicaid number, per Emmanuel both Medicare and Medicaid would need transfered. Referral sent to [facility] for review. Marisol from [facility] to meet with pt. MANOLO to also meet back to assist with canceling [place] if Marisol has not been able to assist pt. Market Development Analyst: Jacqueline Edwards, INSULATION CUPOLA CHARGER, ELECTROLYTIC DE SCALER Day 2 Note: 09/15/23 MANOLO met back with pt, pt was asleep but easily aroused. MANOLO explained to pt that we needed to terminate her [place] Medicaid before submitting an application for [place] Medicaid and this needed to be initiated prior to her Dcing to a SNF. MANOLO called [facility] and had to leave a requesting that they call pt back to so that pt could terminate her [place] Medicaid there and give her new address and county. Market Development Analyst: Jacqueline Edwards, INSULATION CUPOLA CHARGER, ELECTROLYTIC DE SCALER Day 3 Note: 09/16/23 Pt transfer pending for another hospital. Referral was sent tot SNFS, [facility] was able to accept, [facility] was reviewing. Both pt and pt cousin Ursula aware of possible transfer out, but know SNF is still the back up plan, they can also follow back when pt Dcs from other setting and still requires a skilled stay. [facility] initiated a Medicaid application for pt. [place] Medicaid Application/pending number forward to LENY Arroyo if needed for transfer out. Pts cousin Ursula shared with CM that she heard that pt may havea history of substance abuse and this could be contributing to her current condition. SW unsure of this and encouraged her to speak with physician about this when she is next here visiting with pt. Market Development Analyst: Jacqueline Edwards LSW, MSW - * Requested Intvs/Referrals * Software Sales Representative Referrals: SNF/LTAC Placement Market Development Analyst I Referrals: Financial Issues/Medicaid Applications - * HEALTHCARE DECISIONS * Living Will: Unknown Durable Power of Bottle Tester for Health Care: Unknown [facility] DNR Comfort Care: Unknown [facility] DNR Comfort Care Arrest: Unknown - Home Health/IV Infusion/Wound Vac Home Health Referral Indicated: Yes Home Health List Provided: Yes Indication for Home Health: Wound Care, Other Patient's Response: Yes Home Health Agencies: [facility] Patient given options to view quality scores of facility?: No Entered by: MARY Rodriguez MSW on 09/16/23 1523 Report Signed by: LORNA Ovalle on 09/16/23 1533 <<Signature on File>> <Electronically signed by LORNA Hill> Report Signed by: on [facility] Work Phone: 1(585) 581-192910-24-2023 Progress note Author Jacqueline Edwards [facility] September 16, 2023 3:33pm Note Date/Time September 16, 2023 3 :32pm [facility] Manager Ems Patient: GEOVANNY MEJÍA [address]. : 1970 [place], [place] [address] Location: [phone] Unit #: [id number] Social Work Daily Note LORNA Hill Service Date: 09/16/23 Daily Note - * Psychosocial Assessment * I have reviewed nursing and case management psychosocial information.: Yes - * Care Coordination Communication * Care Coordination Communication: Spoke with patient's family via phone - * COVID-19 * Was Position Statement Letter Delivered?: Yes - * Hospital Stay Days * Day 1 Note: 09/15/23 consult for SNF. Pt has recently relocated to the area, living with her cousin. Pt is now in need of SNF placement for rehab. pt is needing to transfer her [employer] medicaid dual plan. SW got a copy of pts card, pt was unable to move much and couldnt sit up, she needed SW assistance to get her insurance card out of her wallet. Nurse LENY Hickey called with pt on Friday to transfer the Medicare portion. The Medicaid portion needs cancelled and re-submitted for [place] Medicaid for pts county she will be living in. SW made contact with [employer] for assistance and to re-submit pts medicaid vilma. Pt would like a facility near her cousin ursula's house. There are looking at [facility] in [place], and [facility]. SW made contact with [facility] and they are not in network with [facility]. [facility] is in Network. SWfollow up with pts cousin via phone as she would like her to help with finding anursing home. Per Ursula there is another facility near her [facility]. SW made contact with [facility], they are in network with [facility], Per there admissions person Emmanuel they would be willing to bring pt in with a pending Medicaid number, per Michelleraza both Medicare and Medicaid would need transfered. Referral sent to [facility] for review. Marisol from [facility] to meet with pt. MANOLO to also meet back to assist with canceling [place] Medicaid if Marisol has not been able to assist pt. Market Development Analyst: Jacqueline Edwards, INSULATION CUPOLA CHARGER, ELECTROLYTIC DE SCALER Day 2 Note: 09/15/23 SW met back with pt, pt was asleep but easily aroused. MANOLO explained to pt that we needed to terminate her [place] Medicaid before submitting an application for [place] Medicaid and this needed to be initiated prior to her Dcing to a SNF. SW called [facility] and had to leave a requesting that they call pt back to so that pt could terminate her [place] Medicaid there and give her new address and county. Market Development Analyst: Jacqueline Edwards, INSULATION CUPOLA CHARGER, ELECTROLYTIC DE SCALER Day 3 Note: 09/16/23 Pt transfer pending for another hospital. Referral was sent toto SNFS, [facility] was able to accept, [facility] was reviewing. Both pt and pt cousin Ursula aware of possible transfer out, but know SNF is still the back up plan, they can also follow back when pt Dcs from other setting and still requires a skilled stay. [employer] initiated a Medicaid application for pt. [place] Medicaid Application/pending number forward to Dina if needed for transfer out. Pts cousin Ursula shared with CM that she heard that pt may havea history of substance abuse and this could be contributing to her current condition. SW unsure of this and encouraged her to speak with physician about this when she is next here visiting with pt. Market Development Analyst: Jacqueline Edwards LSW, LORNA - * Requested Intvs/Referrals * Software Sales Representative Referrals: SNF/LTAC Placement Market Development Analyst I Referrals: Financial Issues/Medicaid Applications - * HEALTHCARE DECISIONS * Living Will: Unknown Durable Power of Bottle Tester for Health Care: Unknown [facility] [place] DNR Comfort Care: Unknown [place] DNR Comfort Care Arrest: Unknown - Home Health/IV Infusion/Wound Vac Home Health Referral Indicated: Yes Home Health List Provided: Yes Indication for Home Health: Wound Care, Other Patient's Response: Yes Home Health Agencies: [facility] Patient given options to view quality scores of facility?: No Entered by: MARY Rodriguez MSW on 09/16/23 1523 Report Signed by: LORNA Ovalle on 09/16/23 1533 <<Signature on File>> <Electronically signed by LORNA Hill> Report Signed by: on [facility] Work Phone: 1([phone]) 673-197910-24-2023 Progress note Author Troy Garber [facility] September 16, 2023 11:39am Note Date/Time September 16, 2023 1 1:39am [facility] Medical Records Patient: GEOVANNY MEJÍA [address] : 1970 [place], [place] [address] Location: [phone] Unit #: [id number] Progress Note - Hospitalist Troy Garber MD [...] with the direction to call first the [facility] for the transfer, and if that [...] a call has been placed to the [facility], according to their choice, and the third choice being the [facility], if the [facility] transfer does not materialize. We will continue with supportive but aggressive management pending the transfer. Current Code Status & Diet: 09/08/23 13:19 Code Status Routine Resuscitation Status: Full Code Code Status Order Placed: Code Status Ordered 09/08/23 at 1321 09/13/23 08:00 Regular Diet Texture: Regular Fluid Restrictions?: No Consult Etl Bi Developer for Oral Supplements/Nourishments?: No Oral Supplement 1: [...] morning, I had given the option of [facility] and the [facility]. Both patient and sister would want me to try [facility] first. A call was placed today [facility] transfer line [phone], and I did speak with Radha ALEGRIA. [...] separately. Entered by: Troy Garber MD on 09/16/231128 Report Signed by: Troy Garber MD on 09/16/231138 <<Signature on File>> <Electronically signed by Troy Garber MD> Report Signed by: on [facility] Work Phone: [phone]) 794-736810-24-2023 Progress note Author Troy Garber [facility] September 16, 2023 11:39am Note Date/Time September 16, 2023 1 1:39am [facility] Medical Records Patient: GEOVANNY MEJÍA. : 1970 [place], [place] [address] [address]: [facility] [phone] Unit #: [id number] Progress Note - Hospitalist Troy Garber MD Service Dt/Tm: 09/16/231128 Assessment/Plan Assessment/Plan (1) Abscess in epidural space [...] with the direction to call first the [facility] for the transfer, and if that [...] a call has been placed to the [facility], according to their choice, and the third choice being the [facility], if the [facility] transfer does not materialize. We will continue with supportive but aggressive management pending the transfer. Current Code Status & Diet: 09/08/23 13:19 Code Status Routine Resuscitation Status: Full Code Code Status Order Placed: Code Status Ordered 09/08/23 at 1321 09/13/23 08:00 Regular Diet Texture: Regular Fluid Restrictions?: No Consult Etl Bi Developer for Oral Supplements/Nourishments?: No Oral Supplement 1: [...] morning, I had given the option of [facility] and the [facility]. Both patient and sister would want me to try [facility] first. A call was placed today [facility] transfer line [phone], and I did speak with Radha ALEGRIA. [...] Entered by: Troy Garber MD on 09/16/23 1129 Report Signed by: Troy Garber MD on 09/16/23 1139 <<Signature on File>> <Electronically signed by Troy Garber MD> Report Signed by: on [facility] Work Phone: 1(735) 647-434410-24-2023 Progress note Author David Elena [facility] September 16, 2023 6:44am Note Date/Time September 16, 2023 6 :42am [facility] Medical Records Patient: GEOVANNY MEJÍA [address] : 1970 [place], [place] [address] Location: [phone] Unit #: [id number] Status Note/Update David Elena MD Service Dt/Tm: 09/15/232044 Note: GEOVANNY MEJÍA is a 53 yr old F who was admitted on 09/08/23 for INTRA ABDOMINAL ABCESS. Transfer process to go to [facility] started. Discussed with patient and also patient's close relative Ursula Echevarria about the transfer to [facility]. They have agreed to be transferred. Spoke to Shabnam transfer nurse at [facility] phone number [phone]. Detailed history was given. She will speak [...] David Elena MD> Report Signed by: on [facility] Work Phone: 1(485) 484-655610-24-2023 Progress note Author David Elena [facility] September 16, 2023 6:44am Note Date/Time September 16, 2023 6 :42am [facility] Medical Records Patient: GEOVANNY MEJÍA [address] : 1970 [place] [address] Location: [address] [place] [address] Unit #: [id number] Status Note/Update David Elena MD Service Dt/Tm: 09/15/232044 Note: GEOVANNY MEJÍA is a 53 yr old F who was admitted on 09/08/23 for INTRA ABDOMINAL ABCESS. Transfer process to go to [facility] started. Discussed with patient and also patient's close relative Ursula Echevarria about the transfer to [facility]. They have agreed to be transferred. Spoke to Shabnam transfer nurse at [facility] phone number [phone]. Detailed history was given. She will speak [...] David Elena MD> Report Signed by: on [facility] Work Phone: [phone]) 309-411810-23-2023 Progress note Author Alec Clemons [facility] September 15, 2023 8:54pm Note Date/Time September 15, 2023 4 :10pm [facility] Medical Records Patient: GEOVANNY MEJÍA [address] : 1970 [place], [place] [address] Location: [phone] Unit #: [id number] Progress Note Neurosurgery Lucy Lara PA-C Service [...] H Lymph % (Auto) 10.2 L D [place] % (Auto) 3.6 D Eos % (Auto) 0.2 Baso % (Auto) 0.0 Nucleat RBC Rel Count 0.0 Absolute Neuts (auto) 37822 H Absolute Lymphs (auto) 2000 Absolute Monos [...] Entered by: Lucy Lara PA-C on 09/15/23 4897 Report Signed by: Lucy Lara PA-C on 09/15/23 1614 <<Signature on File>> < 53 <<Signature on File>> <Electronically signed by Alec Clemons MD> [facility] Work Phone: 1(761) 994-489010-23-2023 Progress note Author Alec Clemons [facility] September 15, 2023 8:54pm Note Date/Time September 15, 2023 4 :10pm [facility] Medical Records Patient: GEOVANNY MEJÍA. : 1970 [place], [place] [address] Location: [phone] Unit #: [id number] Progress Note Neurosurgery Lucy Lara PA-C Service [...] H Lymph % (Auto) 10.2 L D [place] % (Auto) 3.6 D Eos % (Auto) 0.2 Baso % (Auto) 0.0 Nucleat RBC Rel Count 0.0 Absolute Neuts (auto) 35406 H Absolute Lymphs (auto) 2000 Absolute Monos [...] File>> <Electronically signed by Alec Clemons MD> [facility] Work Phone: 1(877) 186-918110-23-2023 Progress note Author Dina Abebe [facility] September 15, 2023 3:54pm Note Date/Time September 15, 2023 9 :16am [facility] Case Management Patient: GEOVANNY MEJÍA. : 1970 [place], [place] [address] Location: [phone] Unit #: [id number] Case Management Daily Note Dina Abebe Service Date: 09/15/23 Case Mgmt Daily Note - Plan of Care Controls Technician Agrees with Attending and Consult Plan: Yes - Patient Preferences & Goals What is the patient's preference?: New SNF Recommended acute discharge goals: New SNF - COVID-19 Was Position Statement Letter Delivered?: Yes - Hospital Stay Days Day 1 Comment: 09/08 Met with patient in the room. Patient is from [place]. She is up here to visit her sister. Patient reporting she is normally independent. Doesnot have a PCP. Patient would like to use [facility] OP [facility] for meds. Planning to have her cousin pick her up at d/c. Contact is her cousin Ursula. Denies having LW/dPOA. Controls Technician: Evelyne Pena, RN Day 2 Comment: 09/09 Met with patient in the room. Patient asking to get up and move around. PT/OT to eval. S/p L ABD drain placement. Patient agreeable to [facility] for drain mgmt if needed. Reporting she will be going to [facility] at d/c to staywith her cousin Ursula. spoke with patients cousin Ursula via telephone who reports she is ok with [facility] coming to her home if patient would go there at d/c. Ursula reporting patient was homeless in [place] and recently move to [place] with faith Amaya. Controls Technician: Evelyne Pena, RN Day 3 Comment: 09/10 D/c needs pending medical course. Jr mullen. Dilaudid MATERIALS AND PROCESSES MANAGER. PT/OT. ID c/s. Therapy recs for IPR vs OP PT. Will follow to assist with d/c needs. Controls Technician: Evelyne Pena, RN Day 4 Comment: 09/11 Met with patient in the room who is planning to d/c to her [facility] in [place], [place]. Patient is agreeable to [facility]. CM spoke with Ursula who is agreeable for patient to come there at d/c. Referral sent to [facility].Await approval. 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 ABD drain. NPO. ID c/s. PT/OT. Controls Technician: Evelyne Pena, RN Day 5 Comment: 09/12 Met with patient in the room to discuss d/c plan. Patient unable to move b/l LE. No sensation to RLE. Does have sesation to LLE. PT/OT recommending SNF, patient agreeable. She would like to go somewhere near her cousin Ursula in [place], [place]. CM assisted patient with [facility] [place] address. c/s for SNF placement and [facility] assist with [place]. Patient will need a precert. MATERIALS AND PROCESSES MANAGER continues. If patient would improve with mobility, she has been accepted to [facility]. CM spoke with Ursula via telephone to update. Controls Technician: Evelyne Pena, RN Day 6 Comment: 09/15- POD 2. CM spoke with patient at bedside. VSS. WBC 19.9. PT/OT rec SNF. Pt verbalized agreeable for SNF and would like [facility]. MANOLO c/s & reported that [facility] is not in network with pt insurance. MANOLO spoke w/ pt & Lamin is now reviewing patient. Pt is awaiting the start of [place] [facility] application with [employer] as current dual insurance is out of state. Pt willalso require a precert when medically ready. CM following. Controls Technician: Dina Abebe R - Home Health/IV Infusion/Wound Vac Home Health Referral Indicated: Yes Home Health List Provided: Yes Indication for Home Health: Wound Care, Other Patient's Response: Yes Home Health Agencies: [facility] Patient given the option to view quality scores of facility?: Yes - Half-Way Facility SNF List Provided: Yes Half-Way Facilities: [facility] Patient given the option to view quality [...] signed by Dina Abebe> Co-Signed by: on [facility] Work Phone: [phone]) 388-354410-23-2023 Progress note Author Dina Abebe [facility] September 15, 2023 3:54pm Note Date/Time September 15, 2023 9 :16am [facility] Case Management Patient: GEOVANNY MEJÍA. : 1970 [place], [place] [address] Location: [facility] [phone] Unit #: [id number] Case Management Daily Note Dina Abebe Service Date: 09/15/23 Case Mgmt Daily Note - Plan of Care Controls Technician Agrees with Attending and Consult Plan: Yes - Patient Preferences & Goals What is the patient's preference?: New SNF Recommended acute discharge goals: New SNF - COVID-19 Was Position Statement Letter Delivered?: Yes - Hospital Stay Days Day 1 Comment: 09/08 Met with patient in the room. Patient is from [place]. She is up here to visit her sister. Patient reporting she is normally independent. Doesnot have a PCP. Patient would like to use [facility] OP Pharm for meds. Planning to have her cousin pick her up at d/c. Contact is her cousin Ursula. Denies having LW/dPOA. Controls Technician: Evelyne Pena, RN Day 2 Comment: 09/09 Met with patient in the room. Patient asking to get up and move around. PT/OT to eval. S/p L ABD drain placement. Patient agreeable to [facility] for drain mgmt if needed. Reporting she will be going to [facility] at d/c to staywith her cousin Ursula. CM spoke with patients cousin Ursula via telephone who reports she is ok with [facility] coming to her home if patient would go there at d/c. Ursula reporting patient was homeless in [place] and recently move to [place] with faith Amaya. Controls Technician: Evelyne Pena, RN Day 3 Comment: 09/10 D/c needs pending medical course. Jr present. Dilaudid MATERIALS AND PROCESSES MANAGER. PT/OT. ID c/s. Therapy recs for IPR vs OP PT. Will follow to assist with d/c needs. Controls Technician: Evelyne Pena, RN Day 4 Comment: 09/11 Met with patient in the room who is planning to d/c to her [facility] in [place], [place]. Patient is agreeable to [facility]. CM spoke with Ursula who is agreeable for patient to come there at d/c. Referral sent to [facility].Await approval. 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 ABD drain. NPO. ID c/s. PT/OT. Controls Technician: Evelyne Pena, RN Day 5 Comment: 09/12 Met with patient in the room to discuss d/c plan. Patient unable to move b/l LE. No sensation to RLE. Does have sesation to LLE. PT/OT recommending SNF, patient agreeable. She would like to go somewhere near her cousin Ursula in [place], [place]. CM assisted patient with changing her address withher [facility] insurance to an [place] address. SW c/s for SNF placement and [facility] assist with [place]. Patient will need a precert. MATERIALS AND PROCESSES MANAGER continues. If patient would improve with mobility, she has been accepted to [facility]. CM spoke with Ursula via telephone to update. Controls Technician: Evelyne Pena, RN Day 6 Comment: 09/15- POD 2. CM spoke with patient at bedside. VSS. WBC 19.9. PT/OT rec SNF. Pt verbalized agreeable for SNF and would like [facility]. SW c/s & reported that [facility] is not in network with pt insurance. MANOLO spoke w/ pt & Lamin is now reviewing patient. Pt is awaiting the start of [facility] application with [employer] as current dual insurance is out of state. Pt willalso require a precert when medically ready. CM following. Controls Technician: Dina Abebe - Home Health/IV Infusion/Wound Vac Home Health Referral Indicated: Yes Home Health List Provided: Yes Indication for Home Health: Wound Care, Other Patient's Response: Yes Home Health Agencies: [facility] Patient given the option to view quality scores of facility?: Yes - Half-Way Facility SNF List Provided: Yes Half-Way Facilities: [facility] Patient given the option to view quality [...] signed by Dina Abebe> Co-Signed by: on [facility] Work Phone: [phone]) [phone] Progress note Author Jacqueline Edwards [facility] September 15, 2023 3:53pm Note Date/Time September 15, 2023 3 :53pm [facility] Manager Ems Patient: GEOVANNY MEJÍA [address] : 1970 [place], [place] [address] Location: [phone] Unit #: [id number] Social Work Daily Note Jacqueline Edwards INSULATION CUPOLA CHARGER, ELECTROLYTIC DE SCALER Service Date: 09/15/23 MANOLO Daily Note - [...] rehab. pt is needing to transfer her [facility] medicaid dual plan. SW got a copy of pts card, pt was unable to move much and couldnt sit up, she needed SW assistance to get her insurance card out of her wallet. Nurse LENY Hickey called with pt on Friday to transfer the Medicare portion. The Medicaid portion needs cancelled and re-submitted for [place] for pts county she will be living in. SW made contact with [facility] for assistance and to re-submit pts medicaid vilma. Pt would like a facility near her cousin ursula's house. There are looking at [facility] in [place], and [facility]. SW made contact with [facility] and they are not in network with [facility]. [facility] is in Network. SWfollow up with pts cousin via phone as she would like her to help with finding anursing home. Per Ursula there is another facility near her [facility]. SW made contact with [facility], they are in network with [facility], Per there admissions person Emmanuel they would be willing to bring pt in with a pending Medicaid number, per Emmanuel both Medicare and Medicaid would need transfered. Referral sent to [facility] for review. Marisol from [facility] to meet with pt. SW to also meet back to assist with canceling [place] if Marisol has not been able to assist pt. Market Development Analyst: Jacqueline Edwards, INSULATION CUPOLA CHARGER, ELECTROLYTIC DE SCALER Day 2 Note: 09/15/23 SW met back with pt, pt was asleep but easily aroused. SW explained to pt that we needed to terminate her [place] Medicaid before submitting an application for [place] Medicaid and this needed to be initiated prior to her Dcing to a SNF. SW called [facility] and had to leave a VM requesting that they call pt back to so that pt could terminate her [place] Medicaid there and give her new address and county. Market Development Analyst: Jacqueline Edwards LSW, MSW - * Requested Intvs/Referrals * Software Sales Representative Referrals: SNF/LTAC Placement Market Development Analyst I Referrals: Financial Issues/Medicaid Applications - * HEALTHCARE DECISIONS * Living Will: Unknown Durable Power of Bottle Tester for Health Care: Unknown [facility] DNR Comfort Care: Unknown [facility] DNR Comfort Care Arrest: Unknown - Home Health/IV Infusion/Wound Vac Home Health Referral Indicated: Yes Home Health List Provided: Yes Indication for Home Health: Wound Care, Other Patient's Response: Yes Home Health Agencies: [facility] Patient given options to view quality scores of facility?: No Entered by: MARY Rodriguez MSW on 09/15/23 1549 Report Signed by: LORNA Ovalle on 09/15/23 1556 <<Signature on File>> <Electronically signed by LORNA Hill> Report Signed by: on [facility] Work Phone: [phone]) [phone] Progress note Author Jacqueline Edwards [facility] September 15, 2023 3:53pm Note Date/Time September 15, 2023 3 :53pm [facility] Manager Ems Patient: GEOVANNY MEJÍA. : 1970 [place], [place] [address] Location: [phone] Unit #: [id number] Social Work Daily Note LORNA Hill Service Date: 09/15/23 MANOLO Daily Note - [...] rehab. pt is needing to transfer her [facility] medicaid dual plan. SW got a copy of pts card, pt was unable to move much and couldnt sit up, she needed SW assistance to get her insurance card out of her wallet. Nurse LENY Hickey called with pt on Friday to transfer the Medicare portion. The Medicaid portion needs cancelled and re-submitted for [place] for pts county she [place] be living in. SW made contact with [facility] for assistance and to re-submit pts medicaid vilma. Pt would like a facility near her cousin ursula's house. There are looking at [facility] in [place], and [facility]. SW made contact with [facility] and they are not in network with [facility]. [facility] is in Network. SWfollow up with pts cousin via phone as she would like her to help with finding anursing home. Per Ursula there is another facility near her [facility]. SW made contact with [facility], they are in network with [facility], Per there admissions person Emmanuel they would be willing to bring pt in with a pending Medicaid number, per Emmanuel both Medicare and Medicaid would need transfered. Referral sent to [facility] for review. Marisol from [facility] to meet with pt. SW to also meet back to assist with canceling [place] if Marisol has not been able to assist pt. Market Development Analyst: Jacqueline Edwards, INSULATION CUPOLA CHARGER, ELECTROLYTIC DE SCALER Day 2 Note: 09/15/23 MANOLO met back with pt, pt was asleep but easily aroused. SW explained to pt that we needed to terminate her [place] Medicaid before submitting an application for [place] Medicaid and this needed to be initiated prior to her Dcing to a SNF. MANOLO called [facility] and had to leave a VM requesting that they call pt back to so that pt could terminate her [place] Medicaid there and give her new address and county. Market Development Analyst: Jacqueline Edwards, INSULATION CUPOLA CHARGER, ELECTROLYTIC DE SCALER - * Requested Intvs/Referrals * Software Sales Representative Referrals: SNF/LTAC Placement Market Development Analyst I Referrals: Financial Issues/Medicaid Applications - * HEALTHCARE DECISIONS * Living Will: Unknown Durable Power of Bottle Tester for Health Care: Unknown [facility] DNR Comfort Care: Unknown [facility] DNR Comfort Care Arrest: Unknown - Home Health/IV Infusion/Wound Vac Home Health Referral Indicated: Yes Home Health List Provided: Yes Indication for Home Health: Wound Care, Other Patient's Response: Yes Home Health Agencies: [facility] Patient given options to view quality scores of facility?: No Entered by: MARY Rodriguez MSW on 09/15/23 1549 Report Signed by: LORNA Ovalle on 09/15/23 2923 <<Signature on File>> <Electronically signed by LORNA Hill> Report Signed by: on [facility] Work Phone: 1([phone]) 841-116410-23-2023 Progress note Author Jacqueline Edwards [facility] September 15, 2023 2:21pm Note Date/Time September 15, 2023 2 :20pm [facility] Manager Ems Patient: GEOVANNY MEJÍA [address] : 1970 [place], [place] [address] Location: [phone] Unit #: [id number] Social Work Daily Note LORNA Hill Service [...] rehab. pt is needing to transfer her [facility] medicaid dual plan. SW got a copy of pts card, pt was unable to move much and couldnt sit up, she needed MANOLO assistance to get her insurance card out [...] cousin ursula's house. There are looking at [facility] in [place], and [facility]. SW made contact with [facility] and they are not in network with [facility]. Tammy Starkey is in Network. SWfollow up with pts cousin via phone as she would like her to help with finding anursing home. Per Ursula there is another facility near her [facility]. SW made contact with [facility], they are in network with [facility], Per there admissions person Emmanuel they would be willing to bring pt in with a pending Medicaid number, per Emmanuel both Medicare and Medicaid would need transfered. Referral sent to [facility] for review. Marisol from [facility] to meet with pt. SW to also meet back to assist with canceling [place] Medicaid if Marisol has not been able to assist pt. Market Development Analyst: Jacqueline Edwards LSW, MSW - * Information * Oriented to: Person, Place, Time, Situation Mental Status/Mood: Alert and Oriented, Cooperative - * Requested Intvs/Referrals * Software Sales Representative Referrals: SNF/LTAC Placement Market Development Analyst I Referrals: Financial Issues/Medicaid Applications - * HEALTHCARE DECISIONS * Living Will: Unknown Durable Power of Bottle Tester for Health Care: Unknown [facility] [place] DNR Comfort Care: Unknown [facility] [place] DNR Comfort Care Arrest: Unknown - Home Health/IV Infusion/Wound Vac Home Health Referral Indicated: Yes Home Health List Provided: Yes Indication for Home Health: Wound Care, Other Patient's Response: Yes Home Health Agencies: [facility] Patient given options to view quality scores of facility?: No Entered by: MARY Rodriguez MSW on 09/15/23 1405 Report Signed by: LORNA Ovalle on 09/15/23 1421 <<Signature on File>> <Electronically signed by LORNA Hill> Report Signed by: on [facility] Work Phone: [phone]) [phone] Progress note Author Jacqueline Edwards [facility] September 15, 2023 2:21pm Note Date/Time September 15, 2023 2 :20pm [facility] Manager Ems Patient: GEOVANNY MEJÍA [address] : 1970 [place], [place] [address] Location: [facility] [phone] Unit #: [id number] Social Work Daily Note Jacqueline MICHAELW, ELECTROLYTIC DE SCALER Service Date: 09/15/23 SW Daily Note - [...] rehab. pt is needing to transfer her [facility] medicaid dual plan. SW got a copy of pts card, pt was unable to move much and couldnt sit up, she needed SW assistance to get her insurance card out of her wallet. Nurse LENY Hickey called with pt on Friday to transfer the Medicare portion. The Medicaid portion needs cancelled and re-submitted for [place] Medicaid for pts county she will be living in. SW made contact with [facility] for assistance and to re-submit pts medicaid vilma. Pt would like a facility near her cousin ursula's house. There are looking at [facility] in [place], and [facility]. SW made contact with [facility] and they are not in network with [facility]. [facility] is in Network. SWfollow up with pts cousin via phone as she would like her to help with finding anursing home. Per Ursula there is another facility near her [facility]. SW made contact with [facility], they are in network with [facility], Per there admissions person Emmanuel they would be willing to bring pt in with a pending Medicaid number, per Emmanuel both Medicare and Medicaid would need transfered. Referral sent to [facility] for review. Marisol from [facility] to meet with pt. SW to also meet back to assist with canceling [place] Medicaid if Marisol has not been able to assist pt. Market Development Analyst: Jacqueline Edwards, MARY, ELECTROLYTIC DE SCALER - * Information * Oriented to: Person, Place, Time, Situation Mental Status/Mood: Alert and Oriented, Cooperative - * Requested Intvs/Referrals * Software Sales Representative Referrals: SNF/LTAC Placement Market Development Analyst I Referrals: Financial Issues/Medicaid Applications - * HEALTHCARE DECISIONS * Living Will: Unknown Durable Power of Bottle Tester for Health Care: Unknown [facility] DNR Comfort Care: Unknown [facility] DNR Comfort Care Arrest: Unknown - Home Health/IV Infusion/Wound Vac Home Health Referral Indicated: Yes Home Health List Provided: Yes Indication for Home Health: Wound Care, Other Patient's Response: Yes Home Health Agencies: [facility] Patient given options to view quality scores of facility?: No Entered by: MARY Rodriguez MSW on 09/15/23 1405 Report Signed by: LORNA Ovalle on 09/15/23 1421 <<Signature on File>> <Electronically signed by LORNA Hill> Report Signed by: on [facility] Work Phone: 1(257) 633-217410-23-2023 Progress note Author Troy Garber [facility] September 15, 2023 1:57pm Note Date/Time September 15, 2023 7 :45am [facility] Medical Records Patient: GEOVANNY MEJÍA. : 1970 [place], [place] [address] Location: [phone] Unit #: [id number] Progress Note - Hospitalist Troy Garber MD [...] international units daily by mouth, and also Os-Rliey 500, 1 tablet daily. We will continue [...] Diet Texture: Regular Fluid Restrictions?: No Consult Etl Bi Developer for Oral Supplements/Nourishments?: No Discussed Patient's Care [...] Troy Garber MD> Report Signed by: on [facility] Work Phone: [phone]) 108-774410-23-2023 Progress note Author Troy Garber [facility] September 15, 2023 1:57pm Note Date/Time September 15, 2023 7 :45am [facility] Medical Records Patient: GEOVANNY MEJÍA. : 1970 [place], [place] [address] Location: [facility] [phone] Unit #: [id number] Progress Note - Hospitalist Troy Garber MD [...] Diet Texture: Regular Fluid Restrictions?: No Consult Etl Bi Developer for Oral Supplements/Nourishments?: No Discussed Patient's Care [...] Entered by: Troy Garber MD on 09/15/23 2250 Report Signed by: Troy Garber MD on 09/15/23 8875 <<Signature on File>> <Electronically signed by Troy Garber MD> Report Signed by: on [facility] Work Phone: 1(468) 296-425010-22-2023 Progress note Author Alec Clemons [facility] September 14, 2023 8:12pm Note Date/Time September 14, 2023 1 1:07am [facility] Medical Records Patient: GEOVANNY MEJ[address] : 1970 [place], [place] [address] Location: [phone] [facility] #[facility] [id number] [id number] Progress Note Neurosurgery Lucy Lara PA-C Service [...] Monocytes % (Manual) 2.0 Abs Neuts (Manual) 17493 H Abs Lymphs (Manual) 2366 Abs Monocytes [...] Entered by: Lucy Lara PA-C on 09/14/23 110 Report Signed by: Lucy Lara PA-C on 09/14/23 1125 <<Signature on File>> < 11 <<Signature on File>> <Electronically signed by Alec Clemons MD> [facility] Work Phone: 1(885) 967-913610-22-2023 Progress note Author Alec Clemons [facility] September 14, 2023 8:12pm Note Date/Time September 14, 2023 1 1:07am [facility] Medical Records Patient: GEOVANNY [address] : 1970 [place], [place] [address] Location: [address] [place] [address] Unit #: [id number] Progress Note Neurosurgery Lucy Lara PA-C Service [...] Monocytes % (Manual) 2.0 Abs Neuts (Manual) 35345 H Abs Lymphs (Manual) 2366 Abs Monocytes [...] File>> <Electronically signed by Alec Clemons MD> [facility] Work Phone: 1([phone]) 345-149410-22-2023 Progress note Author Troy Garber [facility] September 14, 2023 3:39pm Note Date/Time September 14, 2023 9 :29am [facility] Medical Records Patient: GEOVANNY MEJÍA. : 1970 [place], [place] [address] Location: [phone] Unit #: [id number] Progress Note - Hospitalist Troy Garber MD [...] Diet Texture: Regular Fluid Restrictions?: No Consult Etl Bi Developer for Oral Supplements/Nourishments?: No Discussed Patient's Care [...] Entered by: Troy Garber MD on 09/14/23 0178 Report Signed by: Troy Garber MD on 09/14/23 8032 <<Signature on File>> <Electronically signed by Troy Garber MD> Report Signed by: on [facility] Work Phone: 1([phone] Progress note Author Troy Garber [facility] September 14, 2023 3:39pm Note Date/Time September 14, 2023 9 :29am [facility] Medical Records Patient: GEOVANNY MEJÍA. : 1970 [place], [place] [address] Location: [address] [place] [address] Unit #: [id number] Progress Note - Hospitalist Troy Garber MD [...] Diet Texture: Regular Fluid Restrictions?: No Consult Etl Bi Developer for Oral Supplements/Nourishments?: No Discussed Patient's Care [...] Signed by: Troy Garber MD on 09/14/23 1534 <<Signature on File>> <Electronically signed by Troy Garber MD> Report Signed by: on [facility] Work Phone: [phone]) 914-405810-22-2023 Progress note Author Noy Lechuga [facility] September 14, 2023 10:24am Note Date/Time September 14, 2023 7 :25am [facility] Medical Records Patient: GEOVANNY MEJÍA [address] : 1970 [place], [place] [address] Location: [address] [place] [address] Unit #: [id number] Progress Note Surgical Justin Encinas ([facility]) JODIE Service Dt/Tm: 09/14/23 0058 Patient seen and examined independently by me.? [...] 392 Neut % (Auto) Lymph % (Auto) [place] % (Auto) Eos % (Auto) Baso % (Auto) Nucleat RBC Rel Count Absolute Neuts (auto) Absolute Lymphs (auto) Absolute Monos (auto) Absolute Eos (auto) Absolute Basos (auto) Neutrophils % (Manual) 81.0 H Band Neutrophils % 4.0 Lymphocytes % (Manual) 13.0 L Monocytes % (Manual) 2.0 Abs Neuts (Manual) 55412 H Abs Lymphs (Manual) 2366 Abs Monocytes [...] Count Neut % (Auto) Lymph % (Auto) [place] % (Auto) Eos % (Auto) Baso % [...] Count Neut % (Auto) Lymph % (Auto) [place] % (Auto) Eos % (Auto) Baso % [...] Count Neut % (Auto) Lymph % (Auto) [place] % (Auto) Eos % (Auto) Baso % [...] 95.6 H Lymph % (Auto) 2.9 L [place] % (Auto) 1.4 L Eos % (Auto) 0.0 Baso % (Auto) 0.1 Nucleat RBC Rel Count 0.0 Absolute Neuts (auto) 62347 H Absolute Lymphs (auto) 1000 Absolute Monos [...] Staphylococcus aureus Staphylococcus epidermidis Entered by: Justin PerezOKLAHOMA STATE [facility]IE Donaldson on 09/14/23 0725 Report Signed by: Justin PerezOKLAHOMA [facility]SAAnika Encinas PA-C on 09/14/23 1019 <<Signature on File>> <Electronically signed by Justin PerezOKLAHOMA STATE [facility]SAAnika FELICIANO> Report Signed by: Noy Lechuga MD on 09/14/23 1024 <<Signature on File>> <Electronically signed by Noy Lechuga MD> [facility] Work Phone: 1([phone]) 383-363710-22-2023 Progress note Author Noy Lechuga [facility] September 14, 2023 10:24am Note Date/Time September 14, 2023 7 :25am [facility] Medical Records Patient: GEOVANNY MEJÍA [address] : 1970 [place], [place] [address] Location: [phone] Unit #: [id number] Progress Note Surgical Justin Encinas ([facility]) JODIE Service Dt/Tm: 09/14/23 07 Patient seen and examined independently by me.? [...] 392 Neut % (Auto) Lymph % (Auto) [place] % (Auto) Eos % (Auto) Baso % (Auto) Nucleat RBC Rel Count Absolute Neuts (auto) Absolute Lymphs (auto) Absolute Monos (auto) Absolute Eos (auto) Absolute Basos (auto) Neutrophils % (Manual) 81.0 H Band Neutrophils % 4.0 Lymphocytes % (Manual) 13.0 L Monocytes % (Manual) 2.0 Abs Neuts (Manual) 22890 H Abs Lymphs (Manual) 2366 Abs Monocytes [...] Count Neut % (Auto) Lymph % (Auto) [place] % (Auto) Eos % (Auto) Baso % [...] Count Neut % (Auto) Lymph % (Auto) [place] % (Auto) Eos % (Auto) Baso % [...] Count Neut % (Auto) Lymph % (Auto) [place] % (Auto) Eos % (Auto) Baso % [...] 95.6 H Lymph % (Auto) 2.9 L [place] % (Auto) 1.4 L Eos % (Auto) 0.0 Baso % (Auto) 0.1 Nucleat RBC Rel Count 0.0 Absolute Neuts (auto) 87291 H Absolute Lymphs (auto) 1000 Absolute Monos [...] Staphylococcus aureus Staphylococcus epidermidis Entered by: Justin PerezOK[facility]JODIE on 09/14/23 0725 Report Signed by: Justin PerezOKLAHOMA [facility]ika Encinas PA-C on 09/14/23 1019 <<Signature on File>> <Electronically signed by Justin PerezOKLAH[facility]) JODIE> Report Signed by: Noy Lechuga MD on 09/14/23 1024 <<Signature on File>> <Electronically signed by Noy Lechuga MD> [facility] Work Phone: 1([phone]) 859-741710-21-2023 Progress note Author Noy Lechuga [facility] September 13, 2023 5:35pm Note Date/Time September 13, 2023 1 0:30am [facility] Medical Records Patient: GEOVANNY MEJÍA [address] : 1970 [place], [place] [address] Location: [address] [place] [address] Unit #: [id number] Progress Note Surgical Justin Encinas ([facility]) JODIE Service Dt/Tm: 09/13/23 1030 Patient seen [...] Count Neut % (Auto) Lymph % (Auto) [place] % (Auto) Eos % (Auto) Baso % [...] Count Neut % (Auto) Lymph % (Auto) [place] % (Auto) Eos % (Auto) Baso % [...] Count Neut % (Auto) Lymph % (Auto) [place] % (Auto) Eos % (Auto) Baso % [...] 95.6 H Lymph % (Auto) 2.9 L [place] % (Auto) 1.4 L Eos % (Auto) 0.0 Baso % (Auto) 0.1 Nucleat RBC Rel Count 0.0 Absolute Neuts (auto) 26716 H Absolute Lymphs (auto) 1000 Absolute Monos [...] Count Neut % (Auto) Lymph % (Auto) [place] % (Auto) Eos % (Auto) Baso % [...] Staphylococcus aureus Staphylococcus epidermidis Entered by: Justin PerezOK[facility]JODIE on 09/13/23 1030 Report Signed by: Justin PerezOKLAHOMA [facility]Anika Encinas PA-C on 09/13/23 1619 <<Signature on File>> <Electronically signed by Justin PerezOKLAHOMA [facility]) JODIE> Report Signed by: Noy Lechuga MD on 09/13/23 1735 <<Signature on File>> <Electronically signed by Noy Lechuga MD> [facility] Work Phone: 1([phone]) [phone] Progress note Author Noy Lechuga [facility] September 13, 2023 5:35pm Note Date/Time September 13, 2023 1 0:30am [facility] Medical Records Patient: GEOVANNY MEJÍA [address] : 1970 [place] [address] Location: [address] [place] [address] Unit #: [id number] Progress Note Surgical Justin Encinas ([facility]) JODIE Service Dt/Tm: 09/13/23 1030 Patient seen [...] Count Neut % (Auto) Lymph % (Auto) [place] % (Auto) Eos % (Auto) Baso % [...] Count Neut % (Auto) Lymph % (Auto) [place] % (Auto) Eos % (Auto) Baso % [...] Count Neut % (Auto) Lymph % (Auto) [place] % (Auto) Eos % (Auto) Baso % [...] 95.6 H Lymph % (Auto) 2.9 L [place] % (Auto) 1.4 L Eos % (Auto) 0.0 Baso % (Auto) 0.1 Nucleat RBC Rel Count 0.0 Absolute Neuts (auto) 05516 H Absolute Lymphs (auto) 1000 Absolute Monos [...] Count Neut % (Auto) Lymph % (Auto) [place] % (Auto) Eos % (Auto) Baso % [...] Staphylococcus aureus Staphylococcus epidermidis Entered by: Justin PerezOK[facility]JODIE on 09/13/23 1030 Report Signed by: Justin PerezOKLAH[facility]Anika Encinas PA-C on 09/13/23 1619 <<Signature on File>> <Electronically signed by Justin PerezOKLAH[facility]) JODIE> Report Signed by: Noy Lechuga MD on 09/13/23 1735 <<Signature on File>> <Electronically signed by Noy Lechuga MD> [facility] Work Phone: 1(870) [phone] Progress note Author Troy Garber [facility] September 13, 2023 5:29pm Note Date/Time September 13, 2023 8 :00am [facility] Medical Records Patient: GEOVANNY [address] : 1970 [place], [place] [address] Location: [address] [place] [address] Unit #: [id number] Progress Note - Hospitalist Troy Garber MD [...] Diet Texture: Regular Fluid Restrictions?: No Consult Etl Bi Developer for Oral Supplements/Nourishments?: No Discussed Patient's Care [...] 09/12/23 10:31 CT Lumbar Spine W/O Cont [id number] Urgent 09/12/23 14:27 Lumbar Spine w/wo Contrast [...] Troy Garber MD> Report Signed by: on [facility] Work Phone: [phone] Progress note Author Troy Garber [facility] September 13, 2023 5:29pm Note Date/Time September 13, 2023 8 :00am [facility] Medical Records Patient: GEOVANNY MEJÍA. : 1970 [place], [place] [address] Location: [phone] Unit #: [id number] Progress Note - Hospitalist Troy Garber MD Service Dt/Tm: 09/13/23799 Assessment/Plan Assessment/Plan (1) Abscess in epidural space [...] Diet Texture: Regular Fluid Restrictions?: No Consult Etl Bi Developer for Oral Supplements/Nourishments?: No Discussed Patient's Care [...] 09/12/23 10:31 CT Lumbar Spine W/O Cont 34158 Urgent 09/12/23 14:27 Lumbar Spine w/wo Contrast [...] Troy Garber MD> Report Signed by: on [facility] Work Phone: [phone] [facility] Patient: GEOVANNY MEJÍA. : 1970 [place] [address] Location: [address] [place] [address] Unit #: [id number] Procedure Note - Surgical Lucy Lara PA-C Service Dt/Tm: 09/13/23711 Date of Procedure: 09/13/23 Pre-Procedure Diagnosis: epidural abscess T4-5 and T10-11 Post Procedure Diagnosis: Same Performing Surgeon/Physician: Alec Clemons MD Was Finish Molder(s) Used: Yes Finish Molder(s): Lucy Lara Procedure Performed: Thoracic Hemilaminectomy T4-5 and T10-T11 Findings: Post Op Diagnosis Confirmed Type of Anesthesia Used: General Estimated Blood Loss: <500 Disposition of Specimen: Pathology Complications: None Disposition after Procedure: PACU Entered by: Lucy Lara PA-C on 09/13/23711 Report Signed by: Lucy Lara PA-C on 09/13/23722 < > Report Signed by: Alec Clemons MD on 09/13/23 1509 < > [facility]2023 Consult note Author Alec Clemons [facility] September 13, 2023 3:02pm Note Date/Time September 13, 2023 2 :02am [facility] Medical Records Patient: GEOVANNY MEJÍA. : 1970 [place], [place] [address] Location: [phone] Unit #: [id number] Consultation Lucy Lara PA-C Service Date: 09/13/23 History of Present Illness Date of Consultation: 09/13/23 Time Seen: 01:30 History of Present Illness: GEOVANNY MEJAÍ is a 53 yr old F who was admitted on 09/08/23 for INTRA ABDOMINAL ABCESS. 53-year-old female with past medical history of hypertension transferred from [facility] for abdominal pain on 09/08/2023. She was evaluated [facility] surgery and found to have left-sided retroperitoneal [...] (2-10) L 09/08/23 18:27 Abs Neuts (Manual) 31231 /cmm (1782-3351) H 09/08/23 18:27 Abs Lymphs (Manual) 996 /cmm (1280-1497) L 09/08/23 18:27 Abs Monocytes (Manual) 249 [...] 03:59 Lactic Acid 1.1 mmol/L (0.5-2.0) 09/08/23 18: Calcium 7.60 mg/dL (8.8-10.5) L 09/12/23 03:59 Ionized Calcium 1.07 mmol/L (1.15-1.29) L 09/12/23 14:08 Magnesium 2.2 mg/dL (1.8-2.5) 09/12/23 03:59 Total Bilirubin 0.4 mg/dL (0.2-1.0) 09/08/23 18: [...] 09/12/23 10:31 CT Lumbar Spine W/O Cont [id number] Urgent 09/12/23 14:27 Lumbar Spine w/wo Contrast [...] point that 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 She has had difficulty walking since presentation [...] Report Signed by: Lucy Lara PA-C on 09/13/23206 <<Signature on File>> < 1502 <<Signature on File>> <Electronically signed by Alec Clemons MD> [facility] Work Phone: 1([phone]) 914-329610-21-2023 [facility] Procedure note [facility]2023 Procedure [facility] 09-13-2023 Progress note Author Jeb Mackey [facility] September 13, 2023 3:16am Note Date/Time September 13, 2023 2 :30am [facility] Medical Records Patient: GEOVANNY MEJÍA [address] : 1970 [place], [place] [address] Location: [phone] Unit #: [id number] Anesthesia Pre-Op Evaluation Chante Mauricio STICKER MACHINE OPERATOR Service Dt/Tm: 09/13/23 0227 GEOVANNY MEJÍA is [...] (Magnesium Replacement Protocol 1 Ea Ea) 1 actrina MD DIRECTED PRN; Protocol PRN Reason: SEE COMMENTS BELOW Stop: 12/16/23 13:20 Electrolyte Protocol (Potassium Replacement Protocol 1 Ea Ea) 1 catrina MD DIRECTED PRN; Protocol PRN Reason: SEE COMMENTS BELOW Stop: 12/16/23 13:20 Furosemide (Furosemide 40 Mg/4 Ml Vial) 40 mg IV PUSH DAILY [facility] Stop: 12/20/23 09:01 Last Admin: 09/12/23 09:55 [...] mg Hydromorphone HCl (Hydromorphone 6 Mg/30 Ml Quality Compliance Manager.[place]) 6 mg IV MATERIALS AND PROCESSES MANAGER DIRECTEDSCH Stop: 12/17/23 11:31 Last Admin: 09/12/23 [...] 1 Ea Cap) 1 ea PO DAILY [facility] Stop: 10/09/23 09:01 Last Admin: 09/12/23 09:55 [...] Ea) 1 catrina MEJÍA PHA TO DOSE [facility] Stop: 10/12/23 17:01 Ondansetron HCl (Ondansetron 4 [...] File>> <Electronically signed by Jeb Mackey DO> [facility] Work Phone: 1([phone]) 657-682410-21-2023 Progress note Author Jeb Mackey [facility] September 13, 2023 3:16am Note Date/Time September 13, 2023 2 :30am [facility] Medical Records Patient: GEOVANNY MEJÍA [address] : 1970 [place], [place] [address] Location: [facility] [phone] Unit #: [id number] Anesthesia Pre-Op Evaluation Chante Mauricio STICKER MACHINE OPERATOR Service Dt/Tm: 09/13/23226 GEOVANNY MEJÍA is a [...] Replacement Protocol 1 Ea Ea) 1 catrina MEJÍA DIRECTED PRN; Protocol PRN [...] mg Hydromorphone HCl (Hydromorphone 6 Mg/30 Ml Quality Compliance Manager.Syring) 6 mg IV MATERIALS AND PROCESSES MANAGER DIRECTEDSCH Stop: 12/17/23 11:31 Last Admin: 09/12/23 [...] File>> <Electronically signed by Jeb Mackey DO> [facility] Work Phone: 1(616) 937-271910-21-2023 Progress note Author Alec Clemons [facility] September 13, 2023 2:17am Note Date/Time September 13, 2023 2 :17am [facility] Medical Records Patient: GEOVANNY MEJÍA [address] : 1970 [place] [address] Location: [address] [place] [address] Unit #: [id number] Status Note/Update Alec Clemons MD Service Dt/Tm: [...] Alec Clemons MD> Report Signed by: on [facility] Work Phone: 1(652) 190-400010-21-2023 Progress note Author Alec Clemons [facility] September 13, 2023 2:17am Note Date/Time September 13, 2023 2 :17am [facility] Medical Records Patient: GEOVANNY MEJÍA[address] : 1970 [place] [address] Location: [address] [place], [place] [address] Unit #: [id number] Status Note/Update Alec Clemons MD Service Dt/Tm: [...] Report Signed by: Alec Clemons MD on 09/13/237 <<Signature on File>> <Electronically signed by Alec Clemons MD> Report Signed by: on [facility] Work Phone: 1(516) 947-534310-20-2023 Progress note Author Craig Rodriguez [facility] September 12, 2023 10:37am Note Date/Time September 12, 2023 1 0:36am [facility] Medical Records Patient: GEOVANNY MEJÍA. : 1970 [place], [place] [address] Location: [phone] Unit #: [id number] Progress Note - Hospitalist Craig Rodriguez DO [...] negative to date Patient is on Dilaudid MATERIALS AND PROCESSES MANAGER due to her significant pain Her abdominal [...] Craig Rodriguez DO> Report Signed by: on [facility] Work Phone: 1([phone]) 431-906310-20-2023 Progress note Author Craig Rodriguez [facility] September 12, 2023 10:37am Note Date/Time September 12, 2023 1 0:36am [facility] Medical Records Patient: GEOVANNY MEJÍA [address] : 1970 [place], [place] [address] Location: [facility] [phone] Unit #: [id number] [id number] Progress Note - Hospitalist Craig Rodriguez DO [...] negative to date Patient is on Dilaudid MATERIALS AND PROCESSES MANAGER due to her significant pain Her abdominal [...] Craig Rodriguez DO> Report Signed by: on [facility] Work Phone: [phone] 929-102010-19-2023 Progress note Author Evelyne Pena [facility] September 11, 2023 12:20pm Note Date/Time September 11, 2023 1 2:20pm [facility] Case Management Patient: GEOVANNY MEJÍA. : 1970 [place], [place] [address] Location: [phone] Unit #: [id number] Case Management General Note Evelyne Pena RN Service Date: 09/11/23 Case Management General Note - Note Note: 09/11 Patient to d/c to [facility]. [address] [place] [address] [address] [place], [place] [address] - Letter Delivered Was Position Statement Letter Delivered?: Yes Entered by: Evelyne Pena RN on 09/11/231218 Report Signed by: Evelyne Pena RN on 09/11/23 1220 <<Signature on File>> <Electronically signed by Evelyne Pena RN> Co-Signed by: on [facility] Work Phone: [phone]) 733-383510-19-2023 Progress note Author Evelyne Pena [facility] September 11, 2023 12:20pm Note Date/Time September 11, 2023 1 2:20pm [facility] Case Management Patient: GEOVANNY MJEÍA. : 1970 [place] [address] Location: [phone] Unit #: [id number] Case Management General Note Evelyne Pena RN Service Date: 09/11/23 Case Management General Note - Note Note: 09/11 Patient to d/c to [facility]. [address] [place] [address] [address] [place], [place] [address] - Letter Delivered Was Position Statement Letter Delivered?: Yes Entered by: Evelyne Pena RN on 09/11/231218 Report Signed by: Evelyne Pena RN on 09/11/23 1220 <<Signature on File>> <Electronically signed by Evelyne Pena RN> Co-Signed by: on [facility] Work Phone: 1(462) 362-713910-19-2023 Progress note Author Craig Rodriguez [facility] September 11, 2023 10:47am Note Date/Time September 11, 2023 1 0:47am [facility] Medical Records Patient: GEOVANNY MEJÍA. : 1970 [place] [address] Location: [phone] Unit #: [id number] Progress Note - Hospitalist Craig Rodriguez DO [...] positive for MSSA. 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 No nausea or vomiting, no fever [...] Craig Rodriguez DO> Report Signed by: on [facility] Work Phone: [phone]) 825-908710-19-2023 Progress note Author Craig Rodriguez [facility] September 11, 2023 10:47am Note Date/Time September 11, 2023 1 0:47am [facility] Medical Records Patient: GEOVANNY MEJÍA [address] : 1970 [place], [place] [address] Location: [address] [place] [address] Unit #: [id number] Progress Note - Hospitalist Craig Rodriguez DO Service Dt/Tm: 09/11/23 104 Assessment/Plan Assessment/Plan (1) Retroperitoneal abscess: Status: Acute Code(s): K68.19 - Other retroperitoneal abscess Plan: Left sided RP abscess on CT measuring 4.7 X2.6X 4.5 cm. on IV fluids and IV cefazolin IR placed abdominal abscess drain, purulent fluid draining from abscess. Blood cultures and abscess cultures are positive for MSSA. 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 No nausea or vomiting, no fever [...] L RDW 16.1 H Plt Count 180 10/19/23 04:58 Sodium 132 L Potassium 3.7 Chloride [...] Craig Rodriguez DO> Report Signed by: on [facility] Work Phone: 1(315) 505-793410-18-2023 Progress note Author Evelyne Pena [facility] September 10, 2023 3:12pm Note Date/Time September 10, 2023 9 :23am [facility] Case Management Patient: GEOVANNY MEJÍA. : 1970 [place], [place] [address] Location: [address] [place] [address] Unit #: [id number] Case Management Daily Note Evelyne Pena RN Service Date: 09/10/23 Case Mgmt Daily Note - Plan of Care Controls Technician Agrees with Attending and Consult Plan: Yes - Patient Preferences & Goals What is the patient's preference?: Services to be Determined Recommended acute discharge goals: Services to be Determined - Hospital Stay Days Day 1 Comment: 09/08 Met with patient in the room. Patient is from [place]. She is up here to visit her sister. Patient reporting she is normally independent. Doesnot have a PCP. Patient would like to use [facility] OP Pharm for meds. Planning to have her cousin pick her up at d/c. Contact is her cousin Ursula. Denies having LW/dPOA. Controls Technician: Evelyne Pena RN Day 2 Comment: 09/09 Met with patient in the room. Patient asking to get up and move around. PT/OT to eval. S/p L ABD drain placement. Patient agreeable to [facility] for drain mgmt if needed. Reporting she will be going to [facility] at d/c to staywith her cousin Ursula. spoke with patients cousin Ursula via telephone who reports she is ok with [facility] coming to her home if patient would go there at d/c. Ursula reporting patient was homeless in [place] and recently move to [place] with [employer]. Controls Technician: Evelyne Pena, RN Day 3 Comment: 09/10 D/c needs pending medical course. Jr mullen. Dilaudid MATERIALS AND PROCESSES MANAGER. PT/OT. ID c/s. Therapy recs for IPR vs OP PT. Will follow to assist with d/c needs. Controls Technician: Evelyne Pena RN - Transportation Mode of Transportation: Private [...] by Evelyne Pena RN> Co-Signed by: on [facility] Work Phone: 1(728) 391-545010-18-2023 Progress note Author Evelyne Pena [facility] September 10, 2023 3:12pm Note Date/Time September 10, 2023 9 :23am [facility] Case Management Patient: GEOVANNY MEJÍA [address] : 1970 [place], [place] [address] Location: [phone] Unit #: [id number] [facility] [id number] Case Management Daily Note Evelyne Pena RN Service Date: 09/10/23 Case Mgmt Daily Note - Plan of Care Controls Technician Agrees with Attending and Consult Plan: Yes - Patient Preferences & Goals What is the patient's preference?: Services to be Determined Recommended acute discharge goals: Services to be Determined - Hospital Stay Days Day 1 Comment: 09/08 Met with patient in the room. Patient is from [place]. She is up here to visit her sister. Patient reporting she is normally independent. Doesnot have a PCP. Patient would like to use [facility] OP Pharm for meds. Planning to have her cousin pick her up at d/c. Contact is her cousin Ursula. Denies having LW/dPOA. Controls Technician: Evelyne Pena, RN Day 2 Comment: 09/09 Met with patient in the room. Patient asking to get up and move around. PT/OT to [facility]. S/p L ABD drain placement. Patient agreeable to [facility] for drain mgmt if needed. Reporting she will be going to [facility] at d/c to staywith her cousin Ursula. spoke with patients cousin Ursula via telephone who reports she is ok with [facility] coming to her home if patient would go there at d/c. Ursula reporting patient was homeless in [place] and recently move to [place] with [employer]. Controls Technician: Evelyne Pena, RN Day 3 Comment: 09/10 D/c needs pending medical course. Jr present. Dilaudid MATERIALS AND PROCESSES MANAGER. PT/OT. ID c/s. Therapy recs for IPR vs OP PT. Will follow to assist with d/c needs. Controls Technician: Evelyne Pena, RN - Transportation Mode of [...] by Evelyne Pena RN> Co-Signed by: on [facility] Work Phone: 1([phone]) 558-868210-18-2023 Progress note Author Craig Rodriguez [facility] September 10, 2023 12:40pm Note Date/Time September 10, 2023 1 2:33pm [facility] Medical Records Patient: GEOVANNY MEJÍA. : 1970 [place] [address] Location: [address] [place] [address] Unit #: [id number] Progress Note - Hospitalist Craig Rodriguez DO [...] positive for MSSA. Patient is on Dilaudid MATERIALS AND PROCESSES MANAGER due to her significant pain Vitals stable. [...] examined. She is currently on a dilaudid MATERIALS AND PROCESSES MANAGER pump and still having significant abdominal pain. [...] the EMR. 09/10/23 08:00 CT Abd/Pelvis W/Contrast 66655 Routine Microbiology: Microbiology 09/08/23 18:20 Blood,Venous Blood [...] Craig Rodriguez DO> Report Signed by: on [facility] Work Phone: [phone]) 502-731310-18-2023 Progress note Author Craig Rodriguez [facility] September 10, 2023 12:40pm Note Date/Time September 10, 2023 1 2:33pm [facility] Medical Records Patient: GEOVANNY MEJÍA. : 1970 [place], [place] [address] Location: [phone] Unit #: [id number] Progress Note - Hospitalist Craig Rodriguez DO [...] positive for MSSA. Patient is on Dilaudid MATERIALS AND PROCESSES MANAGER due to her significant pain Vitals stable. [...] examined. She is currently on a dilaudid MATERIALS AND PROCESSES MANAGER pump and still having significant abdominal pain. [...] the EMR. 09/10/23 08:00 CT Abd/Pelvis W/Contrast 72007 Routine Microbiology: Microbiology 09/08/23 18:20 Blood,Venous Blood [...] Craig Rodriguez DO> Report Signed by: on [facility] Work Phone: [phone]) [phone] Progress note Author Evelyne Pena [facility] September 09, 2023 3:46pm Note Date/Time September 08, 2023 1 :56pm [facility] Case Management Patient: GEOVANNY MEJÍA. : 1970 [place], [place] [address] Location: [address] [place] [address] Unit #: [id number] Case Management Admission Evelyne Pena RN Service Date: 09/08/23 Case Mgmt Admission/Disch Plan - Patient Preferences & Goals What is the patient's preference?: Services to be Determined Recommended acute discharge goals: Services to be Determined - Hospital Stay Day Day 1 Comment: 09/08 Met with patient in the room. Patient is from [place]. She is up here to visit her sister. Patient reporting she is normally independent. Doesnot have a PCP. Patient would like to use [facility] OP Pharm for meds. Planning to have her cousin pick her up at d/c. Contact is her cousin Ursula. Denies having LW/dPOA. Controls Technician: Evelyne Pena, RN - Demographics Current Diagnosis(s): Intra abdominal abscess Information Given by: Patient Primary Insurance: [employer] [facility] Family/Caregiver Contact: Ursula Relationship: cousinjeimy Does the patient have VA services?: No Does the patient have a [facility] provider?: No - Readmission Information Was the patient readmitted within the past 30 days?: No Where was the patient admitted from?: Home Does Patient have any Services in Place?: No - Healthcare Decisions Code Status Per Patient Request (Full Code, DNRCC, DNRCCA): Full code Durable Power of Bottle Tester for Health Care: Unknown [place] DNR Comfort Care: Unknown State [facility] DNR Comfort Care Arrest: Unknown - Mental Status Prior Mental Status: Alert and Oriented Current Mental Status: Alert and Oriented - Living Situation Home Situation: Lives Alone Home Type: Single Family Home Levels: 1 Stairs: Yes Does the patient drive?: Yes - Support System Support System: Friends - Skilled Days Has patient been in a jail facility in past 60 days: No - [...] If Yes to either question, notify Manager Ems.: No - Discharge Plan Discharge Plan Discussed [...] Entered by: Evelyne Pena RN on 09/08/23 4824 Report Signed by: Evelyne Pena RN on 09/09/23 4656 <<Signature on File>> <Electronically signed by Evelyne Pena RN> Co-Signed by: on [facility] Work Phone: [phone]) 102-884810-17-2023 Progress note Author Evelyne Pena [facility] September 09, 2023 3:46pm Note Date/Time September 08, 2023 1 :59pm [facility] Case Management Patient: GEOVANNY MEJÍA. : 1970 [place] [id number] Location: [phone] Unit #: [id number] Social Determinants Evelyne Pena RN Service Date: [...] by Evelyne Pena RN> Co-Signed by: on [facility] Work Phone: [phone] Progress note Author Evelyne Pena [facility] September 09, 2023 3:46pm Note Date/Time September 09, 2023 1 1:00am [facility] Case Management Patient: GEOVANNY MEJÍA. : 1970 [place] [address] Location: [phone] Unit #: [id number] Case Management Daily Note Evelyne Pena RN Service Date: 09/09/23 Case Mgmt Daily Note - Plan of Care Controls Technician Agrees with Attending and Consult Plan: Yes - Patient Preferences & Goals What is the patient's preference?: Services to be Determined Recommended acute discharge goals: Services to be Determined - Hospital Stay Days Day 1 Comment: 09/08 Met with patient in the room. Patient is from [place]. She is up here to visit her sister. Patient reporting she is normally independent. Doesnot have a PCP. Patient would like to use [facility] OP Pharm for meds. Planning to have her cousin pick her up at d/c. Contact is her cousin Ursula. Denies having LW/dPOA. Controls Technician: Evelyne Pena RN Day 2 Comment: 09/09 Met with patient in the room. Patient asking to get up and move around. PT/OT to [facility]. S/p L ABD drain placement. Patient agreeable to [facility] for drain mgmt if needed. Reporting she will be going to [facility] at d/c to staywith her cousin Ursula. spoke with patients cousin Ursula via telephone who reports she is ok with [facility] coming to her home if patient would go there at d/c. Ursula reporting patient was homeless in [place] and recently move to [place] with [employer]. Controls Technician: Evelyne Pena, RN - Transportation Mode of [...] Entered by: Evelyne Pena RN on 09/09/23 2304 Report Signed by: Evelyne Pena RN on 09/09/23 7910 <<Signature on File>> <Electronically signed by Evelyne Pena RN> Co-Signed by: on [facility] Work Phone: [phone]) 556-661310-17-2023 Progress note Author Evelyne Pena [facility] September 09, 2023 3:46pm Note Date/Time September 08, 2023 1 :56pm [facility] Case Management Patient: GEOVANNY MEJÍA. : 1970 [place], [place] [address] Location: [phone] Unit #: [id number] Case Management Admission Evelyne Pena RN Service Date: 09/08/23 Case Mgmt Admission/Disch Plan - Patient Preferences & Goals What is the patient's preference?: Services to be Determined Recommended acute discharge goals: Services to be Determined - Hospital Stay Day Day 1 Comment: 09/08 Met with patient in the room. Patient is from [place]. She is up here to visit her sister. Patient reporting she is normally independent. Doesnot have a PCP. Patient would like to use [facility] OP Pharm for meds. Planning to have her cousin pick her up at d/c. Contact is her cousin Ursula. Denies having LW/dPOA. Controls Technician: Evelyne Pena, RN - Demographics Current Diagnosis(s): Intra abdominal abscess Information Given by: Patient Primary Insurance: [employer] [facility] Family/Caregiver Contact: Ursula Relationship: shankar Does the patient have VA services?: No Does the patient have a [facility] provider?: No - Readmission Information Was the patient readmitted within the past 30 days?: No Where was the patient admitted from?: Home Does Patient have any Services in Place?: No - Healthcare Decisions Code Status Per Patient Request (Full Code, DNRCC, DNRCCA): Full code Durable Power of Bottle Tester for Health Care: Unknown [place] DNR Comfort Care: Unknown [place] DNR Comfort Care Arrest: Unknown - Mental Status Prior Mental Status: Alert and Oriented Current Mental Status: Alert and Oriented - Living Situation Home Situation: Lives Alone Home Type: Single Family Home Levels: 1 Stairs: Yes Does the patient drive?: Yes - Support System Support System: Friends - Skilled Days Has patient been in a jail facility in past 60 days: No - [...] If Yes to either question, notify Manager Ems.: No - Discharge Plan Discharge Plan Discussed [...] Entered by: Evelyne Pena RN on 09/08/23 135 Report Signed by: Evelyne Pena RN on 09/09/23 1544 <<Signature on File>> <Electronically signed by Evelyne Pena RN> Co-Signed by: on [facility] Work Phone: [phone]) 398-727510-17-2023 Progress note Author Evelyne Pena [facility] September 09, 2023 3:46pm Note Date/Time September 08, 2023 1 :59pm [facility] Case Management Patient: GEOVANNY MEJÍA. : 1970 [place], [place] [address] Location: [phone] Unit #: [id number] Social Determinants Evelyne Pena RN Service Date: [...] Entered by: Evelyne Pena RN on 09/08/23 0674 Report Signed by: Evelyne Pena RN on 09/09/23 1546 <<Signature on File>> <Electronically signed by Evelyne Pena RN> Co-Signed by: on [facility] Work Phone: [phone]) 484-765510-17-2023 Progress note Author Evelyne Pena [facility] September 09, 2023 3:46pm Note Date/Time September 09, 2023 1 1:00am [facility] Case Management Patient: GEOVANNY MEJÍA. : 1970 [place], [place] [address] Location: [phone] Unit #: [id number] Case Management Daily Note Evelyne Pena RN Service Date: 09/09/23 Case Mgmt Daily Note - Plan of Care Controls Technician Agrees with Attending and Consult Plan: Yes - Patient Preferences & Goals What is the patient's preference?: Services to be Determined Recommended acute discharge goals: Services to be Determined - Hospital Stay Days Day 1 Comment: 09/08 Met with patient in the room. Patient is from [place]. She is up here to visit her sister. Patient reporting she is normally independent. Doesnot have a PCP. Patient would like to use [facility] OP Pharm for meds. Planning to have her cousin pick her up at d/c. Contact is her cousin Ursula. Denies having LW/dPOA. Controls Technician: Evelyne Pena, RN Day 2 Comment: 09/09 Met with patient in the room. Patient asking to get up and move around. PT/OT to eval. S/p L ABD drain placement. Patient agreeable to [facility] for drain mgmt if needed. Reporting she will be going to [facility] at d/c to staywith her cousin Ursula. CM spoke with patients cousin Ursula via telephone who reports she is ok with [facility] coming to her home if patient would go there at d/c. Ursula reporting patient was homeless in [place] and recently move to [place] with [employer]. Controls Technician: Evelyne Pena, RN - Transportation Mode of [...] by Evelyne Pena RN> Co-Signed by: on [facility] Work Phone: 1(180) 552-261010-17-2023 Progress note Author Craig Rodriguez [facility] September 09, 2023 12:41pm Note Date/Time September 09, 2023 1 0:53am [facility] Medical Records Patient: GEOVANNY MEJÍA. : 1970 [place], [place] [address] Location: [phone] Unit #: [id number] Progress Note - Hospitalist Craig Rodriguez DO [...] Craig Rodriguez DO> Report Signed by: on [facility] Work Phone: [phone]) 301-756310-17-2023 Progress note Author Craig Rodriguez [facility] September 09, 2023 12:41pm Note Date/Time September 09, 2023 1 0:53am [facility] Medical Records Patient: GEOVANNY MEJÍA. : 1970 [place], [place] [address] Location: [address] [place] [address] Unit #: [id number] Progress Note - Hospitalist Craig Rodriguez DO [...] Craig Rodriguez DO> Report Signed by: on [facility] Work Phone: [phone]) 976-630010-16-2023 Progress note Author Charity Adames [facility] September 08, 2023 7:13pm Note Date/Time September 08, 2023 5 :11pm [facility] Medical Records Patient: GEOVANNY MEJÍA. : 1970 [place], [place] [address] Location: [facility] [phone] Unit #: [id number] Pharmacy Daily Note Charity Adames PharmD Service Dt/Tm: 09/08/23 0645 Pharmacy - Patient Information Patient Information: Name: [...] by Charity Adames PharmD> Co-Signed by: on [facility] Work Phone: 1(740) 126-623810-16-2023 Progress note Author Charity Adames [facility] September 08, 2023 7:13pm Note Date/Time September 08, 2023 5 :11pm [facility] Medical Records Patient: GEOVANNY MEJÍA. : 1970 [place] [address] Location: [address] [place] [address] Unit #: [id number] Pharmacy Daily Note Charity Adames PharmD Service [...] 1707 Report Signed by: Charity Adames on 09/08/23 1913 <<Signature on File>> <Electronically signed by Charity Adames PharmD> Co-Signed by: on [facility] Work Phone: 1([phone]) 524-308610-16-2023 [facility] Medical Records Patient: GEOVANNY MEJÍA [address] : 1970 [place], [place] [address] Location: [phone] Unit #: [id number] IR Pre Procedure Note Freddy Guevara MD [...] 09/08/23 @ 14:51 by Bryant Epperson APRN, [employer]) Denies family history of No pertinent family [...] Report Signed by: Freddy Guevara MD on 09/08/23 1539 < > Report Signed by: [facility]10-16-2023 History and physical note Author Willy Lechuga [facility] September 08, 2023 2:48pm Note Date/Time September 08, 2023 1 :58pm [facility] Medical Records Patient: GEOVANNY MEJÍA. : 1970 [place], [place] [address] Location: [address] [place] [address] Unit #: [id number] [facility] Date [facility] Into Hospital: 09/08/23 Date of Service: 09/08/23 Time Seen: 13:54 Patient Information: Primary Care Provider: None Chief Complaint: INTRA ABDOMINAL ABCESS History Obtained From: Patient and EMR History of Present Illness: 53 old female with a past medical history of hypertension, no home medications on file, initially transferred from [facility] for possible intra-abdominal abscess. History and physical is limited due to no records available and patient was in pain at time of my clinical exam. As per EMR I did see that she had a left retroperitoneal fluid collection with moderate inflammation measuring4.7 X2.6X 4.5 cm with possible abscess formation. She was subsequently transferred to [facility] for general surgery consultation. On arrival as [...] (Updated 09/08/23 @ 14:48 by Willy Lechuga (ADELAIDA)MD) HTN (hypertension) Social History Smoking Status: Former [...] sciatica, rightside Plan: As above. [facility]: [facility]; None Dictated by: [facility]A on 09/08/23 1305 Entered by: [facility] Anika on 09/08/23 1357 Report Signed by: [facility] MD on 09/08/23 4917 <<Signature on File>> <Electronically signed by Willy Lechuga ([facility]) > Report Signed by: on [facility] Work Phone: 1([phone]) 339-655910-16-2023 [facility] History of Present illness Narrative* Aneta Valderrama MD - 08/28/2023 4:35 PM EDT Images from the original note were not included. Geovanny Mejía 1970 Impression/Plan: Problem List Items Addressed This Visit None Visit Diagnoses Spondylolisthesis of lumbar region - Primary Relevant Orders XR Lumbar Spine Standard with Flex/Ext 4+ Views Ambulatory Ref to [facility] (PT/OT/ST) Lumbar radiculopathy Relevant Orders XR Lumbar Spine Standard with Flex/Ext 4+ Views Ambulatory Ref to [facility] (PT/OT/ST) Patient's presentation may be in keeping with possible lumbar radiculopathy or neurogenic claudication. She has not optimized nonoperative care at this time, therefore referred her for 6 weeks of physical therapy and have given a home exercise program. Patient notes having had a recent MRI back in [place] approximately June 2023. My team will arrange [...] lower extremity symptoms. Patient is visiting from [place] and is staying with her sister in [place]. She was seen at [facility] ED on 08/06/2023 for back pain and [...] Patient has had previous neck surgery in [facility] approximately 10 to 11 years ago per [...] Reported as This note was generated by [employer] voice recognition software and as a result, grammatical or spelling errors may occur using this program. Aneta Valderrama MD Spine Surgery [facility] * Aura Patterson MA - 08/28/2023 3:30 PM EDT Review of Systems Constitutional: Positive for activity change. Musculoskeletal: Positive for back pain. Psychiatric/Behavioral: The patient is nervous/anxious. All other systems reviewed and are negative. * Lindsay Liu PA-C - 08/28/2023 3:10 PM EDT . documented in this [id number] Instructions* Patient Instructions* Aneta Valderrama MD - [...] include stationary bicycling, outdoor bicycling, an elliptical campus ambassador, or swimming. Swimming is often the best [...] front of you at the same time. Quvr-us-psada exercise Lie on your back with your [...] Log into your personal health record on [email or web address] and enter Z938 in the Education box to learn more about Low Back Pain: Exercises. Current as of: April 14, 2015 Content Version: 10.6 0769-1157 [employer]. Care instructions adapted under license by your healthcare professional. If you have questions about a medical condition or this instruction, always ask your healthcare professional. [employer] disclaims any warranty or liability for your use of this information. [facility]* Diagnosis Spondylolisthesis of lumbar region- Primary Lumbar radiculopathy Thoracic or lumbosacral neuritis or radiculitis, unspecified [facility] Diagnosis Onset Date Resolution Status Abscess in epidural space of thoracic spine acute Asthma acute Back pain acute Bacteremia acute Electrolyte imbalance acute HTN (hypertension) acute Hypocalcemia acute Hyponatremia acute Intra-abdominal abscess acut e Normocytic normochromic anemia acute Retroperitoneal abscess acut e Sciatica acute Severe protein-calorie malnutrition acute Spinal epidural abscess acut e Staphylococcus aureus infection acute Staphylococcus aureus septicemia acute [facility] Work Phone: Evaluation note* Diagnosis Bacteremia [facility] Diagnosis Methicillin susceptible Staphylococcus aureus infection as the cause of diseases classified elsewhere Methicillin susceptible Staphylococcus aureus infection as the cause of diseases classified elsewhere documented in this encounter [facility] Diagnosis Anxiety- Primary Anxiety state, [...] Narrative No data available for this section [facility] Additional Instructions Activity: As tolerated Diet: Nothing by [facility] Work Phone: Hospital Discharge instructions No data available for this section [facility] No data available for this section [facility] Reason for Referral Specialty Diagnoses / Procedures Referred By Contac t Referred To Contact Physical Therapy Diagnoses Spondylolisthesis of lumbar region Lumbar radiculopathy Aneta Valderrama MD [address] [place] [address] Rehab Facility - Other Referral ID Status Reason Start Date Expiration Date Visits Requested Visits Authorized [id number] Authorized Patient Preference 08/30/2023 08/29/2024 1 1 Specialty Diagnoses / Procedures Referred By Contac t Referred To Contact Diagnoses Bacteremia Procedures MRI SPINE CERVICAL WITH AND WITHOUT CONTRAST [place] MRI, CERV SPINE RALPHO Lori Fernando MD [address] [place] [address] Referral ID Status Reason Start Date Expiration Date V isits Requested Visits Authorized [id number] Pending Review 10/01/2023 10/25/2024 1 1 Summary Purpose Family History No Family History Records FoundNo Family History Records FoundNo Family History Records Found No data available for this section No Family History Records FoundNo Family History Records FoundNo Family History Records FoundNo Family History Records FoundNo Family History Records Found Advance Directives Advance Directive Response Recorded Date/ Time [place] DNR Comfort Care Unknown O ctober 2022 11:36am [facility] DNR Comfort Care Arrest Unknown September 11, 2023 11:36am Living Will Unknown September 11 11:36am Durable Power of Bottle Tester for Health Care Unknow n September 11, 2023 11:36am Advance Directive Response Recorded Date/ Time [facility] DNR Comfort Care Unknown O ctober 2022 10:36am [facility] DNR Comfort Care Arrest Unknown September 11, 2023 10:36am Living Will Unknown September 11 10:36am Durable Power of Bottle Tester for Health Care Unknow n September 11, 2023 10:36am Documents on File Type Date Recorded Patient Visual Merchandising Specialist Expl anation HealthCare Power of Bottle Tester 09/19/2023 2:50 PM Ricky [email or web address] Latest Code Status on File Code Status Date Activated Date Inactivated Comments Full Code 09/19/2023 11:55 AM Healthcare Agents on File Name Relationship Healthcare Agent Relationshi p Communication Zakiya [place] Child Health Care Agent Aiden Masterson Alternate Health Ca re Agent Healthcare Agents on File Name Relationship Healthcare Agent Relationshi p Communication Zakiya [place] Child Health Care Agent Aiden Masterson Alternate Health Ca re Agent Healthcare Agents on File Name Relationship Healthcare Agent Relationshi p Communication Zakiya [place] Child Health Care Agent Aiden Masterson Alternate Health Ca re Agent Chief Complaint and [...] p ain, ER with x-rays 08-06-23 @ [facility], [place] 10-12-22 @ [facility], [place], called and can not push thru, typed report under ecare. Specialty Diagnoses / Procedures Referred By Contac t Referred To Contact Diagnoses Bacteremia Procedures MRI SPINE LUMBAR WITH AND WITHOUT CONTRAST [place] MRI, LUMBAR SPINE Lori Frost MD [address] [place] [address] Referral ID Status Reason Start Date Expiration Date V isits Requested Visits Authorized [id number] Pending Review 10/01/2023 10/25/2024 1 1 Specialty Diagnoses / Procedures Referred By Contac t Referred To Contact Diagnoses Bacteremia Procedures MRI SPINE THORACIC WITH AND WITHOUT CONTRAST [place] MRI, DORSAL SPINE Lori Frost MD [address] [place] [address] Referral ID Status Reason Start Date Expiration Date V isits Requested Visits Authorized [id number] Pending Review 10/01/2023 10/25/2024 1 1 Specialty Diagnoses / Procedures Referred By Contac t Referred To Contact Diagnoses Bacteremia Procedures MRI SPINE CERVICAL WITH AND WITHOUT CONTRAST [place] MRI, CERV SPINE Lori Frost MD [address] [place] [address] Referral ID Status Reason Start Date Expiration Date V isits Requested Visits Authorized [id number] Pending Review 10/01/2023 10/25/2024 1 1 Specialty Diagnoses / Procedures Referred By Contac t Referred To Contact Diagnoses Methicillin susceptible Staphylococcus aureus infection as the cause of diseases classified elsewhere Methicillin susceptible Staphylococcus aureus infection as the cause of diseases classified elsewhere [B95.61] Procedures OK REMOVAL TUNNELED CV CATH REMOVAL CVC TUNNELED Jaron Adan MD [address] [place] [address] [facility] [address] [place] [address] Referral ID Status Reason Start Date Expiration Date Visits Re quested Visits Authorized [id number] 1 1 Care Teams (unrecognized sec tion and content) Computer Systems Manager Relationship Specialty Start Date End Date System, Provider Not In PCP - General 08/06/23 Team Status: Active Member Role Status Dates Physician None Primary Care Provider Active Team Status: Inactive Member Role Status Dates Physician None Primary Care Provider, Other Provider A ctive David Elena MD Admit Provider Active Jaret Ramírez (ID) , Other Provider Active Alec Clemons MD Other Provider Active Troy Garber MD Attending Provider Active Valeriy Cantu Jr, DO Other Provider Active Computer Systems Manager Relationship Specialty Start Date End Date Aneta Valderrama MD [address] [place] [address] Orthopaedic Surgery 09/19/23 Conor Fenton RPh,PharmD Pharmacist Infectious Disease 10/02/23 11/21/23 Computer Systems Manager Relationship Specialty Start Date End Date Aneta Valderrama MD [address] [facility] [place] [address] Orthopaedic Surgery 09/19/23 Conor Fenton RPh,PharmD Pharmacist Infectious Disease 10/02/23 11/21/23 Computer Systems Manager Relationship Specialty Start Date End Date Aneta Valderrama MD [address] [facility] [place] [address] Orthopaedic Surgery 09/19/23 Computer Systems Manager Relationship Specialty Start Date End Date Ni Ochoa DO [address] [place] [address] Referring Physician Neurology 03/10/24 Computer Systems Manager Relationship Specialty Start Date End Date Ni Ochoa DO [address] [place] [phone] Referring Physician Neurology 03/10/24 Computer Systems Manager Relationship Specialty Start Date End Date Ni Ochoa DO [address] [place] [phone] Referring Physician Neurology 03/10/24 Computer Systems Manager Relationship Specialty Start Date End Date Ni Ochoa DO [address] [place] [phone] Referring Physician Neurology 03/10/24 Computer Systems Manager Relationship Specialty Start Date End Date Ni Ochoa DO [address] [phone] Referring Physician Neurology 03/10/24 Computer Systems Manager Relationship Specialty Start Date End Date Ni Ochoa DO [address] [place] [phone] Referring Physician Neurology 03/10/24 Computer Systems Manager Relationship Specialty Start Date End Date Ni Ochoa DO [address] [place] [phone] Referring Physician Neurology 03/10/24 Computer Systems Manager Relationship Specialty Start Date End Date Ni Ochoa DO [address] [place] [phone] Referring Physician Neurology 03/10/24 Computer Systems Manager Relationship Specialty Start Date End Date Ni Ochoa DO [address] [place] [phone] Referring Physician Neurology 03/10/24 Computer Systems Manager Relationship Specialty Start Date End Date Ni Ochoa DO [address] [place] [address] Referring Physician Neurology 03/10/24 Computer Systems Manager Relationship Specialty Start Date End Date Ni Ochoa DO [address] [place] [address] [phone] Referring Physician Neurology 03/10/24 Computer Systems Manager Relationship Specialty Start Date End Date Demetri Liu MD [address] [place] [address] PCP - ACO Reach 12/31/24 Ni Ochoa DO [address] [place] [address] [phone] Referring Physician Neurology 03/10/24 INFORMATION SOURCE (unrecogn ized section and content) DATE CREATED AUTHOR 09/01/2023 [facility] DATE CREATED AUTHOR AUTHOR'S ORGANIZ ATION 10/06/2023 [facility] DATE CREATED AUTHOR AUTHOR'S ORGANIZ ATION 10/25/2023 [facility] DATE CREATED AUTHOR AUTHOR'S ORGANIZ ATION 03/26/2024 [facility] DATE CREATED AUTHOR AUTHOR'S ORGANIZ ATION 04/17/2024 [facility] DATE CREATED AUTHOR AUTHOR'S ORGANIZ ATION 05/06/2024 [facility] DATE CREATED AUTHOR AUTHOR'S ORGANIZ ATION 09/02/2024 [facility] DATE CREATED AUTHOR AUTHOR'S ORGANIZ ATION 10/15/2024 [facility] PRN Active and Recently Administ ered Medications [...] BE BASED ON THE PRIMARY CLINICAL RECORDS. [employer] provides no warranty or guarantee of the accuracy or completeness of information in this document.
== END 2025-02-07 07:40 | disposition home or self-care (01) ==
LOC: EC 07:39
PROVIDERS: PCP Family Medicine; Visit Provider Orthopaedic Surgery
DX: S82.391D Other fracture of lower end of right tibia, subsequent encounter for closed fracture with routine healing (principal); S82.831D Other fracture of upper and lower end of right fibula, subsequent encounter for closed fracture with routine healing
CPT/HCPCS: 73590

== ENCOUNTER 2025-08-26 08:53 | Outpatient (OUT) | payer MEDICARE, MEDICAID, SELFPAY ==
--- OUTSIDE RECORDS SUMMARY | 2025-02-07 05:00 | XMS_ITS ---
Author Organization [facility] Address [address] [place] [address] Care Team Providers Care [employer] Professional Name Role Phone Selvin Crane [facility] [phone] REASON FOR VISIT RIGHT PROXIMAL FIBULA FX, POST MALL. FX Encounters Encounter Location Date Provider Diagnosis [facility] [address] [facility] [place] [address] 02/07/2025 Selvin Crane Plan Of Treatment No Information Progress Notes * GEOVANNY MEJÍADOB: [birth year] (55 yo F)Acc No.[id number]:02/07/2025 Patient: Ton GEOVANNY JOSHI Provider: Chip Crane MD :1970 A ge:54 Y S ex:Female Date:02/07/2025 Address:[address] [place], [place] [id number] Subjective: * Chief Complaints: * 1 . RIGHT PROXIMAL FIBULA FX, POST MALL. FX. * Medical History: Objective: * Vitals: Assessment: Plan: * Treatment: Forms: * Images: * Electronic signature of Justus Crane MD on 08/26/2025 at 08:58 AM EDT Sign off status: Pending * Provider: Chip Crane MD Date: 0 02/07/2025 Generated for Jordon ramon/Grace/eTransmitting on: 1 08:58 AM EDT
--- OUTSIDE RECORDS SUMMARY | 2025-08-26 08:58 | XMS_ITS | Patient Health Record ---
Author Organization [facility] Address [address] [place] [address] Care Team Providers Care Computing Services Director Name Role Phone Selvin Crane Unavailable [phone] Brittanie Varghese Unavailable [phone] DylanLizzettele Unavailable Results Component Value Reference Range Notes SCC- TIB/FIB RIGHT [id number] Reviewed date:01/21/2025 11:47:07 AM Interpretation: Performing Lab: Notes/Report: PT Reviewed date:01/21/2025 11:46:59 AM Interpretation: Performing Lab: Notes/Report: SCC- TIB/FIB RIGHT [id number] Reviewed date:01/20/2025 12:37:23 PM Interpretation: Performing Lab: Notes/Report: SCC- TIB/FIB RIGHT [id number] Reviewed date:01/26/2025 08:33:32 AM Interpretation: Performing Lab: Notes/Report: SCC- TIB/FIB RIGHT 38816 Reviewed date:12/07/2024 03:44:21 PM Interpretation: Performing Lab: Notes/Report: SCC- TIB/FIB RIGHT 37510 Reviewed date:02/10/2025 03:57:34 PM Interpretation: Performing Lab: Notes/Report: Reason For Referral No Information Social History Tobacco Use: Social History Observation Description Date Details (start date - stop date) Never Smoker NA - NA Tobacco Control (Standard) Question Answer Notes Tobacco use: Nonsmoker Problems Problem Type SNOMED Code ICD Code Onset Dates Problem Status W/U Status Risk Notes Problem 512717212 Swelling of right knee joint (M25.461) Active confirmed Problem 675356724 Other fracture of lower end of right tibia, subsequent encounter for closed fracture with routine healing (S82.391D) Active confirmed Problem 429223085 Other fracture of upper and lower end of right fibula, subsequent encounter for closed fracture with routine healing (S82.831D) Active confirmed Problem 9351731141 Acute pain of right knee (M25.561) Active confirmed Problem 04822741 Other closed fracture of proximal end of right fibula, initial encounter (S82.831A) Active confirmed Problem 271881007 Closed fracture of posterior malleolus of right tibia, initial encounter (S82.391A) Active confirmed Vital Signs Height 5'4 in 09/27/2024 Weight 165 lbs 09/27/2024 BMI 28.32 09/27/2024 Encounters Encounter Location Date Provider Diagnosis [facility] [address] [place] [address] 09/27/2024 Brittanie Varghese Other closed fracture of proximal end of right fibula, initial encounter S82.831A and Closed fracture of posterior malleolus of right tibia, initial encounter S82.391A [facility] [facility] [address] [place] [address] 10/13/2024 Brittanie Halima Other fracture of lower end of right tibia, subsequent encounter for closed fracture with routine healing S82.391D and Other fracture of upper and lower end of right fibula, subsequent encounter for closed fracture with routine healing S82.831D [facility] Office [facility] [place] [address] [place] [address] 11/08/2024 [facility] Other fracture of upper and lower end of right fibula, subsequent encounter for closed fracture with routine healing S82.831D and Other fracture of lower end of right tibia, subsequent encounter for closed fracture with routine healing S82.391D [facility] Office [address] [facility] [place] [address] [place] [address] 12/06/2024 Milena [facility] Other fracture of lower end of right tibia, subsequent encounter for closed fracture with routine healing S82.391D and Other fracture of upper and lower end of right fibula, subsequent encounter for closed fracture with routine healing S82.831D [facility] Office [address] [facility] [place] [address] [place] [address] 02/07/2025 Milena [facility] Other fracture of lower end of right tibia, subsequent encounter for closed fracture with routine healing S82.391D and Other fracture of upper and lower end of right fibula, subsequent encounter for closed fracture with routine healing S82.831D [facility] Office [address] [place] [address] [place] [address] 07/11/2025 Brittanie Mooreb Swelling of right knee joint M25.461 and Acute pain of right knee M25.561 Assessments Encounter Date Diagnosis (ICD Code) Assessment Notes Treatment Notes Treatment Clinical Notes Section Notes 09/27/2024 Other closed fracture of proximal end of right fibula, initial encounter (ICD-10 - S82.831A) 09/27/2024 Closed fracture of posterior malleolus of right tibia, initial encounter (ICD-10 - S82.391A) 10/13/2024 Other fracture of lower end of right tibia, subsequent encounter for closed fracture with routine healing (ICD-10 - S82.391D) 10/13/2024 Other fracture of upper and lower end of right fibula, subsequent encounter for closed fracture with routine healing (ICD-10 - S82.831D) 11/08/2024 Other fracture of lower end of right tibia, subsequent encounter for closed fracture with routine healing (ICD-10 - S82.391D) 11/08/2024 Other fracture of upper and lower end of right fibula, subsequent encounter for closed fracture with routine healing (ICD-10 - S82.831D) 12/06/2024 Other fracture of lower end of right tibia, subsequent encounter for closed fracture with routine healing (ICD-10 - S82.391D) 12/06/2024 Other fracture of upper and lower end of right fibula, subsequent encounter for closed fracture with routine healing (ICD-10 - S82.831D) 02/07/2025 Other fracture of lower end of right tibia, subsequent encounter for closed fracture with routine healing (ICD-10 - S82.391D) 02/07/2025 Other fracture of upper and lower end of right fibula, subsequent encounter for closed fracture with routine healing (ICD-10 - S82.831D) 07/11/2025 Swelling of right knee joint (ICD-10 - M25.461) 07/11/2025 Acute pain of right knee (ICD-10 - M25.561) 09/27/2024 Other After removing her splint I applied a short leg fiberglass cast with instructions to this clean dry and intact. Advised against any weightbearing through the right lower extremity. I recommended elevation. We will see her back in 1 week to repeat x-rays and reassess her progress. Plan has been agreed upon by my supervising physician, [MD Rodrick. 10/13/2024 Other She will stay immobilized in the cast and avoid any weightbearing. We will see her back in a month to remove the cast and repeat x-rays. Plan has been agreed upon by my supervising physician, Dr. Rosa Maria MD. 11/08/2024 Other Today we will discontinue her short leg cast and I have ordered a tall walking boot. She can bear weight as tolerated in the boot for transfers. She is still working with physical therapy and can start to work on range of motion of the ankle. Will have her follow-up in 4 weeks to repeat x-rays and reassess her progress. 12/06/2024 Other Patient is jamal robbins and has been working with physical therapy at the rehabilitation center and is walking again after her injury and pain is controlled. She can start to wean out of the boot with ambulation over the next few weeks with physical therapy. We will see her back in 2 months for reevaluation and to repeat x-rays. 02/07/2025 Other Patient continu es to progress with her strength with ambulation at the rehabilitation center. She is doing much better at this time and has no complaints of pain. Her goal is to get back home to [place]. We can see her back on an as-needed basis. 07/11/2025 Other At this point, we discussed treatment options and alternatives with the patient. We will reach out to her infectious disease physician and determine if a corticosteroid injection to her knee is recommended. In the meantime she may ice and applied diclofenac gel. Plan Of Treatment Pending Test Test Name Order Date SCC- KNEE 2VIEW RIGHT [id number] 07/11/2025 Insurance Providers Payer Name Payer Address Payer Phone Subscriber Number Group Number Insured Name Patient Relationship to Insured Coverage Start Date Coverage [place] [address] [place] [address] [phone] [id number] GEOVANNY MEJÍA Self - patient is the insured [facility] [address] [place] [address] [id number] GEOVANNY MEJÍA Self - patient is the insured
--- OUTSIDE RECORDS SUMMARY | 2025-08-26 08:59 | XMS_ITS | Clinical Summary ---
Author Organization [facility] Address [id number] [address] [place] [address] Care Team Providers Care Ethanol Quality Leader Name Role Phone Demetri Liu MD Primary Care Provider [phone] Allergies No known active allergies Medications acetaminophen (TYLENOL) 325 mg tablet Take 2 tablets (650 mg total) by mouth every 6 (six) hours as needed for pain. Active bisacodyL (DULCOLAX) 10 mg suppository Insert 1 suppository (10 mg total) into the rectum in the morning. Active cholecalciferol , vitamin D3, 2,000 units tablet Take by mouth daily. Active doxycycline (DORYX) 100 MG EC tablet Take 1 tablet (100 mg total) by mouth in the morning. For osteomyelitis. Active escitalopram (LEXAPRO) 20 mg tablet Take 1 tablet (20 mg total) by mouth in the morning. Active gabapentin (NEURONTIN) 300 mg capsule Take 1 capsule (300 mg total) by mouth in the morning and at bedtime. Active gabapentin (NEURONTIN) 400 mg capsule Take 1 capsule (400 mg total) by mouth in the morning and at bedtime. Active lidocaine (ASPERCREME, LIDOCAINE,) 4 % Place 1 patch on the skin daily. Active melatonin 10 mg tablet Take 3 mg by mouth nightly. Active methocarbamoL (ROBAXIN) 500 mg tablet Take 2 tablets (1,000 mg total) by mouth in the morning and 2 tablets (1,000 mg total) at noon and 2 tablets (1,000 mg total) in the evening and 2 tablets (1,000 mg total) before bedtime. Active oxacillin sodium (OXACILLIN INJ) Inject as directed. 12 gram IV every 24 hours for osteomyelitis until 11/21/23, run over 24 hours Active oxyCODONE (OxyCONTIN) 10 mg 12 hr tablet Take 15 mg by mouth every 4 (four) hours as needed. Max Daily Amount: 90 mg Active pantoprazole (PROTONIX) 40 mg EC tablet Take 1 tablet (40 mg total) by mouth in the morning. Active ALPRAZolam (XANAX) 0.5 mg tablet Take 1 tablet (0.5 mg total) by mouth 3 (three) times a day as needed for anxiety. Active Social History Tobacco Use Types Packs/Day Years Used Date Smoking Tobacco: Every Day Cigarettes Smokeless Tobacco: Never Alcohol Use Standard Drinks/Week Comments Not Currently 0 (1 standard drink = 0.6 oz pur e alcohol) Hunger Screening Answer Date Recorded Within the past 12 months we worried whether our food would run out before we got money to buy more. Never True 11/15/2023 Within the past 12 months th e food we bought just didn't last and we didn't have money to get more. Never True 11/15/2023 Comments Unknown Sex and Gender Information Value Date Recorded Sex Assigned at Not on file Legal Sex Female 2:18 PM EST Gender Identity Not on file Sexual Orientation Not on file Last Filed Vital Signs Vital Sign Reading Time Taken Comments Blood Pressure 128/72 11/15/2023 9:02 AM EST Pulse 69 11/15/2023 9:02 AM EST Temperature 36.9 C (98.4 F) 11/15/2023 5:02 AM EST Respiratory Rate 18 11/15/2023 9:02 AM EST Oxygen Saturation 94% 11/15/2023 9:02 AM EST Inhaled Oxygen Concentration - - Weight 81.2 kg (179 lb) 11/15/2023 5:02 AM EST Height 162.6 cm (5' 4 ) 11/15/2023 5:02 AM EST Body Mass Index 30.73 11/15/2023 5:02 AM EST Plan of Treatment Health Maintenance Due Date Last Done Comments Depression Screening 1981 Pap Smear 1990 Zoster (Shingles) Vaccine (1 of 2) 2019 DTaP,Tdap and Td Vaccines (2 - Td or Tdap) 11/07/2024 11/07/2014 Adult BMI Screening 11/15/2024 11/15/2023 Tobacco Screening 11/15/2024 11/15/2023 Influenza Vaccine 07/25/2025 Medical Devices Not on file Insurance MEDICARE MEDICAID [place] Care Teams Ethanol Quality Leader Relationship Specialty Start Date End Date [place] [address] [place] [address] PCP - General Family Medicine 11/15/23
--- OUTSIDE RECORDS SUMMARY | 2025-08-26 08:59 | XMS_ITS | Clinical Summary ---
Author Organization [facility] Address [address], [address] [place] [address] Care Team Providers Care Motion Picture Printer Name Role Phone Demetri Liu MD Primary Care Provider [phone] Medications fentaNYL (DURAGESIC) 75 MCG/HR Place 1 patch onto the skin every 72 hours. 5 Active COMBIVENT RESPIMAT 20-100 MCG/ACT AERS inhaler Inhale 2 puffs into the lungs every 6 hours as needed for Shortness of Breath (N/A) 5 Active furosemide (LASIX) 20 MG tablet Take 1 tablet by mouth daily 5 Active escitalopram (LEXAPRO) 10 MG tablet Take 1 tablet by mouth daily 5 Active ALPRAZolam (XANAX) 0.5 MG tablet Take 1 tablet by mouth 3 times daily as needed for Anxiety. 5 Active alendronate (FOSAMAX) 70 MG tablet Take 1 tablet by mouth every 7 days 5 Active gabapentin (NEURONTIN) 600 MG tablet Take 1 tablet by mouth daily. 5 Active methocarbamol (ROBAXIN) 500 MG tablet Take 1 tablet by mouth in the morning and 1 tablet in the evening. 5 Active oxyCODONE (ROXICODONE) 5 MG immediate release tablet Take 1 tablet by mouth every 8 hours as needed for Pain. 5 Active PARoxetine (PAXIL) 20 MG tablet Take 1 tablet by mouth every morning 5 Active tiZANidine (ZANAFLEX) 4 MG tablet Take 1 tablet by mouth every 6 hours as needed (N/A) 5 Active pantoprazole (PROTONIX) 40 MG tablet Take 1 tablet by mouth daily 5 Active doxycycline hyclate (VIBRAMYCIN) 100 MG capsule Take 1 capsule by mouth daily 5 Active Social History Tobacco Use Types Packs/Day Years Used Date Smoking Tobacco: Never Assessed Comments Unknown Sex and Gender Information Value Date Recorded Sex Assigned at Not on file Legal Sex Female 2:14 PM EDT Gender Identity Not on file Sexual Orientation Not on file Plan of Treatment Health Maintenance Due Date Last Done Comments Depression Screen 1981 HIV screen 1984 Hepatitis C screen 1987 DTaP/Tdap/Td vaccine (1 - Tdap) 1988 Hepatitis B vaccine (1 of 3 - 19+ 3-dose series) 1988 Pap smear 1990 Cervical cancer screen 1999 HPV (without or with Pap) 1999 Breast cancer screen 2009 Lipids 2009 Colonoscopy 2014 Colorectal Cancer Screen 2014 FIT/FOBT: Average risk 2014 Fecal-DNA (Cologuard): Average risk 2014 Sigmoidoscopy/CT colonography 2014 Pneumococcal 50+ years Vacci ne (1 of 1 - PCV) 2019 Shingles vaccine (1 of 2) 2019 Flu vaccine (#1) 06/24/2025 COVID-19 Vaccine (1 - 2023-2 5 season) 2025 Hepatitis A vaccine Aged Out No longe r eligible based on patient's age to complete this topic Hib vaccine Aged Out No longer eligi ble based on patient's age to complete this topic Meningococcal (ACWY) vaccine Aged Out No longer eligible based on patient's age to complete this topic Meningococcal B vaccine Aged Out No l onger eligible based on patient's age to complete this topic Polio vaccine Aged Out No longer elig ible based on patient's age to complete this topic Care Teams Motion Picture Printer Relationship Specialty Start Date End Date Demetri Liu MD [address] [place] [id number] PCP - General Family Medicine 04/14/25
--- OUTSIDE RECORDS SUMMARY | 2025-08-26 08:59 | XMS_ITS | Clinical Summary ---
Author Organization [facility] Address [address] [place] [address] Care Team Providers Care Business Librarian Name Role Phone Demetri Liu MD Primary Care Provider [phone] Ud Saulo Gallego MD Unavailable [phone] Allergies Active Allergy Reactions Criticality Noted Date Comments Guaifenesin Other 06/30/2025 Levofloxacin 12/11/2023 Blisters Medications oxyCODONE-acetam inophen (Percocet) 10-325 mg tablet Take 1 tablet by mouth. 3 Active nabumetone (Relafen) 500 mg tablet TAKE 1 TABLET (500 MG TOTAL) BY MOUTH TWICE A DAY 3 Active naloxone (Narcan) 4 mg/0.1 mL nasal spray SPRAY 1 SPRAY INTO 1 NOSTRIL FOR KNOWN OR SUSPECTED OPIOD OVERDOSE, MAY REPEAT IN 2-3 MIN IF WORSENS 3 Active acetaminophen (Tylenol) 325 mg tablet Take 650 mg by mouth every 4 (four) hours if needed for mild pain (1-3 pain score). Active bisacodyl (Dulcolax, bisacodyl,) 10 mg suppository Insert 10 mg into the rectum if needed each day for constipation. Active cholecalciferol (Vitamin D-3) 25 MCG (1000 UT) capsule Take 25 mcg by mouth in the morning. Active escitalopram (Lexapro) 20 mg tablet Take 20 mg by mouth in the morning. Active gabapentin (Neurontin) 400 mg capsule Take 400 mg by mouth in the morning and at bedtime. Active lidocaine adhesive patch,medicated patch Apply 1 patch topically in the morning. Active melatonin 3 mg tablet Take by mouth. Activ e polyethylene glycol (Miralax) 17 gram/dose powder Take 17 g by mouth in the morning. Active omega-3 acid ethyl esters (Lovaza) 1 gram capsule Take 1 g by mouth in the morning and at bedtime. Active pantoprazole (ProtoNix) 40 mg EC tablet Take 40 mg by mouth before breakfast. Do not crush, chew, or split. Active ALPRAZolam (Xanax) 1 mg tablet Take 1 mg by mouth if needed in the morning, at noon, and at bedtime for anxiety. Active albuterol 90 mcg/actuation inhaler Inhale 1-2 puffs every 6 (six) hours if needed. 3 Active tiotropium (Spiriva) [address] 18 mcg into inhaler and inhale in the morning. Active nitroglycerin (Nitrostat) 0.[address] 0.4 mg under the tongue every 5 (five) minutes if needed. Active benzonatate (Tessalon) 200 mg capsule Take 200 mg by mouth if needed in the morning, at noon, and at bedtime. 3 Active furosemide (Lasix) 20 mg tablet Take 20 mg by mouth if needed each day. Active cyclobenzaprine (Flexeril) 5 mg tablet Take 5 mg by mouth if needed in the morning, at noon, and at bedtime. 3 Active methocarbamol (Robaxin) 500 mg tablet Take 500 mg by mouth in the morning, at noon, in the evening, and at bedtime. 4 Active ammonium lactate (Lac-Hydrin) 12 % lotion rub in to affected area well 3 Active oxyCODONE (Roxicodone) 10 mg immediate release tablet Take 15 mg by mouth if needed in the morning, at noon, in the evening, and at bedtime. 3 Active baclofen (Lioresal) 5 mg tablet Take 5 mg by mouth in the morning, at noon, and at bedtime. Active ipratropium-albu teroL (Combivent Respimat) 20-100 mcg/actuation inhaler Inhale 1 puff in the morning, noon, at afternoon, at bedtime,. Active ferrous sulfate 325 (65 Fe) MG tablet Take 65 mg by mouth with breakfast. Active diclofenac sodium 1 % kit Apply topically. Active ondansetron (Zofran) 4 mg tablet Take 4 mg by mouth every 8 (eight) hours if needed for nausea or vomiting. Active gabapentin (Neurontin) 600 mg tablet Take 600 mg by mouth three times daily. Active PARoxetine (Paxil) 20 mg tablet Take 20 mg by mouth in the morning. 4 Active docusate sodium (Colace) 100 mg capsule Take 100 mg by mouth in the morning and at bedtime. Active tiZANidine (Zanaflex) 2 mg capsule Take 2 mg by mouth three times daily. Active topiramate 50 mg tablet Take 50 mg by mouth two times daily. 4 Active ALPRAZolam (Xanax) 0.25 mg tablet Take 0.25 mg by mouth if needed for anxiety. Active ALPRAZolam (Xanax) 0.5 mg tablet Take 0.5 mg by mouth two times daily. Morning and evening PRN anxiety Active dextran 70-hypromellose (Bion Tears) 0.1-0.3 % ophthalmic solution Administer 1 drop into both eyes two times daily. Active calcium carbonate-vitami n D3 (Calcium 600 + D,3,) 600 mg-5 mcg (200 unit) capsule Take by mouth in the morning. Active cholecalciferol (Vitamin D-3) 25 MCG (1000 UT) capsule Take 50 mcg by mouth in the morning. Active clotrimazole (Lotrimin) 1 % cream Apply topically every 12 (twelve) hours if needed (Foot/toes). Active doxycycline (Vibra-Tabs) 100 mg tablet Take 100 mg by mouth two times daily. Take with a full glass of water and do not lie down for at least 30 minutes after. Active fentaNYL (Duragesic) 75 mcg/hr Place 1 patch on the skin every 3rd (third) day. Active alendronate (Fosamax) 70 mg tablet Take 70 mg by mouth every 7 (seven) days. Take in the morning with a full glass of water, on an empty stomach, and do not take anything else by mouth or lie down for the next 30 min. Active psyllium (Metamucil) 3.4 gram packet Take 1 packet by mouth in the morning. Active oxyCODONE (Oxy-IR) 5 mg immediate release capsule Take 5 mg by mouth every 8 (eight) hours if needed for severe pain (8-10 pain score). Active cetirizine (ZyrTEC) 10 mg tablet Take 10 mg by mouth in the morning. Active Active Problems Problem Noted Date Diagnosed Date Iron deficiency anemia due to chronic blood loss 06/30/2025 Acid reflux 2024 History of endocarditis 2024 Osteomyelitis 2024 DDD (degenerative disc disease), cervical 2023 DDD (degenerative disc disease), lumbosacral 11/2023 Myelomalacia 03/24/2024 Neuropathic pain 03/24/2024 Polyneuropathy 03/24/2024 Spinal stenosis of other region 01/21/2024 01/21/2024 Microcytic anemia 12/11/2023 12/11/2023 Anxiety 12/11/2023 12/11/2023 Backache symptom 12/11/2023 12/11/2023 Arthritis 12/11/2023 12/11/2023 Asthma 12/11/2023 12/11/2023 Bronchitis, acute 12/11/2023 12/11/2023 Cervicalgia 12/11/2023 12/11/2023 Concussion without loss of consciousness 024 12/11/2023 Dysrhythmia, cardiac 12/11/2023 12/11/2023 Dysuria 12/11/2023 12/11/2023 Edema 12/11/2023 12/11/2023 Encounter for screening mamm ogram for malignant neoplasm of breast 12/11/2023 12/11/2023 Fall from steps 12/11/2023 12/11/2023 Ecchymosis 12/11/2023 12/11/2023 Hyperkalemia 12/11/2023 12/11/2023 Hyperlipidemia 12/11/2023 12/11/2023 Hypertension, essential, benign 12/11/2023 12/11/2023 Meralgia paresthetica 12/11/2023 12/11/2023 Migraine 12/11/2023 12/11/2023 Muscle cramp 12/11/2023 12/11/2023 Otitis media, serous, acute 12/11/202311/24 Partial thickness rotator cuff tear 12/11/2023 12/11/2023 Rash 12/11/2023 12/11/2023 Scabies 12/11/2023 12/11/2023 Skin sensation disturbance 12/11/202312/11 Tachycardia 12/11/2023 12/11/2023 Methicillin susceptible Stap hylococcus aureus infection as the cause of diseases classified elsewhere 10/06/2023 01/21/2024 Spinal cord compression 10/06/2023 01/21/20 24 Inflammation of sacroiliac joint 12/02/2022 12/11/2023 Vaginal laceration, initial encounter 11/27/2022 01/21/2024 Pain in thoracic spine 01/16/2017 4 Obese 08/31/2015 01/21/2024 Dyslipidemia 08/05/2014 01/21/2024 Overview (01/21/2024): Last Assessment & Plan: Will check lipids on atorvastatin. Obstructive sleep apnea 05/06/2014 01/21/20 24 Overview (01/21/2024): CPAP Last Assessment & Plan: Mrs. García is doing well with treatment. She will be seen in CPAP clinic today. We will assist her with needed replacement supplies and mask. I have requested a DL. She can follow up on a yearly basis. She is to call for any sleep related problems. Tobacco use disorder 05/06/2014 01/21/2024 Overview (01/21/2024): Last Assessment & Plan: Encouraged and discussed stopping smoking . Encounters Date Type Department Care Team Description 07/06[facility]2025 [facility] [address] [place] [address] Jenifer Cuba RN 07/01/2025 Orders Only [facility] Infusion [address] [place] [phone] Loreto Rodriguez RN 07/01/2025 Results Follow-Up [facility] Oncology [facility] [address] [place] [phone] Saulo Diaz MD Iron and TIBC, Ferritin, Vitamin B12, Additional followed-up results: 2 06/30/2025 2:30 PM EDT Lab [facility] Draw Station [address] [place] [phone] Microcytic anemia; Abnormal laboratory test 06/30/2025 1:30 PM EDT Office Visit [facility] [address] [place] [phone] Saulo Diaz MD Microcytic anemia (Primary Dx); Abnormal laboratory test; Iron deficiency anemia due to chronic blood loss 06/15/2025 2:00 PM EDT Telemedicine [facility] Infectious Disease [address] [place] [phone] Shalom Smalls CNP Chronic osteomyelitis of cervical spine (CMS/HCC) (Primary Dx); Fixation hardware in spine; MSSA (methicillin susceptible Staphylococcus aureus) infection from Last 3 Months Immunizations Immunization Administration Dates Next Due Tdap 11/07/2014 Family History Medical History Relation Name Comments Cervical cancer Mother Heart failure Mother Pneumonia Mother Tongue cancer Other 1 aunt Prostate cancer Other 2 uncle Relation Name Status Comments Mother Other 1 aunt Other 2 uncle Alive Social History Tobacco Use Types Packs/Day Years Used Date Smoking Tobacco: Former Cigarettes Q uit: 2022 Smokeless Tobacco: Never Tobacco Cessation:Counseling Given: Yes Alcohol Use Standard Drinks/Week Comments Never 0 (1 standard drink = 0.6 oz pur e alcohol) [facility] Utilities Answer Date Recorded In the past 12 months has e electric, gas, oil, or water Warply threatened to shut off services in your home? No 12/17/2023 Humiliation, Afraid, Rape, and Kick questionnair e Answer Date Recorded Within the last year, have y ou been afraid of your partner or ex-partner? No 04/13/2025 Emotionally Abused Not on file 04/13/2025 Physically Abused Not on file 04/13/2025 Sexually Abused Not on file 04/13/2025 Overall Financial Resource Strain (CARDIA) Answe r Date Recorded How hard is it for you to pa y for the very basics like food, housing, medical care, and heating? Not hard at all 12/17/2023 PHQ-2 Answer Date Recorded Patient Health Questionnaire-2 Score 2 06/30/2025 Transportation Answer Date Recorded In the past 12 months, has l ack of transportation kept you from medical appointments or from getting medications? No 12/17/2023 Lack of Transportation (Non-Medical) Not on file 12/17/2023 Housing Stability Vital Sign Answer Daniel e Recorded Unable to Pay for Housing in the Last Year Not o n file 12/17/2023 Number of Places Lived in the Last Year Not on f ile 12/17/2023 In the last 12 months, was t here a time when you did not have a steady place to sleep or slept in a assisted (including now)? No 12/17/2023 Hunger Vital Sign Answer Date Recorded Within the past 12 months, y ou worried that your food would run out before you got the money to buy more. Never true 12/17/19 Ran Out of Food in the Last Year Not on file 12/17/2023 Comments No Sex and Gender Information Value Date Recorded Sex Assigned at Female 02/11/2024 2:28 PM EDT Legal Sex Female 7:46 AM EST Gender Identity Female 02/11/2024 2:28 PM EDT Sexual Orientation Heterosexual or Straight 01/23 2:28 PM EDT Last Filed Vital Signs Vital Sign Reading Time Taken Comments Blood Pressure 126/76 06/30/2025 1:14 PM EDT Pulse 62 06/30/2025 1:14 PM EDT Temperature 36.9 C (98.4 F) 06/30/2025 1:14 PM EDT Respiratory Rate - - Oxygen Saturation 98% 06/30/2025 1:14 PM EDT Inhaled Oxygen Concentration - - Weight 79.3 kg (174 lb 12.8 oz) 06/30/2025 1:14 PM EDT Height 162.6 cm (5' 4 ) 06/30/2025 1:14 PM EDT Body Mass Index 30 06/30/2025 1:14 PM EDT Plan of Treatment Upcoming Encounters Date Type Department Care Team (Late st Contact Info) Description 09/15/2025 9:00 AM EDT Follow-Up [facility] Orthopaedics Ortho Spine [address] [place] [address] Erick Simental MD [address] [place] [address] 12/29/2025 11:00 AM EST Follow-Up Anita [facility] Oncology Clinic [address] [place] [phone] Ud Saulo Gallego MD [address] [place] [address] Health Maintenance Due Date Last Done Comments CT Colonography 1969 Colonoscopy 1969 Colorectal Cancer Screening 1970 FIT-DNA 1970 FIT 1970 FOBT 1970 Medicare Annual Wellness (AWV) 1970 Sigmoidoscopy 1969 Hepatitis B Vaccines (1 of 3 - 19+ 3-dose series) 1988 Pneumococcal Vaccine: Pediat rics (0 to 5 Years) and At-Risk Patients (6 to 64 Years) (1 of 2 - PCV) 1988 Pap Smear 1990 Cervical Cancer Screening 1999 HPV/Cotest 1999 Mammogram 2009 Zoster Vaccines (1 of 2) 2019 Adult Tetanus 11/07/2024 11/07/2014 COVID-19 Vaccine ( - 2023-2 5 season) 2025 Influenza Vaccine (#1) 2025 Depression Screening 06/30/2026 06/30/2025 HIB Vaccines Aged Out No longer eligi ble based on patient's age to complete this topic HPV Vaccines Aged Out No longer eligi ble based on patient's age to complete this topic IPV Vaccines Aged Out No longer eligi ble based on patient's age to complete this topic Meningococcal B Vaccine Aged Out No l onger eligible based on patient's age to complete this topic Meningococcal Vaccine Aged Out No naz andrea eligible based on patient's age to complete this topic Rotavirus Vaccines Aged Out No longer eligible based on patient's age to complete this topic Procedures Procedure Name Priority Date/Time Associated Diagnosis Comments CBC WITH AUTO DIFFERENTIAL Routine 06/30/2025 5:27 PM EDT Microcytic anemia IGG, IGA, IGM Routine 06/30/2025 5:27 PM EDT Abnormal laboratory test FOLATE Routine 06/30/2025 5:27 PM EDT Microcytic anemia VITAMIN B12 Routine 06/30/2025 5:27 PM EDT Microcytic anemia CBC AND DIFFERENTIAL Routine 06/30/2025 5:27 PM EDT Microcytic anemia FERRITIN Routine 06/30/2025 5:27 PM EDT Microcytic anemia IRON AND TIBC Routine 06/30/2025 5:27 PM EDT Microcytic anemia from Last 3 Months Results * (ABNORMAL) CBC auto differential (06/30/2025 5:27 PM EDT) Auto WBC 5.76 4.00 - 10.60 10*3/uL 06/30/2025 5:38 PM EDT [facility] ([facility]) RBC 4.13 3.80 - 5.00 10*6/uL 06/30/2025 5:38 PM EDT [facility] ([facility]) Hemoglobin 11.9(L) 12.0 - 15.0 g/dL 06/30/2025 5:38 PM EDT [facility] ([facility]) Hematocrit 36.7 36.0 - 45.0 % 06/30/2025 5:38 PM EDT [facility] ([facility]) MCV 88.9 82.0 - 98.0 fL 06/30/2025 5:38 PM EDT [facility] ([facility]) MCH 28.8 27.0 - 33.0 pg 06/30/2025 5:38 PM EDT [facility] ([facility]) MCHC 32.4 32.0 - 35.0 g/dL 06/30/2025 5:38 PM EDT [facility] ([facility]) RDW 13.7 11.5 - 15.0 % 06/30/2025 5:38 PM EDT [facility] ([facility]) Neutrophils % 50.7 40.0 - 72.0 % 06/30/2025 5:38 PM EDT [facility] ([facility]) Lymphocytes % 38.0 20.0 - 45.0 % 06/30/2025 5:38 PM EDT [facility] ([facility]) Monocytes % 5.2 5.0 - 12.0 % 06/30/2025 5:38 PM EDT [facility] ([facility]) Eosinophils % 5.4 0.0 - 6.0 % 06/30/2025 5:38 PM EDT [facility] ([facility]) Basophils % 0.5 0.0 - 1.0 % 06/30/2025 5:38 PM EDT [facility] ([facility]) Neutrophils Absolute 2.92 1.60 - 7.60 10*3/uL 06/30/2025 5:38 PM EDT [facility] ([facility]) Lymphocytes Absolute 2.19 1.20 - 4.00 10*3/uL 06/30/2025 5:38 PM EDT [facility] ([facility]) Monocytes Absolute 0.30 0.10 - 1.00 10*3/uL 06/30/2025 5:38 PM EDT [facility] ([facility]) Eosinophils Absolute 0.31 0.00 - 0.50 10*3/uL 06/30/2025 5:38 PM EDT [facility] ([facility]) Basophils Absolute 0.03 0.00 - 0.20 10*3/uL 06/30/2025 5:38 PM EDT [facility] ([facility]) Platelets 209 150 - 400 10*3/uL 06/30/2025 5:38 PM EDT [facility] ([facility]) nRBC % 0.0 0 % 06/30/2025 5:38 PM EDT [facility]) Immature Granulocytes % 0.2 0.0 - 1.0 % 06/30/2025 5:38 PM EDT [facility] ([facility]) Immature Granulocytes Absolute 0.01 0.00 - 0.20 10*3/uL 06/30/2025 5:38 PM EDT [facility]) Blood Venous blood specimen / Unknown Venipuncture / Unknown 06/30/2025 5:27 PM EDT 06/30/2025 5:27 PM EDT us Saulo Gallego MD LAB BLOOD ORDERABLES Final Resu lt [facility]) [address] [place] [address] * (ABNORMAL) Iron and TIBC (06/30/2025 5:27 PM EDT) Iron 49(L) 50 - 212 ug/dL 06/30/2025 10:16 PM EDT [facility]) TIBC 267 250 - 450 ug/dL 06/30/2025 10:16 PM EDT [facility]) Iron Saturation 18(L) 20 - 50 % 10:16 PM EDT [facility]) UIBC 218.0 155.0 - 355.0 ug/dL 06/30/2025 10:16 PM EDT [facility]) Blood Venous blood specimen / Unknown Venipuncture / Unknown 06/30/2025 5:27 PM EDT 06/30/2025 5:27 PM EDT us Saulo Gallego MD LAB BLOOD ORDERABLES Final Resu lt [facility]) [address] [place] [address] * (ABNORMAL) IgG, IgA, IgM (06/30/2025 5:27 PM EDT) IgG 568.0(L) 610.3 - 1,616.0 mg/dL 07/01/2025 9:48 AM EDT [facility] ([facility]) Comment:Testing performed us ing a new methodology, turbidimetry. Normal ranges have been updated. Old normal range was 591-1540 mg/dL. IgA 125.0 84.5 - 499.0 mg/dL 07/01/2025 9:48 AM EDT [facility] ([facility]) Comment:Testing performed us ing a new methodology, turbidimetry. Normal ranges have been updated. Old normal range was 60-413 mg/dL (adult). IgM 67.0 35.0 - 242.0 mg/dL 07/01/2025 9:48 AM EDT [facility] ([facility]) Comment:Testing performed us ing a new methodology, turbidimetry. Normal ranges have been updated. Old normal range was 54-285 mg/dL. Blood Venous blood specimen / Unknown Venipuncture / Unknown 06/30/2025 5:27 PM EDT 06/30/2025 5:27 PM EDT Saulo Gallego MD LAB BLOOD ORDERABLES Final Resu lt Performing Organization Address City/[facility]/ZIP Co de Phone Number [facility]) [address] [place] [address] * Folate (06/30/2025 5:27 PM EDT) Folate 6.86 6.6 - 1,000 ng/mL 06/30/2025 10:17 PM EDT [facility] ([facility]) Blood Venous blood specimen / Unknown Venipuncture / Unknown 06/30/2025 5:27 PM EDT 06/30/2025 5:27 PM EDT Saulo Gallego MD LAB BLOOD ORDERABLES Final Resu lt Performing Organization Address City/[facility]/ZIP Co de Phone Number [facility]) [address] [place] [address] * Ferritin (06/30/2025 5:27 PM EDT) Ferritin 12.0 11.0 - 307.0 ng/mL 06/30/2025 10:16 PM EDT [facility] ([facility]) Blood Venous blood specimen / Unknown Venipuncture / Unknown 06/30/2025 5:27 PM EDT 06/30/2025 5:27 PM EDT Saulo Gallego MD LAB BLOOD ORDERABLES Final Resu lt [facility] ([facility]) [address] [place] [address] * Vitamin B12 (06/30/2025 5:27 PM EDT) Pathologist [facility] Vitamin B-12 249 180 - 914 pg/mL 06/30/2025 10:16 PM EDT [facility] ([facility]) Comment: REFERENCE RANGES: 180-914 pg/mL Normal 145-179 pg/mL Indeterminate <145 pg/mL Deficient Blood Venous blood specimen / Unknown Venipuncture / Unknown 06/30/2025 5:27 PM EDT 06/30/2025 5:27 PM EDT Saulo Gallego MD LAB BLOOD ORDERABLES Final Resu lt Performing Organization Address City/[facility]/ZIP Co de Phone Number [facility]) [address] [place], [place] [phone] from Last 3 Months Insurance MEDICARE [place]ICAID [place] Care Teams Business Librarian Relationship Specialty Start Date End Date Demetri Liu MD [address] [facility] [address] [place] [address] PCP - General Internal Medicine 02/18/24 Saulo Diaz MD [address] [place] [address] Consulting Physician Hematology and Oncology 06/30/25
--- NOTE | 2025-08-26 09:02 | MR_ITS ---
The [address] [address] Patient Name: GEOVANNY MEJÍA MRN: [id number] date: 1970 Sex: F Assigned Patient Location: MRI Current Patient Location: MRI Accession/Order Number: [id number] Exam Date: 08/26/2025 09:15 Report Date: 08/26/2025 15:41 At the request of: ELVIA BHATIA NP Procedure: MR lumbar spine wo/w con MR lumbar spine wo/w con 08/26/2025 10:14 AM SIGNS AND SYMPTOMS: ^Osteomyelitis of Vertebra, Thoracic and Cervical Region PROTOCOL: Multiplanar multisequence MR images of the lumbar spine without IV contrast CONTRAST: 16 mL of intravenous Dotarem COMPARISON: None. FINDINGS: There is 5 mm of anterolisthesis of L4 upon L5. The bones are otherwise in anatomic alignment. There is preservation of vertebral body heights. There is severe disc height loss at T9-T10 and T10-11. There is moderate disc height loss at L2-L3 with severe disc height loss at L3-L4. There is moderate disc height loss at L4-5. Schmorl's node formation is noted in the endplates at T11, T12, L1, and L2. The conus terminates at the superior endplate of the level. No epidural or paraspinous fluid collection is appreciated. There is a simple cyst in the right renal cortex requiring no further follow-up. At T12-L1: There is a broad-based disc bulge with facet hypertrophy. There is mild spinal canal narrowing with mild bilateral neural foraminal narrowing. At L1-L2: There is facet hypertrophy with ligamentum flavum thickening. There is mild spinal canal narrowing with mild bilateral neural foraminal narrowing. At L2-L3: There is a circumferential disc bulge with facet and ligamentum flavum thickening. There is moderate to severe spinal canal narrowing with moderate to severe bilateral neural foramina left greater than right. At L3-L4: There is a broad-based disc bulge with facet hypertrophy and ligamentum flavum thickening. There is moderate spinal canal stenosis with mild right and moderate left neural foraminal narrowing. At L4-L5: There is 5 mm of anterolisthesis of L4 upon L5. There is facet hypertrophy with a circumferential disc bulge contributing to moderate to severe bilateral neural foraminal narrowing left greater than right. There is moderate to severe spinal canal stenosis. There is bilateral facet hypertrophy left greater than right. There is a broad-based disc bulge. There is mild right and moderate left neural foraminal narrowing with mild spinal canal narrowing. At L5-S1: There is a normal disc, central canal, and neural foramen. MR/MR lumbar spine wo/w con IMPRESSION: At L4-L5: There is 5 mm of anterolisthesis of L4 upon L5. There is facet hypertrophy with a circumferential disc bulge contributing to moderate to severe bilateral neural foraminal narrowing left greater than right. There is moderate to severe spinal canal stenosis. There is bilateral facet hypertrophy left greater than right. There is a broad-based disc bulge. There is mild right and moderate left neural foraminal narrowing with mild spinal canal narrowing. At L2-L3: There is a circumferential disc bulge with facet and ligamentum flavum thickening. There is moderate to severe spinal canal narrowing with moderate to severe bilateral neural foramina left greater than right. At L3-L4: There is a broad-based disc bulge with facet hypertrophy and ligamentum flavum thickening. There is moderate spinal canal stenosis with mild right and moderate left neural foraminal narrowing. No abnormal postcontrast enhancement. Impression dictated by: Talib Campos M.D. 08/26/2025 3:41 PM Dictation Location: [place] [address] Electronically authenticated by: [id number] Y Date: 08/26/2025 15:41
--- OUTSIDE RECORDS SUMMARY | 2025-08-26 09:05 | XMS_ITS | CCD ---
Author Organization [facility] Care Team Providers Care Dice Spotter Name Role Phone System, Provider Not In Primary Care Provider Un available SYSTEM, PROVIDER NOT IN Primary Care Unavaila ble ANETA VALDERRAMA Attending Unavailable None, Physician Primary Care Provider None, Physician Other Provider MD David Elena Admit Provider [phone] Darrell (ID)MD Jaret Other Provider MD Alec Clemons Other Provider [phone] MD Troy Garber Attending Provider DO Valeriy Cantu Jr Other Provider SYSTEM, PROVIDER NOT IN Primary Care Unavaila JASVIR Lainez Attending Unavaila ble SYSTEM, PROVIDER NOT IN Primary Care Unavaila SHA Servin Attending Unavailable SYSTEM, PROVIDER NOT IN Primary Care Unavaila SHA Servin Attending Unavailable SYSTEM, PROVIDER NOT IN Primary Care Unavaila ble BEA GUNDERSON Attending Unavailab le None, Physician Primary Care Provider [phone] None, Physician Other Provider MD David Elena Admit Provider [phone] Darrell (ID)MD Jaret Other Provider [phone] MD Alec Clemons Other Provider [phone] MD Troy Garber Attending Provider [phone] DO Valeriy Cantu Jr Other Provider David Elena Admitting Unavailable Troy Garber Attending Unavailable None Primary Care Unavailable Alec Clemons Consulting Unavailable Valeriy Cantu Jr Consulting Unavailable None Consulting Unavailable Darrell (ID), Jaret Hayes Consulting Unavaila ble Aneta Valderrama MD Unavailable [phone] Eliana Francois [facility],PharmD, Conor Unavailable Unavailable SAQIB, RUGEN M Primary Care Physician NI OCHOA Attending Unavailable MD Zac Garrett Admitting Unavailable Fahad Brannon Attending Unavailable SAQIB, RUGEN M Referring Unavailable LORI FERNANDO Referring Unavailable LORI FERNANDO Attending Unavailable ANTIONETTE, JARON Admitting Unavailable ANTIONETTE JARON Attending Unavailable CONSULT, SURGERY - NEURO Consulting Unavail able PERCY HUFF Admitting Unavailable DAVID ELENA Referring Unavailable RAIZA JENNINGS Attending Unavailable RAJENDRA OLIVER Attending Unavailable RAJENDRA OLIVER Referring Unavailable Ni Ochoa DO Unavailable [phone] SAQIB, RUGEN M Referring Unavailable SAQIB, RUGEN [...] Primary Care Unavailable Demetri Liu MD Unavailable Ni Ochoa DO Unavailable Ni Ochoa DO Unavailable Ni Ochoa DO Unavailable [phone] ERICK SIMENTAL Attending Unavailable ERICK SIMENTAL Referring Unavailable REBECCA BEDOLLA Attending Unavailable PATEL BEYER Attending Unavailable ERICK SIMENTAL Attending Unavailable Ni Ochoa DO Attending Provider NON STAFF Primary Care Provider Unavailabl e Allergies Allergy Classification Reported Allergen(s) Allergy Type Date of Onset Reaction(s) Facility (1 source) No Known Medication Allergies; Translations: [No Known Medication Allergies] Propensity to adverse reactions (disorder) [facility] Repository (1 source) guaiFENesin; Translations: [GUAIFENESIN] Drug Allergy 5 [facility] Repository (1 source) levoFLOXacin; Translations: [LEVOFLOXACIN] Drug Allergy 4 [facility] Repository Medications Current Medications Medication Drug Class(es) Dates Sig (Normalized) Sig (Original) acetaminophen 650 mg oral tablet (20 sources) Start: 02-05-2024 take 650 mg by mouth every four hours as needed for pain acetaminophen 650 mg, Oral, q4hr, PRN as needed for pain, Refills(s) 0 Start Date: 02/05/24 Status: Ordered Start: 10-06-2023 take 2 tablets by mo ut every six hours as needed acetaminophen (Tylenol) 325 MG tablet Take 650 mg by mouth every 6 (six) hours if needed 10/06/2023 Active Start: 10-06-2023 take 3 tablets by mo uth every six hours Acetaminophen 325 MG tablet Take 3 tablets by mouth every 6 hours. 0 10/06/2023 Active [id number] 200 actuat albuterol 0.09 mg/actuat metered dose inhaler (20 sources) beta2-Adrenergic Agonist take 1-2 puff(s ) [...] mg oral tablet (20 sources) Benzodiazepine Start: 06-02-20 End: 09-30-20 take 0.25 mg by mouth once daily ALPRAZolam (Xanax) 0.5 MG tablet Indications: Anxiety Take 0.5 tablets (0.25 mg) by mouth Daily Take 0.25 mg in the afternoon daily 30 tablet 1 06/02/2025 09/30/2025 Active Start: 09-09-2024 End: 09-30-2025 take 1 tablet by mouth in the morning ALPRAZolam (Xanax) 0.5 MG tablet Indications: Anxiety Take 1 tablet (0.5 mg) by mouth in the morning and 1 tablet (0.5 mg) before bedtime. 60 tablet 3 06/02/2025 09/30/2025 Active Start: 09-09-2024 End: 01-16-2025 take 1 [...] and 4 mg before bedtime. 09/09/2024 Discontinued amoxicillin 500 mg oral capsule (1 source) Penicillin-class Antibacterial Start: 08-08-2025 take 1 capsule by mouth three times daily Amoxicillin 500 mg capsule Active 500 MG PO Three times daily August 08, 2025 12:00am Complies with drug therapy baclofen 20 mg oral tablet (20 sources) gamma-Aminobutyric Acid-ergic Agonist Start: 03-08-2024 take [...] Active docusate sodium 100 mg oral capsule (20 sources) take 1 capsule by mouth in the morning Docusate Sodium (DSS) 100 MG capsule Take 100 mg by mouth in the morning and 100 mg in the evening. Active doxycycline hyclate 100 mg oral capsule (20 sources) Tetracycline-c lass Drug Start: 08-08-2025 take 1 capsule by mouth twice daily Doxycycline Hyclate 100 mg capsule Active 100 MG PO Twice daily August 08, 2025 12:00am Complies with drug therapy Start: 02-05-2024 take 100 mg by mouth at bedtim e doxycycline 100 mg, Oral, Bedtime, Refills(s) 0 [...] transdermal system (20 sources) Opioid Agonist Start: 03-17-2025 End: 06-09-2025 fentaNYL (DURAGESIC) 75 MCG/HR Indications: Chronic pain syndrome Place 1 patch over 72 hours on the skin every 3rd (third) day 10 patch 05/10/2025 06/09/2025 Active Start: 01-19-2025 End: 03-13-2025 fentaNYL (DURAGESIC) 75 MCG/ HR Indications: Chronic pain syndrome Place 1 patch over 72 hours on the skin every 3rd (third) day 10 patch 02/11/2025 03/13/2025 Active Start: 11-25-2024 End: 01-14-2025 fentaNYL (DURAGESIC) [...] topical lotion (4 sources) Start: 10-01-2023 ammonium lactate 12 % Lotion lotion rub in to affected area well 0 10/01/2023 Active levoFLOXacin 500 mg oral tablet (1 source) Quinolone Antimicrobial Start: 08-08-2025 take 1 tablet by mouth once daily Levofloxacin 500 mg tablet Active 500 MG PO Daily August 08, 2025 12:00am Complies with drug therapy Lidocaine (20 sources) Antiarrhythmic, Amide Local Anesthetic [...] 10/01/2023 Active methocarbamol 500 mg oral tablet (20 sources) Muscle Relaxant Start: 01-17-2024 methocarbamol (Robaxin) 500 MG tablet Take 500 mg by mouth in the morning and 500 mg at noon and 500 mg in the evening and 500 mg before bedtime. 01/17/2024 Active naloxone hydrochloride 40 mg/ml nasal spray (20 sources) Opioid Antagonist Start: 09-18-2024 End: 09-18-2025 naloxone (Narcan) 4 mg/0.1 mL nasal spray Indications: Severe pain Administer 1 spray (4 mg) into affected nostril(s) if needed for opioid reversal May repeat every 2-3 minutes if needed, alternating nostrils, until medical assistance becomes available. 2 each 09/18/2024 09/18/2025 Active Start: 08-06-2023 naloxone (NARC AN) 4 mg/actuation [place] Administer 1 spray into one nostril for known or suspected opioid overdose. If patient worsens or does not respond, may repeat in 2-3 minutes. . 2 each 0 08/06/2023 Active [place]-3 oral capsule (1 source) Start: 02-05-2024 take 1 capsule by mouth once daily [place]-3 oral capsule See Instructions, Refill(s) 0, 1000mg oral daily Start Date: 02/05/24 Status: Ordered ondansetron 4 mg oral tablet (20 sources) Serotonin-3 Receptor Antagonist Start: 02-05-2024 take [...] oral tablet (20 sources) Opioid Agonist Start: 07-30-2025 End: 08-29-2025 take 1 tablet by mouth every eight hours for pain oxyCODONE (Roxicodone) 5 MG immediate release tablet Indications: Chronic pain syndrome Take 1 tablet (5 mg) by mouth every 8 (eight) hours if needed for severe pain 90 tablet 07/30/2025 08/29/2025 Active Start: 05-29-2025 End: 07-20-2025 take 1 tablet by mouth every eight hours for pain oxyCODONE (Roxicodone) 5 MG immediate release tablet Indications: Chronic pain syndrome Take 1 tablet (5 mg) by mouth every 8 (eight) hours if needed for severe pain 90 tablet 06/20/2025 07/20/2025 Active Start: 04-15-2025 End: 05-15-2025 take 1 tablet by mouth every eight hours for pain oxyCODONE (Roxicodone) 5 MG immediate release tablet Indications: Chronic pain syndrome Take 1 tablet (5 mg) by mouth every 8 (eight) hours if needed for severe pain 90 tablet 04/15/2025 05/15/2025 Active Start: 02-23-2025 End: 03-25-2025 take 1 tablet by mouth every eight hours for pain oxyCODONE (Roxicodone) 5 MG immediate release tablet Indications: Severe pain , Chronic pain syndrome Take 1 tablet (5 mg) by mouth every 8 (eight) hours if needed for severe pain 90 tablet 02/23/2025 03/25/2025 Active Start: 01-10-2025 End: 02-09-2025 take 1 tablet [...] pantoprazole 40 mg extended release oral tablet (20 sources) Proton Pump Inhibitor Start: 02-05-2024 take 40 mg by mouth once daily pantoprazole 40 mg, Oral, Daily, Refills(s) 0 Start Date: 02/05/24 Status: Ordered Start: 10-02-2023 take 1 tablet by devon th before mealtime pantoprazole (ProtoNix) 40 MG EC tablet Take 40 mg by mouth in the morning. Take before meals. 10/02/2023 Active PARoxetine hydrochloride 20 mg oral tablet (20 sources) Serotonin Reuptake Inhibitor Start: 02-09-2024 take [...] 10/02/2023 Active topiramate 50 mg oral tablet (20 sources) Start: 03-08-2024 topiramate 50 MG tablet 50 mg Daily 03/08/2024 Active vancomycin 1250 mg injection (1 source) Glycopeptide Antibacterial Start: 08-08-2025 take 1 g intravenously once daily Vancomycin 1.25 gram recon soln Active 1 GM IV Daily August 08, 2025 12:00am Complies with drug therapy Completed/Discontinued Medications Medication Drug Class(es) Dates Sig (Normalized) Sig (Original) diclofenac sodium 0.01 mg/mg topical gel (1 source) Nonsteroidal Anti-inflammatory Drug Start: 02-05-2024 Voltaren Gel 1% Gel 4 gm, Topical, Daily, Refill(s) 0 Start Date: 02/05/24 Status: Ordered Problems Active Problems Problem Classification Problem Date Documented Date Episodic/Chronic Acquired foot deformities (4 sources) Foot drop, right foot; Translations: [Foot drop, unspecified foot] Onset: 07-21-2024 Episodic Anxiety disorders (8 sources) Anxiety; Translations: [Anxiety disorder, unspecified] 02-05-2024 Chronic Asthma (4 sources) Asthma; Translations: [Unspecified asthma, uncomplicated] 09-13-2023 Chronic Deficiency and other anemia (2 sources) Normocytic normochromic anemia; Translations: [Anemia, unspecified] 09-13-2023 Episodic Deficiency and other anemia (2 sources) Anemia, unspecified; Translations: [Anemia, unspecified] 09-18-2023 Episodic Deficiency and other anemia (2 sources) Iron deficiency anemia, unspecified; Translations: [Iron deficiency anemia, unspecified] Onset: 06-30-2025 Episodic E Codes: Fall (2 sources) Fall Onset: 11-15-2023 Esophageal disorders (1 source) Gastroesophageal reflux disease 02-05-2024 Chronic Essential hypertension (4 sources) Hypertensive disorder; Translations: [Essential (primary) hypertension] 09-13-2023 Chronic Infective arthritis and osteomyelitis (except that caused by tuberculosis or sexually transmitted disease) (5 sources) Osteomyelitis; Translations: [Osteomyelitis of vertebra, site unspecified] Onset: 11-11-2023 02-05-2024 Chronic Nutritional deficiencies (4 [...] source) History of endocarditis 02-05-2024 Episodic Other RAMP MANAGER infection and poliomyelitis (10 sources) Epidural abscess; Translations: [Extradural and subdural abscess, unspecified] 09-13-2023 Episodic Other connective tissue disease (1 source) History of osteomyelitis; Translations: [Personal history of other diseases of the musculoskeletal system and connective tissue] 08-08-2025 Episodic Other nervous system disorders (2 sources) Other chronic pain; Translations: [Other chronic pain] Onset: 09-01-2023 Chronic Other nervous system disorders (4 sources) Spinal cord compression; Translations: [Unspecified cord compression] Onset: 10-06-2023 10-06-2023 Chronic Other nervous system disorders (20 sources) Myelomalacia; Translations: [Other specified diseases of spinal cord] Onset: 03-24-2024 03-24-2024 Chronic Other nervous system disorders (20 sources) Polyneuropathy; Translations: [Polyneuropathy, unspecified] Onset: 03-24-2024 03-24-2024 Chronic Other nervous system disorders (15 sources) Chronic pain syndrome; Translations: [Chronic pain syndrome] 09-29-2024 Chronic Other nutritional; endocrine; and metabolic disorders (2 sources) Hypocalcemia; Translations: [Hypocalcemia] 09-13-2023 Chronic Other nutritional; endocrine; and metabolic disorders (2 sources) Hypocalcemia; Translations: [Hypocalcemia] 09-18-2023 Chronic Other screening for suspected conditions (not mental disorders or infectious disease) (2 sources) Unspecified abnormal finding in specimens from other organs, systems and tissues; Translations: [Unspecified abnormal finding in specimens from other organs, systems and tissues] Onset: 06-30-2025 Episodic Peritonitis and intestinal abscess (10 sources) Abdominal abscess; Translations: [Peritoneal abscess] Onset: 09-07-2023 09-13-2023 Episodic Residual codes; unclassified (5 sources) Severe pain; Translations: [Pain, unspecified] 09-18-2024 Episodic Septicemia (except in labor) (4 sources) Bacteremia caused by Gram-positive bacteria; Translations: [Sepsis due to Methicillin susceptible Staphylococcus aureus] 09-10-2023 Episodic Spondylosis; intervertebral disc disorders; other back problems (20 sources) Sacroiliitis, not elsewhere classified; Translations: [Other intervertebral disc degeneration, lumbar region] Onset: 08-06-2023 Chronic Spondylosis; intervertebral disc disorders; other back problems (20 sources) Lumbar radiculopathy; Translations: [Radiculopathy, lumbar region] Onset: 08-06-2023 08-28-2023 Episodic Substance-related disorders (1 source) Smoker 02-05-2024 Chronic Comment on above: Added secondary to d ocumentation in Social History. Unclassified (1 source) M86.9 - Osteomyelitis, unspecified,G62.9 - Polyneuropathy, unspecified,M53.9 - Dorsopathy, unspecified Past or Other Problems Problem Classification Problem [...] 10-06-2023 09-13-2023 Episodic Other connective tissue disease (20 sources) Neuropathic pain; Translations: [Neuralgia and neuritis, unspecified] Onset: 03-24-2024 03-24-2024 Episodic Other infections; including parasitic (2 sources) Unspecified infectious disease; Translations: [Unspecified infectious disease] Onset: 09-18-2023 Episodic Unclassified (4 sources) Onset: 10-06-2023 10-06-2023 Results Test Name Value Interpretation Reference Range Facility Orders Onlyon 07-01-2025 Orders Only [id number] Geovanny Mejía 1970 F Date Provider Department Center 07/01/2025 DIONICIO YANG INF DCC Family History Problem Relation Age of Onset Pneumonia Mother Heart failure Mother Cervical cancer Mother Tongue cancer Other Prostate cancer Other Family Status - Relation Status Age at Mother Other Other Alive Normal [facility] CBC WITH AUTO DIFFERENTIALon 06-30-2025 Basophils (Bld) [#/Vol] 0.03 10*3/uL Normal 0.00-0.20 [facility] Comment on above: Performed By: #### L [id number] ####[facility] ([facility])[address] [place] [address] Basophils/100 WBC (Bld) 0.5 % Normal 0.0-1.0 [facility] Comment on above: Performed By: #### L [id number] ####[facility] ([facility])[address] [place] [address] Eosinophils (Bld) [#/Vol] 0.31 10*3/uL Normal 0.00-0.50 [facility] Comment on above: Performed By: #### L [id number] ####[facility] ([facility])[address] [place] [address] Eosinophils/100 WBC (Bld) 5.4 % Normal 0.0-6.0 [facility] Comment on above: Performed By: #### L [id number] ####[facility] ([facility])[address] [place] [address] Erythrocyte distribution width (RBC) [Ratio] 13.7 % Normal 11.5-15.0 [facility] Comment on above: Performed By: #### L [id number] ####[facility] ([facility])[address] [place] [address] ERYTHROCYTE MEAN CORPUSCULAR HEMOGLOBIN CONCENTRATION (G/DL) BY AUTOMATED 32.4 g/dL Normal 32.0-35.0 [facility] Comment on above: Performed By: #### L [id number] ####[facility] ([facility])[address] [place] [address] Hematocrit (Bld) [Volume fraction] 36.7 % Normal 36.0-45.0 [facility] Comment on above: Performed By: #### L [id number] ####[facility] ([facility])[address] [place] [address] Hemoglobin (Bld) [Mass/Vol] 11.9 g/dL Low 12.0-15.0 [facility] Comment on above: Performed By: #### L [id number] ####[facility] ([facility])[address] [place] [address] Immature granulocytes (Bld) [#/Vol] 0.01 10*3/uL Normal 0.00-0.20 [facility] Comment on above: Performed By: #### L [id number] ####[facility] ([facility])[address] [place] [address] Immature granulocytes/100 WBC (Bld) 0.2 % Normal 0.0-1.0 [facility] Comment on above: Performed By: #### L [id number] ####[facility] ([facility])[address] [place] [address] Lymphocytes (Bld) [#/Vol] 2.19 10*3/uL Normal 1.20-4.00 [facility] Comment on above: Performed By: #### L [id number] ####[facility] ([facility])[address] [place] [address] Lymphocytes/100 WBC (Bld) 38.0 % Normal 20.0-45.0 [facility] Comment on above: Performed By: #### L [id number] ####[facility] ([facility])[address] [place] [address] MCH (RBC) [Entitic mass] 28.8 pg Normal 27.0-33.0 [facility] Comment on above: Performed By: #### L [id number] ####[facility] ([facility])[address] [place] [address] MCV (RBC) [Entitic vol] 88.9 fL Normal 82.0-98.0 [facility] Comment on above: Performed By: #### L [id number] ####[facility] ([facility])[address] [place] [address] Monocytes (Bld) [#/Vol] 0.30 10*3/uL Normal 0.10-1.00 [facility] Comment on above: Performed By: #### L [id number] ####[facility] ([facility])[address] [place] [address] Monocytes/100 WBC (Bld) 5.2 % Normal 5.0-12.0 [facility] Comment on above: Performed By: #### L [id number] ####[facility] ([facility])[address] [place] [address] Neutrophils (Bld) [#/Vol] 2.92 10*3/uL Normal 1.60-7.60 [facility] Comment on above: Performed By: #### L [id number] ####[facility] ([facility])[address] [place] [address] Neutrophils/100 WBC (Bld) 50.7 % Normal 40.0-72.0 [facility] Comment on above: Performed By: #### L [id number] ####[facility] ([facility])[address] [place] [address] NRBC (PER 100 WBCS) BY AUTOMATED COUNT 0.0 % Normal 0 [facility] Comment on above: Performed By: #### L [id number] ####[facility] ([facility])[address] [place] [address] PLATELETS (10*3/UL) IN BLOOD AUTOMATED COUNT 209 10*3/uL Normal 150-400 [facility] Comment on above: Performed By: #### L [id number] ####[facility] ([facility])[address] [place] [address] RBC (Bld) [#/Vol] 4.13 10*6/uL Normal 3.80-5.00 [facility] Comment on above: Performed By: #### L [id number] ####[facility] ([facility])[address] [place] [address] WBC (Bld) [#/Vol] 5.76 10*3/uL Normal 4.00-10.60 [facility] Comment on above: Performed By: #### L [id number] ####[facility] ([facility])[address] [place] [address] FERRITINon 06-30-2025 FERRITIN (NG/ML) IN SER/PLAS 12.0 ng/mL Normal 11.0-307.0 [facility] Comment on above: Performed By: #### L [id number] #### [facility] ([facility]) [address] [place] [address] FOLATEon 06-30-2025 FOLATE (NG/ML) IN SER/PLAS 6.86 ng/mL Normal 6.6-1000 [facility] Comment on above: Performed By: #### L [id number] #### [facility] ([facility]) [address] [place] [address] IRON AND TIBCon 06-30-2025 IRON (UG/DL) IN SER/PLAS 49 ug/dL Low 50-212 [facility] Comment on above: Performed By: #### L [id number] #### [facility] ([facility]) [address] [place] [address] IRON BINDING CAPACITY (UG/DL) IN SER/PLAS 267 ug/dL Normal 250-450 [facility] Comment on above: Performed By: #### L [id number] #### [facility] ([facility]) [address] [place] [address] IRON BINDING CAPACITY.UNSATURATED (UG/DL) IN SER/PLAS 218.0 ug/dL Normal 155.0-355.0 [facility] Comment on above: Performed By: #### L [id number] #### [facility] ([facility]) [address] [place] [address] IRON SATURATION (%) IN SER/PLAS 18 % Low 20-50 [facility] Comment on above: Performed By: #### L [id number] #### [facility] ([facility]) [address] [place] [address] Labon 06-30-2025 Lab [id number] Geovanny Mejía 1970 Provider Department Center 06/30/2025 [facility] RESOURCE DCC DRAW DCC Family History Problem Relation Age of Onset Pneumonia Mother Heart failure Mother Cervical cancer Mother Tongue cancer Other Prostate cancer Other Family Status - Relation Status Age at Mother Other Other Alive Normal [facility] VITAMIN B12on 06-30-2025 Cobalamin (Vitamin B12) [Mass/Vol] 249 pg/mL Normal 180-914 [facility] Comment on above: Result Comment: REFE RENCE RANGES: 180-914 pg/mL Normal 145-179 pg/mL Indeterminate <145 pg/mL Deficient Performed By: #### L [id number] ####[facility] ([facility])[address] [place] [address] Telemedicineon 06-15-2025 Telemedicine [id number] Geovanny Mejía 1970 Provider Department Center 06/15/2025 161-PATEL BEYER [facility] INF Carlo Heal Family History Family history unknown: Yes Level of Service:62718 MA OFFICE/OUTPATIENT ESTABLISHED LOW MDM 20 MIN (GT) Normal [facility] Office Visiton 04-13-2025 Follow-up visit [id number] Geovanny Mejía 1970 Provider Department Center 04/13/2025 266-ERICK SIMENTAL [facility] Family History Family history unknown: Yes Level of Service:71859 MA OFFICE/OUTPATIENT ESTABLISHED LOW MDM 20 MIN (GC) Reason for Visit and Comments: Follow-up [906653] Normal [facility] DEXA SCAN CENTRAL SKELETALon 10-13-2024 DEXA SCAN [...] Escamilla MD on 10/13/2024 6:44 PM Normal [facility] 36on 08-31-2024 [facility] center called and needs note from 07/21 amended for the pre-cert on AFO brace. The note needs to state: -AFO brace for foot drop. - Brace needed to help patient with daily activities, (due to fall risk.) -Length of time the brace is needed.... 6months, 1yr, lifetime. -Has to be electronic signed. Please fax revised note to [phone] They are unable to move forward with brace without this in note. Normal [facility] Follow-Upon 07-21-2024 Follow-Up [id number] Geovanny Mejía 1970 F Date Provider Department Center 07/21/2024 266-ERICK SIMENTAL MP ORTHO [facility] Family History Family history unknown: Yes Level of Service:52717 MA OFFICE/OUTPATIENT ESTABLISHED LOW [facility] 20 MIN () Reason for Visit and Comments: Pain [136] - Neck pain also Follow-up [188669] - Neck pain also Normal [facility] Consent for Treatmenton 01-22 Consent for Treatment [id number] 030 [id number]# 1.00TIFF Normal [facility] [facility] Consultation Noteon 02-05-20 Consultation Note Patient [...] with any questions or concerns that arise. Normal [facility] Comment on above: Result Comment: Elec tronically Signed By: Fahad Brannon DO\.br\Date and Time Signed: 02/05/24 10:29 EDT HIPAA Forms Officeon 024 HIPAA Forms Office [id number]#1.0 0TIFF Normal [facility] Legal Correspondence Officeo n 02-05-2024 Legal Correspondence Office [id number]#1.0 0TIFF Normal [facility] Legal Correspondence Office [id number]#1.0 0TIFF Normal [facility] Office/Clinic Note-Physician on 02-05-2024 Office/Clinic Note-Physician [id number]#1.0 0TIFF Normal [facility] Patient Correspondenceon Patient Correspondence [id number]#1.0 0TIFF Normal [facility] Patient Correspondence [id number]#1.0 0TIFF Normal [facility] Patient Correspondence [id number]#1.0 0TIFF Normal [facility] Patient Correspondence [id number]#1.0 0TIFF Normal [facility] Patient Correspondence [id number]#1.0 0TIFF Normal [facility] Patient Correspondence [id number]#1.0 0TIFF Normal [facility] Patient History Officeon Patient History Office [id number]#1.0 0TIFF Normal [facility] CT LUMBAR SPINE WO CONTon CT LUMBAR [...] Jensen MD on 12/26/2023 11:04 AM Normal [facility] CT THORACIC SPINE WO CONTon 12-25-2023 [...] levels: No high-grade spinal canal stenosis. 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 [...] RN at 12/24/2023 11:06 AM AD Normal [facility] IMPRESSION: Successful removal of a right internal jugular tunneled double lumen power line catheter. I personally viewed and interpreted these images and I have reviewed and approved this report. OLOGY EXAM: IR VENOUS ACCESS REMOVAL, 12/24/2023 11:55 AM CLINICAL INDICATIONS: Bacteremia s/p antibiotic treatment [employer] Machine Operator: LAVELLE Ponce Local anesthetic: Lidocaine 1% 3mL. [...] AM CLINICAL INDICATIONS: Bacteremia s/p antibiotic treatment Swiss Type Scre[employer] Machine Operator: LAVELLE Ponce Local anesthetic: Lidocaine 1% 3mL. [...] I have reviewed and approved this report. [facility] Radiology Study observation (narrative) [facility] VENOUS ACCESS REMOVALOrdered By: Renny Flowers on 12-24-2023 [facility] Work Phone: Outside Records Officeon Outside Records Office [id number]# 1.00TIFF Normal [facility] Referrals Officeon Referrals Office [id number]# 1.00TIFF Normal [facility] XR FEMUR RT 2+ VIEWSon 11-15 [...] Tillman MD on 11/15/2023 6:43 AM Normal [facility] XR HIP RT 2-3 VIEWS W [...] Tillman MD on 11/15/2023 6:40 AM Normal [facility] XR SPINE LUMBAR 2 OR 3 [...] Tillman MD on 11/15/2023 6:39 AM Normal [facility] XR TIBIA FIBULA RT MIN 2 [...] Tillman MD on 11/15/2023 6:42 AM Normal [facility] MR CERVICAL SPINE W WO CONTo [...] Portillo MD on 11/11/2023 4:11 PM Normal [facility] MR LUMBAR SPINE W WO CONTon [...] Portillo MD on 11/11/2023 2:24 PM Normal [facility] MR THORACIC SPINE W WO CONTo [...] Portillo MD on 11/11/2023 4:14 PM Normal [facility] Physician Query Reporton Physician Query Report Please respond to this Physician Query by marking X by the answer you deem appropriate! Thank you [facility] Medical Records Patient: GEOVANNY MEJÍA [address] : 1970 [place], [place] [address] Location: [phone] Unit #: [id number] Physician Query Report Craig Rodriguez Patient Name: GEOVANNY MEJÍA Date of : 1970 Account: [id number] Admit Date: 09/08/2023 Discharge Date: 09/18/2023 Facility: [facility] -------- Dear Troy Garber Charles, INT [...] Thank you, Laurel Wolfe BSN, RN Clinical Duty Manager [email or web address] This query is a communication tool used for clarification of a document to capture accurate clinical data, reflect intent, and clinical thought process in the health record that accurately depicts patient's care and treatment during the hospital stay. [facility] Sepsis criteria: Documentation of infection or suspected [...] 10/23/23 0856 < > Co-Signer: on Normal [facility] Pharmacy Daily Noteon 2022 Pharmacy Daily Note [facility] Medical Records Patient: GEOVANNY MEJÍA [address] : 1970 [place], [place] [address] Location: [facility] [phone] Unit #: [id number] Pharmacy Daily [facility] Dt/Tm: 09/12/23 5687 Pharmacy - Patient Information Patient Information: Name: [...] 09/13 @ 0900 following first maintenance dose. -[facility] 09/08 Pt started on broad spectrum abx [...] Adames on 10/16/23 0723 < > Normal [facility] Pharmacy Daily Noteon 2022 Pharmacy Daily Note [facility] Medical Records Patient: GEOVANNY MEJÍA [address] : 1970 [place], [place] [address] Location: [phone] Unit #: [id number] Pharmacy Daily Note Renae Duenas Service Dt/Tm: 09/13/23 1405 Pharmacy - Patient [...] > Co-Signed by: Charity Adames on 10/14/23 3624 < > Normal [facility] Progress Note - Antibioticso n 10-14-2023 Progress Note - Antibiotics [facility] Medical Records Patient: GEOVANNY MEJÍA [address] : 1970 [place], [place] [address] Location: [address] [place] [address] Unit #: [id number] Progress Note - Antibiotics Jaret Ramírez (ID) Service Dt/Tm: 09/15/230 Antibiotic Note Results: The patient's postop from [...] has been seen at the facility in [place], [place] where she was noted to have significant back pain and discomfort. An operation was recommended at that time. It was decided to transfer her care to a neurological/neurosur gical service in [place], [place]. The patient was deciding whether or [...] < > Report Signed by: on Normal [facility] Progress Note - Antibioticso n 10-13-2023 Progress Note - Antibiotics [facility] Medical Records Patient: GEOVANNY MEJÍA [address] : 1970 [place], [place] [address] Location: [facility] [phone] Unit #: [id number] Progress Note - Antibiotics Jaret Ramírez (ID) [...] < > Report Signed by: on Normal [facility] Progress Note - Antibioticso n 10-11-2023 Progress Note - Antibiotics [facility] Medical Records Patient: GEOVANNY MEJÍA [address] : 1970 [place], [place] [address] Location: [phone] [id number] - Antibiotics Jaret Ramírez (ID) Service Dt/Tm: 09/11/23 1521 Antibiotic Note Results: Patient is resting comfortably. She still has pain in the abdomen but she controls that with the CAP MAKER pump which is beginning to make her [...] that is with the use of the CAP MAKER pump. This patient may continue to be a problem which may not be managed long-term by the percutaneous catheter drainage. * The patient has back pain and she claims she cannot move her legs. I did try to assess the situation but the patient was on her CAP MAKER pump and she was sedated to the point examination could not be performed. I suggested neuro consult. TE 00:30 Entered by: Jaret Ramírez (ID)MD on 09/11/23 1521 Report Signed by: Jaret Ramírez MD (ID) on 10/11/23 1536 < > Report Signed by: on Normal [facility] Progress Note Surgicalon Progress Note Surgical [facility] Medical Records Patient: GEOVANNY MEJÍA [address] : 1970 [place], [place] [address] Location: [phone] Unit #: [id number] Progress Note Surgical Ryanne Morales PA-C Service Dt/Tm: 09/11/23 0814 53 year old male with intraabdominal abscess. S/P IR drainage. Brian follow. IV antibiotics. Pain worsening and CAP MAKER started and pain better controlled. repeat CCT [...] Results: 09/11/23 04:58 Images available, please contact [facility] Medical Records 09/11/23 04:58 Images available, please contact [facility] Medical RecordsLaboratory Results - last 24 hr WBC 29.8 H RBC 3.54 L Hgb 9.8 L Hct 30.1 L MCV 84.9 MCH 27.7 MCHC 32.6 L RDW 16.1 H Plt Count 180 Microbiology 09/08/23 18:15 Blood,Venous - Final 09/08/23 18:15 Blood,Venous Blood Culture - Preliminary Staphylococcus aureus 09/08/23 18:20 Blood,Venous Blood Culture - Preliminary Staph (more content not included)... Normal [facility] Progress Note Surgical [facility] Medical Records Patient: GEOVANNY MEJÍA [address] : 1970 [place], [place] [address] Location: [facility] [phone] Unit #: [id number] Progress Note Surgical Ryanne Morales PA-C Service Dt/Tm: 09/09/23 1516 53 year old female with intraabdominal abscess. S/P IR drainage. Brian follow. IV antibiotics. Pain worsening and CAP MAKER started Patient seen and examined independently by [...] AVSS. Still continued high pain. Will add CAP MAKER pump for better pain control. Increased nausea. [...] Results: 09/09/23 03:36 Images available, please contact [facility] Medical Records 09/09/23 03:37 Images available, please contact [facility] Medical RecordsLaboratory Results - last 24 [...] MD on 10/09/23 1739 < > Normal [facility] Progress Note Surgical [facility] Medical Records Patient: GEOVANNY MEJÍA [address] : 1970 [place] [address] Location: [phone] Unit #: [id number] Progress Note Surgical Ryanne Morales PA-C Service Dt/Tm: 09/10/23 1447 53 year old male with intraabdominal abscess. S/P IR drainage. Brian follow. IV antibiotics. Pain worsening and CAP MAKER started and pain better controlled. repeat CCT [...] vitals reviewed. AVSS. Pain better controlled with CAP MAKER pump. NPO with meds okay. -flatus/-BM CT [...] Results: 09/10/23 05:35 Images available, please contact [facility] Medical Records 09/10/23 05:35 Images available, please contact [facility] Medical RecordsLaboratory Results - last 24 [...] Entered by: Ryanne Morales PA-C on 09/10/23 1749 Report Signed by: Ryanne Fuchs (more content not included)... Normal [facility] Progress Note Surgical [facility] Medical Records Patient: GEOVANNY MEJÍA [address] : 1970 [place], [place] [address] Location: [phone] Unit #: [id number] Progress Note Surgical Ryanne Morales PA-C Service [...] Results: 09/12/23 03:59 Images available, please contact [facility] Medical Records 09/12/23 03:59 Images available, please contact [facility] Medical RecordsLaboratory Results - last 24 [...] aureus 09/08 (more content not included)... Normal [facility] CBC,PLATELETSon 10-06-2023 Hematocrit (Bld) [Volume fraction] 27.8 % Low 34.9-44.3 [facility] Comment on above: Performed By: #### Martir HM7, MGO #### [facility] (DEFAULT) [address] [place] [address] Hemoglobin (Bld) [Mass/Vol] 8.4 g/dL Low 11.4-15.2 [facility] Comment on above: Performed By: #### Martir HM7, MGO #### [facility] (DEFAULT) [address] [place] [address]188 MCV (RBC) [Entitic vol] 87.4 fL Normal 79.6-97.7 O [facility] Comment on above: Performed By: #### Martir HM7, MGO #### [facility] (DEFAULT) [address] [place] [address] 39466 Mean Cell Hgb 26.4 pg Normal 25.9-33.9 [facility] Comment on above: Performed By: #### Martir HM7, MGO #### [facility] (DEFAULT) [address] [place] [address] 87113 Mean Cell Hgb Conc 30.2 g/dL Low 31.4-35.9 [facility] Comment on above: Performed By: #### C HM7, MGO #### [facility] (DEFAULT) [address] [place] [address] 72776 Platelet mean volume (Bld) [Entitic vol] 9.4 fL Normal 8.5-12.2 [facility] Comment on above: Performed By: #### C HM7, MGO #### [facility] (DEFAULT) [address] [place] [address] 29298 Platelets (Bld) [#/Vol] 549 10*3/uL High 150-393 [facility] Comment on above: Performed By: #### C HM7, MGO #### [facility] (DEFAULT) [address] [place] [address] 03896 RBC (Bld) [#/Vol] 3.18 10*6/uL Low 3.91-5.04 [facility] Comment on above: Performed By: #### C HM7, MGO #### [facility] (DEFAULT) [address] [place] [address] 53771 RBC Distribution 15.2 % High 10.8-14.9 [facility] Comment on above: Performed By: #### C HM7, MGO #### [facility] (DEFAULT) [address] [place] [address] 95496 WBC (Bld) [#/Vol] 6.58 10*3/uL Normal 3.99-11.19 [facility] Comment on above: Performed By: #### C HM7, MGO #### [facility] (DEFAULT) [address] [place] [address] 7[address]85 CHEM 7 (LYTES,BUN,CREA,GLUC) on 10-06-2023 Anion gap [Moles/Vol] 12 mmol/L Normal 7-17 [facility] Comment on above: Performed By: #### C HM7, MGO #### [facility] (DEFAULT) [address] [place] [address] 70494 Chloride [Moles/Vol] 101 mmol/L Normal 98-108 [facility] Comment on above: Performed By: #### C HM7, MGO #### [facility] (DEFAULT) [address] [place] [address] 20372 CO2 [Moles/Vol] 28 mmol/L Normal 21-31 [facility] Comment on above: Performed By: #### C HM7, MGO #### [facility] (DEFAULT) [address] [place] [address] 19625 Creatinine [Mass/Vol] 0.65 mg/dL Normal 0.50-1.20 [facility] Comment on above: Performed By: #### C HM7, MGO #### [facility] (DEFAULT) [address] [place] [address] 06610 eGFR, CKD-EPI, Female > Normal >=60 [facility] Comment on above: Result Comment: Repo rted eGFR is based on the CKD-EPI 2020 equation using creatinine, age, and sex. Performed By: #### C HM7, MGO #### [facility] (DEFAULT) [address] [place] [address] 87456 Glucose [Mass/Vol] 109 mg/dL High 70-99 [facility] Comment on above: Performed By: #### C HM7, MGO #### [facility] (DEFAULT) [address] [place] [address] 79902 Osmolality [Osmolality] 287 mosm/kg Normal 278-305 [facility] Comment on above: Performed By: #### C HM7, MGO #### [facility] (DEFAULT) [address] [place] [address] 32098 Potassium [Moles/Vol] 3.9 mmol/L Normal 3.5-5.0 [facility] Comment on above: Performed By: #### C HM7, MGO #### [facility] (DEFAULT) [address] [place] [address] 50610 Sodium [Moles/Vol] 137 mmol/L Normal 135-145 [facility] Comment on above: Performed By: #### C HM7, MGO #### [facility] (DEFAULT) [address] [place] [address] 96865 Urea nitrogen [Mass/Vol] 10 mg/dL Normal 7-25 [facility] Comment on above: Performed By: #### C HM7, MGO #### [facility] (DEFAULT) [address] [place] [address] 21506 Urea nitrogen/Creatinine [Mass ratio] 15 mg/mg Normal [facility] Comment on above: Performed By: #### C HM7, MGO #### [facility] (DEFAULT) [address] [place] [address] 47995 MAGNESIUMon 10-06-2023 Magnesium [Mass/Vol] 1.9 mg/dL Normal 1.6-2.6 [facility] Comment on above: Performed By: #### C HM7, MGO #### [facility] (DEFAULT) [address] [place] [address] 84086 SARS-COV-2 RAPIDon 3 SARS-CoV-2 (COVID-19) RNA GINETTE+probe Ql (Unsp spec) Not detected Normal NOT DETECTED [facility] Comment on above: Order Comment: Use [...] eye protection, gown, and gloves. Result Comment: [facility] Negative results do not preclude [...] Performed By: #### U HCG #### [facility] (DEFAULT) [address] [address] PLATELET COUNTon 10-04-2023 Platelet mean volume (Bld) [Entitic vol] 9.4 fL Normal 8.5-12.2 [facility] Comment on above: Performed By: #### C HM7, MGO #### [facility] (DEFAULT) [address] [address] Platelets (Bld) [#/Vol] 522 10*3/uL High 150-393 [facility] Comment on above: Performed By: #### C HM7, MGO #### [facility] (DEFAULT) [address] [address] CBC,PLATELETSon 10-03-2023 Hematocrit (Bld) [Volume fraction] 26.7 % Low 34.9-44.3 [facility] Comment on above: Performed By: #### T YPEC #### [facility] (DEFAULT) [address] [address] Hemoglobin (Bld) [Mass/Vol] 8.3 g/dL Low 11.4-15.2 [facility] Comment on above: Performed By: #### T YPEC #### [facility] (DEFAULT) [address] [address] MCV (RBC) [Entitic vol] 87.8 fL Normal 79.6-97.7 O [facility] Comment on above: Performed By: #### T YPEC #### [facility] (DEFAULT) [address] [address] Mean Cell Hgb 27.3 pg Normal 25.9-33.9 [facility] Comment on above: Performed By: #### T YPEC #### [facility] (DEFAULT) [address] [place] [address] 92767 Mean Cell Hgb Conc 31.1 g/dL Low 31.4-35.9 [facility] Comment on above: Performed By: #### T YPEC #### [facility] (DEFAULT) [address] [place] [address] 88310 Platelet mean volume (Bld) [Entitic vol] 9.6 fL Normal 8.5-12.2 [facility] Comment on above: Performed By: #### T YPEC #### [facility] (DEFAULT) [address] [place] [address] 69701 Platelets (Bld) [#/Vol] 545 10*3/uL High 150-393 [facility] Comment on above: Performed By: #### T YPEC #### [facility] (DEFAULT) [address] [place] [address] 89705 RBC (Bld) [#/Vol] 3.04 10*6/uL Low 3.91-5.04 [facility] Comment on above: Performed By: #### T YPEC #### [facility] (DEFAULT) [address] [place] [address] 32915 RBC Distribution 15.6 % High 10.8-14.9 [facility] Comment on above: Performed By: #### T YPEC #### [facility] (DEFAULT) [address] [place] [address] 50548 WBC (Bld) [#/Vol] 6.16 10*3/uL Normal 3.99-11.19 [facility] Comment on above: Performed By: #### T YPEC #### [facility] (DEFAULT) [address] [place] [address] 51239 CHEM 7 (LYTES,BUN,CREA,GLUC) on 10-03-2023 Anion gap [Moles/Vol] 14 mmol/L Normal 7-17 [facility] Comment on above: Performed By: #### C HM7, MGO #### [facility] (DEFAULT) [address] [place] [address] 37832 Chloride [Moles/Vol] 100 mmol/L Normal 98-108 [facility] Comment on above: Performed By: #### C HM7, MGO #### [facility] (DEFAULT) [address] [place] [address] 54964 CO2 [Moles/Vol] 28 mmol/L Normal 21-31 [facility] Comment on above: Performed By: #### C HM7, MGO #### [facility] (DEFAULT) [address] [place] [address] 26351 Creatinine [Mass/Vol] 0.56 mg/dL Normal 0.50-1.20 [facility] Comment on above: Performed By: #### C HM7, MGO #### [facility] (DEFAULT) [address] [place] [address] 10632 eGFR, CKD-EPI, Female > Normal >=60 [facility] Comment on above: Result Comment: Repo rted eGFR is based on the CKD-EPI 2020 equation using creatinine, age, and sex. Performed By: #### C HM7, MGO #### [facility] (DEFAULT) [address] [place] [address] 68984 Glucose [Mass/Vol] 105 mg/dL High 70-99 [facility] Comment on above: Performed By: #### C HM7, MGO #### [facility] (DEFAULT) [address] [place] [address] 21408 Osmolality [Osmolality] 288 mosm/kg Normal 278-305 [facility] Comment on above: Performed By: #### C HM7, MGO #### [facility] (DEFAULT) [address] [place] [address] 08883 Potassium [Moles/Vol] 3.9 mmol/L Normal 3.5-5.0 [facility] Comment on above: Performed By: #### C HM7, MGO #### [facility] (DEFAULT) [address] [place] [address] 40816 Sodium [Moles/Vol] 138 mmol/L Normal 135-145 [facility] Comment on above: Performed By: #### C HM7, MGO #### [facility] (DEFAULT) [address] [place] [address] 03653 Urea nitrogen [Mass/Vol] 10 mg/dL Normal 7-25 [facility] Comment on above: Performed By: #### C HM7, MGO #### [facility] (DEFAULT) [address] [place] [address] 01243 Urea nitrogen/Creatinine [Mass ratio] 18 mg/mg Normal [facility] Comment on above: Performed By: #### C HM7, MGO #### [facility] (DEFAULT) [address] [place] [address] 76220 HEPATIC FUNCTION PANELon Albumin [Mass/Vol] 2.6 g/dL Low 3.5-5.0 [facility] Comment on above: Performed By: #### V ANCTR #### [facility] (DEFAULT) [address] [place] [address] 87073 ALP [Catalytic activity/Vol] 173 U/L High 32-126 [facility] Comment on above: Performed By: #### V ANCTR #### [facility] (DEFAULT) [address] [address] ALT [Catalytic activity/Vol] 8 U/L Low 9-48 [facility] Comment on above: Performed By: #### V ANCTR #### [facility] (DEFAULT) [address] [place] [address] 74078 AST [Catalytic activity/Vol] 21 U/L Normal 10-39 [facility] Comment on above: Performed By: #### V ANCTR #### [facility] (DEFAULT) [address] [place] [address] 25863 Bilirubin [Mass/Vol] 0.2 mg/dL Normal <1.5 [facility] Comment on above: Performed By: #### V ANCTR #### [facility] (DEFAULT) [address] [place] [address] 69076 Bilirubin.indirect [Mass/Vol] 0.2 mg/dL Normal <0.3 [facility] Comment on above: Performed By: #### V ANCTR #### [facility] (DEFAULT) [address] [place] [address] 13390 Protein [Mass/Vol] 6.5 g/dL Normal 6.4-8.3 [facility] Comment on above: Performed By: #### V ANCTR #### [facility] (DEFAULT) [address] [place] [address] 52334 MAGNESIUMon 10-03-2023 Magnesium [Mass/Vol] 1.9 mg/dL Normal 1.6-2.6 [facility] Comment on above: Performed By: #### C HM7, MGO #### [facility] (DEFAULT) [address] [place] [address] 26055 CHEM 7 (LYTES,BUN,CREA,GLUC) on 10-02-2023 Anion gap [Moles/Vol] 14 mmol/L Normal 7-17 [facility] Comment on above: Performed By: #### Martir HM7, MGO #### [facility] (DEFAULT) [address] [place] [address] 66738 Chloride [Moles/Vol] 101 mmol/L Normal 98-108 [facility] Comment on above: Performed By: #### Martir HM7, MGO #### [facility] (DEFAULT) [address] [place] [address] 76266 CO2 [Moles/Vol] 28 mmol/L Normal 21-31 [facility] Comment on above: Performed By: #### C HM7, MGO #### [facility] (DEFAULT) [address] [place] [address] 93243 Creatinine [Mass/Vol] 0.55 mg/dL Normal 0.50-1.20 [facility] Comment on above: Performed By: #### C HM7, MGO #### [facility] (DEFAULT) [address] [place] [address] 93325 eGFR, CKD-EPI, Female > Normal >=60 [facility] Comment on above: Result Comment: Repo rted eGFR is based on the CKD-EPI 2020 equation using creatinine, age, and sex. Performed By: #### C HM7, MGO #### [facility] (DEFAULT) [address] [place] [address] 91824 Glucose [Mass/Vol] 94 mg/dL Normal 70-99 [facility] Comment on above: Performed By: #### C HM7, MGO #### [facility] (DEFAULT) [address] [place] [address] 51587 Osmolality [Osmolality] 289 mosm/kg Normal 278-305 [facility] Comment on above: Performed By: #### C HM7, MGO #### [facility] (DEFAULT) [address] [place] [address] 00505 Potassium [Moles/Vol] 3.9 mmol/L Normal 3.5-5.0 [facility] Comment on above: Performed By: #### C HM7, MGO #### [facility] (DEFAULT) [address] [place] [address] 95557 Sodium [Moles/Vol] 139 mmol/L Normal 135-145 [facility] Comment on above: Performed By: #### C HM7, MGO #### [facility] (DEFAULT) [address] [place] [address] 78363 Urea nitrogen [Mass/Vol] 10 mg/dL Normal 7-25 [facility] Comment on above: Performed By: #### C HM7, MGO #### [facility] (DEFAULT) [address] [place] [address] 10258 Urea nitrogen/Creatinine [Mass ratio] 18 mg/mg Normal [facility] Comment on above: Performed By: #### C HM7, MGO #### [facility] (DEFAULT) [address] [place] [address] 44450 CHEM 7 (LYTES,BUN,CREA,GLUC) on 10-01-2023 Anion gap [Moles/Vol] 14 mmol/L Normal 7-17 [facility] Comment on above: Performed By: #### C HM7, MGO #### [facility] (DEFAULT) [address] [place] [address] 97240 Chloride [Moles/Vol] 101 mmol/L Normal 98-108 [facility] Comment on above: Performed By: #### C HM7, MGO #### [facility] (DEFAULT) [address] [place] [address] 50619 CO2 [Moles/Vol] 27 mmol/L Normal 21-31 [facility] Comment on above: Performed By: #### C HM7, MGO #### [facility] (DEFAULT) [address] [place] [address] 48958 Creatinine [Mass/Vol] 0.51 mg/dL Normal 0.50-1.20 [facility] Comment on above: Performed By: #### C HM7, MGO #### [facility] (DEFAULT) [address] [place] [address] 11150 eGFR, CKD-EPI, Female > Normal >=60 [facility] Comment on above: Result Comment: Repo rted eGFR is based on the CKD-EPI 2020 equation using creatinine, age, and sex. Performed By: #### C HM7, MGO #### [facility] (DEFAULT) [address] [place] [address] 09615 Glucose [Mass/Vol] 94 mg/dL Normal 70-99 [facility] Comment on above: Performed By: #### C HM7, MGO #### [facility] (DEFAULT) [address] [place] [address] 26400 Osmolality [Osmolality] 288 mosm/kg Normal 278-305 [facility] Comment on above: Performed By: #### C HM7, MGO #### [facility] (DEFAULT) [address] [place] [address], [place] [address] Potassium [Moles/Vol] 4.0 mmol/L Normal 3.5-5.0 [facility] Comment on above: Performed By: #### C HM7, MGO #### [facility] (DEFAULT) [address] [facility] [address] Sodium [Moles/Vol] 138 mmol/L Normal 135-145 [facility] Comment on above: Performed By: #### C HM7, MGO #### [facility] (DEFAULT) [address] [place] [address] Urea nitrogen [Mass/Vol] 12 mg/dL Normal 7-25 [facility] Comment on above: Performed By: #### C HM7, MGO #### [facility] (DEFAULT) [address] [place] [address] Urea nitrogen/Creatinine [Mass ratio] 24 mg/mg Normal [facility] Comment on above: Performed By: #### C HM7, MGO #### [facility] (DEFAULT) [address] [place] [address] 66066 INSERTION CVC TUNNELEDon INSERTION CVC TUNNELED EXAM: [...] 25 mg Given Rate: 0 Route: Intravenous; 11:31 AM 09/30/23 fentaNYL (SUBLIMAZE) injection 0-300 mcg [...] Route: Intravenous; 11:44 AM 09/30/23 lidocaine-epinephrine 2 %-1:[id number] injection 0-20 mL 7 mL Given Rate: [...] medication(s), I spent 42 minutes of continuous ehpa-ip-jfnt time with the patient. COMPARISON: CT chest [...] Rad Dose: 3 Rad Dose Measurement: mGy [employer] Event Details User 10:58 AM 09/30/23 Timeout: [...] Intravenous KB (more content not included)... Normal [facility] PLATELET COUNTon 10-01-2023 Platelet mean volume (Bld) [Entitic vol] 9.2 fL Normal 8.5-12.2 [facility] Comment on above: Performed By: #### V ANCTR #### [facility] (DEFAULT) [address] [place] [address] 31594 Platelets (Bld) [#/Vol] 490 10*3/uL High 150-393 [facility] Comment on above: Performed By: #### V ANCTR #### [facility] (DEFAULT) [address] [place] [address] 91241 CBC AND ELECTRONIC DIFFon Basophils (Bld) [#/Vol] 0.05 10*3/uL Normal 0.00-0.15 [facility] Comment on above: Performed By: #### C HM7, MGO #### [facility] (DEFAULT) [address] [place] [address] 06050 Basophils/100 WBC (Bld) 0.8 % Normal O [facility] Comment on above: Performed By: #### Martir HM7, MGO #### [facility] (DEFAULT) [address] [place] [address] 21819 DIFF STATUS Electronic Differential Normal [facility] Comment on above: Performed By: #### Martir HM7, MGO #### [facility] (DEFAULT) [address] [place] [address] 76403 Eosinophils (Bld) [#/Vol] 0.13 10*3/uL Normal 0.00-0.42 [facility] Comment on above: Performed By: #### C HM7, MGO #### [facility] (DEFAULT) [address] [place] [address] 15601 Eosinophils/100 WBC (Bld) 2.1 % Normal [facility] Comment on above: Performed By: #### C HM7, MGO #### [facility] (DEFAULT) [address] [place] [address] 18625 Hematocrit (Bld) [Volume fraction] 28.1 % Low 34.9-44.3 [facility] Comment on above: Performed By: #### Martir HM7, MGO #### [facility] (DEFAULT) [address] [address] Hemoglobin (Bld) [Mass/Vol] 8.6 g/dL Low 11.4-15.2 [facility] Comment on above: Performed By: #### Martir HM7, MGO #### [facility] (DEFAULT) [address] [address] Immature Grans % 0.8 % Normal [facility] Comment on above: Performed By: #### Martir HM7, MGO #### [facility] (DEFAULT) [address] [address] Immature Grans Absolute 0.05 K/uL Normal <=0.08 O [facility] Comment on above: Performed By: #### Martir HM7, MGO #### [facility] (DEFAULT) [address] [address] Lymphocytes (Bld) [#/Vol] 2.24 10*3/uL Normal 1.16-3.51 [facility] Comment on above: Performed By: #### Martir HM7, MGO #### [facility] (DEFAULT) [address] 02795 Lymphocytes/100 WBC (Bld) 36.7 % Normal [facility] Comment on above: Performed By: #### Martir HM7, MGO #### [facility] (DEFAULT) [address] 17982 MCV (RBC) [Entitic vol] 88.1 fL Normal 79.6-97.7 O [facility] Comment on above: Performed By: #### Martir HM7, MGO #### [facility] (DEFAULT) [address] [address] Mean Cell Hgb 27.0 pg Normal 25.9-33.9 [facility] Comment on above: Performed By: #### C HM7, MGO #### [facility] (DEFAULT) [address] [place] [address] 05446 Mean Cell Hgb Conc 30.6 g/dL Low 31.4-35.9 [facility] Comment on above: Performed By: #### C HM7, MGO #### [facility] (DEFAULT) [address] [place] [address] 58102 Monocytes (Bld) [#/Vol] 0.55 10*3/uL Normal 0.22-0.87 [facility] Comment on above: Performed By: #### C HM7, MGO #### [facility] (DEFAULT) [address] [place] [address] 91925 Monocytes/100 WBC (Bld) 9.0 % Normal O [facility] Comment on above: Performed By: #### Martir HM7, MGO #### [facility] (DEFAULT) [address] [place] [address] 40212 Nucleated RBC 0.0 /100 WBC Normal <=0.2 [facility] Comment on above: Performed By: #### Martir HM7, MGO #### [facility] (DEFAULT) [address] [place] [address] 08576 Platelet mean volume (Bld) [Entitic vol] 9.5 fL Normal 8.5-12.2 [facility] Comment on above: Performed By: #### C HM7, MGO #### [facility] (DEFAULT) [address] [place] [address] 14849 Platelets (Bld) [#/Vol] 543 10*3/uL High 150-393 [facility] Comment on above: Performed By: #### C HM7, MGO #### [facility] (DEFAULT) [address] [place] [address] 28374 RBC (Bld) [#/Vol] 3.19 10*6/uL Low 3.91-5.04 [facility] Comment on above: Performed By: #### C HM7, MGO #### [facility] (DEFAULT) [address] [place] [address] 58769 RBC Distribution 15.5 % High 10.8-14.9 [facility] Comment on above: Performed By: #### C HM7, MGO #### [facility] (DEFAULT) [address] [place] [address] 35425 Segs + Bands Auto 50.6 % Normal [facility] Comment on above: Performed By: #### C HM7, MGO #### [facility] (DEFAULT) [address] [place] [address] 28790 Segs + Bands,Absolute Auto 3.09 K/uL Normal 1.64-7.28 [facility] Comment on above: Performed By: #### C HM7, MGO #### [facility] (DEFAULT) [address] [place] [address] 42077 WBC (Bld) [#/Vol] 6.11 10*3/uL Normal 3.99-11.19 [facility] Comment on above: Performed By: #### C HM7, MGO #### [facility] (DEFAULT) [address] [place] [address] 60596 CHEM 7 (LYTES,BUN,CREA,GLUC) on 09-30-2023 Anion gap [Moles/Vol] 13 mmol/L Normal 7-17 [facility] Comment on above: Performed By: #### T YPEC #### [facility] (DEFAULT) [address] [place] [address] 32157 Chloride [Moles/Vol] 100 mmol/L Normal 98-108 [facility] Comment on above: Performed By: #### T YPEC #### [facility] (DEFAULT) [address] [place] [address] 73503 CO2 [Moles/Vol] 28 mmol/L Normal 21-31 [facility] Comment on above: Performed By: #### T YPEC #### [facility] (DEFAULT) [address] [place] [address] 84148 Creatinine [Mass/Vol] 0.67 mg/dL Normal 0.50-1.20 [facility] Comment on above: Performed By: #### T YPEC #### [facility] (DEFAULT) [address] [place] [address] 96271 eGFR, CKD-EPI, Female > Normal >=60 [facility] Comment on above: Result Comment: Repo rted eGFR is based on the CKD-EPI 2020 equation using creatinine, age, and sex. Performed By: #### T YPEC #### [facility] (DEFAULT) [address] [place] [address] 10589 Glucose [Mass/Vol] 98 mg/dL Normal 70-99 [facility] Comment on above: Performed By: #### T YPEC #### [facility] (DEFAULT) [address] [place] [address] 63959 Osmolality [Osmolality] 288 mosm/kg Normal 278-305 [facility] Comment on above: Performed By: #### T YPEC #### [facility] (DEFAULT) [address] [place] [address] 11130 Potassium [Moles/Vol] 4.4 mmol/L Normal 3.5-5.0 [facility] Comment on above: Performed By: #### T YPEC #### [facility] (DEFAULT) [address] 6[address] Sodium [Moles/Vol] 137 mmol/L Normal 135-145 [facility] Comment on above: Performed By: #### T YPEC #### [facility] (DEFAULT) [address] 64428 Urea nitrogen [Mass/Vol] 13 mg/dL Normal 7-25 [facility] Comment on above: Performed By: #### T YPEC #### [facility] (DEFAULT) [address] [place] [address] 39666 Urea nitrogen/Creatinine [Mass ratio] 19 mg/mg Normal [facility] Comment on above: Performed By: #### T YPEC #### [facility] (DEFAULT) [address] [place] [address] 56173 HCG QUALITATIVE, URINEon Beta HCG ( test) Ql (U) Negative Normal Negative [facility] Comment on above: Performed By: #### U HCG #### [facility] (DEFAULT) [address] [place] [address] 47239 PT,INR,PTTon 09-30-2023 aPTT Coag (Bld) [Time] 23.1 s Low 24.0-34.3 [facility] Comment on above: Result Comment: Spec imen integrity checked. Performed By: #### T YPEC #### [facility] (DEFAULT) [address] [place] [address] 10407 INR Coag (PPP) [Relative time] 1.1 {INR} Normal 0.9-1.1 [facility] Comment on above: Performed By: #### T YPEC #### [facility] (DEFAULT) [address] [place] [address] 78324 PT Coag (PPP) [Time] 14.5 s High 11.9-14.2 [facility] Comment on above: Performed By: #### T YPEC #### [facility] (DEFAULT) [address] [place] [address] 44782 CHEM 7 (LYTES,BUN,CREA,GLUC) on 09-29-2023 Anion gap [Moles/Vol] 13 mmol/L Normal 7-[address] [facility] Comment on above: Performed By: #### B LDCULT #### [facility] (DEFAULT) [address] [place] [address] 66291 Chloride [Moles/Vol] 99 mmol/L Normal 98-108 [facility] Comment on above: Performed By: #### B LDCULT #### [facility] (DEFAULT) [address] [place] [address] 78314 CO2 [Moles/Vol] 29 mmol/L Normal 21-31 [facility] Comment on above: Performed By: #### B LDCULT #### [facility] (DEFAULT) [address] [place] [address] 74632 Creatinine [Mass/Vol] 0.71 mg/dL Normal 0.50-1.20 [facility] Comment on above: Performed By: #### B LDCULT #### [facility] (DEFAULT) [address] [place] [address] 88011 eGFR, CKD-EPI, Female > Normal >=60 [facility] Comment on above: Result Comment: Repo rted eGFR is based on the CKD-EPI 2020 equation using creatinine, age, and sex. Performed By: #### B LDCULT #### [facility] (DEFAULT) [address] [place] [address] 26038 Glucose [Mass/Vol] 103 mg/dL High 70-99 [facility] Comment on above: Performed By: #### B LDCULT #### [facility] (DEFAULT) [address] [place] [address] 82407 Osmolality [Osmolality] 287 mosm/kg Normal 278-305 [facility] Comment on above: Performed By: #### B LDCULT #### [facility] (DEFAULT) [address] [place] [address] 64167 Potassium [Moles/Vol] 4.2 mmol/L Normal 3.5-5.0 [facility] Comment on above: Performed By: #### B LDCULT #### [facility] (DEFAULT) [address] [place] [address] 55830 Sodium [Moles/Vol] 137 mmol/L Normal 135-145 [facility] Comment on above: Performed By: #### B LDCULT #### [facility] (DEFAULT) [address] [place] [address] 41099 Urea nitrogen [Mass/Vol] 11 mg/dL Normal 7-25 [facility] Comment on above: Performed By: #### B LDCULT #### [facility] (DEFAULT) [address] [place] [address] 80575 Urea nitrogen/Creatinine [Mass ratio] 15 mg/mg Normal [facility] Comment on above: Performed By: #### B LDCULT #### [facility] (DEFAULT) [address] [place] [address] 54651 CHEM 7 (LYTES,BUN,CREA,GLUC) on 09-28-2023 Anion gap [Moles/Vol] 13 mmol/L Normal 7-17 [facility] Comment on above: Performed By: #### C HM7, MGO #### [facility] (DEFAULT) [address] [place] [address] 22852 Chloride [Moles/Vol] 98 mmol/L Normal 98-108 [facility] Comment on above: Performed By: #### C HM7, MGO #### [facility] (DEFAULT) [address] [place] [address] 74732 CO2 [Moles/Vol] 29 mmol/L Normal 21-31 [facility] Comment on above: Performed By: #### C HM7, MGO #### [facility] (DEFAULT) [address] [place] [address] 93495 Creatinine [Mass/Vol] 0.61 mg/dL Normal 0.50-1.20 [facility] Comment on above: Performed By: #### C HM7, MGO #### [facility] (DEFAULT) [address] [place] [address] 40401 eGFR, CKD-EPI, Female > Normal >=60 [facility] Comment on above: Result Comment: Repo rted eGFR is based on the CKD-EPI 2020 equation using creatinine, age, and sex. Performed By: #### C HM7, MGO #### [facility] (DEFAULT) [address] [place] [address] 81223 Glucose [Mass/Vol] 101 mg/dL High 70-99 [facility] Comment on above: Performed By: #### Martir HM7, MGO #### [facility] (DEFAULT) [address] [place] [address] 29167 Osmolality [Osmolality] 283 mosm/kg Normal 278-305 [facility] Comment on above: Performed By: #### Martir HM7, MGO #### [facility] (DEFAULT) [address] [place] [address] 42880 Potassium [Moles/Vol] 4.5 mmol/L Normal 3.5-5.[address] [facility] Comment on above: Performed By: #### Martir HM7, MGO #### [facility] (DEFAULT) [address] [place] [address] 67415 Sodium [Moles/Vol] 135 mmol/L Normal 135-145 [facility] Comment on above: Performed By: #### Martir HM7, MGO #### [facility] (DEFAULT) [address] [place] [address] 41987 Urea nitrogen [Mass/Vol] 8 mg/dL Normal 7-25 [facility] Comment on above: Performed By: #### Martir HM7, MGO #### [facility] (DEFAULT) [address] [place] [address] 60469 Urea nitrogen/Creatinine [Mass ratio] 13 mg/mg Normal [facility] Comment on above: Performed By: #### Martir HM7, MGO #### [facility] (DEFAULT) [address] [place] [address] 37343 PLATELET COUNTon 09-28-2023 Platelet mean volume (Bld) [Entitic vol] 9.5 fL Normal 8.5-12.2 [facility] Comment on above: Performed By: #### B LDCULT #### [facility] (DEFAULT) [address] [place] [address] 50533 Platelets (Bld) [#/Vol] 467 10*3/uL High 150-393 [facility] Comment on above: Performed By: #### B LDCULT #### [facility] (DEFAULT) [address] [place] [address] 34644 Status Note/Updateon 023 Status Note/Update [facility] Medical Records Patient: GEOVANNY MEJÍA [address] : 1970 [place], [place] [address] Location: [facility] [phone] Unit #: [id number] Status Note/Update Ryanne Morales PA-C Service Dt/Tm: 09/15/231708 Note: GEOVANNY MEJÍA is a 53 yr old F who was admitted on 09/08/23 for INTRA ABDOMINAL ABCESS. No surgical interventions required at this time with presentation improving, will sign off case. Entered by: Ryanne Morales PA-C on 09/15/231708 Report Signed by: Ryanne Morales PA-C on 09/15/231708 < > Report Signed by: Rohti Pimentel MD on 09/27/23 1124 < > Normal [facility] CHEM 7 (LYTES,BUN,CREA,GLUC) on 09-26-2023 Anion gap [Moles/Vol] 11 mmol/L Normal 7-17 [facility] Comment on above: Performed By: #### C HM7 #### [facility] (DEFAULT) [address] [place] [address] 29709 Chloride [Moles/Vol] 99 mmol/L Normal 98-108 [facility] Comment on above: Performed By: #### C HM7 #### [facility] (DEFAULT) [address] [place] [address] 22103 CO2 [Moles/Vol] 30 mmol/L Normal 21-31 [facility] Comment on above: Performed By: #### C HM7 #### [facility] (DEFAULT) [address] [place] [address] 12666 Creatinine [Mass/Vol] 0.54 mg/dL Normal 0.50-1.20 [facility] Comment on above: Performed By: #### C HM7 #### [facility] (DEFAULT) [address] [place] [address] 13533 eGFR, CKD-EPI, Female > Normal >=60 [facility] Comment on above: Result Comment: Repo rted eGFR is based on the CKD-EPI 2020 equation using creatinine, age, and sex. Performed By: #### C HM7 #### [facility] (DEFAULT) [address] [place] [address] 86265 Glucose [Mass/Vol] 94 mg/dL Normal 70-99 [facility] Comment on above: Performed By: #### C HM7 #### [facility] (DEFAULT) [address] [place] [address] 15469 Osmolality [Osmolality] 283 mosm/kg Normal 278-305 [facility] Comment on above: Performed By: #### C HM7 #### [facility] (DEFAULT) [address] [place] [address] 16031 Potassium [Moles/Vol] 4.2 mmol/L Normal 3.5-5.0 [facility] Comment on above: Performed By: #### C HM7 #### [facility] (DEFAULT) [address] [place] [address] 43386 Sodium [Moles/Vol] 136 mmol/L Normal 135-145 [facility] Comment on above: Performed By: #### C HM7 #### [facility] (DEFAULT) [address] [place] [address] 18216 Urea nitrogen [Mass/Vol] 6 mg/dL Low 7-25 [facility] Comment on above: Performed By: #### C HM7 #### [facility] (DEFAULT) [address] [place] [address] 87391 Urea nitrogen/Creatinine [Mass ratio] 11 mg/mg Normal [facility] Comment on above: Performed By: #### C HM7 #### [facility] (DEFAULT) [address] [place] [address] 76056 ABORH TYPE RECONFIRMATIONon 09-25-2023 ABO/RH(D) TYPE Positive Normal [facility] Comment on above: Performed By: #### T YPEC #### [facility] (DEFAULT) [address] [place] [address] 45748 C REACTIVE PROTEINon 023 CRP [Mass/Vol] 95.29 mg/L High <10.00 [facility] Comment on above: Performed By: #### V ANCTR #### [facility] (DEFAULT) [address] [place] [address] 81844 CBC,PLATELETSon 09-25-2023 Hematocrit (Bld) [Volume fraction] 23.3 % Low 34.9-44.3 [facility] Comment on above: Performed By: #### C HM7, MGO #### [facility] (DEFAULT) [address] [place] [address] 24647 Hemoglobin (Bld) [Mass/Vol] 7.4 g/dL Low 11.4-15.2 [facility] Comment on above: Performed By: #### C HM7, MGO #### [facility] (DEFAULT) [address] [place] [address] 25032 MCV (RBC) [Entitic vol] 86.9 fL Normal 79.6-97.7 O [facility] Comment on above: Performed By: #### C HM7, MGO #### [facility] (DEFAULT) [address] [place] [address] [id number] Mean Cell Hgb 27.6 pg Normal 25.9-33.9 [facility] Comment on above: Performed By: #### C HM7, MGO #### [facility] (DEFAULT) [address] [place] [address] 37285 Mean Cell Hgb Conc 31.8 g/dL Normal 31.4-35.9 [facility] Comment on above: Performed By: #### C HM7, MGO #### [facility] (DEFAULT) [address] [place] [address] 78874 Platelet mean volume (Bld) [Entitic vol] 9.7 fL Normal 8.5-12.2 [facility] Comment on above: Performed By: #### C HM7, MGO #### [facility] (DEFAULT) [address] [place] [address] 59234 Platelets (Bld) [#/Vol] 360 10*3/uL Normal 150-393 [facility] Comment on above: Performed By: #### C HM7, MGO #### [facility] (DEFAULT) [address] [place] [address] 04255 RBC (Bld) [#/Vol] 2.68 10*6/uL Low 3.91-5.04 [facility] Comment on above: Performed By: #### C HM7, MGO #### [facility] (DEFAULT) [address] [place] [address] 91656 RBC Distribution 14.6 % Normal 10.8-14.9 [facility] Comment on above: Performed By: #### C HM7, MGO #### [facility] (DEFAULT) [address] [place] [address] 70265 WBC (Bld) [#/Vol] 5.41 10*3/uL Normal 3.99-11.19 [facility] Comment on above: Performed By: #### C HM7, MGO #### [facility] (DEFAULT) [address] [place] [address] 46299 CHEM 7 (LYTES,BUN,CREA,GLUC) on 09-25-2023 Anion gap [Moles/Vol] 13 mmol/L Normal 7-[address] [facility] Comment on above: Performed By: #### C HM7, MGO #### [facility] (DEFAULT) [address] [place] [address] 48659 Chloride [Moles/Vol] 97 mmol/L Low 98-108 [facility] Comment on above: Performed By: #### C HM7, MGO #### [facility] (DEFAULT) [address] [place] [address] 17252 CO2 [Moles/Vol] 27 mmol/L Normal 21-31 [facility] Comment on above: Performed By: #### C HM7, MGO #### [facility] (DEFAULT) [address] [place] [address] 84251 Creatinine [Mass/Vol] 0.56 mg/dL Normal 0.50-1.20 [facility] Comment on above: Performed By: #### C HM7, MGO #### [facility] (DEFAULT) [address] [place] [address] 73086 eGFR, CKD-EPI, Female > Normal >=60 [facility] Comment on above: Result Comment: Repo rted eGFR is based on the CKD-EPI 2020 equation using creatinine, age, and sex. Performed By: #### C HM7, MGO #### [facility] (DEFAULT) [address] [place] [address] 58299 Glucose [Mass/Vol] 99 mg/dL Normal 70-99 [facility] Comment on above: Performed By: #### C HM7, MGO #### [facility] (DEFAULT) [address] [place] [address] 01123 Osmolality [Osmolality] 278 mosm/kg Normal 278-305 [facility] Comment on above: Performed By: #### C HM7, MGO #### [facility] (DEFAULT) [address] [place] [address] 69842 Potassium [Moles/Vol] 3.8 mmol/L Normal 3.5-5.0 [facility] Comment on above: Performed By: #### C HM7, MGO #### [facility] (DEFAULT) [address] [place] [address] 88179 Sodium [Moles/Vol] 133 mmol/L Low 135-145 [facility] Comment on above: Performed By: #### C HM7, MGO #### [facility] (DEFAULT) [address] [place] [address] 27940 Urea nitrogen [Mass/Vol] 8 mg/dL Normal 7-25 [facility] Comment on above: Performed By: #### C HM7, MGO #### [facility] (DEFAULT) [address] [place] [address] 95308 Urea nitrogen/Creatinine [Mass ratio] 14 mg/mg Normal [facility] Comment on above: Performed By: #### C HM7, MGO #### [facility] (DEFAULT) [address] [place] [address] 96400 Anion gap [Moles/Vol] 12 mmol/L Normal 7-17 [facility] Comment on above: Performed By: #### V ANCTR #### [facility] (DEFAULT) [address] [place] [address] 25930 Chloride [Moles/Vol] 96 mmol/L Low 98-108 [facility] Comment on above: Performed By: #### V ANCTR #### [facility] (DEFAULT) [address] [place] [address] 66910 CO2 [Moles/Vol] 28 mmol/L Normal 21-31 [facility] Comment on above: Performed By: #### V ANCTR #### [facility] (DEFAULT) [address] [place] [address] 12379 Creatinine [Mass/Vol] 0.46 mg/dL Low 0.50-1.20 [facility] Comment on above: Performed By: #### V ANCTR #### [facility] (DEFAULT) [address] [place] [address] 68302 eGFR, CKD-EPI, Female > Normal >=60 [facility] Comment on above: Result Comment: Repo rted eGFR is based on the CKD-EPI 2020 equation using creatinine, age, and sex. Performed By: #### V ANCTR #### [facility] (DEFAULT) [address] [place] [address] 60350 Glucose [Mass/Vol] 104 mg/dL High 70-99 [facility] Comment on above: Performed By: #### V ANCTR #### [facility] (DEFAULT) [address] [place] [address] 10238 Osmolality [Osmolality] 276 mosm/kg Low 278-305 [facility] Comment on above: Performed By: #### V ANCTR #### [facility] (DEFAULT) [address] [place] [address] 96864 Potassium [Moles/Vol] 3.7 mmol/L Normal 3.5-5.0 [facility] Comment on above: Performed By: #### V ANCTR #### [facility] (DEFAULT) [address] [place] [address] 15162 Sodium [Moles/Vol] 132 mmol/L Low 135-145 [facility] Comment on above: Performed By: #### V ANCTR #### [facility] (DEFAULT) [address] [place] [address] 22778 Urea nitrogen [Mass/Vol] 8 mg/dL Normal 7-25 [facility] Comment on above: Performed By: #### V ANCTR #### [facility] (DEFAULT) [address] [place] [address] 72920 Urea nitrogen/Creatinine [Mass ratio] 17 mg/mg Normal [facility] Comment on above: Performed By: #### V ANCTR #### [facility] (DEFAULT) [address] [place] [address] 12253 HEPATIC FUNCTION PANELon Albumin [Mass/Vol] 2.6 g/dL Low 3.5-5.0 [facility] Comment on above: Performed By: #### C HM7, MGO #### [facility] (DEFAULT) [address] [place] [address] 62444 ALP [Catalytic activity/Vol] 126 U/L Normal 32-126 [facility] Comment on above: Performed By: #### C HM7, MGO #### [facility] (DEFAULT) [address] [place] [address] 60662 ALT [Catalytic activity/Vol] 16 U/L Normal 9-48 [facility] Comment on above: Performed By: #### Martir HM7, MGO #### [facility] (DEFAULT) [address] [place] [address] 44612 AST [Catalytic activity/Vol] 18 U/L Normal 10-39 [facility] Comment on above: Performed By: #### Martir HM7, MGO #### [facility] (DEFAULT) [address] [place] [address] 88123 Bilirubin [Mass/Vol] 0.2 mg/dL Normal <1.5 [facility] Comment on above: Performed By: #### Martir HM7, MGO #### [facility] (DEFAULT) [address] [place] [address] 49495 Bilirubin Direct < Normal <0.3 [facility] Comment on above: Performed By: #### Martir HMZachary, MGO #### [facility] (DEFAULT) [address] [place] [address] 01952 Protein [Mass/Vol] 6.5 g/dL Normal 6.4-8.3 [facility] Comment on above: Performed By: #### Martir HM7, MGO #### [facility] (DEFAULT) [address] [place] [address] 16774 CBC,PLATELETSon 09-24-2023 Hematocrit (Bld) [Volume fraction] 23.3 % Low 34.9-44.3 [facility] Comment on above: Performed By: #### B LDCULT #### [facility] (DEFAULT) [address] [place] [address] 65246 Hemoglobin (Bld) [Mass/Vol] 7.2 g/dL Low 11.4-15.2 [facility] Comment on above: Performed By: #### B LDCULT #### [facility] (DEFAULT) [address] [place] [address] 04903 MCV (RBC) [Entitic vol] 88.6 fL Normal 79.6-97.7 [facility] Comment on above: Performed By: #### B LDCULT #### [facility] (DEFAULT) [address] [place] [address] 68450 Mean Cell Hgb 27.4 pg Normal 25.9-33.9 [facility] Comment on above: Performed By: #### B LDCULT #### [facility] (DEFAULT) [address] [place] [address] 41339 Mean Cell Hgb Conc 30.9 g/dL Low 31.4-35.9 [facility] Comment on above: Performed By: #### B LDCULT #### [facility] (DEFAULT) [address] [address]52 Platelet mean volume (Bld) [Entitic vol] 10.0 fL Normal 8.5-12.2 [facility] Comment on above: Performed By: #### B LDCULT #### [facility] (DEFAULT) [address] [place] [address] 43582 Platelets (Bld) [#/Vol] 406 10*3/uL High 150-393 [facility] Comment on above: Performed By: #### B LDCULT #### [facility] (DEFAULT) [address] 36568 RBC (Bld) [#/Vol] 2.63 10*6/uL Low 3.91-5.04 [facility] Comment on above: Performed By: #### B LDCULT #### [facility] (DEFAULT) [address] [place] [address] 24434 RBC Distribution 14.7 % Normal 10.8-14.9 [facility] Comment on above: Performed By: #### B LDCULT #### [facility] (DEFAULT) [address] [place] [address] 58488 WBC (Bld) [#/Vol] 7.19 10*3/uL Normal 3.99-11.19 [facility] Comment on above: Performed By: #### B LDCULT #### [facility] (DEFAULT) [address] [place] [address] 49221 CHEM 7 (LYTES,BUN,CREA,GLUC) on 09-24-2023 Anion gap [Moles/Vol] 14 mmol/L Normal 7-17 [facility] Comment on above: Performed By: #### C HM7, MGO #### [facility] (DEFAULT) [address] [place] [address] 80701 Chloride [Moles/Vol] 95 mmol/L Low 98-108 [facility] Comment on above: Performed By: #### C HM7, MGO #### [facility] (DEFAULT) [address] [place] [address] 05111 CO2 [Moles/Vol] 26 mmol/L Normal 21-31 [facility] Comment on above: Performed By: #### C HM7, MGO #### [facility] (DEFAULT) [address] [place] [address] 22146 Creatinine [Mass/Vol] 0.53 mg/dL Normal 0.50-1.20 [facility] Comment on above: Performed By: #### C HM7, MGO #### [facility] (DEFAULT) [address] [place] [address] 44352 eGFR, CKD-EPI, Female > Normal >=60 [facility] Comment on above: Result Comment: Repo rted eGFR is based on the CKD-EPI 2020 equation using creatinine, age, and sex. Performed By: #### C HM7, MGO #### [facility] (DEFAULT) [address] [place] [address] 67699 Glucose [Mass/Vol] 104 mg/dL High 70-99 [facility] Comment on above: Performed By: #### C HM7, MGO #### [facility] (DEFAULT) [address] [place] [address] 18620 Osmolality [Osmolality] 274 mosm/kg Low 278-305 [facility] Comment on above: Performed By: #### C HM7, MGO #### [facility] (DEFAULT) [address] [place] [address] 83780 Potassium [Moles/Vol] 3.5 mmol/L Normal 3.5-5.0 [facility] Comment on above: Performed By: #### C HM7, MGO #### [facility] (DEFAULT) [address] [place] [address] 52931 Sodium [Moles/Vol] 131 mmol/L Low 135-145 [facility] Comment on above: Performed By: #### C HM7, MGO #### [facility] (DEFAULT) [address] [place] [address] 65265 Urea nitrogen [Mass/Vol] 8 mg/dL Normal 7-25 [facility] Comment on above: Performed By: #### C HM7, MGO #### [facility] (DEFAULT) [address] [place] [address] 93386 Urea nitrogen/Creatinine [Mass ratio] 15 mg/mg Normal [facility] Comment on above: Performed By: #### C HM7, MGO #### [facility] (DEFAULT) [address] [place] [address] 06159 MAGNESIUMon 09-24-2023 Magnesium [Mass/Vol] 1.7 mg/dL Normal 1.6-2.6 [facility] Comment on above: Performed By: #### C HM7, MGO #### [facility] (DEFAULT) [address] [place] [address] 54704 TYPE AND SCREENon 09-24-2023 ABO/RH(D) TYPE Positive Normal [facility] Comment on above: Performed By: #### X M #### [facility] (DEFAULT) [address] [place] [address] 03887 CBC,PLATELETSon 09-23-2023 Hematocrit (Bld) [Volume fraction] 22.0 % Low 34.9-44.3 [facility] Comment on above: Performed By: #### V ANCTR #### [facility] (DEFAULT) [address] 84063 Hemoglobin (Bld) [Mass/Vol] 6.8 g/dL Critically low 11.4-15.2 [facility] Comment on above: Result Comment: This result has been called to MARK BUSH RN by LAURA DOSS on 09 23 2023 at 1815, and has been read back. Performed By: #### V ANCTR #### [facility] (DEFAULT) [address] [place] [address] 24864 MCV (RBC) [Entitic vol] 87.6 fL Normal 79.6-97.7 [facility] Comment on above: Performed By: #### V ANCTR #### [facility] (DEFAULT) [address] 73123 Mean Cell Hgb 27.1 pg Normal 25.9-33.9 [facility] Comment on above: Performed By: #### V ANCTR #### [facility] (DEFAULT) [address] 43515 Mean Cell Hgb Conc 30.9 g/dL Low 31.4-35.9 [facility] Comment on above: Performed By: #### V ANCTR #### [facility] (DEFAULT) [address] [address]97 Platelet mean volume (Bld) [Entitic vol] 10.2 fL Normal 8.5-12.2 [facility] Comment on above: Performed By: #### V ANCTR #### [facility] (DEFAULT) [address] 35701 Platelets (Bld) [#/Vol] 374 10*3/uL Normal 150-393 [facility] Comment on above: Performed By: #### V ANCTR #### [facility] (DEFAULT) [address] [place] [address] 94864 RBC (Bld) [#/Vol] 2.51 10*6/uL Low 3.91-5.04 [facility] Comment on above: Performed By: #### V ANCTR #### [facility] (DEFAULT) [address] [place] [address] 11865 RBC Distribution 14.6 % Normal 10.8-14.9 [facility] Comment on above: Performed By: #### V ANCTR #### [facility] (DEFAULT) [address] [place] [address] 08926 WBC (Bld) [#/Vol] 7.70 10*3/uL Normal 3.99-11.19 [facility] Comment on above: Performed By: #### V ANCTR #### [facility] (DEFAULT) [address] [place] [address] 63083 ECHOCARDIOGRAMon 09-23-2023 Echocardiography TTE for evaluation o [...] the original result were not included. Facility [facility] Patient Information Patient Name Geovanny Mejía Legal [...] Role Read Date Aiden Jorgensen MD Echo [place] 09/23/2023 Left Heart Measurements LV - Systole [...] Tricuspid Valv (more content not included)... Normal [facility] LACTATE, BLOODon 09-23-2023 Lactate, Blood 1.2 mmol/L Normal 0.5-1.6 [facility] Comment on above: Performed By: #### C HM7, MGO #### [facility] (DEFAULT) [address] [place] [address] CHEM 7 (LYTES,BUN,CREA,GLUC) on 09-22-2023 Anion gap [Moles/Vol] 13 mmol/L Normal 7-[address] [facility] Comment on above: Performed By: #### U HCG #### [facility] (DEFAULT) [address] [place] [address] Chloride [Moles/Vol] 97 mmol/L Low 98-108 [facility] Comment on above: Performed By: #### U HCG #### [facility] (DEFAULT) [address] [place] [address] 40032 CO2 [Moles/Vol] 25 mmol/L Normal 21-31 [facility] Comment on above: Performed By: #### U HCG #### [facility] (DEFAULT) [address] [place] [address] 09435 Creatinine [Mass/Vol] 0.59 mg/dL Normal 0.50-1.20 [facility] Comment on above: Performed By: #### U HCG #### [facility] (DEFAULT) [address] [place] [address] 82869 eGFR, CKD-EPI, Female > Normal >=60 [facility] Comment on above: Result Comment: Repo rted eGFR is based on the CKD-EPI 2020 equation using creatinine, age, and sex. Performed By: #### U HCG #### [facility] (DEFAULT) [address] [place] [address] 47113 Glucose [Mass/Vol] 133 mg/dL High 70-99 [facility] Comment on above: Performed By: #### U HCG #### [facility] (DEFAULT) [address] [place] [address] 10116 Osmolality [Osmolality] 277 mosm/kg Low 278-305 [facility] Comment on above: Performed By: #### U HCG #### [facility] (DEFAULT) [address] [place] [address] 85764 Potassium [Moles/Vol] 3.8 mmol/L Normal 3.5-5.0 [facility] Comment on above: Performed By: #### U HCG #### [facility] (DEFAULT) [address] [place] [address] 39793 Sodium [Moles/Vol] 131 mmol/L Low 135-145 [facility] Comment on above: Performed By: #### U HCG #### [facility] (DEFAULT) [address] [place] [address] Urea nitrogen [Mass/Vol] 10 mg/dL Normal 7-25 [facility] Comment on above: Performed By: #### U HCG #### [facility] (DEFAULT) [address] [place] [address] Urea nitrogen/Creatinine [Mass ratio] 17 mg/mg Normal [facility] Comment on above: Performed By: #### U HCG #### [facility] (DEFAULT) [address] [place] [address] CT ABDOMEN/PELVIS WITH CONTR Conrado 09-22-2023 CT [...] percutaneous pigtail catheter. The collection has a patient intake representative measurement of 5.4 x 2.7 cm [...] aspect of the rectal wall, with a patient intake representative measurement of 3.1 x 1.4 cm [...] for detailed description of intrathoracic contents. Normal [facility] Case Management Daily Noteon 09-22-2023 Case Management Daily Note [facility] Case Management Patient: GEOVANNY MEJÍA [address] : 1970 [place], [place] [address] Location: [facility] [phone] [id number] Management Daily Note Evelyne Pena RN Service Date: 09/11/23 Case Mgmt Daily Note - Plan of Care Toy Assembly Supervisor Agrees with Attending and Consult Plan: Yes - Patient Preferences AND Goals What is the patient's preference?: Home Care Recommended acute discharge goals: Home Care - Hospital Stay Days Day 1 Comment: 09/08 Met with patient in the room. Patient is from [place]. She is up here to visit her sister. Patient reporting she is normally independent. Does not have a PCP. Patient would like to use [facility] OP Pharm for meds. Planning to have her cousin pick her up at d/c. Contact is her cousin Ursula. Denies having LW/dPOA. Toy Assembly Supervisor: Evelyne Pena, RN Day 2 Comment: 09/09 Met with patient in the room. Patient asking to get up and move around. [facility] S/p L ABD drain placement. Patient agreeable to [facility] for drain mgmt if needed. Reporting she will be going to [facility] at d/c to stay with her cousin Ursula. CM spoke with patients cousin Ursula via telephone who reports she is ok with [facility] coming to her home if patient would go there at d/c. Ursula reporting patient was homeless in [place] and recently move to [place] with her sister Monique. Toy Assembly Supervisor: Evelyne Pena, RN Day 3 Comment: 09/10 D/c needs pending medical course. Jr present. Dilaudid CAP MAKER. PT/OT. ID c/s. Therapy recs for IPR vs OP PT. Will follow to assist with d/c needs. Toy Assembly Supervisor: Evelyne Pena RN Day 4 Comment: 09/11 Met with patient in the room who is planning to d/c to her cousin Gena lutz in [place], [place]. Patient is agreeable to [facility]. CM spoke with Ursula who is agreeable for patient to come there at d/c. Referral sent to [facility]. Await approval. CAP MAKER. ABD drain. NPO. ID c/s. PT/OT. Toy Assembly Supervisor: Evelyne Pena RN - Home Health/IV Infusion/Wound Vac Home Health Referral Indicated: Yes Home Health List Provided: Yes Indication for Home Health: Wound Care, Other Patient's Response: Yes Home Health Agencies: [facility] Patient given the option to view [...] 1622 < > Co-Signed by: on Normal [facility] Case Management Daily Note [facility] Case Management Patient: GEOVANNY MEJÍA. : 1970 [place], [place] [address] Location: [address] [place] [address] Unit #: [id number] Case Management Daily Note Evelyne Pena RN Service Date: 09/12/23 Case Mgmt Daily Note - Plan of Care Toy Assembly Supervisor Agrees with Attending and Consult Plan: Yes - Patient Preferences AND Goals What is the patient's preference?: New SNF Recommended acute discharge goals: New SNF - COVID-19 Was Position Statement Letter Delivered?: Yes - Hospital Stay Days Day 1 Comment: 09/08 Met with patient in the room. Patient is from [place]. She is up here to visit her sister. Patient reporting she is normally independent. Does not have a PCP. Patient would like to use [facility] OP Pharm for meds. Planning to have her cousin pick her up at d/c. Contact is her cousin Ursula. Denies having LW/dPOA. Toy Assembly Supervisor: Eveylne Pena, RN Day 2 Comment: 09/09 Met with patient in the room. Patient asking to get up and move around. PT/OT to eval. S/p L ABD drain placement. Patient agreeable to [facility] for drain mgmt if needed. Reporting she will be going to [facility] at d/c to stay with her cousin Ursula. CM spoke with patients cousin Ursula via telephone who reports she is ok with [facility] coming to her home if patient would go there at d/c. Ursula reporting patient was homeless in [place] and recently move to [place] with her sister Monique. Toy Assembly Supervisor: Evelyne Pena, RN Day 3 Comment: 09/10 D/c needs pending medical course. Jr mullen. Dilaudid CAP MAKER. PT/OT. ID c/s. Therapy recs for IPR vs OP PT. Will follow to assist with d/c needs. Toy Assembly Supervisor: Evelyne Pena, RN Day 4 Comment: 09/11 Met with patient in the room who is planning to d/c to her cousin Gena lutz in [place], [place]. Patient is agreeable to [facility]. CM spoke with Ursula who is agreeable for patient to come there at d/c. Referral sent to [facility]. Await approval. CAP MAKER. ABD drain. NPO. ID c/s. PT/OT. Toy Assembly Supervisor: Evelyne Pena, RN Day 5 Comment: 09/12 Met with patient in the room to discuss d/c plan. Patient unable to move b/l LE. No sensation to RLE. Does have sesation to LLE. PT/OT recommending SNF, patient agreeable. She would like to go somewhere near her cousin Ursula in [place], [place]. CM assisted patient with changing her address with her [facility] insurance to an [place] address. SW c/s for SNF placement and [facility] assist with [place]. Patient will need a precert. CAP MAKER continues. If patient would improve with mobility, she has been accepted to [facility]. CM spoke with Ursula via telephone to update. Toy Assembly Supervisor: Evelyne Pena, RN - Home Health/IV Infusion/Wound [...] 1622 < > Co-Signed by: on Normal [facility] BLOOD CULTUREon 09-21-2023 Bacteria identified Cx Nom (Unsp spec) NO GROWTH DAY 5 OF 5 Normal [facility] Comment on above: Order Comment: 2 [...] Performed By: #### B LDCULT #### [facility] [facility] (DEFAULT[facility] [address] [address] Order Comment: 2 Bot tles (1 Set [...] Performed By: #### U HCG #### [facility] (DEFAULT) [address] [place] [address] 74538 CBC,PLATELETSon 09-21-2023 Hematocrit (Bld) [Volume fraction] 24.7 % Low 34.9-44.3 [facility] Comment on above: Performed By: #### C HM7, MGO #### [facility] (DEFAULT) [address] [place] [address] 08333 Hemoglobin (Bld) [Mass/Vol] 7.7 g/dL Low 11.4-15.2 [facility] Comment on above: Performed By: #### C HM7, MGO #### [facility] (DEFAULT) [address] [place] [address] 81018 MCV (RBC) [Entitic vol] 89.5 fL Normal 79.6-97.7 O [facility] Comment on above: Performed By: #### C HM7, MGO #### [facility] (DEFAULT) [address] [place] [address] 73822 Mean Cell Hgb 27.9 pg Normal 25.9-33.9 [facility] Comment on above: Performed By: #### C HM7, MGO #### [facility] (DEFAULT) [address] [place] [address] 62796 Mean Cell Hgb Conc 31.2 g/dL Low 31.4-35.9 [facility] Comment on above: Performed By: #### C HM7, MGO #### [facility] (DEFAULT) [address] [place] [address] 05285 Platelet mean volume (Bld) [Entitic vol] 10.0 fL Normal 8.5-12.2 [facility] Comment on above: Performed By: #### C HM7, MGO #### [facility] (DEFAULT) [address] [place] [address] 58796 Platelets (Bld) [#/Vol] 481 10*3/uL High 150-393 [facility] Comment on above: Performed By: #### C HM7, MGO #### [facility] (DEFAULT) [address] [place] [address] 41069 RBC (Bld) [#/Vol] 2.76 10*6/uL Low 3.91-5.04 [facility] Comment on above: Performed By: #### C HM7, MGO #### [facility] (DEFAULT) [address] [place] [address] 76613 RBC Distribution 15.0 % High 10.8-14.9 [facility] Comment on above: Performed By: #### C HM7, MGO #### [facility] (DEFAULT) [address] [place] [address] 30665 WBC (Bld) [#/Vol] 8.57 10*3/uL Normal 3.99-11.19 [facility] Comment on above: Performed By: #### C HM7, MGO #### [facility] (DEFAULT) [address] [place] [address] 04035 CHEM 7 (LYTES,BUN,CREA,GLUC) on 09-21-2023 Anion gap [Moles/Vol] 14 mmol/L Normal 7-17 [facility] Comment on above: Performed By: #### V ANCTR #### [facility] (DEFAULT) [address] [place] [address] 80967 Chloride [Moles/Vol] 93 mmol/L Low 98-108 [facility] Comment on above: Performed By: #### V ANCTR #### [facility] (DEFAULT) [address] [place] [address] 12615 CO2 [Moles/Vol] 24 mmol/L Normal 21-31 [facility] Comment on above: Performed By: #### V ANCTR #### [facility] (DEFAULT) [address] [place] [address] 36899 Creatinine [Mass/Vol] 0.81 mg/dL Normal 0.50-1.20 [facility] Comment on above: Performed By: #### V ANCTR #### [facility] (DEFAULT) [address] [address] GFR/1.73 sq M.predicted among non-blacks MDRD (S/P/Bld) [Vol rate/Area] 86 mL/min/{1.73_m2} Normal >=60 [facility] Comment on above: Result Comment: Repo rted eGFR is based on the CKD-EPI 2020 equation using creatinine, age, and sex. Performed By: #### V ANCTR #### [facility] (DEFAULT) [address] [address] Glucose [Mass/Vol] 131 mg/dL High 70-99 [facility] Comment on above: Performed By: #### V ANCTR #### [facility] (DEFAULT) [address] [address] Osmolality [Osmolality] 272 mosm/kg Low 278-305 [facility] Comment on above: Performed By: #### V ANCTR #### [facility] (DEFAULT) [address] [address] Potassium [Moles/Vol] 4.3 mmol/L Normal 3.5-5.0 [facility] Comment on above: Performed By: #### V ANCTR #### [facility] (DEFAULT) [address] [address] Sodium [Moles/Vol] 127 mmol/L Low 135-145 [facility] Comment on above: Performed By: #### V ANCTR #### [facility] (DEFAULT) [address] [address] Urea nitrogen [Mass/Vol] 14 mg/dL Normal 7-25 [facility] Comment on above: Performed By: #### V ANCTR #### [facility] (DEFAULT) [address] [address] Urea nitrogen/Creatinine [Mass ratio] 17 mg/mg Normal [facility] Comment on above: Performed By: #### V ANCTR #### [facility] (DEFAULT) [address] [place] [address] CT CHEST WITH CONTRASTon CT CHEST WITH [...] without related post operative fluid collections. Normal [facility] URINALYSIS REFLEX TO CULTURE PERFORMABLEon 09-21-2023 Appearance (U) Clear Normal Clear [facility] Comment on above: Order Comment: For i ndwelling catheters, specimen collection is acceptable on catheter day 1 and 2 only. ? Performed By: #### U HCG #### [facility] (DEFAULT) [address] [place] [address] 61892 Bacteria ABSENT Normal ABSENT [facility] Comment on above: Order Comment: For i ndwelling catheters, specimen collection is acceptable on catheter day 1 and 2 only. ? Performed By: #### U HCG #### [facility] (DEFAULT) [address] [place] [address] 04317 Blood Urine Negative Normal Negative [facility] Comment on above: Order Comment: For i ndwelling catheters, specimen collection is acceptable on catheter day 1 and 2 only. ? Performed By: #### U HCG #### [facility] (DEFAULT) [address] [place] [address] 98539 Color (U) Yellow Normal Yellow [facility] Comment on above: Order Comment: For i ndwelling catheters, specimen collection is acceptable on catheter day 1 and 2 only. ? Performed By: #### U HCG #### [facility] (DEFAULT) [address] [place] [address] 06928 Glucose Ql (U) Negative Normal Negative [facility] Comment on above: Order Comment: For i ndwelling catheters, specimen collection is acceptable on catheter day 1 and 2 only. ? Performed By: #### U HCG #### [facility] (DEFAULT) [address] [place] [address] 97731 Ketones Ql (U) Negative Normal Negative [facility] Comment on above: Order Comment: For i ndwelling catheters, specimen collection is acceptable on catheter day 1 and 2 only. ? Performed By: #### U HCG #### [facility] (DEFAULT) [address] [place] [address] 50256 Leukocyte esterase Test strip Ql (U) Negative Normal Negative [facility] Comment on above: Order Comment: For i ndwelling catheters, specimen collection is acceptable on catheter day 1 and 2 only. ? Performed By: #### U HCG #### [facility] (DEFAULT) [address] [place] [address] 76327 Nitrites Urine Negative Normal Negative [facility] Comment on above: Order Comment: For i ndwelling catheters, specimen collection is acceptable on catheter day 1 and 2 only. ? Performed By: #### U HCG #### [facility] (DEFAULT) [address] [place] [address] 93197 pH (U) 6.5 [pH] Normal 5.0-7.0 [facility] Comment on above: Order Comment: For i ndwelling catheters, specimen collection is acceptable on catheter day 1 and 2 only. ? Performed By: #### U HCG #### [facility] (DEFAULT) [address] [place] [address] 99346 Protein Urine Negative Normal Negative [facility] Comment on above: Order Comment: For i ndwelling catheters, specimen collection is acceptable on catheter day 1 and 2 only. ? Performed By: #### U HCG #### [facility] (DEFAULT) [address] [place] [address] 70585 RBC Urine 0-2 Normal 0-2 [facility] Comment on above: Order Comment: For i ndwelling catheters, specimen collection is acceptable on catheter day 1 and 2 only. ? Performed By: #### U HCG #### [facility] (DEFAULT) [address] [place] [address] 59277 Specific [place] Urine 1.011 Normal 1.001-1.035 O [facility] Comment on above: Order Comment: For i ndwelling catheters, specimen collection is acceptable on catheter day 1 and 2 only. ? Performed By: #### U HCG #### [facility] (DEFAULT) [address] [place] [address] 08152 Squamous/Epithelial Cells 0-2/hpf Normal 0-2/hpf, 3-5/hpf = 1+ [facility] Comment on above: Order Comment: For i ndwelling catheters, specimen collection is acceptable on catheter day 1 and 2 only. ? Performed By: #### U HCG #### [facility] (DEFAULT) [address] [address] Urobilinogen Urine 1.0 E.U./dL Normal 0.2 E.U/d L, 1.0 E.U/dL [facility] Comment on above: Order Comment: For i ndwelling catheters, specimen collection is acceptable on catheter day 1 and 2 only. ? Performed By: #### U HCG #### [facility] (DEFAULT) [address] [place] [address] 01108 WBC Urine 0 - 5 Normal 0 - 5 [facility] Comment on above: Order Comment: For i ndwelling catheters, specimen collection is acceptable on catheter day 1 and 2 only. ? Performed By: #### U HCG #### [facility] (DEFAULT) [address] [address] VANCOMYCIN LEVEL, TROUGH (MA E DRUG LEVEL)on 09-21-2023 Vancomycin, Trough 13.1 mcg/mL Normal Therapeut ic Range: 10.0-20.0 mcg/mL [facility] Comment on above: Order Comment: 2 [...] Performed By: #### B LDCULT #### [facility] (DEFAULT) [address] [place] [address] 39823 CHEM 7 (LYTES,BUN,CREA,GLUC) on 09-20-2023 Anion gap [Moles/Vol] 13 mmol/L Normal 7-[address] [facility] Comment on above: Performed By: #### V ANCTR #### [facility] (DEFAULT) [address] [address] Chloride [Moles/Vol] 94 mmol/L Low 98-108 [facility] Comment on above: Performed By: #### V ANCTR #### [facility] (DEFAULT) [address] [place] [address] 99[address] CO2 [Moles/Vol] 27 mmol/L Normal 21-31 [facility] Comment on above: Performed By: #### V ANCTR #### [facility] (DEFAULT) [address] [place] [address] 94221 Creatinine [Mass/Vol] 0.63 mg/dL Normal 0.50-1.20 [facility] Comment on above: Performed By: #### V ANCTR #### [facility] (DEFAULT) [address] [place] [address] 06989 eGFR, CKD-EPI, Female > Normal >=60 [facility] Comment on above: Result Comment: Repo rted eGFR is based on the CKD-EPI 2020 equation using creatinine, age, and sex. Performed By: #### V ANCTR #### [facility] (DEFAULT) [address] [place] [address] 97928 Glucose [Mass/Vol] 104 mg/dL High 70-99 [facility] Comment on above: Performed By: #### V ANCTR #### [facility] (DEFAULT) [address] [place] [address] 80786 Osmolality [Osmolality] 275 mosm/kg Low 278-305 [facility] Comment on above: Performed By: #### V ANCTR #### [facility] (DEFAULT) [address] [place] [address] 63748 Potassium [Moles/Vol] 4.4 mmol/L Normal 3.5-5.0 [facility] Comment on above: Performed By: #### V ANCTR #### [facility] (DEFAULT) [address] [place] [address] 20110 Sodium [Moles/Vol] 130 mmol/L Low 135-145 [facility] Comment on above: Performed By: #### V ANCTR #### [facility] (DEFAULT) [address] [place] [address] 17937 Urea nitrogen [Mass/Vol] 12 mg/dL Normal 7-25 [facility] Comment on above: Performed By: #### V ANCTR #### [facility] (DEFAULT) [address] [address] Urea nitrogen/Creatinine [Mass ratio] 19 mg/mg Normal [facility] Comment on above: Performed By: #### V ANCTR #### [facility] (DEFAULT) [address] [address] CREATININE,RANDOM URINEon Creatinine (U) [Mass/Vol] 29.34 mg/dL Normal [facility] Comment on above: Order Comment: The r eference range has not been established for random urine specimens. The test result should be integrated into the clinical context for interpretation. Performed By: #### U HCG #### [facility] (DEFAULT) [address] [place] [address] 04675 LYTES (NA, K, CL) - URINE - RANDOMon 09-20-2023 Sodium (U) [Moles/Vol] 62 mmol/L Normal [facility] Comment on above: Order Comment: The r eference range has not been established for random urine specimens. The test result should be integrated into the clinical context for interpretation. Performed By: #### U HCG #### [facility] (DEFAULT) [address] [place] [address] 20209 Urine Chloride 66 mmol/L Normal [facility] Comment on above: Order Comment: The r eference range has not been established for random urine specimens. The test result should be integrated into the clinical context for interpretation. Performed By: #### U HCG #### [facility] (DEFAULT) [address] [address] Urine Potassium 23.1 mmol/L Normal [facility] Comment on above: Order Comment: The r eference range has not been established for random urine specimens. The test result should be integrated into the clinical context for interpretation. Performed By: #### U HCG #### [facility] (DEFAULT) [address] [place] [address] 01296 OSMOLALITY, URINEon 09-20-20 23 Osmolality, Urine 264 mOsm/kg Low 300-900 [facility] Comment on above: Performed By: #### U HCG #### [facility] (DEFAULT) [address] [place] [address] 37086 SEDIMENTATION RATE, AUTOMATE Don 09-20-2023 ESR Westergren 134 mm/hr High <30 [facility] Comment on above: Performed By: #### E SR #### [facility] (DEFAULT) [address] [place] [address] 94221 T4 FREEon 09-20-2023 Free T4 [Mass/Vol] 1.17 ng/dL Normal 0.89-1.76 [facility] Comment on above: Performed By: #### V ANCTR #### [facility] (DEFAULT) [address] [place] [address] 20193 TSH W/FT4 REFLEXon 3 TSH 6.456 uIU/mL High 0.550-4.780 [facility] Comment on above: Performed By: #### B LDCULT #### [facility] (DEFAULT) [address] [place] [address] 30033 VANCOMYCIN LEVEL, TROUGH (MA E DRUG LEVEL)on 09-20-2023 Vancomycin, Trough 25.8 mcg/mL Critically high Therap eutic Range: 10.0-20.0 mcg/mL [facility] Comment on above: Order Comment: Pleas e draw level at specified interval PRIOR to next dose. Performed By: #### V ANCTR #### [facility] (DEFAULT) [address] [place] [address] 45539 BLOOD CULTUREon 09-19-2023 Bacteria identified Cx Nom (Unsp spec) NO GROWTH DAY 5 OF 5 Normal [facility] Comment on above: Order Comment: 2 [...] bottle. Performed By: #### U HCG #### [facility] (DEFAULT) [address] [address] C REACTIVE PROTEINon 023 CRP [Mass/Vol] 137.95 mg/L High <10.00 [facility] Comment on above: Performed By: #### B LDCULT #### [facility] (DEFAULT) [address] [address] CALCIUMon 09-19-2023 Calcium [Mass/Vol] 8.4 mg/dL Low 8.6-10.5 [facility] Comment on above: Performed By: #### B LDCULT #### [facility] (DEFAULT) [address] [address] CBC AND ELECTRONIC DIFFon Abs Baso Auto < Normal 0.00-0.15 [facility] Comment on above: Performed By: #### V ANCTR #### [facility] (DEFAULT) [address] [address] Basophils/100 WBC (Bld) 0.3 % Normal O [facility] Comment on above: Performed By: #### V ANCTR #### [facility] (DEFAULT) [address] [address] DIFF STATUS Electronic Differential Normal [facility] Comment on above: Performed By: #### V ANCTR #### [facility] (DEFAULT) [address] [address] Eosinophils (Bld) [#/Vol] 0.11 10*3/uL Normal 0.00-0.42 [facility] Comment on above: Performed By: #### V ANCTR #### [facility] (DEFAULT) [address] [address] Eosinophils/100 WBC (Bld) 1.4 % Normal [facility] Comment on above: Performed By: #### V ANCTR #### [facility] (DEFAULT) [address] [place] [address] 43919 Hematocrit (Bld) [Volume fraction] 23.9 % Low 34.9-44.3 [facility] Comment on above: Performed By: #### V ANCTR #### [facility] (DEFAULT) [address] [place] [address] 80577 Hemoglobin (Bld) [Mass/Vol] 7.5 g/dL Low 11.4-15.2 [facility] Comment on above: Performed By: #### V ANCTR #### [facility] (DEFAULT) [address] [address] Immature Grans % 1.7 % Normal [facility] Comment on above: Performed By: #### V ANCTR #### [facility] (DEFAULT) [address] [place] [address] 38661 Immature Grans Absolute 0.13 K/uL High <=0.08 O [facility] Comment on above: Performed By: #### V ANCTR #### [facility] (DEFAULT) [address] [place] [address] 41826 Lymphocytes (Bld) [#/Vol] 1.37 10*3/uL Normal 1.16-3.51 [facility] Comment on above: Performed By: #### V ANCTR #### [facility] (DEFAULT) [address] [place] [address] 85778 Lymphocytes/100 WBC (Bld) 17.7 % Normal [facility] Comment on above: Performed By: #### V ANCTR #### [facility] (DEFAULT) [address] [place] [address] 86410 MCV (RBC) [Entitic vol] 88.5 fL Normal 79.6-97.7 O [facility] Comment on above: Performed By: #### V ANCTR #### [facility] (DEFAULT) [address] [place] [address] 17281 Mean Cell Hgb 27.8 pg Normal 25.9-33.9 [facility] Comment on above: Performed By: #### V ANCTR #### [facility] (DEFAULT) [address] [place] [address] 75874 Mean Cell Hgb Conc 31.4 g/dL Normal 31.4-35.9 [facility] Comment on above: Performed By: #### V ANCTR #### [facility] (DEFAULT) [address] [address] Monocytes (Bld) [#/Vol] 0.77 10*3/uL Normal 0.22-0.87 [facility] Comment on above: Performed By: #### V ANCTR #### [facility] (DEFAULT) [address] [place] [address] 22076 Monocytes/100 WBC (Bld) 9.9 % Normal O [facility] Comment on above: Performed By: #### V ANCTR #### [facility] (DEFAULT) [address] [address] Nucleated RBC 0.0 /100 WBC Normal <=0.2 [facility] Comment on above: Performed By: #### V ANCTR #### [facility] (DEFAULT) [address] [place] [address] 13615 Platelet mean volume (Bld) [Entitic vol] 10.0 fL Normal 8.5-12.2 [facility] Comment on above: Performed By: #### V ANCTR #### [facility] (DEFAULT) [address] [address] Platelets (Bld) [#/Vol] 627 10*3/uL High 150-393 [facility] Comment on above: Performed By: #### V ANCTR #### [facility] (DEFAULT) [address] [place] [address] 38306 RBC (Bld) [#/Vol] 2.70 10*6/uL Low 3.91-5.04 [facility] Comment on above: Performed By: #### V ANCTR #### [facility] (DEFAULT) [address] [place] [address] 52347 RBC Distribution 15.6 % High 10.8-14.9 [facility] Comment on above: Performed By: #### V ANCTR #### [facility] (DEFAULT) [address] [place] [address] 10664 Segs + Bands Auto 69.0 % Normal [facility] Comment on above: Performed By: #### V ANCTR #### [facility] (DEFAULT) [address] [address] Segs + Bands,Absolute Auto 5.34 K/uL Normal 1.64-7.28 [facility] Comment on above: Performed By: #### V ANCTR #### [facility] (DEFAULT) [address] [place] [address] 27806 WBC (Bld) [#/Vol] 7.74 10*3/uL Normal 3.99-11.19 [facility] Comment on above: Performed By: #### V ANCTR #### [facility] (DEFAULT) [address] [address] CBC,PLATELETSon 09-19-2023 Hematocrit (Bld) [Volume fraction] 27.2 % Low 34.9-44.3 [facility] Comment on above: Performed By: #### C HM7, MGO #### [facility] (DEFAULT) [address] [address] Hemoglobin (Bld) [Mass/Vol] 8.9 g/dL Low 11.4-15.2 [facility] Comment on above: Performed By: #### C HM7, MGO #### [facility] (DEFAULT) [address] [place] [address] 98005 MCV (RBC) [Entitic vol] 88.0 fL Normal 79.6-97.7 O [facility] Comment on above: Performed By: #### C HM7, MGO #### [facility] (DEFAULT) [address] [place] [address] 31581 Mean Cell Hgb 28.8 pg Normal 25.9-33.9 [facility] Comment on above: Performed By: #### C HM7, MGO #### [facility] (DEFAULT) [address] [place] [address] 94054 Mean Cell Hgb Conc 32.7 g/dL Normal 31.4-35.9 [facility] Comment on above: Performed By: #### C HM7, MGO #### [facility] (DEFAULT) [address] [place] [address] 18037 Platelet mean volume (Bld) [Entitic vol] 10.5 fL Normal 8.5-12.2 [facility] Comment on above: Performed By: #### C HM7, MGO #### [facility] (DEFAULT) [address] [place] [address] 62262 Platelets (Bld) [#/Vol] 671 10*3/uL High 150-393 [facility] Comment on above: Performed By: #### C HM7, MGO #### [facility] (DEFAULT) [address] [place] [address] 76041 RBC (Bld) [#/Vol] 3.09 10*6/uL Low 3.91-5.04 [facility] Comment on above: Performed By: #### C HM7, MGO #### [facility] (DEFAULT) [address] [place] [address] 02490 RBC Distribution 15.9 % High 10.8-14.9 [facility] Comment on above: Performed By: #### C HM7, MGO #### [facility] (DEFAULT) [address] [place] [address] 94482 WBC (Bld) [#/Vol] 9.62 10*3/uL Normal 3.99-11.19 [facility] Comment on above: Performed By: #### C HM7, MGO #### [facility] (DEFAULT) [address] [place] [address] 26717 CHEM 7 (LYTES,BUN,CREA,GLUC) on 09-19-2023 Anion gap [Moles/Vol] 17 mmol/L Normal 7-17 [facility] Comment on above: Performed By: #### C HM7, MGO #### [facility] (DEFAULT) [address] [place] [address] 97011 Chloride [Moles/Vol] 90 mmol/L Low 98-108 [facility] Comment on above: Performed By: #### C HM7, MGO #### [facility] (DEFAULT) [address] [place] [address] 78982 CO2 [Moles/Vol] 24 mmol/L Normal 21-31 [facility] Comment on above: Performed By: #### C HM7, MGO #### [facility] (DEFAULT) [address] [place] [address] 33794 Creatinine [Mass/Vol] 0.66 mg/dL Normal 0.50-1.20 [facility] Comment on above: Performed By: #### C HM7, MGO #### [facility] (DEFAULT) [address] [place] [address] 40026 eGFR, CKD-EPI, Female > Normal >=60 [facility] Comment on above: Result Comment: Repo rted eGFR is based on the CKD-EPI 2020 equation using creatinine, age, and sex. Performed By: #### C HM7, MGO #### [facility] (DEFAULT) [address] [place] [address] 46451 Glucose [Mass/Vol] 99 mg/dL Normal 70-99 [facility] Comment on above: Performed By: #### C HM7, MGO #### [facility] (DEFAULT) [address] [place] [address] 01219 Osmolality [Osmolality] 268 mosm/kg Low 278-305 [facility] Comment on above: Performed By: #### C HM7, MGO #### [facility] (DEFAULT) [address] [place] [address] 81300 Potassium [Moles/Vol] 5.3 mmol/L High 3.5-5.0 [facility] Comment on above: Result Comment: Slig htly hemolyzed Performed By: #### C HM7, MGO #### [facility] (DEFAULT) [address] [place] [address] 06150 Sodium [Moles/Vol] 126 mmol/L Low 135-145 [facility] [facility] Comment [facility] above: Performed By: #### Martir HM7, MGO #### [facility] (DEFAULT) [address] [place] [address] 72769 Urea nitrogen [Mass/Vol] 11 mg/dL Normal 7-25 [facility] Comment on above: Performed By: #### Martir HM7, MGO #### [facility] (DEFAULT) [address] [place] [address] 74114 Urea nitrogen/Creatinine [Mass ratio] 17 mg/mg Normal [facility] Comment on above: Performed By: #### Martir HM7, MGO #### [facility] (DEFAULT) [address] [place] [address] 28258 Anion gap [Moles/Vol] 15 mmol/L Normal 7-17 [facility] Comment on above: Performed By: #### B LDCULT #### [facility] (DEFAULT) [address] [place] [address] 85545 Chloride [Moles/Vol] 94 mmol/L Low 98-108 [facility] Comment on above: Performed By: #### B LDCULT #### [facility] (DEFAULT) [address] [place] [address] 32236 CO2 [Moles/Vol] 27 mmol/L Normal 21-31 [facility] Comment on above: Performed By: #### B LDCULT #### [facility] (DEFAULT) [address] [place] [address] 98908 Creatinine [Mass/Vol] 0.61 mg/dL Normal 0.50-1.20 [facility] Comment on above: Performed By: #### B LDCULT #### [facility] (DEFAULT) [address] [place] [address] 36279 eGFR, CKD-EPI, Female > Normal >=60 [facility] Comment on above: Result Comment: Repo rted eGFR is based on the CKD-EPI 2020 equation using creatinine, age, and sex. Performed By: #### B LDCULT #### [facility] (DEFAULT) [address] [place] [address] 51550 Glucose [Mass/Vol] 116 mg/dL High 70-99 [facility] Comment on above: Performed By: #### B LDCULT #### [facility] (DEFAULT) [address] [place] [address] 30908 Osmolality [Osmolality] 277 mosm/kg Low 278-305 [facility] Comment on above: Performed By: #### B LDCULT #### [facility] (DEFAULT) [address] [place] [address] 85973 Potassium [Moles/Vol] 4.6 mmol/L Normal 3.5-5.0 [facility] Comment on above: Performed By: #### B LDCULT #### [facility] (DEFAULT) [address] [place] [address] 36846 Sodium [Moles/Vol] 131 mmol/L Low 135-145 [facility] Comment on above: Performed By: #### B LDCULT #### [facility] (DEFAULT) [address] [place] [address] 17647 Urea nitrogen [Mass/Vol] 9 mg/dL Normal 7-25 [facility] Comment on above: Performed By: #### B LDCULT #### [facility] (DEFAULT) [address] [place] [address] Urea nitrogen/Creatinine [Mass ratio] 15 mg/mg Normal [facility] Comment on above: Performed By: #### B LDCULT #### [facility] (DEFAULT) [address] [place] [address] HEPATIC FUNCTION PANELon Albumin [Mass/Vol] 2.5 g/dL Low 3.5-5.0 [facility] Comment on above: Performed By: #### B LDCULT #### [facility] (DEFAULT) [address] [place] [address] ALP [Catalytic activity/Vol] 152 U/L High 32-126 [facility] Comment on above: Performed By: #### B LDCULT #### [facility] (DEFAULT) [address] [place] [address] ALT [Catalytic activity/Vol] 16 U/L Normal 9-48 [facility] Comment on above: Performed By: #### B LDCULT #### [facility] (DEFAULT) [address] [place] [address] 39039 AST [Catalytic activity/Vol] 25 U/L Normal 10-39 [facility] Comment on above: Performed By: #### B LDCULT #### [facility] (DEFAULT) [address] [place] [address] Bilirubin [Mass/Vol] 0.4 mg/dL Normal <1.5 [facility] Comment on above: Performed By: #### B LDCULT #### [facility] (DEFAULT) [address] [place] [address] 84711 Bilirubin.indirect [Mass/Vol] 0.1 mg/dL Normal <0.3 [facility] Comment on above: Performed By: #### B LDCULT #### [facility] (DEFAULT) [address] [place] [address] Protein [Mass/Vol] 6.2 g/dL Low 6.4-8.3 [facility] Comment on above: Performed By: #### B LDCULT #### [facility] (DEFAULT) [address] [place] [address] 60311 HEPATITIS BATTERY, CHRONICon 09-19-2023 Hep B Core Ab,Total (IgG+IgM) Negative Normal Negative [facility] Comment on above: Performed By: #### C HM7, MGO #### [facility] (DEFAULT) [address] [place] [address] 10590 Hep B Surface Ab Negative Normal Negative [facility] Comment on above: Performed By: #### C HM7, MGO #### [facility] (DEFAULT) [address] [place] [address] 18937 Hepatitis B Surface Ag Negative Normal Negative [facility] Comment on above: Performed By: #### C HM7, MGO #### [facility] (DEFAULT) [address] [place] [address] 31925 Hepatitis C Antibody Negative Normal Negative [facility] Comment on above: Performed By: #### C HM7, MGO #### [facility] (DEFAULT) [address] [place] [address] 86465 IMMUNOGLOBULINS IGG IGA IGMo n 09-19-2023 IgA [Mass/Vol] 246 mg/dL Normal 66-433 [facility] Comment on above: Performed By: #### B LDCULT #### [facility] (DEFAULT) [address] [place] [address] 44976 IgG [Mass/Vol] 1357 mg/dL Normal 600-1714 [facility] Comment on above: Performed By: #### B LDCULT #### [facility] (DEFAULT) [address] [place] [address] 87742 IgM [Mass/Vol] 102 mg/dL Normal 45-281 [facility] Comment on above: Performed By: #### B LDCULT #### [facility] (DEFAULT) [address] [place] [address] 70421 MAGNESIUMon 09-19-2023 Magnesium [Mass/Vol] 2.1 mg/dL Normal 1.6-2.6 [facility] Comment on above: Result Comment: Luci rosario hemolyzed Performed By: #### C HM7, MGO #### [facility] (DEFAULT) [address] [place] [address] MRI SPINE CERVICAL WITH AND WITHOUT CONTRASTon 09-19-2023 MRI SPINE CERVICAL WITH AND WITHOUT CONTRAST EXAM: MRI SPINE CERVICAL WITH AND WITHOUT CONTRAST, MRI SPINE THORACIC WITH AND WITHOUT CONTRAST, MRI SPINE LUMBAR WITH AND WITHOUT CONTRAST, 09/19/2023 06:27 AM (accession [id number]), 09/19/2023 06:29 AM (accession [id number]), 09/19/2023 06:28 AM (accession [id number]) COMPARISON: Recent outside cervical and thoracic CT [...] thoracic osteomyelitis (more content not included)... Normal [facility] MRI SPINE LUMBAR WITH AND WI THOUT CONTRASTon 09-19-2023 MRI SPINE LUMBAR WITH AND WITHOUT CONTRAST EXAM: MRI SPINE CERVICAL WITH AND WITHOUT CONTRAST, MRI SPINE THORACIC WITH AND WITHOUT CONTRAST, MRI SPINE LUMBAR WITH AND WITHOUT CONTRAST, 09/19/2023 06:27 AM (accession [id number]), 09/19/2023 06:29 AM (accession [id number]), 09/19/2023 06:28 AM (accession [id number]) COMPARISON: Recent outside cervical and thoracic CT [...] thoracic osteomyelitis (more content not included)... Normal [facility] MRI SPINE THORACIC WITH AND WITHOUT CONTRASTon 09-19-2023 MRI SPINE THORACIC WITH AND WITHOUT CONTRAST EXAM: MRI SPINE CERVICAL WITH AND WITHOUT CONTRAST, MRI SPINE THORACIC WITH AND WITHOUT CONTRAST, MRI SPINE LUMBAR WITH AND WITHOUT CONTRAST, 09/19/2023 06:27 AM (accession [id number]), 09/19/2023 06:29 AM (accession [id number]), 09/19/2023 06:28 AM (accession [id number]) COMPARISON: Recent outside cervical and thoracic CT [...] thoracic osteomyelitis (more content not included)... Normal [facility] PHOSPHATE, INORGANICon 09-19 Phosphorous 5.2 mg/dL High 2.2-4.6 [facility] Comment on above: Result Comment: Slig htly hemolyzed Performed By: #### C HM7, MGO #### [facility] (DEFAULT) [address] [address] PT,INR,PTTon 09-19-2023 aPTT Coag (Bld) [Time] 36.5 s High 24.0-34.3 [facility] Comment on above: Performed By: #### V ANCTR #### [facility] (DEFAULT) [address] [place] [address] 22108 INR Coag (PPP) [Relative time] 1.3 {INR} High 0.9-1.1 [facility] Comment on above: Performed By: #### V ANCTR #### [facility] (DEFAULT) [address] [place] [address] 20151 PT Coag (PPP) [Time] 15.6 s High 11.9-14.2 [facility] Comment on above: Performed By: #### V ANCTR #### [facility] (DEFAULT) [address] [place] [address] 40272 Social Work Daily Noteon Social Work Daily Note [facility] Telegraph Service Rater Patient: GEOVANNY MEJÍA. : 1970 [place], [place] [address] Location: [phone] Unit #: [id number] Social Work Daily Note Jacqueline Edwards MECHANICAL MANUFACTURING TECHNICIAN, DOOR TO DOOR FUNDRAISING COLLECTOR Service Date: 09/19/23 Daily Note - * [...] rehab. pt is needing to transfer her [facility] medicaid dual plan. SW got a copy of pts card, pt was unable to move much and couldnt sit up, she needed SW assistance to get her insurance card out of her wallet. Nurse LENY Hickey called with pt on Friday to transfer the Medicare portion. The Medicaid portion needs cancelled and re-submitted for [place] Medicaid for pts county she will be living in. SW made contact with [facility] for assistance and to re-submit pts medicaid vilma. Pt would like a facility near her cousin ursula's house. There are looking at [facility] in [place], and [facility]. SW made contact with [facility] and they are not in network with [facility]. [facility] is in Network. SW follow up with pts cousin via phone as she would like her to help with finding a long term. Per Ursula there is another facility near her [facility]. SW made contact with [facility], they are in network with [facility], Per there admissions person Emmanuel they would be willing to bring pt in with a pending Medicaid number, per Emmanuel both Medicare and Medicaid would need transfered. Referral sent to [place] for review. Marisol from [facility] to meet with pt. MANOLO to also meet back to assist with canceling [place] Medicaid if Marisol has not been able to assist pt. Soft Shoe Dancer: Jacqueline Edwards, MECHANICAL MANUFACTURING TECHNICIAN, DOOR TO DOOR FUNDRAISING COLLECTOR Day 2 Note: 09/15/23 MANOLO met back with pt, pt was asleep but easily aroused. MANOLO explained to pt that we needed to terminate her [place] Medicaid before submitting an application for [place] Medicaid and this needed to be initiated prior to her Dcing to a SNF. MANOLO called [facility] and had to leave a requesting that they call pt back to so that pt could terminate her [place] Medicaid there and give her new address and county. Soft Shoe Dancer: Jerry,MARY Vargas MSW Day 3 Note: 09/16/23 Pt transfer pending for another hospital. Referral was sent to two SNFS, [facility] was able to accept, [facility] was reviewing. Both pt and pt cousin Ursula aware of possible transfer out, but know SNF is still the back up plan, they can also follow back when pt Dcs from other setting and still requires a skilled stay. [facility] initiated a Medicaid application for pt. [place] Medicaid Application/pending number forward to [facility] if needed for transfer out. Pts cousin Ursula shared with that she heard that pt may have a history of substance abuse and this could be contributing to her current condition. SW unsure of this and encouraged her to speak with physician about this when she is next here visiting with pt. Soft Shoe Dancer: Jacqueline Edwards LSW, MSW Day 4 Note: 09/19/23 Pt was transfered to [facility], assisted referrals updated. SW signing off. Soft Shoe Dancer: Jacqueline Edwards LSW, MSW - * Requested Intvs/Referrals * Knit Goods Washer Referrals: SNF/LTAC Placement Soft Shoe Dancer I Referrals: Financial Issues/Medicaid Applications - * HEALTHCARE DECISIONS * Living Will: Unknown Durable Power of Textile Designer for Health Care: Unknown [facility] [place] DNR Comfort Care: Unknown [place] DNR Comfort Care Arrest: Unknown - Home Health/IV Infusion/Wound Vac Home Health Referral Indicated: Yes Home Health List Provided: Yes Indication for Home Health: Wound Care, Other Patient's Response: Yes Home Health Agencies: [facility] Patient given options to view quality scores of facility?: No Entered by: MARY Rodriguez MSW on 09/19/237 Report Signed by: LORNA Ovalle on 09/19/231107 < > Report Signed by: on Normal [facility] Albumin [Mass/volume] in Ser um or PlasmaOrdered By: Troy Garber on 09-18-2023 Albumin [Mass/Vol] 2.5 g/dL Low 3.5-5.0 [facility] Basophils Auto (Bld) [#/Vol] Ordered By: Troy Garber on 09-18-2023 Basophils (Bld) [#/Vol] 100 /cmm 0-200 L [facility] Basophils/100 WBC Auto (Bld) Ordered By: Tryo Garber on 09-18-2023 Basophils/100 WBC (Bld) 0.7 % 0-2 L [facility] [place] [facility] Blood Cultureon 09-18-2023 Bacteria identified Cx Nom (Bld) No growth after 5 days. Normal [facility] Comment on above: Performed By: #### M 110.0050 #### [facility] ([facility]) [address] [place] [address] Drew Granger MD Performed By: #### L 100.0050 #### [facility] ([facility]) [address] [place] [address] Drew Granger MD Blood anion gapOrdered By: Martir Garber on 09-18-2023 Anion gap (Bld) [Moles/Vol] 6 mmol/L 4-12 [facility] Blood coagulation panelOrder ed By: Troy Garber on 09-18-2023 Blood coagulation panel 100 /cmm 0-500 L [facility] [place] [facility] Blood hematocrit (volume fra ction)Ordered By: Troy Garber on 09-18-2023 Hematocrit (Bld) [Volume fraction] 24.2 % Low 35.0-44.0 [facility] Blood hemoglobin measurement (mass/volume)Ordered By: Troy Garber on 09-18-2023 Hemoglobin (Bld) [Mass/Vol] 8.2 g/dL Low 12.0-15.0 [facility] CBC with Differentialon 08-25 Abs Baso Count 100 /cmm Normal 0-200 [facility] Comment on above: Performed By: #### M 140.0200 #### [facility] ([facility]) [address] [place] [id number] Drew Granger MD Abs Eos Count 100 /cmm Normal 0-500 [facility] Comment on above: Performed By: #### M 140.0200 #### [facility] ([facility]) [address] [place] [id number] Drew Granger MD Abs Lymph Count 1100 /cmm Normal 1517-6487 [facility] Comment on above: Performed By: #### M 140.0200 #### [facility] ([facility]) [address] [place], [place] [address] Drew Granger MD Abs Nash Count 600 /cmm Normal 0-800 [facility] Comment on above: Performed By: #### M 140.0200 #### [facility] ([facility]) [address] [place], [place] [address] Drew Granger MD Abs Neut Count 7600 /cmm Normal 5096-4458 [facility] Comment on above: Performed By: #### M 140.0200 #### [facility] ([facility]) [address] [place], [place] [address] Drew Granger MD Basophils/100 WBC (Bld) 0.7 % Normal 0-2 L [facility] [place] [facility] Comment on above: Performed By: #### M 140.0200 #### [facility] ([facility]) [address] [place], [place] [address] Drew Granger MD EOS-Auto Diff 0.8 % Normal 0-6 [facility] Comment on above: Performed By: #### M 140.0200 #### [facility] ([facility]) [address] [place], [place] [address] Drew Granger MD Erythrocyte distribution width (RBC) [Ratio] 16.1 % High 12.0-16.0 [facility] Comment on above: Performed By: #### M 140.0200 #### [facility] ([facility]) [address] [place], [place] [address] Drew Granger MD Hematocrit (Bld) [Volume fraction] 24.2 % Low 35.0-44.0 [facility] Comment on above: Performed By: #### M 140.0200 #### [facility] ([facility]) [address] [place], [facility] Drew Granger MD Hemoglobin (Bld) [Mass/Vol] 8.2 g/dL Low 12.0-15.0 [facility] Comment on above: Performed By: #### M 140.0200 #### [facility] ([facility]) [address] [place], [facility] Drew Granger MD Lymphocytes/100 WBC (Bld) 11.7 % Low 15-45 [facility] Comment on above: Performed By: #### M 140.0200 #### [facility] ([facility]) [address] [place], [place] [address] Drew Granger MD MCH (RBC) [Entitic mass] 29.1 pg Normal 27.5-33.0 [facility] Comment on above: Performed By: #### M 140.0200 #### [facility] ([facility]) [address] [place], [place] [address] Drew Granger MD MCHC (RBC) [Mass/Vol] 33.9 g/dL Normal 33.0-36.0 [facility] Comment on above: Performed By: #### M 140.0200 #### [facility] ([facility]) [address] [place], [facility] Drew Granger MD MCV 85.6 CU [place] Normal 80-97 [facility] Comment on above: Performed By: #### M 140.0200 #### [facility] ([facility]) [address] [place], [facility] Drew Granger MD Nash- Auto Diff 6.7 % Normal 2-10 [facility] Comment on above: Performed By: #### M 140.0200 #### [facility] ([facility]) [address] [place], [facility] Drew Granger MD Neut-Auto Diff 80.1 % High 40-70 [facility] Comment on above: Performed By: #### M 140.0200 #### [facility] ([facility]) [address] [place] [address] Drew Granger MD NRBC-Auto 0.0 /100 WBC Normal <1 [facility] Comment on above: Performed By: #### M 140.0200 #### [facility] ([facility]) [address] [place] [address] Drew Granger MD Platelet Count 669 th/cmm High 150-400 [facility] Comment on above: Performed By: #### M 140.0200 #### [facility] ([facility]) [address] [place] [address] Drew Granger MD RBC 2.82 mil/cmm Low 4.00-5.10 [facility] Comment on above: Performed By: #### M 140.0200 #### [facility] ([facility]) [address] [place] [address] Drew Granger MD WBC 9.5 th/cmm Normal 4.4-10.5 [facility] Comment on above: Performed By: #### M 140.0200 #### [facility] ([facility]) [address] [place] [address] Drew Granger MD Abs Baso Count 200 /cmm Normal 0-200 [facility] Comment on above: Performed By: #### L 600.6150 #### [facility] ([facility]) [address] [place] [address] Drew Granger MD Abs Eos Count 100 /cmm Normal 0-500 [facility] Comment on above: Performed By: #### L 600.6150 #### [facility] ([facility]) [address] [place] [address] Drew Granger MD Abs Lymph Count 1300 /cmm Normal 3054-7053 [facility] Comment on above: Performed By: #### L 600.6150 #### [facility] ([facility]) [address] [place] [address] Drew Granger MD Abs Nash Count 700 /cmm Normal 0-800 [facility] Comment on above: Performed By: #### L 600.6150 #### [facility] ([facility]) [address] [place], [facility] Drew Granger MD Abs Neut Count 6800 /cmm Normal 9878-9355 [facility] Comment on above: Performed By: #### L 600.6150 #### [facility] ([facility]) [address] [place], [place] [address] Drew Granger MD Basophils/100 WBC (Bld) 2.1 % High 0-2 L [facility] [place] [facility] Comment on above: Performed By: #### L 600.6150 #### [facility] ([facility]) [address] [place], [facility] Drew Granger MD EOS-Auto Diff 1.1 % Normal 0-6 [facility] Comment on above: Performed By: #### L 600.6150 #### [facility] ([facility]) [address] [place], [place] [address] Drew Granger MD Erythrocyte distribution width (RBC) [Ratio] 16.1 % High 12.0-16.0 [facility] Comment on above: Performed By: #### L 600.6150 #### [facility] ([facility]) [address] [place], [facility] Drew Granger MD Hematocrit (Bld) [Volume fraction] 23.5 % Low 35.0-44.0 [facility] Comment on above: Performed By: #### L 600.6150 #### [facility] ([facility]) [address] [place], [facility] Drew Granger MD Hemoglobin (Bld) [Mass/Vol] 7.8 g/dL Low 12.0-15.0 [facility] Comment on above: Performed By: #### L 600.6150 #### [facility] ([facility]) [address] [place] [address] Drew Granger MD Lymphocytes/100 WBC (Bld) 14.8 % Low 15-45 [facility] Comment on above: Performed By: #### L 600.6150 #### [facility] ([facility]) [address] [place], [place] [address] Drew Granger MD MCH (RBC) [Entitic mass] 28.6 pg Normal 27.5-33.0 [facility] Comment on above: Performed By: #### L 600.6150 #### [facility] ([facility]) [address] [place] [address] Drew Granger MD MCHC (RBC) [Mass/Vol] 33.4 g/dL Normal 33.0-36.0 [facility] Comment on above: Performed By: #### L 600.6150 #### [facility] ([facility]) [address] [place] [address] Drew Granger MD MCV 85.6 CU [place] Normal 80-97 [facility] Comment on above: Performed By: #### L 600.6150 #### [facility] ([facility]) [address] [place] [address] Drew Granger MD Nash- Auto Diff 7.4 % Normal 2-10 [facility] Comment on above: Performed By: #### L 600.6150 #### [facility] ([facility]) [address] [place] [address] Drew Granger MD Neut-Auto Diff 74.6 % High 40-70 [facility] Comment on above: Performed By: #### L 600.6150 #### [facility] ([facility]) [address] [place] [address] Drew Granger MD NRBC-Auto 0.0 /100 WBC Normal <1 [facility] Comment on above: Performed By: #### L 600.6150 #### [facility] ([facility]) [address] [place] [address] Drew Granger MD Platelet Count 594 th/cmm High 150-400 [facility] Comment on above: Performed By: #### L 600.6150 #### [facility] ([facility]) [address] [place] [address] Drew Granger MD RBC 2.74 mil/cmm Low 4.00-5.10 [facility] Comment on above: Performed By: #### L 600.6150 #### [facility] ([facility]) [address] [place] [address] Drew Granger MD WBC 9.1 th/cmm Normal 4.4-10.5 [facility] Comment on above: Performed By: #### L 600.6150 #### [facility] [facility] [address] [place] [address] Drew Granger MD Case Management Daily Noteon 09-18-2023 Case Management Daily Note [facility] Case Management Patient: GEOVANNY MEJÍA [address] : 1970 [place] [address] Location: [facility] [phone] Unit #: [id number] Case Management Daily Note Kait Still Service Date: 09/18/23 Case Mgmt Daily Note - Plan of Care Toy Assembly Supervisor Agrees with Attending and Consult Plan: Yes [...] patient in the room. Patient is from [place]. She is up here to visit her sister. Patient reporting she is normally independent. Does not have a PCP. Patient would like to use [facility] OP Pharm for meds. Planning to have her cousin pick her up at d/c. Contact is her cousin Ursula. Denies having LW/dPOA. Toy Assembly Supervisor: Evelyne Pena, RN Day 2 Comment: 09/09 Met with patient in the room. Patient asking to get up and move around. PT/OT to evde. S/p L ABD drain placement. Patient agreeable to [facility] for drain mgmt if needed. Reporting she will be going to [facility] at d/c to stay with her cousin Ursula. CM spoke with patients cousin Ursula via telephone who reports she is ok with [facility] coming to her home if patient would go there at d/c. Ursula reporting patient was homeless in [place] and recently move to [place] with her sister Monique. Toy Assembly Supervisor: Evelyne Pena, RN Day 3 Comment: 09/10 D/c needs pending medical course. Jr present. Dilaudid CAP MAKER. PT/OT. ID c/s. Therapy recs for IPR vs OP PT. Will follow to assist with d/c needs. Toy Assembly Supervisor: Evelyne Pena, RN Day 4 Comment: 09/11 Met with patient in the room who is planning to d/c to her cousin Gena lutz in [place], [place]. Patient is agreeable to [facility]. CM spoke with Ursula who is agreeable for patient to come there at d/c. Referral sent to [facility]. Await approval. CAP MAKER. ABD drain. NPO. ID c/s. PT/OT. Toy Assembly Supervisor: Evelyne Pena, RN Day 5 Comment: 09/12 Met with patient in the room to discuss d/c plan. Patient unable to move b/l LE. No sensation to RLE. Does have sesation to LLE. PT/OT recommending SNF, patient agreeable. She would like to go somewhere near her cousin Ursula in [place], [place]. CM assisted patient with changing her address with her [facility] insurance to an [place] address. SW c/s for SNF placement and GW[place] assist with [place]. Patient will need a precert. CAP MAKER continues. If patient would improve with mobility, she has been accepted to [facility]. CM spoke with Ursula via telephone to update. Toy Assembly Supervisor: Evelyne Pena, RN Day 6 Comment: 09/15- POD 2. CM spoke with patient at bedside. VSS. WBC 19.9. PT/OT rec SNF. Pt verbalized agreeable for SNF and would like [facility]. c/s AND reported that [facility] is not in network with pt insurance. MANOLO spoke w/ pt AND Lamin is now reviewing patient. Pt is awaiting the start of [facility] application with [facility] [employer] as current dual insurance is out of state. Pt will also require a precert when medically ready. CM following. Toy Assembly Supervisor: Dina Abebe Day 8 Comment: 09/15- POD [...] Attending noted plans to attempt transfer to [facility] AND if denied, to [facility], [facility] pt preferance. Transfer packet completed. CM following. @12:21- Nurse reported to CM that Dr Holt has declined to take pt, per [facility], AND that a message was relayed to the attending. @14:30- [employer] has assisted pt with completion of [place] [facility] vilma. CM faxing documentation to [facility] AND calling now to verify if they are able to accept pt with that. If unable, CM to fax AND verify w/ [facility]. If neither hospital is able to accept, attending plans to reach out to [facility]. @15:00- CM spoke with Shelby at [...] of network insurance. CM updated the attending. Toy Assembly Supervisor: Dina Abebe Day 10 Comment: 09/17- CM received perfect serve not (more content not included)... Normal [facility] Case Management General Note on 09-18-2023 Case Management General Note [facility] Case Management Patient: GEOVANNY MEJÍA [address] : 1970 [place], [place] [address] Location: [phone] Unit #: [id number] Case Management General Note Karime Lowery RN Service Date: 09/18/23 Case Management General Note - Note Note: I was updated that patient had received a bed at [facility]. Bed 888. Accepting physician Dr. Huff. I was asked to arrange air transport. 1730: CM contacted [employer]. Updated of approx arrival 1753P. Primary nursing, attending updated. Security and AOS updated. Paperwork faxed and placed on chart. Primary nurse reports she had updated patient and family. - Letter Delivered Was Position Statement Letter Delivered?: Yes Entered by: Karime Lowery on 09/18/231746 Report Signed by: Karime Lowery RN on 09/18/231753 < > Co-Signed by: on Normal [facility] Eosinophils/100 WBC Auto (Bl d)Ordered By: Troy Garber on 09-18-2023 Eosinophils/100 WBC (Bld) 0.8 % 0-6 [facility] Erythrocyte distribution wid th ratioOrdered By: Troy Garber on 09-18-2023 Erythrocyte distribution width (RBC) [Ratio] 16.1 % High 12.0-16.0 [facility] Ferritinon 09-18-2023 Ferritin [Mass/Vol] 347 ng/mL High 12-263 [facility] Comment on above: Performed By: #### L 400.0410 #### Main Laboratory ([facility]) [address] [place] [address] Drew Granger MD Iron Binding and Saturationo n 09-18-2023 % Iron Saturation 7 % Low 15-50 [facility] Comment on above: Performed By: #### M 140.0200 #### Main Laboratory ([facility]) [address] [place] [address] Drew Granger MD Iron, Serum 16 mcg/dL Low 28-170 [facility] Comment on above: Performed By: #### M 140.0200 #### Main Laboratory ([facility]) [address] [place] [address] Drew Granger MD Transferrin [Mass/Vol] 152 mg/dL Low 192-382 [facility] Comment on above: Performed By: #### M 140.0200 #### Main Laboratory ([facility]) [address] [place] [address] Drew Granger MD Lymphocytes/100 WBC Auto (Bl d)Ordered By: Troy Garber on 09-18-2023 Lymphocytes/100 WBC (Bld) 11.7 % Low 15-45 [facility] MCH Auto (RBC) [Entitic mass ]Ordered By: Troy Garber on 09-18-2023 MCH (RBC) [Entitic mass] 29.1 pg 27.5-33.0 [facility] MCHC Auto (RBC) [Mass/Vol]Or dered By: Troy Garber on 09-18-2023 MCHC (RBC) [Mass/Vol] 33.9 g/dL 33.0-36.0 [facility] MCV Auto (RBC) [Entitic vol] Ordered By: Troy Garber on 09-18-2023 MCV (RBC) [Entitic vol] 85.6 CU MILKA 80-97 [facility] MRI Cervical Spine w/wo Cont pedro 09-18-2023 MRI Cervical Spine w/wo Contr [facility] Radiology Department Patient: GEOVANNY MEJÍA[address] : 1970 Sex: Belinda [place] [address] Location: [phone] Unit #: [id number] Ordering Phys: Troy Garber MD Exam Date: 09/18/23 Exam: MRI MRI Cervical Spine w/wo Contr Result: See Report ADDENDUM: [id number] STUDY: MRI CERVICAL SPINE WITH AND WITHOUT [...] be sent when the communication is complete. [id number] STUDY: MRI CERVICAL SPINE WITH AND WITHOUT [...] Kwabena Yu, (more content not included)... Normal [facility] Magnesiumon 09-18-2023 Magnesium [Mass/Vol] 2.2 mg/dL Normal 1.8-2.5 [facility] Comment on above: Performed By: #### M 140.0200 #### Main Laboratory ([facility]) [address] [place] [address] Drew Granger MD Monocytes Auto (Bld) [#/Vol] Ordered By: Troy Garber on 09-18-2023 Monocytes (Bld) [#/Vol] 600 /cmm 0-800 L [facility] [place] [facility] Monocytes/100 WBC Auto (Bld) Ordered By: Troy Garber on 09-18-2023 Monocytes/100 WBC (Bld) 6.7 % 2-10 L [facility] [place] [facility] Neutrophils/100 WBC Auto (Bl d)Ordered By: Troy Garber on 09-18-2023 Neutrophils/100 WBC (Bld) 80.1 % High 40-70 [facility] No Panel InformationOrdered By: Troy Garber on 09-18-2023 Absolute Lymphocytes (auto) 1100 /cmm [id number] [facility] Absolute Neutrophils (auto) 7600 /cmm 8658-0305 [facility] Glomerular Filtration Rate Calc > 60 >60 [facility] Comment on above: AGE(years) AVERAGE G FR [...] RBC (Bld) [#/Vol] 0.0 /100 WBC <1 [facility] Platelets Auto (Bld) [#/Vol] Ordered By: Troy Garber on 09-18-2023 Platelets (Bld) [#/Vol] 669 th/cmm High 150-400 L [facility] [place] [facility] Progress Note - Bo hui 09-18-2023 Progress Note - Hospitalist [facility] Medical Records Patient: GEOVANNY MEJÍA [address] : 1970 [place], [place] [address] Location: [facility] [phone] Unit #: [id number] Progress Note - Hospitalist Troy Garber MD [...] [facility] upon converting her insurance to the [place] Medicaid. Currently she remains in-house awaiting a [...] prior to (more content not included)... Normal [facility] Progress Note Neurosurgeryon 09-18-2023 Progress Note Neurosurgery [facility] Medical Records Patient: GEOVANNY MEJÍA [address] : 1970 [place], [place] [address] Location: [facility] [phone] Unit #: [id number] Progress Note Neurosurgery Lucy Lara PA-C Service [...] diagnostic image (more content not included)... Normal [facility] RBC Auto (Bld) [#/Vol]Ordere d By: Troy Garber on 09-18-2023 RBC (Bld) [#/Vol] 2.82 mil/cmm Low 4.00-5.10 [facility] Renal Function Panelon 09-18 Albumin [Mass/Vol] 2.5 g/dL Low 3.5-5.0 [facility] Comment on above: Performed By: #### M 140.0200 #### Main Laboratory ([facility]) [address] [place] [address] Drew Granger MD Anion gap [Moles/Vol] 6 mmol/L Normal 4-12 [facility] Comment on above: Performed By: #### M 140.0200 #### Main Laboratory ([facility]) [address] [place] [address] Drew Granger MD Calcium [Mass/Vol] 8.30 mg/dL Low 8.8-10.5 [facility] Comment on above: Performed By: #### M 140.0200 #### Main Laboratory ([facility]) [address] [place] [address] Drew Granger MD Chloride [Moles/Vol] 94 mmol/L Low 101-111 [facility] Comment on above: Performed By: #### M 140.0200 #### Main Laboratory ([facility]) [address] [place] [address] Drew Granger MD CO2 [Moles/Vol] 28 mmol/L Normal 21-32 [facility] Comment on above: Performed By: #### M 140.0200 #### Main Laboratory ([facility]) [address] [place] [address] Drew Granger MD Creatinine [Mass/Vol] 0.50 mg/dL Low 0.60-1.30 [facility] Comment on above: Performed By: #### M 140.0200 #### Main Laboratory ([facility]) [address] [place] [address] Drew Granger MD GFR Calculation > 60 Normal [facility] Comment on above: Result Comment: Infant Caregiver dontrell Kidney Disease stages by NKDF Stage eGFR I >90 II 60-89 III 30-59 IV 15-29 V <15 or dialysis AGE(years) AVERAGE GFR 50-59 93 ml/min/1.73 square meters Note:This result is normalized to 1.73 square meter body surface area. Height and weight are not factored. Performed By: #### M 140.0200 #### Main Laboratory ([facility]) [address] [place] [address] Drew Granger MD Glucose [Mass/Vol] 113 mg/dL High 70-110 [facility] Comment on above: Performed By: #### M 140.0200 #### Main Laboratory ([facility]) [address] [place] [address] Drew Granger MD Phosphate [Mass/Vol] 4.6 mg/dL Normal 2.4-4.7 [facility] Comment on above: Performed By: #### M 140.0200 #### Main Laboratory ([facility]) [address] [place] [address] Drew rGanger MD Potassium [Moles/Vol] 4.1 mmol/L Normal 3.6-5.0 [facility] Comment on above: Performed By: #### M 140.0200 #### Main Laboratory ([facility]) [address] [place] [address] Drew Granger MD Sodium [Moles/Vol] 128 mmol/L Low 135-145 [facility] Comment on above: Performed By: #### M 140.0200 #### Main Laboratory ([facility]) [address] [place] [address] Drew Granger MD Urea nitrogen [Mass/Vol] 8 mg/dL Normal 7-20 [facility] Comment on above: Performed By: #### M 140.0200 #### Main Laboratory ([facility]) [address] [place] [address] Drew Granger MD Reticulocyte Counton 023 Reticulocyte Count 7.01 % High 0.90-2.60 [facility] Comment on above: Performed By: #### L 600.6150 #### Main Laboratory ([facility]) [facility] [place] [address] Drew Granger MD Reticulocytes/100 RBC Auto ( Bld)Ordered By: Troy Garber on 09-18-2023 Reticulocytes/100 RBC (Bld) 7.01 % High 0.90-2.60 [facility] Serum or plasma calcium tamera urement (mass/volume)Ordered By: Troy Garber on 09-18-2023 Calcium [Mass/Vol] 8.30 mg/dL Low 8.8-10.5 [facility] Serum or plasma carbon dioxi de, total measurement (moles/volume)Ordered By: Troy Garber on 09-18-2023 CO2 [Moles/Vol] 28 mmol/L 21-32 [facility] Serum or plasma chloride cici surement (moles/volume)Ordered By: rToy Garber on 09-18-2023 Chloride [Moles/Vol] 94 mmol/L Low 101-111 [facility] Serum or plasma creatinine m easurement (mass/volume)Ordered By: Troy Garber on 09-18-2023 Creatinine [Mass/Vol] 0.50 mg/dL Low 0.60-1.30 [facility] Serum or plasma ferritin cici surement (mass/volume)Ordered By: Troy Garber on 09-18-2023 Ferritin [Mass/Vol] 347 ng/mL High 12-263 [facility] Serum or plasma glucose tamera urement (mass/volume)Ordered By: Troy Garber on 09-18-2023 Glucose [Mass/Vol] 113 mg/dL High 70-110 [facility] Serum or plasma iron measure ment (mass/volume)Ordered By: Troy Garber on 09-18-2023 Iron [Mass/Vol] 16 ug/dL Low 28-170 [facility] Serum or plasma iron saturat ion measurement (mass fraction)Ordered By: Troy Garber on 09-18-2023 Iron saturation [Mass fraction] 7 % Low 15-50 [facility] Serum or plasma magnesium me asurement (mass/volume)Ordered By: Troy Garber on 09-18-2023 Magnesium [Mass/Vol] 2.2 mg/dL 1.8-2.5 [facility] Serum or plasma phosphate me asurement (mass/volume)Ordered By: Troy Garber on 09-18-2023 Phosphate [Mass/Vol] 4.6 mg/dL 2.4-4.7 [facility] Serum or plasma potassium me asurement (moles/volume)Ordered By: Troy Garber on 09-18-2023 Potassium [Moles/Vol] 4.1 mmol/L 3.6-5.0 [facility] Serum or plasma sodium measu rement (moles/volume)Ordered By: Troy Garber on 09-18-2023 Sodium [Moles/Vol] 128 mmol/L Low 135-145 [facility] Serum or plasma transferrin measurement (mass/volume)Ordered By: Troy Garber on 09-18-2023 Transferrin [Mass/Vol] 152 mg/dL Low 192-382 [facility] Serum or plasma urea nitroge n measurement (mass/volume)Ordered By: Troy Garber on 09-18-2023 Urea nitrogen [Mass/Vol] 8 mg/dL 7- [facility] Status Note/Updateon 023 Status Note/Update [facility] Medical Records Patient: GEOVANNY MEJÍA. : 1970 [place] [id number] Location: [facility] [phone] Unit #: [id number] Status Note/Update Valeriy Cantu Jr, DO Service Dt/Tm: 09/18/23 1523 Note: GEOVANNY [...] DO on 09/18/231522 Report Signed by: Valeriy Catnu Jr, MD on 09/18/23 1525 < > Report Signed by: on Normal [facility] Status Note/Update [facility] Medical Records Patient: GEOVANNY MEJÍA. : 1970 [place] [id number] Location: [address] [place] [address] Unit #: [id number] Status Note/Update Troy Garber MD Service Dt/Tm: 09/18/23 1523 Note: GEOVANNY MEJÍA [...] < > Report Signed by: on Normal [facility] Status Note/Update [facility] Medical Records Patient: GEOVANNY MEJÍA [address] : 1970 [place], [place] [address] Location: [phone] Unit #: [id number] Status Note/Update Alec Clemons MD Service Dt/Tm: [...] < > Report Signed by: on Normal [facility] Type and Screen(No Crossmatc h)on 09-18-2023 AB Screen (IAT) Negative Normal [facility] Comment on above: Performed By: #### B 100.0750 ####Main Laboratory ([facility])[address], [place] [phone] Nivar, MD ABO and Rh group Nom (Bld) Blood group O Rh(D) positive Normal [facility] Comment on above: Performed By: #### B 100.0750 ####Main Laboratory ([facility])[address] [place] [phone] Nivar, MD WBC Auto (Bld) [#/Vol]Ordere d By: Troy Garber on 09-18-2023 WBC (Bld) [#/Vol] 9.5 th/cmm 4.4-10.5 [facility] Wound cult/smr aer & anaon 1 Wound [...] hoxazole <=10 S Vancomycin <=0.5 S Normal [facility] Comment on above: Order Comment: Addit ional Instructions 1) Thoracic abscess Performed By: #### L 100.0050 #### Main Laboratory ([facility]) [address] [place] [address] Drew Granger MD CBC with Differentialon 08-25 Abs Baso Count 200 /cmm Normal 0-200 [facility] Comment on above: Performed By: #### L 100.0000 ####Main Laboratory ([facility])[address] [phone] Nivar, MD Abs Eos Count 100 /cmm Normal 0-500 [facility] Comment on above: Performed By: #### L 100.0000 ####Main Laboratory ([facility])[address] [phone] Nivar, MD Abs Lymph Count 1700 /cmm Normal 2246-0359 [facility] Comment on above: Performed By: #### L 100.0000 ####Main Laboratory ([facility])[address] [phone] Nivar, MD Abs Nash Count 600 /cmm Normal 0-800 [facility] Comment on above: Performed By: #### L 100.0000 ####Main Laboratory ([facility])[address] [phone] Nivar, MD Abs Neut Count 33560 /cmm High 4155-5804 [facility] Comment on above: Performed By: #### L 100.0000 ####Main Laboratory ([facility])[address] [phone] Nivar, MD Basophils/100 WBC (Bld) 1.8 % Normal 0-2 L [facility] [place] [facility] Comment on above: Performed By: #### L 100.0000 ####Main Laboratory ([facility])[address] [phone] Nivar, MD EOS-Auto Diff 0.6 % Normal 0-6 [facility] Comment on above: Performed By: #### L 100.0000 ####Main Laboratory ([facility])[address] [phone] Nivar, MD Erythrocyte distribution width (RBC) [Ratio] 16.1 % High 12.0-16.0 [facility] Comment on above: Performed By: #### L 100.0000 ####Main Laboratory ([facility])[address] [phone] Nivar, MD Hematocrit (Bld) [Volume fraction] 23.9 % Low 35.0-44.0 [facility] Comment on above: Performed By: #### L 100.0000 ####Main Laboratory ([facility])[address] [phone] Nivar, MD Hemoglobin (Bld) [Mass/Vol] 8.0 g/dL Low 12.0-15.0 [facility] Comment on above: Performed By: #### L 100.0000 ####Main Laboratory ([facility])[address] [place], [place] [phone] Nivar, MD Lymphocytes/100 WBC (Bld) 13.3 % Low 15-45 [facility] Comment on above: Performed By: #### L 100.0000 ####Main Laboratory ([facility])[address] [place] [place] [phone] Nivar, MD MCH (RBC) [Entitic mass] 29.0 pg Normal 27.5-33.0 [facility] Comment on above: Performed By: #### L 100.0000 ####Main Laboratory ([facility] [address] [place], [place] [phone] Nivar, MD MCHC (RBC) [Mass/Vol] 33.7 g/dL Normal 33.0-36.0 [facility] Comment on above: Performed By: #### L 100.0000 ####Main Laboratory ([facility] [address] [place] [phone] Nivar, MD MCV 86.1 CU MILKA Normal 80-97 [facility] Comment on above: Performed By: #### L 100.0000 ####Main Laboratory ([facility])[address] [place], [place] [phone] Nivar, MD Nash- Auto Diff 5.0 % Normal 2-10 [facility] Comment on above: Performed By: #### L 100.0000 ####Main Laboratory ([facility])[address] [place], [place] [phone] Nivar, MD Neut-Auto Diff 79.3 % High 40-70 [facility] Comment on above: Performed By: #### L 100.0000 ####Main Laboratory ([facility])[address] [phone] Nivar, MD NRBC-Auto 0.0 /100 WBC Normal <1 [facility] Comment on above: Performed By: #### L 100.0000 ####Main Laboratory ([facility])[address] [phone] Nivar, MD Platelet Count 635 th/cmm High 150-400 [facility] Comment on above: Performed By: #### L 100.0000 ####Main Laboratory ([facility])[address] [phone] Nivar, MD RBC 2.77 mil/cmm Low 4.00-5.10 [facility] Comment on above: Performed By: #### L 100.0000 ####Main Laboratory ([facility])[address] [phone] Nivar, MD WBC 13.0 th/cmm High 4.4-10.5 [facility] Comment on above: Performed By: #### L 100.0000 ####Main Laboratory ([facility])[address] [phone] Nivar, MD CT Abd/Pelvis W/Contrast 741 [facility] 09-17-2023 CT Abd/Pelvis W/Contrast [id number] [facility] Radiology Department Patient: GEOVANNY MEJÍA [address] : 1970 Sex: Belinda [place] [address] Location: [address] [place] [address] Unit #: [id number] Ordering Phys: Troy Garber MD Exam Date: 09/17/23 Exam: CT CT Abd/Pelvis W/Contrast [id number] Result: See Report ADDENDUM: [id number] STUDY: CT ABDOMEN AND PELVIS WITH CONTRAST [...] 15:58 EDT Reading Location ID and State: [place] , Service support , Addendum Dictated by: Freddy Guevara MD on 09/17/23 at 1558 Transcribed by: Freddy Guevara on 09/17/23 at 1558 Report Signed by: Freddy Guevara MD on 09/17/23 1558 [id number] STUDY: CT ABDOMEN AND PELVIS WITH CONTRAST [...] right pleural (more content not included)... Normal [facility] CT Peritoneal Abscesson 10-2 CT Peritoneal Abscess [facility] Radiology Department Patient: GEOVANNY MEJÍA. : 1970 Sex: Kelsey [place] [address] Location: [facility] [phone] Unit #: [id number] Ordering Phys: Troy Garber MD Exam Date: 09/17/23 Exam: CT CT Peritoneal Abscess Result: See Report [id number] CT GUIDED FLUID COLLECTION DRAINAGE WITH PIGTAIL DRAINAGE CATHETER PLACEMENT. Indication: Reaccumulation of left retroperitoneal fluid collection. Consent: Informed, written consent was obtained from the patient, prior to procedure and following discussion of risks, benefits, alternatives and personnel. Patient oriented dose modulation technique utilized. PERFORMING PHYSICIAN: Kristin Guevara MD DATE OF PROCEDURE: 09/17/2023 CIRCUIT BOARD INSPECTOR: NONE ESTIMATED BLOOD LOSS: Negligible COMPLICATIONS: None [...] a small skin incision was made. A 5-German Yueh needle/catheter was advanced under intermittent CT guidance into the fluid collection. A J-wire passed easily. The tract was dilated with a 12 German dilator. A 12 German drainage catheter was then advanced over the wire into position, the Moore loop was positioned in the collection and [...] 17:25 EDT Reading Location ID and State: [address] [place] [address] , Service support , cc: Tryo Garber MD; None Dictated by: Freddy Guevara MD on 09/17/231724 Transcribed by: Ferddy Guevara on 09/17/231724 Report Signed by: Ismael MEJÍA,Freddy Nielsen on 09/17/231724 Normal [facility] Case Management Daily Noteon 09-17-2023 Case Management Daily Note [facility] Case Management Patient: GEOVANNY MEJÍA1 [address] Suh. : 1970 [place], [place] [address] Location: [phone] Unit #: [id number] Case Management Daily Note Dina Kaur Mis Service Date: 09/17/23 Case Mgmt Daily Note - Plan of Care Toy Assembly Supervisor Agrees with Attending and Consult Plan: Yes - COVID-19 Was Position Statement Letter Delivered?: Yes - Care Coordination Communication Care Coordination Communication: Spoke with patient's family via phone - Hospital Stay Days Day 1 Comment: 09/08 Met with patient in the room. Patient is from [place]. She is up here to visit her sister. Patient reporting she is normally independent. Does not have a PCP. Patient would like to use [facility] OP Pharm for meds. Planning to have her cousin pick her up at d/c. Contact is her cousin Ursula. Denies having LW/dPOA. Toy Assembly Supervisor: Evelyne Pena, RN Day 2 Comment: 09/09 Met with patient in the room. Patient asking to get up and move around. PT/OT to eval. S/p L ABD drain placement. Patient agreeable to [facility] for drain mgmt if needed. Reporting she will be going to [facility] at d/c to stay with her cousin Ursula. CM spoke with patients cousin Ursula via telephone who reports she is ok with [facility] coming to her home if patient would go there at d/c. Ursula reporting patient was homeless in [place] and recently move to [place] with her sister Monique. Toy Assembly Supervisor: Evelyne Pean, RN Day 3 Comment: 09/10 D/c needs pending medical course. Jr mullen. Dilaudid CAP MAKER. PT/OT. ID c/s. Therapy recs for IPR vs OP PT. Will follow to assist with d/c needs. Toy Assembly Supervisor: Evelyne Pena, RN Day 4 Comment: 09/11 Met with patient in the room who is planning to d/c to her cousin Gena lutz in [place], [place]. Patient is agreeable to [facility]. CM spoke with Ursula who is agreeable for patient to come there at d/c. Referral sent to [facility]. Await approval. CAP MAKER. ABD drain. NPO. ID c/s. PT/OT. Toy Assembly Supervisor: Evelyne Pena, RN Day 5 Comment: 09/12 Met with patient in the room to discuss d/c plan. Patient unable to move b/l LE. No sensation to RLE. Does have sesation to LLE. PT/OT recommending SNF, patient agreeable. She would like to go somewhere near her cousin Ursula in [place], [place]. CM assisted patient with changing her address with her [facility] insurance to an [place] address. c/s for SNF placement and GW[place] assist with [place]. Patient will need a precert. CAP MAKER continues. If patient would improve with mobility, she has been accepted to [facility]. CM spoke with Ursula via telephone to update. Toy Assembly Supervisor: Evelyne Pena, RN Day 6 Comment: 09/15- POD 2. CM spoke with patient at bedside. VSS. WBC 19.9. PT/OT rec SNF. Pt verbalized agreeable for SNF and would like [facility]. MANOLO c/s AND reported that [facility] is not in network with pt insurance. MANOLO spoke w/ pt AND Lamin is now reviewing patient. Pt is awaiting the start of [place] [facility] application with [facility] as current dual insurance is out of state. Pt will also require a precert when medically ready. CM following. Toy Assembly Supervisor: Dina Abebe Day 8 Comment: 09/15- POD 2. CM spoke with patient at bedside. VSS. WBC 19.9. PT/OT rec SNF. Pt verbalized agreeable for SNF and would like [facility]. c/s. Pt will require precert when medically [...] Attending noted plans to attempt transfer to [facility] AND if denied, to attempt [facility], per pt preferance. Transfer packet completed. CM following. @12:21- Nurse reported to CM that Dr Holt has declined to take pt, per [facility], AND that a message was relayed to the attending. @14:30- [facility] has assisted pt with completion of [place] GWEN vilma. CM faxing documentation to [facility] AND calling now to verify if they are able to accept pt with that. If unable, CM to fax AND verify w/ [facility]. If neither hospital is able to accept, attending plans to reach out to [facility]. @15:00- CM spoke with Shelby at [...] of network insurance. CM updated the attending. Toy Assembly Supervisor: Dina Abebe Day 10 Comment: 09/17- CM received perfect serve notification from pt's nurse after CM left for the day yesterday at 16:[address] Clemnos, the pt has been accepted to [facility] and that the transfer cente (more content not included)... Normal [facility] Interventional Radiology Not malika 09-17-2023 Interventional Radiology Note [facility] Medical Records Patient: GEOVANNY MEJÍA [address]. : 1970 [place], [place] [address] Location: [phone] Unit #: [id number] Interventional Radiology Note G Alison. Ismael MD Service Dt/Tm: 09/17/231648 Interventional Radiology Note [...] < > Report Signed by: on Normal [facility] Magnesiumon 09-17-2023 Magnesium [Mass/Vol] 2.2 mg/dL Normal 1.8-2.5 [facility] Comment on above: Performed By: #### L 100.0050 #### Main Laboratory ([facility]) [address] [place] [address] Drew Granger MD Progress Note - Hospitalisto korina 09-17-2023 Progress Note - Hospitalist [facility] Medical Records Patient: GEOVANNY MEJÍA [address]. : 1970 [place] [address] Location: [facility] [phone] Unit #: [id number] Progress Note - Hospitalist Troy Garber MD Service Dt/Tm: 09/17/23 1716 Assessment/Plan Assessment/Plan (1) Intra-abdominal abscess: Status: Acute [...] [facility] upon converting her insurance to the [place] Medicaid. Currently she remains in-house awaiting a [...] the imagin (more content not included)... Normal [facility] Progress Note - Hospitalist [facility] Medical Records Patient: GEOVANNY MEJÍA. : 1970 [place], [place] [address] Location: [facility] [phone] Unit #: [id number] Progress Note - Hospitalist Troy Garber MD [...] with the direction to call first the [facility] for the transfer, and if that does [...] Diet Texture: Regular Fluid Restrictions?: No Consult Senior Water/Wastewater Engineer for Oral Supplements/Nourishme nts?: No Oral Supplement 1: Ensure Supplement 1 Frequency: Once/day Oral Supplement 2: Magic Cup Supplement 2 F (more content not included)... Normal [facility] Progress Note Neurosurgeryon 09-17-2023 Progress Note Neurosurgery [facility] Medical Records Patient: GEOVANNY MEJÍA [address] : 1970 [place], [place] [address] Location: [phone] Unit #: [id number] Progress Note Neurosurgery Jasbir Ann PA-C Service [...] I spoke with the Ortho spine surgeon national sales manager and the transfer center at [facility]. I explained that the patient still [...] made. Entered by: Jasbir Ann PA-C on 09/16/233 Report Signed by: Jasbir Ann PA-C on 09/16/23 1335 < > Report Signed by: Alec Clemons MD on 09/17/23 1914 < > Normal [facility] Renal Function Panelon 09-17 Albumin [Mass/Vol] 2.4 g/dL Low 3.5-5.0 [facility] Comment on above: Performed By: #### L 100.0050 #### Main Laboratory ([facility]) [address] [place] [address] Drew Granger MD Anion gap [Moles/Vol] 7 mmol/L Normal 4-12 [facility] Comment on above: Performed By: #### L 100.0050 #### Main Laboratory ([facility]) [address] [place] [address] Drew Granger MD Calcium [Mass/Vol] 8.10 mg/dL Low 8.8-10.5 [facility] Comment on above: Performed By: #### L 100.0050 #### Main Laboratory ([facility]) [address] [place] [address] Drew Granger MD Chloride [Moles/Vol] 96 mmol/L Low 101-111 [facility] Comment on above: Performed By: #### L 100.0050 #### Main Laboratory ([facility]) [address] [place] [address] Drew Granger MD CO2 [Moles/Vol] 26 mmol/L Normal 21-32 [facility] Comment on above: Performed By: #### L 100.0050 #### Main Laboratory ([facility]) [address] [place] [address] Drew Granger MD Creatinine [Mass/Vol] 0.47 mg/dL Low 0.60-1.30 [facility] Comment on above: Performed By: #### L 100.0050 #### Main Laboratory ([facility]) [address] [place] [address] Drew Granger MD GFR Calculation > 60 Normal [facility] Comment on above: Result Comment: Infant Caregiver dontrell Kidney Disease stages by NKDF Stage eGFR I >90 II 60-89 III 30-59 IV 15-29 V <15 or dialysis AGE(years) AVERAGE GFR 50-59 93 ml/min/1.73 square meters Note:This result is normalized to 1.73 square meter body surface area. Height and weight are not factored. Performed By: #### L 100.0050 #### Main Laboratory ([facility]) [address] [place] [address] Drew Granger MD Glucose [Mass/Vol] 107 mg/dL Normal 70-110 [facility] Comment on above: Result Comment: *Thi s reference range applies to fasting specimens only. Performed By: #### L 100.0050 #### Main Laboratory ([facility]) [address] [place] [id number] Drew Granger MD Phosphate [Mass/Vol] 4.5 mg/dL Normal 2.4-4.7 [facility] Comment on above: Performed By: #### L 100.0050 #### Main Laboratory ([facility]) [address] [place] [address] Drew Granger MD Potassium [Moles/Vol] 4.2 mmol/L Normal 3.6-5.0 [facility] Comment on above: Performed By: #### L 100.0050 #### Main Laboratory ([facility]) [address] [place] [address] Drew Granger MD Sodium [Moles/Vol] 129 mmol/L Low 135-145 [facility] Comment on above: Performed By: #### L 100.0050 #### Main Laboratory ([facility]) [address] [place] [address] Drew Granger MD Urea nitrogen [Mass/Vol] 9 mg/dL Normal 7-20 [facility] Comment on above: Performed By: #### L 100.0050 #### Main Laboratory ([facility]) [address] [place] [address] Drew Granger MD Anisocytosis Auto Ql (Bld)Or dered By: Troy Garber on 09-16-2023 Anisocytosis Ql (Bld) 1+ [facility] Automated blood hypochromia detectionOrdered By: Troy Garber on 09-16-2023 Hypochromia Auto Ql (Bld) 2+ [facility] Blood Cultureon 09-16-2023 Bacteria identified Cx Nom [...] For MILKA results, see culture collected 09/11/23 ([id number]) Normal [facility] Comment on above: Performed By: #### M 140.0200 #### Main Laboratory ([facility]) [address] [place] [place] [id number] Drew Granger MD Bacteria identified Cx Nom [...] hoxazole <=10 S Vancomycin <=0.5 S Normal [facility] Comment on above: Performed By: #### M 140.0200 #### Main Laboratory ([facility]) [address] [place] [address] Drew Granger MD Blood erythrocyte morphology identificationOrdered By: Troy Garber on 09-16-2023 RBC morphology finding Nom (Bld) Test not indicated [facility] Blood polychromasia detectio n by light microscopyOrdered By: Troy Garber on 09-16-2023 Polychromasia LM Ql (Bld) Slight [facility] C-Reactive Proteinon 023 C-Reactive Protein 17.1 mg/dL High <1.0 [facility] Comment on above: Performed By: #### L 100.0050 #### Main Laboratory ([facility]) [address] [place] [address] Drew Granger MD CBC with Differentialon 08-25 Abs Baso Count 200 /cmm Normal 0-200 [facility] Comment on above: Performed By: #### L 150.0000, L100.0000, L100.3600 ####Main Laboratory ([facility])[address], [place] [phone] Nivar, MD Abs Eos Count 100 /cmm Normal 0-500 [facility] Comment on above: Performed By: #### L 150.0000, L100.0000, L100.3600 ####Main Laboratory ([facility])[address], [place] [phone] Nivar, MD Abs Lymph Count 1700 /cmm Normal 2047-1574 [facility] Comment on above: Performed By: #### L 150.0000, L100.0000, L100.3600 ####Main Laboratory ([facility])[address] [phone] Nivar, MD Abs Nash Count 800 /cmm Normal 0-800 [facility] Comment on above: Performed By: #### L 150.0000, L100.0000, L100.3600 ####Main Laboratory ([facility])[address], [place] [phone] Nivar, MD Abs Neut Count 93536 /cmm High 5355-0714 [facility] Comment on above: Performed By: #### L 150.0000, L100.0000, L100.3600 ####Main Laboratory ([facility])[address], [place] [phone] Nivar, MD Anisocytosis Ql (Bld) 1+ Normal [facility] Comment on above: Performed By: #### L 150.0000, L100.0000, L100.3600 ####Main Laboratory ([facility])[address], [place] [phone] Nivar, MD Basophils/100 WBC (Bld) 1.0 % Normal 0-2 L [facility] [place] [facility] Comment on above: Performed By: #### L 150.0000, L100.0000, L100.3600 ####Main Laboratory ([facility])[address], [place] [phone] Nivar, MD EOS-Auto Diff 0.3 % Normal 0-6 [facility] Comment on above: Performed By: #### L 150.0000, L100.0000, L100.3600 ####Main Laboratory ([facility])[address], [place] [phone] Nivar, MD Hypochromasia 2+ Normal [facility] Comment on above: Performed By: #### L 150.0000, L100.0000, L100.3600 ####Main Laboratory ([facility])[address] [phone] Nivar, MD Lymphocytes/100 WBC (Bld) 8.8 % Low 15-45 [facility] Comment on above: Performed By: #### L 150.0000, L100.0000, L100.3600 ####Main Laboratory ([facility])[address], [place] [phone] Nivar, MD Macrocytosis 1+ Normal [facility] Comment on above: Performed By: #### L 150.0000, L100.0000, L100.3600 ####Main Laboratory ([facility])[address], [place] [phone] Nivar, MD Microcytosis 1+ Normal [facility] Comment on above: Performed By: #### L 150.0000, L100.0000, L100.3600 ####Main Laboratory ([facility])[address] [phone] Nivar, MD Nash- Auto Diff 4.0 % Normal 2-10 [facility] Comment on above: Performed By: #### L 150.0000, L100.0000, L100.3600 ####Main Laboratory ([facility])[address] [place] [phone] Nivar, MD Neut-Auto Diff 85.9 % High 40-70 [facility] Comment on above: Performed By: #### L 150.0000, L100.0000, L100.3600 ####Main Laboratory ([facility])[address] [phone] Nivar, MD NRBC-Auto 0.0 /100 WBC Normal <1 [facility] Comment on above: Performed By: #### L 150.0000, L100.0000, L100.3600 ####Main Laboratory ([facility])[address] [phone] Nivar, MD Erythrocyte distribution width (RBC) [Ratio] 16.1 % High 12.0-16.0 [facility] Comment on above: Performed By: #### L 150.0000, L100.0000, L100.3600 ####Main Laboratory ([facility])[address] [phone] Nivar, MD Hematocrit (Bld) [Volume fraction] 24.4 % Low 35.0-44.0 [facility] Comment on above: Performed By: #### L 150.0000, L100.0000, L100.3600 ####Main Laboratory ([facility])[address], [place] [phone] Nivar, MD Hemoglobin (Bld) [Mass/Vol] 8.0 g/dL Low 12.0-15.0 [facility] Comment on above: Performed By: #### L 150.0000, L100.0000, L100.3600 ####Main Laboratory ([facility])[address], [place] [phone] Nivar, MD MCH (RBC) [Entitic mass] 28.0 pg Normal 27.5-33.0 [facility] Comment on above: Performed By: #### L 150.0000, L100.0000, L100.3600 ####Main Laboratory ([facility])[address], [place] [phone] Nivar, MD MCHC (RBC) [Mass/Vol] 32.8 g/dL Low 33.0-36.0 [facility] Comment on above: Performed By: #### L 150.0000, L100.0000, L100.3600 ####Main Laboratory ([facility])[address] [phone] Nivar, MD MCV 85.6 CU MILKA Normal 80-97 [facility] Comment on above: Performed By: #### L 150.0000, L100.0000, L100.3600 ####Main Laboratory ([facility])[address], [place] [phone] Nivar, MD Platelet Count 576 th/cmm High 150-400 [facility] Comment on above: Performed By: #### L 150.0000, L100.0000, L100.3600 ####Main Laboratory ([facility])[address], [place] [phone] Nivar, MD RBC 2.85 mil/cmm Low 4.00-5.10 [facility] Comment on above: Performed By: #### L 150.0000, L100.0000, L100.3600 ####Main Laboratory ([facility])[address], [place] [phone] Nivar, MD WBC 19.4 th/cmm High 4.4-10.5 [facility] Comment on above: Performed By: #### L 150.0000, L100.0000, L100.3600 ####Main Laboratory ([facility])[address], [place] [phone] Nivar, MD Case Management Daily Noteon 09-16-2023 Case Management Daily Note [facility] Case Management Patient: GEOVANNY MEJÍA [address] : 1970 [place], [place] [address] Location: [facility] [phone] Unit #: [id number] Case Management Daily Note Dina Abebe Service Date: 09/16/23 Case Mgmt Daily Note - Plan of Care Toy Assembly Supervisor Agrees with Attending and Consult Plan: Yes - COVID-19 Was Position Statement Letter Delivered?: Yes - Care Coordination Communication Care Coordination Communication: Spoke with patient's family via phone - Hospital Stay Days Day 1 Comment: 09/08 Met with patient in the room. Patient is from [place]. She is up here to visit her sister. Patient reporting she is normally independent. Does not have a PCP. Patient would like to use [facility] OP Pharm for meds. Planning to have her cousin pick her up at d/c. Contact is her cousin Ursula. Denies having LW/dPOA. Toy Assembly Supervisor: Evelyne Pena, RN Day 2 Comment: 09/09 Met with patient in the room. Patient asking to get up and move around. PT/OT to eval. S/p L ABD drain placement. Patient agreeable to [facility] for drain mgmt if needed. Reporting she will be going to [facility] at d/c to stay with her cousin Ursula. CM spoke with patients cousin Ursula via telephone who reports she is ok with [facility] coming to her home if patient would go there at d/c. Ursula reporting patient was homeless in [place] and recently move to [place] with her sister Monique. Toy Assembly Supervisor: Evelyne Pena, RN Day 3 Comment: 09/10 D/c needs pending medical course. Jr mullen. Dilaudid CAP MAKER. PT/OT. ID c/s. Therapy recs for IPR vs OP PT. Will follow to assist with d/c needs. Toy Assembly Supervisor: Evelyne Pena, RN Day 4 Comment: 09/11 Met with patient in the room who is planning to d/c to her cousin Gena lutz in [place], [place]. Patient is agreeable to [facility]. CM spoke with Ursula who is agreeable for patient to come there at d/c. Referral sent to [facility]. Await approval. CAP MAKER. ABD drain. NPO. ID c/s. PT/OT. Toy Assembly Supervisor: Evelyne Pena, RN Day 5 Comment: 09/12 Met with patient in the room to discuss d/c plan. Patient unable to move b/l LE. No sensation to RLE. Does have sesation to LLE. PT/OT recommending SNF, patient agreeable. She would like to go somewhere near her cousin Ursula in [place], [place]. CM assisted patient with changing her address with her [facility] insurance to an [place] address. c/s for SNF placement and GWEN assist with [place]. Patient will need a precert. CAP MAKER continues. If patient would improve with mobility, she has been accepted to [facility]. CM spoke with Ursula via telephone to update. Toy Assembly Supervisor: Evelyne Pena, RN Day 6 Comment: 09/15- POD 2. CM spoke with patient at bedside. VSS. WBC 19.9. PT/OT rec SNF. Pt verbalized agreeable for SNF and would like [facility]. MANOLO c/s AND reported that [facility] is not in network with pt insurance. spoke w/ pt AND Lamin is now reviewing patient. Pt is awaiting the start of [place] GW[facility] application with [facility] as current dual insurance is out of state. Pt will also require a precert when medically ready. CM following. Toy Assembly Supervisor: Dina Abebe Day 8 Comment: 09/15- POD 2. CM spoke with patient at bedside. VSS. WBC 19.9. PT/OT rec SNF. Pt verbalized agreeable for SNF and would like [facility]. SW c/s. Pt will require precert when [...] Attending noted plans to attempt transfer to [facility] AND if denied, to attempt [facility], per pt preferance. Transfer packet completed. CM following. @12:21- Nurse reported to CM that Dr Holt has declined to take pt, per [facility], AND that a message was relayed to the attending. @14:30- [facility] has assisted pt with completion of [place] vilma. CM faxing documentation to [facility] AND calling now to verify if they are able to accept pt with that. If unable, CM to fax AND verify / [facility]. If neither hospital is able to accept, attending plans to reach out to [facility]. @15:00- CM spoke with Shelby at [...] of network insurance. CM updated the attending. Toy Assembly Supervisor: Dina Abebe R - Home Health/IV Infusion/Wound Vac Home Health Referral Indicated: Yes Home Health List Provided: Yes Indication for Home Health: Wound Care, Other Patient's Response: Yes Home Health Agencies: [facility] (more content not included)... Normal [facility] Erythrocyte Sedimentation Ra raquel 09-16-2023 ESR (Bld) [Velocity] 112 mm/h High <=30 [facility] Comment on above: Performed By: #### L 150.0000, L100.0000, L100.3600 ####Main Laboratory ([facility])[address], [place] [phone] Nivar, MD Erythrocyte sedimentation ra teOrdered By: Troy Garber on 09-16-2023 ESR (Bld) [Velocity] 112 mm/h High <30 [facility] Macrocytes Auto Ql (Bld)Orde red By: Troy Garber on 09-16-2023 Macrocytes Ql (Bld) 1+ [facility] Magnesiumon 09-16-2023 Magnesium [Mass/Vol] 2.1 mg/dL Normal 1.8-2.5 [facility] Comment on above: Performed By: #### L 100.0050 #### Main Laboratory ([facility]) [address] [place] [address] Drew Granger MD Microcytes Auto Ql (Bld)Orde red By: Troy Garber on 09-16-2023 Microcytes Ql (Bld) 1+ [facility] Progress Note - Hospitalisto n 09-16-2023 Progress Note - Hospitalist [facility] Medical Records Patient: GEOVANNY MEJÍA [address] : 1970 [place] [address] Location: [phone] Unit #: [id number] Progress Note - Hospitalist Troy Garber MD [...] with the direction to call first the [facility] for the transfer, and if that does [...] a call has been placed to the [facility], according to their choice, and the third choice being the [facility], if the [place] transfer does not materialize. We will continue with supportive but aggressive management pending the transfer. Current Code Status AND Diet: 09/08/23 13:19 Code Status Routine Resuscitation Status: Full Code Code Status Order Placed: Code Status Ordered 09/08/23 at 1321 09/13/23 08:00 Regular Diet Texture: Regular Fluid Restrictions?: No Consult Senior Water/Wastewater Engineer for Oral Suppleme (more content not included)... Normal [facility] RBC Morphologyon 09-16-2023 Polychromasia Slight Normal [facility] Comment on above: Performed By: #### L 150.0000, L100.0000, L100.3600 ####Main Laboratory ([facility])[address], [place] [phone] Nivar, MD Renal Function Panelon 09-16 Albumin [Mass/Vol] 2.5 g/dL Low 3.5-5.0 [facility] Comment on above: Performed By: #### L 100.0050 #### Main Laboratory ([facility]) [address] [place] [address] Drew Granger MD Anion gap [Moles/Vol] 6 mmol/L Normal 4-12 [facility] Comment on above: Performed By: #### L 100.0050 #### Main Laboratory ([facility]) [address] [place] [address] Drew Granger MD Calcium [Mass/Vol] 8.10 mg/dL Low 8.8-10.5 [facility] Comment on above: Performed By: #### L 100.0050 #### Main Laboratory ([facility]) [address] [place] [address] Drew Granger MD Chloride [Moles/Vol] 96 mmol/L Low 101-111 [facility] Comment on above: Performed By: #### L 100.0050 #### Main Laboratory ([facility]) [address] [place] [address] Drew Granger MD CO2 [Moles/Vol] 26 mmol/L Normal 21-32 [facility] Comment on above: Performed By: #### L 100.0050 #### Main Laboratory ([facility]) [address] [place] [address] Drew Granger MD Creatinine [Mass/Vol] 0.47 mg/dL Low 0.60-1.30 [facility] Comment on above: Performed By: #### L 100.0050 #### Main Laboratory ([facility]) [address] [place] [address] Drew Granger MD GFR Calculation > 60 Normal [facility] Comment on above: Result Comment: Infant Caregiver dontrell Kidney Disease stages by NKDF Stage eGFR I >90 II 60-89 III 30-59 IV 15-29 V <15 or dialysis AGE(years) AVERAGE GFR 50-59 93 ml/min/1.73 square meters Note:This result is normalized to 1.73 square meter body surface area. Height and weight are not factored. Performed By: #### L 100.0050 #### Main Laboratory ([facility]) [address] [place] [id number] Drew Granger MD Glucose [Mass/Vol] 124 mg/dL High 70-110 [facility] Comment on above: Performed By: #### L 100.0050 #### Main Laboratory ([facility]) [address] [place] [address] Drew Granger MD Phosphate [Mass/Vol] 4.8 mg/dL High 2.4-4.7 [facility] Comment on above: Result Comment: Delt a: 2.6 on 09/15/23-0119 Performed By: #### L 100.0050 #### Main Laboratory ([facility]) [address] [place] [address] Drew Granger MD Potassium [Moles/Vol] 4.3 mmol/L Normal 3.6-5.0 [facility] Comment on above: Performed By: #### L 100.0050 #### Main Laboratory ([facility]) [address] [place] [address] Drew Granger MD Sodium [Moles/Vol] 128 mmol/L Low 135-145 [facility] Comment on above: Performed By: #### L 100.0050 #### Main Laboratory ([facility]) [address] [place] [address] Drew Granger MD Urea nitrogen [Mass/Vol] 11 mg/dL Normal 7-20 [facility] Comment on above: Performed By: #### L 100.0050 #### Main Laboratory ([facility]) [address] [place] [address] Drew Granger MD Serum or plasma C reactive p rotein measurement (mass/volume)Ordered By: Troy Garber on 09-16-2023 CRP [Mass/Vol] 17.1 mg/dL High <1.0 [facility] Slide Review by Lynne hui 09-16-2023 Slide Review by Pathologist * Normal [facility] Comment on above: Result Comment: Abso lute granulocytosis consistent with response to infection, toxins, tissue injury, stresses or hemorrhage. Hypochromic, microcytic anemia with high RDW consistent with iron deficiency. Suggest iron studies. Slide reviewed by Dr Krunal BESS on 09/15/23. Performed By: #### L 600.6150 #### Main Laboratory ([facility]) [address] [place] [address] Drew Granger MD Social Work Daily Noteon Social Work Daily Note [facility] Telegraph Service Rater Patient: GEOVANNY MEJÍA [address] : 1970 [place], [place] [address] Location: [phone] Unit #: [id number] Social Work Daily Note Jacqueline Hamilton Jerry MECHANICAL MANUFACTURING TECHNICIAN, DOOR TO DOOR FUNDRAISING COLLECTOR Service Date: 09/16/23 SW Daily Note - [...] rehab. pt is needing to transfer her [facility] medicaid dual plan. SW got a copy of pts card, pt was unable to move much and couldnt sit up, she needed assistance to get her insurance card out of her wallet. Nurse LENY Hickey called with pt on Friday to transfer the Medicare portion. The Medicaid portion needs cancelled and re-submitted for [place] Medicaid for pts county she will be living in. SW made contact with [facility] for assistance and to re-submit pts medicaid vilma. Pt would like a facility near her cousin ursula's house. There are looking at [facility] in [place], and [facility]. SW made contact with [facility] and they are not in network with [facility]. [facility] is in Network. SW follow up with pts cousin via phone as she would like her to help with finding a long term. Per Ursula there is another facility near her [facility]. SW made contact with [facility], they are in network with [facility], Per there admissions person Emmanuel they would be willing to bring pt in with a pending Medicaid number, per Emmanuel both Medicare and Medicaid would need transfered. Referral sent to [place] for review. Marisol from [facility] to meet with pt. SW to also meet back to assist with canceling [place] if Marisol has not been able to assist pt. Soft Shoe Dancer: Jacqueline Edwards LSW, MSW Day 2 Note: 09/15/23 SW met back with pt, pt was asleep but easily aroused. SW explained to pt that we needed to terminate her [place] Medicaid before submitting an application for [place] Medicaid and this needed to be initiated prior to her Dcing to a SNF. SW called [facility] and had to leave a VM requesting that they call pt back to so that pt could terminate her [place] Medicaid there and give her new address and county. Soft Shoe Dancer: Jacqueline Edwards LSW, LORNA Day 3 Note: 09/16/23 Pt transfer pending for another hospital. Referral was sent to two SNFS, [facility]ine [facility] was able to accept, Lamin was reviewing. Both pt and pt coujulisa Brunner aware of possible transfer out, but know SNF is still the back up plan, they can also follow back when pt Dcs from other setting and still requires a skilled stay. [facility] initiated a Medicaid application for pt. [place] Medicaid Application/pending number forward to Dina if needed for transfer out. Pts cousin Ursula shared with CM that she heard that pt may have a history of substance abuse and this could be contributing to her current condition. SW unsure of this and encouraged her to speak with physician about this when she is next here visiting with pt. Soft Shoe Dancer: Jacqueline Edwards LSW, LORNA - * Requested Intvs/Referrals * Knit Goods Washer Referrals: SNF/LTAC Placement Soft Shoe Dancer I Referrals: Financial Issues/Medicaid Applications - * HEALTHCARE DECISIONS * Living Will: Unknown Durable Power of Textile Designer for Health Care: Unknown State of [place] DNR Comfort Care: Unknown [place] DNR Comfort Care Arrest: Unknown - Home Health/IV Infusion/Wound Vac Home Health Referral Indicated: Yes Home Health List Provided: Yes Indication for Home Health: Wound Care, Other Patient's Response: Yes [place] Health [place]gen[place] Patient given options to view quality scores of facility?: No Entered by: MARY Rodriguez MSW on 09/16/23 1523 Report Signed by: Jacqueline Edwards DOOR TO DOOR FUNDRAISING COLLECTOR on 09/16/231532 < > Report Signed by: on Normal [facility] Status Note/Updateon 023 Status Note/Update [facility] Medical Records Patient: GEOVANNY MEJÍA. : 1970 [place] [id number] Location: [phone] Unit #: [id number] Status Note/Update Troy Garber MD Service Dt/Tm: 09/16/231650 Note: GEOVANNY MEJÍA is a 53 yr old F who was admitted on 09/08/23 for INTRA ABDOMINAL ABCESS. Patient's [place] Medicaid has been approved and her insurance [...] < > Report Signed by: on Normal [facility] Status Note/Update [facility] Medical Records Patient: GEOVANNY MEJÍA. : 1970 [place] [address] Location: [phone] Unit #: [id number] Status Note/Update David Elena MD Service Dt/Tm: 09/15/232044 Note: GEOVANNY MEJÍA is a 53 yr old F who was admitted on 09/08/23 for INTRA ABDOMINAL ABCESS. Transfer process to go to [facility] started. Discussed with patient and also patient's close relative Ursula Echevarria about the transfer to [facility]. They have agreed to be transferred. Spoke to Shabnam transfer nurse at [facility] phone number [phone]. Detailed history was given. She will speak [...] < > Report Signed by: on Normal [facility] C-Reactive Proteinon 023 C-Reactive Protein 11.4 mg/dL High <1.0 [facility] Comment on above: Performed By: #### M 110.0050 #### Main Laboratory ([facility]) [address] [place] [address] Drew Granger MD CBC with Differentialon 08-25 Abs Baso Count 0 /cmm Normal 0-200 [facility] Comment on above: Performed By: #### L 600.6150 #### Main Laboratory ([facility]) [address] [place] [address] Drew Granger MD Abs Eos Count 0 /cmm Normal 0-500 [facility] Comment on above: Performed By: #### L 600.6150 #### Main Laboratory ([facility]) [address] [place] [address] Drew Granger MD Abs Lymph Count 2000 /cmm Normal 4338-9548 [facility] Comment on above: Performed By: #### L 600.6150 #### Main Laboratory ([facility]) [address] [place] [address] Drew Granger MD Abs Nash Count 700 /cmm Normal 0-800 [facility] Comment on above: Performed By: #### L 600.6150 #### Main Laboratory ([facility]) [address] [place] [address] Drew Granger MD Abs Neut Count 86746 /cmm High 7205-9541 [facility] Comment on above: Performed By: #### L 600.6150 #### Main Laboratory ([facility]) [address] [place] [address] Drew Granger MD Basophils/100 WBC (Bld) 0.0 % Normal 0-2 L [facility] [place] [facility] Comment on above: Performed By: #### L 600.6150 #### Main Laboratory ([facility]) [address] [place] [address] Drew Granger MD EOS-Auto Diff 0.2 % Normal 0-6 [facility] Comment on above: Performed By: #### L 600.6150 #### Main Laboratory ([facility]) [address] [place] [address] Drew Granger MD Erythrocyte distribution width (RBC) [Ratio] 16.1 % High 12.0-16.0 [facility] Comment on above: Performed By: #### L 600.6150 #### Main Laboratory ([facility]) [address] [place] [address] Drew Granger MD Hematocrit (Bld) [Volume fraction] 27.0 % Low 35.0-44.0 [facility] Comment on above: Performed By: #### L 600.6150 #### Main Laboratory ([facility]) [address] [place] [address] Drew Granger MD Hemoglobin (Bld) [Mass/Vol] 8.9 g/dL Low 12.0-15.0 [facility] Comment on above: Performed By: #### L 600.6150 #### Main Laboratory ([facility]) [address] [place] [address] Drew Granger MD Lymphocytes/100 WBC (Bld) 10.2 % Low 15-45 [facility] Comment on above: Result Comment: Delt a: 2.9 on 09/13/23 Performed By: #### L 600.6150 #### Main Laboratory ([facility]) [address] [place] [address] Drew Granger MD MCH (RBC) [Entitic mass] 28.0 pg Normal 27.5-33.0 [facility] Comment on above: Performed By: #### L 600.6150 #### Main Laboratory ([facility]) [address] [place] [address] Drew Granger MD MCHC (RBC) [Mass/Vol] 32.9 g/dL Low 33.0-36.0 [facility] Comment on above: Performed By: #### L 600.6150 #### Main Laboratory ([facility]) [address] [place] [address] Drew Granger MD MCV 85.2 CU MILKA Normal 80-97 [facility] Comment on above: Performed By: #### L 600.6150 #### Main Laboratory ([facility]) [address] [place] [address] Drew Granger MD Nash- Auto Diff 3.6 % Invalid Interpretation Code 2-10 [facility] Comment on above: Result Comment: Delt a: 1.4 on 09/13/23 Performed By: #### L 600.6150 #### Main Laboratory ([facility]) [address] [place] [address] Drew Granger MD Neut-Auto Diff 86.0 % High 40-70 [facility] Comment on above: Performed By: #### L 600.6150 #### Main Laboratory ([facility]) [address] [place] [address] Drew Granger MD NRBC-Auto 0.0 /100 WBC Normal <1 [facility] Comment on above: Performed By: #### L 600.6150 #### Main Laboratory ([facility]) [address] [place] [address] Drew Granger MD Platelet Count 586 th/cmm High 150-400 [facility] Comment on above: Performed By: #### L 600.6150 #### Main Laboratory ([facility]) [address] [place] [address] Drew Granger MD RBC 3.17 mil/cmm Low 4.00-5.10 [facility] Comment on above: Performed By: #### L 600.6150 #### Main Laboratory ([facility]) [address] [place] [address] Drew Granger MD WBC 19.9 th/cmm High 4.4-10.5 [facility] Comment on above: Performed By: #### L 600.6150 #### Main Laboratory ([facility]) [address] [place] [address] Drew Granger MD Case Management Daily Noteon 09-15-2023 Case Management Daily Note [facility] Case Management Patient: GEOVANNY MEJÍA [address] : 1970 [place], [place] [address] Location: [address] [place] [address] Unit #: [id number] Case Management Daily Note Dina Abebe Service Date: 09/15/23 Case Mgmt Daily Note - Plan of Care Toy Assembly Supervisor Agrees with Attending and Consult Plan: Yes - Patient Preferences AND Goals What is the patient's preference?: New SNF Recommended acute discharge goals: New SNF - COVID-19 Was Position Statement Letter Delivered?: Yes - Hospital Stay Days Day 1 Comment: 09/08 Met with patient in the room. Patient is from [place]. She is up here to visit her sister. Patient reporting she is normally independent. Does not have a PCP. Patient would like to use [facility] OP Pharm for meds. Planning to have her cousin pick her up at d/c. Contact is her cousin Ursula. Denies having LW/dPOA. Toy Assembly Supervisor: Evelyne Pena, RN Day 2 Comment: 09/09 Met with patient in the room. Patient asking to get up and move around. PT/OT to eval. S/p L ABD drain placement. Patient agreeable to [facility] for drain mgmt if needed. Reporting she will be going to [facility] at d/c to stay with her cousin Ursula. CM spoke with patients cousin Ursula via telephone who reports she is ok with [facility] coming to her home if patient would go there at d/c. Ursula reporting patient was homeless in [place] and recently move to [place] with her sister Monique. Toy Assembly Supervisor: Evelyne Pena, RN Day 3 Comment: 09/10 D/c needs pending medical course. Jr present. Dilaudid CAP MAKER. PT/OT. ID c/s. Therapy recs for IPR vs OP PT. Will follow to assist with d/c needs. Toy Assembly Supervisor: Evelyne Pena, RN Day 4 Comment: 09/11 Met with patient in the room who is planning to d/c to her cousin Gena lutz in [place], [place]. Patient is agreeable to [facility]. CM spoke with Ursula who is agreeable for patient to come there at d/c. Referral sent to [facility]. Await approval. CAP MAKER. ABD drain. NPO. ID c/s. PT/OT. Toy Assembly Supervisor: Evelyne Pena, RN Day 5 Comment: 09/12 Met with patient in the room to discuss d/c plan. Patient unable to move b/l LE. No sensation to RLE. Does have sesation to LLE. PT/OT recommending SNF, patient agreeable. She would like to go somewhere near her cousin Ursula in [place], [place]. CM assisted patient with changing her address with her [facility] insurance to an [place] address. MANOLO c/s for SNF placement and GWEN assist with [place]. Patient will need a precert. CAP MAKER continues. If patient would improve with mobility, she has been accepted to [facility]. CM spoke with Ursula via telephone to update. Toy Assembly Supervisor: Evelyne Pena, RN Day 6 Comment: 09/15- POD 2. CM spoke with patient at bedside. VSS. WBC 19.9. PT/OT rec SNF. Pt verbalized agreeable for SNF and would like [facility]. MANOLO c/s AND reported that [facility] is not in network with pt insurance. MANOLO spoke w/ pt AND Lamin is now reviewing patient. Pt is awaiting the start of [place] application with [facility] as current dual insurance is out of state. Pt will also require a precert when medically ready. CM following. Toy Assembly Supervisor: Dina Abebe R - Home Health/IV Infusion/Wound Vac Home Health Referral Indicated: Yes Home Health List Provided: Yes Indication for Home Health: Wound Care, Other Patient's Response: Yes Home Health Agencies: [facility] Patient given the option to view quality scores of facility?: Yes - Half-Way Facility SNF List Provided: Yes Half-Way Facilities: [facility] Patient given the option to view [...] 1554 < > Co-Signed by: on Normal [facility] Erythrocyte Sedimentation Ra raquel 09-15-2023 ESR (Bld) [Velocity] 116 mm/h High <=30 [facility] Comment on above: Performed By: #### L 600.6150 #### Main Laboratory ([facility]) [address] [place] [address] Drew Granger MD MRI Thoracic Spine w/wo Cont pedro 09-15-2023 MRI Thoracic Spine w/wo Contr [facility] Radiology Department Patient: GEOVANNY MEJÍA [address] : 1970 Sex: [place] [address] Location: [phone] Unit #: [id number] Ordering Phys: Troy Garber MD Exam Date: 09/15/23 Exam: MRI MRI Thoracic Spine w/wo Contr Result: See Report [id number] STUDY: MRI THORACIC SPINE WITH AND WITHOUT [...] 7:39 EDT Reading Location ID and State: [address] [place] [address] , Service support , cc: Troy Garber MD; None Dictated by: Carolin Bhatia MD on 09/16/23738 Transcribed by: Carolin Bhatia on 09/16/23738 Report Signed by: Carolin Bhatia MD on 09/16/23738 Normal [facility] Magnesiumon 09-15-2023 Magnesium [Mass/Vol] 2.0 mg/dL Normal 1.8-2.5 [facility] Comment on above: Performed By: #### M 110.0050 #### Main Laboratory ([facility]) [address] [place] [address] Drew Granger MD Potassiumon 09-15-2023 Potassium [Moles/Vol] 4.6 mmol/L Normal 3.6-5.0 [facility] Comment on above: Performed By: #### L 400.1500 ####Main Laboratory ([facility])[address], [place] [phone] Nivar, MD Progress Note - Hospitalisto korina 09-15-2023 Progress Note - Hospitalist [facility] Medical Records Patient: GEOVANNY MEJÍA [address] : 1970 [place], [place] [address] Location: [phone] [id number] Progress Note - Hospitalist Troy Garber MD [...] Diet Texture: Regular Fluid Restrictions?: No Consult Senior Water/Wastewater Engineer for Oral Supplements/Nourishme nts?: No Discussed Patient's Care With: Nurse, Case Management and Physician Subjective Subjective: Patient was seen and examined in the morning, after I was notified by neurosurgeon through the admitting provider phone, to obtain an MRI of the thoracic spine with and without contrast to asses (more content not included)... Normal [facility] Progress Note Neurosurgeryon 09-15-2023 Progress Note Neurosurgery [facility] Medical Records Patient: GEOVANNY MEJÍA [address]. : 1970 [place], [place] [address] Location: [phone] Unit #: [id number] Progress Note Neurosurgery Lucy Lara PA-C Service [...] I have (more content not included)... Normal [facility] Renal Function Panelon 09-15 Albumin [Mass/Vol] 2.5 g/dL Low 3.5-5.0 [facility] Comment on above: Performed By: #### M 110.0050 #### Main Laboratory ([facility]) [address] [place] [address] Drew Granger MD Anion gap [Moles/Vol] 6 mmol/L Normal 4-12 [facility] Comment on above: Performed By: #### M 110.0050 #### Main Laboratory ([facility]) [address] [place] [address] Drew Granger MD Calcium [Mass/Vol] 8.00 mg/dL Low 8.8-10.5 [facility] Comment on above: Performed By: #### M 110.0050 #### Main Laboratory ([facility]) [address] [place] [address] Drew Granger MD Chloride [Moles/Vol] 99 mmol/L Low 101-111 [facility] Comment on above: Performed By: #### M 110.0050 #### Main Laboratory ([facility]) [address] [place] [address] Drew Granger MD CO2 [Moles/Vol] 28 mmol/L Normal 21-32 [facility] Comment on above: Performed By: #### M 110.0050 #### Main Laboratory ([facility]) [address] [place] [address] Drew Granger MD Creatinine [Mass/Vol] 0.55 mg/dL Low 0.60-1.30 [facility] Comment on above: Performed By: #### M 110.0050 #### Main Laboratory ([facility]) [address] [place] [address] Drew Granger MD GFR Calculation > 60 Normal [facility] Comment on above: Result Comment: [facility] dontrell Kidney Disease stages by NKDF Stage eGFR I >90 II 60-89 III 30-59 IV 15-29 V <15 or dialysis AGE(years) AVERAGE GFR 50-59 93 ml/min/1.73 square meters Note:This result is normalized to 1.73 square meter body surface area. Height and weight are not factored. Performed By: #### M 110.0050 #### Main Laboratory ([facility]) [address] [place] [address] Drew Granger MD Glucose [Mass/Vol] 109 mg/dL Normal 70-110 [facility] Comment on above: Result Comment: *Thi s reference range applies to fasting specimens only. Performed By: #### M 110.0050 #### Main Laboratory ([facility]) [address] [place] [address] Drew Granger MD Phosphate [Mass/Vol] 2.6 mg/dL Normal 2.4-4.7 [facility] Comment on above: Performed By: #### M 110.0050 #### Main Laboratory ([facility]) [address] [place] [address] Drew Granger MD Potassium [Moles/Vol] 4.6 mmol/L Normal 3.6-5.0 [facility] Comment on above: Performed By: #### M 110.0050 #### Main Laboratory ([facility]) [address] [place] [address] Drew Granger MD Sodium [Moles/Vol] 133 mmol/L Low 135-145 [facility] Comment on above: Performed By: #### M 110.0050 #### Main Laboratory ([facility]) [address] [place] [address] Drew Granger MD Urea nitrogen [Mass/Vol] 15 mg/dL Normal 7-20 [facility] Comment on above: Performed By: #### M 110.0050 #### Main Laboratory ([facility]) [address] [place] [address] Drew Granger MD Social Work Daily Noteon Social Work Daily Note [facility] Telegraph Service Rater Patient: GEOVANNY MEJÍA [address] : 1970 [place], [place] [address] Location: [phone] Unit #: [id number] Social Work Daily Note Jacqueline Edwards MECHANICAL MANUFACTURING TECHNICIAN, DOOR TO DOOR FUNDRAISING COLLECTOR Service Date: 09/15/23 SW Daily Note - [...] rehab. pt is needing to transfer her [facility] medicaid dual plan. SW got a copy of pts card, pt was unable to move much and couldnt sit up, she needed SW assistance to get her insurance card out of her wallet. Nurse LENY Hickey called with pt on Friday to transfer the Medicare portion. The Medicaid portion needs cancelled and re-submitted for [place] Medicaid for pts [facility] she will be living in. SW made contact with [employer] for assistance and to re-submit pts medicaid vilma. Pt would like a facility near her cousin ursula's house. There are looking at [facility] in [place], and [facility]. SW made contact with [facility] and they are not in network with [facility]. [facility] is in Network. SW follow up with pts cousin via phone as she would like her to help with finding a long term. Per Ursula there is another facility near her [facility]. SW made contact with [facility], they are in network with [facility], Per there admissions person Emmanuel they would be willing to bring pt in with a pending Medicaid number, per Britraza both Medicare and Medicaid would need transfered. Referral sent to [place] for review. Marisol from [facility] to meet with pt. SW to also meet back to assist with canceling [place] Medicaid if Marisol has not been able to assist pt. Soft Shoe Dancer: Jacqueline Edwards LSW, MSW Day 2 Note: 09/15/23 SW met back with pt, pt was asleep but easily aroused. SW explained to pt that we needed to terminate her [place] Medicaid before submitting an application for [place] Medicaid and this needed to be initiated prior to her Dcing to a SNF. SW called [facility] and had to leave a requesting that they call pt back to so that pt could terminate her [place] Medicaid there and give her new address and county. Soft Shoe Dancer: Jacqueline Edwards LSW, MSW - * Requested Intvs/Referrals * Knit Goods Washer Referrals: SNF/LTAC Placement Soft Shoe Dancer I Referrals: Financial Issues/Medicaid Applications - * HEALTHCARE DECISIONS * Living Will: Unknown Durable Power of Textile Designer for Health Care: Unknown [facility] DNR Comfort Care: Unknown [facility] DNR Comfort Care Arrest: Unknown - Home Health/IV Infusion/Wound Vac Home Health Referral Indicated: Yes Home Health List Provided: Yes Indication for Home Health: Wound Care, Other Patient's Response: Yes Home Health Agencies: [facility] Patient given options to view quality scores of facility?: No Entered by: MARY Rodriguez MSW on 09/15/23 1549 Report Signed by: LORNA Ovalle on 09/15/23 1553 < > Report Signed by: on Normal [facility] Social Work Daily Note [facility] Telegraph Service Rater Patient: GEOVANNY MEJÍA [address] : 1970 [place], [place] [address] Location: [phone] Unit #: [id number] Social Work Daily Note LORNA Hill Service [...] rehab. pt is needing to transfer her [facility] medicaid dual plan. SW got a copy of pts card, pt was unable to move much and couldnt sit up, she needed SW assistance to get her insurance card out of her wallet. Nurse LENY Hickey called with pt on Friday to transfer the Medicare portion. The Medicaid portion needs cancelled and re-submitted for [place] Medicaid for pts county she will be living in. SW made contact with [facility] for assistance and to re-submit pts medicaid vilma. Pt would like a facility near her cousin ursula's house. There are looking at [facility] in [place], and [facility]. SW made contact with [facility] and they are not in network with [facility]. [facility] is in Network. SW follow up with pts cousin via phone as she would like her to help with finding a long term. Per Ursula there is another facility near her [facility]. SW made contact with [facility], they are in network with [facility], Per there admissions person Emmanuel they would be willing to bring pt in with a pending Medicaid number, per Emmanuel both Medicare and Medicaid would need transfered. Referral sent to [place] for review. Marisol from [facility] to meet with pt. SW to also meet back to assist with canceling [place] Medicaid if Marisol has not been able to assist pt. Soft Shoe Dancer: Jacqueline Edwards, MECHANICAL MANUFACTURING TECHNICIAN, DOOR TO DOOR FUNDRAISING COLLECTOR - * Information * Oriented to: Person, Place, Time, Situation Mental Status/Mood: Alert and Oriented, Cooperative - * Requested Intvs/Referrals * Knit Goods Washer Referrals: SNF/LTAC Placement Soft Shoe Dancer I Referrals: Financial Issues/Medicaid Applications - * HEALTHCARE DECISIONS * Living Will: Unknown Durable Power of Textile Designer for Health Care: Unknown [place] DNR Comfort Care: [place] DNR Comfort Care Arrest: Unknown - Home Health/IV Infusion/Wound Vac Home Health Referral Indicated: Yes Home Health List Provided: Yes Indication for Home Health: Wound Care, Other Patient's Response: Yes [place] Health [place]gen[place] Patient given options to view quality scores of facility?: No Entered by: MARY Rodriguez MSW on 09/15/23 1405 Report Signed by: LORNA Ovalle on 09/15/23 1421 < > Report Signed by: on Normal [facility] Absolute lymphocyte countOrd ered By: Troy Garber on 09-14-2023 Lymphocytes Auto (Unsp spec) [#/Vol] 2366 /cmm 6023-1267 [facility] Basophils Auto (Bld) [#/Vol] Ordered By: Troy Garber on 09-14-2023 Basophils (Bld) [#/Vol] 0 /cmm 0-200 L [facility] [place] [facility] Blood absolute eosinophil co untOrdered By: Troy Garber on 09-14-2023 Eosinophils (Bld) [#/Vol] 0 /cmm 0-500 [facility] Blood band neutrophils/100 l eukocytesOrdered By: Troy Garber on 09-14-2023 Band form neutrophils/100 WBC (Bld) 4.0 % 2-6 [facility] Blood monocytes/100 leukocyt esOrdered By: Troy Garber on 09-14-2023 Monocytes/100 WBC (Bld) 2.0 % 2-10 L [facility] [place] [facility] Blood neutrophils/100 leukoc ytesOrdered By: Troy Garber on 09-14-2023 Neutrophils/100 WBC (Bld) 81.0 % High 40-70 [facility] Blood target cells detection by light microscopyOrdered By: Troy Garber on 09-14-2023 Target cells LM Ql (Bld) Slight [facility] C-Reactive Proteinon 023 C-Reactive Protein 10.9 mg/dL High <1.0 [facility] Comment on above: Performed By: #### L 400.0410 #### Main Laboratory ([facility]) [address] [place] [address] Drew Granger MD CBC with Differentialon 08-25 Erythrocyte distribution width (RBC) [Ratio] 16.2 % High 12.0-16.0 [facility] Comment on above: Performed By: #### L 100.0000, L100.2000, L150.0000 ####Main Laboratory ([facility])[address] [place], [place] [phone] Nivar, MD Hematocrit (Bld) [Volume fraction] 24.1 % Low 35.0-44.0 [facility] Comment on above: Performed By: #### L 100.0000, L100.2000, L150.0000 ####Main Laboratory ([facility])[address], [place] [phone] Nivar, MD Hemoglobin (Bld) [Mass/Vol] 8.0 g/dL Low 12.0-15.0 [facility] Comment on above: Performed By: #### L 100.0000, L100.2000, L150.0000 ####Main Laboratory ([facility])[address] [place] [phone] Nivar, MD MCH (RBC) [Entitic mass] 28.5 pg Normal 27.5-33.0 [facility] Comment on above: Performed By: #### L 100.0000, L100.1999, L150.0000 ####Main Laboratory ([facility])[address] [place], [place] [phone] Nivar, MD MCHC (RBC) [Mass/Vol] 33.3 g/dL Normal 33.0-36.0 [facility] Comment on above: Performed By: #### L 100.0000, L100.2000, L150.0000 ####Main Laboratory ([facility])[address], [place] [phone] Nivar, MD MCV 85.6 CU MILKA Normal 80-97 [facility] Comment on above: Performed By: #### L 100.0000, L100.2000, L150.0000 ####Main Laboratory ([facility])[address] [place], [place] [phone] Nivar, MD Platelet Count 392 th/cmm Normal 150-400 [facility] Comment on above: Performed By: #### L 100.0000, L100.2000, L150.0000 ####Main Laboratory ([facility])[address] [phone] Nivar, MD RBC 2.81 mil/cmm Low 4.00-5.10 [facility] Comment on above: Performed By: #### L 100.0000, L100.2000, L150.0000 ####Main Laboratory ([facility])[address] [phone] Nivar, MD WBC 18.2 th/cmm High 4.4-10.5 [facility] Comment on above: Performed By: #### L 100.0000, L100.2000, L150.0000 ####Main Laboratory ([facility])[address] [phone] Nivar, MD Erythrocyte Sedimentation Ra raquel 09-14-2023 ESR (Bld) [Velocity] 83 mm/h High <=30 [facility] Comment on above: Performed By: #### L 100.0000, L100.2000, L150.0000 ####Main Laboratory ([facility])[address] [phone] Nivar, MD Ionized Calciumon 09-14-2023 Ionized Calcium 1.06 mmol/L Low 1.15-1.29 [facility] Comment on above: Performed By: #### L 100.0050 #### Main Laboratory ([facility]) [address] [place] [address] Drew Granger MD Lymphocytes/100 WBC Manual c nt (Bld)Ordered By: Troy Garber on 09-14-2023 Lymphocytes/100 WBC (Bld) 13.0 % Low 15-45 [facility] Magnesiumon 09-14-2023 Magnesium [Mass/Vol] 2.2 mg/dL Normal 1.8-2.5 [facility] Comment on above: Performed By: #### L 400.0410 #### Main Laboratory ([facility]) [address] [place] [address] Drew Granger MD Manual Diffon 09-14-2023 Abs Baso Count 0 /cmm Normal 0-200 [facility] Comment on above: Performed By: #### L 100.0000, L100.2000, L150.0000 ####Main Laboratory ([facility])[address], [place] [phone] Nivar, MD Abs Eos Count 0 /cmm Normal 0-500 [facility] Comment on above: Performed By: #### L 100.0000, L100.2000, L150.0000 ####Main Laboratory ([facility])[address], [place] [phone] Nivar, MD Abs Lymph Count 2366 /cmm Normal 9732-4535 [facility] Comment on above: Performed By: #### L 100.0000, L100.2000, L150.0000 ####Main Laboratory ([facility])[address], [place] [phone] Nivar, MD Abs Nash Count 364 /cmm Normal 0-800 [facility] Comment on above: Performed By: #### L 100.0000, L100.2000, L150.0000 ####Main Laboratory ([facility])[address], [place] [phone] Nivar, MD Abs Neut Count 90835 /cmm High 3527-8334 [facility] Comment on above: Performed By: #### L 100.0000, L100.2000, L150.0000 ####Main Laboratory ([facility])[address], [place] [phone] Nivar, MD Bands 4.0 % Normal 2-6 [facility] Comment on above: Performed By: #### L 100.0000, L100.2000, L150.0000 ####Main Laboratory ([facility])[address] [phone] Nivar, MD Lymphocytes 13.0 % Low 15-45 [facility] Comment on above: Performed By: #### L 100.0000, L100.2000, L150.0000 ####Main Laboratory ([facility])[address] [phone] Nivar, MD Monocytes 2.0 % Normal 2-10 [facility] Comment on above: Performed By: #### L 100.0000, L100.2000, L150.0000 ####Main Laboratory ([facility])[address] [phone] Nivar, MD Neutrophils 81.0 % High 40-70 [facility] Comment on above: Performed By: #### L 100.0000, L100.2000, L150.0000 ####Main Laboratory ([facility])[address] [phone] Nivar, MD Target Cells Slight Normal [facility] Comment on above: Performed By: #### L 100.0000, L100.2000, L150.0000 ####Main Laboratory ([facility])[address] [phone] Nivar, MD Monocytes Manual cnt (Bld) [ #/Vol]Ordered By: Troy Garber on 09-14-2023 Monocytes (Bld) [#/Vol] 364 /cmm 0-800 L [facility] [place] [facility] Neutrophils Manual cnt (Bld) [#/Vol]Ordered By: Troy Garber on 09-14-2023 Neutrophils (Bld) [#/Vol] 92760 /cmm High 6776-3832 [facility] No Panel InformationOrdered By: Troy Garber on 09-14-2023 Ionized Calcium 1.06 mmol/L Low 1.15-1.29 [facility] Osmolality of Serum or Plasm aOrdered By: Troy Jcarlos on 09-14-2023 Osmolality [Osmolality] 294 mOsm 270-300 L [facility] [place] [facility] Osmolality of UrineOrdered B y: Troy Garber on 09-14-2023 Osmolality (U) [Osmolality] 516 mOsm 50-1400 [facility] Comment on above: On average fluid int lynn: 300-900 mOsm/kgAfter 12-h fluid restriction: >850 mOsm/kg Osmolality, Serumon 09-14-20 23 Osmolality, Serum 294 mOsm Normal 270-300 [facility] Comment on above: Performed By: #### L 400.0059, L400.4800, L404.9000 ####Main Laboratory ([facility])[address] [place] [phone] Nivar, MD Osmolality, Urineon 09-14-20 23 Osmolality, Urine 516 mOsm Normal 50-1400 [facility] Comment on above: Result Comment: On a verage fluid intake: 300-900 mOsm/kg After 12-h fluid restriction: >850 mOsm/kg Performed By: #### L 400.4900 ####Main Laboratory ([facility])[address] [place] [phone] Nivar, MD Parathyroid Hormone,Intacton 09-14-2023 Parathyroid Hormone,Intact 45.6 U/mL Normal 12.0-88.0 [facility] Comment on above: Performed By: #### L 600.6150 #### Main Laboratory ([facility]) [address] [place] [address] Drew Granger MD Potassiumon 09-14-2023 Potassium [Moles/Vol] 3.2 mmol/L Low 3.6-5.0 [facility] Comment on above: Performed By: #### L 400.1500 #### Main Laboratory ([facility]) [address] [place] [address] Drew Granger MD Progress Note - Hospitalisto n 09-14-2023 Progress Note - Hospitalist [facility] Medical Records Patient: GEOVANNY MEJÍA [address] : 1970 [place], [place] [address] Location: [phone] Unit #: [id number] Progress Note - Hospitalist Troy Garber MD [...] Diet Texture: Regular Fluid Restrictions?: No Consult Senior Water/Wastewater Engineer for Oral Supplements/Nourishme nts?: No Discussed Patient's [...] -461.04 -252.36 (more content not included)... Normal [facility] Progress Note Neurosurgeryon 09-14-2023 Progress Note Neurosurgery [facility] Medical Records Patient: GEOVANNY MEJÍA [address] : 1970 [place], [place] [address] Location: [phone] Unit #: [id number] Progress Note Neurosurgery Lucy Lara PA-C Service [...] Clemons MD on 09/14/232011 < > Normal [facility] Progress Note Surgicalon Progress Note Surgical [facility] Medical Records Patient: GEOVANNY MEJÍA. : 1970 [place], [place] [address] Location: [phone] Unit #: [id number] Progress Note Surgical Justin Encinas ([facility] JODIE Service Dt/Tm: 09/14/23 0719 Patient seen and examined independently by me.??? [...] Results: 09/14/23 05:23 Images available, please contact [facility] Medical Records 09/14/23 05:23 Images available, please contact [facility] Medical RecordsLaboratory Results - last 24 hr WBC RBC Hgb Hct MCV MCH MCHC RDW Plt Count Neut % (Auto) Lymph % (Auto) Nash % (Auto) Eos % (Auto) WBC RBC Hgb Hct MCV MCH MCHC RDW Plt Count Neut % (Auto) Lymph % (Auto) Nash % (Auto) WBC RBC Hgb Hct MCV MCH MCHC RDW Plt Count Neut % (Auto) Lymph % (Auto) Nash % (Auto) WBC 33.0 H RBC 3.01 [...] Blood Cultu (more content not included)... Normal [facility] Renal Function Panelon 09-14 Albumin [Mass/Vol] 2.6 g/dL Low 3.5-5.0 [facility] Comment on above: Performed By: #### L 400.0410 #### Main Laboratory ([facility]) [address] [place] [address] Drew Granger MD Anion gap [Moles/Vol] 7 mmol/L Normal 4-12 [facility] Comment on above: Performed By: #### L 400.0410 #### Main Laboratory ([facility]) [address] [place] [address] Drew Granger MD Calcium [Mass/Vol] 7.30 mg/dL Low 8.8-10.5 [facility] Comment on above: Performed By: #### L 400.0410 #### Main Laboratory ([facility]) [address] [place] [address] Drew Granger MD Chloride [Moles/Vol] 96 mmol/L Low 101-111 [facility] Comment on above: Performed By: #### L 400.0410 #### Main Laboratory ([facility]) [address] [place] [address] Drew Granger MD CO2 [Moles/Vol] 31 mmol/L Normal 21-32 [facility] Comment on above: Performed By: #### L 400.0410 #### Main Laboratory ([facility]) [address] [place] [address] Drew Granger MD Creatinine [Mass/Vol] 0.68 mg/dL Normal 0.60-1.30 [facility] Comment on above: Performed By: #### L 400.0410 #### Main Laboratory ([facility]) [address] [place] [address] Drew Granger MD GFR Calculation > 60 Normal [facility] Comment on above: Result Comment: Infant Caregiver dontrell Kidney Disease stages by NKDF Stage eGFR I >90 II 60-89 III 30-59 IV 15-29 V <15 or dialysis AGE(years) AVERAGE GFR 50-59 93 ml/min/1.73 square meters Note:This result is normalized to 1.73 square meter body surface area. Height and weight are not factored. Performed By: #### L 400.0410 #### Main Laboratory ([facility]) [address] [place] [address] Drew Granger MD Glucose [Mass/Vol] 111 mg/dL High 70-110 [facility] Comment on above: Performed By: #### L 400.0410 #### Main Laboratory ([facility]) [address] [place] [address] Drew Granger MD Phosphate [Mass/Vol] 3.4 mg/dL Invalid Interpretation Code 2.4-4.7 [facility] Comment on above: Result Comment: Delt a: 2.2 on 09/14/23 Performed By: #### L 400.0410 #### Main Laboratory ([facility]) [address] [place] [address] Drew Granger MD Potassium [Moles/Vol] 2.8 mmol/L Low 3.6-5.0 [facility] Comment on above: Performed By: #### L 400.0410 #### Main Laboratory ([facility]) [address] [place] [address] Drew Granger MD Sodium [Moles/Vol] 134 mmol/L Low 135-145 [facility] Comment on above: Performed By: #### L 400.0410 #### Main Laboratory ([facility]) [address] [place] [address] Drew Granger MD Urea nitrogen [Mass/Vol] 17 mg/dL Normal 7-20 [facility] Comment on above: Performed By: #### L 400.0410 #### Main Laboratory ([facility]) [address], [place] [address] Drew Granger MD Albumin [Mass/Vol] 2.3 g/dL Low 3.5-5.0 [facility] Comment on above: Performed By: #### L 400.0410 #### Main Laboratory ([facility]) [address] [place] [address] Drew Granger MD Anion gap [Moles/Vol] 7 mmol/L Normal 4-12 [facility] Comment on above: Performed By: #### L 400.0410 #### Main Laboratory ([facility]) [address] [place] [address] Drew Granger MD Calcium [Mass/Vol] 7.20 mg/dL Low 8.8-10.5 [facility] Comment on above: Performed By: #### L 400.0410 #### Main Laboratory ([facility]) [address], [place] [address] Drew Granger MD Chloride [Moles/Vol] 98 mmol/L Low 101-111 [facility] Comment on above: Performed By: #### L 400.0410 #### Main Laboratory ([facility]) [address], [place] [address] Drew Granger MD CO2 [Moles/Vol] 27 mmol/L Normal 21-32 [facility] Comment on above: Performed By: #### L 400.0410 #### Main Laboratory ([facility]) [address] [place] [address] Drew Granger MD Creatinine [Mass/Vol] 0.57 mg/dL Low 0.60-1.30 [facility] Comment on above: Performed By: #### L 400.0410 #### Main Laboratory ([facility]) [address] [place] [address] Drew Granger MD GFR Calculation > 60 Normal [facility] Comment on above: Result Comment: [facility] Kidney Disease stages by NKDF Stage eGFR I >90 II 60-89 III 30-59 IV 15-29 V <15 or dialysis AGE(years) AVERAGE GFR 50-59 93 ml/min/1.73 square meters Note:This result is normalized to 1.73 square meter body surface area. Height and weight are not factored. Performed By: #### L 400.0410 #### Main Laboratory ([facility]) [address] [place] [address] Drew Granger MD Glucose [Mass/Vol] 146 mg/dL High 70-110 [facility] Comment on above: Performed By: #### L 400.0410 #### Main Laboratory ([facility]) [address] [place] [address] Drew Granger MD Phosphate [Mass/Vol] 2.2 mg/dL Low 2.4-4.7 [facility] Comment on above: Result Comment: Delt a: 4.5 on 09/13/23 Performed By: #### L 400.0410 #### Main Laboratory ([facility]) [address] [place] [address] Drew Granger MD Potassium [Moles/Vol] 3.1 mmol/L Low 3.6-5.0 [facility] Comment on above: Performed By: #### L 400.0410 #### Main Laboratory ([facility]) [address] [place] [address] Drew Granger MD Sodium [Moles/Vol] 132 mmol/L Low 135-145 [facility] Comment on above: Performed By: #### L 400.0410 #### Main Laboratory ([facility]) [address] [facility] [place] [address] Drew Granger MD Urea nitrogen [Mass/Vol] 17 mg/dL Normal 7-20 [facility] Comment on above: Performed By: #### L 400.0410 #### Main Laboratory ([facility]) [address] [facility] [place] [address] Drew Granger MD Serum or plasma folate measu rement (mass/volume)Ordered By: Troy Garber on 09-14-2023 Folate [Mass/Vol] 10.5 ng/mL >5.9 [facility] Serum or plasma intact parat hyroid hormone (iPTH) measurement (mass/volume)Ordered By: Troy Garber on 09-14-2023 Parathyrin.intact [Mass/Vol] 45.6 U/mL 12.0-88.0 [facility] Serum or plasma total combin ed vitamin D and metabolites measurement (mass/volume)Ordered By: Troy Garber on 09-14-2023 Vitamin D+Metabolites [Mass/Vol] 14.30 ng/mL Low 30.00-100.00 [facility] Comment on above: Optimal values are e stablished by the Clinical Guidelines Subcommittee of the Endocrine Society Task Force. (Journal of Clinical Endocrinology & Metabolism,2011;96)Status Vitamin D Concentration Range------- Deficient <20Insufficient 20 - 30Sufficient 30 - 100 Serum or plasma vitamin B12 measurement (mass/volume)Ordered By: Troy Garber on 09-14-2023 Cobalamin (Vitamin B12) [Mass/Vol] 883 pg/mL 180-914 [facility] Comment on above: B12 level of 145 - 1 80 is considered Indeterminate and level of <145 is considered Deficient. Vitamin B12 and Folateon Cobalamin (Vitamin B12) [Mass/Vol] 883 pg/mL Normal 180-914 [facility] Comment on above: Result Comment: B12 level of 145 - 180 is considered Indeterminate and level of <145 is considered Deficient. Performed By: #### L 400.0059, L400.4800, L404.9000 ####Main Laboratory ([facility])[address], [place] [phone] Nivar, MD Folate (Folic Acid) 10.5 ng/mL Normal >5.9 [facility] Comment on above: Performed By: #### L 400.0059, L400.4800, L404.9000 ####Main Laboratory ([facility])[address], [place] [phone] Nivar, MD Vitamin D,25-hydroxy (Total) on 09-14-2023 25(OH) Vitamin D,Total 14.30 ng/mL Low 30.00-100.00 [facility] Comment on above: Result Comment: Opti mal values are established by the Clinical Guidelines Subcommittee of the Endocrine Society Task Force. (Journal of Clinical Endocrinology & Metabolism,2011;96) Status Vitamin D Concentration Range ------- Deficient <20 Insufficient 20 - 30 Sufficient 30 - 100 Performed By: #### L 400.0065 ####Main Laboratory ([facility])[address], [place] [phone] Nivar, MD Anesthesia Pre-Op Evaluation on 09-13-2023 Anesthesia Pre-Op Evaluation [facility] Medical Records Patient: GEOVANNY MEJÍA [address] : 1970 [place], [place] [address] Location: [phone] Unit #: [id number] Anesthesia Pre-Op Evaluation Chante Martínez HAM CLERK Service Dt/Tm: 09/13/237 GEOVANNY MEJÍA is a 53 yr old [...] mg Hydromorphone HCl (Hydromorphone 6 Mg/30 Ml Butt Presser.Syring) 6 mg IV CAP MAKER DIRECTED VITALIY Stop: 12/17/23 11:31 Last Admin: [...] 1,000 mls @ 0 mls/hr IV DIRECTED [facility] Stop: 12/20/23 22:31 Last Admin: 09/12/23 22:43 [...] Ea) 1 catrina MEJÍA PHA TO DOSE [facility] Stop: 10/12/23 17:01 Ondansetron HCl (Ondansetron 4 [...] 01:39 CBC/BM (more content not included)... Normal [facility] Atherectomy of brachiocephal ic arteryOrdered By: Troy Garber on 09-13-2023 Atherectomy of brachiocephalic artery * [facility] Comment on above: Absolute granulocyto sis consistent with response toinfection, toxins, tissue injury, stresses or hemorrhage.Hypochromic, microcytic anemia with high RDWconsistent with iron deficiency. Suggest iron studies.Slide reviewed by Dr Krunal BESS on 09/15/23. Bacteria identified Cx Nom ( Wound)Ordered By: Alec Clemons on 09-13-2023 Wound Culture Staphylococcus aureus Abnormal [facility] Bacterial blood cultureOrder ed By: Jaret Ramírez (ID) on 09-13-2023 Bacteria identified Cx Nom (Bld) No growth after 5 days. [facility] Bacteria identified Cx Nom (Bld) No growth after 5 days. [facility] Basic Metabolic,Non-Fastingo n 09-13-2023 Anion gap [Moles/Vol] 8 mmol/L Normal 4-12 [facility] Comment on above: Performed By: #### L 400.0152, L400.5100 ####Main Laboratory ([facility])[address] [phone] Nivar, MD Calcium [Mass/Vol] 7.60 mg/dL Low 8.8-10.5 [facility] Comment on above: Performed By: #### L 400.0152, L400.5100 ####Main Laboratory ([facility])[address] [phone] Nivar, MD Chloride [Moles/Vol] 95 mmol/L Low 101-111 [facility] Comment on above: Performed By: #### L 400.0152, L400.5100 ####Main Laboratory ([facility])[address] [phone] Nivar, MD CO2 [Moles/Vol] 26 mmol/L Normal 21-32 [facility] Comment on above: Performed By: #### L 400.0152, L400.5100 ####Main Laboratory ([facility])[address] [place] [phone] Nivar, MD Creatinine [Mass/Vol] 0.74 mg/dL Normal 0.60-1.30 [facility] Comment on above: Performed By: #### L 400.0152, L400.5100 ####Main Laboratory ([facility])[address] [phone] Nivar, MD GFR Calculation > 60 Normal [facility] Comment on above: Result Comment: Infant Caregiver dontrell Kidney Disease stages by NKDF Stage eGFR I >90 II 60-89 III 30-59 IV 15-29 V <15 or dialysis AGE(years) AVERAGE GFR 50-59 93 ml/min/1.73 square meters Note:This result is normalized to 1.73 square meter body surface area. Height and weight are not factored. Performed By: #### L 400.0152, L400.5100 ####Main Laboratory ([facility])[address] [place] [phone] Nivar, MD Glucose [Mass/Vol] 189 mg/dL High 70-110 [facility] Comment on above: Performed By: #### L 400.0152, L400.5100 ####Main Laboratory ([facility])[address] [place] [phone] Nivar, MD Potassium [Moles/Vol] 3.8 mmol/L Normal 3.6-5.0 [facility] Comment on above: Performed By: #### L 400.0152, L400.5100 ####Main Laboratory ([facility])[address] [place] [phone] Nivar, MD Sodium [Moles/Vol] 129 mmol/L Low 135-145 [facility] Comment on above: Performed By: #### L 400.0152, L400.5100 ####Main Laboratory ([facility])[address] [place] [phone] Nivar, MD Urea nitrogen [Mass/Vol] 21 mg/dL High 7-20 [facility] Comment on above: Performed By: #### L 400.0152, L400.5100 ####Main Laboratory ([facility])[address] [place] [phone] Nivar, MD Body fluid cult/smr aer/anao n [...] hoxazole <=10 S Vancomycin <=0.5 S Normal [facility] Comment on above: Performed By: #### M 140.0200 #### Main Laboratory ([facility]) [address] [place] [address] Drew Granger MD C-Reactive Proteinon 023 C-Reactive Protein 15.9 mg/dL High <1.0 [facility] Comment on above: Performed By: #### M 110.0050 #### Main Laboratory ([facility]) [address] [place] [address] Drew Granger MD CBC with Differentialon 08-25 Abs Baso Count 0 /cmm Normal 0-200 [facility] Comment on above: Performed By: #### L 100.1999, L100.0000 #### Main Laboratory ([facility]) [address] [place] [address] Drew Granger MD Abs Eos Count 0 /cmm Normal 0-500 [facility] Comment on above: Performed By: #### L 100.1999, L100.0000 #### Main Laboratory ([facility]) [address] [place] [address] Drew Granger MD Abs Lymph Count 1000 /cmm Normal 4182-2595 [facility] Comment on above: Performed By: #### L 100.1999, L100.0000 #### Main Laboratory ([facility]) [address] [place] [phone] Drew Granger MD Abs Nash Count 500 /cmm Normal 0-800 [facility] Comment on above: Performed By: #### L 100.1999, L100.0000 #### Main Laboratory ([facility]) [address] [place] [address] Drew Granger MD Abs Neut Count 22735 /cmm High 6310-1763 [facility] Comment on above: Performed By: #### L 100, L100.0000 #### Main Laboratory ([facility]) [address] [place], [place] [address] Drew Granger MD Basophils/100 WBC (Bld) 0.1 % Normal 0-2 L [facility] Comment on above: Performed By: #### L , L100.0000 #### Main Laboratory ([facility]) [address] [place], [facility] Drew Granger MD EOS-Auto Diff 0.0 % Normal 0-6 [facility] Comment on above: Performed By: #### L , L100.0000 #### Main Laboratory ([facility]) [address] [place], [facility] Drew Granger MD Lymphocytes/100 WBC (Bld) 2.9 % Low 15-45 [facility] Comment on above: Performed By: #### L , L100.0000 #### Main Laboratory ([facility]) [address] [place], [facility] Drew Granger MD Nash- Auto Diff 1.4 % Low 2-10 [facility] Comment on above: Performed By: #### L , L100.0000 #### Main Laboratory ([facility]) [address] [place], [place] [address] Drew Granger MD Neut-Auto Diff 95.6 % High 40-70 [facility] Comment on above: Performed By: #### L , L100.0000 #### Main Laboratory ([facility]) [address] [place], [facility] Drew Granger MD NRBC-Auto 0.0 /100 WBC Normal <1 [facility] Comment on above: Performed By: #### L 100, L100.0000 #### Main Laboratory ([facility]) [address] [place] [address] Drew Granger MD Erythrocyte distribution width (RBC) [Ratio] 16.1 % High 12.0-16.0 [facility] Comment on above: Performed By: #### L 100, L100.0000 #### Main Laboratory ([facility]) [address] [place] [address] Drew Granger MD Hematocrit (Bld) [Volume fraction] 25.8 % Low 35.0-44.0 [facility] Comment on above: Performed By: #### L , L100.0000 #### Main Laboratory ([facility]) [address] [place] [address] Drew Granger MD Hemoglobin (Bld) [Mass/Vol] 8.5 g/dL Low 12.0-15.0 [facility] Comment on above: Performed By: #### L , L100.0000 #### Main Laboratory ([facility]) [address] [place] [phone] Drew Granger MD MCH (RBC) [Entitic mass] 28.2 pg Normal 27.5-33.0 [facility] Comment on above: Performed By: #### L , L100.0000 #### Main Laboratory ([facility]) [address] [place] [address] Drew Granger MD MCHC (RBC) [Mass/Vol] 32.9 g/dL Low 33.0-36.0 [facility] Comment on above: Performed By: #### L , L100.0000 #### Main Laboratory ([facility]) [address] [place] [address] Drew Granger MD MCV 85.6 CU MILKA Normal 80-97 [facility] Comment on above: Performed By: #### L , L100.0000 #### Main Laboratory ([facility]) [address] [place] [address] Drew Granger MD Platelet Count 289 th/cmm Normal 150-400 [facility] Comment on above: Performed By: #### L 100.1999, L100.0000 #### Main Laboratory ([facility]) [address] [place] [address] Drew Granger MD RBC 3.01 mil/cmm Low 4.00-5.10 [facility] Comment on above: Performed By: #### L 100.1999, L100.0000 #### Main Laboratory ([facility]) [address] [place] [address] Drew Granger MD WBC 33.0 th/cmm High 4.4-10.5 [facility] Comment on above: Performed By: #### L 100.1999, L100.0000 #### Main Laboratory ([facility]) [address] [place] [address] Drew Granger MD Erythrocyte Sedimentation Ra raquel 09-13-2023 ESR (Bld) [Velocity] 98 mm/h High <=30 [facility] Comment on above: Performed By: #### L 600.6150 #### Main Laboratory ([facility]) [address] [place] [address] Drew Granger MD Gram stain microscopyOrdered By: Alec Clemons on 09-13-2023 Microscopic observation Gram stain Nom (Unsp spec) [facility] MRI Thoracic Spine w/o Contr ason 09-13-2023 MRI Thoracic Spine w/o Contras [facility] Radiology Department Patient: GEOVANNY MEJÍA [address] : 1970 Sex: [place] [address] Location: [phone] Unit #: [id number] Ordering Phys: Alec Clemons MD Exam Date: 09/13/23 Exam: MRI MRI Thoracic Spine w/o Contras Result: See Report ADDENDUM: ADDENDUM [id number] On review of the images, there appear [...] by: Carolin Bhatia MD on 09/25/23 0036 [id number] STUDY: MRI THORACIC SPINE WITHOUT CONTRAST REASON [...] on 09/13/23439 Transcribed by: Carolin Bhatia on 10/21/23 0440 Report Signed by: Carolin Bhatia MD on 09/13/23 0440 Normal [facility] Magnesiumon 09-13-2023 Magnesium [Mass/Vol] 2.3 mg/dL Normal 1.8-2.5 [facility] Comment on above: Performed By: #### M 110.0050 #### Main Laboratory ([facility]) [address] [place] [address] Drew Granger MD Magnesium [Mass/Vol] 2.3 mg/dL Normal 1.8-2.5 [facility] Comment on above: Performed By: #### L 400.0152, L400.5100 ####Main Laboratory ([facility])[address], [place] [phone] Nivar, MD No Panel InformationOrdered By: Jaret Ramírez (ID) on 09-13-2023 Test not indicated [facility] Test not indicated [facility] Operative Reporton Operative Report [facility] Medical Records Patient: GEOVANNY MEJÍA [address] : 1970 [place], [place] [address] Location: [address] [place] [address] [id number] Operative Report Alec Clemons MD Operative Report DATE OF OPERATION: 09/13/23 PRE-OPERATIVE DIAGNOSES: Spinal epidural abscess POST-OPERATIVE DIAGNOSES: Thoracic spinal epidural abscess OPERATION PERFORMED: Hemilaminectomy T4-5 with evacuation of dorsal spinal epidural abscess; hemilaminectomy with transpedicular decompression T10 on the left side with evacuation of ventral spinal epidural abscess SURGEON: Alec Clemons MD CIRCUIT BOARD INSPECTOR: Lucy Lara PA-C; she participated in all [...] and 11 on the left side. The [id number]-[id number] technique was utilized to decompress the ventral [...] None Dictated by: Alec Clemons MD on 09/13/231503 Entered by: Alec Clemons MD on 09/13/231503 Report Signed by: Alec Clemons MD on 09/13/231510 < > Report Signed by: on Normal [facility] Platelet poor plasma interna tional normalized ratio (INR)Ordered By: Alec Clemons on 09-13-2023 INR Coag (PPP) [Relative time] 1.59 {INR} High 0.9-1.2 [facility] Comment on above: Standard dose INR: 2 .0-3.0High dose INR: 2.5-3.5 Prealbuminon 09-13-2023 Prealbumin [Mass/Vol] 5.0 mg/dL Low 16.0-38.0 [facility] Comment on above: Performed By: #### M 110.0050 #### Main Laboratory ([facility]) [address] [place] [address] Drew rGanger MD Procalcitoninon 09-13-2023 Procalcitonin 0.74 ng/mL High [facility] Comment on above: Result Comment: Susp ected [...] procalcitonin elevations. *Selin et al., Lancet 2010;375: DOI:10.1016/M2550-0951367-1653 [id number] *Will Kpaadia al., Arch Capacity Planner Med 2011;171:8735-1396 Performed By: #### M 110.0050 #### Main Laboratory ([facility]) [address] [place] [address] Drew Granger MD [facility] Progress Note - Hospitalist [facility] Medical Records Patient: GEOVANNY MEJÍA [address] : 1970 [place], [place] [address] Location: [phone] Unit #: [id number] Progress Note - Hospitalist Troy Garber MD [...] Diet Texture: Regular Fluid Restrictions?: No Consult Senior Water/Wastewater Engineer for Oral Supplements/Nourishme nts?: No Discussed Patient's [...] Pharynx Normal (more content not included)... Normal [facility] Progress Note Surgicalon Progress Note Surgical [facility] Medical Records Patient: GEOVANNY MEJÍA [address] : 1970 [place], [place] [address] Location: [phone] Unit #: [id number] Progress Note Surgical Justin Encinas ([facility] ASHTYN-Martir Service Dt/Tm: 09/13/23 1030 Patient seen and [...] Results: 09/13/23 08:51 Images available, please contact [facility] Medical Records 09/13/23 08:51 Images available, please contact [facility] Medical RecordsLaboratory Results - last 24 [...] Justin Moreno (more content not included)... Normal [facility] Prothrombin Timeon 3 INR Coag (PPP) [Relative time] 1.59 {INR} High 0.9-1.2 [facility] Comment on above: Result Comment: Petr dard dose INR: 2.0-3.0 High dose INR: 2.5-3.5 Performed By: #### L 200.0200 ####Main Laboratory ([facility])[address] [place], [place] [phone] Nivar, MD PT Coag (PPP) [Time] 18.5 s High 9.6-13.3 [facility] Comment on above: Performed By: #### L 200.0200 ####Main Laboratory ([facility])[address] [phone] Nivar, MD Prothrombin time (PT) in dylan telet poor plasma by coagulation assayOrdered By: Alec Clemons on 09-13-2023 PT Coag (PPP) [Time] 18.5 s High 9.6-13.3 [facility] RBC Morphologyon 09-13-2023 Target Cells Slight Normal [facility] Comment on above: Performed By: #### L 600.6150 #### Main Laboratory ([facility]) [address] [place] [address] Drew Granger MD Renal Function Panelon 09-13 Albumin [Mass/Vol] 2.7 g/dL Low 3.5-5.0 [facility] Comment on above: Performed By: #### M 110.0050 #### Main Laboratory ([facility]) [address] [place] [address] Drew Granger MD Anion gap [Moles/Vol] 9 mmol/L Normal 4-12 [facility] Comment on above: Performed By: #### M 110.0050 #### Main Laboratory ([facility]) [address] [place] [address] Drew Granger MD Calcium [Mass/Vol] 7.60 mg/dL Low 8.8-10.5 [facility] Comment on above: Performed By: #### M 110.0050 #### Main Laboratory ([facility]) [address] [place] [address] Drew Granger MD Chloride [Moles/Vol] 95 mmol/L Low 101-111 [facility] Comment on above: Performed By: #### M 110.0050 #### Main Laboratory ([facility]) [address] [place] [address] Drew Granger MD CO2 [Moles/Vol] 26 mmol/L Normal 21-32 [facility] Comment on above: Performed By: #### M 110.0050 #### Main Laboratory ([facility]) [address] [place] [address] Drew Granger MD Creatinine [Mass/Vol] 0.72 mg/dL Normal 0.60-1.30 [facility] Comment on above: Performed By: #### M 110.0050 #### Main Laboratory ([facility]) [address] [place] [address] Drew Granger MD GFR Calculation > 60 Normal [facility] Comment on above: Result Comment: Infant Caregiver dontrell Kidney Disease stages by NKDF Stage eGFR I >90 II 60-89 III 30-59 IV 15-29 V <15 or dialysis AGE(years) AVERAGE GFR 50-59 93 ml/min/1.73 square meters Note:This result is normalized to 1.73 square meter body surface area. Height and weight are not factored. Performed By: #### M 110.0050 #### Main Laboratory ([facility]) [address] [place] [place] [address] Drew Granger MD Glucose [Mass/Vol] 189 mg/dL High 70-110 [facility] Comment on above: Performed By: #### M 110.0050 #### Main Laboratory ([facility]) [address] [place] [address] Drew Granger MD Phosphate [Mass/Vol] 4.5 mg/dL Normal 2.4-4.7 [facility] Comment on above: Performed By: #### M 110.0050 #### Main Laboratory ([facility]) [address] [place] [address] Drew Granger MD Potassium [Moles/Vol] 3.8 mmol/L Normal 3.6-5.0 [facility] Comment on above: Performed By: #### M 110.0050 #### Main Laboratory ([facility]) [address] [place] [address] Drew rGanger MD Sodium [Moles/Vol] 130 mmol/L Low 135-145 [facility] Comment on above: Performed By: #### M 110.0050 #### Main Laboratory ([facility]) [address] [place] [address] Drew Granger MD Urea nitrogen [Mass/Vol] 21 mg/dL High 7-20 [facility] Comment on above: Performed By: #### M 110.0050 #### Main Laboratory ([facility]) [address] [address] Drew Granger MD Serum or plasma prealbumin m easurement (mass/volume)Ordered By: Troy Garber on 09-13-2023 Prealbumin [Mass/Vol] 5.0 mg/dL Low 16.0-38.0 [facility] Serum or plasma vancomycin m easurement (mass/volume)Ordered By: Hugo French on 09-13-2023 Vancomycin [Mass/Vol] 6.0 mcg/mL Low 15.0-40.0 [facility] Serum procalcitonin measurem entOrdered By: Troy Garber on 09-13-2023 Procalcitonin [Mass/Vol] 0.74 ng/mL High <0.50 [facility] Comment on above: Suspected Sepsis (Co ntinue [...] severe cardiogenic shock can cause procalcitonin elevations. *Selni et al., Lancet 2010;375: DOI:10.1016/K8008-5244 [phone])02189-1 *Will Fuchs et al., Arch Capacity Planner Med 2011;171:4487-0723 Status Note/Updateon 023 Status Note/Update [facility] Medical Records Patient: GEOVANNY MEJÍA [address] : 1970 [place] [address] Location: [address] [place] [address] Unit #: [id number] Status Note/Update Alec Clemons MD Service Dt/Tm: [...] < > Report Signed by: on Normal [facility] Type and Screen(No Crossmatc h)on 09-13-2023 AB Screen (IAT) Negative Normal [facility] Comment on above: Performed By: #### L 600.6150 #### Main Laboratory ([facility]) [address] [place] [address] Drew Granger MD ABO and Rh group Nom (Bld) Blood group O Rh(D) positive Normal [facility] Comment on above: Performed By: #### L 600.6150 #### Main Laboratory ([facility]) [address] [place] [address] Drew Granger MD US OR Tech Time 15 minson US OR Tech Time 15 mins [facility] Radiology Department Patient: GEOVANNY MEJÍA [address] : 1970 Sex: Belinda [place] [address] Location: [phone] Unit #: [id number] Ordering Phys: Alec Clemons MD Exam Date: 09/13/23 Exam: US US OR Tech Time 15 mins Result: See Report [id number] INDICATION: low back pain/weakness EXAMINATION: Ultrasound US [...] by: Rey Haider MD on 09/13/23922 Normal [facility] Vancomycin Random (AUC)on Vancomycin Random (AUC) 6.0 mcg/mL Low 15.0-40.0 L [facility] [place] [facility] Comment on above: Performed By: #### L 600.6150 ####Main Laboratory ([facility])[address], [place] [phone] Nivar, MD XR Lumbar Spine 1 Viewon XR Lumbar Spine 1 View [facility] Radiology Department Patient: GEOVANNY MEJÍA [address] : 1970 Sex: [place] [address] Location: [phone] Unit #: [id number] Ordering Phys: Alec Clemons MD Exam Date: 09/13/23 Exam: MAIN XR Lumbar Spine 1 View Result: See Report [id number] STUDY: X-RAY -lumbar SPINE REASON FOR EXAM: [...] by: Ismael MEJÍA,Freddy Nielsen on 09/13/231709 Normal [facility] Basic Metabolic Panel,Fastin nivia 09-12-2023 Anion gap [Moles/Vol] 10 mmol/L Normal 4-12 [facility] Comment on above: Performed By: #### L 400.0202, L400.5100 ####Main Laboratory ([facility])[address], [place] [phone] Nivar, MD Calcium [Mass/Vol] 7.60 mg/dL Low 8.8-10.5 [facility] Comment on above: Performed By: #### L 400.0202, L400.5100 ####Main Laboratory ([facility])[address] [phone] Nivar, MD Chloride [Moles/Vol] 97 mmol/L Low 101-111 [facility] Comment on above: Performed By: #### L 400.0202, L400.5100 ####Main Laboratory ([facility])[address] [phone] Nivar, MD CO2 [Moles/Vol] 25 mmol/L Normal 21-32 [facility] Comment on above: Performed By: #### L 400.0202, L400.5100 ####Main Laboratory ([facility])[address] [phone] Nivar, MD Creatinine [Mass/Vol] 0.57 mg/dL Low 0.60-1.30 [facility] Comment on above: Performed By: #### L 400.0202, L400.5100 ####Main Laboratory ([facility])[address] [phone] Nivar, MD GFR Calculation > 60 Normal [facility] Comment on above: Result Comment: Infant Caregiver dontrell Kidney Disease stages by NKDF Stage eGFR I >90 II 60-89 III 30-59 IV 15-29 V <15 or dialysis AGE(years) AVERAGE GFR 50-59 93 ml/min/1.73 square meters Note:This result is normalized to 1.73 square meter body surface area. Height and weight are not factored. Performed By: #### L 400.0202, L400.5100 ####Main Laboratory ([facility])[address] [place] [phone] Nivar, MD Glucose [Mass/Vol] 88 mg/dL Normal 70-110 [facility] Comment on above: Performed By: #### L 400.0202, L400.5100 ####Main Laboratory ([facility])[address] [phone] Nivar, MD Potassium [Moles/Vol] 3.6 mmol/L Normal 3.6-5.0 [facility] Comment on above: Performed By: #### L 400.0202, L400.5100 ####Main Laboratory ([facility])[address] [phone] Nivar, MD Sodium [Moles/Vol] 132 mmol/L Low 135-145 [facility] Comment on above: Performed By: #### L 400.0202, L400.5100 ####Main Laboratory ([facility])[address] [phone] Nivar, MD Urea nitrogen [Mass/Vol] 17 mg/dL Normal 7-20 [facility] Comment on above: Performed By: #### L 400.0202, L400.5100 ####Main Laboratory ([facility])[address] [phone] Nivar, MD CBC Without Differentialon Erythrocyte distribution width (RBC) [Ratio] 16.0 % Normal 12.0-16.0 [facility] Comment on above: Performed By: #### L 100.0050 #### Main Laboratory ([facility]) [address] [place] [address] Drew Granger MD Hematocrit (Bld) [Volume fraction] 29.6 % Low 35.0-44.0 [facility] Comment on above: Performed By: #### L 100.0050 #### Main Laboratory ([facility]) [address] [address] Drew Granger MD Hemoglobin (Bld) [Mass/Vol] 9.8 g/dL Low 12.0-15.0 [facility] Comment on above: Performed By: #### L 100.0050 #### Main Laboratory ([facility]) [address] [place] [address] Drew Granger MD MCH (RBC) [Entitic mass] 28.0 pg Normal 27.5-33.0 [facility] Comment on above: Performed By: #### L 100.0050 #### Main Laboratory ([facility]) [address] [place], [place] [address] Drew Granger MD MCHC (RBC) [Mass/Vol] 33.0 g/dL Normal 33.0-36.0 [facility] Comment on above: Performed By: #### L 100.0050 #### Main Laboratory ([facility]) [address] [place] [address] Drew Granger MD MCV 84.8 CU MILKA Normal 80-97 [facility] Comment on above: Performed By: #### L 100.0050 #### Main Laboratory ([facility]) [address] [place] [facility] Drew Granger MD Platelet Count 241 th/cmm Normal 150-400 [facility] Comment on above: Performed By: #### L 100.0050 #### Main Laboratory ([facility]) [address] [place] [address] Drew Granger MD RBC 3.49 mil/cmm Low 4.00-5.10 [facility] Comment on above: Performed By: #### L 100.0050 #### Main Laboratory ([facility]) [address] [place] [facility] Drew Granger MD WBC 31.4 th/cmm High 4.4-10.5 [facility] Comment on above: Performed By: #### L 100.0050 #### Main Laboratory ([facility]) [address] [place] [address] Lumbar Spine W/O Cont [id number] 31on 09-12-2023 CT Lumbar Spine W/O Cont [id number] [facility] Radiology Department Patient: GEOVANNY MEJÍA [address] : 1970 Sex: [place] [address] Location: [address] [place] [address] Unit #: [id number] Ordering Phys: Craig Rodriguez DO Exam Date: 09/12/23 Exam: CT CT Lumbar Spine [place] [id number] Result: See Report [id number] EXAM: CT LUMBAR SPINE WITHOUT INTRAVENOUS CONTRAST [...] reconstruction technique. This report was created using [employer] report generation technology. COMPARISON: CT 09/10/2023 FINDINGS: [...] 12:07 EDT Reading Location ID and State: [address] [place] [address] , Service support , cc: Craig Rodriguez ; None Dictated by: Freddy Guevara MD on 09/12/231206 Transcribed by: Freddy Guevara on 09/12/231206 Report Signed by: Ismael MEJÍA,Freddy Nielsen on 09/12/23 1207 Normal [facility] Ionized Calciumon 09-12-2023 Ionized Calcium 1.07 mmol/L Low 1.15-1.29 [facility] Comment on above: Performed By: #### L 100.0050 #### Main Laboratory ([facility]) [address] [place] [address] Drew Granger MD MRI Lumbar Spine w/wo Contro n 09-12-2023 MRI Lumbar Spine w/wo Contr [facility] Radiology Department Patient: GEOVANNY MEJÍA [address] : 1970 Sex: [place] [address] Location: [phone] Unit #: [id number] Ordering Phys: Craig Rodriguez DO Exam Date: 09/12/23 Exam: MRI MRI Lumbar Spine w/wo Contr Result: See Report [id number] INDICATION: CHRONIC LOW BACK PAIN WITH SCIATICA, [...] by: Alec Sen DO on 09/13/2333 Normal [facility] Magnesiumon 09-12-2023 Magnesium [Mass/Vol] 2.2 mg/dL Normal 1.8-2.5 [facility] Comment on above: Performed By: #### L 400.0202, L400.5100 ####Main Laboratory ([facility])[address], [place] [phone] Nivar, MD Progress Note - Hospitalisttheodore 09-12-2023 Progress Note - Hospitalist [facility] Medical Records Patient: GEOVANNY MEJÍA [address] : 1970 [place], [place] [address] Location: [phone] Unit #: [id number] Progress Note - Hospitalist Craig Rodriguez DO [...] negative to date Patient is on Dilaudid CAP MAKER due to her significant pain Her abdominal [...] Blood,Venous Blood (more content not included)... Normal [facility] Serum or plasma fasting gluc ose measurement (mass/volume)Ordered By: Willy Lechuga on 09-12-2023 Glucose post fast [Mass/Vol] 88 mg/dL 70-110 [facility] Basic Metabolic Panel,Fastin nivia 09-11-2023 Anion gap [Moles/Vol] 11 mmol/L Normal 4-12 [facility] Comment on above: Performed By: #### L 100.1999, L100.0000 #### Main Laboratory ([facility]) [address] [place] [address] Drew Granger MD Calcium [Mass/Vol] 7.50 mg/dL Low 8.8-10.5 [facility] Comment on above: Performed By: #### L , L100.0000 #### Main Laboratory ([facility]) [address] [place] [address] Drew Granger MD Chloride [Moles/Vol] 98 mmol/L Low 101-111 [facility] Comment on above: Performed By: #### L 100, L100.0000 #### Main Laboratory ([facility]) [address] [place] [address] Drew Granger MD CO2 [Moles/Vol] 23 mmol/L Normal 21-32 [facility] Comment on above: Performed By: #### L , L100.0000 #### Main Laboratory ([facility]) [address] [place] [address] Drew Granger MD Creatinine [Mass/Vol] 0.55 mg/dL Low 0.60-1.30 [facility] Comment on above: Performed By: #### L , L100.0000 #### Main Laboratory ([facility]) [address] [place] [address] Drew Granger MD GFR Calculation > 60 Normal [facility] Comment on above: Result Comment: Infant Caregiver dontrell Kidney Disease stages by NKDF Stage eGFR I >90 II 60-89 III 30-59 IV 15-29 V <15 or dialysis AGE(years) AVERAGE GFR 50-59 93 ml/min/1.73 square meters Note:This result is normalized to 1.73 square meter body surface area. Height and weight are not factored. Performed By: #### L , L100.0000 #### Main Laboratory ([facility]) [address] [place] [address] Drew Granger MD Glucose [Mass/Vol] 83 mg/dL Normal 70-110 [facility] Comment on above: Performed By: #### L , L100.0000 #### Main Laboratory ([facility]) [address] [place] [address] Drew Granger MD Potassium [Moles/Vol] 3.7 mmol/L Normal 3.6-5.0 [facility] Comment on above: Performed By: #### L , L100.0000 #### Main Laboratory ([facility]) [address] [place] [address] Drew Granger MD Sodium [Moles/Vol] 132 mmol/L Low 135-145 [facility] Comment on above: Performed By: #### L , L100.0000 #### Main Laboratory ([facility]) [address] [place] [address] Drew Granger MD Urea nitrogen [Mass/Vol] 15 mg/dL Normal 7-20 [facility] Comment on above: Performed By: #### L , L100.0000 #### Main Laboratory ([facility]) [address] [place] [address] Drew Grangre MD Blood Cultureon 09-11-2023 Bacteria identified Cx Nom (Bld) STAPH EPI recovered from one set of 2 sets. Isolation does not necessarily mean infection. If definitive ID and sensitivity is needed, call the microbiology department at extension [phone]. Isolate will be retained for seven days. ORGANISM 1: Staphylococcus aureus Growth from the aerobic and anaerobic blood culture bottle For MILKA results, see culture collected 09/08/23 [id number] ORGANISM 2: Staphylococcus epidermidis Growth from the aerobic blood culture bottle Normal [facility] Comment on above: Performed By: #### M 110.0050 #### Main Laboratory ([facility]) [address] [place] [address] Drew Granger MD Bacteria identified Cx Nom [...] hoxazole <=10 S Vancomycin <=0.5 S Normal [facility] Comment on above: Performed By: #### L 400.0410 #### Main Laboratory ([facility]) [address] [place] [address] Drew Granger MD CBC Without Differentialon Erythrocyte distribution width (RBC) [Ratio] 16.1 % High 12.0-16.0 [facility] Comment on above: Performed By: #### L , L100.0000 #### Main Laboratory ([facility]) [address] [place] [address] Drew Granger MD Hematocrit (Bld) [Volume fraction] 30.1 % Low 35.0-44.0 [facility] Comment on above: Performed By: #### L , L100.0000 #### Main Laboratory ([facility]) [address] [place] [address] Drew Granger MD Hemoglobin (Bld) [Mass/Vol] 9.8 g/dL Low 12.0-15.0 [facility] Comment on above: Performed By: #### L , L100.0000 #### Main Laboratory ([facility]) [address] [place] [address] Drew Granger MD MCH (RBC) [Entitic mass] 27.7 pg Normal 27.5-33.0 [facility] Comment on above: Performed By: #### L , L100.0000 #### Main Laboratory ([facility]) [address] [place] [address] Drew Granger MD MCHC (RBC) [Mass/Vol] 32.6 g/dL Low 33.0-36.0 [facility] Comment on above: Performed By: #### L , L100.0000 #### Main Laboratory ([facility]) [address] [place] [address] Drew Granger MD MCV 84.9 CU MILKA Normal 80-97 [facility] Comment on above: Performed By: #### L 100.1999, L100.0000 #### Main Laboratory ([facility]) [address] [place] [address] Drew Granger MD Platelet Count 180 th/cmm Normal 150-400 [facility] Comment on above: Performed By: #### L 100.1999, L100.0000 #### Main Laboratory ([facility]) [address] [place] [address] Drew Granger MD RBC 3.54 mil/cmm Low 4.00-5.10 [facility] Comment on above: Performed By: #### L 100.1999, L100.0000 #### Main Laboratory ([facility]) [address] [place] [address] Drew Granger MD WBC 29.8 th/cmm High 4.4-10.5 [facility] Comment on above: Performed By: #### L 100.1999, L100.0000 #### Main Laboratory ([facility]) [address] [place] [address] Drew Granger MD Case Management General Note on 09-11-2023 Case Management General Note [facility] Case Management Patient: GEOVANNY MEJÍA [address] : 1970 [place], [place] [address] Location: [facility] [phone] Unit #: [id number] Case Management General Note Evelyne Pena RN Service Date: 09/11/23 Case Management General Note - Note Note: 09/11 Patient to d/c to [facility] [place]. [address] [place] [address] 60. [place], [place] [address] - Letter Delivered Was Position Statement Letter Delivered?: Yes Entered by: Evelyne Pena RN on 09/11/23 1219 Report Signed by: Evelyne Pena RN on 09/11/23 1220 < > Co-Signed by: on Normal [facility] Magnesiumon 09-11-2023 Magnesium [Mass/Vol] 2.3 mg/dL Normal 1.8-2.5 [facility] Comment on above: Performed By: #### L 100.2000, L100.0000 #### Main Laboratory ([facility]) [address] [place] [address] Drew Granger MD Progress Note - Hospitalisto korina 09-11-2023 Progress Note - Hospitalist [facility] Medical Records Patient: GEOVANNY MEJÍA [address] : 1970 [place], [place] [address] Location: [phone] Unit #: [id number] Progress Note - Hospitalist Craig Rodriguez DO [...] positive for MSSA. Patient is on Dilaudid CAP MAKER due to her significant pain Increased abdominal [...] having abdominal pain, and still on Dilaudid CAP MAKER pump. No nausea or vomiting, no fever [...] < > Report Signed by: on Normal [facility] Basic Metabolic Panel,Fastin nivia 09-10-2023 Anion gap [Moles/Vol] 10 mmol/L Normal 4-12 [facility] Comment on above: Performed By: #### L 400.0202, L400.5100 ####Main Laboratory ([facility])[address] [place], [place] [phone] Nivar, MD Calcium [Mass/Vol] 7.70 mg/dL Low 8.8-10.5 [facility] Comment on above: Performed By: #### L 400.0202, L400.5100 ####Main Laboratory ([facility])[address] [place] [phone] Nivar, MD Chloride [Moles/Vol] 101 mmol/L Normal 101-111 [facility] Comment on above: Performed By: #### L 400.0202, L400.5100 ####Main Laboratory ([facility])[address] [phone] Nivar, MD CO2 [Moles/Vol] 23 mmol/L Normal 21-32 [facility] Comment on above: Performed By: #### L 400.0202, L400.5100 ####Main Laboratory ([facility])[address] [place] [phone] Nivar, MD Creatinine [Mass/Vol] 0.54 mg/dL Low 0.60-1.30 [facility] Comment on above: Performed By: #### L 400.0202, L400.5100 ####Main Laboratory ([facility])[address] [place] [phone] Nivar, MD GFR Calculation > 60 Normal [facility] Comment on above: Result Comment: Infant Caregiver dontrell Kidney Disease stages by NKDF Stage eGFR I >90 II 60-89 III 30-59 IV 15-29 V <15 or dialysis AGE(years) AVERAGE GFR 50-59 93 ml/min/1.73 square meters Note:This result is normalized to 1.73 square meter body surface area. Height and weight are not factored. Performed By: #### L 400.0202, L400.5100 ####Main Laboratory ([facility])[address] [place] [phone] Nivar, MD Glucose [Mass/Vol] 91 mg/dL Normal 70-110 [facility] Comment on above: Performed By: #### L 400.0202, L400.5100 ####Main Laboratory ([facility])[address] [place] [phone] Nivar, MD Potassium [Moles/Vol] 3.7 mmol/L Normal 3.6-5.0 [facility] Comment on above: Performed By: #### L 400.0202, L400.5100 ####Main Laboratory ([facility])[address] [place] [phone] Nivar, MD Sodium [Moles/Vol] 134 mmol/L Low 135-145 [facility] Comment on above: Performed By: #### L 400.0202, L400.5100 ####Main Laboratory ([facility])[address] [phone] Nivar, MD Urea nitrogen [Mass/Vol] 16 mg/dL Normal 7-20 [facility] Comment on above: Performed By: #### L 400.0202, L400.5100 ####Main Laboratory ([facility])[address] [phone] Nivar, MD CBC Without Differentialon Erythrocyte distribution width (RBC) [Ratio] 16.3 % High 12.0-16.0 [facility] Comment on above: Performed By: #### L 100.0050 #### Main Laboratory ([facility]) [address] [place] [address] Drew Granger MD Hematocrit (Bld) [Volume fraction] 30.4 % Low 35.0-44.0 [facility] Comment on above: Performed By: #### L 100.0050 #### Main Laboratory ([facility]) [address] [place] [address] Drew Granger MD Hemoglobin (Bld) [Mass/Vol] 10.0 g/dL Low 12.0-15.0 [facility] Comment on above: Performed By: #### L 100.0050 #### Main Laboratory ([facility]) [address] [place] [facility] Drew Granger MD MCH (RBC) [Entitic mass] 28.0 pg Normal 27.5-33.0 [facility] Comment on above: Performed By: #### L 100.0050 #### Main Laboratory ([facility]) [address] [place] [address] Drew Granger MD MCHC (RBC) [Mass/Vol] 33.0 g/dL Normal 33.0-36.0 [facility] Comment on above: Performed By: #### L 100.0050 #### Main Laboratory ([facility]) [address] [place] [address] Drew Granger MD MCV 84.9 CU MILKA Normal 80-97 [facility] Comment on above: Performed By: #### L 100.0050 #### Main Laboratory ([facility]) [address] [place] [address] Drew Granger MD Platelet Count 164 th/cmm Normal 150-400 [facility] Comment on above: Performed By: #### L 100.0050 #### Main Laboratory ([facility]) [address] [place] [address] Drew Granger MD RBC 3.58 mil/cmm Low 4.00-5.10 [facility] Comment on above: Performed By: #### L 100.0050 #### Main Laboratory ([facility]) [address] [place] [address] Drew Granger MD WBC 23.3 th/cmm High 4.4-10.5 [facility] Comment on above: Performed By: #### L 100.0050 #### Main Laboratory ([facility]) [address] [place] [address] Drew Granger MD Case Management Daily Noteon 09-10-2023 Case Management Daily Note [facility] Case Management Patient: GEOVANNY MEJÍA [address] : 1970 [place], [place] [address] Location: [phone] Unit #: [id number] Case Management Daily Note Evelyne Pena RN Service Date: 09/10/23 Case Mgmt Daily Note - Plan of Care Toy Assembly Supervisor Agrees with Attending and Consult Plan: Yes - Patient Preferences AND Goals What is the patient's preference?: Services to be Determined Recommended acute discharge goals: Services to be Determined - Hospital Stay Days Day 1 Comment: 09/08 Met with patient in the room. Patient is from [place]. She is up here to visit her sister. Patient reporting she is normally independent. Does not have a PCP. Patient would like to use [facility] OP Pharm for meds. Planning to have her cousin pick her up at d/c. Contact is her cousin Ursula. Denies having LW/dPOA. Toy Assembly Supervisor: Evelyne Pena, RN Day 2 Comment: 09/09 Met with patient in the room. Patient asking to get up and move around. PT/OT to evde. S/p L ABD drain placement. Patient agreeable to [facility] for drain mgmt if needed. Reporting she will be going to [facility] at d/c to stay with her cousin Ursula. spoke with patients cousin Ursula via telephone who reports she is ok with [facility] coming to her home if patient would go there at d/c. Ursula reporting patient was homeless in [place] and recently move to [place] with her sister Monique. Toy Assembly Supervisor: Evelyne Pena, RN Day 3 Comment: 09/10 D/c needs pending medical course. Jr present. Dilaudid CAP MAKER. PT/OT. ID c/s. Therapy recs for IPR vs OP PT. Will follow to assist with d/c needs. Toy Assembly Supervisor: Evelyne Pena, RN - Transportation Mode of [...] Entered by: Evelyne Pena RN on 09/10/23 09 Report Signed by: Evelyne Pena RN on 09/10/23 6412 < > Co-Signed by: on Normal [facility] MRSA screen, fecon 3 MRSA screen, fec No growth of MRSA after 2 days. Normal [facility] Comment on above: Performed By: #### M 110.0050 #### Main Laboratory ([facility]) [address] [place] [address] Drew Granger MD Magnesiumon 09-10-2023 Magnesium [Mass/Vol] 2.1 mg/dL Normal 1.8-2.5 [facility] Comment on above: Performed By: #### L 400.0202, L400.5100 ####Main Laboratory ([facility])[address], [place] [phone] Nivar, MD Progress Note - Hospitalisto n 09-10-2023 Progress Note - Hospitalist [facility] Medical Records Patient: GEOVANNY MEJÍA [address] : 1970 [place], [place] [address] Location: [phone] Unit #: [id number] Progress Note - Hospitalist Craig Rodriguez DO [...] positive for MSSA. Patient is on Dilaudid CAP MAKER due to her significant pain Vitals stable. [...] examined. She is currently on a dilaudid CAP MAKER pump and still having significant abdominal pain. [...] the EMR. 09/10/23 08:00 CT Abd/Pelvis W/Contrast [id number] Routine Microbiology: Microbiology 09/08/23 18:20 Blood,Venous Blood [...] < > Report Signed by: on Normal [facility] Basic Metabolic Panel,Fastin nivia 09-09-2023 Anion gap [Moles/Vol] 9 mmol/L Normal 4-12 [facility] Comment on above: Performed By: #### M 140.0200 #### Main Laboratory ([facility]) [address] [place] [address] Drew Granger MD Calcium [Mass/Vol] 8.10 mg/dL Low 8.8-10.5 [facility] Comment on above: Performed By: #### M 140.0200 #### Main Laboratory ([facility]) [address] [place] [address] Drew Granger MD Chloride [Moles/Vol] 97 mmol/L Low 101-111 [facility] Comment on above: Performed By: #### M 140.0200 #### Main Laboratory ([facility]) [address] [place] [address] Drew Granger MD CO2 [Moles/Vol] 26 mmol/L Normal 21-32 [facility] Comment on above: Performed By: #### M 140.0200 #### Main Laboratory ([facility]) [address] [place] [address] Drew Granger MD Creatinine [Mass/Vol] 0.65 mg/dL Normal 0.60-1.30 [facility] Comment on above: Performed By: #### M 140.0200 #### Main Laboratory ([facility]) [address] [place] [address] Drew Granger MD GFR Calculation > 60 Normal [facility] Comment on above: Result Comment: Infant Caregiver dontrell Kidney Disease stages by NKDF Stage eGFR I >90 II 60-89 III 30-59 IV 15-29 V <15 or dialysis AGE(years) AVERAGE GFR 50-59 93 ml/min/1.73 square meters Note:This result is normalized to 1.73 square meter body surface area. Height and weight are not factored. Performed By: #### M 140.0200 #### Main Laboratory ([facility]) [address] [place] [address] Drew Granger MD Glucose [Mass/Vol] 111 mg/dL High 70-110 [facility] Comment on above: Performed By: #### M 140.0200 #### Main Laboratory ([facility]) [address] [place] [address] Drew Granger MD Potassium [Moles/Vol] 3.8 mmol/L Normal 3.6-5.0 [facility] Comment on above: Performed By: #### M 140.0200 #### Main Laboratory ([facility]) [address] [place] [address] Drew Granger MD Sodium [Moles/Vol] 132 mmol/L Low 135-145 [facility] Comment on above: Performed By: #### M 140.0200 #### Main Laboratory ([facility]) [address] [place] [address] Drew Granger MD Urea nitrogen [Mass/Vol] 22 mg/dL High 7-20 [facility] Comment on above: Performed By: #### M 140.0200 #### Main Laboratory ([facility]) [address] [place] [address] Drew Granger MD CBC Without Differentialon Erythrocyte distribution width (RBC) [Ratio] 16.0 % Normal 12.0-16.0 [facility] Comment on above: Performed By: #### L , L100.0000 #### Main Laboratory ([facility]) [address] [place] [address] Drew Granger MD Hematocrit (Bld) [Volume fraction] 31.8 % Low 35.0-44.0 [facility] Comment on above: Performed By: #### L , L100.0000 #### Main Laboratory ([facility]) [address] [place] [address] Drew Granger MD Hemoglobin (Bld) [Mass/Vol] 10.6 g/dL Low 12.0-15.0 [facility] Comment on above: Performed By: #### L , L100.0000 #### Main Laboratory ([facility]) [address] [place] [facility] Drew Granger MD MCH (RBC) [Entitic mass] 28.4 pg Normal 27.5-33.0 [facility] Comment on above: Performed By: #### L , L100.0000 #### Main Laboratory ([facility]) [address] [place] [address] Drew Granger MD MCHC (RBC) [Mass/Vol] 33.3 g/dL Normal 33.0-36.0 [facility] Comment on above: Performed By: #### L , L100.0000 #### Main Laboratory ([facility]) [address] [place], [place] [address] Drew Granger MD MCV 85.4 CU [place] Normal 80-97 [facility] Comment on above: Performed By: #### L , L100.0000 #### Main Laboratory ([facility]) [address] [place], [place] [address] Drew Granger MD Platelet Count 172 th/cmm Normal 150-400 [facility] Comment on above: Performed By: #### L , L100.0000 #### Main Laboratory ([facility]) [address] [place], [place] [address] Drew Granger MD RBC 3.73 mil/cmm Low 4.00-5.10 [facility] Comment on above: Performed By: #### L , L100.0000 #### Main Laboratory ([facility]) [address] [place] [address] Drew Granger MD WBC 18.2 th/cmm High 4.4-10.5 [facility] Comment on above: Performed By: #### L , L100.0000 #### Main Laboratory ([facility]) [address] [place] [address] Abd/Pelvis W/Contrast 741 77on 09-09-2023 CT Abd/Pelvis W/Contrast [id number] [facility] Radiology Department Patient: GEOVANNY MEJÍA [address] : 1970 Sex: [place] [address] Location: [address] [place] [address] Unit #: [id number] Ordering Phys: Ryanne Morales PA-C Exam Date: 09/10/23 Exam: CT CT Abd/Pelvis W/Contrast [id number] Result: See Report [id number] STUDY: CT ABDOMEN AND PELVIS WITH CONTRAST [...] 10:20 EDT Reading Location ID and State: [address] [place] [address] , Service support , cc: Ryanne Morales PA-C; None Dictated by: Freddy Guevara MD on 09/10/23 1020 Transcribed by: Freddy Guveara on 09/10/23 1020 Report Signed by: Ismael MEJÍA,Freddy Nielsen on 09/10/23 1020 Normal [facility] Case Management Admissionon 09-09-2023 Case Management Admission [facility] Case Management Patient: GEOVANNY MEJÍA [address] : 1970 [place], [place] [address] Location: [phone] Unit #: [id number] Case Management Admission Evelyne Pena RN Service Date: 09/08/23 Case Mgmt Admission/Disch Plan - Patient Preferences AND Goals What is the patient's preference?: Services to be Determined Recommended acute discharge goals: Services to be Determined - Hospital Stay Day Day 1 Comment: 09/08 Met with patient in the room. Patient is from [place]. She is up here to visit her sister. Patient reporting she is normally independent. Does not have a PCP. Patient would like to use [facility] OP Pharm for meds. Planning to have her cousin pick her up at d/c. Contact is her cousin Ursula. Denies having LW/dPOA. Toy Assembly Supervisor: Evelyne Pena, RN - Demographics Current Diagnosis(s): Intra abdominal abscess Information Given by: Patient Primary Insurance: [employer] Family/Caregiver Contact: Ursula Relationship: shankar Does the patient have VA services?: No Does the patient have a [facility] provider?: No - Readmission Information Was the patient readmitted within the past 30 days?: No Where was the patient admitted from?: Home Does Patient have any Services in Place?: No - Healthcare Decisions Code Status Per Patient Request (Full Code, DNRCC, DNRCCA): Full code Durable Power of Textile Designer for Health Care: Unknown State of [place] DNR Comfort Care: Unknown [facility] DNR Comfort Care Arrest: Unknown - Mental Status Prior Mental Status: Alert and Oriented Current Mental Status: Alert and Oriented - Living Situation Home Situation: Lives Alone Home Type: Single Family Home Levels: 1 Stairs: Yes Does the patient drive?: Yes - Support System Support System: Friends - Skilled Days Has patient been in a halfway facility in past 60 days: No - [...] No If Yes to either question, notify Telegraph Service Rater.: No - Discharge Plan Discharge Plan Discussed [...] Entered by: Evelyne Pena RN on 09/08/23 5398 Report Signed by: Evelyne Pena RN on 09/09/23 1546 < > Co-Signed by: on Normal [facility] Case Management Daily Noteon 09-09-2023 Case Management Daily Note [facility] Case Management Patient: GEOVANNY MEJÍA. : 1970 [place], [place] [address] Location: [phone] Unit #: [id number] Case Management Daily Note Evelyne Pena RN Service Date: 09/09/23 Case Mgmt Daily Note - Plan of Care Toy Assembly Supervisor Agrees with Attending and Consult Plan: Yes - Patient Preferences AND Goals What is the patient's preference?: Services to be Determined Recommended acute discharge goals: Services to be Determined - Hospital Stay Days Day 1 Comment: 09/08 Met with patient in the room. Patient is from [place]. She is up here to visit her sister. Patient reporting she is normally independent. Does not have a PCP. Patient would like to use [facility] OP Pharm for meds. Planning to have her cousin pick her up at d/c. Contact is her cousin Ursula. Denies having LW/dPOA. Toy Assembly Supervisor: Evelyne Pena, RN Day 2 Comment: 09/09 Met with patient in the room. Patient asking to get up and move around. [facility] S/p L ABD drain placement. Patient agreeable to [facility] for drain mgmt if needed. Reporting she will be going to [facility] at d/c to stay with her cousin Ursula. spoke with patients cousin Ursula via telephone who reports she is ok with [facility] coming to her home if patient would go there at d/c. Ursula reporting patient was homeless in [place] and recently move to [place] with her sister Monique. Toy Assembly Supervisor: Evelyne Pena, RN - Transportation Mode of [...] Entered by: Evelyne Pena RN on 09/09/23 3492 Report Signed by: Evelyne Pena RN on 09/09/23 2581 < > Co-Signed by: on Normal [facility] Magnesiumon 09-09-2023 Magnesium [Mass/Vol] 2.1 mg/dL Normal 1.8-2.5 [facility] Comment on above: Performed By: #### M 140.0200 #### Main Laboratory ([facility]) [address] [place] [address] Drew Granger MD Progress Note - Bo hui 09-09-2023 Progress Note - Hospitalist [facility] Medical Records Patient: GEOVANNY MEJÍA [address] : 1970 [place], [place] [address] Location: [phone] Unit #: [id number] Progress Note - Hospitalist Craig Rodriguez DO [...] < > Report Signed by: on Normal [facility] Social Determinantson 2022 Social Determinants [facility] Case Management Patient: GEOVANNY MEJÍA [address] : 1970 [place], [place] [address] Location: [facility] [phone] Unit #: [id number] Social Determinants Evelyne Pena RN Service Date: [...] 1546 < > Co-Signed by: on Normal [facility] Vancomycin Random (AUC)on Vancomycin Random (AUC) 18.3 mcg/mL Normal 15.0-40.0 [facility] Comment on above: Performed By: #### L 600.6150 #### Main Laboratory ([facility]) [address] [place] [address] Drew Granger MD Atherectomy of brachiocephal ic arteryOrdered By: David Elena on 09-08-2023 Atherectomy of brachiocephalic artery Negative Negative [facility] Comment on above: Methodology: Nucleic Acid Amplification (Polymerase Chain Reaction,PCR) Bacteria identified Cx Nom ( Body fld)Ordered By: Freddy Guevara on 09-08-2023 Body Fluid Culture Staphylococcus aureus Abnormal [facility] Body Fluid Culture Staphylococcus aureus Abnormal [facility] CBC with Differentialon 08-24 Anisocytosis Ql (Bld) 1+ Normal [facility] Comment on above: Performed By: #### L , L100.0000 #### Main Laboratory ([facility]) [address] [place] [address] Drew Granger MD Erythrocyte distribution width (RBC) [Ratio] 15.7 % Normal 12.0-16.0 [facility] Comment on above: Performed By: #### L , L100.0000 #### Main Laboratory ([facility]) [address] [place] [address] Drew Granger MD Hematocrit (Bld) [Volume fraction] 30.6 % Low 35.0-44.0 [facility] Comment on above: Performed By: #### L , L100.0000 #### Main Laboratory ([facility]) [address] [place] [address] Drew Granger MD Hemoglobin (Bld) [Mass/Vol] 10.3 g/dL Low 12.0-15.0 [facility] Comment on above: Performed By: #### L , L100.0000 #### Main Laboratory ([facility]) [address] [place] [address] Drew Granger MD MCH (RBC) [Entitic mass] 28.6 pg Normal 27.5-33.0 [facility] Comment on above: Performed By: #### L , L100.0000 #### Main Laboratory ([facility]) [address] [place] [address] Drew Granger MD MCHC (RBC) [Mass/Vol] 33.7 g/dL Normal 33.0-36.0 [facility] Comment on above: Performed By: #### L , L100.0000 #### Main Laboratory ([facility]) [address] [place] [address] Drew Granger MD MCV 84.8 CU [place] Normal 80-97 [facility] Comment on above: Performed By: #### L , L100.0000 #### Main Laboratory ([facility]) [address] [place] [address] Drew Granger MD Platelet Count 213 th/cmm Normal 150-400 [facility] Comment on above: Performed By: #### L , L100.0000 #### Main Laboratory ([facility]) [address] [place] [address] Drew Granger MD RBC 3.61 mil/cmm Low 4.00-5.10 [facility] Comment on above: Performed By: #### L , L100.0000 #### Main Laboratory ([facility]) [address] [place] [address] Drew Granger MD WBC 24.9 th/cmm High 4.4-10.5 [facility] Comment on above: Performed By: #### L , L100.0000 #### Main Laboratory ([facility]) [address] [place] [address] Peritoneal Abscesson 08-24 CT Peritoneal Abscess [facility] Radiology Department Patient: GEOVANNY MEJÍA [address] : 1970 Sex: [place] [address] Location: [phone] Unit #: [id number] Ordering Phys: Bryant Epperson APRN, CNP Exam Date: 09/08/23 Exam: CT CT Peritoneal Abscess Result: See Report [id number] CT GUIDED FLUID COLLECTION DRAINAGE WITH PIGTAIL [...] Kristin Guevara MD DATE OF PROCEDURE: 09/08/2023 CIRCUIT BOARD INSPECTOR: NONE ESTIMATED BLOOD LOSS: Negligible SPECIMENS REMOVED: Sample sent to laboratory with appropriate orders. COMPLICATIONS: None Technique: Patient was positioned [id number] on the CT table. Initial imaging demonstrated amorphous retroperitoneal fluid collection on the left side with small locules of low density that could represent either air or localized fat. The skin was prepared in standard, sterile fashion. The skin was anesthetized with lidocaine and a small skin incision was made. A 5-German Yueh needle/catheter was advanced under intermittent CT guidance into the fluid collection. A J-wire passed easily. The tract was dilated with an 8-German dilator. An 8-German drainage catheter was then advanced over the wire into position and the Moore loop was locked into position. The catheter [...] 16:18 EDT Reading Location ID and State: / [place] , Service support , [id number] CT GUIDED FLUID COLLECTION DRAINAGE WITH PIGTAIL [...] Kristin Guevara MD DATE OF PROCEDURE: 09/08/2023 CIRCUIT BOARD INSPECTOR: NONE ESTIMATED BLOOD LOSS: Negligible SPECIMENS REMOVED: Sample sent to laboratory with appropriate orders. COMPLICATIONS: None Technique: Patient was positioned [id number] on the CT table. Initial imaging demonstrated amorphous retroperitoneal fluid collection on the left side with small locules of low density that could represent either air or localized fat. The skin was prepared in standard, sterile fashion. The skin was anesthetized with lidocaine and a small skin incision was made. A 5-German Yueh needle/catheter was advanced under intermittent CT guidance into the fluid collection. A J-wire passed easily. The tract was dilated with an 8-German dilator. An 8-German drainage catheter was then advanced over the wire into position and the Moore loop was locked into position. The catheter [...] could repr (more content not included)... Normal [facility] Comprehensive Metabolic Pane naz 09-08-2023 Albumin [Mass/Vol] 2.7 g/dL Low 3.5-5.0 [facility] Comment on above: Performed By: #### L 100.2000, L100.0000 #### Main Laboratory ([facility]) [address] [place] [address] Drew Granger MD Albumin/Globulin [Mass ratio] 0.8 {ratio} Low 1.5-2.5 [facility] Comment on above: Performed By: #### L , L100.0000 #### Main Laboratory ([facility]) [address] [place] [address] Drew Granger MD Alk Phos 276 IU/L High 39-118 [facility] Comment on above: Performed By: #### L , L100.0000 #### Main Laboratory ([facility]) [address] [place] [facility] Drew Granger MD ALT [Catalytic activity/Vol] 20 U/L Normal 10-40 [facility] Comment on above: Performed By: #### L , L100.0000 #### Main Laboratory ([facility]) [address] [place] [address] Drew Granger MD Anion gap [Moles/Vol] 9 mmol/L Normal 4-12 [facility] Comment on above: Performed By: #### L , L100.0000 #### Main Laboratory ([facility]) [address] [place] [address] Drew Granger MD AST [Catalytic activity/Vol] 11 U/L Low 15-41 [facility] Comment on above: Performed By: #### L , L100.0000 #### Main Laboratory ([facility]) [address] [place] [address] Drew Granger MD Bili,Total 0.4 mg/dL Normal 0.2-1.0 [facility] Comment on above: Performed By: #### L , L100.0000 #### Main Laboratory ([facility]) [address] [place] [address] Drew Granger MD Calcium [Mass/Vol] 8.10 mg/dL Low 8.8-10.5 [facility] Comment on above: Performed By: #### L , L100.0000 #### Main Laboratory ([facility]) [address] [place] [address] Drew Granger MD Chloride [Moles/Vol] 98 mmol/L Low 101-111 [facility] Comment on above: Performed By: #### L , L100.0000 #### Main Laboratory ([facility]) [address] [place] [address] Drew Granger MD CO2 [Moles/Vol] 27 mmol/L Normal 21-32 [facility] Comment on above: Performed By: #### L , L100.0000 #### Main Laboratory ([facility]) [address] [place] [address] Drew Granger MD Creatinine [Mass/Vol] 0.63 mg/dL Normal 0.60-1.30 [facility] Comment on above: Performed By: #### L , L100.0000 #### Main Laboratory ([facility]) [address] [place] [address] Drew Granger MD GFR Calculation > 60 Normal [facility] Comment on above: Result Comment: Infant Caregiver dontrell Kidney Disease stages by NKDF Stage eGFR I >90 II 60-89 III 30-59 IV 15-29 V <15 or dialysis AGE(years) AVERAGE GFR 50-59 93 ml/min/1.73 square meters Note:This result is normalized to 1.73 square meter body surface area. Height and weight are not factored. Performed By: #### L , L100.0000 #### Main Laboratory ([facility]) [address] [place] [address] Drew Granger MD Glucose [Mass/Vol] 112 mg/dL High 70-110 [facility] Comment on above: Performed By: #### L 100, L100.0000 #### Main Laboratory ([facility]) [address] [place] [address] Drew Granger MD Potassium [Moles/Vol] 3.7 mmol/L Normal 3.6-5.0 [facility] Comment on above: Performed By: #### L 100, L100.0000 #### Main Laboratory ([facility]) [address] [place] [address] Drew Granger MD Protein [Mass/Vol] 6.0 g/dL Low 6.2-8.0 [facility] Comment on above: Performed By: #### L , L100.0000 #### Main Laboratory ([facility]) [address] [place] [address] Drew Granger MD Sodium [Moles/Vol] 134 mmol/L Low 135-145 [facility] Comment on above: Performed By: #### L 100, L100.0000 #### Main Laboratory ([facility]) [address] [place] [address] Drew Granger MD Urea nitrogen [Mass/Vol] 24 mg/dL High 7-20 [facility] Comment on above: Performed By: #### L , L100.0000 #### Main Laboratory ([facility]) [address] [place] [address] Drew Granger MD Gram stain microscopyOrdered By: Freddy Guevara on 09-08-2023 Microscopic observation Gram stain Nom (Unsp spec) [facility] Microscopic observation Gram stain Nom (Unsp spec) [facility] Lactic Acidon 09-08-2023 Lactate [Moles/Vol] 1.1 mmol/L Normal 0.5-2.0 [facility] Comment on above: Performed By: #### L 401.4160 ####Main Laboratory ([facility])[address], [place] [phone] Nivar, MD MRSA Screen,Nasal Rapidon Nasal MRSA Screen Not detected Normal NotDetected [facility] Comment on above: Result Comment: Meth odology: Nucleic Acid Amplification (Polymerase Chain Reaction,PCR) Performed By: #### L 800.5300 ####Main Laboratory ([facility])[address] [phone] Nivar, MD Manual Diffon 09-08-2023 Abs Baso Count 0 /cmm Normal 0-200 [facility] Comment on above: Performed By: #### L 100.1999, L100.0000 #### Main Laboratory ([facility]) [address] [place] [address] Drew Granger MD Abs Eos Count 0 /cmm Normal 0-500 [facility] Comment on above: Performed By: #### L 100, L100.0000 #### Main Laboratory ([facility]) [address] [place] [address] Drew Granger MD Abs Lymph Count 996 /cmm Low 7383-9396 [facility] Comment on above: Performed By: #### L 100.1999, L100.0000 #### Main Laboratory ([facility]) [address] [place] [address] Drew Granger MD Abs Nash Count 249 /cmm Normal 0-800 [facility] Comment on above: Performed By: #### L 100.1999, L100.0000 #### Main Laboratory ([facility]) [address] [place] [address] Drew Granger MD Abs Neut Count 57472 /cmm High 0712-0395 [facility] Comment on above: Performed By: #### L 100.1999, L100.0000 #### Main Laboratory ([facility]) [address] [place] [address] Drew Granger MD Bands 10.0 % High 2-6 [facility] Comment on above: Performed By: #### L 100.1999, L100.0000 #### Main Laboratory ([facility]) [address] [place] [address] Drew Granger MD Lymphocytes 4.0 % Low 15-45 [facility] Comment on above: Performed By: #### L 100.1999, L100.0000 #### Main Laboratory ([facility]) [address] [place] [address] Drew Granger MD Monocytes 1.0 % Low 2-10 [facility] Comment on above: Performed By: #### L 100.1999, L100.0000 #### Main Laboratory ([facility]) [address] [place] [address] Drew Granger MD Neutrophils 85.0 % High 40-70 [facility] Comment on above: Performed By: #### L 100.1999, L100.0000 #### Main Laboratory ([facility]) [address] [place] [address] Drew Granger MD Methicillin resistant Staphy lococcus aureus (MRSA) DNA detection by probe and targetOrdered By: David Elena on 09-08-2023 MRSA DNA GINETTE+probe Ql (Unsp spec) Not detected NotDetected [facility] Comment on above: Methodology: Nucleic Acid Amplification (Polymerase Chain Reaction,PCR) Peritoneal Fluid Creatinineo n 09-08-2023 Creatinine [Mass/Vol] 0.7 mg/dL Normal [facility] Comment on above: Order Comment: Comme nt fluid is from left retroperitoneum (NOT pleural) Result Comment: Audrey use protein and lipid content can vary considerably from specimen to specimen, the reference range and other method performance specifications have not been established for this body fluid. The test result must be integrated into the clinical context for interpretation. Performed By: #### L 350.3135, L350.3360 ####Main Laboratory ([facility])[address], [place] [phone] Nivar, MD Peritoneal fluid creatinine measurement (mass/volume)Ordered By: Freddy Guevara on 09-08-2023 Creatinine (Periton fld) [Mass/Vol] 0.7 mg/dL [facility] Comment on above: Because protein and lipid content can vary considerably from specimen to specimen, the reference range and other method performance specifications have not been established for this body fluid. The test result must be integrated into the clinical context for interpretation. Pharmacy Daily Noteon 2022 Pharmacy Daily Note [facility] Medical Records Patient: GEOVANNY MEJÍA. : 1970 [place], [place] [address] Location: [phone] Unit #: [id number] Pharmacy Daily Note Charity Adames PharmD Service [...] 09/08/231706 Report Signed by: Charity Adames on 09/08/23 1913 < > Co-Signed by: on Normal [facility] Pleural fluid triglyceride m easurement (mass/volume)Ordered By: Freddy Guevara on 09-08-2023 Triglyceride (Pleur fld) [Mass/Vol] 102 mg/dL [facility] Comment on above: Because protein and lipid content can vary considerably from specimen to specimen, the reference range and other method performance specifications have not been established for this body fluid. The test result must be integrated into the clinical context for interpretation. Pleural/Thor Fld Triglycerid eson 09-08-2023 Pleural Fuild Triglycerides 102 mg/dL Normal [facility] Comment on above: Order Comment: Comme nt [...] By: #### L 350.2075, L350.3360 ####Main Laboratory ([facility])[address] [place], [place] [phone] Nivar, MD Serum or plasma alanine price otransferase measurement (enzymatic activity/volume)Ordered By: Willy Lechuga on 09-08-2023 ALT [Catalytic activity/Vol] 20 U/L 10-40 [facility] Serum or plasma albumin/glob ulin mass ratioOrdered By: Willy Lechuga on 09-08-2023 Albumin/Globulin [Mass ratio] 0.8 {ratio} Low 1.5-2.5 [facility] Serum or plasma alkaline wilfrid sphatase measurement (enzymatic activity/volume)Ordered By: Willy Lechuga on 09-08-2023 ALP [Catalytic activity/Vol] 276 U/L High 39-118 [facility] Serum or plasma aspartate am inotransferase measurement (enzymatic activity/volume)Ordered By: Willy Lechuga on 09-08-2023 AST [Catalytic activity/Vol] 11 U/L Low 15-41 [facility] Serum or plasma lactate tamera urement (moles/volume)Ordered By: Willy Lechuga on 09-08-2023 Lactate [Moles/Vol] 1.1 mmol/L 0.5-2.0 [facility] Serum or plasma protein tamera urement (mass/volume)Ordered By: Willy Lechuga on 09-08-2023 Protein [Mass/Vol] 6.0 g/dL Low 6.2-8.0 [facility] Serum or plasma total biliru bin measurement (mass/volume)Ordered By: Willy Lechuga on 09-08-2023 Bilirubin [Mass/Vol] 0.4 mg/dL 0.2-1.0 [facility] US Abd Right Upper Quadranto n 09-08-2023 US Abd Right Upper Quadrant [facility] Radiology Department Patient: GEOVANNY MEJÍA1 [address] : 1970 Sex: [place] [address] Location: [address] [place] [address] Unit #: [id number] Ordering Phys: Willy Lechuga ([facility] Exam Date: 09/08/23 Exam: US US Abd Right Upper Quadrant Result: See Report [id number] EXAM: US ABDOMEN LIMITED, RIGHT UPPER QUADRANT CLINICAL INDICATION: abdominal tension TECHNIQUE: Real-time ultrasound of the right upper quadrant with image documentation. This report was created using [employer] report generation technology. COMPARISON: CT 09/07/2023. FINDINGS: [...] 15:42 EDT Reading Location ID and State: [address] [place] [address] , Service support , cc: Willy Saunders ([facility]) Ankush MEJÍA; None Dictated by: Freddy Guevara MD on 09/08/231541 Transcribed by: Freddy Guevara on 09/08/231541 Report Signed by: Ismael MEJÍA,Freddy Nielsen on 09/08/231541 Normal [facility] VRE Screen, Rapidon 09-08-20 Fecal VRE Screen Negative Normal Negative [facility] Comment on above: Result Comment: Meth odology: Nucleic Acid Amplification (Polymerase Chain Reaction,PCR) Performed By: #### L 600.6150 #### Main Laboratory ([facility]) [address] [place] [address] ABDOMEN PELVIS WITH [...] ID: [id number] Dictated by: RAIZA MENESES on [place] Sep 07, 2023 8:02:26 PM EDT Transcribed by: RAIZA MENESES on [place] Sep 07, 2023 8:02:26 PM EDT Finalized by: RAIZA MENESES on [place] Sep 07, 2023 8:02:26 PM EDT Normal [facility] Comment on above: Order Comment: Injur y/Trauma or Illness?:Illness/Other How long have you had these symptoms (acute/chronic)?:Acute Reason for exam?:incidental finding on lspine ct scan Type of Exam?:Initial Additional signs and symptoms?:n CT LUMBAR SPINE WITHOUT CONT RASTon 09-07-2023 CT LUMBAR SPINE WITHOUT CONTRAST EXAMINATION: [...] of the ventral thecal sac with resultant smsrlrwz-kt-ttumid central canal, bilateral recess stenosis. Mild bilateral foraminal narrowing noted. At L3-L4, broad-based disc bulging with interspace narrowing, thickened ligamenta flava and developmentally short pedicles is again noted, with kvspikzt-ip-dchbbf central canal stenosis, bilateral recess stenosis, and moderate degree of foraminal narrowing. At L4-L5, facet arthrosis, redundant ligamenta flava, bulging disc again appear to be associated with severe central canal, ibhbdrnr-gh-uxuowo bilateral recess stenosis, and zrqdiygh-ew-pnfjgl bilateral foraminal narrowing similar to previous. At [...] disc disease as previously described including multilevel oamdhijk-ts-lhnyvj central canal stenosis reflecting a combination of [...] the nature of the new inflammatory process. 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 Reason for exam?:chronic neck pain with [...] ID: [id number] Dictated by: ROHIT RIVERA on FriSep 04, 2023 7:27:26 PM EDT Transcribed by: ROHIT RIVERA on [place] Sep 04, 2023 7:27:26 PM EDT Finalized by: ROHIT RIVERA on [place] Sep 04, 2023 7:27:26 PM EDT Normal [facility] Comment on above: Order Comment: Injur y/Trauma or Illness?:Illness/Other How long have you had these symptoms (acute/chronic)?:Chronic Reason for exam?:chronic neck pain with wea gripping Type of Exam?:Initial Additional signs and symptoms?:see above CT LUMBAR SPINE WITHOUT CONT Steffi 09-04-2023 CT LUMBAR SPINE WITHOUT CONTRAST EXAMINATION: [...] ID: [id number] Dictated by: DIPTI BOGGS on [facility] Sep 04, 2023 7:25:51 PM EDT Transcribed by: DIPTI BOGGS on [facility] Sep 04, 2023 7:25:51 PM EDT Finalized by: DIPTI BOGGS on [facility] Sep 04, 2023 7:25:51 PM EDT Normal [facility] Comment on above: Order Comment: Injur [...] FriAug 06, 2023 5:26:17 PM EDT Normal [facility] Comment on above: Order Comment: Injur y/Trauma or Illness?:Illness/Other How long have you had these symptoms (acute/chronic)?:Acute Reason for exam?:low mid back pain radating to lt sciatica down to lt foot History of cancer?:n Surgeries, chemotherapy, or radiation?:n Type of Exam?:Initial Additional signs and symptoms?:n Vital Signs Date Time Vital Sign Value Performing Clinician Rosemary howard 08-08-2025 08:57-0400 Body weight 78.47 kg Brandener Gabriela DO Work Phone: [facility] 08-08-2025 08:57-0400 Diastolic blood pressure 84 mm[Hg] Chidiopher Gabriela DO Work Phone: [facility] 08-08-2025 08:57-0400 Heart rate 74 /min Christopher Gabriela DO Work Phone: [facility] 08-08-2025 08:57-0400 SaO2% (BldA) [Mass fraction] 95 % Christopher Gabriela DO Work Phone: [facility] 08-08-2025 08:57-0400 Systolic blood pressure 132 mm[Hg] Chidiopher Gabriela DO Work Phone: [facility] 02-05-2024 08:52-0400 Diastolic blood pressure 60 mm[Hg] Fahad Brannon [facility] 02-05-2024 08:52-0400 Heart rate 58 /min Fahad Brannon [facility] 02-05-2024 08:52-0400 Mean blood pressure 76 mm[Hg] Fahad Brannon [facility] 02-05-2024 08:52-0400 Respiratory rate 14 /min Fahad Brannon [facility] 02-05-2024 08:52-0400 Systolic blood pressure 108 mm[Hg] Fahad Brannon [facility] 12-24-2023 11:19-0500 Diastolic blood pressure 72 mm[Hg] Jaron Adan MD Work Phone: [facility] 12-24-2023 11:19-0500 Heart rate 62 /min Jaron Adan MD Work Phone: [facility] 12-24-2023 11:19-0500 SaO2% (BldA) [Mass fraction] 100 % Jaron Adan MD Work Phone: [facility] 12-24-2023 11:19-0500 Systolic blood pressure 159 mm[Hg] Jaron Adan MD Work Phone: [facility] 09-18-2023 17:59-0400 Diastolic blood pressure 69 mm[Hg] Physician None Work Phone: [facility] 09-18-2023 17:59-0400 Heart rate 95 /min Physician None Work Phone: [facility] 09-18-2023 17:59-0400 SaO2% (BldA) [Mass fraction] 95 % Physician None Work Phone: [facility] 09-18-2023 17:59-0400 Systolic blood pressure 123 mm[Hg] Physician None Work Phone: [facility] 09-18-2023 17:20-0400 Body temperature 98.4 [degF] Physician None Work Phone: [facility] 09-18-2023 17:20-0400 Respiratory rate 14 /min Physician None Work Phone: [facility] 09-18-2023 03:22-0400 Inhaled oxygen flow rate 2 L/min Physician None Work Phone: [facility] 09-15-2023 14:33-0400 Body height 162.56 cm Physician None Work Phone: [facility] 09-13-2023 03:09-0400 Body mass index (BMI) [Ratio] 31.4 kg/m2 Physician None Work Phone: [facility] 09-13-2023 02:30-0400 Body weight 83 kg Physician None Work Phone: [facility] 08-28-2023 16:02-0400 Diastolic blood pressure 74 mm[Hg] Aneta Valderrama MD Work Phone: [facility] 08-28-2023 16:02-0400 Systolic blood pressure 156 mm[Hg] Aneta Valderrama MD Work Phone: [facility] 08-28-2023 15:18-0400 Body height 162.6 cm Aneta Valderrama MD Work Phone: [facility] 08-28-2023 15:18-0400 Body mass index (BMI) [Ratio] 30.38 kg/m2 Aneta Valderrama MD Work Phone: [facility] 08-28-2023 15:18-0400 Body weight 80.29 kg Aneta Valderrama MD Work Phone: [facility] 08-28-2023 15:18-0400 Heart rate 103 /min Aneta Valderrama MD Work Phone: [facility] Encounters Encounter Date Encounter Type Care Provider Facility Start: 08-08-2025 End: 08-08-2025 ambulatory NON STAFF [facility] Work Phone: Start: 08-08-2025 End: 08-08-2025 Patient encounter procedure Ni Cole DO -[facility] Work Phone: Start: 07-30-2025 End: 07-30-2025 Telephone encounter Elvia Bhatia NP Work Phone: [facility] Start: 06-30-2025 End: 06-30-2025 ambulatory REBECCA [facility] Start: 06-20-2025 End: 06-20-2025 Telephone encounter Elvia Bhatia [employer] Work Phone: [facility] Start: 06-15-2025 End: 06-15-[facility] Start: 06-02-2025 End: 06-02-2025 Telephone encounter Elvia Bhatia [employer]INE ENGINE[employer] Work Phone: [facility] Start: 05-29-2025 End: 05-29-2025 Telephone encounter Elvia Bhatia MARINE ENG[employer] Work Phone: [facility] Start: 05-10-2025 End: 05-10-2025 Telephone encounter Elvia Bhatia MARINE ENG[employer] Work Phone: [facility] Start: 04-26-2025 End: 04-26-2025 Telephone encounter Elvia Bhatia [employer] ENG[employer] Work Phone: [facility] Start: 04-13-2025 End: 04-13-2025 ambulatory [facility] Start: 04-13-2025 End: 04-13-2025 Encounter for antibody response examination [facility] Start: 04-11-2025 End: 04-11-2025 ambulatory [facility] Start: 03-17-2025 End: 03-17-2025 Telephone encounter Elvia Bhatia MARINE ENGINE[employer] Work Phone: [facility] Start: 03-09-2025 End: 03-09-2025 Telephone encounter Elvia Bhatia MARINE ENG[employer] Work Phone: [facility] Start: 02-23-2025 End: 02-23-2025 Telephone encounter Elvia Bhatia MARINE ENGINE[employer] Work Phone: [facility] Start: 01-19-2025 End: 01-19-2025 Telephone encounter Elvia Bhatia MARINE ENGINE[employer] Work Phone: [facility] Start: 01-10-2025 End: 01-10-2025 Telephone encounter Elvia Bhatia MARINE ENG[employer] Work Phone: [facility] Start: 12-15-2024 End: 12-15-2024 Telephone encounter Elvia Bhatia MARINE ENG[employer] Work Phone: [facility] Start: 12-11-2024 End: 12-11-2024 Telephone encounter Elvia Bhatia [employer]INE ENG[employer] Work Phone: [facility] Start: 11-25-2024 End: 11-25-2024 Telephone encounter Elvia Bhatia MARINE ENG[employer] Work Phone: [facility] Start: 11-22-2024 End: 11-22-2024 Telephone encounter Elvia Bhatia MARINE ENG[employer] Work Phone: [facility] Start: 10-23-2024 End: 10-23-2024 Telephone encounter Elvia Bhatia MARINE ENG[employer] Work Phone: [facility] Start: 10-13-2024 End: 10-13-2024 ambulatory ELVIA BHATIA [facility] Start: 10-12-2024 End: 10-12-2024 Telephone encounter Elvia Bhatia MARINE ENG[employer] Work Phone: [facility] Start: 10-04-2024 End: 10-04-2024 Telephone encounter Elvia Bhatia MARINE ENG[employer] Work Phone: [facility] Start: 09-29-2024 End: 09-29-2024 Telephone encounter Elvia Bhatia MARINE ENG[employer] Work Phone: [facility] Start: 09-20-2024 End: 09-20-2024 Telephone encounter Elvia Bhatia MARINE ENGINE[employer] Work Phone: [facility] Start: 09-18-2024 End: 09-18-2024 Telephone encounter Elvia Bhatia MARINE ENG[employer] Work Phone: [facility] Start: 09-09-2024 End: 09-09-2024 Telephone encounter Elvia Bhatia MARINE ENGINE[employer] Work Phone: [facility] Start: 08-18-2024 End: 08-18-2024 Telephone encounter Elvia Bhatia MARINE ENGINE[employer] Work Phone: [facility] Start: 08-11-2024 End: 08-11-2024 Telephone encounter Elvia Bhatia NP Work Phone: [facility] Start: 07-21-2024 End: 07-21-2024 ambulatory ERICK SIMENTAL [facility] Start: 03-24-2024 End: 03-24-2024 ambulatory NI OCHOA Not Available Start: 02-05-2024 End: 02-06-2024 ambulatory MD Zac Garrett Facility:[facility] Start: 02-05-2024 End: 02-05-2024 Pain Management Fahad Brannon [facility] Start: 01-29-2024 End: 01-29-2024 ambulatory [facility] Start: 12-25-2023 End: 12-25-2023 ambulatory [facility] Start: 12-24-2023 End: 12-24-2023 ambulatory LORI FERNANDO Facility:[facility] Start: 12-24-2023 End: 12-24-2023 ambulatory JARON ADAN Facility:[facility] Start: 12-24-2023 End: 12-24-2023 Subsequent hospital visit by physician Jaron Adan MD Work Phone: [facility] Comment on above: Methicillin suscepti ble Staphylococcus aureus infection as the cause of diseases classified elsewhere Start: 11-28-2023 ambulatory RAJENDRA OLIVER Facility :[facility] Start: 11-15-2023 End: 11-16-2023 Emergency department patient visit NI CANO [facility] Start: 11-11-2023 End: 11-11-2023 ambulatory NOT IN SYSTEM REF PROV [facility] Start: 11-04-2023 End: 11-04-2023 Subsequent hospital visit by physician Lori Fernando MD Work Phone: [facility] Comment on above: Canceled (Preferred Different Location/Provider) Start: 11-04-2023 ambulatory LORI FERNANDO Faci lity:[facility] Start: 09-18-2023 End: 10-06-2023 Evaluation and management of inpatient SURGERY - NEURO CONSULT Facility:[facility] Start: 09-08-2023 End: 09-18-2023 Evaluation and management of inpatient David K Elena Facility:[facility] Start: 09-08-2023 End: 09-18-2023 Evaluation and management of inpatient Physician None Work Phone: [address] Start: 09-07-2023 End: 09-08-2023 Emergency department patient visit PROVIDER NOT IN SYSTEM [facility] Start: 09-04-2023 End: 09-04-2023 Emergency department patient visit PROVIDER NOT IN SYSTEM [facility] Start: 09-01-2023 End: 09-01-2023 Emergency department patient visit PROVIDER NOT IN SYSTEM [facility] Start: 08-28-2023 End: 08-28-2023 ambulatory PROVIDER NOT IN SYSTEM [facility] Start: 08-28-2023 End: 08-28-2023 Office outpatient new 45 minutes Aneta Valderrama MD Work Phone: [facility] Comment on above: Spondylolisthesis of lumbar region (Primary Dx); Lumbar radiculopathy Start: 08-06-2023 End: 08-06-2023 Emergency department patient visit PROVIDER NOT IN SYSTEM [facility] Procedures Date Procedure Procedure Detail Performing Clinician Start: 12-24-2023 Rmvl melly cvc w/o sub q port/battery container tester Jaron Adan MD Work Phone: Start: 12-24-[address] [facility] 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: Start: 09-24-2023 Antibody screen LORI FERNANDO Comment on above: Performed By: #### X M #### [facility] ([facility] [address] [place] [address] Start: 09-18-2023 MRI of cervical spin e [...] Physician None Work Phone: Abdominal hysterectomy Melba Brannon Arthroscopic repair of rotator cuff Fahad Brannon Comment on above: right section Fahad Doyle lamberto History of surgical procedure on cervical spine Vásquez Brannon Plan of Treatment Date Care Activity Detail Author Start: 08-08-2025 Patient referral [facility] Work Phone: Start: 07-25-2025 Influenza vaccination [facility] Start: 11-07-2024 Tetanus vaccination [facility] Start: 07-25-2024 Influenza vaccination Influenza Vaccine (#1) [facility] Start: 11-28-2023 End: 11-28-2023 Patient encounter procedure 11/28/2023 11:00 AM EST Office Visit Infectious [facility] [address] 4th [place] [id number] Rajendra Oliver MD [address] [place] [id number] Infectious Diseases Care [facility] Start: 11-14-2023 End: 11-14-2023 Patient encounter procedure 11/14/2023 1:15 PM EST Office Visit [facility] [address] 12th [place] [address] Randall Wells, SHELBYBS [address] [facility] [address] [place] [address] [facility] Start: 10-14-2023 End: 10-14-2023 Patient encounter procedure 10/14/2023 2:30 PM EST Office Visit [facility] [address] [facility] [facility] [address] [place] [address] Aneta Valderrama MD [address] [place] [address] [facility] Start: 09-18-2023 [facility] Start: 09-18-2023 Patient discharge [facility] Start: 09-18-2023 Cervical arthrodesis by anterior technique Anterior Cervical Discectomy & Fusion (Not Applicable) [facility] Start: 09-18-2023 Bedrest [facility] Start: 09-18-2023 Referral to general surgeon [facility] Start: 09-17-2023 Catheterization of vein [facility] Start: 09-17-2023 [facility] Start: 09-17-2023 Assessment of fluid loss from wound [facility] Start: 09-17-2023 Maintenance of tube [facility] Start: 09-17-2023 Vital signs measurements [facility] Start: 09-16-2023 Urinary catheter care management [facility] Start: 09-15-2023 Administrative procedure [facility] Start: 09-15-2023 Urinary catheter care management [facility] Start: 09-13-2023 Disease process or condition education [facility] Start: 09-13-2023 Notification of physician [facility] Start: 09-13-2023 Oxygen therapy [facility] Start: 09-13-2023 Patient transfer [facility] Start: 09-13-2023 Physical therapy assessment [facility] Start: 09-13-2023 Application of ice collar, cap or bag [facility] Start: 09-13-2023 Encouragement of deep breathing and coughing exercises [facility] Start: 09-13-2023 Measurement of urine output [facility] Start: 09-13-2023 Measuring intake and output [facility] Start: 09-13-2023 Removal of urinary catheter [facility] Start: 09-13-2023 Advance diet as tolerated [facility] Start: 09-13-2023 Bathing patient [facility] Start: 09-13-2023 Giving encouragement to perform activity [facility] Start: 09-13-2023 Measuring intake and output [facility] Start: 09-12-2023 Consultation [facility] Start: 09-10-2023 Referral to infectious diseases physician [facility] Start: 09-09-2023 Occupational therapy assessment [facility] Start: 09-09-2023 Physical therapy procedure [facility] Start: 09-08-2023 Assessment of fluid loss from wound [facility] Start: 09-08-2023 Maintenance of tube [facility] Start: 09-08-2023 Vital signs measurements [facility] Start: 09-08-2023 Hospital admission, emergency, from emergency room [facility] Start: 09-08-2023 Referral to service [facility] Start: 09-08-2023 Vital signs measurements [facility] Start: 09-08-2023 Referral to general surgeon [facility] Start: 07-25-2023 Influenza vaccination [facility] Start: 2019 Administration of herpes zoster vaccine Zoster Vaccines (1 of 2) [facility] Start: 2019 Screening for malignant neoplasm of colon Flexible sigmoidoscopy [facility] Start: 2019 Zoster vaccine hzv live for subcutaneous use ZOSTER (SHINGLES) VACCINE (1 of 2) [facility] Start: 2014 Screening for malignant neoplasm of colon COLORECTAL CANCER SCREENING DISCUSSION [facility] Start: 2009 Lipid panel LIPID SCREENING [facility] Start: 2009 Screening for malignant neoplasm of breast [facility] Start: 1999 Screening for malignant neoplasm of cervix [facility] Start: 1990 Screening for malignant neoplasm of cervix [facility] Start: 1987 Hepatitis C screening Hepatitis C Screening [facility] Start: 1984 HIV screening [facility] Start: 1981 Depression screening using PHQ-9 (Patient Health Questionnaire 9) score Depression Screening (PHQ-2/9) [facility] Start: 1972 History and physical examination, annual for health maintenance Wellness Visit [facility] Start: 1969 COVID-19 Vaccine (#1) COVID-19 Vaccine (#1) [facility] Start: 1969 Hepatitis B vaccination HEP B VACCINE (1 of 3 - 3-dose series) [facility] Start: 1969 Medicare Annual Wellness (AWV) Medicare Annual Wellness (AWV) [facility] Start: 1969 Screening for malignant neoplasm of colon [facility] End: 10-27-2023 MR Cervical spine WO and W contrast IV MRI SPINE CERVICAL WITH AND WITHOUT CONTRAST Imaging Routine Bacteremia 1 Occurrences starting 10/27/2023 until 10/27/2023 [facility] Comment on above: 1 Occurrences starting 10/27/2023 until 10/27/2023 MR Lumbar spine WO a nd W contrast IV [facility] Patient Education How to Prevent Surgical Site Infections Anterior Cervical Fusion (DC) Laminectomy (DC) General Anesthesia (DC) [facility] Work Phone: Patient referral [facility] Work Phone: Rmvl melly ctr vad w/s ubq port/battery container tester ctr/prph insj REMOVAL CENTRAL VENOUS ACCESS DEVICE TUNNELED W/ PORT PUMP Methicillin susceptible Staphylococcus aureus infection as the cause of diseases classified elsewhere [facility] End: 08-28-2024 XR Lumbar Spine Standard with Flex/Ext 4+ Views XR Lumbar Spine Standard with Flex/Ext 4+ Views Imaging Routine Spondylolisthesis of lumbar region Lumbar radiculopathy 1 Occurrences starting 08/28/2023 until 08/28/2024 [facility] Work Phone: Comment on above: 1 Occurrences starting 08/28/2023 until 08/28/2024 Payers Date Payer Category Payer Medicaid [id number] 2022 Medicare [id number] 2012 Medicare [id number] 2012 Medicare [id number] 1970 Unknown [id number] 2.. 840.1.821306.3.579.2. 1969 Unknown [id number] 2.16 840.1.309525.3.579.2. 1969 Unknown [id number] 2.16. 840.1.311933.3.579.2. 1969 Unknown [id number] 2.16. 840.1.490583.3.579.2. 1969 Unknown [id number] 2.16. 840.1.484767.3.579.2. 1969 Unknown [id number] 2.16.84 0.1.037802.3.579.2.1259 1969 Unknown [id number] 2.16.8 40.1.573305.3.579.2.727 1969 Unknown [id number] 2.16. 840.1.285923.3.579.2.594 1969 Unknown [id number] 2.16. 840.1.264107.3.579.2.594 1969 Unknown [id number] 2.16. 840.1.606071.3.579.2.594 1969 Unknown [id number] 2.16. 840.1.801688.3.579.2.594 1969 Unknown [id number] 2.16. 840.1.476674.3.579.2.594 1969 Unknown [id number] 2.16. 840.1.572761.3.579.2.594 1969 Unknown [id number] 2.16. 840.1.765292.3.579.2.594 1969 Unknown [id number] 2.16.8 40.1.392486.3.579.2.1286 1969 Unknown [id number] 2.16.8 40.1.623331.3.579.2.1286 1969 Unknown [id number] 2.16.8 40.1.848864.3.579.2.1286 1969 Unknown [id number] 2.16.84 0.1.341557.3.579.2.128 1969 Unknown [id number] 2.16.84 0.1.495566.3.579.2.128 1969 Unknown [id number] 2.16.84 0.1.736726.3.579.2.128 1969 Unknown [id number] 2.16.84 0.1.506569.3.579.2.128 1969 Unknown [id number] 2.16.84 0.1.940410.3.579.2.1286 1969 Unknown [id number] 2.16.84 0.1.929137.3.579.2.1286 1969 Unknown [id number] 2.16.84 0.1.220897.3.579.2.1286 1969 Unknown [id number] 2.16.84 0.1.362445.3.579.2.1286 1923 Medicaid [id number] Self-pay Unknown [id number] 2.16.8 40.1.333880.3.579.2.139 Social History Date Type Detail Facility Start: 08-06-2023 Tobacco smoking status NHIS Never smoked tobacco [facility] Start: 08-06-2023 Tobacco use and exposure Smokeless tobacco non-user [facility] Start: 08-28-2023 Alcohol intake Ex-drinker (finding) [facility] Start: 08-06-2023 History of Social function [facility] Start: 08-06-2023 End: 09-05-2023 Tobacco use panel [facility] Start: 1970 Sex Assigned At Not on file [facility] Start: 09-13-2023 End: 09-13-2023 Tobacco smoking status NHIS Ex-smoker (finding) [facility] Start: 09-13-2023 Socially/Occasionally L [facility] Start: 09-13-2023 Cigarettes [facility] Start: 09-13-2023 < 1 pack per day [facility] Start: 09-08-2023 Nicotine [facility] Start: 1970 Sex Assigned At Female [facility] Start: 03-24-2024 Tobacco smoking status INIS Tobacco smoking consumption unknown [facility] Start: 02-05-2024 Tobacco smoking status Heavy tobacco smoker (finding) [facility] Sex Female (finding) [facility] NEGATED: Highlighted row [facility] Medical Equipment Procedure Code Equipment Code Equipment Origin al Text Equipment Identifier Dates 6fr 2 Lumen Sharonda r Injectable Microintroducer Tray Catheter - [id number] [facility] Start: 09-30-2023 Comment on above: Description: Implant time-out completed by intra-procedural staff including this RN, photographic reproduction technician, and performing physician. The following was [...] Assessment Result Facility 02-05-2024 Functional Status N/A [facility] 09-14-2023 Functional status Home Situation Lives Al one [facility] Work Phone: 09-08-2023 Functional status Yes [facility] Work Phone: Mental Status Date Assessment Result Facility 09-08-2023 Cognitive function Oriented to P erson, Place and Time [facility] Work Phone: Clinical Notes 08-28-2023 to 07-30-2025 Telephone Encounter - Elvia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 about your care. For more health information, call the [facility] at [phone] or visit [email or web address] History and physical note* LAVELLE Ponce - [...] the procedure and matches procedure being performed. [facility] Work Phone: [phone] History and physical note* LAVELLE Ponce - [...] matches procedure being performed. [facility]* Nursing Notes - Syl Castro RN - 12/24/2023 10:59 AM EST Procedure completed of tunneled line removal by IR VILMA Justin Cabral. Line removed with tip intact. Pt tolerated procedure well with local numbing agent. Provided post [facility] discharge education materials and handouts to pt. Answered all pt questions. Phone numbers given for [facility] scheduling/nurse line ([phone]), voices understanding of materials.Upper chest dressing clean, dry, and intact, no swelling or shadowing noted. Pt to be escorted out of procedure room for discharge home upon completion of bedrest. [facility] Miscellaneous Notes* Nursing Notes - Syl Castro RN - 12/24/2023 10:59 AM EST Procedure completed of tunneled line removal by IR VILMA Justin Cabral. Line removed with tip intact. Pt tolerated procedure well with local numbing agent. Provided post [facility] discharge education materials and handouts to pt. Answered all pt questions. Phone numbers given for [facility] scheduling/nurse line ([phone]), voices understanding of materials.Upper chest dressing clean, dry, and intact, no swelling or shadowing noted. Pt to be escorted out of procedure room for discharge home upon completion of bedrest. [facility] Progress note Author Charity Adames [facility] October 16, 2023 7:23am Note Date/Time September 12, 2023 5 :19pm [facility] Medical Records Patient: GEOVANNY MEJÍA [address] : 1970 [place], [place] [address] Location: [address] [place] [address] Unit #: [id number] Pharmacy Daily Note Hugo French Service Dt/Tm: [...] 09/13 @ 0900 following first maintenance dose. [facility] 09[facility]08 Pt started on broad spectrum abx [...] on 10/15/23 1536 <<Signature on File>> < 0760 <<Signature on File>> <Electronically signed by Charity Adames PharmD> [facility] Work Phone: 1(463) 921-701311-21-2023 Progress note Author Jaret Ramírez (ID) [facility] October 14, 2023 8:13pm Note Date/Time September 15, 2023 7 :21pm [facility] Medical Records Patient: GEOVANNY MEJÍA [address] : 1970 [place], [place] [address] Location: [address] [place] [address] Unit #: [id number] Progress Note - Antibiotics Jaret Ramírez (ID) [...] has been seen at the facility in [place], [place] where she was noted to have significant back pain and discomfort. An operation was recommended at that time. It was decided to transfer her care to a neurological/neurosurgical service in [place], [place]. The patient was deciding whether or [...] Ramírez (KISHA) > Report Signed by: on [facility] Work Phone: 1(366) 404-923211-21-2023 Progress note Author Charity Adames [facility] October 14, 2023 7:24am Note Date/Time September 13, 2023 2 :24pm [facility] Medical Records Patient: GEOVANNY MEJÍA. : 1970 [place], [place] [address] Location: [phone] Unit #: [id number] Pharmacy Daily Note [facility]ae [employer] Service Dt/Tm: 09/13/23 1405 Pharmacy - Patient [...] days. Entered by: Renae Duenas on 09/13/23 1401 Report Signed by: Renae Duenas on 10/13/23 3409 <<Signature on File>> < 5613 <<Signature on File>> <Electronically signed by Charity Adames PharmD> [facility] Work Phone: 1(877) 856-423311-20-2023 Progress note Author Jaret Ramírez (ID) [facility] October 13, 2023 7:43pm Note Date/Time September 13, 2023 3 :24pm [facility] Medical Records Patient: GEOVANNY MEJÍA. : 1970 [place], [place] [address] Location: [phone] Unit #: [id number] Progress Note - Antibiotics Jaret Ramírez (ID) [...] Ramírez (KISHA) > Report Signed by: on [facility] Work Phone: 1(881) 958-384111-18-2023 Consult note Author Jaret Ramírez (ID) [facility] October 11, 2023 3:36pm Note Date/Time September 10, 2023 8 :54pm [facility] Medical Records Patient: GEOVANNY MEJÍA. : 1970 [place] [address] Location: [address] [place] [address] Unit #: [id number] Consultation Jaret Ramírez (JOHN MEJÍA Service Date: [...] a 53-year-old female, was transferred from the [facility] in [facility]. The patient was noted to have a acute onset of abdominal pain. The patient was seen and evaluated on transfer to the [facility]. On the evaluation a left sided retroperitoneal [...] 09/08/23 @ 14:50 by Bryant Epperson APRN, CHAIN LINK FENCE INSTALLER) No pertinent past surgical history Current Medications [...] 5,000 Units/Ml Vial) 5,000 units SC Q8H [facility] Stop: 12/17/23 14:01 Last Admin: 09/10/23 14:55 Dose: 5,000 units Hydromorphone HCl (Hydromorphone Hcl 1 Mg/Ml Amp) 0.5 mg IV PUSH Q4HPRN PRN PRN Reason: breakthrough pain Stop: 12/17/23 02:31 Last Admin: 09/09/23 06:41 Dose: 0.5 mg Hydromorphone HCl (Hydromorphone 6 Mg/30 Ml Butt Presser.Syring) 6 mg IV CAP MAKER DIRECTEDSCH Stop: 12/17/23 11:31 Last Admin: 09/10/23 [...] 1 Ea Cap) 1 ea PO DAILY [facility] Stop: 10/09/23 09:01 Last Admin: 09/10/23 10:43 [...] Catrina Fuller) 1 catrina MEJÍA .PHA TO [facility] Stop: 12/17/23 11:31 Ondansetron HCl (Ondansetron 4 [...] (2-10) L 09/08/23 18:27 Abs Neuts (Manual) 33654 /cmm (9090-7118) H 09/08/23 18:27 Abs Lymphs (Manual) 996 /cmm (1219-2157) L 09/08/23 18:27 Abs Monocytes (Manual) 249 [...] Diagnostic Data: 09/10/23 08:00 CT Abd/Pelvis W/Contrast 27748 Routine Assessment and Plan (1) Intra-abdominal abscess: [...] Jaret LUNSFORD) on 09/10/232052 Entered by: Jaret LUNSFORD)MD on 09/10/232052 Report Signed by: Jaret Ramírez MD (ID) on 10/11/23 1536 <<Signature on File>> <Electronically signed by Jaret LUNSFORD) > Report Signed by: on [facility] Work Phone: 1(787) 641-598211-18-2023 [facility]Tr[facility] Patient: GEOVANNY MEJÍA. : 1970 [place], [place] [address] Location: [facility] [phone] Unit #: [id number] Consultation Jaret Ramírez MD (ID) Service Date: [...] a 53-year-old female, was transferred from the [facility] in [facility]. The patient was noted to have a acute onset of abdominal pain. The patient was seen and evaluated on transfer to the [facility]. On the evaluation a left sided retroperitoneal [...] 09/08/23 @ 14:50 by Bryant Epperson APRN, CHAIN LINK FENCE INSTALLER) No pertinent past surgical history Current Medications [...] Electrolyte Protocol (Phosphorus Replacement Protocol) 1 catrina MD DIRECTED PRN; [...] mg Hydromorphone HCl (Hydromorphone 6 Mg/30 Ml Butt Presser.Syring) 6 mg IV CAP MAKER DIRECTED [facility] Stop: 12/17/23 11:31 Last Admin: 09/10/23 20:41 [...] 1 Ea Cap) 1 ea PO DAILY [facility] Stop: 10/09/23 09:01 Last Admin: 09/10/23 10:43 [...] Fuller) 1 catrina MEJÍA .PHA TO PLACE [facility] Stop: 12/17/23 11:31 Ondansetron HCl (Ondansetron 4 Mg/2 Ml Vial) 4 mg IV PUSH Q6HPRN PRN PRN Reason: Nausea and Vomiting Stop: 12/16/23 13:20 Polyethylene Glycol (Polyethylene Glycol 17 Gm Pkg) 17 gm PO DAILYPRN PRN PRN Reason: Constipation Stop: 12/16/23 13:20 Sodium Chloride (Sodium Chloride 0.9% 10 Ml Syr (Flush)) 5 ml FLUSH BID [facility] Stop: 12/18/23 21:01 Allergies/Adverse Reactions No Known Drug Allergies Allergy (Verified 09/08/23 09:58) Home Medications No Home Meds 09/09/23 [Confirmed 09/09/23] Past Medical History Medical History (Updated 09/20/23 @ 00:01 by Background Daemelba) HTN (hypertension) Past Surgical History Surgical History (Updated 09/20/23 @ 00:01 by Background Dasalbador) Intra-abdominal abscess DRAINED Social History Alcohol Amount: Socially/Occasionally Street Drugs: None Smoking Status: Former smoke (more content not included)...[facility]11[facility]-2023 Progress note Author Jaret Ramírez (ID) [facility] October 11, 2023 3:36pm Note Date/Time September 11, 2023 3 :23pm [facility] Medical Records Patient: GEOVANNY MEJÍA [address] : 1970 [place], [place] [address] Location: [address] [place] [address] Unit #: [id number] Progress Note - Antibiotics Jaret Ramírez (ID) MD Service Dt/Tm: 09/11/23 1521 Antibiotic Note Results: Patient is resting comfortably. She still has pain in the abdomen but she controls that with the CAP MAKER pump which is beginning to make her [...] that is with the use of the CAP MAKER pump. This patient may continue to be a problem which may not be managed long-term by the percutaneous catheter drainage. * The patient has back pain and she claims she cannot move her legs. I did try to assess the situation but the patient was on her CAP MAKER pump and she was sedated to the point examination could not be performed. I suggested neuro consult. TE 00:30 Entered by: Jaret Ramírez (ID)MD on 09/11/23 1521 Report Signed by: Jaret Ramírez MD (ID) on 10/11/23 1536 <<Signature on File>> <Electronically signed by Jaret Ramírez (ID) > Report Signed by: on [facility] Work Phone: 1(790) 201-660211-16-2023 Consult note Author Rohit Pimentel [facility] October 09, 2023 5:39pm Note Date/Time September 08, 2023 2 :27pm [facility] Medical Records Patient: GEOVANNY MEJÍA [address] : 1970 [place], [place] [address] Location: [facility] [phone] Unit #: [id number] Consultation Bryant Epperson APRN, CNP Service Date: [...] Time Seen: 14:00 Referring Physician: Willy Lechuga ([facility]) Reason for Consultation: Abdominal abscess History of Present Illness: Ms Mejía is a 53 y/o F who has a PMH of hypertension who was transferred from [facility] due to concerns for an intra-abdominal abscess.?CT [...] (Updated 09/08/23 @ 14:48 by Willy Lechuga ([facility]), ) HTN (hypertension) Past Surgical History Surgical History (Updated 09/08/23 @ 14:50 by Bryant Epperson APRN, CHAIN LINK FENCE INSTALLER) No pertinent past surgical history Social History Smoking Status: Former smoker Type of Tobacco: Cigarettes Smoking Amount: < 1 pack per day Smoking Stop Date: 09/05/23 Family History (Updated 09/08/23 @ 14:51 by Bryant Epperson APRN, CHAIN LINK FENCE INSTALLER) Denies family history of No pertinent family [...] Epperson APRN, CNP on 09/08/231426 Entered by: Bryant Epperson APRN-MONIK on 10/16/23 1427 Report Signed by: Bryant Epperson APRN-MONIK on 09/08/23 1500 <<Signature on File>> <Electronically signed by Bryant Epperson APRN, CNP> Report Signed by: Rohit Pimentel MD on 10/09/23 1739 <<Signature on File>> <Electronically signed by Rohit Pimentel MD> [facility] Work Phone: 1(321) 430-727211-16-2023 [facility] Patient: GEOVANNY MEJÍA [address] : 1970 [place], [place] [address] Location: [phone] Unit #: [id number] Consultation Bryant Epperson APRN, CNP Service Date: [...] Time Seen: 14:00 Referring Physician: Willy Lechuga ([facility]) Reason for Consultation: Abdominal abscess History of Present Illness: Ms Mejía is a 53 y/o F who has a PMH of hypertension who was transferred from [facility] due to concerns for an intra-abdominal abscess.???CT [...] (Updated 09/08/23 @ 14:48 by Willy Lechuga ([facility]), ) HTN (hypertension) Past Surgical History Surgical History (Updated 09/08/23 @ 14:50 by Bryant Epperson APRN, CHAIN LINK FENCE INSTALLER) No pertinent past surgical history Social History Smoking Status: Former smoker Type of Tobacco: Cigarettes Smoking Amount: < 1 pack per day Smoking Stop Date: 09/05/23 Family History (Updated 09/08/23 @ 14:51 by Bryant Epperson APRN, CHAIN LINK FENCE INSTALLER) Denies family history of No pertinent family [...] abscess: Plan Hospitalist attendi (more content not included)...[facility] 10-09-2023 Progress note Author Rohit Pimentel [facility] October 09, 2023 5:39pm Note Date/Time September 09, 2023 3 :24pm [facility] Medical Records Patient: GEOVANNY MEJÍA. : 1970 [place], [place] [address] Location: [phone] Unit #: [id number] Progress Note Surgical Ryanne Morales PA-C Service Dt/Tm: 09/09/23 1516 53 year old female with intraabdominal abscess. S/P IR drainage. Brian follow. IV antibiotics. Pain worsening and CAP MAKER started Patient seen and examined independently by [...] AVSS. Still continued high pain. Will add CAP MAKER pump for better pain control. Increased nausea. [...] % (Manual) 1.0 L Abs Neuts (Manual) 80846 H Abs Lymphs (Manual) 996 L Abs [...] on 09/09/23 1527 <<Signature on File>> < 0029 <<Signature on File>> <Electronically signed by Rohit Pimentel MD> [facility] Work Phone: 1(591) 931-485811-16-2023 Progress note Author Rohit Pimentel [facility] October 09, 2023 5:39pm Note Date/Time September 10, 2023 2 :53pm [facility] Medical Records Patient: GEOVANNY MEJÍA. : 1970 [place], [place] [address] Location: [phone] Unit #: [id number] Progress Note Surgical Ryanne Morales PA-C Service Dt/Tm: 09/10/23 1447 53 year old male with intraabdominal abscess. S/P IR drainage. Brian follow. IV antibiotics. Pain worsening and CAP MAKER started and pain better controlled. repeat CCT [...] vitals reviewed. AVSS. Pain better controlled with CAP MAKER pump. NPO with meds okay. -flatus/-BM CT [...] File>> <Electronically signed by Rohit Pimentel MD> [facility] Work Phone: 1(362) 646-950011-16-2023 Progress note Author Rohit Pimentel [facility] October 09, 2023 5:39pm Note Date/Time September 11, 2023 8 :17am [facility] Medical Records Patient: GEOVANNY MEJÍA. : 1970 [place], [place] [address] Location: [phone] Unit #: [id number] Progress Note Surgical Ryanne Morales PA-C Service Dt/Tm: 09/11/23 0814 53 year old male with intraabdominal abscess. S/P IR drainage. Brian follow. IV antibiotics. Pain worsening and CAP MAKER started and pain better controlled. repeat CCT [...] File>> <Electronically signed by Rohit Pimentel MD> [facility] Work Phone: 1([phone]) 315-241411-16-2023 Progress note Author Rohit Pimentel [facility] October 09, 2023 5:39pm Note Date/Time September 12, 2023 8 :51am [facility] Medical Records Patient: GEOVANNY MEJÍA. : 1970 [place], [place] [address] Location: [phone] Unit #: [id number] Progress Note Surgical Ryanne Morales PA-C Service [...] on 09/12/23 1255 <<Signature on File>> < 1739 <<Signature on File>> <Electronically signed by Rohit Pimentel MD> [facility] Work Phone: 1([phone]) 181-695811-04-2023 Progress note Author Rohit Pimentel [facility] September 27, 2023 11:24am Note Date/Time September 15, 2023 5 :09pm [facility] Medical Records Patient: GEOVANNY MEJÍA [address]. : 1970 [place], [place] [address] Location: [phone] Unit #: [id number] Status Note/Update Ryanne Morales PA-C Service Dt/Tm: 09/15/23 0443 Note: GEOVANNY MEJÍA is a 53 yr old F who was admitted on 09/08/23 for INTRA ABDOMINAL ABCESS. No surgical interventions required at this time with presentation improving, will sign off case. Entered by: Ryanne Morales PA-C on 09/15/231708 Report Signed by: Ryanne Morales PA-C on 09/15/231708 <<Signature on File>> < 1124 <<Signature on File>> <Electronically signed by Rohit Pimentel MD> [facility] Work Phone: 1(451) 348-969911-04-2023 Consult note Author Alec Clemons [facility] September 27, 2023 11:05am Note Date/Time September 13, 2023 2 :02am [facility] Medical Records Patient: GEOVANNY MEJÍA [address] : 1970 [place] [address] Location: [address] [place] [address] Unit #: [id number] Consultation Lucy Lara PA-C Service Date: 09/13/23 [...] past medical history of hypertension transferred from [facility] for abdominal pain on 09/08/2023. She was evaluated [facility] surgery and found to have left-sided [...] (2-10) L 09/08/23 18:27 Abs Neuts (Manual) 33553 /cmm (9477-9152) H 09/08/23 18:27 Abs Lymphs (Manual) 996 /cmm (4565-5341) L 09/08/23 18: Abs Monocytes (Manual) 249 [...] 09/12/23 10:31 CT Lumbar Spine W/O Cont 90002 Urgent 09/12/23 14:27 Lumbar Spine w/wo Contrast [...] point that she is required a continuous CAP MAKER. She has had difficulty walking since presentation [...] 09/13/23155 Entered by: Lucy Lara PA-C on 10/21/23 0156 Report Signed by: Lucy Lara PA-C on 09/13/23 0207 <<Signature on File>> < 1502 <<Signature on File>> <Electronically signed by Alec Clemons MD> [facility] Work Phone: 1([phone]) 340-647311-04-2023 NoteTr[facility] Patient: GEOVANNY MEJÍA [address] : 1970 [place], [place] [address] Location: [facility] [phone] Unit #: [id number] Consultation Lucy Lara PA-C Service Date: 09/13/23 [...] past medical history of hypertension transferred from [facility] for abdominal pain on 09/08/2023. She was evaluated at [facility] surgery and found to have [...] 09/12/23 10:31 CT Lumbar Spine W/O Cont 74763 Urgent 09/12/23 14:27 Lumbar Spine w/wo Contrast [...] point that she is required a continuous CAP MAKER. She has had difficulty walking since presentation [...] thoracic spine. I ex (more content not included)...[facility] 09-26-2023 History and physical note Author Willy Lechuga [facility] September 26, 2023 3:11pm Note Date/Time September 08, 2023 1 :58pm [facility] Medical Records Patient: GEOVANNY MEJÍA. : 1970 [place], [place] [address] Location: [address] [place] [address] Unit #: [id number] History and Physical Willy PerezSI[facility]ENTERAnika MEJÍA ADDENDUM: Past Medical History Medical History?(Updated 09/08/23 @ 14:48 by Willy Lechuga MD (SCP)) HTN (hypertension) Past Surgical History Surgical History?(Updated 09/08/23 @ 14:50 by Bryant Epperson APRN, CHAIN LINK FENCE INSTALLER) No pertinent past surgical history Social History Smoking Status:? Former smoker Type of Tobacco:? Cigarettes Smoking Amount:? < 1 pack per day Smoking Stop Date:? 09/05/23 Family History ?(Updated 09/08/23 @ 14:51 by Bryant Epperson APRN, CHAIN LINK FENCE INSTALLER) Denies family history of No pertinent family history Addendum Entered by: Willy PerezSIERRA VIST[facility] MEDICAL CENTERMD Anika on 09/26/23 at 1511 Addendum Signed by: Ankush PerezSI[facility])Willy MD on 09/26/23 1511 <<Signature on File>> <Electronically signed by Willy PeerzSIERRA VISTA REG[facility]) > Addendum Signed by: on Date of Entry Into Hospital: 09/08/23 Date of Service: 09/08/23 Time Seen: 13:54 Patient Information: Primary Care Provider: None Chief Complaint: INTRA ABDOMINAL ABCESS History Obtained From: Patient and EMR History of Present Illness: 53 old female with a past medical history of hypertension, no home medications on file, initially transferred from [facility] for possible intra-abdominal abscess. History and physical is limited due to no records available and patient was in pain at time of my clinical exam. As per EMR I did see that she had a left retroperitoneal fluid collection with moderate inflammation measuring4.7 X2.6X 4.5 cm with possible abscess formation. She was subsequently transferred to [facility] for general surgery consultation. On [...] (Updated 09/08/23 @ 14:48 by Willy Lechuga ([facility])MD) HTN (hypertension) Social History Smoking [...] sciatica, rightside Plan: As above. cc: Willy Lechuga MD (SCP); None Dictated by: Willy Lechuga MD (SCP) on 09/08/23 1354 Entered by: Willy Lechuga MD (SCP) on 09/08/23 1354 Report Signed by: Willy Lechuga MD (SCP) on 09/08/23 1448 <<Signature on File>> <Electronically signed by Willy Lechuga MD (SCP)> Report Signed by: on [facility] Work Phone: 1(442) 715-347911-03-2023 [facility] Patient: GEOVANNY MEJÍA [address] : 1970 [place], [place] [address] Location: [address] [place] [address] Unit #: [id number] History and Physical Willy Lechuga MD (SCP) ADDENDUM: Past Medical History Medical History???(Updated 09/08/23 @ 14:48 by Willy Lechuga MD (SCP)) HTN (hypertension) Past Surgical History Surgical History???(Updated 09/08/23 @ 14:50 by Bryant Epperson APRN, CHAIN LINK FENCE INSTALLER) No pertinent past surgical history Social History Smoking Status:??? Former smoker Type of Tobacco:??? Cigarettes Smoking Amount:??? < 1 pack per day Smoking Stop Date:??? 09/05/23 Family History ???(Updated 09/08/23 @ 14:51 by Bryant Epperson APRN, CHAIN LINK FENCE INSTALLER) Denies family history of No pertinent family history Addendum Entered by: Willy Lechuga MD (SCP) on 09/26/23 at 1511 Addendum Signed by: Willy Lechuga MD (SCP) on 09/26/23 1511 < > Addendum Signed by: on Date of Entry Into Hospital: 09/08/23 Date of Service: 09/08/23 Time Seen: 13:54 Patient Information: Primary Care Provider: None Chief Complaint: INTRA ABDOMINAL ABCESS History Obtained From: Patient and EMR History of Present Illness: 53 old female with a past medical history of hypertension, no home medications on file, initially transferred from [facility] for possible intra-abdominal abscess. History and physical is limited due to no records available and patient was in pain at time of my clinical exam. As per EMR I did see that she had a left retroperitoneal fluid collection with moderate inflammation measuring 4.7 X2.6X 4.5 cm with possible abscess formation. She was subsequently transferred to [facility] for general surgery consultation. On [...] (Updated 09/08/23 @ 14:48 by Willy Lechuga ([facility])MD) HTN (hypertension) Social History Smoking [...] (3) Back pain: Status: (more content not included)...[facility]10[facility]23 Progress note Author Evelyne Pena [facility] September 22, 2023 4:22pm Note Date/Time September 11, 2023 1 1:31am [facility] Case Management Patient: GEOVANNY MEJÍA. : 1970 [place], [place] [address] Location: [phone] Unit #: [id number] Case Management Daily Note Evelyne Pena RN Service Date: 09/11/23 Case Mgmt Daily Note - Plan of Care Toy Assembly Supervisor Agrees with Attending and Consult Plan: Yes - Patient Preferences & Goals What is the patient's preference?: Home Care Recommended acute discharge goals: Home Care - Hospital Stay Days Day 1 Comment: 09/08 Met with patient in the room. Patient is from [place]. She is up here to visit her sister. Patient reporting she is normally independent. Doesnot have a PCP. Patient would like to use [facility] OP Pharm for meds. Planning to have her cousin pick her up at d/c. Contact is her cousin Ursula. Denies having LW/dPOA. Toy Assembly Supervisor: Evelyne Pena, RN Day 2 Comment: 09/09 Met with patient in the room. Patient asking to get up and move around. PT/OT to eval. S/p L ABD drain placement. Patient agreeable to [facility] for drain mgmt if needed. Reporting she will be going to [facility] at d/c to staywith her cousin Ursula. CM spoke with patients cousin Ursula via telephone who reports she is ok with [facility] coming to her home if patient would go there at d/c. Ursula reporting patient was homeless in [place] and recently move to [place] with faith [employer]. Toy Assembly Supervisor: Evelyne Pena, RN Day 3 Comment: 09/10 D/c needs pending medical course. Jr present. Dilaudid CAP MAKER. PT/OT. ID c/s. Therapy recs for IPR vs OP PT. Will follow to assist with d/c needs. Toy Assembly Supervisor: Evelyne Pena, RN Day 4 Comment: 09/11 Met with patient in the room who is planning to d/c to her [facility] in [place], [place]. Patient is agreeable to [facility]. CM spoke with Ursula who is agreeable for patient to come there at d/c. Referral sent to [facility].Await approval. CAP MAKER. ABD drain. NPO. ID c/s. PT/OT. Toy Assembly Supervisor: Evelyne Pena RN - Home Health/IV Infusion/Wound Vac Home Health Referral Indicated: Yes Home Health List Provided: Yes Indication for Home Health: Wound Care, Other Patient's Response: Yes Home Health Agencies: [facility] Patient given the option to view [...] Signed by: Evelyne Pena RN on 09/22/23 8493 <<Signature on File>> <Electronically signed by Evelyne Pena RN> Co-Signed by: on [facility] Work Phone: 1(630) 198-459410-30-2023 Progress note Author Evelyne Pena [facility] September 22, 2023 4:22pm Note Date/Time September 12, 2023 1 0:33am [facility] Case Management Patient: GEOVANNY MEJÍA[address] : 1970 [place], [place] [address] Location: [phone] Unit #: [id number] Case Management Daily Note Evelyne Pena RN Service Date: 09/12/23 Case Mgmt Daily Note - Plan of Care Toy Assembly Supervisor Agrees with Attending and Consult Plan: Yes - Patient Preferences & Goals What is the patient's preference?: New SNF Recommended acute discharge goals: New SNF - COVID-19 Was Position Statement Letter Delivered?: Yes - Hospital Stay Days Day 1 Comment: 09/08 Met with patient in the room. Patient is from [place]. She is up here to visit her sister. Patient reporting she is normally independent. Doesnot have a PCP. Patient would like to use [facility] OP Pharm for meds. Planning to have her cousin pick her up at d/c. Contact is her cousin Ursula. Denies having LW/dPOA. Toy Assembly Supervisor: Evelyne Pena, RN Day 2 Comment: 09/09 Met with patient in the room. Patient asking to get up and move around. PT/OT to eval. S/p L ABD drain placement. Patient agreeable to [facility] for drain mgmt if needed. Reporting she will be going to [facility] at d/c to staywith her cousin Ursula. CM spoke with patients cousin Ursula via telephone who reports she is ok with [facility] coming to her home if patient would go there at d/c. Ursula reporting patient was homeless in [place] and recently move to [place] with faith [employer]aya. Toy Assembly Supervisor: Evelyne Pena, RN Day 3 Comment: 09/10 D/c needs pending medical course. Jr mullen. Dilaudid CAP MAKER. PT/OT. ID c/s. Therapy recs for IPR vs OP PT. Will follow to assist with d/c needs. Toy Assembly Supervisor: Evelyne Pena, RN Day 4 Comment: 09/11 Met with patient in the room who is planning to d/c to her [facility] in [place], [place]. Patient is agreeable to [facility]. CM spoke with Ursula who is agreeable for patient to come there at d/c. Referral sent to [facility].Await approval. CAP MAKER. ABD drain. NPO. ID c/s. PT/OT. Toy Assembly Supervisor: Evelyne Pena, RN Day 5 Comment: 09/12 Met with patient in the room to discuss d/c plan. Patient unable to move b/l LE. No sensation to RLE. Does have sesation to LLE. PT/OT recommending SNF, patient agreeable. She would like to go somewhere near her cousin Ursula in [place], [place]. CM [facility] [place]. SW c/s for SNF placement and [facility] assist with [place]. Patient will need a precert. CAP MAKER continues. If patient would improve with mobility, she has been accepted to [facility]. LENY spoke with Ursula via telephone to update. Toy Assembly Supervisor: Evelyne Pena, RN - Home Health/IV Infusion/Wound Vac Home Health Referral Indicated: Yes Home Health List Provided: Yes Indication for Home Health: Wound Care, Other Patient's Response: Yes Home Health Agencies: [facility] Patient given the option to view [...] by Evelyne Pena RN> Co-Signed by: on [facility] Work Phone: 1([phone]) 248-558210-27-2023 Progress note Author Jacqueline Edwards [facility] September 19, 2023 11:08am Note Date/Time September 19, 2023 1 1:08am [facility] [employer]ater Patient: GEOVANNY MEJÍA [address] : 1970 [place], [place] [address] Location: [phone] Unit #: [id number] Social Work Daily Note Jacqueline Edwards MECHANICAL MANUFACTURING TECHNICIAN, DOOR TO DOOR FUNDRAISING COLLECTOR Service Date: 09/19/23 SW Daily Note - [...] rehab. pt is needing to transfer her [facility] medicaid dual plan. SW got a copy of pts card, pt was unable to move much and couldnt sit up, she needed SW assistance to get her insurance card out of her wallet. Nurse LENY Hickey called with pt on Friday to transfer the Medicare portion. The Medicaid portion needs cancelled and re-submitted for [place] Medicaid for pts county she will be living in. SW made contact with [facility] for assistance and to re-submit pts medicaid vilma. Pt would like a facility near her cousin ursula's house. There are looking at [facility] in [facility] and [facility]. SW made contact with [facility] and they are not in network with [facility]. [facility] is in Network. SWfollow up with pts cousin via phone as she would like her to help with finding anursing home. Per Ursula there is another facility near her [facility]. SW made contact with [facility], they are in network with [facility], Per there admissions person Emmanuel they would be willing to bring pt in with a pending Medicaid number, per Emmanuel both Medicare and Medicaid would need transfered. Referral sent to [facility] for review. Marisol from [facility] to meet with pt. MANOLO to also meet back to assist with canceling [place] if Marisol has not been able to assist pt. Soft Shoe Dancer: Jacqueline Edwards, MECHANICAL MANUFACTURING TECHNICIAN, DOOR TO DOOR FUNDRAISING COLLECTOR Day 2 Note: 09/15/23 SW met back with pt, pt was asleep but easily aroused. MANOLO explained to pt that we needed to terminate her [place] Medicaid before submitting an application for [place] Medicaid and this needed to be initiated prior to her Dcing to a SNF. SW called [facility] and had to leave a requesting that they call pt back to so that pt could terminate her [place] Medicaid there and give her new address and county. Soft Shoe Dancer: Jacqueline Edwards, MECHANICAL MANUFACTURING TECHNICIAN, DOOR TO DOOR FUNDRAISING COLLECTOR Day 3 Note: 09/16/23 Pt transfer pending for another hospital. Referral was sent tot SNFS, [facility] was able to accept, [facility] was reviewing. Both pt and pt cousin Ursula aware of possible transfer out, but know SNF is still the back up plan, they can also follow back when pt Dcs from other setting and still requires a skilled stay. [facility] initiated a Medicaid application for pt. [place] Medicaid Application/pending number forward to [facility] if needed for transfer out. Pts cousin Ursula shared with CM that she heard that pt may havea history of substance abuse and this could be contributing to her current condition. SW unsure of this and encouraged her to speak with physician about this when she is next here visiting with pt. Soft Shoe Dancer: Jacqueline Edwards, MECHANICAL MANUFACTURING TECHNICIAN, DOOR TO DOOR FUNDRAISING COLLECTOR Day 4 Note: 09/19/23 Pt was transfered to [facility], assisted referrals updated. SW signing off. Soft Shoe Dancer: Jacqueline Edwards LSW, MSW - * Requested Intvs/Referrals * Knit Goods Washer Referrals: SNF/LTAC Placement Soft Shoe Dancer I Referrals: Financial Issues/Medicaid Applications - * HEALTHCARE DECISIONS * Living Will: Unknown Durable Power of Textile Designer for Health Care: Unknown [facility] DNR Comfort Care: Unknown [facility] DNR Comfort Care Arrest: Unknown - Home Health/IV Infusion/Wound Vac Home Health Referral Indicated: Yes Home Health List Provided: Yes Indication for Home Health: Wound Care, Other Patient's Response: Yes Home Health Agencies: [facility] Patient given options to view quality scores of facility?: No Entered by: MARY Rodriguez MSW on 09/19/231106 Report Signed by: LORNA Ovalle on 09/19/238 <<Signature on File>> <Electronically signed by LORNA Hill> Report Signed by: on [facility] Work Phone: 1(948) 688-296810-26-2023 Progress note Author Alec Clemons [facility] September 18, 2023 8:44pm Note Date/Time September 18, 2023 3 :46pm [facility] Medical Records Patient: GEOVANNY MEJÍA. : 1970 [place], [place] [address] Location: [address] [place] [address] Unit #: [id number] Progress Note Neurosurgery Lucy Lara PA-C Service [...] Lymph % (Auto) 11.7 L 14.8 L Nash % (Auto) 6.7 7.4 Eos % (Auto) [...] File>> <Electronically signed by Alec Clemons MD> [facility] Work Phone: 1(292) 226-621610-26-2023 Progress note Author Alec Clemons [facility] September 18, 2023 8:44pm Note Date/Time September 18, 2023 3 :46pm [facility] Medical Records Patient: GEOVANNY MEJÍA. : 1970 [place], [place] [address] Location: [facility] [phone] Unit #: [id number] Progress Note Neurosurgery Lucy Lara PA-C Service [...] Lymph % (Auto) 11.7 L 14.8 L Nash % (Auto) 6.7 7.4 Eos % (Auto) [...] Entered by: Lucy Lara PA-C on 09/18/23 2366 Report Signed by: Lucy Lara PA-C on 09/18/23 1322 <<Signature on File>> < 43 <<Signature on File>> <Electronically signed by Alec Clemons MD> [facility] Work Phone: 1(852) 683-475310-26-2023 Discharge summary Author Troy Garber [facility] September 18, 2023 7:44pm Note Date/Time September 18, 2023 7 :21pm [facility] [facility] Medical Records Patient: GEOVANNY MEJÍA. : 1970 [place], [place] [address] Location: [facility] [phone] Unit #: [id number] Discharge Summary Troy Garber MD Patient Information [...] [facility] upon converting her insurance to the [place] Medicaid. Currently she remains in-house awaiting a [...] home medications on file, initially transferred from [facility] for possible intra-abdominal abscess.? History and physical is limited due to no records available and patient was in pain at time of my clinical exam.? As per EMR I did see that she had a left retroperitoneal fluid collection with moderate inflammation measuring4.7 X2.6X 4.5 cm with possible abscess formation.? She was subsequently transferred to [facility] for general surgery consultation.? On [...] been declined, and subsequent call to the [facility] was also declined for transfer. However, patient's insurance had been switched from the [place] to the [place] Medicaid, [facility] was updated and patient was accepted onto their service. However patient remained here at [facility] until discharge and transfer to this [...] Lymph % (Auto) 11.7 L 14.8 L Nash % (Auto) 6.7 7.4 Eos % (Auto) [...] Discharge Plan Discharge Data Patient Disposition: *Discharge/Transfer SNF/[facility] Condition: Guarded Discharge Medication Reconciliation: No Action [...] Troy Garber MD> Report Signed by: on [facility] Work Phone: [phone] 169-186210-26-2023 Discharge summary Author Troy Garber [facility] September 18, 2023 7:44pm Note Date/Time September 18, 2023 7 :21pm [facility] Medical Records Patient: GEOVANNY MEJÍA. : 1970 [place] [address] Location: [address] [place] [address] Unit #: [id number] Discharge Summary Troy Garber MD Patient Information [...] [facility] upon converting her insurance to the [place] [facility]. Currently she remains in-house awaiting a [...] home medications on file, initially transferred from [facility] for possible intra-abdominal abscess.? History and physical is limited due to no records available and patient was in pain at time of my clinical exam.? As per EMR I did see that she had a left retroperitoneal fluid collection with moderate inflammation measuring4.7 X2.6X 4.5 cm with possible abscess formation.? She was subsequently transferred to [facility] for general surgery consultation.? On [...] been declined, and subsequent call to the [facility] was also declined for transfer. However, patient's insurance had been switched from the [place] to the [place] Medicaid, [facility] was updated and patient was accepted onto their service. However patient remained here at [facility] until discharge and transfer to this [...] Lymph % (Auto) 11.7 L 14.8 L Nash % (Auto) 6.7 7.4 Eos % (Auto) [...] Discharge Plan Discharge Data Patient Disposition: *Discharge/Transfer SNF/[facility] Condition: Guarded Discharge Medication Reconciliation: No Action [...] Troy Garber MD> Report Signed by: on [facility] Work Phone: [phone] [facility] Medical Records Patient: GEOVANNY MEJÍA. : 1970 [place], [place] [address] Location: [facility] [phone] [facility]: [id number] Summary Troy Garber MD Patient Information [...] home medications on file, initially transferred from [facility] for possible intra-abdominal abscess.??? History and physical is limited due to no records available and patient was in pain at time of my clinical exam.??? As per EMR I did see that she had a left retroperitoneal fluid collection with moderate inflammation measuring 4.7 X2.6X 4.5 cm with possible abscess formation.??? She was subsequently transferred to [facility] for general surgery consultation.??? On arrival as per RN she was complaining of some back pain, she does have a history of sciatica and takes Neurontin 600 mg at home however h (more content not included)...[facility]10-26-2023 Progress note Author Karime Lowery [facility] September 18, 2023 5:54pm Note Date/Time September 18, 2023 5 :54pm [facility] Case Management Patient: GEOVANNY MEJÍA. : 1970 [place], [place] [address] Location: [facility] [phone] Unit #: [id number] Case Management General Note Karime Lowery RN Service Date: 09/18/23 Case Management General Note - Note Note: I was updated that patient had received a bed at [facility]. Bed 888. Accepting physician Dr. Huff. I was asked to arrange air transport. 1730: CM contacted [employer]. Updated of approx arrival 1753P. Primary nursing, attending updated. Security and AOS updated. Paperwork faxed and placed on chart. Primary nurse reports she had updated patient and family. - Letter Delivered Was Position Statement Letter Delivered?: Yes Entered by: Karime Lowery on 09/18/23 174 Report Signed by: Karime Lowery RN on 10/1753 <<Signature on File>> <Electronically signed by Karime Lowery RN> Co-Signed by: on [facility] Work Phone: [phone]) 612-207610-26-2023 Progress note Author Karime Lowery [facility] September 18, 2023 5:54pm Note Date/Time September 18, 2023 5 :54pm [facility] Case Management Patient: GEOVANNY MEJÍA. : 1970 [place] [address] Location: [phone] Unit #: [id number] Case Management General Note Karime Lowery RN Service Date: 09/18/23 Case Management General Note - Note Note: I was updated that patient had received a bed at [facility]. Bed 888. Accepting physician Dr. Huff. I was asked to arrange air transport. 1730: [facility] [employer]. Updated of approx arrival [...] by Karime Lowery RN> Co-Signed by: on [facility] Work Phone: [phone]) 538-899510-26-2023 Progress note Author Valeriy Cantu [facility] September 18, 2023 3:25pm Note Date/Time September 18, 2023 3 :25pm [facility] Medical Records Patient: GEOVANNY MEJÍA. : 1970 [place] [address] Location: [phone] Unit #: [id number] Status Note/Update Valeriy Cantu Jr DO Service [...] Cantu Jr, DO> Report Signed by: on [facility] Work Phone: [phone]) 630-555510-26-2023 Progress note Author Troy Garber [facility] September 18, 2023 3:25pm Note Date/Time September 18, 2023 3 :25pm [facility] Medical Records Patient: GEOVANNY MEJÍA [address]. : 1970 [place] [address] Location: [address] [place] [address] Unit #: [id number] Status Note/Update Troy Garber MD Service Dt/Tm: [...] Troy Garber MD> Report Signed by: on [facility] Work Phone: [phone] Progress note Author Valeriy Cantu [facility] September 18, 2023 3:25pm Note Date/Time September 18, 2023 3 :25pm [facility] Medical Records Patient: GEOVANNY MEJÍA [address]. : 1970 [place] [address] Location: [phone] Unit #: [id number] Status Note/Update Valeriy Cantu Jr, DO Service [...] Cantu Jr, DO> Report Signed by: on [facility] Work Phone: [phone]) 186-160510-26-2023 Progress note Author Troy Garber [facility] September 18, 2023 3:25pm Note Date/Time September 18, 2023 3 :25pm [facility] Medical Records Patient: GEOVANNY MEJÍA [address]. : 1970 [place] [id number] Location: [phone] Unit #: [id number] Status Note/Update Troy Garber MD Service Dt/Tm: [...] Signed by: Troy Garber MD on 09/18/23 1525 <<Signature on File>> <Electronically signed by Troy Garber MD> Report Signed by: on [facility] Work Phone: [phone]) 934-535710-26-2023 Progress note Author Alec Clemons [facility] September 18, 2023 3:23pm Note Date/Time September 18, 2023 3 :12pm [facility] Medical Records Patient: GEOVANNY MEJÍA [address] : 1970 [place], [place] [address] Location: [address] [place] [address] Unit #: [id number] Status Note/Update Alec Clemons MD Service Dt/Tm: [...] Alec Clemons MD> Report Signed by: on [facility] Work Phone: [phone] Progress note Author Alec Clemons [facility] September 18, 2023 3:23pm Note Date/Time September 18, 2023 3 :12pm [facility] Medical Records Patient: GEOVANNY MEJÍA. : 1970 [place], [place] [address] Location: [facility] [phone] Unit #: [id number] Status Note/Update Alec Clemons MD Service Dt/Tm: [...] Alec Clemons MD> Report Signed by: on [facility] Work Phone: [phone] Progress note Author Kait Still [facility] September 18, 2023 3:19pm Note Date/Time September 18, 2023 1 1:42am [facility] Case Management Patient: GEOVANNY MEJÍAontaine Karthikeyanjeimy. : 1970 [place], [place] [address] Location: [phone] Unit #: [id number] Case Management Daily Note Kait Still Service Date: 09/18/23 Case Mgmt Daily Note - Plan of Care Toy Assembly Supervisor Agrees with Attending and Consult Plan: Yes [...] patient in the room. Patient is from [place]. She is up here to visit her sister. Patient reporting she is normally independent. Doesnot have a PCP. Patient would like to use [facility] OP Pharm for meds. Planning to have her cousin pick her up at d/c. Contact is her cousin Ursula. Denies having LW/dPOA. Toy Assembly Supervisor: Evelyne Pena, RN Day 2 Comment: 09/09 Met with patient in the room. Patient asking to get up and move around. [facility] S/p L ABD drain placement. Patient agreeable to [facility] for drain mgmt if needed. Reporting she will be going to [facility] at d/c to staywith her cousin Ursula. CM spoke with patients cousin Ursula via telephone who reports she is ok with [facility] coming to her home if patient would go there at d/c. Ursula reporting patient was homeless in [place] and recently move to [place] with faith [employer]. Toy Assembly Supervisor: Evelyne Pena, RN Day 3 Comment: 09/10 D/c needs pending medical course. Jr present. Dilaudid CAP MAKER. PT/OT. ID c/s. Therapy recs for IPR vs OP PT. Will follow to assist with d/c needs. Toy Assembly Supervisor: Evelyne Pena, RN Day 4 Comment: 09/11 Met with patient in the room who is planning to d/c to her [facility] in [place], [place]. Patient is agreeable to [facility]. CM spoke with Ursula who is agreeable for patient to come there at d/c. Referral sent to [facility].Await approval. CAP MAKER. ABD drain. NPO. ID c/s. PT/OT. Toy Assembly Supervisor: Evelyne Pena, RN Day 5 Comment: 09/12 Met with patient in the room to discuss d/c plan. Patient unable to move b/l LE. No sensation to RLE. Does have sesation to LLE. PT/OT recommending SNF, patient agreeable. She would like to go somewhere near her cousin Ursula in [place], [place]. CM [facility] [place]. SW c/s for SNF placement and [facility] assist with [place]. Patient will need a precert. CAP MAKER continues. If patient would improve with mobility, she has been accepted to [facility]. CM spoke with Ursula via telephone to update. Toy Assembly Supervisor: Evelyne Pena, RN Day 6 Comment: 09/15- POD 2. CM spoke with patient at bedside. VSS. WBC 19.9. PT/OT rec SNF. Pt verbalized agreeable for SNF and would like [facility]. SW c/s & reported that [facility] is not in network with pt insurance. spoke w/ pt & Lamin is now reviewing patient. Pt is awaiting the start of [place] [facility] application with [employer] as current dual insurance is out of state. Pt willalso require a precert when medically ready. CM following. Toy Assembly Supervisor: Dina Abebe Day 8 Comment: 09/15- POD 2. CM spoke with patient at bedside. VSS. WBC 19.9. PT/OT rec SNF. Pt verbalized agreeable for SNF and would like [facility]. SW c/s. Pt will require precert when [...] Attending noted plans to attempt transfer to [facility] & if denied, to attempt transfer to [facility], per pt preferance. Transfer packet completed. CM following. @12:21- Nurse reported to CM that Dr Holt hasdeclined to take pt, per [facility], & that a message was relayed to the attending. @14:30- [employer] has assisted pt with completion of [place] GWEN vilma. CM faxing documentation to [facility] & calling now to verify if they are able to accept pt with that. If unable, CM to fax & verify w/ [facility]. If neither hospital is able to accept, attending plans to reach out to [facility]. @15:00- CM spoke with Shelby at [...] out of network insurance. CMupdated the attending. Toy Assembly Supervisor: Dina Abebe Comment: 09/17- CM received perfect serve notification from pt's nurse after CM left for the day yesterday at 16:[address] Clemons, the pt has been accepted to [facility] and that the transfer center will be contacting [facility] when a bed is available. CM spoke w/ pt at bedside this AM & provided updates. Pt requestedCM to contact her cousin, Ursula Echevarria ([phone]), with any updates. CM called Ursula this AM; no answer & no vm set up.t. @:27- Ursula called CM back & updates were provided. Toy Assembly Supervisor: Dina Abebe Comment: 09/18 - Spoke with pt at bedside. Pt being transferred to [facility]. Spoke with AIRAM Crabtree from [facility] Transfer center at 0830 and 1330 today, and she states that there is no bed assigned on this pt at this time. RN and Provider updated. Toy Assembly Supervisor: Kait Still - Home Health/IV Infusion/Wound Vac Home Health Referral Indicated: Yes Home Health List Provided: Yes Indication for Home Health: Wound Care, Other Patient's Response: Yes Home Health Agencies: [facility] Patient given the option to view quality scores of facility?: Yes - Half-Way Facility SNF List Provided: Yes Half-Way Facilities: [facility] Social Work Consult initiated for SNF: Yes [...] signed by Kait Still> Co-Signed by: on [facility] Work Phone: [phone]) 400-309110-26-2023 Progress note Author Kait Still [facility] September 18, 2023 3:19pm Note Date/Time September 18, 2023 1 1:42am [facility] Case Management Patient: GEOVANNY MEJÍA. : 1970 [place], [place] [address] Location: [address] [place] [address] Unit #: [id number] Case Management Daily Note Kait Still Service Date: 09/18/23 Case Mgmt Daily Note - Plan of Care Toy Assembly Supervisor Agrees with Attending and Consult Plan: Yes [...] patient in the room. Patient is from [place]. She is up here to visit her sister. Patient reporting she is normally independent. Doesnot have a PCP. Patient would like to use [facility] OP Pharm for meds. Planning to have her cousin pick her up at d/c. Contact is her cousin Ursula. Denies having LW/dPOA. Toy Assembly Supervisor: Evelyne Pena, RN Day 2 Comment: 09/09 Met with patient in the room. Patient asking to get up and move around. PT/OT to eval. S/p L ABD drain placement. Patient agreeable to [facility] for drain mgmt if needed. Reporting she will be going to [facility] at d/c to staywith her cousin Ursula. CM spoke with patients cousin Ursula via telephone who reports she is ok with [facility] coming to her home if patient would go there at d/c. Ursula reporting patient was homeless in [place] and recently move to [place] with faith [employer]. Toy Assembly Supervisor: Evelyne Pean, RN Day 3 Comment: 09/10 D/c needs pending medical course. Jr mullen. Dilaudid CAP MAKER. PT/OT. ID c/s. Therapy recs for IPR vs OP PT. Will follow to assist with d/c needs. Toy Assembly Supervisor: Evelyne Pena, RN Day 4 Comment: 09/11 Met with patient in the room who is planning to d/c to her [facility] in [place], [place]. Patient is agreeable to [facility]. CM spoke with Ursula who is agreeable for patient to come there at d/c. Referral sent to [facility].Await approval. CAP MAKER. ABD drain. NPO. ID c/s. PT/OT. Toy Assembly Supervisor: Evelyne Pena, RN Day 5 Comment: 09/12 Met with patient in the room to discuss d/c plan. Patient unable to move b/l LE. No sensation to RLE. Does have sesation to LLE. PT/OT recommending SNF, patient agreeable. She would like to go somewhere near her cousin Ursula in [place], [place]. CM assisted patient with changing her address withher [facility] insurance to an [place] address. SW c/s for SNF placement and [facility] assist with [place]. Patient will need a precert. CAP MAKER continues. If patient would improve with mobility, she has been accepted to [facility]. CM spoke with Ursula via telephone to update. Toy Assembly Supervisor: Evelyne Pena, RN Day 6 Comment: 09/15- POD 2. CM spoke with patient at bedside. VSS. WBC 19.9. PT/OT rec SNF. Pt verbalized agreeable for SNF and would like [facility]. SW c/s & reported that [facility] is not in network with pt insurance. MANOLO spoke w/ pt & Lamin is now reviewing patient. Pt is awaiting the start of [facility] application with [employer] as current dual insurance is out of state. Pt willalso require a precert when medically ready. CM following. Toy Assembly Supervisor: Dina Abebe Day 8 Comment: 09/15- POD 2. CM spoke with patient at bedside. VSS. WBC 19.9. PT/OT rec SNF. Pt verbalized agreeable for SNF and would like [facility]. SW c/s. Pt will require precert when [...] Attending noted plans to attempt transfer to [facility] & if denied, to attempt [facility], per pt preferance. Transfer packet completed. CM following. @12:21- Nurse reported to CM that Dr Holt hasdeclined to take pt, per [facility], & that a message was relayed to the attending. @14:30- [employer] has assisted pt with completion of [place] [facility] vilma. CM faxing documentation to [facility] & calling now to verify if they are able to accept pt with that. If unable, CM to fax & verify w/ [facility]. If neither hospital is able to accept, attending plans to reach out to [facility]. @15:00- CM spoke with Shelby at [...] out of network insurance. CMupdated the attending. Toy Assembly Supervisor: Dina Abebe Day 10 Comment: 09/17- CM received perfect serve notification from pt's nurse after CM left for the day yesterday at 16:[address] Clemons, the pt has been accepted to [facility] and that the transfer center will be contacting [facility] when a bed is available. CM spoke w/ pt at bedside this AM & provided updates. Pt requestedCM to contact her cousin, Ursula Echevarria ([phone]), with any updates. CM called Ursula this AM; no answer & no vm set up.t. @10:27- Ursula called CM back & updates were provided. Toy Assembly Supervisor: Dina Abebe Comment: 09/18 - Spoke with pt at bedside. Pt being transferred to [facility]. Spoke with Bro RN from [facility] Transfer center at 0830 and 1330 today, and she states that there is no bed assigned on this pt at this time. RN and Provider updated. Toy Assembly Supervisor: Kait Still - Home Health/IV Infusion/Wound Vac Home Health Referral Indicated: Yes Home Health List Provided: Yes Indication for Home Health: Wound Care, Other Patient's Response: Yes Home Health Agencies: [facility] Patient given the option to view quality scores of facility?: Yes - Half-Way Facility SNF List Provided: Yes Half-Way Facilities: [facility] Social Work Consult initiated for SNF: Yes [...] signed by Kait Still> Co-Signed by: on [facility] Work Phone: 1([phone]) 602-673410-26-2023 Progress note Author Troy Garber [facility] September 18, 2023 2:24pm Note Date/Time September 18, 2023 8 :57am [facility] Medical Records Patient: GEOVANNY MEJÍA. : 1970 [place], [place] [address] Location: [phone] Unit #: [id number] Progress Note - Hospitalist Troy Garber MD [...] [facility] upon [facility] her insurance to the [place] [facility]. Currently she remains in-house awaiting a [...] had been offered other options including the [facility] and the [facility]. [facility] had declined to accept the patient in [...] the EMR. 09/17/23 12:16 CT Abd/Pelvis W/Contrast [id number] Stat 09/17/23 15:55 CT Peritoneal Abscess Stat [...] Troy Garber MD> Report Signed by: on [facility] Work Phone: [phone]) 262-281310-26-2023 Progress note Author Troy Garber [facility] September 18, 2023 2:24pm Note Date/Time September 18, 2023 8 :57am [facility] Medical Records Patient: GEOVANNY MEJÍA. : 1970 [place], [place] [address] Location: [phone] Unit #: [id number] Progress Note - Hospitalist Troy Garber MD [...] [facility] upon converting her insurance to the [place] Medicaid. Currently she remains in-house awaiting a [...] had been offered other options including the [facility] and the [facility]. [facility] had declined to accept the patient in [...] the EMR. 09/17/23 12:16 CT Abd/Pelvis W/Contrast [id number] Stat 09/17/23 15:55 CT Peritoneal Abscess Stat [...] Entered by: Troy Garber MD on 09/18/23 9572 Report Signed by: Troy Garber MD on 09/18/23 3227 <<Signature on File>> <Electronically signed by Troy Garber MD> Report Signed by: on [facility] Work Phone: 1(316) 106-984210-25-2023 Progress note Author Alec Clemons [facility] September 17, 2023 7:14pm Note Date/Time September 16, 2023 1 :34pm [facility] Medical Records Patient: GEOVANNY MEJÍA. : 1970 [place], [place] [address] Location: [address] [place] [address] Unit #: [id number] Progress Note Neurosurgery Jasbir Ann PA-C Service [...] I spoke with the Ortho spine surgeon national sales manager and the transfer center at [facility]. I explained that the patient still [...] 85.9 H Lymph % (Auto) 8.8 L Nash % (Auto) 4.0 Eos % (Auto) 0.3 Baso % (Auto) 1.0 Nucleat RBC Rel Count 0.0 Absolute Neuts (auto) 30555 H Absolute Lymphs (auto) 1700 Absolute Monos [...] File>> <Electronically signed by Alec Clemons MD> [facility] Work Phone: 1(857) 399-653610-25-2023 Progress note Author Alec Clemons [facility] September 17, 2023 7:14pm Note Date/Time September 16, 2023 1 :34pm [facility] Medical Records Patient: GEOVANNY MEJÍA. : 1970 [place], [place] [address] Location: [phone] Unit #: [id number] Progress Note Neurosurgery Jasbir Ann PA-C Service Dt/Tm: 09/16/231332 <Jasbir Ann PA-C - Last Filed: 09/16/23 13:35> Assessment/Plan (1) Spinal epidural abscess: Status: Acute Plan: Agreeable with current plan. No new recommendations from the neurosurgical service at this time <Aelc Clemons MD - Last Filed: 09/17/23 19:14> [...] I spoke with the Ortho spine surgeon national sales manager and the transfer center at [facility]. I explained that the patient still [...] 85.9 H Lymph % (Auto) 8.8 L Nash % (Auto) 4.0 Eos % (Auto) 0.3 Baso % (Auto) 1.0 Nucleat RBC Rel Count 0.0 Absolute Neuts (auto) 66852 H Absolute Lymphs (auto) 1700 Absolute Monos [...] on 09/16/23 1335 <<Signature on File>> < 1914 <<Signature on File>> <Electronically signed by Alec Clemons MD> [facility] Work Phone: 1(535) 549-792410-25-2023 Progress note Author Troy Garber [facility] September 17, 2023 5:33pm Note Date/Time September 17, 2023 5 :14pm [facility] Medical Records Patient: GEOVANNY MEJÍA. : 1970 [place], [place] [address] Location: [address] [place] [address] Unit #: [id number] Progress Note - Hospitalist Troy Garber MD Service Dt/Tm: 09/17/23 9814 Assessment/Plan Assessment/Plan (1) Intra-abdominal abscess: Status: Acute [...] [facility] upon converting her insurance to the [place] [employer]. Currently she remains in-house awaiting a [...] the EMR. 09/17/23 12:16 CT Abd/Pelvis W/Contrast 37206 Stat Microbiology: Microbiology 09/13/23 05:00 Back Gram [...] Signed by: Troy Garber MD on 09/17/23 0009 <<Signature on File>> <Electronically signed by Troy Garber MD> Report Signed by: on [facility] Work Phone: 1(284) 495-988910-25-2023 Progress note Author Troy Garber [facility] September 17, 2023 5:33pm Note Date/Time September 17, 2023 5 :14pm [facility] Medical Records Patient: GEOVANNY MEJÍA. : 1970 [place], [place] [address] Location: [facility] [phone] Unit #: [id number] Progress Note - Hospitalist Troy Garber MD [...] [facility] upon converting her insurance to the [place] [employer]. Currently she remains in-house awaiting a [...] the EMR. 09/17/23 12:16 CT Abd/Pelvis W/Contrast 32383 Stat Microbiology: Microbiology 09/13/23 05:00 Back Gram [...] Signed by: Troy Garber MD on 09/17/23 1733 <<Signature on File>> <Electronically signed by Troy Garber MD> Report Signed by: on [facility] Work Phone: 1([phone]) 964-875910-25-2023 Progress note Author Freddy Guevara [facility] September 17, 2023 4:51pm Note Date/Time September 17, 2023 4 :51pm [facility] Medical Records Patient: GEOVANNY MEJÍA. : 1970 [place] [address] Location: [phone] Unit #: [id number] Interventional Radiology Note Freddy Guevara MD Service [...] Freddy Guevara MD> Report Signed by: on [facility] Work Phone: 1(468) 261-512110-25-2023 Progress note Author Freddy Guevara [facility] September 17, 2023 4:51pm Note Date/Time September 17, 2023 4 :51pm [facility] Medical Records Patient: GEOVANNY MEJÍA. : 1970 [place] [address] Location: [phone] Unit #: [id number] Interventional Radiology Note Freddy Guevara MD Service [...] Freddy Guevara MD> Report Signed by: on [facility] Work Phone: [phone] [facility] Medical Records Patient: GOEVANNY MEJÍA Ave[address] : 1970 [place] [address] Location: [phone] Unit #: [id number] Pre Procedure Note Freddy Guevara MD [...] 09/08/23 @ 14:51 by Bryant Epperson APRN, CHAIN LINK FENCE INSTALLER) Denies family history of No pertinent family [...] on 09/17/231647 < > Report Signed by: [facility]10-25-2023 Progress note Author Dina Abebe [facility] September 17, 2023 4:07pm Note Date/Time September 17, 2023 8 :14am [facility] Case Management Patient: GEOVANNY MEJÍA [address] : 1970 [place], [place] [address] Location: [address] [place] [address] Unit #: [id number] Case Management Daily Note Dina Abebe Service Date: 09/17/23 Case Mgmt Daily Note - Plan of Care Toy Assembly Supervisor Agrees with Attending and Consult Plan: Yes - COVID-19 Was Position Statement Letter Delivered?: Yes - Care Coordination Communication Care Coordination Communication: Spoke with patient's family via phone - Hospital Stay Days Day 1 Comment: 09/08 Met with patient in the room. Patient is from [place]. She is up here to visit her sister. Patient reporting she is normally independent. Doesnot have a PCP. Patient would like to use [facility] OP Pharm for meds. Planning to have her cousin pick her up at d/c. Contact is her cousin Ursula. Denies having LW/dPOA. Toy Assembly Supervisor: Evelyne Pena, RN Day 2 Comment: 09/09 Met with patient in the room. Patient asking to get up and move around. [facility] S/p L ABD drain placement. Patient agreeable to [facility] for drain mgmt if needed. Reporting she will be going to [facility] at d/c to staywith her cousin Ursula. spoke with patients cousin Ursula via telephone who reports she is ok with [facility] coming to her home if patient would go there at d/c. Ursula reporting patient was homeless in [place] and recently move to [place] with faith [employer]. Toy Assembly Supervisor: Evelyne Pena, RN Day 3 Comment: 09/10 D/c needs pending medical course. Jr mullen. Dilaudid CAP MAKER. PT/OT. ID c/s. Therapy recs for IPR vs OP PT. Will follow to assist with d/c needs. Toy Assembly Supervisor: Evelyne Pena, RN Day 4 Comment: 09/11 Met with patient in the room who is planning to [facility] [place]. Patient is agreeable to [facility]. CM spoke with Ursula who is agreeable for patient to come there at d/c. Referral sent to [facility].Await approval. CAP MAKER. ABD drain. NPO. ID c/s. PT/OT. Toy Assembly Supervisor: Evelyne Pena, RN Day 5 Comment: 09/12 Met with patient in the room to discuss d/c plan. Patient unable to move b/l LE. No sensation to RLE. Does have sesation to LLE. PT/OT recommending SNF, patient agreeable. She would like to go somewhere near her cousin Ursula in [place], [place]. CM [place] [facility] [place]. SW c/s for SNF placement and [facility] assist with [place]. Patient will need a precert. CAP MAKER continues. If patient would improve with mobility, she has been accepted to [facility]. CM spoke with Ursula via telephone to update. Toy Assembly Supervisor: Evelyne Pena, RN Day 6 Comment: 09/15- POD 2. CM spoke with patient at bedside. VSS. WBC 19.9. PT/OT rec SNF. Pt verbalized agreeable for SNF and would like [facility]. SW c/s & reported that [facility] is not in network with pt insurance. MANOLO spoke w/ pt & Lamin is now reviewing patient. Pt is awaiting the start of [place] GW[facility] application with [facility] [employer] as current dual insurance is out of state. Pt willalso require a precert when medically ready. CM following. Toy Assembly Supervisor: Dina Abebe Day 8 Comment: 09/15- POD 2. CM spoke with patient at bedside. VSS. WBC 19.9. PT/OT rec SNF. Pt verbalized agreeable for SNF and would like [facility]. SW c/s. Pt will require precert when [...] Attending noted plans to attempt transfer to [facility] &if denied, to attempt transfer to [facility], per pt preferance. Transfer packet completed. CM following. @12:21- Nurse reported to CM that Dr Holt has declined to take pt, per [facility], & that a message was relayed to the attending. @14:30- [facility] has assisted pt with completion of [place] GWEN vilma. CM faxing documentation to [facility] & calling now to verify if they are able to accept pt with that. If unable, CM to fax & verify w/ [facility]. If neither hospital is able to accept, attending plans to reach out to [facility]. @15:00- CM spoke with Shelby at [...] out of network insurance. CMupdated the attending. Toy Assembly Supervisor: Dina Abebe Day 10 Comment: 09/17- CM received perfect serve notification from pt's nurse after CM left for the day yesterday at 16:[address] Clemons, the pt has been accepted to [facility] and that the transfer center will be contacting [facility] when a bed is available. CM spoke w/ pt at bedside this AM & provided updates. Pt requestedCM to contact her cousin, Ursula Echevarria ([phone]), with any updates. CM called Ursula this AM; no answer & no vm set up.t. @10:27- Ursula called CM back & updates were provided. Toy Assembly Supervisor: Dina Abebe - Home Health/IV Infusion/Wound Vac Home Health Referral Indicated: Yes Home Health List Provided: Yes Indication for Home Health: Wound Care, Other Patient's Response: Yes Home Health Agencies: [facility] Patient given the option to view quality scores of facility?: Yes - Half-Way Facility SNF List Provided: Yes Half-Way Facilities: [facility] Social Work Consult initiated for SNF: Yes [...] signed by Dina Abebe> Co-Signed by: on [facility] Work Phone: [phone]) 915-233210-25-2023 Progress note Author Dina Abebe [facility] September 17, 2023 4:07pm Note Date/Time September 17, 2023 8 :14am [facility] Case Management Patient: GEOVANNY MEJÍA. : 1970 [place], [place] [address] Location: [phone] Unit #: [id number] Case Management Daily Note Dina Abebe Service Date: 09/17/23 Case Mgmt Daily Note - Plan of Care Toy Assembly Supervisor Agrees with Attending and Consult Plan: Yes - COVID-19 Was Position Statement Letter Delivered?: Yes - Care Coordination Communication Care Coordination Communication: Spoke with patient's family via phone - Hospital Stay Days Day 1 Comment: 09/08 Met with patient in the room. Patient is from [place]. She is up here to visit her sister. Patient reporting she is normally independent. Doesnot have a PCP. Patient would like to use [facility] OP Pharm for meds. Planning to have her cousin pick her up at d/c. Contact is her cousin Ursula. Denies having LW/dPOA. Toy Assembly Supervisor: Evelyne Pena, RN Day 2 Comment: 09/09 Met with patient in the room. Patient asking to get up and move around. PT/OT to eval. S/p L ABD drain placement. Patient agreeable to [facility] for drain mgmt if needed. Reporting she will be going to [place] area at d/c to staywith her cousin Ursula. CM spoke with patients cousin Ursula via telephone who reports she is ok with [facility] coming to her home if patient would go there at d/c. Ursula reporting patient was homeless in [place] and recently move to [place] with faith [employer]. Toy Assembly Supervisor: Evelyne Pena, RN Day 3 Comment: 09/10 D/c needs pending medical course. Jr mullen. Dilaudid CAP MAKER. PT/OT. ID c/s. Therapy recs for IPR vs OP PT. Will follow to assist with d/c needs. Toy Assembly Supervisor: Evelyne Pena, RN Day 4 Comment: 09/11 Met with patient in the room who is planning to d/c to her [facility] in [place], [place]. Patient is agreeable to [facility]. CM spoke with Ursula who is agreeable for patient to come there at d/c. Referral sent to [facility].Await approval. CAP MAKER. ABD drain. NPO. ID c/s. PT/OT. Toy Assembly Supervisor: Evelyne Pena, RN Day 5 Comment: 09/12 Met with patient in the room to discuss d/c plan. Patient unable to move b/l LE. No sensation to RLE. Does have sesation to LLE. PT/OT recommending SNF, patient agreeable. She would like to go somewhere near her cousin Ursula in [place]. CM assisted patient with [place] [facility] [place] address. c/s for SNF placement and [facility] assist with [place]. Patient will need a precert. CAP MAKER continues. If patient would improve with mobility, she has been accepted to [facility]. CM spoke with Ursula via telephone to update. Toy Assembly Supervisor: Evelyne Pena, RN Day 6 Comment: 09/15- POD 2. CM spoke with patient at bedside. VSS. WBC 19.9. PT/OT rec SNF. Pt verbalized agreeable for SNF and would like [facility]. SW c/s & reported that [facility] is not in network with pt insurance. MANOLO spoke w/ pt & Lamin is now reviewing patient. Pt is awaiting the start of [place] GWEN application with [employer] as current dual insurance is out of state. Pt willalso require a precert when medically ready. CM following. Toy Assembly Supervisor: Dina Abebe Day 8 Comment: 09/15- POD 2. CM spoke with patient at bedside. VSS. WBC 19.9. PT/OT rec SNF. Pt verbalized agreeable for SNF and would like [facility]. SW c/s. Pt will require precert when [...] Attending noted plans to attempt transfer to [facility] &if denied, to [facility], [facility] prefer[facility]. Transfer packet completed. CM following. @12:21- Nurse reported to CM that Dr Holt has declined to take pt, per [facility], & that a message was relayed to the attending. @14:30- [facility] has assisted pt with completion of [place] GW[facility] vilma. CM faxing documentation to [facility] & calling now to verify if they are able to accept pt with that. If unable, CM to fax & verify w/ [facility]. If neither hospital is able to accept, attending plans to reach out to [facility]. @15:00- CM spoke with Shelby at [...] out of network insurance. CMupdated the attending. Toy Assembly Supervisor: Dina Abebe Day 10 Comment: 09/17- CM received perfect serve notification from pt's nurse after CM left for the day yesterday at 16:[address] Clemons, the pt has been accepted to [facility] and that the transfer center will be contacting [facility] when a bed is available. CM spoke w/ pt at bedside this AM & provided updates. Pt requestedCM to contact her cousin, Ursula Echevarria ([phone]), with any updates. CM called Ursula this AM; no answer & no vm set up.t. @10:27- Ursula called LENY back & updates were provided. Toy Assembly Supervisor: Dina Abebe - Home Health/IV Infusion/Wound Vac Home Health Referral Indicated: Yes Home Health List Provided: Yes Indication for Home Health: Wound Care, Other Patient's Response: Yes Home Health Agencies: [facility] Patient given the option to view quality scores of facility?: Yes - Half-Way Facility SNF List Provided: Yes Half-Way Facilities: [facility] Social Work Consult initiated for SNF: Yes [...] signed by Dina Abebe> Co-Signed by: on [facility] Work Phone: [phone]) 236-405210-25-2023 [facility] 09-[facility]-2023 [facility]-2023 Progress note Author Troy Garber [facility] September 17, 2023 1:37pm Note Date/Time September 17, 2023 8 :55am [facility] Medical Records Patient: GEOVANNY MEJÍA. : 1970 [place], [place] [address] Location: [phone] Unit #: [id number] Progress Note - Hospitalist Troy Garber MD [...] with the direction to call first the [facility] for the transfer, and if that does [...] Diet Texture: Regular Fluid Restrictions?: No Consult Senior Water/Wastewater Engineer for Oral Supplements/Nourishments?: No Oral Supplement 1: [...] Troy Garber MD> Report Signed by: on [facility] Work Phone: [phone]) 332-274810-25-2023 Progress note Author Troy Garber [facility] September 17, 2023 1:37pm Note Date/Time September 17, 2023 8 :55am [facility] Medical Records Patient: GEOVANNY MEJÍA1 [address] : 1970 [place] [address] Location: [facility] [phone] Unit #: [id number] Progress Note - Hospitalist Troy Garber MD [...] with the direction to call first the [facility] for the transfer, and if that does [...] Diet Texture: Regular Fluid Restrictions?: No Consult Senior Water/Wastewater Engineer for Oral Supplements/Nourishments?: No Oral Supplement 1: [...] Troy Garber MD> Report Signed by: on [facility] Work Phone: 1(607) 603-480710-24-2023 Progress note Author Troy Garber [facility] September 16, 2023 4:53pm Note Date/Time September 16, 2023 4 :53pm [facility] Medical Records Patient: GEOVANNY MEJÍA [address] : 1970 [place] [id number] Location: [phone] Unit #: [id number] Status Note/Update Troy Garber MD Service Dt/Tm: 09/16/231650 Note: GEOVANNY MEJÍA is a 53 yr old F who was admitted on 09/08/23 for INTRA ABDOMINAL ABCESS. Patient's [place] Medicaid has been approved and her insurance [...] Troy Garber MD> Report Signed by: on [facility] Work Phone: 1([phone]) 706-440610-24-2023 Progress note Author Troy Garber [facility] September 16, 2023 4:53pm Note Date/Time September 16, 2023 4 :53pm [facility] Medical Records Patient: GEOVANNY MEJÍA1 [address]. : 1970 [place], [place] [address] Location: [phone] Unit #: [id number] Status Note/Update Troy Garber MD Service Dt/Tm: 09/16/231650 Note: GEOVANNY MEJÍA is a 53 yr old F who was admitted on 09/08/23 for INTRA ABDOMINAL ABCESS. Patient's [place] Medicaid has been approved and her insurance [...] Troy Garber MD> Report Signed by: on [facility] Work Phone: [phone]) 184-112310-24-2023 Progress note Author Dina Abebe [facility] September 16, 2023 4:16pm Note Date/Time September 16, 2023 8 :26am [facility] Case Management Patient: GEOVANNY MEJÍA [address] : 1970 [place], [place] [address] Location: [phone] Unit #: [id number] Case Management Daily Note Dina Abebe Service Date: 09/16/23 Case Mgmt Daily Note - Plan of Care Toy Assembly Supervisor Agrees with Attending and Consult Plan: Yes - COVID-19 Was Position Statement Letter Delivered?: Yes - Care Coordination Communication Care Coordination Communication: Spoke with patient's family via phone - Hospital Stay Days Day 1 Comment: 09/08 Met with patient in the room. Patient is from [place]. She is up here to visit her sister. Patient reporting she is normally independent. Doesnot have a PCP. Patient would like to use [facility] OP Pharm for meds. Planning to have her cousin pick her up at d/c. Contact is her cousin Ursula. Denies having LW/dPOA. Toy Assembly Supervisor: Evelyne Pena RN Day 2 Comment: 09/09 Met with patient in the room. Patient asking to get up and move around. PT/OT to eval. S/p L ABD drain placement. Patient agreeable to [facility] for drain mgmt if needed. Reporting she will be going to [facility] at d/c to staywith her cousin Ursula. CM spoke with patients cousin Ursula via telephone who reports she is ok with [facility] coming to her home if patient would go there at d/c. Ursula reporting patient was homeless in [place] and recently move to [place] with faith [employer]. Toy Assembly Supervisor: Evelyne Pena, RN Day 3 Comment: 09/10 D/c needs pending medical course. Jr present. Dilaudid CAP MAKER. PT/OT. ID c/s. Therapy recs for IPR vs OP PT. Will follow to assist with d/c needs. Toy Assembly Supervisor: Evelyne Pena, RN Day 4 Comment: 09/11 Met with patient in the room who is planning to d/c to her [facility] in [place], [place]. Patient is agreeable to [facility]. CM spoke with Ursula who is agreeable for patient to come there at d/c. Referral sent to [facility].Await approval. CAP MAKER. ABD drain. NPO. ID c/s. PT/OT. Toy Assembly Supervisor: Evelyne Pena, RN Day 5 Comment: 09/12 Met with patient in the room to discuss d/c plan. Patient unable to move b/l LE. No sensation to RLE. Does have sesation to LLE. PT/OT recommending SNF, patient agreeable. She would like to go somewhere near her cousin Ursula in [place], [place]. CM assisted [place] [facility] [place] [facility] [place]. SW c/s for SNF placement and [facility] assist with [place]. Patient will need a precert. CAP MAKER continues. If patient would improve with mobility, she has been accepted to [facility]. CM spoke with Ursula via telephone to update. Toy Assembly Supervisor: Evelyne Pena, RN Day 6 Comment: 09/15- POD 2. CM spoke with patient at bedside. VSS. WBC 19.9. PT/OT rec SNF. Pt verbalized agreeable for SNF and would like [facility]. SW c/s & reported that [facility] is not in network with pt insurance. MANOLO spoke w/ pt & Lamin is now reviewing patient. Pt is awaiting the start of [facility] application with [employer] as current dual insurance is out of state. Pt willalso require a precert when medically ready. CM following. Toy Assembly Supervisor: Dina Abebe Day 8 Comment: 09/15- POD 2. CM spoke with patient at bedside. VSS. WBC 19.9. PT/OT rec SNF. Pt verbalized agreeable for SNF and would like [facility]. SW c/s. Pt will require precert when [...] Attending noted plans to attempt transfer to [facility] &if denied, to [facility], [facility] pt prefer[facility]. Transfer packet completed. CM following. @12:21- Nurse reported to CM that Dr Holt has declined to take pt, per [facility], & that a message was relayed to the attending. @14:30- [facility] has assisted pt with completion of [place] GWEN vilma. CM faxing documentation to [facility] & calling now to verify if they are able to accept pt with that. If unable, CM to fax & verify w/ [facility]. If neither hospital is able to accept, attending plans to reach out to [facility]. @15:00- CM spoke with Shelby at [...] out of network insurance. CMupdated the attending. Toy Assembly Supervisor: Dina Abebe - Home Health/IV Infusion/Wound Vac Home Health Referral Indicated: Yes Home Health List Provided: Yes Indication for Home Health: Wound Care, Other Patient's Response: Yes Home Health Agencies: [facility] Patient given the option to view [...] signed by Dina Abebe> Co-Signed by: on [facility] Work Phone: 1(385) 423-940210-24-2023 Progress note Author Dina Abebe [facility] September 16, 2023 4:16pm Note Date/Time September 16, 2023 8 :26am [facility] Case Management Patient: GEOVANNY MEJÍA. : 1970 [place], [place] [address] Location: [phone] Unit #: [id number] Case Management Daily Note Dina Abebe Service Date: 09/16/23 Case Mgmt Daily Note - Plan of Care Toy Assembly Supervisor Agrees with Attending and Consult Plan: Yes - COVID-19 Was Position Statement Letter Delivered?: Yes - Care Coordination Communication Care Coordination Communication: Spoke with patient's family via phone - Hospital Stay Days Day 1 Comment: 09/08 Met with patient in the room. Patient is from [place]. She is up here to visit her sister. Patient reporting she is normally independent. Doesnot have a PCP. Patient would like to use [facility] OP Pharm for meds. Planning to have her cousin pick her up at d/c. Contact is her cousin Ursula. Denies having LW/dPOA. Toy Assembly Supervisor: Evelyne Pena, RN Day 2 Comment: 09/09 Met with patient in the room. Patient asking to get up and move around. PT/OT to eval. S/p L ABD drain placement. Patient agreeable to [facility] for drain mgmt if needed. Reporting she will be going to [facility] at d/c to staywith her cousin Ursula. CM spoke with patients cousin Ursula via telephone who reports she is ok with [facility] coming to her home if patient would go there at d/c. Ursula reporting patient was homeless in [place] and recently move to [place] with faith Amaya. Toy Assembly Supervisor: Evelyne Pena, RN Day 3 Comment: 09/10 D/c needs pending medical course. Jr present. Dilaudid CAP MAKER. PT/OT. ID c/s. Therapy recs for IPR vs OP PT. Will follow to assist with d/c needs. Toy Assembly Supervisor: Evelyne Pena, RN Day 4 Comment: 09/11 Met with patient in the room who is planning to d/c to her [facility] in [place], [place]. Patient is agreeable to [facility]. CM spoke with Ursula who is agreeable for patient to come there at d/c. Referral sent to [facility].Await approval. CAP MAKER. ABD drain. NPO. ID c/s. PT/OT. Toy Assembly Supervisor: Evelyne Pena, RN Day 5 Comment: 09/12 Met with patient in the room to discuss d/c plan. Patient unable to move b/l LE. No sensation to RLE. Does have sesation to LLE. PT/OT recommending SNF, patient agreeable. She would like to go somewhere near her cousin Ursula in [place], [place]. CM assisted patient with changing her address withher [facility] insurance to an [place] address. SW c/s for SNF placement and [place] assist with [place]. Patient will need a precert. CAP MAKER continues. If patient would improve with mobility, she has been accepted to [facility]. CM spoke with Ursula via telephone to update. Toy Assembly Supervisor: Evelyne Pena, RN Day 6 Comment: 09/15- POD 2. CM spoke with patient at bedside. VSS. WBC 19.9. PT/OT rec SNF. Pt verbalized agreeable for SNF and would like [facility]. SW c/s & reported that [facility] is not in network with pt insurance. MANOLO spoke w/ pt & Lamin is now reviewing patient. Pt is awaiting the start of [facility] application with [facility] [employer] as current dual insurance is out of state. Pt willalso require a precert when medically ready. CM following. Toy Assembly Supervisor: Dina Abebe Day 8 Comment: 09/15- POD 2. CM spoke with patient at bedside. VSS. WBC 19.9. PT/OT rec SNF. Pt verbalized agreeable for SNF and would like [facility]. SW c/s. Pt will require precert when [...] Attending noted plans to attempt transfer to [facility] &if denied, to attempt [facility], per pt preferance. Transfer packet completed. CM following. @12:21- Nurse reported to CM that Dr Holt has declined to take pt, per [facility], & that a message was relayed to the attending. @14:30- [employer] has assisted pt with completion of [place] [facility] vilma. CM faxing documentation to [facility] & calling now to verify if they are able to accept pt with that. If unable, CM to fax & verify w/ [facility]. If neither hospital is able to accept, attending plans to reach out to [facility]. @15:00- CM spoke with Shelby at [...] out of network insurance. CMupdated the attending. Toy Assembly Supervisor: Dina Abebe - Home Health/IV Infusion/Wound Vac Home Health Referral Indicated: Yes Home Health List Provided: Yes Indication for Home Health: Wound Care, Other Patient's Response: Yes Home Health Agencies: [facility] Patient given the option to view [...] No Entered by: Dina Abebe on 09/16/23 08 Report Signed by: Dian Abebe on 09/16/23 1616 <<Signature on File>> <Electronically signed by Dina Abebe> Co-Signed by: on [facility] Work Phone: 1(296) 416-973510-24-2023 Progress note Author Jacqueline Edwards [facility] September 16, 2023 3:33pm Note Date/Time September 16, 2023 3 :32pm [facility] Telegraph Service Rater Patient: GEOVANNY MEJÍA. : 1970 [place], [place] [address] Location: [address] [place] [address] Unit #: [id number] Social Work Daily Note Jacqueline Edwards MECHANICAL MANUFACTURING TECHNICIAN, DOOR TO DOOR FUNDRAISING COLLECTOR Service Date: 09/16/23 Daily Note - * [...] rehab. pt is needing to transfer her [facility] medicaid dual plan. SW got a copy of pts card, pt was unable to move much and couldnt sit up, she needed assistance to get her insurance card out of her wallet. Nurse LENY Hickey called with pt on Friday to transfer the Medicare portion. The Medicaid portion needs cancelled and re-submitted for [place] Medicaid for pts county she [place] be living in. SW made contact with [employer] for assistance and to re-submit pts medicaid vilma. Pt would like a facility near her cousin ursula's house. There are looking at [facility] in [place], and [facility]. SW made contact with [facility] and they are not in network with [facility]. [facility] is in Network. SWfollow up with pts cousin via phone as she would like her to help with finding anursing home. Per Ursula there is another facility near her [facility]. SW made contact with [facility], they are in network with [facility], Per there admissions person Emmanuel they would be willing to bring pt in with a pending Medicaid number, per [facility] both Medicare and Medicaid would need transfered. Referral sent to [place] for review. Marisol from [facility] to meet with pt. SW to also meet back to assist with canceling [place] if Marisol has not been able to assist pt. Soft Shoe Dancer: Jacqueline Edwards, MECHANICAL MANUFACTURING TECHNICIAN, DOOR TO DOOR FUNDRAISING COLLECTOR Day 2 Note: 09/15/23 MANOLO met back with pt, pt was asleep but easily aroused. MANOLO explained to pt that we needed to terminate her [place] Medicaid before submitting an application for [place] Medicaid and this needed to be initiated prior to her Dcing to a SNF. MANOLO called [facility] and had to leave a requesting that they call pt back to so that pt could terminate her [place] Medicaid there and give her new address and county. Soft Shoe Dancer: Jacqueline Edwards, MECHANICAL MANUFACTURING TECHNICIAN, DOOR TO DOOR FUNDRAISING COLLECTOR Day 3 Note: 09/16/23 Pt transfer pending [...] Source initiated a Medicaid application for pt. [place] Medicaid Application/pending number forward to CM Dina if needed for transfer out. Pts cousin Ursula shared with CM that she heard that pt may havea history of substance abuse and this could be contributing to her current condition. SW unsure of this and encouraged her to speak with physician about this when she is next here visiting with pt. Soft Shoe Dancer: Jacqueline Edwards LSW, MSW - * Requested Intvs/Referrals * Knit Goods Washer Referrals: SNF/LTAC Placement Soft Shoe Dancer I Referrals: Financial Issues/Medicaid Applications - * HEALTHCARE DECISIONS * Living Will: Unknown Durable Power of Textile Designer for Health Care: Unknown [facility] DNR Comfort Care: Unknown [facility] DNR Comfort Care Arrest: Unknown - Home Health/IV Infusion/Wound Vac Home Health Referral Indicated: Yes Home Health List Provided: Yes Indication for Home Health: Wound Care, Other Patient's Response: Yes Home Health Agencies: [facility] Patient given options to view quality scores of facility?: No Entered by: MARY Rodriguez MSW on 09/16/23 1523 Report Signed by: LORNA Ovalle on 09/16/23 1533 <<Signature on File>> <Electronically signed by LORNA Hill> Report Signed by: on [facility] Work Phone: [phone]) 525-155310-24-2023 Progress note Author Jacqueline Edwards [facility] September 16, 2023 3:33pm Note Date/Time September 16, 2023 3 :32pm [facility] Telegraph Service Rater Patient: GEOVANNY MEJÍA [address] : 1970 [place], [place] [address] Location: [phone] Unit #: [id number] Social Work Daily Note LORNA Hill Service [...] rehab. pt is needing to transfer her [facility] medicaid dual plan. SW got a copy of pts card, pt was unable to move much and couldnt sit up, she needed SW assistance to get her insurance card out of her wallet. Nurse LENY Hickey called with pt on Friday to transfer the Medicare portion. The Medicaid portion needs cancelled and re-submitted for [place] Medicaid for pts county she will be living in. SW made contact with [employer] for assistance and to re-submit pts medicaid vilma. Pt would like a facility near her cousin ursula's house. There are looking at [facility] in [place], and [facility]. SW made contact with [facility] and they are not in network with [facility]. [facility] is in Network. SWfollow up with pts cousin via phone as she would like her to help with finding anursing home. Per Ursula there is another facility near her [facility]. SW made contact with [facility], they are in network with [facility], Per there admissions person Emmanuel they would be willing to bring pt in with a pending Medicaid number, [facility] both Medicare and Medicaid would need transfered. Referral sent to [place] for review. Marisol from [facility] to meet with pt. MANOLO to also meet back to assist with canceling [place] Medicaid if Marisol has not been able to assist pt. Soft Shoe Dancer: Jacqueline Edwards, MECHANICAL MANUFACTURING TECHNICIAN, DOOR TO DOOR FUNDRAISING COLLECTOR Day 2 Note: 09/15/23 SW met back with pt, pt was asleep but easily aroused. MANOLO explained to pt that we needed to terminate her [place] Medicaid before submitting an application for [place] Medicaid and this needed to be initiated prior to her Dcing to a SNF. SW called [facility] and had to leave a requesting that they call pt back to so that pt could terminate her [place] Medicaid there and give her new address and county. Soft Shoe Dancer: Jacqueline Edwards, MECHANICAL MANUFACTURING TECHNICIAN, DOOR TO DOOR FUNDRAISING COLLECTOR Day 3 Note: 09/16/23 Pt transfer pending for another hospital. Referral was sent toto SNFS, [facility] was able to accept, [place] was reviewing. Both pt and pt cousin Ursula aware of possible transfer out, but know SNF is still the back up plan, they can also follow back when pt Dcs from other setting and still requires a skilled stay. [facility] [employer] initiated a Medicaid application for pt. [place] Medicaid Application/pending number forward to Dina if needed for transfer out. Pts cousin Ursula shared with CM that she heard that pt may havea history of substance abuse and this could be contributing to her current condition. SW unsure of this and encouraged her to speak with physician about this when she is next here visiting with pt. Soft Shoe Dancer: Jacqueline Edwards LSW, MSW - * Requested Intvs/Referrals * Knit Goods Washer Referrals: SNF/LTAC Placement Soft Shoe Dancer I Referrals: Financial Issues/Medicaid Applications - * HEALTHCARE DECISIONS * Living Will: Unknown Durable Power of Textile Designer for Health Care: Unknown [facility] [place] DNR Comfort Care: Unknown [facility] DNR Comfort Care Arrest: Unknown - Home Health/IV Infusion/Wound Vac Home Health Referral Indicated: Yes Home Health List Provided: Yes Indication for Home Health: Wound Care, Other Patient's Response: Yes Home Health Agencies: [facility] Patient given options to view quality scores of facility?: No Entered by: MARY Rodriguez MSW on 09/16/23 1523 Report Signed by: LORNA Ovalle on 09/16/23 1533 <<Signature on File>> <Electronically signed by LORNA Hill> Report Signed by: on [facility] Work Phone: 1(270) 743-595810-24-2023 Progress note Author Troy Garber [facility] September 16, 2023 11:39am Note Date/Time September 16, 2023 1 1:39am [facility] Medical Records Patient: GEOVANNY MEJÍA [address] : 1970 [place], [place] [address] Location: [facility] [phone] Unit #: [id number] Progress Note - Hospitalist Troy Garber MD [...] with the direction to call first the [facility] for the transfer, and if that does [...] a call has been placed to the [facility], according to their choice, and the third choice being the [facility], if the [facility] transfer does not materialize. We will continue with supportive but aggressive management pending the transfer. Current Code Status & Diet: 09/08/23 13:19 Code Status Routine Resuscitation Status: Full Code Code Status Order Placed: Code Status Ordered 09/08/23 at 1321 09/13/23 08:00 Regular Diet Texture: Regular Fluid Restrictions?: No Consult Senior Water/Wastewater Engineer for Oral Supplements/Nourishments?: No Oral Supplement 1: [...] morning, I had given the option of [facility] and the [facility]. Both patient and sister would want me to try [facility] first. A call was placed today [facility] transfer line [phone], and I did speak with Radha ALEGRIA. [...] Troy Garber MD> Report Signed by: on [facility] Work Phone: [phone]) 641-154310-24-2023 Progress note Author Troy Garber [facility] September 16, 2023 11:39am Note Date/Time September 16, 2023 1 1:39am [facility] Medical Records Patient: GEOVANNY MEJÍA [address] : 1970 [place], [place] [address] Location: [phone] Unit #: [id number] Progress Note - Hospitalist Troy Garber MD [...] with the direction to call first the [facility] for the transfer, and if that does [...] a call has been placed to the [facility], according to their choice, and the third choice being the [facility], if the [facility] transfer does not materialize. We will continue with supportive but aggressive management pending the transfer. Current Code Status & Diet: 09/08/23 13:19 Code Status Routine Resuscitation Status: Full Code Code Status Order Placed: Code Status Ordered 09/08/23 at 1321 09/13/23 08:00 Regular Diet Texture: Regular Fluid Restrictions?: No Consult Senior Water/Wastewater Engineer for Oral Supplements/Nourishments?: No Oral Supplement 1: [...] morning, I had given the option of [facility] and the [facility]. Both patient and sister would want me to try [facility] first. A call was placed today [facility] transfer line [phone], and I did speak with Radah ALEGRIA. She took the details including the [...] Troy Garber MD> Report Signed by: on [facility] Work Phone: [phone]) [phone] Progress note Author David Elena [facility] September 16, 2023 6:44am Note Date/Time September 16, 2023 6 :42am [facility] Medical Records Patient: GEOVANNY MEJÍA [address] : 1970 [place], [place] [address] Location: [phone] Unit #: [id number] Status Note/Update David Elena MD Service Dt/Tm: 09/15/232044 Note: GEOVANNY MEJÍA is a 53 yr old F who was admitted on 09/08/23 for INTRA ABDOMINAL ABCESS. Transfer process to go to [facility] started. Discussed with patient and also patient's close relative Ursula Echevarria about the transfer to [facility]. They have agreed to be transferred. Spoke to Shabnam transfer nurse at [facility] phone number [phone]. Detailed history was given. She will speak to neurosurgery at [facility] and find a bed for thepatient as soon as possible. She will call the floor and do the needful. Discussed with the nurse on the floor. Awaiting a bed at [facility]. Entered by: David Eelna on 09/16/23638 Report Signed by: David Elena MD on 09/16/23643 <<Signature on File>> <Electronically signed by David Elena MD> Report Signed by: on [facility] Work Phone: [phone]) 889-341510-24-2023 Progress note Author David Elena [facility] September 16, 2023 6:44am Note Date/Time September 16, 2023 6 :42am [facility] Medical Records Patient: GEOVANNY MEJÍA [address] : 1970 [place] [address] Location: [address] [place] [address] Unit #: [id number] Status Note/Update David Elena MD Service Dt/Tm: 09/15/232044 Note: GEOVANNY MEJÍA is a 53 yr old F who was admitted on 09/08/23 for INTRA ABDOMINAL ABCESS. Transfer process to go to [facility] started. Discussed with patient and also patient's close relative Ursula Echevarria about the transfer to [facility]. They have agreed to be transferred. Spoke to Shabnam transfer nurse at [facility] phone number [phone]. Detailed history was given. She will speak [...] David Elena MD> Report Signed by: on [facility] Work Phone: 1(297) 809-820210-23-2023 Progress note Author Alec Clemons [facility] September 15, 2023 8:54pm Note Date/Time September 15, 2023 4 :10pm [facility] Medical Records Patient: GEOVANNY MEJÍA. : 1970 [place], [place] [address] Location: [phone] Unit #: [id number] Progress Note Neurosurgery Lucy Lara PA-C Service [...] H Lymph % (Auto) 10.2 L D Nash % (Auto) 3.6 D Eos % (Auto) 0.2 Baso % (Auto) 0.0 Nucleat RBC Rel Count 0.0 Absolute Neuts (auto) 48428 H Absolute Lymphs (auto) 2000 Absolute Monos [...] Entered by: Lucy Lara PA-C on 09/15/23 4919 Report Signed by: Lucy Lara PA-C on 09/15/23 8228 <<Signature on File>> < 53 <<Signature on File>> <Electronically signed by Alec Clemons MD> [facility] Work Phone: 1(782) 235-800910-23-2023 Progress note Author Alec Clemons [facility] September 15, 2023 8:54pm Note Date/Time September 15, 2023 4 :10pm [facility] Medical Records Patient: GEOVANNY MEJÍA. : 1970 [place], [place] [address] Location: [facility] [phone] Unit #: [id number] Progress Note Neurosurgery Lucy Lara PA-C Service [...] H Lymph % (Auto) 10.2 L D Nash % (Auto) 3.6 D Eos % (Auto) 0.2 Baso % (Auto) 0.0 Nucleat RBC Rel Count 0.0 Absolute Neuts (auto) 67113 H Absolute Lymphs (auto) 2000 Absolute Monos [...] File>> <Electronically signed by Alec Clemons MD> [facility] Work Phone: 1(228) 160-561410-23-2023 Progress note Author Dina Abebe [facility] September 15, 2023 3:54pm Note Date/Time September 15, 2023 9 :16am [facility] Case Management Patient: GEOVANNY MEJÍA. : 1970 [place], [place] [address] Location: [phone] Unit #: [id number] Case Management Daily Note Dina Abebe Service Date: 09/15/23 Case Mgmt Daily Note - Plan of Care Toy Assembly Supervisor Agrees with Attending and Consult Plan: Yes - Patient Preferences & Goals What is the patient's preference?: New SNF Recommended acute discharge goals: New SNF - COVID-19 Was Position Statement Letter Delivered?: Yes - Hospital Stay Days Day 1 Comment: 09/08 Met with patient in the room. Patient is from [place]. She is up here to visit her sister. Patient reporting she is normally independent. Doesnot have a PCP. Patient would like to use [facility] OP Pharm for meds. Planning to have her cousin pick her up at d/c. Contact is her cousin Ursula. Denies having LW/dPOA. Toy Assembly Supervisor: Evelyne Pena, RN Day 2 Comment: 09/09 Met with patient in the room. Patient asking to get up and move around. PT/OT to eval. S/p L ABD drain placement. Patient agreeable to [facility] for drain mgmt if needed. Reporting she will be going to [facility] at d/c to staywith her cousin Ursula. CM spoke with patients cousin Ursula via telephone who reports she is ok with [facility] coming to her home if patient would go there at d/c. Ursula reporting patient was homeless in [place] and recently move to [place] with faith Amaya. Toy Assembly Supervisor: Evelyne Pena, RN Day 3 Comment: 09/10 D/c needs pending medical course. Jr present. Dilaudid CAP MAKER. PT/OT. ID c/s. Therapy recs for IPR vs OP PT. Will follow to assist with d/c needs. Toy Assembly Supervisor: Evelyne Pena, RN Day 4 Comment: 09/11 Met with patient in the room who is planning to d/c to her [facility] in [place], [place]. Patient is agreeable to [facility]. CM spoke with Ursula who is agreeable for patient to come there at d/c. Referral sent to [facility].Await approval. CAP MAKER. ABD drain. NPO. ID c/s. PT/OT. Toy Assembly Supervisor: Evelyne Pena, RN Day 5 Comment: 09/12 Met with patient in the room to discuss d/c plan. Patient unable to move b/l LE. No sensation to RLE. Does have sesation to LLE. PT/OT recommending SNF, patient agreeable. She would like to go somewhere near her cousin Ursula in [place], [place]. CM [facility] [place]. c/s for SNF placement and [facility] assist with [place]. Patient will need a precert. CAP MAKER continues. If patient would improve with mobility, she has been accepted to [facility]. CM spoke with Ursula via telephone to update. Toy Assembly Supervisor: Evelyne Pena, RN Day 6 Comment: 09/15- POD 2. CM spoke with patient at bedside. VSS. WBC 19.9. PT/OT rec SNF. Pt verbalized agreeable for SNF and would like [facility]. MANOLO c/s & reported that [facility] is not in network with pt insurance. MANOLO spoke w/ pt & Lamin is now reviewing patient. Pt is awaiting the start of [place] [facility] application with [facility] as current dual insurance is out of state. Pt willalso require a precert when medically ready. CM following. Toy Assembly Supervisor: Dina Abebe R - Home Health/IV Infusion/Wound Vac Home Health Referral Indicated: Yes Home Health List Provided: Yes Indication for Home Health: Wound Care, Other Patient's Response: Yes Home Health Agencies: [facility] Patient given the option to view quality scores of facility?: Yes - Half-Way Facility SNF List Provided: Yes Half-Way Facilities: [facility] Patient given the option to view [...] signed by Dina Abebe> Co-Signed by: on [facility] Work Phone: 1(251) 391-780910-23-2023 Progress note Author Dina Abebe [facility] September 15, 2023 3:54pm Note Date/Time September 15, 2023 9 :16am [facility] Case Management Patient: GEOVANNY MEJÍA. : 1970 [place], [place] [address] Location: [phone] Unit #: [id number] Case Management Daily Note Dina Abebe Service Date: 09/15/23 Case Mgmt Daily Note - Plan of Care Toy Assembly Supervisor Agrees with Attending and Consult Plan: Yes - Patient Preferences & Goals What is the patient's preference?: New SNF Recommended acute discharge goals: New SNF - COVID-19 Was Position Statement Letter Delivered?: Yes - Hospital Stay Days Day 1 Comment: 09/08 Met with patient in the room. Patient is from [place]. She is up here to visit her sister. Patient reporting she is normally independent. Doesnot have a PCP. Patient would like to use [facility] OP Pharm for meds. Planning to have her cousin pick her up at d/c. Contact is her cousin Ursula. Denies having LW/dPOA. Toy Assembly Supervisor: Evelyne Pena, RN Day 2 Comment: 09/09 Met with patient in the room. Patient asking to get up and move around. [facility] S/p L ABD drain placement. Patient agreeable to [facility] for drain mgmt if needed. Reporting she will be going to [facility] at d/c to staywith her cousin Ursula. CM spoke with patients cousin Ursula via telephone who reports she is ok with [facility] coming to her home if patient would go there at d/c. Ursula reporting patient was homeless in [place] and recently move to [place] with faith Amaya. Toy Assembly Supervisor: Evelyne Pena, RN Day 3 Comment: 09/10 D/c needs pending medical course. Jr present. Dilaudid CAP MAKER. PT/OT. ID c/s. Therapy recs for IPR vs OP PT. Will follow to assist with d/c needs. Toy Assembly Supervisor: Evelyne Pena, RN Day 4 Comment: 09/11 Met with patient in the room who is planning to d/c to her [facility] in [place], [place]. Patient is agreeable to [facility]. CM spoke with Ursula who is agreeable for patient to come there at d/c. Referral sent to [facility].Await approval. CAP MAKER. ABD drain. NPO. ID c/s. PT/OT. Toy Assembly Supervisor: Evelyne Pena, RN Day 5 Comment: 09/12 Met with patient in the room to discuss d/c plan. Patient unable to move b/l LE. No sensation to RLE. Does have sesation to LLE. PT/OT recommending SNF, patient agreeable. She would like to go somewhere near her cousin Ursula in [place], [place]. CM assisted patient with changing her address withher [facility] insurance to an [place] address. SW c/s for SNF placement and GW[place] assist with [place]. Patient will need a precert. CAP MAKER continues. If patient would improve with mobility, she has been accepted to [facility]. CM spoke with Ursula via telephone to update. Toy Assembly Supervisor: Evelyne Pena, RN Day 6 Comment: 09/15- POD 2. CM spoke with patient at bedside. VSS. WBC 19.9. PT/OT rec SNF. Pt verbalized agreeable for SNF and would like [facility]. MANOLO c/s & reported that [facility] is not in network with pt insurance. MANOLO spoke w/ pt & Lamin is now reviewing patient. Pt is awaiting the start of [facility] application with [facility] [employer] as current dual insurance is out of state. Pt willalso require a precert when medically ready. CM following. Toy Assembly Supervisor: Dina Abebe - Home Health/IV Infusion/Wound Vac Home Health Referral Indicated: Yes Home Health List Provided: Yes Indication for Home Health: Wound Care, Other Patient's Response: Yes Home Health Agencies: [facility] Patient given the option to view quality scores of facility?: Yes - Half-Way Facility SNF List Provided: Yes Half-Way Facilities: [facility] Patient given the option to view [...] signed by Dina Abebe> Co-Signed by: on [facility] Work Phone: 1([phone]) 803-402110-23-2023 Progress note Author Jacqueline Edwards [facility] September 15, 2023 3:53pm Note Date/Time September 15, 2023 3 :53pm [facility] Telegraph Service Rater Patient: GEOVANNY MEJÍA [address] : 1970 [place], [place] [address] Location: [phone] Unit #: [id number] Social Work Daily Note Jacqueline Edwards MECHANICAL MANUFACTURING TECHNICIAN, DOOR TO DOOR FUNDRAISING COLLECTOR Service Date: 09/15/23 SW Daily Note - [...] rehab. pt is needing to transfer her [facility] medicaid dual plan. SW got a copy of pts card, pt was unable to move much and couldnt sit up, she needed SW assistance to get her insurance card out of her wallet. Nurse LENY Hickey called with pt on Friday to transfer the Medicare portion. The Medicaid portion needs cancelled and re-submitted for [place] Medicaid for pts county she [place] be living in. SW made contact with [facility] for assistance and to re-submit pts medicaid vilma. Pt would like a facility near her cousin ursula's house. There are looking at [facility] in [place], and [facility]. SW made contact with [facility] and they are not in network with [facility]. [facility] is in Network. SWfollow up with pts cousin via phone as she would like her to help with finding anursing home. Per Ursula there is another facility near her [facility]. SW made contact with [facility], they are in network with [facility], Per there admissions person Emmanuel they would be willing to bring pt in with a pending Medicaid number, per Emmanuel both Medicare and Medicaid would need transfered. Referral sent to [place] for review. Marisol from [facility] to meet with pt. SW to also meet back to assist with canceling [place] Medicaid if Marisol has not been able to assist pt. Soft Shoe Dancer: Jacqueline Edwards, MECHANICAL MANUFACTURING TECHNICIAN, DOOR TO DOOR FUNDRAISING COLLECTOR Day 2 Note: 09/15/23 SW met back with pt, pt was asleep but easily aroused. SW explained to pt that we needed to terminate her [place] Medicaid before submitting an application for [place] Medicaid and this needed to be initiated prior to her Dcing to a SNF. SW called [facility] and had to leave a VM requesting that they call pt back to so that pt could terminate her [place] Medicaid there and give her new address and county. Soft Shoe Dancer: Jacqueline Edwards LSW, MSW - * Requested Intvs/Referrals * Knit Goods Washer Referrals: SNF/LTAC Placement Soft Shoe Dancer I Referrals: Financial Issues/Medicaid Applications - * HEALTHCARE DECISIONS * Living Will: Unknown Durable Power of Textile Designer for Health Care: Unknown [facility] DNR Comfort Care: Unknown [facility] DNR Comfort Care Arrest: Unknown - Home Health/IV Infusion/Wound Vac Home Health Referral Indicated: Yes Home Health List Provided: Yes Indication for Home Health: Wound Care, Other Patient's Response: Yes Home Health Agencies: [facility] Patient given options to view quality scores of facility?: No Entered by: MARY Rodriguez MSW on 09/15/23 1549 Report Signed by: LORNA Ovalle on 09/15/23 1553 <<Signature on File>> <Electronically signed by LORNA Hill> Report Signed by: on [facility] Work Phone: 1(251) 707-103910-23-2023 Progress note Author Jacqueline Edwards [facility] September 15, 2023 3:53pm Note Date/Time September 15, 2023 3 :53pm [facility] Telegraph Service Rater Patient: GEOVANNY MEJÍA [address] : 1970 [place], [place] [address] Location: [phone] Unit #: [id number] Social Work Daily Note LORNA Hill Service Date: 09/15/23 SW Daily Note - [...] rehab. pt is needing to transfer her [facility] medicaid dual plan. SW got a copy of pts card, pt was unable to move much and couldnt sit up, she needed SW assistance to get her insurance card out of her wallet. Nurse LENY Hickey called with pt on Friday to transfer the Medicare portion. The Medicaid portion needs cancelled and re-submitted for [place] Medicaid for pts county she [place] be living in. SW made contact with [facility] for assistance and to re-submit pts medicaid vilma. Pt would like a facility near her cousin ursula's house. There are looking at [facility] in [place], and [facility]. SW made contact with [facility] and they are not in network with [facility]. [facility] is in Network. SWfollow up with pts cousin via phone as she would like her to help with finding anursing home. Per Ursula there is another facility near her [facility]. SW made contact with [facility], they are in network with [facility], Per there admissions person Emmanuel they would be willing to bring pt in with a pending Medicaid number, per Nauni both Medicare and Medicaid would need transfered. Referral sent to [place] for review. Marisol from [facility] to meet with pt. SW to also meet back to assist with canceling [place] Medicaid if Marisol has not been able to assist pt. Soft Shoe Dancer: Jacqueline Edwards, MARY, DOOR TO DOOR FUNDRAISING COLLECTOR Day 2 Note: 09/15/23 SW met back with pt, pt was asleep but easily aroused. SW explained to pt that we needed to terminate her [place] Medicaid before submitting an application for [place] Medicaid and this needed to be initiated prior to her Dcing to a SNF. SW called [facility] and had to leave a VM requesting that they call pt back to so that pt could terminate her [place] Medicaid there and give her new address and county. Soft Shoe Dancer: Jacqueline Edwards, MARY, DOOR TO DOOR FUNDRAISING COLLECTOR - * Requested Intvs/Referrals * Knit Goods Washer Referrals: SNF/LTAC Placement Soft Shoe Dancer I Referrals: Financial Issues/Medicaid Applications - * HEALTHCARE DECISIONS * Living Will: Unknown Durable Power of Textile Designer for Health Care: Unknown [facility] DNR Comfort Care: Unknown State [facility] DNR Comfort Care Arrest: Unknown - Home Health/IV Infusion/Wound Vac Home Health Referral Indicated: Yes Home Health List Provided: Yes Indication for Home Health: Wound Care, Other Patient's Response: Yes [place] Health Agen[place] Patient given options to view quality scores of facility?: No Entered by: MARY Rodriguez MSW on 09/15/23 1549 Report Signed by: LORNA Ovalle on 09/15/23 6569 <<Signature on File>> <Electronically signed by LORNA Hill> Report Signed by: on [facility] Work Phone: 1(574) 294-564910-23-2023 Progress note Author Jacqueline Edwards [facility] September 15, 2023 2:21pm Note Date/Time September 15, 2023 2 :20pm [facility] Telegraph Service Rater Patient: GEOVANNY MEJÍA [address] : 1970 [place], [place] [address] Location: [phone] Unit #: [id number] Social Work Daily Note Jacqueline HERNANDEZ, LORNA [...] rehab. pt is needing to transfer her [facility] medicaid dual plan. SW got a copy of pts card, pt was unable to move much and couldnt sit up, she needed assistance to get her insurance card out of her wallet. Nurse LENY Hickey called with pt on Friday to transfer the Medicare portion. The Medicaid portion needs cancelled and re-submitted for [place] Medicaid for pts county she [place] be living in. SW made contact with [employer] for assistance and to re-submit pts medicaid vilma. Pt would like a facility near her cousin ursula's house. There are looking at [facility] in [place], and [facility]. SW made contact with [facility] and they are not in network with [facility]. [facility] is in Network. SWfollow up with pts cousin via phone as she would like her to help with finding anursing home. Per Ursula there is another facility near her [facility]. SW made contact with [facility], they are in network with [facility], Per there admissions person Emmanuel they would be willing to bring pt in with a pending Medicaid number, per Emmanuel both Medicare and Medicaid would need transfered. Referral sent to [place] for review. Marisol from [facility] to meet with pt. SW to also meet back to assist with canceling [place] Medicaid if Marisol has not been able to assist pt. Soft Shoe Dancer: Jacqueline Edwards LSW, MSW - * Information * Oriented to: Person, Place, Time, Situation Mental Status/Mood: Alert and Oriented, Cooperative - * Requested Intvs/Referrals * Knit Goods Washer Referrals: SNF/LTAC Placement Soft Shoe Dancer I Referrals: Financial Issues/Medicaid Applications - * HEALTHCARE DECISIONS * Living Will: Unknown Durable Power of Textile Designer for Health Care: Unknown [place] DNR Comfort Care: Unknown State [facility] DNR Comfort Care Arrest: Unknown - Home Health/IV Infusion/Wound Vac Home Health Referral Indicated: Yes Home Health List Provided: Yes Indication for Home Health: Wound Care, Other Patient's Response: Yes Home Health Agencies: [facility] Patient given options to view quality scores of facility?: No Entered by: MARY Rodriguez MSW on 09/15/23 1405 Report Signed by: LORNA Ovalle on 09/15/23 1421 <<Signature on File>> <Electronically signed by LORNA Hill> Report Signed by: on [facility] Work Phone: 1(304) 928-842210-23-2023 Progress note Author Jacqueline Edwards [facility] September 15, 2023 2:21pm Note Date/Time September 15, 2023 2 :20pm [facility] Telegraph Service Rater Patient: GEOVANNY MEJÍA [address] : 1970 [place], [place] [address] Location: [phone] Unit #: [id number] Social Work Daily Note Jacqueline Edwards MECHANICAL MANUFACTURING TECHNICIAN, DOOR TO DOOR FUNDRAISING COLLECTOR Service Date: 09/15/23 MANOLO Daily Note - [...] rehab. pt is needing to transfer her [facility] medicaid dual plan. SW got a copy of pts card, pt was unable to move much and couldnt sit up, she needed assistance to get her insurance card out of her wallet. Nurse LENY Hickey called with pt on Friday to transfer the Medicare portion. The Medicaid portion needs cancelled and re-submitted for [place] Medicaid for pts county she [place] be living in. SW made contact with [facility] for assistance and to re-submit pts medicaid vilma. Pt would like a facility near her cousin ursula's house. There are looking at [facility] in [place], and [facility]. SW made contact with [facility] and they are not in network with [facility]. [facility] is in Network. SWfollow up with pts cousin via phone as she would like her to help with finding anursing home. Per Ursula there is another facility near her [facility]. SW made contact with [facility], they are in network with [facility], Per there admissions person Emmanuel they would be willing to bring pt in with a pending Medicaid number, per Britraza both Medicare and Medicaid would need transfered. Referral sent to [place] for review. Marisol from [facility] to meet with pt. SW to also meet back to assist with canceling [place] Medicaid if Marisol has not been able to assist pt. Soft Shoe Dancer: Jacqueline Edwards LSW, MSW - * Information * Oriented to: Person, Place, Time, Situation Mental Status/Mood: Alert and Oriented, Cooperative - * Requested Intvs/Referrals * Knit Goods Washer Referrals: SNF/LTAC Placement Soft Shoe Dancer I Referrals: Financial Issues/Medicaid Applications - * HEALTHCARE DECISIONS * Living Will: Unknown Durable Power of Textile Designer for Health Care: Unknown [facility] DNR Comfort Care: Unknown [facility] DNR Comfort Care Arrest: Unknown - Home Health/IV Infusion/Wound Vac Home Health Referral Indicated: Yes Home Health List Provided: Yes Indication for Home Health: Wound Care, Other Patient's Response: Yes Home Health Agencies: [facility] Patient given options to view quality scores of facility?: No Entered by: MARY Rodriguez MSW on 09/15/23 1405 Report Signed by: LORNA Ovalle on 09/15/23 1421 <<Signature on File>> <Electronically signed by LORNA Hill> Report Signed by: on [facility] Work Phone: 1(728) 362-269210-23-2023 Progress note Author Troy Garber [facility] September 15, 2023 1:57pm Note Date/Time September 15, 2023 7 :45am [facility] Medical Records Patient: GEOVANNY MEJÍA. : 1970 [place], [place] [address] Location: [address] [place] [address] Unit #: [id number] Progress Note - Hospitalist Troy Garber MD [...] Diet Texture: Regular Fluid Restrictions?: No Consult Senior Water/Wastewater Engineer for Oral Supplements/Nourishments?: No Discussed Patient's Care [...] separately. Entered by: Troy Garber MD on 09/15/23744 Report Signed by: Troy Garber MD on 09/15/23 1357 <<Signature on File>> <Electronically signed by Troy Garber MD> Report Signed by: on [facility] Work Phone: 1(886) 481-100910-23-2023 Progress note Author Troy Garber [facility] September 15, 2023 1:57pm Note Date/Time September 15, 2023 7 :45am [facility] Medical Records Patient: GEOVANNY MEJÍA. : 1970 [place], [place] [address] Location: [facility] [phone] Unit #: [id number] Progress Note - Hospitalist Troy Garber MD [...] Diet Texture: Regular Fluid Restrictions?: No Consult Senior Water/Wastewater Engineer for Oral Supplements/Nourishments?: No Discussed Patient's Care [...] Entered by: Troy Garber MD on 09/15/23 3041 Report Signed by: Troy Garber MD on 09/15/23 9297 <<Signature on File>> <Electronically signed by Troy Garber MD> Report Signed by: on [facility] Work Phone: [phone]) 811-407810-22-2023 Progress note Author Alec Clemons [facility] September 14, 2023 8:12pm Note Date/Time September 14, 2023 1 1:07am [facility] Medical Records Patient: GEOVANNY MEJÍA [address] : 1970 [place], [place] [address] Location: [phone] [facility]: [id number] Note Neurosurgery Lucy Lara PA-C Service [...] Monocytes % (Manual) 2.0 Abs Neuts (Manual) 04904 H Abs Lymphs (Manual) 2366 Abs Monocytes [...] File>> <Electronically signed by Alec Clemons MD> [facility] Work Phone: 1(864) 140-213310-22-2023 Progress note Author Alec Clemons [facility] September 14, 2023 8:12pm Note Date/Time September 14, 2023 1 1:07am [facility] Medical Records Patient: GEOVANNY MEJÍA [address] : 1970 [place] [address] Location: [address] [place] [address] Unit #: [id number] Progress Note Neurosurgery Lucy Lara PA-C Service [...] Monocytes % (Manual) 2.0 Abs Neuts (Manual) 60620 H Abs Lymphs (Manual) 2366 Abs Monocytes [...] Blood,Venous Blood Culture - Preliminary Staphylococcus aureus 10/21/23 16:06 Blood,Venous Blood Culture - Preliminary No [...] File>> <Electronically signed by Alec Clemons MD> [facility] Work Phone: 1([phone]) 462-169710-22-2023 Progress note Author Troy Garber [facility] September 14, 2023 3:39pm Note Date/Time September 14, 2023 9 :29am [facility] Medical Records Patient: GEOVANNY MEJÍA. : 1970 [place], [place] [address] Location: [phone] Unit #: [id number] Progress Note - Hospitalist Troy Garber MD [...] Diet Texture: Regular Fluid Restrictions?: No Consult Senior Water/Wastewater Engineer for Oral Supplements/Nourishments?: No Discussed Patient's Care [...] Entered by: Troy Garber MD on 09/14/23 2466 Report Signed by: Troy Garber MD on 09/14/23 3456 <<Signature on File>> <Electronically signed by Troy Garber MD> Report Signed by: on [facility] Work Phone: 1(883) 506-816010-22-2023 Progress note Author Troy Garber [facility] September 14, 2023 3:39pm Note Date/Time September 14, 2023 9 :29am [facility] Medical Records Patient: GEOVANNY MEJÍA. : 1970 [place], [place] [address] Location: [address] [place] [address] Unit #: [id number] Progress Note - Hospitalist Troy Garber MD Service Dt/Tm: 09/14/23 0951 Assessment/Plan Assessment/Plan (1) Abscess in epidural space [...] Diet Texture: Regular Fluid Restrictions?: No Consult Senior Water/Wastewater Engineer for Oral Supplements/Nourishments?: No Discussed Patient's Care [...] Signed by: Troy Garber MD on 09/14/23 153 <<Signature on File>> <Electronically signed by Troy Garber MD> Report Signed by: on [facility] Work Phone: 1(462) 770-665210-22-2023 Progress note Author Noy Lechuga [facility] September 14, 2023 10:24am Note Date/Time September 14, 2023 7 :25am [facility] Medical Records Patient: GEOVANNY MEJÍA. : 1970 [place] [address] Location: [address] [place] [address] Unit #: [id number] Progress Note Surgical Justin Encinas ([facility]) ASHTYN-Martir Service Dt/Tm: 09/14/23 1948 Patient seen and examined independently by me.? [...] 392 Neut % (Auto) Lymph % (Auto) Nash % (Auto) Eos % (Auto) Baso % (Auto) Nucleat RBC Rel Count Absolute Neuts (auto) Absolute Lymphs (auto) Absolute Monos (auto) Absolute Eos (auto) Absolute Basos (auto) Neutrophils % (Manual) 81.0 H Band Neutrophils % 4.0 Lymphocytes % (Manual) 13.0 L Monocytes % (Manual) 2.0 Abs Neuts (Manual) 65327 H Abs Lymphs (Manual) 2366 Abs Monocytes [...] Count Neut % (Auto) Lymph % (Auto) Nash % (Auto) Eos % (Auto) Baso % [...] Count Neut % (Auto) Lymph % (Auto) Nash % (Auto) Eos % (Auto) Baso % [...] Count Neut % (Auto) Lymph % (Auto) Nash % (Auto) Eos % (Auto) Baso % [...] 95.6 H Lymph % (Auto) 2.9 L Nash % (Auto) 1.4 L Eos % (Auto) 0.0 Baso % (Auto) 0.1 Nucleat RBC Rel Count 0.0 Absolute Neuts (auto) 78110 H Absolute Lymphs (auto) 1000 Absolute Monos [...] Staphylococcus aureus Staphylococcus epidermidis Entered by: Justin PerezNORTHEASTERN HEALTH SYSTEM [facility] TAHLEQUAHJODIE Donaldson on 09/14/23 0725 Report Signed by: Justin PerezNORTHEASTERN HEALTH SYSTEM – TAHLEQUAHAnika Encinas PA-C on 09/14/23 1019 <<Signature on File>> <Electronically signed by Justin PerezNORTHEASTERN HEALTH SYSTEM – TAHLEQUAHAnika FELICIANO> Report Signed by: Noy Lechuga MD on 09/14/23 1024 <<Signature on File>> <Electronically signed by Noy Lechuga MD> [facility] Work Phone: 1(646) 343-210510-22-2023 Progress note Author Noy Lechuga [facility] September 14, 2023 10:24am Note Date/Time September 14, 2023 7 :25am [facility] Medical Records Patient: GEOVANNY MEJÍA [address] : 1970 [place], [place] [address] Location: [phone] Unit #: [id number] Progress Note Surgical Justin Encinas ([facility]) JODIE Service Dt/Tm: 09/14/23 0725 Patient seen [...] Rate 76 09/14/23 03:15 Respiratory Rate 16 10/22/23 04:50 Blood Pressure 95/58 L 09/14/23 03:15 [...] 392 Neut % (Auto) Lymph % (Auto) Nash % (Auto) Eos % (Auto) Baso % (Auto) Nucleat RBC Rel Count Absolute Neuts (auto) Absolute Lymphs (auto) Absolute Monos (auto) Absolute Eos (auto) Absolute Basos (auto) Neutrophils % (Manual) 81.0 H Band Neutrophils % 4.0 Lymphocytes % (Manual) 13.0 L Monocytes % (Manual) 2.0 Abs Neuts (Manual) 55345 H Abs Lymphs (Manual) 2366 Abs Monocytes [...] Count Neut % (Auto) Lymph % (Auto) Nash % (Auto) Eos % (Auto) Baso % [...] Count Neut % (Auto) Lymph % (Auto) Nash % (Auto) Eos % (Auto) Baso % [...] Count Neut % (Auto) Lymph % (Auto) Nash % (Auto) Eos % (Auto) Baso % [...] 95.6 H Lymph % (Auto) 2.9 L Nash % (Auto) 1.4 L Eos % (Auto) 0.0 Baso % (Auto) 0.1 Nucleat RBC Rel Count 0.0 Absolute Neuts (auto) 55343 H Absolute Lymphs (auto) 1000 Absolute Monos [...] Staphylococcus aureus Staphylococcus epidermidis Entered by: Justin PerezN[facility])JODIE on 09/14/23 0725 Report Signed by: Justin PerezNORT[facility]ASTERN [facility]ALTH SYSTEM – TAHLEQUAHAnika Encinas PA-C on 09/14/23 1019 <<Signature on File>> <Electronically signed by Justin PerezN[facility]) JODIE> Report Signed by: Noy Lechuga MD on 09/14/23 1024 <<Signature on File>> <Electronically signed by Noy Lechuga MD> [facility] Work Phone: 1(155) 926-409910-21-2023 Progress note Author Noy Lechuga [facility] September 13, 2023 5:35pm Note Date/Time September 13, 2023 1 0:30am [facility] Medical Records Patient: GEOVANNY MEJÍA [address] : 1970 [place], [place] [address] Location: [address] [place] [address] Unit #: [id number] Progress Note Surgical Justin Encinas ([facility]) JODIE Service Dt/Tm: 09/13/23 1030 Patient seen [...] neurosurgery consulkted OR this AM with Dr. Lobel for Epidural spinal Abscess WBC trending up, [...] Count Neut % (Auto) Lymph % (Auto) Nash % (Auto) Eos % (Auto) Baso % [...] Count Neut % (Auto) Lymph % (Auto) Nash % (Auto) Eos % (Auto) Baso % [...] Count Neut % (Auto) Lymph % (Auto) Nash % (Auto) Eos % (Auto) Baso % [...] 95.6 H Lymph % (Auto) 2.9 L Nash % (Auto) 1.4 L Eos % (Auto) 0.0 Baso % (Auto) 0.1 Nucleat RBC Rel Count 0.0 Absolute Neuts (auto) 50169 H Absolute Lymphs (auto) 1000 Absolute Monos [...] Count Neut % (Auto) Lymph % (Auto) Nash % (Auto) Eos % (Auto) Baso % [...] Staphylococcus aureus Staphylococcus epidermidis Entered by: Justin PerezN[facility]JODIE on 09/13/23 1030 Report Signed by: Justin PerezN[facility]AHAnika Encinas PA-C on 09/13/23 1619 <<Signature on File>> <Electronically signed by Justin PerezN[facility] JODIE> Report Signed by: Noy Lechuga MD on 09/13/23 1735 <<Signature on File>> <Electronically signed by Noy Lechuga MD> [facility] Work Phone: 1(771) 533-557410-21-2023 Progress note Author Noy Lechuga [facility] September 13, 2023 5:35pm Note Date/Time September 13, 2023 1 0:30am [facility] Medical Records Patient: GEOVANNY MEJÍA [address] : 1970 [place], [place] [address] Location: [address] [place] [address] Unit #: [id number] Progress Note Surgical Justin Encinas ([facility]) JODIE Service Dt/Tm: 09/13/23 1030 Patient seen [...] Count Neut % (Auto) Lymph % (Auto) Nash % (Auto) Eos % (Auto) Baso % [...] Count Neut % (Auto) Lymph % (Auto) Nash % (Auto) Eos % (Auto) Baso % [...] Count Neut % (Auto) Lymph % (Auto) Nash % (Auto) Eos % (Auto) Baso % [...] 95.6 H Lymph % (Auto) 2.9 L Nash % (Auto) 1.4 L Eos % (Auto) 0.0 Baso % (Auto) 0.1 Nucleat RBC Rel Count 0.0 Absolute Neuts (auto) 73860 H Absolute Lymphs (auto) 1000 Absolute Monos [...] Count Neut % (Auto) Lymph % (Auto) Nash % (Auto) Eos % (Auto) Baso % [...] Staphylococcus aureus Staphylococcus epidermidis Entered by: Justin PerezN[facility]JODIE on 09/13/23 1030 Report Signed by: Justin PerezN[facility]ika Encinas PA-C on 09/13/23 1619 <<Signature on File>> <Electronically signed by Justin PerezN[facility] JODIE> Report Signed by: Noy Lechuga MD on 09/13/23 173 <<Signature on File>> <Electronically signed by Noy Lechuga MD> [facility] Work Phone: 1(761) 377-816010-21-2023 Progress note Author Troy Garber [facility] September 13, 2023 5:29pm Note Date/Time September 13, 2023 8 :00am [facility] Medical Records Patient: GEOVANNY MEJÍA [address] : 1970 [place], [place] [address] Location: [address] [place] [address] Unit #: [id number] Progress Note - Hospitalist Troy Garber MD [...] Diet Texture: Regular Fluid Restrictions?: No Consult Senior Water/Wastewater Engineer for Oral Supplements/Nourishments?: No Discussed Patient's Care [...] 09/12/23 10:31 CT Lumbar Spine W/O Cont 09494 Urgent 09/12/23 14:27 Lumbar Spine w/wo Contrast [...] Signed by: Troy Garber MD on 09/13/23 5909 <<Signature on File>> <Electronically signed by Troy Garber MD> Report Signed by: on [facility] Work Phone: 1(665) 155-985810-21-2023 Progress note Author Troy Garber [facility] September 13, 2023 5:29pm Note Date/Time September 13, 2023 8 :00am [facility] Medical Records Patient: GEOVANNY MEJÍA[address] : 1970 [place], [place] [address] Location: [address] [place] [address] Unit #: [id number] Progress Note - Hospitalist Troy Garber MD [...] Diet Texture: Regular Fluid Restrictions?: No Consult Senior Water/Wastewater Engineer for Oral Supplements/Nourishments?: No Discussed Patient's Care [...] 09/12/23 10:31 CT Lumbar Spine W/O Cont 06221 Urgent 09/12/23 14:27 Lumbar Spine w/wo Contrast [...] Signed by: Troy Garber MD on 09/13/23 5459 <<Signature on File>> <Electronically signed by Troy Garber MD> Report Signed by: on [facility] Work Phone: 1(433) 456-538710-21-2023 [facility] Patient: GEOVANNY MEJÍA. : 1970 [place] [address] Location: [address] [place] [address] Unit #: [id number] Procedure Note - Surgical Lucy Lara PA-C Service Dt/Tm: 09/13/23711 Date of Procedure: 09/13/23 Pre-Procedure Diagnosis: epidural abscess T4-5 and T10-11 Post Procedure Diagnosis: Same Performing Surgeon/Physician: Alec Clemons MD Was Rn Residential(s) Used: Yes Rn Residential(s): Lucy Lara Procedure Performed: Thoracic Hemilaminectomy T4-5 and T10-T11 Findings: Post Op Diagnosis Confirmed Type of Anesthesia Used: General Estimated Blood Loss: <500 Disposition of Specimen: Pathology Complications: None Disposition after Procedure: PACU Entered by: Lucy Lara PA-C on 09/13/23711 Report Signed by: Lucy Lara PA-C on 09/13/23722 < > Report Signed by: Alec Clemons MD on 09/13/23 4267 < > [facility]10-21-2023 Consult note Author Alec Clemons [facility] September 13, 2023 3:02pm Note Date/Time September 13, 2023 2 :02am [facility] Medical Records Patient: [address] : 1970 [place], [place] [address] Location: [phone] Unit #: [id number] Consultation Lucy Lara PA-C Service Date: 09/13/23 History of Present Illness Date of Consultation: 09/13/23 Time Seen: 01:30 History of Present Illness: GEOVANNY MEJÍA is a 53 yr old F who was admitted on 09/08/23 for INTRA ABDOMINAL ABCESS. 53-year-old female with past medical history of hypertension transferred from [facility] for abdominal pain on 09/08/2023. She was evaluated [facility] surgery and found to have left-sided [...] (2-10) L 09/08/23 18:27 Abs Neuts (Manual) 76699 /cmm (3643-5386) H 09/08/23 18:27 Abs Lymphs (Manual) 996 /cmm (7630-8210) L 09/08/23 18:27 Abs Monocytes (Manual) 249 [...] 09/12/23 10:31 CT Lumbar Spine W/O Cont 09092 Urgent 09/12/23 14:27 Lumbar Spine w/wo Contrast [...] point that she is required a continuous CAP MAKER. She has had difficulty walking since presentation [...] File>> <Electronically signed by Alec Clemons MD> [facility] Work Phone: 1(810) 583-477610-21-2023 [facility] 09-13-2023 [facility]2023 Procedure note [facility]10-21-2023 Procedure [facility] 09-13-2023 Progress note Author Jeb Mackey [facility] September 13, 2023 3:16am Note Date/Time September 13, 2023 2 :30am [facility] Medical Records Patient: GEOVANNY MEJÍA [address] : 1970 [place], [place] [address] Location: [phone] Unit #: [id number] Anesthesia Pre-Op Evaluation Chante Martínez HAM CLERK Service Dt/Tm: 09/13/237 GEOVNANY MEJÍA is a 53 yr old F. [...] Electrolyte Protocol (Phosphorus Replacement Protocol) 1 catrina MD DIRECTED PRN;Protocol PRN Reason: SEE COMMENTS [...] mg Hydromorphone HCl (Hydromorphone 6 Mg/30 Ml Butt Presser.Syring) 6 mg IV CAP MAKER DIRECTEDSCH Stop: 12/17/23 11:31 Last Admin: 09/12/23 [...] 1 Ea Cap) 1 ea PO DAILY [facility] Stop: 10/09/23 09:01 Last Admin: 09/12/23 09:55 [...] File>> <Electronically signed by Jeb Mackey DO> [facility] Work Phone: 1(126) 104-702610-21-2023 Progress note Author Jeb Mackey [facility] September 13, 2023 3:16am Note Date/Time September 13, 2023 2 :30am [facility] Medical Records Patient: GEOVANNY MEJÍA [address] : 1970 [place], [place] [address] Location: [phone] Unit #: [id number] Anesthesia Pre-Op Evaluation Chante Mauricio HAM CLERK Service Dt/Tm: 09/13/23226 GEOVANNY MEJÍA is a [...] mg Hydromorphone HCl (Hydromorphone 6 Mg/30 Ml Butt Presser.Syring) 6 mg IV CAP MAKER DIRECTEDSCH Stop: 12/17/23 11:31 Last Admin: 09/12/23 [...] File>> <Electronically signed by Jeb Mackey DO> [facility] Work Phone: 1(808) 176-673310-21-2023 Progress note Author Alec Clemons [facility] September 13, 2023 2:17am Note Date/Time September 13, 2023 2 :17am [facility] Medical Records Patient: GEOVANNY MEJÍA [address] : 1970 [place] [address] Location: [facility] [phone] Unit #: [id number] Status Note/Update Alec Clemons MD Service Dt/Tm: [...] Alec Clemons MD> Report Signed by: on [facility] Work Phone: 1([phone]) 210-194610-21-2023 Progress note Author Alec Clemons [facility] September 13, 2023 2:17am Note Date/Time September 13, 2023 2 :17am [facility] Medical Records Patient: GEOVANNY MEJÍA [address] : 1970 [place], [place] [address] Location: [phone] Unit #: [id number] Status Note/Update Alec Clemons MD Service Dt/Tm: [...] Alec Clemons MD> Report Signed by: on [facility] Work Phone: 1(911) 160-534010-20-2023 Progress note Author Craig Rodriguez [facility] September 12, 2023 10:37am Note Date/Time September 12, 2023 1 0:36am [facility] Medical Records Patient: GEOVANNY MEJÍA [address] : 1970 [place], [place] [address] Location: [facility] [phone] Unit #: [id number] Progress Note - Hospitalist Craig Rodriguez DO [...] negative to date Patient is on Dilaudid CAP MAKER due to her significant pain Her abdominal [...] Craig Rodriguez DO> Report Signed by: on [facility] Work Phone: 1(137) 154-504110-20-2023 Progress note Author Craig Rodriguez [facility] September 12, 2023 10:37am Note Date/Time September 12, 2023 1 0:36am [facility] Medical Records Patient: GEOVANNY MEJÍA [address] : 1970 [place], [place] [address] Location: [facility] [phone] Unit #: [id number] Progress Note - Hospitalist Craig Rodriguez DO [...] negative to date Patient is on Dilaudid CAP MAKER due to her significant pain Her abdominal [...] Craig Rodriguez DO> Report Signed by: on [facility] Work Phone: 1(200) [phone] Progress note Author Evelyne Pena [facility] September 11, 2023 12:20pm Note Date/Time September 11, 2023 1 2:20pm [facility] Case Management Patient: GEOVANNY MEJÍA. : 1970 [place], [place] [address] Location: [phone] Unit #: [id number] Case Management General Note Evelyne Pena RN Service Date: 09/11/23 Case Management General Note - Note Note: 09/11 Patient to d/c to [facility]. [address] [place] [address] [address]. [place], [place] [address] - Letter Delivered Was Position Statement Letter Delivered?: Yes Entered by: Evelyne Pena RN on 09/11/231218 Report Signed by: Evelyne Pena RN on 09/11/23 1220 <<Signature on File>> <Electronically signed by Evelyne Pena RN> Co-Signed by: on [facility] Work Phone: 1(215) 156-658010-19-2023 Progress note Author Evelyne Pena [facility] September 11, 2023 12:20pm Note Date/Time September 11, 2023 1 2:20pm [facility] Case Management Patient: GEOVANNY MEJÍA. : 1970 [place] [address] Location: [phone] Unit #: [id number] Case Management General Note Evelyne Pena RN Service Date: 09/11/23 Case Management General Note - Note Note: 09/11 Patient to d/c to [facility]. [address] [place] [address] [address] [place], [place] [address] - Letter Delivered Was Position Statement Letter Delivered?: Yes Entered by: Evelyne Pena RN on 09/11/231218 Report Signed by: Evelyne Pena RN on 09/11/23 1220 <<Signature on File>> <Electronically signed by Evelyne Pena RN> Co-Signed by: on [facility] Work Phone: 1(308) 248-713410-19-2023 Progress note Author Craig Rodriguez [facility] September 11, 2023 10:47am Note Date/Time September 11, 2023 1 0:47am [facility] Medical Records Patient: GEOVANNY MEJÍA. : 1970 [place] [address] Location: [phone] Unit #: [id number] Progress Note - Hospitalist Monzer Michael DO Service Dt/Tm: 09/11/23 1041 Assessment/Plan Assessment/Plan (1) Retroperitoneal abscess: Status: Acute Code(s): K68.19 - Other retroperitoneal abscess Plan: Left sided RP abscess on CT measuring 4.7 X2.6X 4.5 cm. on IV fluids and IV cefazolin IR placed abdominal abscess drain, purulent fluid draining from abscess. Blood cultures and abscess cultures are positive for MSSA. Patient is on Dilaudid CAP MAKER due to her significant pain Increased abdominal [...] having abdominal pain, and still on Dilaudid CAP MAKER pump. No nausea or vomiting, no fever [...] Rodriguez DO on 09/11/231040 Report Signed by: Craig Rodriguez DO on 09/11/231046 <<Signature on File>> <Electronically signed by Craig Rodriguez DO> Report Signed by: on [facility] Work Phone: 1(124) 558-566610-19-2023 Progress note Author Craig Rodriguez [facility] September 11, 2023 10:47am Note Date/Time September 11, 2023 1 0:47am [facility] Medical Records Patient: GEOVANNY MEJÍA [address] : 1970 [place], [place] [address] Location: [facility] [phone] Unit #: [id number] Progress Note - Hospitalist Craig Rodriguez DO Service Dt/Tm: 09/11/231040 Assessment/Plan Assessment/Plan (1) Retroperitoneal abscess: Status: Acute Code(s): K68.19 - Other retroperitoneal abscess Plan: Left sided RP abscess on CT measuring 4.7 X2.6X 4.5 cm. on IV fluids and IV cefazolin IR placed abdominal abscess drain, purulent fluid draining from abscess. Blood cultures and abscess cultures are positive for MSSA. Patient is on Dilaudid CAP MAKER due to her significant pain Increased abdominal [...] having abdominal pain, and still on Dilaudid CAP MAKER pump. No nausea or vomiting, no fever [...] Craig Rodriguez DO> Report Signed by: on [facility] Work Phone: 1(193) 542-648810-18-2023 Progress note Author Evelyne Pnea [facility] September 10, 2023 3:12pm Note Date/Time September 10, 2023 9 :23am [facility] Case Management Patient: GEOVANNY MEJÍA. : 1970 [place], [place] [address] Location: [address] [place] [address] Unit #: [id number] Case Management Daily Note Evelyne Pena RN Service Date: 09/10/23 Case Mgmt Daily Note - Plan of Care Toy Assembly Supervisor Agrees with Attending and Consult Plan: Yes - Patient Preferences & Goals What is the patient's preference?: Services to be Determined Recommended acute discharge goals: Services to be Determined - Hospital Stay Days Day 1 Comment: 09/08 Met with patient in the room. Patient is from [place]. She is up here to visit her sister. Patient reporting she is normally independent. Doesnot have a PCP. Patient would like to use [facility] OP Pharm for meds. Planning to have her cousin pick her up at d/c. Contact is her cousin Ursula. Denies having LW/dPOA. Toy Assembly Supervisor: Evelyne Pena RN Day 2 Comment: 09/09 Met with patient in the room. Patient asking to get up and move around. PT/OT to evde. S/p L ABD drain placement. Patient agreeable to [facility] for drain mgmt if needed. Reporting she will be going to [facility] at d/c to staywith her cousin Ursula. spoke with patients cousin Ursula via telephone who reports she is ok with [facility] coming to her home if patient would go there at d/c. Ursula reporting patient was homeless in [place] and recently move to [place] with [facility] [employer]. Toy Assembly Supervisor: Evelyne Pena, RN Day 3 Comment: 09/10 D/c needs pending medical course. Jr present. Dilaudid CAP MAKER. PT/OT. ID c/s. Therapy recs for IPR vs OP PT. Will follow to assist with d/c needs. Toy Assembly Supervisor: Evelyne Pena RN - Transportation Mode of [...] Signed by: Evelyne Pena RN on 09/10/23 1510 <<Signature on File>> <Electronically signed by Evelyne Pena RN> Co-Signed by: on [facility] Work Phone: 1(883) 687-568010-18-2023 Progress note Author Evelyne Pena [facility] September 10, 2023 3:12pm Note Date/Time September 10, 2023 9 :[address] [place] [address] Case Management Patient: GEOVANNY MEJÍA [address] : 1970 [place], [place] [address] Location: [facility] [phone] [id number] Management Daily Note Evelyne Pena RN Service Date: 09/10/23 Case Mgmt Daily Note - Plan of Care Toy Assembly Supervisor Agrees with Attending and Consult Plan: Yes - Patient Preferences & Goals What is the patient's preference?: Services to be Determined Recommended acute discharge goals: Services to be Determined - Hospital Stay Days Day 1 Comment: 09/08 Met with patient in the room. Patient is from [place]. She is up here to visit her sister. Patient reporting she is normally independent. Doesnot have a PCP. Patient would like to use [facility] OP Pharm for meds. Planning to have her cousin pick her up at d/c. Contact is her cousin Ursula. Denies having LW/dPOA. Toy Assembly Supervisor: Evelyne Pena, RN Day 2 Comment: 09/09 Met with patient in the room. Patient asking to get up and move around. [facility] S/p L ABD drain placement. Patient agreeable to [facility] for drain mgmt if needed. Reporting she will be going to [facility] at d/c to staywith her cousin Ursula. spoke with patients cousin Ursula via telephone who reports she is ok with [facility] coming to her home if patient would go there at d/c. Ursula reporting patient was homeless in [place] and recently move to [place] with faith [employer]. Toy Assembly Supervisor: Evelyne Pena, RN Day 3 Comment: 09/10 D/c needs pending medical course. rJ present. Dilaudid CAP MAKER. PT/OT. ID c/s. Therapy recs for IPR vs OP PT. Will follow to assist with d/c needs. Toy Assembly Supervisor: Evelyne Pena, RN - Transportation Mode of [...] by Evelyne Pena RN> Co-Signed by: on [facility] Work Phone: 1(908) 183-523910-18-2023 Progress note Author Craig Rodriguez [facility] September 10, 2023 12:40pm Note Date/Time September 10, 2023 1 2:33pm [facility] Medical Records Patient: GEOVANNY MEJÍA [address] : 1970 [place] [address] Location: [address] [place] [address] Unit #: [id number] Progress Note - Hospitalist Craig Rodriguez DO [...] positive for MSSA. Patient is on Dilaudid CAP MAKER due to her significant pain Vitals stable. [...] examined. She is currently on a dilaudid CAP MAKER pump and still having significant abdominal pain. [...] the EMR. 09/10/23 08:00 CT Abd/Pelvis W/Contrast 31709 Routine Microbiology: Microbiology 09/08/23 18:20 Blood,Venous Blood [...] Craig Rodriguez DO> Report Signed by: on [facility] Work Phone: 1(643) 339-570910-18-2023 Progress note Author Craig Rodriguez [facility] September 10, 2023 12:40pm Note Date/Time September 10, 2023 1 2:33pm [facility] Medical Records Patient: GEOVANNY MEJÍA [address] : 1970 [place], [place] [address] Location: [facility] [phone] Unit #: [id number] Progress Note - Hospitalist Craig Rodriguez DO [...] positive for MSSA. Patient is on Dilaudid CAP MAKER due to her significant pain Vitals stable. [...] examined. She is currently on a dilaudid CAP MAKER pump and still having significant abdominal pain. [...] the EMR. 09/10/23 08:00 CT Abd/Pelvis W/Contrast 72368 Routine Microbiology: Microbiology 09/08/23 18:20 Blood,Venous Blood [...] Craig Rodriguez DO> Report Signed by: on [facility] Work Phone: 1(179) 324-230510-17-2023 Progress note Author Evelyne Pena [facility] September 09, 2023 3:46pm Note Date/Time September 08, 2023 1 :56pm [facility] Case Management Patient: GEOVANNY MEJÍA. : 1970 [place], [place] [address] Location: [phone] Unit #: [id number] Case Management Admission Evelyne Pena RN Service Date: 09/08/23 Case Mgmt Admission/Disch Plan - Patient Preferences & Goals What is the patient's preference?: Services to be Determined Recommended acute discharge goals: Services to be Determined - Hospital Stay Day Day 1 Comment: 09/08 Met with patient in the room. Patient is from [place]. She is up here to visit her sister. Patient reporting she is normally independent. Doesnot have a PCP. Patient would like to use [facility] OP Pharm for meds. Planning to have her cousin pick her up at d/c. Contact is her cousin Ursula. Denies having LW/dPOA. Toy Assembly Supervisor: Evelyne Pena RN - Demographics Current Diagnosis(s): Intra abdominal abscess Information Given by: Patient Primary Insurance: [employer] Family/Caregiver Contact: Ursula Relationship: shankar Does the patient have VA services?: No Does the patient have a [facility] provider?: No - Readmission Information Was the patient readmitted within the past 30 days?: No Where was the patient admitted from?: Home Does Patient have any Services in Place?: No - Healthcare Decisions Code Status Per Patient Request (Full Code, DNRCC, DNRCCA): Full code Durable Power of Textile Designer for Health Care: Unknown State of [place] DNR Comfort Care: Unknown [place] DNR Comfort Care Arrest: Unknown - Mental Status Prior Mental Status: Alert and Oriented Current Mental Status: Alert and Oriented - Living Situation Home Situation: Lives Alone Home Type: Single Family Home Levels: 1 Stairs: Yes Does the patient drive?: Yes - Support System Support System: Friends - Skilled Days Has patient been in a halfway facility in past 60 days: No - [...] No If Yes to either question, notify Telegraph Service Rater.: No - Discharge Plan Discharge Plan Discussed [...] Entered by: Evelyne Pena RN on 09/08/23 3931 Report Signed by: Evelyne Pena RN on 09/09/23 6756 <<Signature on File>> <Electronically signed by Evelyne Pena RN> Co-Signed by: on [facility] Work Phone: 1(573) 950-794110-17-2023 Progress note Author Evelyne Pena [facility] September 09, 2023 3:46pm Note Date/Time September 08, 2023 1 :59pm [facility] Case Management Patient: GEOVANNY MEJÍA. : 1970 [place], [place] [address] Location: [address] [place] [address] Unit #: [id number] Social Determinants Evelyne Pena RN Service Date: [...] by Evelyne Pena RN> Co-Signed by: on [facility] Work Phone: [phone]) [phone] Progress note Author Evelyne Pena [facility] September 09, 2023 3:46pm Note Date/Time September 09, 2023 1 1:00am [facility] Case Management Patient: GEOVANYN MEJÍA. : 1970 [place] [address] Location: 5S [phone] [id number] Management Daily Note Evelyne Pena RN Service Date: 09/09/23 Case Mgmt Daily Note - Plan of Care Toy Assembly Supervisor Agrees with Attending and Consult Plan: Yes - Patient Preferences & Goals What is the patient's preference?: Services to be Determined Recommended acute discharge goals: Services to be Determined - Hospital Stay Days Day 1 Comment: 09/08 Met with patient in the room. Patient is from [place]. She is up here to visit her sister. Patient reporting she is normally independent. Doesnot have a PCP. Patient would like to use [facility] OP Pharm for meds. Planning to have her cousin pick her up at d/c. Contact is her cousin Ursula. Denies having LW/dPOA. Toy Assembly Supervisor: Evelyne Pena, RN Day 2 Comment: 09/09 Met with patient in the room. Patient asking to get up and move around. [facility] S/p L ABD drain placement. Patient agreeable to [facility] for drain mgmt if needed. Reporting she will be going to [facility] at d/c to staywith her cousin Ursula. spoke with patients cousin Ursula via telephone who reports she is ok with [facility] coming to her home if patient would go there at d/c. Ursula reporting patient was homeless in [place] and recently move to [place] with faith Amaya. Toy Assembly Supervisor: Evelyne Pena, RN - Transportation Mode of [...] Entered by: Evelyne Pena RN on 09/09/23 2708 Report Signed by: Evelyne Pena RN on 09/09/23 6741 <<Signature on File>> <Electronically signed by Evelyne Pena RN> Co-Signed by: on [facility] Work Phone: 1(527) 571-526510-17-2023 Progress note Author Evelyne Pena [facility] September 09, 2023 3:46pm Note Date/Time September 08, 2023 1 :56pm [facility] Case Management Patient: GEOVANNY MEJÍA. : 1970 [place], [place] [address] Location: [phone] Unit #: [id number] Case Management Admission Evelyne Pena RN Service Date: 09/08/23 Case Mgmt Admission/Disch Plan - Patient Preferences & Goals What is the patient's preference?: Services to be Determined Recommended acute discharge goals: Services to be Determined - Hospital Stay Day Day 1 Comment: 09/08 Met with patient in the room. Patient is from [place]. She is up here to visit her sister. Patient reporting she is normally independent. Doesnot have a PCP. Patient would like to use [facility] OP Pharm for meds. Planning to have her cousin pick her up at d/c. Contact is her cousin Ursula. Denies having LW/dPOA. Toy Assembly Supervisor: Evelyne Pena, RN - Demographics Current Diagnosis(s): Intra abdominal abscess Information Given by: Patient Primary Insurance: [employer] [facility] Family/Caregiver Contact: Ursula Relationship: shankar Does the patient have VA services?: No Does the patient have a [facility] provider?: No - Readmission Information Was the patient readmitted within the past 30 days?: No Where was the patient admitted from?: Home Does Patient have any Services in Place?: No - Healthcare Decisions Code Status Per Patient Request (Full Code, DNRCC, DNRCCA): Full code Durable Power of Textile Designer for Health Care: Unknown [place] of [place] DNR Comfort Care: Unknown [place] DNR Comfort Care Arrest: Unknown - Mental Status Prior Mental Status: Alert and Oriented Current Mental Status: Alert and Oriented - Living Situation Home Situation: Lives Alone Home Type: Single Family Home Levels: 1 Stairs: Yes Does the patient drive?: Yes - Support System Support System: Friends - Skilled Days Has patient been in a halfway facility in past 60 days: No - [...] No If Yes to either question, notify Telegraph Service Rater.: No - Discharge Plan Discharge Plan Discussed [...] Entered by: Evelyne Pena RN on 09/08/23 1354 Report Signed by: Evelyne Pena RN on 09/09/23 1546 <<Signature on File>> <Electronically signed by Evelyne Pena RN> Co-Signed by: on [facility] Work Phone: 1(967) 193-748610-17-2023 Progress note Author Evelyne Pena [facility] September 09, 2023 3:46pm Note Date/Time September 08, 2023 1 :59pm [facility] Case Management Patient: GEOVANNY MEJÍA. : 1970 [place], [place] [address] Location: [phone] Unit #: [id number] Social Determinants Evelyne Pena RN Service Date: [...] by Evelyne Pena RN> Co-Signed by: on [facility] Work Phone: [phone]) 512-144410-17-2023 Progress note Author Evelyne Pena [facility] September 09, 2023 3:46pm Note Date/Time September 09, 2023 1 1:00am [facility] Case Management Patient: GEOVANNY MEJÍA. : 1970 [place], [place] [address] Location: [address] [place] [address] Unit #: [id number] Case Management Daily Note Evelyne Pena RN Service Date: 09/09/23 Case Mgmt Daily Note - Plan of Care Toy Assembly Supervisor Agrees with Attending and Consult Plan: Yes - Patient Preferences & Goals What is the patient's preference?: Services to be Determined Recommended acute discharge goals: Services to be Determined - Hospital Stay Days Day 1 Comment: 09/08 Met with patient in the room. Patient is from [place]. She is up here to visit her sister. Patient reporting she is normally independent. Doesnot have a PCP. Patient would like to use [facility] OP Pharm for meds. Planning to have her cousin pick her up at d/c. Contact is her cousin Ursula. Denies having LW/dPOA. Toy Assembly Supervisor: Evelyne Pena, RN Day 2 Comment: 09/09 Met with patient in the room. Patient asking to get up and move around. PT/OT to eval. S/p L ABD drain placement. Patient agreeable to [facility] for drain mgmt if needed. Reporting she will be going to [facility] at d/c to staywith her cousin Ursula. CM spoke with patients cousin Ursula via telephone who reports she is ok with [facility] coming to her home if patient would go there at d/c. Ursula reporting patient was homeless in [place] and recently move to [place] with faith Amaya. Toy Assembly Supervisor: Evelyne Pena, RN - Transportation Mode of [...] by Evelyne Pena RN> Co-Signed by: on [facility] Work Phone: 1([phone]) 948-360910-17-2023 Progress note Author Craig Rodriguez [facility] September 09, 2023 12:41pm Note Date/Time September 09, 2023 1 0:53am [facility] Medical Records Patient: GEOVANNY MEJÍA. : 1970 [place], [place] [address] Location: [phone] Unit #: [id number] Progress Note - Hospitalist Craig Rodriguez DO [...] Craig Rodriguez DO> Report Signed by: on [facility] Work Phone: 1(199) 864-622110-17-2023 Progress note Author Craig Rodriguez [facility] September 09, 2023 12:41pm Note Date/Time September 09, 2023 1 0:53am [facility] Medical Records Patient: GEOVANNY MEJÍA [address] Suh. : 1970 [place] [address] Location: [address] [place] [address] Unit #: [id number] Progress Note - Hospitalist Craig Rodriguez DO [...] Craig Rodriguez DO> Report Signed by: on [facility] Work Phone: 1(310) 655-751410-16-2023 Progress note Author Charity Adames [facility] September 08, 2023 7:13pm Note Date/Time September 08, 2023 5 :11pm [facility] Medical Records Patient: GEOVANNY MEJÍA. : 1970 [place], [place] [address] Location: [phone] Unit #: [id number] Pharmacy Daily Note Charity Adames PharmD Service Dt/Tm: 09/08/23 1707 Pharmacy - Patient Information Patient Information: Name: [...] q12h Predicted AUC24: TBD mg-hr/L Next Level(s): 10/17 @ 0900 Notes: 09/08 Pt started on [...] by Charity Adames PharmD> Co-Signed by: on [facility] Work Phone: 1([phone]) 266-791510-16-2023 Progress note Author Charity Adames [facility] September 08, 2023 7:13pm Note Date/Time September 08, 2023 5 :11pm [facility] Medical Records Patient: GEOVANNY MEJÍA. : 1970 [place] [address] Location: [address] [place] [address] Unit #: [id number] Pharmacy Daily Note Charity Adames PharmD Service [...] by Charity Adames PharmD> Co-Signed by: on [facility] Work Phone: 1(264) 256-466210-16-2023 [facility] Patient: GEOVANNY MEJÍA. : 1970 [place], [place] [address] Location: [phone] Unit #: [id number] IR Pre Procedure Note Freddy Guevara MD Service Dt/Tm: 09/08/23 8065 Indication for Procedure: Please refer to the [...] 09/08/23 @ 14:51 by Bryant Epperson APRN, CHAIN LINK FENCE INSTALLER) Denies family history of No pertinent family [...] 09/08/23 1539 < > Report Signed by: [facility]10-16-2023 History and physical note Author Willy Lechuga [facility] September 08, 2023 2:48pm Note Date/Time September 08, 2023 1 :58pm [facility] Medical Records Patient: GEOVANNY MEJÍA [address] Su[address]. : 1970 [place], [place] [address] Location: 5S [phone] Unit #: [id number] History and Physical Willy BRAUN) Date of Entry Into Hospital: 09/08/23 Date of Service: 09/08/23 Time Seen: 13:54 Patient Information: Primary Care Provider: None Chief Complaint: INTRA ABDOMINAL ABCESS History Obtained From: Patient and EMR History of Present Illness: 53 old female with a past medical history of hypertension, no home medications on file, initially transferred from [facility] for possible intra-abdominal abscess. History and physical is limited due to no records available and patient was in pain at time of my clinical exam. As per EMR I did see that she had a left retroperitoneal fluid collection with moderate inflammation measuring4.7 X2.6X 4.5 cm with possible abscess formation. She was subsequently transferred to [facility] for general surgery consultation. On [...] History (Updated 09/08/23 @ 14:48 by Willy BRAUN)MD) HTN (hypertension) Social History Smoking Status: Former [...] sciatica, rightside Plan: As above. cc: [facility]) Ankush MEJÍA; None Dictated by: Willy PerezSIER[facility] CENTERAnika MEJÍA on 09/08/23 1351 Entered by: Willy PerezSIER[facility] CENTERMD Anika on 09/08/23 5826 Report Signed by: Willy PerezSI[facility]ENTERAnika Lechuga MD on 09/08/23 1448 <<Signature on File>> <Electronically signed by Willy Lechuga ([facility]) > Report Signed by: on [facility] Work Phone: 1(617) 726-220410-16-2023 [facility] 09-08-2023 [facility]10-[facility]-2023 History of Present illness Narrative* Aneta Valderrama MD - 08/28/2023 4:35 PM EDT Images from the original note were not included. Geovanny Mejía 1970 Impression/Plan: Problem List Items Addressed This Visit None Visit Diagnoses Spondylolisthesis of lumbar region - Primary Relevant Orders XR Lumbar Spine Standard with Flex/Ext 4+ Views Ambulatory Ref to [facility] (PT/OT/ST) Lumbar radiculopathy Relevant Orders XR Lumbar Spine Standard with Flex/Ext 4+ Views Ambulatory Ref to [facility] (PT/OT/ST) Patient's presentation may be in keeping with possible lumbar radiculopathy or neurogenic claudication. She has not optimized nonoperative care at this time, therefore referred her for 6 weeks of physical therapy and have given a home exercise program. Patient notes having had a recent MRI back in [place] approximately June 2023. My team will arrange [...] lower extremity symptoms. Patient is visiting from [place] and is staying with her sister in [place]. She was seen at [facility] ED on 08/06/2023 for back pain [...] Patient has had previous neck surgery in [facility] approximately 10 to 11 years ago [...] Reported as This note was generated by [employer] voice recognition software and as a result, grammatical or spelling errors may occur using this program. Aneta Valderrama MD Spine Surgery [facility] * Aura Patterson MA - 08/28/2023 3:30 PM EDT Review of Systems Constitutional: Positive for activity change. Musculoskeletal: Positive for back pain. Psychiatric/Behavioral: The patient is nervous/anxious. All other systems reviewed and are negative. * Lindsay Liu PA-C - 08/28/2023 3:10 PM EDT . documented in this [id number] Instructions* Patient Instructions* Aneta Valderrama MD - [...] include stationary bicycling, outdoor bicycling, an elliptical woodworking machinist, or swimming. Swimming is often the best [...] front of you at the same time. [id number] exercise Lie on your back with your [...] Log into your personal health record on [email or web address] and enter [email or web address] in the Education box to learn more about Low Back Pain: Exercises. Current as of: April 14, 2015 Content Version: 10.6 5798-1167 [employer]. Care instructions adapted under license by your healthcare professional. If you have questions about a medical condition or this instruction, always ask your healthcare professional. [employer] disclaims any warranty or liability for your use of this information. documented in [facility] note* Diagnosis Spondylolisthesis of lumbar region- Primary Lumbar radiculopathy Thoracic or lumbosacral neuritis or radiculitis, unspecified [facility]* Diagnosis Onset Date Resolution Status Abscess in epidural space of thoracic spine acute Asthma acute Back pain acute Bacteremia acute Electrolyte imbalance acute HTN (hypertension) acute Hypocalcemia acute Hyponatremia acute Intra-abdominal abscess acut e Normocytic normochromic anemia acute Retroperitoneal abscess acut e Sciatica acute Severe protein-calorie malnutrition acute Spinal epidural abscess acut e Staphylococcus aureus infection acute Staphylococcus aureus septicemia acute [facility] Work Phone: Evaluation note* Diagnosis Bacteremia [facility] Diagnosis Methicillin susceptible Staphylococcus aureus infection as the cause of diseases classified elsewhere Methicillin susceptible Staphylococcus aureus infection as the cause of diseases classified elsewhere [facility] Diagnosis Anxiety- Primary Anxiety state, [...] [facility] Diagnosis Severe pain- Primary Chronic pain syndrome [facility] [...] [facility] Diagnosis Anxiety Anxiety state, unspecified [facility] Diagnosis Chronic pain syndrome [facility] Diagnosis Chronic pain syndrome- Primary [facility] Diagnosis Onset Date Resolution Status Admit Date Multilevel degenerative disc disease acute August 08, 2025 8:53am Osteomyelitis acute July 252024 8:53am Polyneuropathy acute August 08, 2025 8:53am [facility] Work Phone: Hospital course Narrative No data available for this section [facility] Additional Instructions Activity: As tolerated Diet: Nothing by [facility] Work Phone: Hospital Discharge instructions No data available for this section [facility] Discharge instructionsAmbulatory Orders* Referral to Pain Management Time Frame: 08/08/25, Location: None Selected [facility] Work Phone: Progress note No data available for this section [facility] Reason for Referral Specialty Diagnoses / Procedures Referred By Contac t Referred To Contact Physical Therapy Diagnoses Spondylolisthesis of lumbar region Lumbar radiculopathy Aneta Valderrama MD [address] [place] [address] Rehab Facility - Other Referral ID Status Reason Start Date Expiration Date Visits Requested Visits Authorized [id number] Authorized Patient Preference 08/30/2023 08/29/2024 1 1 Specialty Diagnoses / Procedures Referred By Contac t Referred To Contact Diagnoses Bacteremia Procedures MRI SPINE CERVICAL WITH AND WITHOUT CONTRAST MA MRI, CERV SPINE COMBO Lori Fernando MD [address] [place] [phone] Referral ID Status Reason Start Date Expiration Date V isits Requested Visits Authorized [id number] Pending Review 10/01/2023 10/25/2024 1 1 Summary Purpose Family History No Family History Records FoundNo Family History Records FoundNo Family History Records Found No data available for this section No Family History Records FoundNo Family History Records FoundNo Family History Records FoundNo Family History Records FoundNo Family History Records Found Advance Directives Advance Directive Response Recorded Date/ Time [facility] DNR Comfort Care Unknown O ctober 2022 11:36am [facility] DNR Comfort Care Arrest Unknown September 11, 2023 11:36am Living Will Unknown September 11 11:36am Durable Power of Textile Designer for Health Care Unknow n September 11, 2023 11:36am Advance Directive Response Recorded Date/ Time [facility] DNR Comfort Care Unknown O ctober 2022 10:36am [facility] DNR Comfort Care Arrest Unknown September 11, 2023 10:36am Living Will Unknown September 11 10:36am Durable Power of Textile Designer for Health Care Unknow n September 11, 2023 10:36am Documents on File Type Date Recorded Patient Senior Client Advisor Expl anation HealthCare Power of Textile Designer 09/19/2023 2:50 PM Ricky [email or web address] Latest Code Status on File Code Status Date Activated Date Inactivated Comments Full Code 09/19/2023 11:55 AM Healthcare Agents on File Name Relationship Healthcare Agent Relationshi p Communication Zakiya Bondsley Child Health Care Agent Aiden Trimble [facility] Ca re Agent Healthcare Agents on File Name Relationship Healthcare Agent Relationshi p Communication Zakiya Fannin Child Health Care Agent Aiden Masterson [facility] Ca re Agent Healthcare Agents on File Name Relationship Healthcare Agent Relationshi p Communication Zakiya Fannin Child Health Care Agent Aiden Masterson [facility] Ca re Agent Advance Directive Response Recorded Date/ Time Advance Directives No May 09 12:04pm Chief Complaint and Reason for Visit Chief Complaint INTRA ABDOMINAL ABCE SS Reason for Visit Abscess in epidural space of thoracic spine Asthma Back pain Bacteremia Electrolyte imbalance HTN (hypertension) Hypocalcemia Hyponatremia Intra-abdominal abscess Normocytic normochromic anemia Retroperitoneal abscess Sciatica Severe protein-calorie malnutrition Spinal epidural abscess Staphylococcus aureus infection Staphylococcus aureus septicemia Reason for Visit Admit Date Multilevel degenerative disc disease Sep tember 2024 8:53am Osteomyelitis August 08, 2025 8:53am Polyneuropathy August 08, 2025 8:53am Additional Source Comments Reason for Visit (unrecogniz ed section and content) Reason Comments Pain New patient Lumbar p ain, ER with x-rays 08-06-23 @ [facility], [place] 10-12-[address] [facility], [place], called and can not push thru, typed report under ecare. Specialty Diagnoses / Procedures Referred By Abdullahi t Referred To Contact Diagnoses Bacteremia Procedures MRI SPINE LUMBAR WITH AND WITHOUT CONTRAST MA MRI, LUMBAR SPINE Lori Frost MD [address] [place] [address] Referral ID Status Reason Start Date Expiration Date V isits Requested Visits Authorized [id number] Pending Review 10/01/2023 10/25/2024 1 1 Specialty Diagnoses / Procedures Referred By Contac t Referred To Contact Diagnoses Bacteremia Procedures MRI SPINE THORACIC WITH AND WITHOUT CONTRAST MA MRI, DORSAL SPINE Lori Frost MD [address] [place] [address] Referral ID Status Reason Start Date Expiration Date V isits Requested Visits Authorized [id number] Pending Review 10/01/2023 10/25/2024 1 1 Specialty Diagnoses / Procedures Referred By Contac t Referred To Contact Diagnoses Bacteremia Procedures MRI SPINE CERVICAL WITH AND WITHOUT CONTRAST MA MRI, CERV SPINE Lori Frost MD [address] [address] Referral ID Status Reason Start Date Expiration Date V isits Requested Visits Authorized [id number] Pending Review 10/01/2023 10/25/2024 1 1 Specialty Diagnoses / Procedures Referred By Contac t Referred To Contact Diagnoses Methicillin susceptible Staphylococcus aureus infection as the cause of diseases classified elsewhere Methicillin susceptible Staphylococcus aureus infection as the cause of diseases classified elsewhere [B95.61] Procedures MA REMOVAL TUNNELED CV CATH REMOVAL CVC TUNNELED Jaron Adan MD [address] [place] [address] [facility] [address] [place] [address] Referral ID Status Reason Start Date Expiration Date Visits Re quested Visits Authorized [id number] 1 1 Care Teams (unrecognized sec tion and content) Dice Spotter Relationship Specialty Start Date End Date System, [...] Valeriy Cantu Jr, DO Other Provider Active Dice Spotter Relationship Specialty Start Date End Date Aneta Valderrama MD [address] [place] [address] Orthopaedic Surgery 09/19/23 Conor Fenton [facility],PharmD Pharmacist Infectious Disease 10/02/23 11/21/23 Dice Spotter Relationship Specialty Start Date End Date Aneta Valderrama MD [address] [place] [address] Orthopaedic Surgery 09/19/23 Conor Fenton RPh,PharmD Pharmacist Infectious Disease 10/02/23 11/21/23 Dice Spotter Relationship Specialty Start Date End Date Aneta Valderrama MD [address] [place] [address] Orthopaedic Surgery 09/19/23 Dice Spotter Relationship Specialty Start Date End Date Ni Ochoa DO [address] [place] [id number] Referring Physician Neurology 03/10/24 Dice Spotter Relationship Specialty Start Date End Date Ni Ochoa DO [address] [id number] Referring Physician Neurology 03/10/24 Dice Spotter Relationship Specialty Start Date End Date Ni Ochoa DO [address] [address] Referring Physician Neurology 03/10/24 Dice Spotter Relationship Specialty Start Date End Date Ni Ochoa DO [address] [address] Referring Physician Neurology 03/10/24 Dice Spotter Relationship Specialty Start Date End Date Ni Ochoa DO [address] [place] [id number] Referring Physician Neurology 03/10/24 Dice Spotter Relationship Specialty Start Date End Date Ni Ochoa DO [address] [place] [id number] Referring Physician Neurology 03/10/24 Dice Spotter Relationship Specialty Start Date End Date Ni Ochoa DO [address] [place] [id number] Referring Physician Neurology 03/10/24 Dice Spotter Relationship Specialty Start Date End Date Ni Ochoa DO [address] [place] [id number] Referring Physician Neurology 03/10/24 Dice Spotter Relationship Specialty Start Date End Date Ni Ochoa DO [address] [place] [id number] Referring Physician Neurology 03/10/24 Dice Spotter Relationship Specialty Start Date End Date Ni Ochoa DO [address] [address] Referring Physician Neurology 03/10/24 Dice Spotter Relationship Specialty Start Date End Date Ni Ochoa DO [address] [address] Referring Physician Neurology 03/10/24 Dice Spotter Relationship Specialty Start Date End Date Demetri Liu MD [address] [facility] [address] [place] [address] PCP - ACO Reach 12/31/24 Ni Ochoa DO [address] [place] [id number] Referring Physician Neurology 03/10/24 Dice Spotter Relationship Specialty Start Date End Date Demetri Liu MD [address] [facility] [address] [place] [address] PCP - ACO Reach 12/31/24 Ni Ochoa DO [address] [place] [id number] Referring Physician Neurology 03/10/24 Dice Spotter Relationship Specialty Start Date End Date Demetri Liu MD [address] [facility] [address] [place] [address] PCP - ACO Reach 12/31/24 Ni Ochoa DO [address] [place] [id number] Referring Physician Neurology 03/10/24 Dice Spotter Relationship Specialty Start Date End Date Demetri Liu MD [address] [facility] [address] [place] [address] PCP - ACO Reach 12/31/24 Ni Ochoa DO [address] [place] [id number] Referring Physician Neurology 03/10/24 Dice Spotter Relationship Specialty Start Date End Date Demetri Liu MD [address] [place] [address] [place] [address] PCP - ACO Reach 12/31/24 Ni Ochoa DO Referring Physician Neurology 03/10/24 Dice Spotter Relationship Specialty Start Date End Date Demetri Liu MD [address] [place] [address] [place] [address] PCP - ACO Reach 12/31/24 Ni Ochoa DO [address] [place] [id number] Referring Physician Neurology 03/10/24 Dice Spotter Relationship Specialty Start Date End Date Demetri Liu MD [address] [place] [address] [place] [address] PCP - ACO Reach 12/31/24 Ni Ochoa DO [address] [place] [id number] Referring Physician Neurology 03/10/24 Dice Spotter Relationship Specialty Start Date End Date Demetri Liu MD [address] [facility] [address] [place] [address] PCP - ACO Reach 12/31/24 Ni Ochoa DO [address] [place] [id number] Referring Physician Neurology 03/10/24 Dice Spotter Relationship Specialty Start Date End Date Demetri Liu MD [address] [place] [address] [place] [address] PCP - ACO Reach 12/31/24 Ni Ochoa DO [address] [place] [address] Referring Physician Neurology 03/10/24 Team Status: Active Member Role Status Dates NON STAFF Primary Care Provider Active Team Status: Inactive Member Role Status Dates Ni Ochoa DO Attending Provider Active Start: August 08, 2025 End: August 08, 2025 NON STAFF Primary Care Provider Active Start: August 08, 2025 End: August 08, 2025 INFORMATION SOURCE (unrecogn ized section and content) DATE CREATED AUTHOR 09/01/2023 [facility] DATE CREATED AUTHOR AUTHOR'S ORGANIZ ATION 10/06/2023 [facility] DATE CREATED AUTHOR AUTHOR'S ORGANIZ ATION 10/25/2023 [facility] DATE CREATED AUTHOR AUTHOR'S ORGANIZ ATION 03/26/2024 [facility] EPIC DATE CREATED AUTHOR AUTHOR'S ORGANIZ ATION 04/17/2024 [facility] DATE CREATED AUTHOR AUTHOR'S ORGANIZ ATION 05/06/2024 [facility] DATE CREATED AUTHOR AUTHOR'S ORGANIZ ATION 10/15/2024 [facility] DATE CREATED AUTHOR AUTHOR'S ORGANIZ ATION 07/04/2025 [facility] PRN Active and Recently Administ ered Medications (unrecognized section and content) Medication Order 12/22/2023 12/23/2023 12/24/2023 Lidocaine 1% (PF) (XYLOCAINE MPF) 1 % injection (COMPLETED) ONCE NEEDED, 1 dose, Starting on Fri12/24/23 at 1115, Until Fri12/24/23 at 1115, Intra-op/Intra-Proc 1115 (Given - Provid er: LAVELLE Ponce) Goals (unrecognized section and content) Goals may be documented in a n alternate section FOR RECORDS PERTAINING TO PATIENTS WHO ARE [...] BE BASED ON THE PRIMARY CLINICAL RECORDS. [facility]. provides no warranty or guarantee of the accuracy or completeness of information in this document.
== END 2025-08-26 08:54 | disposition home or self-care (01) ==
PROVIDERS: PCP Family Medicine; Visit Provider Nurse Practitioner Family
DX: M46.24 Osteomyelitis of vertebra, thoracic region (principal); F45.42 Pain disorder with related psychological factors; G89.4 Chronic pain syndrome; M43.22 Fusion of spine, cervical region; M46.22 Osteomyelitis of vertebra, cervical region; M51.369 Other intervertebral disc degeneration, lumbar region without mention of lumbar back pain or lower extremity pain
CPT/HCPCS: 72158; A9575